=== PATIENT | female | born 1945 | race Caucasian/White ===

== ENCOUNTER → 2017-11-28 10:08 | Outpatient (CLI) | payer MEDICARE, SELFPAY ==
[2017-11-28 13:47] LABS: Albumin, Serum 3.5 g/dL (3.2-5.0); BUN 27 mg/dL (7-18); Chloride 106 mmol/L (98-107); Creatinine, Serum 1.35 mg/dL (0.55-1.02); EST Glomerular Filtration Rate 41 mL/min (>60); Est Glom Filt Rate - Afr Amer 50 mL/min (>60); Glucose 211 mg/dL (74-106); Phosphorus 3.3 mg/dL (2.5-4.9); Potassium 4.2 mmol/L (3.5-5.1); Sodium Level 141 mmol/L (136-145)
[2017-11-28 14:30] LABS: Protein, Urine (Random) 6.1 mg/dL (<11.9); Protein:Creat Ratio 99 mg/g CRE (0-200)
== END ==
PROVIDERS: Family Provider Internal Medicine; PCP Internal Medicine; Visit Provider Internal Medicine Nephrology
DX: E55.9 Vitamin D deficiency, unspecified (principal); I10 Essential (primary) hypertension; R06.02 Shortness of breath; N17.9 Acute kidney failure, unspecified
CPT/HCPCS: 36415; 80069; 82570; 84156

== ENCOUNTER → 2017-12-21 12:50 | Outpatient (CLI) | payer MEDICARE, SELFPAY ==
--- NOTE | 2017-12-21 13:00 | PCM.CR.ITP ---
Exercise - Initial Assessment - Visit Date of Eval: 12/21/17 - Initial Eval - Stages of Change Stages of Change:: Contemplate - Exercise Prescription Mode:: Biodyne, Rower, Airdyne, NuStep, Arm Ergometer Angina with exercise?: Yes Target Heart Rate:: 92-100 - Hypertension Do any of the following apply?: Yes Resting Blood Pressure:: 100/58 - Intervention Home Exercise/Activity Goal:: Sitting Time <3 hrs/day - Education Goals:: Warm-up, RPE JIGAR Scale, S/S, Safe Exercise, Self-Monitoring - Exercise Program Goals Exercise Program Goals: Aerobic Activity >30 min, B/P <140/90 Nutrition - Initial Assessment - Program Goals Nutrition Program Goals: LDL <70. Total Cholesterol <200. HDL >45. Triglycerides <150. HgbA1C <7%. BMI <25 - Visit Date of Assessment:: 12/21/17 - Stages of Change Stages of Change:: Contemplate - Diabetes Diabetes:: Yes - Weight Management Height: 1.56 m Weight:: 113.285 kg Total Score:: 3 - Intervention Referral to dietitian:: No - pt is currently seeing a line service person Referral to Diabetic Clinic:: No Will attend diet classes:: Yes - Education Gave educational materials for:: Signs & symptoms of hypoglycemia, Signs & symptoms of hyperglycemia, Relate diabetes to coronary artery disease, Healthy eating Nutrition - 30-Day Assessment - Program Goals Nutrition Program Goals: LDL <70. Total Cholesterol <200. HDL >45. Triglycerides <150. HgbA1C <7%. BMI <25 - Diabetes Diabetes:: Yes Insulin: No Nutrition - 60-Day Assessment - Program Goals Nutrition Program Goals: LDL <70. Total Cholesterol <200. HDL >45. Triglycerides <150. HgbA1C <7%. BMI <25 - Diabetes Diabetes:: Yes Insulin: No Nutrition - 90-Day Assessment - Program Goals Nutrition Program Goals: LDL <70. Total Cholesterol <200. HDL >45. Triglycerides <150. HgbA1C <7%. BMI <25 - Diabetes Diabetes:: Yes Insulin: No Nutrition - Final Assessment - Program Goals Nutrition Program Goals: LDL <70. Total Cholesterol <200. HDL >45. Triglycerides <150. HgbA1C <7%. BMI <25 - Diabetes Diabetes:: Yes Insulin: No Tobacco - Initial Assessment - Program Goals Tobacco Program Goals: Complete smoking cessation. Attend education classes. Improve Knowledge Test score - Stage of Change Stages of Change:: Contemplate - Learning Barriers Total Score:: 10 - Family Support Do you have family support?: Yes - Tobacco Use How long ago did you quit using tobacco products?: Greater than or equal to 6 months ago Do you use smokeless tobacco?: No - Intervention Smoking Cessation Referral:: No Individual Education/Counseling:: No - Education Gave educational material for:: Tobacco triggers, Coronary artery disease, Risk factors, Sexuality, Medical compliance, Cardiac A&P, Angina signs & symptoms Psychosocial - Initial Assess - Target Goals Target Goals: Assess presence or absence of depression. Using a valid screening tool, maximizes coping skills. Positive support system - Stages of Change Stages of Change:: Contemplate - Psychosocial Test Tool Used:: HANDS Depression Questionnaire Total Mood Screening Score:: 10 Self-Efficacy Score:: 5 - Intervention PS - Interventions: Yes Attend Stress Management Classes, Yes Uses Stress Management Skills, No Referral to Mental Health - Pt is seeking counseling, No Referral to [facility] Case Management, No Referral to Physician - Education Gave educational materials for:: Coping techniques, Signs & symptoms of depression, Stress management, Relaxation techniques - Assistive Devices Assistive Devices:: None Fall Risk Assessed:: Yes Patient Health Questionnaire Initial Assessment 1. Little interest or pleasure in doing things: Not at all 2. Feeling down, depressed, or hopeless: More than half the days 3. Trouble falling or staying asleep, or sleeping too much: Nearly every day 4. Feeling tired or having little energy: Nearly every day 5. Poor appetite or overeating: More than half the days 6. Feeling bad about yourself -- or that you are a failure or have let yourself or your family down: Not at all 7. Trouble concentrating on things, such as reading the newspaper or watching television: Not at all 8. Moving or speaking so slowly that other people could have noticed. Or the opposite - being so fidgety or restless that you have been moving around a lot more than usual: Not at all 9. Thoughts that you would be better off , or of hurting yourself in some way: Not at all How difficult have these problems made it for you to do your work, take care of things at home, or get along with other people?: Not difficult at all Total Score: 10 Knowledge Test - Check your knowledge Initial The #1 cause of in the [place] each year is:: Heart disease Which of the following is a common treatment for heart disease?: All of the above The arteries that feed the heart are called:: Coronary arteries HDL cholesterol is known as the good cholesterol.: True What disease increases your risk for heart disease?: Diabetes What food product raises blood cholesterol level the most?: Saturated fat The bad cholesterol in the blood is called:: LDL Hypertension is another word for:: High blood pressure A blood pressure reading of 148/88 is considered normal.: False Exercise will only benefit your health when your heart rate reaches a target level.: False Total Score:: 10 Self-Efficacy Initial Assessment We would like to know how confident you are in doing certain activities. Please select your confidence level for:: Select your confidence level for the following using the scale 1-10 where 1 is not at all confident and 10 is totally confident. Your score is the average of all 6 responses. Fatigue: How confident are you that you can keep the fatigue caused by your disease from interfering with the things you want to do? Select Number: 1 Physical Discomfort or Pain: How confident are you that you can keep the physical discomfort or pain of your disease from interfering with the things you want to do? Select Number: 9 Emotional Distress: How confident are you that you can keep the emotional distress caused by your disease from interfering with the things you want to do? Select Number: 2 Other Symptoms or Health Problems: How confident are you that you can keep other symptoms or health problems from interfering with the things you want to do? Select Number: 8 Different Tasks and Activities: How confident are you that you can do the different tasks and activities needed to manage your health condition so as to reduce your need to see a doctor? Select Number: 5 Medication: How confident are you that you can do things other than just taking medication to reduce how much your illness affects your everyday life? Select Number: 8 Total Score:: 5 Nutrition Survey - Nutrition Survey Instructions Scoring Instructions: Scoring is as follows: Yes = 1 points. No = 0 point. Patient score that is >/=12 is considered to be at potential nutritional risk and could benefit from a referral to a registered dietitian. - Nutrition Survey Initial Have you lost >10 lbs over the past 2 months without trying?: No Are you following a special diet at home for diabetes, low fat, or low salt?: Yes Are you interested in meeting with a dietitian for help understanding your diet?: Yes Do you eat less than 3 meals a day?: No Do you eat fatty meats (saenz, sausage, ribs, etc), fried foods, desserts, large amounts of salad dressings, margarine, butter, or cheese most days?: No Do you have food allergies? [Enter types in comment field]: No Do you eat in restaurants more than 3 times a week?: No Do you season food with salt, seasoning salt, or garlic salt?: No Do you used canned, boxed, frozen meals, or soups, seasoning packets?: Yes Total Score:: 3 Cardiac Rehabilitation Goals - Cardiac Rehab Goals Cardiac Rehabilitation Goals: 1. Maintain the individual as the primary focus of care. 2. To improve the patient's quality of life. 3. Identification of cardiac risk factors and provide cardiac risk factor management. 4. Enhance the psychosocial status of the patient. 5. Reconditioning enough to allow the patient to resume customary activities. 6. Control symptoms of cardiac disease - Scale Scale for measuring improvement of personal goals: Enter appropriate number in Comments. 2 = Unchanged. 3 = Slightly Better. 4 = Moderate Improvement. 5 = Met my Goal Initial Assessment Personal Goals: 30-day Re-assessment: Improve management of stress and emotions, Improve knowledge of cardiac disease, Improve muscle strength and endurance, Improve diet and eating habits (eat healthier), Control risk factors (learn risk factor modification), Other goal: - walking more
--- NOTE | 2017-12-21 13:00 | PCM.CR.HP2 ---
CR - History & Physical - General Arrival date:: 12/21/17 Arrival time:: 13:01 Date of Referral:: 09/14/17 Date of CR Evaluation:: 12/21/17 Referring Physician: Dr. Mike Go Primary Diagnosis: Current stable angina 09/14/2017 - History of Present Cardiac Event Onset Date: Enter Onset Date of cardiac illnesses in Comment field below Current stable Angina Pectoris:: Yes Coronary Artery Bypass Graft:: No Heart valve replacement or repair:: No - Medications Home Medications: Ambulatory Orders Medication Instructions Recorded Acetaminophen [Tylenol] 650 mg PO Q4H PRN PRN 08/22/14 Ascorbic Acid [Vitamin C] 500 mg PO BIDCM 08/22/14 Aspirin [Aspirin, Baby] 81 mg PO DAILY@0800 08/22/14 DiphenhydrAMINE [Benadryl] 25 mg PO TID PRN PRN 08/22/14 Fish Oil/Dha/Epa [Fish Oil 1,200 1 each PO TID 08/22/14 mg Fish Oil] Fluticasone 0.05% [Flonase Nasal 2 spray NASAL DAILY 08/22/14 [place]] Gabapentin [Neurontin] 600 mg PO BIDCM 08/22/14 Glimepiride [Amaryl] 1 mg PO DAILY PRN 08/22/14 Glimepiride [Amaryl] 2 mg PO QHS PRN 08/22/14 Levothyroxine [Synthroid] 175 mcg PO DAILY 08/22/14 Liraglutide [Victoza] 0.6 mg SQ DAILY 08/22/14 Metformin HCl [Glucophage] 1,000 mg PO BREAKFAST 08/22/14 Metformin HCl [Glucophage] 500 mg PO DINNER 08/22/14 Metoprolol Tartrate [Lopressor 25 mg PO BID 08/22/14 (beta laura)] Multivitamins,Ther W-Minerals 1 tablet PO DAILY 08/22/14 [Multivitamin With Minerals] Niacin [Slo-Niacin] 250 mg PO BID 08/22/14 Nitroglycerin [Nitrostat] 0.4 mg SUBLINGUAL Q5M PRN 08/22/14 Furosemide [Lasix] 40 mg PO BREAKFAST 08/23/14 Metformin(XR) [Glucophage Xr] 500 mg PO QHS 08/23/14 Oxycodone HCl/Acetaminophen 1 - 2 tablet PO Q4H PRN PRN #30 08/27/14 [Percocet 5-325] tablet Ciprofloxacin [Cipro] 250 mg PO BID 09/14/14 - Allergies Allergies/Adverse Reactions: Allergies adhesive Allergy (Verified 09/14/14 18:52) Hives cephalexin monohydrate [From Keflex] Allergy (Verified 09/14/14 18:52) Hives ketorolac tromethamine [From Toradol] Allergy (Verified 09/14/14 18:52) Hives nickel [Nickel] Allergy (Verified 09/14/14 18:52) Other Tpadavh-Mvz-Fhr Reductase Inhibitor Adverse Reaction (Verified 09/14/14 18:52) Other paladium Allergy (Uncoded 09/14/14 18:52) Other - Sleep Disorder Evaluation Hx of Sleep Apnea: Yes Do you snore loudly (louder than talking or can be heard through closed doors)?: Yes - Pt uses machine Do you often feel tired/ fatigued/ sleepy during daytime?: No Has anyone observed you stop breathing during sleep?: Yes History of Hypertension (for STOP score): Yes STOP Results: Positive Pt uses machine Advanced Directives - Advanced Directives Power of Fire Control Mechanic: No Living Will: No Advance Directives Information Provided: No Advance Directives on File: No DNR Order?:: No - MOLST See MOLST form: No Past Medical History - Past Surgical History Surgical History: appendectomy, cholecystectomy, herniorrhaphy, hysterectomy, total knee arthroplasty - right in past, left on 08/18/14. Social History - Smoking History Smoking Status: Former smoker Packs Smoked per Day: 3 Hx Smoking Cessation Date: 1992 Hx Tobacco Use: Yes Hx Smoking Exposure: Yes - Alcohol Use Alcohol Usage: No - Substance Abuse Hx Substance Use: No - Occupation Occupation (List type of work in comments):: Retired - Hobbies, Recreation, Social Activities Hobbies: Other - arts and crafts, photography, travel Recreational Activities: I am able to engage in all my recreational activities Social Environment - Status Marital Status: - Current Living Arrangements Living Environment:: Spouse - Children How many children do you have?: 1 Do any of your children live nearby?: Yes - Safety Do you feel safe in your surroundings?: Yes - Assistance Do you need any assistance at home?: none Review of Systems - Review of Systems Hints: Right click = Denies ([place]). Left click = Reports ([place]) Review of Present Symptoms: Reports: Shortness of Breath at Rest, Angina, Fatigue, Appetite - Normal, Sleep - Normal. Denies: Shortness of Breath with Exertion, PVD, Operative Discomfort, Wound Healing, Dizziness/Lightheadedness, Heart Arrhythmia/Irregularities, Appetite - Special Diet, Sexual Changes - Pain Is Patient Pain Free?: No Pain Location: chest Pain Level: 10 Risk Factor Assessment - Chief Complaint Chief Complaint: CP, SOB - Vital Signs Pulse Ox: 94 Blood Pressure: 100/58 - Pulse Pulse Rate: 90 Pulse Rhythm: Regular - Hypertension Blood Pressure Sitting - Left Arm: 100/58 - Stress Stress: Recent - Diabetes Diabetic History: Type II Nutrition Referral for Diabetes: No - Obesity Height: 1.56 m Weight:: 113.285 kg Weight in Pounds: 249.8 lbs Body Mass Index (BMI): 46.4 Nutritional Referral for Obesity: No - Pt is currently seeing a food processor - Physical Inactivity Physical Inactivity: None Exercise Limitations: bad low back - Risk Stratification Risk Guidelines: Moderate Risk: Risk Factor for Smoking, Risk Factor for Dyslipidemia, Risk Factor for Sedentary Lifestyle, Highest Risk: Risk Factor for Diabetes, Risk Factor for Obesity, Risk Factor for Hypertension, Risk Factor for Depression - For Smoking Smoking Risk Guidelines: Smoking Low Risk: None or quit greater than 6 months ago. Smoking Moderate Risk: Smoker or quit 6 months or less ago. Smoking High Risk: Smoker - For Dyslipidemia Dyslipidemia Risk Guidelines: Low Risk: Moderate Risk: High Risk: 15-25% fat 25.1-29% fat >/= 30% fat. <7% sat fat 7-9% sat fat >9% sat fat. <150 mg chol 150-299 mg chol >/= 300 mg chol. LDL <100 LDL 100-129 LDL >/= 130. Chol/HDL ratio <5.0 Chol/HDL ratio 5.0-6.0 Chol/HDL ratio >6.0. Triglycerides <100 Triglycerides 100-149 Triglycerides >/= 150 - For Diabetes Mellitus Diabetes Risk Guidelines: Diabetes Low Risk: HgA1c <6.5% and/or FBG <120. Diabetes Moderate Risk: HgA1c 6.6-7.9% and/or FBG 120-180. Diabetes High Risk: HgA1c >/= 8% and/or FBG >180 - For Obesity/Overweight Obesity/Overweight Risk Guidelines: Obesity Low Risk: BMI <25.0. Obesity Moderate Risk: BMI 25-29.9. Obesity High Risk: BMI >/= 30.0 - For Hypertension Hypertension Risk Guidelines: Hypertension Low Risk: Systolic <120 and Diastolic <80. Hypertension Moderate Risk: Systolic 120-139 and Diastolic 80-89. Hypertension High Risk: Systolic >/= 140 and Diastolic >/= 90 - For Sedentary Lifestyle Sedentary Lifestyle Risk Guidelines: Sedentary Lifestyle Low Risk: >/= 1,500 kcal/week. Sedentary Lifestyle Moderate Risk: 700-1,499 kcal/week. Sedentary Lifestyle High Risk: < 700 kcal/week - For Depression Depression Risk Guidelines: Depression Low Risk: Not clinically depressed. Depression Moderate Risk: Mildly depressed. Depression High Risk: Clinically depressed Motivation - Motivation to Participate On a scale of 1 to 10, how prepared are you to commit to attending program?: 9 What do you see as barriers to successfully being able to complete the program?: pain What do you see as the benefits of succesfully completing the program? In other words, what do you hope to get out of participating in the program?: better cardiac health, mental stability Are there issues you are dealing with that will interfere with completing the program?: depression Do you have a spouse or signficant other, family or friends who will help support you to complete the program?: yes
--- NOTE | 2017-12-21 13:13 | CR.HP_ITS ---
CR - History & Physical - General Arrival date:: 12/21/17 Arrival time:: 13:01 Date of Referral:: 09/14/17 Date of CR Evaluation:: 12/21/17 Referring Physician: Dr. Mike Go Primary Diagnosis: Current stable angina 09/14/2017 - History of Present Cardiac Event Onset Date: Enter Onset Date of cardiac illnesses in Comment field below Current stable Angina Pectoris:: Yes Coronary Artery Bypass Graft:: No Heart valve replacement or repair:: No - Medications Home Medications: Ambulatory Orders Medication Instructions Recorded Acetaminophen [Tylenol] 650 mg PO Q4H PRN PRN 08/22/14 Ascorbic Acid [Vitamin C] 500 mg PO BIDCM 08/22/14 Aspirin [Aspirin, Baby] 81 mg PO DAILY@0800 08/22/14 DiphenhydrAMINE [Benadryl] 25 mg PO TID PRN PRN 08/22/14 Fish Oil/Dha/Epa [Fish Oil 1,200 1 each PO TID 08/22/14 mg Fish Oil] Fluticasone 0.05% [Flonase Nasal 2 spray NASAL DAILY 08/22/14 [place]] Gabapentin [Neurontin] 600 mg PO BIDCM 08/22/14 Glimepiride [Amaryl] 1 mg PO DAILY PRN 08/22/14 Glimepiride [Amaryl] 2 mg PO QHS PRN 08/22/14 Levothyroxine [Synthroid] 175 mcg PO DAILY 08/22/14 Liraglutide [Victoza] 0.6 mg SQ DAILY 08/22/14 Metformin HCl [Glucophage] 1,000 mg PO BREAKFAST 08/22/14 Metformin HCl [Glucophage] 500 mg PO DINNER 08/22/14 Metoprolol Tartrate [Lopressor 25 mg PO BID 08/22/14 (beta laura)] Multivitamins,Ther W-Minerals 1 tablet PO DAILY 08/22/14 [Multivitamin With Minerals] Niacin [Slo-Niacin] 250 mg PO BID 08/22/14 Nitroglycerin [Nitrostat] 0.4 mg SUBLINGUAL Q5M PRN 08/22/14 Furosemide [Lasix] 40 mg PO BREAKFAST 08/23/14 Metformin(XR) [Glucophage Xr] 500 mg PO QHS 08/23/14 Oxycodone HCl/Acetaminophen 1 - 2 tablet PO Q4H PRN PRN #30 08/27/14 [Percocet 5-325] tablet Ciprofloxacin [Cipro] 250 mg PO BID 09/14/14 - Allergies Allergies/Adverse Reactions: Allergies adhesive Allergy (Verified 09/14/14 18:52) Hives cephalexin monohydrate [From Keflex] Allergy (Verified 09/14/14 18:52) Hives ketorolac tromethamine [From Toradol] Allergy (Verified 09/14/14 18:52) Hives nickel [Nickel] Allergy (Verified 09/14/14 18:52) Other Whcywbh-Ywk-Cys Reductase Inhibitor Adverse Reaction (Verified 09/14/14 18:52) Other paladium Allergy (Uncoded 09/14/14 18:52) Other - Sleep Disorder Evaluation Hx of Sleep Apnea: Yes Do you snore loudly (louder than talking or can be heard through closed doors)? : Yes - Pt uses machine Do you often feel tired/ fatigued/ sleepy during daytime?: No Has anyone observed you stop breathing during sleep?: Yes History of Hypertension (for STOP score): Yes STOP Results: Positive Pt uses machine Advanced Directives - Advanced Directives Power of Surgery Manager: No Living Will: No Advance Directives Information Provided: No Advance Directives on File: No DNR Order?:: No - MOLST See MOLST form: No Past Medical History - Past Surgical History Surgical History: appendectomy, cholecystectomy, herniorrhaphy, hysterectomy, total knee arthroplasty - right in past, left on 08/18/14. Social History - Smoking History Smoking Status: Former smoker Packs Smoked per Day: 3 Hx Smoking Cessation Date: 1992 Hx Tobacco Use: Yes Hx Smoking Exposure: Yes - Alcohol Use Alcohol Usage: No - Substance Abuse Hx Substance Use: No - Occupation Occupation (List type of work in comments):: Retired - Hobbies, Recreation, Social Activities Hobbies: Other - arts and crafts, photography, travel Recreational Activities: I am able to engage in all my recreational activities Social Environment - Status Marital Status: - Current Living Arrangements Living Environment:: Spouse - Children How many children do you have?: 1 Do any of your children live nearby?: Yes - Safety Do you feel safe in your surroundings?: Yes - Assistance Do you need any assistance at home?: none Review of Systems - Review of Systems Hints: Right click = Denies ([place]). Left click = Reports ([place]) Review of Present Symptoms: Reports: Shortness of Breath at Rest, Angina, Fatigue, Appetite - Normal, Sleep - Normal. Denies: Shortness of Breath with Exertion, PVD, Operative Discomfort, Wound Healing, Dizziness/Lightheadedness, Heart Arrhythmia/Irregularities, Appetite - Special Diet, Sexual Changes - Pain Is Patient Pain Free?: No Pain Location: chest Pain Level: 10 Risk Factor Assessment - Chief Complaint Chief Complaint: CP, SOB - Vital Signs Pulse Ox: 94 Blood Pressure: 100/58 - Pulse Pulse Rate: 90 Pulse Rhythm: Regular - Hypertension Blood Pressure Sitting - Left Arm: 100/58 - Stress Stress: Recent - Diabetes Diabetic History: Type II Nutrition Referral for Diabetes: No - Obesity Height: 1.56 m Weight:: 113.285 kg Weight in Pounds: 249.8 lbs Body Mass Index (BMI): 46.4 Nutritional Referral for Obesity: No - Pt is currently seeing a senior network administrator - Physical Inactivity Physical Inactivity: None Exercise Limitations: bad low back - Risk Stratification Risk Guidelines: Moderate Risk: Risk Factor for Smoking, Risk Factor for Dyslipidemia, Risk Factor for Sedentary Lifestyle, Highest Risk: Risk Factor for Diabetes, Risk Factor for Obesity, Risk Factor for Hypertension, Risk Factor for Depression - For Smoking Smoking Risk Guidelines: Smoking Low Risk: None or quit greater than 6 months ago. Smoking Moderate Risk: Smoker or quit 6 months or less ago. Smoking High Risk: Smoker - For Dyslipidemia Dyslipidemia Risk Guidelines: Low Risk: Moderate Risk: High Risk: 15-25% fat 25.1-29% fat >/= 30% fat. <7% sat fat 7-9% sat fat >9% sat fat. <150 mg chol 150-299 mg chol >/= 300 mg chol. LDL <100 LDL 100-129 LDL >/= 130. Chol/HDL ratio <5.0 Chol/HDL ratio 5.0-6.0 Chol/HDL ratio >6.0. Triglycerides <100 Triglycerides 100-149 Triglycerides >/= 150 - For Diabetes Mellitus Diabetes Risk Guidelines: Diabetes Low Risk: HgA1c <6.5% and/or FBG <120. Diabetes Moderate Risk: HgA1c 6.6-7.9% and/or FBG 120-180. Diabetes High Risk: HgA1c >/= 8% and/or FBG >180 - For Obesity/Overweight Obesity/Overweight Risk Guidelines: Obesity Low Risk: BMI <25.0. Obesity Moderate Risk: BMI 25-29.9. Obesity High Risk: BMI >/= 30.0 - For Hypertension Hypertension Risk Guidelines: Hypertension Low Risk: Systolic <120 and Diastolic <80. Hypertension Moderate Risk: Systolic 120-139 and Diastolic 80-89. Hypertension High Risk: Systolic >/= 140 and Diastolic >/= 90 - For Sedentary Lifestyle Sedentary Lifestyle Risk Guidelines: Sedentary Lifestyle Low Risk: >/= 1 ,500 kcal/week. Sedentary Lifestyle Moderate Risk: 700-1,499 kcal/week. Sedentary Lifestyle High Risk: < 700 kcal/week - For Depression Depression Risk Guidelines: Depression Low Risk: Not clinically depressed. Depression Moderate Risk: Mildly depressed. Depression High Risk: Clinically depressed Motivation - Motivation to Participate On a scale of 1 to 10, how prepared are you to commit to attending program?: 9 What do you see as barriers to successfully being able to complete the program? : pain What do you see as the benefits of succesfully completing the program? In other words, what do you hope to get out of participating in the program?: better cardiac health, mental stability Are there issues you are dealing with that will interfere with completing the program?: depression Do you have a spouse or signficant other, family or friends who will help support you to complete the program?: yes
[2017-12-21 14:11] VITALS: BP 100/58
[2017-12-21 14:15] VITALS: BP 100/58; PULSE 90; O2SAT 94; BMI 46.4
== END ==
PROVIDERS: Family Provider Internal Medicine; PCP Internal Medicine; Visit Provider Internal Medicine Cardiovascular Disease
DX: I20.9 Angina pectoris, unspecified (principal); I10 Essential (primary) hypertension; E11.9 Type 2 diabetes mellitus without complications; Z87.891 Personal history of nicotine dependence; Z90.89 Acquired absence of other organs; Z90.49 Acquired absence of other specified parts of digestive tract; Z90.710 Acquired absence of both cervix and uterus; Z96.651 Presence of right artificial knee joint; Z79.82 Long term (current) use of aspirin; Z79.84 Long term (current) use of oral hypoglycemic drugs; Z79.899 Other long term (current) drug therapy

== ENCOUNTER 2018-01-01 10:00 | Outpatient (RCR) | payer MEDICARE, SELFPAY | END 2018-01-07 23:59 | LOC: DC 10:00 | PROVIDERS: Family Provider Internal Medicine; PCP Internal Medicine; Visit Provider Internal Medicine Nephrology | DX: E11.9 Type 2 diabetes mellitus without complications (principal); I12.9 Hypertensive chronic kidney disease with stage 1 through stage 4 chronic kidney disease, or unspecified chronic kidney disease; N18.3 Chronic kidney disease, stage 3 (moderate); I25.10 Atherosclerotic heart disease of native coronary artery without angina pectoris; R60.9 Edema, unspecified; E66.9 Obesity, unspecified; Z71.3 Dietary counseling and surveillance | CPT/HCPCS: 97802; G0108 ==

== ENCOUNTER 2018-01-07 13:00 | Outpatient (RCR) | payer MEDICARE, SELFPAY ==
--- NOTE | 2017-12-31 15:01 | PCM.CR.ITP ---
General Information - General Information Admitting Diagnosis: current stable angina - Education/Goals Barriers to Learning: None Individual Counselin-Day Assessment: Abnormal Cholesterol Levels, High Blood Pressure, Overweight/Obesity, Diabetes - seeing machine ii trimmer Cardiac Rehabilitation Goals: 1. Maintain the individual as the primary focus of care. 2. To improve the patient's quality of life. 3. Identification of cardiac risk factors and provide cardiac risk factor management. 4. Enhance the psychosocial status of the patient. 5. Reconditioning enough to allow the patient to resume customary activities. 6. Control symptoms of cardiac disease Scale for measuring improvement of personal goals: Enter appropriate number in Comments. 2 = Unchanged. 3 = Slightly Better. 4 = Moderate Improvement. 5 = Met my Goal Personal Goals: 30-day Re-assessment: Improve management of stress and emotions, Improve energy level, Participate in home exercise program, Improve muscle strength and endurance, Improve diet and eating habits (eat healthier) Exercise - 30-day Assessment - Visit Date of Eval: 12/31/17 Session #:: 2 - Stages of Change Stages of Change:: Action - Exercise Prescription Mode:: Treadmill, NuStep Frequency (x/week): 3 Duration:: 30 METs - Progression: 0.5-1 MET as tolerated: 2.1 Target Heart Rate:: 92-100 Max HR 104 - Hypertension Resting Blood Pressure:: 92/50 Peak Exercise Blood Pressure:: 128/50 Medication Changes:: No - Intervention Home Exercise/Activity Goal:: Sitting Time <3 hrs/day - Education Goals:: Warm-up, RPE JIGAR Scale, S/S, Safe Exercise, Self-Monitoring - Exercise Program Goals Exercise Program Goals: Aerobic Activity >30 min, B/P <140/90 Nutrition - 30-Day Assessment - Program Goals Nutrition Program Goals: LDL <70. Total Cholesterol <200. HDL >45. Triglycerides <150. HgbA1C <7%. BMI <25 - Visit Date of Eval: 12/31/17 - Stages of Change Stages of Change:: Action - Lipids Has the patient seen the dietitian?: Yes - sofiy seeing machine ii trimmer - Diabetes Diabetes:: Yes - Weight Management Weight:: 109.543 kg - Intervention Referral to dietitian:: No Referral to Diabetic Clinic:: No Will attend diet classes:: Yes - Education Attended class for:: Signs & symptoms of hypoglycemia, Signs & symptoms of hyperglycemia, Relate diabetes to coronary artery disease, Healthy eating Tobacco - 30-Day Assessment - Program Goals Tobacco Program Goals: Complete smoking cessation. Attend education classes. Improve Knowledge Test score - Stage of Change Stages of Change:: Action - Learning Barriers Learning Barriers: Participates in education - Family Support Do you have family support?: Yes - Tobacco Use Tobacco Use: Non-smoker Do you use smokeless tobacco?: No - Intervention Smoking Cessation Referral:: No Individual Education/Counseling:: No Education Schedule Given:: Yes - Education Attended class for:: Tobacco triggers, Coronary artery disease, Risk factors, Sexuality, Medical compliance, Cardiac A&P, Angina signs & symptoms Psychosocial - Initial Assess - Target Goals Target Goals: Assess presence or absence of depression. Using a valid screening tool, maximizes coping skills. Positive support system - Psychosocial Test Tool Used:: HANDS Depression Questionnaire - Assistive Devices Fall Risk Assessed:: Yes Psychosocial - 30-Day Assess - Target Goals Target Goals: Assess presence or absence of depression. Using a valid screening tool, maximizes coping skills. Positive support system - Stages of Change Stages of Change:: Action - Psychosocial Test Tool Used:: HANDS Depression Questionnaire - Intervention PS - Interventions: Yes Attend Stress Management Classes, Yes Uses Stress Management Skills, No Referral to Mental Health, No Referral to [facility] Case Management, No Referral to Physician - Education Attended classes for:: Coping techniques, Signs & symptoms of depression, Stress management, Relaxation techniques - Assistive Devices Assistive Devices:: None Fall Risk Assessed:: Yes Patient Health Questionnaire 30-Day Re-eval Assessment 1. Little interest or pleasure in doing things: Not at all 2. Feeling down, depressed, or hopeless: More than half the days 3. Trouble falling or staying asleep, or sleeping too much: Nearly every day 4. Feeling tired or having little energy: Nearly every day 5. Poor appetite or overeating: More than half the days 6. Feeling bad about yourself -- or that you are a failure or have let yourself or your family down: Not at all 7. Trouble concentrating on things, such as reading the newspaper or watching television: Not at all 8. Moving or speaking so slowly that other people could have noticed. Or the opposite - being so fidgety or restless that you have been moving around a lot more than usual: Not at all 9. Thoughts that you would be better off , or of hurting yourself in some way: Not at all How difficult have these problems made it for you to do your work, take care of things at home, or get along with other people?: Not difficult at all Total Score: 10 Self-Efficacy 30-Day Re-eval Assessment We would like to know how confident you are in doing certain activities. Please select your confidence level for:: Select your confidence level for the following using the scale 1-10 where 1 is not at all confident and 10 is totally confident. Your score is the average of all 6 responses. Fatigue: How confident are you that you can keep the fatigue caused by your disease from interfering with the things you want to do? Select Number: 1 Physical Discomfort or Pain: How confident are you that you can keep the physical discomfort or pain of your disease from interfering with the things you want to do? Select Number: 9 Emotional Distress: How confident are you that you can keep the emotional distress caused by your disease from interfering with the things you want to do? Select Number: 2 Other Symptoms or Health Problems: How confident are you that you can keep other symptoms or health problems from interfering with the things you want to do? Select Number: 8 Different Tasks and Activities: How confident are you that you can do the different tasks and activities needed to manage your health condition so as to reduce your need to see a doctor? Select Number: 5 Medication: How confident are you that you can do things other than just taking medication to reduce how much your illness affects your everyday life? Select Number: 8 Total Score:: 5
[2017-12-31 15:11] VITALS: BP 128/50; BP 92/50
--- NOTE | 2017-12-31 15:12 | CR.ITP_ITS ---
General Information - General Information Admitting Diagnosis: current stable angina - Education/Goals Barriers to Learning: None Individual Counselin-Day Assessment: Abnormal Cholesterol Levels, High Blood Pressure, Overweight/Obesity, Diabetes - seeing radiology specialist Cardiac Rehabilitation Goals: 1. Maintain the individual as the primary focus of care. 2. To improve the patient's quality of life. 3. Identification of cardiac risk factors and provide cardiac risk factor management. 4. Enhance the psychosocial status of the patient. 5. Reconditioning enough to allow the patient to resume customary activities. 6. Control symptoms of cardiac disease Scale for measuring improvement of personal goals: Enter appropriate number in Comments. 2 = Unchanged. 3 = Slightly Better. 4 = Moderate Improvement. 5 = Met my Goal Personal Goals: 30-day Re-assessment: Improve management of stress and emotions , Improve energy level, Participate in home exercise program, Improve muscle strength and endurance, Improve diet and eating habits (eat healthier) Exercise - 30-day Assessment - Visit Date of Eval: 12/31/17 Session #:: 2 - Stages of Change Stages of Change:: Action - Exercise Prescription Mode:: Treadmill, NuStep Frequency (x/week): 3 Duration:: 30 METs - Progression: 0.5-1 MET as tolerated: 2.1 Target Heart Rate:: 92-100 Max HR 104 - Hypertension Resting Blood Pressure:: 92/50 Peak Exercise Blood Pressure:: 128/50 Medication Changes:: No - Intervention Home Exercise/Activity Goal:: Sitting Time <3 hrs/day - Education Goals:: Warm-up, RPE JIGAR Scale, S/S, Safe Exercise, Self-Monitoring - Exercise Program Goals Exercise Program Goals: Aerobic Activity >30 min, B/P <140/90 Nutrition - 30-Day Assessment - Program Goals Nutrition Program Goals: LDL <70. Total Cholesterol <200. HDL >45. Triglycerides <150. HgbA1C <7%. BMI <25 - Visit Date of Eval: 12/31/17 - Stages of Change Stages of Change:: Action - Lipids Has the patient seen the dietitian?: Yes - sofiy seeing radiology specialist - Diabetes Diabetes:: Yes - Weight Management Weight:: 109.543 kg - Intervention Referral to dietitian:: No Referral to Diabetic Clinic:: No Will attend diet classes:: Yes - Education Attended class for:: Signs & symptoms of hypoglycemia, Signs & symptoms of hyperglycemia, Relate diabetes to coronary artery disease, Healthy eating Tobacco - 30-Day Assessment - Program Goals Tobacco Program Goals: Complete smoking cessation. Attend education classes. Improve Knowledge Test score - Stage of Change Stages of Change:: Action - Learning Barriers Learning Barriers: Participates in education - Family Support Do you have family support?: Yes - Tobacco Use Tobacco Use: Non-smoker Do you use smokeless tobacco?: No - Intervention Smoking Cessation Referral:: No Individual Education/Counseling:: No Education Schedule Given:: Yes - Education Attended class for:: Tobacco triggers, Coronary artery disease, Risk factors, Sexuality, Medical compliance, Cardiac A&P, Angina signs & symptoms Psychosocial - Initial Assess - Target Goals Target Goals: Assess presence or absence of depression. Using a valid screening tool, maximizes coping skills. Positive support system - Psychosocial Test Tool Used:: HANDS Depression Questionnaire - Assistive Devices Fall Risk Assessed:: Yes Psychosocial - 30-Day Assess - Target Goals Target Goals: Assess presence or absence of depression. Using a valid screening tool, maximizes coping skills. Positive support system - Stages of Change Stages of Change:: Action - Psychosocial Test Tool Used:: HANDS Depression Questionnaire - Intervention PS - Interventions: Yes Attend Stress Management Classes, Yes Uses Stress Management Skills, No Referral to Mental Health, No Referral to [facility] Case Management, No Referral to Physician - Education Attended classes for:: Coping techniques, Signs & symptoms of depression, Stress management, Relaxation techniques - Assistive Devices Assistive Devices:: None Fall Risk Assessed:: Yes Patient Health Questionnaire 30-Day Re-eval Assessment 1. Little interest or pleasure in doing things: Not at all 2. Feeling down, depressed, or hopeless: More than half the days 3. Trouble falling or staying asleep, or sleeping too much: Nearly every day 4. Feeling tired or having little energy: Nearly every day 5. Poor appetite or overeating: More than half the days 6. Feeling bad about yourself -- or that you are a failure or have let yourself or your family down: Not at all 7. Trouble concentrating on things, such as reading the newspaper or watching television: Not at all 8. Moving or speaking so slowly that other people could have noticed. Or the opposite - being so fidgety or restless that you have been moving around a lot more than usual: Not at all 9. Thoughts that you would be better off , or of hurting yourself in some way: Not at all How difficult have these problems made it for you to do your work, take care of things at home, or get along with other people?: Not difficult at all Total Score: 10 Self-Efficacy 30-Day Re-eval Assessment We would like to know how confident you are in doing certain activities. Please select your confidence level for:: Select your confidence level for the following using the scale 1-10 where 1 is not at all confident and 10 is totally confident. Your score is the average of all 6 responses. Fatigue: How confident are you that you can keep the fatigue caused by your disease from interfering with the things you want to do? Select Number: 1 Physical Discomfort or Pain: How confident are you that you can keep the physical discomfort or pain of your disease from interfering with the things you want to do? Select Number: 9 Emotional Distress: How confident are you that you can keep the emotional distress caused by your disease from interfering with the things you want to do? Select Number: 2 Other Symptoms or Health Problems: How confident are you that you can keep other symptoms or health problems from interfering with the things you want to do? Select Number: 8 Different Tasks and Activities: How confident are you that you can do the different tasks and activities needed to manage your health condition so as to reduce your need to see a doctor? Select Number: 5 Medication: How confident are you that you can do things other than just taking medication to reduce how much your illness affects your everyday life? Select Number: 8 Total Score:: 5
== END 2018-01-07 23:59 ==
LOC: CR 13:00
PROVIDERS: Family Provider Internal Medicine; PCP Internal Medicine; Visit Provider Internal Medicine Cardiovascular Disease
DX: I20.8 Other forms of angina pectoris (principal)
CPT/HCPCS: 93798

== ENCOUNTER 2018-01-31 14:00 | Outpatient (RCR) | payer MEDICARE, SELFPAY | END 2018-02-07 23:59 | LOC: DC 14:00 | PROVIDERS: Family Provider Internal Medicine; PCP Internal Medicine; Visit Provider Internal Medicine Nephrology | DX: E11.9 Type 2 diabetes mellitus without complications (principal); I12.9 Hypertensive chronic kidney disease with stage 1 through stage 4 chronic kidney disease, or unspecified chronic kidney disease; N18.3 Chronic kidney disease, stage 3 (moderate); I25.10 Atherosclerotic heart disease of native coronary artery without angina pectoris; R60.9 Edema, unspecified; E66.9 Obesity, unspecified; Z71.3 Dietary counseling and surveillance | CPT/HCPCS: 97803; G0108 ==

== ENCOUNTER 2018-02-06 13:00 | Outpatient (RCR) | payer MEDICARE, SELFPAY ==
[2018-01-08 01:11] VITALS: BP 128/50; BP 92/50
[2018-01-30 11:45] VITALS: BP 110/60; BP 128/50
--- NOTE | 2018-01-30 11:46 | CR.ITP_ITS ---
General Information - General Information Admitting Diagnosis: current stable angina - Education/Goals Barriers to Learning: None Individual Counselin-Day Assessment: Abnormal Cholesterol Levels, High Blood Pressure, Diabetes Cardiac Rehabilitation Goals: 1. Maintain the individual as the primary focus of care. 2. To improve the patient's quality of life. 3. Identification of cardiac risk factors and provide cardiac risk factor management. 4. Enhance the psychosocial status of the patient. 5. Reconditioning enough to allow the patient to resume customary activities. 6. Control symptoms of cardiac disease Scale for measuring improvement of personal goals: Enter appropriate number in Comments. 2 = Unchanged. 3 = Slightly Better. 4 = Moderate Improvement. 5 = Met my Goal Personal Goals: 60-day Re-assessment: Improve management of stress and emotions , Improve energy level, Participate in home exercise program, Improve muscle strength and endurance, Control risk factors (learn risk factor modification) Exercise - 60-Day Assessment - Visit Date of Eval: 01/30/18 Session #:: 12 - Stages of Change Stages of Change:: Contemplate - Exercise Prescription Mode:: Treadmill, NuStep Frequency (x/week): 3 - 52% MET increase Duration:: 30 METs: 3.2 Target Heart Rate:: 112-120 Max HR 111 - Hypertension Resting Blood Pressure:: 110/60 Peak Exercise Blood Pressure:: 128/50 - Intervention Home Exercise/Activity Goal:: Sitting Time <3 hrs/day - Education Goals:: Warm-up, RPE JIGAR Scale, S/S, Self-Monitoring - Exercise Program Goals Exercise Program Goals: Aerobic Activity >30 min, B/P <130/80 Nutrition - 60-Day Assessment - Program Goals Nutrition Program Goals: LDL <70. Total Cholesterol <200. HDL >45. Triglycerides <150. HgbA1C <7%. BMI <25 - Visit Date of Eval: 01/30/18 - Stages of Change Stages of Change:: Contemplate - Lipids Has the patient seen the dietitian?: No - referred - Diabetes Diabetes:: Yes - Weight Management Weight:: 112.718 kg - Intervention Referral to dietitian:: Yes Referral to Diabetic Clinic:: Yes Will attend diet classes:: Yes - Education Attended class for:: Signs & symptoms of hypoglycemia, Signs & symptoms of hyperglycemia, Relate diabetes to coronary artery disease, Healthy eating Tobacco - 60-Day Assessment - Program Goals Tobacco Program Goals: Complete smoking cessation. Attend education classes. Improve Knowledge Test score - Stage of Change Stages of Change:: Contemplate - Learning Barriers Learning Barriers: Participates in education - Family Support Do you have family support?: Yes - Tobacco Use Tobacco Use: Non-smoker Do you use smokeless tobacco?: No - Intervention Smoking Cessation Referral:: No Individual Education/Counseling:: No Education Schedule Given:: Yes - Education Attended class for:: Tobacco triggers, Coronary artery disease, Risk factors, Sexuality, Medical compliance, Cardiac A&P, Angina signs & symptoms Psychosocial - Initial Assess - Target Goals Target Goals: Assess presence or absence of depression. Using a valid screening tool, maximizes coping skills. Positive support system - Psychosocial Test Tool Used:: HANDS Depression Questionnaire - Assistive Devices Fall Risk Assessed:: Yes Psychosocial - 60-Day Assess - Target Goals Target Goals: Assess presence or absence of depression. Using a valid screening tool, maximizes coping skills. Positive support system - Stages of Change Stages of Change:: Contemplate - Psychosocial Test Tool Used:: HANDS Depression Questionnaire - Intervention PS - Interventions: Yes Attend Stress Management Classes, Yes Uses Stress Management Skills, No Referral to Mental Health, No Referral to [facility] Case Management, No Referral to Physician - Education Attended classes for:: Coping techniques, Signs & symptoms of depression, Stress management, Relaxation techniques - Assistive Devices Assistive Devices:: None Fall Risk Assessed:: Yes Patient Health Questionnaire 60-Day Re-eval Assessment 1. Little interest or pleasure in doing things: Not at all 2. Feeling down, depressed, or hopeless: More than half the days 3. Trouble falling or staying asleep, or sleeping too much: Nearly every day 4. Feeling tired or having little energy: Nearly every day 5. Poor appetite or overeating: More than half the days 6. Feeling bad about yourself -- or that you are a failure or have let yourself or your family down: Not at all 7. Trouble concentrating on things, such as reading the newspaper or watching television: Not at all 8. Moving or speaking so slowly that other people could have noticed. Or the opposite - being so fidgety or restless that you have been moving around a lot more than usual: Not at all 9. Thoughts that you would be better off , or of hurting yourself in some way: Not at all How difficult have these problems made it for you to do your work, take care of things at home, or get along with other people?: Not difficult at all Total Score: 10 Self-Efficacy 60-Day Re-eval Assessment We would like to know how confident you are in doing certain activities. Please select your confidence level for:: Select your confidence level for the following using the scale 1-10 where 1 is not at all confident and 10 is totally confident. Your score is the average of all 6 responses. Fatigue: How confident are you that you can keep the fatigue caused by your disease from interfering with the things you want to do? Select Number: 1 Physical Discomfort or Pain: How confident are you that you can keep the physical discomfort or pain of your disease from interfering with the things you want to do? Select Number: 9 Emotional Distress: How confident are you that you can keep the emotional distress caused by your disease from interfering with the things you want to do? Select Number: 3 Other Symptoms or Health Problems: How confident are you that you can keep other symptoms or health problems from interfering with the things you want to do? Select Number: 8 Different Tasks and Activities: How confident are you that you can do the different tasks and activities needed to manage your health condition so as to reduce your need to see a doctor? Select Number: 6 Medication: How confident are you that you can do things other than just taking medication to reduce how much your illness affects your everyday life? Select Number: 8 Total Score:: 5
== END 2018-02-07 23:59 ==
LOC: CR 13:00
PROVIDERS: Family Provider Internal Medicine; PCP Internal Medicine; Visit Provider Internal Medicine Cardiovascular Disease
DX: I20.8 Other forms of angina pectoris (principal)
CPT/HCPCS: 93798

== ENCOUNTER 2018-03-06 10:30 | Outpatient (RCR) | payer MEDICARE, SELFPAY ==
--- NOTE | 2018-02-18 13:46 | DT_ITS ---
This patient was seen during an EMR downtime February 11, 2018 - February 18, 2018. This patient may have a combination of paper and electronic documentation or all paper documentation. All documentation is viewable within the e-chart portion of [facility] for each patient visit.
== END 2018-03-09 23:59 ==
LOC: DC 10:30
PROVIDERS: Family Provider Internal Medicine; PCP Internal Medicine; Visit Provider Internal Medicine Nephrology
DX: E11.9 Type 2 diabetes mellitus without complications (principal); I12.9 Hypertensive chronic kidney disease with stage 1 through stage 4 chronic kidney disease, or unspecified chronic kidney disease; N18.3 Chronic kidney disease, stage 3 (moderate); I25.10 Atherosclerotic heart disease of native coronary artery without angina pectoris; R60.9 Edema, unspecified; E66.9 Obesity, unspecified; Z71.3 Dietary counseling and surveillance
CPT/HCPCS: 97803; G0108

== ENCOUNTER 2018-03-08 13:00 | Outpatient (RCR) | payer MEDICARE, SELFPAY ==
[2018-02-08 00:58] VITALS: BP 110/60; BP 128/50
[2018-03-01 11:39] VITALS: BP 118/62; BP 120/60
--- NOTE | 2018-03-01 11:40 | CR.ITP_ITS ---
General Information - General Information Admitting Diagnosis: current stable angina - Education/Goals Individual Counseling: Discharge Assessment: Abnormal Cholesterol Levels, High Blood Pressure, Diabetes Cardiac Rehabilitation Goals: 1. Maintain the individual as the primary focus of care. 2. To improve the patient's quality of life. 3. Identification of cardiac risk factors and provide cardiac risk factor management. 4. Enhance the psychosocial status of the patient. 5. Reconditioning enough to allow the patient to resume customary activities. 6. Control symptoms of cardiac disease Scale for measuring improvement of personal goals: Enter appropriate number in Comments. 2 = Unchanged. 3 = Slightly Better. 4 = Moderate Improvement. 5 = Met my Goal Personal Goals: Discharge Reassessment: Improve management of stress and emotions, Improve energy level, Improve muscle strength and endurance Exercise - 90-Day Assessment - Visit Date of Eval: 03/01/18 Session #:: 17 - 77.78% compliance - Stages of Change Stages of Change:: Action - Exercise Prescription Mode:: Treadmill, NuStep Frequency (x/week): 3 Duration:: 30 METs: 4 90% increase Target Heart Rate:: 112-120 max 124 - Hypertension Resting Blood Pressure:: 118/62 Peak Exercise Blood Pressure:: 120/60 Medication Changes:: No - Intervention Home Exercise/Activity Goal:: Sitting Time <3 hrs/day - Education Goals:: Warm-up, RPE JIGAR Scale, S/S, Safe Exercise, Self-Monitoring - Exercise Program Goals Exercise Program Goals: Aerobic Activity >30 min, B/P <130/80 Nutrition - 90-Day Assessment - Program Goals Nutrition Program Goals: LDL <70. Total Cholesterol <200. HDL >45. Triglycerides <150. HgbA1C <7%. BMI <25 - Visit Date of Eval: 03/01/18 - Stages of Change Stages of Change:: Action - Lipids Has the patient seen the dietitian?: No - Diabetes Diabetes:: Yes - Weight Management Weight:: 111.584 kg - Intervention Will attend diet classes:: Yes - Education Attended class for:: Signs & symptoms of hypoglycemia, Signs & symptoms of hyperglycemia, Relate diabetes to coronary artery disease, Healthy eating Tobacco - 90-Day Assessment - Program Goals Tobacco Program Goals: Complete smoking cessation. Attend education classes. Improve Knowledge Test score - Stage of Change Stages of Change:: Action - Learning Barriers Learning Barriers: Participates in education - Family Support Do you have family support?: Yes - Tobacco Use Tobacco Use: Non-smoker Do you use smokeless tobacco?: No - Intervention Smoking Cessation Referral:: No Individual Education/Counseling:: No Education Schedule Given:: Yes - Education Attended class for:: Tobacco triggers, Coronary artery disease, Risk factors, Sexuality, Medical compliance, Cardiac A&P, Angina signs & symptoms Psychosocial - 90-Day Assess - Target Goals Target Goals: Assess presence or absence of depression. Using a valid screening tool, maximizes coping skills. Positive support system - Stages of Change Stages of Change:: Action - Psychosocial Test Tool Used:: HANDS Depression Questionnaire - Intervention PS - Interventions: Yes Attend Stress Management Classes, Yes Uses Stress Management Skills, No Referral to Mental Health, No Referral to [facility] Case Management, No Referral to Physician - Education Attended classes for:: Coping techniques, Signs & symptoms of depression, Stress management, Relaxation techniques - Assistive Devices Assistive Devices:: None Fall Risk Assessed:: Yes Patient Health Questionnaire 90-Day Re-eval Assessment 1. Little interest or pleasure in doing things: Not at all 2. Feeling down, depressed, or hopeless: Several days 3. Trouble falling or staying asleep, or sleeping too much: More than half the days 4. Feeling tired or having little energy: More than half the days 5. Poor appetite or overeating: More than half the days 6. Feeling bad about yourself -- or that you are a failure or have let yourself or your family down: Not at all 7. Trouble concentrating on things, such as reading the newspaper or watching television: Not at all 8. Moving or speaking so slowly that other people could have noticed. Or the opposite - being so fidgety or restless that you have been moving around a lot more than usual: Not at all 9. Thoughts that you would be better off , or of hurting yourself in some way: Not at all How difficult have these problems made it for you to do your work, take care of things at home, or get along with other people?: Not difficult at all Total Score: 7 Self-Efficacy 90-Day Re-eval Assessment We would like to know how confident you are in doing certain activities. Please select your confidence level for:: Select your confidence level for the following using the scale 1-10 where 1 is not at all confident and 10 is totally confident. Your score is the average of all 6 responses. Fatigue: How confident are you that you can keep the fatigue caused by your disease from interfering with the things you want to do? Select Number: 3 Physical Discomfort or Pain: How confident are you that you can keep the physical discomfort or pain of your disease from interfering with the things you want to do? Select Number: 9 Emotional Distress: How confident are you that you can keep the emotional distress caused by your disease from interfering with the things you want to do? Select Number: 5 Other Symptoms or Health Problems: How confident are you that you can keep other symptoms or health problems from interfering with the things you want to do? Select Number: 8 Different Tasks and Activities: How confident are you that you can do the different tasks and activities needed to manage your health condition so as to reduce your need to see a doctor? Select Number: 7 Medication: How confident are you that you can do things other than just taking medication to reduce how much your illness affects your everyday life? Select Number: 8 Total Score:: 6
== END 2018-03-09 23:59 ==
LOC: CR 13:00
PROVIDERS: Family Provider Internal Medicine; PCP Internal Medicine; Visit Provider Internal Medicine Cardiovascular Disease
DX: I20.9 Angina pectoris, unspecified (principal); E11.9 Type 2 diabetes mellitus without complications; I21.9 Acute myocardial infarction, unspecified; N18.3 Chronic kidney disease, stage 3 (moderate); I25.10 Atherosclerotic heart disease of native coronary artery without angina pectoris; R60.9 Edema, unspecified; E66.9 Obesity, unspecified; Z71.3 Dietary counseling and surveillance
CPT/HCPCS: 93798; 97803; G0108

== ENCOUNTER → 2018-03-27 13:58 | Outpatient (CLI) | payer MEDICARE, SELFPAY ==
[2018-03-27 15:09] LABS: Hematocrit 34.3 % (37-47); Hemoglobin 10.9 g/dl (12.0-15.0); Mean Corp Hgb Conc 31.8 g/gl (32-36); Mean Corpuscular Hgb 30.5 pg (27.0-32.0); Mean Corpuscular Volume 96.1 fL (81-99); Mean Platelet Vol. 9.2 fl (6.2-12.0); Platelet Count 208 K/mm3 (150-450); RBC Distribution Width SD 53.9 fl (35.1-43.9); Red Blood Count 3.57 M/mm3 (4.2-5.4); White Blood Count 10.1 K/mm3 (4.4-11.0)
[2018-03-27 15:11] LABS: Scan Indicated on CBC? Y/N NO
[2018-03-27 15:13] LABS: Protein, Urine (Random) 7.5 mg/dL (<11.9); Protein:Creat Ratio 136 mg/g CRE (0-200)
[2018-03-27 15:40] LABS: Albumin, Serum 3.9 g/dL (3.2-5.0); BUN 38 mg/dL (7-18); BUN/Creat Ratio 18.9 RATIO (10-20); Calcium,Total 9.3 mg/dL (8.5-10.1); Chloride 105 mmol/L (98-107); Creatinine, Serum 2.01 mg/dL (0.55-1.02); EST Glomerular Filtration Rate 26 mL/min (>60); Est Glom Filt Rate - Afr Amer 31 mL/min (>60); Glucose 181 mg/dL (74-106); Potassium 5.2 mmol/L (3.5-5.1); Sodium Level 142 mmol/L (136-145)
[2018-03-27 15:55] LABS: PTHIN 43.9 pg/mL (18.4-80.1)
== END ==
PROVIDERS: Family Provider Internal Medicine; PCP Internal Medicine; Visit Provider Internal Medicine Nephrology
DX: E11.22 Type 2 diabetes mellitus with diabetic chronic kidney disease (principal); N18.3 Chronic kidney disease, stage 3 (moderate)
CPT/HCPCS: 36415; 80069; 82570; 83970; 84156; 85027

== ENCOUNTER → 2018-04-01 09:06 | Outpatient (CLI) | payer MEDICARE, SELFPAY ==
[2018-04-01 10:44] LABS: Albumin, Serum 3.8 g/dL (3.2-5.0); BUN 27 mg/dL (7-18); BUN/Creat Ratio 16.1 RATIO (10-20); Calcium,Total 9.2 mg/dL (8.5-10.1); Chloride 105 mmol/L (98-107); Creatinine, Serum 1.68 mg/dL (0.55-1.02); EST Glomerular Filtration Rate 32 mL/min (>60); Est Glom Filt Rate - Afr Amer 39 mL/min (>60); Glucose 277 mg/dL (74-106); Phosphorus 3.3 mg/dL (2.5-4.9); Potassium 4.4 mmol/L (3.5-5.1); Sodium Level 142 mmol/L (136-145)
== END ==
PROVIDERS: Family Provider Internal Medicine; PCP Internal Medicine; Visit Provider Internal Medicine Nephrology
DX: N17.9 Acute kidney failure, unspecified (principal)
CPT/HCPCS: 36415; 80069

== ENCOUNTER 2018-04-05 18:36 | Emergency (ER) | payer MEDICARE, SELFPAY ==
[2018-04-05 18:37] VITALS: BP 153/72; PULSE 71; RESP 20; TEMP 36.6; O2SAT 98; BMI 48.6
--- NOTE | 2018-04-05 19:56 | RAD_ITS ---
STUDY: X-RAY CHEST REASON FOR EXAM: Female, 72 years old. Short of breath. TECHNIQUE: Frontal and lateral views of the chest. COMPARISON: None. FINDINGS: The lungs are clear and expanded. There is no demonstrated pleural abnormality. Normal size heart. Normal mediastinum and kristen. Normal visualized pulmonary arteries. Normal visualized aortic arch and descending thoracic aorta. There are diffuse degenerative changes of the visualized thoracic spine. There is degenerative osteoarthritis of the bilateral shoulders. There is no demonstrated abnormality of the visualized soft tissue structures of the upper abdomen. RAD/Chest PA and Lateral IMPRESSION: Degenerative changes, as described above. No demonstrated acute cardiopulmonary process. Electronically Signed: Andrew Villarreal MD at 20:39 EDT , Service support ,
--- NOTE | 2018-04-05 19:56 | EKG12_ITS ---
Test Reason : SOB Blood Pressure : / mmHG Vent. Rate : 068 BPM Atrial Rate : 068 BPM P-R Int : 176 ms QRS Dur : 088 ms QT Int : 426 ms P-R-T Axes : 047 -43 021 degrees QTc Int : 452 ms Normal sinus rhythm Left axis deviation Low voltage QRS Inferior infarct , age undetermined Poor R wave progression Anterior AL, age undetermined Abnormal ECG Confirmed by FELIZ LOPEZ, HANG ([id number]), legal editor ADDY PARRY ([id number] on 04/09/2018 2:29:42 PM Referred By: María Vance Confirmed By:HANG PIPER MD
--- NOTE | 2018-04-05 19:57 | ED.VISSUMM ---
- ER Visit Summary Date of Service: 04/05/18 Chief Complaint: Shortness of breath, edema History of Present Illness: The patient is a 72 F with history of renal failure and has been following with Dr. Vance. She was seen in the office last week due to decreased urine output. Several medications were stopped due to worsening renal function. She was also seen by her pastrycook's assistant and her insulin was adjusted. Patient has noted shortness of breath, increased swelling over the past several days. She has had a 3 or 4 pound weight gain in the past couple days. She goes to cardiac rehab and they sent a fax to her ophthalmic photographer, Dr. Go due to her symptoms. He is reportedly out of town and nurse advised her to come to the emergency room. Physical Examination: Blood pressure is 153/72, temperature 97.9, heart rate 71, respiratory rate 20, pulse ox 98% room air. Head neck examination unremarkable. Heart is regular rate and rhythm. Lung sounds are clear. Abdomen is soft with no focal tenderness. Abdomen is distended. Lower extremity examination reveals 3+ edema that is symmetric. Test Results: EKG is sinus at 68 with no sign of acute ischemia. Chest x-ray shows degenerative changes. No acute process. CBC was normal white count with hemoglobin of 9.8. Platelet count is 145,000. Chemistry studies reveal glucose of 166. BUN is 22 and creatinine is 1.37. This is improving when compared to her prior values. Troponin is less than 0.015. BNP is 106. Emergency Department Course and Treatment: Patient was able to ambulate to the restroom here and urinated a large amount of urine. She will take Lasix 20 mg twice daily for the next 4 days. She will follow with her primary care physician and then with her ophthalmic photographer as soon as he returns to [facility]. Patient is clinically stable I do not believe she requires hospital admission. Treatment Plan: [] Disposition: Discharge Impression: Edema This note was generated with [employer] dictation software. It may contain incorrect words, spelling, and punctuation that were not noted in review of the chart prior to signing ED Disposition - Plan for ED Patient: Chief Complaint: Shortness of Breath Referrals: Jesus Davila MD [Primary Care Provider] -
[2018-04-05 20:00] VITALS: BP 151/105; PULSE 67; RESP 17; O2SAT 98
[2018-04-05 20:10] LABS: Absolute Lymphocyte Count 2.52 X10^3/ul (0.83-4.51); Absolute Neutrophil Count 4.5 X10^3/uL (2.0-7.7); Basophil# 0.02 X10^3/uL; Basophil% 0.3 % (0-1); Eosinophil# 0.16 X10^3/uL; Hematocrit 31.5 % (37-47); Hemoglobin 9.8 g/dl (12.0-15.0); Lymphocyte # 2.52 X10^3/ul (4.0); Lymphocyte % 32.1 % (19-41); Mean Corp Hgb Conc 31.1 g/gl (32-36); Mean Corpuscular Hgb 29.5 pg (27.0-32.0); Mean Corpuscular Volume 94.9 fL (81-99); Mean Platelet Vol. 8.8 fl (6.2-12.0); Monocyte# 0.61 X10^3/uL; Monocyte% 7.8 % (0-10); Neutrophil # 4.54 X10^3/uL (2.7-7.7); Neutrophil % 57.7 % (47-70); Platelet Count 145 K/mm3 (150-450); RBC Distribution Width SD 54.7 fl (35.1-43.9); Red Blood Count 3.32 M/mm3 (4.2-5.4); White Blood Count 7.9 K/mm3 (4.4-11.0)
[2018-04-05 20:15] LABS: POSITIVE COUNT NO; POSITIVE DIFFERENTIAL NO; POSITIVE MORPHOLOGY NO
[2018-04-05 20:19] LABS: Anion Gap 5 (5-15); BUN 22 mg/dL (7-18); BUN/Creat Ratio 16.1 RATIO (10-20); Calcium,Total 9.2 mg/dL (8.5-10.1); Chloride 108 mmol/L (98-107); Creatinine, Serum 1.37 mg/dL (0.55-1.02); EST Glomerular Filtration Rate 40 mL/min (>60); Est Glom Filt Rate - Afr Amer 49 mL/min (>60); Estimated Creatinine Clearance 27.45 ml/min; Glucose 166 mg/dL (74-106); Potassium 4.4 mmol/L (3.5-5.1); Sodium Level 142 mmol/L (136-145)
[2018-04-05 21:01] LABS: BNP,B-Type NATRIURETIC PEPTIDE 106.5 pg/mL (0-100)
[2018-04-05 21:11] VITALS: PULSE 71; RESP 17; O2SAT 95
[2018-04-05] MEDS: Gabapentin 600 MG Tablet PO (21:40)
[2018-04-05 22:04] VITALS: BP 109/51; PULSE 73; RESP 18; O2SAT 94
--- NOTE | 2018-04-05 22:08 | ED.DEP ---
ED Disposition - Plan for ED Patient: Disposition: Home or Assisted Living Chief Complaint: Shortness of Breath Instructions: ED Leg Swelling Bilateral Referrals: Jesus Davila MD [Primary Care Provider] - 5-7 Days Mike Go MD [STAFF PHYSICIAN] - As soon as possible Additional Instructions: Take Lasix for next 4 days as discussed.
[2018-04-05 22:17] VITALS: BP 132/59; PULSE 65; RESP 18; O2SAT 94
== END 2018-04-05 22:18 | disposition home or self-care (01) ==
PROVIDERS: Emergency Provider Emergency Medicine; Family Provider Internal Medicine; PCP Internal Medicine
DX: R60.0 Localized edema (principal); R06.00 Dyspnea, unspecified; E11.22 Type 2 diabetes mellitus with diabetic chronic kidney disease; I12.9 Hypertensive chronic kidney disease with stage 1 through stage 4 chronic kidney disease, or unspecified chronic kidney disease; N18.9 Chronic kidney disease, unspecified; E78.00 Pure hypercholesterolemia, unspecified; G47.33 Obstructive sleep apnea (adult) (pediatric); Z85.850 Personal history of malignant neoplasm of thyroid; Z79.82 Long term (current) use of aspirin; Z79.4 Long term (current) use of insulin; Z79.899 Other long term (current) drug therapy
CPT/HCPCS: 71046; 80048; 83880; 84484; 85025; 93005; 99284

== ENCOUNTER 2018-04-08 13:00 | Outpatient (RCR) | payer MEDICARE, SELFPAY ==
[2018-03-10 00:50] VITALS: BP 118/62; BP 120/60
--- NOTE | 2018-04-03 10:11 | PCM.CR.ITP ---
General Information - General Information Admitting Diagnosis: current stable angina - Education/Goals Barriers to Learning: None Individual Counseling: Discharge Assessment: Abnormal Cholesterol Levels, High Blood Pressure, Diabetes Cardiac Rehabilitation Goals: 1. Maintain the individual as the primary focus of care. 2. To improve the patient's quality of life. 3. Identification of cardiac risk factors and provide cardiac risk factor management. 4. Enhance the psychosocial status of the patient. 5. Reconditioning enough to allow the patient to resume customary activities. 6. Control symptoms of cardiac disease Scale for measuring improvement of personal goals: Enter appropriate number in Comments. 2 = Unchanged. 3 = Slightly Better. 4 = Moderate Improvement. 5 = Met my Goal Personal Goals: Discharge Reassessment: Improve management of stress and emotions, Improve energy level, Improve muscle strength and endurance Exercise - Final/Discharge - Visit Date of Eval: 04/03/18 Session #:: 32 - Stages of Change Stages of Change:: Action - Exercise Prescription Mode:: Treadmill, NuStep Frequency (x/week): 3 Duration:: 30 METs: 5 Target Heart Rate:: 112-120 Max HR 118 - Hypertension Resting Blood Pressure:: 110/70 Peak Exercise Blood Pressure:: 126/58 - Intervention Home Exercise/Activity Goal:: Sitting Time <3 hrs/day - Education Goal Progress: Progressing - Exercise Program Goals Exercise Program Goals: Aerobic Activity >30 min, B/P <130/80 Nutrition - Final Assessment - Program Goals Nutrition Program Goals: LDL <70. Total Cholesterol <200. HDL >45. Triglycerides <150. HgbA1C <7%. BMI <25 - Visit Date of Eval: 04/03/18 - Stages of Change Stages of Change:: Action - Diabetes Diabetes:: Yes - Weight Management Weight:: 111.811 kg - Intervention Referral to dietitian:: No Referral to Diabetic Clinic:: No Will attend diet classes:: Yes - Education Education Goal Reached?: Yes Tobacco - Final Assessment - Program Goals Tobacco Program Goals: Complete smoking cessation. Attend education classes. Improve Knowledge Test score - Stage of Change Stages of Change:: Action - Family Support Do you have family support?: Yes - Tobacco Use Tobacco Use: Non-smoker Do you use smokeless tobacco?: No - Intervention Smoking Cessation Referral:: No Individual Education/Counseling:: No Education Schedule Given:: Yes - Education Education Goal Reached?: Yes Psychosocial - Initial Assess - Target Goals Target Goals: Assess presence or absence of depression. Using a valid screening tool, maximizes coping skills. Positive support system - Psychosocial Test Tool Used:: HANDS Depression Questionnaire - Assistive Devices Fall Risk Assessed:: Yes Psychosocial - Final Assessmen - Target Goals Target Goals: Assess presence or absence of depression. Using a valid screening tool, maximizes coping skills. Positive support system - Stages of Change Stages of Change:: Action - Psychosocial Test Tool Used:: HANDS Depression Questionnaire - Intervention PS - Interventions: Yes Attend Stress Management Classes, Yes Uses Stress Management Skills, No Referral to Mental Health, No Referral to [facility] Case Management, No Referral to Physician - Education Education Goal Reached?: Yes - Assistive Devices Assistive Devices:: None Fall Risk Assessed:: Yes Patient Health Questionnaire Discharge Assessment 1. Little interest or pleasure in doing things: Not at all 2. Feeling down, depressed, or hopeless: Several days 3. Trouble falling or staying asleep, or sleeping too much: More than half the days 4. Feeling tired or having little energy: Several days 5. Poor appetite or overeating: Several days 6. Feeling bad about yourself -- or that you are a failure or have let yourself or your family down: Not at all 7. Trouble concentrating on things, such as reading the newspaper or watching television: Not at all 8. Moving or speaking so slowly that other people could have noticed. Or the opposite - being so fidgety or restless that you have been moving around a lot more than usual: Not at all 9. Thoughts that you would be better off , or of hurting yourself in some way: Not at all How difficult have these problems made it for you to do your work, take care of things at home, or get along with other people?: Not difficult at all Total Score: 5 TATY-Q SV Test - Statements CAD is a disease of the arteries in the heart: False Examples of risk factors for heart disease: True Angina is chest pain or discomfort: True The benefits of resistance training include: True Eating more meat and dairy products: False Anti-platelet medications such as aspirin are important: True The only effective way to manage stress: False An exercise warm-up slowly increases heart rate: True Prepared, processed foods usually have high sodium: True Depression is common after a heart attack: True The statin medications lower cholesterol: True To control blood pressure, lower the amount of sodium: True If someone gets chest discomfort during walking: False Transfats are partially hydrogenated vegetable oils: True Sleep apnea that is not treated increases the risk: False To control cholesterol, one should become a vegetarian: False Someone knows if he/she is exercising at the right level: True Diabetes cannot be prevented with exercise & health eating: False Stress is a large risk for heart attack: True A diet that can help lower blood pressure is rich in: True - Total Score Total Correct Responses: 20 Self-Efficacy Discharge Assessment We would like to know how confident you are in doing certain activities. Please select your confidence level for:: Select your confidence level for the following using the scale 1-10 where 1 is not at all confident and 10 is totally confident. Your score is the average of all 6 responses. Fatigue: How confident are you that you can keep the fatigue caused by your disease from interfering with the things you want to do? Select Number: 4 Physical Discomfort or Pain: How confident are you that you can keep the physical discomfort or pain of your disease from interfering with the things you want to do? Select Number: 9 Emotional Distress: How confident are you that you can keep the emotional distress caused by your disease from interfering with the things you want to do? Select Number: 6 Other Symptoms or Health Problems: How confident are you that you can keep other symptoms or health problems from interfering with the things you want to do? Select Number: 8 Different Tasks and Activities: How confident are you that you can do the different tasks and activities needed to manage your health condition so as to reduce your need to see a doctor? Select Number: 8 Medication: How confident are you that you can do things other than just taking medication to reduce how much your illness affects your everyday life? Select Number: 8 Total Score:: 7 Nutrition Survey - Nutrition Survey Instructions Scoring Instructions: Scoring is as follows: Yes = 1 points. No = 0 point. Patient score that is >/=12 is considered to be at potential nutritional risk and could benefit from a referral to a registered dietitian. - Nutrition Survey Discharge Have you lost >10 lbs over the past 2 months without trying?: No Are you following a special diet at home for diabetes, low fat, or low salt?: Yes Are you interested in meeting with a dietitian for help understanding your diet?: No Do you eat less than 3 meals a day?: No Do you eat fatty meats (saenz, sausage, ribs, etc), fried foods, desserts, large amounts of salad dressings, margarine, butter, or cheese most days?: No Do you have food allergies? [Enter types in comment field]: No Do you eat in restaurants more than 3 times a week?: No Do you season food with salt, seasoning salt, or garlic salt?: No Do you used canned, boxed, frozen meals, or soups, seasoning packets?: No Total Score:: 1
[2018-04-03 10:20] VITALS: BP 110/70; BP 126/58
[2018-04-03 13:36] LABS: Bedside Glucose 202 mg/dL (70-110)
== END 2018-04-09 23:59 ==
LOC: CR 13:00
PROVIDERS: Family Provider Internal Medicine; PCP Internal Medicine; Visit Provider Internal Medicine Cardiovascular Disease
DX: I20.9 Angina pectoris, unspecified (principal); E11.22 Type 2 diabetes mellitus with diabetic chronic kidney disease; N18.3 Chronic kidney disease, stage 3 (moderate)
CPT/HCPCS: 36415; 80069; 82570; 82962; 83970; 84156; 85027; 93798

== ENCOUNTER → 2018-04-10 09:24 | Outpatient (CLI) | payer MEDICARE, SELFPAY ==
[2018-04-10 10:23] LABS: Anion Gap 9 (5-15); BUN 26 mg/dL (7-18); BUN/Creat Ratio 18.6 RATIO (10-20); Calcium,Total 9.3 mg/dL (8.5-10.1); Chloride 109 mmol/L (98-107); EST Glomerular Filtration Rate 39 mL/min (>60); Est Glom Filt Rate - Afr Amer 48 mL/min (>60); Glucose 174 mg/dL (74-106); Potassium 4.4 mmol/L (3.5-5.1); Sodium Level 145 mmol/L (136-145)
== END ==
PROVIDERS: Family Provider Internal Medicine; PCP Internal Medicine; Visit Provider Internal Medicine Nephrology
DX: N18.3 Chronic kidney disease, stage 3 (moderate) (principal)
CPT/HCPCS: 36415; 80048

== ENCOUNTER 2018-04-19 13:00 | Outpatient (RCR) | payer MEDICARE, SELFPAY ==
[2018-04-10 00:49] VITALS: BP 110/70; BP 126/58
--- NOTE | 2018-05-03 14:18 | PCM.CR.ITP ---
Exercise - Final/Discharge - Visit Date of Eval: 05/03/18 - graduated 04/19/18 - Stages of Change Stages of Change:: Action - Exercise Prescription Mode:: Treadmill, Rower, Airdyne, NuStep Frequency (x/week): 3 Duration:: 35 METs: 5 Target Heart Rate:: 112-120 - Hypertension Do any of the following apply?: Yes Resting Blood Pressure:: 142/72 Peak Exercise Blood Pressure:: 142/72 - Intervention Home Exercise/Activity Goal:: Moderate Exercise 30 min/day x 5 days/wk - Education Goal Progress: Goal Met - Exercise Program Goals Exercise Program Goals: Aerobic Activity >30 min Nutrition - Final Assessment - Program Goals Nutrition Program Goals: LDL <70. Total Cholesterol <200. HDL >45. Triglycerides <150. HgbA1C <7%. BMI <25 - Visit Date of Eval: 05/03/18 - Stages of Change Stages of Change:: Action - Diabetes Diabetes:: Yes Insulin: Yes Non-Insulin Dependent?: Yes - Weight Management Height: 4 ft 9.9 in Weight:: 245 lb - Intervention Referral to dietitian:: No Referral to Diabetic Clinic:: No Will attend diet classes:: Yes - Education Education Goal Reached?: Yes Tobacco - Final Assessment - Program Goals Tobacco Program Goals: Complete smoking cessation. Attend education classes. Improve Knowledge Test score - Stage of Change Stages of Change:: Action - Learning Barriers Cardiac Knowledge Test Score:: 20 - Family Support Do you have family support?: Yes - Tobacco Use Tobacco Use: Non-smoker Do you use smokeless tobacco?: No - Intervention Smoking Cessation Referral:: No Individual Education/Counseling:: No Education Schedule Given:: Yes - Education Education Goal Reached?: Yes Psychosocial - Final Assessmen - Target Goals Target Goals: Assess presence or absence of depression. Using a valid screening tool, maximizes coping skills. Positive support system - Stages of Change Stages of Change:: Action - Psychosocial Test Tool Used:: HANDS Depression Questionnaire - Intervention PS - Interventions: Yes Attend Stress Management Classes, Yes Uses Stress Management Skills, No Referral to Mental Health, No Referral to [facility] Case Management, No Referral to Physician - Education Education Goal Reached?: Yes - Patient/Program Goal Preventative Medication(s):: Aspirin, Clopidogrel, Beta laura, Statin/lipid - Assistive Devices Assistive Devices:: None Fall Risk Assessed:: Yes Patient Health Questionnaire Discharge Assessment 1. Little interest or pleasure in doing things: Not at all 2. Feeling down, depressed, or hopeless: Not at all 3. Trouble falling or staying asleep, or sleeping too much: Not at all 4. Feeling tired or having little energy: Not at all 5. Poor appetite or overeating: Not at all 6. Feeling bad about yourself -- or that you are a failure or have let yourself or your family down: Not at all 7. Trouble concentrating on things, such as reading the newspaper or watching television: Not at all 8. Moving or speaking so slowly that other people could have noticed. Or the opposite - being so fidgety or restless that you have been moving around a lot more than usual: Not at all 9. Thoughts that you would be better off , or of hurting yourself in some way: Not at all How difficult have these problems made it for you to do your work, take care of things at home, or get along with other people?: Not difficult at all Total Score: 0 TATY-Q SV Test - Statements CAD is a disease of the arteries in the heart: False Examples of risk factors for heart disease: True Angina is chest pain or discomfort: True The benefits of resistance training include: True Eating more meat and dairy products: False Anti-platelet medications such as aspirin are important: True The only effective way to manage stress: False An exercise warm-up slowly increases heart rate: True Prepared, processed foods usually have high sodium: True Depression is common after a heart attack: True The statin medications lower cholesterol: True To control blood pressure, lower the amount of sodium: True If someone gets chest discomfort during walking: False Transfats are partially hydrogenated vegetable oils: True Sleep apnea that is not treated increases the risk: False To control cholesterol, one should become a vegetarian: False Someone knows if he/she is exercising at the right level: True Diabetes cannot be prevented with exercise & health eating: False Stress is a large risk for heart attack: True A diet that can help lower blood pressure is rich in: True - Total Score Total Correct Responses: 20 Self-Efficacy Discharge Assessment We would like to know how confident you are in doing certain activities. Please select your confidence level for:: Select your confidence level for the following using the scale 1-10 where 1 is not at all confident and 10 is totally confident. Your score is the average of all 6 responses. Fatigue: How confident are you that you can keep the fatigue caused by your disease from interfering with the things you want to do? Select Number: 10 Physical Discomfort or Pain: How confident are you that you can keep the physical discomfort or pain of your disease from interfering with the things you want to do? Select Number: 10 Emotional Distress: How confident are you that you can keep the emotional distress caused by your disease from interfering with the things you want to do? Select Number: 10 Other Symptoms or Health Problems: How confident are you that you can keep other symptoms or health problems from interfering with the things you want to do? Select Number: 10 Different Tasks and Activities: How confident are you that you can do the different tasks and activities needed to manage your health condition so as to reduce your need to see a doctor? Select Number: 10 Medication: How confident are you that you can do things other than just taking medication to reduce how much your illness affects your everyday life? Select Number: 10 Total Score:: 10 Nutrition Survey - Nutrition Survey Instructions Scoring Instructions: Scoring is as follows: Yes = 1 points. No = 0 point. Patient score that is >/=12 is considered to be at potential nutritional risk and could benefit from a referral to a registered dietitian. - Nutrition Survey Discharge Have you lost >10 lbs over the past 2 months without trying?: No Are you following a special diet at home for diabetes, low fat, or low salt?: Yes Are you interested in meeting with a dietitian for help understanding your diet?: No Do you eat less than 3 meals a day?: Yes Do you eat fatty meats (saenz, sausage, ribs, etc), fried foods, desserts, large amounts of salad dressings, margarine, butter, or cheese most days?: No Do you have food allergies? [Enter types in comment field]: No Do you eat in restaurants more than 3 times a week?: No Do you season food with salt, seasoning salt, or garlic salt?: No Do you used canned, boxed, frozen meals, or soups, seasoning packets?: Yes Total Score:: 3
[2018-05-03 14:23] VITALS: BP 142/72
== END 2018-05-10 23:59 ==
LOC: CR 13:00
PROVIDERS: Family Provider Internal Medicine; PCP Internal Medicine; Visit Provider Internal Medicine Cardiovascular Disease
DX: I20.9 Angina pectoris, unspecified (principal); E11.22 Type 2 diabetes mellitus with diabetic chronic kidney disease; N18.3 Chronic kidney disease, stage 3 (moderate)
CPT/HCPCS: 36415; 80048; 93798

== ENCOUNTER → 2018-04-29 10:21 | Outpatient (CLI) | payer MEDICARE, SELFPAY ==
[2018-04-29 12:02] LABS: Albumin, Serum 3.6 g/dL (3.2-5.0); BUN 22 mg/dL (7-18); BUN/Creat Ratio 14.8 RATIO (10-20); Chloride 105 mmol/L (98-107); Creatinine, Serum 1.49 mg/dL (0.55-1.02); EST Glomerular Filtration Rate 37 mL/min (>60); Est Glom Filt Rate - Afr Amer 44 mL/min (>60); Glucose 299 mg/dL (74-106); Phosphorus 3.6 mg/dL (2.5-4.9); Potassium 3.9 mmol/L (3.5-5.1); Sodium Level 143 mmol/L (136-145)
== END ==
PROVIDERS: Family Provider Internal Medicine; PCP Internal Medicine; Visit Provider Internal Medicine Nephrology
DX: N17.9 Acute kidney failure, unspecified (principal)
CPT/HCPCS: 36415; 80069

== ENCOUNTER → 2018-05-15 10:46 | Outpatient (CLI) | payer MEDICARE, SELFPAY ==
[2018-05-15 12:09] LABS: Albumin, Serum 3.5 g/dL (3.2-5.0); BUN 17 mg/dL (7-18); BUN/Creat Ratio 12.1 RATIO (10-20); Calcium,Total 8.9 mg/dL (8.5-10.1); Chloride 104 mmol/L (98-107); Creatinine, Serum 1.41 mg/dL (0.55-1.02); EST Glomerular Filtration Rate 39 mL/min (>60); Est Glom Filt Rate - Afr Amer 47 mL/min (>60); Glucose 254 mg/dL (74-106); Phosphorus 3.6 mg/dL (2.5-4.9); Sodium Level 140 mmol/L (136-145)
== END ==
PROVIDERS: Family Provider Internal Medicine; PCP Internal Medicine; Visit Provider Internal Medicine Nephrology
DX: N17.9 Acute kidney failure, unspecified (principal)
CPT/HCPCS: 36415; 80069

== ENCOUNTER 2018-05-30 08:22 | Outpatient (RCR) | payer MEDICARE, SELFPAY | END 2018-06-09 23:59 | LOC: DC 08:22 | PROVIDERS: Family Provider Internal Medicine; PCP Internal Medicine; Visit Provider Internal Medicine Nephrology | DX: E11.9 Type 2 diabetes mellitus without complications (principal); I12.9 Hypertensive chronic kidney disease with stage 1 through stage 4 chronic kidney disease, or unspecified chronic kidney disease; N18.3 Chronic kidney disease, stage 3 (moderate); I25.10 Atherosclerotic heart disease of native coronary artery without angina pectoris; R60.9 Edema, unspecified; E66.9 Obesity, unspecified; Z71.3 Dietary counseling and surveillance | CPT/HCPCS: G0108 ==

== ENCOUNTER → 2018-07-29 09:39 | Outpatient (CLI) | payer MEDICARE, SELFPAY ==
[2018-07-29 10:08] LABS: Hematocrit 34.7 % (37-47); Hemoglobin 10.8 g/dl (12.0-15.0); Mean Corp Hgb Conc 31.1 g/gl (32-36); Mean Corpuscular Volume 93.3 fL (81-99); Platelet Count 133 K/mm3 (150-450); RBC Distribution Width CV 14.6 % (11.6-14.6); RBC Distribution Width SD 49.1 fl (35.1-43.9); Red Blood Count 3.72 M/mm3 (4.2-5.4); White Blood Count 5.2 K/mm3 (4.4-11.0)
[2018-07-29 10:09] LABS: Scan Indicated on CBC? Y/N NO
[2018-07-29 10:58] LABS: Albumin, Serum 3.5 g/dL (3.2-5.0); BUN 27 mg/dL (7-18); BUN/Creat Ratio 21.1 RATIO (10-20); Chloride 106 mmol/L (98-107); Creatinine, Serum 1.28 mg/dL (0.55-1.02); EST Glomerular Filtration Rate 44 mL/min (>60); Est Glom Filt Rate - Afr Amer 53 mL/min (>60); Glucose 185 mg/dL (74-106); Iron 45 ug/dL (50-170); Iron Binding Capacity,Total 361 ug/dL (250-450); Phosphorus 3.2 mg/dL (2.5-4.9); Potassium 4.4 mmol/L (3.5-5.1); Sodium Level 143 mmol/L (136-145)
[2018-07-29 11:36] LABS: Protein, Urine (Random) < 6.0 mg/dL (<11.9)
== END ==
PROVIDERS: Family Provider Internal Medicine; PCP Internal Medicine; Referring Provider Internal Medicine Nephrology; Visit Provider Internal Medicine Nephrology
DX: E11.22 Type 2 diabetes mellitus with diabetic chronic kidney disease (principal); N18.9 Chronic kidney disease, unspecified; N17.9 Acute kidney failure, unspecified; D63.8 Anemia in other chronic diseases classified elsewhere
CPT/HCPCS: 36415; 80069; 82570; 83540; 83550; 84156; 85027

== ENCOUNTER 2018-08-21 11:26 | Outpatient (RCR) | payer MEDICARE, SELFPAY | END 2018-09-09 23:59 | LOC: DC 11:26 | PROVIDERS: Family Provider Internal Medicine; PCP Internal Medicine; Referring Provider Internal Medicine Nephrology; Visit Provider Internal Medicine Nephrology | DX: E11.9 Type 2 diabetes mellitus without complications (principal); I12.9 Hypertensive chronic kidney disease with stage 1 through stage 4 chronic kidney disease, or unspecified chronic kidney disease; N18.3 Chronic kidney disease, stage 3 (moderate); I25.10 Atherosclerotic heart disease of native coronary artery without angina pectoris; R60.9 Edema, unspecified; E66.9 Obesity, unspecified; Z71.3 Dietary counseling and surveillance | CPT/HCPCS: G0108 ==

== ENCOUNTER 2018-10-25 18:41 | Inpatient (IN) | payer MEDICARE, SELFPAY ==
[2018-10-25 18:42] VITALS: BP 174/78; PULSE 86; RESP 16; TEMP 35.8; O2SAT 94; BMI 46.6
--- NOTE | 2018-10-25 18:58 | CT_ITS ---
STUDY: CT ABDOMEN AND PELVIS WITHOUT CONTRAST REASON FOR EXAM: Female, 73 years old. RADIATION DOSAGE (If Supplied By Facility): CTDIvol = ( 23.09 ) mGy, DLP = ( 1038.44 ) mGycm TECHNIQUE: Transaxial images were obtained from the dome of the diaphragm to the symphysis pubis without oral contrast, and without intravenous contrast. Sagittal and coronal images were reconstructed. Individualized dose optimization techniques were used for this CT. COMPARISON: CT of the abdomen and pelvis, June 10, 2017. FINDINGS: The visualized lung bases are unremarkable. The visualized portions of the heart are within normal limits. The liver is normal in size, contour and density. There is a 1.5 x 1.2 x 1.3 cm cyst in segment 4A. There are surgical clips in the gallbladder fossa consistent with a prior cholecystectomy. Normal spleen. Normal pancreas. Normal bilateral adrenal glands. There is a 1.4 cm fat density mass in the lower pole of the right kidney thought to represent a angiomyolipoma. This appears mildly increased in size from previous examination. Normal left kidney. Normal bilateral ureters. Normal visualized stomach. There are fluid-filled mildly distended proximal small bowel throughout the abdomen. Distal small bowel loops appear normal. Multiple small bowel loops lie along the underside of the abdomen is evidence of surgical change. Question adhesion. Normal colon. There are surgical clips in the region of the appendix consistent with a prior appendectomy. There is diffuse atherosclerotic calcification of the abdominal aorta, without a demonstrated aneurysm. Normal inferior vena cava. Normal retroperitoneum. Normal urinary bladder. Normal vaginal cuff. There are multiple phleboliths in the pelvis without lymphadenopathy. No free air or free fluid is seen within the peritoneal cavity. There are findings consistent with ventral herniorrhaphy. Abdominal wall is otherwise unremarkable. There are diffuse degenerative changes of the visualized lumbar spine. CT/Abdomen/Pelvis without Cont IMPRESSION: 1. Distended fluid-filled proximal small bowel loops. The transition appears to lie along the anterior abdominal wall where there is been evidence of interval herniorrhaphy. The ventral hernia seen on the previous study has been repaired. 2. Stable hepatic cyst. There is resolution of fatty infiltration of liver seen on the prior study. 3. 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 4. No other major interval change. Electronically Signed: Danny Veloz DO at 20:25 EST Tel [phone], Service support ,
--- NOTE | 2018-10-25 18:58 | ED.VISSUMM ---
- ER Visit Summary Date of Service: 10/25/18 Chief Complaint: Abdominal pain, nausea vomiting History of Present Illness: The patient is a 73 F who has had abdominal pain for 3 days. She describes a sharp continuous pain diffusely across her abdomen. Nothing makes his pain better or worse. She felt like she was distended. She started vomiting today and has had a large amount of copious vomitus today. No diarrhea or constipation. She had a bowel movement today. She denies any urinary symptoms. She denies any fever. She has had multiple abdominal surgeries in the past including an appendectomy, cholecystectomy and hysterectomy. She does have a history of a bowel obstruction. She states that she is preparing for gastric bypass surgery. This is go to be done at [facility]. Physical Examination: Vital signs reviewed. HEENT exam unremarkable. Heart is regular rate and rhythm without murmurs. Lungs are clear to auscultation. Abdomen is soft with diffuse abdominal tenderness. She is distended. There are hyperactive bowel sounds noted. Extremities reveal no edema. Skin exam normal. Neurologic exam normal. Test Results: White blood cell count 12.6, potassium 5.3, glucose 186, BUN 33, creatinine 1.39. CAT scan of the abdomen and pelvis reveals small bowel obstruction with a transition point near a previous herniorrhaphy site Emergency Department Course and Treatment: The patient was given morphine and Zofran and fluids. After knowledge of the small bowel obstruction, I did order an NG tube to be placed. I discussed with Dr. Naranjo, on-call for Dr. Fam who the patient is seen in the past. She will see the patient in consultation. I discussed with Dr. Mera for admission. Treatment Plan: [] Disposition: Admit Impression: Small bowel obstruction This note was generated with Portration software. It may contain incorrect words, spelling, and punctuation that were not noted in review of the chart prior to signing ED Disposition - Plan for ED Patient: Referrals: Jesus Davila MD [Primary Care Provider] -
[2018-10-25] MEDS: Morphine 4 MG/ML Syringe IV (19:44)
[2018-10-25] MEDS: 0.9% Normal Saline 1,000 ML 1000 ML IV (19:44)
[2018-10-25] MEDS: Ondansetron 4 MG/2 ML Vial IV (19:44)
[2018-10-25 19:48] LABS: Absolute Lymphocyte Count 1.81 X10^3/ul (0.83-4.51); Absolute Neutrophil Count 10.1 X10^3/uL (2.0-7.7); Basophil# 0.01 X10^3/uL; Basophil% 0.1 % (0-1); Eosinophil# 0.08 X10^3/uL; Eosinophils% 0.6 % (0-5); Hematocrit 39.5 % (37-47); Hemoglobin 12.6 g/dl (12.0-15.0); Lymphocyte # 1.81 X10^3/ul (4.0); Lymphocyte % 14.3 % (19-41); Mean Corp Hgb Conc 31.9 g/gl (32-36); Mean Corpuscular Volume 90.8 fL (81-99); Mean Platelet Vol. 9.3 fl (6.2-12.0); Monocyte# 0.62 X10^3/uL; Monocyte% 4.9 % (0-10); Neutrophil # 10.06 X10^3/uL (2.7-7.7); Neutrophil % 79.6 % (47-70); Platelet Count 182 K/mm3 (150-450); RBC Distribution Width CV 14.4 % (11.6-14.6); RBC Distribution Width SD 47.4 fl (35.1-43.9); Red Blood Count 4.35 M/mm3 (4.2-5.4); White Blood Count 12.6 K/mm3 (4.4-11.0)
[2018-10-25 19:49] LABS: POSITIVE COUNT NO; POSITIVE DIFFERENTIAL NO; POSITIVE MORPHOLOGY NO
[2018-10-25 20:00] LABS: ALB/GLOB Ratio 0.9 RATIO (0.9-2.4); AST(SGOT) 36 U/L (15-37); Alanine Aminotransfer ALT/SGPT 44 U/L (13-56); Albumin, Serum 3.9 g/dL (3.2-5.0); Alkaline Phosphatase 111 U/L (45-117); Anion Gap 9 (5-15); BUN 33 mg/dL (7-18); BUN/Creat Ratio 23.7 RATIO (10-20); Calcium,Total 9.4 mg/dL (8.5-10.1); Chloride 102 mmol/L (98-107); Creatinine, Serum 1.39 mg/dL (0.55-1.02); EST Glomerular Filtration Rate 40 mL/min (>60); Est Glom Filt Rate - Afr Amer 48 mL/min (>60); Estimated Creatinine Clearance 26.66 ml/min; Globulin 4.2 g/dL (2.2-4.2); Glucose 186 mg/dL (74-106); Lipase 296 U/L (73-393); Potassium 5.3 mmol/L (3.5-5.1); Protein, Total 8.1 g/dL (6.4-8.2); Sodium Level 137 mmol/L (136-145)
--- NOTE | 2018-10-25 21:01 | RAD_ITS ---
STUDY: X-RAY - ABDOMEN/PELVIS REASON FOR EXAM: Female, 73 years old. NG tube placement TECHNIQUE: A single AP upright view of the lower chest and upper abdomen. COMPARISON: CT of the abdomen and pelvis, October 25, 2018. FINDINGS: Normal visualized lung bases. There is an NG tube with its tip in the left upper quadrant and the expected position of the stomach. There is mildly distended bowel loops beneath the left diaphragm. There is no demonstrated free abdominal air. The visualized liver, spleen and kidneys are grossly normal in size and morphology. Normal soft tissue structures. There are diffuse degenerative changes of the visualized lumbar spine. RAD/Abdomen Single View (Portable) IMPRESSION: NG tube with its tip in the proximal stomach. Electronically Signed: Danny Veloz DO at 21:22 EST Tel [phone], Service support ,
--- NOTE | 2018-10-25 21:08 | PCM.HP.STD ---
Problem List (1) SBO (small bowel obstruction) Status: Acute (2) Benign hypertension Status: Chronic (3) History of thyroid cancer Status: Chronic (4) Hyperlipidemia Status: Chronic Qualifiers: Hyperlipidemia type: pure hypercholesterolemia Qualified Code(s): E78.00 - Pure hypercholesterolemia, unspecified; E78.0 - Pure hypercholesterolemia (5) Morbid obesity Status: Chronic (6) Type 2 diabetes mellitus Status: Chronic Qualifiers: Diabetes mellitus manager terminal insulin use: with usp use Diabetes mellitus complication status: with unspecified complications Qualified Code(s): E11.8 - Type 2 diabetes mellitus with unspecified complications; Z79.4 - USP (current) use of insulin (7) CKD (chronic kidney disease) stage 3, GFR 30-59 ml/min Status: Chronic History of Present Illness Date of Admission: 10/25/18 Chief Complaint: Abdominal pain 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 She did note minimal onset flatus x 1 several hours prior but nothing since. She does have prior history SBO following hernia repair. She has been undergoing evaluation for gastric bypass. In the ED work-up included T 96.5, heart rate 86, BP 174/78, respiratory rate 16, 94% on room air, CBC with WBC 12.6, hemoglobin 12.6, platelet 182 with left shift, CMP with potassium 5.3, BUN/Cr 33/1.39, glucose 186, lipase 296, liver profile unremarkable, CT abdomen and pelvis was distended fluid-filled proximal small bowel loops with a transition appearing to lie along the anterior abdominal wall where there is been prior evidence of an interval herniorrhaphy with ventral hernia seen on the prior study having been repaired, stable hepatic cyst, resolution of fatty infiltration of the liver seen on prior study, 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 Past Medical History Past Medical History (Chronic Problems): Chronic Problems CKD (chronic kidney disease) stage 3, GFR 30-59 ml/min (Chronic) history of kidney lesion (Chronic) History of thyroid cancer (Chronic) Morbid obesity (Chronic) Hyperlipidemia (Chronic) Type 2 diabetes mellitus (Chronic) UTI (lower urinary tract infection) (Chronic) Benign hypertension (Chronic) Allergies adhesive Allergy (Verified 04/05/18 18:41) Hives cephalexin monohydrate [From Keflex] Allergy (Verified 04/05/18 18:41) Hives ciprofloxacin [From Cipro] Allergy (Verified 04/05/18 18:42) Swelling ketorolac tromethamine [From Toradol] Allergy (Verified 04/05/18 18:41) Hives nickel [Nickel] Allergy (Verified 04/05/18 18:41) Other Ullpshw-Gvs-Lcf Reductase Inhibitor Adverse Reaction (Verified 04/05/18 18:41) Other paladium Allergy (Uncoded 04/05/18 18:41) Other Home Medications: Ambulatory Orders Medication Instructions Recorded Aspirin [Aspirin, Baby] 81 mg PO DAILY@0800 08/22/14 DiphenhydrAMINE [Benadryl] 25 mg PO TID PRN PRN 08/22/14 Fish Oil/Dha/Epa [Fish Oil 1,200 1 each PO TID 08/22/14 mg Fish Oil] Gabapentin [Neurontin] 300 mg PO DAILY 08/22/14 Liraglutide [Victoza] 0.6 mg SQ DAILY 08/22/14 Metoprolol Tartrate [Lopressor 25 mg PO BID 08/22/14 (beta laura)] Escitalopram Oxalate [Lexapro] 5 mg PO DAILY 04/05/18 Gabapentin [Neurontin] 600 mg PO QHS 04/05/18 Insulin Aspart [Novolog Flexpen 9 units SC BREAKFAST 04/05/18 ([facility])] Insulin Aspart [Novolog Flexpen 12 units SC DINNER 04/05/18 ([facility])] Insulin Aspart [Novolog Flexpen 12 units SC LUNCH 04/05/18 ([facility])] Insulin Aspart [Novolog Flexpen units SC 04/05/18 ([facility])] Insulin Detemir [Levemir] 18 unit SQ BID 04/05/18 Isosorbide Mononitrate [Isosorbide 30 mg PO DAILY 04/05/18 Mononitrate ER] Cholecalciferol (VIT D3) [Vitamin 1,000 unit PO DAILY 10/25/18 D] Furosemide [Lasix] 10 mg PO BID 10/25/18 Hydrocodone/Acetaminophen 1 tab PO DAILY 10/25/18 [Hydrocodone-Acetamin 10-325 mg] Insulin Aspart [Novolog Flexpen] 11 units SQ DAILY 10/25/18 Levothyroxine Sodium 150 mcg PO DAILY 10/25/18 Lisinopril [Zestril] 2.5 mg PO DAILY 10/25/18 Niacin [Slo-Niacin] 500 mg PO BID 10/25/18 Polyethylene Glycol 3350 [Purelax] 17 g PO DAILY 10/25/18 Surgical History: - - Bilateral total knee replacement, hysterectomy, hernia repair with follow-up intervention secondary to SBO, cholecystectomy, appendectomy. 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 Tobacco Use: Non-smoker Alcohol: None Drugs: None - *Family History Maternal History Items: - - Patient notes a maternal family history of COPD with history of tobacco use, past age 64. Paternal History Items: - - Patient notes a paternal family history of massive LA, coronary disease, past age 61. Sibling History Items: - - Patient notes a brother with history of ruptured aortic aneurysm, past age 49 in addition to a sister with history of heart disease and diabetes. Review of Systems Constitutional: Reports: Anorexia, Malaise, Weakness, Fatigue. Denies: Chills, Fever, Weight Change HEENT: Denies: Head Aches, Sinus Congestion, Sinus Drainage Cardiovascular: Denies: Chest Pain, Palpitations Respiratory: Denies: Cough, Shortness of breath at rest, Sputum production Gastrointestinal: Reports: Abdominal Pain, Nausea, Vomiting, - - Abdominal distention. Genitourinary: Denies: Dysuria Musculoskeletal: Denies: Joint Pain, Joint Tenderness Skin: Denies: Rash, Wounds Neurological: Denies: Numbness, Tingling, Focal weakness Psychiatric: Reports: Anxiety, Depression. Denies: Homicidal Ideations, Suicidal Ideations Hematologic/ Lymphatic: Denies: Easy Bruising, Easy Bleeding VTE Information - Inpt Only VTE Present on Admission: No VTE Mechan Device Prophylaxis: SCD's VTE Pharm Prophylaxis ordered?: Yes Patient Problems: Active and Suspected Problems SBO (small bowel obstruction) (Acute) Subjective: Seated upright in ED bed, NG tube recently placed, notable output since administration, states feeling mildly improved with less abdominal distention, less tense. Objective: Physical Examination: General: awake, alert, oriented x 3 and cooperative, seated upright in the ED bed, notes feeling mildly improved s/p NGT, less tense abdomen. Skin: normal color, turgor, no icterus, cyanosis. HEENT: AT/NC, EOMI, PERRLA, dry MM, NG in place, no carotid bruits or JVD noted. Lungs: Diminished BS BL, > bases, moderate effort, mild decrease BL bases, no rales, ronchi or wheezing. Heart: regular rate and rhythm; no gallop, rub audible. Abdomen: soft now, prior was very tense pre NGT, generalized TTP, still notably distended, absent BS, unable to assess HSM well secondary to acute presentation and morbid obesity. Extremities: no cyanosis, clubbing, BL LE ankle edema. Neurological: patient awake, alert, oriented x 3; cognitive function intact; pupils equally reactive to light and accomodation; cranial nerves II-XII grossly normal, moving all 4 extremities, no focal deficits, strength severely globally decreased secondary to acute presentation. Psychiatric: affect appears normal, no acute evidence of depressive or anxiety feelings. - Physical Exam Vital Signs Temp Pulse Resp BP Pulse Ox 96.5 F L 86 16 174/78 H 94 10/25/18 18:42 10/25/18 18:42 10/25/18 18:42 10/25/18 18:42 10/25/18 18:42 Oxygen Delivery Method Room Air Weight: 239 lb Body Mass Index (BMI) 46.6 Finger Stick Blood Glucose 173 Laboratory Tests Past 24 Hrs 10/25/18 10/25/18 19:26 19:26 WBC 12.6 H RBC 4.35 Hgb 12.6 Hct 39.5 MCV 90.8 MCH 29.0 MCHC 31.9 L RDW 14.4 RDW Differential 47.4 H Plt Count 182 MPV 9.3 Immature Gran % (Auto) 0.500 Neut % (Auto) 79.6 H Lymph % (Auto) 14.3 L [place] % (Auto) 4.9 Eos % (Auto) 0.6 Baso % (Auto) 0.1 Absolute Neuts (auto) 10.1 H Absolute Lymphs (auto) 1.81 Total Counted Not Reportable Sodium 137 Potassium 5.3 H Chloride 102 Carbon Dioxide 26.0 Anion Gap 9 BUN 33 H Creatinine 1.39 H Estim Creat Clear Calc 26.66 Est GFR (MDRD) Af Amer 48 L Est GFR (MDRD) Non-Af 40 L BUN/Creatinine Ratio 23.7 H Glucose 186 H Calcium 9.4 Total Bilirubin 0.70 AST 36 ALT 44 Alkaline Phosphatase 111 Total Protein 8.1 Albumin 3.9 Globulin 4.2 Albumin/Globulin Ratio 0.9 Lipase 296 Assessment/Plan All Active Problems SBO (small bowel obstruction) (Acute) Renal insufficiency (Acute) Confusion (Acute) Fever (Acute) Dehydration (Acute) 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 Will admit to [facility], maintain on IVFs, continue NGT to suction, strict I&Os, IV pain/anti-emetics PRN, serial KUB as needed to montior bowel function, PPI IV, maintain NPO on bowel rest. General surgery Dr. Naranjo consulted and discussed case with her prior to patient admission. If patient without marked improvement by noon 10/26/18 per discussion w/ Dr. Naranjo or worsened status given notable abdominal surgeries prior by warrant transfer to [facility]. (2) Hyperkalemia, Mild: Admission K 5.3, hydrating, repeat BMP in AM. (3) Diabetes mellitus type II: Will continue home insulin long-acting regimen however if blood sugar does decrease may consider one half dose, hold short acting insulin, NPO status, q 6h accu checks w/ ISS. (4) Hypertension: Holding oral regimen, PRN IV hydralazine in interim. (5) Hyperlipidemia: Holding oral statin regimen. (6) Hypothyroidism w/ Hx Thyroid CA: Holding home Synthroid regimen, if prolonged and need arises may consider one half dose IV regimen mission. (7) Morbid Obesity: Weight loss and lifestyle changes encouraged, nutrition consulted, planned upcoming gastric bypass [facility]. Currently has seen cardiology for clearance and now has follow-up with pulmonary for clearance for operative intervention. (8) Chronic Kidney Disease Stage III: Admission BUN/Cr 33/1.39, baseline renal function 1.4, stable, repeat BMP in AM. (9) GERD: PPI IV. (10) DVT Prophylaxis: SCDs, heparin. Code Visit Inpatient E&M: 87932 Init Hosp L3
--- NOTE | 2018-10-25 21:18 | HP.PCM_ITS ---
Problem List (1) SBO (small bowel obstruction) Status: Acute (2) Benign hypertension Status: Chronic (3) History of thyroid cancer Status: Chronic (4) Hyperlipidemia Status: Chronic Qualifiers: Hyperlipidemia type: pure hypercholesterolemia Qualified Code(s): E78.00 - Pure hypercholesterolemia, unspecified; E78.0 - Pure hypercholesterolemia (5) Morbid obesity Status: Chronic (6) Type 2 diabetes mellitus Status: Chronic Qualifiers: Diabetes mellitus terminal carman insulin use: with senior living use Diabetes mellitus complication status: with unspecified complications Qualified Code(s): E11.8 - Type 2 diabetes mellitus with unspecified complications; Z79.4 - jail (current) use of insulin (7) CKD (chronic kidney disease) stage 3, GFR 30-59 ml/min Status: Chronic History of Present Illness Date of Admission: 10/25/18 Chief Complaint: Abdominal pain 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 She did note minimal onset flatus x 1 several hours prior but nothing since. She does have prior history SBO following hernia repair. She has been undergoing evaluation for gastric bypass. In the ED work-up included T 96.5, heart rate 86, BP 174/78, respiratory rate 16, 94% on room air, CBC with WBC 12.6, hemoglobin 12.6, platelet 182 with left shift, CMP with potassium 5.3, BUN/Cr 33/1.39, glucose 186, lipase 296, liver profile unremarkable, CT abdomen and pelvis was distended fluid-filled proximal small bowel loops with a transition appearing to lie along the anterior abdominal wall where there is been prior evidence of an interval herniorrhaphy with ventral hernia seen on the prior study having been repaired, stable hepatic cyst, resolution of fatty infiltration of the liver seen on prior study, 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 Past Medical History Past Medical History (Chronic Problems): Chronic Problems CKD (chronic kidney disease) stage 3, GFR 30-59 ml/min (Chronic) history of kidney lesion (Chronic) History of thyroid cancer (Chronic) Morbid obesity (Chronic) Hyperlipidemia (Chronic) Type 2 diabetes mellitus (Chronic) UTI (lower urinary tract infection) (Chronic) Benign hypertension (Chronic) Allergies adhesive Allergy (Verified 04/05/18 18:41) Hives cephalexin monohydrate [From Keflex] Allergy (Verified 04/05/18 18:41) Hives ciprofloxacin [From Cipro] Allergy (Verified 04/05/18 18:42) Swelling ketorolac tromethamine [From Toradol] Allergy (Verified 04/05/18 18:41) Hives nickel [Nickel] Allergy (Verified 04/05/18 18:41) Other [id number] Reductase Inhibitor Adverse Reaction (Verified 04/05/18 18:41) Other paladium Allergy (Uncoded 04/05/18 18:41) Other Home Medications: Ambulatory Orders Medication Instructions Recorded Aspirin [Aspirin, Baby] 81 mg PO DAILY@0800 08/22/14 DiphenhydrAMINE [Benadryl] 25 mg PO TID PRN PRN 08/22/14 Fish Oil/Dha/Epa [Fish Oil 1,200 1 each PO TID 08/22/14 mg Fish Oil] Gabapentin [Neurontin] 300 mg PO DAILY 08/22/14 Liraglutide [Victoza] 0.6 mg SQ DAILY 08/22/14 Metoprolol Tartrate [Lopressor 25 mg PO BID 08/22/14 (beta laura)] Escitalopram Oxalate [Lexapro] 5 mg PO DAILY 04/05/18 Gabapentin [Neurontin] 600 mg PO QHS 04/05/18 Insulin Aspart [Novolog Flexpen 9 units SC BREAKFAST 04/05/18 ([facility])] Insulin Aspart [Novolog Flexpen 12 units SC DINNER 04/05/18 ([facility])] Insulin Aspart [Novolog Flexpen 12 units SC LUNCH 04/05/18 ([facility])] Insulin Aspart [Novolog Flexpen units SC 04/05/18 ([facility])] Insulin Detemir [Levemir] 18 unit SQ BID 04/05/18 Isosorbide Mononitrate [Isosorbide 30 mg PO DAILY 04/05/18 Mononitrate ER] Cholecalciferol (VIT D3) [Vitamin 1,000 unit PO DAILY 10/25/18 D] Furosemide [Lasix] 10 mg PO BID 10/25/18 Hydrocodone/Acetaminophen 1 tab PO DAILY 10/25/18 [Hydrocodone-Acetamin 10-325 mg] Insulin Aspart [Novolog Flexpen] 11 units SQ DAILY 10/25/18 Levothyroxine Sodium 150 mcg PO DAILY 10/25/18 Lisinopril [Zestril] 2.5 mg PO DAILY 10/25/18 Niacin [Slo-Niacin] 500 mg PO BID 10/25/18 Polyethylene Glycol 3350 [Purelax] 17 g PO DAILY 10/25/18 Surgical History: - - Bilateral total knee replacement, hysterectomy, hernia repair with follow-up intervention secondary to SBO, cholecystectomy, appendectomy. 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 Tobacco Use: Non-smoker Alcohol: None Drugs: None - *Family History Maternal History Items: - - Patient notes a maternal family history of COPD with history of tobacco use, past age 64. Paternal History Items: - - Patient notes a paternal family history of massive PA, cor onary disease, past age 61. Sibling History Items: - - Patient notes a brother with history of ruptured aortic aneurysm, past age 49 in addition to a sister with history of heart disease and diabetes. Review of Systems Constitutional: Reports: Anorexia, Malaise, Weakness, Fatigue. Denies: Chills, Fever, Weight Change HEENT: Denies: Head Aches, Sinus Congestion, Sinus Drainage Cardiovascular: Denies: Chest Pain, Palpitations Respiratory: Denies: Cough, Shortness of breath at rest, Sputum production Gastrointestinal: Reports: Abdominal Pain, Nausea, Vomiting, - - Abdominal distention. Genitourinary: Denies: Dysuria Musculoskeletal: Denies: Joint Pain, Joint Tenderness Skin: Denies: Rash, Wounds Neurological: Denies: Numbness, Tingling, Focal weakness Psychiatric: Reports: Anxiety, Depression. Denies: Homicidal Ideations, Suicidal Ideations Hematologic/ Lymphatic: Denies: Easy Bruising, Easy Bleeding VTE Information - Inpt Only VTE Present on Admission: No VTE Mechan Device Prophylaxis: SCD's VTE Pharm Prophylaxis ordered?: Yes Patient Problems: Active and Suspected Problems SBO (small bowel obstruction) (Acute) Subjective: Seated upright in ED bed, NG tube recently placed, notable output since administration, states feeling mildly improved with less abdominal distention, less tense. Objective: Physical Examination: General: awake, alert, oriented x 3 and cooperative, seated upright in the ED bed, notes feeling mildly improved s/p NGT, less tense abdomen. Skin: normal color, turgor, no icterus, cyanosis. HEENT: AT/NC, EOMI, PERRLA, dry MM, NG in place, no carotid bruits or JVD noted. Lungs: Diminished BS BL, > bases, moderate effort, mild decrease BL bases, no rales, ronchi or wheezing. Heart: regular rate and rhythm; no gallop, rub audible. Abdomen: soft now, prior was very tense pre NGT, generalized TTP, still notably distended, absent BS, unable to assess HSM well secondary to acute presentation and morbid obesity. Extremities: no cyanosis, clubbing, BL LE ankle edema. Neurological: patient awake, alert, oriented x 3; cognitive function intact; pupils equally reactive to light and accomodation; cranial nerves II-XII grossly normal, moving all 4 extremities, no focal deficits, strength severely globally decreased secondary to acute presentation. Psychiatric: affect appears normal, no acute evidence of depressive or anxiety feelings. - Physical Exam Vital Signs Temp Pulse Resp BP Pulse Ox 96.5 F L 86 16 174/78 H 94 10/25/18 18:42 10/25/18 18:42 10/25/18 18:42 10/25/18 18:42 10/25/18 18:42 Oxygen Delivery Method Room Air Weight: 239 lb Body Mass Index (BMI) 46.6 Finger Stick Blood Glucose 173 Laboratory Tests Past 24 Hrs 10/25/18 10/25/18 19:26 19:26 WBC 12.6 H RBC 4.35 Hgb 12.6 Hct 39.5 MCV 90.8 MCH 29.0 MCHC 31.9 L RDW 14.4 RDW Differential 47.4 H Plt Count 182 MPV 9.3 Immature Gran % (Auto) 0.500 Neut % (Auto) 79.6 H Lymph % (Auto) 14.3 L [place] % (Auto) 4.9 Eos % (Auto) 0.6 Baso % (Auto) 0.1 Absolute Neuts (auto) 10.1 H Absolute Lymphs (auto) 1.81 Total Counted Not Reportable Sodium 137 Potassium 5.3 H Chloride 102 Carbon Dioxide 26.0 Anion Gap 9 BUN 33 H Creatinine 1.39 H Estim Creat Clear Calc 26.66 Est GFR (MDRD) Af Amer 48 L Est GFR (MDRD) Non-Af 40 L BUN/Creatinine Ratio 23.7 H Glucose 186 H Calcium 9.4 Total Bilirubin 0.70 AST 36 ALT 44 Alkaline Phosphatase 111 Total Protein 8.1 Albumin 3.9 Globulin 4.2 Albumin/Globulin Ratio 0.9 Lipase 296 Assessment/Plan All Active Problems SBO (small bowel obstruction) (Acute) Renal insufficiency (Acute) Confusion (Acute) Fever (Acute) Dehydration (Acute) 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 Will admit to [facility], maintain on IVFs, continue NGT to suction, strict I&Os, IV pain/anti- emetics PRN, serial KUB as needed to montior bowel function, PPI IV, maintain NPO on bowel rest. General surgery Dr. Naranjo consulted and discussed case with her prior to patient admission. If patient without marked improvement by noon 10/26/18 per discussion w/ Dr. Naranjo or worsened status given notable abdominal surgeries prior by warrant transfer to . (2) Hyperkalemia, Mild: Admission K 5.3, hydrating, repeat BMP in AM. (3) Diabetes mellitus type II: Will continue home insulin long-acting regimen however if blood sugar does decrease may consider one half dose, hold short acting insulin, NPO status, q 6h accu checks w/ ISS. (4) Hypertension: Holding oral regimen, PRN IV hydralazine in interim. (5) Hyperlipidemia: Holding oral statin regimen. (6) Hypothyroidism w/ Hx Thyroid CA: Holding home Synthroid regimen, if prolonged and need arises may consider one half dose IV regimen mission. (7) Morbid Obesity: Weight loss and lifestyle changes encouraged, nutrition consulted, planned upcoming gastric bypass [facility]. Currently has seen cardiology for clearance and now has follow-up with pulmonary for clearance for operative intervention. (8) Chronic Kidney Disease Stage III: Admission BUN/Cr 33/1.39, baseline renal function 1.4, stable, repeat BMP in AM. (9) GERD: PPI IV. (10) DVT Prophylaxis: SCDs, heparin. Code Visit Inpatient E&M: 93784 Init Hosp L3
[2018-10-25 21:25] VITALS: BP 139/73; PULSE 76; RESP 16; O2SAT 95
--- NOTE | 2018-10-25 21:57 | ED.RN ---
30 ML GASTROGRAFIN MIXED WITH 30 ML WATER INSTILLED INTO NG TUBE PER DR TERESA ORDER. NG CLAMPED ALSO PER DR TERESA.
--- NOTE | 2018-10-25 22:03 | PCM.CONS.B ---
- Consult Date of Consult: 10/25/18 - Reason for Consult Chief Complaint: abdominal pain History of Present Illness: 73 y/o WF presents with bowel obstruction. Noted increasing abominal pain and distention over a 2-3 day period culminating today with severe abdominal pain and multiple bouts of emesis. Did have flatus this afternoon and had bowel movements this morning and this afternoon. Last bowel obstruction was in 2006, no problems noted since. Patient is under consideration for bariatric surgery at [facility]. Has complicated past surgical history of multiple ventral hernia repairs with mesh. Past Medical History: (HFpEF) heart failure with preserved ejection fraction (HCC) 06/23/2015? Dr. Simran Go, cardiology Allergic contact dermatitis due to metals 05/21/2012 Angiomyolipoma of right kidney 01/11/2016 Arteriosclerotic heart disease (ASHD) 09/13/2017 CKD stage 3 due to type 2 diabetes mellitus (HCC) 02/06/2015 Coronary artery calcification seen on CAT scan 01/21/2013 Depressive disorder 03/31/2016 Diverticulosis 08/23/2010 ? Chronic lower extremity swelling ? Hearing loss ? HTN (hypertension) 08/12/2014 Morbid obesity (HCC) ? Obstructive sleep apnea ? Rosacea ? History of Thyroid cancer (HCC) 12/2009 - papillary Type II or unspecified type diabetes mellitus without mention of complication, not stated as uncontrolled ? Past Surgical History: APPENDECTOMY ? 05/20/2001 ; THYROIDECTOMY TOTAL OR COMPLETE Bilateral 12/15/2009 ? Papillary Ca COLONOSCOP W/ OR W/O BRSH SPEC ? 06/06/2004 COLONOSCOP W/ OR W/O BRSH SPEC ? 08/23/10 EXCISE EXCESS SKIN TISSUE,OTHER ? 01/17/2002 ? Abdominoplasty LEFT HEART CATH,PERCUTANEOUS ? 09/13/2017 no significant CAD PARTIAL REMOVAL OF KIDNEY Right 03/1991 ? Right side for benign tumor, small lesion removed REMOVAL GALLBLADDER ? 05/20/2001 ? Cholecystectomy-lap REPAIR INCISIONAL HERNIA,REDUCIBLE ? 09/25/2005 ? 7 times total REPAIR INCISIONAL HERNIA,LIZZETH ? 06/11/2007 ? with mesh OTAL ABDOM HYSTERECTOMY ? 05/20/2001 ? PER, for fibroids and BSO TOTAL KNEE REPLACEMENT Left 08/18/2014 ? Knee replacement, total left TOTAL KNEE REPLACEMENT Right 06/12/2012 ? total right knee arthroplasty ? Medications: furosemide (LASIX) 20 mg tablet HYDROcodone-Acetaminophen (NORCO) 10-325 mg per tablet insulin detemir U-100 (LEVEMIR FLEXTOUCH U-100 INSULN) 100 unit/mL (3 mL) inpn injection isosorbide mononitrate ER (IMDUR) 30 mg 24 hr tablet docusate sodium (COLACE ORAL) atorvastatin (LIPITOR) 20 mg tablet Ciclopirox (LOPROX) 8 % solution insulin detemir (LEVEMIR FLEXTOUCH U-100 INSULN SUBCUTANEOUS) HYDROcodone-Acetaminophen (NORCO) 10-325 mg per tablet insulin aspart U-100 (NOVOLOG FLEXPEN U-100 INSULIN) 100 unit/mL inpn lisinopril 2.5 mg tablet insulin aspart U-100 (NOVOLOG FLEXPEN U-100 INSULIN) 100 unit/mL inpn gabapentin 300 mg tid Allergies: Adhesive Tape (Rosins) Cephalexin Monohydrate Ciprofloxacin: Crestor [Rosuvastatin Calcium]Intolerance Keflex [Cephalexin]Hives Lantus [Insulin Glargine]Intolerance PalladiumRash PravastatinIntolerance Toradol [Ketorolac Social history: TOB use denies Lives with Review of Systems: General - denies fevers Cardiovascular denies chest pain Pulmonary denies coughing up blood Gastrointestinal as per HPI, Neurological denies seizures, Genitourinary denies burning with urination, denies blood in urine Hematological denies spontaneous/prolonged bleeding Skin denies open non healing wounds Musculoskeletal has chronic knee pain Endocrine has diabetes, morbidly obese, history of thyroid cancer s/p total thyroidectomy Psychological denies hallucinations Physical examination: Vital signs Temp 98.4F RR 18 BP 107/59 HR 81 General WD/WN WF in no apparent distress, alert and oriented, not septic appearing HEENT Normocephalic. EOM intact with sclera clear and no icterus noted. Neck is supple with no jugular venous distention noted. Trachea is midline. Lungs clear to auscultation. normal breath sounds No rales/rhonchi/wheezing noted. No labored breathing noted, such as retractions. No cough heard. Heart normal S1 and S2 auscultated. No rubs/clicks/murmurs noted. Abdomen soft and obese and distended with tympany and generalized tenderness to palpation, but no peritoneal signs. Extremities bilateral lower extremity dependent swelling. Genitourinary/Rectal deferred Skin normal skin integrity. Neurological non focal Psychological normal affect, patient is calm and appropriate Impression: partial SBO morbid obesity multiple previous ventral hernia repairs Discussion/Plan: I have discussed the above with the patient and her who is present with her. Will observe overnight with IV hydration, NG tube decompression, bowel rest, etc. I have also given her 30 cc gastrografin. Will check KUB in am. If no improvement (passage of flatus) by tomorrow, will transfer patient to main [facility] for surgery. I have told patient that surgery at this hospital would be too risky for her given her multiple medical problems and her multiple previous surgeries. They understand and concur with the above plan I have answered all questions to the patient?s satisfaction and the patient has no further questions.
[2018-10-25 22:34] VITALS: BMI 46.5
[2018-10-25 22:43] VITALS: BP 110/67; PULSE 79; RESP 16; TEMP 36.6; O2SAT 93
[2018-10-25 22:49] LABS: Magnesium 2.2 mg/dL (1.6-2.6)
[2018-10-25] MEDS: 0.9% Normal Saline 1,000 ML 100 ML IV (23:37)
[2018-10-25] MEDS: Heparin Injection (Vial) 5,000 UNIT/ML VIAL 5000 UNIT SC (23:47)
[2018-10-25 23:56] LABS: Bedside Glucose 134 mg/dL (70-110)
[2018-10-26] VITALS (7 sets, daily range): BP systolic 107–135; BP diastolic 59–80; PULSE 73–84; RESP 16–18; TEMP 36.7–37.3; O2SAT 93–99
[2018-10-26] MEDS: 0.9% NaCl Peripheral Flush Adult/Peds IV ×4 (00:07→14:33)
[2018-10-26] MEDS: Morphine 2 MG/ML Syringe IV (00:07)
[2018-10-26] MEDS: Heparin Injection (Vial) 5,000 UNIT/ML VIAL 5000 UNIT SC ×3 (06:22→21:52)
[2018-10-26 06:31] LABS: Bedside Glucose 145 mg/dL (70-110)
--- NOTE | 2018-10-26 06:48 | RAD_ITS ---
STUDY: X-RAY - ABDOMEN/PELVIS REASON FOR EXAM: Female, 73 years old. Small bowel obstruction. TECHNIQUE: AP supine views of the abdomen and pelvis on 4 films. COMPARISON: CT abdomen and pelvis October 25, 2018. FINDINGS: Normal visualized lung bases. Distal nasogastric tube is in the stomach. Contrast from prior study seen throughout the nondistended colon. There are a few loops of gas-filled bowel in the midabdomen that may be nondistended small bowel. There is no demonstrated free abdominal air. Surgical clips consistent with prior cholecystectomy project in the right upper quadrant. The visualized liver, spleen and kidneys are grossly normal in size and morphology. Numerous circular metal fixation coils of prior herniorrhaphies again project at the left upper quadrant, midabdomen, and left lower quadrant. There are stable degenerative changes of the lower thoracic and lower lumbar spine, as well as stable mild levoscoliosis of the lower thoracic spine. RAD/Abdomen Single View (Portable) IMPRESSION: 1. Nonspecific bowel gas pattern. Contrast from prior study now seen throughout the nondistended colon. Distal nasogastric tube is in the stomach. 2. Prior cholecystectomy. 3. Prior herniorrhaphies of the left and mid abdominal wall. Electronically Signed: Kip Li MD at 10:58 EST , Service support ,
[2018-10-26 07:42] LABS: Absolute Lymphocyte Count 2.17 X10^3/ul (0.83-4.51); Absolute Neutrophil Count 6.3 X10^3/uL (2.0-7.7); Basophil# 0.02 X10^3/uL; Basophil% 0.2 % (0-1); Eosinophil# 0.05 X10^3/uL; Eosinophils% 0.5 % (0-5); Hematocrit 34.4 % (37-47); Hemoglobin 10.9 g/dl (12.0-15.0); Lymphocyte # 2.17 X10^3/ul (4.0); Lymphocyte % 23.5 % (19-41); Mean Corp Hgb Conc 31.7 g/gl (32-36); Mean Corpuscular Hgb 29.5 pg (27.0-32.0); Mean Corpuscular Volume 93.2 fL (81-99); Mean Platelet Vol. 8.8 fl (6.2-12.0); Monocyte# 0.65 X10^3/uL; Neutrophil # 6.31 X10^3/uL (2.7-7.7); Neutrophil % 68.4 % (47-70); Platelet Count 169 K/mm3 (150-450); RBC Distribution Width CV 14.7 % (11.6-14.6); RBC Distribution Width SD 47.4 fl (35.1-43.9); Red Blood Count 3.69 M/mm3 (4.2-5.4); White Blood Count 9.2 K/mm3 (4.4-11.0)
[2018-10-26 07:46] LABS: POSITIVE COUNT NO; POSITIVE DIFFERENTIAL NO; POSITIVE MORPHOLOGY NO
[2018-10-26 07:58] LABS: BUN 31 mg/dL (7-18); Creatinine, Serum 1.26 mg/dL (0.55-1.02); Estimated Creatinine Clearance 29.42 ml/min; Glucose 173 mg/dL (74-106)
[2018-10-26 07:59] LABS: Anion Gap 9 (5-15); BUN/Creat Ratio 24.6 RATIO (10-20); Calcium,Total 8.7 mg/dL (8.5-10.1); Chloride 107 mmol/L (98-107); EST Glomerular Filtration Rate 44 mL/min (>60); Est Glom Filt Rate - Afr Amer 54 mL/min (>60); Potassium 4.4 mmol/L (3.5-5.1); Sodium Level 141 mmol/L (136-145)
--- NOTE | 2018-10-26 09:21 | PCM.PN.SRG ---
Patient Problems: Active and Suspected Problems SBO (small bowel obstruction) (Acute) Subjective: patient feels much improved, denies abdominal pain at present states that she has couple of bowel movements with a large one this morning, but does not think she has passed flatus - Physical Exam General: Alert, Oriented x3 HEENT: Atraumatic Oral: Moist Mucosa Neck: Supple Lungs: Normal air movement Abdomen: Bowel Sounds Present, Soft - much softer than last night - still protuberant (patient's normal body habitus) Vital Signs Temp Pulse Resp BP Pulse Ox 99.0 F 84 18 135/69 H 97 10/26/18 08:04 10/26/18 08:04 10/26/18 08:04 10/26/18 08:04 10/26/18 08:04 Oxygen Delivery Method Room Air Weight: 108.097 kg Body Mass Index (BMI) 46.5 Finger Stick Blood Glucose 173 Intake and Output for Last 24 Hours 10/24/18 10/25/18 10/26/18 23:59 23:59 23:59 Intake Total 1383 / 1383 Output Total 530 / 530 Balance 853 / 853 Laboratory Tests Past 24 Hrs 10/25/18 10/25/18 10/25/18 19:26 19:26 19:26 WBC 12.6 H RBC 4.35 Hgb 12.6 Hct 39.5 MCV 90.8 MCH 29.0 MCHC 31.9 L RDW 14.4 RDW Differential 47.4 H Plt Count 182 MPV 9.3 Immature Gran % (Auto) 0.500 Neut % (Auto) 79.6 H Lymph % (Auto) 14.3 L [place] % (Auto) 4.9 Eos % (Auto) 0.6 Baso % (Auto) 0.1 Absolute Neuts (auto) 10.1 H Absolute Lymphs (auto) 1.81 Total Counted Not Reportable Sodium 137 Potassium 5.3 H Chloride 102 Carbon Dioxide 26.0 Anion Gap 9 BUN 33 H Creatinine 1.39 H Estim Creat Clear Calc 26.66 Est GFR (MDRD) Af Amer 48 L Est GFR (MDRD) Non-Af 40 L BUN/Creatinine Ratio 23.7 H Glucose 186 H Calcium 9.4 Magnesium 2.2 Total Bilirubin 0.70 AST 36 ALT 44 Alkaline Phosphatase 111 Total Protein 8.1 Albumin 3.9 Globulin 4.2 Albumin/Globulin Ratio 0.9 Lipase 296 10/26/18 10/26/18 07:30 07:30 WBC 9.2 RBC 3.69 L Hgb 10.9 L Hct 34.4 L MCV 93.2 MCH 29.5 MCHC 31.7 L RDW 14.7 H RDW Differential 47.4 H Plt Count 169 MPV 8.8 Immature Gran % (Auto) 0.400 Neut % (Auto) 68.4 Lymph % (Auto) 23.5 [place] % (Auto) 7.0 Eos % (Auto) 0.5 Baso % (Auto) 0.2 Absolute Neuts (auto) 6.3 Absolute Lymphs (auto) 2.17 Total Counted Not Reportable Sodium 141 Potassium 4.4 Chloride 107 Carbon Dioxide 25.0 Anion Gap 9 BUN 31 H Creatinine 1.26 H Estim Creat Clear Calc 29.42 Est GFR (MDRD) Af Amer 54 L Est GFR (MDRD) Non-Af 44 L BUN/Creatinine Ratio 24.6 H Glucose 173 H Calcium 8.7 Magnesium Total Bilirubin AST ALT Alkaline Phosphatase Total Protein Albumin Globulin Albumin/Globulin Ratio Lipase POC Glucose 10/26/18 10/25/18 06:20 23:48 POC Glucose 145 H 134 H Medical Necessity - Tobacco Use Smoking Status: Former smoker Tobacco Use: Non-smoker Assessment/Plan All Active Problems SBO (small bowel obstruction) (Acute) Renal insufficiency (Acute) Confusion (Acute) Fever (Acute) Dehydration (Acute) Impression: partial small bowel obstruction - resolved Plan: I have reviewed the KUB from this morning - there is contrast in the colon - thus no small bowel blockage (this has resolved) but patient states that she has not passed flatus will therefore clamp NG tube - encourage ambulation If patient passes flatus - d/c NG tube and start clear liquid diet If she tolerates clear liquids, can d/c to home
--- NOTE | 2018-10-26 09:29 | NURSING ---
NG clamped at this time, pt ambulating in hallway with .
[2018-10-26] MEDS: 0.9% Normal Saline 1,000 ML 100 ML IV ×2 (09:49→21:53)
[2018-10-26] MEDS: Insulin Lispro 100 UNIT/ML INSULN.PEN SC (11:10)
[2018-10-26 11:11] LABS: Bedside Glucose 190 mg/dL (70-110)
--- NOTE | 2018-10-26 13:03 | PCM.PROGNOTE ---
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 She has a history of generalized abdominal pain but for the 3 days preceding her presentation to the emergency room it had gotten worse and was now associated with nausea and vomiting. She has a history of small bowel obstruction following hernia repair in the past. Vital signs in the emergency room were temperature 96.5, heart rate 86, blood pressure 174/78, respiratory rate 16 and she was 94% saturated on room air. White blood cell count was elevated at 12.6 and the hemoglobin was also 12.6 with normal platelets. There was a left shift present. Potassium was increased at 5.3 and the BUN was 33 with a creatinine of 1.3 which is within her baseline. Lipase was normal and the liver panel was unremarkable. A CT scan of the abdomen and pelvis showed a distended fluid-filled proximal small bowel loops with a transition zone appearing to lie along the anterior abdominal wall where she had had multiple previous herniorrhaphies for ventral hernia. An NG tube was inserted in the emergency department and abdominal distention improved. All sounds were absent and she denied passing any flatus. She was admitted to the hospital with a diagnosis of small bowel obstruction and Dr. Naranjo was consulted to participate in management. Dr. Naranjo elected to continue IV hydration, NG tube decompression and bowel rest overnight and reevaluate in the a.m. All events of the past 24 hours of been reviewed. I reviewed Dr. Naranjo's progress note from this a.m. and the patient is apparently much improved and denies abdominal pain. She had a few bowel movements last night and a large one this morning. All sounds were present in the abdomen was soft. Gastrografin was given last night and there was evidence of contrast in the colon this morning. The NG tube has been clamped and she was encouraged to ambulate. If she passes flatus then the NG can be discontinued and she can be started on a clear liquid diet. She has been afebrile since admission. Vital signs are stable. Pulse ox on room air ranges from 93-97%. All lab was personally reviewed. Hemoglobin is low at 10.9 today but the platelets and the white blood cell count are now within normal limits and the WBC differential is normal. Potassium is 4.4 today and the BUN is 31 with a creatinine of 1.26, down from 1.39 yesterday. Blood sugars are adequately controlled. Objective: PHYSICAL EXAM: GENERAL: alert, oriented X 3, Cooperative, NAD ORAL: moist mucosa, no mucosal lesions NECK: No JVD, supple, trachea midline LUNGS: CTA, diminished, symmetric chest expansion HEART: RRR, Normal S1 and S2, no rub, no gallop ABDOMEN: soft, NT, minimal distention, BS present, no guarding with palpation, obese EXTREMITIES: edema, no cyanosis, no calf tenderness SKIN: No rashes, no breakdown NEUROLOGIC: no focal neurologic deficits PSYCH: appropriate, normal affect, pleasant - Physical Exam Vital Signs Temp Pulse Resp BP Pulse Ox 99.0 F 84 18 135/69 H 97 10/26/18 08:04 10/26/18 08:04 10/26/18 08:04 10/26/18 08:04 10/26/18 08:04 Oxygen Delivery Method Room Air Weight: 238 lb 5 oz Body Mass Index (BMI) 46.5 Finger Stick Blood Glucose 173 Intake and Output for Last 24 Hours 10/24/18 10/25/18 10/26/18 23:59 23:59 23:59 Intake Total 1383 / 1383 Output Total 530 / 530 Balance 853 / 853 Laboratory Tests Past 24 Hrs 10/25/18 10/25/18 10/25/18 19:26 19:26 19:26 WBC 12.6 H RBC 4.35 Hgb 12.6 Hct 39.5 MCV 90.8 MCH 29.0 MCHC 31.9 L RDW 14.4 RDW Differential 47.4 H Plt Count 182 MPV 9.3 Immature Gran % (Auto) 0.500 Neut % (Auto) 79.6 H Lymph % (Auto) 14.3 L Cotton % (Auto) 4.9 Eos % (Auto) 0.6 Baso % (Auto) 0.1 Absolute Neuts (auto) 10.1 H Absolute Lymphs (auto) 1.81 Total Counted Not Reportable Sodium 137 Potassium 5.3 H Chloride 102 Carbon Dioxide 26.0 Anion Gap 9 BUN 33 H Creatinine 1.39 H Estim Creat Clear Calc 26.66 Est GFR (MDRD) Af Amer 48 L Est GFR (MDRD) Non-Af 40 L BUN/Creatinine Ratio 23.7 H Glucose 186 H Calcium 9.4 Magnesium 2.2 Total Bilirubin 0.70 AST 36 ALT 44 Alkaline Phosphatase 111 Total Protein 8.1 Albumin 3.9 Globulin 4.2 Albumin/Globulin Ratio 0.9 Lipase 296 10/26/18 10/26/18 07:30 07:30 WBC 9.2 RBC 3.69 L Hgb 10.9 L Hct 34.4 L MCV 93.2 MCH 29.5 MCHC 31.7 L RDW 14.7 H RDW Differential 47.4 H Plt Count 169 MPV 8.8 Immature Gran % (Auto) 0.400 Neut % (Auto) 68.4 Lymph % (Auto) 23.5 Cotton % (Auto) 7.0 Eos % (Auto) 0.5 Baso % (Auto) 0.2 Absolute Neuts (auto) 6.3 Absolute Lymphs (auto) 2.17 Total Counted Not Reportable Sodium 141 Potassium 4.4 Chloride 107 Carbon Dioxide 25.0 Anion Gap 9 BUN 31 H Creatinine 1.26 H Estim Creat Clear Calc 29.42 Est GFR (MDRD) Af Amer 54 L Est GFR (MDRD) Non-Af 44 L BUN/Creatinine Ratio 24.6 H Glucose 173 H Calcium 8.7 Magnesium Total Bilirubin AST ALT Alkaline Phosphatase Total Protein Albumin Globulin Albumin/Globulin Ratio Lipase POC Glucose 10/26/18 10/26/18 10/25/18 11:04 06:20 23:48 POC Glucose 190 H 145 H 134 H Medical Necessity - Tobacco Use Smoking Status: Former smoker Tobacco Use: Non-smoker Assessment/Plan All Active Problems SBO (small bowel obstruction) (Acute) Renal insufficiency (Acute) Confusion (Acute) Fever (Acute) Dehydration (Acute) Impressions 1. Small bowel obstruction 2. Hyperkalemia-resolved with hydration 3. Diabetes mellitus type 2 4. Hypertension 5. Hyperlipidemia 6. Surgical hypothyroidism following thyroidectomy for thyroid cancer 7. Morbid obesity 8. Chronic renal failure stage III 9. GERD I did review Dr. Naranjo's note. If she passes significant flatus today we will advance to clear liquids and discontinue the NG tube. Discharge when she is able to tolerate clear liquids. Continue IV fluids until she is tolerating clear liquids without abdominal pain, nausea or vomiting. Code Visit Inpatient E&M: 49989 Subs Hosp L2
--- NOTE | 2018-10-26 15:06 | CASEMGMT ---
Face to Face with patient for initial transition planning/care coordination assessment. CHRISTOPHER DRISCOLL introduced self and role at [facility], voices understanding. Care providers, pharmacy, and demographics verified. PCP: Dr. Davila Specialists: Seeing Dr. Valles 12/03 for Bipap setting confirmation in preparation for Gastric Bypass surgery. Preferred Pharmacy: [facility] Insurance: [employer] Living Arrangements: Pt lives in one story home with her . Two steps to enter through the garage or front porch. Pt is independent with ADLs. Her is available to assist her with any needs. Transportation: Drives independently DME/HHC: Bip[facility] from [facility]. No other DME. Plan: Home, no needs anticipated. Jamie Eastman RN
[2018-10-26 18:16] LABS: Bedside Glucose 129 mg/dL (70-110)
[2018-10-26 21:56] LABS: Bedside Glucose 140 mg/dL (70-110)
[2018-10-27] MEDS: Morphine 2 MG/ML Syringe IV (00:01)
[2018-10-27 00:11] LABS: Bedside Glucose 124 mg/dL (70-110)
[2018-10-27] MEDS: HYDROcodone Bitartrate/Apap 5/325 Tablet PO (02:47)
[2018-10-27] MEDS: Gabapentin 600 MG Tablet PO (02:47)
[2018-10-27 02:50] VITALS: BP 147/64; PULSE 75; RESP 18; TEMP 37.1; O2SAT 98
[2018-10-27] MEDS: Levothyroxine 150 MCG Tablet PO (05:43)
[2018-10-27] MEDS: Heparin Injection (Vial) 5,000 UNIT/ML VIAL 5000 UNIT SC (05:43)
[2018-10-27 08:15] VITALS: O2SAT 94
[2018-10-27] MEDS: Insulin Lispro 100 UNIT/ML INSULN.PEN 18 UNIT SC (08:37)
[2018-10-27 08:51] LABS: Bedside Glucose 141 mg/dL (70-110)
[2018-10-27 10:00] VITALS: BP 120/78; PULSE 62; RESP 18; TEMP 36.7; O2SAT 95
[2018-10-27 10:12] VITALS: PULSE 62
[2018-10-27] MEDS: Metoprolol Tartrate 25 MG Tablet PO (10:12)
[2018-10-27] MEDS: Aspirin 81 MG TAB.CHEW PO (10:12)
[2018-10-27] MEDS: Isosorbide Mononitrate 30 MG Tablet PO (10:12)
[2018-10-27] MEDS: Escitalopram Oxalate 10 MG Tablet 5 MG PO (10:12)
[2018-10-27] MEDS: Gabapentin 300 MG Capsule PO (10:12)
[2018-10-27] MEDS: Lisinopril 2.5 MG Tablet PO (10:12)
[2018-10-27] MEDS: Furosemide 20 MG Tablet 10 MG PO (10:14)
--- NOTE | 2018-10-27 10:35 | PCM.PN.SRG ---
Patient Problems: Active and Suspected Problems SBO (small bowel obstruction) (Acute) Subjective: Patient states that she passed flatus all night long also with several bowel movements, last one was a bit runny Denies abdominal pain, overall feels well - Physical Exam General: Oriented x3 Oral: Moist Mucosa Neck: Supple Lungs: Normal air movement Abdomen: Bowel Sounds Present, Soft Vital Signs Temp Pulse Resp BP Pulse Ox 98.8 F 62 18 147/64 H 94 10/27/18 02:50 10/27/18 10:12 10/27/18 02:50 10/27/18 02:50 10/27/18 08:15 Oxygen Delivery Method Room Air Weight: 108 kg Body Mass Index (BMI) 46.5 Finger Stick Blood Glucose 173 Intake and Output for Last 24 Hours 10/25/18 10/26/18 10/27/18 23:59 23:59 23:59 Intake Total 2266 / 2266 2379 / 2379 Output Total 1630 / 1630 950 / 950 Balance 636 / 636 1429 / 1429 POC Glucose 10/27/18 10/26/18 10/26/18 08:33 23:53 21:49 POC Glucose 141 H 124 H 140 H 10/26/18 10/26/18 18:08 11:04 POC Glucose 129 H 190 H Medical Necessity - Tobacco Use Smoking Status: Former smoker Tobacco Use: Non-smoker Assessment/Plan All Active Problems SBO (small bowel obstruction) (Acute) Renal insufficiency (Acute) Confusion (Acute) Fever (Acute) Dehydration (Acute) Impression: partial small bowel obstruction - resolved Plan: Patient's partial SBO has resolved, tolerating liquids d/c to home
[2018-10-27] MEDS: Insulin Lispro 100 UNIT/ML INSULN.PEN 15 UNIT SC (11:35)
[2018-10-27] MEDS: Insulin Lispro 100 UNIT/ML INSULN.PEN SC (11:35)
[2018-10-27 11:46] LABS: Bedside Glucose 158 mg/dL (70-110)
--- NOTE | 2018-10-27 13:27 | DCINST_ITS ---
- Discharge Diagnoses Current Active Problems: Current Active and Chronic Problems SBO (small bowel obstruction) (Acute) CKD (chronic kidney disease) stage 3, GFR 30-59 ml/min (Chronic) You will use the following diet at home:: Calorie/Carbohydrate Controlled (specify 1200, 1400, etc), Cardiac, Other - low residue Your food should be the consistency of: Regular Your liquids should be the consistency of: Regular/Thin Discharge Activity: Return to Normal Activity Call your doctor if you observe: Fever of 101 or Higher, Shortness of breath, Dizziness, Fainting spells, Swelling in the ankles, Chest pain, - - Recurrent nausea/vomiting/abdominal pain Instructions: Low-Residue Diet Additional Instructions: Stick to clear liquids for the next 24 hours and then advance as tolerated to low residue Allergies/Adverse Reactions: Allergies adhesive Allergy (Verified 04/05/18 18:41) Hives cephalexin monohydrate [From Keflex] Allergy (Verified 04/05/18 18:41) Hives ciprofloxacin [From Cipro] Allergy (Verified 04/05/18 18:42) Swelling ketorolac tromethamine [From Toradol] Allergy (Verified 04/05/18 18:41) Hives nickel [Nickel] Allergy (Verified 04/05/18 18:41) Other Vcmsfcw-[id number]-Xet Reductase Inhibitor Adverse Reaction (Verified 04/05/18 18:41) Other paladium Allergy (Uncoded 04/05/18 18:41) Other Medications to take at Discharge Aspirin [Aspirin, Baby] 81 mg PO DAILY@0800 08/22/14 DiphenhydrAMINE [Benadryl] 25 mg PO TID PRN PRN 08/22/14 Fish Oil/Dha/Epa [Fish Oil 1,200 mg Fish Oil] 1 each PO TID 08/22/14 Gabapentin [Neurontin] 300 mg PO DAILY 08/22/14 Liraglutide [Victoza] 1.8 mg SQ DAILY 08/22/14 Metoprolol Tartrate [Lopressor (beta laura)] 25 mg PO BID 08/22/14 Escitalopram Oxalate [Lexapro] 5 mg PO DAILY 04/05/18 Gabapentin [Neurontin] 600 mg PO QHS 04/05/18 Insulin Aspart [Novolog Flexpen] 15 units SC LUNCH 04/05/18 Insulin Aspart [Novolog Flexpen] 18 units SC BREAKFAST 04/05/18 Insulin Aspart [Novolog Flexpen] 18 units SC DINNER 04/05/18 Insulin Aspart [Novolog Flexpen] See Protocol SC 4X/DAY 04/05/18 Insulin Detemir [Levemir] 18 unit SQ BID 04/05/18 Isosorbide Mononitrate [Isosorbide Mononitrate ER] 30 mg PO DAILY 04/05/18 Cholecalciferol (VIT D3) [Vitamin D3] 1,000 unit PO DAILY 10/25/18 Furosemide [Lasix] 10 mg PO BID 10/25/18 Hydrocodone/Acetaminophen [Hydrocodone-Acetamin 10-325 mg] 1 tab PO DAILY 10/25/18 Insulin Aspart [Novolog Flexpen] 11 units SQ DAILY 10/25/18 Levothyroxine Sodium 150 mcg PO DAILY 10/25/18 Lisinopril [Zestril] 2.5 mg PO DAILY 10/25/18 Niacin [Slo-Niacin] 500 mg PO BID 10/25/18 Polyethylene Glycol 3350 [Purelax] 17 g PO DAILY 10/25/18 Prochlorperazine Maleate [Compazine] 10 mg PO Q6H PRN PRN #12 tab 10/27/18 The following prescriptions were given: Prochlorperazine Maleate [Compazine] 10 mg PO Q6H PRN PRN #12 tab PRN Reason: Nausea/Vomiting Primary Care Physician: Jesus Davila MD [Primary Care Provider] - Please follow up with your Primary Care Physician in: as needed Test Results: Test results from this visit will be discussed in further detail at your follow- up appointment, if applicable. Proposed Discharge Date: 10/27/18
--- NOTE | 2018-10-27 13:28 | PCM.DC.SUM ---
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 Distended fluid-filled proximal small bowel loops. The transition appears to lie along the anterior abdominal wall where there is been evidence of interval herniorrhaphy. The ventral hernia seen on the previous study has been repaired. 2. Stable hepatic cyst. There is resolution of fatty infiltration of liver seen on the prior study. 3. 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 4. No other major interval change. Electronically Signed: Danny Veloz DO at 20:25 EST Tel [phone], Service support , [facility] X-Ray 10/25/18 21:01 IMPRESSION: NG tube with its tip in the proximal stomach. Electronically Signed: Danny Veloz DO at 21:22 EST Tel [phone], Service support , [facility] X-Ray 10/26/18 06:48 IMPRESSION: 1. Nonspecific bowel gas pattern. Contrast from prior study now seen throughout the nondistended colon. Distal nasogastric tube is in the stomach. 2. Prior cholecystectomy. 3. Prior herniorrhaphies of the left and mid abdominal wall. Electronically Signed: Kip Li MD at 10:58 EST , Service support , Dr. 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 She has a history of generalized abdominal pain and has had multiple ventral hernia repairs but, for the 3 days preceding her presentation to the emergency room the pain had gotten worse and was now associated with nausea and vomiting. She has a history of small bowel obstruction following hernia repair in the past. Vital signs in the emergency room were temperature 96.5, heart rate 86, blood pressure 174/78, respiratory rate 16 and she was 94% saturated on room air. White blood cell count was elevated at 12.6 and the hemoglobin was also 12.6 with normal platelets. There was a left shift present. Potassium was increased at 5.3 and the BUN was 33 with a creatinine of 1.3 which is within her baseline. Lipase was normal and the liver panel was unremarkable. A CT scan of the abdomen and pelvis showed a distended fluid-filled proximal small bowel loops with a transition zone appearing to lie along the anterior abdominal wall where she had had multiple previous herniorrhaphies for ventral hernia. An NG tube was inserted in the emergency department and abdominal distention improved. Bowel sounds were absent and she denied passing any flatus. She was admitted to the hospital with a diagnosis of small bowel obstruction and Dr. Naranjo was consulted to participate in management. Dr. Naranjo elected to continue IV hydration, NG tube decompression and bowel rest overnight and reevaluate in the a.m. On 10/27 she was passing Flatus and the NG was removed. She was started on clear liquids and she tolerated this without recurrence of abdominal pain, nausea or emesis. She was discharged home and instructed to stick with clear liquids for the next 24 hours and then advance as tolerated to a low residue diet. She will follow up with Dr. Davila as needed. PHYSICAL EXAM: GENERAL: alert, oriented X 3, Cooperative, NAD, NG is out ORAL: moist mucosa, no mucosal lesions NECK: No JVD, supple, trachea midline LUNGS: CTA, diminished, symmetric chest expansion HEART: RRR, Normal S1 and S2, no rub, no gallop ABDOMEN: soft, NT, minimal distention, BS present, no guarding with palpation, obese EXTREMITIES: edema, no cyanosis, no calf tenderness SKIN: No rashes, no breakdown NEUROLOGIC: no focal neurologic deficits PSYCH: appropriate, normal affect, pleasant This note was generated with [employer] dictation software. It may contain incorrect words, spelling, and punctuation that were not noted in checking the note before signing. Patient Problems: Active and Suspected Problems SBO (small bowel obstruction) (Acute) - Physical Exam Vital Signs Temp Pulse Resp BP Pulse Ox 98.0 F 62 18 120/78 95 10/27/18 10:00 10/27/18 10:12 10/27/18 10:00 10/27/18 10:00 10/27/18 10:00 Oxygen Delivery Method Room Air Weight: 238 lb 1.588 oz Body Mass Index (BMI) 46.5 Finger Stick Blood Glucose 173 Intake and Output for Last 24 Hours 10/25/18 10/26/18 10/27/18 23:59 23:59 23:59 Intake Total 2266 / 2266 3430 / 3430 Output Total 1630 / 1630 1750 / 1750 Balance 636 / 636 1680 / 1680 POC Glucose 10/27/18 10/27/18 10/26/18 11:31 08:33 23:53 POC Glucose 158 H 141 H 124 H 10/26/18 10/26/18 21:49 18:08 POC Glucose 140 H 129 H Discharge Activity: Return to Normal Activity Call your doctor if you observe: Fever of 101 or Higher, Shortness of breath, Dizziness, Fainting spells, Swelling in the ankles, Chest pain, - - Recurrent nausea/vomiting/abdominal pain Home Medications: Medications to take at Discharge Aspirin [Aspirin, Baby] 81 mg PO DAILY@0800 08/22/14 DiphenhydrAMINE [Benadryl] 25 mg PO TID PRN PRN 08/22/14 Fish Oil/Dha/Epa [Fish Oil 1,200 mg Fish Oil] 1 each PO TID 08/22/14 Gabapentin [Neurontin] 300 mg PO DAILY 08/22/14 Liraglutide [Victoza] 1.8 mg SQ DAILY 08/22/14 Metoprolol Tartrate [Lopressor (beta laura)] 25 mg PO BID 08/22/14 Escitalopram Oxalate [Lexapro] 5 mg PO DAILY 04/05/18 Gabapentin [Neurontin] 600 mg PO QHS 04/05/18 Insulin Aspart [Novolog Flexpen] 15 units SC LUNCH 04/05/18 Insulin Aspart [Novolog Flexpen] 18 units SC BREAKFAST 04/05/18 Insulin Aspart [Novolog Flexpen] 18 units SC DINNER 04/05/18 Insulin Aspart [Novolog Flexpen] See Protocol SC 4X/DAY 04/05/18 Insulin Detemir [Levemir] 18 unit SQ BID 04/05/18 Isosorbide Mononitrate [Isosorbide Mononitrate ER] 30 mg PO DAILY 04/05/18 Cholecalciferol (VIT D3) [Vitamin D3] 1,000 unit PO DAILY 10/25/18 Furosemide [Lasix] 10 mg PO BID 10/25/18 Hydrocodone/Acetaminophen [Hydrocodone-Acetamin 10-325 mg] 1 tab PO DAILY 10/25/18 Insulin Aspart [Novolog Flexpen] 11 units SQ DAILY 10/25/18 Levothyroxine Sodium 150 mcg PO DAILY 10/25/18 Lisinopril [Zestril] 2.5 mg PO DAILY 10/25/18 Niacin [Slo-Niacin] 500 mg PO BID 10/25/18 Polyethylene Glycol 3350 [Purelax] 17 g PO DAILY 10/25/18 Prochlorperazine Maleate [Compazine] 10 mg PO Q6H PRN PRN #12 tab 10/27/18 Following Prescrptions Were Given to Patient: Prochlorperazine Maleate [Compazine] 10 mg PO Q6H PRN PRN #12 tab PRN Reason: Nausea/Vomiting Primary Care Physician: Jesus Davila MD [Primary Care Provider] - Please follow up with your Primary Care Physician in: as needed Patient Instructions: Low-Residue Diet Disposition: Home Minutes spent on discharge:: 30 Patient Condition:: Good Medical Necessity - Tobacco Use Smoking Status: Former smoker Tobacco Use: Non-smoker Meaningful Use Info Meaningful Use Diagnoses (Choose all that apply): None applicable Code Visit Inpatient E&M: 60821 [facility]
--- NOTE | 2018-10-27 13:32 | DS.PCM_ITS ---
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 Distended fluid-filled proximal small bowel loops. The transition appears to lie along the anterior abdominal wall where there is been evidence of interval herniorrhaphy. The ventral hernia seen on the previous study has been repaired. 2. Stable hepatic cyst. There is resolution of fatty infiltration of liver seen on the prior study. 3. 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 4. No other major interval change. Electronically Signed: Danny Veloz DO at 20:25 EST Tel [phone], Service support , [facility]UB X-Ray 10/25/18 21:01 IMPRESSION: NG tube with its tip in the proximal stomach. Electronically Signed: Danny Veloz DO at 21:22 EST Tel [phone], Service support , KUB X-Ray 10/26/18 06:48 IMPRESSION: 1. Nonspecific bowel gas pattern. Contrast from prior study now seen throughout the nondistended colon. Distal nasogastric tube is in the stomach. 2. Prior cholecystectomy. 3. Prior herniorrhaphies of the left and mid abdominal wall. Electronically Signed: Kip Li MD at 10:58 EST , Service support , Dr. 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 She has a history of generalized abdominal pain and has had multiple ventral hernia repairs but, for the 3 days preceding her presentation to the emergency room the pain had gotten worse and was now associated with nausea and vomiting. She has a history of small bowel obstruction following hernia repair in the past. Vital signs in the emergency room were temperature 96.5, heart rate 86, blood pressure 174/78, respiratory rate 16 and she was 94% saturated on room air. White blood cell count was elevated at 12.6 and the hemoglobin was also 12.6 with normal platelets. There was a left shift present. Potassium was increased at 5.3 and the BUN was 33 with a creatinine of 1.3 which is within her baseline. Lipase was normal and the liver panel was unremarkable. A CT scan of the abdomen and pelvis showed a distended fluid-filled proximal small bowel loops with a transition zone appearing to lie along the anterior abdominal wall where she had had multiple previous herniorrhaphies for ventral hernia. An NG tube was inserted in the emergency department and abdominal distention improved. Bowel sounds were absent and she denied passing any flatus. She was admitted to the hospital with a diagnosis of small bowel obstruction and Dr. Naranjo was consulted to participate in management. Dr. Naranjo elected to continue IV hydration, NG tube decompression and bowel rest overnight and reevaluate in the a.m. On 10/27 she was passing Flatus and the NG was removed. She was started on clear liquids and she tolerated this without recurrence of abdominal pain, nausea or emesis. She was discharged home and instructed to stick with clear liquids for the next 24 hours and then advance as tolerated to a low residue diet. She will follow up with Dr. Davila as needed. PHYSICAL EXAM: GENERAL: alert, oriented X 3, Cooperative, NAD, NG is out ORAL: moist mucosa, no mucosal lesions NECK: No JVD, supple, trachea midline LUNGS: CTA, diminished, symmetric chest expansion HEART: RRR, Normal S1 and S2, no rub, no gallop ABDOMEN: soft, NT, minimal distention, BS present, no guarding with palpation, obese EXTREMITIES: edema, no cyanosis, no calf tenderness SKIN: No rashes, no breakdown NEUROLOGIC: no focal neurologic deficits PSYCH: appropriate, normal affect, pleasant This note was generated with Pix[employer] dictation software. It may contain incorrect words, spelling, and punctuation that were not noted in checking the note before signing. Patient Problems: Active and Suspected Problems SBO (small bowel obstruction) (Acute) - Physical Exam Vital Signs Temp Pulse Resp BP Pulse Ox 98.0 F 62 18 120/78 95 10/27/18 10:00 10/27/18 10:12 10/27/18 10:00 10/27/18 10:00 10/27/18 10:00 Oxygen Delivery Method Room Air Weight: 238 lb 1.588 oz Body Mass Index (BMI) 46.5 Finger Stick Blood Glucose 173 Intake and Output for Last 24 Hours 10/25/18 10/26/18 10/27/18 23:59 23:59 23:59 Intake Total 2266 / 2266 3430 / 3430 Output Total 1630 / 1630 1750 / 1750 Balance 636 / 636 1680 / 1680 POC Glucose 10/27/18 10/27/18 10/26/18 11:31 08:33 23:53 POC Glucose 158 H 141 H 124 H 10/26/18 10/26/18 21:49 18:08 POC Glucose 140 H 129 H Discharge Activity: Return to Normal Activity Call your doctor if you observe: Fever of 101 or Higher, Shortness of breath, Dizziness, Fainting spells, Swelling in the ankles, Chest pain, - - Recurrent nausea/vomiting/abdominal pain Home Medications: Medications to take at Discharge Aspirin [Aspirin, Baby] 81 mg PO DAILY@0800 08/22/14 DiphenhydrAMINE [Benadryl] 25 mg PO TID PRN PRN 08/22/14 Fish Oil/Dha/Epa [Fish Oil 1,200 mg Fish Oil] 1 each PO TID 08/22/14 Gabapentin [Neurontin] 300 mg PO DAILY 08/22/14 Liraglutide [Victoza] 1.8 mg SQ DAILY 08/22/14 Metoprolol Tartrate [Lopressor (beta laura)] 25 mg PO BID 08/22/14 Escitalopram Oxalate [Lexapro] 5 mg PO DAILY 04/05/18 Gabapentin [Neurontin] 600 mg PO QHS 04/05/18 Insulin Aspart [Novolog Flexpen] 15 units SC LUNCH 04/05/18 Insulin Aspart [Novolog Flexpen] 18 units SC BREAKFAST 04/05/18 Insulin Aspart [Novolog Flexpen] 18 units SC DINNER 04/05/18 Insulin Aspart [Novolog Flexpen] See Protocol SC 4X/DAY 04/05/18 Insulin Detemir [Levemir] 18 unit SQ BID 04/05/18 Isosorbide Mononitrate [Isosorbide Mononitrate ER] 30 mg PO DAILY 04/05/18 Cholecalciferol (VIT D3) [Vitamin D3] 1,000 unit PO DAILY 10/25/18 Furosemide [Lasix] 10 mg PO BID 10/25/18 Hydrocodone/Acetaminophen [Hydrocodone-Acetamin 10-325 mg] 1 tab PO DAILY 10/25/18 Insulin Aspart [Novolog Flexpen] 11 units SQ DAILY 10/25/18 Levothyroxine Sodium 150 mcg PO DAILY 10/25/18 Lisinopril [Zestril] 2.5 mg PO DAILY 10/25/18 Niacin [Slo-Niacin] 500 mg PO BID 10/25/18 Polyethylene Glycol 3350 [Purelax] 17 g PO DAILY 10/25/18 Prochlorperazine Maleate [Compazine] 10 mg PO Q6H PRN PRN #12 tab 10/27/18 Following Prescrptions Were Given to Patient: Prochlorperazine Maleate [Compazine] 10 mg PO Q6H PRN PRN #12 tab PRN Reason: Nausea/Vomiting Primary Care Physician: Jesus Davila MD [Primary Care Provider] - Please follow up with your Primary Care Physician in: as needed Patient Instructions: Low-Residue Diet Disposition: Home Minutes spent on discharge:: 30 Patient Condition:: Good Medical Necessity - Tobacco Use Smoking Status: Former smoker Tobacco Use: Non-smoker Meaningful Use Info Meaningful Use Diagnoses (Choose all that apply): None applicable Code Visit Inpatient E&M: 42431 [facility]
[2018-10-27 14:45] VITALS: BP 109/64; PULSE 61; RESP 20; TEMP 36.5; O2SAT 97
--- NOTE | 2018-10-28 15:14 | CASEMGMT ---
CHRISTOPHER DC Phone call DC Date: 10/27/18 DC Disposition: Home LACE/STRATA: 06/12 Call Details: Intro role of CM to patient via phone. 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 No questions note. Pt was very effusive with compliments for her care @ [facility]. CHRISTOPHER DRISCOLL let her know we appreciated her comments and for choosing [facility]. Jb HODGEN RN ACM
== END 2018-10-27 15:00 | disposition home or self-care (01) | DRG 389 ==
LOC: ED 19:10 → MS3 21:56
PROVIDERS: Admitting Provider Family Medicine; Emergency Provider Emergency Medicine; Family Provider Internal Medicine; PCP Internal Medicine; Referring Provider Family Medicine; Visit Provider Internal Medicine
DX: K56.600 Partial intestinal obstruction, unspecified as to cause (principal); Z68.42 Body mass index [BMI] 45.0-49.9, adult; E66.01 Morbid (severe) obesity due to excess calories; E87.5 Hyperkalemia; E78.5 Hyperlipidemia, unspecified; I12.9 Hypertensive chronic kidney disease with stage 1 through stage 4 chronic kidney disease, or unspecified chronic kidney disease; E11.22 Type 2 diabetes mellitus with diabetic chronic kidney disease; N18.3 Chronic kidney disease, stage 3 (moderate); E89.0 Postprocedural hypothyroidism; K21.9 Gastro-esophageal reflux disease without esophagitis; D17.71 Benign lipomatous neoplasm of kidney; Z79.4 Long term (current) use of insulin; Z87.891 Personal history of nicotine dependence; Z85.850 Personal history of malignant neoplasm of thyroid
CPT/HCPCS: 36415; 74018; 74176; 80048; 80053; 82962; 83690; 83735; 85025; 97802; 99284; J7030; A4216; J2405

== ENCOUNTER → 2018-12-13 11:06 | Outpatient (CLI) | payer MEDICARE, SELFPAY ==
[2018-12-03 07:19] VITALS: BMI 47.2
[2018-12-13 11:52] LABS: Hemoglobin 11.3 g/dl (12.0-15.0); Mean Corp Hgb Conc 32.3 g/gl (32-36); Mean Corpuscular Hgb 28.8 pg (27.0-32.0); Mean Corpuscular Volume 89.3 fL (81-99); Platelet Count 160 K/mm3 (150-450); RBC Distribution Width SD 48.3 fl (35.1-43.9); Red Blood Count 3.92 M/mm3 (4.2-5.4); White Blood Count 9.2 K/mm3 (4.4-11.0)
[2018-12-13 11:55] LABS: Scan Indicated on CBC? Y/N NO
[2018-12-13 12:03] LABS: Protein, Urine (Random) < 6.0 mg/dL (<11.9)
[2018-12-13 12:25] LABS: Albumin, Serum 3.5 g/dL (3.2-5.0); BUN 36 mg/dL (7-18); BUN/Creat Ratio 30.5 RATIO (10-20); Calcium,Total 8.7 mg/dL (8.5-10.1); Chloride 108 mmol/L (98-107); Creatinine, Serum 1.18 mg/dL (0.55-1.02); EST Glomerular Filtration Rate 48 mL/min (>60); Est Glom Filt Rate - Afr Amer 58 mL/min (>60); Ferritin 39 ng/mL (8-252); Glucose 214 mg/dL (74-106); Iron 49 ug/dL (50-170); Iron Binding Capacity,Total 347 ug/dL (250-450); Phosphorus 3.2 mg/dL (2.5-4.9); Potassium 4.4 mmol/L (3.5-5.1); Sodium Level 139 mmol/L (136-145)
== END ==
PROVIDERS: Family Provider Internal Medicine; PCP Internal Medicine; Referring Provider Internal Medicine Nephrology; Visit Provider Internal Medicine Nephrology
DX: E11.22 Type 2 diabetes mellitus with diabetic chronic kidney disease (principal); N18.3 Chronic kidney disease, stage 3 (moderate); D50.9 Iron deficiency anemia, unspecified
CPT/HCPCS: 36415; 80069; 82570; 82728; 83540; 83550; 84156; 85027

== ENCOUNTER → 2018-12-17 | Outpatient (CLI) | payer MEDICARE, SELFPAY ==
[2018-12-03 07:19] VITALS: BMI 47.2
--- NOTE | 2018-12-17 13:28 | PFT ---
INTRODUCTION: The patient is a 73-year-old female that presents for pulmonary function studies secondary to a diagnosis of dyspnea. Respiratory therapy reports good patient effort. Bronchodilators were used during testing. INTERPRETATION: Forced expiration spirometry demonstrates no evidence of a large airways obstructive ventilatory defect. There was no significant response to aerosolized bronchodilators. Spirograms are of good quality and plateau normally. Body plethysmography was performed and reveals lung volumes to be within normal limits. Diffusing capacity by single breath CO is moderately reduced at 60% of predicted. IMPRESSION: Isolated moderate reduction in diffusing capacity which could be related to an underlying pulmonary vascular disorder, such as pulmonary hypertension. There are no previous pulmonary function studies available for comparison.
== END | disposition home or self-care (01) ==
LOC: PSN 09:50
PROVIDERS: Family Provider Internal Medicine; PCP Internal Medicine; Referring Provider Internal Medicine Critical Care Medicine; Visit Provider Internal Medicine Critical Care Medicine
DX: G47.33 Obstructive sleep apnea (adult) (pediatric) (principal); R06.09 Other forms of dyspnea
CPT/HCPCS: 94060; 94726; 94729

== ENCOUNTER → 2018-12-19 10:51 | Outpatient (CLI) | payer MEDICARE, SELFPAY ==
[2018-12-03 07:19] VITALS: BMI 47.2
[2018-12-19 11:42] VITALS: PULSE 100; PULSE 112; PULSE 118; PULSE 120; PULSE 122; PULSE 82; PULSE 84; PULSE 96; O2SAT 90; O2SAT 91; O2SAT 94; O2SAT 95
--- NOTE | 2018-12-20 11:23 | WT_ITS ---
PSN 6 Minute Walk Test - 6 Minute Walk Test 6 Minute Walk Test: 6 Minute Walk Test PSN:6-Minute Walk Test Start: 12/19/18 11:41 Freq: Status: Active Protocol: [id number] Document 12/19/18 11:42 [facility] (Rec: 12/19/18 11:45 [facility] [id number]) 6 Minute Walk Test Date Performed 12/19/18 Time Performed 11:00 Height 5 ft 0.5 in Weight: 244 lb Weight in Pounds 244.[address]: Neymar Valles Assistive device used: None Pre-test Oxygen Delivery Method Room Air Pulse Ox (%) 95 Pulse Rate (60-100 beats/min) 82 Dyspnea Jyoti Scale (0-10) 1 1st minute Oxygen Delivery Method Room Air Pulse Ox (%) 94 Pulse Rate (60-100 beats/min) 96 Dyspnea Jyoti Scale (0-10) 1 2nd minute Oxygen Delivery Method Room Air Pulse Ox (%) 91 Pulse Rate (60-100 beats/min) 100 Dyspnea Jyoti Scale (0-10) 2 Reported Symptoms Increased Work of Breathing 3rd minute Oxygen Delivery Method Room Air Pulse Ox (%) 90 Pulse Rate (60-100 beats/min) 112 H Dyspnea Jyoti Scale (0-10) 3 Reported Symptoms Increased Work of Breathing 4th minute Oxygen Delivery Method Room Air Pulse Ox (%) 90 Pulse Rate (60-100 beats/min) 118 H Dyspnea Jyoti Scale (0-10) 3 Reported Symptoms Increased Work of Breathing 5th minute Oxygen Delivery Method Room Air Pulse Ox (%) 91 Pulse Rate (60-100 beats/min) 122 H Dyspnea Jyoti Scale (0-10) 3 Reported Symptoms Increased Work of Breathing 6th minute Oxygen Delivery Method Room Air Pulse Ox (%) 90 Pulse Rate (60-100 beats/min) 120 H Dyspnea Jyoti Scale (0-10) 4 Reported Symptoms Increased Work of Breathing Post-test Oxygen Delivery Method Room Air Pulse Ox (%) 95 Pulse Rate (60-100 beats/min) 84 Dyspnea Jyoti Scale (0-10) 1 Full Laps Walked 14 Partial Lap, Number of Tiles Walked 100 Total Distance Walked (ft) 926 - Interpretation Interpretation: The patient ambulated 926 feet over the course of 6 minutes beginning on room air without assistive devices or breaks. Pretesting oxygen saturation was noted to be 95% on room air. With ambulation, the andrea oxygen saturation was 90%. The patient did become tachycardic with exertion. This testing is consistent with significant exertional oxygen desaturation, consistent with a pulmonary limitation to exercise tolerance. - Recommendations Recommendations: There is no indication for the use of supplemental oxygen at this time. However, close interval follow-up is recommended, given the degree of oxygen desaturation noted during this study.
== END ==
PROVIDERS: Family Provider Internal Medicine; PCP Internal Medicine; Referring Provider Internal Medicine Critical Care Medicine; Visit Provider Internal Medicine Critical Care Medicine
DX: R06.09 Other forms of dyspnea (principal)
CPT/HCPCS: 94618

== ENCOUNTER → 2019-04-03 | Outpatient (CLI) | payer MEDICARE, SELFPAY ==
[2018-12-03 07:19] VITALS: BMI 47.2
[2019-04-03 11:57] LABS: Hematocrit 36.9 % (37-47); Hemoglobin 11.7 g/dL (12.0-15.0); Mean Corp Hgb Conc 31.7 g/dL (32-36); Mean Corpuscular Volume 91.6 fL (81-99); Mean Platelet Vol. 10.1 fl (6.2-12.0); Platelet Count 170 K/mm3 (150-450); RBC Distribution Width CV 13.9 % (11.6-14.6); RBC Distribution Width SD 46.8 fl (35.1-43.9); Red Blood Count 4.03 M/mm3 (4.2-5.4); White Blood Count 5.7 K/mm3 (4.4-11.0)
[2019-04-03 12:42] LABS: Albumin, Serum 3.8 g/dL (3.2-5.0); BUN 60 mg/dL (7-18); BUN/Creat Ratio 44.1 RATIO (10-20); Calcium,Total 9.5 mg/dL (8.5-10.1); Chloride 109 mmol/L (98-107); Creatinine, Serum 1.36 mg/dL (0.55-1.02); EST Glomerular Filtration Rate 41 mL/min (>60); Est Glom Filt Rate - Afr Amer 49 mL/min (>60); Glucose 216 mg/dL (74-106); Iron 39 ug/dL (50-170); Iron Binding Capacity,Total 372 ug/dL (250-450); PERCENT IRON SATURATION 10.5 % (15.0-55.0); Phosphorus 3.6 mg/dL (2.5-4.9); Potassium 3.9 mmol/L (3.5-5.1); Sodium Level 140 mmol/L (136-145)
[2019-04-03 12:44] LABS: Protein, Urine (Random) 12.4 mg/dL (<11.9); Protein:Creat Ratio 169 mg/g CRE (0-200)
[2019-04-04 09:38] LABS: Ferritin 91 ng/mL (8-252)
== END | disposition home or self-care (01) ==
LOC: LAB 11:29
PROVIDERS: Family Provider Internal Medicine; PCP Internal Medicine; Referring Provider Internal Medicine Nephrology; Visit Provider Internal Medicine Nephrology
DX: E11.22 Type 2 diabetes mellitus with diabetic chronic kidney disease (principal); N18.3 Chronic kidney disease, stage 3 (moderate); D50.9 Iron deficiency anemia, unspecified
CPT/HCPCS: 36415; 80069; 82570; 82728; 83540; 83550; 84156; 85027

== ENCOUNTER → 2019-05-06 | Outpatient (CLI) | payer MEDICARE, SELFPAY ==
[2018-12-03 07:19] VITALS: BMI 47.2
[2019-04-09 13:16] VITALS: BMI 41.6
[2019-05-06 12:20] LABS: Albumin, Serum 3.6 g/dL (3.2-5.0); BUN 47 mg/dL (7-18); BUN/Creat Ratio 39.2 RATIO (10-20); Calcium,Total 9.1 mg/dL (8.5-10.1); Chloride 107 mmol/L (98-107); EST Glomerular Filtration Rate 47 mL/min (>60); Est Glom Filt Rate - Afr Amer 57 mL/min (>60); Glucose 149 mg/dL (74-106); Phosphorus 3.1 mg/dL (2.5-4.9); Potassium 4.2 mmol/L (3.5-5.1); Sodium Level 141 mmol/L (136-145)
== END | disposition home or self-care (01) ==
PROVIDERS: Family Provider Internal Medicine; PCP Internal Medicine; Referring Provider Internal Medicine Nephrology; Visit Provider Internal Medicine Nephrology
DX: N17.9 Acute kidney failure, unspecified (principal)
CPT/HCPCS: 36415; 80069

== ENCOUNTER 2019-06-06 20:40 | Emergency (ER) | payer MEDICARE, SELFPAY ==
[2019-04-09 13:16] VITALS: BMI 41.6
[2019-06-06 20:42] VITALS: BP 166/100; PULSE 78; RESP 19; TEMP 36.8; O2SAT 98; BMI 40.0
--- NOTE | 2019-06-06 20:59 | CT_ITS ---
STUDY: CT ABDOMEN AND PELVIS WITH CONTRAST REASON FOR EXAM: Female, 74 years old. Distention, pain RADIATION DOSAGE (If Supplied By Facility): CTDIvol = ( 17 ) mGy, DLP = ( 1099.66 ) mGycm TECHNIQUE: Transaxial images were obtained from the dome of the diaphragm to the symphysis pubis without oral contrast. IV/Oral Isovue 300 100 was administered. Sagittal and coronal images were reconstructed. Individualized dose optimization techniques were used for this CT. COMPARISON: Every 2018 FINDINGS: The visualized lung bases are unremarkable. The visualized portions of the heart are within normal limits. 1.7 cm cyst in the liver. Status post cholecystectomy. There is dilatation of the biliary system. Normal spleen. Normal pancreas. Normal bilateral adrenal glands. Lower pole 1.6 cm fatty nodule in the right kidney likely an angiomyolipoma. 5 mm right renal cyst. 12 mm cyst in the left kidney. Prior surgery of the stomach. Mild air-fluid levels in the small intestine suggesting an ileus. Normal colon. The appendix is not visualized. Calcified abdominal aorta. Normal inferior vena cava. Normal retroperitoneum. Normal urinary bladder. Prior surgery of the anterior abdominal wall. Mild degenerative vertebral changes. Grade 1 spondylolisthesis at L5-S1. CT/Abdomen/Pelvis WITH Contrast IMPRESSION: Probable small bowel ileus with air-fluid levels. Follow-up is needed. Bilateral renal cysts. Right renal angiomyolipoma. Small hepatic cyst. Biliary dilatation. Status post cholecystectomy. Electronically Signed: Edward Pearson DO at 0:16 EDT Tel [phone], Service support ,
--- NOTE | 2019-06-06 21:01 | ED.DCSUM_ITS ---
History of Present Illness Chief Complaint: Abd Pain Detail of Chief Complaint: With nausea and vomiting x1, distention and significant anterior pain Informant: Patient, Significant Other Onset: Today - 2.5 hours prior to presentation Context: Sudden Onset Timing: Continuous, Waxes and wanes Quality: Pain Location: Anterior mid abdomen Current Severity: Moderate Maximum Severity: Severe Worsened by: Movement Relieved by: Nothing Associated Symptoms: Nausea and vomiting Narrative: Patient is an elderly woman status post gastric bypass surgery by Dr. Reeves at the [facility]. Patient states she is lost 40 pounds. She presents because of abrupt onset of abdominal pain with distention and nausea and vomiting. She has had 3 prior bowel obstructions. She states it took Dr. Adhikari 1 hour to lyse adhesions before he was able to do her gastric bypass surgery. She denies fever, chills night sweats. She denies ocular, visual auditory sense. She denies cardiac respiratory symptoms. She denies urinary symptoms. She did have 4 bowel movements today. She states the bowel moods were formed. She normally has 4/day. Prior similar symptoms: Yes - Prior bowel obstruction Recent Illness/Hospitalization: No - Past Medical History (1) Renal insufficiency Status: Acute (2) SBO (small bowel obstruction) Status: Acute (3) Benign hypertension Status: Chronic (4) CKD (chronic kidney disease) stage 3, GFR 30-59 ml/min Status: Chronic (5) History of thyroid cancer Status: Chronic (6) Hyperlipidemia Status: Chronic (7) Morbid obesity Status: Chronic (8) ABDI (obstructive sleep apnea) Status: Chronic (9) Type 2 diabetes mellitus Status: Chronic (10) Pulmonary hypertension Status: Suspected Past Medical History - Allergies and Home Meds Allergies/Adverse Reactions: Allergies adhesive Allergy (Verified 06/06/19 20:44) Hives cephalexin monohydrate [From Keflex] Allergy (Verified 06/06/19 20:44) Hives ciprofloxacin [From Cipro] Allergy (Verified 06/06/19 20:44) Swelling ketorolac tromethamine [From Toradol] Allergy (Verified 06/06/19 20:44) Hives nickel [Nickel] Allergy (Verified 06/06/19 20:44) Other Omwvegq-Gbs-Lyx Reductase Inhibitor Adverse Reaction (Verified 06/06/19 20:44) Other paladium Allergy (Uncoded 09/27/19 20:44) Other Primary Care Physician: Jesus Davila MD [Primary Care Provider] - Prior records reviewed: Yes Surgical History: - - Bilateral total knee replacement, hysterectomy, hernia repair with follow-up intervention secondary to SBO, cholecystectomy, appendectomy. Lives: Spouse/ Significant Other Smoking Status: Never smoker Alcohol: None Drugs: None - Family History Maternal Family History: Family History (Last Reviewed 04/09/19 @ 13:19 by Beata Kay) Father Myocardial infarction Mother COPD (chronic obstructive pulmonary disease) Brother AAA (abdominal aortic aneurysm) Lung cancer Pancreatitis Sister Hypertension Diabetes CAD (coronary artery disease) partial detached retina Family History: Reports: - - Patient notes a maternal family history of COPD with history of tobacco use, past age 64. Paternal Family History: Family History (Last Reviewed 04/09/19 @ 13:19 by Beata Kay) Father Myocardial infarction Mother COPD (chronic obstructive pulmonary disease) Brother AAA (abdominal aortic aneurysm) Lung cancer Pancreatitis Sister Hypertension Diabetes CAD (coronary artery disease) partial detached retina Family History: Reports: - - Patient notes a paternal family history of massive TN, coronary disease, past age 61. Sibling Family History: Family History (Last Reviewed 04/09/19 @ 13:19 by Beata Kay) Father Myocardial infarction Mother COPD (chronic obstructive pulmonary disease) Brother AAA (abdominal aortic aneurysm) Lung cancer Pancreatitis Sister Hypertension Diabetes CAD (coronary artery disease) partial detached retina Family History: Reports: - - Patient notes a brother with history of ruptured aortic aneurysm, past age 49 in addition to a sister with history of heart disease and diabetes. Review of Systems General: Denies: Chills, Fever, Malaise, Sweats Eyes: Denies: Visual changes - bilaterally, Blurred Vision - bilaterally ENT: Denies: Rhinorrhea, Sore throat Cardiovascular: Denies: Chest pain, Palpitations Respiratory: Denies: Dyspnea, Cough, Dyspnea on exertion Gastrointestinal: Reports: Abdominal pain, Nausea, Vomiting. Denies: Diarrhea, Constipation, Melena, Hematochezia Genitourinary: Denies: Dysuria, Hematuria, Frequency Musculoskeletal: Denies: Myalgias, Arthralgias, Neck pain, Back pain, Swelling, Extremity Pain, -, - Skin: Denies: Rash, Wounds Neurological: Denies: Headache, Weakness, Numbness Hematologic: Denies: Easy bruising, Easy bleeding Physical Exam Vital Signs/Narrative: Vital Signs Temp Pulse Resp BP Pulse Ox 06/06/19 20:42 98.2 F 78 19 H 166/100 H 98 Inital Vital Signs reviewed: Yes General: Well nourished, Well developed, Obese, Acute Distress Head: Normocephalic, Atraumatic Eyes: Perrl, EOMI ENT: Moist mucous membranes, No rhinorrhea Neck: Supple, Nontender, No lymphadenopathy, No JVD Cardiovascular: Regular rate, Regular rhythm, No murmurs, Normal S1, Normal S2 Respiratory: No distress, CTA bilaterally, Chest nontender Abdomen: Soft, No masses, Tender, Guarding, Rebound tenderness, Hyperactive bowel sounds, Ventral hernia, Hernia reducible. Negative for: Nontender, Nondistended, Normal bowel sounds Rectal: Deferred Back: Nontender, Normal Inspection Extremities: Nontender, No edema Skin: Normal color, No rash Neurological: Alert, Oriented x3, Cranial nerves II-XII grossly intact, Normal Strength, Normal Sensation Psychological: Normal affect, Normal Mood Diagnostic/Tx/Re-eval Impressions Abdomen/Pelvis CT 06/06/19 20:59 IMPRESSION: Probable small bowel ileus with air-fluid levels. Follow-up is needed. Bilateral renal cysts. Right renal angiomyolipoma. Small hepatic cyst. Biliary dilatation. Status post cholecystectomy. Electronically Signed: Edward Pearson DO at 0:16 EDT Tel [phone], Service support , 06/06/19 20:59 Abdomen/Pelvis WITH Contrast [CT] Stat 06/07/19 00:08 Abdomen Single View (Portable) [RAD] Stat 06/07/19 00:18 Abdomen Single View (Portable) [RAD] Stat Laboratory Results 06/06/19 06/06/19 21:17 21:17 WBC 7.6 RBC 4.65 Hgb 13.2 Hct 41.1 MCV 88.4 MCH 28.4 MCHC 32.1 RDW Std Deviation 43.2 RDW Coeff of Karina 13.2 Plt Count 196 MPV 10.4 Immature Gran % (Auto) 0.300 Neut % (Auto) 71.1 H Lymph % (Auto) 20.6 [place] % (Auto) 6.9 Eos % (Auto) 0.8 Baso % (Auto) 0.3 Absolute Neuts (auto) 5.4 Absolute Lymphs (auto) 1.56 Nucleated RBC % 0 Sodium 140 Potassium 4.4 Chloride 106 Carbon Dioxide 28.0 Anion Gap 6 BUN 38 H Creatinine 1.13 H Estim Creat Clear Calc 32.32 Est GFR (MDRD) Af Amer 61 Est GFR (MDRD) Non-Af 50 L BUN/Creatinine Ratio 33.6 H Glucose [address] of the abdomen with IV and p.o. contrast interpreted by radiologist as probable small bowel ileus with multiple air-fluid levels. In light of patient's history of multiple bowel obstructions numerous episodes of emesis in the department and acuity of onset suspect that she has an early partial small bowel obstruction. An NG has been ordered. Will contact [facility] for transfer. - Rhythm Strip Rhythm Strip: Sinus Rhythm Rate: 85 Ectopy: None - Medical Decision Making History of 3 prior bowel obstructions abrupt onset of pain with distention and nausea and vomiting need to entertain possibility of high-grade obstruction. There is a palpable mass and I believe she has a reducible ventral/umbilical hernia. There are other defects appreciated. There is also other palpable bumps which may represent scar tissue versus incarcerated hernia. Will establish IV and administer normal saline at 250/h. He received 4 mg of Zofran for her nausea and 8 mg of morphine for pain. Appropriate blood work was ordered as well as CT of the abdomen with p.o. and IV contrast. Differential diagnosis include ischemic bowel, incarcerated hernia, high-grade bowel obstruction Patient is required multiple doses of morphine. Last dose of analgesia was 1 mg of Dilaudid. She is received additional dose of Zofran. Since she continues to vomit she was given 5 of Reglan. ED Disposition - Plan for ED Patient: Disposition: [facility] - Main Diagnosis: Abdominal pain, Nausea and vomiting, Partial small bowel obstruction Referrals: Jesus Davila MD [Primary Care Provider] -
[2019-06-06] MEDS: morphine 8 MG/ML Syringe IV (21:17)
[2019-06-06] MEDS: Ondansetron 4 MG/2 ML Vial IV ×2 (21:17→23:10)
[2019-06-06] MEDS: 0.9% Normal Saline 1,000 ML 250 ML IV (21:23)
[2019-06-06 21:25] LABS: Absolute Lymphocyte Count 1.56 X10^3/uL (0.83-4.51); Absolute Neutrophil Count 5.4 X10^3/uL (2.0-7.7); Basophil# 0.02 X10^3/uL; Basophil% 0.3 % (0-1); Eosinophil# 0.06 X10^3/uL; Eosinophils% 0.8 % (0-5); Hematocrit 41.1 % (37-47); Hemoglobin 13.2 g/dL (12.0-15.0); Lymphocyte # 1.56 X10^3/ul (4.0); Lymphocyte % 20.6 % (19-41); Mean Corp Hgb Conc 32.1 g/dL (32-36); Mean Corpuscular Hgb 28.4 pg (27.0-32.0); Mean Corpuscular Volume 88.4 fL (81-99); Mean Platelet Vol. 10.4 fl (6.2-12.0); Monocyte# 0.52 X10^3/uL; Monocyte% 6.9 % (0-10); NRBC Flagged by Analyzer 0 % (0-5); Neutrophil # 5.39 X10^3/uL (2.7-7.7); Neutrophil % 71.1 % (47-70); Platelet Count 196 K/mm3 (150-450); RBC Distribution Width CV 13.2 % (11.6-14.6); RBC Distribution Width SD 43.2 fl (35.1-43.9); Red Blood Count 4.65 M/mm3 (4.2-5.4); White Blood Count 7.6 K/mm3 (4.4-11.0)
[2019-06-06 21:38] LABS: Anion Gap 6 (5-15); BUN 38 mg/dL (7-18); BUN/Creat Ratio 33.6 RATIO (10-20); Calcium,Total 9.6 mg/dL (8.5-10.1); Chloride 106 mmol/L (98-107); Creatinine, Serum 1.13 mg/dL (0.55-1.02); EST Glomerular Filtration Rate 50 mL/min (>60); Est Glom Filt Rate - Afr Amer 61 mL/min (>60); Estimated Creatinine Clearance 32.32 ml/min; Glucose 131 mg/dL (74-106); Potassium 4.4 mmol/L (3.5-5.1); Sodium Level 140 mmol/L (136-145)
[2019-06-06] MEDS: Lidocaine 5% Patch 1 PATCH TOPICAL (21:45)
[2019-06-06] MEDS: morphine 8 MG/ML Syringe 6 MG IV ×2 (22:10→23:03)
--- NOTE | 2019-06-06 22:11 | NURSING ---
emesis x1, medium amt, undigested food.
[2019-06-07] MEDS: Metoclopramide 10 MG/2 ML Vial 5 MG IV (00:06)
[2019-06-07] MEDS: HYDROmorphone 1 MG/ML Syringe IV (00:07)
--- NOTE | 2019-06-07 00:08 | RAD_ITS ---
HISTORY: NG PLACEMENT ADDITIONAL HISTORY: None. COMPARISON: 10/26/2018 Technique: Supine abdominal radiographs Number of images including paperwork: 2 FINDINGS: Images include the lower chest and upper abdomen. FREE AIR: None detected. BOWEL GAS PATTERN: Dilated loops of small bowel are noted in the upper abdomen. CALCIFICATIONS: No definite urinary tract calculi. ORGANS: No evidence of organomegaly. SOFT TISSUES: Unremarkable. BONES: No acute skeletal findings. Degenerative changes. Nasogastric tube tip in the stomach with side-port just below the GE junction. RAD/Abdomen Single View (Portable) IMPRESSION: Nasogastric tube tip in the stomach. at 0155 Reported and signed by: Kim Norton MD Electronically Signed: Kim Norton MD at 1:55 EDT Tel , Service support ,
[2019-06-07 00:47] VITALS: BP 110/54; PULSE 76; RESP 16; TEMP 36.7; O2SAT 94
[2019-06-07] MEDS: Lidocaine 4% 5 ML Ampul 2 ML INHALATION (00:50)
[2019-06-07] MEDS: Lidocaine 2% Jelly 1 APPLIC Tube TOPICAL (01:10)
[2019-06-07] MEDS: Oxymetazoline 0.05% 1 SPRAY SPRAY.BTL 2 SPRAY NASAL (01:11)
== END 2019-06-07 02:15 | disposition short-term general hospital (02) ==
PROVIDERS: Emergency Provider Emergency Medicine; Family Provider Internal Medicine; PCP Internal Medicine
DX: K56.600 Partial intestinal obstruction, unspecified as to cause (principal); R10.9 Unspecified abdominal pain; R11.2 Nausea with vomiting, unspecified; N28.1 Cyst of kidney, acquired; D17.71 Benign lipomatous neoplasm of kidney; K76.89 Other specified diseases of liver; E11.22 Type 2 diabetes mellitus with diabetic chronic kidney disease; I12.9 Hypertensive chronic kidney disease with stage 1 through stage 4 chronic kidney disease, or unspecified chronic kidney disease; N18.3 Chronic kidney disease, stage 3 (moderate); E66.01 Morbid (severe) obesity due to excess calories; G47.33 Obstructive sleep apnea (adult) (pediatric); Z87.448 Personal history of other diseases of urinary system; Z87.19 Personal history of other diseases of the digestive system; Z85.850 Personal history of malignant neoplasm of thyroid; Z98.84 Bariatric surgery status; Z90.49 Acquired absence of other specified parts of digestive tract; Z79.82 Long term (current) use of aspirin; Z79.4 Long term (current) use of insulin; Z79.899 Other long term (current) drug therapy
CPT/HCPCS: 74018; 74177; 80048; 85025; 94640; 96361; 96374; 96375; 96376; 99285; J7030; Q9967; A4216; J2405

== ENCOUNTER 2019-07-04 18:14 | Emergency (ER) | payer MEDICARE, SELFPAY ==
[2019-07-04 18:16] VITALS: BP 149/72; PULSE 85; RESP 18; TEMP 36.9; O2SAT 95; BMI 39.5
[2019-07-04 19:34] LABS: Absolute Lymphocyte Count 2.03 X10^3/uL (0.83-4.51); Absolute Neutrophil Count 7.3 X10^3/uL (2.0-7.7); Basophil# 0.02 X10^3/uL; Basophil% 0.2 % (0-1); Eosinophil# 0.03 X10^3/uL; Eosinophils% 0.3 % (0-5); Hemoglobin 11.7 g/dL (12.0-15.0); Lymphocyte # 2.03 X10^3/ul (4.0); Lymphocyte % 20.3 % (19-41); Mean Corp Hgb Conc 32.5 g/dL (32-36); Mean Corpuscular Hgb 28.9 pg (27.0-32.0); Mean Corpuscular Volume 88.9 fL (81-99); Mean Platelet Vol. 10.1 fl (6.2-12.0); Monocyte# 0.58 X10^3/uL; Monocyte% 5.8 % (0-10); NRBC Flagged by Analyzer 0 % (0-5); Neutrophil # 7.28 X10^3/uL (2.7-7.7); Neutrophil % 72.8 % (47-70); Platelet Count 190 K/mm3 (150-450); RBC Distribution Width CV 14.9 % (11.6-14.6); RBC Distribution Width SD 48.1 fl (35.1-43.9); Red Blood Count 4.05 M/mm3 (4.2-5.4)
[2019-07-04 19:48] LABS: Anion Gap 4 (5-15); BUN 33 mg/dL (7-18); BUN/Creat Ratio 33.2 RATIO (10-20); Calcium,Total 9.7 mg/dL (8.5-10.1); Chloride 106 mmol/L (98-107); Creatinine, Serum 0.99 mg/dL (0.55-1.02); EST Glomerular Filtration Rate 58 mL/min (>60); Est Glom Filt Rate - Afr Amer 71 mL/min (>60); Glucose 139 mg/dL (74-106); Potassium 4.1 mmol/L (3.5-5.1); Sodium Level 138 mmol/L (136-145)
--- NOTE | 2019-07-04 21:00 | RAD_ITS ---
STUDY: X-RAY - ACUTE ABDOMINAL SERIES REASON FOR EXAM: Female, 74 years old. Recent admission for small bowel obstruction. Pain. TECHNIQUE: Single view of the chest. Supine, 3 view(s) of the abdomen were obtained. COMPARISON: June 07, 2019 FINDINGS: The lungs are clear and expanded. Normal size heart. Normal mediastinum and kristen. Normal visualized pulmonary arteries. Normal visualized aortic arch and descending thoracic aorta. There is a nonspecific bowel gas pattern. There are surgical clips within the right upper quadrant consistent with prior cholecystectomy. There are rounded metallic densities projecting over the abdomen consistent with prior abdominal wall repair. There are degenerative changes of the lumbar spine and hips. RAD/Acute Abdomen Inc Chest IMPRESSION: Nonspecific bowel gas pattern. Electronically Signed: Laxmi Mello MD at 21:46 EDT Tel , Service support ,
[2019-07-04 21:36] LABS: Color, Urine Yellow (Yellow); Glucose, Dipstick Normal (Normal); Ketone-Dipstick Negative (Negative); Leukocyte Esterase-Dipstick 500 /ul (Negative); Mucous, Urine 0 SEEN /hpf (<or=2+); Nitrite-Dipstick Negative (Negative); Occult Blood-Urine 25 /ul (Negative); Protein-Dipstick 15 mg/dl (Negative); Red Blood Cells-Urine 0 SEEN /hpf (0-5); Urine Bilirubin Dipstick Negative (Negative); Urine Clarity Cloudy (Clear); Urine Urobilinogen Normal (Normal)
[2019-07-04 21:45] LABS: Bacteria RARE /hpf (None Seen); Squamous Epithelial Cells - UA 0-5 SEEN /hpf (5-10); White Blood Cells 0-5 SEEN /hpf (0-5)
--- NOTE | 2019-07-04 22:04 | ED.VIS.GEN ---
History of Present Illness Chief Complaint: Abd Pain Informant: Patient, Family Onset: Today Context: Gradual Onset Current Severity: Mild Maximum Severity: Mild Narrative: Patient has a history of multiple small bowel obstructions. She was seen here June 06 and sent to [facility] for a small bowel obstruction. She did not have to have surgery, but patient was told she was very high risk if she has any concerning symptoms for bowel obstruction she should go to the emergency room. Patient states today she has noted decreased flatulence. She did have a very small bowel movement just prior to arrival. She has noted increased abdominal pain and feels more distended. No fever has been noted. She has no urinary symptoms. Past Medical History - Allergies and Home Meds Allergies/Adverse Reactions: Allergies adhesive Allergy (Verified 07/04/19 18:15) Hives cephalexin monohydrate [From Keflex] Allergy (Verified 07/04/19 18:15) Hives ciprofloxacin [From Cipro] Allergy (Verified 07/04/19 18:15) Swelling ketorolac tromethamine [From Toradol] Allergy (Verified 07/04/19 18:15) Hives nickel [Nickel] Allergy (Verified 07/04/19 18:15) Other Dozoxyb-Nmp-Gon Reductase Inhibitor Adverse Reaction (Verified 07/04/19 18:15) Other paladium Allergy (Uncoded 07/04/19 18:15) Other Primary Care Physician: Jesus Davila MD [Primary Care Provider] - As Needed Prior records reviewed: Yes Past Medical History: - - Reviewed Surgical History: - - Bilateral total knee replacement, hysterectomy, hernia repair with follow-up intervention secondary to SBO, cholecystectomy, appendectomy. Lives: Spouse/ Significant Other Smoking Status: Former smoker - Family History Maternal Family History: Family History (Last Reviewed 04/09/19 @ 13:19 by Beata Kay) Father Myocardial infarction Mother COPD (chronic obstructive pulmonary disease) Brother AAA (abdominal aortic aneurysm) Lung cancer Pancreatitis Sister Hypertension Diabetes CAD (coronary artery disease) partial detached retina Family History: Reports: - - Patient notes a maternal family history of COPD with history of tobacco use, past age 64. Paternal Family History: Family History (Last Reviewed 04/09/19 @ 13:19 by Beata Kay) Father Myocardial infarction Mother COPD (chronic obstructive pulmonary disease) Brother AAA (abdominal aortic aneurysm) Lung cancer Pancreatitis Sister Hypertension Diabetes CAD (coronary artery disease) partial detached retina Family History: Reports: - - Patient notes a paternal family history of massive [place], coronary disease, past age 61. Sibling Family History: Family History (Last Reviewed 04/09/19 @ 13:19 by Beata Kay) Father Myocardial infarction Mother COPD (chronic obstructive pulmonary disease) Brother AAA (abdominal aortic aneurysm) Lung cancer Pancreatitis Sister Hypertension Diabetes CAD (coronary artery disease) partial detached retina Family History: Reports: - - Patient notes a brother with history of ruptured aortic aneurysm, past age 49 in addition to a sister with history of heart disease and diabetes. Review of Systems General: Denies: Chills, Fever Eyes: Denies: Visual changes - bilaterally ENT: Denies: Bilateral ear pain Cardiovascular: Denies: Chest pain Respiratory: Denies: Dyspnea, Cough Gastrointestinal: Reports: Abdominal pain. Denies: Vomiting Genitourinary: Denies: Dysuria Musculoskeletal: Denies: Neck pain, Back pain Skin: Denies: Rash Neurological: Denies: Headache Psych: Denies: Depression Physical Exam Vital Signs/Narrative: Vital Signs Temp Pulse Resp BP Pulse Ox 07/04/19 18:16 98.4 F 85 18 149/72 H 95 Inital Vital Signs reviewed: Yes General: Well nourished, Well developed Head: Normocephalic ENT: Moist mucous membranes Neck: Supple Cardiovascular: Regular rate, Regular rhythm Respiratory: No distress, CTA bilaterally Abdomen: Soft, Nontender, Normal bowel sounds Extremities: Nontender Skin: Normal color Neurological: Alert, Oriented x3 Psychological: Normal affect Diagnostic/Tx/Re-eval Impressions Acute Abdomen Series 07/04/19 21:00 IMPRESSION: Nonspecific bowel gas pattern. Electronically Signed: Laxmi Mello MD at 21:46 EDT Tel , Service support , 07/04/19 21:00 Acute Abdomen Inc Chest [RAD] Stat Laboratory Results 07/04/19 07/04/19 07/04/19 19:10 19:10 21:05 WBC 10.0 RBC 4.05 L Hgb 11.7 L Hct 36.0 L MCV 88.9 MCH 28.9 MCHC 32.5 RDW Std Deviation 48.1 H RDW Coeff of Karina 14.9 H Plt Count 190 MPV 10.1 Immature Gran % (Auto) 0.600 Neut % (Auto) 72.8 H Lymph % (Auto) 20.3 [place] % (Auto) 5.8 Eos % (Auto) 0.3 Baso % (Auto) 0.2 Absolute Neuts (auto) 7.3 Absolute Lymphs (auto) 2.03 Nucleated RBC % 0 Sodium 138 Potassium 4.1 Chloride 106 Carbon Dioxide 28.0 Anion Gap 4 L BUN 33 H Creatinine 0.99 Estim Creat Clear Calc 36.90 Est GFR (MDRD) Af Amer 71 Est GFR (MDRD) Non-Af 58 L BUN/Creatinine Ratio 33.2 H Glucose 139 H Calcium 9.7 Urine Color Yellow Urine Clarity Cloudy Urine pH 6.0 Ur Specific [place] 1.010 Urine Protein 15 H Urine Glucose (UA) Normal Urine Ketones Negative Urine Occult Blood 25 H Urine Nitrite Negative Urine Bilirubin Negative Urine Urobilinogen Normal Ur Leukocyte Esterase 500 H Urine RBC 0 SEEN Urine WBC 0-5 SEEN Ur Squamous Epith Cells 0-5 SEEN Urine Bacteria RARE Urine Mucus 0 SEEN - Medical Decision Making Blood work and x-ray results are discussed with the patient. She feels reassured with her findings. She will return if any symptoms worsen. ED Disposition - Plan for ED Patient: Disposition: Home or Assisted Living Diagnosis: Abdominal pain Instructions: ABDOMINAL PAIN, Unknown Cause, (Female) Referrals: Jesus Davila MD [Primary Care Provider] - As Needed
[2019-07-04 22:21] VITALS: BP 133/70; PULSE 68; RESP 18; O2SAT 97
== END 2019-07-04 22:23 | disposition home or self-care (01) ==
PROVIDERS: Emergency Provider Emergency Medicine; Family Provider Internal Medicine; PCP Internal Medicine
DX: R10.9 Unspecified abdominal pain (principal); Z79.82 Long term (current) use of aspirin; Z79.4 Long term (current) use of insulin; Z79.899 Other long term (current) drug therapy; Z87.891 Personal history of nicotine dependence; Z96.653 Presence of artificial knee joint, bilateral
CPT/HCPCS: 74022; 80048; 81001; 85025; 99283

== ENCOUNTER → 2019-09-01 14:12 | Outpatient (CLI) | payer MEDICARE, SELFPAY ==
[2019-07-23 12:28] VITALS: BMI 40.4
--- NOTE | 2019-09-01 14:17 | US_ITS ---
STUDY: ULTRASOUND BREAST - RIGHT REASON FOR EXAM: Female, 74 years old. Right breast bruising TECHNIQUE: Axial and longitudinal images of the RIGHT breast were performed with a high resolution ultrasound transducer. # OF IMAGES: 30 COMPARISON: None. FINDINGS: RIGHT Breast: Sonogram of the right upper outer quadrant in the region of the bruising demonstrates no evidence of cystic or solid lesion. No evidence of abnormal fluid collection is visualized. A focus of likely benign intramammary lymph node is visualized, also observed on the current and also prior mammograms measuring 1.6 x 0.9 x 1 cm with fatty hilum. No other focal abnormality is visualized. US/Breast Limited Unilateral IMPRESSION: Benign intramammary lymph node also observed on prior mammogram from 11/08/2018. No other focal abnormality in the right upper outer quadrant. ASSESSMENT CATEGORY: BIRADS Category 2: Benign. A letter regarding these results will be sent to the patient by the facility within 30 days. Electronically Signed: Silvino Fleming MD at 14:15 EST Tel [phone], Service support ,
--- NOTE | 2019-09-01 14:17 | BI_ITS ---
MAMMOGRAPHY - UNILATERAL DIAGNOSTIC: RIGHT BREAST REASON FOR EXAM: Female, 74 years old. RT LATERAL BRUISE X 1 WEEK -NO INJURY, NO LUMP FELT, MARKED WITH A MARKER -- P/H THYROID CANCER AGE 67 -- PT HAS A HX OF CYSTS BILAT BREASTS PERTINENT HISTORY: Non-contributory. TECHNIQUE: Digital examination. Mediolateral oblique (MLO) and craniocaudad (CC) views of the breast were obtained. CAD: CAD was performed on this study. COMPARISON: 11/08/2018, 10/25/2017 FINDINGS: Breast Composition: The breasts are almost entirely fatty. A likely benign intramammary lymph node is visualized along the upper outer quadrant, also visualized on prior study from November 2018 and October 30, 2017. Benign vascular calcifications. No focal abnormality on sonogram in the region with the contusion/bruise to the breast There are no dominant masses or suspicious calcifications. No other significant abnormalities are identified. BI/DIAG MAMM W/CAD, UNILAT IMPRESSION: Stable unilateral diagnostic mammogram. Benign intramammary lymph node ASSESSMENT CATEGORY: BIRADS Category 2: Benign. A letter regarding these results will be sent to the patient by the facility within 30 days. FOLLOW-UP RECOMMENDATION: Yearly follow-up mammogram recommended. (A) Approximately 10% of breast cancers are not detected by mammography. A normal mammogram should not delay biopsy of a clinically suspicious abnormality. Electronically Signed: Silvino Fleming MD at 14:31 EST Tel [phone], Service support ,
== END ==
PROVIDERS: Family Provider Internal Medicine; PCP Internal Medicine; Referring Provider Clinical Nurse Specialist; Visit Provider Clinical Nurse Specialist
DX: N64.4 Mastodynia (principal); N64.89 Other specified disorders of breast; N60.11 Diffuse cystic mastopathy of right breast
CPT/HCPCS: 76642; 77061; 77065; G0279

== ENCOUNTER → 2019-09-16 12:35 | Outpatient (CLI) | payer MEDICARE, SELFPAY ==
[2019-07-23 12:28] VITALS: BMI 40.4
[2019-09-16 13:38] LABS: Hematocrit 36.2 % (37-47); Hemoglobin 11.6 g/dL (12.0-15.0); Mean Corpuscular Hgb 28.6 pg (27.0-32.0); Mean Corpuscular Volume 89.4 fL (81-99); Mean Platelet Vol. 10.3 fl (6.2-12.0); Platelet Count 182 K/mm3 (150-450); RBC Distribution Width CV 13.7 % (11.6-14.6); RBC Distribution Width SD 45.1 fl (35.1-43.9); Red Blood Count 4.05 M/mm3 (4.2-5.4); White Blood Count 7.6 K/mm3 (4.4-11.0)
[2019-09-16 14:00] LABS: Microalbumin,Random Urine 6.7 mg/L (NO RANGE EST.); Microalbumin:Creatinine Ratio 16.7 mg/g CRE (<30 mg/g CRE)
[2019-09-16 14:07] LABS: Albumin, Serum 3.7 g/dL (3.2-5.0); BUN 49 mg/dL (7-18); BUN/Creat Ratio 39.5 RATIO (10-20); Calcium,Total 9.6 mg/dL (8.5-10.1); Chloride 106 mmol/L (98-107); Creatinine, Serum 1.24 mg/dL (0.55-1.02); EST Glomerular Filtration Rate 45 mL/min (>60); Est Glom Filt Rate - Afr Amer 55 mL/min (>60); Glucose 203 mg/dL (74-106); Potassium 4.3 mmol/L (3.5-5.1); Sodium Level 138 mmol/L (136-145)
== END ==
LOC: LAB.FUTURE 12:37 → LAB 13:17
PROVIDERS: Family Provider Internal Medicine; PCP Internal Medicine; Referring Provider Internal Medicine Nephrology; Visit Provider Internal Medicine Nephrology
DX: E11.22 Type 2 diabetes mellitus with diabetic chronic kidney disease (principal); N18.3 Chronic kidney disease, stage 3 (moderate)
CPT/HCPCS: 36415; 80069; 82043; 82570; 85027

== ENCOUNTER 2019-11-01 18:34 | Emergency (ER) | payer MEDICARE, SELFPAY ==
[2019-09-19 14:20] VITALS: BMI 40.4
[2019-11-01 18:35] VITALS: BP 128/69; PULSE 89; RESP 16; TEMP 37; O2SAT 98; BMI 41.6
--- NOTE | 2019-11-01 19:01 | ED.DCSUM_ITS ---
History of Present Illness Chief Complaint: Nausea/Vomiting/Diarrhea Informant: Patient Onset: Days Narrative: Patient presents with diarrhea for the past 2 days. She states she felt constipated and used a fleets enema. This cleaned her out well but now she has had frequent excessive diarrhea. She states she did vomit yesterday and had a temperature of 101. She denies urinary symptoms. She has had no recent antibiotics. - Past Medical History (1) Chronic diastolic (congestive) heart failure Status: Chronic (2) Essential (primary) hypertension Status: Chronic (3) History of thyroid cancer Status: Chronic (4) Hyperlipidemia Status: Chronic (5) Nonobstructive atherosclerosis of coronary artery Status: Chronic (6) ABDI (obstructive sleep apnea) Status: Chronic (7) Pulmonary hypertension Status: Chronic Past Medical History - Allergies and Home Meds Allergies/Adverse Reactions: Allergies adhesive Allergy (Verified 11/01/19 18:39) Hives cephalexin monohydrate [From Keflex] Allergy (Verified 11/01/19 18:39) Hives ciprofloxacin [From Cipro] Allergy (Verified 11/01/19 18:39) Swelling ketorolac tromethamine [From Toradol] Allergy (Verified 11/01/19 18:39) Hives nickel [Nickel] Allergy (Verified 11/01/19 18:39) Other Unprtrj-Yls-Ryf Reductase Inhibitor Adverse Reaction (Verified 11/01/19 18:39) Other paladium Allergy (Uncoded 11/01/19 18:39) Other Primary Care Physician: Jesus Davila MD [Primary Care Provider] - 3-5 Days if not improving Prior records reviewed: Yes Surgical History: - - Bilateral total knee replacement, hysterectomy, hernia repair with follow-up intervention secondary to SBO, cholecystectomy, appendectomy. Lives: Spouse/ Significant Other Smoking Status: Former smoker - Family History Maternal Family History: Family History (Last Reviewed 09/19/19 @ 14:24 by JAYDA BowlingC) Father Myocardial infarction Mother COPD (chronic obstructive pulmonary disease) Brother AAA (abdominal aortic aneurysm) Lung cancer Pancreatitis Sister Hypertension Diabetes CAD (coronary artery disease) partial detached retina Family History: Reports: - - Patient notes a maternal family history of COPD with history of tobacco use, past age 64. Paternal Family History: Family History (Last Reviewed 09/19/19 @ 14:24 by JAYDA BowlingC) Father Myocardial infarction Mother COPD (chronic obstructive pulmonary disease) Brother AAA (abdominal aortic aneurysm) Lung cancer Pancreatitis Sister Hypertension Diabetes CAD (coronary artery disease) partial detached retina Family History: Reports: - - Patient notes a paternal family history of massive [place], coronary disease, past age 61. Sibling Family History: Family History (Last Reviewed 09/19/19 @ 14:24 by LANEY Bowling) Father Myocardial infarction Mother COPD (chronic obstructive pulmonary disease) Brother AAA (abdominal aortic aneurysm) Lung cancer Pancreatitis Sister Hypertension Diabetes CAD (coronary artery disease) partial detached retina Family History: Reports: - - Patient notes a brother with history of ruptured aortic aneurysm, past age 49 in addition to a sister with history of heart disease and diabetes. Review of Systems General: Reports: Fever Eyes: Denies: Visual changes - bilaterally ENT: Denies: Bilateral ear pain Cardiovascular: Denies: Chest pain Respiratory: Reports: - - Mild chest congestion. Denies: Dyspnea Gastrointestinal: Reports: Abdominal pain, Nausea, Vomiting, Diarrhea Genitourinary: Denies: Dysuria Musculoskeletal: Denies: Extremity Pain Skin: Denies: Rash Neurological: Denies: Headache Allergy: Denies: Uticaria Physical Exam Vital Signs/Narrative: Vital Signs Temp Pulse Resp BP Pulse Ox 11/01/19 18:35 98.6 F 89 16 128/69 H 98 Inital Vital Signs reviewed: Yes General: Well nourished, Well developed Head: Normocephalic ENT: Moist mucous membranes Neck: Supple Cardiovascular: Regular rate, Regular rhythm Respiratory: No distress, CTA bilaterally Abdomen: Soft, Nontender, Hypoactive bowel sounds Skin: Normal color Neurological: Alert, Oriented x3 Psychological: Normal affect Diagnostic/Tx/Re-eval Laboratory Results 11/01/19 11/01/19 11/01/19 19:20 19:20 19:55 WBC 5.5 RBC 3.75 L Hgb 10.8 L Hct 33.5 L MCV 89.3 MCH 28.8 MCHC 32.2 RDW Std Deviation 46.7 H RDW Coeff of Karina 14.5 Plt Count 161 MPV 9.9 Immature Gran % (Auto) 0.400 Neut % (Auto) 66.8 Lymph % (Auto) 21.5 [place] % (Auto) 9.1 Eos % (Auto) 2.0 Baso % (Auto) 0.2 Absolute Neuts (auto) 3.7 Absolute Lymphs (auto) 1.18 Nucleated RBC % 0 Sodium 139 Potassium 3.8 Chloride 108 H Carbon Dioxide 27.0 Anion Gap 4 L BUN 35 H Creatinine 1.27 H Estim Creat Clear Calc 28.76 Est GFR (MDRD) Af Amer 53 L Est GFR (MDRD) Non-Af 44 L BUN/Creatinine Ratio 27.6 H Glucose 115 H Calcium 8.5 Urine Color Yellow Urine Clarity Clear Urine pH 7.0 Ur Specific [place] 1.005 Urine Protein Negative Urine Glucose (UA) Normal Urine Ketones Negative Urine Occult Blood Negative Urine Nitrite Negative Urine Bilirubin Negative Urine Urobilinogen Normal Ur Leukocyte Esterase Negative Urine RBC 0 SEEN Urine WBC 0 SEEN Ur Squamous Epith Cells 0-5 SEEN Urine Bacteria 0 SEEN Urine Mucus 0 SEEN - Medical Decision Making Patient was given IV fluids here. She has not been able to provide a stool sample for us. She will be given a prescription for Bentyl at home. If symptoms worsen she will return or follow with her primary care physician. She is comfortable with this plan. ED Disposition - Plan for ED Patient: Disposition: Home or Assisted Living Diagnosis: Diarrhea Instructions: VOMITING AND DIARRHEA, Nonspecific (Adult) Prescriptions: Dicyclomine HCl [Bentyl] 20 mg PO TIDAC PRN #20 cap PRN Reason: Cramp Prescription Printed Referrals: Jesus Davila MD [Primary Care Provider] - 3-5 Days if not improving
[2019-11-01] MEDS: Dicyclomine 20 MG/2 ML Vial IM (19:18)
[2019-11-01] MEDS: 0.9% Normal Saline 1,000 ML 150 ML IV (19:18)
[2019-11-01 20:08] LABS: Absolute Lymphocyte Count 1.18 X10^3/uL (0.83-4.51); Absolute Neutrophil Count 3.7 X10^3/uL (2.0-7.7); Basophil# 0.01 X10^3/uL; Basophil% 0.2 % (0-1); Eosinophil# 0.11 X10^3/uL; Hematocrit 33.5 % (37-47); Hemoglobin 10.8 g/dL (12.0-15.0); Lymphocyte # 1.18 X10^3/ul (4.0); Lymphocyte % 21.5 % (19-41); Mean Corp Hgb Conc 32.2 g/dL (32-36); Mean Corpuscular Hgb 28.8 pg (27.0-32.0); Mean Corpuscular Volume 89.3 fL (81-99); Mean Platelet Vol. 9.9 fl (6.2-12.0); Monocyte% 9.1 % (0-10); NRBC Flagged by Analyzer 0 % (0-5); Neutrophil # 3.66 X10^3/uL (2.7-7.7); Neutrophil % 66.8 % (47-70); Platelet Count 161 K/mm3 (150-450); RBC Distribution Width CV 14.5 % (11.6-14.6); RBC Distribution Width SD 46.7 fl (35.1-43.9); Red Blood Count 3.75 M/mm3 (4.2-5.4); White Blood Count 5.5 K/mm3 (4.4-11.0)
[2019-11-01 20:10] LABS: Bacteria 0 SEEN /hpf (None Seen); Mucous, Urine 0 SEEN /hpf (<or=2+); Red Blood Cells-Urine 0 SEEN /hpf (0-5); White Blood Cells 0 SEEN /hpf (0-5)
[2019-11-01 20:15] LABS: Color, Urine Yellow (Yellow); Glucose, Dipstick Normal (Normal); Ketone-Dipstick Negative (Negative); Leukocyte Esterase-Dipstick Negative /ul (Negative); Nitrite-Dipstick Negative (Negative); Occult Blood-Urine Negative /ul (Negative); Protein-Dipstick Negative (Negative); Specific Gravity, Urine 1.005 (1.002-1.030); Urine Bilirubin Dipstick Negative (Negative); Urine Clarity Clear (Clear); Urine Urobilinogen Normal (Normal)
[2019-11-01 20:18] LABS: Anion Gap 4 (5-15); BUN 35 mg/dL (7-18); BUN/Creat Ratio 27.6 RATIO (10-20); Calcium,Total 8.5 mg/dL (8.5-10.1); Chloride 108 mmol/L (98-107); Creatinine, Serum 1.27 mg/dL (0.55-1.02); EST Glomerular Filtration Rate 44 mL/min (>60); Est Glom Filt Rate - Afr Amer 53 mL/min (>60); Estimated Creatinine Clearance 28.76 ml/min; Glucose 115 mg/dL (74-106); Potassium 3.8 mmol/L (3.5-5.1); Sodium Level 139 mmol/L (136-145)
[2019-11-01 20:21] LABS: Squamous Epithelial Cells - UA 0-5 SEEN /hpf (5-10)
[2019-11-01 20:35] VITALS: BP 125/68; PULSE 85; RESP 18; O2SAT 97
[2019-11-01 22:46] VITALS: BP 145/86; PULSE 75; RESP 15; O2SAT 96
== END 2019-11-01 22:47 | disposition home or self-care (01) ==
PROVIDERS: Emergency Provider Emergency Medicine; PCP Internal Medicine
DX: R19.7 Diarrhea, unspecified (principal); R11.2 Nausea with vomiting, unspecified; R10.9 Unspecified abdominal pain; I11.0 Hypertensive heart disease with heart failure; I50.32 Chronic diastolic (congestive) heart failure; E78.5 Hyperlipidemia, unspecified; G47.33 Obstructive sleep apnea (adult) (pediatric); I27.20 Pulmonary hypertension, unspecified; Z87.19 Personal history of other diseases of the digestive system; Z85.850 Personal history of malignant neoplasm of thyroid; Z79.82 Long term (current) use of aspirin; Z79.899 Other long term (current) drug therapy; Z87.891 Personal history of nicotine dependence
CPT/HCPCS: 80048; 81001; 85025; 96360; 96361; 96372; 99283; J7030; A4216

== ENCOUNTER 2020-02-23 22:51 | Emergency (ER) | payer MEDICARE, SELFPAY ==
[2020-02-23 22:52] VITALS: BP 155/113; PULSE 80; RESP 17; TEMP 36.3; O2SAT 95; BMI 43.2
[2020-02-23 23:27] LABS: Absolute Lymphocyte Count 2.43 X10^3/uL (0.83-4.51); Basophil# 0.03 X10^3/uL; Basophil% 0.4 % (0-1); Eosinophils% 1.2 % (0-5); Hematocrit 33.9 % (37-47); Lymphocyte # 2.43 X10^3/ul (4.0); Lymphocyte % 29.6 % (19-41); Mean Corp Hgb Conc 32.4 g/dL (32-36); Mean Corpuscular Hgb 29.5 pg (27.0-32.0); Mean Corpuscular Volume 90.9 fL (81-99); Mean Platelet Vol. 9.4 fl (6.2-12.0); Monocyte# 0.56 X10^3/uL; Monocyte% 6.8 % (0-10); NRBC Flagged by Analyzer 0 % (0-5); Neutrophil # 4.97 X10^3/uL (2.7-7.7); Neutrophil % 60.4 % (47-70); Platelet Count 186 K/mm3 (150-450); RBC Distribution Width CV 14.2 % (11.6-14.6); RBC Distribution Width SD 47.2 fl (35.1-43.9); Red Blood Count 3.73 M/mm3 (4.2-5.4); White Blood Count 8.2 K/mm3 (4.4-11.0)
[2020-02-23 23:35] LABS: AST(SGOT) 19 U/L (15-37); Alanine Aminotransfer ALT/SGPT 33 U/L (13-56); Albumin, Serum 3.6 g/dL (3.2-5.0); Alkaline Phosphatase 83 U/L (45-117); Anion Gap 8 (5-15); BUN 33 mg/dL (7-18); BUN/Creat Ratio 28.9 RATIO (10-20); Calcium,Total 9.3 mg/dL (8.5-10.1); Chloride 107 mmol/L (98-107); Creatinine, Serum 1.14 mg/dL (0.55-1.02); EST Glomerular Filtration Rate 50 mL/min (>60); Est Glom Filt Rate - Afr Amer 60 mL/min (>60); Estimated Creatinine Clearance 32.04 ml/min; Globulin 3.6 g/dL (2.2-4.2); Glucose 181 mg/dL (74-106); Lipase 191 U/L (73-393); Potassium 4.1 mmol/L (3.5-5.1); Protein, Total 7.2 g/dL (6.4-8.2); Sodium Level 141 mmol/L (136-145)
[2020-02-23] MEDS: Morphine 4 MG/ML Syringe IV (23:36)
[2020-02-23] MEDS: 0.9% Normal Saline 1,000 ML 125 ML IV (23:36)
[2020-02-23] MEDS: Ondansetron 4 MG/2 ML Vial IV (23:36)
--- NOTE | 2020-02-23 23:59 | ED.VISSUMM ---
- ER Visit Summary Date of Service: 02/23/20 Chief Complaint: abdominal pain History of Present Illness: The patient is a 74 F with a history of bariatric surgery, adhesions, and multiple hernias. Presents with diffuse abdominal pain that feels like a prior small bowel obstruction. She follows with Dr. Reeves at the [facility]. She said her symptoms started this morning. She has been drinking only liquids, water. She is passing watery stools but nothing else. She has some nausea. No fevers. Physical Examination: Afebrile and vital signs unremarkable except blood pressure 155/113. Patient appears uncomfortable but not toxic or in distress. Abdomen is distended and diffusely tender. Test Results: Labs, urine, and CT pending. Emergency Department Course and Treatment: Patient treated with IV fluids, morphine, Zofran while awaiting results. Hemoglobin 11, BUN 33, creatinine 1.14. Hepatic panel and lipase normal. Urinalysis shows possible signs of infection. Cultures are pending. CT showed possible infection or inflammation of the lower abdominal wall hernia site and also chronic changes but nothing acute. I reexamined the patient. Her abdomen appears normal. There is nothing abnormal on palpation over the hernia site. I do not believe an infection or inflammation in this area would be causing her symptoms. I did advise her to follow-up with her surgeon. She will call tomorrow morning. She does not want to be admitted. She was started on Bactrim for her UTI. She has multiple drug allergies. Cultures are pending. She will follow-up with primary care. Treatment Plan: As above Disposition: Discharge Impression: Abdominal wall pain, UTI This note was generated with [employer] dictation software. It may contain incorrect words, spelling, and punctuation that were not noted in review of the chart prior to signing ED Disposition - Plan for ED Patient: Referrals: Jesus Davila MD [Primary Care Provider] -
[2020-02-24 00:53] LABS: Bacteria 0 SEEN /hpf (None Seen); Mucous, Urine 0 SEEN /hpf (<or=2+); Red Blood Cells-Urine 0 SEEN /hpf (0-5)
[2020-02-24 00:54] LABS: Color, Urine Yellow (Yellow); Glucose, Dipstick Normal (Normal); Ketone-Dipstick Negative (Negative); Leukocyte Esterase-Dipstick 100 /ul (Negative); Nitrite-Dipstick Negative (Negative); Occult Blood-Urine Negative /ul (Negative); Protein-Dipstick Negative (Negative); Specific Gravity, Urine 1.015 (1.002-1.030); Urine Bilirubin Dipstick Negative (Negative); Urine Clarity Clear (Clear); Urine Urobilinogen Normal (Normal)
[2020-02-24 01:01] LABS: Squamous Epithelial Cells - UA 0-5 SEEN /hpf (5-10); White Blood Cells 25-50 SEEN /hpf (0-5)
--- NOTE | 2020-02-24 01:46 | ED.DEP ---
ED Disposition - Plan for ED Patient: Instructions: ED Abdominal Pain Unkn Cause Fem Prescriptions: Smz/Tmp Ds [Bactrim Ds] 1 tab PO BID 7 Days #14 tab Prescription Printed Oxycodone HCl/Acetaminophen [Percocet 5/325] 1 tab PO Q6H PRN PRN 3 Days #12 tab PRN Reason: Pain Prescription Printed Ondansetron [Zofran Odt] 4 mg PO Q8H PRN PRN #10 tab PRN Reason: Nausea Prescription Printed Referrals: Jesus Davila MD [Primary Care Provider] - Additional Instructions: call your surgeon for follow up. call tomorrow.
[2020-02-24] MEDS: Smz/Tmp Ds Tablet 1 TABLET PO (02:07)
[2020-02-24 02:15] VITALS: PULSE 80; RESP 15; O2SAT 99
--- NOTE | 2020-02-24 23:04 | CT_ITS ---
STUDY: CT ABDOMEN AND PELVIS WITHOUT CONTRAST REASON FOR EXAM: Female, 74 years old patient with centralized abdominal pain. Patient has HAS past medical and surgical history of small bowel obstruction, cholecystectomy, appendectomy and multiple herniorrhaphies. Patient has had thyroidectomy secondary to thyroid cancer. RADIATION DOSAGE (If Supplied By Facility): CTDIvol = ( 24.00 ) mGy, DLP = ( 1058.03 ) mGycm TECHNIQUE: Transaxial images were obtained from the dome of the diaphragm to the symphysis pubis without oral contrast, and without intravenous contrast. Sagittal and coronal images were reconstructed. Individualized dose optimization techniques were used for this CT. COMPARISON: CT of the abdomen and pelvis dated June 06, 2019. FINDINGS: The visualized lung bases are unremarkable. The visualized portions of the heart are within normal limits. There is hepatomegaly with diffuse hepatic enlargement. The liver measures 24 cm in greatest dimension. There is a cyst visible within the right lobe of liver measuring approximately 1.4 cm in greatest dimension. This is probably unchanged since the previous CT. There are surgical clips in the gallbladder fossa consistent with a prior cholecystectomy. There is mild splenomegaly. Normal pancreas. Normal bilateral adrenal glands. Both kidneys are generally normal size and position. 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 This is unchanged since the previous CT. There is mild perinephric stranding. There is no evidence for hydronephrosis, hydroureter or radiopaque ureteral calculi. There are surgical sutures within the proximal stomach suggesting possible sequelae of gastric bypass surgery there is no evidence for dilated bowel, ascites or pneumoperitoneum. Small bowel has a grossly normal appearance. Stool and/or gas is visible throughout the colon with scattered diverticula. There are surgical clips in the region of the appendix consistent with a prior appendectomy. There is minimal atherosclerotic calcification of the abdominal aorta, without a demonstrated aneurysm. There is venous distention of the inferior vena cava (IVC). Normal retroperitoneum. Normal urinary bladder. There is absence of the uterus consistent with a prior hysterectomy. Multiple pelvic calcifications are probably phleboliths. Mesh material is visible within the anterior abdominal wall consistent with herniorrhaphy. There is some bowel adjacent to to the abdominal wall suggesting possible adhesions. There is abnormally increased attenuation within the superficial soft tissues of the anterior abdominal wall suggesting sequela of infection or possibly recent trauma. There is minimal anterolisthesis of L5 on S1 secondary to spondylolysis of L5. There is mildly exaggerated lumbar lordosis. There are degenerative changes of the imaged lower thoracic spine. There are degenerative changes of the right hip. CT/Abdomen/Pelvis without Cont IMPRESSION: 1. Possible acute inflammation or infection of the lower central abdominal wall near herniorrhaphy site. 2. Hepatomegaly with hepatic cysts. 3. 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 4. Mild splenomegaly. 5. No CT evidence of acute intra-abdominal disease. Electronically Signed: Brandie Henning MD at 0:43 EDT , Service support ,
== END 2020-02-24 02:16 | disposition home or self-care (01) ==
LOC: ED 23:35
PROVIDERS: Emergency Provider Emergency Medicine; PCP Internal Medicine
DX: N39.0 Urinary tract infection, site not specified (principal); I25.10 Atherosclerotic heart disease of native coronary artery without angina pectoris; I11.0 Hypertensive heart disease with heart failure; I50.9 Heart failure, unspecified; E78.00 Pure hypercholesterolemia, unspecified; G47.33 Obstructive sleep apnea (adult) (pediatric); Z87.19 Personal history of other diseases of the digestive system; Z98.84 Bariatric surgery status; Z79.82 Long term (current) use of aspirin; Z79.899 Other long term (current) drug therapy
CPT/HCPCS: 74176; 80053; 81001; 83690; 85025; 87086; 87088; 96361; 96374; 96375; 99283; J7030; A4216; J2405

== ENCOUNTER → 2020-03-06 09:05 | Outpatient (CLI) | payer MEDICARE, SELFPAY ==
[2020-02-23 22:52] VITALS: BMI 43.2
[2020-03-06 10:00] LABS: Hematocrit 34.1 % (37-47); Hemoglobin 10.9 g/dL (12.0-15.0); Mean Corpuscular Hgb 29.7 pg (27.0-32.0); Mean Corpuscular Volume 92.9 fL (81-99); Mean Platelet Vol. 9.6 fl (6.2-12.0); Platelet Count 179 K/mm3 (150-450); RBC Distribution Width SD 49.1 fl (35.1-43.9); Red Blood Count 3.67 M/mm3 (4.2-5.4); White Blood Count 6.3 K/mm3 (4.4-11.0)
[2020-03-06 10:24] LABS: Albumin, Serum 3.6 g/dL (3.2-5.0); BUN 30 mg/dL (7-18); BUN/Creat Ratio 24.4 RATIO (10-20); Calcium,Total 9.3 mg/dL (8.5-10.1); Chloride 106 mmol/L (98-107); Creatinine, Serum 1.23 mg/dL (0.55-1.02); EST Glomerular Filtration Rate 46 mL/min (>60); Est Glom Filt Rate - Afr Amer 55 mL/min (>60); Glucose 211 mg/dL (74-106); Phosphorus 3.5 mg/dL (2.5-4.9); Potassium 4.3 mmol/L (3.5-5.1); Sodium Level 138 mmol/L (136-145)
== END ==
PROVIDERS: PCP Internal Medicine; Referring Provider Internal Medicine Nephrology; Visit Provider Internal Medicine Nephrology
DX: N18.3 Chronic kidney disease, stage 3 (moderate) (principal); D50.9 Iron deficiency anemia, unspecified
CPT/HCPCS: 36415; 80069; 85027

== ENCOUNTER → 2020-03-19 11:01 | Outpatient (CLI) | payer MEDICARE, SELFPAY ==
[2019-09-19 14:20] VITALS: BMI 40.4
[2020-02-23 22:52] VITALS: BMI 43.2
[2020-03-19 11:27] VITALS: PULSE 109; PULSE 113; PULSE 120; PULSE 123; PULSE 124; PULSE 127; PULSE 87; PULSE 88; O2SAT 91; O2SAT 92; O2SAT 95
--- NOTE | 2020-03-19 13:39 | PCM.PSN.6M ---
PSN 6 Minute Walk Test - 6 Minute Walk Test 6 Minute Walk Test: 6 Minute Walk Test PSN:6-Minute Walk Test Start: 03/19/20 11:27 Freq: Status: Active Protocol: RESP.6MINW Document 03/19/20 11:27 UMUMonty (Rec: 03/19/20 11:30 JLA [id number]) 6 Minute Walk Test Date Performed 03/19/20 Time Performed 11:00 Height 5 ft Weight: 102.512 kg Weight in Pounds 226.[address]: Neymar Valles Assistive device used: None Pre-test Oxygen Delivery Method Room Air Pulse Ox (%) 92 Pulse Rate (60-100 beats/min) 88 Dyspnea Jyoti Scale (0-10) 0.5 Exertion Jyoti Scale (6-20) 6 1st minute Oxygen Delivery Method Room Air Pulse Ox (%) 91 Pulse Rate (60-100 beats/min) 113 H 2nd minute Oxygen Delivery Method Room Air Pulse Ox (%) 92 Pulse Rate (60-100 beats/min) 109 H 3rd minute Oxygen Delivery Method Room Air Pulse Ox (%) 92 Pulse Rate (60-100 beats/min) 120 H 4th minute Oxygen Delivery Method Room Air Pulse Ox (%) 92 Pulse Rate (60-100 beats/min) 123 H 5th minute Oxygen Delivery Method Room Air Pulse Ox (%) 92 Pulse Rate (60-100 beats/min) 124 H 6th minute Oxygen Delivery Method Room Air Pulse Ox (%) 91 Pulse Rate (60-100 beats/min) 127 H Dyspnea Jyoti Scale (0-10) 3 Exertion Jyoti Scale (6-20) 11 Post-test Oxygen Delivery Method Room Air Pulse Ox (%) 95 Pulse Rate (60-100 beats/min) 87 Full Laps Walked 12 Partial Lap, Number of Tiles Walked 50 Total Distance Walked (ft) 758 - Interpretation Interpretation: The patient was noted to have a lower baseline saturation of 92% on room air. The patient then ambulated 758 feet over the course of 6 minutes with no assistive devices. The patient experienced no significant desaturation, but did have tachycardia as high as 127 bpm. These findings are consistent with a cardiopulmonary limitation exercise tolerance. - Recommendations Recommendations: No supplemental oxygen is indicated at this time. However, patient will need to be followed closely given level of desaturation.
== END ==
PROVIDERS: Family Provider Internal Medicine; PCP Internal Medicine; Referring Provider Nurse Practitioner Acute Care; Visit Provider Nurse Practitioner Acute Care
DX: R06.02 Shortness of breath (principal)
CPT/HCPCS: 94618

== ENCOUNTER → 2020-03-23 12:56 | Outpatient (CLI) | payer MEDICARE, SELFPAY ==
[2019-09-19 14:20] VITALS: BMI 40.4
[2020-02-23 22:52] VITALS: BMI 43.2
--- NOTE | 2020-03-25 07:40 | PFT ---
INTRODUCTION: The patient is a 74-year-old female that presents for pulmonary function studies secondary to a diagnosis of shortness of breath. Respiratory therapy reports good patient effort. Bronchodilators were used during testing. INTERPRETATION: Forced expiration spirometry demonstrates no evidence of a large airways obstructive ventilatory defect. There was no significant response to aerosolized bronchodilators. Spirograms are of good quality and plateau gradually indicating slow emptying of the lungs. Body plethysmography was performed and reveals lung volumes to be within normal limits. Diffusing capacity by single breath CO is at the lower limits of normal. IMPRESSION: Isolated mild reduction in diffusing capacity.
== END ==
PROVIDERS: Family Provider Internal Medicine; PCP Internal Medicine; Referring Provider Nurse Practitioner Acute Care; Visit Provider Nurse Practitioner Acute Care
DX: R06.02 Shortness of breath (principal)
CPT/HCPCS: 94060; 94726; 94729

== ENCOUNTER 2020-06-15 05:58 | Inpatient (IN) | payer MEDICARE, SELFPAY ==
[2020-06-04 14:01] VITALS: BMI 44.7
[2020-06-15] VITALS (9 sets, daily range): BP systolic 112–139; BP diastolic 52–73; PULSE 75–104; RESP 16–20; TEMP 36.2–38.5; O2SAT 92–96; BMI 46.0; BMI 43.8
--- NOTE | 2020-06-15 06:07 | CT_ITS ---
STUDY: CT BRAIN WITHOUT CONTRAST REASON FOR EXAM: Female, 75 years old. ABD PAIN, CONFUSION, HTN, CHF, CKD, DB-INSULIN, FEVER, UTI, SURG-THYROIDECTOMY,APPENDECTOMY,GB,PER/BSO, knee replacement,MULT. HERNIA REPAIRS WITH MESH, GASTRIC BYPASS, TUMOR REMOVED FROM RT KIDNEY RADIATION DOSAGE (If Supplied By Facility): CTDIvol = ( 44.99 ) mGy, DLP = ( 745.49 ) mGycm TECHNIQUE: Transaxial CT imaging of the brain was performed without administration of intravenous contrast material. Coronal and sagittal reconstructions were performed. Individualized dose optimization techniques were used for this CT. COMPARISON: CT head without contrast 08/23/2014. FINDINGS: Normal soft tissue structures. Normal calvarium. Normal size ventricles and extra-axial spaces for the patient''s age. Normal white matter tracts of the cerebral hemispheres. Normal basal ganglia and thalami. Normal brainstem. Normal cerebellum. There is no intracranial hemorrhage. There are no findings of an acute ischemic infarction. Normal visualized paranasal sinuses. CT/Brain/Head without Contrast IMPRESSION: Normal unenhanced CT scan of the brain and without significant change when compared to 08/23/2014. Electronically Signed: Wilber Cheatham MD at 8:20 EDT , Service support ,
--- NOTE | 2020-06-15 06:07 | EKG12_ITS ---
Test Reason : Blood Pressure : / mmHG Vent. Rate : 100 BPM Atrial Rate : 100 BPM P-R Int : 166 ms QRS Dur : 094 ms QT Int : 350 ms P-R-T Axes : 033 -61 023 degrees QTc Int : 451 ms Sinus rhythm with occasional Premature ventricular complexes Left axis deviation Low voltage QRS Possible Anterolateral infarct , age undetermined Abnormal ECG Confirmed by ZAK LOPEZ, SERENE ([id number]), news editor PRABHA ORELLANA ([id number]) on 06/16/2020 9:38:39 AM Referred By: Confirmed By:SERENE CRESPO MD
--- NOTE | 2020-06-15 06:07 | RAD_ITS ---
STUDY: X-RAY CHEST REASON FOR EXAM: Female, 75 years old. FEVER AND CONFUSION TECHNIQUE: AP upright portable view. COMPARISON: 04/05/2018. FINDINGS: Mild pulmonary hypoinflation. Oblique linear scarring in the right upper lobe just above the right hilum is unchanged. No suspicious infiltrates. There is no demonstrated pleural abnormality. Normal size heart. Normal mediastinum and kristen. Normal visualized pulmonary arteries. Normal visualized aortic arch and descending thoracic aorta. Normal visualized thoracic spine. Degenerative osteophytes arthrosis of the left glenohumeral articulation and osteophytic spur in the inferomedial aspect of the left humeral head are unchanged. Normal clavicles and rib cage. The right shoulder is not included. There is no demonstrated abnormality of the visualized soft tissue structures of the upper abdomen. RAD/Chest 1 View (Portable) IMPRESSION: 1. No acute cardiopulmonary pathology. 2. No significant interval change when compared to 04/05/2018. Electronically Signed: Wilber Cheatham MD at 8:26 EDT , Service support ,
--- NOTE | 2020-06-15 06:08 | CT_ITS ---
STUDY: CT ABDOMEN AND PELVIS WITHOUT CONTRAST REASON FOR EXAM: Female, 75 years old. ABD PAIN, CONFUSION, HTN, CHF, CKD, DB-INSULIN, FEVER, UTI, SURG-THYROIDECTOMY,APPENDECTOMY,GB,PER/BSO, knee replacement,MULT. HERNIA REPAIRS WITH MESH, GASTRIC BYPASS, TUMOR REMOVED FROM RT KIDNEY RADIATION DOSAGE (If Supplied By Facility): CTDIvol = ( 33.73 ) mGy, DLP = ( 1507.28 ) mGycm TECHNIQUE: Transaxial images were obtained from the dome of the diaphragm to the symphysis pubis with oral contrast, and without intravenous contrast. Sagittal and coronal images were reconstructed. Individualized dose optimization techniques were used for this CT. COMPARISON: CT abdomen and pelvis without contrast 02/24/2020. FINDINGS: Curvilinear subsegmental atelectases in the right posterior lung base has increased in thickness. The visualized portions of the heart are within normal limits. Small calcified granulomas near the falciform ligament of the left hepatic lobe. Hypodense cyst in the liver is unchanged. Postsurgical absence of the gallbladder. Borderline splenomegaly measuring 13.3 cm long. Normal pancreas. Normal bilateral adrenal glands. Normal right kidney. Normal left kidney. Surgical sutures in the stomach from previous gastric bypass surgery. Normal contrast-filled small intestine. Abnormal irregular intramural thickening of the sigmoid colon appears adherent to the anterior abdominal wall with inflammatory changes of the anterior abdominal fat inside and outside the anterior abdominal wall. These inflammatory changes around the anterior abdominal wall surgical sutures. Postsurgical absence of the appendix. Few calcified plaques along the abdominal aorta and iliac arteries. No abdominal aortic aneurysm. Normal inferior vena cava. Normal retroperitoneum. Normal urinary bladder. Postsurgical absence of the uterus. Ankylosis of L5 and S1 bodies with at least grade 1 anterolisthesis of L5 on S1 and the bilateral L5 pars defects are unchanged. Severe stenosis of the bilateral intervertebral neural foramina at L5-S1 disc level are also unchanged. No acute osseous abnormality. OPINION: 1. Abnormal irregular intramural thickening of the sigmoid colon with inflammatory changes of the surrounding fat inside and outside the lower protuberant anterior abdominal wall surrounding the previous surgical sutures. This is worrisome for severe acute diverticulitis since there was presence of prior diverticula of the sigmoid colon near the anterior abdominal wall when compared to 02/24/2020. 2. Increase thickness of the curvilinear subsegmental atelectases in the right posterior lung base. 3. Calcified granulomas in the left hepatic lobe near the falciform ligament and small hypodense hepatic cyst are unchanged. 4. Severe stenosis of the bilateral L5-S1 intervertebral neural foramina, ankylosis of the L5 and S1 vertebral bodies with complete collapse of the disc space height, bilateral L5 pars defects and at least grade 1 anterolisthesis of L5 on S1 are unchanged. 5. No other additional findings or changes when compared to 02/24/2020. Electronically Signed: Wilber Cheatham MD at 8:41 EDT , Service support , CT/Abdomen/Pelvis without Cont
--- NOTE | 2020-06-15 06:18 | ED.VISSUMM ---
- ER Visit Summary Date of Service: 06/15/20 Chief Complaint: Fever History of Present Illness: The patient is a 75 F presenting with fever. Patient states this started yesterday. Patient's states she had a temperature up to 102.2 last night. He states she has been confused. He states she had slurred speech last night which improved this morning. She has had trouble getting around secondary to bilateral hip pain. She is awaiting hip replacement. She is on Atkins. This is not a new medication. No recent fall. No known exposure to COVID. She complains of painful urination and lower abdominal pain. She states she had blood in her urine this morning. states she is confused and there was no blood. Denies nausea, vomiting, diarrhea. Denies chest pain or shortness of breath. Denies other complaints. Physical Examination: Vitals are stable. Temperature 100. Alert no acute distress. HEENT exam is unremarkable. Moist mucous membranes Neck is supple. No meningismus Lungs are clear and equal bilaterally. Heart is regular and tachycardic Abdomen is soft diffuse tenderness with no rebound or guarding Extremities are unremarkable. Skin is warm and dry. No rash No focal neurologic deficit. NIH 0 Remainder of exam is unremarkable. Emergency Department Course and Treatment: Patient was given IV fluids, Tylenol. EKG is sinus rhythm rate of 100, unchanged from previous. Blood and urine cultures were sent. CBC shows white count 13.5, hemoglobin 10.9. Urinalysis shows 0 white blood cells, 0-5 red blood cells, 0-5 epithelial cells. Chest xray, CT head and abdomen are pending and will be checked out to the oncoming physician. Disposition: pending Impression: Febrile illness, altered mental status This note was generated with [employer] software. It may contain incorrect words, spelling, and punctuation that were not noted in review of the chart prior to signing ED Disposition - Plan for ED Patient: Referrals: Jesus Davila MD [Primary Care Provider] -
[2020-06-15] MEDS: Acetaminophen 500 MG Tablet 1000 MG PO (06:28)
[2020-06-15 06:33] LABS: Mucous, Urine 0 SEEN /hpf (<or=2+); White Blood Cells 0 SEEN /hpf (0-5)
[2020-06-15 06:35] LABS: Color, Urine Yellow (Yellow); Glucose, Dipstick Normal (Normal); Ketone-Dipstick Negative (Negative); Leukocyte Esterase-Dipstick 25 /ul (Negative); Nitrite-Dipstick Negative (Negative); Occult Blood-Urine 10 /ul (Negative); Protein-Dipstick 100 mg/dl (Negative); Specific Gravity, Urine 1.015 (1.002-1.030); Urine Bilirubin Dipstick Negative (Negative); Urine Clarity Sl. Cloudy (Clear); Urine Urobilinogen Normal (Normal)
[2020-06-15 06:37] LABS: Absolute Lymphocyte Count 2.01 X10^3/uL (0.83-4.51); Absolute Neutrophil Count 10.2 X10^3/uL (2.0-7.7); Basophil# 0.03 X10^3/uL; Basophil% 0.2 % (0-1); Eosinophil# 0.02 X10^3/uL; Eosinophils% 0.1 % (0-5); Hematocrit 34.1 % (37-47); Hemoglobin 10.9 g/dL (12.0-15.0); Lymphocyte # 2.01 X10^3/ul (4.0); Lymphocyte % 14.9 % (19-41); Mean Corpuscular Hgb 29.2 pg (27.0-32.0); Mean Corpuscular Volume 91.4 fL (81-99); Mean Platelet Vol. 9.6 fl (6.2-12.0); Monocyte# 1.23 X10^3/uL; Monocyte% 9.1 % (0-10); NRBC Flagged by Analyzer 0 % (0-5); Neutrophil # 10.16 X10^3/uL (2.7-7.7); Neutrophil % 75.1 % (47-70); Platelet Count 208 K/mm3 (150-450); RBC Distribution Width CV 14.7 % (11.6-14.6); RBC Distribution Width SD 49.6 fl (35.1-43.9); Red Blood Count 3.73 M/mm3 (4.2-5.4); White Blood Count 13.5 K/mm3 (4.4-11.0)
[2020-06-15 06:43] LABS: Amorphous Sediment 2+; Bacteria 1+ /hpf (None Seen)
[2020-06-15 06:44] LABS: Red Blood Cells-Urine 0-5 SEEN /hpf (0-5)
[2020-06-15 06:45] LABS: Squamous Epithelial Cells - UA 0-5 SEEN /hpf (5-10)
[2020-06-15 06:49] LABS: ALB/GLOB Ratio 0.7 RATIO (0.9-2.4); AST(SGOT) 16 U/L (15-37); Alanine Aminotransfer ALT/SGPT 21 U/L (13-56); Alkaline Phosphatase 76 U/L (45-117); Anion Gap 6 (5-15); BUN 25 mg/dL (7-18); BUN/Creat Ratio 18.5 RATIO (10-20); Calcium,Total 9.3 mg/dL (8.5-10.1); Chloride 100 mmol/L (98-107); Creatinine, Serum 1.35 mg/dL (0.55-1.02); EST Glomerular Filtration Rate 41 mL/min (>60); Est Glom Filt Rate - Afr Amer 49 mL/min (>60); Estimated Creatinine Clearance 26.66 ml/min; Globulin 4.2 g/dL (2.2-4.2); Glucose 231 mg/dL (74-106); Protein, Total 7.2 g/dL (6.4-8.2); Sodium Level 134 mmol/L (136-145)
[2020-06-15 06:53] LABS: Lactic Acid 1.4 mmol/L (0.4-1.9)
--- NOTE | 2020-06-15 09:54 | HP.PCM_ITS ---
Problem List (1) Diverticulitis large intestine Status: Acute Qualifiers: Diverticulitis bleeding: without bleeding Diverticulitis complication: without perforation or abscess Qualified Code(s): K57.32 - Diverticulitis of large intestine without perforation or abscess without bleeding (2) Nonobstructive atherosclerosis of coronary artery Status: Chronic (3) Chronic diastolic (congestive) heart failure Status: Chronic (4) Essential (primary) hypertension Status: Chronic (5) Hyperlipidemia Status: Chronic Qualifiers: (6) History of thyroid cancer Status: Chronic (7) Pulmonary hypertension Status: Chronic (8) ABDI (obstructive sleep apnea) Status: Chronic History of Present Illness Date of Admission: 06/15/20 Chief Complaint: Abdominal pain The patient is a 75 year old F with multiple comorbidities including hypertension, dyslipidemia, diabetes mellitus type 2 who presented with abdominal pain. Patient symptoms started about 2 days prior to coming in. Pain was described as crampy. Patient in addition was reported to be confused and had a fever of 102.2. Patient also did complain of nausea but no vomiting. Presented to the emergency department as a result. Imaging studies obtained in the ED demonstrated normal irregular intramural thickening of the sigmoid colon with inflammatory changes of the surrounding fat inside and outside the lower protuberant anterior abdominal wall surrounding the previous surgical sutures. This was thought to be worrisome for severe diverticulitis. Patient was started on Zosyn admitted to regular nursing floor for further management Past Medical History Past Medical History (Chronic Problems): Chronic Problems (Last Reviewed 06/15/20 @ 10:[address] Kemal Joe MD) Nonobstructive atherosclerosis of coronary artery (Chronic) Chronic diastolic (congestive) heart failure (Chronic) Essential (primary) hypertension (Chronic) Hyperlipidemia (Chronic) History of thyroid cancer (Chronic) Pulmonary hypertension (Chronic) ABDI (obstructive sleep apnea) (Chronic) Medical History: Medical History (Last Reviewed 06/15/20 @ 10:[address] 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, N18.3 DM type 2 causing CKD stage 3 E11.22, N18.3 Degenerative arthritis of hip M16.9 Degenerative arthritis of knee M17.10 Depressive disorder F32.9 Morbid obesity E66.01 Myalgia M79.10 ABDI (obstructive sleep apnea) G47.33 Osteoarthritis M19.90 Sensorineural hearing loss (SNHL), bilateral H90.3 Type 2 diabetes mellitus E11.9 Bowel obstruction K56.609 Dyspnea R06.00 Dyspnea (Resolved) R06.00 Edema R60.9 History of left heart catheterization Onset Date: 09/13/17 Z98.890 Pneumonia J18.9 SBO (small bowel obstruction) K56.609 Small bowel obstruction K56.609 Allergies adhesive Allergy (Verified 06/15/20 06:09) Hives cephalexin monohydrate [From Keflex] Allergy (Verified 06/15/20 06:09) Hives ciprofloxacin [From Cipro] Allergy (Verified 06/15/20 06:09) Swelling ketorolac tromethamine [From Toradol] Allergy (Verified 06/15/20 06:09) Hives nickel [Nickel] Allergy (Verified 06/15/20 06:09) Other Cmepmdi-Hul-Eag Reductase Inhibitor Adverse Reaction (Verified 06/15/20 06:09) Other paladium Allergy (Uncoded 06/04/20 14:02) Other Home Medications: Ambulatory Orders Medication Instructions Recorded Aspirin [Aspirin, Baby] 81 mg PO DAILY@0800 08/22/14 Gabapentin [Neurontin] 600 mg PO BID 08/22/14 Insulin Aspart [Novolog Flexpen] See Protocol SUBCUT 4X/DAY 04/05/18 Hydrocodone/Acetaminophen 1 tab PO BID PRN 10/25/18 [Hydrocodone-Acetamin 10-325 mg] Docusate Sodium [Colace] 100 mg PO DAILY 06/06/19 Multivit-Min/Iron/Folic Acid/K 1 ea PO DAILY 06/06/19 [Bariatric Mv-Iron 45 mg Cap] Pantoprazole Sodium [Protonix] 20 mg PO BID 06/06/19 Calcium Citrate/Vitamin D3 2 ea PO BID 07/04/19 [Citracal + D Maximum Caplet] Metoprolol Tartrate [Lopressor 25 mg PO DAILY PRN PRN 07/04/19 (beta laura)] fluticasone propionate 50 2 spray INTRANASAL DAILY 07/23/19 mcg/actuation nasal spray,suspension Melatonin 10 mg PO QHS 11/01/19 Duloxetine Hcl [Cymbalta] 30 mg PO BID 02/23/20 diphenhydramine HCl 25 mg tablet 25 mg PO DAILY PRN tab 06/04/20 furosemide 20 mg tablet 20 mg PO BID tab 06/04/20 insulin aspart U-100 100 unit/mL 6 unit SUBCUT LUNCH ml 06/04/20 (3 mL) subcutaneous pen insulin aspart U-100 100 unit/mL 6 unit SUBCUT QHS ml 06/04/20 (3 mL) subcutaneous pen insulin aspart U-100 100 unit/mL 9 unit SUBCUT BREAKFAST ml 06/04/20 (3 mL) subcutaneous pen insulin aspart U-100 100 unit/mL 9 unit SUBCUT DINNER ml 06/04/20 (3 mL) subcutaneous pen insulin detemir U-100 100 unit/mL 21 unit SUBCUT QHS ml 06/04/20 (3 mL) subcutaneous pen insulin detemir U-100 100 unit/mL 19 unit SC QAM ml 06/04/20 subcutaneous solution levothyroxine 150 mcg tablet 150 mcg PO .COMPLEX 06/04/20 nitroglycerin 0.4 mg sublingual 0.4 mg SUBLINGUAL Q5-15M PRN 06/04/20 tablet polyethylene glycol 3350 17 17 g PO DAILY 06/04/20 gram/dose oral powder Surgical History: Surgical History (Last Reviewed 06/15/20 @ 10:[address] Kemal Joe MD) H/O colonoscopy Z98.890 06/06/2004 H/O hernia repair Z98.890, Z87.19 x7, 09/14/2005 H/O thyroidectomy Z98.890 H/O total hysterectomy Z90.710 05/20/2001 H/O umbilical hernia repair Z98.890, Z87.19 , 2001, 2007 History of bariatric surgery Z98.84 History of bladder suspension procedure Z98.890, Z87.448 05/20/2001 History of total left knee replacement Z96.652 History of total right knee replacement Z96.651 Hx of appendectomy Z90.49 05/30/2001 Hx of cholecystectomy Z90.49 05/20/2001 Right kidney lesion removal 03/10/91 cataract lens implant akshat linares Surgical History: - - Bilateral total knee replacement, hysterectomy, hernia repair with follow-up intervention secondary to SBO, cholecystectomy, appendectomy. 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 Kemal Joe MD) Father Myocardial infarction Mother COPD (chronic obstructive pulmonary disease) Brother AAA (abdominal aortic aneurysm) Lung cancer Pancreatitis Sister Hypertension Diabetes CAD (coronary artery disease) partial detached retina History Items: - - Patient notes a maternal family history of COPD with history of tobacco use, past age 64. Paternal Family History: Family History (Last Reviewed 06/15/20 @ 10:[address] Kemal Joe MD) Father Myocardial infarction Mother COPD (chronic obstructive pulmonary disease) Brother AAA (abdominal aortic aneurysm) Lung cancer Pancreatitis Sister Hypertension Diabetes CAD (coronary artery disease) partial detached retina History Items: - - Patient notes a paternal family history of massive [place], coronary disease, past age 61. Sibling Family History: Family History (Last Reviewed 06/15/20 @ 10:[address] Kemal Joe MD) Father Myocardial infarction Mother COPD (chronic obstructive pulmonary disease) Brother AAA (abdominal aortic aneurysm) Lung cancer Pancreatitis Sister Hypertension Diabetes CAD (coronary artery disease) partial detached retina History Items: - - Patient notes a brother with history of ruptured aortic aneurysm, past age 49 in addition to a sister with history of heart disease and diabetes. Review of Systems Constitutional: Reports: Fever. Denies: Anorexia, Chills, Weight Change HEENT: Denies: Head Aches, Sinus Congestion, Sinus Drainage Cardiovascular: Denies: Chest Pain, Orthopnea, Palpitations, Paroxysmal Noc. Dyspnea Respiratory: Denies: Cough, Shortness of breath at rest, Shortness of breath upon exertion, Sputum production Gastrointestinal: Denies: Abdominal Pain, Hematemesis, Hematochezia, Nausea, Melena, Vomiting Genitourinary: Denies: Dysuria, Frequency, Hematuria, Urgency Musculoskeletal: Denies: Joint Pain, Joint Tenderness Skin: Denies: Rash Neurological: Denies: Focal weakness, Numbness, Tingling Psychiatric: Denies: Homicidal Ideations, Suicidal Ideations Hematologic/ Lymphatic: Denies: Easy Bruising, Easy Bleeding VTE Information - Inpt Only VTE Present on Admission: No VTE Mechan Device Prophylaxis: None VTE Pharm Prophylaxis ordered?: Yes Patient Problems: Active and Suspected Problems (Last Reviewed 06/15/20 @ 10:[address] Kemal Joe MD) Diverticulitis large intestine (Acute) Objective: GENERAL: cooperative HEENT: Atraumatic; EYES; Anicteric, Normal Conjunctiva NECK; supple, normal thyroid, RESPIRATORY: Diminished to auscultation CARDIOVASCULAR: Regular S1 S2, GI: Protuberant abdomen with left lower quadrant tenderness : No Renal angle tenderness; EXTREMITIES: No edema, no clubbing, MUSCULOSKELETAL: no muscle waisting NEURO: Awake; no lateralizing signs. SKIN: No Rash PSYCH; Flat affect - Physical Exam Vitals/I&O's: Vital Signs Temp Pulse Resp BP Pulse Ox 97.2 F L 82 16 139/72 H 92 06/15/20 09:00 06/15/20 09:00 06/15/20 09:00 06/15/20 09:00 06/15/20 09:00 Oxygen Delivery Method Room Air Weight: 106.8 kg Body Mass Index (BMI) 46.0 Finger Stick Blood Glucose 173 Intake and Output for Last 24 Hours 06/13/20 06/14/20 06/15/20 23:59 23:59 23:59 Intake Total 500 / 500 Balance 500 / 500 Laboratory Results 06/15/20 06:20: WBC 13.5 H, RBC 3.73 L, Hgb 10.9 L, Hct 34.1 L, MCV 91.4, MCH 29.2, MCHC 32.0, RDW Std Deviation 49.6 H, RDW Coeff of Karina 14.7 H, Plt Count 208, MPV 9.6, Immature Gran % (Auto) 0.600, Neut % (Auto) 75.1 H, Lymph % (Auto) 14.9 L, [place] % (Auto) 9.1, Eos % (Auto) 0.1, Baso % (Auto) 0.2, Absolute Neuts (auto) 10.2 H, Absolute Lymphs (auto) 2.01, Nucleated RBC % 0 06/15/20 06:20: Sodium 134 L, Potassium 4.0, Chloride 100, Carbon Dioxide 28.0, Anion Gap 6, BUN 25 H, Creatinine 1.35 H, Estim Creat Clear Calc 26.66, Est GFR (MDRD) Af Amer 49 L, Est GFR (MDRD) Non-Af 41 L, BUN/Creatinine Ratio 18.5, Glucose 231 H, Calcium 9.3, Total Bilirubin 0.60, AST 16, ALT 21, Alkaline Phosphatase 76, Troponin I < 0.015, Total Protein 7.2, Albumin 3.0 L, Globulin 4.2, Albumin/Globulin Ratio 0.7 L 06/15/20 06:20: Lactic Acid 1.4 06/15/20 06:28: Urine Color Yellow, Urine Clarity Sl. Cloudy, Urine pH 5.0, Ur Specific [place] 1.015, Urine Protein 100 H, Urine Glucose (UA) Normal, Urine Ketones Negative, Urine Occult Blood 10 H, Urine Nitrite Negative, Urine Bilirubin Negative, Urine Urobilinogen Normal, Ur Leukocyte Esterase 25 H, Urine RBC 0-5 SEEN, Urine WBC 0 SEEN, Ur Squamous Epith Cells 0-5 SEEN, Amorphous Sediment 2+, Urine Bacteria 1+, Urine Mucus 0 SEEN Assessment/Plan All Active Problems (Last Reviewed 06/15/20 @ 10:[address] Kemal Joe MD) Diverticulitis large intestine (Acute) Confusion (Resolved) Dehydration (Resolved) Dyspnea (Resolved) Fever (Resolved) UTI (lower urinary tract infection) (Resolved) Patient is a 75-year-old lady who presented with left lower quadrant abdominal pain, fever with some confusion. Imaging studies obtained on admission demonstrated severe diverticulitis involving the sigmoid colon admitted to regular nursing floor for further management 1. Acute sigmoid diverticulitis ?Imaging studies demonstrated severe diverticulitis. Patient has been admitted to regular nursing floor. Was started on clear liquids, broad-spectrum antibiotic therapy with Zosyn as well as pain medication and antinausea medication. Given the severity of patient's symptoms consult was placed to general surgery 2. Diabetes mellitus type II Controlled with complications including glycemia and diabetic nephropathy patient's oral hypoglycemics held,, placed on long-acting insulin in addition to on Accu-Cheks a.c. and at bedtime and covered with sliding scale insulin 3. Hypertension - Blood pressure controlled, home medications continued with dose adjustment as needed 4. Obesity with BMI of 46.0 ?Patient has history of gastric bypass 5. Congestive heart failure with preserved ejection fraction ?Patient is on Lasix which is currently being held since patient is being resuscitated with fluids for her diverticulitis 6. History of of thyroid cancer status post thyroidectomy - Patient is on levothyroxine home dose continued 7. GERD ?Patient is on PPI 8. Obstructive sleep apnea ?Patient is on BiPAP at night 9. Degenerative joint disease ?With previous history of knee replacement 10. Chronic kidney disease stage III ?secondary to diabetic nephropathy kidney function at baseline 1.35 11. Sensorineural hearing loss ?Patient uses hearing aids 12. History of nonalcoholic fatty liver disease ?Stable 10. DVT prophylaxis - On enoxaparin Advance planning; did discuss with the patient and family regarding advanced directives as well as CODE STATUS. Did explain the various scenarios involved ( FULL CODE, DNR CCA, DNR CCA with no intubation, and DNR CC and what each meant) patient elected full code with CPR and intubation if warranted. Order was placed. Time spent on discussion 18 minutes. Inpatient E&M: 93832 [facility] L[facility] Procedures: [id number] Advncd Care Plan 30 Min
--- NOTE | 2020-06-15 10:36 | NURSING ---
104 KITTOE SEVERE DIVERTICULITIS
--- NOTE | 2020-06-15 13:16 | CON.PCM_ITS ---
Problem List (1) Diverticulitis large intestine Status: Acute Qualifiers: Diverticulitis bleeding: without bleeding Diverticulitis complication: without perforation or abscess Qualified Code(s): K57.32 - Diverticulitis of large intestine without perforation or abscess without bleeding Reason for Consult Date of Consultation: 06/15/20 Reason for Consultation: Possible diverticulitis History of Present Illness: The patient is a 75 year old F with extensive history of hernia repairs and mesh presented with left lower quadrant pain. The patient says this is been going on for the last couple days. She is concerned because she is supposed to have her hip repaired in July. Patient does not note any nausea or vomiting but she does note that she is having a lot of abdominal pain. Past Medical History Past Medical History (Chronic Problems): Chronic Problems (Last Reviewed 06/15/20 @ 10:[address] Kemal Joe MD) Nonobstructive atherosclerosis of coronary artery (Chronic) Chronic diastolic (congestive) heart failure (Chronic) Essential (primary) hypertension (Chronic) Hyperlipidemia (Chronic) History of thyroid cancer (Chronic) Pulmonary hypertension (Chronic) ABDI (obstructive sleep apnea) (Chronic) Medical History: Medical History (Last Reviewed 06/15/20 @ 10:[address] 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, N18.3 DM type 2 causing CKD stage 3 E11.22, N18.3 Degenerative arthritis of hip M16.9 Degenerative arthritis of knee M17.10 Depressive disorder F32.9 Morbid obesity E66.01 Myalgia M79.10 ABDI (obstructive sleep apnea) G47.33 Osteoarthritis M19.90 Sensorineural hearing loss (SNHL), bilateral H90.3 Type 2 diabetes mellitus E11.9 Bowel obstruction K56.609 Dyspnea R06.00 Dyspnea (Resolved) R06.00 Edema R60.9 History of left heart catheterization Onset Date: 09/13/17 Z98.890 Pneumonia J18.9 SBO (small bowel obstruction) K56.609 Small bowel obstruction K56.609 Allergies adhesive Allergy (Verified 06/15/20 06:09) Hives cephalexin monohydrate [From Keflex] Allergy (Verified 06/15/20 06:09) Hives ciprofloxacin [From Cipro] Allergy (Verified 06/15/20 06:09) Swelling ketorolac tromethamine [From Toradol] Allergy (Verified 06/15/20 06:09) Hives nickel [Nickel] Allergy (Verified 06/15/20 06:09) Other Qwreqou-Hec-Wsf Reductase Inhibitor Adverse Reaction (Verified 06/15/20 06:09) Other paladium Allergy (Uncoded 06/04/20 14:02) Other Home Medications: Ambulatory Orders Medication Instructions Recorded Aspirin [Aspirin, Baby] 81 mg PO DAILY@0800 08/22/14 Gabapentin [Neurontin] 600 mg PO BID 08/22/14 Insulin Aspart [Novolog Flexpen] See Protocol SUBCUT 4X/DAY 04/05/18 Hydrocodone/Acetaminophen 1 tab PO BID PRN 10/25/18 [Hydrocodone-Acetamin 10-325 mg] Docusate Sodium [Colace] 100 mg PO DAILY 06/06/19 Multivit-Min/Iron/Folic Acid/K 1 ea PO DAILY 06/06/19 [Bariatric Mv-Iron 45 mg Cap] Pantoprazole Sodium [Protonix] 20 mg PO BID 06/06/19 Calcium Citrate/Vitamin D3 2 ea PO BID 07/04/19 [Citracal + D Maximum Caplet] Metoprolol Tartrate [Lopressor 25 mg PO DAILY PRN PRN 07/04/19 (beta sana)] fluticasone propionate 50 2 spray INTRANASAL DAILY PRN 07/23/19 mcg/actuation nasal spray,suspension Melatonin 10 mg PO QHS PRN 11/01/19 Duloxetine Hcl [Cymbalta] 30 mg PO BID 02/23/20 diphenhydramine HCl 25 mg tablet 25 mg PO DAILY PRN tab 06/04/20 furosemide 20 mg tablet 20 mg PO BID tab 06/04/20 insulin aspart U-100 100 unit/mL 6 unit SUBCUT LUNCH ml 06/04/20 (3 mL) subcutaneous pen insulin aspart U-100 100 unit/mL 6 unit SUBCUT QHS ml 06/04/20 (3 mL) subcutaneous pen insulin aspart U-100 100 unit/mL 9 unit SUBCUT BREAKFAST ml 06/04/20 (3 mL) subcutaneous pen insulin aspart U-100 100 unit/mL 9 unit SUBCUT DINNER ml 06/04/20 (3 mL) subcutaneous pen insulin detemir U-100 100 unit/mL 21 unit SUBCUT QHS ml 06/04/20 (3 mL) subcutaneous pen insulin detemir U-100 100 unit/mL 19 unit SC QAM ml 06/04/20 subcutaneous solution levothyroxine 150 mcg tablet 150 mcg PO .COMPLEX 06/04/20 nitroglycerin 0.4 mg sublingual 0.4 mg SUBLINGUAL Q5-15M PRN 06/04/20 tablet polyethylene glycol 3350 17 17 g PO DAILY 06/04/20 gram/dose oral powder Surgical History: Surgical History (Last Reviewed 06/15/20 @ 10:[address] Kemal Joe MD) H/O colonoscopy Z98.890 06/06/2004 H/O hernia repair Z98.890, Z87.19 x7, 09/14/2005 H/O thyroidectomy Z98.890 H/O total hysterectomy Z90.710 05/20/2001 H/O umbilical hernia repair Z98.890, Z87.19 , 2001, 2006 History of bariatric surgery Z98.84 History of bladder suspension procedure Z98.890, Z87.448 05/20/2001 History of total left knee replacement Z96.652 History of total right knee replacement Z96.651 Hx of appendectomy Z90.49 05/30/2001 Hx of cholecystectomy Z90.49 05/20/2001 Right kidney lesion removal 03/10/91 cataract lens implant akshat linares Surgical History: - - Bilateral total knee replacement, hysterectomy, hernia repair with follow-up intervention secondary to SBO, cholecystectomy, appendectomy. Psychiatric History: Anxiety, Depression [employer] History: No pertinent [employer] history Smoking Status: Former smoker - *Family History Maternal Family History: Family History (Last Reviewed 06/15/20 @ 10:[address] Kemal Joe MD) Father Myocardial infarction Mother COPD (chronic obstructive pulmonary disease) Brother AAA (abdominal aortic aneurysm) Lung cancer Pancreatitis Sister Hypertension Diabetes CAD (coronary artery disease) partial detached retina History Items: - - Patient notes a maternal family history of COPD with history of tobacco use, past age 64. Paternal Family History: Family History (Last Reviewed 06/15/20 @ 10:[address] Kemal Joe MD) Father Myocardial infarction Mother COPD (chronic obstructive pulmonary disease) Brother AAA (abdominal aortic aneurysm) Lung cancer Pancreatitis Sister Hypertension Diabetes CAD (coronary artery disease) partial detached retina History Items: - - Patient notes a paternal family history of massive [place], coronary disease, past age 61. Sibling Family History: Family History (Last Reviewed 06/15/20 @ 10:[address] Kemal Joe MD) Father Myocardial infarction Mother COPD (chronic obstructive pulmonary disease) Brother AAA (abdominal aortic aneurysm) Lung cancer Pancreatitis Sister Hypertension Diabetes CAD (coronary artery disease) partial detached retina History Items: - - Patient notes a brother with history of ruptured aortic aneurysm, past age 49 in addition to a sister with history of heart disease and diabetes. Review of Systems Constitutional: Reports: Fever. Denies: Anorexia Eyes: Denies: Drainage Cardiovascular: Denies: Chest Pain Respiratory: Denies: Cough, Shortness of Breath Gastrointestinal: Reports: Abdominal Pain. Denies: Hematemesis, Hematochezia, Nausea, Vomiting Genitourinary: Denies: Dysuria Skin: Denies: Jaundice Neurological: Denies: Balance problems Hematologic/ Lymphatic: Denies: Anemia Patient Problems: Active and Suspected Problems (Last Reviewed 06/15/20 @ 10:[address] Kemal Joe MD) Diverticulitis large intestine (Acute) - Physical Exam Vitals/I&O's: Vital Signs Temp Pulse Resp BP Pulse Ox 98.1 F 77 16 127/68 H 96 06/15/20 11:12 06/15/20 11:12 06/15/20 11:12 06/15/20 11:12 06/15/20 11:12 Oxygen Delivery Method Room Air Weight: 228 lb 2.855 oz Body Mass Index (BMI) 43.8 Finger Stick Blood Glucose 173 Intake and Output for Last 24 Hours 06/13/20 06/14/20 06/15/20 23:59 23:59 23:59 Intake Total 600 / 600 Balance 600 / 600 General: Alert, Oriented x3 Neck: No JVD Lungs: Normal air movement Cardiovascular: Regular rate, Regular Rhythm Abdomen: Soft, Non-Distended, Tender - Tender in the left lower quadrant with no crepitus Extremities: No clubbing Skin: No rashes Musculoskeletal: No Tenderness to Palpation of Joints or Extremities Neurological: Cranial nerves II-XII grossly intact Psych/Mental Status: Normal Affect Laboratory Results 06/15/20 06:20: WBC 13.5 H, RBC 3.73 L, Hgb 10.9 L, Hct 34.1 L, MCV 91.4, MCH 29.2, MCHC 32.0, RDW Std Deviation 49.6 H, RDW Coeff of Karina 14.7 H, Plt Count 208, MPV 9.6, Immature Gran % (Auto) 0.600, Neut % (Auto) 75.1 H, Lymph % (Auto) 14.9 L, [place] % (Auto) 9.1, Eos % (Auto) 0.1, Baso % (Auto) 0.2, Absolute Neuts (auto) 10.2 H, Absolute Lymphs (auto) 2.01, Nucleated RBC % 0 06/15/20 06:20: Sodium 134 L, Potassium 4.0, Chloride 100, Carbon Dioxide 28.0, Anion Gap 6, BUN 25 H, Creatinine 1.35 H, Estim Creat Clear Calc 26.66, Est GFR (MDRD) Af Amer 49 L, Est GFR (MDRD) Non-Af 41 L, BUN/Creatinine Ratio 18.5, Glucose 231 H, Calcium 9.3, Total Bilirubin 0.60, AST 16, ALT 21, Alkaline Phosphatase 76, Troponin I < 0.015, Total Protein 7.2, Albumin 3.0 L, Globulin 4.2, Albumin/Globulin Ratio 0.7 L 06/15/20 06:20: Lactic Acid 1.4 06/15/20 06:28: Urine Color Yellow, Urine Clarity Sl. Cloudy, Urine pH 5.0, Ur Specific [place] 1.015, Urine Protein 100 H, Urine Glucose (UA) Normal, Urine Ketones Negative, Urine Occult Blood 10 H, Urine Nitrite Negative, Urine Bilirubin Negative, Urine Urobilinogen Normal, Ur Leukocyte Esterase 25 H, Urine RBC 0-5 SEEN, Urine WBC 0 SEEN, Ur Squamous Epith Cells 0-5 SEEN, Amorphous Sediment 2+, Urine Bacteria 1+, Urine Mucus 0 SEEN Current Medications Acetaminophen (Tylenol) 650 mg PO Q6H PRN PRN PRN Reason: Pain Score 1-10/Temp > 100.7 F Al Hydroxide/Mg Hydroxide (Mylanta Ii) 30 ml PO Q6H PRN PRN PRN Reason: Gastric Burning Albuterol Sulfate (Ventolin Aerosols) 2.5 mg INHALATION Q2H PRN PRN PRN Reason: Shortness of Breath/Wheezing Aspirin (Aspirin, Baby) 81 mg PO DAILY@0800 [facility] Calcium/Vitamin D (Os-Scott 500mg + D) 2 tablet PO BIDCM [facility] Dextrose (D50w Syringe) 0 gm IV X1 PRN; Protocol PRN Reason: Hypoglycemia Diphenhydramine HCl (Benadryl) 25 mg PO DAILY PRN PRN Reason: ITCHING Docusate Sodium (Colace) 100 mg PO DAILY [facility] Duloxetine HCl (Cymbalta) 30 mg PO BID [facility] Enoxaparin Sodium (Lovenox) 30 mg SC DAILY [facility] Gabapentin (Neurontin) 600 mg PO BID [facility] Glucagon () 1 mg IM .X1 PRN PRN Reason: Hypoglycemia Guaifenesin (Robitussin) 20 ml PO Q4H PRN PRN PRN Reason: COUGH Potassium Chloride/Sodium Chloride () 1,000 mls @ 125 mls/hr IV .Q8H [facility] Influenza Virus Vaccine Quadrival (Flucelvax /Fluzone [id number]) 0.5 ml IM .ONCE ONE Stop: 06/16/20 10:01 Insulin Glargine (Lantus (Bkc)) 10 units SC QHS [facility] Insulin Human Lispro (Humalog Kwikpen (Bk)) 0 unit SC ACHS [facility]; Protocol Levothyroxine Sodium (Synthroid) 150 mcg PO MoTuWeThFrSa@0600 [facility] Levothyroxine Sodium (Synthroid) 225 mcg PO Rush@0600 [facility] Melatonin (Melatonin) 10 mg PO QHS [facility] Metoprolol Tartrate (Lopressor (Beta Sana)) 25 mg PO DAILY PRN PRN PRN Reason: hypertension Morphine Sulfate () 4 mg IV Q3H PRN PRN PRN Reason: Pain Score 6-10/10 Nitroglycerin (Nitrostat) 0.4 mg SUBLINGUAL Q5M PRN PRN Reason: ANGINA Ondansetron HCl (Zofran) 4 mg IV Q8H PRN PRN PRN Reason: NAUSEA/VOMITING Oxycodone HCl (Oxyir) 10 mg PO Q4H PRN PRN PRN Reason: Pain Score 4-5/10 Pantoprazole Sodium (Protonix) 20 mg PO BID RABIA Promethazine HCl (Phenergan) 25 mg IM Q6H PRN PRN PRN Reason: Breakthrough nausea/vomiting Sodium Chloride () 10 - 40 ml IV UD PRN PRN Reason: SALINE FLUSH Assessment/Plan All Active Problems (Last Reviewed 06/15/20 @ 10:[address] Kemal Joe MD) Diverticulitis large intestine (Acute) Confusion (Resolved) Dehydration (Resolved) Dyspnea (Resolved) Fever (Resolved) UTI (lower urinary tract infection) (Resolved) 75-year-old female with inflammation of the left lower quadrant 1. I am unsure the patient is really having diverticulitis. I do not see very extensive diverticulosis on her last CT from February. The patient does have inflammation in the left lower quadrant but this seems to be centered around her mesh from her hernia repair. The inflammation extends into her subcutaneous tissue in the left lower quadrant. The contrast on the CT scan did not make it to the sigmoid colon time for the scan to be obtained and she was unable to have IV contrast due to renal failure. Patient recently saw Dr. Reeves at [facility] for this concern and due to her multiple hernia repairs. 2. At this point I am unsure as to her etiology and I would recommend sips of clears as well as IV antibiotics. If things improve I would hope to discharge her on oral antibiotics and have her follow-up with her hernia specialist at [facility]. The mesh would likely need to be explanted if it is infected before she would be able to have a hip repair. Al Rose MD Pager: [facility] [address] [place] [address], [address] [place] [address] Office:
[2020-06-15] MEDS: DULoxetine Hcl 30 MG Capsule PO ×2 (14:45→22:24)
[2020-06-15] MEDS: Docusate Sodium 100 MG Capsule PO (14:45)
[2020-06-15] MEDS: Enoxaparin 30 MG/0.3 ML Syringe SC (14:46)
[2020-06-15] MEDS: Gabapentin 600 MG Tablet PO ×2 (14:47→22:24)
[2020-06-15] MEDS: Pantoprazole Sodium 20 MG Tablet PO ×2 (14:47→22:24)
[2020-06-15] MEDS: 0.9% Saline Lock 10 ML Syringe IV (14:47)
[2020-06-15] MEDS: Insulin Lispro 100 UNIT/ML INSULN.PEN SC ×2 (18:46→22:33)
[2020-06-15] MEDS: Calcium Carb/Vitamin D 1 TABLET Tablet 2 TABLET PO (18:47)
[2020-06-15 18:56] LABS: Bedside Glucose 201 mg/dL (70-110)
[2020-06-15] MEDS: Morphine 4 MG/ML Syringe IV (22:15)
[2020-06-15] MEDS: Acetaminophen 325 MG Tablet 650 MG PO (22:15)
[2020-06-15] MEDS: MELATONIN 10 MG TABLET PO (22:24)
[2020-06-16 00:05] LABS: Bedside Glucose 156 mg/dL (70-110)
[2020-06-16 04:50] VITALS: BP 129/67; PULSE 82; RESP 16; TEMP 37.7; O2SAT 96
[2020-06-16] MEDS: Acetaminophen 325 MG Tablet 650 MG PO (04:57)
[2020-06-16] MEDS: oxyCODONE 5 MG Tablet 10 MG PO ×3 (04:57→20:21)
[2020-06-16] MEDS: Levothyroxine 150 MCG Tablet PO (05:00)
[2020-06-16 05:26] LABS: Absolute Lymphocyte Count 1.84 X10^3/uL (0.83-4.51); Absolute Neutrophil Count 8.7 X10^3/uL (2.0-7.7); Basophil# 0.02 X10^3/uL; Basophil% 0.2 % (0-1); Eosinophil# 0.03 X10^3/uL; Eosinophils% 0.3 % (0-5); Hematocrit 31.4 % (37-47); Hemoglobin 9.6 g/dL (12.0-15.0); Lymphocyte # 1.84 X10^3/ul (4.0); Lymphocyte % 15.9 % (19-41); Mean Corp Hgb Conc 30.6 g/dL (32-36); Mean Corpuscular Hgb 29.2 pg (27.0-32.0); Mean Corpuscular Volume 95.4 fL (81-99); Mean Platelet Vol. 9.9 fl (6.2-12.0); Monocyte% 7.8 % (0-10); NRBC Flagged by Analyzer 0 % (0-5); Neutrophil # 8.68 X10^3/uL (2.7-7.7); Neutrophil % 75.2 % (47-70); Platelet Count 170 K/mm3 (150-450); RBC Distribution Width CV 14.8 % (11.6-14.6); RBC Distribution Width SD 51.8 fl (35.1-43.9); Red Blood Count 3.29 M/mm3 (4.2-5.4); White Blood Count 11.5 K/mm3 (4.4-11.0)
[2020-06-16 05:43] LABS: AST(SGOT) 16 U/L (15-37); Alanine Aminotransfer ALT/SGPT 18 U/L (13-56); Albumin, Serum 2.6 g/dL (3.2-5.0); Alkaline Phosphatase 67 U/L (45-117); Anion Gap 4 (5-15); BUN 18 mg/dL (7-18); BUN/Creat Ratio 15.7 RATIO (10-20); Bilirubin, Direct 0.18 mg/dL (0.00-0.30); Calcium,Total 8.4 mg/dL (8.5-10.1); Chloride 104 mmol/L (98-107); Creatinine, Serum 1.15 mg/dL (0.55-1.02); EST Glomerular Filtration Rate 49 mL/min (>60); Est Glom Filt Rate - Afr Amer 60 mL/min (>60); Estimated Creatinine Clearance 31.29 ml/min; Globulin 3.9 g/dL (2.2-4.2); Glucose 158 mg/dL (74-106); Phosphorus 2.8 mg/dL (2.5-4.9); Protein, Total 6.5 g/dL (6.4-8.2); Sodium Level 136 mmol/L (136-145)
[2020-06-16] MEDS: Insulin Lispro 100 UNIT/ML INSULN.PEN SC (06:46)
[2020-06-16 06:55] LABS: Bedside Glucose 185 mg/dL (70-110)
--- NOTE | 2020-06-16 07:22 | PN_ITS ---
Patient Problems: Active and Suspected Problems (Last Reviewed 06/15/20 @ 10:[address] Kemal Joe MD) Diverticulitis large intestine (Acute) Reason for Visit: Acute diverticulitis Subjective: Patient is a 75-year-old lady who presented with left lower quadrant abdominal pain, fever with some confusion. Imaging studies obtained on admission demonstrated severe diverticulitis involving the sigmoid colon admitted to regular nursing floor for further management 06/16/2020; patient seen has intermittent pain. Still remains febrile with T-max of 101.3. Patient was also seen in consultation by Dr. Rose with general surgery's notes and recommendations reviewed. Objective: GENERAL: cooperative HEENT: Atraumatic; EYES; Anicteric, Normal Conjunctiva NECK; supple, normal thyroid, RESPIRATORY: Diminished to auscultation CARDIOVASCULAR: Regular S1 S2, GI: Protuberant abdomen with left lower quadrant tenderness : No Renal angle tenderness; EXTREMITIES: No edema, no clubbing, MUSCULOSKELETAL: no muscle waisting NEURO: Awake; no lateralizing signs. SKIN: No Rash PSYCH; Flat affect Vitals/I&O's: Vital Signs Temp Pulse Resp BP Pulse Ox 99.8 F H 82 16 129/67 H 96 06/16/20 04:50 06/16/20 04:50 06/16/20 04:50 06/16/20 04:50 06/16/20 04:50 Oxygen Delivery Method Room Air Weight: 103.5 kg Body Mass Index (BMI) 43.8 Finger Stick Blood Glucose 173 Intake and Output for Last 24 Hours 06/14/20 06/15/20 06/16/20 23:59 23:59 23:59 Intake Total 1037.92 / 1037.92 Balance 1037.92 / 1037.92 Laboratory Results 06/15/20 18:20: POC Glucose 201 H 06/15/20 22:27: POC Glucose 156 H 06/16/20 04:50: WBC 11.5 H, RBC 3.29 L, Hgb 9.6 L, Hct 31.4 L, MCV 95.4, MCH 29.2, MCHC 30.6 L, RDW Std Deviation 51.8 H, RDW Coeff of Karina 14.8 H, Plt Count 170, MPV 9.9, Immature Gran % (Auto) 0.600, Neut % (Auto) 75.2 H, Lymph % (Auto) 15.9 L, [place] % (Auto) 7.8, Eos % (Auto) 0.3, Baso % (Auto) 0.2, Absolute Neuts (auto) 8.7 H, Absolute Lymphs (auto) 1.84, Nucleated RBC % 0 06/16/20 04:50: Sodium 136, Potassium 4.0, Chloride 104, Carbon Dioxide 28.0, Anion Gap 4 L, BUN 18, Creatinine 1.15 H, Estim Creat Clear Calc 31.29, Est GFR (MDRD) Af Amer 60, Est GFR (MDRD) Non-Af 49 L, BUN/Creatinine Ratio 15.7, Glucose 158 H, Calcium 8.4 L, Phosphorus 2.8, Magnesium 2.0, Total Bilirubin 0.50, Direct Bilirubin 0.18, AST 16, ALT 18, Alkaline Phosphatase 67, Total Pr otein 6.5, Albumin 2.6 L, Globulin 3.9 06/16/20 06:45: POC Glucose 185 H Current Medications Acetaminophen (Tylenol) 650 mg PO Q6H PRN PRN PRN Reason: Pain Score 1-10/Temp > 100.7 F Last Admin: 06/16/20 04:57 Dose: 650 mg Documented by: Al Hydroxide/Mg Hydroxide (Mylanta Ii) 30 ml PO Q6H PRN PRN PRN Reason: Gastric Burning Albuterol Sulfate (Ventolin Aerosols) 2.5 mg INHALATION Q2H PRN PRN PRN Reason: Shortness of Breath/Wheezing Aspirin (Aspirin, Baby) 81 mg PO DAILY@0800 [facility] Calcium/Vitamin D (Os-Scott 500mg + D) [facility] Last Admin: 06/15/20 18:47 Dose: 2 tablet Documented by: Dextrose (D50w Syringe) 0 gm IV X1 PRN; Protocol PRN Reason: Hypoglycemia Diphenhydramine HCl (Benadryl) 25 mg PO DAILY PRN PRN Reason: ITCHING Docusate Sodium (Colace) 100 mg PO DAILY [facility] Last Admin: 06/15/20 14:45 Dose: 100 mg Documented by: Duloxetine HCl (Cymbalta) 30 mg PO BID [facility] Last Admin: 06/15/20 22:24 Dose: 30 mg Documented by: Enoxaparin Sodium (Lovenox) 30 mg SC DAILY [facility] Last Admin: 06/15/20 14:46 Dose: 30 mg Documented by: Gabapentin (Neurontin) 600 mg PO BID [facility] Last Admin: 06/15/20 22:24 Dose: 600 mg Documented by: Glucagon () 1 mg IM .X1 PRN PRN Reason: Hypoglycemia Guaifenesin (Robitussin) 20 ml PO Q4H PRN PRN PRN Reason: COUGH Potassium Chloride/Sodium Chloride () 1,000 mls @ 125 mls/hr IV .Q8H [facility] Last Admin: 06/16/20 06:37 Dose: 125 mls/hr Documented by: Influenza Virus Vaccine Quadrival (Flucelvax /Fluzone ) 0.5 ml IM .ONCE ONE Stop: 06/16/20 10:01 Insulin Glargine (Lantus ([facility])) 10 units SC QHS [facility] Last Admin: 06/15/20 22:35 Dose: 10 u Documented by: Insulin Human Lispro (Humalog Kwikpen ([facility])) 0 unit SC [facility]; Protocol Last Admin: 06/16/20 06:46 Dose: 2 units Documented by: Levothyroxine Sodium (Synthroid) 150 mcg PO MoTuWeThFrSa@0600 [facility] Last Admin: 06/16/20 05:00 Dose: 150 mcg Documented by: Levothyroxine Sodium (Synthroid) 225 mcg PO Rush@0600 [facility] Melatonin (Melatonin) 10 mg PO QHS [facility] Last Admin: 06/15/20 22:24 Dose: 10 mg Documented by: Metoprolol Tartrate (Lopressor (Beta Sana)) 25 mg PO DAILY PRN PRN PRN Reason: hypertension Morphine Sulfate () 4 mg IV Q3H PRN PRN PRN Reason: Pain Score 6-10/10 Last Admin: 06/15/20 22:15 Dose: 4 mg Documented by: Nitroglycerin (Nitrostat) 0.4 mg SUBLINGUAL Q5M PRN PRN Reason: ANGINA Ondansetron HCl (Zofran) 4 mg IV Q8H PRN PRN PRN Reason: NAUSEA/VOMITING Oxycodone HCl (Oxyir) 10 mg PO Q4H PRN PRN PRN Reason: Pain Score 4-5/10 Last Admin: 06/16/20 04:57 Dose: 10 mg Documented by: Pantoprazole Sodium (Protonix) 20 mg PO BID RABIA Last Admin: 06/15/20 22:24 Dose: 20 mg Documented by: Promethazine HCl (Phenergan) 25 mg IM Q6H PRN PRN PRN Reason: Breakthrough nausea/vomiting Sodium Chloride () 10 - 40 ml IV UD PRN PRN Reason: SALINE FLUSH Last Admin: 06/15/20 14:47 Dose: 10 ml Documented by: STROKE Vital Signs/Narrative: Vital Signs Temp Pulse Resp BP Pulse Ox 06/16/20 04:50 99.8 F H 82 16 129/67 H 96 Medical Necessity - Tobacco Use Smoking Status: Former smoker Assessment/Plan All Active Problems (Last Reviewed 06/15/20 @ 10:[address] Kemal Joe MD) Diverticulitis large intestine (Acute) Confusion (Resolved) Dehydration (Resolved) Dyspnea (Resolved) Fever (Resolved) UTI (lower urinary tract infection) (Resolved) Patient is a 75-year-old lady who presented with left lower quadrant abdominal pain, fever with some confusion. Imaging studies obtained on admission demonstrated severe diverticulitis involving the sigmoid colon admitted to regular nursing floor for further management 1. Acute sigmoid diverticulitis ?Imaging studies demonstrated severe diverticulitis. Patient has been admitted to regular nursing floor. Was started on clear liquids, broad-spectrum antibiotic therapy with Zosyn as well as pain medication and antinausea medication. Given the severity of patient's symptoms consult was placed to general surgery - 06/16/2020; patient seen has intermittent pain. Still remains febrile with T- max of 101.3. Patient was also seen in consultation by Dr. Rose with general surgery's notes and recommendations reviewed. Rose was of the opinion patient CT findings could be secondary to interaction between the colon and the mesh. CT of the abdomen and pelvis with contrast has subsequently been ordered for 06/17/2020 for reevaluation. 2. Diabetes mellitus type II Controlled with complications including glycemia and diabetic nephropathy patient's oral hypoglycemics held,, placed on long-acting insulin in addition to on Accu-Cheks a.c. and at bedtime and covered with sliding scale insulin 3. Hypertension - Blood pressure controlled, home medications continued with dose adjustment as needed 4. Obesity with BMI of 46.0 ?Patient has history of gastric bypass 5. Congestive heart failure with preserved ejection fraction ?Patient is on Lasix which is currently being held since patient is being resuscitated with fluids for her diverticulitis 6. History of of thyroid cancer status post thyroidectomy - Patient is on levothyroxine home dose continued 7. GERD ?Patient is on PPI 8. Obstructive sleep apnea ?Patient is on BiPAP at night 9. Degenerative joint disease ?With previous history of knee replacement 10. Chronic kidney disease stage III ?secondary to diabetic nephropathy kidney function at baseline 1.35 -06/16/2020; consult placed to nephrology 11. Sensorineural hearing loss ?Patient uses hearing aids 12. History of nonalcoholic fatty liver disease ?Stable 10. DVT prophylaxis - On enoxaparin Inpatient E&M: 31389 [facility] L3
--- NOTE | 2020-06-16 07:49 | PN.SURG_ITS ---
Patient Problems: Active and Suspected Problems (Last Reviewed 06/15/20 @ 10:[address] Kemal Joe MD) Diverticulitis large intestine (Acute) Subjective: Patient reports that her pain was improved but she did have fever overnight - Physical Exam Vitals/I&O's: Vital Signs Temp Pulse Resp BP Pulse Ox 99.8 F H 82 16 129/67 H 96 06/16/20 04:50 06/16/20 04:50 06/16/20 04:50 06/16/20 04:50 06/16/20 04:50 Oxygen Delivery Method Room Air Weight: 228 lb 2.855 oz Body Mass Index (BMI) 43.8 Finger Stick Blood Glucose 173 Intake and Output for Last 24 Hours 06/14/20 06/15/20 06/16/20 23:59 23:59 23:59 Intake Total 1037.92 / 1037.92 Balance 1037.92 / 1037.92 General: Alert, Oriented x3 Lungs: Normal air movement Cardiovascular: Regular rate, Regular Rhythm Abdomen: Soft, Non-Distended, Tender - Tender in left lower quadrant with no erythema Laboratory Results 06/15/20 18:20: POC Glucose 201 H 06/15/20 22:27: POC Glucose 156 H 06/16/20 04:50: WBC 11.5 H, RBC 3.29 L, Hgb 9.6 L, Hct 31.4 L, MCV 95.4, MCH 29.2, MCHC 30.6 L, RDW Std Deviation 51.8 H, RDW Coeff of Karina 14.8 H, Plt Count 170, MPV 9.9, Immature Gran % (Auto) 0.600, Neut % (Auto) 75.2 H, Lymph % (Auto) 15.9 L, [place] % (Auto) 7.8, Eos % (Auto) 0.3, Baso % (Auto) 0.2, Absolute Neuts (auto) 8.7 H, Absolute Lymphs (auto) 1.84, Nucleated RBC % 0 06/16/20 04:50: Sodium 136, Potassium 4.0, Chloride 104, Carbon Dioxide 28.0, Anion Gap 4 L, BUN 18, Creatinine 1.15 H, Estim Creat Clear Calc 31.29, Est GFR (MDRD) Af Amer 60, Est GFR (MDRD) Non-Af 49 L, BUN/Creatinine Ratio 15.7, Glucose 158 H, Calcium 8.4 L, Phosphorus 2.8, Magnesium 2.0, Total Bilirubin 0.50, Direct Bilirubin 0.18, AST 16, ALT 18, Alkaline Phosphatase 67, Total Protein 6.5, Albumin 2.6 L, Globulin 3.9 06/16/20 06:45: POC Glucose 185 H Current Medications Acetaminophen (Tylenol) 650 mg PO Q6H PRN PRN PRN Reason: Pain Score 1-10/Temp > 100.7 F Last Admin: 06/16/20 04:57 Dose: 650 mg Documented by: Al Hydroxide/Mg Hydroxide (Mylanta Ii) 30 ml PO Q6H PRN PRN PRN Reason: Gastric Burning Albuterol Sulfate (Ventolin Aerosols) 2.5 mg INHALATION Q2H PRN PRN PRN Reason: Shortness of Breath/Wheezing Aspirin (Aspirin, Baby) 81 mg PO DAILY@0800 [facility] Calcium/Vitamin D (Os-Scott 500mg + D) 2 tablet PO BIDCM [facility] Last Admin: 06/15/20 18:47 Dose: 2 tablet Documented by: Dextrose (D50w Syringe) 0 gm IV X1 PRN; Protocol PRN Reason: Hypoglycemia Diphenhydramine HCl (Benadryl) 25 mg PO DAILY PRN PRN Reason: ITCHING Docusate Sodium (Colace) 100 mg PO DAILY [facility] Last Admin: 06/15/20 14:45 Dose: 100 mg Documented by: Duloxetine HCl (Cymbalta) 30 mg PO BID [facility] Last Admin: 06/15/20 22:24 Dose: 30 mg Documented by: Enoxaparin Sodium (Lovenox) 30 mg SC DAILY [facility] Last Admin: 06/15/20 14:46 Dose: 30 mg Documented by: Gabapentin (Neurontin) 600 mg PO BID [facility] Last Admin: 06/15/20 22:24 Dose: 600 mg Documented by: Glucagon () 1 mg IM .X1 PRN PRN Reason: Hypoglycemia Guaifenesin (Robitussin) 20 ml PO Q4H PRN PRN PRN Reason: COUGH Potassium Chloride/Sodium Chloride () 1,000 mls @ 125 mls/hr IV .Q8H [facility] Last Admin: 06/16/20 06:37 Dose: 125 mls/hr Documented by: Influenza Virus Vaccine Quadrival (Flucelvax /Fluzone ) 0.5 ml IM .ONCE ONE Stop: 06/16/20 10:01 Insulin Glargine (Lantus (Bkc)) 10 units SC QHS [facility] Last Admin: 06/15/20 22:35 Dose: 10 u Documented by: Insulin Human Lispro (Humalog Kwikpen (Bk)) 0 unit SC ACHS [facility]; Protocol Last Admin: 06/16/20 06:46 Dose: 2 units Documented by: Levothyroxine Sodium (Synthroid) 150 mcg PO MoTuWeThFrSa@0600 [facility] Last Admin: 06/16/20 05:00 Dose: 150 mcg Documented by: Levothyroxine Sodium (Synthroid) 225 mcg PO Rush@0600 [facility] Melatonin (Melatonin) 10 mg PO QHS [facility] Last Admin: 06/15/20 22:24 Dose: 10 mg Documented by: Metoprolol Tartrate (Lopressor (Beta Sana)) 25 mg PO DAILY PRN PRN PRN Reason: hypertension Morphine Sulfate () 4 mg IV Q3H PRN PRN PRN Reason: Pain Score 6-10/10 Last Admin: 06/15/20 22:15 Dose: 4 mg Documented by: Nitroglycerin (Nitrostat) 0.4 mg SUBLINGUAL Q5M PRN PRN Reason: ANGINA Ondansetron HCl (Zofran) 4 mg IV Q8H PRN PRN PRN Reason: NAUSEA/VOMITING Oxycodone HCl (Oxyir) 10 mg PO Q4H PRN PRN PRN Reason: Pain Score 4-5/10 Last Admin: 06/16/20 04:57 Dose: 10 mg Documented by: Pantoprazole Sodium (Protonix) 20 mg PO BID [facility] Last Admin: 06/15/20 22:24 Dose: 20 mg Documented by: Promethazine HCl (Phenergan) 25 mg IM Q6H PRN PRN PRN Reason: Breakthrough nausea/vomiting Sodium Chloride () 10 - 40 ml IV UD PRN PRN Reason: SALINE FLUSH Last Admin: 06/15/20 14:47 Dose: 10 ml Documented by: Medical Necessity - Tobacco Use Smoking Status: Former smoker Assessment/Plan All Active Problems (Last Reviewed 06/15/20 @ 10:[address] Kemal Joe MD) Diverticulitis large intestine (Acute) Confusion (Resolved) Dehydration (Resolved) Dyspnea (Resolved) Fever (Resolved) UTI (lower urinary tract infection) (Resolved) 75-year-old female with left lower quadrant inflammation 1. The patient has inflammation of the subcutaneous tissue and around the colon in the left lower quadrant. I am unsure if this is due to diverticulitis or interaction between the colon and the mesh. The patient's white count has slightly improved but she did have a fever over night. I recommend continuing sips and chips and IV antibiotics and rechecking labs in the morning. We may need to repeat a CT scan in the morning to see if there is any progression or change. Al Rose MD Pager: [facility] [address] [place] [address], [address] [place] [address] Office:
[2020-06-16 08:36] VITALS: BP 117/52; PULSE 67; RESP 17; TEMP 36.8; O2SAT 95
[2020-06-16] MEDS: Calcium Carb/Vitamin D 1 TABLET Tablet 2 TABLET PO ×2 (08:58→17:19)
[2020-06-16] MEDS: Aspirin 81 MG TAB.CHEW PO (08:58)
[2020-06-16] MEDS: DULoxetine Hcl 30 MG Capsule PO ×2 (08:59→21:59)
[2020-06-16] MEDS: Docusate Sodium 100 MG Capsule PO (08:59)
[2020-06-16] MEDS: Pantoprazole Sodium 20 MG Tablet PO ×2 (09:01→21:59)
[2020-06-16] MEDS: Enoxaparin 30 MG/0.3 ML Syringe SC (09:01)
[2020-06-16] MEDS: Gabapentin 600 MG Tablet PO ×2 (09:01→21:59)
[2020-06-16 13:16] LABS: Bedside Glucose 129 mg/dL (70-110)
--- NOTE | 2020-06-16 13:26 | CASEMGMT ---
This RN CM to room to complete RN CM assessment at this time and pt is sleeping without distress at this time. Pt does not awaken to verbal stimuli or knock on the door at this time. Will attempt again later. SStaten RN CM
--- NOTE | 2020-06-16 14:03 | CASEMGMT ---
CHRISTOPHER DRISCOLL assessment: Face to Face with patient for initial transition planning/care coordination assessment. CHRISTOPHER DRISCOLL introduced self and role at [facility], pt voices understanding and consents to assessment at this time. Pt is sitting up on side of bed in no distress at this time. Pt is A/Ox4 at this time and answers all questions appropriately at this time. Pt's is at bedside during assessment. Care providers, pharmacy, and demographics verified/updated at this time. Presentation: Pt w/ blood in urine/pain w/ urination-pt also having fevers/confusion Admitting dx: Severe diverticulitis PCP: Giovanni Specialists: Rajvi nephro; adan Fernandez at [facility]; Teresita, bariatric; dianne Bush-pt scheduled for total hip replacement in July Preferred Pharmacy: [facility] [place] [facility] Prescription [facility] Living Will/HPOA: Pt has a HPOA and is aware that it is on file at [facility] at this time. Pt states her , Rivera Reece, is HPOA. Pt states does not have a LW. LNOK: Rivera Reece, Living Arrangements: Pt states lives with in 1 story home with her studio in the basement and states no concerns at home at this time. Pt states assists with dressing and all housekeeping/meals and states is able to shower self. Transportation: Pt states drives self or drives and states no transportation concerns at this time. DME/HHC: Pt states has the following DME: cane, walker, BSC, shower bench, raised toilet seat, and bipap thru [employer]. Pt states no need for any further DME at this time. Pt states does not smoke cigarettes or drink ETOH. Pt states has had HHC in the past and been to SNF in [place] in the past. Pt states is currently doing aqua therapy in [place] as well. Pt states no concerns with going home at time of discharge. Pt states is retired. Pt states does not smoke cigarettes or drink ETOH. Pt states no further concerns/needs at this time. CM to follow for any further discharge planning/needs. Advised pt to ask for CM if any further questions/concerns/needs arise, voices understanding. Pt Goal: Home Plan: Home SStaten CHRISTOPHER DRISCOLL
[2020-06-16 14:39] VITALS: BP 141/56; PULSE 77; RESP 17; TEMP 37.3; O2SAT 96
--- NOTE | 2020-06-16 15:10 | CON.PCM_ITS ---
Consultation - Renal 06/16/20 PCP/ Referring MD: Requesting physician: [] Primary care physician: Dr. Jesus Davila MD Reason for Consultation:: CKD stage 3 - History of Present Illness History of Present Illness: The patient is a 75 year old obese F with CKD stage 3 baseline creatinine 1.1 to 1.2, diabetes, hypertension admitted for fever, abdominal pain with bloody stools x2. She has a history of gastric bypass, hernia repair with mesh. She was seen by her bariatric surgeon Dr. Reeves last week who recommended follow up CT for hernia. CT abdomen on admit showed possible diverticulitis vs inflammation from hernia/mesh. GS consulted. She is scheduled for hip surgery in July. Creatinine on admit 1.35 improved to 1.15 today with iv fluids. She remains NPO. Complains of abdominal distension with LLQ abdominal discomfort. Denies nausea, vomiting. Blood cx sent pending. Remains on iv antibiotics. WBC improved. - Allergies Allergies: Allergies adhesive Allergy (Verified 06/15/20 06:09) Hives cephalexin monohydrate [From Keflex] Allergy (Verified 06/15/20 06:09) Hives ciprofloxacin [From Cipro] Allergy (Verified 06/15/20 06:09) Swelling ketorolac tromethamine [From Toradol] Allergy (Verified 06/15/20 06:09) Hives nickel [Nickel] Allergy (Verified 06/15/20 06:09) Other Zciaktd-Ljl-Tyg Reductase Inhibitor Adverse Reaction (Verified 06/15/20 06:09) Other paladium Allergy (Uncoded 06/04/20 14:02) Other - Current Medications Current Medications: Current Medications Acetaminophen (Tylenol) 650 mg PO Q6H PRN PRN PRN Reason: Pain Score 1-10/Temp > 100.7 F Last Admin: 06/16/20 04:57 Dose: 650 mg Documented by: Al Hydroxide/Mg Hydroxide (Mylanta Ii) 30 ml PO Q6H PRN PRN PRN Reason: Gastric Burning Albuterol Sulfate (Ventolin Aerosols) 2.5 mg INHALATION Q2H PRN PRN PRN Reason: Shortness of Breath/Wheezing Aspirin (Aspirin, Baby) 81 mg PO DAILY@0800 [facility] Last Admin: 06/16/20 08:58 Dose: 81 mg Documented by: Calcium/Vitamin D (Os-Scott 500mg + D) [facility] Last Admin: 06/16/20 08:58 Dose: 2 tablet Documented by: Dextrose (D50w Syringe) 0 gm IV X1 PRN; Protocol PRN Reason: Hypoglycemia Diphenhydramine HCl (Benadryl) 25 mg PO DAILY PRN PRN Reason: ITCHING Docusate Sodium (Colace) 100 mg PO DAILY [facility] Last Admin: 06/16/20 08:59 Dose: 100 mg Documented by: Duloxetine HCl (Cymbalta) 30 mg PO BID [facility] Last Admin: 06/16/20 08:59 Dose: 30 mg Documented by: Enoxaparin Sodium (Lovenox) 40 mg SC DAILY [facility] Gabapentin (Neurontin) 600 mg PO BID [facility] Last Admin: 06/16/20 09:01 Dose: 600 mg Documented by: Glucagon () 1 mg IM .X1 PRN PRN Reason: Hypoglycemia Guaifenesin (Robitussin) 20 ml PO Q4H PRN PRN PRN Reason: COUGH Potassium Chloride/Sodium Chloride () 1,000 mls @ 125 mls/hr IV .Q8H [facility] Last Infusion: 06/16/20 15:01 Dose: Infused Documented by: Piperacillin Sod/Tazobactam (Sod 3.375 gm/ Sodium Chloride) 50 mls @ 12.5 mls/hr IV Q8 [facility] Insulin Glargine (Lantus (Bkc)) 10 units SC QHS [facility] Last Admin: 06/15/20 22:35 Dose: 10 u Documented by: Insulin Human Lispro (Humalog Kwikpen (Bkc)) 0 unit SC ACHS [facility]; Protocol Last Admin: 06/16/20 13:10 Dose: Not Given Documented by: Levothyroxine Sodium (Synthroid) 150 mcg PO MoTuWeThFrSa@0600 [facility] Last Admin: 06/16/20 05:00 Dose: 150 mcg Documented by: Levothyroxine Sodium (Synthroid) 225 mcg PO Rush@0600 [facility] Melatonin (Melatonin) 10 mg PO QHS [facility] Last Admin: 06/15/20 22:24 Dose: 10 mg Documented by: Metoprolol Tartrate (Lopressor (Beta Sana)) 25 mg PO DAILY PRN PRN PRN Reason: hypertension Morphine Sulfate () 4 mg IV Q3H PRN PRN PRN Reason: Pain Score 6-10/10 Last Admin: 06/15/20 22:15 Dose: 4 mg Documented by: Nitroglycerin (Nitrostat) 0.4 mg SUBLINGUAL Q5M PRN PRN Reason: ANGINA Ondansetron HCl (Zofran) 4 mg IV Q8H PRN PRN PRN Reason: NAUSEA/VOMITING Oxycodone HCl (Oxyir) 10 mg PO Q4H PRN PRN PRN Reason: Pain Score 4-5/10 Last Admin: 06/16/20 15:05 Dose: 10 mg Documented by: Pantoprazole Sodium (Protonix) 20 mg PO BID [facility] Last Admin: 06/16/20 09:01 Dose: 20 mg Documented by: Promethazine HCl (Phenergan) 25 mg IM Q6H PRN PRN PRN Reason: Breakthrough nausea/vomiting Sodium Chloride () 10 - 40 ml IV UD PRN PRN Reason: SALINE FLUSH Last Admin: 06/15/20 14:47 Dose: 10 ml Documented by: - Past Medical History Past Medical History (Chronic Problems): Chronic Problems (Last Reviewed 06/15/20 @ 10:[address] Kemal Joe MD) Nonobstructive atherosclerosis of coronary artery (Chronic) Chronic diastolic (congestive) heart failure (Chronic) Essential (primary) hypertension (Chronic) Hyperlipidemia (Chronic) History of thyroid cancer (Chronic) Pulmonary hypertension (Chronic) ABDI (obstructive sleep apnea) (Chronic) - Past Surgical History Surgical History: - - Bilateral total knee replacement, hysterectomy, hernia repair with follow-up intervention secondary to SBO, cholecystectomy, appendectomy. - Social History Smoking Status: Former smoker - Family History Maternal Family History: Family History (Last Reviewed 06/15/20 @ 10:[address] Kemal Joe MD) Father Myocardial infarction Mother COPD (chronic obstructive pulmonary disease) Brother AAA (abdominal aortic aneurysm) Lung cancer Pancreatitis Sister Hypertension Diabetes CAD (coronary artery disease) partial detached retina History Items: - - Patient notes a maternal family history of COPD with history of tobacco use, past age 64. Paternal Family History: Family History (Last Reviewed 06/15/20 @ 10:[address] Kemal Joe MD) Father Myocardial infarction Mother COPD (chronic obstructive pulmonary disease) Brother AAA (abdominal aortic aneurysm) Lung cancer Pancreatitis Sister Hypertension Diabetes CAD (coronary artery disease) partial detached retina History Items: - - Patient notes a paternal family history of massive AR, coronary disease, past age 61. Sibling Family History: Family History (Last Reviewed 06/15/20 @ 10:[address] Kemal Joe MD) Father Myocardial infarction Mother COPD (chronic obstructive pulmonary disease) Brother AAA (abdominal aortic aneurysm) Lung cancer Pancreatitis Sister Hypertension Diabetes CAD (coronary artery disease) partial detached retina History Items: - - Patient notes a brother with history of ruptured aortic aneurysm, past age 49 in addition to a sister with history of heart disease and diabetes. Review of Systems Constitutional: Reports: Anorexia, Fever, Weakness, Fatigue. Denies: Chills HEENT: Denies: Head Aches Cardiovascular: Denies: Chest Pain, Edema Gastrointestinal: Reports: Abdominal Pain - LLQ, hernia palpable LLQ, Hematochezia, - - gastric bypass, hx hernia with mesh. Denies: Nausea, Vomiting Genitourinary: Denies: Dysuria, Frequency, Hematuria Skin: Denies: Rash Neurological: Denies: Tremor Psychiatric: Reports: Anxiety, Depression Hematologic/ Lymphatic: Reports: Anemia Patient Problems: Active and Suspected Problems (Last Reviewed 06/15/20 @ 10:[address] Kemal Joe MD) Diverticulitis large intestine (Acute) - Physical Exam Vitals/I&O's: Vital Signs Temp Pulse Resp BP Pulse Ox 99.1 F 77 17 141/56 H 96 06/16/20 14:39 06/16/20 14:39 06/16/20 14:39 06/16/20 14:39 06/16/20 14:39 Oxygen Delivery Method Room Air Weight: 103.5 kg Body Mass Index (BMI) 43.8 Finger Stick Blood Glucose 173 Intake and Output for Last 24 Hours 06/14/20 06/15/20 06/16/20 23:59 23:59 23:59 Intake Total 2397.92 / 2397. Balance 2396. / 2396. General: Alert, Oriented x3, Cooperative, No apparent distress Oral: Dry Mucosa Neck: Supple Lungs: Clear to auscultation Cardiovascular: Regular rate Abdomen: Bowel Sounds Present, Distended - mild, Obese, Tender - mild LLQ, Hernia - LLQ Extremities: No edema Skin: No rashes Musculoskeletal: No Muscle Wasting Neurological: Cranial nerves II-XII grossly intact Psych/Mental Status: Normal Affect, Appropriate, Alert and oriented to time, place, person, mood and affect Microbiology Past 72 Hours 06/15/20 06:28 Urine, Catheterized Urine Culture - Preliminary Culture exhibits no growth. Laboratory Results 06/15/20 18:20: POC Glucose 201 H 06/15/20 22:27: POC Glucose 156 H 06/16/20 04:50: WBC 11.5 H, RBC 3.29 L, Hgb 9.6 L, Hct 31.4 L, MCV 95.4, MCH 29.2, MCHC 30.6 L, RDW Std Deviation 51.8 H, RDW Coeff of Karina 14.8 H, Plt Count 170, MPV 9.9, Immature Gran % (Auto) 0.600, Neut % (Auto) 75.2 H, Lymph % (Auto) 15.9 L, [place] % (Auto) 7.8, Eos % (Auto) 0.3, Baso % (Auto) 0.2, Absolute Neuts (auto) 8.7 H, Absolute Lymphs (auto) 1.84, Nucleated RBC % 0 06/16/20 04:50: Sodium 136, Potassium 4.0, Chloride 104, Carbon Dioxide 28.0, Anion Gap 4 L, BUN 18, Creatinine 1.15 H, Estim Creat Clear Calc 31.29, Est GFR (MDRD) Af Amer 60, Est GFR (MDRD) Non-Af 49 L, BUN/Creatinine Ratio 15.7, Glucose 158 H, Calcium 8.4 L, Phosphorus 2.8, Magnesium 2.0, Total Bilirubin 0.50, Direct Bilirubin 0.18, AST 16, ALT 18, Alkaline Phosphatase 67, Total Protein 6.5, Albumin 2.6 L, Globulin 3.9 06/16/20 06:45: POC Glucose 185 H 06/16/20 13:10: POC Glucose 129 H Clinical Impression(s) from Imaging Studies Brain CT 06/15/20 06:07 IMPRESSION: Normal unenhanced CT scan of the brain and without significant change when compared to 08/23/2014. Electronically Signed: Wilber Cheatham MD at 8:20 EDT , Service support , Chest X-Ray 06/15/20 06:07 IMPRESSION: 1. No acute cardiopulmonary pathology. 2. No significant interval change when compared to 04/05/2018. Electronically Signed: Wilber Cheatham MD at 8:26 EDT , Service support , Abdomen/Pelvis CT 06/15/20 06:08 Current Medications Acetaminophen (Tylenol) 650 mg PO Q6H PRN PRN PRN Reason: Pain Score 1-10/Temp > 100.7 F Last Admin: 06/16/20 04:57 Dose: 650 mg Documented by: Al Hydroxide/Mg Hydroxide (Mylanta Ii) 30 ml PO Q6H PRN PRN PRN Reason: Gastric Burning Albuterol Sulfate (Ventolin Aerosols) 2.5 mg INHALATION Q2H PRN PRN PRN Reason: Shortness of Breath/Wheezing Aspirin (Aspirin, Baby) 81 mg PO DAILY@0800 [facility] Last Admin: 06/16/20 08:58 Dose: 81 mg Documented by: Calcium/Vitamin D (Os-Scott 500mg + D) 2 tablet PO BIDCM [facility] Last Admin: 06/16/20 08:58 Dose: 2 tablet Documented by: Dextrose (D50w Syringe) 0 gm IV X1 PRN; Protocol PRN Reason: Hypoglycemia Diphenhydramine HCl (Benadryl) 25 mg PO DAILY PRN PRN Reason: ITCHING Docusate Sodium (Colace) 100 mg PO DAILY [facility] Last Admin: 06/16/20 08:59 Dose: 100 mg Documented by: Duloxetine HCl (Cymbalta) 30 mg PO BID [facility] Last Admin: 06/16/20 08:59 Dose: 30 mg Documented by: Enoxaparin Sodium (Lovenox) 40 mg SC DAILY [facility] Gabapentin (Neurontin) 600 mg PO BID [facility] Last Admin: 06/16/20 09:01 Dose: 600 mg Documented by: Glucagon () 1 mg IM .X1 PRN PRN Reason: Hypoglycemia Guaifenesin (Robitussin) 20 ml PO Q4H PRN PRN PRN Reason: COUGH Potassium Chloride/Sodium Chloride () 1,000 mls @ 125 mls/hr IV .Q8H [facility] Last Infusion: 06/16/20 15:01 Dose: Infused Documented by: Piperacillin Sod/Tazobactam (Sod 3.375 gm/ Sodium Chloride) 50 mls @ 12.5 mls/hr IV Q8 [facility] Insulin Glargine (Lantus (Bkc)) 10 units SC QHS [facility] Last Admin: 06/15/20 22:35 Dose: 10 u Documented by: Insulin Human Lispro (Humalog Kwikpen ([facility])) 0 unit SC ACHS [facility]; Protocol Last Admin: 06/16/20 13:10 Dose: Not Given Documented by: Levothyroxine Sodium (Synthroid) 150 mcg PO MoTuWeThFrSa@0600 [facility] Last Admin: 06/16/20 05:00 Dose: 150 mcg Documented by: Levothyroxine Sodium (Synthroid) 225 mcg PO Rush@0600 [facility] Melatonin (Melatonin) 10 mg PO QHS [facility] Last Admin: 06/15/20 22:24 Dose: 10 mg Documented by: Metoprolol Tartrate (Lopressor (Beta Sana)) 25 mg PO DAILY PRN PRN PRN Reason: hypertension Morphine Sulfate () 4 mg IV Q3H PRN PRN PRN Reason: Pain Score 6-10/10 Last Admin: 06/15/20 22:15 Dose: 4 mg Documented by: Nitroglycerin (Nitrostat) 0.4 mg SUBLINGUAL Q5M PRN PRN Reason: ANGINA Ondansetron HCl (Zofran) 4 mg IV Q8H PRN PRN PRN Reason: NAUSEA/VOMITING Oxycodone HCl (Oxyir) 10 mg PO Q4H PRN PRN PRN Reason: Pain Score 4-5/10 Last Admin: 06/16/20 15:05 Dose: 10 mg Documented by: Pantoprazole Sodium (Protonix) 20 mg PO BID [facility] Last Admin: 06/16/20 09:01 Dose: 20 mg Documented by: Promethazine HCl (Phenergan) 25 mg IM Q6H PRN PRN PRN Reason: Breakthrough nausea/vomiting Sodium Chloride () 10 - 40 ml IV UD PRN PRN Reason: SALINE FLUSH Last Admin: 06/15/20 14:47 Dose: 10 ml Documented by: Assessment/Plan All Active Problems (Last Reviewed 06/15/20 @ 10:[address] Kemal Joe MD) Diverticulitis large intestine (Acute) Confusion (Resolved) Dehydration (Resolved) Dyspnea (Resolved) Fever (Resolved) UTI (lower urinary tract infection) (Resolved) 1. CKD stage 3 due to hypertension, diabetes. Creatinine improved from 1.35 to 1.15 which is her baseline. Continue with iv hydration. Avoid iv contrast if possible to prevent contrast nephropathy in presence of dehydration with underlying diabetic nephropathy 2. Abdominal pain, LGI bleed hx gastric bypass, hernia with mesh with leukoc ytosis, fever improving with iv antibx. 3. Anemia monitor 4. DM2 primary service mgmt 5. HTn stable 6. obesity s/p gastric bypass
[2020-06-16] MEDS: 0.9% Saline Lock 10 ML Syringe IV (17:18)
[2020-06-16 18:06] LABS: Bedside Glucose 142 mg/dL (70-110)
[2020-06-16 20:10] VITALS: BP 110/66; PULSE 75; RESP 18; TEMP 36.6; O2SAT 94
[2020-06-16] MEDS: MELATONIN 10 MG TABLET PO (21:59)
[2020-06-16 22:16] LABS: Bedside Glucose 126 mg/dL (70-110)
[2020-06-17] VITALS (8 sets, daily range): BP systolic 111–152; BP diastolic 54–71; PULSE 62–79; RESP 16–18; TEMP 36.8–37.8; O2SAT 93–97
[2020-06-17] MEDS: Levothyroxine 150 MCG Tablet PO (05:00)
[2020-06-17 06:00] LABS: Absolute Lymphocyte Count 1.59 X10^3/uL (0.83-4.51); Absolute Neutrophil Count 6.7 X10^3/uL (2.0-7.7); Basophil# 0.03 X10^3/uL; Basophil% 0.3 % (0-1); Eosinophil# 0.09 X10^3/uL; Hematocrit 30.1 % (37-47); Hemoglobin 9.3 g/dL (12.0-15.0); Lymphocyte # 1.59 X10^3/ul (4.0); Lymphocyte % 17.4 % (19-41); Mean Corp Hgb Conc 30.9 g/dL (32-36); Mean Corpuscular Hgb 28.9 pg (27.0-32.0); Mean Corpuscular Volume 93.5 fL (81-99); Mean Platelet Vol. 9.9 fl (6.2-12.0); Monocyte# 0.62 X10^3/uL; Monocyte% 6.8 % (0-10); NRBC Flagged by Analyzer 0 % (0-5); Neutrophil # 6.74 X10^3/uL (2.7-7.7); Neutrophil % 73.6 % (47-70); Platelet Count 184 K/mm3 (150-450); RBC Distribution Width CV 14.7 % (11.6-14.6); RBC Distribution Width SD 50.9 fl (35.1-43.9); Red Blood Count 3.22 M/mm3 (4.2-5.4); White Blood Count 9.2 K/mm3 (4.4-11.0)
[2020-06-17 06:32] LABS: Anion Gap 6 (5-15); BUN 16 mg/dL (7-18); BUN/Creat Ratio 14.8 RATIO (10-20); Calcium,Total 8.2 mg/dL (8.5-10.1); Chloride 109 mmol/L (98-107); Creatinine, Serum 1.08 mg/dL (0.55-1.02); EST Glomerular Filtration Rate 53 mL/min (>60); Est Glom Filt Rate - Afr Amer 64 mL/min (>60); Estimated Creatinine Clearance 33.32 ml/min; Glucose 134 mg/dL (74-106); Potassium 4.2 mmol/L (3.5-5.1); Sodium Level 138 mmol/L (136-145)
[2020-06-17 06:55] LABS: Bedside Glucose 136 mg/dL (70-110)
--- NOTE | 2020-06-17 07:59 | PN.SURG_ITS ---
Patient Problems: Active and Suspected Problems (Last Reviewed 06/15/20 @ 10:[address] Kemal Joe MD) Diverticulitis large intestine (Acute) Subjective: Patient reports a mild improvement in her pain. No fevers overnight. - Physical Exam Vitals/I&O's: Vital Signs Temp Pulse Resp BP Pulse Ox 98.5 F 78 18 143/71 H 93 06/17/20 04:55 06/17/20 04:55 06/17/20 04:55 06/17/20 04:55 06/17/20 04:55 Oxygen Delivery Method Room Air Weight: 228 lb 2.855 oz Body Mass Index (BMI) 43.8 Finger Stick Blood Glucose 173 Intake and Output for Last 24 Hours 06/15/20 06/16/20 06/17/20 23:59 23:59 23:59 Intake Total 2697.92 / 2757.92 1075 / 1075 Output Total 600 / 600 Balance 2697.92 / 2457.92 475 / 475 General: Alert, Oriented x3 Cardiovascular: Regular rate, Regular Rhythm Abdomen: Soft, Non-Distended, Tender - Tender in the left lower quadrant Musculoskeletal: No Muscle Wasting Microbiology Past 72 Hours 06/15/20 06:28 Urine, Catheterized Urine Culture - Preliminary Culture exhibits no growth. Laboratory Results 06/16/20 13:10: POC Glucose 129 H 06/16/20 17:21: POC Glucose 142 H 06/16/20 21:57: POC Glucose 126 H 06/17/20 05:41: WBC 9.2, RBC 3.22 L, Hgb 9.3 L, Hct 30.1 L, MCV 93.5, MCH 28.9, MCHC 30.9 L, RDW Std Deviation 50.9 H, RDW Coeff of Karina 14.7 H, Plt Count 184, MPV 9.9, Immature Gran % (Auto) 0.900, Neut % (Auto) 73.6 H, Lymph % (Auto) 17.4 L, Dale % (Auto) 6.8, Eos % (Auto) 1.0, Baso % (Auto) 0.3, Absolute Neuts (auto) 6.7, Absolute Lymphs (auto) 1.59, Nucleated RBC % 0 06/17/20 05:41: Sodium 138, Potassium 4.2, Chloride 109 H, Carbon Dioxide 23.0, Anion Gap 6, BUN 16, Creatinine 1.08 H, Estim Creat Clear Calc 33.32, Est GFR (MDRD) Af Amer 64, Est GFR (MDRD) Non-Af 53 L, BUN/Creatinine Ratio 14.8, Glucose 134 H, Calcium 8.2 L 06/17/20 06:40: POC Glucose 136 H Current Medications Acetaminophen (Tylenol) 650 mg PO Q6H PRN PRN PRN Reason: Pain Score 1-10/Temp > 100.7 F Last Admin: 06/16/20 04:57 Dose: 650 mg Documented by: Al Hydroxide/Mg Hydroxide (Mylanta Ii) 30 ml PO Q6H PRN PRN PRN Reason: Gastric Burning Albuterol Sulfate (Ventolin Aerosols) 2.5 mg INHALATION Q2H PRN PRN PRN Reason: Shortness of Breath/Wheezing Aspirin (Aspirin, Baby) 81 mg PO DAILY@0800 [facility] Last Admin: 06/16/20 08:58 Dose: 81 mg Documented by: Calcium/Vitamin D (Os-Scott 500mg + D) 2 tablet PO BIDCM [facility] Last Admin: 06/16/20 17:19 Dose: 2 tablet Documented by: Dextrose (D50w Syringe) 0 gm IV X1 PRN; Protocol PRN Reason: Hypoglycemia Diphenhydramine HCl (Benadryl) 25 mg PO DAILY PRN PRN Reason: ITCHING Docusate Sodium (Colace) 100 mg PO DAILY [facility] Last Admin: 06/16/20 08:59 Dose: 100 mg Documented by: Duloxetine HCl (Cymbalta) 30 mg PO BID [facility] Last Admin: 06/16/20 21:59 Dose: 30 mg Documented by: Enoxaparin Sodium (Lovenox) 40 mg SC DAILY [facility] Gabapentin (Neurontin) 600 mg PO BID [facility] Last Admin: 06/16/20 21:59 Dose: 600 mg Documented by: Glucagon () 1 mg IM .X1 PRN PRN Reason: Hypoglycemia Guaifenesin (Robitussin) 20 ml PO Q4H PRN PRN PRN Reason: COUGH Potassium Chloride/Sodium Chloride () 1,000 mls @ 125 mls/hr IV .Q8H [facility] Last Admin: 06/17/20 00:51 Dose: 125 mls/hr Documented by: Piperacillin Sod/Tazobactam (Sod 3.375 gm/ Sodium Chloride) 50 mls @ 12.5 mls/hr IV Q8 [facility] Last Admin: 06/17/20 05:00 Dose: 12.5 mls/hr Documented by: Insulin Glargine (Lantus ([facility])) 10 units SC QHS [facility] Last Admin: 06/16/20 22:05 Dose: 10 u Documented by: Insulin Human Lispro (Humalog Kwikpen ([facility])) 0 unit SC ACHS [facility]; Protocol Last Admin: 06/17/20 06:41 Dose: Not Given Documented by: Levothyroxine Sodium (Synthroid) 150 mcg PO MoTuWeThFrSa@0600 [facility] Last Admin: 06/17/20 05:00 Dose: 150 mcg Documented by: Levothyroxine Sodium (Synthroid) 225 mcg PO Rush@0600 [facility] Melatonin (Melatonin) 10 mg PO QHS [facility] Last Admin: 06/16/20 21:59 Dose: 10 mg Documented by: Metoprolol Tartrate (Lopressor (Beta Sana)) 25 mg PO DAILY PRN PRN PRN Reason: hypertension Morphine Sulfate () 4 mg IV Q3H PRN PRN PRN Reason: Pain Score 6-10/10 Last Admin: 06/15/20 22:15 Dose: 4 mg Documented by: Nitroglycerin (Nitrostat) 0.4 mg SUBLINGUAL Q5M PRN PRN Reason: ANGINA Ondansetron HCl (Zofran) 4 mg IV Q8H PRN PRN PRN Reason: NAUSEA/VOMITING Oxycodone HCl (Oxyir) 10 mg PO Q4H PRN PRN PRN Reason: Pain Score 4-5/10 Last Admin: 06/16/20 20:21 Dose: 10 mg Documented by: Pantoprazole Sodium (Protonix) 20 mg PO BID [facility] Last Admin: 06/16/20 21:59 Dose: 20 mg Documented by: Promethazine HCl (Phenergan) 25 mg IM Q6H PRN PRN PRN Reason: Breakthrough nausea/vomiting Sodium Chloride () 10 - 40 ml IV UD PRN PRN Reason: SALINE FLUSH Last Admin: 06/16/20 17:18 Dose: 10 ml Documented by: Medical Necessity - Tobacco Use Smoking Status: Former smoker Assessment/Plan All Active Problems (Last Reviewed 06/15/20 @ 10:[address] Kemal Joe MD) Diverticulitis large intestine (Acute) Confusion (Resolved) Dehydration (Resolved) Dyspnea (Resolved) Fever (Resolved) UTI (lower urinary tract infection) (Resolved) 75-year-old female with inflammation in the left lower quadrant 1. Still unsure as to if this is diverticulitis or if it is involving the mesh. Obtaining a repeat CT scan with IV and p.o. contrast today. White count has returned to normal on antibiotics. 2. I did discuss with her that if this did involve the mesh I would recommend that she return to her doctor at the [facility] for definitive treatment. I believe she is improving and would be able to be discharged home on oral antibiotics to follow-up with [facility] would not necessarily need transfer. Al Rose MD Pager: [facility] [address] [place] [address], [address] [place] [address] Office:
--- NOTE | 2020-06-17 08:30 | CT_ITS ---
STUDY: CT ABDOMEN AND PELVIS WITH CONTRAST REASON FOR EXAM: Female, 75 years old. DIVERTICULITIS. HX OF GASTRIC BYPASS, THYROID CA, HTN, DM RADIATION DOSAGE (If Supplied By Facility): CTDIvol = ( 17 ) mGy, DLP = ( 1181.78 ) mGycm TECHNIQUE: Transaxial images were obtained from the dome of the diaphragm to the symphysis pubis without oral contrast. Oral and amp; IV Gastrografin and amp; 100mL Isovue-300 was administered. Sagittal and coronal images were reconstructed. Individualized dose optimization techniques were used for this CT. COMPARISON: None. FINDINGS: The visualized lung bases are unremarkable. The visualized portions of the heart are within normal limits. There is a cyst in the segment #forearm the liver measures 2 cm. There are surgical clips in the gallbladder fossa consistent with a prior cholecystectomy. Normal spleen. Normal pancreas. Normal bilateral adrenal glands. Ovarian cysts are noted the largest measures 2 cm. There is no hydronephrosis. There is fat-containing mass in the lower part of the right kidney consistent with angiomyolipoma measuring 1.8 cm it has no clinical significance Normal visualized stomach. Normal small intestine. Normal colon. There is non-visualization of the appendix. Normal abdominal aorta. Normal inferior vena cava. Normal retroperitoneum. Normal urinary bladder. Normal postsurgical changes are noted in the anterior abdominal wall. There is a surgical mesh. Air bubbles are seen in the lower anterior abdominal wall may represent an infectious process. There is subcutaneous fat stranding in the lower abdominal wall suggesting cellulitis. There are diffuse degenerative changes of the visualized lumbar spine. There is chronic bilateral pars defect of L5 with grade 1 spinal listhesis at L5-S1. CT/Abdomen/Pelvis WITH Contrast IMPRESSION: There is a surgical mesh. Few small air bubbles are seen in the lower anterior abdominal wall may represent an infectious process. There is subcutaneous fat stranding in the lower abdominal wall suggesting cellulitis. Electronically Signed: Joanna Riojas, at 11:20 EDT Tel , Service support ,
[2020-06-17] MEDS: Aspirin 81 MG TAB.CHEW PO (08:51)
[2020-06-17] MEDS: Calcium Carb/Vitamin D 1 TABLET Tablet 2 TABLET PO ×2 (08:51→17:16)
[2020-06-17] MEDS: Acetaminophen 325 MG Tablet 650 MG PO (08:51)
[2020-06-17] MEDS: Enoxaparin 40 MG/0.4 ML Syringe SC (08:52)
[2020-06-17] MEDS: Pantoprazole Sodium 20 MG Tablet PO ×2 (08:52→22:07)
[2020-06-17] MEDS: DULoxetine Hcl 30 MG Capsule PO ×2 (08:52→22:07)
[2020-06-17] MEDS: Docusate Sodium 100 MG Capsule PO (08:52)
[2020-06-17] MEDS: Gabapentin 600 MG Tablet PO ×2 (08:52→22:07)
--- NOTE | 2020-06-17 10:00 | PN_ITS ---
Patient Problems: Active and Suspected Problems (Last Reviewed 06/15/20 @ 10:[address] Kemal Joe MD) Diverticulitis large intestine (Acute) Reason for Visit: Acute diverticulitis ?Suspected abdominal wall mesh infection Subjective: Patient seen remains afebrile for the past 24 hours. WBC count trending down. Kidney function remains relatively stable. Patient underwent repeat evaluation of her abdominal pathology (acute sigmoid diverticulitis versus abdominal wall mesh infection) with CT of the abdomen. Will await results prior to making any further therapeutic decisions Objective: GENERAL: cooperative HEENT: Atraumatic; EYES; Anicteric, Normal Conjunctiva NECK; supple, normal thyroid, RESPIRATORY: Diminished to auscultation CARDIOVASCULAR: Regular S1 S2, GI: Protuberant abdomen with left lower quadrant tenderness : No Renal angle tenderness; EXTREMITIES: No edema, no clubbing, MUSCULOSKELETAL: no muscle waisting NEURO: Awake; no lateralizing signs. SKIN: No Rash PSYCH; Flat affect Vitals/I&O's: Vital Signs Temp Pulse Resp BP Pulse Ox 98.4 F 79 17 152/63 H 94 06/17/20 08:01 06/17/20 08:01 06/17/20 08:01 06/17/20 08:01 06/17/20 08:11 Oxygen Delivery Method Room Air Weight: 103.5 kg Body Mass Index (BMI) 43.8 Finger Stick Blood Glucose 173 Intake and Output for Last 24 Hours 06/15/20 06/16/20 06/17/20 23:59 23:59 23:59 Intake Total 2697.92 / 2757.92 2125 / 2125 Output Total 600 / 600 Balance 2697.92 / 2457.92 1525 / 1525 Microbiology Past 72 Hours 06/15/20 06:28 Urine, Catheterized Urine Culture - Final Culture exhibits no growth. 06/15/20 06:20 Blood Culture (Wb) - Right Hand Blood Culture - Preliminary No growth in 48 hours. 06/15/20 06:20 Blood Culture (Wb) - Anticubital Left Blood Culture - Preliminary No growth in 48 hours. Laboratory Results 06/16/20 13:10: POC Glucose 129 H 06/16/20 17:21: POC Glucose 142 H 06/16/20 21:57: POC Glucose 126 H 06/17/20 05:41: WBC 9.2, RBC 3.22 L, Hgb 9.3 L, Hct 30.1 L, MCV 93.5, MCH 28.9, MCHC 30.9 L, RDW Std Deviation 50.9 H, RDW Coeff of Karina 14.7 H, Plt Count 184, M PV 9.9, Immature Gran % (Auto) 0.900, Neut % (Auto) 73.6 H, Lymph % (Auto) 17.4 L, Cowley % (Auto) 6.8, Eos % (Auto) 1.0, Baso % (Auto) 0.3, Absolute Neuts (auto) 6.7, Absolute Lymphs (auto) 1.59, Nucleated RBC % 0 06/17/20 05:41: Sodium 138, Potassium 4.2, Chloride 109 H, Carbon Dioxide 23.0, Anion Gap 6, BUN 16, Creatinine 1.08 H, Estim Creat Clear Calc 33.32, Est GFR (MDRD) Af Amer 64, Est GFR (MDRD) Non-Af 53 L, BUN/Creatinine Ratio 14.8, Glucose 134 H, Calcium 8.2 L 06/17/20 06:40: POC Glucose 136 H Current Medications Acetaminophen (Tylenol) 650 mg PO Q6H PRN PRN PRN Reason: Pain Score 1-10/Temp > 100.7 F Last Admin: 06/17/20 08:51 Dose: 650 mg Documented by: Al Hydroxide/Mg Hydroxide (Mylanta Ii) 30 ml PO Q6H PRN PRN PRN Reason: Gastric Burning Albuterol Sulfate (Ventolin Aerosols) 2.5 mg INHALATION Q2H PRN PRN PRN Reason: Shortness of Breath/Wheezing Aspirin (Aspirin, Baby) 81 mg PO DAILY@0800 [facility] Last Admin: 06/17/20 08:51 Dose: 81 mg Documented by: Calcium/Vitamin D (Os-Scott 500mg + D) 2 tablet PO BIDCM [facility] Last Admin: 06/17/20 08:51 Dose: 2 tablet Documented by: Dextrose (D50w Syringe) 0 gm IV X1 PRN; Protocol PRN Reason: Hypoglycemia Diphenhydramine HCl (Benadryl) 25 mg PO DAILY PRN PRN Reason: ITCHING Docusate Sodium (Colace) 100 mg PO DAILY [facility] Last Admin: 06/17/20 08:52 Dose: 100 mg Documented by: Duloxetine HCl (Cymbalta) 30 mg PO BID [facility] Last Admin: 06/17/20 08:52 Dose: 30 mg Documented by: Enoxaparin Sodium (Lovenox) 40 mg SC DAILY [facility] Last Admin: 06/17/20 08:52 Dose: 40 mg Documented by: Gabapentin (Neurontin) 600 mg PO BID [facility] Last Admin: 06/17/20 08:52 Dose: 600 mg Documented by: Glucagon () 1 mg IM .X1 PRN PRN Reason: Hypoglycemia Guaifenesin (Robitussin) 20 ml PO Q4H PRN PRN PRN Reason: COUGH Potassium Chloride/Sodium Chloride () 1,000 mls @ 125 mls/hr IV .Q8H [facility] Last Admin: 06/17/20 08:58 Dose: 125 mls/hr Documented by: Piperacillin Sod/Tazobactam (Sod 3.375 gm/ Sodium Chloride) 50 mls @ 12.5 mls/hr IV Q8 [facility] Last Infusion: 06/17/20 09:00 Dose: Infused Documented by: Insulin Glargine (Lantus (Bk)) 10 units SC QHS [facility] Last Admin: 06/16/20 22:05 Dose: 10 u Documented by: Insulin Human Lispro (Humalog Kwikpen (Bk)) 0 unit SC [facility]; Protocol Last Admin: 06/17/20 06:41 Dose: Not Given Documented by: Levothyroxine Sodium (Synthroid) 150 mcg PO MoTuWeThFrSa@0600 [facility] Last Admin: 06/17/20 05:00 Dose: 150 mcg Documented by: Levothyroxine Sodium (Synthroid) 225 mcg PO Rush@0600 [facility] Melatonin (Melatonin) 10 mg PO QHS [facility] Last Admin: 06/16/20 21:59 Dose: 10 mg Documented by: Metoprolol Tartrate (Lopressor (Beta Sana)) 25 mg PO DAILY PRN PRN PRN Reason: hypertension Morphine Sulfate () 4 mg IV Q3H PRN PRN PRN Reason: Pain Score 6-10/10 Last Admin: 06/15/20 22:15 Dose: 4 mg Documented by: Nitroglycerin (Nitrostat) 0.4 mg SUBLINGUAL Q5M PRN PRN Reason: ANGINA Ondansetron HCl (Zofran) 4 mg IV Q8H PRN PRN PRN Reason: NAUSEA/VOMITING Oxycodone HCl (Oxyir) 10 mg PO Q4H PRN PRN PRN Reason: Pain Score 4-5/10 Last Admin: 06/16/20 20:21 Dose: 10 mg Documented by: Pantoprazole Sodium (Protonix) 20 mg PO BID [facility] Last Admin: 06/17/20 08:52 Dose: 20 mg Documented by: Promethazine HCl (Phenergan) 25 mg IM Q6H PRN PRN PRN Reason: Breakthrough nausea/vomiting Sodium Chloride () 10 - 40 ml IV UD PRN PRN Reason: SALINE FLUSH Last Admin: 06/16/20 17:18 Dose: 10 ml Documented by: STROKE Vital Signs/Narrative: Vital Signs Temp Pulse Resp BP Pulse Ox 06/17/20 08:11 94 06/17/20 08:01 98.4 F 79 17 152/63 H 94 Medical Necessity - Tobacco Use Smoking Status: Former smoker Assessment/Plan All Active Problems (Last Reviewed 06/15/20 @ 10:[address] Kemal Joe MD) Diverticulitis large intestine (Acute) Confusion (Resolved) Dehydration (Resolved) Dyspnea (Resolved) Fever (Resolved) UTI (lower urinary tract infection) (Resolved) Patient is a 75-year-old lady who presented with left lower quadrant abdominal pain, fever with some confusion. Imaging studies obtained on admission demonstrated severe diverticulitis involving the sigmoid colon admitted to regular nursing floor for further management 1. Acute sigmoid diverticulitis ?Imaging studies demonstrated severe diverticulitis. Patient has been admitted to regular nursing floor. Was started on clear liquids, broad-spectrum antibiotic therapy with Zosyn as well as pain medication and antinausea medication. Given the severity of patient's symptoms consult was placed to general surgery - 06/16/2020; patient seen has intermittent pain. Still remains febrile with T-max of 101.3. Patient was also seen in consultation by Dr. Rose with general surgery's notes and recommendations reviewed. Rose was of the opinion patient CT findings could be secondary to interaction between the colon and the mesh. CT of the abdomen and pelvis with contrast has subsequently been ordered for 06/17/2020 for reevaluation. -06/17/2020 patient seen remains afebrile for the past 24 hours. WBC count trending down. Kidney function remains relatively stable. Patient underwent repeat evaluation of her abdominal pathology (acute sigmoid diverticulitis versus abdominal wall mesh infection) with CT of the abdomen. Will await results prior to making any further therapeutic decisions 2. Diabetes mellitus type II Controlled with complications including glycemia and diabetic nephropathy patient's oral hypoglycemics held,, placed on long-acting insulin in addition to on Accu-Cheks a.c. and at bedtime and covered with sliding scale insulin 3. Hypertension - Blood pressure controlled, home medications continued with dose adjustment as needed 4. Obesity with BMI of 46.0 ?Patient has history of gastric bypass 5. Congestive heart failure with preserved ejection fraction ?Patient is on Lasix which is currently being held since patient is being resuscitated with fluids for her diverticulitis 6. History of of thyroid cancer status post thyroidectomy - Patient is on levothyroxine home dose continued 7. GERD ?Patient is on PPI 8. Obstructive sleep apnea ?Patient is on BiPAP at night 9. Degenerative joint disease ?With previous history of knee replacement 10. Chronic kidney disease stage III ?secondary to diabetic nephropathy kidney function at baseline 1.35 -06/16/2020; consult placed to nephrology 11. Sensorineural hearing loss ?Patient uses hearing aids 12. History of nonalcoholic fatty liver disease ?Stable 10. DVT prophylaxis - On enoxaparin Inpatient E&M: 81251 Subs Hosp L2
[2020-06-17 11:20] LABS: Bedside Glucose 140 mg/dL (70-110)
[2020-06-17] MEDS: oxyCODONE 5 MG Tablet 10 MG PO ×2 (14:49→20:17)
--- NOTE | 2020-06-17 15:04 | PCM.PN.REN ---
Patient Problems: Active and Suspected Problems (Last Reviewed 06/15/20 @ 10:[address] Kemal Joe MD) Diverticulitis large intestine (Acute) Subjective: feeling better, remains NPO. Renal fxn stable. Distended, on pain medications - Physical Exam Vitals/I&O's: Vital Signs Temp Pulse Resp BP Pulse Ox 98.4 F 79 17 152/63 H 94 06/17/20 08:01 06/17/20 08:01 06/17/20 08:01 06/17/20 08:01 06/17/20 08:11 Oxygen Delivery Method Room Air Weight: 103.5 kg Body Mass Index (BMI) 43.8 Finger Stick Blood Glucose 173 Intake and Output for Last 24 Hours 06/15/20 06/16/20 06/17/20 23:59 23:59 23:59 Intake Total 2697.92 / 2757.92 2125 / 2125 Output Total 600 / 600 Balance 2697.92 / 2457.92 1525 / 1525 General: Alert, Oriented x3, Cooperative Neck: Supple Lungs: Clear to auscultation Abdomen: Bowel Sounds Present, Soft, Distended, Obese Extremities: No edema Microbiology Past 72 Hours 06/15/20 06:28 Urine, Catheterized Urine Culture - Final Culture exhibits no growth. 06/15/20 06:20 Blood Culture (Wb) - Right Hand Blood Culture - Preliminary No growth in 48 hours. 06/15/20 06:20 Blood Culture (Wb) - Anticubital Left Blood Culture - Preliminary No growth in 48 hours. Laboratory Results 06/16/20 17:21: POC Glucose 142 H 06/16/20 21:57: POC Glucose 126 H 06/17/20 05:41: WBC 9.2, RBC 3.22 L, Hgb 9.3 L, Hct 30.1 L, MCV 93.5, MCH 28.9, MCHC 30.9 L, RDW Std Deviation 50.9 H, RDW Coeff of Karina 14.7 H, Plt Count 184, MPV 9.9, Immature Gran % (Auto) 0.900, Neut % (Auto) 73.6 H, Lymph % (Auto) 17.4 L, [place] % (Auto) 6.8, Eos % (Auto) 1.0, Baso % (Auto) 0.3, Absolute Neuts (auto) 6.7, Absolute Lymphs (auto) 1.59, Nucleated RBC % 0 06/17/20 05:41: Sodium 138, Potassium 4.2, Chloride 109 H, Carbon Dioxide 23.0, Anion Gap 6, BUN 16, Creatinine 1.08 H, Estim Creat Clear Calc 33.32, Est GFR (MDRD) Af Amer 64, Est GFR (MDRD) Non-Af 53 L, BUN/Creatinine Ratio 14.8, Glucose 134 H, Calcium 8.2 L 06/17/20 06:40: POC Glucose 136 H 06/17/20 11:16: POC Glucose 140 H Current Medications Acetaminophen (Tylenol) 650 mg PO Q6H PRN PRN PRN Reason: Pain Score 1-10/Temp > 100.7 F Last Admin: 06/17/20 08:51 Dose: 650 mg Documented by: Al Hydroxide/Mg Hydroxide (Mylanta Ii) 30 ml PO Q6H PRN PRN PRN Reason: Gastric Burning Albuterol Sulfate (Ventolin Aerosols) 2.5 mg INHALATION Q2H PRN PRN PRN Reason: Shortness of Breath/Wheezing Aspirin (Aspirin, Baby) 81 mg PO DAILY@0800 [facility] Last Admin: 06/17/20 08:51 Dose: 81 mg Documented by: Calcium/Vitamin D (Os-Scott 500mg + D) [facility] Last Admin: 06/17/20 08:51 Dose: 2 tablet Documented by: Dextrose (D50w Syringe) 0 gm IV X1 PRN; Protocol PRN Reason: Hypoglycemia Diphenhydramine HCl (Benadryl) 25 mg PO DAILY PRN PRN Reason: ITCHING Docusate Sodium (Colace) 100 mg PO DAILY [facility] Last Admin: 06/17/20 08:52 Dose: 100 mg Documented by: Duloxetine HCl (Cymbalta) 30 mg PO BID [facility] Last Admin: 06/17/20 08:52 Dose: 30 mg Documented by: Enoxaparin Sodium (Lovenox) 40 mg SC DAILY [facility] Last Admin: 06/17/20 08:52 Dose: 40 mg Documented by: Gabapentin (Neurontin) 600 mg PO BID [facility] Last Admin: 06/17/20 08:52 Dose: 600 mg Documented by: Glucagon () 1 mg IM .X1 PRN PRN Reason: Hypoglycemia Guaifenesin (Robitussin) 20 ml PO Q4H PRN PRN PRN Reason: COUGH Potassium Chloride/Sodium Chloride () 1,000 mls @ 125 mls/hr IV .Q8H [facility] Last Admin: 06/17/20 10:55 Dose: Not Given Documented by: Piperacillin Sod/Tazobactam (Sod 3.375 gm/ Sodium Chloride) 50 mls @ 12.5 mls/hr IV Q8 [facility] Last Admin: 06/17/20 14:49 Dose: 12.5 mls/hr Documented by: Insulin Glargine (Lantus ([facility])) 10 units SC QHS [facility] Last Admin: 06/16/20 22:05 Dose: 10 u Documented by: Insulin Human Lispro (Humalog Kwikpen ([facility])) [facility]; Protocol Last Admin: 06/17/20 11:19 Dose: Not Given Documented by: Levothyroxine Sodium (Synthroid) 150 mcg PO MoTuWeThFrSa@0600 [facility] Last Admin: 06/17/20 05:00 Dose: 150 mcg Documented by: Levothyroxine Sodium (Synthroid) 225 mcg PO Rush@0600 [facility] Melatonin (Melatonin) 10 mg PO QHS [facility] Last Admin: 06/16/20 21:59 Dose: 10 mg Documented by: Metoprolol Tartrate (Lopressor (Beta Sana)) 25 mg PO DAILY PRN PRN PRN Reason: hypertension Morphine Sulfate () 4 mg IV Q3H PRN PRN PRN Reason: Pain Score 6-10 Last Admin: 06/15/20 22:15 Dose: 4 mg Documented by: Nitroglycerin (Nitrostat) 0.4 mg SUBLINGUAL Q5M PRN PRN Reason: ANGINA Ondansetron HCl (Zofran) 4 mg IV Q8H PRN PRN PRN Reason: NAUSEA/VOMITING Oxycodone HCl (Oxyir) 10 mg PO Q4H PRN PRN PRN Reason: Pain Score 4-5/10 Last Admin: 06/17/20 14:49 Dose: 10 mg Documented by: Pantoprazole Sodium (Protonix) 20 mg PO BID [facility] Last Admin: 06/17/20 08:52 Dose: 20 mg Documented by: Promethazine HCl (Phenergan) 25 mg IM Q6H PRN PRN PRN Reason: Breakthrough nausea/vomiting Sodium Chloride () 10 - 40 ml IV UD PRN PRN Reason: SALINE FLUSH Last Admin: 06/16/20 17:18 Dose: 10 ml Documented by: Medical Necessity - Tobacco Use Smoking Status: Former smoker Assessment/Plan All Active Problems (Last Reviewed 06/15/20 @ 10:[address] Kemal Joe MD) Diverticulitis large intestine (Acute) Confusion (Resolved) Dehydration (Resolved) Dyspnea (Resolved) Fever (Resolved) UTI (lower urinary tract infection) (Resolved) 1. CKD stage 3 due to hypertension, diabetes. Creatinine improved to 1.08. Continue iv fluids while NPO 2. Abdominal pain, LGI bleed hx gastric bypass, hernia with mesh with leukocytosis, fever improving with iv antibx. 3. Anemia monitor 4. DM2 primary service mgmt 5. HTn stable 6. obesity s/p gastric bypass
--- NOTE | 2020-06-17 15:09 | DCINST_ITS ---
- Discharge Diagnoses Current Active Problems: Current Active and Chronic Problems (Last Reviewed 06/15/20 @ 10:[address] Kemal Joe MD) Diverticulitis large intestine (Acute) You will use the following diet at home:: Calorie/Carbohydrate Controlled (specify 1200, 1400, etc) - 1800 Allergies/Adverse Reactions: Allergies adhesive Allergy (Verified 06/15/20 06:09) Hives cephalexin monohydrate [From Keflex] Allergy (Verified 06/15/20 06:09) Hives ciprofloxacin [From Cipro] Allergy (Verified 06/15/20 06:09) Swelling ketorolac tromethamine [From Toradol] Allergy (Verified 06/15/20 06:09) Hives nickel [Nickel] Allergy (Verified 06/15/20 06:09) Other Neevvey-Zet-Ygs Reductase Inhibitor Adverse Reaction (Verified 06/15/20 06:09) Other paladium Allergy (Uncoded 06/04/20 14:02) Other Medications to take at Discharge Aspirin [Aspirin, Baby] 81 mg PO DAILY@0800 08/22/14 Gabapentin [Neurontin] 600 mg PO BID 08/22/14 Insulin Aspart [Novolog Flexpen] See Protocol SUBCUT 4X/DAY 04/05/18 Hydrocodone/Acetaminophen [Hydrocodone-Acetamin 10-325 mg] 1 tab PO BID PRN 10/25/18 Docusate Sodium [Colace] 100 mg PO DAILY 06/06/19 Multivit-Min/Iron/Folic Acid/K [Bariatric Mv-Iron 45 mg Cap] 1 ea PO DAILY 06/06/19 Pantoprazole Sodium [Protonix] 20 mg PO BID 06/06/19 Calcium Citrate/Vitamin D3 [Citracal + D Maximum Caplet] 2 ea PO BID 07/04/19 Metoprolol Tartrate [Lopressor (beta laura)] 25 mg PO DAILY PRN PRN 07/04/19 fluticasone propionate 50 mcg/actuation nasal spray,suspension 2 spray INTRANASAL DAILY PRN 07/23/19 Melatonin 10 mg PO QHS PRN 11/01/19 Duloxetine Hcl [Cymbalta] 30 mg PO BID 02/23/20 diphenhydramine HCl 25 mg tablet 25 mg PO DAILY PRN tab 06/04/20 furosemide 20 mg tablet 20 mg PO BID tab 06/04/20 insulin aspart U-100 100 unit/mL (3 mL) subcutaneous pen 6 unit SUBCUT LUNCH ml 06/04/20 insulin aspart U-100 100 unit/mL (3 mL) subcutaneous pen 6 unit SUBCUT QHS ml 06/04/20 insulin aspart U-100 100 unit/mL (3 mL) subcutaneous pen 9 unit SUBCUT BREAKFAST ml 06/04/20 insulin aspart U-100 100 unit/mL (3 mL) subcutaneous pen 9 unit SUBCUT DINNER ml 06/04/20 insulin detemir U-100 100 unit/mL (3 mL) subcutaneous pen 21 unit SUBCUT QHS ml 06/04/20 insulin detemir U-100 100 unit/mL subcutaneous solution 19 unit SC QAM ml 06/04/20 levothyroxine 150 mcg tablet 150 mcg PO .COMPLEX 06/04/20 nitroglycerin 0.4 mg sublingual tablet 0.4 mg SUBLINGUAL Q5-15M PRN 06/04/20 polyethylene glycol 3350 17 gram/dose oral powder 17 g PO DAILY 06/04/20 Piperacil/Tazobactam [Zosyn] 3.375 gm IV Q8 vial 06/17/20 Primary Care Physician: Jesus Davila MD [Primary Care Provider] - Test Results: Test results from this visit will be discussed in further detail at your follow- up appointment, if applicable. Please Follow Up With: Jesus Davila MD Proposed Discharge Date: 06/17/20
--- NOTE | 2020-06-17 15:09 | PCM.DC.SUM ---
Discharge Date and Diagnosis - Problem List Patient Problems: Active and Suspected Problems (Last Reviewed 06/15/20 @ 10:[address] Kemal Joe MD) Diverticulitis large intestine (Acute) Date of Admission: 06/15/20 Date of Discharge: 06/17/20 - Primary Discharge Diagnosis Acute Problems: Active Problems (Last Reviewed 06/15/20 @ 10:[address] Kemal Joe MD) Diverticulitis large intestine (Acute) - Secondary Discharge Diagnosis Chronic Problems: Chronic Problems (Last Reviewed 06/15/20 @ 10:[address] Kemal Joe MD) Nonobstructive atherosclerosis of coronary artery (Chronic) Chronic diastolic (congestive) heart failure (Chronic) Essential (primary) hypertension (Chronic) Hyperlipidemia (Chronic) History of thyroid cancer (Chronic) Pulmonary hypertension (Chronic) ABDI (obstructive sleep apnea) (Chronic) Hospital Course and Treatment Imaging Results: 06/17/20 08:30 CT Abd [Abdomen/Pelvis WITH Contrast] [CT] AM (NON MEDS) Operations: None Summary of Care Provided: Patient is a 75-year-old lady who presented with left lower quadrant abdominal pain, fever with some confusion. Imaging studies obtained on admission demonstrated severe diverticulitis involving the sigmoid colon admitted to regular nursing floor for further management 1. Abdominal pain secondary to anterior abdominal wall mesh infection ?Initial imaging studies suggested severe diverticulitis General surgery was consulted as a result. Patient was seen by Dr. Rose who felt patient presentation was more consistent with abdominal wall mesh infection. This was confirmed with patient repeat CAT scan performed on 06/17/2020 There is a surgical mesh. Few small air bubbles are seen in the lower anterior abdominal wall may represent an infectious process. There is subcutaneous fat stranding in the lower abdominal wall suggesting cellulitis. Based on above findings call was placed to [facility] patient transferred to be evaluated by her surgeon Dr. Tim Reeves 2. Diabetes mellitus type II Controlled with complications including glycemia and diabetic nephropathy patient's oral hypoglycemics held,, placed on long-acting insulin in addition to on Accu-Cheks a.c. and at bedtime and covered with sliding scale insulin 3. Hypertension - Blood pressure controlled, home medications continued with dose adjustment as needed 4. Obesity with BMI of 46.0 ?Patient has history of gastric bypass 5. Congestive heart failure with preserved ejection fraction ?Patient is on Lasix which is currently being held since patient is being resuscitated with fluids for her diverticulitis 6. History of of thyroid cancer status post thyroidectomy - Patient is on levothyroxine home dose continued 7. GERD ?Patient is on PPI 8. Obstructive sleep apnea ?Patient is on BiPAP at night 9. Degenerative joint disease ?With previous history of knee replacement 10. Chronic kidney disease stage III ?secondary to diabetic nephropathy kidney function at baseline 1.35 -06/16/2020; consult placed to nephrology 11. Sensorineural hearing loss ?Patient uses hearing aids 12. History of nonalcoholic fatty liver disease ?Stable 10. DVT prophylaxis - On enoxaparin Patient Problems: Active and Suspected Problems (Last Reviewed 06/15/20 @ 10:[address] Kemal Joe MD) Diverticulitis large intestine (Acute) - Physical Exam Vitals/I&O's: Vital Signs Temp Pulse Resp BP Pulse Ox 98.4 F 79 17 152/63 H 94 06/17/20 08:01 06/17/20 08:01 06/17/20 08:01 06/17/20 08:01 06/17/20 08:11 Oxygen Delivery Method Room Air Weight: 103.5 kg Body Mass Index (BMI) 43.8 Finger Stick Blood Glucose 173 Intake and Output for Last 24 Hours 06/15/20 06/16/20 06/17/20 23:59 23:59 23:59 Intake Total 2697.92 / 2757.92 2125 / 2125 Output Total 600 / 600 Balance 2697.92 / 2457.92 1525 / 1525 General: Alert HEENT: Atraumatic Neurological: Neuro grossly intact Psych/Mental Status: Normal Affect Microbiology Past 72 Hours 06/15/20 06:28 Urine, Catheterized Urine Culture - Final Culture exhibits no growth. 06/15/20 06:20 Blood Culture (Wb) - Right Hand Blood Culture - Preliminary No growth in 48 hours. 06/15/20 06:20 Blood Culture (Wb) - Anticubital Left Blood Culture - Preliminary No growth in 48 hours. Laboratory Results 06/16/20 17:21: POC Glucose 142 H 06/16/20 21:57: POC Glucose 126 H 06/17/20 05:41: WBC 9.2, RBC 3.22 L, Hgb 9.3 L, Hct 30.1 L, MCV 93.5, MCH 28.9, MCHC 30.9 L, RDW Std Deviation 50.9 H, RDW Coeff of Karina 14.7 H, Plt Count 184, MPV 9.9, Immature Gran % (Auto) 0.900, Neut % (Auto) 73.6 H, Lymph % (Auto) 17.4 L, [place] % (Auto) 6.8, Eos % (Auto) 1.0, Baso % (Auto) 0.3, Absolute Neuts (auto) 6.7, Absolute Lymphs (auto) 1.59, Nucleated RBC % 0 06/17/20 05:41: Sodium 138, Potassium 4.2, Chloride 109 H, Carbon Dioxide 23.0, Anion Gap 6, BUN 16, Creatinine 1.08 H, Estim Creat Clear Calc 33.32, Est GFR (MDRD) Af Amer 64, Est GFR (MDRD) Non-Af 53 L, BUN/Creatinine Ratio 14.8, Glucose 134 H, Calcium 8.2 L 06/17/20 06:40: POC Glucose 136 H 06/17/20 11:16: POC Glucose 140 H Current Medications Acetaminophen (Tylenol) 650 mg PO Q6H PRN PRN PRN Reason: Pain Score 1-10/Temp > 100.7 F Last Admin: 06/17/20 08:51 Dose: 650 mg Documented by: Al Hydroxide/Mg Hydroxide (Mylanta Ii) 30 ml PO Q6H PRN PRN PRN Reason: Gastric Burning Albuterol Sulfate (Ventolin Aerosols) 2.5 mg INHALATION Q2H PRN PRN PRN Reason: Shortness of Breath/Wheezing Aspirin (Aspirin, Baby) 81 mg PO DAILY@0800 [facility] Last Admin: 06/17/20 08:51 Dose: 81 mg Documented by: Calcium/Vitamin D (Os-Scott 500mg + D) 2 tablet PO BIDCM [facility] Last Admin: 06/17/20 08:51 Dose: 2 tablet Documented by: Dextrose (D50w Syringe) 0 gm IV X1 PRN; Protocol PRN Reason: Hypoglycemia Diphenhydramine HCl (Benadryl) 25 mg PO DAILY PRN PRN Reason: ITCHING Docusate Sodium (Colace) 100 mg PO DAILY [facility] Last Admin: 06/17/20 08:52 Dose: 100 mg Documented by: Duloxetine HCl (Cymbalta) 30 mg PO BID [facility] Last Admin: 06/17/20 08:52 Dose: 30 mg Documented by: Enoxaparin Sodium (Lovenox) 40 mg SC DAILY [facility] Last Admin: 06/17/20 08:52 Dose: 40 mg Documented by: Gabapentin (Neurontin) 600 mg PO BID [facility] Last Admin: 06/17/20 08:52 Dose: 600 mg Documented by: Glucagon () 1 mg IM .X1 PRN PRN Reason: Hypoglycemia Guaifenesin (Robitussin) 20 ml PO Q4H PRN PRN PRN Reason: COUGH Potassium Chloride/Sodium Chloride () 1,000 mls @ 75 mls/hr IV .[id number] [facility] Last Admin: 06/17/20 10:55 Dose: Not Given Documented by: Piperacillin Sod/Tazobactam (Sod 3.375 gm/ Sodium Chloride) 50 mls @ 12.5 mls/hr IV Q8 [facility] Last Admin: 06/17/20 14:49 Dose: 12.5 mls/hr Documented by: Insulin Glargine (Lantus (Bkc)) 10 units SC QHS [facility] Last Admin: 06/16/20 22:05 Dose: 10 u Documented by: Insulin Human Lispro (Humalog Kwikpen (Bkc)) 0 unit SC [facility]; Protocol Last Admin: 06/17/20 11:19 Dose: Not Given Documented by: Levothyroxine Sodium (Synthroid) 150 mcg PO MoTuWeThFrSa@0600 [facility] Last Admin: 06/17/20 05:00 Dose: 150 mcg Documented by: Levothyroxine Sodium (Synthroid) 225 mcg PO Rush@0600 [facility] Melatonin (Melatonin) 10 mg PO QHS [facility] Last Admin: 06/16/20 21:59 Dose: 10 mg Documented by: Metoprolol Tartrate (Lopressor (Beta Sana)) 25 mg PO DAILY PRN PRN PRN Reason: hypertension Morphine Sulfate () 4 mg IV Q3H PRN PRN PRN Reason: Pain Score 6-10 Last Admin: 06/15/20 22:15 Dose: 4 mg Documented by: Nitroglycerin (Nitrostat) 0.4 mg SUBLINGUAL Q5M PRN PRN Reason: ANGINA Ondansetron HCl (Zofran) 4 mg IV Q8H PRN PRN PRN Reason: NAUSEA/VOMITING Oxycodone HCl (Oxyir) 10 mg PO Q4H PRN PRN PRN Reason: Pain Score 4-5/10 Last Admin: 06/17/20 14:49 Dose: 10 mg Documented by: Pantoprazole Sodium (Protonix) 20 mg PO BID [facility] Last Admin: 06/17/20 08:52 Dose: 20 mg Documented by: Promethazine HCl (Phenergan) 25 mg IM Q6H PRN PRN PRN Reason: Breakthrough nausea/vomiting Sodium Chloride () 10 - 40 ml IV UD PRN PRN Reason: SALINE FLUSH Last Admin: 06/16/20 17:18 Dose: 10 ml Documented by: Home Medications: Medications to take at Discharge Aspirin [Aspirin, Baby] 81 mg PO DAILY@0800 08/22/14 Gabapentin [Neurontin] 600 mg PO BID 08/22/14 Insulin Aspart [Novolog Flexpen] See Protocol SUBCUT 4X/DAY 04/05/18 Hydrocodone/Acetaminophen [Hydrocodone-Acetamin 10-325 mg] 1 tab PO BID PRN 10/25/18 Docusate Sodium [Colace] 100 mg PO DAILY 06/06/19 Multivit-Min/Iron/Folic Acid/K [Bariatric Mv-Iron 45 mg Cap] 1 ea PO DAILY 06/06/19 Pantoprazole Sodium [Protonix] 20 mg PO BID 06/06/19 Calcium Citrate/Vitamin D3 [Citracal + D Maximum Caplet] 2 ea PO BID 07/04/19 Metoprolol Tartrate [Lopressor (beta sana)] 25 mg PO DAILY PRN PRN 07/04/19 fluticasone propionate 50 mcg/actuation nasal spray,suspension 2 spray INTRANASAL DAILY PRN 07/23/19 Melatonin 10 mg PO QHS PRN 11/01/19 Duloxetine Hcl [Cymbalta] 30 mg PO BID 02/23/20 diphenhydramine HCl 25 mg tablet 25 mg PO DAILY PRN tab 06/04/20 furosemide 20 mg tablet 20 mg PO BID tab 06/04/20 insulin aspart U-100 100 unit/mL (3 mL) subcutaneous pen 6 unit SUBCUT LUNCH ml 06/04/20 insulin aspart U-100 100 unit/mL (3 mL) subcutaneous pen 6 unit SUBCUT QHS ml 06/04/20 insulin aspart U-100 100 unit/mL (3 mL) subcutaneous pen 9 unit SUBCUT BREAKFAST ml 06/04/20 insulin aspart U-100 100 unit/mL (3 mL) subcutaneous pen 9 unit SUBCUT DINNER ml 06/04/20 insulin detemir U-100 100 unit/mL (3 mL) subcutaneous pen 21 unit SUBCUT QHS ml 06/04/20 insulin detemir U-100 100 unit/mL subcutaneous solution 19 unit SC QAM ml 06/04/20 levothyroxine 150 mcg tablet 150 mcg PO .COMPLEX 06/04/20 nitroglycerin 0.4 mg sublingual tablet 0.4 mg SUBLINGUAL Q5-15M PRN 06/04/20 polyethylene glycol 3350 17 gram/dose oral powder 17 g PO DAILY 06/04/20 Piperacil/Tazobactam [Zosyn] 3.375 gm IV Q8 vial 06/17/20 Primary Care Physician: Jesus Davila MD [Primary Care Provider] - Please Follow Up With: Jesus Davila MD Disposition: [facility] Minutes spent on discharge:: 50 Patient Condition:: Stable Medical Necessity - Tobacco Use Smoking Status: Former smoker Meaningful Use Info Meaningful Use Diagnoses (Choose all that apply): None applicable Inpatient E&M: 36532 Disch Hosp
[2020-06-17 16:31] LABS: Bedside Glucose 114 mg/dL (70-110)
[2020-06-17 17:06] LABS: Bedside Glucose 112 mg/dL (70-110)
[2020-06-17] MEDS: MELATONIN 10 MG TABLET PO (22:07)
[2020-06-17 22:21] LABS: Bedside Glucose 117 mg/dL (70-110)
[2020-06-18 01:58] VITALS: BP 103/49; PULSE 68; RESP 16; TEMP 37.1; O2SAT 95
[2020-06-18] MEDS: Levothyroxine 150 MCG Tablet PO (05:09)
[2020-06-18 05:33] LABS: Absolute Lymphocyte Count 1.56 X10^3/uL (0.83-4.51); Absolute Neutrophil Count 4.8 X10^3/uL (2.0-7.7); Basophil# 0.01 X10^3/uL; Basophil% 0.1 % (0-1); Eosinophil# 0.14 X10^3/uL; Eosinophils% 1.9 % (0-5); Hematocrit 27.1 % (37-47); Hemoglobin 8.3 g/dL (12.0-15.0); Lymphocyte # 1.56 X10^3/ul (4.0); Lymphocyte % 21.6 % (19-41); Mean Corp Hgb Conc 30.6 g/dL (32-36); Mean Corpuscular Hgb 29.2 pg (27.0-32.0); Mean Corpuscular Volume 95.4 fL (81-99); Mean Platelet Vol. 10.1 fl (6.2-12.0); Monocyte# 0.56 X10^3/uL; Monocyte% 7.8 % (0-10); NRBC Flagged by Analyzer 0 % (0-5); Neutrophil # 4.82 X10^3/uL (2.7-7.7); Neutrophil % 66.9 % (47-70); Platelet Count 186 K/mm3 (150-450); RBC Distribution Width CV 14.6 % (11.6-14.6); RBC Distribution Width SD 51.2 fl (35.1-43.9); Red Blood Count 2.84 M/mm3 (4.2-5.4); White Blood Count 7.2 K/mm3 (4.4-11.0)
[2020-06-18 05:48] LABS: Anion Gap 7 (5-15); BUN 13 mg/dL (7-18); Calcium,Total 7.9 mg/dL (8.5-10.1); Chloride 112 mmol/L (98-107); Creatinine, Serum 1.08 mg/dL (0.55-1.02); EST Glomerular Filtration Rate 53 mL/min (>60); Est Glom Filt Rate - Afr Amer 64 mL/min (>60); Estimated Creatinine Clearance 33.32 ml/min; Glucose 125 mg/dL (74-106); Sodium Level 141 mmol/L (136-145)
[2020-06-18 06:51] LABS: Bedside Glucose 135 mg/dL (70-110)
--- NOTE | 2020-06-18 07:31 | PN_ITS ---
Patient Problems: Active and Suspected Problems (Last Reviewed 06/15/20 @ 10:[address] Kemal Joe MD) Diverticulitis large intestine (Acute) Reason for Visit: Abdominal pain secondary to anterior abdominal wall mesh infection Subjective: Arrangements were made for patient to be transferred to [facility]. Patient has been accepted awaiting bed prior to transfer Objective: GENERAL: cooperative HEENT: Atraumatic; EYES; Anicteric, Normal Conjunctiva NECK; supple, normal thyroid, RESPIRATORY: Diminished to auscultation CARDIOVASCULAR: Regular S1 S2, GI: Protuberant abdomen with left lower quadrant tenderness : No Renal angle tenderness; EXTREMITIES: No edema, no clubbing, MUSCULOSKELETAL: no muscle waisting NEURO: Awake; no lateralizing signs. SKIN: No Rash PSYCH; Flat affect Vitals/I&O's: Vital Signs Temp Pulse Resp BP Pulse Ox 98.8 F 68 16 103/49 L 95 06/18/20 01:58 06/18/20 01:58 06/18/20 01:58 06/18/20 01:58 06/18/20 01:58 Oxygen Delivery Method Room Air Weight: 103.5 kg Body Mass Index (BMI) 43.8 Finger Stick Blood Glucose 173 Intake and Output for Last 24 Hours 06/16/20 06/17/20 06/18/20 23:59 23:59 23:59 Intake Total 2697.92 / 2757.92 3535 / 3660 1225 / 1225 Output Total 1400 / 1800 900 / 900 Balance 2697.92 / 2457.92 2135 / 1860 325 / 325 Microbiology Past 72 Hours 06/15/20 06:28 Urine, Catheterized Urine Culture - Final Culture exhibits no growth. 06/15/20 06:20 Blood Culture (Wb) - Right Hand Blood Culture - Preliminary No growth in 48 hours. 06/15/20 06:20 Blood Culture (Wb) - Anticubital Left Blood Culture - Preliminary No growth in 48 hours. Laboratory Results 06/17/20 11:16: POC Glucose 140 H 06/17/20 16:20: POC Glucose 114 H 06/17/20 16:59: POC Glucose 112 H 06/17/20 22:05: POC Glucose 117 H 06/18/20 05:06: WBC 7.2, RBC 2.84 L, Hgb 8.3 L, Hct 27.1 L, MCV 95.4, MCH 29.2, MCHC 30.6 L, RDW Std Deviation 51.2 H, RDW Coeff of Karina 14.6, Plt Count 186, MPV 10.1, Immature Gran % (Auto) 1.700 H, Neut % (Auto) 66.9, Lymph % (Auto) 21.6, [place] % (Auto) 7.8, Eos % (Auto) 1.9, Baso % (Auto) 0.1, Absolute Neuts (auto) 4.8, Absolute Lymphs (auto) 1.56, Nucleated RBC % 0 06/18/20 05:06: Sodium 141, Potassium 4.0, Chloride 112 H, Carbon Dioxide 22.0, Anion Gap 7, BUN 13, Creatinine 1.08 H, Estim Creat Clear Calc 33.32, Est GFR (MDRD) Af Amer 64, Est GFR (MDRD) Non-Af 53 L, BUN/Creatinine Ratio 12.0, Glucose 125 H, Calcium 7.9 L 06/18/20 06:43: POC Glucose 135 H Current Medications Acetaminophen (Tylenol) 650 mg PO Q6H PRN PRN PRN Reason: Pain Score 1-10/Temp > 100.7 F Last Admin: 06/17/20 08:51 Dose: 650 mg Documented by: Al Hydroxide/Mg Hydroxide (Mylanta Ii) 30 ml PO Q6H PRN PRN PRN Reason: Gastric Burning Albuterol Sulfate (Ventolin Aerosols) 2.5 mg INHALATION Q2H PRN PRN PRN Reason: Shortness of Breath/Wheezing Aspirin (Aspirin, Baby) 81 mg PO DAILY@0800 [facility] Last Admin: 06/17/20 08:51 Dose: 81 mg Documented by: Calcium/Vitamin D (Os-Scott 500mg + D) [facility] Last Admin: 06/17/20 17:16 Dose: 2 tablet Documented by: Dextrose (D50w Syringe) 0 gm IV X1 PRN; Protocol PRN Reason: Hypoglycemia Diphenhydramine HCl (Benadryl) 25 mg PO DAILY PRN PRN Reason: ITCHING Docusate Sodium (Colace) 100 mg PO DAILY [facility] Last Admin: 06/17/20 08:52 Dose: 100 mg Documented by: Duloxetine HCl (Cymbalta) 30 mg PO BID [facility] Last Admin: 06/17/20 22:07 Dose: 30 mg Documented by: Enoxaparin Sodium (Lovenox) 40 mg SC DAILY [facility] Last Admin: 06/17/20 08:52 Dose: 40 mg Documented by: Gabapentin (Neurontin) 600 mg PO BID [facility] Last Admin: 06/17/20 22:07 Dose: 600 mg Documented by: Glucagon () 1 mg IM .X1 PRN PRN Reason: Hypoglycemia Guaifenesin (Robitussin) 20 ml PO Q4H PRN PRN PRN Reason: COUGH Potassium Chloride/Sodium Chloride () 1,000 mls @ 75 mls/hr IV .[id number] [facility] Last Admin: 06/18/20 06:40 Dose: 75 mls/hr Documented by: Piperacillin Sod/Tazobactam (Sod 3.375 gm/ Sodium Chloride) 50 mls @ 12.5 ml s/hr IV Q8 [facility] Last Admin: 06/18/20 05:09 Dose: 12.5 mls/hr Documented by: Insulin Glargine (Lantus (Bkc)) 10 units SC QHS [facility] Last Admin: 06/17/20 22:07 Dose: 10 u Documented by: Insulin Human Lispro (Humalog Kwikpen (Bkc)) 0 unit SC [facility]; Protocol Last Admin: 06/18/20 06:44 Dose: Not Given Documented by: Levothyroxine Sodium (Synthroid) 150 mcg PO MoTuWeThFrSa@0600 [facility] Last Admin: 06/18/20 05:09 Dose: 150 mcg Documented by: Levothyroxine Sodium (Synthroid) 225 mcg PO Rush@0600 [facility] Melatonin (Melatonin) 10 mg PO QHS [facility] Last Admin: 06/17/20 22:07 Dose: 10 mg Documented by: Metoprolol Tartrate (Lopressor (Beta Sana)) 25 mg PO DAILY PRN PRN PRN Reason: hypertension Morphine Sulfate () 4 mg IV Q3H PRN PRN PRN Reason: Pain Score 6-10 Last Admin: 06/15/20 22:15 Dose: 4 mg Documented by: Nitroglycerin (Nitrostat) 0.4 mg SUBLINGUAL Q5M PRN PRN Reason: ANGINA Ondansetron HCl (Zofran) 4 mg IV Q8H PRN PRN PRN Reason: NAUSEA/VOMITING Oxycodone HCl (Oxyir) 10 mg PO Q4H PRN PRN PRN Reason: Pain Score 4-5/10 Last Admin: 06/17/20 20:17 Dose: 10 mg Documented by: Pantoprazole Sodium (Protonix) 20 mg PO BID [facility] Last Admin: 06/17/20 22:07 Dose: 20 mg Documented by: Promethazine HCl (Phenergan) 25 mg IM Q6H PRN PRN PRN Reason: Breakthrough nausea/vomiting Sodium Chloride () 10 - 40 ml IV UD PRN PRN Reason: SALINE FLUSH Last Admin: 06/16/20 17:18 Dose: 10 ml Documented by: Medical Necessity - Tobacco Use Smoking Status: Former smoker Assessment/Plan All Active Problems (Last Reviewed 06/15/20 @ 10:[address] Kemal Joe MD) Diverticulitis large intestine (Acute) Confusion (Resolved) Dehydration (Resolved) Dyspnea (Resolved) Fever (Resolved) UTI (lower urinary tract infection) (Resolved) Patient is a 75-year-old lady who presented with left lower quadrant abdominal pain, fever with some confusion. Imaging studies obtained on admission demonstrated severe diverticulitis involving the sigmoid colon admitted to regular nursing floor for further management Patient is a 75-year-old lady who presented with left lower quadrant abdominal pain, fever with some confusion. Imaging studies obtained on admission demonstrated severe diverticulitis involving the sigmoid colon admitted to regular nursing floor for further management 1. Abdominal pain secondary to anterior abdominal wall mesh infection ?Initial imaging studies suggested severe diverticulitis General surgery was consulted as a result. Patient was seen by Dr. Rose who felt patient presentation was more consistent with abdominal wall mesh infection. This was confirmed with patient repeat CAT scan performed on 06/17/2020 There is a surgical mesh. Few small air bubbles are seen in the lower anterior abdominal wall may represent an infectious process. There is subcutaneous fat stranding in the lower abdominal wall suggesting cellulitis. Based on above findings call was placed to [facility] patient transferred to be evaluated by her surgeon Dr. Tim Reevse 2. Diabetes mellitus type II Controlled with complications including glycemia and diabetic nephropathy patient's oral hypoglycemics held,, placed on long-acting insulin in addition to on Accu-Cheks a.c. and at bedtime and covered with sliding scale insulin 3. Hypertension - Blood pressure controlled, home medications continued with dose adjustment as needed 4. Obesity with BMI of 46.0 ?Patient has history of gastric bypass 5. Congestive heart failure with preserved ejection fraction ?Patient is on Lasix which is currently being held since patient is being resuscitated with fluids for her diverticulitis 6. History of of thyroid cancer status post thyroidectomy - Patient is on levothyroxine home dose continued 7. GERD ?Patient is on PPI 8. Obstructive sleep apnea ?Patient is on BiPAP at night 9. Degenerative joint disease ?With previous history of knee replacement 10. Chronic kidney disease stage III ?secondary to diabetic nephropathy kidney function at baseline 1.35 -06/16/2020; consult placed to nephrology 11. Sensorineural hearing loss ?Patient uses hearing aids 12. History of nonalcoholic fatty liver disease ?Stable 10. DVT prophylaxis - On enoxaparin Inpatient E&M: 33339 Subs Hosp L2
[2020-06-18 08:24] VITALS: BP 112/55; PULSE 77; RESP 18; TEMP 36.7; O2SAT 95
[2020-06-18] MEDS: oxyCODONE 5 MG Tablet 10 MG PO ×2 (08:44→19:56)
[2020-06-18] MEDS: Pantoprazole Sodium 20 MG Tablet PO ×2 (08:44→20:00)
[2020-06-18] MEDS: Docusate Sodium 100 MG Capsule PO (08:44)
[2020-06-18] MEDS: Gabapentin 600 MG Tablet PO ×2 (08:44→20:00)
[2020-06-18] MEDS: DULoxetine Hcl 30 MG Capsule PO ×2 (08:44→20:00)
[2020-06-18] MEDS: Calcium Carb/Vitamin D 1 TABLET Tablet 2 TABLET PO ×2 (08:44→17:47)
[2020-06-18] MEDS: Aspirin 81 MG TAB.CHEW PO (08:45)
[2020-06-18 11:45] VITALS: O2SAT 93
[2020-06-18 11:51] LABS: Bedside Glucose 155 mg/dL (70-110)
[2020-06-18] MEDS: Insulin Lispro 100 UNIT/ML INSULN.PEN SC (12:05)
[2020-06-18] MEDS: Enoxaparin 40 MG/0.4 ML Syringe SC (12:05)
[2020-06-18 13:48] VITALS: BP 112/58; PULSE 60; RESP 16; TEMP 36.7; O2SAT 95
[2020-06-18 17:46] LABS: Bedside Glucose 94 mg/dL (70-110)
--- NOTE | 2020-06-18 18:06 | NURSING ---
Called [facility] to check on bed status. Request has been made, no beds available.
[2020-06-18 19:50] VITALS: BP 121/64; PULSE 68; RESP 16; TEMP 38.2; O2SAT 94
[2020-06-18] MEDS: Acetaminophen 325 MG Tablet 650 MG PO (19:57)
[2020-06-18] MEDS: MELATONIN 10 MG TABLET PO (20:00)
--- NOTE | 2020-06-18 20:00 | NURSING ---
Pt. requested to have HS meds due at 2200 given at this time, meds accepted with thin liquids without difficulty.
[2020-06-18 22:31] VITALS: BP 116/58; PULSE 69; RESP 18; TEMP 37.3; O2SAT 95
[2020-06-18 23:06] LABS: Bedside Glucose 137 mg/dL (70-110)
[2020-06-19 04:28] VITALS: BP 109/61; PULSE 71; RESP 18; TEMP 37.6; O2SAT 94
[2020-06-19 06:35] LABS: Absolute Lymphocyte Count 1.23 X10^3/uL (0.83-4.51); Absolute Neutrophil Count 4.2 X10^3/uL (2.0-7.7); Basophil# 0.02 X10^3/uL; Basophil% 0.3 % (0-1); Eosinophil# 0.11 X10^3/uL; Eosinophils% 1.8 % (0-5); Hemoglobin 8.6 g/dL (12.0-15.0); Lymphocyte # 1.23 X10^3/ul (4.0); Lymphocyte % 19.9 % (19-41); Mean Corp Hgb Conc 30.7 g/dL (32-36); Mean Corpuscular Hgb 29.3 pg (27.0-32.0); Mean Corpuscular Volume 95.2 fL (81-99); Monocyte# 0.52 X10^3/uL; Monocyte% 8.4 % (0-10); NRBC Flagged by Analyzer 0 % (0-5); Neutrophil # 4.15 X10^3/uL (2.7-7.7); Neutrophil % 67.3 % (47-70); Platelet Count 196 K/mm3 (150-450); RBC Distribution Width CV 14.9 % (11.6-14.6); RBC Distribution Width SD 52.7 fl (35.1-43.9); Red Blood Count 2.94 M/mm3 (4.2-5.4); White Blood Count 6.2 K/mm3 (4.4-11.0)
[2020-06-19] MEDS: Levothyroxine 150 MCG Tablet PO (06:59)
[2020-06-19 07:04] LABS: ALB/GLOB Ratio 0.6 RATIO (0.9-2.4); AST(SGOT) 16 U/L (15-37); Alanine Aminotransfer ALT/SGPT 20 U/L (13-56); Albumin, Serum 2.3 g/dL (3.2-5.0); Alkaline Phosphatase 62 U/L (45-117); Anion Gap 5 (5-15); BUN 10 mg/dL (7-18); BUN/Creat Ratio 9.5 RATIO (10-20); Calcium,Total 8.1 mg/dL (8.5-10.1); Chloride 110 mmol/L (98-107); Creatinine, Serum 1.05 mg/dL (0.55-1.02); EST Glomerular Filtration Rate 55 mL/min (>60); Est Glom Filt Rate - Afr Amer 66 mL/min (>60); Estimated Creatinine Clearance 34.28 ml/min; Globulin 3.8 g/dL (2.2-4.2); Glucose 123 mg/dL (74-106); Potassium 4.1 mmol/L (3.5-5.1); Protein, Total 6.1 g/dL (6.4-8.2); Sodium Level 138 mmol/L (136-145)
[2020-06-19 07:10] LABS: Bedside Glucose 125 mg/dL (70-110)
--- NOTE | 2020-06-19 07:36 | PN_ITS ---
Patient Problems: Active and Suspected Problems (Last Reviewed 06/15/20 @ 10:[address] Kemal Joe MD) Diverticulitis large intestine (Acute) Reason for Visit: anterior abdominal wall mesh infection Subjective: She is seen still complains of quadrant tenderness. Still awaiting a bed prior to patient being transferred to [facility]. Objective: GENERAL: cooperative HEENT: Atraumatic; EYES; Anicteric, Normal Conjunctiva NECK; supple, normal thyroid, RESPIRATORY: Diminished to auscultation CARDIOVASCULAR: Regular S1 S2, GI: Protuberant abdomen with left lower quadrant tenderness : No Renal angle tenderness; EXTREMITIES: No edema, no clubbing, MUSCULOSKELETAL: no muscle waisting NEURO: Awake; no lateralizing signs. SKIN: No Rash PSYCH; Flat affect Vitals/I&O's: Vital Signs Temp Pulse Resp BP Pulse Ox 99.6 F H 71 18 109/61 94 06/19/20 04:28 06/19/20 04:28 06/19/20 04:28 06/19/20 04:28 06/19/20 04:28 Oxygen Delivery Method Bi-pap Weight: 103.5 kg Body Mass Index (BMI) 43.8 Finger Stick Blood Glucose 173 Intake and Output for Last 24 Hours 06/17/20 06/18/20 06/19/20 23:59 23:59 23:59 Intake Total 3535 / 3660 2685.00 / 2685.00 170 / 170 Output Total 1400 / 1800 2300 / 2300 Balance 2135 / 1860 385.00 / 385.00 170 / 170 Microbiology Past 72 Hours 06/15/20 06:28 Urine, Catheterized Urine Culture - Final Culture exhibits no growth. 06/15/20 06:20 Blood Culture (Wb) - Right Hand Blood Culture - Preliminary No growth in 48 hours. 06/15/20 06:20 Blood Culture (Wb) - Anticubital Left Blood Culture - Preliminary No growth in 48 hours. Laboratory Results 06/18/20 11:45: POC Glucose 155 H 06/18/20 17:42: POC Glucose 94 06/18/20 22:21: POC Glucose 137 H 06/19/20 05:28: WBC 6.2, RBC 2.94 L, Hgb 8.6 L, Hct 28.0 L, MCV 95.2, MCH 29.3, MCHC 30.7 L, RDW Std Deviation 52.7 H, RDW Coeff of Karina 14.9 H, Plt Count 196, MPV 10.0, Immature Gran % (Auto) 2.300 H, Neut % (Auto) 67.3, Lymph % (Auto) 19.9, [place] % (Auto) 8.4, Eos % (Auto) 1.8, Baso % (Auto) 0.3, Absolute Neuts (auto) 4.2, Absolute Lymphs (auto) 1.23, Nucleated RBC % 0 06/19/20 05:28: Sodium 138, Potassium 4.1, Chloride 110 H, Carbon Dioxide 23.0, Anion Gap 5, BUN 10, Creatinine 1.05 H, Estim Creat Clear Calc 34.28, Est GFR (MDRD) Af Amer 66, Est GFR (MDRD) Non-Af 55 L, BUN/Creatinine Ratio 9.5 L, Glucose 123 H, Calcium 8.1 L, Total Bilirubin 0.30, AST 16, ALT 20, Alkaline Phosphatase 62, Total Protein 6.1 L, Albumin 2.3 L, Globulin 3.8, Albumin/Globulin Ratio 0.6 L 06/19/20 07:05: POC Glucose 125 H Current Medications Acetaminophen (Tylenol) 650 mg PO Q6H PRN PRN PRN Reason: Pain Score 1-10/Temp > 100.7 F Last Admin: 06/18/20 19:57 Dose: 650 mg Documented by: Al Hydroxide/Mg Hydroxide (Mylanta Ii) 30 ml PO Q6H PRN PRN PRN Reason: Gastric Burning Albuterol Sulfate (Ventolin Aerosols) 2.5 mg INHALATION Q2H PRN PRN PRN Reason: Shortness of Breath/Wheezing Aspirin (Aspirin, Baby) 81 mg PO DAILY@0800 [facility] Last Admin: 06/18/20 08:45 Dose: 81 mg Documented by: Calcium/Vitamin D (Os-Scott 500mg + D) 2 tablet PO BIDCM [facility] Last Admin: 06/18/20 17:47 Dose: 2 tablet Documented by: Dextrose (D50w Syringe) 0 gm IV X1 PRN; Protocol PRN Reason: Hypoglycemia Diphenhydramine HCl (Benadryl) 25 mg PO DAILY PRN PRN Reason: ITCHING Docusate Sodium (Colace) 100 mg PO DAILY [facility] Last Admin: 06/18/20 08:44 Dose: 100 mg Documented by: Duloxetine HCl (Cymbalta) 30 mg PO BID [facility] Last Admin: 06/18/20 20:00 Dose: 30 mg Documented by: Enoxaparin Sodium (Lovenox) 40 mg SC DAILY [facility] Last Admin: 06/18/20 12:05 Dose: 40 mg Documented by: Gabapentin (Neurontin) 600 mg PO BID [facility] Last Admin: 06/18/20 20:00 Dose: 600 mg Documented by: Glucagon () 1 mg IM .X1 PRN PRN Reason: Hypoglycemia Guaifenesin (Robitussin) 20 ml PO Q4H PRN PRN PRN Reason: COUGH Potassium Chloride/Sodium Chloride () 1,000 mls @ 75 mls/hr IV .[id number] [facility] Last Admin: 06/18/20 20:00 Dose: 75 mls/hr Documented by: Piperacillin Sod/Tazobactam (Sod 3.375 gm/ Sodium Chloride) 50 mls @ 12.5 mls/hr IV Q8 [facility] Last Admin: 06/19/20 06:01 Dose: 12.5 mls/hr Documented by: Insulin Glargine (Lantus (Bkc)) 10 units SC QHS [facility] Last Admin: 06/18/20 22:23 Dose: 10 u Documented by: Insulin Human Lispro (Humalog Kwikpen (Bkc)) 0 unit SC [facility]; Protocol Last Admin: 06/19/20 07:06 Dose: Not Given Documented by: Levothyroxine Sodium (Synthroid) 150 mcg PO MoTuWeThFrSa@0600 [facility] Last Admin: 06/19/20 06:59 Dose: 150 mcg Documented by: Levothyroxine Sodium (Synthroid) 225 mcg PO Rush@0600 [facility] Melatonin (Melatonin) 10 mg PO QHS [facility] Last Admin: 06/18/20 20:00 Dose: 10 mg Documented by: Metoprolol Tartrate (Lopressor (Beta Sana)) 25 mg PO DAILY PRN PRN PRN Reason: hypertension Morphine Sulfate () 4 mg IV Q3H PRN PRN PRN Reason: Pain Score 6-10 Last Admin: 06/15/20 22:15 Dose: 4 mg Documented by: Nitroglycerin (Nitrostat) 0.4 mg SUBLINGUAL Q5M PRN PRN Reason: ANGINA Ondansetron HCl (Zofran) 4 mg IV Q8H PRN PRN PRN Reason: NAUSEA/VOMITING Oxycodone HCl (Oxyir) 10 mg PO Q4H PRN PRN PRN Reason: Pain Score 4-5/10 Last Admin: 06/18/20 19:56 Dose: 10 mg Documented by: Pantoprazole Sodium (Protonix) 20 mg PO BID [facility] Last Admin: 06/18/20 20:00 Dose: 20 mg Documented by: Promethazine HCl (Phenergan) 25 mg IM Q6H PRN PRN PRN Reason: Breakthrough nausea/vomiting Sodium Chloride () 10 - 40 ml IV UD PRN PRN Reason: SALINE FLUSH Last Admin: 06/16/20 17:18 Dose: 10 ml Documented by: STROKE Vital Signs/Narrative: Vital Signs Temp Pulse Resp BP Pulse Ox 06/19/20 04:28 99.6 F H 71 18 109/61 94 Medical Necessity - Tobacco Use Smoking Status: Former smoker Assessment/Plan All Active Problems (Last Reviewed 06/15/20 @ 10:[address] Kemal Joe MD) Infected prosthetic mesh of abdominal wall (Acute) Infected hernioplasty mesh (Acute) Diverticulitis large intestine (Acute) Confusion (Resolved) Dehydration (Resolved) Dyspnea (Resolved) Fever (Resolved) UTI (lower urinary tract infection) (Resolved) Patient is a 75-year-old lady who presented with left lower quadrant abdominal pain, fever with some confusion. Imaging studies obtained on admission demonstrated severe diverticulitis involving the sigmoid colon admitted to regular nursing floor for further management Patient is a 75-year-old lady who presented with left lower quadrant abdominal pain, fever with some confusion. Imaging studies obtained on admission demonstrated severe diverticulitis involving the sigmoid colon admitted to regular nursing floor for further management 1. Abdominal pain secondary to anterior abdominal wall mesh infection ?Initial imaging studies suggested severe diverticulitis General surgery was consulted as a result. Patient was seen by Dr. Rose who felt patient presentation was more consistent with abdominal wall mesh infection. This was confirmed with patient repeat CAT scan performed on 06/17/2020 There is a surgical mesh. Few small air bubbles are seen in the lower anterior abdominal wall may represent an infectious process. There is subcutaneous fat stranding in the lower abdominal wall suggesting cellulitis. Based on above findings call was placed to [facility] patient transferred to be evaluated by her surgeon Dr. Tim Reeves -06/19/2020. Awaiting bed prior to transfer to [facility] 2. Diabetes mellitus type II Controlled with complications including glycemia and diabetic nephropathy patient's oral hypoglycemics held,, placed on long-acting insulin in addition to on Accu-Cheks a.c. and at bedtime and covered with sliding scale insulin 3. Hypertension - Blood pressure controlled, home medications continued with dose adjustment as needed 4. Obesity with BMI of 46.0 ?Patient has history of gastric bypass 5. Congestive heart failure with preserved ejection fraction ?Patient is on Lasix which is currently being held since patient is being resuscitated with fluids for her diverticulitis 6. History of of thyroid cancer status post thyroidectomy - Patient is on levothyroxine home dose continued 7. GERD ?Patient is on PPI 8. Obstructive sleep apnea ?Patient is on BiPAP at night 9. Degenerative joint disease ?With previous history of knee replacement 10. Chronic kidney disease stage III ?secondary to diabetic nephropathy kidney function at baseline 1.35 -06/16/2020; consult placed to nephrology 11. Sensorineural hearing loss ?Patient uses hearing aids 12. History of nonalcoholic fatty liver disease ?Stable 10. DVT prophylaxis - On enoxaparin Inpatient E&M: 25178 Subs Hosp L2
--- NOTE | 2020-06-19 08:15 | PN.SURG_ITS ---
Patient Problems: Active and Suspected Problems (Last Reviewed 06/15/20 @ 10:[address] Kemal Joe MD) Diverticulitis large intestine (Acute) Subjective: Patient still having left lower quadrant pain but no nausea or vomiting - Physical Exam Vitals/I&O's: Vital Signs Temp Pulse Resp BP Pulse Ox 99.6 F H 71 18 109/61 94 06/19/20 04:28 06/19/20 04:28 06/19/20 04:28 06/19/20 04:28 06/19/20 04:28 Oxygen Delivery Method Room Air Weight: 228 lb 2.855 oz Body Mass Index (BMI) 43.8 Finger Stick Blood Glucose 173 Intake and Output for Last 24 Hours 06/17/20 06/18/20 06/19/20 23:59 23:59 23:59 Intake Total 3535 / 3660 2685.00 / 2685.00 170 / 170 Output Total 1400 / 1800 2300 / 2300 Balance 2135 / 1860 385.00 / 385.00 170 / 170 General: Alert, Oriented x3 Lungs: Normal air movement Cardiovascular: Regular rate, Regular Rhythm Abdomen: Soft, Non-Distended, Tender - Tender in the left lower quadrant Microbiology Past 72 Hours 06/15/20 06:28 Urine, Catheterized Urine Culture - Final Culture exhibits no growth. 06/15/20 06:20 Blood Culture (Wb) - Right Hand Blood Culture - Preliminary No growth in 48 hours. 06/15/20 06:20 Blood Culture (Wb) - Anticubital Left Blood Culture - Preliminary No growth in 48 hours. Laboratory Results 06/18/20 11:45: POC Glucose 155 H 06/18/20 17:42: POC Glucose 94 06/18/20 22:21: POC Glucose 137 H 06/19/20 05:28: WBC 6.2, RBC 2.94 L, Hgb 8.6 L, Hct 28.0 L, MCV 95.2, MCH 29.3, MCHC 30.7 L, RDW Std Deviation 52.7 H, RDW Coeff of Karina 14.9 H, Plt Count 196, MPV 10.0, Immature Gran % (Auto) 2.300 H, Neut % (Auto) 67.3, Lymph % (Auto) 19.9, [place] % (Auto) 8.4, Eos % (Auto) 1.8, Baso % (Auto) 0.3, Absolute Neuts (auto) 4.2, Absolute Lymphs (auto) 1.23, Nucleated RBC % 0 06/19/20 05:28: Sodium 138, Potassium 4.1, Chloride 110 H, Carbon Dioxide 23.0, Anion Gap 5, BUN 10, Creatinine 1.05 H, Estim Creat Clear Calc 34.28, Est GFR (MDRD) Af Amer 66, Est GFR (MDRD) Non-Af 55 L, BUN/Creatinine Ratio 9.5 L, Glucose 123 H, Calcium 8.1 L, Total Bilirubin 0.30, AST 16, ALT 20, Alkaline Phosphatase 62, Total Protein 6.1 L, Albumin 2.3 L, Globulin 3.8, Albumin/Globulin Ratio 0.6 L 06/19/20 07:05: POC Glucose 125 H Current Medications Acetaminophen (Tylenol) 650 mg PO Q6H PRN PRN PRN Reason: Pain Score 1-10/Temp > 100.7 F Last Admin: 06/18/20 19:57 Dose: 650 mg Documented by: Al Hydroxide/Mg Hydroxide (Mylanta Ii) 30 ml PO Q6H PRN PRN PRN Reason: Gastric Burning Albuterol Sulfate (Ventolin Aerosols) 2.5 mg INHALATION Q2H PRN PRN PRN Reason: Shortness of Breath/Wheezing Aspirin (Aspirin, Baby) 81 mg PO DAILY@0800 [facility] Last Admin: 06/18/20 08:45 Dose: 81 mg Documented by: Calcium/Vitamin D (Os-Scott 500mg + D) [facility] Last Admin: 06/18/20 17:47 Dose: 2 tablet Documented by: Dextrose (D50w Syringe) 0 gm IV X1 PRN; Protocol PRN Reason: Hypoglycemia Diphenhydramine HCl (Benadryl) 25 mg PO DAILY PRN PRN Reason: ITCHING Docusate Sodium (Colace) 100 mg PO DAILY [facility] Last Admin: 06/18/20 08:44 Dose: 100 mg Documented by: Duloxetine HCl (Cymbalta) 30 mg PO BID [facility] Last Admin: 06/18/20 20:00 Dose: 30 mg Documented by: Enoxaparin Sodium (Lovenox) 40 mg SC DAILY [facility] Last Admin: 06/18/20 12:05 Dose: 40 mg Documented by: Gabapentin (Neurontin) 600 mg PO BID [facility] Last Admin: 06/18/20 20:00 Dose: 600 mg Documented by: Glucagon () 1 mg IM .X1 PRN PRN Reason: Hypoglycemia Guaifenesin (Robitussin) 20 ml PO Q4H PRN PRN PRN Reason: COUGH Potassium Chloride/Sodium Chloride () 1,000 mls @ 75 mls/hr IV .[id number] [facility] Last Admin: 06/18/20 20:00 Dose: 75 mls/hr Documented by: Piperacillin Sod/Tazobactam (Sod 3.375 gm/ Sodium Chloride) 50 mls @ 12.5 mls/hr IV Q8 [facility] Last Admin: 06/19/20 06:01 Dose: 12.5 mls/hr Documented by: Insulin Glargine (Lantus ([facility])) 10 units SC QHS [facility] Last Admin: 06/18/20 22:23 Dose: 10 u Documented by: Insulin Human Lispro (Humalog Kwikpen ([facility])) [facility]; Protocol Last Admin: 06/19/20 07:06 Dose: Not Given Documented by: Levothyroxine Sodium (Synthroid) 150 mcg PO MoTuWeThFrSa@0600 [facility] Last Admin: 06/19/20 06:59 Dose: 150 mcg Documented by: Levothyroxine Sodium (Synthroid) 225 mcg PO Rush@0600 [facility] Melatonin (Melatonin) 10 mg PO QHS [facility] Last Admin: 06/18/20 20:00 Dose: 10 mg Documented by: Metoprolol Tartrate (Lopressor (Beta Sana)) 25 mg PO DAILY PRN PRN PRN Reason: hypertension Morphine Sulfate () 4 mg IV Q3H PRN PRN PRN Reason: Pain Score 6-10 Last Admin: 06/15/20 22:15 Dose: 4 mg Documented by: Nitroglycerin (Nitrostat) 0.4 mg SUBLINGUAL Q5M PRN PRN Reason: ANGINA Ondansetron HCl (Zofran) 4 mg IV Q8H PRN PRN PRN Reason: NAUSEA/VOMITING Oxycodone HCl (Oxyir) 10 mg PO Q4H PRN PRN PRN Reason: Pain Score 4-5/10 Last Admin: 06/18/20 19:56 Dose: 10 mg Documented by: Pantoprazole Sodium (Protonix) 20 mg PO BID [facility] Last Admin: 06/18/20 20:00 Dose: 20 mg Documented by: Promethazine HCl (Phenergan) 25 mg IM Q6H PRN PRN PRN Reason: Breakthrough nausea/vomiting Sodium Chloride () 10 - 40 ml IV UD PRN PRN Reason: SALINE FLUSH Last Admin: 06/16/20 17:18 Dose: 10 ml Documented by: Medical Necessity - Tobacco Use Smoking Status: Former smoker Assessment/Plan All Active Problems (Last Reviewed 06/15/20 @ 10:[address] Kemal Joe MD) Infected prosthetic mesh of abdominal wall (Acute) Infected hernioplasty mesh (Acute) Diverticulitis large intestine (Acute) Confusion (Resolved) Dehydration (Resolved) Dyspnea (Resolved) Fever (Resolved) UTI (lower urinary tract infection) (Resolved) 75-year-old female with mesh infection 1. Patient is awaiting bed at [facility]. At this point she could probably be started on a regular diet but I discussed this with her and she would like to stay on clears in case they need to do any surgery and she does not want to have to clear her bowels. Continue clear liquids and awaiting bed placement. Continue antibiotics. Al Rose MD Pager: [facility] [address] [place] [address], [address] [place] [address] Office:
[2020-06-19] MEDS: Enoxaparin 40 MG/0.4 ML Syringe SC (09:13)
[2020-06-19] MEDS: oxyCODONE 5 MG Tablet 10 MG PO ×3 (09:13→22:04)
[2020-06-19] MEDS: Calcium Carb/Vitamin D 1 TABLET Tablet 2 TABLET PO ×2 (09:14→16:37)
[2020-06-19] MEDS: Pantoprazole Sodium 20 MG Tablet PO ×2 (09:14→21:54)
[2020-06-19] MEDS: Aspirin 81 MG TAB.CHEW PO (09:14)
[2020-06-19] MEDS: DULoxetine Hcl 30 MG Capsule PO ×2 (09:14→21:52)
[2020-06-19] MEDS: Docusate Sodium 100 MG Capsule PO (09:14)
[2020-06-19] MEDS: Gabapentin 600 MG Tablet PO ×2 (09:14→21:53)
[2020-06-19] MEDS: Acetaminophen 325 MG Tablet 650 MG PO ×2 (09:16→18:05)
[2020-06-19 10:36] VITALS: BP 101/55; PULSE 60; RESP 18; TEMP 37.2; O2SAT 93
[2020-06-19 12:31] LABS: Bedside Glucose 142 mg/dL (70-110)
[2020-06-19 16:33] VITALS: BP 114/57; PULSE 63; RESP 16; TEMP 37.2; O2SAT 97
[2020-06-19 17:20] LABS: Bedside Glucose 91 mg/dL (70-110)
[2020-06-19] MEDS: MELATONIN 10 MG TABLET PO (21:53)
[2020-06-19 22:10] VITALS: BP 115/65; PULSE 61; RESP 16; TEMP 37.1; O2SAT 93
[2020-06-19 22:46] LABS: Bedside Glucose 132 mg/dL (70-110)
[2020-06-20 02:47] VITALS: BP 117/60; PULSE 74; RESP 16; TEMP 37.2; O2SAT 92
[2020-06-20] MEDS: oxyCODONE 5 MG Tablet 10 MG PO (04:22)
[2020-06-20] MEDS: Acetaminophen 325 MG Tablet 650 MG PO (04:23)
== END 2020-06-20 05:10 | disposition short-term general hospital (02) | DRG 920 ==
LOC: ED 06:38 → PCU 10:22
PROVIDERS: Family Medicine; Admitting Provider Internal Medicine; Emergency Provider Emergency Medicine; PCP Internal Medicine; Visit Provider Internal Medicine
DX: T85.79XA Infection and inflammatory reaction due to other internal prosthetic devices, implants and grafts, initial encounter (principal); I50.32 Chronic diastolic (congestive) heart failure; I13.0 Hypertensive heart and chronic kidney disease with heart failure and stage 1 through stage 4 chronic kidney disease, or unspecified chronic kidney disease; Z68.42 Body mass index [BMI] 45.0-49.9, adult; Y83.2 Surgical operation with anastomosis, bypass or graft as the cause of abnormal reaction of the patient, or of later complication, without mention of misadventure at the time of the procedure; K21.9 Gastro-esophageal reflux disease without esophagitis; E03.9 Hypothyroidism, unspecified; Z98.84 Bariatric surgery status; I25.10 Atherosclerotic heart disease of native coronary artery without angina pectoris; E78.5 Hyperlipidemia, unspecified; Z85.850 Personal history of malignant neoplasm of thyroid; I27.20 Pulmonary hypertension, unspecified; G47.33 Obstructive sleep apnea (adult) (pediatric); K76.0 Fatty (change of) liver, not elsewhere classified; E11.22 Type 2 diabetes mellitus with diabetic chronic kidney disease; N18.30 Chronic kidney disease, stage 3 unspecified; F32.9 Major depressive disorder, single episode, unspecified; E66.01 Morbid (severe) obesity due to excess calories; Z87.19 Personal history of other diseases of the digestive system; Z87.01 Personal history of pneumonia (recurrent); Z79.82 Long term (current) use of aspirin; Z79.4 Long term (current) use of insulin; Z79.899 Other long term (current) drug therapy; Z87.891 Personal history of nicotine dependence; Z96.653 Presence of artificial knee joint, bilateral; F41.9 Anxiety disorder, unspecified; Z87.440 Personal history of urinary (tract) infections; H90.5 Unspecified sensorineural hearing loss; Z90.49 Acquired absence of other specified parts of digestive tract; D64.9 Anemia, unspecified; M19.90 Unspecified osteoarthritis, unspecified site
CPT/HCPCS: 36415; 70450; 71045; 74176; 74177; 80048; 80053; 80076; 81001; 82962; 83605; 83735; 84100; 84484; 85025; 87040; 87086; 93005; 97110; 97116; 97162; 97166; 97530; 97535; 99251; 99285; G0008; J7030; Q9967; 90686; A4216; G0463

== ENCOUNTER 2020-07-09 13:23 | Outpatient (RCR) | payer MEDICARE, SELFPAY ==
[2020-06-15 11:11] VITALS: BMI 43.8
[2020-07-06 16:36] LABS: Color, Urine Yellow (Yellow); Glucose, Dipstick Normal (Normal); Ketone-Dipstick Negative (Negative); Leukocyte Esterase-Dipstick Negative /ul (Negative); Nitrite-Dipstick Negative (Negative); Occult Blood-Urine Negative /ul (Negative); Protein-Dipstick 15 mg/dl (Negative); Urine Bilirubin Dipstick Negative (Negative); Urine Clarity Clear (Clear); Urine Urobilinogen Normal (Normal)
[2020-07-09 14:00] LABS: Anion Gap 5 (5-15); BUN 18 mg/dL (7-18); BUN/Creat Ratio 10.9 RATIO (10-20); Calcium,Total 8.9 mg/dL (8.5-10.1); Chloride 106 mmol/L (98-107); Creatinine, Serum 1.65 mg/dL (0.55-1.02); EST Glomerular Filtration Rate 32 mL/min (>60); Est Glom Filt Rate - Afr Amer 39 mL/min (>60); Glucose 128 mg/dL (74-106); Potassium 4.3 mmol/L (3.5-5.1); Sodium Level 141 mmol/L (136-145)
== END 2020-07-09 18:00 | disposition home or self-care (01) ==
LOC: HHLAB 13:23
PROVIDERS: PCP Internal Medicine; Visit Provider Internal Medicine
DX: N17.9 Acute kidney failure, unspecified (principal); I13.0 Hypertensive heart and chronic kidney disease with heart failure and stage 1 through stage 4 chronic kidney disease, or unspecified chronic kidney disease; E11.22 Type 2 diabetes mellitus with diabetic chronic kidney disease; N18.30 Chronic kidney disease, stage 3 unspecified; I50.9 Heart failure, unspecified; N39.0 Urinary tract infection, site not specified
CPT/HCPCS: 80048; 81002; 87086; 87088

== ENCOUNTER → 2020-07-27 06:17 | Outpatient (CLI) | payer MEDICARE, SELFPAY ==
[2020-06-15 11:11] VITALS: BMI 43.8
[2020-07-27 07:21] LABS: Hematocrit 32.5 % (37-47); Hemoglobin 9.8 g/dL (12.0-15.0); Mean Corp Hgb Conc 30.2 g/dL (32-36); Mean Corpuscular Hgb 27.9 pg (27.0-32.0); Mean Corpuscular Volume 92.6 fL (81-99); Mean Platelet Vol. 10.1 fl (6.2-12.0); Platelet Count 232 K/mm3 (150-450); RBC Distribution Width CV 16.7 % (11.6-14.6); RBC Distribution Width SD 55.8 fl (35.1-43.9); Red Blood Count 3.51 M/mm3 (4.2-5.4); White Blood Count 6.6 K/mm3 (4.4-11.0)
[2020-07-27 07:56] LABS: Albumin, Serum 3.7 g/dL (3.2-5.0); BUN 25 mg/dL (7-18); BUN/Creat Ratio 19.4 RATIO (10-20); Calcium,Total 9.4 mg/dL (8.5-10.1); Chloride 107 mmol/L (98-107); Creatinine, Serum 1.29 mg/dL (0.55-1.02); EST Glomerular Filtration Rate 43 mL/min (>60); Est Glom Filt Rate - Afr Amer 52 mL/min (>60); Glucose 156 mg/dL (74-106); Phosphorus 3.9 mg/dL (2.5-4.9); Sodium Level 140 mmol/L (136-145)
== END ==
PROVIDERS: PCP Internal Medicine; Referring Provider Internal Medicine Nephrology; Visit Provider Internal Medicine Nephrology
DX: N18.31 Chronic kidney disease, stage 3a (principal)
CPT/HCPCS: 36415; 80069; 85027

== ENCOUNTER → 2020-08-24 06:30 | Outpatient (CLI) | payer MEDICARE, SELFPAY ==
[2020-06-15 11:11] VITALS: BMI 43.8
[2020-08-24 07:12] LABS: Hematocrit 32.7 % (37-47); Mean Corp Hgb Conc 30.6 g/dL (32-36); Mean Corpuscular Hgb 27.9 pg (27.0-32.0); Mean Corpuscular Volume 91.1 fL (81-99); Mean Platelet Vol. 9.5 fl (6.2-12.0); Platelet Count 210 K/mm3 (150-450); RBC Distribution Width SD 53.5 fl (35.1-43.9); Red Blood Count 3.59 M/mm3 (4.2-5.4); White Blood Count 7.5 K/mm3 (4.4-11.0)
[2020-08-24 07:37] LABS: Albumin, Serum 3.5 g/dL (3.2-5.0); BUN 24 mg/dL (7-18); BUN/Creat Ratio 19.5 RATIO (10-20); Chloride 107 mmol/L (98-107); Creatinine, Serum 1.23 mg/dL (0.55-1.02); EST Glomerular Filtration Rate 46 mL/min (>60); Est Glom Filt Rate - Afr Amer 55 mL/min (>60); Glucose 86 mg/dL (74-106); Phosphorus 3.4 mg/dL (2.5-4.9); Potassium 4.1 mmol/L (3.5-5.1); Sodium Level 142 mmol/L (136-145)
[2020-08-24 07:51] LABS: Microalbumin,Random Urine 18.5 mg/L (NO RANGE EST.); Microalbumin:Creatinine Ratio 24.3 mg/g CRE (<30 mg/g CRE)
== END ==
PROVIDERS: PCP Internal Medicine; Referring Provider Internal Medicine Nephrology; Visit Provider Internal Medicine Nephrology
DX: D50.9 Iron deficiency anemia, unspecified (principal); I12.9 Hypertensive chronic kidney disease with stage 1 through stage 4 chronic kidney disease, or unspecified chronic kidney disease; N18.30 Chronic kidney disease, stage 3 unspecified
CPT/HCPCS: 36415; 80069; 82043; 82570; 85027

== ENCOUNTER → 2020-08-26 11:26 | Outpatient (CLI) | payer MEDICARE, SELFPAY ==
[2020-06-15 11:11] VITALS: BMI 43.8
[2020-08-26 13:44] LABS: Vitamin B12 > 2000 pg/mL (211-911)
[2020-08-26 14:04] LABS: Ferritin 48 ng/mL (8-252); Iron 54 ug/dL (50-170); Iron Binding Capacity,Total 301 ug/dL (250-450); PERCENT IRON SATURATION 17.9 % (15.0-55.0)
== END ==
PROVIDERS: PCP Internal Medicine; Visit Provider Internal Medicine Nephrology
DX: D50.9 Iron deficiency anemia, unspecified (principal)
CPT/HCPCS: 36415; 82607; 82728; 82746; 83540; 83550

== ENCOUNTER → 2020-09-24 13:28 | Outpatient (CLI) | payer MEDICARE, SELFPAY ==
[2020-06-15 11:11] VITALS: BMI 43.8
[2020-09-24] MEDS: 0.9% NaCl Peripheral Flush Adult/Peds IV (13:59)
[2020-09-24] MEDS: 0.9% NaCl IVPB Med Flush (250 mL) 15 ML IV (13:59)
[2020-09-24 14:05] VITALS: BP 105/78; PULSE 81; RESP 16; TEMP 36.6; O2SAT 98; BMI 641637.7
[2020-09-24 14:40] VITALS: BP 117/63; PULSE 72; RESP 16; TEMP 36.6
== END ==
PROVIDERS: PCP Internal Medicine; Referring Provider Internal Medicine Nephrology; Visit Provider Internal Medicine Nephrology
DX: D64.9 Anemia, unspecified (principal)
CPT/HCPCS: 96365; J1756; J7050; A4216

== ENCOUNTER → 2020-10-01 13:25 | Outpatient (CLI) | payer MEDICARE, SELFPAY ==
[2020-06-15 11:11] VITALS: BMI 43.8
[2020-09-24 14:05] VITALS: BMI 641637.7
[2020-10-01] MEDS: 0.9% NaCl Peripheral Flush Adult/Peds IV (14:08)
[2020-10-01] MEDS: 0.9% NaCl IVPB Med Flush (250 mL) 15 ML IV (14:08)
[2020-10-01 14:09] VITALS: BP 126/57; PULSE 73; RESP 16; TEMP 35.9; O2SAT 98; BMI 43.8
== END ==
PROVIDERS: PCP Internal Medicine; Referring Provider Internal Medicine Nephrology; Visit Provider Internal Medicine Nephrology
DX: D64.9 Anemia, unspecified (principal)
CPT/HCPCS: 96365; J1756; J7050; A4216

== ENCOUNTER → 2020-10-08 13:25 | Outpatient (CLI) | payer MEDICARE, SELFPAY ==
[2020-06-15 11:11] VITALS: BMI 43.8
[2020-10-01 14:09] VITALS: BMI 43.8
[2020-10-08 13:36] VITALS: BP 120/67; PULSE 74; RESP 18; TEMP 35.9; O2SAT 95
[2020-10-08] MEDS: 0.9% NaCl Peripheral Flush Adult/Peds IV (13:47)
[2020-10-08] MEDS: 0.9% NaCl IVPB Med Flush (250 mL) 15 ML IV (13:51)
[2020-10-08 14:40] VITALS: BP 132/67; PULSE 77; TEMP 36.2
== END ==
PROVIDERS: PCP Internal Medicine; Referring Provider Internal Medicine Nephrology; Visit Provider Internal Medicine Nephrology
DX: D64.9 Anemia, unspecified (principal)
CPT/HCPCS: 96365; J1756; J7050; A4216

== ENCOUNTER → 2020-10-12 12:25 | Outpatient (CLI) | payer MEDICARE, SELFPAY ==
[2020-06-15 11:11] VITALS: BMI 43.8
[2020-10-01 14:09] VITALS: BMI 43.8
[2020-10-12] MEDS: 0.9% NaCl Peripheral Flush Adult/Peds IV (12:43)
[2020-10-12] MEDS: 0.9% NaCl IVPB Med Flush (250 mL) 15 ML IV (12:44)
[2020-10-12 12:46] VITALS: BP 118/79; PULSE 79; RESP 16; TEMP 36.4; O2SAT 95; BMI 43.8
[2020-10-12 13:36] VITALS: BP 119/66; PULSE 67
== END ==
PROVIDERS: PCP Internal Medicine; Referring Provider Internal Medicine Nephrology; Visit Provider Internal Medicine Nephrology
DX: D64.9 Anemia, unspecified (principal)
CPT/HCPCS: 96365; J1756; J7050; A4216

== ENCOUNTER → 2020-10-14 13:59 | Outpatient (CLI) | payer MEDICARE, SELFPAY ==
[2020-06-04 14:01] VITALS: BMI 44.7
[2020-10-12 13:47] VITALS: BMI 43.2
--- NOTE | 2020-10-14 14:00 | ECHOD_ITS ---
Reason For Study: DYSPNEA/SOB Procedure This was a 2D Doppler, Color Flow transthoracic echocardiogram. The study was technically difficult. Due to body habitus and respiratory interference. Exam performed portable in patient room. Left Ventricle Normal LV size. Left ventricular systolic function is normal. The estimated ejection fraction is 55 %. There is evidence of diastolic dysfunction. No regional wall motion abnormalities noted. Right Ventricle Normal RV size. A moderator band is seen in the right ventricle. Normal systolic function. Atria The left atrium is mildly enlarged. Normal right atrium. No doppler evidence for ASD. Mitral Valve There is no mitral annular calcification. Normal mitral valve. Trivial mitral valve insufficiency. Tricuspid Valve Normal tricuspid valve. Trivial tricuspid valve insufficiency. Unable to estimate RV systolic pressure/pulmonary artery pressure due to technically difficult study. Aortic Valve The aortic valve is not well visualized. Pulmonic Valve The pulmonic valve is not well visualized. Trivial pulmonic valve insufficiency. Great Vessels Normal sized aortic root. Pericardium/Pleural No pericardial effusion. MMode/2D Measurements & Calculations LVIDd: 4.6 cm IVSd: 0.88 cm Ao root diam: 3.1 cm LVIDs: 2.9 cm LVPWd: 1.1 cm FS: 35.2 % LAV(MOD-bp): 71.6 ml LA A4 area: 22.6 cm2 LA dimension(2D): 4.4 cm LAV(MOD-bp) Indexed: 36.2 ml/m2 LAV(MOD-sp2): 63.3 ml LAV(MOD-sp4): 74.8 ml RA A4 area: 15.9 cm2 Time Measurements MV dec time: 0.25 sec Doppler Measurements & Calculations MV E max guy: 78.7 cm/sec Lat Peak E' Guy: 5.0 cm/sec Med Peak E' Guy: 6.8 cm/sec MV A max guy: 96.6 cm/sec E/E' lat: 15.6 E/E' med: 11.5 MV E/A: 0.82 Ao V2 max: 130.6 cm/sec LV V1 max: 89.4 cm/sec PA V2 max: 101.5 cm/sec Ao max P.8 mmHg LV V1 max P.2 mmHg Interpretation Summary The study was technically difficult. Left ventricular systolic function is normal. The estimated ejection fraction is 55 %. A moderator band is seen in the right ventricle. The left atrium is mildly enlarged. Trivial mitral valve insufficiency. Trivial tricuspid valve insufficiency. Trivial pulmonic valve insufficiency. Unable to estimate RV systolic pressure/pulmonary artery pressure due to technically difficult study. There is evidence of diastolic dysfunction. Ordering Physician: Noah Kraft Referring Physician: Jesus Davila Performed By: Molly Caruso, VERONIQUE, RVT
== END ==
PROVIDERS: PCP Internal Medicine; Referring Provider Internal Medicine Cardiovascular Disease; Visit Provider Internal Medicine Cardiovascular Disease
DX: Z01.810 Encounter for preprocedural cardiovascular examination (principal); I25.10 Atherosclerotic heart disease of native coronary artery without angina pectoris; I11.0 Hypertensive heart disease with heart failure; I50.32 Chronic diastolic (congestive) heart failure; E78.00 Pure hypercholesterolemia, unspecified
CPT/HCPCS: 93306

== ENCOUNTER → 2020-10-15 13:22 | Outpatient (CLI) | payer MEDICARE, SELFPAY ==
[2020-06-15 11:11] VITALS: BMI 43.8
[2020-10-12 13:47] VITALS: BMI 43.2
[2020-10-15 13:35] VITALS: BP 134/59; PULSE 75; RESP 16; TEMP 36.8; O2SAT 94; BMI 42.3
[2020-10-15] MEDS: 0.9% NaCl Peripheral Flush Adult/Peds IV (13:41)
[2020-10-15] MEDS: 0.9% NaCl IVPB Med Flush (250 mL) 15 ML IV (13:47)
[2020-10-15 14:46] VITALS: BP 128/67; PULSE 78
== END ==
PROVIDERS: PCP Internal Medicine; Referring Provider Internal Medicine Nephrology; Visit Provider Internal Medicine Nephrology
DX: D64.9 Anemia, unspecified (principal)
CPT/HCPCS: 96365; J1756; J7050; A4216

== ENCOUNTER 2020-10-20 16:18 | Inpatient (IN) | payer MEDICARE, SELFPAY ==
[2020-09-24 14:05] VITALS: BMI 641637.7
--- NOTE | 2020-09-30 12:36 | HP.PCM_ITS ---
History and Physical History and Physical [facility] Patient Name: Jody Reece : 1945 From: NINA NORRIS PA-C DATE OF SURGERY: 10/20/2020 SCHEDULED PROCEDURE: right total hip arthroplasty HISTORY OF PRESENT ILLNESS: Preoperative history and physical exam was performed on September 29, 2020. In her right hip for several years. She states her hip pain has been getting more severe. She has pain that is aching, sharp, stabbing, sore. Pain is increased going up and down stairs. Patient has difficult time getting dressed, doing housework, and shopping secondary to hip pain. She has tripped/stumbled due to the pain. She is unable to go down stairs due to the pain. She has been using Altair by the primary care physician for pain control. She states her activities of daily living and disability associated with her bilateral hip pain has been getting progressively been worse. She denies recent trauma or injury. She has previous history of a bariatric gastric sleeve surgery in 2019. She has been using a walker and cane for ambulatory assistance. She has a medical history infected mesh from hernia surgery that required abdominal surgery. She has been cleared by the surgeon with regards to this infected area. This surgery was done in June 2020. Obtaining clearance from the primary care physician Dr. Davila, Dr. Kraft patient's twx operator. Patient has medical history pertinent for sleep apnea in which she uses a BiPAP machine, hypertension, hyperlipidemia, fatty liver disease, type 2 diabetes mellitus, depression,, previous history of heart catheterization 2017. She also states she is getting iron infusions from the produce runner. She did receive 1 unit of packed red blood cells after her hernia mesh revision in June 2020. Patient currently denies any chest pain, shortness of breath, fevers chills, recent infections. After failing conservative measures and discussing treatment options with Dr. J Carlos Bush, the patient does wish to proceed with a right total hip arthroplasty. REVIEW OF SYSTEMS: ROS: Const: Denies change in appetite, fever and weight change. CV: Denies chest pain, heart murmur and irregular heartbeat. Resp: Denies cough, pneumonia, shortness of breath, tuberculosis and wheezing. GI: Denies constipation, diarrhea, heartburn, nausea, rectal itching, bloody stools and vomiting. : Denies incontinence. Musculo: Denies leg swelling, pain, trouble walking and weakness. Skin: Denies Raynaud's, history of shingles and tattoo. Neuro: Denies ambulatory dysfunction, dizziness, numbness/tingling and tremor. Psych: Denies anxiety, insomnia and stress. Kd/Lymph: Denies anemia, bleeding/bruising tendency and past transfusion. Reviewed, no changes. PAST MEDICAL HISTORY: Advance Care Plan: Other Directive, POA Effective Date: 05/27/2020 PMH: Medical Problems: Edema, Sleep Apnea, Hard Of Hearing, Arteriosclerotic Heart Disease, Hypertension, Myalgia, Hyperlipidemia Heart Failure - with Preserved ejection fraction Fatty LIver Dyspnea - unspecified Osteoporosis - of right hip Arthritis - degenerative arthritis of hip Trochanteric Bursitis - of right hip Cancer - Thyroid Diabetes - uncontrolled type 2 diabetes mellitus with nephropathy Depression Accidents: None Surgical Hx: Kidney - (03/10/1991) removal of right kidney lesion, Dr. Lara [facility] Hysterectomy - (05/20/2001) Appendectomy, Cholecystectomy, Umbillical Hernia & Bladder Suspension Dr. Mera, Dr.R. Winn, Dr. Collin Hernandez - [place], [place] Umbilical Hernia Repair & Tummy Tuck - (01/17/2002) Dr. Collin Hernandez, [place], [place] Hernia Repair - (09/14/2006) 7 Repairs, Dr. Airam Henry [facility] Bowel Obstruction, Umbilical Hernia - (06/10/2007) Dr. Henry [facility] Thyroidectomy - (08/23/2010) Dr Blair Ibrahim [facility] Knee Replacement RT - (06/12/2012) Dr. Kumar Mora [facility] Knee Replacement LT - (08/18/2014) Dr. Kumar Mora [facility] Cataract Lens Implant - (2016) Bilat Dr. Surinder Chen [facility] Sebaceous Cyst Removal - (07/08/2017) Dr. Kalina Henry [facility] Bowel Obstruction - 10/25/2018 Dr. Naranjo [facility] 05/11/2019 [facility] Bariatric Gastric Sleeve - (03/10/2019) Dr. Blair Lo [facility] Hernia Mesh Revision - (06/24/2020) Anesthesia Complications: None Assistive Devices: Glasses, Hearing Aid Reviewed and updated. 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 Personal Habits: Cigarette Use: Former - End Date: 1991.Smokeless Tobacco: Never Used Smokeless Tobacco.E-Cigarette Use: Never used.Alcohol: Occasionally.Drug Use: Denies Use.Enjoy Exercising: Occasionally. Reviewed and updated. VITALS: Ht: 65.5 Wt: 220lb Wt k.792 BMI: 36.0 BP: 126/84 Pulse: 76 Resp: 16 T: 96.5 T: 35.8C Pain Level: 4 ALLERGIES: Cephalexin - affected kidneys Ciprofloxacin - affected kidneys Crestor - intolerance Keflex - hives Lantus - burning at local injection site Nickel - rash Pravastatin - muscle cramps Ketorolac - hives Palladium - rash MEDICATIONS: Aspirin 81 81 mg 1 pill a day by mouth, Benadryl Allergy 25 mg as needed, Citrical Max Plus D3 1 tab daily, Colace 100 mg 1 by mouth once a day, Bipap 15/9 cm of water, Cymbalta 30 mg 1 by mouth every day, Flonase Allergy Relief 50 mcg/Act one spray as needed, Furosemide 20 mg 1 by mouth every day, Gabapentin 300 mg 1 by mouth three times a day, Altair 10-325 mg 1 tab twice daily as needed pain, Levemir 100 Unit/ML inject 19 units subcutaneously in the morning and 21 units in the evening, Synthroid 150 mcg 1 tab daily + 1/2 tab on Sunday, Lisinopril 2.5 mg 1 tab as needed, Melatonin 10 mg 1 tab as needed, Lopressor 25 mg 1 tab if BP is over 130, Miralax 17 gm 1 packet once a day, Multivitamin 1 by mouth every day, Nitroglycerin 0.4 mg 1 tab under tongue as needed, Novolog Flexpen 100 Unit/ML Take for B-9 unites, L-6 unites, D-9 Units, Sn-6 units plus s, Protonix 20 mg take one tab twice daily, Amitriptyline HCL 25 mg 1 daily, Diclofenac Sodium 1 % up to 4 times daily, Ferrous Sulfate 325 (65 Fe) MG 2 tablets daily PRE-OP EXAM: General appearance:NORMAL Other: Eyes: Conjunctivae and lids: NORMAL Pupils: ERR Ears, Nose, Mouth, and Throat: NORMAL Other: Inspection of lips, teeth and gums: NORMAL Other: Neck: Examination of neck: no masses noted. Respiratory: Assessment of respiratory effort: NORMAL Other: Auscultation of lungs: clear to auscultation no wheezes, rhonchi or rales. Cardiovascular: Auscultation of heart: regular rate and rhythm, no murmurs, gallops or rubs. Exam of carotid arteries: NORMAL Other: Gastrointestinal: Exam of abdomen: soft, nontender, nondistended bowel sounds present. PHYSICAL EXAMINATION: Patient presents today using a walker. She has tenderness to palpation over the right lateral hip. Right hip is cool to touch without erythema. Right hip has a 20 flexion contracture, flexion 45, internal rotation 5, and external rotation 15. There is previous surgical incision over the abdomen without signs of infection. IMAGING STUDIES: Previous right hip x-rays reveal joint space narrowing, subchondral sclerosis, osteophyte formation consistent with severe stage IV osteoarthritis with associated bony erosions and cysts in the acetabulum IMPRESSION: 1. Severe right hip osteoarthritis 2. Hypertension 3. Type 2 diabetes mellitus 4. Chronic kidney disease stage III 5. Dyspnea 6. Obstructive sleep apnea 7. Hyperlipidemia 8. Depression 9. Anemia PLAN: Dr. J Carlos Bush did discuss and review with the patient all treatment options including surgical versus nonsurgical options. Patient does wish to proceed with the above-stated procedure. Potential risks, benefits, and complications of the procedure were discussed in detail including but not limited to , infection, nerve and blood vessel damage, persistent pain, numbness, tingling, paresthesias, blood clot, pulmonary embolism, and requirement for possible further surgery. The patient expressed full understanding and has no further questions for the doctor. Patient does agree to proceed with the above-stated procedure and has signed the surgery consent form. We discussed the current risks associated with COVID 19. This does include the risk of exposure while in the hospital. Patient was reassured local hospitals have low infection rates and are taking all necessary precautions to avoid exposure to patients. In addition, we discussed strategies that can be used to help limit exposure including those that limit the patient's time in the hospital. Also using strategies to limit the patient's need for continued inpatient services after being discharged from the hospital. Patient was notified that we will need to comply with any screening or testing the hospital wishes to perform or that surgery may be delayed for any positive results. This dictation was created using voice recognition software. Phonetic and/or grammatical errors may exist. ___ I have re-examined the patient. There are no clinical changes since date of exam. ___ See progress notes for changes. ___ Dictated on admission Date: Time: Signature:
--- NOTE | 2020-10-04 13:52 | EKG12_ITS ---
Test Reason : PREOP Blood Pressure : / mmHG Vent. Rate : 080 BPM Atrial Rate : 080 BPM P-R Int : 194 ms QRS Dur : 088 ms QT Int : 398 ms P-R-T Axes : 044 -60 010 degrees QTc Int : 459 ms Normal sinus rhythm Left axis deviation Low voltage QRS Inferior infarct , age undetermined Abnormal ECG Confirmed by ZAK LOPEZ, SERENE ([id number]), scientific publications editor YVONNE ESCALERA ([id number]) on 10/05/2020 10:56:04 AM Referred By: J Carlos Bush Confirmed By:SERENE CRESPO MD
[2020-10-04 15:05] LABS: Absolute Lymphocyte Count 2.31 X10^3/uL (0.83-4.51); Absolute Neutrophil Count 3.5 X10^3/uL (2.0-7.7); Basophil# 0.04 X10^3/uL; Basophil% 0.6 % (0-1); Eosinophil# 0.13 X10^3/uL; Hematocrit 34.2 % (37-47); Hemoglobin 10.7 g/dL (12.0-15.0); Lymphocyte # 2.31 X10^3/ul (4.0); Lymphocyte % 34.9 % (19-41); Mean Corp Hgb Conc 31.3 g/dL (32-36); Mean Corpuscular Hgb 28.8 pg (27.0-32.0); Mean Corpuscular Volume 91.9 fL (81-99); Mean Platelet Vol. 10.1 fl (6.2-12.0); Monocyte# 0.58 X10^3/uL; Monocyte% 8.8 % (0-10); NRBC Flagged by Analyzer 0 % (0-5); Neutrophil # 3.51 X10^3/uL (2.7-7.7); Neutrophil % 52.9 % (47-70); Platelet Count 191 K/mm3 (150-450); RBC Distribution Width CV 16.5 % (11.6-14.6); RBC Distribution Width SD 55.2 fl (35.1-43.9); Red Blood Count 3.72 M/mm3 (4.2-5.4); White Blood Count 6.6 K/mm3 (4.4-11.0)
[2020-10-04 15:49] LABS: Hemoglobin A1c 6.3 % (3.8-5.6)
[2020-10-04 16:10] LABS: Anion Gap 7 (5-15); BUN 24 mg/dL (7-18); BUN/Creat Ratio 17.6 RATIO (10-20); Calcium,Total 8.8 mg/dL (8.5-10.1); Chloride 104 mmol/L (98-107); Creatinine, Serum 1.36 mg/dL (0.55-1.02); EST Glomerular Filtration Rate 41 mL/min (>60); Est Glom Filt Rate - Afr Amer 49 mL/min (>60); Glucose 141 mg/dL (74-106); Sodium Level 139 mmol/L (136-145)
[2020-10-06 14:48] LABS: Thyroid Stim Hormone (TSH) 4.99 uIU/mL (0.358-3.74)
[2020-10-15 13:35] VITALS: BMI 42.3
[2020-10-19 15:08] LABS: Basophil# 0.02 X10^3/uL; Basophil% 0.3 % (0-1); Eosinophil# 0.16 X10^3/uL; Eosinophils% 2.5 % (0-5); Hematocrit 34.8 % (37-47); Hemoglobin 10.7 g/dL (12.0-15.0); Lymphocyte % 40.6 % (19-41); Mean Corp Hgb Conc 30.7 g/dL (32-36); Mean Corpuscular Hgb 28.9 pg (27.0-32.0); Mean Corpuscular Volume 94.1 fL (81-99); Mean Platelet Vol. 9.4 fl (6.2-12.0); Monocyte# 0.53 X10^3/uL; Monocyte% 8.3 % (0-10); Neutrophil # 3.03 X10^3/uL (2.7-7.7); Neutrophil % 47.2 % (47-70); Platelet Count 179 K/mm3 (150-450); RBC Distribution Width CV 17.3 % (11.6-14.6); RBC Distribution Width SD 59.2 fl (35.1-43.9); White Blood Count 6.4 K/mm3 (4.4-11.0)
[2020-10-19 15:28] LABS: Hemoglobin A1c 6.3 % (3.8-5.6)
[2020-10-19 15:42] LABS: Anion Gap 3 (5-15); BUN 19 mg/dL (7-18); BUN/Creat Ratio 14.8 RATIO (10-20); Calcium,Total 8.7 mg/dL (8.5-10.1); Chloride 106 mmol/L (98-107); Creatinine, Serum 1.28 mg/dL (0.55-1.02); EST Glomerular Filtration Rate 43 mL/min (>60); Est Glom Filt Rate - Afr Amer 53 mL/min (>60); Estimated Creatinine Clearance 35.22 ml/min; Glucose 187 mg/dL (74-106); Potassium 4.6 mmol/L (3.5-5.1); Sodium Level 138 mmol/L (136-145)
[2020-10-20] VITALS (13 sets, daily range): BP systolic 111–145; BP diastolic 53–90; PULSE 59–77; RESP 16–18; TEMP 36.2–36.6; O2SAT 93–100; BMI 44.1; BMI 41.3
[2020-10-20] MEDS: Acetaminophen 500 MG Tablet 1000 MG PO ×2 (12:26→21:20)
[2020-10-20] MEDS: Gabapentin 600 MG Tablet PO (12:26)
[2020-10-20] MEDS: Lactated Ringers 1,000 ML 999 ML IV ×2 (12:27→17:23)
[2020-10-20] MEDS: Insulin Lispro 100 UNIT/ML INSULN.PEN SC ×2 (12:43→17:21)
[2020-10-20 12:45] LABS: Bedside Glucose 194 mg/dL (70-110)
--- NOTE | 2020-10-20 15:45 | RAD_ITS ---
HISTORY: Total right inferior. Exam is for spot fluoroscopic intraoperative images of the pubic symphysis and right hip. Comparison study is a CT scan of the abdomen and pelvis from June 17, 2020. Findings: Right total hip arthroplasty has been performed. Hardware appears adequately positioned. No fractures are perceived. RAD/Hip 1 view with Pelvis IMPRESSION: Stable appearance to right total hip arthroplasty at 0230 Reported and signed by: Monroe Velasquez MD Electronically Signed: Monroe Velasquez MD at 2:29 EST Tel , Service support ,
--- NOTE | 2020-10-20 16:22 | OP.PCM_ITS ---
Report of Operation Date of Procedure: 10/20/20 Pre-Operative Diagnosis: Right hip primary osteoarthritis Post-Operative Diagnosis: Right hip primary osteoarthritis Surgery/Procedure Performed:: Right direct anterior minimally invasive total hip replacement Description of Surgical Findings:: Stable hip with equal leg lengths foam machine operator: Abdias Rosado Type of Anesthesia:: General Anesthesiologist: Rajinder Gonzalez Special Medications: Clindamycin, vancomycin, 1 g TXA at incision, 1 g TXA closure, 10 mg Decadron, joint cocktail (5 mg Duramorph, 30 mL of 0.5% Ropivicaine, 1000 units of epinephrine, 30 mg of Toradol) Specimen's removed: Bony cuts Estimated Blood Loss (mL): 400 Fluids Replaced: 1900 mL crystalloid Description of Procedure: Components used: 1. Accolade 2 Nadine femoral stem size 3 127? 2. Nadine trident 2 acetabular shell size 48 mm 3. Nadine X3 polyethylene D 4. [place] Biolox delta 36mm, -2.5mm femoral head Brief history operative indications: 75 yo F who failed conservative measures for their hip osteoarthritis. X-rays were consistent with osteoarthritis including joint space narrowing, osteophyte formation and subchondral cysts. Total hip replacement was discussed with the patient with risks and benefits including but not limited to blood loss, DVTs, PEs, neurovascular damage, dislocation, general risks of anesthesia including loss of life. Patient demonstrated an understanding medical clearance is obtained the patient was consented for surgery. Procedure: On the date of procedure the patient's R hip was marked in the preoperative area. Patient was then taken back to the operating room where anesthesia assumed control of the C-spine and airway and administered anesthetic. Patient was transferred to the operating table and placed in the supine position. The hips were placed at the break of the bed and a sacral bump was placed. The R lower extremity was then prepped out in a sterile fashion using chlorhexidine while the surgeon scrubbed. The PA was vital in the positioning of the patient. Upon reentering the room the R lower extremity was draped in the standard orthopedic fashion and the incision was marked. A timeout was called and everyone agreed upon the side, the site, the procedure be performed, antibody given, and patient's identity. At this time incision was made through skin, subcutaneous tissue, and fat down to fascia. The fascia was then incised and the TFL was retracted laterally. A retractor was placed on the lateral border of the femoral neck. Attention was directed to the inferior portion of the approach and all crossing vessels were identified and appropriately coagulated. A retractor was then placed on the medial portion of the femoral neck. The anterior capsule was then cleared of all soft tissue and then H shaped capsulotomy was made. The retractors were then placed inside the capsule. The femoral neck was identified and a cleanup cut was made. At this time a power corkscrew was used to remove the femoral head. Attention was then turned toward the acetabulum where the soft tissues were appropriately retracted and the acetabulum was sequentially reamed to 48 mm. A 48 mm cup was then selected and impacted into place. Acetabular liner was impacted into place and locking mechanism was verified. The position of the acetabular cup was then verified under live fluoroscopy. Attention was then turned to the femur. Soft tissue releases on the medial and lateral femoral neck were appropriately done, the leg was externally rotated and lateralized. A Morrison retractor was placed medially and proximally to the greater trochanter this allowed appropriate visualization and exposure of the femoral canal. Rongeour was then used to remove excess lateral bone. A canal finder and entry broach were used to open the proximal canal. Once we verified we were down the femoral canal we subsequently broached up to a size 3 femur. The appropriate neck was placed in the previously selected head was trialed with a -2.5 mm neck. Traction was pulled and the hip was reduced with internal rotation. Once it was appropriately reduced and stability was checked. There was minimal shuck, equal leg lengths and appropriate stability with hyperextension and external rotation as well as with 90? flexion and internal rotation. Fluoroscopy was then also used to verify the position of the components and leg lengths using the contralateral side for comparison. The trial components were then dislocated the proximal femur was again exposed and the components were removed from the wound. The final components were verified and opened. The wound was copiously irrigated out with normal saline. The acetabulum was checked for any residual debris. The final components were placed and impacted. Traction and internal rotation were again used to reduce the hip. After adequate reduction the hip remained stable with appropriate leg lengths. The final components were once again checked with live fluoroscopy and were found to be satisfactory. The wound was then copiously irrigated with normal saline once more, and hemostasis was obtained. Closure was then done using #1 Vicryl runner to close the fascia. A 2-0 vicryl interuppted sutures were used to close the subcutaneous skin. A 3-0 Monocryl and Steri-Strips were used for final skin closure. A Silverlon dressing was placed. Patient was awakened by anesthesia and transferred to the [facility]. Patient was then transferred to the PACU for recovery. Postoperative plan: Patient will get 24 hours postop antibiotics. Patient will get in-house physical therapy and will be weight-bear as tolerated. Patient will follow up in office in 2 weeks for a wound check and x-rays. Aspirin 81 mg twice daily. Due to patient's numerous risk factors and abdominal surgeries will place the patient on 1 week of doxycycline upon discharge for preventative measures. During the course of the procedure the physician cnc mill operator (PE) played a vital role. Their intimate knowledge of my steps in the procedure aided in safe and expedient completion of the procedure. The PE played a vital rolls in positioning particularly in obtaining the appropriate positioning of the sacral bump. The PE was also vital in the retraction of soft tissues during the exposure and especially the femoral work as this is a vital part of the procedure to prevent complications and fractures. The PE was also vital and protecting soft tissues during times of bony cuts and reaming. He also played a vital role in closure with my direct supervision. The PE was also important during reduction and dislocation of the joint and trials intraoperatively. - Complications No intraoperative complications - Admit VTE Documentation VTE Present on Admission: No VTE Mechan Device Prophylaxis: SCD's, Thigh High ANTONINA Hose VTE Pharm Prophylaxis ordered?: Yes
--- NOTE | 2020-10-20 17:12 | RAD_ITS ---
STUDY: X-RAY - PELVIS AND RIGHT HIP REASON FOR EXAM: Female, 75 years old. POST OP TECHNIQUE: 2 views of the pelvis and hip. COMPARISON: CT of abdomen and pelvis dated June 17, 2020 FINDINGS: Status post surgical resection of the femoral head and neck. The proximal one third femoral prosthetic component is well placed within the intramedullary cavity as well as the acetabular cup. Both prosthetic components demonstrate good bony contact and alignment. Expected postoperative changes of the overlying soft tissues including gas and swelling. Surgical mil are also present. RAD/Hip Min 2 Views (Portable) IMPRESSION: Status post right hip arthroplasty Electronically Signed: Dequan Rose MD at 17:42 EST , Service support ,
[2020-10-20 17:21] LABS: Bedside Glucose 204 mg/dL (70-110)
[2020-10-20] MEDS: Scopolamine 1mg/72hr Patch 1 PATCH TD (17:28)
[2020-10-20] MEDS: Lactated Ringers 1,000 ML 125 ML IV ×2 (17:51→21:33)
--- NOTE | 2020-10-20 20:07 | PN_ITS ---
Subjective: Patient is a 75 y/o with a PMH as outlined who was admitted by the orthopedic service for right hip replacement o/a of right hip osteoarthritis. Hospitalist service was consulted for medical management. Today is POD 1. Patient was seen after surgery. Pain was well controlled and she had no complaints. She has a PMH of hypertension, CKD stage III and type 2 diabetes mellitus as well as ABDI. Vitals/I&O's: Vital Signs Temp Pulse Resp BP Pulse Ox 97.2 F L 71 16 117/53 L 96 10/20/20 19:03 10/20/20 19:03 10/20/20 19:03 10/20/20 19:03 10/20/20 19:15 Oxygen Flow Rate (L/min) 6 Oxygen Delivery Method Room Air Weight: 225 lb 15.581 oz Body Mass Index (BMI) 44.1 Finger Stick Blood Glucose 204 Intake and Output for Last 24 Hours 10/18/20 10/19/20 10/20/20 23:59 23:59 23:59 Intake Total 3962 / 3962 Balance 3962 / 3962 General: Alert, Oriented x3, Cooperative, No apparent distress HEENT: Atraumatic, PERRLA, EOMI, Normocephalic Oral: Moist Mucosa Neck: Supple, No JVD, Negative Carotid Bruits Lungs: Clear to auscultation, Normal air movement, No rhonchi, No wheeze Cardiovascular: Regular rate, Regular Rhythm, Normal S1, Normal S2, No murmurs Abdomen: Bowel Sounds Present, Soft, Non Tender, Non-Distended, No Hepato- splenomegaly Extremities: No clubbing, No cyanosis, No edema, Capillary Refill Less than 3 Seconds Skin: No rashes, No breakdown Musculoskeletal: - - dressing over right hip intact Lymphatic: No Cervical, Supraclavicular, or Inguinal Adenopathy Neurological: Cranial nerves II-XII grossly intact, Neuro grossly intact, Motor Exam 5/5 strength throughout Psych/Mental Status: Normal Affect, Appropriate, Alert and oriented to time, place, person, mood and affect Microbiology Past 72 Hours 10/19/20 14:37 Swab (Method) Nasal Screen MRSA/MSSA - Final 10/19/20 14:40 Interface Orders SARS-CoV-2 Antigen (Rapid) - Final Laboratory Results 10/20/20 12:01: POC Glucose 194 H 10/20/20 17:14: POC Glucose 204 H Current Medications Acetaminophen (Acetaminophen 500 Mg Tablet) 1,000 mg PO Q8 [facility] Amitriptyline HCl (Amitriptyline 25 Mg Tablet) 25 mg PO QHS [facility] Aspirin (Aspirin 81 Mg Tab.Chew) [facility] Calcium/Vitamin D (Calcium Carb/Vitamin D 1 Tablet Tablet) 1 tablet PO BIDCM [facility] Diphenhydramine HCl (Diphenhydramine 25 Mg Capsule) 25 mg PO DAILY PRN PRN Reason: ITCHING Doxycycline Monohydrate (Doxycycline 100 Mg Capsule) 100 mg PO BID [facility] Duloxetine HCl (Duloxetine Hcl 60 Mg Capsule) 60 mg PO DAILY [facility] Enteral Nutritional Formula (Ensure Surgery 237 Ml Liquid) 237 ml PO TIDCM [facility] Famotidine (Famotidine 20 Mg Tablet) 20 mg PO DAILY [facility] Ferrous Sulfate (Ferrous Sulfate 325 Mg Tablet) 325 mg PO DAILY@1200 [facility] Fluticasone Propionate (Fluticasone 0.05% 1 [place] Nasal.Sry) 2 spray NASAL DAILY PRN PRN Reason: ALLERGIES Furosemide (Furosemide 20 Mg Tablet) 20 mg PO BID PRN PRN Reason: Swelling Gabapentin (Gabapentin 300 Mg Capsule) [facility] Lactated Ringer's () 1,000 mls @ 125 mls/hr IV .Q8H [facility] Stop: 10/20/20 23:59 Last Infusion: 10/20/20 17:51 Dose: Infused Documented by: Lactated Ringer's () 1,000 mls @ 125 mls/hr IV .Q8H [facility] Clindamycin Phosphate 600 mg/ (Dextrose) 54 mls @ 100 mls/hr IV Q6H [facility] Stop: 10/21/20 09:03 Sodium Chloride () 250 mls @ 15 mls/hr IV .[id number] PRN PRN Reason: Saline Flush Sodium Chloride () 250 mls @ 15 mls/hr IV .[id number] PRN PRN Reason: Additional IVPB Infusion Ketorolac Tromethamine (Ketorolac 15 Mg/Ml Vial) 15 mg IV Q6H PRN PRN PRN Reason: Pain Score 1-5 Stop: 10/22/20 16:19 Levothyroxine Sodium (Levothyroxine 150 Mcg Tablet) 150 mcg PO .COMPLEX [facility] Melatonin (Melatonin 10 Mg Tablet) 10 mg PO QHS PRN PRN Reason: SLEEP Metoprolol Tartrate (Metoprolol Tartrate 25 Mg Tablet) 25 mg PO BID [facility] Morphine Sulfate (Morphine 2 Mg/Ml Syringe) 2 - 4 mg IV Q2H PRN PRN PRN Reason: Pain Score 4-10 Non-Formulary Medication (Insulin Aspart [Novolog Flexpen]) 5 units SC 4X/DAY [facility] Non-Formulary Medication (Insulin Detemir [Levemir Flextouch]) 17 unit SC BID [facility] Ondansetron HCl (Ondansetron 4 Mg/2 Ml Vial) 4 mg IV Q8H PRN PRN PRN Reason: NAUSEA Oxycodone HCl (Oxycodone 5 Mg Tablet) 5 - 10 mg PO Q4H PRN PRN PRN Reason: Pain Score 4-10 Pantoprazole Sodium (Pantoprazole Sodium 20 Mg Tablet) 20 mg PO BID [facility] Polyethylene Glycol (Polyethylene Glycol 3350 17 Gm Packet) 17 gm PO DAILY [facility] Promethazine HCl (Promethazine 25 Mg/Ml Syringe) 12.5 mg IM Q6H PRN PRN; Protocol PRN Reason: NAUSEA/VOMITING Senna/Docusate Sodium (Senna/Docusate Sodium 1 Tablet) 2 tablet PO BID [facility] Sodium Chloride (0.9% Saline Lock 10 Ml Syringe) 10 - 40 ml IV UD PRN PRN Reason: SALINE FLUSH STROKE Vital Signs/Narrative: Vital Signs Temp Pulse Resp BP Pulse Ox 10/20/20 19:15 96 10/20/20 19:03 97.2 F L 71 16 117/53 L 100 10/20/20 18:26 97.5 F L 70 16 113/63 100 10/20/20 18:15 71 16 125/65 H 100 10/20/20 18:00 70 16 134/69 H 100 10/20/20 17:44 73 16 128/77 H 100 10/20/20 17:29 70 16 121/89 H 100 10/20/20 17:14 70 16 138/75 H 100 10/20/20 16:59 77 18 145/87 H 99 Medical Necessity - Tobacco Use Smoking Status: Former smoker Assessment/Plan All Active Problems (Last Reviewed 10/12/20 @ 13:49 by Gabbie Matos TOURIST CAMP ATTENDANT, TOURIST CAMP ATTENDANT- C) Infected prosthetic mesh of abdominal wall (Acute) Infected hernioplasty mesh (Acute) Diverticulitis large intestine (Acute) Confusion (Resolved) Dehydration (Resolved) Dyspnea (Resolved) Fever (Resolved) UTI (lower urinary tract infection) (Resolved) #Right hip osteoarthritis s/p right replacement * today is POD 1 * orthopedics on board. * on tylenol, toradol and oxycodone as well as morphine prn for pain * PT/OT on board * fall precautions * on clindamycin, per orthopedics * #Hypertension: on [id number] #Hypothyroidism: on synthroid. TSH is 4.99 # Type 2 diabetes mellitus: ISS. on insulin levemir 17 units BID. accuchecks ACHS DVT prophylaxis: as per primary team orthopedics. Thanks for the courtesy of the consult. We will continue to follow with you. Inpatient E&M: [id number] Subs Hosp L2
[2020-10-20] MEDS: Amitriptyline 25 MG Tablet PO (21:19)
[2020-10-20] MEDS: Aspirin 81 MG TAB.CHEW PO (21:19)
[2020-10-20] MEDS: Pantoprazole Sodium 20 MG Tablet PO (21:19)
[2020-10-20] MEDS: Senna/Docusate Sodium 1 Tablet 2 TABLET PO (21:19)
[2020-10-20] MEDS: Metoprolol Tartrate 25 MG Tablet PO (21:21)
[2020-10-20] MEDS: CLARIFY ORDER NOTE (23:59)
[2020-10-21] MEDS: CLARIFY ORDER NOTE ×2 (00:01)
[2020-10-21 03:00] VITALS: BP 163/72; PULSE 58; RESP 16; TEMP 36.7; O2SAT 94
[2020-10-21] MEDS: Acetaminophen 500 MG Tablet 1000 MG PO ×3 (05:14→21:18)
[2020-10-21 05:54] LABS: Hematocrit 30.4 % (37-47); Hemoglobin 9.3 g/dL (12.0-15.0); Mean Corp Hgb Conc 30.6 g/dL (32-36); Mean Corpuscular Hgb 29.2 pg (27.0-32.0); Mean Corpuscular Volume 95.6 fL (81-99); Mean Platelet Vol. 9.2 fl (6.2-12.0); Platelet Count 162 K/mm3 (150-450); RBC Distribution Width CV 17.2 % (11.6-14.6); RBC Distribution Width SD 59.2 fl (35.1-43.9); Red Blood Count 3.18 M/mm3 (4.2-5.4); White Blood Count 11.2 K/mm3 (4.4-11.0)
[2020-10-21 06:19] LABS: Anion Gap 8 (5-15); BUN 20 mg/dL (7-18); BUN/Creat Ratio 12.7 RATIO (10-20); Calcium,Total 8.3 mg/dL (8.5-10.1); Chloride 106 mmol/L (98-107); Creatinine, Serum 1.58 mg/dL (0.55-1.02); EST Glomerular Filtration Rate 34 mL/min (>60); Est Glom Filt Rate - Afr Amer 41 mL/min (>60); Estimated Creatinine Clearance 25.08 ml/min; Glucose 249 mg/dL (74-106); Potassium 4.5 mmol/L (3.5-5.1); Sodium Level 137 mmol/L (136-145)
[2020-10-21 07:11] LABS: Bedside Glucose 223 mg/dL (70-110)
[2020-10-21 09:00] VITALS: BP 134/59; PULSE 74; RESP 18; TEMP 37.1; O2SAT 92
[2020-10-21] MEDS: Gabapentin 300 MG Capsule 600 MG PO ×2 (10:18→18:04)
[2020-10-21] MEDS: DULoxetine Hcl 60 MG Capsule PO (10:18)
[2020-10-21] MEDS: Ensure Surgery 237 ML LIQUID PO ×3 (10:18→18:04)
[2020-10-21] MEDS: Aspirin 81 MG TAB.CHEW PO ×2 (10:18→18:03)
[2020-10-21] MEDS: Polyethylene Glycol 3350 17 GM PACKET PO (10:18)
[2020-10-21 10:19] VITALS: BP 134/59; PULSE 74
[2020-10-21] MEDS: Famotidine 20 MG Tablet PO (10:19)
[2020-10-21] MEDS: Doxycycline 100 MG CAPSULE PO ×2 (10:19→21:18)
[2020-10-21] MEDS: Senna/Docusate Sodium 1 Tablet 2 TABLET PO (10:19)
[2020-10-21] MEDS: Calcium Carb/Vitamin D 1 TABLET Tablet PO ×2 (10:19→18:04)
[2020-10-21] MEDS: Pantoprazole Sodium 20 MG Tablet PO ×2 (10:19→21:19)
[2020-10-21] MEDS: Metoprolol Tartrate 25 MG Tablet PO ×2 (10:19→21:19)
[2020-10-21] MEDS: oxyCODONE 5 MG Tablet PO ×2 (10:30→15:48)
--- NOTE | 2020-10-21 10:45 | PN_ITS ---
Subjective: Patient was seen and examined today, her diet was changed to an 1800-calorie ADA diet today. Patient has no complaints of any shortness of breath or chest discomfort at this time. - Physical Exam Vitals/I&O's: Vital Signs Temp Pulse Resp BP Pulse Ox 98.7 F 74 18 134/59 H 92 10/21/20 09:00 10/21/20 10:19 10/21/20 09:00 10/21/20 10:19 10/21/20 09:00 Oxygen Flow Rate (L/min) 6 Oxygen Delivery Method Room Air Weight: 102.6 kg Body Mass Index (BMI) 41.3 Finger Stick Blood Glucose 204 Intake and Output for Last 24 Hours 10/19/20 10/20/20 10/21/20 23:59 23:59 23:59 Intake Total 3962 / 3962 1908 / 1908 Output Total 1300 / 1300 300 / 300 Balance 2662 / 2662 1608 / 1608 General: Alert, Oriented x3, Cooperative, No apparent distress, Well developed, Well nourished HEENT: Atraumatic, PERRLA, EOMI, Normocephalic Oral: Moist Mucosa Neck: Supple, No JVD, Trachea Midline, Thyroid Normal Size and Texture Lungs: Clear to auscultation, Normal air movement, No rhonchi, No wheeze, No rales Cardiovascular: Regular rate, Regular Rhythm, Normal S1, Normal S2, No murmurs Abdomen: Bowel Sounds Present, Soft, Non Tender, Non-Distended, Obese Extremities: No clubbing, No cyanosis, Capillary Refill Less than 3 Seconds Skin: No rashes, No breakdown Neurological: Cranial nerves II-XII grossly intact, Motor Exam 5/5 strength throughout, Sensory exam intact to light touch and pain, Coordination normal Psych/Mental Status: Normal Affect, Appropriate, Alert and oriented to time, place, person, mood and affect Microbiology Past 72 Hours 10/19/20 14:37 Swab (Method) Nasal Screen MRSA/MSSA - Final 10/19/20 14:40 Interface Orders SARS-CoV-2 Antigen (Rapid) - Final Laboratory Results 10/20/20 12:01: POC Glucose 194 H 10/20/20 17:14: POC Glucose 204 H 10/21/20 05:45: WBC 11.2 H, RBC 3.18 L, Hgb 9.3 L, Hct 30.4 L, MCV 95.6, MCH 29.2, MCHC 30.6 L, RDW Std Deviation 59.2 H, RDW Coeff of Karina 17.2 H, Plt Count 162, MPV 9.2 10/21/20 05:45: Sodium 137, Potassium 4.5, Chloride 106, Carbon Dioxide 23.0, Anion Gap 8, BUN 20 H, Creatinine 1.58 H, Estim Creat Clear Calc 25.08, Est GFR (MDRD) Af Amer 41 L, Est GFR (MDRD) Non-Af 34 L, BUN/Creatinine Ratio 12.7, Glucose 249 H, Calcium 8.3 L 10/21/20 06:45: POC Glucose 223 H Current Medications Acetaminophen (Acetaminophen 500 Mg Tablet) 1,000 mg PO Q8 [facility] Last Admin: 10/21/20 05:14 Dose: 1,000 mg Documented by: Amitriptyline HCl (Amitriptyline 25 Mg Tablet) 25 mg PO QHS [facility] Last Admin: 10/20/20 21:19 Dose: 25 mg Documented by: Aspirin (Aspirin 81 Mg Tab.Chew) [facility] Last Admin: 10/21/20 10:18 Dose: 81 mg Documented by: Calcium/Vitamin D (Calcium Carb/Vitamin D 1 Tablet Tablet) [facility] Last Admin: 10/21/20 10:19 Dose: 1 tablet Documented by: Diphenhydramine HCl (Diphenhydramine 25 Mg Capsule) 25 mg PO DAILY PRN PRN Reason: ITCHING Doxycycline Monohydrate (Doxycycline 100 Mg Capsule) 100 mg PO BID [facility] Last Admin: 10/21/20 10:19 Dose: 100 mg Documented by: Duloxetine HCl (Duloxetine Hcl 60 Mg Capsule) 60 mg PO DAILY [facility] Last Admin: 10/21/20 10:18 Dose: 60 mg Documented by: Enteral Nutritional Formula (Ensure Surgery 237 Ml Liquid) 237 ml PO TIDCM [facility] Last Admin: 10/21/20 10:18 Dose: 237 ml Documented by: Famotidine (Famotidine 20 Mg Tablet) 20 mg PO DAILY [facility] Last Admin: 10/21/20 10:19 Dose: 20 mg Documented by: Ferrous Sulfate (Ferrous Sulfate 325 Mg Tablet) 325 mg PO DAILY@1200 [facility] Fluticasone Propionate (Fluticasone 0.05% 1 [place] Nasal.Sry) 2 spray NASAL DAILY PRN PRN Reason: ALLERGIES Furosemide (Furosemide 20 Mg Tablet) 20 mg PO BID PRN PRN Reason: Swelling Gabapentin (Gabapentin 300 Mg Capsule) [facility] Last Admin: 10/21/20 10:18 Dose: 600 mg Documented by: Sodium Chloride () 250 mls @ 15 mls/hr IV .[id number] PRN PRN Reason: Saline Flush Sodium Chloride () 250 mls @ 15 mls/hr IV .[id number] PRN PRN Reason: Additional IVPB Infusion Insulin Human Lispro (Insulin Lispro 100 Unit/Ml Insuln.Pen) 0 unit SC [facility]; Protocol Ketorolac Tromethamine (Ketorolac 15 Mg/Ml Vial) 15 mg IV Q6H PRN PRN PRN Reason: Pain Score 1-5 Stop: 10/22/20 16:19 Levothyroxine Sodium (Levothyroxine 150 Mcg Tablet) 150 mcg PO .COMPLEX [facility] Melatonin (Melatonin 10 Mg Tablet) 10 mg PO QHS PRN PRN Reason: SLEEP Metoprolol Tartrate (Metoprolol Tartrate 25 Mg Tablet) 25 mg PO BID [facility] Last Admin: 10/21/20 10:19 Dose: 25 mg Documented by: Morphine Sulfate (Morphine 2 Mg/Ml Syringe) 2 - 4 mg IV Q2H PRN PRN PRN Reason: Pain Score 4-10 Non-Formulary Medication (Insulin Aspart [Novolog Flexpen]) 5 units SC 4X/DAY [facility] Non-Formulary Medication (Insulin Detemir [Levemir Flextouch]) 17 unit SC BID [facility] Ondansetron HCl (Ondansetron 4 Mg/2 Ml Vial) 4 mg IV Q8H PRN PRN PRN Reason: NAUSEA Oxycodone HCl (Oxycodone 5 Mg Tablet) 5 - 10 mg PO Q4H PRN PRN PRN Reason: Pain Score 4-10 Last Admin: 10/21/20 10:30 Dose: 10 mg Documented by: Pantoprazole Sodium (Pantoprazole Sodium 20 Mg Tablet) 20 mg PO BID [facility] Last Admin: 10/21/20 10:19 Dose: 20 mg Documented by: Polyethylene Glycol (Polyethylene Glycol 3350 17 Gm Packet) 17 gm PO DAILY [facility] Last Admin: 10/21/20 10:18 Dose: 17 gm Documented by: Promethazine HCl (Promethazine 25 Mg/Ml Syringe) 12.5 mg IM Q6H PRN PRN; Protocol PRN Reason: NAUSEA/VOMITING Senna/Docusate Sodium (Senna/Docusate Sodium 1 Tablet) 2 tablet PO BID [facility] Last Admin: 10/21/20 10:19 Dose: 2 tablet Documented by: Sodium Chloride (0.9% Saline Lock 10 Ml Syringe) 10 - 40 ml IV UD PRN PRN Reason: SALINE FLUSH Medical Necessity - Tobacco Use Smoking Status: Former smoker Assessment/Plan All Active Problems (Last Reviewed 10/12/20 @ 13:49 by Gabbie Matos PACKAGING DESIGN ENGINEER, PACKAGING DESIGN ENGINEER- C) Infected prosthetic mesh of abdominal wall (Resolved) Infected hernioplasty mesh (Resolved) Diverticulitis large intestine (Resolved) Confusion (Resolved) Dehydration (Resolved) Dyspnea (Resolved) Fever (Resolved) UTI (lower urinary tract infection) (Resolved) #1 type 2 diabetes-patient was placed on sliding scale insulin per protocol, blood sugars will be monitored #2 chronic kidney disease stage III #3 essential hypertension #4 morbid obesity #5 osteoarthritis of the right hip-status post minimally invasive right hip replacement postop day #1-continue PT and OT #6 hypothyroidism OBSV E&M: [id number] Subsequent observation care L3
--- NOTE | 2020-10-21 11:01 | PN.ORTHO_ITS ---
Subjective: The patient was sitting in bedside chair upon examination. Patient denies any chest pain, shortness of breath, dizziness, lightheadedness, nausea or vomiting, or calf pain. Pain is controlled on medications. No adverse overnight events. Patient does complain of pain in the right thigh to the knee. I do feel this is associated from the surgery and retraction. Patient has been up with physical therapy already today. She is concerned about going home with outpatient therapy and would like to get home health therapy that she has had in the past. Patient's was present at today's visit and he came out into the hallway and feels that she does have some confusion since surgery. He reports that she has been on chronic narcotics and other medications from providers. He also reports that she has early onset dementia but I do not have this is one of her medical conditions in our chart. Patient has significant comorbidities as well as previous surgeries with recent mesh infection from hernia surgery in June 2020. Objective: Vital signs stable and afebrile. Patient is able to plantarflex and dorsiflex actively. Sensation is intact to light touch to saphenous, sural, superficial and deep peroneal, and tibial distribution. Dressing is clean dry and intact. Negative Homans bilaterally, negative signs and symptoms of DVT. - Physical Exam Vitals/I&O's: Vital Signs Temp Pulse Resp BP Pulse Ox 98.7 F 74 18 134/59 H 92 10/21/20 09:00 10/21/20 10:19 10/21/20 09:00 10/21/20 10:19 10/21/20 09:00 Oxygen Flow Rate (L/min) 6 Oxygen Delivery Method Room Air Weight: 102.6 kg Body Mass Index (BMI) 41.3 Finger Stick Blood Glucose 204 Intake and Output for Last 24 Hours 10/19/20 10/20/20 10/21/20 23:59 23:59 23:59 Intake Total 3962 / 3962 1908 / 1908 Output Total 1300 / 1300 300 / 300 Balance 2662 / 2662 1608 / 1608 General: Alert, Oriented x3, Cooperative, No apparent distress Microbiology Past 72 Hours 10/19/20 14:37 Swab (Method) Nasal Screen MRSA/MSSA - Final 10/19/20 14:40 Interface Orders SARS-CoV-2 Antigen (Rapid) - Final Laboratory Results 10/20/20 12:01: POC Glucose 194 H 10/20/20 17:14: POC Glucose 204 H 10/21/20 05:45: WBC 11.2 H, RBC 3.18 L, Hgb 9.3 L, Hct 30.4 L, MCV 95.6, MCH 29 .2, MCHC 30.6 L, RDW Std Deviation 59.2 H, RDW Coeff of Karina 17.2 H, Plt Count 162, MPV 9.2 10/21/20 05:45: Sodium 137, Potassium 4.5, Chloride 106, Carbon Dioxide 23.0, Anion Gap 8, BUN 20 H, Creatinine 1.58 H, Estim Creat Clear Calc 25.08, Est GFR (MDRD) Af Amer 41 L, Est GFR (MDRD) Non-Af 34 L, BUN/Creatinine Ratio 12.7, Glucose 249 H, Calcium 8.3 L 10/21/20 06:45: POC Glucose 223 H Current Medications Acetaminophen (Acetaminophen 500 Mg Tablet) 1,000 mg PO Q8 [facility] Last Admin: 10/21/20 05:14 Dose: 1,000 mg Documented by: Amitriptyline HCl (Amitriptyline 25 Mg Tablet) 25 mg PO QHS [facility] Last Admin: 10/20/20 21:19 Dose: 25 mg Documented by: Aspirin (Aspirin 81 Mg Tab.Chew) [facility] Last Admin: 10/21/20 10:18 Dose: 81 mg Documented by: Calcium/Vitamin D (Calcium Carb/Vitamin D 1 Tablet Tablet) [facility] Last Admin: 10/21/20 10:19 Dose: 1 tablet Documented by: Diphenhydramine HCl (Diphenhydramine 25 Mg Capsule) 25 mg PO DAILY PRN PRN Reason: ITCHING Doxycycline Monohydrate (Doxycycline 100 Mg Capsule) 100 mg PO BID [facility] Last Admin: 10/21/20 10:19 Dose: 100 mg Documented by: Duloxetine HCl (Duloxetine Hcl 60 Mg Capsule) 60 mg PO DAILY [facility] Last Admin: 10/21/20 10:18 Dose: 60 mg Documented by: Enteral Nutritional Formula (Ensure Surgery 237 Ml Liquid) 237 ml PO TIDCM [facility] Last Admin: 10/21/20 10:18 Dose: 237 ml Documented by: Famotidine (Famotidine 20 Mg Tablet) 20 mg PO DAILY [facility] Last Admin: 10/21/20 10:19 Dose: 20 mg Documented by: Ferrous Sulfate (Ferrous Sulfate 325 Mg Tablet) 325 mg PO DAILY@1200 [facility] Fluticasone Propionate (Fluticasone 0.05% 1 [place] Nasal.Sry) 2 spray NASAL DAILY PRN PRN Reason: ALLERGIES Furosemide (Furosemide 20 Mg Tablet) 20 mg PO BID PRN PRN Reason: Swelling Gabapentin (Gabapentin 300 Mg Capsule) [facility] Last Admin: 10/21/20 10:18 Dose: 600 mg Documented by: Sodium Chloride () 250 mls @ 15 mls/hr IV .[id number] PRN PRN Reason: Saline Flush Sodium Chloride () 250 mls @ 15 mls/hr IV .[id number] PRN PRN Reason: Additional IVPB Infusion Insulin Human Lispro (Insulin Lispro 100 Unit/Ml Insuln.Pen) 0 unit SC [facility]; Protocol Ketorolac Tromethamine (Ketorolac 15 Mg/Ml Vial) 15 mg IV Q6H PRN PRN PRN Reason: Pain Score 1-5 Stop: 10/22/20 16:19 Levothyroxine Sodium (Levothyroxine 150 Mcg Tablet) 150 mcg PO .COMPLEX [facility] Melatonin (Melatonin 10 Mg Tablet) 10 mg PO QHS PRN PRN Reason: SLEEP Metoprolol Tartrate (Metoprolol Tartrate 25 Mg Tablet) 25 mg PO BID [facility] Last Admin: 10/21/20 10:19 Dose: 25 mg Documented by: Morphine Sulfate (Morphine 2 Mg/Ml Syringe) 2 - 4 mg IV Q2H PRN PRN PRN Reason: Pain Score 4-10 Non-Formulary Medication (Insulin Aspart [Novolog Flexpen]) 5 units SC 4X/DAY [facility] Non-Formulary Medication (Insulin Detemir [Levemir Flextouch]) 17 unit SC BID [facility] Ondansetron HCl (Ondansetron 4 Mg/2 Ml Vial) 4 mg IV Q8H PRN PRN PRN Reason: NAUSEA Oxycodone HCl (Oxycodone 5 Mg Tablet) 5 - 10 mg PO Q4H PRN PRN PRN Reason: Pain Score 4-10 Last Admin: 10/21/20 10:30 Dose: 10 mg Documented by: Pantoprazole Sodium (Pantoprazole Sodium 20 Mg Tablet) 20 mg PO BID [facility] Last Admin: 10/21/20 10:19 Dose: 20 mg Documented by: Polyethylene Glycol (Polyethylene Glycol 3350 17 Gm Packet) 17 gm PO DAILY [facility] Last Admin: 10/21/20 10:18 Dose: 17 gm Documented by: Promethazine HCl (Promethazine 25 Mg/Ml Syringe) 12.5 mg IM Q6H PRN PRN; Protocol PRN Reason: NAUSEA/VOMITING Senna/Docusate Sodium (Senna/Docusate Sodium 1 Tablet) 2 tablet PO BID [facility] Last Admin: 10/21/20 10:19 Dose: 2 tablet Documented by: Sodium Chloride (0.9% Saline Lock 10 Ml Syringe) 10 - 40 ml IV UD PRN PRN Reason: SALINE FLUSH Medical Necessity - Tobacco Use Smoking Status: Former smoker Assessment/Plan All Active Problems (Last Reviewed 10/12/20 @ 13:49 by Gabbie Matos GROUP PRACTICE PEDIATRICIAN, GROUP PRACTICE PEDIATRICIAN- C) Infected prosthetic mesh of abdominal wall (Acute) Infected hernioplasty mesh (Acute) Diverticulitis large intestine (Acute) Confusion (Resolved) Dehydration (Resolved) Dyspnea (Resolved) Fever (Resolved) UTI (lower urinary tract infection) (Resolved) 1. S/P right direct anterior total hip arthroplasty POD #1 2. Continue Pain Medications: Tylenol and oxycodone 3. DVT Prophylaxis: Take 81 mg aspirin twice daily for 4 weeks postoperatively for DVT prophylaxis 4. PT/OT: Weightbearing as tolerated. I did discuss patient with physical therapist and they are in agreement that she could use some additional therapy prior to discharge. 5. H & H: 9.3/30.4, asymptomatic. Postoperative anemia secondary to acute blood loss from surgery without any intra operative complications. 6. Reactive leukocytosis: Currently 11.2, afebrile. Patient did receive Decadron intraoperatively 7. Continue postoperative medical management per medicine 8. Encouraged Incentive Spirometry 9. Disposition: I do feel patient would benefit from an additional stay for more physical therapy as well as her comorbidities. She did have some postoperative confusion and did have general anesthetic. Per patient's states that she has some early onset dementia. At this time I do feel she would benefit from home health physical therapy. Plan will be for possible discharge home tomorrow. I have reviewed the [place] Automated Rx Reporting System (OARRS) report for this patient for refill pattern and other prescriber involvement as part of the appropriate surveillance for the provision of acute and chronic controlled medications. The report was requested and reviewed on the date of this entry and was considered in the prescribing process.
--- NOTE | 2020-10-21 11:20 | CASEMGMT ---
CHRISTOPHER DRISCOLL Face to Face with patient for initial transition planning/care coordination assessment. RN YAMILA introduced self and role at [facility]. Patient sitting in chair, alert and confused, at bedside. Patient and willing to participate in assessment and is able to answer all questions appropriately. Care providers, pharmacy, and demographics verified. Patient wishes to discharge home and would like [facility]. Patient and provided a list of C providers including quality and resource use data and consistent with the patient?s preferred geographic region, medical needs, and insurance network. The patient and 's preferred provider is [facility]. CHRISTOPHER DRISCOLL sent referral to [facility] and awaiting acceptance. Patient states she has no further needs or concerns at this time. CM to follow for discharge planning needs that may arise. PCP: Giovanni Specialists: Eleazar, ortho; Ana, podiatry; Abena, intrusion analyst; Hai, section gang worker; Rebecca, hydroelectric systems technician Preferred Pharmacy: [facility] Insurance: [employer] Prescription Benefit: yes Living Will/HPOA: yes, Tim Reece LNOK: Living Arrangements: Patient lives with in a 1 story home with 3 steps and railing to enter the home. assists patient with ADLs. Transportation: DME/HHC: Patient has raised toilet, cane, walker, and bipap at home. [facility]. Disposition Plan: Patient to discharge home with C, family assistance, and follow-up plans in place. Larisa JOHNSON, RN, CM
[2020-10-21 12:31] LABS: Bedside Glucose 172 mg/dL (70-110)
[2020-10-21] MEDS: Insulin Lispro 100 UNIT/ML INSULN.PEN SC ×3 (12:38→21:21)
[2020-10-21] MEDS: Ferrous Sulfate 325 MG Tablet PO (12:39)
--- NOTE | 2020-10-21 14:10 | CASEMGMT ---
CHRISTOPHER DRISCOLL received call from [facility] and they are able to accept the patient. CHRISTOPHER DRISCOLL updated the , Tim. voiced understanding and had no further questions or concerns at home.
[2020-10-21 15:33] VITALS: BP 114/54; PULSE 80; RESP 18; TEMP 37; O2SAT 95
--- NOTE | 2020-10-21 16:09 | CASEMGMT ---
CHRISTOPHER DRISCOLL completed [place] form with patient and . RN YAMILA explained [place] form to patient, patient voiced understanding. Patient signed [place] form and filed in chart. Patient provided with copy of signed [place] form. Patient had no further questions or concerns at this time.
[2020-10-21 17:36] LABS: Bedside Glucose 182 mg/dL (70-110)
--- NOTE | 2020-10-21 18:08 | NURSING ---
PT WITH INCREASED CONFUSION THIS EVENING. CORTEXT TO DR SINGER REGARDING SAME. AWAITING RESPONSE
--- NOTE | 2020-10-21 18:37 | NURSING ---
DR SINGER HERE SEEING PT. DR ALCANTARA HAD BEEN PAGED PRIOR TO DR Cadena COMING TO FLOOR. PER BOTH MDS, WILL DC PT OXYCODONE & ORDER NORCO PRN PT TAKES AT HOME OXYCODONE MAY BE CAUSING HER CONFUSION.
[2020-10-21 21:19] VITALS: PULSE 67
[2020-10-21] MEDS: Amitriptyline 25 MG Tablet PO (21:21)
[2020-10-21 22:00] VITALS: BP 132/55; PULSE 80; RESP 18; TEMP 37.2; O2SAT 94
[2020-10-21 22:35] LABS: Bedside Glucose 168 mg/dL (70-110)
[2020-10-22] VITALS (10 sets, daily range): BP systolic 114–136; BP diastolic 54–86; PULSE 76–89; RESP 18–20; TEMP 36.4–37.6; O2SAT 91–96
[2020-10-22] MEDS: HYDROcodone Bitartrate/Apap 5/325 Tablet PO (00:31)
[2020-10-22] MEDS: MELATONIN 10 MG TABLET PO (00:32)
[2020-10-22 05:58] LABS: Hematocrit 24.9 % (37-47); Hemoglobin 7.7 g/dL (12.0-15.0); Mean Corp Hgb Conc 30.9 g/dL (32-36); Mean Corpuscular Hgb 29.2 pg (27.0-32.0); Mean Corpuscular Volume 94.3 fL (81-99); Platelet Count 144 K/mm3 (150-450); RBC Distribution Width CV 18.2 % (11.6-14.6); RBC Distribution Width SD 62.5 fl (35.1-43.9); Red Blood Count 2.64 M/mm3 (4.2-5.4); White Blood Count 9.8 K/mm3 (4.4-11.0)
[2020-10-22] MEDS: Insulin Lispro 100 UNIT/ML INSULN.PEN SC ×4 (06:38→21:45)
[2020-10-22] MEDS: Acetaminophen 500 MG Tablet 1000 MG PO ×3 (06:39→21:47)
[2020-10-22] MEDS: Levothyroxine 150 MCG Tablet PO (06:42)
[2020-10-22 06:56] LABS: Bedside Glucose 216 mg/dL (70-110)
--- NOTE | 2020-10-22 07:02 | PCM.PN.ORT ---
Subjective: The patient was sitting in bedside chair upon examination. Patient denies any chest pain, shortness of breath, dizziness, lightheadedness, nausea or vomiting, or calf pain. Patient is complaining of pain in her right hip extending into the thigh. Patient has had significant confusion yesterday and overnight. Pain medication was switched over from oxycodone to [place] 5-325 mg. Patient normally takes [place] 10/325 mg at home. Patient is oriented to her name date of but states she is at [facility]. She does state she is here for her right hip but states it was fractured. Yesterday with discussion with her , he reports that she has early onset dementia but I am unable to find any documentation in clearances or our history and physical exam. Patient also required a transfusion after her mesh hernia repair in June 2020. Patient's hemoglobin has dropped today to 7.7. She denies any dizziness or lightheadedness. Objective: Vital signs stable and afebrile. Patient is able to plantarflex and dorsiflex actively. Sensation is intact to light touch to saphenous, sural, superficial and deep peroneal, and tibial distribution. Dressing is clean dry and intact. Negative Homans bilaterally, negative signs and symptoms of DVT. - Physical Exam Vitals/I&O's: Vital Signs Temp Pulse Resp BP Pulse Ox 98.9 F 78 18 123/54 H 95 10/22/20 03:57 10/22/20 03:57 10/22/20 03:57 10/22/20 03:57 10/22/20 03:57 Oxygen Flow Rate (L/min) 6 Oxygen Delivery Method Room Air Weight: 102.6 kg Body Mass Index (BMI) 41.3 Finger Stick Blood Glucose 204 Intake and Output for Last 24 Hours 10/20/20 10/21/20 10/22/20 23:59 23:59 23:59 Intake Total 3962 / 3962 2762 / 3112 650 / 650 Output Total 1300 / 1300 300 / 700 850 / 850 Balance 2662 / 2662 2462 / 2412 -200 / -200 General: Alert, Confused Microbiology Past 72 Hours 10/19/20 14:37 Swab (Method) Nasal Screen MRSA/MSSA - Final 10/19/20 14:40 Interface Orders SARS-CoV-2 Antigen (Rapid) - Final Laboratory Results 10/21/20 06:45: POC Glucose 223 H 10/21/20 12:24: POC Glucose 172 H 10/21/20 17:22: POC Glucose 182 H 10/21/20 21:15: POC Glucose 168 H 10/22/20 05:35: WBC 9.8, RBC 2.64 L, Hgb 7.7 L, Hct 24.9 L, MCV 94.3, MCH 29.2, MCHC 30.9 L, RDW Std Deviation 62.5 H, RDW Coeff of Karina 18.2 H, Plt Count 144 L, MPV 10.0 10/22/20 06:37: POC Glucose 216 H Current Medications Acetaminophen (Acetaminophen 500 Mg Tablet) 1,000 mg PO Q8 [facility] Last Admin: 10/22/20 06:39 Dose: 1,000 mg Documented by: Hydrocodone Bitart/Acetaminophen (Hydrocodone Bitartrate/Apap 5/325 Tablet) 1 tablet PO Q6H PRN PRN PRN Reason: Pain Score 1-10 Last Admin: 10/22/20 00:31 Dose: 1 tablet Documented by: Amitriptyline HCl (Amitriptyline 25 Mg Tablet) 25 mg PO QHS [facility] Last Admin: 10/21/20 21:21 Dose: 25 mg Documented by: Aspirin (Aspirin 81 Mg Tab.Chew) 81 mg PO BIDCM [facility] Last Admin: 10/21/20 18:03 Dose: 81 mg Documented by: Calcium/Vitamin D (Calcium Carb/Vitamin D 1 Tablet Tablet) 1 tablet PO BIDCM [facility] Last Admin: 10/21/20 18:04 Dose: 1 tablet Documented by: Diphenhydramine HCl (Diphenhydramine 25 Mg Capsule) 25 mg PO DAILY PRN PRN Reason: ITCHING Doxycycline Monohydrate (Doxycycline 100 Mg Capsule) 100 mg PO BID [facility] Last Admin: 10/21/20 21:18 Dose: 100 mg Documented by: Duloxetine HCl (Duloxetine Hcl 60 Mg Capsule) 60 mg PO DAILY [facility] Last Admin: 10/21/20 10:18 Dose: 60 mg Documented by: Enteral Nutritional Formula (Ensure Surgery 237 Ml Liquid) 237 ml PO TIDCM [facility] Last Admin: 10/21/20 18:04 Dose: 237 ml Documented by: Famotidine (Famotidine 20 Mg Tablet) 20 mg PO DAILY [facility] Last Admin: 10/21/20 10:19 Dose: 20 mg Documented by: Ferrous Sulfate (Ferrous Sulfate 325 Mg Tablet) 325 mg PO DAILY@1200 [facility] Last Admin: 10/21/20 12:39 Dose: 325 mg Documented by: Fluticasone Propionate (Fluticasone 0.05% 1 [place] Nasal.Sry) 2 spray NASAL DAILY PRN PRN Reason: ALLERGIES Furosemide (Furosemide 20 Mg Tablet) 20 mg PO BID PRN PRN Reason: Swelling Gabapentin (Gabapentin 300 Mg Capsule) 600 mg PO BIDCM [facility] Last Admin: 10/21/20 18:04 Dose: 600 mg Documented by: Sodium Chloride () 250 mls @ 15 mls/hr IV .[id number] PRN PRN Reason: Saline Flush Sodium Chloride () 250 mls @ 15 mls/hr IV .[id number] PRN PRN Reason: Additional IVPB Infusion Insulin Human Lispro (Insulin Lispro 100 Unit/Ml Insuln.Pen) 0 unit SC [facility]; Protocol Last Admin: 10/22/20 06:38 Dose: 4 units Documented by: Levothyroxine Sodium (Levothyroxine 150 Mcg Tablet) 150 mcg PO DAILY@0600 [facility] Last Admin: 10/22/20 06:42 Dose: 150 mcg Documented by: Levothyroxine Sodium (Levothyroxine 75 Mcg Tablet) 75 mcg PO Rush@0600 [facility] Melatonin (Melatonin 10 Mg Tablet) 10 mg PO QHS PRN PRN Reason: SLEEP Last Admin: 10/22/20 00:32 Dose: 10 mg Documented by: Metoprolol Tartrate (Metoprolol Tartrate 25 Mg Tablet) 25 mg PO BID [facility] Last Admin: 10/21/20 21:19 Dose: 25 mg Documented by: Morphine Sulfate (Morphine 2 Mg/Ml Syringe) 2 - 4 mg IV Q2H PRN PRN PRN Reason: Pain Score 4-10 Ondansetron HCl (Ondansetron 4 Mg/2 Ml Vial) 4 mg IV Q8H PRN PRN PRN Reason: NAUSEA Pantoprazole Sodium (Pantoprazole Sodium 20 Mg Tablet) 20 mg PO BID [facility] Last Admin: 10/21/20 21:19 Dose: 20 mg Documented by: Polyethylene Glycol (Polyethylene Glycol 3350 17 Gm Packet) 17 gm PO DAILY [facility] Last Admin: 10/21/20 10:18 Dose: 17 gm Documented by: Senna/Docusate Sodium (Senna/Docusate Sodium 1 Tablet) 2 tablet PO BID [facility] Last Admin: 10/21/20 21:19 Dose: Not Given Documented by: Sodium Chloride (0.9% Saline Lock 10 Ml Syringe) 10 - 40 ml IV UD PRN PRN Reason: SALINE FLUSH Medical Necessity - Tobacco Use Smoking Status: Former smoker Assessment/Plan All Active Problems (Last Reviewed 10/12/20 @ 13:49 by Gabbie Matos SPIKE DRIVER, SPIKE DRIVER-C) Infected prosthetic mesh of abdominal wall (Resolved) Infected hernioplasty mesh (Resolved) Diverticulitis large intestine (Resolved) Confusion (Resolved) Dehydration (Resolved) Dyspnea (Resolved) Fever (Resolved) UTI (lower urinary tract infection) (Resolved) 1. S/P right direct anterior total hip arthroplasty POD #2 2. Continue Pain Medications: Patient's medication has been switched from oxycodone to [place] 5-325 mg. Try to use Tylenol primarily for pain control at this time due to the confusion. 3. DVT Prophylaxis: Take 81 mg aspirin twice daily for 4 weeks postoperatively for DVT prophylaxis 4. PT/OT: Weightbearing as tolerated. 5. H & H: 7.7/24.9, vitals have been stable. Acute on chronic anemia with postoperative anemia secondary to acute blood loss from surgery without any intra operative complications. Case was discussed with Dr. J Carlos Bush. At this time due to patient's cardiac history with previous heart catheterization and previous transfusion in June 2020, Dr. J Carlos Bush would like to have patient transfused with 1 unit packed red blood cells. Order was given to the nurse. 6. Reactive leukocytosis: Resolved and currently 9.8, afebrile. Patient did receive Decadron intraoperatively 7. Continue postoperative medical management per medicine: I will contact hospitalist to discuss case and course of plan. 8. Encouraged Incentive Spirometry 9. Disposition: Due to patient's current postoperative confusion as well as drop in hemoglobin and acute on chronic anemia, patient will require additional stay in the hospital. We are getting order 1 unit packed red blood cell. Will need to have case management discussed with family when they are here with regards to appropriate discharge plans. Plan was for patient to go home but we will need to see how she does and responds. I have reviewed the [place] Automated Rx Reporting System (OARRS) report for this patient for refill pattern and other prescriber involvement as part of the appropriate surveillance for the provision of acute and chronic controlled medications. The report was requested and reviewed on the date of this entry and was considered in the prescribing process.
[2020-10-22] MEDS: Ensure Surgery 237 ML LIQUID PO ×2 (09:20→12:24)
[2020-10-22] MEDS: Gabapentin 300 MG Capsule 600 MG PO ×2 (09:20→17:11)
[2020-10-22] MEDS: Aspirin 81 MG TAB.CHEW PO ×2 (09:20→17:09)
[2020-10-22] MEDS: Calcium Carb/Vitamin D 1 TABLET Tablet PO ×2 (09:20→17:07)
[2020-10-22] MEDS: Polyethylene Glycol 3350 17 GM PACKET PO (09:21)
[2020-10-22] MEDS: DULoxetine Hcl 60 MG Capsule PO (09:21)
[2020-10-22] MEDS: Metoprolol Tartrate 25 MG Tablet PO ×2 (09:21→21:50)
[2020-10-22] MEDS: Doxycycline 100 MG CAPSULE PO ×2 (09:21→21:47)
[2020-10-22] MEDS: Famotidine 20 MG Tablet PO (09:22)
[2020-10-22] MEDS: Pantoprazole Sodium 20 MG Tablet PO ×2 (09:22→21:49)
[2020-10-22] MEDS: Senna/Docusate Sodium 1 Tablet 2 TABLET PO (09:22)
[2020-10-22] MEDS: 0.9% Saline Lock 10 ML Syringe IV (10:30)
[2020-10-22] MEDS: 0.9% Normal Saline 1,000 ML 100 ML IV ×2 (10:30→22:18)
--- NOTE | 2020-10-22 10:55 | NURSING ---
LATE ENTRY - WAS CALLED BY THERAPY STAFF STATING PT REQUESTING TO SPEAK WITH THIS RN. GOING TO PT ROOM, PTS WAS STANDING IN HALLWAY SPEAKING TO PATIENT ADVOCATE. CONCERNED ABOUT PT LAB VALUES & CONFUSION. SPOUSE DID TELL THIS RN THAT PT HAS BEEN HAVING ISSUES @ HOME FOR PAST FEW MONTHS BUT THAT HE HAS NOT CONTACTED HER PCP REGARDING SAME.
[2020-10-22 11:31] LABS: Bedside Glucose 184 mg/dL (70-110)
--- NOTE | 2020-10-22 11:43 | PCM.CONS.R ---
Consultation - Renal 10/22/20 PCP/ Referring MD: Requesting physician: [] Primary care physician: Dr. Jesus Davila MD Reason for Consultation:: CKD stage 3 - History of Present Illness History of Present Illness: The patient is a 75 year old F well known to me with diabetic nephropathy CKD stage 3, hypertension, morbid obesity s/p bariatric surgery admitted for rt hip replacement on 10/20, now with post op anemia, altered mental status. She is on norco chronically at home. Received oxycodone for pain relief. Her last dose was yesterday. Today she remains somewhat delirious but arrousable and responds appropriately to questions most of the time. She had some ing symptoms last evening and seems to ramble at times about her previous abdominal surgery. Patient reported to have visual hallucinations. Spouse at bedside. She has not had a thorough evaluation for underlying cognitive dysfunction in the past. She had a rise in creatinine from baseline 1.2-1.3 to 1.58 yesterday. She was started on iv fluids and blood transfusion ordered for hgb down to 7.7g. She had a iv iron load 1g prior to surgery. Hgb 10.7g preop. She denies nausea, vomiting, abdominal pain. She denies cough, shortness of breath. No recent iv contrast. She was ordered Toradol for pain but did not receive any doses due to allergy. - Allergies Allergies: Allergies adhesive Allergy (Verified 10/15/20 13:40) Hives cephalexin monohydrate [From Keflex] Allergy (Verified 10/15/20 13:40) Hives ciprofloxacin [From Cipro] Allergy (Verified 10/15/20 13:40) Swelling ketorolac tromethamine [From Toradol] Allergy (Verified 10/15/20 13:40) Hives nickel [Nickel] Allergy (Verified 10/15/20 13:40) Other insulin glargine [From Lantus U-100 Insulin] Adverse Reaction (Verified 10/15/20 13:40) Other Injection site pain Gogthom-[id number]-[id number] Reductase Inhibitor Adverse Reaction (Verified 10/15/20 13:40) Other paladium Allergy (Uncoded 10/12/20 13:45) Other - Current Medications Current Medications: Current Medications Acetaminophen (Acetaminophen 500 Mg Tablet) 1,000 mg PO Q8 [facility] Last Admin: 10/22/20 06:39 Dose: 1,000 mg Documented by: Hydrocodone Bitart/Acetaminophen (Hydrocodone Bitartrate/Apap 5/325 Tablet) 1 tablet PO Q6H PRN PRN PRN Reason: Pain Score 1-10 Last Admin: 10/22/20 00:31 Dose: 1 tablet Documented by: Amitriptyline HCl (Amitriptyline 25 Mg Tablet) 25 mg PO QHS [facility] Last Admin: 10/21/20 21:21 Dose: 25 mg Documented by: Aspirin ([facility]Chew) [facility] Last Admin: 10/22/20 09:20 Dose: 81 mg Documented by: Calcium/Vitamin D (Calcium Carb/Vitamin D 1 Tablet Tablet) [facility] Last Admin: 10/22/20 09:20 Dose: 1 tablet Documented by: Diphenhydramine HCl (Diphenhydramine 25 Mg Capsule) 25 mg PO DAILY PRN PRN Reason: ITCHING Doxycycline Monohydrate (Doxycycline 100 Mg Capsule) 100 mg PO BID [facility] Last Admin: 10/22/20 09:21 Dose: 100 mg Documented by: Duloxetine HCl (Duloxetine Hcl 60 Mg Capsule) 60 mg PO DAILY [facility] Last Admin: 10/22/20 09:21 Dose: 60 mg Documented by: Enteral Nutritional Formula (Ensure Surgery 237 Ml Liquid) [facility] [place] Last Admin: 10/22/20 09:20 Dose: 237 ml Documented by: Famotidine (Famotidine 20 Mg Tablet) 20 mg PO DAILY [facility] Last Admin: 10/22/20 09:22 Dose: 20 mg Documented by: Ferrous Sulfate (Ferrous Sulfate 325 Mg Tablet) 325 mg PO DAILY@1200 [facility] Last Admin: 10/21/20 12:39 Dose: 325 mg Documented by: Fluticasone Propionate (Fluticasone 0.05% 1 [place] Nasal.Sry) 2 spray NASAL DAILY PRN PRN Reason: ALLERGIES Furosemide (Furosemide 20 Mg Tablet) 20 mg PO BID PRN PRN Reason: Swelling Gabapentin ([facility] 300 Mg [facility]apsule) [facility] Last Admin: 10/22/20 09:20 Dose: 600 mg Documented by: Sodium Chloride () 250 mls @ 15 mls/hr IV .[id number] PRN PRN Reason: Saline Flush Sodium Chloride () 250 mls @ 15 mls/hr IV .[id number] PRN PRN Reason: Additional IVPB Infusion Sodium Chloride () 1,000 mls @ 100 mls/hr IV .Q10H [facility] Last Admin: 10/22/20 10:30 Dose: 100 mls/hr Documented by: Insulin Human Lispro (Insulin Lispro 100 Unit/Ml Insuln.Pen) 0 unit SC ACHS [facility]; Protocol Last Admin: 10/22/20 06:38 Dose: 4 units Documented by: Levothyroxine Sodium (Levothyroxine 150 Mcg Tablet) 150 mcg PO DAILY@0600 [facility] Last Admin: 10/22/20 06:42 Dose: 150 mcg Documented by: Levothyroxine Sodium (Levothyroxine 75 Mcg Tablet) 75 mcg PO Rush@0600 [facility] Metoprolol Tartrate (Metoprolol Tartrate 25 Mg Tablet) 25 mg PO BID [facility] Last Admin: 10/22/20 09:21 Dose: 25 mg Documented by: Morphine Sulfate (Morphine 2 Mg/Ml Syringe) 2 - 4 mg IV Q2H PRN PRN PRN Reason: Pain Score 4-10 Ondansetron HCl (Ondansetron 4 Mg/2 Ml Vial) 4 mg IV Q8H PRN PRN PRN Reason: NAUSEA Pantoprazole Sodium (Pantoprazole Sodium 20 Mg Tablet) 20 mg PO BID [facility] Last Admin: 10/22/20 09:22 Dose: 20 mg Documented by: Polyethylene Glycol (Polyethylene Glycol 3350 17 Gm Packet) 17 gm PO DAILY [facility] Last Admin: 10/22/20 09:21 Dose: 17 gm Documented by: Senna/Docusate Sodium (Senna/Docusate Sodium 1 Tablet) 2 tablet PO BID [facility] Last Admin: 10/22/20 09:22 Dose: 2 tablet Documented by: Sodium Chloride (0.9% Saline Lock 10 Ml Syringe) 10 - 40 ml IV UD PRN PRN Reason: SALINE FLUSH Last Admin: 10/22/20 10:30 Dose: 10 ml Documented by: - Past Medical History Past Medical History (Chronic Problems): Chronic Problems (Last Reviewed 10/12/20 @ 13:49 by Gabbie Matos HEAD CHAR FILTER TANK TENDER, HEAD CHAR FILTER TANK TENDER-C) 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 - Social History Smoking Status: Former smoker - Family History Maternal Family History: Family History (Last Reviewed 10/12/20 @ 13:49 by Gabbie Matos HEAD CHAR FILTER TANK TENDER, HEAD CHAR FILTER TANK TENDER-C) Father Myocardial infarction Mother COPD (chronic obstructive pulmonary disease) Brother AAA (abdominal aortic aneurysm) Lung cancer Pancreatitis Sister Hypertension Diabetes CAD (coronary artery disease) partial detached retina History Items: - Paternal Family History: Family History (Last Reviewed 10/12/20 @ 13:49 by Gabbie Matos HEAD CHAR FILTER TANK TENDER, HEAD CHAR FILTER TANK TENDER-C) Father Myocardial infarction Mother COPD (chronic obstructive pulmonary disease) Brother AAA (abdominal aortic aneurysm) Lung cancer Pancreatitis Sister Hypertension Diabetes CAD (coronary artery disease) partial detached retina History Items: - Sibling Family History: Family History (Last Reviewed 10/12/20 @ 13:49 by Gabbie Matos HEAD CHAR FILTER TANK TENDER, HEAD CHAR FILTER TANK TENDER-C) Father Myocardial infarction Mother COPD (chronic obstructive pulmonary disease) Brother AAA (abdominal aortic aneurysm) Lung cancer Pancreatitis Sister Hypertension Diabetes CAD (coronary artery disease) partial detached retina History Items: - Review of Systems Constitutional: Denies: Anorexia, Chills, Fever Cardiovascular: Denies: Chest Pain, Edema Respiratory: Denies: Cough, Shortness of Breath Gastrointestinal: Denies: Abdominal Pain, Diarrhea, Nausea, Vomiting Genitourinary: Denies: Dysuria Musculoskeletal: Reports: - - rt hip pain s/p surgery Skin: Denies: Rash Neurological: Reports: - - occasional myotonic jerk. Denies: Tremor Psychiatric: Reports: Anxiety, Depression Hematologic/ Lymphatic: Reports: Anemia - Physical Exam Vitals/I&O's: Vital Signs Temp Pulse Resp BP Pulse Ox 98.7 F 89 18 114/82 H 91 10/22/20 09:26 10/22/20 09:26 10/22/20 09:26 10/22/20 09:26 10/22/20 09:26 Oxygen Flow Rate (L/min) 6 Oxygen Delivery Method Room Air Weight: 102.6 kg Body Mass Index (BMI) 41.3 Finger Stick Blood Glucose 204 Intake and Output for Last 24 Hours 10/20/20 10/21/20 10/22/20 23:59 23:59 23:59 Intake Total 3962 / 3962 2762 / 3112 650 / 650 Output Total 1300 / 1300 300 / 700 850 / 850 Balance 2662 / 2662 2462 / 2412 -200 / -200 General: Oriented x3, Cooperative, Well developed, Well nourished, Confused, - - somnolent but arrousable to verbal stimuli Oral: Dry Mucosa Neck: Supple Lungs: Clear to auscultation Cardiovascular: Regular rate Abdomen: Bowel Sounds Present, Soft, Non Tender, Non-Distended, Obese Extremities: No edema Musculoskeletal: No Muscle Wasting, - - rt hip/thigh post op pain stable Psych/Mental Status: - - intermittent confusion, delirium Microbiology Past 72 Hours 10/19/20 14:37 Swab (Method) Nasal Screen MRSA/MSSA - Final 10/19/20 14:40 Interface Orders SARS-CoV-2 Antigen (Rapid) - Final Laboratory Results 10/21/20 12:24: POC Glucose 172 H 10/21/20 17:22: POC Glucose 182 H 10/21/20 21:15: POC Glucose 168 H 10/22/20 05:35: WBC 9.8, RBC 2.64 L, Hgb 7.7 L, Hct 24.9 L, MCV 94.3, MCH 29.2, MCHC 30.9 L, RDW Std Deviation 62.5 H, RDW Coeff of Karina 18.2 H, Plt Count 144 L, MPV 10.0 10/22/20 06:37: POC Glucose 216 H 10/22/20 08:20: Blood Type O POSITIVE, Antibody Screen NEGATIVE, Crossmatch See Detail 10/22/20 11:18: POC Glucose 184 H Current Medications Acetaminophen (Acetaminophen 500 Mg Tablet) 1,000 mg PO Q8 [facility] Last Admin: 10/22/20 06:39 Dose: 1,000 mg Documented by: Hydrocodone Bitart/Acetaminophen (Hydrocodone Bitartrate/Apap 5/325 Tablet) 1 tablet PO Q6H PRN PRN PRN Reason: Pain Score 1-10 Last Admin: 10/22/20 00:31 Dose: 1 tablet Documented by: Amitriptyline HCl (Amitriptyline 25 Mg Tablet) 25 mg PO QHS [facility] Last Admin: 10/21/20 21:21 Dose: 25 mg Documented by: Aspirin (A[facility]in 81 [facility].Chew) [facility] Last Admin: 10/22/20 09:20 Dose: 81 mg Documented by: Calcium/Vitamin D (Calcium Carb/Vitamin D 1 Tablet Tablet) [facility] Last Admin: 10/22/20 09:20 Dose: 1 tablet Documented by: Diphenhydramine HCl (Diphenhydramine 25 Mg Capsule) 25 mg PO DAILY PRN PRN Reason: ITCHING Doxycycline Monohydrate (Doxycycline 100 Mg Capsule) 100 mg PO BID [facility] Last Admin: 10/22/20 09:21 Dose: 100 mg Documented by: Duloxetine HCl (Duloxetine Hcl 60 Mg Capsule) 60 mg PO DAILY [facility] Last Admin: 10/22/20 09:21 Dose: 60 mg Documented by: Enteral Nutritional Formula (Ensure Surgery 237 Ml Liquid) [facility] Last Admin: 10/22/20 09:20 Dose: 237 ml Documented by: Famotidine (Famotidine 20 Mg Tablet) 20 mg PO DAILY [facility] Last Admin: 10/22/20 09:22 Dose: 20 mg Documented by: Ferrous Sulfate (Ferrous Sulfate 325 Mg Tablet) 325 mg PO DAILY@1200 [facility] Last Admin: 10/21/20 12:39 Dose: 325 mg Documented by: Fluticasone Propionate (Fluticasone 0.05% 1 [place] Nasal.Sry) 2 spray NASAL DAILY PRN PRN Reason: ALLERGIES Furosemide (Furosemide 20 Mg Tablet) 20 mg PO BID PRN PRN Reason: Swelling Gabapentin (Gabapentin 300 Mg Capsule) [facility] Last Admin: 10/22/20 09:20 Dose: 600 mg Documented by: Sodium Chloride () 250 mls @ 15 mls/hr IV .[id number] PRN PRN Reason: Saline Flush Sodium Chloride () 250 mls @ 15 mls/hr IV .[id number] PRN PRN Reason: Additional IVPB Infusion Sodium Chloride () 1,000 mls @ 100 mls/hr IV .Q10H [facility] Last Admin: 10/22/20 10:30 Dose: 100 mls/hr Documented by: Insulin Human Lispro (Insulin Lispro 100 Unit/Ml Insuln.Pen) 0 unit SC [facility]; Protocol Last Admin: 10/22/20 06:38 Dose: 4 units Documented by: Levothyroxine Sodium (Levothyroxine 150 Mcg Tablet) 150 mcg PO DAILY@0600 [facility] Last Admin: 10/22/20 06:42 Dose: 150 mcg Documented by: Levothyroxine Sodium (Levothyroxine 75 Mcg Tablet) 75 mcg PO Rush@0600 [facility] Metoprolol Tartrate (Metoprolol Tartrate 25 Mg Tablet) 25 mg PO BID [facility] Last Admin: 10/22/20 09:21 Dose: 25 mg Documented by: Morphine Sulfate (Morphine 2 Mg/Ml Syringe) 2 - 4 mg IV Q2H PRN PRN PRN Reason: Pain Score 4-10 Ondansetron HCl (Ondansetron 4 Mg/2 Ml Vial) 4 mg IV Q8H PRN PRN PRN Reason: NAUSEA Pantoprazole Sodium (Pantoprazole Sodium 20 Mg Tablet) 20 mg PO BID [facility] Last Admin: 10/22/20 09:22 Dose: 20 mg Documented by: Polyethylene Glycol (Polyethylene Glycol 3350 17 Gm Packet) 17 gm PO DAILY [facility] Last Admin: 10/22/20 09:21 Dose: 17 gm Documented by: Senna/Docusate Sodium (Senna/Docusate Sodium 1 Tablet) 2 tablet PO BID [facility] Last Admin: 10/22/20 09:22 Dose: 2 tablet Documented by: Sodium Chloride (0.9% Saline Lock 10 Ml Syringe) 10 - 40 ml IV UD PRN PRN Reason: SALINE FLUSH Last Admin: 10/22/20 10:30 Dose: 10 ml Documented by: Assessment/Plan All Active Problems (Last Reviewed 10/12/20 @ 13:49 by Gabbie Matos HEAD CHAR FILTER TANK TENDER, HEAD CHAR FILTER TANK TENDER-C) Infected prosthetic mesh of abdominal wall (Resolved) Infected hernioplasty mesh (Resolved) Diverticulitis large intestine (Resolved) Confusion (Resolved) Dehydration (Resolved) Dyspnea (Resolved) Fever (Resolved) UTI (lower urinary tract infection) (Resolved) 1. CKD Stage 3 due to diabetes with Acute on CKD event suspect prerenal, decreased mentation, decreased oral intake due to confusion from narcotics. Agree with iv fluids. Avoid nephrotoxins, iv contrast, NSAIDs. Continue to monitor labs 2. Anemia s/p rt hip ORIF. PRBC 1unit today. Recheck iron studies, hgb in am 3. Confusion, delirium likely due to narcotics, recent anesthesia. Holding oxycodone for now. Pt chronically on norco at home. 4. Dm2 stable 5. s/p ORIF rt hip for DJD POD#2. Ortho following. Pt spouse asking if appropriate for incenter rehab vs home rehab. Defer to primary service, PT YAMILA sharma. Discussed with hospitalist and lengthy discussion with pt spouse at bedside regarding pt status.
[2020-10-22] MEDS: Ferrous Sulfate 325 MG Tablet PO (12:19)
[2020-10-22 17:21] LABS: Bedside Glucose 184 mg/dL (70-110)
--- NOTE | 2020-10-22 18:08 | PCM.PROGNOTE ---
Subjective: Patient was seen and examined today, she is more confused today than yesterday, she does not appear to be running a temperature or appear toxic at this time to this examiner. I talked at length with her today was here, I suspect this confusion is either secondary to a medication reaction or interrupted sleep pattern. Her BiPAP was not set up properly when she was admitted here, he is to go home and get some nasal pillows for the BiPAP machine. Patient's requested nephrology see the patient and I contacted Dr. Vance and she saw the patient today. Patient was not eating and drinking very well her creatinine bumped up today and I placed her on some fluids. Labs will be rechecked tomorrow. Objective: General: Patient is confused as to place, she can identify me as a physician but think she is at her cousin's home. HEENT: Atraumatic, PERRLA, EOMI, Normocephalic Oral: Moist Mucosa Neck: Supple, No JVD, Trachea Midline, Thyroid Normal Size and Texture Lungs: Clear to auscultation, Normal air movement, No rhonchi, No wheeze, No rales Cardiovascular: Regular rate, Regular Rhythm, Normal S1, Normal S2, No murmurs Abdomen: Bowel Sounds Present, Soft, Non Tender, Non-Distended, Obese Extremities: No clubbing, No cyanosis, Capillary Refill Less than 3 Seconds Skin: No rashes, No breakdown Neurological: Cranial nerves II-XII grossly intact, Motor Exam 5/5 strength throughout, Sensory exam intact to light touch and pain, Coordination normal Psych/Mental Status: Patient has confusion, she is alert and able to answer some questions appropriately however. - Physical Exam Vitals/I&O's: Vital Signs Temp Pulse Resp BP Pulse Ox 99.6 F H 83 18 136/57 H 96 10/22/20 16:00 10/22/20 16:00 10/22/20 16:00 10/22/20 16:00 10/22/20 16:00 Oxygen Flow Rate (L/min) 6 Oxygen Delivery Method Room Air Weight: 102.6 kg Body Mass Index (BMI) 41.3 Finger Stick Blood Glucose 204 Intake and Output for Last 24 Hours 10/20/20 10/21/20 10/22/20 23:59 23:59 23:59 Intake Total 3962 / 3962 2762 / 3112 650 / 650 Output Total 1300 / 1300 300 / 700 1000 / 1000 Balance 2662 / 2662 2462 / 2412 -350 / -350 Microbiology Past 72 Hours 10/19/20 14:37 Swab (Method) Nasal Screen MRSA/MSSA - Final 10/19/20 14:40 Interface Orders SARS-CoV-2 Antigen (Rapid) - Final Laboratory Results 10/21/20 21:15: POC Glucose 168 H 10/22/20 05:35: WBC 9.8, RBC 2.64 L, Hgb 7.7 L, Hct 24.9 L, MCV 94.3, MCH 29.2, MCHC 30.9 L, RDW Std Deviation 62.5 H, RDW Coeff of Karina 18.2 H, Plt Count 144 L, MPV 10.0 10/22/20 06:37: POC Glucose 216 H 10/22/20 08:20: Blood Type O POSITIVE, Antibody Screen NEGATIVE, Crossmatch See Detail 10/22/20 11:18: POC Glucose 184 H 10/22/20 16:55: POC Glucose 184 H Current Medications Acetaminophen (Acetaminophen 500 Mg Tablet) 1,000 mg PO Q8 [facility] Last Admin: 10/22/20 06:39 Dose: 1,000 mg Documented by: Hydrocodone Bitart/Acetaminophen (Hydrocodone Bitartrate/Apap 5/325 Tablet) 1 tablet PO Q6H PRN PRN PRN Reason: Pain Score 1-10 Last Admin: 10/22/20 00:31 Dose: 1 tablet Documented by: Amitriptyline HCl (Amitriptyline 25 Mg Tablet) 25 mg PO QHS [facility] Last Admin: 10/21/20 21:21 Dose: 25 mg Documented by: Aspirin (Aspirin 81 Mg Tab.Chew) [facility] Last Admin: 10/22/20 17:09 Dose: 81 mg Documented by: Calcium/Vitamin D (Calcium Carb/Vitamin D 1 Tablet Tablet) [facility] Last Admin: 10/22/20 17:07 Dose: 1 tablet Documented by: Diphenhydramine HCl (Diphenhydramine 25 Mg Capsule) 25 mg PO DAILY PRN PRN Reason: ITCHING Doxycycline Monohydrate (Doxycycline 100 Mg Capsule) 100 mg PO BID [facility] Last Admin: 10/22/20 09:21 Dose: 100 mg Documented by: Duloxetine HCl (Duloxetine Hcl 60 Mg Capsule) 60 mg PO DAILY [facility] Last Admin: 10/22/20 09:21 Dose: 60 mg Documented by: Famotidine (Famotidine 20 Mg Tablet) 20 mg PO DAILY [facility] Last Admin: 10/22/20 09:22 Dose: 20 mg Documented by: Ferrous Sulfate (Ferrous Sulfate 325 Mg Tablet) 325 mg PO DAILY@1200 [facility] Last Admin: 10/22/20 12:19 Dose: 325 mg Documented by: Fluticasone Propionate (Fluticasone 0.05% 1 [place] Nasal.Sry) 2 spray NASAL DAILY PRN PRN Reason: ALLERGIES Furosemide (Furosemide 20 Mg Tablet) 20 mg PO BID PRN PRN Reason: Swelling Gabapentin (Gabapentin 300 Mg Capsule) 600 mg PO BIDCM [facility] Last Admin: 10/22/20 17:11 Dose: 600 mg Documented by: Sodium Chloride () 250 mls @ 15 mls/hr IV .[id number] PRN PRN Reason: Saline Flush Sodium Chloride () 250 mls @ 15 mls/hr IV .[id number] PRN PRN Reason: Additional IVPB Infusion Sodium Chloride () 1,000 mls @ 100 mls/hr IV .Q10H [facility] Last Admin: 10/22/20 10:30 Dose: 100 mls/hr Documented by: Insulin Human Lispro (Insulin Lispro 100 Unit/Ml Insuln.Pen) 0 unit SC [facility]; Protocol Last Admin: 10/22/20 17:09 Dose: 2 units Documented by: Levothyroxine Sodium (Levothyroxine 150 Mcg Tablet) 150 mcg PO DAILY@0600 [facility] Last Admin: 10/22/20 06:42 Dose: 150 mcg Documented by: Levothyroxine Sodium (Levothyroxine 75 Mcg Tablet) 75 mcg PO Rush@0600 [facility] Loperamide HCl (Loperamide 2 Mg Capsule) 2 mg PO Q6H PRN PRN PRN Reason: DIARRHEA/LOOSE STOOLS Metoprolol Tartrate (Metoprolol Tartrate 25 Mg Tablet) 25 mg PO BID [facility] Last Admin: 10/22/20 09:21 Dose: 25 mg Documented by: Morphine Sulfate (Morphine 2 Mg/Ml Syringe) 2 - 4 mg IV Q2H PRN PRN PRN Reason: Pain Score 4-10 Ondansetron HCl (Ondansetron 4 Mg/2 Ml Vial) 4 mg IV Q8H PRN PRN PRN Reason: NAUSEA Pantoprazole Sodium (Pantoprazole Sodium 20 Mg Tablet) 20 mg PO BID [facility] Last Admin: 10/22/20 09:22 Dose: 20 mg Documented by: Polyethylene Glycol (Polyethylene Glycol 3350 17 Gm Packet) 17 gm PO DAILY [facility] Last Admin: 10/22/20 09:21 Dose: 17 gm Documented by: Senna/Docusate Sodium (Senna/Docusate Sodium 1 Tablet) 2 tablet PO BID [facility] Last Admin: 10/22/20 09:22 Dose: 2 tablet Documented by: Sodium Chloride (0.9% Saline Lock 10 Ml Syringe) 10 - 40 ml IV UD PRN PRN Reason: SALINE FLUSH Last Admin: 10/22/20 10:30 Dose: 10 ml Documented by: Medical Necessity - Tobacco Use Smoking Status: Former smoker Assessment/Plan All Active Problems (Last Reviewed 10/12/20 @ 13:49 by Gabbie Matos [employer]IV[employer], [employer]-C) Infected prosthetic mesh of abdominal wall (Resolved) Infected hernioplasty mesh (Resolved) Diverticulitis large intestine (Resolved) Confusion (Resolved) Dehydration (Resolved) Dyspnea (Resolved) Fever (Resolved) UTI (lower urinary tract infection) (Resolved) #1 type 2 diabetes-blood sugars will continue to be monitored #2 chronic kidney disease stage III-patient has an element of dehydration, IV fluids will be administered and labs will be rechecked tomorrow #3 essential hypertension #4 morbid obesity #5 osteoarthritis of the right hip-status post minimally invasive right hip replacement postop day #2-continue PT and OT #6 hypothyroidism #7 encephalopathy-probably secondary to medication reaction or sleep deprivation, patient will be monitored closely, I do not think she needs a CT of her head at this time #8 anemia as an expected consequence of surgery on a patient with known iron deficiency anemia-patient was given a unit of blood today, H&H will be rechecked tomorrow Inpatient E&M: [id number] Subs Hosp L2
[2020-10-22] MEDS: Loperamide 2 MG Capsule PO (18:37)
[2020-10-22] MEDS: Amitriptyline 25 MG Tablet PO (21:48)
[2020-10-22] MEDS: guaiFENesin 10 ML UDC (200MG/10ML) PO (21:49)
[2020-10-22 23:06] LABS: Bedside Glucose 190 mg/dL (70-110)
[2020-10-23 03:45] VITALS: BP 137/71; PULSE 86; RESP 20; TEMP 36.4; O2SAT 94
[2020-10-23] MEDS: Levothyroxine 150 MCG Tablet PO (05:42)
[2020-10-23] MEDS: Acetaminophen 500 MG Tablet 1000 MG PO (05:42)
[2020-10-23] MEDS: Insulin Lispro 100 UNIT/ML INSULN.PEN SC ×2 (06:17→11:55)
[2020-10-23 06:25] LABS: Bedside Glucose 170 mg/dL (70-110)
[2020-10-23 07:27] LABS: Hematocrit 26.3 % (37-47); Hemoglobin 8.3 g/dL (12.0-15.0); Mean Corp Hgb Conc 31.6 g/dL (32-36); Mean Corpuscular Hgb 28.9 pg (27.0-32.0); Mean Corpuscular Volume 91.6 fL (81-99); Mean Platelet Vol. 10.2 fl (6.2-12.0); Platelet Count 149 K/mm3 (150-450); RBC Distribution Width CV 19.5 % (11.6-14.6); Red Blood Count 2.87 M/mm3 (4.2-5.4); White Blood Count 7.8 K/mm3 (4.4-11.0)
[2020-10-23 07:46] LABS: Albumin, Serum 2.8 g/dL (3.2-5.0); BUN 17 mg/dL (7-18); BUN/Creat Ratio 15.9 RATIO (10-20); Calcium,Total 8.4 mg/dL (8.5-10.1); Chloride 110 mmol/L (98-107); Creatinine, Serum 1.07 mg/dL (0.55-1.02); EST Glomerular Filtration Rate 53 mL/min (>60); Est Glom Filt Rate - Afr Amer 65 mL/min (>60); Estimated Creatinine Clearance 37.04 ml/min; Ferritin 383 ng/mL (8-252); Glucose 184 mg/dL (74-106); Iron 17 ug/dL (50-170); Phosphorus 1.9 mg/dL (2.5-4.9); Potassium 3.7 mmol/L (3.5-5.1); Sodium Level 141 mmol/L (136-145)
[2020-10-23] MEDS: 0.9% Normal Saline 1,000 ML 100 ML IV (08:36)
[2020-10-23 08:55] VITALS: BP 143/64; PULSE 100; RESP 18; TEMP 36.7; O2SAT 98
[2020-10-23] MEDS: Aspirin 81 MG TAB.CHEW PO (08:57)
[2020-10-23] MEDS: Doxycycline 100 MG CAPSULE PO (08:57)
[2020-10-23] MEDS: Gabapentin 300 MG Capsule 600 MG PO (08:57)
[2020-10-23] MEDS: Calcium Carb/Vitamin D 1 TABLET Tablet PO (08:58)
[2020-10-23] MEDS: DULoxetine Hcl 60 MG Capsule PO (08:58)
[2020-10-23] MEDS: Pantoprazole Sodium 20 MG Tablet PO (08:58)
[2020-10-23 08:59] VITALS: PULSE 100
[2020-10-23] MEDS: Famotidine 20 MG Tablet PO (08:59)
[2020-10-23] MEDS: Metoprolol Tartrate 25 MG Tablet PO (08:59)
[2020-10-23] MEDS: HYDROcodone Bitartrate/Apap 5/325 Tablet PO (10:08)
[2020-10-23] MEDS: Ferrous Sulfate 325 MG Tablet PO (11:56)
[2020-10-23 12:20] LABS: Bedside Glucose 177 mg/dL (70-110)
--- NOTE | 2020-10-23 12:25 | PN.ORTHO_ITS ---
Subjective: Patient is doing well today. Alert and oriented in chair in the room. No chest pain or shortness of breath. Patient notes she has thigh pain but the groin pain is resolved. Her is at the bedside. She is comfortable and home health care has been set up for her to be discharged home. Patient has been switched back to hydrocodone. She received 1 dose on 2 at 12:30 in the morning. She is only had 1 additional dose since that time which came at 10:00 this morning. There was no dressing on the wound this morning. No erythema. I spoke with the nurse who states that the patient remove the dressing herself. Objective: Postoperative x-rays show stable well aligned total hip replacement. - Physical Exam Vitals/I&O's: Vital Signs Temp Pulse Resp BP Pulse Ox 98.0 F 100 18 143/64 H 98 10/23/20 08:55 10/23/20 08:59 10/23/20 08:55 10/23/20 08:55 10/23/20 08:55 Oxygen Flow Rate (L/min) 6 Oxygen Delivery Method Room Air Weight: 226 lb 3.108 oz Body Mass Index (BMI) 41.3 Finger Stick Blood Glucose 204 Intake and Output for Last 24 Hours 10/21/20 10/22/20 10/23/20 23:59 23:59 23:59 Intake Total 2762 / 3112 2090 / 2590 1956.67 / 1956.67 Output Total 300 / 700 1000 / 1000 1350 / 1350 Balance 2462 / 2412 1090 / 1590 606.67 / 606.67 General: Alert, Oriented x3, Cooperative Extremities: - - Right lower extremity: Incision clean dry and intact. Motor is intact dorsiflexion, EHL and plantar flexion. Sensation is intact to light touch saphenous, radha,l superficial peroneal, deep peroneal and tibial distributions. Calves are soft and supple. Microbiology Past 72 Hours 10/19/20 14:37 Swab (Method) Nasal Screen MRSA/MSSA - Final Laboratory Results 10/22/20 08:20: Crossmatch See Detail 10/22/20 16:55: POC Glucose 184 H 10/22/20 21:44: POC Glucose 190 H 10/23/20 06:13: POC Glucose 170 H 10/23/20 06:41: WBC 7.8, RBC 2.87 L, Hgb 8.3 L, Hct 26.3 L, MCV 91.6, MCH 28.9, MCHC 31.6 L, RDW Std Deviation 65.0 H, RDW Coeff of Karina 19.5 H, Plt Count 149 L, MPV 10.2 10/23/20 06:41: Sodium 141, Potassium 3.7, Chloride 110 H, Carbon Dioxide 26.0, BUN 17, Creatinine 1.07 H, Estim Creat Clear Calc 37.04, Est GFR (MDRD) Af Amer 65, Est GFR (MDRD) Non-Af 53 L, BUN/Creatinine Ratio 15.9, Glucose 184 H, Calcium 8.4 L, Phosphorus 1.9 L, Iron 17 L, Ferritin 383 H, Albumin 2.8 L 10/23/20 11:54: POC Glucose 177 H Current Medications Acetaminophen (Acetaminophen 500 Mg Tablet) 1,000 mg PO Q8 [facility] Last Admin: 10/23/20 05:42 Dose: 1,000 mg Documented by: Hydrocodone Bitart/Acetaminophen (Hydrocodone Bitartrate/Apap 5/325 Tablet) 1 tablet PO Q6H PRN PRN PRN Reason: Pain Score 1-10 Last Admin: 10/23/20 10:08 Dose: 1 tablet Documented by: Amitriptyline HCl (Amitriptyline 25 Mg Tablet) 25 mg PO QHS [facility] Last Admin: 10/22/20 21:48 Dose: 25 mg Documented by: Aspirin ([facility]spirin 81 Mg [facility].Chew) [facility] Last Admin: 10/23/20 08:57 Dose: 81 mg Documented by: Calcium/Vitamin D (Calcium Carb/Vitamin D 1 Tablet Tablet) [facility] Last Admin: 10/23/20 08:58 Dose: 1 tablet Documented by: Diphenhydramine HCl (Diphenhydramine 25 Mg Capsule) 25 mg PO DAILY PRN PRN Reason: ITCHING Doxycycline Monohydrate (Doxycycline 100 Mg Capsule) 100 mg PO BID [facility] Last Admin: 10/23/20 08:57 Dose: 100 mg Documented by: Duloxetine HCl (Duloxetine Hcl 60 Mg Capsule) 60 mg PO DAILY [facility] Last Admin: 10/23/20 08:58 Dose: 60 mg Documented by: Famotidine (Famotidine 20 Mg Tablet) 20 mg PO DAILY [facility] Last Admin: 10/23/20 08:59 Dose: 20 mg Documented by: Ferrous Sulfate (Ferrous Sulfate 325 Mg Tablet) 325 mg PO DAILY@1200 [facility] Last Admin: 10/23/20 11:56 Dose: 325 mg Documented by: Fluticasone Propionate (Fluticasone 0.05% 1 [place] Nasal.Sry) 2 spray NASAL DAILY PRN PRN Reason: ALLERGIES Furosemide (Furosemide 20 Mg Tablet) 20 mg PO BID PRN PRN Reason: Swelling Gabapentin (Gabapentin 300 Mg Capsule) [facility] Last Admin: 10/23/20 08:57 Dose: 600 mg Documented by: Guaifenesin (Guaifenesin 10 Ml Udc (200mg/10ml)) 10 ml PO Q6H PRN PRN PRN Reason: COUGH Last Admin: 10/22/20 21:49 Dose: 10 ml Documented by: Sodium Chloride () 250 mls @ 15 mls/hr IV .[id number] PRN PRN Reason: Saline Flush Sodium Chloride () 250 mls @ 15 mls/hr IV .[id number] PRN PRN Reason: Additional IVPB Infusion Ferric Sodium Gluconate Complex 250 mg/ Sodium Chloride 270 mls @ 135 mls/hr IV X1 ONE Stop: 10/23/20 12:59 Last Admin: 10/23/20 11:29 Dose: 135 mls/hr Documented by: Insulin Human Lispro (Insulin Lispro 100 Unit/Ml Insuln.Pen) 0 unit SC [facility]; Protocol Last Admin: 10/23/20 11:55 Dose: 2 units Documented by: Levothyroxine Sodium (Levothyroxine 150 Mcg Tablet) 150 mcg PO DAILY@0600 [facility] Last Admin: 10/23/20 05:42 Dose: 150 mcg Documented by: Levothyroxine Sodium (Levothyroxine 75 Mcg Tablet) 75 mcg PO Rush@0600 [facility] Loperamide HCl (Loperamide 2 Mg Capsule) 2 mg PO Q6H PRN PRN PRN Reason: DIARRHEA/LOOSE STOOLS Last Admin: 10/22/20 18:37 Dose: 2 mg Documented by: Metoprolol Tartrate (Metoprolol Tartrate 25 Mg Tablet) 25 mg PO BID [facility] Last Admin: 10/23/20 08:59 Dose: 25 mg Documented by: Morphine Sulfate (Morphine 2 Mg/Ml Syringe) 2 - 4 mg IV Q2H PRN PRN PRN Reason: Pain Score 4-10 Ondansetron HCl (Ondansetron 4 Mg/2 Ml Vial) 4 mg IV Q8H PRN PRN PRN Reason: NAUSEA Pantoprazole Sodium (Pantoprazole Sodium 20 Mg Tablet) 20 mg PO BID [facility] Last Admin: 10/23/20 08:58 Dose: 20 mg Documented by: Polyethylene Glycol (Polyethylene Glycol 3350 17 Gm Packet) 17 gm PO DAILY [facility] Last Admin: 10/23/20 08:59 Dose: Not Given Documented by: Senna/Docusate Sodium (Senna/Docusate Sodium 1 Tablet) 2 tablet PO BID [facility] Last Admin: 10/23/20 08:59 Dose: Not Given Documented by: Sodium Chloride (0.9% Saline Lock 10 Ml Syringe) 10 - 40 ml IV UD PRN PRN Reason: SALINE FLUSH Last Admin: 10/22/20 10:30 Dose: 10 ml Documented by: Medical Necessity - Tobacco Use Smoking Status: Former smoker Assessment/Plan All Active Problems (Last Reviewed 10/12/20 @ 13:49 by Gabbie Matos [employer] WEDGER, [employer]- C) Infected prosthetic mesh of abdominal wall (Resolved) Infected hernioplasty mesh (Resolved) Diverticulitis large intestine (Resolved) Confusion (Resolved) Dehydration (Resolved) Dyspnea (Resolved) Fever (Resolved) UTI (lower urinary tract infection) (Resolved) 1. S/P right direct anterior total hip arthroplasty POD #3 2. Continue Pain Medications: Patient's medication has been switched from oxycodone to [place] 5-325 mg. Try to use Tylenol primarily for pain control at this time due to the confusion. We discussed that on going home she should attempt to minimize her hydrocodone use. Her is extremely concerned about her long-term hydrocodone use. We carefully discussed that Tylenol can safely be used up to 3000 mg a day. We also discussed that she is quite sleepy throughout the day and other medications such as gabapentin may be adding to this and the amitriptyline she takes at night. We discussed weaning these medications starting with the [place] and potentially the gabapentin after that. 3. DVT Prophylaxis: Take 81 mg aspirin twice daily for 4 weeks postoperatively for DVT prophylaxis 4. PT/OT: Weightbearing as tolerated. 5. H & H: 8.3, vitals have been stable. Acute on chronic anemia with postoperative anemia secondary to acute blood loss from surgery without any intra operative complications. Patient responded well to yesterday's unit of blood. 6. Reactive leukocytosis: Resolved 7. Continue postoperative medical management per medicine: The case was discussed with hospitalist this morning. At this time her mentation is cleared and they felt medically she should be ready to go home once her iron infusion is complete. 8. Encouraged Incentive Spirometry 9. Postoperative confusion/delirium: Likely related to poor renal clearance of anesthesia and narcotic pain medications. Patient is alert and oriented x3 this morning conversing well. 10. Disposition: Patient's confusion from the past 2 days has improved significantly. She is responded well to 1 unit of packed red blood cells. She is medically stable at this point. Plans are for her to go home today with home health care. We will place a new silver dressing over her wound. She was instructed to leave this until Friday 10/27. Follow-up in instructions show she has a follow-up appointment on November 03 at 11 AM. She will begin home health physical therapy. [facility] Office:
--- NOTE | 2020-10-23 12:34 | PCM.DC.SUM ---
Discharge Date and Diagnosis Date of Admission: 10/20/20 Date of Discharge: 10/23/20 - Primary Discharge Diagnosis Acute Problems: Right hip pain status post total hip replacement Postop anemia related to surgical procedure Acute on chronic renal failure which is self corrected Postop delirium related to anesthesia and narcotics likely due to poor renal clearance. 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 Postoperatively she had surgical related acute on chronic anemia and was transfused 1 unit of packed red blood cells. She was also noted to have some confusion or delirium for 24 to 48 hours. On day 3 this cleared up. She was also seen by her ingot supervisor and hospitalist service on consultation. Overall with close medical care patient's postoperative course was without significant complication. Eventually on postop day 3 patient was doing well and was able to be discharged home with home health care. Operations: total hip replacement Summary of Care Provided: The patient is a 75 year old F [] - Physical Exam Vitals/I&O's: Vital Signs Temp Pulse Resp BP Pulse Ox 98.0 F 100 18 143/64 H 98 10/23/20 08:55 10/23/20 08:59 10/23/20 08:55 10/23/20 08:55 10/23/20 08:55 Oxygen Flow Rate (L/min) 6 Oxygen Delivery Method Room Air Weight: 226 lb 3.108 oz Body Mass Index (BMI) 41.3 Finger Stick Blood Glucose 204 Intake and Output for Last 24 Hours 10/21/20 10/22/20 10/23/20 23:59 23:59 23:59 Intake Total 2762 / 3112 2090 / 2590 1956.67 / 1955.67 Output Total 300 / 700 1000 / 1000 1350 / 1350 Balance 2462 / 2412 1090 / 1590 606.67 / 606.67 General: Alert, Oriented x3, Cooperative Extremities: - - Right lower extremity: Incision clean dry and intact. Motor is intact dorsiflexion, EHL and plantar flexion. Sensation is intact to light touch saphenous, radha,l superficial peroneal, deep peroneal and tibial distributions. Calves are soft and supple. Microbiology Past 72 Hours 10/19/20 14:37 Swab (Method) Nasal Screen MRSA/MSSA - Final Laboratory Results 10/22/20 08:20: Crossmatch See Detail 10/22/20 16:55: POC Glucose 184 H 10/22/20 21:44: POC Glucose 190 H 10/23/20 06:13: POC Glucose 170 H 10/23/20 06:41: WBC 7.8, RBC 2.87 L, Hgb 8.3 L, Hct 26.3 L, MCV 91.6, MCH 28.9, MCHC 31.6 L, RDW Std Deviation 65.0 H, RDW Coeff of Karina 19.5 H, Plt Count 149 L, MPV 10.2 10/23/20 06:41: Sodium 141, Potassium 3.7, Chloride 110 H, Carbon Dioxide 26.0, BUN 17, Creatinine 1.07 H, Estim Creat Clear Calc 37.04, Est GFR (MDRD) Af Amer 65, Est GFR (MDRD) Non-Af 53 L, BUN/Creatinine Ratio 15.9, Glucose 184 H, Calcium 8.4 L, Phosphorus 1.9 L, Iron 17 L, Ferritin 383 H, Albumin 2.8 L 10/23/20 11:54: POC Glucose 177 H Current Medications Acetaminophen (Acetaminophen 500 Mg Tablet) 1,000 mg PO Q8 [facility] Last Admin: 10/23/20 05:42 Dose: 1,000 mg Documented by: Hydrocodone Bitart/Acetaminophen (Hydrocodone Bitartrate/Apap 5/325 Tablet) 1 tablet PO Q6H PRN PRN PRN Reason: Pain Score 1-10 Last Admin: 10/23/20 10:08 Dose: 1 tablet Documented by: Amitriptyline HCl (Amitriptyline 25 Mg Tablet) 25 mg PO QHS [facility] Last Admin: 10/22/20 21:48 Dose: 25 mg Documented by: Aspirin (Aspirin 81 Mg Tab.Chew) 81 mg PO BIDCM [facility] Last Admin: 10/23/20 08:57 Dose: 81 mg Documented by: Calcium/Vitamin D (Calcium Carb/Vitamin D 1 Tablet Tablet) [facility] Last Admin: 10/23/20 08:58 Dose: 1 tablet Documented by: Diphenhydramine HCl (Diphenhydramine 25 Mg Capsule) 25 mg PO DAILY PRN PRN Reason: ITCHING Doxycycline Monohydrate (Doxycycline 100 Mg Capsule) 100 mg PO BID [facility] Last Admin: 10/23/20 08:57 Dose: 100 mg Documented by: Duloxetine HCl (Duloxetine Hcl 60 Mg Capsule) 60 mg PO DAILY [facility] Last Admin: 10/23/20 08:58 Dose: 60 mg Documented by: Famotidine (Famotidine 20 Mg Tablet) 20 mg PO DAILY [facility] Last Admin: 10/23/20 08:59 Dose: 20 mg Documented by: Ferrous Sulfate (Ferrous Sulfate 325 Mg Tablet) 325 mg PO DAILY@1200 [facility] Last Admin: 10/23/20 11:56 Dose: 325 mg Documented by: Fluticasone Propionate (Fluticasone 0.05% 1 [place] Nasal.Sry) 2 spray NASAL DAILY PRN PRN Reason: ALLERGIES Furosemide (Furosemide 20 Mg Tablet) 20 mg PO BID PRN PRN Reason: Swelling Gabapentin (Gabapentin 300 Mg Capsule) [facility] Last Admin: 10/23/20 08:57 Dose: 600 mg Documented by: Guaifenesin (Guaifenesin 10 Ml Udc (200mg/10ml)) 10 ml PO Q6H PRN PRN PRN Reason: COUGH Last Admin: 10/22/20 21:49 Dose: 10 ml Documented by: Sodium Chloride () 250 mls @ 15 mls/hr IV .[id number] PRN PRN Reason: Saline Flush Sodium Chloride () 250 mls @ 15 mls/hr IV .[id number] PRN PRN Reason: Additional IVPB Infusion Ferric Sodium Gluconate Complex 250 mg/ Sodium Chloride 270 mls @ 135 mls/hr IV X1 ONE Stop: 10/23/20 12:59 Last Admin: 10/23/20 11:29 Dose: 135 mls/hr Documented by: Insulin Human Lispro (Insulin Lispro 100 Unit/Ml Insuln.Pen) 0 unit SC [facility]; Protocol Last Admin: 10/23/20 11:55 Dose: 2 units Documented by: Levothyroxine Sodium (Levothyroxine 150 Mcg Tablet) 150 mcg PO DAILY@0600 [facility] Last Admin: 10/23/20 05:42 Dose: 150 mcg Documented by: Levothyroxine Sodium (Levothyroxine 75 Mcg Tablet) 75 mcg PO Rush@0600 [facility] Loperamide HCl (Loperamide 2 Mg Capsule) 2 mg PO Q6H PRN PRN PRN Reason: DIARRHEA/LOOSE STOOLS Last Admin: 10/22/20 18:37 Dose: 2 mg Documented by: Metoprolol Tartrate (Metoprolol Tartrate 25 Mg Tablet) 25 mg PO BID [facility] Last Admin: 10/23/20 08:59 Dose: 25 mg Documented by: Morphine Sulfate (Morphine 2 Mg/Ml Syringe) 2 - 4 mg IV Q2H PRN PRN PRN Reason: Pain Score 4-10 Ondansetron HCl (Ondansetron 4 Mg/2 Ml Vial) 4 mg IV Q8H PRN PRN PRN Reason: NAUSEA Pantoprazole Sodium (Pantoprazole Sodium 20 Mg Tablet) 20 mg PO BID [facility] Last Admin: 10/23/20 08:58 Dose: 20 mg Documented by: Polyethylene Glycol (Polyethylene Glycol 3350 17 Gm Packet) 17 gm PO DAILY [facility] Last Admin: 10/23/20 08:59 Dose: Not Given Documented by: Senna/Docusate Sodium (Senna/Docusate Sodium 1 Tablet) 2 tablet PO BID [facility] Last Admin: 10/23/20 08:59 Dose: Not Given Documented by: Sodium Chloride (0.9% Saline Lock 10 Ml Syringe) 10 - 40 ml IV UD PRN PRN Reason: SALINE FLUSH Last Admin: 10/22/20 10:30 Dose: 10 ml Documented by: Home Medications: Medications to take at Discharge Gabapentin [Neurontin] 600 mg PO BID 08/22/14 Insulin Aspart [Novolog Flexpen] See Protocol SC 4X/DAY 04/05/18 Hydrocodone/Acetaminophen [Hydrocodone-Acetamin 10-325 mg] 1 tab PO 4X/DAY PRN 10/25/18 Docusate Sodium [Colace] 100 mg PO DAILY 06/06/19 Multivit-Min/Iron/Folic Acid/K [Bariatric Mv-Iron 45 mg Cap] 1 ea PO DAILY 06/06/19 Pantoprazole Sodium [Protonix] 20 mg PO BID 06/06/19 Calcium Citrate/Vitamin D3 [Citracal + D Maximum Caplet] 2 ea PO BID 07/04/19 Metoprolol Tartrate [Lopressor (beta laura)] 25 mg PO BID 07/04/19 fluticasone propionate 50 mcg/actuation nasal spray,suspension 2 spray INTRANASAL DAILY PRN 07/23/19 Melatonin 10 mg PO QHS PRN 11/01/19 Duloxetine Hcl [Cymbalta] 60 mg PO DAILY 02/23/20 diphenhydramine HCl 25 mg tablet 25 mg PO DAILY PRN tab 06/04/20 furosemide 20 mg tablet 20 mg PO BID PRN tab 06/04/20 insulin detemir U-100 100 unit/mL (3 mL) subcutaneous pen 17 unit SC BID ml 06/04/20 levothyroxine 150 mcg tablet 150 mcg PO .COMPLEX 06/04/20 nitroglycerin 0.4 mg sublingual tablet 0.4 mg SUBLINGUAL Q5-15M PRN 06/04/20 polyethylene glycol 3350 17 gram/dose oral powder 17 g PO DAILY 06/04/20 Amitriptyline HCl 25 mg PO QHS 09/24/20 Ferrous Sulfate 325 mg PO DAILY 09/24/20 Aspirin [Aspirin, Baby] 81 mg PO BIDCM tab.chew 10/23/20 Doxycycline 100 mg PO BID #8 cap 10/23/20 Following Prescriptions Were Given to Patient: Doxycycline 100 mg PO BID #8 cap Transmission Status: Received by [facility]/pharmacy #[id number] Other Amb Orders: Partial Thromboplast Time Time Frame: 2 Weeks, Facility: [facility], Location: Laboratory Prothrombin Time w/INR Time Frame: 2 Weeks, Facility: [facility], Location: Laboratory Primary Care Physician: Jesus Davila MD [Primary Care Provider] - Medical Necessity - Tobacco Use Smoking Status: Former smoker Meaningful Use Info Meaningful Use Diagnoses (Choose all that apply): None applicable
--- NOTE | 2020-10-23 12:41 | PCM.DC.THR ---
Discharge Activity: May Not Drive - while taking narcotic pain medications. May shower in (days): 1 - only if incision is dry and without drainage. Do NOT soak/submerge in tub/pool/anguiano/stream/hot tub. May resume sexual activity in: 6-8 weeks Weight Bearing Status: Weight bearing as tolerated Elevate: Operative Extremity Additional Activity Instructions:: Wear elastic stockings for 2 weeks. DO NOT use alcohol with narcotic pain medication. DO NOT make important decisions while taking narcotic medication. If you have problems with taking your medication (rash, itching, nausea, etc.) call the office at once. Call your doctor if your incision/area has: Increased Pain/ Swelling, Increased Redness, Foul Smelling Discharge Call your doctor if you observe: Fever of 101 or Higher Remove Dressing in (days):: 10-27-2020 Cleanse incision/area with: Keep Dressing Clean & Dry Additional Instructions: If incision is clean dry and intact may leave the wound open to air and continue showering. If there is continued drainage continue daily dry dressing changes and keep incision clean dry and intact until there is no drainage. Allergies/Adverse Reactions: Allergies adhesive Allergy (Verified 10/15/20 13:40) Hives cephalexin monohydrate [From Keflex] Allergy (Verified 10/15/20 13:40) Hives ciprofloxacin [From Cipro] Allergy (Verified 10/15/20 13:40) Swelling ketorolac tromethamine [From Toradol] Allergy (Verified 10/15/20 13:40) Hives nickel [Nickel] Allergy (Verified 10/15/20 13:40) Other insulin glargine [From Lantus U-100 Insulin] Adverse Reaction (Verified 10/15/20 13:40) Other Injection site pain Voynkfp-Gth-Xdt Reductase Inhibitor Adverse Reaction (Verified 10/15/20 13:40) Other paladium Allergy (Uncoded 10/12/20 13:45) Other Medications to take at Discharge Gabapentin [Neurontin] 600 mg PO BID 08/22/14 Insulin Aspart [Novolog Flexpen] See Protocol SC 4X/DAY 04/05/18 Hydrocodone/Acetaminophen [Hydrocodone-Acetamin 10-325 mg] 1 tab PO 4X/DAY PRN 10/25/18 Docusate Sodium [Colace] 100 mg PO DAILY 06/06/19 Multivit-Min/Iron/Folic Acid/K [Bariatric Mv-Iron 45 mg Cap] 1 ea PO DAILY 06/06/19 Pantoprazole Sodium [Protonix] 20 mg PO BID 06/06/19 Calcium Citrate/Vitamin D3 [Citracal + D Maximum Caplet] 2 ea PO BID 07/04/19 Metoprolol Tartrate [Lopressor (beta laura)] 25 mg PO BID 07/04/19 fluticasone propionate 50 mcg/actuation nasal spray,suspension 2 spray INTRANASAL DAILY PRN 07/23/19 Melatonin 10 mg PO QHS PRN 11/01/19 Duloxetine Hcl [Cymbalta] 60 mg PO DAILY 02/23/20 diphenhydramine HCl 25 mg tablet 25 mg PO DAILY PRN tab 06/04/20 furosemide 20 mg tablet 20 mg PO BID PRN tab 06/04/20 insulin detemir U-100 100 unit/mL (3 mL) subcutaneous pen 17 unit SC BID ml 06/04/20 levothyroxine 150 mcg tablet 150 mcg PO .COMPLEX 06/04/20 nitroglycerin 0.4 mg sublingual tablet 0.4 mg SUBLINGUAL Q5-15M PRN 06/04/20 polyethylene glycol 3350 17 gram/dose oral powder 17 g PO DAILY 06/04/20 Amitriptyline HCl 25 mg PO QHS 09/24/20 Ferrous Sulfate 325 mg PO DAILY 09/24/20 Aspirin [Aspirin, Baby] 81 mg PO BIDCM tab.chew 10/23/20 Doxycycline 100 mg PO BID #8 cap 10/23/20 The following prescriptions were given: Doxycycline 100 mg PO BID #8 cap Transmission Status: Received by [facility]/pharmacy #[id number] Orders to be completed after discharge: Partial Thromboplast Time Time Frame: 2 Weeks, Facility: [facility], Location: Laboratory Prothrombin Time w/INR Time Frame: 2 Weeks, Facility: [facility], Location: Laboratory Primary Care Physician: Jesus Davila MD [Primary Care Provider] - Test Results: Test results from this visit will be discussed in further detail at your follow-up appointment, if applicable. Please Follow Up With: Abdias Rosado PA-C When: 11-03-2020, 11:00 Proposed Discharge Date: 10/23/20
[2020-10-23 14:52] VITALS: BP 143/54; PULSE 78; RESP 18; TEMP 36.8; O2SAT 97
--- NOTE | 2020-10-23 14:54 | NURSING ---
Pt had taken her drsg to her Rt hip off approximately 20min after this nurse assessed pt this morning and it was still on around [address] Bush came in to see pt at noon and asked why i was off. This nurse explained pt must have taken it off bc it was on when this nurse performed the assessment. This nurse reapplied Meplex AG drsg to Rt hip.
--- NOTE | 2020-10-23 17:55 | PCM.PROGNOTE ---
Subjective: Patient was seen and examined today, her was in the room when I examined her. She is alert and appropriate to this examiner, her creatinine is improved, her hemoglobin today was 8.3. Iron was low at 17, she received an injection of Venofer today. Objective: General: Patient is alert and oriented x3, she appears in no distress at this time, she appears her stated age HEENT: Atraumatic, PERRLA, EOMI, Normocephalic Oral: Moist Mucosa Neck: Supple, No JVD, Trachea Midline, Thyroid Normal Size and Texture Lungs: Clear to auscultation, Normal air movement, No rhonchi, No wheeze, No rales Cardiovascular: Regular rate, Regular Rhythm, Normal S1, Normal S2, No murmurs Abdomen: Bowel Sounds Present, Soft, Non Tender, Non-Distended, Obese Extremities: No clubbing, No cyanosis, Capillary Refill Less than 3 Seconds Skin: No rashes, No breakdown Neurological: Cranial nerves II-XII grossly intact, Motor Exam 5/5 strength throughout, Sensory exam intact to light touch and pain, Coordination normal Psych/Mental Status: Patient is alert and oriented x3, she does not appear depressed or anxious. - Physical Exam Vitals/I&O's: Vital Signs Temp Pulse Resp BP Pulse Ox 98.2 F 78 18 143/54 H 97 10/23/20 14:52 10/23/20 14:52 10/23/20 14:52 10/23/20 14:52 10/23/20 14:52 Oxygen Flow Rate (L/min) 6 Oxygen Delivery Method Room Air Weight: 102.6 kg Body Mass Index (BMI) 41.3 Finger Stick Blood Glucose 204 Intake and Output for Last 24 Hours 10/21/20 10/22/20 10/23/20 23:59 23:59 23:59 Intake Total 2762 / 3112 2090 / 2590 1956.67 / 1956.67 Output Total 300 / 700 1000 / 1000 1350 / 1350 Balance 2462 / 2412 1090 / 1590 606.67 / 606.67 Microbiology Past 72 Hours 10/19/20 14:37 Swab (Method) Nasal Screen MRSA/MSSA - Final Laboratory Results 10/22/20 21:44: POC Glucose 190 H 10/23/20 06:13: POC Glucose 170 H 10/23/20 06:41: WBC 7.8, RBC 2.87 L, Hgb 8.3 L, Hct 26.3 L, MCV 91.6, MCH 28.9, MCHC 31.6 L, RDW Std Deviation 65.0 H, RDW Coeff of Karina 19.5 H, Plt Count 149 L, MPV 10.2 10/23/20 06:41: Sodium 141, Potassium 3.7, Chloride 110 H, Carbon Dioxide 26.0, BUN 17, Creatinine 1.07 H, Estim Creat Clear Calc 37.04, Est GFR (MDRD) Af Amer 65, Est GFR (MDRD) Non-Af 53 L, BUN/Creatinine Ratio 15.9, Glucose 184 H, Calcium 8.4 L, Phosphorus 1.9 L, Iron 17 L, Ferritin 383 H, Albumin 2.8 L 10/23/20 11:54: POC Glucose 177 H Medical Necessity - Tobacco Use Smoking Status: Former smoker Assessment/Plan All Active Problems (Last Reviewed 10/12/20 @ 13:49 by Gabbie Matos SENIOR TECHNICAL SUPPORT ANALYST, SENIOR TECHNICAL SUPPORT ANALYST-C) Infected prosthetic mesh of abdominal wall (Resolved) Infected hernioplasty mesh (Resolved) Diverticulitis large intestine (Resolved) Confusion (Resolved) Dehydration (Resolved) Dyspnea (Resolved) Fever (Resolved) UTI (lower urinary tract infection) (Resolved) #1 type 2 diabetes #2 chronic kidney disease stage III-patient has an element of dehydration, this is been corrected with fluid administration #3 essential hypertension #4 morbid obesity #5 osteoarthritis of the right hip-status post minimally invasive right hip replacement postop day #3 #6 hypothyroidism #7 encephalopathy-probably secondary to medication reaction or sleep deprivation, this has resolved at this time and I feel the patient is stable for discharge #8 anemia as an expected consequence of surgery on a patient with known iron deficiency anemia-patient will not need to be transfused today, she is to remain on outpatient iron orally. Inpatient E&M: 17486 Subs Hosp L2
== END 2020-10-23 14:36 | disposition home or self-care (01) | DRG 470 ==
LOC: SDC 16:32 → MS3 16:32
PROVIDERS: Anesthesiology; Internal Medicine; Internal Medicine Nephrology; Admitting Provider Specialist; PCP Internal Medicine; Referring Provider Specialist; Visit Provider Specialist
PROC: 0SR904Z Replacement of Right Hip Joint with Ceramic on Polyethylene Synthetic Substitute, Open Approach (ICD-10-PCS; CPT 27284; principal; 2020-10-20 13:35)
DX: M16.11 Unilateral primary osteoarthritis, right hip (principal); D62 Acute posthemorrhagic anemia; I13.0 Hypertensive heart and chronic kidney disease with heart failure and stage 1 through stage 4 chronic kidney disease, or unspecified chronic kidney disease; I50.32 Chronic diastolic (congestive) heart failure; Z68.41 Body mass index [BMI] 40.0-44.9, adult; N17.9 Acute kidney failure, unspecified; R41.0 Disorientation, unspecified; T41.45XA Adverse effect of unspecified anesthetic, initial encounter; Y92.9 Unspecified place or not applicable; Z20.828 Contact with and (suspected) exposure to other viral communicable diseases; E11.22 Type 2 diabetes mellitus with diabetic chronic kidney disease; E03.9 Hypothyroidism, unspecified; K76.0 Fatty (change of) liver, not elsewhere classified; E66.01 Morbid (severe) obesity due to excess calories; E78.5 Hyperlipidemia, unspecified; E86.0 Dehydration; D50.9 Iron deficiency anemia, unspecified; F32.9 Major depressive disorder, single episode, unspecified; G47.33 Obstructive sleep apnea (adult) (pediatric); H91.90 Unspecified hearing loss, unspecified ear; I25.10 Atherosclerotic heart disease of native coronary artery without angina pectoris; I27.20 Pulmonary hypertension, unspecified; M81.0 Age-related osteoporosis without current pathological fracture; N18.30 Chronic kidney disease, stage 3 unspecified; Z79.4 Long term (current) use of insulin; Z79.891 Long term (current) use of opiate analgesic; Z85.850 Personal history of malignant neoplasm of thyroid; Z98.84 Bariatric surgery status; Z72.820 Sleep deprivation; Z87.19 Personal history of other diseases of the digestive system; Z87.440 Personal history of urinary (tract) infections; Z79.899 Other long term (current) drug therapy
CPT/HCPCS: 36415; 73501; 73502; 76000; 80048; 80069; 82728; 82962; 83036; 83540; 83735; 84443; 85025; 85027; 86850; 86900; 86901; 86920; 86922; 87081; 87426; 93005; 94762; 97110; 97116; 97162; 97166; 97530; 97535; 97802; 99251; C1776; C9803; J7030; J7040; J7050; J7120; P9040; A4216; G0463; J2405; J2916

== ENCOUNTER 2020-11-12 17:53 | Outpatient (RCR) | payer MEDICARE, SELFPAY ==
[2020-10-20 23:47] VITALS: BMI 41.3
[2020-11-12 18:17] LABS: Color, Urine Yellow (Yellow); Glucose, Dipstick Normal (Normal); Ketone-Dipstick Negative (Negative); Leukocyte Esterase-Dipstick 500 /ul (Negative); Nitrite-Dipstick Negative (Negative); Occult Blood-Urine 10 /ul (Negative); Protein-Dipstick 15 mg/dl (Negative); Specific Gravity, Urine 1.005 (1.002-1.030); Urine Bilirubin Dipstick Negative (Negative); Urine Clarity Clear (Clear); Urine Urobilinogen Normal (Normal)
== END 2020-11-12 18:00 | disposition home or self-care (01) ==
LOC: HHLAB 17:53
PROVIDERS: PCP Internal Medicine; Visit Provider Internal Medicine
DX: N39.0 Urinary tract infection, site not specified (principal)
CPT/HCPCS: 81002; 87077; 87086; 87088; 87186

== ENCOUNTER → 2020-11-29 11:13 | Outpatient (CLI) | payer MEDICARE, SELFPAY ==
[2020-06-15 11:11] VITALS: BMI 43.8
[2020-10-20 23:47] VITALS: BMI 41.3
[2020-11-29 11:57] LABS: Hematocrit 32.7 % (37-47); Hemoglobin 10.5 g/dL (12.0-15.0); Mean Corp Hgb Conc 32.1 g/dL (32-36); Mean Corpuscular Hgb 31.4 pg (27.0-32.0); Mean Corpuscular Volume 97.9 fL (81-99); Mean Platelet Vol. 9.9 fl (6.2-12.0); Platelet Count 216 K/mm3 (150-450); RBC Distribution Width CV 17.7 % (11.6-14.6); RBC Distribution Width SD 63.3 fl (35.1-43.9); Red Blood Count 3.34 M/mm3 (4.2-5.4); White Blood Count 6.8 K/mm3 (4.4-11.0)
[2020-11-29 12:19] LABS: BUN 38 mg/dL (7-18); BUN/Creat Ratio 20.5 RATIO (10-20); Calcium,Total 9.4 mg/dL (8.5-10.1); Chloride 102 mmol/L (98-107); Creatinine, Serum 1.85 mg/dL (0.55-1.02); EST Glomerular Filtration Rate 28 mL/min (>60); Est Glom Filt Rate - Afr Amer 34 mL/min (>60); Glucose 145 mg/dL (74-106); Phosphorus 4.3 mg/dL (2.5-4.9); Potassium 4.5 mmol/L (3.5-5.1); Sodium Level 136 mmol/L (136-145)
== END ==
PROVIDERS: PCP Internal Medicine; Referring Provider Internal Medicine Nephrology; Visit Provider Internal Medicine Nephrology
DX: N18.31 Chronic kidney disease, stage 3a (principal); D50.9 Iron deficiency anemia, unspecified
CPT/HCPCS: 36415; 80069; 85027

== ENCOUNTER → 2020-12-16 14:38 | Outpatient (CLI) | payer MEDICARE, SELFPAY ==
[2020-10-20 23:47] VITALS: BMI 41.3
[2020-12-16 15:56] LABS: Albumin, Serum 3.9 g/dL (3.2-5.0); BUN 20 mg/dL (7-18); BUN/Creat Ratio 15.9 RATIO (10-20); Calcium,Total 9.4 mg/dL (8.5-10.1); Chloride 104 mmol/L (98-107); Creatinine, Serum 1.26 mg/dL (0.55-1.02); EST Glomerular Filtration Rate 44 mL/min (>60); Est Glom Filt Rate - Afr Amer 53 mL/min (>60); Glucose 135 mg/dL (74-106); Potassium 4.4 mmol/L (3.5-5.1); Sodium Level 137 mmol/L (136-145)
== END ==
LOC: LAB.FUTURE 14:39 → LAB 12-17 06:35
PROVIDERS: PCP Internal Medicine; Referring Provider Internal Medicine Nephrology; Visit Provider Internal Medicine Nephrology
DX: N39.0 Urinary tract infection, site not specified (principal); N17.9 Acute kidney failure, unspecified
CPT/HCPCS: 36415; 80069; 87077; 87086; 87088; 87186

== ENCOUNTER 2020-12-24 10:08 | Emergency (ER) | payer MEDICARE, SELFPAY ==
[2020-10-20 23:47] VITALS: BMI 41.3
[2020-12-24] VITALS (8 sets, daily range): BP systolic 97–127; BP diastolic 54–83; PULSE 64–77; RESP 16–19; TEMP 36.9–37.2; O2SAT 94–97; BMI 43.2
--- NOTE | 2020-12-24 10:17 | EKG12_ITS ---
Test Reason : GASTRIC PAIN Blood Pressure : / mmHG Vent. Rate : 070 BPM Atrial Rate : 070 BPM P-R Int : 164 ms QRS Dur : 086 ms QT Int : 416 ms P-R-T Axes : 019 -49 016 degrees QTc Int : 449 ms Normal sinus rhythm Left axis deviation Low voltage QRS Abnormal ECG Confirmed by MICHELLE LOPEZ, INOCENTE ([id number]), research editor PRABHA ORELLANA ([id number]) on 12/28/2020 9:11:45 AM Referred By: JOANNE Confirmed By:CHRISTINA MARTINEZ MD
--- NOTE | 2020-12-24 10:43 | ED.VISSUMM ---
- ER Visit Summary Date of Service: 12/24/20 Chief Complaint: Redness to the legs and fever History of Present Illness: The patient is a [address] Davila and Dr. Vance. Patient reports that she is currently on Augmentin for a kidney infection. States that she has had dysuria and frequency as well as cloudy urine for the past 8 days. She was placed on Augmentin 3 days ago and reports the dysuria has resolved and her urine does not look as cloudy. Patient reports that last night she noticed redness to her legs bilaterally. States that she has a pain that is like needles and is 5 out of 10 in severity. This morning she had a fever of 101 degrees. She is also had chills. Patient denies any chest pain, cough, shortness of breath. She reports that she is had diarrhea since having a gastric sleeve approximately 1 year ago. She has had 1 episode today. No blood in her stools or black tarry stools. She complains of myalgias and a headache that is 4-10 in severity. It is an aching pain that is occipital in location. She does have a history of similar headaches. Patient got her second Covid vaccine on December 01. She does wear a mask when she goes out. She denies sick contacts. Physical Examination: Vitals: 98.9, 97/54, 77, 16, 96% on room air which is not hypoxic. General: Well-nourished and well-developed. Head: Normocephalic atraumatic. Neck: Supple, no lymphadenopathy. No JVD. Nontender. Cardiovascular: Regular rate and rhythm. No murmurs. Respiratory: No respiratory distress. Clear to auscultation bilaterally. Abdominal: Soft, nontender, nondistended, normal bowel sounds. No guarding, rebound, or peritoneal signs. Back: Nontender. Extremities: Nontender, 2+ pitting edema to her lower extremities bilaterally. No palpable DP pulse bilaterally. Less than 2-second capillary refill. Skin: Erythema and warmth to her legs bilaterally. Neurologic: Alert and oriented ?3. Cranial nerves II through XII are intact. Normal strength and sensation. Psych: Normal affect. Test Results: AG is sinus at 70. Is unchanged from September 2020. CBC shows a white count of 11.3 with an H&H of 10.2 and 32.2. Chem-7 shows a glucose 162, BUN of 20,, creatinine 1.42. LFTs are normal. INR is 1.1. PTT is 30.7. UA shows leukocytes, 50-100 white blood cells, 1+ bacteria, and 5-10 epithelial cells. Lactic acid is 1.6. Clinical Impression(s) from Imaging Studies Chest X-Ray 12/24/20 11:05 IMPRESSION: Cardiomegaly. Stable blunting of the left costophrenic angle. Electronically Signed: Silvino Ware MD at 11:24 EDT , Service support , Emergency Department Course and Treatment: Patient had an IV placed. She was given vancomycin IV. When her urine returned she was given a dose of Rocephin IV. Patient does have hives to Keflex. She does not recognize the name of Rocephin and is open to getting this to treat her urinary tract infection. Chart review shows patient had a urine culture on December 16 that showed Klebsiella that was resistant to ampicillin and nitrofurantoin. Treatment Plan: The patient was discussed with Dr. Nguyen who has seen her in the emergency department. The area of redness and warmth to her legs bilaterally is not felt to be due to cellulitis. I suspect this is from the ANTONINA hose that she wore last night. Also could be a reaction to the Augmentin that she has been placed on. She does not have a sulfa allergy and her Klebsiella was sensitive to Bactrim. She was given a dose of Bactrim p.o. Patient feels comfortable going home. She will be discharged instructions to follow-up with her primary care physician in 3 to 5 days. Return to the emergency department for any worsening symptoms. Disposition: To home in improved and stable condition.. Impression: 1. UTI. 2. Rash to lower extremities bilaterally. 3. Chronic renal insufficiency. This note was generated with [employer] software. It may contain incorrect words, spelling, and punctuation that were not noted in review of the chart prior to signing ED Disposition - Plan for ED Patient: Instructions: ED Bladder Infection, Female (Adult) Prescriptions: Smz/Tmp Ds [Bactrim Ds] 1 tablet PO BID #10 tablet Referrals: Jesus Davila MD [Primary Care Provider] - 3-5 Days
[2020-12-24 10:44] LABS: Absolute Lymphocyte Count 2.36 X10^3/uL (0.83-4.51); Absolute Neutrophil Count 7.9 X10^3/uL (2.0-7.7); Basophil# 0.03 X10^3/uL; Basophil% 0.3 % (0-1); Eosinophil# 0.13 X10^3/uL; Eosinophils% 1.1 % (0-5); Hematocrit 32.2 % (37-47); Hemoglobin 10.2 g/dL (12.0-15.0); Lymphocyte # 2.36 X10^3/ul (0.83-4.51); Lymphocyte % 20.8 % (19-41); Mean Corp Hgb Conc 31.7 g/dL (32-36); Mean Corpuscular Hgb 32.2 pg (27.0-32.0); Mean Corpuscular Volume 101.6 fL (81-99); Mean Platelet Vol. 9.6 fl (6.2-12.0); Monocyte# 0.85 X10^3/uL; Monocyte% 7.5 % (0-10); NRBC Flagged by Analyzer 0 % (0-5); Neutrophil # 7.89 X10^3/uL (2.7-7.7); Neutrophil % 69.6 % (47-70); Platelet Count 174 K/mm3 (150-450); RBC Distribution Width CV 16.3 % (11.6-14.6); RBC Distribution Width SD 60.8 fl (35.1-43.9); Red Blood Count 3.17 M/mm3 (4.2-5.4); White Blood Count 11.3 K/mm3 (4.4-11.0)
[2020-12-24 10:53] LABS: International Normalized Ratio 1.1; Prothrombin Time (Protime)PT. 13.9 SECONDS (11.7-14.9)
[2020-12-24 10:54] LABS: Partial Thromboplast Time 30.7 Seconds (24.1-36.2)
[2020-12-24 11:03] LABS: AST(SGOT) 20 U/L (15-37); Alanine Aminotransfer ALT/SGPT 37 U/L (13-56); Albumin, Serum 3.5 g/dL (3.2-5.0); Alkaline Phosphatase 77 U/L (45-117); Anion Gap 4 (5-15); BUN 20 mg/dL (7-18); BUN/Creat Ratio 14.1 RATIO (10-20); Calcium,Total 8.9 mg/dL (8.5-10.1); Chloride 104 mmol/L (98-107); Creatinine, Serum 1.42 mg/dL (0.55-1.02); EST Glomerular Filtration Rate 39 mL/min (>60); Est Glom Filt Rate - Afr Amer 47 mL/min (>60); Estimated Creatinine Clearance 25.34 ml/min; Globulin 3.5 g/dL (2.2-4.2); Glucose 162 mg/dL (74-106); Potassium 4.1 mmol/L (3.5-5.1); Sodium Level 138 mmol/L (136-145)
--- NOTE | 2020-12-24 11:05 | RAD_ITS ---
STUDY: X-RAY CHEST REASON FOR EXAM: Female, 75 years old. Fever TECHNIQUE: Single AP portable view of the chest. COMPARISON: Comparison is made with prior study 06/15/2020. FINDINGS: EKG electrodes are seen. Stable blunting of the left costophrenic angle. There is moderate cardiac enlargement. Normal mediastinum and kristen. Normal visualized pulmonary arteries. Normal visualized aortic arch and descending thoracic aorta. There are diffuse degenerative changes of the visualized thoracic spine. Normal visualized ribs, clavicles, and shoulders. There is no demonstrated abnormality of the visualized soft tissue structures of the upper abdomen. RAD/Chest 1 View (Portable) IMPRESSION: Cardiomegaly. Stable blunting of the left costophrenic angle. Electronically Signed: Silvino Ware MD at 11:24 EDT , Service support ,
[2020-12-24 11:06] LABS: Lactic Acid 1.6 mmol/L (0.4-1.9)
[2020-12-24] MEDS: 0.9% Normal Saline 1,000 ML 999 ML IV (11:21)
[2020-12-24 11:26] LABS: Mucous, Urine 0 SEEN /hpf (<or=2+); Red Blood Cells-Urine 0 SEEN /hpf (0-5)
[2020-12-24 11:28] LABS: Color, Urine Straw (Yellow); Glucose, Dipstick Normal (Normal); Ketone-Dipstick Negative (Negative); Leukocyte Esterase-Dipstick 100 /ul (Negative); Nitrite-Dipstick Negative (Negative); Occult Blood-Urine Negative /ul (Negative); Protein-Dipstick Negative (Negative); Urine Bilirubin Dipstick Negative (Negative); Urine Clarity Sl. Cloudy (Clear); Urine Urobilinogen Normal (Normal)
[2020-12-24 11:37] LABS: Bacteria 1+ /hpf (None Seen); Renal Epithelial Cells 0-5 SEEN /hpf (0-5); Squamous Epithelial Cells - UA 5-10 SEEN /hpf (5-10); White Blood Cells 50-100 SEEN /hpf (0-5); White Cell Cast 0-5 SEEN /lpf (None Seen)
--- NOTE | 2020-12-24 12:40 | PCM.CONS.GEN ---
Reason for Consult Date of Consultation: 12/24/20 Reason for Consultation: leg rash and dysuria History of Present Illness: The patient is a 75 year old F presents with dysuria as well as lower extremity redness. Patient was wearing ANTONINA hose on her legs and the took him off noticed a rash on her legs. Patient also had a low-grade temperature last night. She went to the emergency room. Patient was previously treated with a Augmentin for urinary tract infection which grew out Klebsiella that was sensitive to Augmentin but resistant to ampicillin. Patient stated that her dysuria is improved overall. Patient was wearing some ANTONINA hose on her lower extremities and noticed redness on her legs and was concerned and sought attention in the emergency room. Patient is never had redness on her legs before and has worn these ANTONINA hose before. She denies any new detergents. No rash noted elsewhere. [] Past Medical History Past Medical History (Chronic Problems): Chronic Problems (Last Reviewed 12/24/20 @ 12:[address] 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 Clint Nguyen DO) Atherosclerotic heart disease of [place] coronary artery without angina pectoris (Chronic) I25.10 Nonobstructive CAD Chronic diastolic (congestive) heart failure (Chronic) I50.32 Essential (primary) hypertension (Chronic) I10 Hyperlipidemia (Chronic) E78.5 History of thyroid cancer (Chronic) Z85.850 Pulmonary hypertension (Chronic) I27.20 ABDI (obstructive sleep apnea) (Chronic) G47.33 Fatty liver K76.0 Allergic contact dermatitis due to metals L23.0 CKD (chronic kidney disease) stage 3, GFR 30-59 ml/min N18.3 CKD stage 3 due to type 2 diabetes mellitus E11.22, N18.3 DM type 2 causing CKD stage 3 E11.22, N18.3 Degenerative arthritis of hip M16.9 Degenerative arthritis of knee M17.10 Depressive disorder F32.9 Morbid obesity E66.01 Myalgia M79.10 ABDI (obstructive sleep apnea) G47.33 Osteoarthritis M19.90 Sensorineural hearing loss (SNHL), bilateral H90.3 Type 2 diabetes mellitus E11.9 Bowel obstruction K56.609 Diverticulitis large intestine K57.32 Dyspnea R06.00 Dyspnea (Resolved) R06.00 Edema R60.9 History of left heart catheterization Onset Date: 09/13/17 Z98.890 Infected hernioplasty mesh T85.79XA Infected prosthetic mesh of abdominal wall T85.79XA Pneumonia J18.9 SBO (small bowel obstruction) K56.609 Small bowel obstruction K56.609 Allergies adhesive Allergy (Verified 12/24/20 10:10) Hives ampicillin Allergy (Verified 12/24/20 12:40) Rash cephalexin monohydrate [From Keflex] Allergy (Verified 12/24/20 10:10) Hives ciprofloxacin [From Cipro] Allergy (Verified 12/24/20 10:10) Swelling ketorolac [From Toradol] Allergy (Verified 12/24/20 10:10) Other ketorolac tromethamine [From Toradol] Allergy (Verified 12/24/20 10:10) Hives nickel [Nickel] Allergy (Verified 12/24/20 10:10) Other insulin glargine [From Lantus U-100 Insulin] Adverse Reaction (Verified 12/24/20 10:10) Other Injection site pain [id number]-Rhu Reductase Inhibitor Adverse Reaction (Verified 12/24/20 10:10) Other paladium Allergy (Uncoded 12/24/20 10:10) Other Home Medications: Ambulatory Orders Medication Instructions Recorded Gabapentin [Neurontin] 600 mg PO BID 08/22/14 Insulin Aspart [Novolog Flexpen] See Protocol SC 4X/DAY 04/05/18 Hydrocodone/Acetaminophen 1 tab PO 4X/DAY PRN 10/25/18 [Hydrocodone-Acetamin 10-325 mg] Docusate Sodium [Colace] 100 mg PO DAILY 06/06/19 Multivit-Min/Iron/Folic Acid/K 1 ea PO DAILY 06/06/19 [Bariatric Mv-Iron 45 mg Cap] Pantoprazole Sodium [Protonix] 20 mg PO BID 06/06/19 Calcium Citrate/Vitamin D3 2 ea PO BID 10/25/19 [Citracal + D Maximum Caplet] Metoprolol Tartrate [Lopressor 25 mg PO BID 07/04/19 (beta laura)] fluticasone propionate 50 2 spray INTRANASAL DAILY PRN 07/23/19 mcg/actuation nasal spray,suspension Melatonin 10 mg PO QHS PRN 11/01/19 Duloxetine Hcl [Cymbalta] 60 mg PO DAILY 02/23/20 diphenhydramine HCl 25 mg tablet 25 mg PO DAILY PRN tab 06/04/20 furosemide 20 mg tablet 20 mg PO BID PRN tab 06/04/20 insulin detemir U-100 100 unit/mL 17 unit SC BID ml 06/04/20 (3 mL) subcutaneous pen levothyroxine 150 mcg tablet 150 mcg PO .COMPLEX 06/04/20 nitroglycerin 0.4 mg sublingual 0.4 mg SUBLINGUAL Q5-15M PRN 06/04/20 tablet polyethylene glycol 3350 17 17 g PO DAILY 06/04/20 gram/dose oral powder Amitriptyline HCl 25 mg PO QHS 09/24/20 Ferrous Sulfate 325 mg PO DAILY 09/24/20 Aspirin [Aspirin, Baby] 81 mg PO BIDCM tab.chew 10/23/20 Doxycycline 100 mg PO BID #8 cap 10/23/20 Smz/Tmp Ds [Bactrim Ds] 1 tablet PO BID #10 tab 12/24/20 Surgical History: Surgical History (Last Reviewed 12/24/20 @ 12:[address] Clint Nguyen, DO) H/O colonoscopy Z98.890 06/06/2004 H/O hernia repair Z98.890, Z87.19 x7, 09/14/2005 H/O thyroidectomy Z98.890 H/O total hysterectomy Z90.710 05/20/2001 H/O umbilical hernia repair Z98.890, Z87.19 , 2001, 2006 History of bariatric surgery Z98.84 History of bladder suspension procedure Z98.890, Z87.448 05/20/2001 History of total left knee replacement Z96.652 History of total right knee replacement Z96.651 Hx of appendectomy Z90.49 05/30/2001 Hx of cholecystectomy Z90.49 05/20/2001 Right kidney lesion removal 03/10/91 cataract lens implant akshat linares Surgical History: - - Bilateral total knee replacement, hysterectomy, hernia repair with follow-up intervention secondary to SBO, cholecystectomy, appendectomy. Psychiatric History: Anxiety, Depression [employer] History: No pertinent [employer] history Smoking Status: Never smoker - *Family History Maternal Family History: Family History (Last Reviewed 12/24/20 @ 12:[address] Clint Nguyen DO) Father Myocardial infarction Mother COPD (chronic obstructive pulmonary disease) Brother AAA (abdominal aortic aneurysm) Lung cancer Pancreatitis Sister Hypertension Diabetes CAD (coronary artery disease) partial detached retina History Items: - Paternal Family History: Family History (Last Reviewed 12/24/20 @ 12:[address] Clint Nguyen DO) Father Myocardial infarction Mother COPD (chronic obstructive pulmonary disease) Brother AAA (abdominal aortic aneurysm) Lung cancer Pancreatitis Sister Hypertension Diabetes CAD (coronary artery disease) partial detached retina History Items: - Sibling Family History: Family History (Last Reviewed 12/24/20 @ 12:[address] Clint Nguyen DO) Father Myocardial infarction Mother COPD (chronic obstructive pulmonary disease) Brother AAA (abdominal aortic aneurysm) Lung cancer Pancreatitis Sister Hypertension Diabetes CAD (coronary artery disease) partial detached retina History Items: - Review of Systems Constitutional: Denies: Anorexia, Chills, Fever Cardiovascular: Reports: Edema. Denies: Chest Pain, Palpitations Respiratory: Denies: Cough, Shortness of breath at rest, Sputum production Gastrointestinal: Denies: Abdominal Pain, Nausea, Vomiting Skin: Reports: Rash Hematologic/ Lymphatic: Denies: Easy Bruising, Easy Bleeding, Hx of blood clot Comment: All review of systems were negative except as mentioned above in the history of present illness and the other review of systems. - Physical Exam Vitals/I&O's: Vital Signs Temp Pulse Resp BP Pulse Ox 36.9 C 71 19 H 98/65 94 12/24/20 12:03 12/24/20 12:02 12/24/20 12:02 12/24/20 12:02 12/24/20 12:02 Oxygen Delivery Method Room Air Weight: 102.058 kg Body Mass Index (BMI) 43.2 Finger Stick Blood Glucose 204 General: Alert, Cooperative, No apparent distress HEENT: Atraumatic, Normocephalic Oral: Moist Mucosa, No Gingival or Mucosal Lesions/ Ulcerations Neck: No Nodes, Thyroid Normal Size and Texture Lungs: Clear to auscultation, Normal air movement, No rhonchi, No wheeze Cardiovascular: Regular rate, Regular Rhythm, Normal S1, Normal S2 Abdomen: Bowel Sounds Present, Soft, Non Tender, Non-Distended, Obese Extremities: Edema Skin: - - Patient has a macular rash confined to her lower extremities primarily concentrated around her ankles with few satellite areas more proximally. Slight warmth, no induration. This is bilateral. No rash noted elsewhere. Psych/Mental Status: Normal Affect, Appropriate Microbiology Past 72 Hours 12/24/20 11:50 Mucosa - Nose SARS-CoV-2 Antigen (Rapid) - Final Laboratory Results 12/24/20 10:30: WBC 11.3 H, RBC 3.17 L, Hgb 10.2 L, Hct 32.2 L, MCV 101.6 H, MCH 32.2 H, MCHC 31.7 L, RDW Std Deviation 60.8 H, RDW Coeff of Karina 16.3 H, Plt Count 174, MPV 9.6, Immature Gran % (Auto) 0.700, Neut % (Auto) 69.6, Lymph % (Auto) 20.8, [place] % (Auto) 7.5, Eos % (Auto) 1.1, Baso % (Auto) 0.3, Absolute Neuts (auto) 7.9 H, Absolute Lymphs (auto) 2.36, Nucleated RBC % 0 12/24/20 10:30: PT 13.9, INR 1.1, APTT 30.7 12/24/20 10:30: Sodium 138, Potassium 4.1, Chloride 104, Carbon Dioxide 30.0, Anion Gap 4 L, BUN 20 H, Creatinine 1.42 H, Estim Creat Clear Calc 25.34, Est GFR (MDRD) Af Amer 47 L, Est GFR (MDRD) Non-Af 39 L, BUN/Creatinine Ratio 14.1, Glucose 162 H, Calcium 8.9, Total Bilirubin 0.50, AST 20, ALT 37, Alkaline Phosphatase 77, Total Protein 7.0, Albumin 3.5, Globulin 3.5, Albumin/Globulin Ratio 1.0 12/24/20 10:30: Lactic Acid 1.6 12/24/20 11:19: Urine Color Straw, Urine Clarity Sl. Cloudy, Urine pH 6.0, Ur Specific [place] 1.010, Urine Protein Negative, Urine Glucose (UA) Normal, Urine Ketones Negative, Urine Occult Blood Negative, Urine Nitrite Negative, Urine Bilirubin Negative, Urine Urobilinogen Normal, Ur Leukocyte Esterase 100 H, Urine RBC 0 SEEN, Urine WBC 50-100 SEEN, Ur Squamous Epith Cells 5-10 SEEN, Ur Renal Epithelial Cell 0-5 SEEN, Urine Bacteria 1+, WBC Casts 0-5 SEEN, Urine Mucus 0 SEEN Assessment/Plan All Active Problems (Last Reviewed 12/24/20 @ 12:[address] Clint Nguyen, DO) Confusion (Resolved) Dehydration (Resolved) Dyspnea (Resolved) Fever (Resolved) UTI (lower urinary tract infection) (Resolved) 1. Rash Etiology either contact dermatitis versus fixed drug reaction or early onset drug rash. Atypical presentation for drug rash primarily involving her ankles but is unclear if this is just early stages and has not yet fully become systemic. But also could be related with the patient's ANTONINA hose though she denies any new detergents and has worn these before without any incident. I do not feel that this is cellulitis. Discussed with the patient and her and the plan would be to discontinue the potential aggravating factors which would be the antibiotic, Augmentin, and the ANTONNIA hose. I did recommend hypoallergenic detergents, such as Dreft, for the time being. I did advise him that if it does get worse to notify physician or come back into the emergency room. If in the event that this is cellulitis, the Bactrim should help. I have added penicillin to the patient's allergy list. 2. UTI Klebsiella Treat with Bactrim for 5 more days. Patient does not have any known allergies to sulfa drugs. 3. Chronic kidney disease stage IIIb Currently stable Follow-up with Dr. Vance as outpatient 4. Lower extremity edema Patient on furosemide 20 mg. Continue the dosing. Discussed with Dr. Carvalho. Plan is to discharge patient from the emergency room. Office Visits / Consults: [id number] OP Consult L3
[2020-12-24] MEDS: Smz/Tmp Ds Tablet 1 TABLET PO (13:14)
== END 2020-12-24 13:19 | disposition home or self-care (01) ==
LOC: ED 11:12
PROVIDERS: Emergency Provider Emergency Medicine; PCP Internal Medicine
DX: N39.0 Urinary tract infection, site not specified (principal); R21 Rash and other nonspecific skin eruption; E11.22 Type 2 diabetes mellitus with diabetic chronic kidney disease; I13.0 Hypertensive heart and chronic kidney disease with heart failure and stage 1 through stage 4 chronic kidney disease, or unspecified chronic kidney disease; I50.32 Chronic diastolic (congestive) heart failure; N18.32 Chronic kidney disease, stage 3b; R19.7 Diarrhea, unspecified; E66.01 Morbid (severe) obesity due to excess calories; Z68.41 Body mass index [BMI] 40.0-44.9, adult; E78.5 Hyperlipidemia, unspecified; F32.9 Major depressive disorder, single episode, unspecified; F41.9 Anxiety disorder, unspecified; M19.90 Unspecified osteoarthritis, unspecified site; H90.3 Sensorineural hearing loss, bilateral; G47.33 Obstructive sleep apnea (adult) (pediatric); I25.10 Atherosclerotic heart disease of native coronary artery without angina pectoris; I27.20 Pulmonary hypertension, unspecified; K76.0 Fatty (change of) liver, not elsewhere classified; E78.00 Pure hypercholesterolemia, unspecified; Z87.19 Personal history of other diseases of the digestive system; Z87.01 Personal history of pneumonia (recurrent); Z85.850 Personal history of malignant neoplasm of thyroid; Z98.84 Bariatric surgery status; Z79.4 Long term (current) use of insulin; Z79.82 Long term (current) use of aspirin; Z79.899 Other long term (current) drug therapy
CPT/HCPCS: 36415; 71045; 80053; 81001; 83605; 85025; 85610; 85730; 87040; 87086; 87426; 93005; 96365; 96366; 99285; J7030; J7040; J7050; A4216

== ENCOUNTER → 2021-01-18 20:09 | Outpatient (CLI) | payer MEDICARE, SELFPAY ==
[2020-12-28 15:11] VITALS: BMI 44.5
== END ==
PROVIDERS: PCP Internal Medicine; Visit Provider Psychiatry & Neurology Sleep Medicine
DX: G47.33 Obstructive sleep apnea (adult) (pediatric) (principal); Z99.89 Dependence on other enabling machines and devices
CPT/HCPCS: 95811

== ENCOUNTER → 2021-01-19 15:53 | Outpatient (CLI) | payer MEDICARE, SELFPAY ==
[2020-10-20 23:47] VITALS: BMI 41.3
[2020-12-28 15:11] VITALS: BMI 44.5
[2021-01-19 17:15] LABS: Hematocrit 36.5 % (37-47); Hemoglobin 11.6 g/dL (12.0-15.0); Mean Corp Hgb Conc 31.8 g/dL (32-36); Mean Corpuscular Hgb 31.5 pg (27.0-32.0); Mean Corpuscular Volume 99.2 fL (81-99); Mean Platelet Vol. 10.1 fl (6.2-12.0); Platelet Count 219 K/mm3 (150-450); RBC Distribution Width CV 14.7 % (11.6-14.6); RBC Distribution Width SD 53.8 fl (35.1-43.9); Red Blood Count 3.68 M/mm3 (4.2-5.4); White Blood Count 7.6 K/mm3 (4.4-11.0)
[2021-01-19 18:21] LABS: Albumin, Serum 3.9 g/dL (3.2-5.0); BUN 24 mg/dL (7-18); BUN/Creat Ratio 16.8 RATIO (10-20); Calcium,Total 8.9 mg/dL (8.5-10.1); Chloride 103 mmol/L (98-107); Creatinine, Serum 1.43 mg/dL (0.55-1.02); EST Glomerular Filtration Rate 38 mL/min (>60); Est Glom Filt Rate - Afr Amer 46 mL/min (>60); Ferritin 227 ng/mL (8-252); Glucose 165 mg/dL (74-106); Iron 64 ug/dL (50-170); Iron Binding Capacity,Total 302 ug/dL (250-450); PERCENT IRON SATURATION 21.2 % (15.0-55.0); Phosphorus 3.6 mg/dL (2.5-4.9); Potassium 4.2 mmol/L (3.5-5.1); Sodium Level 139 mmol/L (136-145)
== END ==
PROVIDERS: PCP Internal Medicine; Referring Provider Internal Medicine Nephrology; Visit Provider Internal Medicine Nephrology
DX: D50.9 Iron deficiency anemia, unspecified (principal); N17.9 Acute kidney failure, unspecified; N18.31 Chronic kidney disease, stage 3a
CPT/HCPCS: 36415; 80069; 82728; 83540; 83550; 85027

== ENCOUNTER → 2021-04-30 10:53 | Outpatient (CLI) | payer MEDICARE, SELFPAY ==
[2020-12-28 15:11] VITALS: BMI 44.5
[2021-04-30 11:55] LABS: Hematocrit 35.3 % (37-47); Hemoglobin 11.7 g/dL (12.0-15.0); Mean Corp Hgb Conc 33.1 g/dL (32-36); Mean Corpuscular Hgb 32.3 pg (27.0-32.0); Mean Corpuscular Volume 97.5 fL (81-99); Mean Platelet Vol. 10.1 fl (6.2-12.0); Platelet Count 212 K/mm3 (150-450); RBC Distribution Width CV 14.3 % (11.6-14.6); RBC Distribution Width SD 50.5 fl (35.1-43.9); Red Blood Count 3.62 M/mm3 (4.2-5.4); White Blood Count 8.3 K/mm3 (4.4-11.0)
[2021-04-30 12:03] LABS: Protein, Urine (Random) 10.9 mg/dL (<11.9); Protein:Creat Ratio 157 mg/g CRE (0-200)
[2021-04-30 12:42] LABS: Albumin, Serum 3.7 g/dL (3.2-5.0); BUN 22 mg/dL (7-18); BUN/Creat Ratio 17.6 RATIO (10-20); Calcium,Total 9.3 mg/dL (8.5-10.1); Chloride 102 mmol/L (98-107); Creatinine, Serum 1.25 mg/dL (0.55-1.02); EST Glomerular Filtration Rate 45 mL/min (>60); Est Glom Filt Rate - Afr Amer 54 mL/min (>60); Ferritin 231 ng/mL (8-252); Glucose 173 mg/dL (74-106); Iron 85 ug/dL (50-170); Iron Binding Capacity,Total 290 ug/dL (250-450); Phosphorus 4.1 mg/dL (2.5-4.9); Potassium 4.2 mmol/L (3.5-5.1); Sodium Level 140 mmol/L (136-145)
== END ==
PROVIDERS: PCP Internal Medicine; Referring Provider Internal Medicine Nephrology; Visit Provider Internal Medicine Nephrology
DX: E11.22 Type 2 diabetes mellitus with diabetic chronic kidney disease (principal); N18.31 Chronic kidney disease, stage 3a; D50.9 Iron deficiency anemia, unspecified
CPT/HCPCS: 36415; 80069; 82570; 82728; 83540; 83550; 84156; 85027

== ENCOUNTER → 2021-08-08 10:11 | Outpatient (CLI) | payer MEDICARE, SELFPAY ==
[2021-08-08 11:56] LABS: Anion Gap 6 (5-15); BUN 24 mg/dL (7-18); BUN/Creat Ratio 16.6 RATIO (10-20); Chloride 104 mmol/L (98-107); Creatinine, Serum 1.45 mg/dL (0.55-1.02); EST Glomerular Filtration Rate 38 mL/min (>60); Est Glom Filt Rate - Afr Amer 45 mL/min (>60); Glucose 171 mg/dL (74-106); Potassium 4.1 mmol/L (3.5-5.1); Sodium Level 140 mmol/L (136-145)
== END ==
PROVIDERS: PCP Internal Medicine; Referring Provider Internal Medicine Nephrology; Visit Provider Internal Medicine Nephrology
DX: N18.9 Chronic kidney disease, unspecified (principal); N17.9 Acute kidney failure, unspecified
CPT/HCPCS: 36415; 80048

== ENCOUNTER 2021-09-13 07:10 | Outpatient (CLI) | payer MEDICARE, SELFPAY ==
--- NOTE | 2021-09-13 13:11 | STRESSREP ---
Stress Test Report Date: 09-13-2021 Procedure: Pharmacologic stress nuclear imaging study Indications: Shortness of breath/dyspnea on exertion; CAD; preoperative cardiovascular evaluation Consent: Per the patient Procedure: The patient underwent pharmacologic (Regadenoson 0.4mg ) evaluation with a peak heart rate of 93 beats per minute (63%predicted maximal heart rate) and a peak blood pressure of 118/70 mmHg. The baseline ECG demonstrated normal sinus rhythm; low voltage QRS; poor R wave progression. The peak pharmacologic ECG demonstrated no obvious ECG changes. There were no cardiac dysrhythmias pretest, during pharmacologic infusion, or recovery. There was no complaint of chest discomfort during pharmacologic infusion or recovery. The examination was discontinued secondary to completion of protocol. Impression: 1. Pharmacologic (Regadenoson) evaluation 2. Peak pharmacologic ECG with no obvious ECG changes. 3. There were no cardiac dysrhythmias pretest, during pharmacologic infusion, or recovery. 4. Nuclear images pending Myocardial perfusion imaging study: Technique: The patient was injected with 15.0 millicuries of technetium 99m Cardiolite and subsequently rest SPECT Cardiolite nuclear imaging was obtained in the horizontal long, vertical long, and short axis views. The patient underwent pharmacologic (Regadenoson) evaluation with a peak heart rate of 93 beats per minute (63% percent predicted maximal heart rate) and a peak blood pressure of 118/70 mmHg. The patient was injected with 45.0 millicuries of technetium 99m Cardiolite and subsequently stress SPECT Cardiolite nuclear imaging was obtained in the horizontal long, vertical long, and short axis views. A gated Cardiolite study at peak stress was obtained. Interpretation: Rest and stress SPECT Cardiolite nuclear imaging status post realignment, normalization, and attenuation correction demonstrate relative uniform tracer uptake and myocardial perfusion appearing within normal limits. There is end systolic thickening and brightening. The gated Cardiolite study demonstrates myocardial thickening and inward wall motion. The reported LVEF is 79%. Impression: 1. Rest and stress SPECT Cardiolite nuclear imaging demonstrate relative uniform tracer uptake and myocardial perfusion appearing within normal limits. 2. The gated Cardiolite study reports an LVEF of 79%. This note was generated with [employer] software. It may contain incorrect words, spelling, and punctuation that were not noted in checking the note before signing.
== END 2021-09-13 23:59 | disposition short-term general hospital (02) ==
LOC: CVS 07:12
PROVIDERS: PCP Internal Medicine; Referring Provider Nurse Practitioner Family; Visit Provider Nurse Practitioner Family
DX: Z01.818 Encounter for other preprocedural examination (principal); I11.0 Hypertensive heart disease with heart failure; I50.32 Chronic diastolic (congestive) heart failure; I27.20 Pulmonary hypertension, unspecified; I25.10 Atherosclerotic heart disease of native coronary artery without angina pectoris; G47.33 Obstructive sleep apnea (adult) (pediatric)
CPT/HCPCS: 78452; 93017; A9500; A4216; J2785

== ENCOUNTER → 2021-10-12 | Outpatient (REF) | payer SELFPAY ==
[2021-10-12 17:07] LABS: ALB/GLOB Ratio 0.7 RATIO (0.9-2.4); AST(SGOT) 17 U/L (15-37); Alanine Aminotransfer ALT/SGPT 23 U/L (13-56); Albumin, Serum 3.1 g/dL (3.2-5.0); Alkaline Phosphatase 86 U/L (45-117); Anion Gap 9 (5-15); BUN 43 mg/dL (7-18); BUN/Creat Ratio 24.6 RATIO (10-20); Calcium,Total 9.2 mg/dL (8.5-10.1); Chloride 100 mmol/L (98-107); Creatinine, Serum 1.75 mg/dL (0.55-1.02); EST Glomerular Filtration Rate 30 mL/min (>60); Est Glom Filt Rate - Afr Amer 37 mL/min (>60); Globulin 4.6 g/dL (2.2-4.2); Glucose 161 mg/dL (74-106); Potassium 3.7 mmol/L (3.5-5.1); Protein, Total 7.7 g/dL (6.4-8.2); Sodium Level 136 mmol/L (136-145)
== END | disposition home or self-care (01) ==
LOC: OLS.SW500 14:20
PROVIDERS: PCP Internal Medicine; Visit Provider Internal Medicine
DX: I13.0 Hypertensive heart and chronic kidney disease with heart failure and stage 1 through stage 4 chronic kidney disease, or unspecified chronic kidney disease (principal); N17.9 Acute kidney failure, unspecified; I50.9 Heart failure, unspecified; N18.30 Chronic kidney disease, stage 3 unspecified
CPT/HCPCS: 36415; 80053

== ENCOUNTER → 2021-10-27 | Outpatient (REF) | payer MEDICARE, SELFPAY ==
[2021-10-28 06:58] LABS: Mucous, Urine 0 SEEN /hpf (<or=2+); Red Blood Cells-Urine 0 SEEN /hpf (0-5); Squamous Epithelial Cells - UA 0 SEEN /hpf (5-10)
[2021-10-28 07:30] LABS: Color, Urine Yellow (Yellow); Glucose, Dipstick Normal (Normal); Ketone-Dipstick Negative (Negative); Leukocyte Esterase-Dipstick 500 /ul (Negative); Nitrite-Dipstick Negative (Negative); Occult Blood-Urine 25 /ul (Negative); Protein-Dipstick 100 mg/dl (Negative); Urine Bilirubin Dipstick Negative (Negative); Urine Clarity Sl. Cloudy (Clear); Urine Urobilinogen Normal (Normal)
[2021-10-28 07:41] LABS: Bacteria 3+ /hpf (None Seen); White Blood Cells >100 SEEN /hpf (0-5)
== END | disposition home or self-care (01) ==
LOC: OLS.SW500 06:58
PROVIDERS: PCP Internal Medicine; Visit Provider Internal Medicine
DX: R30.0 Dysuria (principal)
CPT/HCPCS: 81001; 87077; 87086; 87088; 87186

== ENCOUNTER → 2021-10-31 | Outpatient (REF) | payer MEDICARE, SELFPAY ==
[2021-10-31 08:27] LABS: Absolute Lymphocyte Count 1.33 X10^3/uL (0.83-4.51); Absolute Neutrophil Count 3.3 X10^3/uL (2.0-7.7); Basophil# 0.02 X10^3/uL; Basophil% 0.4 % (0-1); Eosinophil# 0.07 X10^3/uL; Eosinophils% 1.3 % (0-5); Hematocrit 30.5 % (37-47); Hemoglobin 9.6 g/dL (12.0-15.0); Lymphocyte # 1.33 X10^3/ul (0.83-4.51); Lymphocyte % 25.2 % (19-41); Mean Corp Hgb Conc 31.5 g/dL (32-36); Mean Corpuscular Hgb 30.2 pg (27.0-32.0); Mean Corpuscular Volume 95.9 fL (81-99); Mean Platelet Vol. 10.1 fl (6.2-12.0); Monocyte# 0.48 X10^3/uL; Monocyte% 9.1 % (0-10); NRBC Flagged by Analyzer 0 % (0-5); Neutrophil # 3.25 X10^3/uL (2.7-7.7); Neutrophil % 61.5 % (47-70); Platelet Count 215 K/mm3 (150-450); RBC Distribution Width CV 15.1 % (11.6-14.6); RBC Distribution Width SD 53.9 fl (35.1-43.9); Red Blood Count 3.18 M/mm3 (4.2-5.4); White Blood Count 5.3 K/mm3 (4.4-11.0)
[2021-10-31 08:41] LABS: Anion Gap 8 (5-15); BUN 24 mg/dL (7-18); Calcium,Total 8.8 mg/dL (8.5-10.1); Chloride 105 mmol/L (98-107); Creatinine, Serum 1.26 mg/dL (0.55-1.02); EST Glomerular Filtration Rate 44 mL/min (>60); Est Glom Filt Rate - Afr Amer 53 mL/min (>60); Glucose 136 mg/dL (74-106); Magnesium 2.1 mg/dL (1.6-2.6); Potassium 3.8 mmol/L (3.5-5.1); Sodium Level 141 mmol/L (136-145)
== END | disposition home or self-care (01) ==
LOC: OLS.SW500 04:00
PROVIDERS: PCP Internal Medicine; Visit Provider Internal Medicine
DX: I13.0 Hypertensive heart and chronic kidney disease with heart failure and stage 1 through stage 4 chronic kidney disease, or unspecified chronic kidney disease (principal); I50.9 Heart failure, unspecified; E11.22 Type 2 diabetes mellitus with diabetic chronic kidney disease; N18.9 Chronic kidney disease, unspecified; M70.61 Trochanteric bursitis, right hip; Z47.1 Aftercare following joint replacement surgery
CPT/HCPCS: 36415; 80048; 83735; 85025

== ENCOUNTER → 2022-01-12 | Outpatient (CLI) | payer MEDICARE, SELFPAY | END | disposition home or self-care (01) | LOC: SL 14:34 | PROVIDERS: PCP Internal Medicine; Visit Provider Internal Medicine Critical Care Medicine | DX: G47.33 Obstructive sleep apnea (adult) (pediatric) (principal) | CPT/HCPCS: 98960; G0463 ==

== ENCOUNTER → 2022-01-20 | Outpatient (CLI) | payer MEDICARE, SELFPAY | END | disposition home or self-care (01) | LOC: LAB 01-24 09:35 | PROVIDERS: PCP Internal Medicine; Visit Provider Internal Medicine Nephrology | DX: N17.9 Acute kidney failure, unspecified (principal) | CPT/HCPCS: 36415; 80069; 85027 ==

== ENCOUNTER → 2022-02-23 | Outpatient (CLI) | payer MEDICARE, SELFPAY ==
[2022-02-23 18:13] LABS: Albumin, Serum 3.7 g/dL (3.2-5.0); BUN 33 mg/dL (7-18); BUN/Creat Ratio 23.1 RATIO (10-20); Calcium,Total 9.7 mg/dL (8.5-10.1); Chloride 103 mmol/L (98-107); Creatinine, Serum 1.43 mg/dL (0.55-1.02); EST Glomerular Filtration Rate 38 mL/min (>60); Est Glom Filt Rate - Afr Amer 46 mL/min (>60); Ferritin 265 ng/mL (8-252); Glucose 219 mg/dL (74-106); Iron Binding Capacity,Total 278 ug/dL (250-450); Phosphorus 3.9 mg/dL (2.5-4.9); Potassium 4.2 mmol/L (3.5-5.1); Sodium Level 140 mmol/L (136-145)
[2022-02-24 10:00] LABS: Iron 50 ug/dL (50-170)
== END | disposition home or self-care (01) ==
LOC: POLAB3 12:55
PROVIDERS: PCP Internal Medicine; Visit Provider Internal Medicine Nephrology
DX: N17.9 Acute kidney failure, unspecified (principal); D50.9 Iron deficiency anemia, unspecified
CPT/HCPCS: 36415; 80069; 82728; 83540; 83550

== ENCOUNTER → 2022-03-04 | Outpatient (CLI) | payer MEDICARE, SELFPAY ==
[2022-03-04 11:23] LABS: Erythrocyte Sedimentation Rate 51 mm/hr (0-30)
[2022-03-04 11:25] LABS: Absolute Lymphocyte Count 1.95 X10^3/uL (0.83-4.51); Absolute Neutrophil Count 4.7 X10^3/uL (2.0-7.7); Basophil# 0.04 X10^3/uL; Basophil% 0.5 % (0-1); Eosinophil# 0.07 X10^3/uL; Eosinophils% 0.9 % (0-5); Hematocrit 35.2 % (37-47); Lymphocyte # 1.95 X10^3/ul (0.83-4.51); Lymphocyte % 25.8 % (19-41); Mean Corp Hgb Conc 31.3 g/dL (32-36); Mean Corpuscular Hgb 30.6 pg (27.0-32.0); Mean Corpuscular Volume 98.1 fL (81-99); Monocyte# 0.69 X10^3/uL; Monocyte% 9.1 % (0-10); NRBC Flagged by Analyzer 0 % (0-5); Neutrophil # 4.72 X10^3/uL (2.7-7.7); Neutrophil % 62.6 % (47-70); Platelet Count 224 K/mm3 (150-450); RBC Distribution Width CV 14.8 % (11.6-14.6); RBC Distribution Width SD 53.4 fl (35.1-43.9); Red Blood Count 3.59 M/mm3 (4.2-5.4); White Blood Count 7.6 K/mm3 (4.4-11.0)
[2022-03-04 11:48] LABS: Anion Gap 4 (5-15); BUN 30 mg/dL (7-18); BUN/Creat Ratio 20.8 RATIO (10-20); Calcium,Total 9.4 mg/dL (8.5-10.1); Chloride 101 mmol/L (98-107); Creatinine, Serum 1.44 mg/dL (0.55-1.02); EST Glomerular Filtration Rate 38 mL/min (>60); Est Glom Filt Rate - Afr Amer 46 mL/min (>60); Glucose 118 mg/dL (74-106); Potassium 3.8 mmol/L (3.5-5.1); Sodium Level 137 mmol/L (136-145)
== END | disposition home or self-care (01) ==
LOC: LAB 10:44
PROVIDERS: PCP Internal Medicine; Referring Provider Podiatrist; Visit Provider Podiatrist
DX: M86.172 Other acute osteomyelitis, left ankle and foot (principal)
CPT/HCPCS: 36415; 80048; 85025; 85652; 86140

== ENCOUNTER → 2022-03-16 | Outpatient (CLI) | payer MEDICARE, SELFPAY ==
--- NOTE | 2022-03-16 16:40 | MRI_ITS ---
STUDY: MR Forefoot W/O Contrast 03/16/2022 6:12 PM REASON FOR EXAM: Female, 76 years old. OSTEOMYELITIS OF THE FOOT PAIN INFECTION ABSCESS Technologist Notes Other, INFLAMED AND PAINFUL LEFT GREAT TOE X 1 MONTH. no previous imaging TECHNIQUE: Standardized fat and water weighted pulse sequences were obtained in all 3 orthogonal planes. COMPARISON: None. FINDINGS: Normal talus, calcaneus, and tarsal bones. Normal visualized subtalar, talonavicular, calcaneocuboid, tarsal and tarsometatarsal articulations. Normal metatarsi. There is abnormal increased STIR signal around the head of the distal first metatarsal bone, region of the first metatarsophalangeal joint, and base of the proximal first phalanx. There is low T1 signal around the digit. This is concerning for osteomyelitis. Normal tibial and fibular sesamoid bones. Normal interphalangeal joint of the great toe. Normal phalanges of the great toe. Normal second through fifth metatarsophalangeal joints. Normal interphalangeal joints and phalanges of the lesser toes. There is non-specific soft tissue swelling of the dorsum of the foot. This can suggest an infectious process. MRI/Lower Ext/No Jt/w/o IMPRESSION: MRI findings are concerning for osteomyelitis of the head of the distal first metatarsal bone, region of the first metatarsophalangeal joint, and base of the proximal first phalanx. There is non-specific soft tissue swelling of the dorsum of the foot. This can suggest an infectious process. Electronically Signed: Jeromy Bonilla MD at 18:13 EDT ,
== END | disposition home or self-care (01) ==
LOC: MRI 16:07
PROVIDERS: PCP Internal Medicine; Visit Provider Podiatrist
DX: M86.172 Other acute osteomyelitis, left ankle and foot (principal)
CPT/HCPCS: 73718

== ENCOUNTER → 2022-05-02 | Outpatient (CLI) | payer MEDICARE, SELFPAY ==
[2022-05-02 15:29] LABS: Hematocrit 33.5 % (37-47); Mean Corp Hgb Conc 32.8 g/dL (32-36); Mean Corpuscular Hgb 31.9 pg (27.0-32.0); Mean Corpuscular Volume 97.1 fL (81-99); Mean Platelet Vol. 9.7 fl (6.2-12.0); Platelet Count 181 K/mm3 (150-450); RBC Distribution Width CV 15.9 % (11.6-14.6); RBC Distribution Width SD 55.3 fl (35.1-43.9); Red Blood Count 3.45 M/mm3 (4.2-5.4); White Blood Count 6.8 K/mm3 (4.4-11.0)
[2022-05-02 15:58] LABS: Albumin, Serum 3.4 g/dL (3.2-5.0); BUN 27 mg/dL (7-18); BUN/Creat Ratio 19.1 RATIO (10-20); Calcium,Total 9.2 mg/dL (8.5-10.1); Chloride 100 mmol/L (98-107); Creatinine, Serum 1.41 mg/dL (0.55-1.02); EST Glomerular Filtration Rate 39 mL/min (>60); Est Glom Filt Rate - Afr Amer 47 mL/min (>60); Glucose 145 mg/dL (74-106); Phosphorus 3.8 mg/dL (2.5-4.9); Sodium Level 137 mmol/L (136-145)
== END | disposition home or self-care (01) ==
LOC: LAB 14:40
PROVIDERS: PCP Internal Medicine; Referring Provider Internal Medicine Nephrology; Visit Provider Internal Medicine Nephrology
DX: N18.31 Chronic kidney disease, stage 3a (principal); D50.9 Iron deficiency anemia, unspecified
CPT/HCPCS: 36415; 80069; 85027

== ENCOUNTER 2022-05-15 23:28 | Emergency (ER) | payer MEDICARE, SELFPAY ==
[2022-05-15 23:30] VITALS: BP 151/80; PULSE 76; RESP 18; TEMP 36.6; O2SAT 95; BMI 44.7
--- NOTE | 2022-05-16 00:23 | ED.VIS.LOWEX ---
HPI History of Present Illness HPI Narrative: Patient presents with right knee pain that began today. Patient states it came on while she was sitting. Patient denies any trauma or injury. Patient states it has been constant since this afternoon. Patient describes her pain as sharp. Patient states it is worse with movement. Patient states nothing seems to help with it. Patient denies any fevers or chills. Patient denies any paresthesias or weakness. Patient states she has been having difficulty bearing weight due to the pain. Chief Complaint: Lower Extremity Injury Informant: patient Onset/Context/Timing Onset: Today Context: Sudden Onset Timing: Continuous Quality of Pain: Sharp Location: Right knee Current Severity: Severe Maximum Severity: Severe Worsened by: Movement, weightbearing Relieved by: Nothing Associated Symptoms Associated Symptoms: Negative for Parasthesia, Weakness or Loss of Funtion PFSH [facility] Medical History Allergic contact dermatitis due to metals Atherosclerotic heart disease of [place] coronary artery without angina pectoris Bowel obstruction Chronic diastolic (congestive) heart failure CKD (chronic kidney disease) stage 3, GFR 30-59 ml/min CKD stage 3 due to type 2 diabetes mellitus Degenerative arthritis of hip Degenerative arthritis of knee Depressive disorder Diverticulitis large intestine DM type 2 causing CKD stage 3 Dyspnea Dyspnea Edema Essential (primary) hypertension Fatty liver History of left heart catheterization (09/13/17) History of thyroid cancer Hyperlipidemia Infected hernioplasty mesh Infected prosthetic mesh of abdominal wall Morbid obesity Myalgia ABDI (obstructive sleep apnea) ABDI (obstructive sleep apnea) Osteoarthritis Pneumonia Pulmonary hypertension SBO (small bowel obstruction) Sensorineural hearing loss (SNHL), bilateral Small bowel obstruction Type 2 diabetes mellitus Home Medications docusate sodium 100 mg capsule 100 mg PO DAILY stool softener 06/06/19 [History Last Taken 06/14/20] ezwhtlfg-gzzjdoob-frug 45 mg-folic acid 800 mcg-vit K 120 mcg capsule 1 ea PO DAILY vitamins 06/06/19 [History Last Taken 06/14/20] pantoprazole 20 mg tablet,delayed release 20 mg PO BID stomach 06/06/19 [History Last Taken 06/14/20] calcium citrate 315 mg calcium-vitamin D3 6.25 mcg (250 unit) tablet 2 ea PO BID vitamin 07/04/19 [History Last Taken 06/14/20] metoprolol tartrate 25 mg tablet 25 mg PO BID 07/04/19 [History Last Taken Unknown] fluticasone propionate 50 mcg/actuation nasal spray,suspension (Flonase Allergy Relief) 2 spray intranasal DAILY PRN Allergies 07/23/19 [History Last Taken Unknown] diphenhydramine HCl 25 mg tablet (Benadryl Allergy) 25 mg PO DAILY PRN Itching 06/04/20 [History Last Taken Unknown] nitroglycerin 0.4 mg sublingual tablet 0.4 mg sublingual Q5-15M PRN Pain Score 1-06/1906/04/20 [History Last Taken Unknown] polyethylene glycol 3350 17 gram/dose oral powder (Miralax) 17 g PO DAILY bm 06/04/20 [History Last Taken 06/14/20] aspirin 81 mg chewable tablet 81 mg PO DAILY 08/26/21 [History Last Taken Unknown] diclofenac sodium 1 % topical gel (Arthritis Pain (diclofenac)) 2 g topical 4X/DAY PRN Pain 08/26/21 [History Last Taken Unknown] duloxetine 60 mg capsule,delayed release 60 mg PO DAILY 08/26/21 [History Last Taken Unknown] ferrous sulfate 325 mg (65 mg iron) tablet 325 mg PO BID 08/26/21 [History Last Taken Unknown] melatonin 10 mg capsule 10 mg PO HS PRN Sleep 08/26/21 [History Last Taken Unknown] gabapentin 300 mg capsule 600 mg PO QAM pain 12/27/21 [History Last Taken Unknown] gabapentin 400 mg capsule 800 mg PO QPM 12/27/21 [History Last Taken Unknown] insulin aspart U-100 100 unit/mL (3 mL) subcutaneous pen See Protocol subcut 4X/DAY diabetes 12/27/21 [History Last Taken Unknown] insulin detemir U-100 100 unit/mL (3 mL) subcutaneous pen See Rx Instructions subcut .COMPLEX diabetes 12/27/21 [History Last Taken Unknown] lactulose 10 gram/15 mL oral solution 30 g PO DAILY PRN Constipation 12/27/21 [History Last Taken Unknown] levothyroxine 175 mcg tablet See Rx Instructions PO .COMPLEX 12/27/21 [History Last Taken Unknown] meclizine 25 mg tablet 12.5 mg PO DAILY PRN Dizziness 12/27/21 [History Last Taken Unknown] memantine 5 mg tablet 5 mg PO BID 12/27/21 [History Last Taken Unknown] furosemide 40 mg tablet 40 mg PO TID 03/01/22 [History Last Taken Unknown] naltrexone 4.5 mg PO QHS 03/01/22 [History Last Taken Unknown] tramadol 50 mg tablet 50 mg PO Q4H PRN PRN Pain 3 days #10 tabs 05/16/22 [Rx Last Taken Unknown] Allergy/AdvReac Type Severity Reaction Status Date / Time adhesive Allergy Hives Verified 05/15/22 23:32 ampicillin Allergy Rash Verified 05/15/22 23:32 cephalexin monohydrate Allergy Hives Verified 05/15/22 23:32 [From Keflex] ciprofloxacin [From Cipro] Allergy Swelling Verified 05/15/22 23:32 ketorolac [From Toradol] Allergy Other Verified 05/15/22 23:32 ketorolac tromethamine Allergy Hives Verified 05/15/22 23:32 [From Toradol] nickel [Nickel] Allergy Other Verified 05/15/22 23:32 insulin glargine AdvReac Other Verified 05/15/22 23:32 [From Lantus U-100 Insulin] Oplokmp-LAX-TnB Reductase AdvReac Other Verified 05/15/22 23:32 Inhibitor [Nghglne-Ama-Kht Reductase Inhibitor] paladium Allergy Other Uncoded 05/15/22 23:32 Family History Father Myocardial infarction Mother COPD (chronic obstructive pulmonary disease) Brother AAA (abdominal aortic aneurysm) Lung cancer Pancreatitis Sister Hypertension Diabetes CAD (coronary artery disease) partial detached retina Surgical History cataract lens implant H/O colonoscopy H/O hernia repair H/O thyroidectomy H/O total hysterectomy H/O umbilical hernia repair History of bariatric surgery History of bladder suspension procedure History of total left knee replacement History of total right hip replacement (~09/2021) History of total right knee replacement Hx of appendectomy Hx of cholecystectomy Right kidney lesion removal akshat linares Social History housing: house current occupational status: retired pets and animals: Yes pets and animals: cat(s) Smoking Status: Never smoker alcohol intake: current alcohol intake frequency: holidays/special occasions only Alcohol type: wine substance use type: does not use ROS ROS ED Constitutional Constitutional ED: Denies chills or fever(s) Eyes Eyes: Denies blurry vision or change in vision ENT ENT ED: Denies rhinorrhea or sore throat Cardiovascular Cardiovascular: Denies chest pain or palpitations Respiratory/Chest Respiratory/Chest: Reports cough; Denies dyspnea Gastrointestinal Gastrointestinal: Denies nausea or vomiting Genitourinary Genitourinary ED: Denies dysuria or hematuria Musculoskeletal Musculoskeletal: Reports back pain and neck pain Integumentary Denies abscess or rash Neurologic Neurologic: Denies headache(s) or weakness Allergic/Immunologic Allergic/Immunologic ED: Denies mouth swelling or urticaria EXAM Physical Exam Const Vital Signs: 05/15/22 23:30 Temperature 97.9 F Temperature Source Temporal Pulse Rate 76 Respiratory Rate 18 Blood Pressure 151/80 H Blood Pressure Mean 103 Pulse Ox 95 Oxygen Delivery Method Room Air Positive well nourished, well developed and obese General Appearance ED: well developed and NAD Nutritional Appearance: obese HEENT Reports moist mucous membranes Extremity Extremity Narrative: There is tenderness over the right knee. There is no effusion. There is no erythema or warmth. There is also mild tenderness over the right hip. Range of motion was limited in all motions of the right hip and right knee secondary to pain. Sensation was intact to light touch bilaterally in the lower extremities. There is no calf tenderness. There is some dependent edema bilaterally in the lower legs. There is some mild erythema and warmth bilaterally. Pedal pulses are equal bilaterally. Strength is 5/5 bilaterally in the lower extremities. Neuro oriented x3, CN's II-XII intact bilaterally, moves all extremities and no sensory deficits noted Sensorium / Orientation: alert Motor Exam: strength 5/5 throughout Psych mental status grossly normal MDM MDM MDM Narrative Medical decision making narrative: Patient was given a dose of morphine here. X-rays of the right hip and pelvis were obtained. There are 3 views. On my interpretation, there is no acute fracture or dislocation. There is a right hip arthroplasty noted. There is no loosening of the prosthetic. Radiologist also interpreted the x-rays and agrees. X-rays of the right knee were obtained. There are 4 views. On my interpretation, there is no acute fracture or dislocation. There is a right knee prosthesis. There is no loosening of the prosthetic parts. Radiologist also interpreted the x-rays and agrees. Patient was able to ambulate with a walker here. Patient is feeling better but still having some pain in her knee. CBC was within normal limits. Basic metabolic profile was within normal limits. Lactate was normal. Sed rate was normal. C-reactive protein was only slightly elevated at 28.2. Patient was advised of her findings. Patient was given a prescription for a short course of tramadol. Patient was instructed to follow-up with her primary care physician in 5 to 7 days for reevaluation. Patient understood and was agreeable with the plan. All questions were answered. Lab Data Attestation: I reviewed the patient's lab results. Labs: Laboratory Results - last 24 hr 05/16/22 05/16/22 05/16/22 00:35 00:35 00:35 WBC 6.6 RBC 3.15 L Hgb 10.1 L Hct 30.9 L MCV 98.1 MCH 32.1 H MCHC 32.7 RDW Std Deviation 56.9 H RDW Coeff of Karina 16.0 H Plt Count 188 MPV 9.8 Immature Gran % (Auto) 1.100 H Neut % (Auto) 55.8 Lymph % (Auto) 32.2 [place] % (Auto) 8.4 Eos % (Auto) 2.0 Baso % (Auto) 0.5 Absolute Neuts (auto) 3.7 Absolute Lymphs (auto) 2.14 Nucleated RBC % 0 ESR 17 Sodium 141 Potassium 4.0 Chloride 104 Carbon Dioxide 31.0 Anion Gap 6 BUN 29 H Creatinine 1.48 H Estim Creat Clear Calc 24.78 Est GFR (MDRD) Af Amer 44 L Est GFR (MDRD) Non-Af 37 L BUN/Creatinine Ratio 19.6 Glucose 192 H Lactic Acid 1.5 Calcium 9.0 C-React Prot Ext Range 28.20 H Radiography Diagnostic Testing: Clinical Impression(s) from Imaging Studies Knee X-Ray 05/16/22 00:27 IMPRESSION: 1. No acute abnormalities involving the right knee. 2. Right knee arthroplasty. Electronically Signed: Jeromy Levy MD at 2:07 EDT , Hip/Pelvis X-Ray 05/16/22 01:25 IMPRESSION: 1. No acute abnormalities involving the pelvis or right hip. 2. Right hip arthroplasty. Electronically Signed: Jeromy Levy MD at 2:07 EDT , Discharge Plan Triage Chief Complaint: Lower Extremity Injury ED Provider: Clint Garland Dx/Rx/DC Orders Clinical Impression: Acute pain of right knee, Acute pain of right hip Instructions: ED Knee Pain of Uncertain Cause Prescriptions: New tramadol 50 mg tablet 50 mg PO Q4H PRN PRN (Reason: Pain) 3 Days Qty: 10 0RF No Action fluticasone propionate [Flonase Allergy Relief] 50 mcg/actuation spray,suspension 2 spray INTRANASAL DAILY PRN (Reason: Allergies) diphenhydramine HCl [Benadryl Allergy] 25 mg tablet 25 mg PO DAILY PRN (Reason: Itching) polyethylene glycol 3350 [Miralax] 17 gram/dose powder 17 g PO DAILY nitroglycerin 0.4 mg tablet, sublingual 0.4 mg SUBLINGUAL Q5-15M PRN (Reason: Pain Score 1-10/10) Rx Instructions: do not exceed 3 doses per episode diclofenac sodium [Arthritis Pain (diclofenac)] 1 % gel 2 g topical 4X/DAY PRN (Reason: Pain) Rx Instructions: apply to single elbow, wrist or hand; for hand includes palm/fingers/back of hand aspirin 81 mg tablet,chewable 81 mg PO DAILY duloxetine 60 mg capsule,delayed release(DR/EC) 60 mg PO DAILY melatonin 10 mg capsule 10 mg PO HS PRN (Reason: Sleep) meclizine 25 mg tablet 12.5 mg PO DAILY PRN (Reason: Dizziness) gabapentin 400 mg capsule 800 mg PO QPM lactulose 10 gram/15 mL solution 30 g PO DAILY PRN (Reason: Constipation) levothyroxine 175 mcg tablet See Rx Instructions PO .COMPLEX Rx Instructions: Take 1 tablet daily + 1/2 extra tab on Sunday ONLY memantine 5 mg tablet 5 mg PO BID furosemide 40 mg tablet 40 mg PO TID naltrexone capsule 4.5 mg PO QHS gabapentin 300 mg capsule 600 mg PO QAM Label Comments: nerve pain insulin aspart U-100 100 unit/mL (3 mL) insulin pen See Protocol SC 4X/DAY Protocol: 6. Sliding Scale Insulin Custom Condition: mg/dl range Dose/Route: Number of Units Condition: 150-174 Dose/Route: 2 Condition: 175-199 Dose/Route: 4 Condition: 200-224 Dose/Route: 6 Condition: 225-249 Dose/Route: 8 Condition: 250-299 Dose/Route: 10 Condition: 300-349 Dose/Route: 14 Condition: 350-400 Dose/Route: 18 Condition: >400 Dose/Route: 22 Protocol Text: 14 units plus sliding scale TID with meals Rx Instructions: SLIDING SCALE Breakfast 7u = sliding scale lunch 5u + sliding scale Dinner 7u + sliding scale Snack 5u + sliding scale pantoprazole 20 MG tablet 20 mg PO BID atidysucrsmp-bjc-viqo-FA-vit K 1 EACH capsule 1 ea PO DAILY docusate sodium 100 MG capsule 100 mg PO DAILY metoprolol tartrate 25 MG tablet 25 mg PO BID calcium citrate-vitamin D3 1 EACH tablet 2 ea PO BID insulin detemir U-100 100 unit/mL (3 mL) insulin pen See Rx Instructions SC .COMPLEX Rx Instructions: Take 20 units in AM & 40 units in PM ferrous sulfate 325 mg (65 mg iron) tablet 325 mg PO BID Primary Care Provider: Jesus Davila Referrals: Jesus Davila MD [Primary Care Provider] - 5-7 Days Disposition Disposition: Home, Self Care
--- NOTE | 2022-05-16 00:27 | RAD_ITS ---
EXAM: XR RIGHT KNEE COMPLETE, 4 OR MORE VIEWS CLINICAL INDICATION: Injury/Pain TECHNIQUE: Four or more views of the right knee. This report was created using [employer] report generation technology. COMPARISON: None. FINDINGS: BONES/JOINTS: Right knee arthroplasty. No acute fracture. No subluxation. Normal alignment. No sclerotic or destructive changes observed. SOFT TISSUES: Unremarkable. No soft tissue swelling or gas. No radiopaque foreign body. RAD/Knee 4 or More Views IMPRESSION: 1. No acute abnormalities involving the right knee. 2. Right knee arthroplasty. Electronically Signed: Jeromy Levy MD at 2:07 EDT ,
[2022-05-16] MEDS: Morphine 4 MG/ML Syringe IV (00:39)
[2022-05-16 00:55] LABS: Erythrocyte Sedimentation Rate 17 mm/hr (0-30)
[2022-05-16 00:56] LABS: Anion Gap 6 (5-15); BUN 29 mg/dL (7-18); BUN/Creat Ratio 19.6 RATIO (10-20); Chloride 104 mmol/L (98-107); Creatinine, Serum 1.48 mg/dL (0.55-1.02); EST Glomerular Filtration Rate 37 mL/min (>60); Est Glom Filt Rate - Afr Amer 44 mL/min (>60); Estimated Creatinine Clearance 24.78 ml/min; Glucose 192 mg/dL (74-106); Sodium Level 141 mmol/L (136-145)
[2022-05-16 00:57] LABS: Absolute Lymphocyte Count 2.14 X10^3/uL (0.83-4.51); Absolute Neutrophil Count 3.7 X10^3/uL (2.0-7.7); Basophil# 0.03 X10^3/uL; Basophil% 0.5 % (0-1); Eosinophil# 0.13 X10^3/uL; Hematocrit 30.9 % (37-47); Hemoglobin 10.1 g/dL (12.0-15.0); Lymphocyte # 2.14 X10^3/ul (0.83-4.51); Lymphocyte % 32.2 % (19-41); Mean Corp Hgb Conc 32.7 g/dL (32-36); Mean Corpuscular Hgb 32.1 pg (27.0-32.0); Mean Corpuscular Volume 98.1 fL (81-99); Mean Platelet Vol. 9.8 fl (6.2-12.0); Monocyte# 0.56 X10^3/uL; Monocyte% 8.4 % (0-10); NRBC Flagged by Analyzer 0 % (0-5); Neutrophil # 3.71 X10^3/uL (2.7-7.7); Neutrophil % 55.8 % (47-70); Platelet Count 188 K/mm3 (150-450); RBC Distribution Width SD 56.9 fl (35.1-43.9); Red Blood Count 3.15 M/mm3 (4.2-5.4); White Blood Count 6.6 K/mm3 (4.4-11.0)
[2022-05-16 01:12] LABS: Lactic Acid 1.5 mmol/L (0.4-1.9)
--- NOTE | 2022-05-16 01:25 | RAD_ITS ---
EXAM: XR RIGHT HIP WITH PELVIS WHEN PERFORMED, 2 OR 3 VIEWS CLINICAL INDICATION: Injury/Pain TECHNIQUE: Two or three views of the right hip with pelvis when performed. This report was created using [employer] report generation technology. COMPARISON: None. FINDINGS: BONES/JOINTS: Right hip arthroplasty. No displaced fracture. No destructive or sclerotic lesions. Note that overlapping bowel shadows may however obscure fine detail. Sacroiliac joint is unremarkable. No widening of the pubic symphysis. SOFT TISSUES: Unremarkable. No soft tissue swelling or gas. RAD/HIP, UNI W/ Pelvis 2-3 Views IMPRESSION: 1. No acute abnormalities involving the pelvis or right hip. 2. Right hip arthroplasty. Electronically Signed: Jeromy Levy MD at 2:07 EDT ,
[2022-05-16 03:30] VITALS: PULSE 80; RESP 18; O2SAT 96
== END 2022-05-16 03:30 | disposition home or self-care (01) ==
PROVIDERS: Emergency Provider Emergency Medicine; PCP Internal Medicine; Visit Provider Emergency Medicine
DX: M25.561 Pain in right knee (principal); I50.32 Chronic diastolic (congestive) heart failure; I13.0 Hypertensive heart and chronic kidney disease with heart failure and stage 1 through stage 4 chronic kidney disease, or unspecified chronic kidney disease; I27.20 Pulmonary hypertension, unspecified; E11.22 Type 2 diabetes mellitus with diabetic chronic kidney disease; E66.01 Morbid (severe) obesity due to excess calories; Z68.41 Body mass index [BMI] 40.0-44.9, adult; Z79.4 Long term (current) use of insulin; N18.30 Chronic kidney disease, stage 3 unspecified; M17.11 Unilateral primary osteoarthritis, right knee; I25.10 Atherosclerotic heart disease of native coronary artery without angina pectoris; Z87.19 Personal history of other diseases of the digestive system; K76.0 Fatty (change of) liver, not elsewhere classified; Z85.850 Personal history of malignant neoplasm of thyroid; G47.33 Obstructive sleep apnea (adult) (pediatric); Z79.899 Other long term (current) drug therapy; Z79.82 Long term (current) use of aspirin; Z96.651 Presence of right artificial knee joint; M25.551 Pain in right hip; Z96.641 Presence of right artificial hip joint
CPT/HCPCS: 73502; 73564; 80048; 83605; 85025; 85652; 86140; 96374; 99282

== ENCOUNTER 2022-06-10 14:12 | Emergency (ER) | payer MEDICARE, SELFPAY ==
[2022-06-10 14:14] VITALS: BP 148/114; PULSE 84; RESP 18; TEMP 36.6; O2SAT 100; BMI 42.5
--- NOTE | 2022-06-10 14:42 | RAD_ITS ---
STUDY: X-RAY - RIGHT HAND REASON FOR EXAM: Female, 77 years old. pt states right middle finger swollen and sore for 1 week. states she was typing, and woke up the next morning and finger was swollen and sore. states has been getting worse. TECHNIQUE: 4 view(s) of the hand. COMPARISON: None. FINDINGS: Mild to moderate soft tissue swelling is present throughout the hand. Mild narrowing of the IP joints and cortical spurring throughout the hand. No visualized acute fracture. No visualized erosions. Normal radiocarpal articulation. Normal distal radioulnar joint. A small intraosseous cyst is present in the head of the proximal fibers of the fifth digit. Normal visualized carpal bones. Normal carpal articulations Normal carpometacarpal articulation of the thumb. Normal second through fifth carpometacarpal joints. Normal metacarpi. Normal metacarpophalangeal joint of the thumb. Normal interphalangeal joint of the thumb. Normal proximal and distal phalanges of the thumb. Normal metacarpophalangeal joints of the second through fifth fingers. RAD/Hand Min 3 Views IMPRESSION: Degenerative joint disease of the hand, as described above. Electronically Signed: Dequan Rose MD at 15:46 EDT ,
--- NOTE | 2022-06-10 14:43 | EX.ED.UPPERE ---
HPI History of Present Illness Chief Complaint: Upper Extremity Injury Narrative Narrative: 77-year-old female presenting with right middle finger pain. It is located at the right PIP. She states he was up typing 1 night and the next morning the finger started hurting. She denies any trauma. States it has been swollen. She has been icing it. It is red over the dorsal aspect of the PIP. No numbness or tingling. PFSH PFS Medical History Allergic contact dermatitis due to metals Atherosclerotic heart disease of [place] coronary artery without angina pectoris Bowel obstruction Chronic diastolic (congestive) heart failure CKD (chronic kidney disease) stage 3, GFR 30-59 ml/min CKD stage 3 due to type 2 diabetes mellitus Degenerative arthritis of hip Degenerative arthritis of knee Depressive disorder Diverticulitis large intestine DM type 2 causing CKD stage 3 Dyspnea Dyspnea Edema Essential (primary) hypertension Fatty liver History of left heart catheterization (09/13/17) History of thyroid cancer Hyperlipidemia Infected hernioplasty mesh Infected prosthetic mesh of abdominal wall Morbid obesity Myalgia ABDI (obstructive sleep apnea) ABDI (obstructive sleep apnea) Osteoarthritis Pneumonia Pulmonary hypertension SBO (small bowel obstruction) Sensorineural hearing loss (SNHL), bilateral Small bowel obstruction Type 2 diabetes mellitus Home Medications docusate sodium 100 mg capsule 100 mg PO DAILY stool softener 06/06/19 [History Last Taken 06/14/20] bsumqdbo-ngdpemqa-eqbi 45 mg-folic acid 800 mcg-vit K 120 mcg capsule 1 ea PO DAILY vitamins 06/06/19 [History Last Taken 06/14/20] pantoprazole 20 mg tablet,delayed release 20 mg PO BID stomach 06/06/19 [History Last Taken 06/14/20] calcium citrate 315 mg calcium-vitamin D3 6.25 mcg (250 unit) tablet 2 ea PO BID vitamin 07/04/19 [History Last Taken 06/14/20] metoprolol tartrate 25 mg tablet 25 mg PO BID 07/04/19 [History Last Taken Unknown] fluticasone propionate 50 mcg/actuation nasal spray,suspension (Flonase Allergy Relief) 2 spray intranasal DAILY PRN Allergies 07/23/19 [History Last Taken Unknown] diphenhydramine HCl 25 mg tablet (Benadryl Allergy) 25 mg PO DAILY PRN Itching 06/04/20 [History Last Taken Unknown] nitroglycerin 0.4 mg sublingual tablet 0.4 mg sublingual Q5-15M PRN Pain Score 1-06/1906/04/20 [History Last Taken Unknown] polyethylene glycol 3350 17 gram/dose oral powder (Miralax) 17 g PO DAILY bm 06/04/20 [History Last Taken 06/14/20] aspirin 81 mg chewable tablet 81 mg PO DAILY 08/26/21 [History Last Taken Unknown] diclofenac sodium 1 % topical gel (Arthritis Pain (diclofenac)) 2 g topical 4X/DAY PRN Pain 08/26/21 [History Last Taken Unknown] duloxetine 60 mg capsule,delayed release 60 mg PO DAILY 08/26/21 [History Last Taken Unknown] ferrous sulfate 325 mg (65 mg iron) tablet 325 mg PO BID 08/26/21 [History Last Taken Unknown] melatonin 10 mg capsule 10 mg PO HS PRN Sleep 08/26/21 [History Last Taken Unknown] gabapentin 300 mg capsule 600 mg PO QAM pain 12/27/21 [History Last Taken Unknown] gabapentin 400 mg capsule 800 mg PO QPM 12/27/21 [History Last Taken Unknown] insulin aspart U-100 100 unit/mL (3 mL) subcutaneous pen See Protocol subcut 4X/DAY diabetes 12/27/21 [History Last Taken Unknown] insulin detemir U-100 100 unit/mL (3 mL) subcutaneous pen See Rx Instructions subcut .COMPLEX diabetes 12/27/21 [History Last Taken Unknown] lactulose 10 gram/15 mL oral solution 30 g PO DAILY PRN Constipation 12/27/21 [History Last Taken Unknown] levothyroxine 175 mcg tablet See Rx Instructions PO .COMPLEX 12/27/21 [History Last Taken Unknown] meclizine 25 mg tablet 12.5 mg PO DAILY PRN Dizziness 12/27/21 [History Last Taken Unknown] memantine 5 mg tablet 5 mg PO BID 12/27/21 [History Last Taken Unknown] furosemide 40 mg tablet 40 mg PO TID 03/01/22 [History Last Taken Unknown] naltrexone 4.5 mg PO QHS 03/01/22 [History Last Taken Unknown] tramadol 50 mg tablet 50 mg PO Q4H PRN PRN Pain 3 days #10 tabs 05/16/22 [Rx Last Taken Unknown] tramadol 50 mg tablet (Ultram) 50 mg PO Q8H PRN pain #12 tabs 06/10/22 [Rx Last Taken Unknown] Allergy/AdvReac Type Severity Reaction Status Date / Time adhesive Allergy Hives Verified 06/10/22 14:13 ampicillin Allergy Rash Verified 06/10/22 14:13 cephalexin monohydrate Allergy Hives Verified 06/10/22 14:13 [From Keflex] ciprofloxacin [From Cipro] Allergy Swelling Verified 06/10/22 14:13 ketorolac [From Toradol] Allergy Other Verified 06/10/22 14:13 ketorolac tromethamine Allergy Hives Verified 06/10/22 14:13 [From Toradol] nickel [Nickel] Allergy Other Verified 06/10/22 14:13 insulin glargine AdvReac Other Verified 06/10/22 14:13 [From Lantus U-100 Insulin] Fxgjnhn-FRC-RkM Reductase AdvReac Other Verified 06/10/22 14:13 Inhibitor [Lxixofp-Iaw-Vhi Reductase Inhibitor] paladium Allergy Other Uncoded 06/10/22 14:13 Family History Father Myocardial infarction Mother COPD (chronic obstructive pulmonary disease) Brother AAA (abdominal aortic aneurysm) Lung cancer Pancreatitis Sister Hypertension Diabetes CAD (coronary artery disease) partial detached retina Surgical History cataract lens implant H/O colonoscopy H/O hernia repair H/O thyroidectomy H/O total hysterectomy H/O umbilical hernia repair History of bariatric surgery History of bladder suspension procedure History of total left knee replacement History of total right hip replacement (~09/2021) History of total right knee replacement Hx of appendectomy Hx of cholecystectomy Right kidney lesion removal akshat linares Social History housing: house current occupational status: retired pets and animals: Yes pets and animals: cat(s) Smoking Status: Never smoker alcohol intake: current alcohol intake frequency: holidays/special occasions only Alcohol type: wine substance use type: does not use ROS ROS ED Constitutional Constitutional ED: Denies chills or fever(s) Eyes Eyes: Denies change in vision ENT ENT ED: Denies rhinorrhea or sore throat Cardiovascular Cardiovascular: Denies chest pain or palpitations Respiratory/Chest Respiratory/Chest: Denies cough or dyspnea Gastrointestinal Gastrointestinal: Denies abdominal pain or constipation Genitourinary Genitourinary ED: Denies dysuria or hematuria Musculoskeletal Musculoskeletal: Reports other Details: Right middle finger pain Integumentary Denies abscess or Abrasions Neurologic Neurologic: Denies headache(s) or paresthesias Psychiatric Psychiatric: Denies anxiety or depression EXAM Physical Exam Const Vital Signs: 06/10/22 14:14 Temperature 97.8 F Temperature Source Temporal Pulse Rate 84 Respiratory Rate 18 Blood Pressure 148/114 H Blood Pressure Mean 125 Pulse Ox 100 Oxygen Delivery Method Room Air Positive well nourished General Appearance ED: NAD HEENT Reports moist mucous membranes Eyes PERRL and EOMs intact bilaterally Resp normal respiratory effort Cardio regular rate and regular rhythm Extremity Extremity Narrative: Tenderness to palpation over the right middle finger PIP. Flexion extension somewhat limited due to swelling but does not appear to be a septic joint. There is no increased warmth. Right hand neurovascular intact with brisk cap refill all 5 fingers. Neuro oriented x3 and CN's II-XII intact bilaterally Sensorium / Orientation: alert Motor Exam: strength 5/5 throughout Psych mental status grossly normal MDM MDM MDM Narrative Medical decision making narrative: Patient presenting with right middle finger pain. Its localized at the PIP. There is no history of trauma. There are some redness overlying the dorsal aspect and some bruising but there is no deformity other than swelling. Patient has limitation of range of motion secondary to swelling. The right hand is neurovascular intact brisk cap refill to all 5 fingers. There is no evidence of a tenosynovitis or an infectious process. I obtained an x-ray of the right hand and on my interpretation there is no acute fracture or subluxation. The radiologist interprets this and agrees. The radiologist also states that there is degenerative changes in the right hand. Patient counseled on these findings. I will have her follow-up with orthopedics. Patient continue to use ice, elevation, Tylenol. I will prescribe her some tramadol for breakthrough pain. Impression: 1. Right middle finger swelling Lab Data Attestation: I reviewed the patient's lab results. Discharge Plan Triage Chief Complaint: Upper Extremity Injury ED Provider: Jona Alberto Dx/Rx/DC Orders Instructions: ED Finger Sprain Prescriptions: New tramadol [Ultram] 50 mg tablet 50 mg PO Q8H PRN (Reason: pain) Qty: 12 0RF No Action fluticasone propionate [Flonase Allergy Relief] 50 mcg/actuation spray,suspension 2 spray INTRANASAL DAILY PRN (Reason: Allergies) diphenhydramine HCl [Benadryl Allergy] 25 mg tablet 25 mg PO DAILY PRN (Reason: Itching) polyethylene glycol 3350 [Miralax] 17 gram/dose powder 17 g PO DAILY nitroglycerin 0.4 mg tablet, sublingual 0.4 mg SUBLINGUAL Q5-15M PRN (Reason: Pain Score 1-10/10) Rx Instructions: do not exceed 3 doses per episode diclofenac sodium [Arthritis Pain (diclofenac)] 1 % gel 2 g topical 4X/DAY PRN (Reason: Pain) Rx Instructions: apply to single elbow, wrist or hand; for hand includes palm/fingers/back of hand aspirin 81 mg tablet,chewable 81 mg PO DAILY duloxetine 60 mg capsule,delayed release(DR/EC) 60 mg PO DAILY melatonin 10 mg capsule 10 mg PO HS PRN (Reason: Sleep) meclizine 25 mg tablet 12.5 mg PO DAILY PRN (Reason: Dizziness) gabapentin 400 mg capsule 800 mg PO QPM lactulose 10 gram/15 mL solution 30 g PO DAILY PRN (Reason: Constipation) levothyroxine 175 mcg tablet See Rx Instructions PO .COMPLEX Rx Instructions: Take 1 tablet daily + 1/2 extra tab on Sunday ONLY memantine 5 mg tablet 5 mg PO BID furosemide 40 mg tablet 40 mg PO TID naltrexone capsule 4.5 mg PO QHS gabapentin 300 mg capsule 600 mg PO QAM Label Comments: nerve pain insulin aspart U-100 100 unit/mL (3 mL) insulin pen See Protocol SC 4X/DAY Protocol: 6. Sliding Scale Insulin Custom Condition: mg/dl range Dose/Route: Number of Units Condition: 150-174 Dose/Route: 2 Condition: 175-199 Dose/Route: 4 Condition: 200-224 Dose/Route: 6 Condition: 225-249 Dose/Route: 8 Condition: 250-299 Dose/Route: 10 Condition: 300-349 Dose/Route: 14 Condition: 350-400 Dose/Route: 18 Condition: >400 Dose/Route: 22 Protocol Text: 14 units plus sliding scale TID with meals Rx Instructions: SLIDING SCALE Breakfast 7u = sliding scale lunch 5u + sliding scale Dinner 7u + sliding scale Snack 5u + sliding scale pantoprazole 20 MG tablet 20 mg PO BID robiugbajlas-cln-vtpy-FA-vit K 1 EACH capsule 1 ea PO DAILY docusate sodium 100 MG capsule 100 mg PO DAILY metoprolol tartrate 25 MG tablet 25 mg PO BID calcium citrate-vitamin D3 1 EACH tablet 2 ea PO BID insulin detemir U-100 100 unit/mL (3 mL) insulin pen See Rx Instructions SC .COMPLEX Rx Instructions: Take 20 units in AM & 40 units in PM ferrous sulfate 325 mg (65 mg iron) tablet 325 mg PO BID tramadol 50 mg tablet 50 mg PO Q4H PRN PRN (Reason: Pain) 3 Days Qty: 10 0RF Primary Care Provider: Jesus Davila Referrals: Jesus Davila MD [Primary Care Provider] - Disposition Disposition: Home, Self Care
[2022-06-10 16:34] VITALS: RESP 16
== END 2022-06-10 16:32 | disposition home or self-care (01) ==
PROVIDERS: Emergency Provider Student in an Organized Health Care Education/Training Program; PCP Internal Medicine; Visit Provider Student in an Organized Health Care Education/Training Program
DX: R22.31 Localized swelling, mass and lump, right upper limb (principal); I13.0 Hypertensive heart and chronic kidney disease with heart failure and stage 1 through stage 4 chronic kidney disease, or unspecified chronic kidney disease; I50.32 Chronic diastolic (congestive) heart failure; I27.20 Pulmonary hypertension, unspecified; E11.22 Type 2 diabetes mellitus with diabetic chronic kidney disease; E66.01 Morbid (severe) obesity due to excess calories; Z68.41 Body mass index [BMI] 40.0-44.9, adult; Z79.4 Long term (current) use of insulin; N18.30 Chronic kidney disease, stage 3 unspecified; I25.10 Atherosclerotic heart disease of native coronary artery without angina pectoris; Z87.19 Personal history of other diseases of the digestive system; K76.0 Fatty (change of) liver, not elsewhere classified; Z85.850 Personal history of malignant neoplasm of thyroid; E78.5 Hyperlipidemia, unspecified; G47.33 Obstructive sleep apnea (adult) (pediatric); F32.A Depression, unspecified; Z79.899 Other long term (current) drug therapy; Z79.82 Long term (current) use of aspirin
CPT/HCPCS: 73130; 99282

== ENCOUNTER 2022-07-26 14:00 | Outpatient (RCR) | payer MEDICARE, SELFPAY ==
--- NOTE | 2022-07-18 11:50 | HP.OTEVAL_ITS ---
Patient's Visit Information BHAKTI KIRKPATRICK is a 77 year old F, referred to Occupational Therapy by Dr. Arslan Villar MD, with a diagnosis of OA right hand, pain, weakness. Date of Evaluation: 07/17/22 Occupational Therapist: Ashley Avila, ROELR/Collin, CHT - Subjective This 77 year old female was seen for OT eval with dx pain right hand- Primary OA right hand- weakness of right hand- pt states she woke up May. 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 - Pain right hand 6 Pain Intensity Range: 9 - ROM MP: right MF -15/80 left MF 0/85 PIP: right MF -20/70 left MF 0/95 DIP: right MF 0/30 left 0 0/65 ROM Comments: pt demo with multi deformities of bilateral digits - Strength Hydraulic Chair Assembler: right unable left 35# Strength Comments: pinch was not tested due to the deformities - Edema PIP: right 8.0 left 7.0 - Sensation Sensation Comments: pt states she has numbness around her MCP region - Quick DASH-Disab of Arm,Shoulder& Hand Quick DASH Score: 47.7250 - Goals Goal:: PT will demo an increase in diamond driller strength by 20# to increase independent with basic occupations of daily living to return pt to PLOF by D/C. Pt will demo an increase in lateral and tripod pinch by 2# to increase pts independent with opening baggies, containers at PLOF by D/C. Goal:: pt will demo a increase in right MF Flexion by 20* and ext by 10* to increase pts ability to form composite fist to hold objects with right hand without dropping them by d.c Goal:: Pt will report pain no greater than 1/10 with use of affected hand with BADLs and IADLs by d/c. Goal:: Pt will demo understanding of joint protection and ergonomics when performing BADLs and IADLs by d/c. Pt will demo understanding of adaptive Equi pment use to decrease stress on joints to allow pt to perform BADSL and IADLS at HORACE level. - Rehabilitation General Assessment: pt demo with limited ROM of right MF PIP, edema and bruising- Pain limits pt from using her right hand with ADLs and IADLs. pt would benefit from skilled OT services 1-2x week for 4 weeks to decrease edema, improve ROM and regain pts strength to return to using right hand with daily tasks. Today therapist ed. pt on joint protection and ad. eq. for daily tasks as well as ed. on light ROM ex at this time- pt demo understanding and agree to POC. Rehabilitation Potential: Good - Anticipated Interventions A/AAROM/PROM, Strengthening, Edema Control, Triggerpoint Release, Modalities, Orthoses, Joint Protection/Energy Conservation, Ergonomic Education, Fine Motor Coord/Florencio, ADL Training, Education re assistive Equipment, Education re Diagnosis, Caregiver Training, Home Program - Visit Plan Frequency: 1-2x /Week Duration: 4 Weeks TEXT: Thank you for the opportunity to evaluate your patient. For Medicare and Medicare HMO plans, please review the plan of care and approve it. It will need to be FAXED BACK to us at [phone] for Medicare purposes. Please let me know if there are questions or concerns regarding this plan of care. Physician Signature: Date:
--- NOTE | 2022-07-26 16:42 | HP.OTEVAL_ITS ---
Patient's Visit Information BHAKTI KIRKPATRICK is a 77 year old F, referred to Occupational Therapy by Dr. Arslan Villar MD, with a diagnosis of OA right hand, pain, weakness. Date of Evaluation: 07/17/22 Occupational Therapist: Ashley Avila, ROELR/Collin, CHT - Subjective This 77 year old female was seen for OT eval with dx pain right hand- Primary OA right hand- weakness of right hand- pt states she woke up May. 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 - Pain right hand 6 Pain Intensity Range: 9 - ROM MP: right MF -15/80 left MF 0/85 PIP: right MF -20/70 left MF 0/95 DIP: right MF 0/30 left 0 0/65 ROM Comments: pt demo with multi deformities of bilateral digits - Strength Sales Analytics Manager: right unable left 35# Strength Comments: pinch was not tested due to the deformities - Edema PIP: right 8.0 left 7.0 - Sensation Sensation Comments: pt states she has numbness around her MCP region - Quick DASH-Disab of Arm,Shoulder& Hand Quick DASH Score: 11.3625 - Goals Goal:: PT will demo an increase in tapper hand strength by 20# to increase independent with basic occupations of daily living to return pt to PLOF by D/C. Pt will demo an increase in lateral and tripod pinch by 2# to increase pts independent with opening baggies, containers at PLOF by D/C. Goal:: pt will demo a increase in right MF Flexion by 20* and ext by 10* to increase pts ability to form composite fist to hold objects with right hand without dropping them by d.c Goal:: Pt will report pain no greater than 1/10 with use of affected hand with BADLs and IADLs by d/c. Goal:: Pt will demo understanding of joint protection and ergonomics when performing BADLs and IADLs by d/c. Pt will demo understanding of adaptive Equi pment use to decrease stress on joints to allow pt to perform BADSL and IADLS at HORACE level. - Rehabilitation General Assessment: pt demo with limited ROM of right MF PIP, edema and bruising- Pain limits pt from using her right hand with ADLs and IADLs. pt would benefit from skilled OT services 1-2x week for 4 weeks to decrease edema, improve ROM and regain pts strength to return to using right hand with daily tasks. Today therapist ed. pt on joint protection and ad. eq. for daily tasks as well as ed. on light ROM ex at this time- pt demo understanding and agree to POC. Rehabilitation Potential: Good - Anticipated Interventions A/AAROM/PROM, Strengthening, Edema Control, Triggerpoint Release, Modalities, Orthoses, Joint Protection/Energy Conservation, Ergonomic Education, Fine Motor Coord/Florencio, ADL Training, Education re assistive Equipment, Education re Diagnosis, Caregiver Training, Home Program - Visit Plan Frequency: 1-2x /Week Duration: 4 Weeks TEXT: Thank you for the opportunity to evaluate your patient. For Medicare and Medicare HMO plans, please review the plan of care and approve it. It will need to be FAXED BACK to us at [phone] for Medicare purposes. Please let me know if there are questions or concerns regarding this plan of care. Physician Signature: Date:
--- NOTE | 2022-07-26 16:42 | HP.OTDCSUM ---
It has been my pleasure to treat BHAKTI KIRKPATRICK under orders from Dr. Arslan Villar MD, for the diagnosis of OA right hand, pain, weakness for a total of 2 visit(s). Please see the following information for a summary of their discharge status. % Improvement: 100 Objective/Function: Pt demo with PIP ROM 0/90. pt able to use hand to grasp objects and use her computer- Patient Goals: Decrease Pain, Use Hand/Wrist/Arm Normally Again Goal:: PT will demo an increase in general assembler strength by 20# to increase independent with basic occupations of daily living to return pt to PLOF by D/C. Pt will demo an increase in lateral and tripod pinch by 2# to increase pts independent with opening baggies, containers at PLOF by D/C. Goal:: pt will demo a increase in right MF Flexion by 20* and ext by 10* to increase pts ability to form composite fist to hold objects with right hand without dropping them by d.c Goal:: Pt will report pain no greater than 1/10 with use of affected hand with BADLs and IADLs by d/c. Goal:: Pt will demo understanding of joint protection and ergonomics when performing BADLs and IADLs by d/c. Pt will demo understanding of adaptive Equipment use to decrease stress on joints to allow pt to perform BADSL and IADLS at HORACE level. Plan: D/C Discharge Comments: pt was seen 2 OT session- finger swelling resolved and ROM returned to WFL- pt has met goals at this time and is d/c with HEP to continue with using edema finger sleeve- pt and pts family agree with D/C If there are questions or concerns regarding this patient's occupational therapy, please fell free to call me at [phone]. Thank you for the referral of this patient. Sincerely, Ashley Avila, OTR/L, CHT
== END 2022-07-26 19:00 | disposition home or self-care (01) ==
LOC: OT 14:00
PROVIDERS: PCP Internal Medicine; Referring Provider Orthopaedic Surgery; Visit Provider Orthopaedic Surgery
DX: M79.641 Pain in right hand (principal); R29.898 Other symptoms and signs involving the musculoskeletal system; M19.041 Primary osteoarthritis, right hand
CPT/HCPCS: 97166; 97530

== ENCOUNTER 2022-07-31 17:40 | Outpatient (CLI) | payer MEDICARE, SELFPAY | END 2022-07-31 23:59 | disposition home or self-care (01) | PROVIDERS: PCP Internal Medicine; Visit Provider Podiatrist | DX: L97.512 Non-pressure chronic ulcer of other part of right foot with fat layer exposed (principal) | CPT/HCPCS: 87070; 87077; 87205 ==

== ENCOUNTER → 2022-10-12 | Outpatient (CLI) | payer MEDICARE, SELFPAY ==
[2022-10-12 16:57] LABS: Absolute Lymphocyte Count 1.91 X10^3/uL (0.83-4.51); Absolute Neutrophil Count 5.7 X10^3/uL (2.0-7.7); Basophil# 0.04 X10^3/uL; Basophil% 0.5 % (0-1); Eosinophil# 0.13 X10^3/uL; Eosinophils% 1.5 % (0-5); Hematocrit 36.2 % (37-47); Hemoglobin 11.2 g/dL (12.0-15.0); Lymphocyte # 1.91 X10^3/ul (0.83-4.51); Lymphocyte % 22.5 % (19-41); Mean Corp Hgb Conc 30.9 g/dL (32-36); Mean Corpuscular Volume 100.3 fL (81-99); Mean Platelet Vol. 9.9 fl (6.2-12.0); Monocyte# 0.64 X10^3/uL; Monocyte% 7.5 % (0-10); NRBC Flagged by Analyzer 0 % (0-5); Neutrophil # 5.69 X10^3/uL (2.7-7.7); Neutrophil % 66.9 % (47-70); Platelet Count 212 K/mm3 (150-450); RBC Distribution Width CV 15.2 % (11.6-14.6); RBC Distribution Width SD 55.5 fl (35.1-43.9); Red Blood Count 3.61 M/mm3 (4.2-5.4); White Blood Count 8.5 K/mm3 (4.4-11.0)
[2022-10-12 17:14] LABS: Erythrocyte Sedimentation Rate 57 mm/hr (0-30)
[2022-10-12 17:37] LABS: Anion Gap 6 (5-15); BUN 23 mg/dL (7-18); BUN/Creat Ratio 18.4 RATIO (10-20); Calcium,Total 9.3 mg/dL (8.5-10.1); Chloride 104 mmol/L (98-107); Creatinine, Serum 1.25 mg/dL (0.55-1.02); EST Glomerular Filtration Rate 44 mL/min (>60); Est Glom Filt Rate - Afr Amer 54 mL/min (>60); Glucose 129 mg/dL (74-106); Potassium 3.8 mmol/L (3.5-5.1); Sodium Level 142 mmol/L (136-145); Uric Acid 12.3 mg/dL (2.6-6.0)
[2022-10-12 18:08] LABS: Body Fluid QC Type(s) BF1Q; CRYSTALS, BODY FLUID MONOSODIUM URATE
[2022-10-12 18:10] LABS: Source- Body Fluid SYNOVIAL
[2022-10-16 10:43] LABS: Pathologist Review Reviewed
== END | disposition home or self-care (01) ==
LOC: LABSPEC 16:13
PROVIDERS: PCP Internal Medicine; Visit Provider Podiatrist
DX: M25.571 Pain in right ankle and joints of right foot (principal)
CPT/HCPCS: 36415; 80048; 84550; 85025; 85652; 86140; 87070; 87075; 87205; 89060

== ENCOUNTER → 2022-11-21 | Outpatient (CLI) | payer MEDICARE, SELFPAY ==
[2022-11-21 14:55] LABS: Hematocrit 36.7 % (37-47); Hemoglobin 11.7 g/dL (12.0-15.0); Mean Corp Hgb Conc 31.9 g/dL (32-36); Mean Corpuscular Volume 100.3 fL (81-99); Platelet Count 209 K/mm3 (150-450); RBC Distribution Width CV 15.5 % (11.6-14.6); RBC Distribution Width SD 57.4 fl (35.1-43.9); Red Blood Count 3.66 M/mm3 (4.2-5.4); White Blood Count 9.4 K/mm3 (4.4-11.0)
[2022-11-21 15:22] LABS: Albumin, Serum 3.6 g/dL (3.2-5.0); BUN 23 mg/dL (7-18); BUN/Creat Ratio 17.7 RATIO (10-20); Chloride 103 mmol/L (98-107); EST Glomerular Filtration Rate 42 mL/min (>60); Est Glom Filt Rate - Afr Amer 51 mL/min (>60); Glucose 81 mg/dL (74-106); Potassium 3.8 mmol/L (3.5-5.1); Sodium Level 143 mmol/L (136-145)
== END | disposition home or self-care (01) ==
LOC: LAB 14:08
PROVIDERS: PCP Internal Medicine; Visit Provider Internal Medicine Nephrology
DX: N18.32 Chronic kidney disease, stage 3b (principal); D50.9 Iron deficiency anemia, unspecified
CPT/HCPCS: 36415; 80069; 85027

== ENCOUNTER → 2023-04-09 | Outpatient (CLI) | payer MEDICARE, SELFPAY ==
[2023-04-09 16:15] LABS: Mucous, Urine 0 SEEN /hpf (<or=2+); Red Blood Cells-Urine 0 SEEN /hpf (0-5); Squamous Epithelial Cells - UA 0 SEEN /hpf (5-10)
[2023-04-09 17:02] LABS: Color, Urine Yellow (Yellow); Glucose, Dipstick Normal (Normal); Ketone-Dipstick 5 mg/dl (Negative); Leukocyte Esterase-Dipstick 500 /ul (Negative); Nitrite-Dipstick Negative (Negative); Occult Blood-Urine 25 /ul (Negative); Protein-Dipstick 100 mg/dl (Negative); Urine Bilirubin Dipstick Negative (Negative); Urine Clarity Cloudy (Clear); Urine Urobilinogen Normal (Normal)
[2023-04-09 17:14] LABS: Bacteria 3+ /hpf (None Seen); White Blood Cells >100 SEEN /hpf (0-5)
[2023-04-09 17:33] LABS: Anion Gap 5 (5-15); BUN 23 mg/dL (7-18); BUN/Creat Ratio 15.9 RATIO (10-20); Chloride 105 mmol/L (98-107); Creatinine, Serum 1.45 mg/dL (0.55-1.02); EST Glomerular Filtration Rate 37 mL/min (>60); Est Glom Filt Rate - Afr Amer 45 mL/min (>60); Glucose 213 mg/dL (74-106); Potassium 3.9 mmol/L (3.5-5.1); Sodium Level 142 mmol/L (136-145)
== END | disposition home or self-care (01) ==
LOC: LAB 16:13
PROVIDERS: PCP Internal Medicine; Referring Provider Nurse Practitioner Family; Visit Provider Nurse Practitioner Family
DX: R35.0 Frequency of micturition (principal); I50.32 Chronic diastolic (congestive) heart failure
CPT/HCPCS: 36415; 80048; 81001; 87077; 87086; 87088; 87186

== ENCOUNTER 2023-06-15 06:15 | Emergency (ER) | payer MEDICARE, SELFPAY ==
[2023-06-15 06:16] VITALS: BP 128/59; PULSE 58; RESP 16; TEMP 36.2; O2SAT 97; BMI 41.1
--- NOTE | 2023-06-15 06:26 | CT_ITS ---
INDICATION: Trauma, fall EXAMINATION: CT Spine Cervical W/O Contrast Injection TECHNIQUE: Helically acquired images were obtained of the cervical spine. 2D reformatted images were reviewed. A radiation dose optimization technique was used for this scan. IV Contrast dosage and agent: None. COMPARISON: None. FINDINGS: VERTEBRAE: No fracture or traumatic subluxation. Vertebral body heights are preserved. Adequate alignment. Straightening of cervical lordosis likely chronic and/or positional in nature. DISCS and SPINAL CANAL: Multilevel degenerative disc space narrowing, endplate spurring and degenerative facet arthropathy. There is developmental fusion of C2-C3 facet joints. No high-grade spinal canal stenosis. NECK SOFT TISSUES: No prevertebral soft tissue swelling. No other acute findings. LUNG APICES: No acute findings. CT/Spine Cervical without Contras IMPRESSION: Multilevel spondylosis but no evidence of acute cervical spinal injury. Electronically Signed: Sunil Crenshaw MD at 8:15 EDT ,
--- NOTE | 2023-06-15 06:26 | CT_ITS ---
INDICATION: Trauma-fell out of wheelchair EXAMINATION: CT Head or Brain W/O Contrast Injection TECHNIQUE: Multiple axial images were obtained of the head without intravenous contrast. A radiation dose optimization technique was used for this scan. IV Contrast dosage and agent: None. COMPARISON: None FINDINGS: BRAIN PARENCHYMA: No intra- or extra-axial hemorrhage. No evidence of acute major territorial infarct. No intracranial mass or mass effect. Deep cerebral white matter lucencies are present. Chronic cerebral involutional changes. CSF SPACES: Prominent cerebral sulci and extraaxial spaces secondary to involutional changes. No hydrocephalus. Basal cisterns are patent. CALVARIUM, SKULL BASE, PARANASAL SINUSES AND MASTOID AIR CELLS: Calvarium is intact. Mild sinus mucosal thickening. Mastoid air cells are well-pneumatized. ORBITS: Postop cataract surgery bilaterally. CT/Brain/Head without Contrast IMPRESSION: Chronic involutional and white matter changes. No evidence of acute intracranial abnormality. Electronically Signed: Sunil Crenshaw MD at 8:02 EDT ,
--- NOTE | 2023-06-15 06:27 | RAD_ITS ---
INDICATION: Fall, sore left hip EXAMINATION/TECHNIQUE: X-RAY - XR Hip Unilateral with Pelvis when performed; 2-3 Views: AP view pelvis with AP and lateral views of left hip COMPARISON: Pelvis radiograph from 05/16/2022 FINDINGS: PELVIC BONES: No displaced fracture or suspicious osseous lesion demonstrated. Note that overlapping bowel shadows may however obscure fine detail. Sacroiliac joints are unremarkable. No widening of the pubic symphysis. HIPS: Right hip arthroplasty hardware adequately aligned. Severe left hip degenerative joint space narrowing with [id number] articulation. No acute fracture or dislocation. SOFT TISSUES: Several small calcified pelvic phleboliths noted. Small metallic clips overlying pelvis. RAD/HIP, UNI W/ Pelvis 2-3 Views IMPRESSION: No evidence of acute osseous injury. Previous right hip arthroplasty with severe left hip osteoarthritis. Electronically Signed: Sunil Crenshaw MD at 8:11 EDT ,
--- NOTE | 2023-06-15 06:27 | RAD_ITS ---
INDICATION: Fall, painful 5th finger EXAMINATION/TECHNIQUE: X-RAY - RIGHT XR Hand Min 3 Views COMPARISON: None. FINDINGS: SOFT TISSUES: No significant soft tissue swelling. No radiopaque foreign body detected. BONES/JOINTS: No acute fracture or subluxation. Adequate alignment of osseous structures. Multidigit interphalangeal degenerative joint space narrowing and osteophytosis. 1st carpometacarpal degenerative joint space narrowing also noted. RAD/Hand Min 3 Views IMPRESSION: Osteoarthritic changes with no acute osseous injury. Electronically Signed: Sunil Crenshaw MD at 8:08 EDT ,
--- NOTE | 2023-06-15 06:27 | RAD_ITS ---
INDICATION: Fall, right shoulder pain EXAMINATION/TECHNIQUE: X-RAY - RIGHT XR Shoulder Min 2 Views: AP and scapular Y views COMPARISON: None. FINDINGS: SOFT TISSUES: No significant soft tissue swelling. No radiopaque foreign body detected. BONES/JOINTS: No acute fracture or subluxation. Normal alignment. Acromioclavicular and glenohumeral degenerative joint space narrowing and osteophytosis. No suspicious osseous lesion observed. RAD/Shoulder min 2 Views IMPRESSION: Osteoarthritic changes right shoulder with no acute osseous injury. Electronically Signed: Sunil Crenshaw MD at 8:09 EDT ,
--- NOTE | 2023-06-15 06:27 | RAD_ITS ---
INDICATION: Fall with low back pain EXAMINATION/TECHNIQUE: X-RAY - XR Spine Lumbar 2 or [address] abdomen and pelvis from 06/17/2020: None. FINDINGS: No evidence of acute lumbar spinal fracture or traumatic subluxation. Vertebral body heights are preserved. Chronic grade 1 anterolisthesis of L5 over S1 with L5-S1 degenerative disc space narrowing. Multilevel degenerative facet arthropathy also noted. Symmetric bilateral sacroiliac joints. Abdominal surgical clips and sutures noted. Previous right hip arthroplasty. Severe left hip degenerative joint space narrowing. Vascular calcifications present. RAD/Lumbar Spine 2 or 3 Views IMPRESSION: Degenerative changes with no evidence of acute osseous injury. Electronically Signed: Sunil Crenshaw MD at 8:13 EDT ,
--- NOTE | 2023-06-15 06:36 | ED.VIS.FALL ---
HPI <Dr. Tom Ling MD - Last Filed: 06/15/23 07:56> HPI - Fall History of Present Illness Chief Complaint: Fall Informant: patient and family Narrative Narrative: Patient presents after a fall out of her chair. Patient states she thinks she was getting up to go the restroom. She was quite awake. She got up out of a lazy boy type chair and fell forward. She landed on her face and right hand. She has mostly pain in the right shoulder. She states that is chronic but it is more than usual. She has a little bit of pain in her right small finger area. She has pain in her left hip but she also always has pain there and is due to have it replaced in July. She does not think she lost consciousness but is not sure. She had a nosebleed but it has stopped. No actual headache. No numbness tingling. No nausea vomiting. No visual change. She is acting normally per family. [facility], [facility] <Dr. Tom Ling MD - Last Filed: 06/15/23 07:56> [facility] Medical History (Updated 06/15/23 @ 07:[address] 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 Depressive disorder Diverticulitis large intestine Dyspnea Edema Essential (primary) hypertension Fatty liver History of thyroid cancer Infected hernioplasty mesh Infected prosthetic mesh of abdominal wall Mixed hyperlipidemia Morbid obesity Myalgia ABDI (obstructive sleep apnea) Osteoarthritis Pneumonia Pulmonary hypertension SBO (small bowel obstruction) Sensorineural hearing loss (SNHL), bilateral Small bowel obstruction Type 2 diabetes mellitus Home Medications docusate sodium 100 mg capsule 100 mg PO DAILY stool softener 06/06/19 [History Last Taken 06/14/20] [id number] 45 mg-folic acid 800 mcg-vit K 120 mcg capsule 1 ea PO DAILY vitamins 06/06/19 [History Last Taken 06/14/20] calcium citrate 315 mg calcium-vitamin D3 6.25 mcg (250 unit) tablet 2 ea PO BID vitamin 07/04/19 [History Last Taken 06/14/20] metoprolol tartrate 25 mg tablet 25 mg PO BID 07/04/19 [History Last Taken Unknown] fluticasone propionate 50 mcg/actuation nasal spray,suspension (Flonase Allergy Relief) 2 spray intranasal DAILY PRN Allergies 07/23/19 [History Last Taken Unknown] diphenhydramine HCl 25 mg tablet (Benadryl Allergy) 25 mg PO DAILY PRN Itching 06/04/20 [History Last Taken Unknown] nitroglycerin 0.4 mg sublingual tablet 0.4 mg sublingual Q5-15M PRN Pain Score 1-06/1906/04/20 [History Last Taken Unknown] polyethylene glycol 3350 17 gram/dose oral powder (Miralax) 17 g PO DAILY bm 06/04/20 [History Last Taken 06/14/20] aspirin 81 mg chewable tablet 81 mg PO DAILY 08/26/21 [History Last Taken Unknown] diclofenac sodium 1 % topical gel (Arthritis Pain (diclofenac)) 2 g topical 4X/DAY PRN Pain 08/26/21 [History Last Taken Unknown] duloxetine 60 mg capsule,delayed release 60 mg PO DAILY 08/26/21 [History Last Taken Unknown] ferrous sulfate 325 mg (65 mg iron) tablet 325 mg PO BID 08/26/21 [History Last Taken Unknown] melatonin 10 mg capsule 10 mg PO HS PRN Sleep 08/26/21 [History Last Taken Unknown] gabapentin 300 mg capsule 600 mg PO QAM pain 12/27/21 [History Last Taken Unknown] gabapentin 400 mg capsule 800 mg PO QPM 12/27/21 [History Last Taken Unknown] insulin detemir U-100 100 unit/mL (3 mL) subcutaneous pen See Rx Instructions subcut .COMPLEX diabetes 12/27/21 [History Last Taken Unknown] lactulose 10 gram/15 mL oral solution 30 g PO DAILY Constipation 12/27/21 [History Last Taken Unknown] levothyroxine 175 mcg tablet See Rx Instructions PO .COMPLEX 12/27/21 [History Last Taken Unknown] meclizine 25 mg tablet 12.5 mg PO DAILY PRN Dizziness 12/27/21 [History Last Taken Unknown] memantine 5 mg tablet 5 mg PO BID 12/27/21 [History Last Taken Unknown] furosemide 40 mg tablet 40 mg PO TID 03/01/22 [History Last Taken Unknown] naltrexone 4.5 mg PO QHS 03/01/22 [History Last Taken Unknown] alpha lipoic acid 200 mg tablet 200 mg PO TID 10/04/22 [History Last Taken Unknown] clindamycin HCl 150 mg capsule 150 mg PO .COMPLEX 10/04/22 [History Last Taken Unknown] insulin aspart U-100 100 unit/mL (3 mL) subcutaneous pen 14 unit subcut TID diabetes 10/04/22 [History Last Taken Unknown] evolocumab 140 mg/mL subcutaneous pen injector (Repatha SureClick) 140 mg subcut Q2W #2 mL 10/06/22 [Rx Last Taken Unknown] allopurinol 100 mg tablet 300 mg PO DAILY 04/09/23 [History Last Taken Unknown] colchicine (gout) 0.6 mg tablet 0.6 mg PO DAILY 04/09/23 [History Last Taken Unknown] Allergy/AdvReac Type Severity Reaction Status Date / Time adhesive Allergy Hives Verified 06/15/23 06:19 ampicillin Allergy Rash Verified 06/15/23 06:19 cephalexin monohydrate Allergy Hives Verified 06/15/23 06:19 [From Keflex] ciprofloxacin [From Cipro] Allergy Swelling Verified 06/15/23 06:19 Environmental Allergies: Allergy Other Verified 06/15/23 06:19 Uncoded [metals] ketorolac tromethamine Allergy Hives Verified 06/15/23 06:19 [From Toradol] nickel [Nickel] Allergy Other Verified 06/15/23 06:19 insulin glargine AdvReac Other Verified 06/15/23 06:19 [From Lantus U-100 Insulin] Hesmasu-XJK-JpP Reductase AdvReac Other Verified 06/15/23 06:19 Inhibitor [Srzkyne-Nlj-Hul Reductase Inhibitor] Family History Father Myocardial infarction Mother COPD (chronic obstructive pulmonary disease) Brother AAA (abdominal aortic aneurysm) Lung cancer Pancreatitis Sister Hypertension Diabetes CAD (coronary artery disease) partial detached retina Surgical History cataract lens implant H/O colonoscopy H/O hernia repair H/O thyroidectomy H/O total hysterectomy H/O umbilical hernia repair History of bariatric surgery History of bladder suspension procedure History of left heart catheterization (09/13/17) History of total left knee replacement History of total right hip replacement (~09/2021) History of total right knee replacement Hx of appendectomy Hx of cholecystectomy Right kidney lesion removal akshat linares Social History housing: house current occupational status: retired pets and animals: Yes pets and animals: cat(s) Smoking Status: Former smoker quit date: 09/10/90 pack-years: 16 alcohol intake: current alcohol intake frequency: holidays/special occasions only Alcohol type: wine substance use type: does not use ROS <Dr. Tom Ling MD - Last Filed: 06/15/23 07:56> ROS ED ROS Narrative A complete review of systems was performed and is negative except as documented in the history of present illness. Some specific details below. Constitutional: No recent fevers or chills. No rigors. Patient has not generally felt ill. EYE: No discharge, visual complaints, or pain. ENT: Patient had some mild nasal bleeding but it is stopped. CV: No chest pain, pressure or aching. No palpitations or irregular beats. Patient has not been presyncopal or syncopal. Her fall was mechanical trying to get up out of a chair while not fully awake. Respiratory: No trouble breathing. No cough. No wheezing. No sputum production. No pain with breathing. GI: No abdominal pain. No nausea vomiting diarrhea. No blood in stool. : No frequency dysuria or hematuria. Musculoskeletal: See history of present illness Skin: Abrasion to the tip of the nose Neuro: No focal or lateralizing weakness or numbness. No difficulty with speaking. No difficulty understanding speech. No visual loss. Endocrine: No polyuria or polydipsia. EXAM <Dr. Tom Ling MD - Last Filed: 06/15/23 07:56> Physical Exam Narrative Exam Narrative: General: Patient is awake alert she does not want anything for pain right now. HEENT: There is an abrasion of the front of the nose. But no deformity. No active bleeding. Slight dried blood in both nares. No septal hematoma. Oropharynx is clear. No pain with opening or closing the mouth. No facial tenderness. Neck is supple without tenderness. Lungs are clear. No chest wall tenderness. No sternal tenderness. No subcu air. Saturations are normal at 97% on room air showing no hypoxia. Heart is regular. Rate of about 60. Abdomen: Obese but not tender. Spine: No cervical thoracic tenderness. She has mild tenderness down very low in the lumbar area. But she also has pain down there frequently. It is hard for her to tell if it is dramatically different or not. Extremities: No obvious deformity or contusion of the right shoulder. There is a little bit of swelling of her right small finger. No pain anywhere else in the upper extremities. She has had bilateral knees replaced but there is no tenderness in the lower knee or lower legs. There is a little bit of tenderness with palpation on greater trochanter on the left. But her leg does not look shortened or rotated. Const Vital Signs: 06/15/23 06:16 06/15/23 06:22 06/15/23 08:41 Temperature 97.1 F L Temperature Source Temporal Pulse Rate 58 L Respiratory Rate 16 16 Blood Pressure 128/59 H Blood Pressure Mean 82 Pulse Ox 97 98 Oxygen Delivery Method Room Air Room Air <Wilber Izquierdo MD - Last Filed: 06/15/23 09:35> Physical Exam Const Vital Signs: 06/15/23 06:16 06/15/23 06:22 06/15/23 08:41 Temperature 97.1 F L Temperature Source Temporal Pulse Rate 58 L Respiratory Rate 16 16 Blood Pressure 128/59 H Blood Pressure Mean 82 Pulse Ox 97 98 Oxygen Delivery Method Room Air Room Air MDM <Dr. Tom Ling MD - Last Filed: 06/15/23 07:56> [facility] Narrative Medical decision making narrative: My independent interpretation the patient's CT of the head shows no acute process. My independent interpretation the patient's CT of the neck shows no fracture. There are a lot of arthritic changes. My independent interpretation the patient's two-view x-ray of her right shoulder shows arthritic changes and calcific tendinitis but no fracture or dislocation. My independent interpretation the 5 view x-ray of the right hand shows multiple areas of arthritic change but again no fracture or dislocation. My independent interpretation the patient's three-view left hip shows arthritic changes and her prior right hip arthroplasty but no sign of acute fracture or dislocation. Final reading of the above images are pending. As long as these are okay I think we get the patient up to walk. As long as she is feeling okay we should be able to get her home. Radiography Diagnostic Testing: Clinical Impression(s) from Imaging Studies Brain CT 06/15/23 06:26 IMPRESSION: Chronic involutional and white matter changes. No evidence of acute intracranial abnormality. Electronically Signed: Sunil Crenshaw MD at 8:02 EDT , Cervical Spine CT 06/15/23 06:26 IMPRESSION: Multilevel spondylosis but no evidence of acute cervical spinal injury. Electronically Signed: Sunil Crenshaw MD at 8:15 EDT , Hand X-Ray 06/15/23 06:27 IMPRESSION: Osteoarthritic changes with no acute osseous injury. Electronically Signed: Sunil Crenshaw MD at 8:08 EDT , Hip/Pelvis X-Ray 06/15/23 06:27 IMPRESSION: No evidence of acute osseous injury. Previous right hip arthroplasty with severe left hip osteoarthritis. Electronically Signed: Sunil Crenshaw MD at 8:11 EDT , Lumbar Spine X-Ray 06/15/23 06:27 IMPRESSION: Degenerative changes with no evidence of acute osseous injury. Electronically Signed: Sunil Crenshaw MD at 8:13 EDT , Shoulder X-Ray 06/15/23 06:27 IMPRESSION: Osteoarthritic changes right shoulder with no acute osseous injury. Electronically Signed: Sunil Crenshaw MD at 8:09 EDT , <Wilber Izquierdo MD - Last Filed: 06/15/23 09:35> [facility] MDM Narrative Medical decision making narrative: My independent interpretation the patient's CT of the head shows no acute process. My independent interpretation the patient's CT of the neck shows no fracture. There are a lot of arthritic changes. My independent interpretation the patient's two-view x-ray of her right shoulder shows arthritic changes and calcific tendinitis but no fracture or dislocation. My independent interpretation the 5 view x-ray of the right hand shows multiple areas of arthritic change but again no fracture or dislocation. My independent interpretation the patient's three-view left hip shows arthritic changes and her prior right hip arthroplasty but no sign of acute fracture or dislocation. Final reading of the above images are pending. As long as these are okay I think we get the patient up to walk. As long as she is feeling okay we should be able to get her home. Dr. Izquierdo: Patient endorsed to me by Dr. Ling to review the radiology reports on this patient with fall and abrasions to her face. I reviewed the radiology reports and there are no evidence of fracture in the above-mentioned x-rays. I also reviewed the radiology report of the CT head and C-spine which shows osteoarthritis but no acute hemorrhage or skull fracture. She was given Tylenol 500 mg here in the emergency department for analgesia. I do feel that she would be able to be discharged safely home with follow-up to her orthopedic surgeon and primary care provider. Her at the bedside is agreeable with the plan as well. Disposition is discharged home in stable condition. Radiography Diagnostic Testing: Clinical Impression(s) from Imaging Studies Brain CT 06/15/23 06:26 IMPRESSION: Chronic involutional and white matter changes. No evidence of acute intracranial abnormality. Electronically Signed: Sunil Crenshaw MD at 8:02 EDT , Cervical Spine CT 06/15/23 06:26 IMPRESSION: Multilevel spondylosis but no evidence of acute cervical spinal injury. Electronically Signed: Sunil Crenshaw MD at 8:15 EDT , Hand X-Ray 06/15/23 06:27 IMPRESSION: Osteoarthritic changes with no acute osseous injury. Electronically Signed: Sunil Crenshaw MD at 8:08 EDT , Hip/Pelvis X-Ray 06/15/23 06:27 IMPRESSION: No evidence of acute osseous injury. Previous right hip arthroplasty with severe left hip osteoarthritis. Electronically Signed: Sunil Crenshaw MD at 8:11 EDT , Lumbar Spine X-Ray 06/15/23 06:27 IMPRESSION: Degenerative changes with no evidence of acute osseous injury. Electronically Signed: Sunil Crenshaw MD at 8:13 EDT , Shoulder X-Ray 06/15/23 06:27 IMPRESSION: Osteoarthritic changes right shoulder with no acute osseous injury. Electronically Signed: Sunil Crenshaw MD at 8:09 EDT , Discharge Plan Triage Chief Complaint: Fall ED Provider: Listerman,Peter Dx/Rx/DC Orders Clinical Impression: Fall at home, Abrasion of face, Contusion of hand, right, Contusion of right shoulder region Instructions: ED Abrasion, ED Hand Contusion, ED Mechanical Fall, ED Head Injury (Adult), ED Hip Contusion, ED Shoulder Contusion Prescriptions: No Action fluticasone propionate [Flonase Allergy Relief] 50 mcg/actuation spray,suspension 2 spray INTRANASAL DAILY PRN (Reason: Allergies) diphenhydramine HCl [Benadryl Allergy] 25 mg tablet 25 mg PO DAILY PRN (Reason: Itching) polyethylene glycol 3350 [Miralax] 17 gram/dose powder 17 g PO DAILY nitroglycerin 0.4 mg tablet, sublingual 0.4 mg SUBLINGUAL Q5-15M PRN (Reason: Pain Score 1-10/10) Rx Instructions: do not exceed 3 doses per episode diclofenac sodium [Arthritis Pain (diclofenac)] 1 % gel 2 g topical 4X/DAY PRN (Reason: Pain) Rx Instructions: apply to single elbow, wrist or hand; for hand includes palm/fingers/back of hand aspirin 81 mg tablet,chewable 81 mg PO DAILY duloxetine 60 mg capsule,delayed release(DR/EC) 60 mg PO DAILY melatonin 10 mg capsule 10 mg PO HS PRN (Reason: Sleep) meclizine 25 mg tablet 12.5 mg PO DAILY PRN (Reason: Dizziness) gabapentin 400 mg capsule 800 mg PO QPM lactulose 10 gram/15 mL solution 30 g PO DAILY levothyroxine 175 mcg tablet See Rx Instructions PO .COMPLEX Rx Instructions: Take 1 tablet daily + 1/2 extra tab on Sunday ONLY memantine 5 mg tablet 5 mg PO BID furosemide 40 mg tablet 40 mg PO TID naltrexone capsule 4.5 mg PO QHS alpha lipoic acid 200 mg tablet 200 mg PO TID clindamycin HCl 150 mg capsule 150 mg PO .COMPLEX Rx Instructions: 150 mg orally take 4 caps by mouth 30-60 minutes prior to dental visit; allopurinol 100 mg tablet 300 mg PO DAILY colchicine (gout) 0.6 mg tablet 0.6 mg PO DAILY gabapentin 300 mg capsule 600 mg PO QAM Patient Comments: nerve pain insulin aspart U-100 100 unit/mL (3 mL) insulin pen 14 unit SC TID Protocol: 6. Sliding Scale Insulin Custom Condition: mg/dl range Dose/Route: Number of Units Condition: 150-174 Dose/Route: 2 Condition: 175-199 Dose/Route: 4 Condition: 200-224 Dose/Route: 6 Condition: 225-249 Dose/Route: 8 Condition: 250-299 Dose/Route: 10 Condition: 300-349 Dose/Route: 14 Condition: 350-400 Dose/Route: 18 Condition: >400 Dose/Route: 22 Protocol Text: 14 units plus sliding scale TID with meals Rx Instructions: SLIDING SCALE Breakfast 7u = sliding scale lunch 5u + sliding scale Dinner 7u + sliding scale Snack 5u + sliding scale [id number] K 1 EACH capsule 1 ea PO DAILY docusate sodium 100 MG capsule 100 mg PO DAILY metoprolol tartrate 25 MG tablet 25 mg PO BID calcium citrate-vitamin D3 1 EACH tablet 2 ea PO BID insulin detemir U-100 100 unit/mL (3 mL) insulin pen See Rx Instructions SC .COMPLEX Rx Instructions: Take 30 units in AM & 55 units in PM ferrous sulfate 325 mg (65 mg iron) tablet 325 mg PO BID Repatha SureClick 140 mg/mL pen injector 140 mg subcut Q2W Qty: 2 12RF Primary Care Provider: Jesus Davila Referrals: Jesus Davila MD [Primary Care Provider] - As soon as possible Activity Restrictions/Additional Instructions: Tylenol as needed for pain. Follow-up with your primary care physician and your orthopedic surgeon as needed. Disposition Disposition: Home, Self Care Discharge Date/Time: 06/15/23 08:43
[2023-06-15] MEDS: Acetaminophen 500 MG Tablet PO (08:35)
[2023-06-15 08:41] VITALS: RESP 16; O2SAT 98
== END 2023-06-15 08:43 | disposition home or self-care (01) ==
PROVIDERS: Emergency Provider Emergency Medicine; PCP Internal Medicine; Visit Provider Emergency Medicine
DX: S40.011A Contusion of right shoulder, initial encounter (principal); I13.0 Hypertensive heart and chronic kidney disease with heart failure and stage 1 through stage 4 chronic kidney disease, or unspecified chronic kidney disease; I50.32 Chronic diastolic (congestive) heart failure; E11.22 Type 2 diabetes mellitus with diabetic chronic kidney disease; Z79.4 Long term (current) use of insulin; N18.30 Chronic kidney disease, stage 3 unspecified; S60.221A Contusion of right hand, initial encounter; E78.2 Mixed hyperlipidemia; I25.10 Atherosclerotic heart disease of native coronary artery without angina pectoris; Z87.891 Personal history of nicotine dependence; W07.XXXA Fall from chair, initial encounter; S00.81XA Abrasion of other part of head, initial encounter; Y92.009 Unspecified place in unspecified non-institutional (private) residence as the place of occurrence of the external cause; Z79.899 Other long term (current) drug therapy; Z79.82 Long term (current) use of aspirin; Z90.710 Acquired absence of both cervix and uterus; Z96.653 Presence of artificial knee joint, bilateral; Z96.642 Presence of left artificial hip joint; Z90.49 Acquired absence of other specified parts of digestive tract
CPT/HCPCS: 70450; 72100; 72125; 73030; 73130; 73502; 99284

== ENCOUNTER → 2023-07-04 | Outpatient (CLI) | payer MEDICARE, SELFPAY ==
[2023-07-04 15:16] LABS: Protein, Urine (Random) 20.3 mg/dL (<11.9); Protein:Creat Ratio 142 mg/g CRE (0-200)
[2023-07-04 16:07] LABS: Albumin, Serum 3.7 g/dL (3.2-5.0); BUN 22 mg/dL (7-18); BUN/Creat Ratio 17.7 RATIO (10-20); Calcium,Total 9.2 mg/dL (8.5-10.1); Chloride 106 mmol/L (98-107); Creatinine, Serum 1.24 mg/dL (0.55-1.02); EST Glomerular Filtration Rate 45 mL/min (>60); Est Glom Filt Rate - Afr Amer 54 mL/min (>60); Glucose 174 mg/dL (74-106); Phosphorus 3.7 mg/dL (2.5-4.9); Potassium 3.8 mmol/L (3.5-5.1); Sodium Level 141 mmol/L (136-145); Uric Acid 6.1 mg/dL (2.6-6.0)
== END | disposition home or self-care (01) ==
LOC: LAB 14:27
PROVIDERS: PCP Internal Medicine; Referring Provider Internal Medicine Nephrology; Visit Provider Internal Medicine Nephrology
DX: N18.32 Chronic kidney disease, stage 3b (principal); E11.22 Type 2 diabetes mellitus with diabetic chronic kidney disease; M10.9 Gout, unspecified
CPT/HCPCS: 36415; 80069; 82570; 84156; 84550

== ENCOUNTER 2024-01-15 21:29 | Emergency (ER) | payer MEDICARE, SELFPAY ==
[2024-01-15 21:34] VITALS: BP 114/69; PULSE 79; RESP 20; TEMP 36.6; O2SAT 98; BMI 37.3
--- NOTE | 2024-01-15 22:11 | EKG12_ITS ---
Test Reason : CP Blood Pressure : / mmHG Vent. Rate : 070 BPM Atrial Rate : 070 BPM P-R Int : 168 ms QRS Dur : 086 ms QT Int : 426 ms P-R-T Axes : 022 -56 026 degrees QTc Int : 460 ms Normal sinus rhythm Low voltage QRS Left anterior fascicular block Cannot rule out Inferior infarct (masked by fascicular block?) , age undetermined Possible Anterolateral infarct , age undetermined Abnormal ECG Confirmed by ZAK LOPEZ, SERENE ([id number]), social media editor RADHA MILLER ([id number]) on 01/17/2024 6:57:22 AM Referred By: ALEXSANDRA Confirmed By:SERENE CRESPO MD
--- NOTE | 2024-01-15 22:21 | RAD_ITS ---
INDICATION: chest pain EXAMINATION/TECHNIQUE: X-RAY - XR Chest 1 View COMPARISON: No previous relevant examinations available for comparison.. FINDINGS: LIFE-SUPPORT AND LINES: 1. None HEART AND VESSELS: Cardiac silhouette is upper limit of normal. There is vascular congestion without sung interstitial edema. LUNGS AND PLEURAL SPACES: Lungs are clear. No focal infiltrate, consolidation or effusions. No evidence of pneumothorax. No pulmonary mass is noted. MEDIASTINUM AND HILAR REGIONS: No masses adenopathy noted. No areas of calcification. Visualized upper airway is normal in position. BONY ELEMENTS: No acute bony changes noted. Chronic osteoarthritic changes changes involving both shoulders greater on the RIGHT than LEFT. RAD/Chest 1 View (Portable) IMPRESSION: 1. Borderline cardiomegaly, vascular congestion without sung interstitial edema. 2. No focal infiltrate or consolidation. Electronically Signed: Kiran Heredia MD at 22:55 EDT ,
[2024-01-15 22:30] LABS: Absolute Lymphocyte Count 2.28 X10^3/uL (0.83-4.51); Absolute Neutrophil Count 3.8 X10^3/uL (2.0-7.7); Basophil# 0.04 X10^3/uL; Basophil% 0.6 % (0-1); Eosinophil# 0.22 X10^3/uL; Eosinophils% 3.2 % (0-5); Hemoglobin 11.3 g/dL (12.0-15.0); Lymphocyte # 2.28 X10^3/ul (0.83-4.51); Mean Corp Hgb Conc 33.2 g/dL (32-36); Mean Corpuscular Hgb 31.6 pg (27.0-32.0); Mean Platelet Vol. 10.4 fl (6.2-12.0); Monocyte# 0.56 X10^3/uL; Monocyte% 8.1 % (0-10); NRBC Flagged by Analyzer 0 % (0-5); Neutrophil # 3.77 X10^3/uL (2.7-7.7); Neutrophil % 54.7 % (47-70); Platelet Count 176 K/mm3 (150-450); RBC Distribution Width CV 13.9 % (11.6-14.6); Red Blood Count 3.58 M/mm3 (4.2-5.4); White Blood Count 6.9 K/mm3 (4.4-11.0)
[2024-01-15 22:51] LABS: AST(SGOT) 34 U/L (15-37); Alanine Aminotransfer ALT/SGPT 34 U/L (13-56); Albumin, Serum 3.5 g/dL (3.2-5.0); Alkaline Phosphatase 110 U/L (45-117); Anion Gap 6 (5-15); BUN 24 mg/dL (7-18); Calcium,Total 9.1 mg/dL (8.5-10.1); Chloride 108 mmol/L (98-107); Creatinine, Serum 1.09 mg/dL (0.55-1.02); EST Glomerular Filtration Rate 52 mL/min (>60); Est Glom Filt Rate - Afr Amer 63 mL/min (>60); Estimated Creatinine Clearance 46.54 ml/min; Globulin 3.1 g/dL (2.2-4.2); Glucose 182 mg/dL (74-106); Lipase 40 U/L (13-75); Potassium 3.9 mmol/L (3.5-5.1); Protein, Total 6.6 g/dL (6.4-8.2); Sodium Level 142 mmol/L (136-145); Troponin-I HS 7 pg/mL (3.0-54.0)
--- NOTE | 2024-01-15 23:24 | EX.ED.DYSGE1 ---
HPI History of Present Illness Chief Complaint: Chest Pain Informant: patient and spouse/S.O. Narrative Narrative: Patient is a 78-year-old female with past medical history of insulin-dependent diabetes chronic kidney disease hypertension and hyperlipidemia. She is scheduled to have left hip replacement surgery in approximately 1 week. She states because of this she has been undergoing multiple outpatient test to ensure she is medically cleared for surgery. She states that this evening she developed some upper abdominal/lower chest discomfort and because of her history of CAD was concerned this could be cardiac in nature and therefore EMS was called. Patient states that there is no associated nausea vomiting diaphoresis or shortness of breath associated with this and states that after arriving to the hospital she spontaneously beginning to feel better [facility] Medical History Allergic contact dermatitis due to metals Atherosclerotic heart disease of [place] coronary artery without angina pectoris Bowel obstruction Chronic diastolic (congestive) heart failure Chronic sinusitis CKD (chronic kidney disease) stage 3, GFR 30-59 ml/min CKD stage 3 due to type 2 diabetes mellitus Degenerative arthritis of hip Degenerative arthritis of knee 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 Dementia without behavioral disturbance Depressive disorder Diverticulitis large intestine Dyspnea Edema Essential (primary) hypertension Fatty liver History of thyroid cancer Infected hernioplasty mesh Infected prosthetic mesh of abdominal wall Mixed hyperlipidemia Morbid obesity Myalgia ABDI (obstructive sleep apnea) Osteoarthritis Pneumonia Pre-op evaluation Pulmonary hypertension Respiratory infection SBO (small bowel obstruction) Sensorineural hearing loss (SNHL), bilateral Small bowel obstruction Type 2 diabetes mellitus Urine frequency Home Medications [id number] 45 mg-folic acid 800 mcg-vit K 120 mcg capsule 1 ea PO DAILY vitamins 06/06/19 [History Last Taken 06/14/20] calcium citrate 315 mg calcium-vitamin D3 6.25 mcg (250 unit) tablet 2 ea PO BID vitamin 07/04/19 [History Last Taken 06/14/20] metoprolol tartrate 25 mg tablet 25 mg PO BID 07/04/19 [History Last Taken Unknown] fluticasone propionate 50 mcg/actuation nasal spray,suspension (Flonase Allergy Relief) 2 spray intranasal DAILY PRN Allergies 07/23/19 [History Last Taken Unknown] diphenhydramine HCl 25 mg tablet (Benadryl Allergy) 25 mg PO DAILY PRN Itching 06/04/20 [History Last Taken Unknown] nitroglycerin 0.4 mg sublingual tablet 0.4 mg sublingual Q5-15M PRN Pain Score 1-06/1906/04/20 [History Last Taken Unknown] polyethylene glycol 3350 17 gram/dose oral powder (Miralax) 17 g PO DAILY bm 06/04/20 [History Last Taken 06/14/20] aspirin 81 mg chewable tablet 81 mg PO DAILY 08/26/21 [History Last Taken Unknown] diclofenac sodium 1 % topical gel (Arthritis Pain (diclofenac)) 2 g topical 4X/DAY PRN Pain 08/26/21 [History Last Taken Unknown] duloxetine 60 mg capsule,delayed release 60 mg PO DAILY 08/26/21 [History Last Taken Unknown] ferrous sulfate 325 mg (65 mg iron) tablet 325 mg PO BID 08/26/21 [History Last Taken Unknown] meclizine 25 mg tablet 12.5 mg PO DAILY PRN Dizziness 12/27/21 [History Last Taken Unknown] memantine 5 mg tablet 10 mg PO BID 12/27/21 [History Last Taken Unknown] clindamycin HCl 150 mg capsule 150 mg PO .COMPLEX 10/04/22 [History Last Taken Unknown] allopurinol 300 mg tablet 300 mg PO DAILY 10/25/23 [History Last Taken Unknown] colchicine 0.6 mg tablet 0.6 mg PO DAILY PRN gout 10/25/23 [History Last Taken Unknown] insulin aspart U-100 100 unit/mL (3 mL) subcutaneous pen 17 unit subcut TID diabetes 10/25/23 [History Last Taken Unknown] ketoconazole 2 % shampoo topical 10/25/23 [History Last Taken Unknown] levothyroxine 175 mcg tablet 175 mcg PO DAILY 10/25/23 [History Last Taken Unknown] evolocumab 140 mg/mL subcutaneous pen injector (Repatha SureClick) 140 mg subcut Q2W #2 mL 10/31/23 [Rx Last Taken Unknown] polyethylene glycol 3350 17 gram/dose oral powder (Miralax) 17 g PO DAILY 01/15/24 [History Last Taken Unknown] Allergy/AdvReac Type Severity Reaction Status Date / Time adhesive Allergy Hives Verified 10/25/23 13:17 ampicillin Allergy Rash Verified 10/25/23 13:17 cephalexin monohydrate Allergy Hives Verified 10/25/23 13:17 [From Keflex] ciprofloxacin [From Cipro] Allergy Swelling Verified 10/25/23 13:17 Environmental Allergies: Allergy Other Verified 10/25/23 13:17 Uncoded [metals] ketorolac tromethamine Allergy Hives Verified 10/25/23 13:17 [From Toradol] nickel [Nickel] Allergy Other Verified 10/25/23 13:17 insulin glargine AdvReac Other Verified 10/25/23 13:17 [From Lantus U-100 Insulin] Lkmtbje-VFK-SyS Reductase AdvReac Other Verified 10/25/23 13:17 Inhibitor [Xymazsf-Ygc-Ntw Reductase Inhibitor] Family History Father Myocardial infarction Mother COPD (chronic obstructive pulmonary disease) Brother AAA (abdominal aortic aneurysm) Lung cancer Pancreatitis Sister Hypertension Diabetes CAD (coronary artery disease) partial detached retina Surgical History cataract lens implant H/O colonoscopy H/O hernia repair H/O thyroidectomy H/O total hysterectomy H/O umbilical hernia repair History of bariatric surgery History of bladder suspension procedure History of left heart catheterization (09/13/17) History of total left knee replacement History of total right hip replacement (~09/2021) History of total right knee replacement Hx of appendectomy Hx of cholecystectomy Right kidney lesion removal akshat linares Social History housing: house current occupational status: retired pets and animals: Yes pets and animals: cat(s) Smoking Status: Former smoker quit date: 09/10/90 pack-years: 16 alcohol intake: current alcohol intake frequency: holidays/special occasions only Alcohol type: wine substance use type: does not use ROS ROS ED Constitutional Constitutional ED: Denies chills or fever(s) Eyes Eyes: Denies change in vision ENT ENT ED: Denies sore throat Cardiovascular Cardiovascular: Reports chest pain; Denies palpitations or racing heartbeat Respiratory/Chest Respiratory/Chest: Denies cough or dyspnea Gastrointestinal Gastrointestinal: Reports abdominal pain; Denies diarrhea, nausea or vomiting Genitourinary Genitourinary ED: Denies dysuria Musculoskeletal Musculoskeletal: Reports other Details: Positive left hip pain which is chronic in nature Integumentary Denies rash Neurologic Neurologic: Denies headache(s) Hematologic/Lymphatic Hematologic/Lymphatic: Denies easy bleeding or easy bruising EXAM Physical Exam Const Vital Signs: 01/15/24 21:34 01/15/24 21:40 01/15/24 23:30 Temperature 97.8 F Temperature Source Oral Pulse Rate 79 69 Respiratory Rate 20 H 14 Respiratory Effort Normal Blood Pressure 114/69 127/64 H Blood Pressure Mean 84 85 Pulse Ox 98 99 Oxygen Delivery Method Room Air Room Air 01/15/24 23:59 Temperature 36.7 F L Temperature Source Pulse Rate 69 Respiratory Rate 18 Respiratory Effort Blood Pressure 104/73 Blood Pressure Mean 83 Pulse Ox 95 Oxygen Delivery Method Positive well nourished, well developed and obese General Appearance ED: well developed; Negative for pallor Nutritional Appearance: obese HEENT HEENT Narrative: Normocephalic atraumatic Eyes PERRL and EOMs intact bilaterally Neck supple and no JVD Neck Narrative: No nuchal rigidity or meningeal signs Chest Wall Chest Narrative: There is reproducible midsternal to left-sided lower chest wall pain which patient states is similar to the pain she has been experiencing No bony deformity or crepitance noted Resp normal respiratory effort and clear to auscultation bilaterally Resp Narrative: No nasal flaring retractions tachypnea or accessory muscle use Cardio regular rate and regular rhythm Rate: other Other Details: Heart is regular rate and rhythm Radial and carotid pulses are equal and symmetric GI non-distended and no masses GI Narrative: Abdomen is soft and nondistended with normal active bowel sounds. There is mild diffuse tenderness to palpation along the upper abdomen without voluntary guarding or rigidity No pulsatile mass or fluid wave Auscultation: normoactive bowel sounds Palpation: soft Extremity Extremity Narrative: Chronic pain on palpation of the left hip Negative Homans' sign bilaterally Neuro CN's II-XII intact bilaterally Neuro Narrative: Patient is at her baseline mental status without focal neurologic deficit Sensorium / Orientation: alert Psych mental status grossly normal Skin no rashes or lesions noted, no wounds and skin turgor normal General Skin Exam: Negative for jaundice or pallor MDM MDM MDM Narrative Medical decision making narrative: Patient presented to the ER with stable vitals. She reported chest pain but on exam there was both upper abdominal and lower chest discomfort. Differential diagnosis is for pancreatitis versus gastritis versus colitis versus pneumonia versus acute coronary syndrome versus chest wall pain. Secondary to this basic labs were obtained as well as chest x-ray. Chest x-ray revealed no acute lung pathology and labs revealed no clinically significant findings such as an elevated troponin or severe electrolyte abnormality. Upon repeat evaluation the patient reports feeling better and vitals are stable. Therefore at this time with spontaneous resolution of symptoms and overall negative workup she is otherwise safe for discharge. History & Record Review Discussion w/independent historian: Patient and Significant other Lab Data Attestation: I reviewed the patient's lab results. Labs: Laboratory Results - last 24 hr 01/15/24 22:00 WBC 6.9 RBC 3.58 L Hgb 11.3 L Hct 34.0 L MCV 95.0 MCH 31.6 MCHC 33.2 RDW Std Deviation 47.0 H RDW Coeff of Karina 13.9 Plt Count 176 MPV 10.4 Immature Gran % (Auto) 0.400 Neut % (Auto) 54.7 Lymph % (Auto) 33.0 [place] % (Auto) 8.1 Eos % (Auto) 3.2 Baso % (Auto) 0.6 Absolute Neuts (auto) 3.8 Absolute Lymphs (auto) 2.28 Nucleated RBC % 0 Sodium 142 Potassium 3.9 Chloride 108 H Carbon Dioxide 28.0 Anion Gap 6 BUN 24 H Creatinine 1.09 H Estim Creat Clear Calc 46.54 Est GFR (MDRD) Af Amer 63 Est GFR (MDRD) Non-Af 52 L BUN/Creatinine Ratio 22.0 H Glucose 182 H Calcium 9.1 Total Bilirubin 0.40 Direct Bilirubin 0.10 AST 34 ALT 34 Alkaline Phosphatase 110 Troponin I High Sens 7 Total Protein 6.6 Albumin 3.5 Globulin 3.1 Lipase 40 Radiography Diagnostic Testing: Clinical Impression(s) from Imaging Studies Chest X-Ray 01/15/24 22:21 IMPRESSION: 1. Borderline cardiomegaly, vascular congestion without sung interstitial edema. 2. No focal infiltrate or consolidation. Electronically Signed: Kiran Heredia MD at 22:55 EDT , Chest x-ray as interpreted by the emergency medicine physician reveals cardiomegaly with vascular congestion but no pleural effusion or infiltrate or pneumothorax Discharge Plan Triage Chief Complaint: Chest Pain ED Provider: Scooter Lim Dx/Rx/DC Orders Clinical Impression: Nonspecific chest pain, Diabetes mellitus type 2, insulin dependent, Essential (primary) hypertension, Dementia, Chronic kidney disease Instructions: ED Chest Pain, Uncertain Cause Prescriptions: No Action fluticasone propionate [Flonase Allergy Relief] 50 mcg/actuation spray,suspension 2 spray INTRANASAL DAILY PRN (Reason: Allergies) diphenhydramine HCl [Benadryl Allergy] 25 mg tablet 25 mg PO DAILY PRN (Reason: Itching) polyethylene glycol 3350 [Miralax] 17 gram/dose powder 17 g PO DAILY nitroglycerin 0.4 mg tablet, sublingual 0.4 mg SUBLINGUAL Q5-15M PRN (Reason: Pain Score 1-10/10) Rx Instructions: do not exceed 3 doses per episode diclofenac sodium [Arthritis Pain (diclofenac)] 1 % gel 2 g topical 4X/DAY PRN (Reason: Pain) Rx Instructions: apply to single elbow, wrist or hand; for hand includes palm/fingers/back of hand aspirin 81 mg tablet,chewable 81 mg PO DAILY Patient Comments: stopped this week prior to hip surgery duloxetine 60 mg capsule,delayed release(DR/EC) 60 mg PO DAILY meclizine 25 mg tablet 12.5 mg PO DAILY PRN (Reason: Dizziness) memantine 5 mg tablet 10 mg PO BID levothyroxine 175 mcg tablet 175 mcg PO DAILY clindamycin HCl 150 mg capsule 150 mg PO .COMPLEX Rx Instructions: 150 mg orally take 4 caps by mouth 30-60 minutes prior to dental visit; colchicine 0.6 mg tablet 0.6 mg PO DAILY PRN (Reason: gout) allopurinol 300 mg tablet 300 mg PO DAILY ketoconazole 2 % shampoo topical insulin aspart U-100 100 unit/mL (3 mL) insulin pen 17 unit SC TID Protocol: 6. Sliding Scale Insulin Custom Condition: mg/dl range Dose/Route: Number of Units Condition: 150-174 Dose/Route: 2 Condition: 175-199 Dose/Route: 4 Condition: 200-224 Dose/Route: 6 Condition: 225-249 Dose/Route: 8 Condition: 250-299 Dose/Route: 10 Condition: 300-349 Dose/Route: 14 Condition: 350-400 Dose/Route: 18 Condition: >400 Dose/Route: 22 Protocol Text: 14 units plus sliding scale TID with meals Rx Instructions: SLIDING SCALE Breakfast 7u = sliding scale lunch 5u + sliding scale Dinner 7u + sliding scale Snack 5u + sliding scale gwhrufqqgybg-vov-gnqh-FA-vit K 1 EACH capsule 1 ea PO DAILY Patient Comments: stopped this week prior to hip surgery metoprolol tartrate 25 MG tablet 25 mg PO BID calcium citrate-vitamin D3 1 EACH tablet 2 ea PO BID ferrous sulfate 325 mg (65 mg iron) tablet 325 mg PO BID polyethylene glycol 3350 [Miralax] 17 gram/dose powder 17 g PO DAILY Repatha SureClick 140 mg/mL pen injector 140 mg subcut Q2W Qty: 2 12RF Primary Care Provider: Jesus Davila Referrals: Jesus Davila MD [Primary Care Provider] - Activity Restrictions/Additional Instructions: Your workup today showed no signs of cardiac damage. Continue your home medications as directed by your doctor and return to the ER should you have any further concerns Disposition Disposition: Home, Self Care Discharge Date/Time: 01/16/24 00:06
[2024-01-15 23:30] VITALS: BP 127/64; PULSE 69; RESP 14; O2SAT 99
[2024-01-15 23:59] VITALS: BP 104/73; PULSE 69; RESP 18; TEMP 2.6; TEMP 36.7; O2SAT 95
== END 2024-01-16 00:06 | disposition home or self-care (01) ==
PROVIDERS: Emergency Provider Emergency Medicine; PCP Internal Medicine; Visit Provider Emergency Medicine
DX: R07.9 Chest pain, unspecified (principal); I13.0 Hypertensive heart and chronic kidney disease with heart failure and stage 1 through stage 4 chronic kidney disease, or unspecified chronic kidney disease; I50.32 Chronic diastolic (congestive) heart failure; F03.90 Unspecified dementia, unspecified severity, without behavioral disturbance, psychotic disturbance, mood disturbance, and anxiety; Z79.4 Long term (current) use of insulin; E11.22 Type 2 diabetes mellitus with diabetic chronic kidney disease; N18.30 Chronic kidney disease, stage 3 unspecified; Z87.891 Personal history of nicotine dependence; I25.10 Atherosclerotic heart disease of native coronary artery without angina pectoris; E78.5 Hyperlipidemia, unspecified; Z79.899 Other long term (current) drug therapy; Z79.82 Long term (current) use of aspirin; Z90.710 Acquired absence of both cervix and uterus; Z96.653 Presence of artificial knee joint, bilateral; Z96.641 Presence of right artificial hip joint; Z90.49 Acquired absence of other specified parts of digestive tract
CPT/HCPCS: 71045; 80048; 80076; 83690; 84484; 85025; 93005; 99283

== ENCOUNTER → 2024-04-23 | Outpatient (CLI) | payer MEDICARE, SELFPAY ==
[2024-04-23 11:00] LABS: Absolute Lymphocyte Count 1.89 X10^3/uL (0.83-4.51); Absolute Neutrophil Count 8.2 X10^3/uL (2.0-7.7); Basophil# 0.05 X10^3/uL; Basophil% 0.5 % (0-1); Eosinophil# 0.07 X10^3/uL; Eosinophils% 0.6 % (0-5); Hematocrit 37.2 % (37-47); Hemoglobin 11.6 g/dL (12.0-15.0); Lymphocyte # 1.89 X10^3/ul (0.83-4.51); Lymphocyte % 17.3 % (19-41); Mean Corp Hgb Conc 31.2 g/dL (32-36); Mean Corpuscular Hgb 28.5 pg (27.0-32.0); Mean Corpuscular Volume 91.4 fL (81-99); Mean Platelet Vol. 9.5 fl (6.2-12.0); Monocyte# 0.64 X10^3/uL; Monocyte% 5.9 % (0-10); NRBC Flagged by Analyzer 0 % (0-5); Neutrophil # 8.16 X10^3/uL (2.7-7.7); Neutrophil % 74.9 % (47-70); Platelet Count 230 K/mm3 (150-450); RBC Distribution Width CV 15.8 % (11.6-14.6); RBC Distribution Width SD 52.3 fl (35.1-43.9); Red Blood Count 4.07 M/mm3 (4.2-5.4); White Blood Count 10.9 K/mm3 (4.4-11.0)
[2024-04-23 11:31] LABS: Albumin, Serum 3.4 g/dL (3.2-5.0); BUN 23 mg/dL (7-18); BUN/Creat Ratio 20.9 RATIO (10-20); Chloride 104 mmol/L (98-107); EST Glomerular Filtration Rate 51 mL/min (>60); Est Glom Filt Rate - Afr Amer 62 mL/min (>60); Glucose 130 mg/dL (74-106); Microalbumin,Random Urine 71.7 mg/L (NO RANGE EST.); Microalbumin:Creatinine Ratio 107.3 mg/g CRE (<30 mg/g CRE); Phosphorus 3.9 mg/dL (2.5-4.9); Potassium 4.1 mmol/L (3.5-5.1); Sodium Level 141 mmol/L (136-145)
== END | disposition home or self-care (01) ==
PROVIDERS: PCP Internal Medicine; Referring Provider Internal Medicine Nephrology; Visit Provider Internal Medicine Nephrology
DX: E11.22 Type 2 diabetes mellitus with diabetic chronic kidney disease (principal); N18.32 Chronic kidney disease, stage 3b; D50.9 Iron deficiency anemia, unspecified
CPT/HCPCS: 36415; 80069; 82043; 82570; 85025

== ENCOUNTER 2024-06-28 14:14 | Emergency (ER) | payer MEDICARE, SELFPAY ==
[2024-06-28 14:14] VITALS: BP 120/73; PULSE 90; RESP 18; TEMP 36.6; O2SAT 98
[2024-06-28 15:33] VITALS: BMI 32.9
[2024-06-28 16:14] VITALS: BP 136/85; PULSE 72; RESP 18; O2SAT 94
--- NOTE | 2024-06-28 16:14 | CT_ITS ---
EXAM: CT ABDOMEN AND PELVIS WITH INTRAVENOUS CONTRAST CLINICAL INDICATION: Rectal Pain TECHNIQUE: Helically acquired images were obtained of the abdomen and pelvis with intravenous contrast. This CT exam was performed using one or more of the following dose reduction techniques: automated exposure control, adjustment of the mA and/or kV according to patient size, and/or use of iterative reconstruction technique. CONTRAST: IV 100mL Isovue-370 COMPARISON: No relevant prior studies available. FINDINGS: LOWER THORAX: Unremarkable. Lung bases are clear. No cardiomegaly. No significant pericardial effusion. ABDOMEN: LIVER: Unremarkable. Homogeneous. No focal mass. GALLBLADDER AND BILE DUCTS: There are surgical clips from a cholecystectomy. No intra- or extrahepatic biliary ductal dilation. PANCREAS: Unremarkable. No focal cystic or solid mass. SPLEEN: Unremarkable. Normal size without focal cystic or solid mass. ADRENALS: Unremarkable. No nodules. KIDNEYS AND URETERS: Unremarkable. Normal renal size and position. No hydronephrosis. STOMACH AND BOWEL: There is mild to moderate stool in the distal sigmoid colon and rectum which may represent developing fecal impaction. There is a moderate amount stool seen throughout the remainder of the colon compatible with constipation. There is thickening the wall of the rectum with surrounding inflammation which may represent proctitis. There is no abscess or fluid collection. There are sutures along the gastric wall. There are gas and fluid-filled loops of small bowel in the pelvis which. No stomach or bowel distention. PELVIS: APPENDIX: No evidence of acute appendicitis. BLADDER: Unremarkable. REPRODUCTIVE: Unremarkable as visualized. No mass. ABDOMEN and PELVIS: INTRAPERITONEAL SPACE: Unremarkable. No ascites or other fluid collection. No free air. BONES/JOINTS: There is a large amount of beam hardening artifact pelvis is bilateral hip replacements. No suspicious lytic or blastic abnormality. SOFT TISSUES: Unremarkable. No discrete abdominal or pelvic wall hernia. VASCULATURE: Unremarkable. Abdominal aorta is non-dilated. LYMPH NODES: Unremarkable. No enlarged lymph nodes. CT/Abdomen/Pelvis W IV Cont ONLY IMPRESSION: Thickening of the wall the rectum with surrounding inflammation which may represent proctitis. There is no abscess or fluid collection. There is moderate stool in the distal sigmoid colon which may represent developing fecal impaction. There is also moderate stool seen throughout the remainder of the colon compatible with constipation. Electronically Signed: John Olmos MD at 18:30 EDT ,
--- NOTE | 2024-06-28 16:24 | ED.VIS.GI ---
HPI HPI - GI History of Present Illness Chief Complaint: Other, Pain/Inj Narrative Narrative: 79-year-old female presents with rectal pain, abdominal pain and bloating that she has had for the last week. She states that approximately a week ago she had a sharp pain in her rectum, and she is only able to have a bowel movement when she has the pain. She denies any fevers or chills, no nausea or vomiting, no exacerbating or alleviating factors. She has had multiple surgeries to her abdomen in the past including gastric sleeve. She also has past medical history of diabetes and chronic kidney disease. She states that nothing really makes it better or worse but she has had rectal pain that sharp and stabbing, and also feels pain in her colon as well. History and physical is mildly limited secondary to dementia. 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 Pre-op evaluation Atherosclerotic heart disease of [place] coronary artery without angina pectoris Infected prosthetic mesh of abdominal wall Infected hernioplasty mesh CKD stage 3 due to type 2 diabetes mellitus Diverticulitis large intestine Chronic diastolic (congestive) heart failure Essential (primary) hypertension Pulmonary hypertension ABDI (obstructive sleep apnea) Dyspnea Small bowel obstruction Bowel obstruction Osteoarthritis Pneumonia Sensorineural hearing loss (SNHL), bilateral Myalgia Fatty liver Edema Depressive disorder Degenerative arthritis of knee Degenerative arthritis of hip Allergic contact dermatitis due to metals CKD (chronic kidney disease) stage 3, GFR 30-59 ml/min SBO (small bowel obstruction) History of thyroid cancer Morbid obesity Type 2 diabetes mellitus Home Medications ?Medication ?Instructions ?Recorded ?Last Taken ?Type [id number] 45 mg-folic 1 ea PO DAILY vitamins 06/06/19 06/14/20 History acid 800 mcg-vit K 120 mcg capsule calcium 315 mg (as 2 ea PO BID vitamin 07/04/19 06/14/20 History citrate)-vitamin D3 6.25 mcg (250 unit) tablet metoprolol tartrate 25 mg tablet 25 mg PO BID 07/04/19 Unknown History fluticasone propionate 50 2 spray intranasal DAILY PRN 07/23/19 Unknown History mcg/actuation nasal Allergies spray,suspension (Flonase Allergy Relief) diphenhydramine HCl 25 mg tablet 25 mg PO DAILY PRN Itching 06/04/20 Unknown History (Benadryl Allergy) nitroglycerin 0.4 mg sublingual 0.4 mg sublingual Q5-15M PRN Pain 06/04/20 Unknown History tablet Score 1-06/19 polyethylene glycol 3350 17 17 g PO DAILY bm 06/04/20 06/14/20 History gram/dose oral powder (Miralax) aspirin 81 mg chewable tablet 81 mg PO DAILY 08/26/21 Unknown History diclofenac sodium 1 % topical gel 2 g topical 4X/DAY PRN Pain 08/26/21 Unknown History (Arthritis Pain (diclofenac)) duloxetine 60 mg capsule,delayed 60 mg PO DAILY 08/26/21 Unknown History release ferrous sulfate 325 mg (65 mg 325 mg PO BID 08/26/21 Unknown History iron) tablet meclizine 25 mg tablet 12.5 mg PO DAILY PRN Dizziness 12/27/21 Unknown History memantine 5 mg tablet 10 mg PO BID 12/27/21 Unknown History clindamycin HCl 150 mg capsule 150 mg PO .COMPLEX 10/04/22 Unknown History allopurinol 300 mg tablet 300 mg PO DAILY 10/25/23 Unknown History colchicine 0.6 mg tablet 0.6 mg PO DAILY PRN gout 10/25/23 Unknown History insulin aspart U-100 100 unit/mL 17 unit subcut TID diabetes 10/25/23 Unknown History (3 mL) subcutaneous pen ketoconazole 2 % shampoo topical 10/25/23 Unknown History levothyroxine 175 mcg tablet 175 mcg PO DAILY 10/25/23 Unknown History evolocumab 140 mg/mL subcutaneous 140 mg subcut Q2W #2 mL 10/31/23 Unknown Rx pen injector (Repatha SureClick) polyethylene glycol 3350 17 17 g PO DAILY 01/15/24 Unknown History gram/dose oral powder (Miralax) Allergy/AdvReac Type Severity Reaction Status Date / Time adhesive Allergy Hives Verified 06/28/24 14:18 ampicillin Allergy Rash Verified 06/28/24 14:18 cephalexin monohydrate (From Allergy Hives Verified 06/28/24 14:18 Keflex) ciprofloxacin (From Cipro) Allergy Swelling Verified 06/28/24 14:18 Environmental Allergies: Allergy Other Verified 06/28/24 14:18 Uncoded (metals) ketorolac tromethamine (From Allergy Hives Verified 06/28/24 14:18 Toradol) nickel (Nickel) Allergy Other Verified 06/28/24 14:18 insulin glargine (From AdvReac Other Verified 06/28/24 14:18 Lantus U-100 Insulin) Mcvdugp-WRK-NnF Reductase AdvReac Other Verified 06/28/24 14:18 Inhibitor (Lilfgbc-Szn-Ddh Reductase Inhibitor) Family History Father Myocardial infarction Mother COPD (chronic obstructive pulmonary disease) Brother AAA (abdominal aortic aneurysm) Lung cancer Pancreatitis Sister Hypertension Diabetes CAD (coronary artery disease) partial detached retina Surgical History History of total right hip replacement (~09/2021) History of bariatric surgery History of left heart catheterization (09/13/17) cataract lens implant History of total left knee replacement History of total right knee replacement H/O hernia repair H/O colonoscopy tummy tuck History of bladder suspension procedure H/O umbilical hernia repair Hx of cholecystectomy Hx of appendectomy H/O total hysterectomy Right kidney lesion removal H/O thyroidectomy Social History housing: house current occupational status: retired pets and animals: Yes pets and animals: cat(s) Smoking Status: Former smoker quit date: 09/10/90 pack-years: 16 alcohol intake: current alcohol intake frequency: holidays/special occasions only Alcohol type: wine substance use type: does not use ROS ROS ED ROS Narrative Focused review of system limited secondary to dementia, positive for rectal pain, abdominal pain and bloating but no fever or chills, no nausea or vomiting, no dysuria, no hematuria. Review of Systems ROS Unobtainable: due to mental condition EXAM Physical Exam Narrative Exam Narrative: Afebrile. Vital signs noted. Regular rate and rhythm. Lungs clear to auscultation bilaterally. Abdomen soft with right lower quadrant tenderness to suprapubic tenderness as well. Neurological examination shows her to be awake, alert, and ambulatory but she needed assistance getting onto the cot. Const Vital Signs: 06/28/24 14:14 06/28/24 15:49 06/28/24 16:14 Temperature 97.8 F Temperature Source Oral Pulse Rate 90 72 Respiratory Rate 18 18 Respiratory Effort Normal Non-Labored Blood Pressure 120/73 136/85 H Blood Pressure Mean 88 102 Pulse Ox 98 94 Oxygen Delivery Method Room Air Room Air 06/28/24 18:00 06/28/24 18:46 Temperature 97.8 F Temperature Source Pulse Rate 72 Respiratory Rate 18 Respiratory Effort Blood Pressure 128/87 H 128/87 H Blood Pressure Mean 100 100 Pulse Ox 93 93 Oxygen Delivery Method Room Air MDM MDM MDM Narrative Medical decision making narrative: Differential diagnosis includes but not limited to diverticulitis versus rectal abscess versus colitis versus obstruction. I have low suspicion for obstruction based on her history and physical as she has not had any nausea or vomiting. Her abdomen did not appear excessively bloated or tympanitic on examination. Patient declined rectal examination. I reviewed her laboratory work and she has normal white count of 7.9, hemoglobin 12.0, hematocrit 37.5, platelet count 192. BUN is slightly elevated at 30 with creatinine 1.22 but she has chronic kidney disease. Alk phos slightly elevated at 128 which I think is nonspecific, chloride elevated at 108. I reviewed the radiology report of the CT of the abdomen and pelvis. She has thickening of the wall of the rectum consistent with proctitis. She may have some fecal retention and evidence of constipation but no acute obstruction. At this point in time, she further refused rectal examination because of the inflammation. I do not feel she needs antibiotics and she has multiple allergies because I feel it is probably more secondary to fecal stasis. Her states she already takes MiraLAX and Colace once a day so I told him to increase this to twice a day. At this point in time, she would like to be discharged. I did discuss admission with her, but she declined. Return instructions to the emergency department were reviewed. Disposition is discharged home in stable condition. History & Record Review Discussion w/independent historian: Patient and Family Lab Data Attestation: I reviewed the patient's lab results. Labs: Laboratory Results - last 24 hr 06/28/24 16:23 WBC 7.9 RBC 4.00 L Hgb 12.0 Hct 37.5 MCV 93.8 MCH 30.0 MCHC 32.0 RDW Std Deviation 50.7 H RDW Coeff of Karina 14.6 Plt Count 192 MPV 9.3 Immature Gran % (Auto) 0.800 Neut % (Auto) 79.1 H Lymph % (Auto) 11.7 L [place] % (Auto) 7.5 Eos % (Auto) 0.6 Baso % (Auto) 0.3 Absolute Neuts (auto) 6.2 Absolute Lymphs (auto) 0.92 Nucleated RBC % 0 Sodium 142 Potassium 4.0 Chloride 108 H Carbon Dioxide 28.0 Anion Gap 6 BUN 30 H Creatinine 1.22 H Estim Creat Clear Calc 38.24 Est GFR (MDRD) Af Amer 55 L Est GFR (MDRD) Non-Af 45 L BUN/Creatinine Ratio 24.6 H Glucose 124 H Calcium 10.0 Total Bilirubin 0.40 AST 26 ALT 34 Alkaline Phosphatase 128 H Total Protein 7.5 Albumin 4.0 Globulin 3.5 Albumin/Globulin Ratio 1.1 Radiography Diagnostic Testing: Clinical Impression(s) from Imaging Studies Abdomen/Pelvis CT 06/28/24 16:14 IMPRESSION: Thickening of the wall the rectum with surrounding inflammation which may represent proctitis. There is no abscess or fluid collection. There is moderate stool in the distal sigmoid colon which may represent developing fecal impaction. There is also moderate stool seen throughout the remainder of the colon compatible with constipation. Electronically Signed: John Olmos MD at 18:30 EDT , Discharge Plan Triage Chief Complaint: Other, Pain/Inj ED Provider: Wilber Izquierdo Dx/Rx/DC Orders Clinical Impression: Constipation, Proctitis, Rectal pain Instructions: Anatomy of the Digestive System, ED Constipation (Adult), ED Pain, Acute, Uncertain Cause Prescriptions: No Action fluticasone propionate [Flonase Allergy Relief] 50 mcg/actuation spray,suspension 2 spray INTRANASAL DAILY PRN (Reason: Allergies) diphenhydramine HCl [Benadryl Allergy] 25 mg tablet 25 mg PO DAILY PRN (Reason: Itching) polyethylene glycol 3350 [Miralax] 17 gram/dose powder 17 g PO DAILY nitroglycerin 0.4 mg tablet, sublingual 0.4 mg SUBLINGUAL Q5-15M PRN (Reason: Pain Score 1-10/10) Rx Instructions: do not exceed 3 doses per episode diclofenac sodium [Arthritis Pain (diclofenac)] 1 % gel 2 g topical 4X/DAY PRN (Reason: Pain) Rx Instructions: apply to single elbow, wrist or hand; for hand includes palm/fingers/back of hand aspirin 81 mg tablet,chewable 81 mg PO DAILY Patient Comments: stopped this week prior to hip surgery duloxetine 60 mg capsule,delayed release(DR/EC) 60 mg PO DAILY meclizine 25 mg tablet 12.5 mg PO DAILY PRN (Reason: Dizziness) memantine 5 mg tablet 10 mg PO BID levothyroxine 175 mcg tablet 175 mcg PO DAILY clindamycin HCl 150 mg capsule 150 mg PO .COMPLEX Rx Instructions: 150 mg orally take 4 caps by mouth 30-60 minutes prior to dental visit; colchicine 0.6 mg tablet 0.6 mg PO DAILY PRN (Reason: gout) allopurinol 300 mg tablet 300 mg PO DAILY ketoconazole 2 % shampoo topical insulin aspart U-100 100 unit/mL (3 mL) insulin pen 17 unit SC TID Protocol: 6. Sliding Scale Insulin Custom Condition: mg/dl range Dose/Route: Number of Units Condition: 150-174 Dose/Route: 2 Condition: 175-199 Dose/Route: 4 Condition: 200-224 Dose/Route: 6 Condition: 225-249 Dose/Route: 8 Condition: 250-299 Dose/Route: 10 Condition: 300-349 Dose/Route: 14 Condition: 350-400 Dose/Route: 18 Condition: >400 Dose/Route: 22 Protocol Text: 14 units plus sliding scale TID with meals Rx Instructions: SLIDING SCALE Breakfast 7u = sliding scale lunch 5u + sliding scale Dinner 7u + sliding scale Snack 5u + sliding scale [id number]-FA-vit K 1 EACH capsule 1 ea PO DAILY Patient Comments: stopped this week prior to hip surgery metoprolol tartrate 25 MG tablet 25 mg PO BID calcium citrate-vitamin D3 1 EACH tablet 2 ea PO BID ferrous sulfate 325 mg (65 mg iron) tablet 325 mg PO BID polyethylene glycol 3350 [Miralax] 17 gram/dose powder 17 g PO DAILY Repatha SureClick 140 mg/mL pen injector 140 mg subcut Q2W Qty: 2 12RF Primary Care Provider: Jesus Davila Referrals: Jesus Davila MD [Primary Care Provider] - 3-5 Days if not improving Activity Restrictions/Additional Instructions: Increase your MiraLAX to twice a day, as well as your Colace to twice a day. Drink plenty of water. Return with fever, increased pain, inability to have a bowel movement, new or worsening symptoms. Print Language: Mosotho Disposition Disposition: Home, Self Care
[2024-06-28 16:32] LABS: Absolute Lymphocyte Count 0.92 X10^3/uL (0.83-4.51); Absolute Neutrophil Count 6.2 X10^3/uL (2.0-7.7); Basophil# 0.02 X10^3/uL; Basophil% 0.3 % (0-1); Eosinophil# 0.05 X10^3/uL; Eosinophils% 0.6 % (0-5); Hematocrit 37.5 % (37-47); Lymphocyte # 0.92 X10^3/ul (0.83-4.51); Lymphocyte % 11.7 % (19-41); Mean Corpuscular Volume 93.8 fL (81-99); Mean Platelet Vol. 9.3 fl (6.2-12.0); Monocyte# 0.59 X10^3/uL; Monocyte% 7.5 % (0-10); NRBC Flagged by Analyzer 0 % (0-5); Neutrophil # 6.24 X10^3/uL (2.7-7.7); Neutrophil % 79.1 % (47-70); Platelet Count 192 K/mm3 (150-450); RBC Distribution Width CV 14.6 % (11.6-14.6); RBC Distribution Width SD 50.7 fl (35.1-43.9); White Blood Count 7.9 K/mm3 (4.4-11.0)
[2024-06-28 16:48] LABS: ALB/GLOB Ratio 1.1 RATIO (0.9-2.4); AST(SGOT) 26 U/L (15-37); Alanine Aminotransfer ALT/SGPT 34 U/L (13-56); Alkaline Phosphatase 128 U/L (45-117); Anion Gap 6 (5-15); BUN 30 mg/dL (7-18); BUN/Creat Ratio 24.6 RATIO (10-20); Chloride 108 mmol/L (98-107); Creatinine, Serum 1.22 mg/dL (0.55-1.02); EST Glomerular Filtration Rate 45 mL/min (>60); Est Glom Filt Rate - Afr Amer 55 mL/min (>60); Estimated Creatinine Clearance 38.24 ml/min; Globulin 3.5 g/dL (2.2-4.2); Glucose 124 mg/dL (74-106); Protein, Total 7.5 g/dL (6.4-8.2); Sodium Level 142 mmol/L (136-145)
--- NOTE | 2024-06-28 17:32 | ED.RN ---
Patient prompted for urine specimen.
[2024-06-28 18:00] VITALS: BP 128/87; O2SAT 93
--- NOTE | 2024-06-28 18:20 | ED.RN ---
Patient ambulated to the bathroom to urinate. Patient's urine missed the hat placed in toilet. Will attempt again at a later time.
[2024-06-28 18:46] VITALS: BP 128/87; PULSE 72; RESP 18; TEMP 36.6; O2SAT 93
== END 2024-06-28 19:12 | disposition home or self-care (01) ==
PROVIDERS: Emergency Provider Emergency Medicine; PCP Internal Medicine; Visit Provider Emergency Medicine
DX: K62.89 Other specified diseases of anus and rectum (principal); I13.0 Hypertensive heart and chronic kidney disease with heart failure and stage 1 through stage 4 chronic kidney disease, or unspecified chronic kidney disease; I50.32 Chronic diastolic (congestive) heart failure; F03.90 Unspecified dementia, unspecified severity, without behavioral disturbance, psychotic disturbance, mood disturbance, and anxiety; E11.22 Type 2 diabetes mellitus with diabetic chronic kidney disease; Z79.4 Long term (current) use of insulin; N18.30 Chronic kidney disease, stage 3 unspecified; I25.10 Atherosclerotic heart disease of native coronary artery without angina pectoris; E78.2 Mixed hyperlipidemia; K59.00 Constipation, unspecified; Z87.891 Personal history of nicotine dependence; Z90.710 Acquired absence of both cervix and uterus; Z79.899 Other long term (current) drug therapy; Z79.82 Long term (current) use of aspirin; Z96.641 Presence of right artificial hip joint; Z96.653 Presence of artificial knee joint, bilateral; Z90.49 Acquired absence of other specified parts of digestive tract
CPT/HCPCS: 74177; 80053; 85025; 99283; Q9967; A4216

== ENCOUNTER 2025-03-16 16:59 | Emergency (ER) | payer MEDICARE, SELFPAY ==
[2025-03-16 17:01] VITALS: BP 115/97; PULSE 108; RESP 18; TEMP 36.3; O2SAT 96; BMI 36.1
[2025-03-16 18:30] LABS: Hematocrit 34.9 % (37-47); Hemoglobin 11.5 g/dL (12.0-15.0); Immature Granulocytes Count 0.040 X10^3/uL (0.0-0.0); Mean Corp Hgb Conc 33.0 g/dL (32-36); Mean Corpuscular Volume 93.8 fL (81-99); Mean Platelet Vol. 10.2 fl (6.2-12.0); NRBC Flagged by Analyzer 0 % (0-5); Platelet Count 163 K/mm3 (150-450); RBC Distribution Width CV 13.6 % (11.6-14.6); RBC Distribution Width SD 45.8 fl (35.1-43.9); Red Blood Count 3.72 M/mm3 (4.2-5.4); White Blood Count 7.2 K/mm3 (4.4-11.0)
[2025-03-16 18:55] LABS: Anion Gap 13 (5-15); BUN 27 mg/dL (4-19); BUN/Creat Ratio 25.1 RATIO (10-20); Calcium,Total 8.8 mg/dL (7.6-11.0); Carbon Dioxide 25.0 mmol/L (21.0-32.0); Chloride 106 mmol/L (98-108); Estimated Creatinine Clearance 41.95 ml/min (50-250); Glucose 128 mg/dL (70-99); Potassium 4.2 mmol/L (3.3-5.1)
[2025-03-16 21:15] VITALS: BP 105/59; PULSE 70; RESP 18; O2SAT 100
--- NOTE | 2025-03-16 22:07 | CT_ITS ---
PROCEDURE: ABDOMEN/PELVIS W IV CONT ONLY 03/16/2025 REASON FOR EXAM: POSTMENOPAUSAL VAGINAL BLEEDING TECHNIQUE: ABDOMEN/PELVIS W IV CONT ONLY Coronal and Sagittal reconstruction series were provided. CONTRAST: Isovue-[id number] VOLUME: 96 mL One or more dose reduction techniques were used (e.g., Automated exposure control, adjustment of the mA and/or kV according to patient size, use of iterative reconstruction technique. RADIATION DOSE SUMMARY: CTDlvol: 25.90 mGy DLP: 1186.01 mGycm COMPARISON: 06/28/2024 FINDINGS: CT SCAN OF THE ABDOMEN AND PELVIS WITH IV CONTRAST CLINICAL HISTORY: . TECHNIQUE: Axial and reformatted sagittal images of the abdomen pelvis obtained after IV contrast administration. FINDINGS: The visualized lung bases are unremarkable. Normal liver. The gallbladder is absent. The extrahepatic common bile duct measures approximately 1.6 cm, an expected finding post cholecystectomy. Normal spleen. Normal pancreas. Normal bilateral adrenal glands. Normal size of the right kidney. 1.2 cm angiomyolipoma is seen in the lower pole of the right kidney. Multiple subcentimeter cysts are seen in the upper pole. There are no right renal calculi. There is no right hydronephrosis. Normal visualized right ureter. Normal size of the left kidney. There is no left renal mass. Tiny cyst is seen in the lower pole of the left kidney. There are no left renal calculi. There is no left hydronephrosis. Normal visualized left ureter. Postsurgical changes are seen in the stomach, probably bariatric. Normal small intestine. Normal colon. The appendix is visualized and appears normal. There is no demonstrated peritoneal fluid. Normal abdominal aorta. Scattered atherosclerotic calcifications are seen in the aortic wall. Normal inferior vena cava. Normal retroperitoneum. Suboptimal visualization of the urinary bladder and pelvis due to streak artifacts arising from bilateral total hip joint replacement. The uterus is not visualized and is probably surgically absent. There is no pelvic mass lesion or lymphadenopathy. There is no pelvic fluid. Normal abdominal wall. Streaky artifacts are seen arising from bilateral hip joint prosthesis. CT/Abdomen/Pelvis W IV Cont ONLY IMPRESSION: Postsurgical changes in the stomach, probably bariatric. Status post cholecystectomy with dilatation of the common bile duct, an expecte d finding post cholecystectomy. Small right renal angiomyolipoma. Subcentimeter bilateral renal cysts. Status post bilateral total hip joint replacement with streaky artifacts limiti ng the pelvic interpretation. No acute process. Nonvisualization of the uterus which could be surgically absent. [facility]
[2025-03-16 23:00] VITALS: BP 122/82; PULSE 61; PULSE 62; RESP 16; O2SAT 98
[2025-03-16] MEDS: 0.9% Normal Saline (500mL Bag) 500 ML 999 ML IV (23:13)
[2025-03-16 23:14] LABS: Mucous, Urine 0 SEEN /hpf (<or=2+)
[2025-03-16 23:21] LABS: Color, Urine Yellow (Yellow); Glucose, Dipstick Normal (Normal); Ketone-Dipstick Negative (Negative); Leukocyte Esterase-Dipstick 500 /ul (Negative); Nitrite-Dipstick Negative (Negative); Occult Blood-Urine 250 /ul (Negative); Protein-Dipstick 30 mg/dl (Negative); Specific Gravity, Urine 1.015 (1.002-1.030); Urine Bilirubin Dipstick Negative (Negative)
[2025-03-16 23:45] LABS: Prothrombin Time (Protime)PT. 13.1 SECONDS (11.7-14.9)
[2025-03-16 23:46] LABS: Partial Thromboplast Time 27.0 Seconds (24.1-36.2)
[2025-03-17 00:21] LABS: Red Blood Cells-Urine > 100 SEEN /hpf (0-5); Squamous Epithelial Cells - UA 0-5 SEEN /hpf (5-10)
--- NOTE | 2025-03-17 00:50 | ED.VIS.FEGU ---
HPI HPI - Female History of Present Illness Chief Complaint: Vag Bleeding Informant: patient and spouse/S.O. Narrative Narrative: Patient is a 79-year-old female with past medical history of insulin-dependent diabetes hypertension and hyperlipidemia. She states that today she was in the den and felt like she had to use the bathroom and when she did so she noticed reportedly a large amount of blood that she felt was coming from her vagina. She denies any history of bleeding disorder or blood thinner use. She states she has had a hysterectomy multiple years ago. Secondary to the sudden onset of the blood she was brought in for evaluation. Otherwise the patient denies any lightheadedness or dizziness or syncope or abdominal pain. 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 Pre-op evaluation Atherosclerotic heart disease of [place] coronary artery without angina pectoris Infected prosthetic mesh of abdominal wall Infected hernioplasty mesh CKD stage 3 due to type 2 diabetes mellitus Diverticulitis large intestine Chronic diastolic (congestive) heart failure Essential (primary) hypertension Pulmonary hypertension ABDI (obstructive sleep apnea) Dyspnea Small bowel obstruction Bowel obstruction Osteoarthritis Pneumonia Sensorineural hearing loss (SNHL), bilateral Myalgia Fatty liver Edema Depressive disorder Degenerative arthritis of knee Degenerative arthritis of hip Allergic contact dermatitis due to metals CKD (chronic kidney disease) stage 3, GFR 30-59 ml/min SBO (small bowel obstruction) History of thyroid cancer Morbid obesity Type 2 diabetes mellitus Home Medications ?Medication ?Instructions ?Recorded ?Last Taken ?Type [id number] 45 mg-folic 1 ea PO DAILY vitamins 06/06/19 06/14/20 History acid 800 mcg-vit K 120 mcg capsule calcium 315 mg (as 2 ea PO BID vitamin 07/04/19 06/14/20 History citrate)-vitamin D3 6.25 mcg (250 unit) tablet metoprolol tartrate 25 mg tablet 25 mg PO BID 07/04/19 Unknown History fluticasone propionate 50 2 spray intranasal DAILY PRN 07/23/19 Unknown History mcg/actuation nasal Allergies spray,suspension (Flonase Allergy Relief) diphenhydramine HCl 25 mg tablet 25 mg PO DAILY PRN Itching 06/04/20 Unknown History (Benadryl Allergy) nitroglycerin 0.4 mg sublingual 0.4 mg sublingual Q5-15M PRN Pain 06/04/20 Unknown History tablet Score 1-06/19 polyethylene glycol 3350 17 17 g PO DAILY bm 06/04/20 06/14/20 History gram/dose oral powder (Miralax) aspirin 81 mg chewable tablet 81 mg PO DAILY 08/26/21 Unknown History diclofenac sodium 1 % topical gel 2 g topical 4X/DAY PRN Pain 08/26/21 Unknown History (Arthritis Pain (diclofenac)) duloxetine 60 mg capsule,delayed 60 mg PO DAILY 08/26/21 Unknown History release ferrous sulfate 325 mg (65 mg 325 mg PO BID 08/26/21 Unknown History iron) tablet meclizine 25 mg tablet 12.5 mg PO DAILY PRN Dizziness 12/27/21 Unknown History memantine 5 mg tablet 10 mg PO BID 12/27/21 Unknown History clindamycin HCl 150 mg capsule 150 mg PO .COMPLEX 10/04/22 Unknown History allopurinol 300 mg tablet 300 mg PO DAILY 10/25/23 Unknown History colchicine 0.6 mg tablet 0.6 mg PO DAILY PRN gout 10/25/23 Unknown History insulin aspart U-100 100 unit/mL 17 unit subcut TID diabetes 10/25/23 Unknown History (3 mL) subcutaneous pen ketoconazole 2 % shampoo topical 10/25/23 Unknown History levothyroxine 175 mcg tablet 175 mcg PO DAILY 10/25/23 Unknown History polyethylene glycol 3350 17 17 g PO DAILY 01/15/24 Unknown History gram/dose oral powder (Miralax) evolocumab 140 mg/mL subcutaneous 140 mg subcut Q2W #2 mL 11/10/24 Unknown Rx pen injector (Repatha SureClick) nitrofurantoin 100 mg PO BID 7 days #14 caps 03/17/25 Unknown Rx monohydrate/macrocrystals 100 mg capsule (Macrobid) Allergy/AdvReac Type Severity Reaction Status Date / Time adhesive Allergy Hives Verified 03/16/25 17:01 ampicillin Allergy Rash Verified 03/16/25 17:01 cephalexin monohydrate (From Allergy Hives Verified 03/16/25 17:01 Keflex) ciprofloxacin (From Cipro) Allergy Swelling Verified 03/16/25 17:01 Environmental Allergies: Allergy Other Verified 03/16/25 17:01 Uncoded (metals) ketorolac tromethamine (From Allergy Hives Verified 03/16/25 17:01 Toradol) nickel (Nickel) Allergy Other Verified 03/16/25 17:01 insulin glargine (From AdvReac Other Verified 03/16/25 17:01 Lantus U-100 Insulin) Ulrmgsh-KBC-MuG Reductase AdvReac Other Verified 03/16/25 17:01 Inhibitor (Yhbiooy-Bxq-Ggm Reductase Inhibitor) Family History Father Myocardial infarction Mother COPD (chronic obstructive pulmonary disease) Brother AAA (abdominal aortic aneurysm) Lung cancer Pancreatitis Sister Hypertension Diabetes CAD (coronary artery disease) partial detached retina Surgical History History of total right hip replacement (~09/2021) History of bariatric surgery History of left heart catheterization (09/13/17) cataract lens implant History of total left knee replacement History of total right knee replacement H/O hernia repair H/O colonoscopy tummy tuck History of bladder suspension procedure H/O umbilical hernia repair Hx of cholecystectomy Hx of appendectomy H/O total hysterectomy Right kidney lesion removal H/O thyroidectomy Social History housing: house current occupational status: retired pets and animals: Yes pets and animals: cat(s) Smoking Status: Former smoker quit date: 09/10/90 pack-years: 16 alcohol intake: current alcohol intake frequency: holidays/special occasions only Alcohol type: wine substance use type: does not use ROS ROS ED Constitutional Constitutional ED: Denies chills or fever(s) Eyes Eyes: Denies blurry vision or change in vision ENT ENT ED: Denies sore throat Cardiovascular Cardiovascular: Reports other Details: Negative syncope ; Denies chest pain Respiratory/Chest Respiratory/Chest: Denies cough or dyspnea Gastrointestinal Gastrointestinal: Denies abdominal pain, diarrhea, melena, nausea or vomiting Genitourinary Genitourinary ED: Reports other Details: Positive vaginal bleeding ; Denies dysuria Musculoskeletal Musculoskeletal: Denies myalgias Integumentary Denies rash Neurologic Neurologic: Reports other Details: Negative dizziness ; Denies headache(s) Hematologic/Lymphatic Hematologic/Lymphatic: Denies easy bleeding or easy bruising EXAM Physical Exam Const Vital Signs: 03/16/25 17:01 03/16/25 21:15 03/16/25 23:00 Temperature 97.3 F L Temperature Source Temporal Pulse Rate 108 H 70 61 Respiratory Rate 18 18 16 Blood Pressure 115/97 H 105/59 L 122/82 H Blood Pressure Mean 103 74 95 Pulse Ox 96 100 98 Oxygen Delivery Method Room Air Room Air Room Air 03/16/25 23:00 03/17/25 01:00 Temperature 97.9 F Temperature Source Pulse Rate 62 62 Respiratory Rate 16 Blood Pressure 122/82 H 126/64 H Blood Pressure Mean 95 84 Pulse Ox 98 98 Oxygen Delivery Method Room Air Positive well nourished, well developed and obese General Appearance ED: well developed; Negative for pallor Nutritional Appearance: obese HEENT HEENT Narrative: Normocephalic atraumatic Eyes PERRL and EOMs intact bilaterally General Eye ED: Negative for pale conjunctiva or scleral icterus Neck supple Neck Narrative: No nuchal rigidity or meningeal signs Resp normal respiratory effort and clear to auscultation bilaterally Cardio regular rate and regular rhythm Rate: other Other Details: Heart is regular rate and rhythm Radial and carotid pulses are equal and symmetric GI normal to inspection, nondistended, normoactive bowel sounds, soft to palpation, non-tender, non-distended and no masses GI Narrative: Soft nontender nondistended with normal active bowel sounds No voluntary guarding or rigidity or pulsatile mass Auscultation: normoactive bowel sounds Palpation: soft Narrative: External genitalia is normal. There is no obvious abscess or skin breakdown. Speculum exam reveals no blood within the vaginal vault. There is no internal vaginal laceration. There is mild irritation/erythema around the internal vaginal os. There is also mild irritation around the urethra without dried blood or active bleeding noted Rectal exam displays nonbleeding nonthrombosed external hemorrhoids without anal fissure. Rectal tone is normal. Stool is brown in color. Extremity normal to inspection Neuro CN's II-XII intact bilaterally and no sensory deficits noted Neuro Narrative: Patient is awake and alert and at baseline mental status per . There are no focal neurologic deficits Sensorium / Orientation: alert Psych mental status grossly normal Skin no rashes or lesions noted Skin Narrative: Capillary refill is less than 3 seconds General Skin Exam: Negative for pallor MDM MDM MDM Narrative Medical decision making narrative: Patient arrived to the ER normotensive but reported sudden onset of bleeding which she believed was coming from the vagina. She is status post hysterectomy and therefore there is concern for postmenopausal vaginal bleeding caused from potential mass. There is also concern that this could be a GI bleed coming from the intestines or secondary to vaginal trauma such as a laceration or potential infection such as a ruptured abscess. Blood work revealed no signs of acute blood loss anemia and her platelets and bleeding times are normal. Urine sample showed changes consistent with infection and there is a large amount of red blood cells present indicating that the blood is most likely from hemorrhagic cystitis. At this time the bleeding has spontaneously resolved her vitals are stable she does not have need for a blood transfusion and there is no signs of thrombocytopenia or urosepsis. Therefore do not feel the need for further workup in the ER and she be placed on antibiotics which should in theory resolve the infection and reduce the bleeding. This plan of care was discussed with patient and who are agreeable to it and therefore she be discharged home with outpatient follow-up. History & Record Review Discussion w/independent historian: Patient and Significant other Lab Data Attestation: I reviewed the patient's lab results. Labs: Laboratory Results - last 24 hr 03/16/25 03/16/25 03/16/25 17:51 22:16 23:05 WBC 7.2 RBC 3.72 L Hgb 11.5 L Hct 34.9 L MCV 93.8 MCH 30.9 MCHC 33.0 RDW Std Deviation 45.8 H RDW Coeff of Karina 13.6 Plt Count 163 MPV 10.2 Immature Gran % (Auto) 0.600 Neut % (Auto) 66.5 Lymph % (Auto) 23.8 [place] % (Auto) 7.2 Eos % (Auto) 1.5 Baso % (Auto) 0.4 Absolute Neuts (auto) 4.8 Absolute Lymphs (auto) 1.72 Nucleated RBC % 0 PT INR APTT Sodium 143 Potassium 4.2 Chloride 106 Carbon Dioxide 25.0 Anion Gap 13 BUN 27 H Creatinine 1.09 Estim Creat Clear Calc 41.95 L Est GFR (MDRD) Non-Af 52 L BUN/Creatinine Ratio 25.1 H Glucose 128 H Calcium 8.8 Urine Color Yellow Urine Clarity Sl. Cloudy Urine pH 6.5 Ur Specific [place] 1.015 Urine Protein 30 H Urine Glucose (UA) Normal Urine Ketones Negative Urine Occult Blood 250 H Urine Nitrite Negative Urine Bilirubin Negative Urine Urobilinogen Normal Ur Leukocyte Esterase 500 H Urine RBC > 100 SEEN Urine WBC >100 SEEN Ur Squamous Epith Cells 0-5 SEEN Urine Bacteria 2+ Urine Mucus 0 SEEN POC Glucose 154 H 03/16/25 23:10 WBC RBC Hgb Hct MCV MCH MCHC RDW Std Deviation RDW Coeff of Karina Plt Count MPV Immature Gran % (Auto) Neut % (Auto) Lymph % (Auto) [place] % (Auto) Eos % (Auto) Baso % (Auto) Absolute Neuts (auto) Absolute Lymphs (auto) Nucleated RBC % PT 13.1 INR 1.0 APTT 27.0 Sodium Potassium Chloride Carbon Dioxide Anion Gap BUN Creatinine Estim Creat Clear Calc Est GFR (MDRD) Non-Af BUN/Creatinine Ratio Glucose Calcium Urine Color Urine Clarity Urine pH Ur Specific [place] Urine Protein Urine Glucose (UA) Urine Ketones Urine Occult Blood Urine Nitrite Urine Bilirubin Urine Urobilinogen Ur Leukocyte Esterase Urine RBC Urine WBC Ur Squamous Epith Cells Urine Bacteria Urine Mucus POC Glucose Radiography Diagnostic Testing: Clinical Impression(s) from Imaging Studies Abdomen/Pelvis CT 03/16/25 22:07 IMPRESSION: Postsurgical changes in the stomach, probably bariatric. Status post cholecystectomy with dilatation of the common bile duct, an expected finding post cholecystectomy. Small right renal angiomyolipoma. Subcentimeter bilateral renal cysts. Status post bilateral total hip joint replacement with streaky artifacts limiting the pelvic interpretation. No acute process. Nonvisualization of the uterus which could be surgically absent. [facility] Discharge Plan Triage Chief Complaint: Vag Bleeding ED Provider: Scooter Lim Dx/Rx/DC Orders Clinical Impression: Acute hemorrhagic cystitis, Essential (primary) hypertension, Mixed hyperlipidemia, Insulin dependent diabetes mellitus Instructions: UTIs, ED Cystitis Female Adult Prescriptions: New nitrofurantoin monohyd/m-cryst [Macrobid] 100 mg capsule 100 mg PO BID 7 Days Qty: 14 0RF Rx Instructions: must administer with a meal/food No Action fluticasone propionate [Flonase Allergy Relief] 50 mcg/actuation spray,suspension 2 spray INTRANASAL DAILY PRN (Reason: Allergies) diphenhydramine HCl [Benadryl Allergy] 25 mg tablet 25 mg PO DAILY PRN (Reason: Itching) polyethylene glycol 3350 [Miralax] 17 gram/dose powder 17 g PO DAILY nitroglycerin 0.4 mg tablet, sublingual 0.4 mg SUBLINGUAL Q5-15M PRN (Reason: Pain Score 1-10/10) Rx Instructions: do not exceed 3 doses per episode diclofenac sodium [Arthritis Pain (diclofenac)] 1 % gel 2 g topical 4X/DAY PRN (Reason: Pain) Rx Instructions: apply to single elbow, wrist or hand; for hand includes palm/fingers/back of hand aspirin 81 mg tablet,chewable 81 mg PO DAILY Patient Comments: stopped this week prior to hip surgery duloxetine 60 mg capsule,delayed release(DR/EC) 60 mg PO DAILY meclizine 25 mg tablet 12.5 mg PO DAILY PRN (Reason: Dizziness) memantine 5 mg tablet 10 mg PO BID levothyroxine 175 mcg tablet 175 mcg PO DAILY clindamycin HCl 150 mg capsule 150 mg PO .COMPLEX Rx Instructions: 150 mg orally take 4 caps by mouth 30-60 minutes prior to dental visit; colchicine 0.6 mg tablet 0.6 mg PO DAILY PRN (Reason: gout) allopurinol 300 mg tablet 300 mg PO DAILY ketoconazole 2 % shampoo topical insulin aspart U-100 100 unit/mL (3 mL) insulin pen 17 unit SC TID Protocol: 6. Sliding Scale Insulin Custom Condition: mg/dl range Dose/Route: Number of Units Condition: 150-174 Dose/Route: 2 Condition: 175-199 Dose/Route: 4 Condition: 200-224 Dose/Route: 6 Condition: 225-249 Dose/Route: 8 Condition: 250-299 Dose/Route: 10 Condition: 300-349 Dose/Route: 14 Condition: 350-400 Dose/Route: 18 Condition: >400 Dose/Route: 22 Protocol Text: 14 units plus sliding scale TID with meals Rx Instructions: SLIDING SCALE Breakfast 7u = sliding scale lunch 5u + sliding scale Dinner 7u + sliding scale Snack 5u + sliding scale vvwsymbusxij-[id number]-FA-vit K 1 EACH capsule 1 ea PO DAILY Patient Comments: stopped this week prior to hip surgery metoprolol tartrate 25 MG tablet 25 mg PO BID calcium citrate-vitamin D3 1 EACH tablet 2 ea PO BID ferrous sulfate 325 mg (65 mg iron) tablet 325 mg PO BID polyethylene glycol 3350 [Miralax] 17 gram/dose powder 17 g PO DAILY Repatha SureClick 140 mg/mL pen injector 140 mg subcut Q2W Qty: 2 12RF Primary Care Provider: Jesus Davila Referrals: Jesus Davila MD [Primary Care Provider] - Activity Restrictions/Additional Instructions: Your workup today indicates that the bleeding is most likely coming from your bladder and that this was caused from a secondary infection. Take the antibiotic as directed to help resolve symptoms and return to the ER should you have any further concerns Print Language: [place] Disposition Disposition: Home, Self Care Discharge Date/Time: 03/17/25 01:05
[2025-03-17 01:00] VITALS: BP 126/64; PULSE 62; RESP 16; TEMP 36.6; O2SAT 98
== END 2025-03-17 01:05 | disposition home or self-care (01) ==
PROVIDERS: Emergency Medicine; Emergency Provider Emergency Medicine; PCP Internal Medicine; Visit Provider Emergency Medicine
DX: N30.91 Cystitis, unspecified with hematuria (principal); I13.0 Hypertensive heart and chronic kidney disease with heart failure and stage 1 through stage 4 chronic kidney disease, or unspecified chronic kidney disease; I50.32 Chronic diastolic (congestive) heart failure; F03.90 Unspecified dementia, unspecified severity, without behavioral disturbance, psychotic disturbance, mood disturbance, and anxiety; E11.22 Type 2 diabetes mellitus with diabetic chronic kidney disease; Z79.4 Long term (current) use of insulin; N18.30 Chronic kidney disease, stage 3 unspecified; N93.9 Abnormal uterine and vaginal bleeding, unspecified; Z90.710 Acquired absence of both cervix and uterus; E78.2 Mixed hyperlipidemia; I25.10 Atherosclerotic heart disease of native coronary artery without angina pectoris; Z87.891 Personal history of nicotine dependence; Z79.899 Other long term (current) drug therapy; Z96.643 Presence of artificial hip joint, bilateral; Z90.49 Acquired absence of other specified parts of digestive tract
CPT/HCPCS: 74177; 80048; 81001; 82962; 85025; 85610; 85730; 87077; 87086; 87088; 87186; 96360; 99283; Q9967

== ENCOUNTER → 2025-04-30 | Outpatient (CLI) | payer MEDICARE, SELFPAY ==
[2025-04-30 17:35] LABS: Hematocrit 33.7 % (37-47); Hemoglobin 11.0 g/dL (12.0-15.0); Mean Corp Hgb Conc 32.6 g/dL (32-36); Mean Corpuscular Volume 93.4 fL (81-99); Mean Platelet Vol. 10.3 fl (6.2-12.0); Platelet Count 171 K/mm3 (150-450); RBC Distribution Width CV 13.3 % (11.6-14.6); RBC Distribution Width SD 45.4 fl (35.1-43.9); Red Blood Count 3.61 M/mm3 (4.2-5.4); White Blood Count 6.8 K/mm3 (4.4-11.0)
[2025-04-30 18:30] LABS: Albumin, Serum 4.0 g/dL (3.4-4.8); Anion Gap 13 (5-15); BUN 24 mg/dL (4-19); BUN/Creat Ratio 23.0 RATIO (10-20); Calcium,Total 9.7 mg/dL (7.6-11.0); Carbon Dioxide 26.2 mmol/L (21.0-32.0); Chloride 105 mmol/L (98-108); Glucose 125 mg/dL (70-99); Potassium 4.2 mmol/L (3.3-5.1)
== END | disposition home or self-care (01) ==
LOC: LAB 16:37
PROVIDERS: PCP Internal Medicine; Referring Provider Internal Medicine Nephrology; Visit Provider Internal Medicine Nephrology
DX: E11.22 Type 2 diabetes mellitus with diabetic chronic kidney disease (principal); N18.32 Chronic kidney disease, stage 3b; D50.9 Iron deficiency anemia, unspecified
CPT/HCPCS: 36415; 80069; 85027

== ENCOUNTER → 2025-05-01 | Outpatient (CLI) | payer MEDICARE, SELFPAY ==
[2025-05-01 16:57] LABS: Creatinine, Urine (random) 50.10 mg/dL (28.00-217.00); Microalbumin,Random Urine 63.5 mg/L (<20 mg/L)
== END | disposition home or self-care (01) ==
LOC: MTLAB 13:40
PROVIDERS: PCP Internal Medicine; Referring Provider Internal Medicine Nephrology; Visit Provider Internal Medicine Nephrology
DX: E11.22 Type 2 diabetes mellitus with diabetic chronic kidney disease (principal); N18.32 Chronic kidney disease, stage 3b; D50.9 Iron deficiency anemia, unspecified
CPT/HCPCS: 82043; 82570

== ENCOUNTER → 2025-05-04 | Outpatient (CLI) | payer MEDICARE, SELFPAY ==
--- NOTE | 2025-05-04 06:37 | ECHOCS_ITS ---
Reason For Study Reason For Study: PRE OPERATIVE Procedure This was a 2D Doppler, Color Flow transthoracic echocardiogram. Technically difficult study due to patient position, Patient scanned laying flat and unable to move left arm from body. Contrast injection was performed. Exam performed in department. Left Ventricle Normal LV size. Left ventricular systolic function is normal. The left ventricular ejection fraction is 65 %. No regional wall motion abnormalities noted. Right Ventricle Normal RV size. Normal systolic function. Atria Normal left atrium. Normal right atrium. Mitral Valve Normal mitral valve. Tricuspid Valve Normal tricuspid valve. Aortic Valve Trisinus/trileaflet aortic valve. Pulmonic Valve The pulmonic valve is not well visualized. Great Vessels Normal aortic root. The pulmonary artery is normal size. Inferior vena cava collapse with respiration. Pericardium/Pleural No pericardial effusion. Epicardial fat. Medication Diluted definity 2ml given slow IV push to enhance endocardial definition. MMode/2D Measurements & Calculations LVIDd: 4.0 cm IVSd: 1.0 cm LAV(MOD-sp4): 36.0 ml LVIDs: 2.7 cm LVPWd: 1.3 cm FS: 33.5 % LVAd ap4: 22.9 cm2 SV(MOD-sp4): 50.3 ml SV(sp4-el): 49.6 ml LVLd ap4: 6.7 cm SI(MOD-sp4): 28.0 ml/m2 EDV(MOD-sp4): 66.3 ml EDV(sp4-el): 66.1 ml LVAs ap4: 10.3 cm2 LVLs ap4: 5.5 cm ESV(MOD-sp4): 16.0 ml ESV(sp4-el): 16.5 ml EF(MOD-sp4): 75.9 % EF(sp4-el): 75.0 % LA A4 area: 15.2 cm2 RA A4 area: 12.3 cm2 Time Measurements MV dec time: 0.23 sec Doppler Measurements & Calculations MV E max guy: 65.5 cm/sec Lat Peak E' Guy: 5.5 cm/sec Med Peak E' Guy: 10.3 cm/sec MV A max guy: 107.5 cm/sec E/E' lat: 11.9 E/E' med: 6.3 MV E/A: 0.61 MV V2 max: 116.6 cm/sec Ao V2 max: 117.6 cm/sec MV max P.4 mmHg MV dec slope: 284.8 cm/sec2 Ao max P.5 mmHg MV V2 mean: 62.8 cm/sec Ao V2 mean: 70.0 cm/sec MV mean P.8 mmHg Ao mean P.5 mmHg MV V2 VTI: 33.0 cm Ao V2 VTI: 24.9 cm AV (velocity ratio): 0.95 LV V1 max: 108.1 cm/sec PA V2 max: 120.9 cm/sec LV V1 max P.7 mmHg PA V2 mean: 97.0 cm/sec LV V1 mean P.0 mmHg LV V1 mean: 64.0 cm/sec LV V1 VTI: 23.8 cm ECHO/Echo Complete W/ Contrast Interpretation Summary Normal LV size. Left ventricular systolic function is normal. The left ventricular ejection fraction is 65 %. Contrast injection was performed. Ordering Physician: Tim Melo Referring Physician: Tim Melo Performed By: Inocencia Villagomez RCS
--- OUTSIDE RECORDS SUMMARY | 2025-05-04 06:40 | XMS RPT_ITS | CCD ---
Author Organization [facility] Care Team Providers Care Market Development Director Name Role Phone MIKE PUENTE Unavailable Unavailable MIKE PUENTE Unavailable Unavailable MIKE PUENTE Unavailable Unavailable MIKE PUENTE Unavailable Unavailable Jesus Davila Unavailable Unavailable Hao TUCKER, Joselo Matias Unavailable Bernardo Gonzales MD Unavailable Mike Puente (Hist) Unavailable Catherine Alford Unavailable Rajiv Jimenez DO, Christine Unavailable Jesus Davila MD Primary Care Provider Natasha Tee RN Unavailable Unavailable Pérez Loya RN Unavailable UnavailDr. Jesus Cordova Primary Care Provider Dr. Jesus Davila Referring Provider Dr. Neymar Valles Attending Provider Catherine Alford MD Unavailable Lorie ALLERGY SPECIALIST, ALLERGY SPECIALIST-C Edward Machuca Attending Provider Mike Puente (Hist) Unavailable Catherine Alford MD Unavailable Rajiv Jimenez DO, Christine Unavailable Jesus Davila MD Primary Care Provider Natasha Tee RN Unavailable Unavailable Pérez Loya RN Unavailable UnavailDr. Jesus Cordova Primary Care Provider Dr. Jesus Davila Referring Provider Carlo ALLERGY SPECIALIST, ALLERGY SPECIALIST-C Gabbie Attending Provider Carlo ALLERGY SPECIALIST, ALLERGY SPECIALIST-C Gabbie Referring Provider Prashanth LOPEZ, Catherine Pinto Unavailable Aletha RN, Catherine Unavailable Dr. Jesus Davila Primary Care Provider Carlo ALLERGY SPECIALIST, ALLERGY SPECIALIST-C Gabbie Attending Provider Carlo ALLERGY SPECIALIST, ALLERGY SPECIALIST-C Gabbie Referring Provider Dr. Jesus Davila Referring Provider LANEY Miller Attending Provider Mike Puente (Hist) Unavailable Catherine Alford MD Unavailable Rajiv Jimenez DO, Christine Unavailable Jesus Davila MD Primary Care Provider Randal RN, Natasha Unavailable Unavailable Aletha RN, Catherine Unavailable Dr. Neymar Valles Attending Provider Pérez RN, Shalini Garcia Unavailable Unavailabl e Aletha RN, Catherine Unavailable Rajiv Jimenez DO, Christine Unavailable Mike Puente Unavailable Dr. Jesus Davila Primary Care Provider Dr. Jesus Davila Referring Provider LANEY Miller Attending Provider Dr. Noah Kraft Attending Provider Dr. Jesus Davila Primary Care Provider Dr. Jesus Davila Referring Provider Dr. Neymar Valles Attending Provider Dr. Noah Kraft Attending Provider Carlo ALLERGY SPECIALIST, ALLERGY SPECIALIST-C Gabbie Attending Provider Randal RN, Natasha Unavailable Unavailable Aletha WHITE, Catherine Unavailable Dr. Jesus Davila Primary Care Provider Dr. Jesus Davila Referring Provider Lorie ALLERGY SPECIALIST, ALLERGY SPECIALIST-C Edward Machuca Attending Provider Catherine Alford MD Unavailable Jesus Davila MD Primary Care Provider JESUS DAVILA Primary Care Unavailable AKILAH ROWE Referring Unavailable AKILAH PENA Referring Unavailable JESUS DAVILA Primary Care Unavailable Dr. Jesus Davila Primary Care Provider Dr. Jesus Davila Referring Provider Dr. Kaley Jiang Attending Provider Gregory PT, Charlotte Unavailable Pérez WHITE, Shalini Garcia Unavailable Unavailabl e Corinna ELEVATOR INSTALLER[employer], Jamee M Unavailable Mike Puente MD Unavailable Dr. Jesus Davila MD Primary Care Provider Dr. Scooter Lim DO Emergency Provider INEZ LANTIGUA Attending Unavailable JESUS DAVILA Primary Care Unavailable JESUS DAVILA Referring Unavailable JESUS DAVILA Primary Care Unavailable AKILAH PENA JR Attending Unavailable JESUS DAVILA Primary Care Unavailable JESUS DAVILA Attending Unavailable JESUS DAVILA Primary Care Unavailable AYUSH MCCALL Attending Unavailab le JESUS DAVILA Primary Care Unavailable ARCENIO, JESUS Machuca Primary Care Unavailable CARLOS TAI Attending Unavailable AKILAH PENA JR Attending Unavailable ARCENIO, JESUS Machuca Primary Care Unavailable ARSLAN UGARTE Attending Unavailable JESUS DAVILA Referring Unavailable DAVILA, TOYIN Primary Care Unavailable DAVILA, TOYIN Referring Unavailable DAVILA, TOYIN Primary Care Unavailable DAVILA, TOYIN Referring Unavailable DAVILA, TOYIN Primary Care Unavailable DAVILA, TOYIN Referring Unavailable DAVILA, TOYIN Primary Care Unavailable DAVILA, TOYIN Attending Unavailable DAVILA, TOYIN Primary Care Unavailable BLAKE EARLY Attending Unavailable DAVILA, TOYIN Primary Care Unavailable MAX BEST Referring Unavailable DAVILA, TOYIN Primary Care Unavailable MAX BEST Attending Unavailable DAVILA, TOYIN Primary Care Unavailable CLYDE BELTRAN Attending Unavailable DAVILA, TOYIN Primary Care Unavailable MAX BEST Attending Unavailable DAVILA, TOYIN Primary Care Unavailable DAVILA, TOYIN Primary Care Unavailable Dr. Scooter Lim DO Attending Provider [phone] Dr. Jesus Davila MD Referring Provider [phone] Lorie ALLERGY SPECIALIST-C, Edward Machuca Attending Provider María Vance Referring Unavailable Rajiv, María Attending Unavailable Davila, Jesus Primary Care Unavailable Davila, Jesus Primary Care Unavailable María Vance Referring Unavailable Rajiv, María Attending Unavailable Davila, Jesus Primary Care Unavailable Ashley Ragsdale Attending Unavailabl e Davila, Jesus Referring Unavailable Davila, Jesus Primary Care Unavailable Lorie GARCIA, Edward Machuca Attending Unavailable Davila, Jesus Referring Unavailable Davila, Jesus Primary Care Unavailable Wilber Izquierdo Attending Unavailable Davila, Jesus Primary Care Unavailable Scooter Lim Attending Unavailable Allergies Allergy Classification Reported Allergen(s) Allergy Type Date of Onset Reaction(s) Facility Adhesive Tape (5 sources) Adhesive Tape Substance Allergy 05-08-20 06 Other: See Comments [facility] HMG-CoA Reductase Inhibitors (statins) (10 sources) rosuvastatin Drug Allergy 05-29-20 12 Intolerance [facility] Work Phone: Insulin Glargine (5 sources) Insulin Glargine Drug Allergy 05-30-20 17 Intolerance [facility] Work Phone: nickel (5 sources) nickel Drug Allergy 05-29-20 12 [facility] Work Phone: NSAIDs (5 sources) Ketorolac Drug Allergy 05-25-20 03 [facility] Work Phone: (20 sources) Adhesive Tape; Translations: [ADHESIVE TAPE (ROSINS)] Propensity to adverse reactions (disorder) 05-08-20 06 Other: See Comments [facility] Repository (1 source) atorvastatin; Translations: [ATORVASTATIN CALCIUM] Drug Allergy [facility] Repository (3 sources) cephalexin; Translations: [CEPHALEXIN] Drug Allergy 07-06-20 21 [facility] Repository (19 sources) cephalexin; Translations: [CEPHALEXIN MONOHYDRATE] Drug Allergy 12-28-19 [facility] Rep[facility] (19 sources) ciprofloxacin; Translations: [CIPROFLOXACIN] Drug Allergy 12-28-19 22 Swelling [facility] Repository (20 sources) insulin glargine; Translations: [INSULIN GLARGINE] Drug Allergy 05-30-20 17 Intolerance [facility] Repository Comment on above: Injection site pain (20 sources) ketorolac; Translations: [KETOROLAC] Drug Allergy 05-25-20 03 [facility] Repository (20 sources) nickel; Translations: [NICKEL] Drug Allergy 05-29-20 12 [facility] Repository (20 sources) pravastatin; Translations: [PRAVASTATIN] Drug Allergy 11-15-19 13 Intolerance [facility] Repository (20 sources) rosuvastatin; Translations: [ROSUVASTATIN CALCIUM] Drug Allergy 05-29-20 12 Intolerance [facility] Repository (20 sources) PALLADIUM; Translations: [PALLADIUM] Propensity to adverse reactions (disorder) 05-26-20 16 [facility] Repository (2 sources) Cephalexin Drug Allergy 07-06-20 21 [facility] Work Phone: (2 sources) Ciprofloxacin Drug Allergy 07-06-20 [facility] Work Phone: (2 sources) Insulin Glargine Drug Allergy 07-06-20 [facility] Work Phone: (2 sources) Ketorolac Drug Allergy 07-06-20 21 [facility] Work Phone: (2 sources) rosuvastatin Drug Allergy 07-06-20 [facility] Work Phone: (18 sources) Adhesive agent; Translations: [adhesive] Allergy to substance 12-28-19 [facility] (17 sources) Ampicillin Drug Allergy 12-28-19 22 Rash [facility] (18 sources) Ketorolac; Translations: [ketorolac tromethamine] Drug Allergy 12-28-19 22 [facility] (18 sources) Jemphvc-Luu-Ylx Reductase Inhibitor; Translations: [Fkyyfvd-Ezk-Ksz Reductase Inhibitor] Propensity to adverse reactions 12-28-19 Other [facility] (13 sources) paladium Allergy to substance 12-28-19 22 [facility] (5 sources) Environmental Allergies: Uncoded; Translations: [Environmental Allergies: Uncoded] Allergy to substance 06-15-20 23 Other [facility] Comment on above: PALLADIUM (1 source) Ampicillin Drug Allergy 04-30-20 25 [facility] Repository Medications Current Medications Medication Drug Class(es) Dates Sig (Normalized) Sig (Original) Administered Medications Medication Order MAR Action Action Date Dose Rate Site tuberculin skin test, unspecified formulation Given 09/22/2021 tuberculin skin test, unspecified formulation Given 09/29/2021 (2 sources) Administered Medications Medication Order MAR Action Action Date Dose Rate Site tuberculin skin test, unspecified formulation Given 09/22/2021 tuberculin skin test, unspecified formulation Given 09/29/2021 BIPAP (20 sources) BIPAP Active BIPAP clindamycin 150 mg oral capsule (20 sources) Lincosamide Antibacterial Start: 10-04-2022 Clindamycin Hcl 150 mg capsule Active 150 mg PO .COMPLEX October 04, 2022 1:00am 150 mg orally take 4 caps by mouth 30-60 minutes prior to dental visit; Start: 02-10-2021 End: 03-01-2022 take 4 capsules by mouth every hour Clindamycin Hcl 150 mg capsule Discontinued 150 mg PO .COMPLEX February 10, 2021 12:00am March 01, 2022 2:25pm 150 mg PO take 4 capsules 1HR prior dentl procedure; colchicine 0.6 mg oral tablet (20 sources) Start: 04-09-2023 End: 10-25-2023 take 1 tablet by mouth once daily as needed Colchicine 0.6 mg tablet Active 0.6 mg PO DAILY as needed for gout October 25, 2023 2:18pm Start: 01-31-2023 End: 06-09-2024 colchicine 0.6 mg tablet Ind ications: Acute gout involving toe of right foot, unspecified cause Take 2 tabs by mouth, followed by 1 tab one hour later for gout flare. May repeat in 1 week. 6 tablet 1 06/09/2024 Active Start: 10-24-2022 colchicine 0.6 mg tablet Indications: Acute gout involving toe of right foot, unspecified cause Take 2 tabs by mouth, followed by 1 tab one hour later for gout flare. May repeat in 1 week. 6 tablet 1 10/24/2022 Active Comment on above: Take 2 tabs by mouth , followed by 1 tab one hour later for gout flare. May repeat in 1 week. COMPOUNDED PRESCRIPTION (20 sources) Start: 06-16-2013 COMPOUNDED PRESCRIPTION Initiate BiPAP @ 15/9 cm of water with humidification. Mask (per patient preference) optional chin strap (if indicated) , filters, tubing, humidifier and lifetime supplies. Dx. ABDI 327.23 1 Device 0 06/16/2013 Suspended Start: 06-16-2013 COMPOUNDED PRE SCRIPTION Initiate BiPAP @ 15/9 cm of water with humidification. Mask (per patient preference) optional chin strap (if indicated) , filters, tubing, humidifier and lifetime supplies. Dx. ABDI 327.23 1 Device 0 06/16/2013 Active Comment on above: Initiate BiPAP @ 15/ 9 cm of water with humidification. Mask (per patient preference) optional chin strap (if indicated) , filters, tubing, humidifier and lifetime supplies. Dx. ABDI 327.23 cycloSPORINE (RESTASIS) 0.05 % ophthalmic emulsion (20 sources) Start: 025 take 1 drop(s) into the eye(s) twice daily cycloSPORINE (RESTASIS) 0.05 % ophthalmic emulsion Use 1 Drop in both eyes two times a day. 09/11/2024 Active diphenhydrAMINE hydrochloride 25 mg oral tablet (17 sources) Histamine-1 Receptor Antagonist Start: take 1 tablet by mouth once daily as needed Diphenhydramine Hcl (Benadryl Allergy) 25 mg tablet Active 25 mg PO DAILY as needed for Itching June 04, 2020 12:00am doxycycline monohydrate 100 mg oral tablet (20 sources) Tetracycline-class Drug Start: End: take 1 tablet by mouth twice daily doxycycline monohydrate 100 mg tablet Take 1 tablet by mouth two times a day for 7 days. 14 tablet 10/29/2024 11/05/2024 Active Start: 04-03-2024 End: 04-10-2024 take 1 tablet by mouth twice daily doxycycline (VIBRA-TABS) 100 mg tablet Indications: Rhinosinusitis Take 1 tablet by mouth two times a day for 7 days. 14 tablet 0 04/03/2024 04/10/2024 Active Start: 01-28-2023 End: 02-07-2023 take 1 capsule by mouth twice daily Doxycycline Hyclate 100 mg capsule Discontinued 100 mg PO TWICE A DAY 20 10 January 28, 2023 12:00am February 06, 2023 12:00am February 07, 2023 12:04am Start: 10-23-2020 End: 12-28-2020 take 1 capsule by mouth twice daily Doxycycline Monohydrate 100 MG capsule Discontinued 100 mg PO TWICE A DAY 8 0 October 23, 2020 1:00am December 28, 2020 3:13pm DULoxetine 60 mg delayed release oral capsule (20 sources) Serotonin and Norepinephrine Reuptake Inhibitor Start: 08-26-2021 End: 04-08-2025 take 1 capsule by mouth once daily DULoxetine DR (CYMBALTA) 60 mg capsule Indications: Myalgia , Depression, recurrent Take 1 capsule by mouth once daily. 90 capsule 1 04/08/2025 Active Start: 02-23-2020 End: 08-26-2021 take 3 capsules by mouth once daily Duloxetine 20 MG capsule Discontinued 60 mg PO DAILY February 23, 2020 12:00am August 26, 2021 3:48pm mental health Start: 02-23-2020 End: 08-26-2021 take 60 mg by mouth once daily Duloxetine Discontinued 60 MG PO DAILY February 23, 2020 12:00am August 26, 2021 3:48pm Comment on above: Take 1 capsule by [facility] once daily. fluticasone propionate 0.05 mg/actuat metered dose nasal spray (20 sources) Corticosteroid Start: 07-23-2019 Fluticasone Propionate (Flonase Allergy Relief) 50 mcg/actuation spray,suspension Active 2 NMA INTRANASAL DAILY as needed for Allergies July 23, 2019 1:00am Start: 07-23-2019 Fluticasone Pr opionate (Flonase Allergy Relief) 50 mcg/actuation spray,suspension Active 2 SPRAY INTRANASAL DAILY July 23, 2019 1:00am Start: 09-13-2015 take 2 spray(s) nasa l route once daily fluticasone (FLONASE) 50 mcg/actuation nasal spray Indications: Eustachian tube dysfunction, bilateral Use 2 Sprays in each nostril once daily. 1 Bottle 11 09/13/2015 Active Start: 09-13-2015 fluticasone (F LONASE) 50 mcg/actuation nasal spray Indications: Eustachian tube dysfunction, bilateral [The details of the medication are not available because there are pending changes by a home health clinician.] 1 Bottle 11 09/13/2015 Active Comment on above: Use 2 Sprays in each nostril once daily. furosemide 40 mg oral tablet (20 sources) Loop Diuretic Start: 04-08-2025 take 1 tablet by mouth once furosemide (LASIX) 40 mg tablet Indications: Edema, unspecified type Take 1 tablet by mouth once daily. Per Dr. Lilian Vance, nephrology. 04/08/2025 Active Start: 08-23-2023 End: 04-08-2025 furosemide (LASIX) 40 mg tab let Indications: Edema, unspecified type Take 20 mg by mouth once daily. Per Dr. Lilian Vance, nephrology. 08/23/2023 04/08/2025 Discontinued Start: 08-24-2022 End: 01-15-2024 take 1 tablet by mouth once daily as needed Furosemide 40 mg tablet Discontinued 40 mg PO DAILY as needed October 25, 2023 2:20pm January 15, 2024 9:48pm Start: 03-01-2022 End: 10-25-2023 take 1 tablet by mouth three times daily Furosemide 40 mg tablet Discontinued 40 mg PO THREE TIMES A DAY March 01, 2022 2:19pm October 25, 2023 2:23pm Start: 12-27-2021 End: 03-01-2022 take 1 tablet by mouth twice daily Furosemide 40 mg tablet Discontinued 40 mg PO TWICE A DAY December 27, 2021 12:00am March 01, 2022 2:25pm Start: 09-05-2021 End: 12-27-2021 take 1 tablet by mouth three times daily Furosemide 20 mg tablet Discontinued 20 mg PO THREE TIMES A DAY 270 90 3 September 23, 2021 4:04pm December 27, 2021 2:20pm Swelling Start: 08-26-2021 End: 08-24-2022 Furosemide 20 mg tablet Disc ontinued 40 mg PO .COMPLEX August 26, 2021 4:14pm September 05, 2021 3:14pm Swelling 40 mg PO; Start: 12-28-2020 End: 08-26-2021 take 2 tablets by mouth twice daily Furosemide 20 mg tablet Discontinued 40 mg PO TWICE A DAY February 10, 2021 11:53am August 26, 2021 4:15pm Swelling Start: 12-28-2020 End: 09-05-2021 Furosemide Discontinued 40 M G PO .COMPLEX August 26, 2021 4:14pm September 05, 2021 3:14pm 40 mg PO; Start: 12-28-2020 End: 12-28-2020 take 1 tablet by mouth once daily Furosemide 20 mg tablet Discontinued 20 mg PO DAILY December 28, 2020 3:12pm December 28, 2020 3:54pm Swelling Start: 06-04-2020 End: 12-28-2020 take 1 tablet by mouth twice daily as needed Furosemide 20 mg tablet Discontinued 20 mg PO TWICE A DAY as needed for Swelling June 04, 2020 2:06pm December 28, 2020 3:14pm Start: 07-04-2019 End: 06-04-2020 take 1 tablet by mouth once daily as needed for edema Furosemide 20 MG tablet Discontinued 20 mg PO DAILY NEEDED as needed for edema July 04, 2019 12:00am June 04, 2020 2:12pm Start: 09-14-2014 End: 09-17-2014 take 1 tablet by mouth at bedtime Furosemide 20 MG tablet Discontinued 20 mg PO AT BEDTIME September 14, 2014 1:00am September 17, 2014 1:01pm Start: 08-22-2014 End: 08-27-2014 take 20 mg by mouth at lunch Furosemide Discontinued 2 0 MG PO WITH LUNCH August 22, 2014 11:35pm August 27, 2014 11:30am Start: 08-22-2014 End: 08-27-2014 take 1 tablet by mouth at lunch Furosemide 20 MG table t Discontinued 20 mg PO WITH LUNCH August 22, 2014 1:00am August 27, 2014 11:30am Comment on above: Lasix 40 mg daily in the morning and 20 mg daily in the evening Take 1 tablet by marques th three times daily. Per Dr. Lilian Vance, nephrology. Take 1 tablet by marques th once daily. Per Dr. Lilian Vance, nephrology. glucagon 3 mg nasal powder (20 sources) Antihypoglycemic Agent Start: 02-22-2023 End: 11-20-2024 glucagon 3 mg/actuation nasal spray (BAQSIMI) Indications: Hypoglycemia , Type 2 diabetes mellitus with diabetic neuropathy, with long-term current use of insulin (HCC) Use 1 [place] in the nose as needed for low blood sugar. May repeat after 15 minutes using a new device if there is no response. 2 Each 2 11/20/2024 Active Comment on above: Use 1 [place] in the n ose as needed for low blood sugar. May repeat after 15 minutes using a new device if there is no response. 3 ml insulin aspart, human 100 unt/ml pen injector (20 sources) Insulin Analog Start: 10-25-2023 Insulin Aspart U-100 100 unit/mL (3 mL) insulin pen Active 17 U SC THREE TIMES A DAY October 25, 2023 2:22pm diabetes SLIDING SCALE Breakfast 7u = sliding scale lunch 5u + sliding scale Dinner 7u + sliding scale Snack 5u + sliding scale Please contact the information source for Protocol details. Start: 01-16-2023 End: 04-03-2026 insulin aspart U-100 (NOVOLO G FLEXPEN U-100 INSULIN) 100 unit/mL (3 mL) pen Indications: Type 2 diabetes mellitus with stage 3a chronic kidney disease, with long-term current use of insulin (HCC) Inject 14 Units subcutaneously three times a day before meals. 14 in AM, 14 at lunch, 14 at supper, 10 at bed, plus extra based on sugars, max daily dose 100 units plus sliding scale 37.8 mL 3 04/08/2025 04/03/2026 Active Start: 10-04-2022 End: 10-25-2023 Insulin Aspart U-100 100 uni t/mL (3 mL) insulin pen Discontinued 14 U SC THREE TIMES A DAY October 04, 2022 3:09pm October 25, 2023 2:23pm diabetes SLIDING SCALE Breakfast 7u = sliding scale lunch 5u + sliding scale Dinner 7u + sliding scale Snack 5u + sliding scale Please contact the information source for Protocol details. Start: 09-08-2021 End: 01-09-2023 insulin aspart U-100 (NOVOLO G FLEXPEN U-100 INSULIN) 100 unit/mL (3 mL) Indications: Type 2 diabetes mellitus with stage 3b chronic kidney disease, with long-term current use of insulin (HCC) 17 in AM, 13 at lunch, 19 at supper, 10 at bed, plus extra based on sugars, max daily dose 100 units 30 Pen 3 09/08/2021 01/09/2023 Discontinued Start: 04-05-2018 End: 06-04-2020 Insulin Aspart U-100 100 UNI TS/ML insulin pen Discontinued 6 U SC WITH DINNER April 05, 2018 12:00am June 04, 2020 2:12pm Start: 04-05-2018 End: 06-04-2020 Insulin Aspart U-100 100 UNI TS/ML insulin pen Discontinued 4 U SC AT BEDTIME July 04, 2019 12:00am June 04, 2020 2:12pm Start: 04-05-2018 End: 12-27-2021 Insulin Aspart U-100 100 UNI TS/ML insulin pen Discontinued 0 U SC 4 TIMES DAILY April 05, 2018 12:00am December 27, 2021 2:33pm diabetes SLIDING SCALE Breakfast 7u = sliding scale lunch 5u + sliding scale Dinner 7u + sliding scale Snack 5u + sliding scale Please contact the information source for Protocol details. Start: 04-05-2018 End: 10-04-2022 Insulin Aspart U-100 100 uni t/mL (3 mL) insulin pen Discontinued 0 U SC 4 TIMES DAILY December 27, 2021 2:30pm October 04, 2022 3:10pm diabetes SLIDING SCALE Breakfast 7u = sliding scale lunch 5u + sliding scale Dinner 7u + sliding scale Snack 5u + sliding scale Please contact the information source for Protocol details. Start: 04-05-2018 End: 06-04-2020 Insulin Aspart U-100 Discont inued 6 UNITS SC WITH DINNER April 05, 2018 12:00am June 04, 2020 2:12pm Start: 04-05-2018 End: 06-04-2020 Insulin Aspart U-100 Discont inued 4 UNITS SC AT BEDTIME July 04, 2019 12:00am June 04, 2020 2:12pm Comment on above: 17 in AM, 13 at lunc h, 19 at supper, 10 at bed, plus extra based on sugars, max daily dose 100 units 14 in AM, 14 at lunc h, 14 at supper, 10 at bed, plus extra based on sugars, max daily dose 100 units plus sliding scale 1.5 ml insulin glargine 300 unt/ml pen injector (20 sources) Insulin Analog Start: 08-25-2024 insulin glargine U-300 conc (TOUJEO SOLOSTAR U-300 INSULIN) 300 unit/mL (1.5 mL) Indications: Type 2 diabetes mellitus with stage 3b chronic kidney disease, with long-term current use of insulin (HCC) take 24 units twice a day, max daily dose 60 units 4 Each 08/25/2024 Active Start: 12-02-2023 End: 08-25-2024 insulin glargine U-300 conc (TOUJEO SOLOSTAR U-300 INSULIN) 300 unit/mL (1.5 mL) [The details of the medication are not available because there are pending changes by a home health clinician.] 4 Each 12/02/2023 08/25/2024 Discontinued Start: 12-02-2023 insulin glargi ne U-300 conc (TOUJEO SOLOSTAR U-300 INSULIN) 300 unit/mL (1.5 mL) take 24 units twice a day, max daily dose 60 units 4 Each 12/02/2023 Active Comment on above: take 24 units twice a day, max daily dose 60 units ketoconazole 20 mg/ml medicated shampoo (3 sources) Azole Antifungal Start: 10-25-2023 Ketoconazole 2 % shampoo Active TOPICAL October 25, 2023 1:00am Start: 10-25-2023 Ketoconazole A ctive TOPICAL October 25, 2023 1:00am levothyroxine sodium 0.175 mg oral tablet (20 sources) l-Thyroxine Start: 06-06-2023 End: 06-09-2024 levothyroxine (SYNTHROID) 175 mcg tablet [The details of the medication are not available because there are pending changes by a home health clinician.] 100 tablet 3 06/06/2023 06/09/2024 Discontinued Start: 06-06-2023 levothyroxine (SYNTHROID) 175 mcg tablet 7 & 1/2 pills per week (one a day with extra half pill on Sunday) 100 tablet 3 06/06/2023 Active Start: 12-27-2021 End: 10-25-2023 take 1 tablet by mouth once daily levothyroxine (SYNTHROID) 175 mcg tablet Take 1 tablet by mouth once daily. 90 tablet 3 06/10/2024 Active Start: 09-08-2021 End: 06-04-2023 levothyroxine (SYNTHROID) 17 5 mcg tablet 7 & 1/2 pills per week (one a day with extra half pill on Sunday) 100 tablet 3 03/08/2022 06/04/2023 Discontinued Start: 10-25-2018 End: 12-27-2021 take 1 tablet by mouth once daily Levothyroxine 150 mcg tablet Discontinued 150 ug PO .COMPLEX June 04, 2020 2:07pm December 27, 2021 2:28pm thyroid 150 mcg 1 tab per day Sunday- Sunday. 1.5 on sunday. take 1 capsule by mo ut once daily LEVOTHYROXINE SODIUM 175 MCG CAPS 1 capsule by mouth once a day levothyroxine [id number] Tracy Theodore AT Comment on above: 7 & 1/2 pills per we ek (one a day with extra half pill on Sunday) memantine hydrochloride 10 mg oral tablet (20 sources) K-gucmlc-S-aspartat e Receptor Antagonist Start: 3 End: 6 take 1 tablet by mouth twice daily memantine (NAMENDA) 10 mg tablet Indications: Dementia without behavioral disturbance, psychotic disturbance, mood disturbance, or anxiety, unspecified dementia severity, unspecified dementia type (HCC) Take 1 tablet by mouth two times a day. 180 tablet 3 02/23/2025 02/23/2026 Active Start: 12-27-2021 take 2 tablets by mo uth twice daily Memantine 5 mg tablet Active 10 mg PO TWICE A DAY December 27, 2021 12:00am Start: 12-27-2021 take 10 mg by mouth twice kandace y Memantine Active 10 MG PO TWICE A DAY December 27, 2021 12:00am Start: 09-06-2021 End: 12-22-2022 take 1 tablet by mouth twice daily memantine (NAMENDA) 5 mg tablet Take 1 tablet by mouth twice daily. 60 tablet 2 05/05/2022 07/25/2022 Discontinued Comment on above: Take 1 tablet by marques twice daily. [facility] Jnhopdlsbnzh-Blu-Ahpk-F a-Vit K (15 sources) Start: 06-06-2019 Faqdshuvlbul-Taj-Fjhj-Fa -Vit K Active 1 EACH PO DAILY June 06, 2019 9:24pm Start: 06-06-2019 Multivitamin-M sq-Pfhv-Xk-Vit K Active 1 EACH PO DAILY June 05, 2019 11:00pm Start: 06-06-2019 Multivitamin-M if-Hwcz-Jh-Vit K Active 1 EACH PO DAILY June 06, 2019 12:00am nitroglycerin 0.4 mg sublingual tablet (20 sources) Nitrate Vasodilator Start: 09-05-2021 End: 01-07-2024 nitroglycerin sublingual (NITROQUICK) 0.4 mg SL tablet Dissolve 1 tablet under the tongue as needed. FOR CHEST PAIN. IF NO RELIEF CALL 911 25 tablet 01/08/2024 Active Start: 06-04-2020 Nitroglycerin 0.4 mg tablet, sublingual Active 0.4 mg SL every 5 to 15 minutes as needed for Pain Score 1-10/10 June 04, 2020 12:00am do not exceed 3 doses per episode Start: 06-04-2020 Nitroglycerin Active 0.4 MG SL every 5 to 15 minutes June 04, 2020 12:00am do not exceed 3 doses per episode NITROGLYCERIN 0. 4 MG SUBL 1 tablet under tongue once a day as needed nitroglycerin [id number] Tracy Theodore AT Comment on above: Dissolve 1 tablet un jovanni the tongue as needed. FOR CHEST PAIN. IF NO RELIEF CALL 911 polyethylene glycol 3350 23777 mg powder for oral solution (20 sources) Osmotic Laxative Start: 06-04-2020 End: 04-30-2025 Polyethylene Glycol 3350 (Miralax) 17 gram/dose powder Active 17 g PO DAILY January 15, 2024 12:00am Start: 11-14-2007 End: 07-21-2019 take 17 g by mouth once daily Polyethylene Glycol 3350 510 GM powder Discontinued 17 g PO DAILY October 25, 2018 1:00am July 21, 2019 9:44pm Comment on above: 17 grams/8 0z water daily Completed/Discontinued Medications Medication Drug Class(es) Dates Sig (Normalized) Sig (Original) acetaminophen 500 mg oral tablet (20 sources) Start: 01-24-2024 End: 02-23-2024 take 2 tablets by mouth every eight hours acetaminophen (TYLENOL) 500 mg tablet Take 2 tablets by mouth every 8 hours. 180 tablet 0 01/24/2024 02/23/2024 TYLENOL 325 MG T ABS 2 tablets as needed acetaminophen [id number] [facility] acetaminophen 325 mg / HYDROcodone bitartrate 5 mg oral tablet (20 sources) Opioid Agonist Start: 12-23-2021 End: 03-02-2022 take 1 tablet by mouth twice daily as needed for pain HYDROcodone-acetaminophen (NORCO) 5-325 mg per tablet Indications: Osteoarthritis of knee, unspecified laterality, unspecified osteoarthritis type , Primary osteoarthritis of both hips Take 1 tablet by mouth twice daily as needed for pain. 60 tablet 0 02/01/2022 03/02/2022 Discontinued (Discontinued by another Health Care Provider) Start: 08-26-2021 End: 04-27-2022 Hydrocodone-Acetaminophen 10 -325 mg tablet Discontinued 1 {tbl} PO TWICE A DAY as needed for Pain Score 1-August 26, 2021 3:50pm April 27, 2022 11:20am Start: 08-26-2021 End: 04-27-2022 take 1 tablet by mouth twice daily Hydrocodone-Acetaminophen Discontinued 1 TABLET PO TWICE A DAY August 26, 2021 3:50pm April 27, 2022 11:20am Start: 10-25-2018 End: 08-26-2021 Hydrocodone-Acetaminophen 10 MG-325MG tablet Discontinued 1 {tbl} PO 4 TIMES DAILY as needed for Pain Score -October 25, 2018 1:00am August 26, 2021 3:53pm Start: 10-25-2018 End: 08-26-2021 take 1 tablet by mouth four times daily Hydrocodone-Acetaminophen Discontinued 1 TABLET PO 4 TIMES DAILY October 25, 2018 1:00am August 26, 2021 3:53pm HYDROCODONE-ACET AMINOPHEN 5-325 MG TABS one tablet as needed hydrocodone-acetaminophen [id number] [facility] Comment on above: Take 1 tablet by marques th twice daily as needed for pain for up to 30 days. Take 1 tablet by marques th twice daily as needed for pain. acetaminophen 325 mg / oxyCODONE hydrochloride 5 mg oral tablet (20 sources) Opioid Agonist Start: 02-24-2020 End: 02-27-2020 Oxycodone-Acetaminophen 1 TABLET tablet Discontinued 1 {tbl} PO EVERY 6 HOURS NEEDED as needed for Pain 12 3 0 February 24, 2020 February 26, 2020 12:00am February 27, 2020 12:02am Abdominal pain Unspecified abdominal pain Start: 02-24-2020 End: 02-27-2020 take 1 tablet by mouth every six hours as needed Oxycodone-Acetaminophen Discontinued 1 TABLET PO EVERY 6 HOURS NEEDED 12 3 February 24, 2020 February 27, 2020 12:02am Start: 08-22-2014 End: 08-27-2014 Oxycodone-Acetaminophen 1 TA BLET tablet Discontinued 1 {tbl} PO EVERY 4 HOURS NEEDED as needed for PAIN 30 0 August 27, 2014 1:00am August 27, 2014 11:31am Start: 08-22-2014 End: 08-27-2014 take 1 tablet by mouth every four hours as needed Oxycodone-Acetaminophen Discontinued 1 TABLET PO EVERY 4 HOURS NEEDED August 27, 2014 1:00am August 27, 2014 11:31am allopurinol 100 mg oral tablet (20 sources) Xanthine Oxidase Inhibitor Start: 04-09-2023 End: 10-25-2023 take 3 tablets by mouth once daily Allopurinol 100 mg tablet Discontinued 300 mg PO DAILY April 09, 2023 3:08pm October 25, 2023 2:17pm Start: 04-09-2023 End: 10-25-2023 take 300 mg by mouth once daily Allopurinol Discontinu ed 300 MG PO DAILY April 09, 2023 3:08pm October 25, 2023 2:17pm Start: 01-28-2023 End: 04-08-2025 take 1 tablet by mouth once daily Allopurinol 300 mg tablet Active 300 mg PO DAILY October 25, 2023 1:00am Start: 11-21-2022 End: 04-09-2023 take 1 tablet by mouth twice daily Allopurinol 100 mg tablet Discontinued 100 mg PO TWICE A DAY November 21, 2022 12:00am April 09, 2023 3:11pm Start: 10-24-2022 take 2 tablets by [facility] once daily allopurinol (ZYLOPRIM) 100 mg tablet Indications: Acute gout involving toe of right foot, unspecified cause Take 2 tablets by mouth once daily. For gout. 60 tablet 5 10/24/2022 Active Comment on above: Take 2 tablets by mo [facility] once daily. For gout. Take 1 tablet by [facility] once daily. For gout. amitriptyline hydrochloride 25 mg oral tablet (17 sources) Tricyclic Antidepressant Start: 09-24-19 End: 12-29-19 21 take 1 tablet by mouth at bedtime Amitriptyline Hcl 25 MG tablet Discontinued 25 mg PO AT BEDTIME September 24, 2020 1:00am December 28, 2020 3:14pm ASA LOW DOSE 81MG TAB EC (20 sources) Start: 03-02-20 03 End: 01-24-20 24 ASA LOW DOSE 81MG TAB EC Take one(1) tablet daily. 30 0 03/02/2003 01/24/2024 Discontinued Start: 03-02-2003 ASA LOW DOSE 8 1MG TAB EC Take one(1) tablet daily. 30 0 03/02/2003 Suspended Start: 03-02-2003 ASA LOW DOSE 8 1MG TAB EC Take one(1) tablet daily. 30 0 03/02/2003 Active Comment on above: Take one(1) tablet d aily. ascorbic acid 500 mg oral tablet (20 sources) Vitamin C Start: End: 5 take 1 tablet by mouth once daily ascorbic acid, vitamin C, (VITAMIN C) 500 mg tablet Take 1 tablet by mouth once daily for 21 days. 21 tablet 01/24/2024 10/28/2024 Discontinued aspirin 81 mg delayed release oral tablet (20 sources) Platelet Aggregation Inhibitor, Nonsteroidal Anti-inflammatory Drug Start: End: take 1 tablet by mouth twice daily aspirin, enteric coated (ASPIRIN, ENTERIC COATED) 81 mg EC tablet Take 1 tablet by mouth two times a day. 60 tablet 01/24/2024 12/30/2024 Discontinued Start: 08-26-2021 take 1 tablet by marques th once daily Aspirin 81 mg tablet,chewable Active 81 mg PO DAILY August 26, 2021 3:44pm Start: 10-23-2020 End: 08-26-2021 take 1 tablet by mouth twice daily at mealtime Aspirin 81 MG tablet,chewable Discontinued 81 mg PO TWICE DAILY WITH MEALS 0 October 23, 2020 1:00am August 26, 2021 3:53pm take for 28 days Start: 08-22-2014 End: 10-23-2020 take 1 tablet by mouth once daily Aspirin 81 MG tablet,chewable Discontinued 81 mg PO DAILY@0800 August 22, 2014 1:00am October 23, 2020 11:45am heart aspirin 81 mg ca psule one a day aspirin [facility] ORLIN ASPIRIN 32 5 MG TABS one a day aspirin [id number] [facility] azithromycin 250 mg oral tablet (4 sources) Macrolide Antimicrobial Start: 01-28-2023 End: 04-09-2023 Azithromycin (Zithromax Z-Devin) 250 mg tablet Discontinued 0 PO .COMPLEX 6 0 January 28, 2023 12:00am April 09, 2023 3:24pm For 250 mg dose pack: take 500 mg today (day 1), then 250 mg for 4 days (days 2-5) PO bisacodyl 5 mg delayed release oral tablet (8 sources) Stimulant Laxative Start: 01-25-2024 End: 02-01-2024 bisacodyl EC (DULCOLAX) 5 mg EC tablet [The details of the medication are not available because there are pending changes by a home health clinician.] 14 tablet 0 01/25/2024 01/29/2024 Discontinued (Course of therapy completed) Start: 01-25-2024 End: 02-01-2024 take 2 tablets by mouth once daily bisacodyl EC (DULCOLAX) 5 mg EC tablet Take 2 tablets by mouth once daily for 7 days. 14 tablet 0 01/25/2024 02/01/2024 Active Blood-Glucose Meter,Continuous (DEXCOM G7 PACK PRESS OPERATOR) misc (15 sources) Start: 11-18-2022 Blood-Glucose Meter,Continuous (DEXCOM G7 PACK PRESS OPERATOR) misc use to check sugars 1 Each 0 11/18/2022 Active Comment on above: use to check sugars Blood-Glucose Sensor (DEXCOM G6 SENSOR) claudia (20 sources) Start: 03-23-2022 End: 11-18-2022 Blood-Glucose Sensor (DEXCOM G6 SENSOR) claudia change every 10 days 3 Each 11 03/23/2022 11/18/2022 Discontinued Start: 03-23-2022 Blood-Glucose Sensor (DEXCOM G6 SENSOR) claudia change every 10 days 3 Each 03/23/2022 Active Comment on above: change every 10 days Blood-Glucose Sensor (DEXCOM G7 SENSOR) claudia (20 sources) Start: 11-18-2022 End: 05-09-2023 Blood-Glucose Sensor (DEXCOM G7 SENSOR) claudia change every 10 days 3 Each 11/18/2022 05/09/2023 Discontinued Start: 11-18-2022 Blood-Glucose Sensor (DEXCOM G7 SENSOR) claudia change every 10 days 3 Each 11/18/2022 Active Comment on above: change every 10 days Blood-Glucose Transmitter (DEXCOM G6 TRANSMITTER) claudia (20 sources) Start: 03-23-2022 End: 07-25-2024 Blood-Glucose Transmitter (DEXCOM G6 TRANSMITTER) claudia change every 3 weeks 1 Each 3 03/23/2022 07/25/2024 Discontinued Start: 03-23-2022 Blood-Glucose Transmitter (DEXCOM G6 TRANSMITTER) claudia change every 3 weeks 1 Each 3 03/23/2022 Suspended Start: 03-23-2022 Blood-Glucose Transmitter (DEXCOM G6 TRANSMITTER) claudia change every 3 weeks 1 Each 3 03/23/2022 Active Comment on above: change every 3 weeks calcium carbonate 1250 mg / cholecalciferol 200 unt oral tablet (17 sources) Vitamin D Start: 4 End: 5 take 1 tablet by mouth twice daily Calcium Carbonate-Vitamin D3 (Oyster Shell Calcium-Vit D3) 1 TABLET tablet Discontinued 1 {tbl} PO TWICE A DAY August 22, 2014 1:00am September 17, 2014 1:02pm Calcium Citrate (20 sources) Start: 4 End: calcium citrate (CITRACAL ORAL) Take 2 tablets by mouth two times a day. NOT TAKING Patient should start on January 26, 2024. 01/26/2024 01/29/2024 Discontinued (Discontinued by Patient) Start: 01-26-2024 End: 01-29-2024 calcium citrate (CITRACAL OR AL) Take 2 tablets by mouth two times a day. NOT TAKING Patient should start on January 26, 2024. 0 01/26/2024 01/29/2024 Discontinued (Discontinued by Patient) Start: 01-26-2024 calcium citrat e (CITRACAL ORAL) Take 2 tablets by mouth two times a day. NOT TAKING Patient should start on January 26, 2024. 0 01/26/2024 Active take 2 tablets by mo uth twice daily calcium citrate (CITRACAL ORAL) Take 2 tablets by mouth twice daily. 0 Suspended take 2 tablets by mo uth twice daily calcium citrate (CITRACAL ORAL) Take 2 tablets by mouth twice daily. 0 Active Comment on above: Take 2 tablets by mo uth twice daily. calcium citrate 1500 mg / cholecalciferol 250 unt oral tablet (17 sources) Vitamin D Start: 07-04-2019 End: 04-30-2025 Calcium Citrate-Vitamin D3 1 EACH tablet Discontinued 2 NMA PO TWICE A DAY July 04, 2019 12:00am April 30, 2025 3:45pm vitamin Start: 07-04-2019 Calcium Citrat e-Vitamin D3 Active 2 EACH PO TWICE A DAY July 04, 2019 12:00am cholecalciferol 0.05 mg oral tablet (17 sources) Vitamin D Start: 08-22-2014 End: 09-17-2014 take 1 tablet by mouth once daily Cholecalciferol (Vitamin D3) (Vitamin D3) 1,000 UNIT tablet Discontinued 1000 U PO DAILY August 22, 2014 1:00am September 17, 2014 1:01pm ciprofloxacin 500 mg oral tablet (17 sources) Quinolone Antimicrobial Start: 08-27-2014 End: 08-27-2014 take 1 tablet by mouth twice daily Ciprofloxacin Hcl 500 MG tablet Discontinued 500 mg PO TWICE A DAY 21 0 August 27, 2014 1:00am August 27, 2014 11:31am CPAP (20 sources) Start: 02-11-2021 End: 10-28-2024 CPAP Indications: ABDI on CPAP Auto bilevel with humidity set as follows: IPAP max 24, EPAP min 8 and PS 4-6 cmH2O. Comfort settings TiMax 2.0, TiMin 0.3, Trigger -M, Cycle-M. Continue using ResMed N20 nasal mask interface. 1 Device 02/11/2021 10/28/2024 Discontinued (Patient chooses alternative therapy) Start: 02-11-2021 CPAP Indicatio ns: ABDI on CPAP Auto bilevel with humidity set as follows: IPAP max 24, EPAP min 8 and PS 4-6 cmH2O. Comfort settings TiMax 2.0, TiMin 0.3, Trigger -M, Cycle-M. Continue using ResMed N20 nasal mask interface. 1 Device 02/11/2021 Suspended Start: 02-11-2021 CPAP Indicatio ns: ABDI on CPAP Auto bilevel with humidity set as follows: IPAP max 24, EPAP min 8 and PS 4-6 cmH2O. Comfort settings TiMax 2.0, TiMin 0.3, Trigger -M, Cycle-M. Continue using ResMed N20 nasal mask interface. 1 Device 02/11/2021 Active Comment on above: Auto bilevel with hu midity set as follows: IPAP max 24, EPAP min 8 and PS 4-6 cmH2O. Comfort settings TiMax 2.0, TiMin 0.3, Trigger -M, Cycle-M. Continue using ResMed N20 nasal mask interface. diclofenac sodium 0.01 mg/mg topical gel (20 sources) Nonsteroidal Anti-inflammatory Drug Start: 09-05-20 End: 01-24-20 apply 4 g topically four times daily diclofenac (VOLTAREN) 1 % topical gel Apply 4 g to affected area four times daily. 480 g 11 09/05/2021 09/26/2022 Discontinued Start: 08-26-2021 Diclofenac Sod ium (Arthritis Pain (Diclofenac)) 1 % gel Active 2 g TOPICAL 4 TIMES DAILY as needed for Pain August 26, 2021 3:47pm apply to single elbow, wrist or hand; for hand includes palm/fingers/back of hand Start: 02-10-2021 End: 08-26-2021 Diclofenac Sodium (Arthritis Pain (Diclofenac)) 1 % gel Discontinued 2 g TOPICAL ONCE as needed February 10, 2021 12:00am August 26, 2021 3:53pm apply to single elbow, wrist or hand; for hand includes palm/fingers/back of hand Start: 02-10-2021 End: 08-26-2021 Diclofenac Sodium (Arthritis Pain (Diclofenac)) 1 % gel Discontinued 2 GM TOPICAL ONCE February 10, 2021 12:00am August 26, 2021 3:53pm apply to single elbow, wrist or hand; for hand includes palm/fingers/back of hand Comment on above: Apply 4 g to affecte d area four times daily. docusate sodium 100 mg oral capsule (20 sources) Start: 06-06-2019 End: 01-15-2024 take 1 capsule by mouth once daily Docusate Sodium 100 MG capsule Discontinued 100 mg PO DAILY June 06, 2019 12:00am January 15, 2024 9:46pm stool softener End: 01-24-2024 docusate sodium (COLACE ORAL ) Take by mouth. 01/24/2024 Discontinued docusate sodium (COLACE ORAL) Take by mouth. 0 Suspended docusate sodium (COLACE ORAL) Take by mouth. 0 Active Comment on above: Take by mouth. donepezil hydrochloride 10 mg oral tablet (20 sources) Start: 11-28-2023 End: 05-26-2024 take 1 tablet by mouth once daily at bedtime donepezil (ARICEPT) 10 mg tablet Take 1 tablet by mouth daily at bedtime. 90 tablet 1 11/28/2023 01/24/2024 Discontinued Start: 10-08-2023 End: 04-05-2024 take 1 tablet by mouth once daily Donepezil 5 mg tablet Discontinued 5 mg PO DAILY October 25, 2023 1:00am January 15, 2024 9:46pm Comment on above: Take 1 tablet by marques th once daily. Take 1 tablet by marques th daily at bedtime. esomeprazole 40 mg delayed release oral capsule (20 sources) Proton Pump Inhibitor Start: End: take 1 capsule by mouth once daily Esomeprazole Magnesium (Nexium) 40 mg capsule,delayed release(DR/EC) Discontinued 40 mg PO DAILY April 09, 2023 12:00am June 15, 2023 6:27am Start: 12-25-2022 End: 08-23-2023 take 1 capsule by mouth twice daily before mealtime esomeprazole (NEXIUM) 40 mg capsule Take 1 capsule by mouth twice daily before meals. 60 capsule 1 03/01/2023 05/09/2023 Discontinued Comment on above: Take 1 capsule by mo [facility] twice daily before meals. 1 ml evolocumab 140 mg/ml auto-injector (20 sources) PCSK9 Inhibitor Start: 10-24-19 inject 140 mg by subcutaneous injection once evolocumab (REPATHA SURECLICK) 140 mg/mL pen injector Indications: Hyperlipidemia, unspecified hyperlipidemia type Inject 140 mg subcutaneously every 2 weeks[facility] 10/24/2022 Active Start: 10-06-2022 End: 11-10-2024 Evolocumab (Repatha Sureclic k) 140 mg/mL pen injector Discontinued 140 mg SC every 2 weeks 2 October 31, 2023 4:40pm November 10, 2024 2:46pm Comment on above: Inject 140 mg subcut aneously every 2 weeks. [facility]. ferrous sulfate 325 mg oral tablet (20 sources) Start: 1 End: 5 take 1 tablet by mouth twice daily Ferrous Sulfate 325 mg (65 mg iron) tablet Discontinued 325 mg PO TWICE A DAY August 26, 2021 3:48pm April 30, 2025 3:43pm Start: 09-24-2020 End: 08-26-2021 take 1 tablet by mouth once daily Ferrous Sulfate 325 MG tablet Discontinued 325 mg PO DAILY September 24, 2020 1:00am August 26, 2021 3:53pm Comment on above: Take 325 mg by mouth twice daily with meals. fluconazole 100 mg oral tablet (4 sources) Azole Antifungal Start: 3 End: 3 take 1 tablet by mouth once daily fluconazole (DIFLUCAN) 100 mg tablet Take 1 tablet by mouth once daily for 14 days. 14 tablet 03/01/2023 03/15/2023 Comment on above: [facility]. gabapentin 400 mg oral capsule (20 sources) Anti-epileptic Agent Start: 4 End: 4 take 1 capsule by mouth once daily at bedtime gabapentin (NEURONTIN) 400 mg capsule Indications: Osteoarthritis of knee, unspecified laterality, unspecified osteoarthritis type , Primary osteoarthritis of both hips Take 1 capsule by mouth daily at bedtime for 180 days. 90 capsule 1 09/14/2023 01/24/2024 Discontinued Start: 12-27-2021 End: 10-25-2023 take 600 mg by mouth once daily in the morning Gabapentin Discontinued 600 MG PO EVERY MORNING December 27, 2021 2:21pm October 25, 2023 2:22pm Start: 12-27-2021 End: 10-25-2023 take 800 mg by mouth once daily in the evening Gabapentin Discontinued 800 MG PO EVERY EVENING December 27, 2021 12:00am October 25, 2023 2:23pm Start: 11-29-2021 End: 10-25-2023 take 2 capsules by mouth once daily in the morning Gabapentin 300 mg capsule Discontinued 600 mg PO EVERY MORNING December 27, 2021 2:21pm October 25, 2023 2:22pm pain Start: 11-29-2021 End: 10-25-2023 take 2 capsules by mouth once daily in the evening Gabapentin 400 mg capsule Discontinued 800 mg PO EVERY EVENING December 27, 2021 12:00am October 25, 2023 2:23pm Start: 08-26-2021 End: 12-27-2021 Gabapentin 300 mg capsule Discontinued 300 mg PO .COMPLEX August 26, 2021 3:49pm December 27, 2021 2:33pm pain 300 mg PO 300mg QAM, 300mg dinner, 600 mg qHS; Start: 08-22-2014 End: 08-26-2021 take 2 capsules by mouth twice daily Gabapentin 300 MG capsule Discontinued 600 mg PO TWICE A DAY August 22, 2014 1:00am August 26, 2021 3:53pm pain Start: 08-22-2014 End: 08-26-2021 take 600 mg by mouth twice daily Gabapentin Discontinu ed 600 MG PO TWICE A DAY August 22, 2014 1:00am August 26, 2021 3:53pm Comment on above: Take 2 capsules by m outh daily at bedtime. Take 2 capsules by m outh every morning. Take 2 capsules by m outh every morning for 180 days. Take 2 capsules by m outh daily at bedtime for 180 days. Take 1 capsule by mo akh daily at bedtime for 180 days. insulin detemir (20 sources) Insulin Analog Start: 10-25-2023 End: 01-15-2024 Insulin Detemir U-100 Discontinued 0 SC .COMPLEX October 25, 2023 2:20pm January 15, 2024 9:48pm Take 25 units in AM & 25 units in PM Start: 11-18-2022 End: 12-02-2023 insulin detemir U-100 (LEVEM IR FLEXTOUCH U-100 INSULIN) 100 unit/mL (3 mL) injection pen Indications: Type 2 diabetes mellitus with stage 3b chronic kidney disease, with long-term current use of insulin (HCC) 40 units twice a day, adjust dose based on sugars, max daily dose 100 units 30 Each 3 11/18/2022 12/02/2023 Discontinued Start: 12-27-2021 End: 10-25-2023 Insulin Detemir U-100 Discontinued 0 SC .COMPLEX December 27, 2021 2:22pm October 25, 2023 2:23pm Take 30 units in AM & 55 units in PM Start: 12-27-2021 Insulin Detemi r U-100 Active 0 SC .COMPLEX December 27, 2021 2:22pm Take 30 units in AM & 55 units in PM Start: 12-27-2021 Insulin Detemi r U-100 Active 0 SC .COMPLEX December 27, 2021 2:22pm Take 20 units in AM & 40 units in PM Start: 09-08-2021 End: 11-14-2022 insulin detemir U-100 (LEVEM IR FLEXTOUCH U-100 INSULIN) 100 unit/mL (3 mL) injection pen Indications: Type 2 diabetes mellitus with stage 3b chronic kidney disease, with long-term current use of insulin (HCC) 40 units twice a day, adjust dose based on sugars, max daily dose 100 units 30 Pen 3 09/08/2021 11/14/2022 Discontinued Start: 08-23-2021 End: 12-27-2021 Insulin Detemir U-100 100 un it/mL (3 mL) insulin pen Discontinued 40 U SC TWICE A DAY August 23, 2021 2:56pm December 27, 2021 2:33pm diabetes AM AND PM Start: 06-04-2020 End: 08-23-2021 Insulin Detemir U-100 100 un it/mL (3 mL) insulin pen Discontinued 17 U SC TWICE A DAY June 04, 2020 2:07pm August 23, 2021 2:57pm diabetes AM AND PM Start: 02-23-2020 End: 06-04-2020 Insulin Detemir U-100 100 UNITS/ML insulin pen Discontinued 16 U SC AT BEDTIME February 23, 2020 12:00am June 04, 2020 2:12pm Start: 02-23-2020 End: 06-04-2020 Insulin Detemir U-100 Discontinued 16 UNITS SC AT BEDTIME February 23, 2020 12:00am June 04, 2020 2:12pm Start: 04-05-2018 End: 06-04-2020 inject 14 [IU] by subcutaneous injection once daily Insulin Detemir U-100 100 UNIT/ML solution Discontinued 14 U SQ DAILY April 05, 2018 12:00am June 04, 2020 2:12pm Comment on above: 40 units twice a day , adjust dose based on sugars, max daily dose 100 units Insulin Detemir U-100 100 unit/mL (3 mL) insulin pen (4 sources) Start: 10-25-2023 End: 01-15-2024 Insulin Detemir U-100 100 unit/mL (3 mL) insulin pen Discontinued 0 SC .COMPLEX October 25, 2023 2:20pm January 15, 2024 9:48pm diabetes Take 25 units in AM & 25 units in PM Start: 12-27-2021 End: 10-25-2023 Insulin Detemir U-100 100 un it/mL (3 mL) insulin pen Discontinued 0 SC .COMPLEX December 27, 2021 2:22pm October 25, 2023 2:23pm diabetes Take 30 units in AM & 55 units in PM 3 ml insulin lispro 200 unt/ml pen injector (20 sources) Insulin Analog Start: 03-02-2023 End: 07-25-2024 insulin lispro (HUMALOG KWIKPEN INSULIN) 200 unit/mL (3 mL) injection INJECT UP TO 165 UNITS SUBCUTANEOUSLY DAILY. 75 mL 03/05/2024 07/25/2024 Discontinued Start: 02-28-2023 End: 03-02-2023 insulin lispro (HUMALOG) 200 unit/mL (3 mL) injection take up to 165 units daily 25 Each 3 03/02/2023 Active Comment on above: take up to 165 units daily lactulose 667 mg/ml oral solution (20 sources) Osmotic Laxative Start: 01-26-2024 End: 01-29-2024 take 30 mL by mouth every twenty-four hours lactulose (DUPHALAC, CONSTULOSE) 10 gram/15 mL solution Take 30 mL by mouth every 24 hours. NOT TAKING Patient should start on January 26, 2024. 01/26/2024 01/29/2024 Discontinued (Discontinued by Patient) Start: 12-27-2021 End: 10-25-2023 take 30 g by mouth once daily Lactulose 10 gram/15 mL solution Discontinued 30 g PO DAILY December 27, 2021 12:00am October 25, 2023 2:23pm Constipation Start: 02-10-2021 End: 12-27-2021 take 20 g by mouth once daily as needed Lactulose 20 gram packet Discontinued 20 g PO DAILY as needed February 10, 2021 12:00am December 27, 2021 2:23pm lactulose (DUPHA LAC, CONSTULOSE) 10 gram/15 mL solution 30 mL q 24 HR. 0 Active Comment on above: 30 mL q 24 HR. lidocaine 0.05 mg/mg medicated patch (20 sources) Antiarrhythmic, Amide [facility] Start: End: apply 1 dose transdermal route every twelve hours, then apply 1 dose transdermal route every twelve hours lidocaine (LIDODERM) 5 % Indications: Rib pain on left side Apply 1 Patch as directed every 12 hours. Remove old patch prior to placing new patch. Location: arms, left rib. 12 hours on, 12 hours off. 15 Patch 5 09/14/2023 07/25/2024 Discontinued Start: 05-08-2023 End: 06-20-2023 apply 1 dose transdermal route every twelve hours, then apply 1 dose transdermal route every twelve hours lidocaine (LIDODERM) 5 % Indications: Rib pain on left side Apply 1 Patch as directed every 12 hours. Remove old patch prior to placing new patch. Location: left rib. 12 hours on, 12 hours off. 15 Patch 05/08/2023 06/20/2023 Discontinued Comment on above: Apply 1 Patch as dir ected every 12 hours. Remove old patch prior to placing new patch. Location: left rib. 12 hours on, 12 hours off. Apply 1 Patch as dir ected every 12 hours. Remove old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 Menopausal symptom; Translations: [Menopausal and female climacteric states] Onset: 04-07-2003 Resolved: 10-15-2017 10-15-2017 Chronic Nutritional deficiencies (20 sources) Deficiency of macronutrients; Translations: [Mild protein-calorie malnutrition] Onset: 06-28-2020 Resolved: 06-29-2020 06-29-2020 Chronic Other aftercare (3 sources) senior living (current) use of insulin; Translations: [Type 2 diabetes mellitus with stage 4 chronic kidney disease, with long-term current use of insulin (HCC)] Onset: 08-16-2020 Episodic Other and unspecified benign neoplasm (20 sources) Angiomyolipoma of right kidney; Translations: [Benign lipomatous neoplasm of kidney] Onset: 01-11-2016 Resolved: 06-15-2016 06-15-2016 Episodic Other connective tissue disease (20 sources) History of total knee arthroplasty; Translations: [Presence of unspecified artificial knee joint] Onset: 07-02-2012 Resolved: 07-15-2018 07-15-2018 Chronic Other connective tissue disease (2 sources) Trochanteric bursitis, right hip; Translations: [Enthesopathy of hip region] Onset: 07-06-2021 07-06-2021 Episodic Other connective tissue disease (20 sources) Muscle pain; Translations: [Myalgia, unspecified site] Onset: 04-07-2015 04-12-2017 Episodic Other connective tissue disease (20 sources) Trochanteric bursitis of right hip; Translations: [Trochanteric bursitis, right hip] Onset: 11-27-2016 Resolved: 08-18-2020 08-18-2020 Episodic Other connective tissue disease (1 source) Myalgia, unspecified site; Translations: [Myalgia] Onset: 04-12-2017 Episodic Other diseases of veins and lymphatics (20 sources) Vascular insufficiency; Translations: [Venous insufficiency (chronic) (peripheral)] Onset: 02-06-2015 Resolved: 04-12-2017 04-12-2017 Episodic Other ear and sense organ disorders (20 sources) Sensorineural hearing loss, bilateral; Translations: [Sensorineural hearing loss, bilateral] Onset: 07-19-2011 Resolved: 08-16-2020 Chronic Other gastrointestinal disorders (20 sources) History of sleeve gastrectomy; Translations: [Bariatric surgery status] Onset: 03-10-2019 06-13-2019 Episodic Other nervous system disorders (20 sources) Disorder of sleep-wake cycle; Translations: [Circadian rhythm sleep disorder, irregular sleep wake type] Onset: 03-15-2021 Resolved: 04-09-2025 03-15-2021 Chronic Other nervous system disorders (20 sources) Impaired cognition; Translations: [Other symptoms and signs involving cognitive functions and awareness] Onset: 03-15-2021 Resolved: 04-09-2025 03-15-2021 Episodic Other non-traumatic joint disorders (1 source) Pain in unspecified joint; Translations: [Multiple joint pain] Onset: 12-30-2024 Episodic Other nutritional; endocrine; and metabolic disorders (20 sources) Severe obesity; Translations: [Morbid (severe) obesity due to excess calories] Onset: 06-21-2020 Resolved: 04-09-2025 11-25-2021 Chronic Other nutritional; endocrine; and metabolic disorders (20 sources) Morbid obesity; Translations: [Morbid (severe) obesity due to excess calories] Onset: 03-02-2003 Resolved: 06-13-2019 07-15-2014 Chronic Other nutritional; endocrine; and metabolic disorders (20 sources) Body mass index 40+ - severely obese; Translations: [Body mass index (BMI) 40.0-44.9, adult] Onset: 10-14-2013 Resolved: 12-01-2019 03-31-2014 Chronic Other screening for suspected conditions (not mental disorders or infectious disease) (20 sources) Patient encounter status; Translations: [Encounter for screening mammogram for malignant neoplasm of breast] Onset: 09-11-2017 Resolved: 10-15-2017 Episodic Residual codes; unclassified (20 sources) Edema; Translations: [Edema, unspecified] Onset: 03-02-2003 11-22-2020 Episodic Residual codes; unclassified (1 source) Edema, unspecified; Translations: [Edema, unspecified type] Onset: 11-22-2020 Episodic Skin and subcutaneous tissue infections (20 sources) Infection of skin; Translations: [Local infection of the skin and subcutaneous tissue, unspecified] Onset: 08-31-2015 Resolved: 03-13-2016 03-13-2016 Episodic Sprains and strains (2 sources) Strain of muscle, fascia and tendon of right hip, subsequent encounter; Translations: [Other specified aftercare] Onset: 07-06-2021 07-06-2021 Episodic Thyroid disorders (20 sources) Thyroid nodule; Translations: [Nontoxic single thyroid nodule] Onset: 10-20-2009 Resolved: 03-02-2010 03-02-2010 Chronic Unclassified (2 sources) Problem Unclassified (17 sources) history of kidney lesion 07-21-2019 Results Test Name Value Interpretation Reference Range Facility Microalb:Creat Ratio,Random URon 05-01-2025 Creatinine [Mass/Vol] 50.10 mg/dL Normal 28.00-217.00 [facility] Comment on above: Order Comment: PATIE NT DROPPED OFF URINE AT CURRIE, WAS NOT ORDERED OVERTHERE BEFORE COMING TO LAB Performed By: #### L 502.0250 ####[facility] [address] [place], [address] MALB:CREAT 126.7 mg/g CRE High <30 mg/g CRE [facility] Comment on above: Order Comment: PATIE NT DROPPED OFF URINE AT CURRIE, WAS NOT ORDERED OVERTHERE BEFORE COMING TO LAB Performed By: #### L 502.0250 ####[facility] [address] [place], [address] MICROALBUMIN,UR 63.5 mg/L Normal <20 mg/L [facility] Comment on above: Order Comment: PATIE NT DROPPED OFF URINE AT CURRIE, WAS NOT ORDERED OVERTHERE BEFORE COMING TO LAB Performed By: #### L 502.0250 ####[facility] [address] [place], [address] CBC-Complete Blood Cnt No Di ffon 04-30-2025 Erythrocyte distribution width (RBC) [Ratio] 13.3 % Normal 11.6-14.6 [facility] Comment on above: Performed By: #### L 100.0500, L502.0250, L500.3600 ####[facility] [address] [place], [address] Hematocrit (Bld) [Volume fraction] 33.7 % Low 37-47 [facility] Comment on above: Performed By: #### L 100.0500, L502.0250, L500.3600 ####[facility] [address] [place], [address] Hemoglobin (Bld) [Mass/Vol] 11.0 g/dL Low 12.0-15.0 [facility] Comment on above: Performed By: #### L 100.0500, L502.0250, L500.3600 ####[facility] [address] [place], [address] MCH (RBC) [Entitic mass] 30.5 pg Normal 27.0-32.0 [facility] Comment on above: Performed By: #### L 100.0500, L502.0250, L500.3600 ####[facility] [address] [place], [address] MCHC (RBC) [Mass/Vol] 32.6 g/dL Normal 32-36 [facility] Comment on above: Performed By: #### L 100.0500, L502.0250, L500.3600 ####[facility] [address] [place], [address] MCV (RBC) [Entitic vol] 93.4 fL Normal 81-99 [facility] Comment on above: Performed By: #### L 100.0500, L502.0250, L500.3600 ####[facility] [address] [place], [address] Platelet mean volume (Bld) [Entitic vol] 10.3 fL Normal 6.2-12.0 [facility] Comment on above: Performed By: #### L 100.0500, L502.0250, L500.3600 ####[facility] [address] [place], [address] Platelets (Bld) [#/Vol] 171 10*3/uL Normal 150-450 [facility] Comment on above: Performed By: #### L 100.0500, L502.0250, L500.3600 ####[facility] [address] [place], [address] RBC (Bld) [#/Vol] 3.61 10*6/uL Low 4.2-5.4 [facility] Comment on above: Performed By: #### L 100.0500, L502.0250, L500.3600 ####[facility] [address] [place], [address] RDW SD 45.4 fl High 35.1-43.9 [facility] Comment on above: Performed By: #### L 100.0500, L502.0250, L500.3600 ####[facility] [address] [place], [address] WBC (Bld) [#/Vol] 6.8 10*3/uL Normal 4.4-11.0 [facility] Comment on above: Performed By: #### L 100.0500, L502.0250, L500.3600 ####[facility] [address] [place], [address] Microalb:Creat Ratio,Random URon 04-30-2025 MALB:CREAT Normal <30 mg/g CRE [facility] Comment on above: Result Comment: UTO Performed By: #### L 100.0500, L502.0250, L500.3600 ####[facility] [address] [place], [address] MICROALBUMIN,UR Normal <20 mg/L [facility] Comment on above: Result Comment: UTO Performed By: #### L 100.0500, L502.0250, L500.3600 ####[facility] [address] [place], [address] UR CREAT Normal 28.00-217.00 [facility] Comment on above: Result Comment: UTO Performed By: #### L 100.0500, L502.0250, L500.3600 ####[facility] [address] [place], [address] Renal Profileon 04-30-2025 Albumin [Mass/Vol] 4.0 g/dL Normal 3.4-4.8 [facility] Comment on above: Performed By: #### L 100.0500, L502.0250, L500.3600 ####[facility] [address] [place], [address] BUN/CRE 23.0 RATIO High 10-20 [facility] Comment on above: Performed By: #### L 100.0500, L502.0250, L500.3600 ####[facility] [address] [place], [address] Calcium [Mass/Vol] 9.7 mg/dL Normal 7.6-11.0 [facility] Comment on above: Performed By: #### L 100.0500, L502.0250, L500.3600 ####[facility] [address] [place], [address] Chloride [Moles/Vol] 105 mmol/L Normal 98-108 [facility] Comment on above: Performed By: #### L 100.0500, L502.0250, L500.3600 ####[facility] [address] [place], [address] CO2 [Moles/Vol] 26.2 mmol/L Normal 21.0-32.0 [facility] Comment on above: Performed By: #### L 100.0500, L502.0250, L500.3600 ####[facility] [address] [place], [address] Creatinine [Mass/Vol] 1.05 mg/dL Normal 0.70-1.20 [facility] Comment on above: Performed By: #### L 100.0500, L502.0250, L500.3600 ####[facility] [address] [place], [address] GAP 13 Normal 5-15 [facility] Comment on above: Performed By: #### L 100.0500, L502.0250, L500.3600 ####[facility] [address] [place], [address] GFR/1.73 sq M.predicted among non-blacks MDRD (S/P/Bld) [Vol rate/Area] 55 mL/min/{1.73_m2} Low >60 [facility] Comment on above: Result Comment: mL/m in/1.73m2 CKD-EPI Creatinine Equation (2020) Performed By: #### L 100.0500, L502.0250, L500.3600 ####[facility] [address] [place], [address] Glucose [Mass/Vol] 125 mg/dL High 70-99 [facility] Comment on above: Performed By: #### L 100.0500, L502.0250, L500.3600 ####[facility] [address] [place], [address] Phosphate [Mass/Vol] 4.0 mg/dL Normal 2.7-4.5 [facility] Comment on above: Performed By: #### L 100.0500, L502.0250, L500.3600 ####[facility] [address] [place], [address] Potassium [Moles/Vol] 4.2 mmol/L Normal 3.3-5.1 [facility] Comment on above: Performed By: #### L 100.0500, L502.0250, L500.3600 ####[facility] [address] [place], [address] Sodium [Moles/Vol] 143 mmol/L Normal 133-145 [facility] Comment on above: Performed By: #### L 100.0500, L502.0250, L500.3600 ####[facility] [address] [place], [address] Urea nitrogen [Mass/Vol] 24 mg/dL High 4-19 [facility] Comment on above: Performed By: #### L 100.0500, L502.0250, L500.3600 ####[facility] [address] [place], [address] Hugo 04-28-2025 JANINE Telephone (PREANME) SHANELLBHAKTI Rhoda ([id number]) 1945 F Date Time Provider Department 04/28/25 NICOLE VALLES During your visit today, we recorded the following information about you: Nicole Valles APRN.LIZ 04/28/2025 1:33 PM Addendum [facility], Please call this patient to reschedule in [place] that sees surgeries performed in [place]. Patient must be rescheduled. Scheduled for 2:00PM today in [place]. ADDENDUM: April 28, 2025 1:32 PM Appears patient was scheduled twice, can see appointment scheduled for 05/08 for Pre-Surgical Testing at [facility]. Nicole Valles APRN.[facility] Allergies As of Date: 04/28/2025 Noted Allergy Reaction ADHESIVE TAPE (ROSINS) 05/08/2006 14 - Other: See Comments Comments: Contact celluitis CRESTOR (ROSUVASTATIN CALCIUM) 05/29/2012 5 - Intolerance LANTUS (INSULIN GLARGINE) 05/30/2017 5 - Intolerance Comments: burning at local injection site NICKEL 05/29/2012 2 - Rash Comments: in jewelry; also Palladium which cross reacts with nickel in some cases. PALLADIUM 05/26/2016 2 - Rash PRAVASTATIN 11/14/2012 5 - Intolerance Comments: Muscle cramps TORADOL (KETOROLAC) 05/25/2003 4 - Hives Date Reviewed: 04/08/2025 Reviewed by: Christin Thao LPN - Fully Assessed Reason for Visit: Preparations For Surgery [898] Prescriptions as of 04/28/2025 - allopurinol (ZYLOPRIM) 300 mg tablet Take 1 tablet by mouth once daily. For gout. - DULoxetine DR (CYMBALTA) 60 mg capsule Take 1 capsule by mouth once daily. - insulin aspart U-100 (NOVOLOG FLEXPEN U-100 INSULIN) 100 unit/mL (3 mL) pen Inject 14 Units subcutaneously three times a day before meals. 14 in AM, 14 at lunch, 14 at supper, 10 at bed, plus extra based on sugars, max daily dose 100 units plus sliding scale - furosemide (LASIX) 40 mg tablet Take 1 tablet by mouth once daily. Per Dr. Lilian Vance, nephrology. - blood sugar diagnostic (ACCU-CHEK ANNALISE PLUS TEST STRP) test strip Use to check blood sugar 4 times daily - memantine (NAMENDA) 10 mg tablet Take 1 tablet by mouth two times a day. - glucagon 3 mg/actuation nasal spray (BAQSIMI) Use 1 [place] in the nose as needed for low blood sugar. May repeat after 15 minutes using a new device if there is no response. - cycloSPORINE (RESTASIS) 0.05 % ophthalmic emulsion Use 1 Drop in both eyes two times a day. - insulin glargine U-300 conc (TOUJEO SOLOSTAR U-300 INSULIN) 300 unit/mL (1.5 mL) take 24 units twice a day, max daily dose 60 units - levothyroxine (SYNTHROID) 175 mcg tablet Take 1 tablet by mouth once daily. - colchicine 0.6 mg tablet Take 2 tabs by mouth, followed by 1 tab one hour later for gout flare. May repeat in 1 week. - nitroglycerin sublingual (NITROQUICK) 0.4 mg SL tablet Dissolve 1 tablet under the tongue as needed. FOR CHEST PAIN. IF NO RELIEF CALL 911 - Insulin Wales, Disposable, (BD ULTRAFINE III MINI PEN) 31 gauge x 3/16 1 Each as directed. 6 times daily. Dx:E11.40. On multiple insulin doses. - evolocumab (REPATHA SURECLICK) 140 mg/mL pen injector Inject 140 mg subcutaneously every 2 weeks. [facility]. - Lancets (ACCU-CHEK SOFTCLIX LANCETS) lancets Checking blood sugars 4 times daily. Dx: E11.42 - BIPAP - calcium citrate (CITRACAL ORAL) (Discontinued) Take 2 tablets by mouth two times a day. NOT TAKING Patient should start on January 26, 2024. - fluticasone (FLONASE) 50 mcg/actuation nasal spray Use 2 Sprays in each nostril once daily. - COMPOUNDED PRESCRIPTION Initiate BiPAP @ 15/9 cm of water with humidification. Mask (per patient preference) optional chin strap (if indicated) , filters, tubing, humidifier and lifetime supplies. Dx. ABDI 327.23 - polyethylene glycol 3350(MIRALAX 100 % ORAL POWDER) 17 grams/8 0z water daily Problem List As Of Date 04/28/2025 Noted Resolved Edema [R60.9] 03/02/2003 Diabetes mellitus type 2 [E11.9] 03/02/2003 07/15/2014 Morbid obesity (HCC) [E66.01] 03/02/2003 07/15/2014 Symptomatic menopausal or female climacteric st*04/07/2003 10/15/2017 HYPERLIPIDEMIA NEC/NOS [E78.5] 06/10/2015 ABDI treated with BiPAP [G47.33] Incisional hernia without mention of obstructio*08/12/2014 Thyroid Nodule [E04.1] 10/20/2009 03/02/2010 Thyroid CA [C73] 02/21/2010 08/12/2014 Diverticulosis [K57.90] 08/23/2010 03/13/2016 Sensorineural hearing loss, bilateral [H90.3] 07/19/2011 08/16/2020 Allergic contact dermatitis due to metals [L23.*05/21/2012 08/16/2020 Degenerative arthritis of right knee [M17.11] 06/10/2012 08/12/2014 S/P total knee replacement using cement [Z96.65*07/02/2012 07/15/2018 Chest pain [R07.9] 09/13/2012 03/13/2016 Arteriosclerotic heart disease (ASHD) [I25.10] 09/13/2017 BMI 40.0-44.9, adult (HCC) [Z68.41] 10/14/2013 03/31/2014 Diabetes mellitus type II, uncontrolled [QXY019*11/25/2013 02/06/2015 BMI 45.0-49.9, adult (HCC) [Z68.42] 03/31/2014 10/13/2014 Deg (more content not included)... [facility] BH[facility] KIRKPATRICK ([id number]) 1945 F Date Time Provider Department 04/15/25 JAZLYN LOPES PTMDRG During your visit today, we recorded the following information about you: [facility] 1:53 PM Signed Called patient had to leave a message for patient to call back Patient is having surgery with Dr. Mccall on 05-15-25 Patient is to schedule Post Op appointment at 1 - 2 weeks after surgery. Asked patient to call and schedule the appointment as soon as she can so that she would be able to get the day, time and location that she would prefer to have. Please call [phone] [facility] 04/16/2025 2:09 PM Signed Patient is scheduled Allergies As of Date: 04/15/2025 Noted Allergy Reaction ADHESIVE TAPE (ROSINS) 05/08/2006 14 - Other: See Comments Comments: Contact celluitis CRESTOR (ROSUVASTATIN CALCIUM) 05/29/2012 5 - Intolerance LANTUS (INSULIN GLARGINE) 05/30/2017 5 - Intolerance Comments: burning at local injection site NICKEL 05/29/2012 2 - Rash Comments: in jewelry; also Palladium which cross reacts with nickel in some cases. PALLADIUM 05/26/2016 2 - Rash PRAVASTATIN 11/14/2012 5 - Intolerance Comments: Muscle cramps TORADOL (KETOROLAC) 05/25/2003 4 - Hives Date Reviewed: 04/08/2025 Reviewed by: Christin Thao LPN - Fully Assessed Reason for Visit: Physical Therapy [503] Prescriptions as of 04/16/2025 - allopurinol (ZYLOPRIM) 300 mg tablet Take 1 tablet by mouth once daily. For gout. - DULoxetine DR (CYMBALTA) 60 mg capsule Take 1 capsule by mouth once daily. - insulin aspart U-100 (NOVOLOG FLEXPEN U-100 INSULIN) 100 unit/mL (3 mL) pen Inject 14 Units subcutaneously three times a day before meals. 14 in AM, 14 at lunch, 14 at supper, 10 at bed, plus extra based on sugars, max daily dose 100 units plus sliding scale - furosemide (LASIX) 40 mg tablet Take 1 tablet by mouth once daily. Per Dr. Lilian Vance, nephrology. - blood sugar diagnostic (ACCU-CHEK ANNALISE PLUS TEST STRP) test strip Use to check blood sugar 4 times daily - memantine (NAMENDA) 10 mg tablet Take 1 tablet by mouth two times a day. - glucagon 3 mg/actuation nasal spray (BAQSIMI) Use 1 [place] in the nose as needed for low blood sugar. May repeat after 15 minutes using a new device if there is no response. - cycloSPORINE (RESTASIS) 0.05 % ophthalmic emulsion Use 1 Drop in both eyes two times a day. - insulin glargine U-300 conc (TOUJEO SOLOSTAR U-300 INSULIN) 300 unit/mL (1.5 mL) take 24 units twice a day, max daily dose 60 units - levothyroxine (SYNTHROID) 175 mcg tablet Take 1 tablet by mouth once daily. - colchicine 0.6 mg tablet Take 2 tabs by mouth, followed by 1 tab one hour later for gout flare. May repeat in 1 week. - nitroglycerin sublingual (NITROQUICK) 0.4 mg SL tablet Dissolve 1 tablet under the tongue as needed. FOR CHEST PAIN. IF NO RELIEF CALL 911 - Insulin Wales, Disposable, (BD ULTRAFINE III MINI PEN) 31 gauge x 3/16 1 Each as directed. 6 times daily. Dx:E11.40. On multiple insulin doses. - evolocumab (REPATHA SURECLICK) 140 mg/mL pen injector Inject 140 mg subcutaneously every 2 weeks. [facility]. - Lancets (ACCU-CHEK SOFTCLIX LANCETS) lancets Checking blood sugars 4 times daily. Dx: E11.42 - BIPAP - calcium citrate (CITRACAL ORAL) (Discontinued) Take 2 tablets by mouth two times a day. NOT TAKING Patient should start on January 26, 2024. - fluticasone (FLONASE) 50 mcg/actuation nasal spray Use 2 Sprays in each nostril once daily. - COMPOUNDED PRESCRIPTION Initiate BiPAP @ 15/9 cm of water with humidification. Mask (per patient preference) optional chin strap (if indicated) , filters, tubing, humidifier and lifetime supplies. Dx. ABDI 327.23 - polyethylene glycol 3350(MIRALAX 100 % ORAL POWDER) 17 grams/8 0z water daily Problem List As Of Date 04/15/2025 Noted Resolved Edema [R60.9] 03/02/2003 Diabetes mellitus type 2 [E11.9] 03/02/2003 07/15/2014 Morbid obesity (HCC) [E66.01] 03/02/2003 07/15/2014 Symptomatic menopausal or female climacteric st*04/07/2003 10/15/2017 HYPERLIPIDEMIA NEC/NOS [E78.5] 06/10/2015 ABDI treated with BiPAP [G47.33] Incisional hernia without mention of obstructio*08/12/2014 Thyroid Nodule [E04.1] 10/20/2009 03/02/2010 Thyroid CA [C73] 02/21/2010 08/12/2014 Diverticulosis [K57.90] 08/23/2010 03/13/2016 Sensorineural hearing loss, bilateral [H90.3] 07/19/2011 08/16/2020 Allergic contact dermatitis due to metals [L23.*05/21/2012 08/16/2020 Degenerative arthritis of right knee [M17.11] 06/10/2012 08/12/2014 S/P total knee replacement using cement [Z96.65*07/02/2012 07/15/2018 Chest pain [R07.9] 09/13/2012 03/13/2016 Arteriosclerotic heart disease (ASHD) [I25.10] 09/13/2017 BMI 40.0-44.9, adult (HCC) [Z68.41] 10/14/2013 03/31/2014 Diabetes mellitus type II, uncontrolled [[id number]*0 (more content not included)... Normal [facility] Urine Cultureon 03-19-2025 [facility] Urine Culture Urine Culture Escherichia coli [place] Count 80,000-100,000 Escherichia coli: REACTION Ampicillin Islt TWYLA 8 Ampicillin+Sulbac Islt TWYLA 4 S Cefepime Islt TWYLA <=0.12 S cefTRIAXone Islt TWYLA <=0.25 S Ciprofloxacin Islt TWYLA <=0.06 S B-Lactamase Extended Susc Islt NEG Gentamicin Islt TWYLA <=1 S levoFLOXacin Islt TWYLA <=0.12 S Meropenem Islt TWYLA <=0.25 S Nitrofurantoin Islt TWYLA <=16 S Pip+Tazo Islt TWYLA <=4 S TMP SMX Islt TWYLA <=20 S Normal [facility] Comment on above: Performed By: #### M 100.2200 #### [facility] [address] [place], [address] Emergency Department Summary on 03-17-2025 Emergency Department Summary [facility] Medical Records Department [address] [place] [address] Emergency Department Summary 03/17/25 MR#: [id number] Acct: [id number] Name: BHAKTI KIRKPATRICK Rep #: [id number] : [id number] 79 From: Scooter Lim DO PCP: Dr. Jesus Davila MD Status:DEP ER Location: ED HPI HPI - Female History of Present Illness Chief Complaint: Vag Bleeding Informant: patient and spouse/S.O. Narrative Narrative: Patient is a 79-year-old female with past medical history of insulin-dependent diabetes hypertension and hyperlipidemia. She states that today she was in the den and felt like she had to use the bathroom and when she did so she noticed reportedly a large amount of blood that she felt was coming from her vagina. She denies any history of bleeding disorder or blood thinner use. She states she has had a hysterectomy multiple years ago. Secondary to the sudden onset of the blood she was brought in for evaluation. Otherwise the patient denies any lightheadedness or dizziness or syncope or abdominal pain. 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 hernioplasty mesh CKD stage 3 due to type 2 diabetes mellitus Diverticulitis large intestine Chronic diastolic (congestive) heart failure Essential (primary) hypertension Pulmonary hypertension ABDI (obstructive sleep apnea) Dyspnea Small bowel obstruction Bowel obstruction Osteoarthritis Pneumonia Sensorineural hearing loss (SNHL), bilateral Myalgia Fatty liver Edema Depressive disorder Degenerative arthritis of knee Degenerative arthritis of hip Allergic contact dermatitis due to metals CKD (chronic kidney disease) stage 3, GFR 30-59 ml/min SBO (small bowel obstruction) History of thyroid cancer Morbid obesity Type 2 diabetes mellitus Home Medications ???Medication ???Instructions ???Recorded ???Last Taken ???Type ytpjndbn-wgqaatjv-wg on 45 mg-folic 1 ea PO DAILY vitamins 06/06/19 06/14/20 History acid 800 mcg-vit K 120 mcg capsule calcium 315 mg (as 2 ea PO BID vitamin 07/04/1906/14 History citrate)-vitamin D3 6.25 mcg (250 unit) tablet metoprolol tartrate 25 mg tablet 25 mg PO BID 07/04/19 Unknown Hist ory fluticasone propionate 50 2 spray intranasal DAILY PRN 07/23 Unknown History mcg/actuation nasal Allergies spray,suspension (Flonase Allergy Relief) diphenhydramine HCl 25 mg tablet 25 mg PO DAILY PRN Itching 0 Unknown History (Benadryl Allergy) nitroglycerin 0.4 mg sublingual 0.4 mg sublingual Q5-15M PRN Pain 06/04/20 Unknown History tablet Score 1-06/19 polyethylene glycol 3350 17 17 g PO DAILY bm 06/04/20 06/14/20 History gram/dose oral powder (Miralax) aspirin 81 mg chewable tablet 81 mg PO DAILY 08/26/21 Unknown Hi story diclofenac sodium 1 % topical gel 2 g topical 4X/DAY PRN Pain 08/26 Unknown History (Arthritis Pain (diclofenac)) duloxetine 60 mg capsule,delayed 60 mg PO DAILY 08/26/21 Unknown Hi story release ferrous sulfate 325 mg (65 mg 325 mg PO BID 08/26/21 Unknown His tory iron) tablet meclizine 25 mg tablet 12.5 mg PO DAILY PRN Dizziness Unknown History memantine 5 mg tablet 10 mg PO BID 12/27/21 Unknown Hist ory clindamycin HCl 150 mg capsule 150 mg PO .COMPLEX 10/04/22 Unknow n History allopurinol 300 mg tablet 300 mg PO DAILY 10/25/23 Unknown H istory colchicine 0.6 mg tablet 0.6 mg PO DAILY PRN gout 10/25/23 Unknown History insulin aspart U-100 100 unit/mL 17 unit subcut TID diabetes Unknown History (3 mL) subcutaneous pen ketoconazole 2 % shampoo topical 10/25/23 Unknown History levothyroxine 175 mcg tablet 175 mcg PO DAILY 10/25/23 Unknown History polyethylene glycol 3350 17 17 g PO DAILY 01/15/24 Unknown His tory gram/dose oral powder (Miralax) evolocumab 140 mg/mL subcutaneous 140 mg subcut Q2W #2 mL 11/10/24 Unknown Rx pen injector (Repatha SureClick) nitrofurantoin 100 mg PO BID 7 days #14 caps 05/04 Unknown Rx monohydrate/macrocry stals 100 mg capsule (Macrobid) Allergy/AdvReac Type Severity Reaction Status Date / Time adhesive Allergy Hives Verified 03/16/25 17:01 ampicillin Allergy Rash Verified 03/16/25 17:01 cephalexin monohydrate (From Allergy Hives Verified 03/16/25 17:01 Keflex) ciprofloxacin (From Cipro) Allergy Swelling Verified (more content not included)... Normal [facility] Urinalysis, Completeon 03-17 BACTERIA 2+ /hpf Normal None Seen [facility] Comment on above: Order Comment: CLEAN CATCH Performed By: #### L 400.0001 ####[facility] [id number] [place], [address] EPI,SQUAMOUS 0-5 SEEN Normal 5-10 [facility] Comment on above: Order Comment: CLEAN CATCH Performed By: #### L 400.0001 ####[facility] [id number] [place], [address] RBC > 100 SEEN Normal 0-5 [facility] Comment on above: Order Comment: CLEAN CATCH Performed By: #### L 400.0001 ####[facility] [address] [place], [address] WBC >100 SEEN Normal 0-5 [facility] Comment on above: Order Comment: CLEAN CATCH Performed By: #### L 400.0001 ####[facility] [address] [place], [place], [id number] Abdomen/Pelvis W IV Cont ONL Yon 03-16-2025 Abdomen/Pelvis W IV Cont ONLY [facility] Services [address] [place], [place] [address] Abdomen/Pelvis W IV Cont ONLY MR#: [id number] Acct: [id number] Name: BHAKTI KIRKPATRICK Rep #: [id number] : 1945 F 79 From: Miguel matias MD PCP: Dr. Jesus Davila MD Status: [facility] ER Study: Abdomen/Pelvis W IV Cont ONLY Date of Exam: Exam# [id number] Ordering Dr: Scooter Lim DO PROCEDURE: ABDOMEN/PELVIS W IV CONT ONLY 03/16/2025 REASON FOR EXAM: POSTMENOPAUSAL VAGINAL BLEEDING TECHNIQUE: ABDOMEN/PELVIS W IV CONT ONLY Coronal and Sagittal reconstruction series were provided. CONTRAST: Isovue-370 VOLUME: 96 mL One or more dose reduction techniques were used (e.g., Automated exposure control, adjustment of the mA and/or kV according to patient size, use of iterative reconstruction technique. RADIATION DOSE SUMMARY: CTDlvol: 25.90 mGy DLP: 1186.01 mGycm COMPARISON: 06/28/2024 FINDINGS: CT SCAN OF THE ABDOMEN AND PELVIS WITH IV CONTRAST CLINICAL HISTORY: . TECHNIQUE: Axial and reformatted sagittal images of the abdomen pelvis obtained after IV contrast administration. FINDINGS: The visualized lung bases are unremarkable. Normal liver. The gallbladder is absent. The extrahepatic common bile duct measures approximately 1.6 cm, an expected finding post cholecystectomy. Normal spleen. Normal pancreas. Normal bilateral adrenal glands. Normal size of the right kidney. 1.2 cm angiomyolipoma is seen in the lower pole of the right kidney. Multiple subcentimeter cysts are seen in the upper pole. There are no right renal calculi. There is no right hydronephrosis. Normal visualized right ureter. Normal size of the left kidney. There is no left renal mass. Tiny cyst is seen in the lower pole of the left kidney. There are no left renal calculi. There is no left hydronephrosis. Normal visualized left ureter. Postsurgical changes are seen in the stomach, probably bariatric. Normal small intestine. Normal colon. The appendix is visualized and appears normal. There is no demonstrated peritoneal fluid. Normal abdominal aorta. Scattered atherosclerotic calcifications are seen in the aortic wall. Normal inferior vena cava. Normal retroperitoneum. Suboptimal visualization of the urinary bladder and pelvis due to streak artifacts arising from bilateral total hip joint replacement. The uterus is not visualized and is probably surgically absent. There is no pelvic mass lesion or lymphadenopathy. There is no pelvic fluid. Normal abdominal wall. Streaky artifacts are seen arising from bilateral hip joint prosthesis. CT/Abdomen/Pelvis W IV Cont ONLY IMPRESSION: Postsurgical changes in the stomach, probably bariatric. Status post cholecystectomy with dilatation of the common bile duct, an expected finding post cholecystectomy. Small right renal angiomyolipoma. Subcentimeter bilateral renal cysts. Status post bilateral total hip joint replacement with streaky artifacts limiting the pelvic interpretation. No acute process. Nonvisualization of the uterus which could be surgically absent. Reading Location: [place] [address] CC: Dr. Jesus Davila MD; Scooter Lim DO [employer] Folder: Signed Normal [facility] Absolute lymphocyte countOrd ered By: Nico Hudson on 03-16-2025 Lymphocytes Auto (Unsp spec) [#/Vol] 1.72 10*3/uL 0.83-4.51 [facility] Absolute neutrophil countOrd ered By: Nico Hudson on 03-16-2025 Neutrophils (Bld) [#/Vol] 4.8 10*3/uL 2.0-7.7 [facility] Activated partial thrombopla stin time (aPTT) in platelet poor plasma by coagulation aOrdered By: Scooter Lim on 03-16-2025 aPTT Coag (PPP) [Time] 27.0 s 24.1-36.2 [facility] Anion gap in Serum or Plasma Ordered By: Nico Hudson on 03-16-2025 Anion gap [Moles/Vol] 13 mmol/L 5-15 [facility] Automated lymphocyte count a s percentage of total leukocytesOrdered By: Nico Hudson on 03-16-2025 Lymphocytes/100 WBC Auto (Unsp spec) 23.8 % 19-41 [facility] BUN/creatinine ratioOrdered By: Nico Hudson on 03-16-2025 Urea nitrogen/Creatinine [Mass ratio] 25.1 mg/mg High 10- [facility] Basic Metabolic Profile (BMP )on 03-16-2025 BUN/CRE 25.1 RATIO High 10- [facility] Comment on above: Performed By: #### L 500.2500, L100.0100 #### [facility] [address] [place], [address] Calcium [Mass/Vol] 8.8 mg/dL Normal 7.6-11.0 [facility] Comment on above: Performed By: #### L 500.2500, L100.0100 #### [facility] [address] [place], [address] Chloride [Moles/Vol] 106 mmol/L Normal 98-108 [facility] Comment on above: Performed By: #### L 500.2500, L100.0100 #### [facility] [address] [place], [address] CO2 [Moles/Vol] 25.0 mmol/L Normal 21.0-32.0 [facility] Comment on above: Performed By: #### L 500.2500, L100.0100 #### [facility] [address] [place], [address] Creatinine [Mass/Vol] 1.09 mg/dL Normal 0.70-1.20 [facility] Comment on above: Performed By: #### L 500.2500, L100.0100 #### [facility] [address] [place], [address] ECRCL 41.95 ml/min Low 50-250 [facility] Comment on above: Performed By: #### L 500.2500, L100.0100 #### [facility] [address] [place], [address] GAP 13 Normal 5-15 [facility] Comment on above: Performed By: #### L 500.2500, L100.0100 #### [facility] [address] [place], [address] GFR/1.73 sq M.predicted among non-blacks MDRD (S/P/Bld) [Vol rate/Area] 52 mL/min/{1.73_m2} Low >60 [facility] Comment on above: Result Comment: mL/m in/1.73m2 CKD-EPI Creatinine Equation (2020) Performed By: #### L 500.2500, L100.0100 #### [facility] [address] [place], [address] Glucose [Mass/Vol] 128 mg/dL High 70-99 [facility] Comment on above: Performed By: #### L 500.2500, L100.0100 #### [facility] [address] [place], [address] Potassium [Moles/Vol] 4.2 mmol/L Normal 3.3-5.1 [facility] Comment on above: Performed By: #### L 500.2500, L100.0100 #### [facility] [address] [place], [address] Sodium [Moles/Vol] 143 mmol/L Normal 133-145 [facility] Comment on above: Performed By: #### L 500.2500, L100.0100 #### [facility] [address] [place], [address] Urea nitrogen [Mass/Vol] 27 mg/dL High 4-19 [facility] Comment on above: Performed By: #### L 500.2500, L100.0100 #### [facility] [address] [place], [address] Basophil percentageOrdered B y: Nico Hudson on 03-16-2025 Basophils/100 WBC (Bld) 0.4 % 0-1 [facility] Bedside Glucoseon 03-16-2025 FINGERSTICK GLU 154 mg/dL High 74-106 [facility] Comment on above: Result Comment: YAZAN AWAN OF PATIENT CARE PER NURSING PROTOCOL Performed By: #### L 501.080 ####[facility] [address] [place], [address] Bilirubin Test strip Ql (U)O rdered By: Scooter Lim on 03-16-2025 Bilirubin Ql (U) Negative Negative [facility] CBC W/Diff, Automatedon Absolute Lymph 1.72 X10 3/uL Normal 0.83-4.51 [facility] Comment on above: Performed By: #### L 500.2500, L100.0100 #### [facility] [address] [place], [address] Absolute Neut 4.8 X10 3/uL Normal 2.0-7.7 [facility] Comment on above: Performed By: #### L 500.2500, L100.0100 #### [facility] [address] [place], [address] Basophils/100 WBC (Bld) 0.4 % Normal 0-1 [facility] Comment on above: Performed By: #### L 500.2500, L100.0100 #### [facility] [address] [place], [address] Eosinophils/100 WBC (Bld) 1.5 % Normal 0-5 [facility] Comment on above: Performed By: #### L 500.2500, L100.0100 #### [facility] [address] [place], [address] Erythrocyte distribution width (RBC) [Ratio] 13.6 % Normal 11.6-14.6 [facility] Comment on above: Performed By: #### L 500.2500, L100.0100 #### [facility] [address] [place], [address] Hematocrit (Bld) [Volume fraction] 34.9 % Low 37-47 [facility] Comment on above: Performed By: #### L 500.2500, L100.0100 #### [facility] [address] [place], [address] Hemoglobin (Bld) [Mass/Vol] 11.5 g/dL Low 12.0-15.0 [facility] Comment on above: Performed By: #### L 500.2500, L100.0100 #### [facility] [address] [place], [address] IG% 0.600 Normal 0.0-0.9 [facility] Comment on above: Result Comment: IG% - Immature Granulocytes (promyelocytes, myelocytes and metamyelocytes) > 1% indicates that a LEFT SHIFT is Present. Performed By: #### L 500.2500, L100.0100 #### [facility] [address] [place], [address] Lymphocytes/100 WBC (Bld) 23.8 % Normal 19-41 [facility] Comment on above: Performed By: #### L 500.2500, L100.0100 #### [facility] [address] [place], [address] MCH (RBC) [Entitic mass] 30.9 pg Normal 27.0-32.0 [facility] Comment on above: Performed By: #### L 500.2500, L100.0100 #### [facility] [address] [place], [address] MCHC (RBC) [Mass/Vol] 33.0 g/dL Normal 32-36 [facility] Comment on above: Performed By: #### L 500.2500, L100.0100 #### [facility] [address] [place], [address] MCV (RBC) [Entitic vol] 93.8 fL Normal 81-99 [facility] Comment on above: Performed By: #### L 500.2500, L100.0100 #### [facility] [address] [place], [address] Monocytes/100 WBC (Bld) 7.2 % Normal 0-10 [facility] Comment on above: Performed By: #### L 500.2500, L100.0100 #### [facility] [address] [place], [address] Neutrophils/100 WBC (Bld) 66.5 % Normal 47-70 [facility] Comment on above: Performed By: #### L 500.2500, L100.0100 #### [facility] [address] [place], [address] Nucleated RBC (Bld) [#/Vol] 0 10*3/uL Normal 0-5 [facility] Comment on above: Performed By: #### L 500.2500, L100.0100 #### [facility] [address] [place], [address] Platelet mean volume (Bld) [Entitic vol] 10.2 fL Normal 6.2-12.0 [facility] Comment on above: Performed By: #### L 500.2500, L100.0100 #### [facility] [address] [place], [address] Platelets (Bld) [#/Vol] 163 10*3/uL Normal 150-450 [facility] Comment on above: Performed By: #### L 500.2500, L100.0100 #### [facility] [address] [place], [address] RBC (Bld) [#/Vol] 3.72 10*6/uL Low 4.2-5.4 [facility] Comment on above: Performed By: #### L 500.2500, L100.0100 #### [facility] [address] [place], [address] RDW SD 45.8 fl High 35.1-43.9 [facility] Comment on above: Performed By: #### L 500.2500, L100.0100 #### [facility] [address] [place], [address] WBC (Bld) [#/Vol] 7.2 10*3/uL Normal 4.4-11.0 [facility] Comment on above: Performed By: #### L 500.2500, L100.0100 #### [facility] [address] [place], [address] Carbon dioxide, total [Moles /volume] in Central venous bloodOrdered By: Nico Hudson on 03-16-2025 CO2 [Moles/Vol] 25.0 mmol/L 21.0-32.0 [facility] Chloride assayOrdered By: Aníbal Hudson on 03-16-2025 Chloride [Moles/Vol] 106 mmol/L 98-108 [facility] Eosinophil percentageOrdered By: Nico Hudson on 03-16-2025 Eosinophils/100 WBC (Bld) 1.5 % 0-5 [facility] Erythrocyte distribution wid th ratioOrdered By: Nico Hudson on 03-16-2025 Erythrocyte distribution width (RBC) [Ratio] 13.6 % 11.6-14.6 [facility] Erythrocyte distribution wid th standard deviationOrdered By: Nico Hudson on 03-16-2025 Erythrocyte distribution width (RBC) [Ratio] 45.8 fl High 35.1-43.9 [facility] Glomerular filtration rate ( GFR) estimation/1.73 sq m using serum, plasma, or whole bOrdered By: Nico Hudson on 03-16-2025 GFR/1.73 sq M.predicted among non-blacks MDRD (S/P/Bld) [Vol rate/Area] 52 mL/min/{1.73_m2} Low >60 [facility] Comment on above: mL/min/1.73m2 CKD-EP I Creatinine Equation (2020) Glucose measurement at bedsi deOrdered By: Scooter Lim on 03-16-2025 Glucose [Mass/Vol] 154 mg/dL High 74-106 [facility] Comment on above: MANAGEMENT OF PATIEN T CARE PER NURSING PROTOCOL Hematocrit Auto (Bld) [Volum e fraction]Ordered By: Nico Hudson on 03-16-2025 Hematocrit (Bld) [Volume fraction] 34.9 % Low 37-47 [facility] Hemoglobin measurementOrdere d By: Nico Hudson on 03-16-2025 Hemoglobin (Bld) [Mass/Vol] 11.5 g/dL Low 12.0-15.0 [facility] Immature granulocytes/100 WB C Auto (Bld)Ordered By: Nico Hudson on 03-16-2025 Immature granulocytes/100 WBC (Bld) 0.600 % 0.0-0.9 [facility] Comment on above: IG% - Immature Granu locytes (promyelocytes, myelocytes and metamyelocytes) > 1% indicates that a LEFT SHIFT is Present. International normalized rat io (INR) calculationOrdered By: Scooter Lim on 03-16-2025 INR Coag (Bld) [Relative time] 1.0 {INR} [facility] Ketones Test strip Ql (U)Ord ered By: Scooter Lim on 03-16-2025 Ketones Ql (U) Negative Negative [facility] MCV (mean corpuscular volume ) determinationOrdered By: Nico Hudson on 03-16-2025 MCV (RBC) [Entitic vol] 93.8 fL 81-99 [facility] Mean corpuscular hemoglobin (MCH) determinationOrdered By: Nico Hudson on 03-16-2025 MCH (RBC) [Entitic mass] 30.9 pg 27.0-32.0 [facility] Mean corpuscular hemoglobin concentration (MCHC) determinationOrdered By: Nico Hudson on 03-16-2025 MCHC (RBC) [Mass/Vol] 33.0 g/dL 32-36 [facility] Mean platelet volume determi nationOrdered By: Nico Hudson on 03-16-2025 Platelet mean volume (Bld) [Entitic vol] 10.2 fL 6.2-12.0 [facility] Microscopic analysis of urin e for red blood cells (RBC)Ordered By: Scooter Lim on 03-16-2025 Microscopic analysis of urine for red blood cells (RBC) > 100 SEEN /hpf 0-5 [facility] Monocyte percentageOrdered B y: Nico Hudson on 03-16-2025 Monocytes/100 WBC (Bld) 7.2 % 0-10 [facility] Mucus LM Ql (Urine sed)Order ed By: Scooter Lim on 03-16-2025 Mucus Ql (Urine sed) 0 SEEN /hpf [facility] Neutrophil percentageOrdered By: Nico Hudson on 03-16-2025 Neutrophils/100 WBC (Bld) 66.5 % 47-70 [facility] Nitrite Test strip Ql (U)Ord ered By: Scooter Lim on 03-16-2025 Nitrite Ql (U) Negative Negative [facility] Nucleated red blood cell per centageOrdered By: Nico Hudson on 03-16-2025 Nucleated RBC/100 WBC (Bld) [Ratio] 0 % 0-5 [facility] Partial Thromboplast Timeon 03-16-2025 aPTT Coag (Bld) [Time] 27.0 s Normal 24.1-36.2 [facility] Comment on above: Performed By: #### L 300.3900, L300.4310 #### [facility] [address] [place] [address], [id number] Platelet countOrdered By: Aníbal Hudson on 03-16-2025 Platelets (Bld) [#/Vol] 163 10*3/uL 150-450 [facility] Potassium measurement (mass/ volume)Ordered By: Nico Hudson on 03-16-2025 Potassium (Unsp spec) [Mass/Vol] 4.2 mmol/L 3.3-5.1 [facility] Protein Test strip Ql (U)Ord ered By: Scooter Lim on 03-16-2025 Protein Ql (U) 30 mg/dl High Negative [facility] Prothrombin Time w/INRon INR Coag (PPP) [Relative time] 1.0 {INR} Normal [facility] Comment on above: Performed By: #### L 300.3900, L300.4310 #### [facility] [address] [place], [address] PT Coag (PPP) [Time] 13.1 s Normal 11.7-14.9 [facility] Comment on above: Performed By: #### L 300.3900, L300.4310 #### [facility] [address] [place], [address] Prothrombin timeOrdered By: Scooter Lim on 03-16-2025 PT Coag (PPP) [Time] 13.1 s 11.7-14.9 [facility] RBC Auto (Bld) [#/Vol]Ordere d By: Nico Hudson on 03-16-2025 RBC (Bld) [#/Vol] 3.72 10*6/uL Low 4.2-5.4 [facility] Serum creatinine measurement (mass/volume)Ordered By: Nico Hudson on 03-16-2025 Creatinine [Mass/Vol] 1.09 mg/dL 0.70-1.20 [facility] Serum glucose measurement (m ass/volume)Ordered By: Nico Hudson on 03-16-2025 Glucose [Mass/Vol] 128 mg/dL High 70-99 [facility] Serum or plasma calcium will urement (mass/volume)Ordered By: Nico Hudson on 03-16-2025 Calcium [Mass/Vol] 8.8 mg/dL 7.6-11.0 [facility] Serum or plasma urea nitroge n measurement (mass/volume)Ordered By: Nico Hudson on 03-16-2025 Urea nitrogen [Mass/Vol] 27 mg/dL High 4-19 [facility] Sodium levelOrdered By: Nico Hudson on 03-16-2025 Sodium [Moles/Vol] 143 mmol/L 133-145 [facility] Squamous epithelial cells de tection in urine sediment by light microscopyOrdered By: Scooter Lim on 03-16-2025 Epithelial cells.squamous LM Ql (Urine sed) 0-5 SEEN /hpf 5-10 [facility] Urinalysis, Completeon 03-16 Mucus Ql (Urine sed) 0 SEEN Normal [facility] Comment on above: Order Comment: CLEAN CATCH Performed By: #### L 400.0001 ####[facility] [address] [place], [address] Urine clarityOrdered By: Reji Lim on 03-16-2025 Clarity (U) Sl. Cloudy Clear [facility] Urine color determinationOrd ered By: Scooter Lim on 03-16-2025 Color (U) Yellow Yellow [facility] Urine cultureOrdered By: Reji Lim on 03-16-2025 Bacteria identified Cx Nom (U) Escherichia coli Abnormal [facility] Urine glucose detectionOrder ed By: Scooter Lim on 03-16-2025 Glucose Ql (U) Normal mg/dl Normal [facility] Urine leukocyte esterase det ection by dipstickOrdered By: Scooter Lim on 03-16-2025 Leukocyte esterase Test strip Ql (U) 500 /ul High Negative [facility] Urine pHOrdered By: Scooter montenegro on 03-16-2025 pH (U) 6.5 [pH] 5.0 - 8.0 [facility] Urine sediment bacteria coun t by microscopy (number/high power field)Ordered By: Scooter Lim on 03-16-2025 Bacteria LM.HPF (Urine sed) [#/Area] 2 /[HPF] None Seen [facility] Urine specific gravity measu rementOrdered By: Scooter Lim on 03-16-2025 Specific gravity (U) [Rel density] 1.015 1.002-1.030 [facility] Urine urobilinogen measureme ntOrdered By: Scooter Lim on 03-16-2025 Urobilinogen Ql (U) Normal mg/dl Normal [facility] White blood cell (WBC) count Ordered By: Nico Hudson on 03-16-2025 WBC (Bld) [#/Vol] 7.2 10*3/uL 4.4-11.0 [facility] White blood cell countOrdere d By: Scooter Lim on 03-16-2025 White blood cell count >100 SEEN /hpf 0-5 [facility] C-REACTIVE PROTEINon 025 CRP [Mass/Vol] 1.8 mg/dL High NINF - 0.9 mg/dL [facility] CBC panel Auto (Bld)on 12-30 Erythrocyte distribution width (RBC) [Ratio] 13.8 % 11.5 - 15.0 % [facility] Hematocrit (Bld) [Volume fraction] 36.1 % 36.0 - 46.0 % [facility] Hemoglobin (Bld) [Mass/Vol] 11.6 g/dL 11.5 - 15.5 g/dL [facility] Interpretation and review of laboratory results Abnormal [facility] MCH (RBC) [Entitic mass] 29.9 pg 26.0 - 34.0 pg [facility] MCHC (RBC) [Mass/Vol] 32.1 g/dL 30.5 - 36.0 g/dL [facility] MCV (RBC) [Entitic vol] 93 fL 80.0 - 100.0 fL [facility] Nucleated RBC (Bld) [#/Vol] NINF [facility] Platelet mean volume (Bld) [Entitic vol] 10.6 fL 9.0 - 12.7 fL [facility] Platelets (Bld) [#/Vol] 188 10*3/uL [facility] RBC (Bld) [#/Vol] 3.88 10*6/uL Low 3.90 - 5.2 0 m/uL [facility] WBC (Bld) [#/Vol] 9.16 10*3/uL [facility] CK [Catalytic activity/Vol]o n 12-30-2024 Interpretation and review of laboratory results Normal [facility] CREATINE KINASE/CKon 025 CK [Catalytic activity/Vol] 61 U/L 42 - 196 U/L [facility] Comprehensive metabolic 2000 panelon 12-30-2024 Albumin [Mass/Vol] 4.1 g/dL 3.9 - 4.9 g/dL [facility] ALP [Catalytic activity/Vol] 113 U/L 34 - 123 U/L [facility] ALT [Catalytic activity/Vol] 25 U/L 7 - 38 U/L [facility] Anion gap [Moles/Vol] 11 mmol/L 8 - 15 mmol/L [facility] AST [Catalytic activity/Vol] 28 U/L 13 - 35 U/L [facility] Bilirubin [Mass/Vol] 0.3 mg/dL 0.2 - 1 .3 mg/dL [facility] Calcium [Mass/Vol] 10.2 mg/dL 8.5 - 10. 2 mg/dL [facility] Chloride [Moles/Vol] 106 mmol/L 98 - 10 7 mmol/L [facility] CO2 [Moles/Vol] 27 mmol/L 22 - 30 mmol/L [facility] Creatinine [Mass/Vol] 1.07 mg/dL High 0.58 - 0.96 mg/dL [facility] GFR/1.73 sq M.predicted among non-blacks MDRD (S/P/Bld) [Vol rate/Area] 54 mL/min/{1.73_m2} Low - PINF [facility] Comment on above: Estimated Glomerular Filtration Rate (eGFR) is calculated using the 2020 CKD-EPI creatinine equation. This equation utilizes serum creatinine, sex, and age as parameters. The creatinine assay has traceable calibration to isotope dilution-mass spectrometry. Refer to KDIGO guidelines for clinical interpretation. In patients with unstable renal function, e.g. those with acute kidney injury, the eGFR may not accurately reflect actual GFR. Glucose [Mass/Vol] 132 mg/dL High 74 - 99 mg/dL [facility] Comment on above: The [place] Di[employer] Association (ADA) provides guidance for cutoff values for fasting glucose and random glucose. The ADA defines fasting as no caloric intake for at least 8 hours. Fasting plasma glucose results between 100 to 125 mg/dL indicate increased risk for diabetes (prediabetes). Fasting plasma glucose results greater than or equal to 126 mg/dL meet the criteria for diagnosis of diabetes. In the absence of unequivocal hyperglycemia, results should be confirmed by repeat testing. In a patient with classic symptoms of hyperglycemia or hyperglycemic crisis, random plasma glucose results greater than or equal to 200 mg/dL meet the criteria for diagnosis of diabetes. Reference: Standards of Medical Care in Diabetes 2016, [place] [employer]. Diabetes Care. 2016.39(Suppl 1). Potassium [Moles/Vol] 4.2 mmol/L 3.7 - 5.1 mmol/L [facility] Protein [Mass/Vol] 6.9 g/dL 6.3 - 8.0 g/dL [facility] Sodium [Moles/Vol] 144 mmol/L 136 - 144 mmol/L [facility] Urea nitrogen [Mass/Vol] 25 mg/dL High 7 - 21 mg/dL [facility] ESR Westergren method (Bld) [Velocity]on 12-30-2024 ESR (Bld) [Velocity] 37 mm/h High [facility] Interpretation and review of laboratory results Abnormal [facility] No Panel Informationon 12-30 Interpretation and review of laboratory results Abnormal [facility] THYROID STIMULATING HORMONEo n 12-30-2024 TSH Qn 0.063 m[IU]/L Low [facility] TSH Qnon 12-30-2024 Interpretation and review of laboratory results Abnormal [facility] Abdomen/Pelvis W IV Cont ONL Yon 06-28-2024 Abdomen/Pelvis W IV Cont ONLY [facility] Imaging Services [address] [place] [address] [id number] Abdomen/Pelvis W IV Cont ONLY MR#: [id number] Acct: [id number] Name: BHAKTI KIRKPATRICK Rep #: [id number] : 1945 F 79 From: John Olmos MD PCP: Dr. Jesus Davila MD Status: REG ER Study: Abdomen/Pelvis W IV Cont ONLY Date of Exam: Exam# [id number] Ordering Dr: Wilber Izquierdo MD [id number] EXAM: CT ABDOMEN AND PELVIS WITH INTRAVENOUS CONTRAST CLINICAL INDICATION: Rectal Pain TECHNIQUE: Helically acquired images were obtained of the abdomen and pelvis with intravenous contrast. This CT exam was performed using one or more of the following dose reduction techniques: automated exposure control, adjustment of the mA and/or kV according to patient size, and/or use of iterative reconstruction technique. CONTRAST: IV 100mL Isovue-370 COMPARISON: No relevant prior studies available. FINDINGS: LOWER THORAX: Unremarkable. Lung bases are clear. No cardiomegaly. No significant pericardial effusion. ABDOMEN: LIVER: Unremarkable. Homogeneous. No focal mass. GALLBLADDER AND BILE DUCTS: There are surgical clips from a cholecystectomy. No intra- or extrahepatic biliary ductal dilation. PANCREAS: Unremarkable. No focal cystic or solid mass. SPLEEN: Unremarkable. Normal size without focal cystic or solid mass. ADRENALS: Unremarkable. No nodules. KIDNEYS AND URETERS: Unremarkable. Normal renal size and position. No hydronephrosis. STOMACH AND BOWEL: There is mild to moderate stool in the distal sigmoid colon and rectum which may represent developing fecal impaction. There is a moderate amount stool seen throughout the remainder of the colon compatible with constipation. There is thickening the wall of the rectum with surrounding inflammation which may represent proctitis. There is no abscess or fluid collection. There are sutures along the gastric wall. There are gas and fluid-filled loops of small bowel in the pelvis which. No stomach or bowel distention. PELVIS: APPENDIX: No evidence of acute appendicitis. BLADDER: Unremarkable. REPRODUCTIVE: Unremarkable as visualized. No mass. ABDOMEN and PELVIS: INTRAPERITONEAL SPACE: Unremarkable. No ascites or other fluid collection. No free air. BONES/JOINTS: There is a large amount of beam hardening artifact pelvis is bilateral hip replacements. No suspicious lytic or blastic abnormality. SOFT TISSUES: Unremarkable. No discrete abdominal or pelvic wall hernia. VASCULATURE: Unremarkable. Abdominal aorta is non-dilated. LYMPH NODES: Unremarkable. No enlarged lymph nodes. CT/Abdomen/Pelvis W IV Cont ONLY IMPRESSION: Thickening of the wall the rectum with surrounding inflammation which may represent proctitis. There is no abscess or fluid collection. There is moderate stool in the distal sigmoid colon which may represent developing fecal impaction. There is also moderate stool seen throughout the remainder of the colon compatible with constipation. Electronically Signed: John Olmos MD at 18:30 EDT , CC: Dr. Wilber Izquierdo MD; Dr. Jesus Davila MD [employer] Folder: Signed Normal [facility] CBC W/Diff, Automatedon - Absolute Lymph 0.92 X10 3/uL Normal 0.83-4.51 [facility] Comment on above: Performed By: #### L 100.0100, L500.4050 #### [facility] [address] [place], [place], [id number] Absolute Neut 6.2 X10 3/uL Normal 2.0-7.7 [facility] Comment on above: Performed By: #### L 100.0100, L500.4050 #### [facility] [address] [place], [address] Basophils/100 WBC (Bld) 0.3 % Normal 0-1 [facility] Comment on above: Performed By: #### L 100.0100, L500.4050 #### [facility] [address] [place], [address] Eosinophils/100 WBC (Bld) 0.6 % Normal 0-5 [facility] Comment on above: Performed By: #### L 100.0100, L500.4050 #### [facility] [address] [place], [address] Erythrocyte distribution width (RBC) [Ratio] 14.6 % Normal 11.6-14.6 [facility] Comment on above: Performed By: #### L 100.0100, L500.4050 #### [facility] [address] [place], [address] Hematocrit (Bld) [Volume fraction] 37.5 % Normal 37-47 [facility] Comment on above: Performed By: #### L 100.0100, L500.4050 #### [facility] [address] [place], [address] Hemoglobin (Bld) [Mass/Vol] 12.0 g/dL Normal 12.0-15.0 [facility] Comment on above: Performed By: #### L 100.0100, L500.4050 #### [facility] [address] [place], [address] IG% 0.800 Normal 0.0-0.9 [facility] Comment on above: Result Comment: IG% - Immature Granulocytes (promyelocytes, myelocytes and metamyelocytes) > 1% indicates that a LEFT SHIFT is Present. Performed By: #### L 100.0100, L500.4050 #### [facility] [address] [place], [address] Lymphocytes/100 WBC (Bld) 11.7 % Low 19-41 [facility] Comment on above: Performed By: #### L 100.0100, L500.4050 #### [facility] [address] [place], [address] MCH (RBC) [Entitic mass] 30.0 pg Normal 27.0-32.0 [facility] Comment on above: Performed By: #### L 100.0100, L500.4050 #### [facility] [address] [place], [address] MCHC (RBC) [Mass/Vol] 32.0 g/dL Normal 32-36 [facility] Comment on above: Performed By: #### L 100.0100, L500.4050 #### [facility] [address] [place], [address] MCV (RBC) [Entitic vol] 93.8 fL Normal 81-99 [facility] Comment on above: Performed By: #### L 100.0100, L500.4050 #### [facility] [address] [place], [address] Monocytes/100 WBC (Bld) 7.5 % Normal 0-10 [facility] Comment on above: Performed By: #### L 100.0100, L500.4050 #### [facility] [address] [place], [address] Neutrophils/100 WBC (Bld) 79.1 % High 47-70 [facility] Comment on above: Performed By: #### L 100.0100, L500.4050 #### [facility] [address] [place], [address] Nucleated RBC (Bld) [#/Vol] 0 10*3/uL Normal 0-5 [facility] Comment on above: Performed By: #### L 100.0100, L500.4050 #### [facility] [address] [place], [address] Platelet mean volume (Bld) [Entitic vol] 9.3 fL Normal 6.2-12.0 [facility] Comment on above: Performed By: #### L 100.0100, L500.4050 #### [facility] [address] [place], [address] Platelets (Bld) [#/Vol] 192 10*3/uL Normal 150-450 [facility] Comment on above: Performed By: #### L 100.0100, L500.4050 #### [facility] [address] [place], [address] RBC (Bld) [#/Vol] 4.00 10*6/uL Low 4.2-5.4 [facility] Comment on above: Performed By: #### L 100.0100, L500.4050 #### [facility] [address] [place], [address] RDW SD 50.7 fl High 35.1-43.9 [facility] Comment on above: Performed By: #### L 100.0100, L500.4050 #### [facility] [address] [place], [address] WBC (Bld) [#/Vol] 7.9 10*3/uL Normal 4.4-11.0 [facility] Comment on above: Performed By: #### L 100.0100, L500.4050 #### [facility] [address] [place], [address] Comprehensive Metabolic Prof ilon 06-28-2024 Albumin [Mass/Vol] 4.0 g/dL Normal 3.2-5.0 [facility] Comment on above: Performed By: #### L 100.0100, L500.4050 #### [facility] [address] [place], [address] Albumin/Globulin [Mass ratio] 1.1 {ratio} Normal 0.9-2.4 [facility] Comment on above: Performed By: #### L 100.0100, L500.4050 #### [facility] [address] [place], [address] ALK P 128 U/L High 45-117 [facility] Comment on above: Performed By: #### L 100.0100, L500.4050 #### [facility] [address] [place], [address] ALT [Catalytic activity/Vol] 34 U/L Normal 13-56 [facility] Comment on above: Performed By: #### L 100.0100, L500.4050 #### [facility] [address] [place], [address] AST [Catalytic activity/Vol] 26 U/L Normal 15-37 [facility] Comment on above: Performed By: #### L 100.0100, L500.4050 #### [facility] [address] [place], [address] Bilirubin [Mass/Vol] 0.40 mg/dL Normal 0.20-1.00 [facility] Comment on above: Result Comment: For patients on eltrombopag therapy, use of Dimension [place] TBIL is not recommended. Performed By: #### L 100.0100, L500.4050 #### [facility] [address] [place], [address] BUN/CRE 24.6 RATIO High 10-20 [facility] Comment on above: Performed By: #### L 100.0100, L500.4050 #### [facility] [address] [place], [address] CA,Total 10.0 mg/dL Normal 8.5-10.1 [facility] Comment on above: Performed By: #### L 100.0100, L500.4050 #### [facility] [address] [place], [address] Chloride [Moles/Vol] 108 mmol/L High 98-107 [facility] Comment on above: Performed By: #### L 100.0100, L500.4050 #### [facility] [address] [place], [address] CO2 [Moles/Vol] 28.0 mmol/L Normal 21.0-32.0 [facility] Comment on above: Performed By: #### L 100.0100, L500.4050 #### [facility] [address] [place], [address] Creatinine [Mass/Vol] 1.22 mg/dL High 0.55-1.02 [facility] Comment on above: Result Comment: The validity of the calculated GFR GFRAA in patients over 70 years has not been determined. Clinical correlation is essential. Performed By: #### L 100.0100, L500.4050 #### [facility] [address] [place], [address] ECRCL 38.24 ml/min Normal [facility] Comment on above: Performed By: #### L 100.0100, L500.4050 #### [facility] [address] [place], [address] EST GFR - AA 55 mL/min Low >60 [facility] Comment on above: Result Comment: Afri can [place] GFR Calc Performed By: #### L 100.0100, L500.4050 #### [facility] [address] [place], [address] GAP 6 Normal 5-15 [facility] Comment on above: Performed By: #### L 100.0100, L500.4050 #### [facility] [address] [place], [address] GFR/1.73 sq M.predicted among non-blacks MDRD (S/P/Bld) [Vol rate/Area] 45 mL/min/{1.73_m2} Low >60 [facility] Comment on above: Result Comment: Non- GFR Calc Performed By: #### L 100.0100, L500.4050 #### [facility] [address] [place], [address] Globulin (S) [Mass/Vol] 3.5 g/dL Normal 2.2-4.2 [facility] Comment on above: Performed By: #### L 100.0100, L500.4050 #### [facility] [address] [place], [address] Glucose [Mass/Vol] 124 mg/dL High 74-106 [facility] Comment on above: Result Comment: Fast ing Glucose result from 100 to 125 mg/dL suggests IMPAIRED HOMEOSTASIS per A.D.A. criteria. Performed By: #### L 100.0100, L500.4050 #### [facility] [address] [place], [address] Potassium [Moles/Vol] 4.0 mmol/L Normal 3.5-5.1 [facility] Comment on above: Performed By: #### L 100.0100, L500.4050 #### [facility] [address] [place], [address] Sodium [Moles/Vol] 142 mmol/L Normal 136-145 [facility] Comment on above: Performed By: #### L 100.0100, L500.4050 #### [facility] [address] [place], [address] T PROT 7.5 g/dL Normal 6.4-8.2 [facility] Comment on above: Performed By: #### L 100.0100, L500.4050 #### [facility] [address] [place], [address] Urea nitrogen [Mass/Vol] 30 mg/dL High 7-18 [facility] Comment on above: Performed By: #### L 100.0100, L500.4050 #### [facility] [address] [place], [address] Emergency Department Summary on 06-28-2024 Emergency Department Summary [facility] Medical Records Department [address] [place] [address] Emergency Department Summary 06/28/24 MR#: [id number] Acct: [id number] Name: BHAKTI KIRKPATRICK Rep #: [id number] : 1945 [id number] From: Wilber Izquierdo MD PCP: Dr. Jesus Davila MD Status:REG ER Location: ED HPI HPI - GI History of Present Illness Chief Complaint: Other, Pain/Inj Narrative Narrative: 79-year-old female presents with rectal pain, abdominal pain and bloating that she has had for the last week. She states that approximately a week ago she had a sharp pain in her rectum, and she is only able to have a bowel movement when she has the pain. She denies any fevers or chills, no nausea or vomiting, no exacerbating or alleviating factors. She has had multiple surgeries to her abdomen in the past including gastric sleeve. She also has past medical history of diabetes and chronic kidney disease. She states that nothing really makes it better or worse but she has had rectal pain that sharp and stabbing, and also feels pain in her colon as well. History and physical is mildly limited secondary to dementia. 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 hernioplasty mesh CKD stage 3 due to type 2 diabetes mellitus Diverticulitis large intestine Chronic diastolic (congestive) heart failure Essential (primary) hypertension Pulmonary hypertension ABDI (obstructive sleep apnea) Dyspnea Small bowel obstruction Bowel obstruction Osteoarthritis Pneumonia Sensorineural hearing loss (SNHL), bilateral Myalgia Fatty liver Edema Depressive disorder Degenerative arthritis of knee Degenerative arthritis of hip Allergic contact dermatitis due to metals CKD (chronic kidney disease) stage 3, GFR 30-59 ml/min SBO (small bowel obstruction) History of thyroid cancer Morbid obesity Type 2 diabetes mellitus Home Medications ???Medication ???Instructions ???Recorded ???Last Taken ???Type nqbdmjwy-pdyyytlu-fm on 45 mg-folic 1 ea PO DAILY vitamins 06/06/19 06/14/20 History acid 800 mcg-vit K 120 mcg capsule calcium 315 mg (as 2 ea PO BID vitamin 07/04/19 06/14/20 History citrate)-vitamin D3 6.25 mcg (250 unit) tablet metoprolol tartrate 25 mg tablet 25 mg PO BID 07/04/19 Unknown History fluticasone propionate 50 2 spray intranasal DAILY PRN 07/23/19 Unknown History mcg/actuation nasal Allergies spray,suspension (Flonase Allergy Relief) diphenhydramine HCl 25 mg tablet 25 mg PO DAILY PRN Itching 06/04/20 Unknown History (Benadryl Allergy) nitroglycerin 0.4 mg sublingual 0.4 mg sublingual Q5-15M PRN Pain 06/04/20 Unknown History tablet Score 1-06/19 polyethylene glycol 3350 17 17 g PO DAILY bm 06/04/20 06/14/20 History gram/dose oral powder (Miralax) aspirin 81 mg chewable tablet 81 mg PO DAILY 08/26/21 Unknown History diclofenac sodium 1 % topical gel 2 g topical 4X/DAY PRN Pain 08/26/21 Unknown History (Arthritis Pain (diclofenac)) duloxetine 60 mg capsule,delayed 60 mg PO DAILY 08/26/21 Unknown History release ferrous sulfate 325 mg (65 mg 325 mg PO BID 08/26/21 Unknown History iron) tablet meclizine 25 mg tablet 12.5 mg PO DAILY PRN Dizziness 12/27/21 Unknown History memantine 5 mg tablet 10 mg PO BID 12/27/21 Unknown History clindamycin HCl 150 mg capsule 150 mg PO .COMPLEX 10/04/22 Unknown History allopurinol 300 mg tablet 300 mg PO DAILY 10/25/23 Unknown History colchicine 0.6 mg tablet 0.6 mg PO DAILY PRN gout 10/25/23 Unknown History insulin aspart U-100 100 unit/mL 17 unit subcut TID diabetes 10/25/23 Unknown History (3 mL) subcutaneous pen ketoconazole 2 % shampoo topical 10/25/23 Unknown History levothyroxine 175 mcg tablet 175 mcg PO DAILY 10/25/23 Unknown History evolocumab 140 mg/mL subcutaneous 140 mg subcut Q2W #2 mL 10/31/23 Unknown Rx pen injector (Repatha SureClick) polyethylene glycol 3350 17 17 g PO DAILY 01/15/24 Unknown History gram/dose oral powder (Miralax) Allergy/AdvReac Type Severity Reaction Status Date / Time adhesive Allergy Hives Verified 06/28/24 14:18 ampicillin Allergy Rash Verified 06/28/24 14:18 cephalexin monohydrate (From Allergy Hives Verified 06/28/24 14:18 Keflex) ciprofloxacin (From Cipro) Allergy Swelling Verified 06/28/24 14:18 Environmental Allergies: Allergy Other Verified 06/28/24 14:18 Uncoded (metals) ketorolac tromethamine (From Allergy Hives Verified 06/28/24 14:18 (more content not included)... Normal [facility] Urinalysis, Completeon 06-28 BACTERIA Normal None Seen [facility] Comment on above: Order Comment: BERNIE MONTES TO SPECIFY Result Comment: PT. DISCHARGED Performed By: #### L 400.0001 #### [facility] [address] [place], [place], [id number] BILIRUBIN URINE Normal Negative [facility] Comment on above: Order Comment: BERNIE MONTES TO SPECIFY Result Comment: PT. DISCHARGED Performed By: #### L 400.0001 #### [facility] [address] [place], [address] Clarity (U) Normal Clear [facility] Comment on above: Order Comment: BERNIE MONTES TO SPECIFY Result Comment: PT. DISCHARGED Performed By: #### L 400.0001 #### [facility] [address] [place], [address] Color (U) Normal Yellow [facility] Comment on above: Order Comment: BERNIE CTOR TO SPECIFY Result Comment: PT. DISCHARGED Performed By: #### L 400.0001 #### [facility] [address] [place], [address] EPI,SQUAMOUS Normal 5-10 [facility] Comment on above: Order Comment: COLLE CTOR TO SPECIFY Result Comment: PT. DISCHARGED Performed By: #### L 400.0001 #### [facility] [address] [place], [address] GLUCOSE, UR Normal Normal [facility] Comment on above: Order Comment: BERNIE CTOR TO SPECIFY Result Comment: PT. DISCHARGED Performed By: #### L 400.0001 #### [facility] [address] [place], [address] KETONE UR Normal Negative [facility] Comment on above: Order Comment: BERNIE CTOR TO SPECIFY Result Comment: PT. DISCHARGED Performed By: #### L 400.0001 #### [facility] [address] [place], [address] LEUK ESTERASE Normal Negative [facility] Comment on above: Order Comment: BERNIE CTOR TO SPECIFY Result Comment: PT. DISCHARGED Performed By: #### L 400.0001 #### [facility] [address] [place], [address] Mucus Ql (Urine sed) Normal [facility] Comment on above: Order Comment: BERNIE CTOR TO SPECIFY Result Comment: PT. DISCHARGED Performed By: #### L 400.0001 #### [facility] [address] [place], [address] Nitrite Ql (U) Normal Negative [facility] Comment on above: Order Comment: BERNIE CTOR TO SPECIFY Result Comment: PT. DISCHARGED Performed By: #### L 400.0001 #### [facility] [address] [place], [address] OCCULT BLOOD-UR Normal Negative [facility] Comment on above: Order Comment: BERNIE CTOR TO SPECIFY Result Comment: PT. DISCHARGED Performed By: #### L 400.0001 #### [facility] [address] [place], [address] pH UR Normal 5.0 - 8.0 [facility] Comment on above: Order Comment: BERNIE CTOR TO SPECIFY Result Comment: PT. DISCHARGED Performed By: #### L 400.0001 #### [facility] [address] [place], [address] PROT DIPSTX Normal Negative [facility] Comment on above: Order Comment: BERNIE CTOR TO SPECIFY Result Comment: PT. DISCHARGED Performed By: #### L 400.0001 #### [facility] [address] [place], [address] RBC Normal 0-5 [facility] Comment on above: Order Comment: BERNIE CTOR TO SPECIFY Result Comment: PT. DISCHARGED Performed By: #### L 400.0001 #### [facility] [address] [place], [address] SP.GR. DIPSTX Normal 1.002-1.030 [facility] Comment on above: Order Comment: BERNIE CTOR TO SPECIFY Result Comment: PT. DISCHARGED Performed By: #### L [id number] #### [facility] [address] [place], [address] UR Preservative Normal [facility] Comment on above: Order Comment: BERNIE CTOR TO SPECIFY Result Comment: PT. DISCHARGED Performed By: #### L 400.0001 #### [facility] [address] [place], [address] UROBILI Normal Normal [facility] Comment on above: Order Comment: BERNIE CTOR TO SPECIFY Result Comment: PT. DISCHARGED Performed By: #### L 400.0001 #### [facility] [address] [place], [address] WBC Normal 0-5 [facility] Comment on above: Order Comment: BERNIE CTOR TO SPECIFY Result Comment: PT. DISCHARGED Performed By: #### L 400.0001 #### [facility] [address] [place], [address] Cardiology Visit Reporton Cardiology Visit Report [facility] [address] [place], [place] [address] OFFICE VISIT Date of Service: 05/13/24 MR#: [id number] Acct: [id number] Name: BHAKTI KIRKPATRICK Rep #: [id number] : 1945 Provider: JC Oviedo Age/Sex: 79/F Location: [facility] [place] Status: Signed HPI HPI History of Present Illness Details: Bhakti Kirkpatrick is a 79-year-old white female who presents today for outpatient cardiovascular follow- up of CAD (nonangiographically significant appearing), chronic diastolic mediated CHF, hyperlipidemia, hypertension, ABDI, pulmonary hypertension, and chronic renal insufficiency. Pt had one episode of substernal chest pain last week, this lasted approx 5-10 minutes. She does not have any worsening SOB. She did take NTG a few months ago, this was for palpitations. These did not last long. She does not have any lightheadedness/dizz iness. She does not have any edema. She is able to do ADLS without problems. She has lost weight. Intake Vital Signs 01/15/24 21:34 05/13/24 08:49 Height 5 ft 2 in 5 ft 2 in Weight: 183 lb BMI 33.5 BP 129/80 H Blood Pressure Location Lt brachial Position Sitting Respiration 18 Pulse 93 Pulse Source Monitor Pulse Oximetry (%) 94 Intake Visit Reasons: 6 M FU Quality Analyst Required: No Is patient in pain?: No Allergies adhesive Allergy (Verified 05/13/24 13:37) Hives ampicillin Allergy (Verified 05/13/24 13:37) Rash cephalexin monohydrate (From Keflex) Allergy (Verified 05/13/24 13:37) Hives ciprofloxacin (From Cipro) Allergy (Verified 05/13/24 13:37) Swelling Environmental Allergies: Uncoded (metals) Allergy (Verified 05/13/24 13:37) Other ketorolac tromethamine (From Toradol) Allergy (Verified 05/13/24 13:37) Hives nickel (Nickel) Allergy (Verified 05/13/24 13:37) Other insulin glargine (From Lantus U-100 Insulin) Adverse Reaction (Verified 05/13/24 13:37) Other Cguhkzi-ZKL-AqI Reductase Inhibitor (Uokfnrw-Rbk-Ewi Reductase Inhibitor) Adverse Reaction (Verified 05/13/24 13:37) Other Medications ???Medication ???Instructions ???Recorded ???Confirmed ???Type jikumfdl-vdjdsmzv-ai on 45 mg-folic 1 ea PO DAILY vitamins 06/06/19 05/13/24 History acid 800 mcg-vit K 120 mcg capsule calcium citrate 315 mg 2 ea PO BID vitamin 07/04/19 05/13/24 History calcium-vitamin D3 6.25 mcg (250 unit) tablet metoprolol tartrate 25 mg tablet 25 mg PO BID 07/04/19 05/13/24 History fluticasone propionate 50 2 spray intranasal DAILY PRN 07/23/19 05/13/24 History mcg/actuation nasal Allergies spray,suspension (Flonase Allergy Relief) diphenhydramine HCl 25 mg tablet 25 mg PO DAILY PRN Itching 06/04/20 05/13/24 History (Benadryl Allergy) nitroglycerin 0.4 mg sublingual 0.4 mg sublingual Q5-15M PRN Pain 06/04/20 05/13/24 History tablet Score 1-10/10 polyethylene glycol 3350 17 17 g PO DAILY bm 06/04/20 05/13/24 History gram/dose oral powder (Miralax) aspirin 81 mg chewable tablet 81 mg PO DAILY 08/26/21 05/13/24 History diclofenac sodium 1 % topical gel 2 g topical 4X/DAY PRN Pain 08/26/21 05/13/24 History (Arthritis Pain (diclofenac)) duloxetine 60 mg capsule,delayed 60 mg PO DAILY 08/26/21 05/13/24 History release ferrous sulfate 325 mg (65 mg 325 mg PO BID 08/26/21 05/13/24 History iron) tablet meclizine 25 mg tablet 12.5 mg PO DAILY PRN Dizziness 12/27/21 05/13/24 History memantine 5 mg tablet 10 mg PO BID 12/27/21 05/13/24 History clindamycin HCl 150 mg capsule 150 mg PO .COMPLEX 10/04/22 05/13/24 History allopurinol 300 mg tablet 300 mg PO DAILY 10/25/23 05/13/24 History colchicine 0.6 mg tablet 0.6 mg PO DAILY PRN gout 10/25/23 05/13/24 History insulin aspart U-100 100 unit/mL 17 unit subcut TID diabetes 10/25/23 05/13/24 History (3 mL) subcutaneous pen ketoconazole 2 % shampoo topical 10/25/23 05/13/24 History levothyroxine 175 mcg tablet 175 mcg PO DAILY 10/25/23 05/13/24 History evolocumab 140 mg/mL subcutaneous 140 mg subcut Q2W #2 mL 10/31/23 05/13/24 Rx pen injector (Repeviea TongbanjieAriick) polyethylene glycol 3350 17 17 g PO DAILY 01/15/24 05/13/24 History gram/dose oral powder (Miralax) Have you fallen in the past year?: No [facility] Medical History Dementia without behavioral disturbance Urine frequency Respiratory infection Mixed hyperlipidemia Chronic sinusitis 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 Normal [facility] XR Chest PA and Lateralon IMPRESSION: Mild right basilar atelectasis. Dishcloth Folder: PSCB Transcribe Date/Time: Apr 03 2024 10:21A Dictated by : CLAUDETTE POE MD This examination was interpreted and the report reviewed and electronically signed by: CLAUDETTE POE MD on Apr 03 2024 10:24AM [facility] * * *Final Report* * * DATE OF EXAM: Apr 03 2024 10:09AM WOX [id number] - XR CHEST 2V FRONTAL/LAT / PROCEDURE REASON: Acute cough * * * * Physician Interpretation * * * * EXAMINATION: CHEST RADIOGRAPH (2 VIEW FRONTAL & LATERAL) CLINICAL HISTORY: Acute cough MQ: XC2_6 EXAM DATE/TIME: 04/03/2024 10:09 AM COMPARISON: Chest x-ray on 01/23/2024 RESULT: Lines, tubes, and devices: None. Lungs and pleura: There appears be mild right basilar atelectasis. No definite consolidation. No lung mass. No pleural effusion. No pneumothorax. There are large pericardial fat pads. Cardiomediastinal silhouette: Unremarkable cardiomediastinal silhouette. Bones and soft tissues: The spine shows degenerative changes. DIVISION OF RADIOLOGY Provider, [facility] [place] - 04/03/2024 * * *Final Report* * * DATE OF EXAM: Apr 03 2024 10:09AM WOX 5291 - XR CHEST 2V FRONTAL/LAT / PROCEDURE REASON: Acute cough * * * * Physician Interpretation * * * * EXAMINATION: CHEST RADIOGRAPH (2 VIEW FRONTAL & LATERAL) CLINICAL HISTORY: Acute cough MQ: XC2_6 EXAM DATE/TIME: 04/03/2024 10:09 AM COMPARISON: Chest x-ray on 01/23/2024 RESULT: Lines, tubes, and devices: None. Lungs and pleura: There appears be mild right basilar atelectasis. No definite consolidation. No lung mass. No pleural effusion. No pneumothorax. There are large pericardial fat pads. Cardiomediastinal silhouette: Unremarkable cardiomediastinal silhouette. Bones and soft tissues: The spine shows degenerative changes. IMPRESSION IMPRESSION: Mild right basilar atelectasis. Dishcloth [facility] Transcribe Date/Time: Apr 03 2024 10:21A Dictated by : CLAUDETTE POE MD This examination was interpreted and the report reviewed and electronically signed by: CLAUDETTE POE MD on Apr 03 2024 10:24AM EST [facility] Radiology Study observation (narrative) Rhoda lopez [facility] XR Chest PA and LateralOrder ed By: [facility] Provider on 04-03-2024 [facility] Absolute lymphocyte countOrd ered By: Scooter Lim on 01-15-2024 Lymphocytes Auto (Unsp spec) [#/Vol] 2.28 10*3/uL 0.83-4.51 [facility] Automated lymphocyte count a s percentage of total leukocytesOrdered By: Scooter Lim on 01-15-2024 Lymphocytes/100 WBC Auto (Unsp spec) 33.0 % 19-41 [facility] Basophil percentageOrdered B y: Scooter Lim on 01-15-2024 Basophils/100 WBC (Bld) 0.6 % 0-1 [facility] Bilirubin [Mass/Vol] 0.40 mg/dL 0.20-1.00 [facility] Comment on above: For patients on eltr ombopag therapy, use of Dimension [place] TBIL is not recommended. Chloride [Moles/Vol] 108 mmol/L 98-107 [facility] Eosinophils/100 WBC (Bld) 3.2 % 0-5 [facility] Glucose [Mass/Vol] 182 mg/dL 74-106 [facility] Comment on above: Fasting Glucose resu lt greater than or equal to 126 mg/dL suggests DIABETES MELLITUS per A.D.A. criteria. Hemoglobin (Bld) [Mass/Vol] 11.3 g/dL 12.0-15.0 [facility] Monocytes/100 WBC (Bld) 8.1 % 0-10 [facility] Neutrophils (Bld) [#/Vol] 3.8 10*3/uL 2.0-7.7 [facility] Neutrophils/100 WBC (Bld) 54.7 % 47-70 [facility] Potassium [Moles/Vol] 3.9 mmol/L 3.5-5.1 [facility] Protein [Mass/Vol] 6.6 g/dL 6.4-8.2 [facility] Sodium [Moles/Vol] 142 mmol/L 136-145 [facility] WBC (Bld) [#/Vol] 6.9 10*3/uL 4.4-11.0 [facility] Determination of erythrocyte mean corpuscular volume (MCV)Ordered By: Scooter iLm on 01-15-2024 MCV (RBC) [Entitic vol] 95.0 fL 81-99 [facility] Direct bilirubinOrdered By: Scooter Lim on 01-15-2024 Bilirubin.direct [Mass/Vol] 0.10 mg/dL 0.00-0.30 [facility] Erythrocyte distribution wid th ratioOrdered By: Scooter Lim on 01-15-2024 Erythrocyte distribution width (RBC) [Ratio] 13.9 % 11.6-14.6 [facility] Erythrocyte distribution wid th standard deviationOrdered By: Scooter Lim on 01-15-2024 Erythrocyte distribution width (RBC) [Entitic vol] 47.0 fL 35.1-43.9 [facility] Hematocrit Auto (Bld) [Volum e fraction]Ordered By: Scooter Lim on 01-15-2024 Hematocrit (Bld) [Volume fraction] 34.0 % 37-47 [facility] Immature granulocytes/100 WB C Auto (Bld)Ordered By: Scooter Lim on 01-15-2024 Immature granulocytes/100 WBC (Bld) 0.400 % 0.0-0.9 [facility] Comment on above: IG% - Immature Granu locytes (promyelocytes, myelocytes and metamyelocytes) > 1% indicates that a LEFT SHIFT is Present. Laboratory - Chemistry and C hemistry - challengeOrdered By: Scooter Lim on 01-15-2024 ALP [Catalytic activity/Vol] 110 U/L 45-117 [facility] ALT [Catalytic activity/Vol] 34 U/L 13-56 [facility] CO2 [Moles/Vol] 28.0 mmol/L 21.0-32.0 [facility] Globulin (S) [Mass/Vol] 3.1 g/dL 2.2-4.2 [facility] Lipase [Catalytic activity/Vol] 40 U/L 13-75 [facility] Comment on above: Please note:LIPASE r evised reference range effective 22. New Lipase methodology. Expected to produce lower values than the previous assay method. NEW Reference Range: 13 - 75 U/L Urea nitrogen/Creatinine [Mass ratio] 22.0 mg/mg 10-20 [facility] - Hematology and Cell countsOrdered By: Scooter Lim on 01-15-2024 MCH (RBC) [Entitic mass] 31.6 pg 27.0-32.0 [facility] MCHC (RBC) [Mass/Vol] 33.2 g/dL 32-36 [facility] Nucleated RBC/100 WBC (Bld) [Ratio] 0 % 0-5 [facility] Platelet mean volume (Bld) [Entitic vol] 10.4 fL 6.2-12.0 [facility] Platelets (Bld) [#/Vol] 176 10*3/uL 150-450 [facility] No Panel InformationOrdered By: Scooter Lim on 01-15-2024 Estimated Creatinine Clearance Calc 46.54 ml/min [facility] Estimated GFR (MDRD) Amer 63 mL/min >60 [facility] Comment on above: GFR Calc Estimated GFR (MDRD) Non-Af Amer 52 mL/min >60 [facility] Comment on above: Non- GFR Calc Troponin I High Sensitivity 7 pg/mL 3.0-54.0 [facility] Comment on above: Please Note: New Aniceto t Units and Gender Specific Reference Ranges. For more information see Policy Stat Procedure [place] High Sensitivity Troponin (TNIH) and attachments. RBC Auto (Bld) [#/Vol]Ordere d By: Scooter Lim on 01-15-2024 RBC (Bld) [#/Vol] 3.58 10*6/uL 4.2-5.4 [facility] Serum or plasma calcium will urement (mass/volume)Ordered By: Scooter Lim on 01-15-2024 Calcium [Mass/Vol] 9.1 mg/dL 8.5-10.1 [facility] Serum or plasma creatinine m easurement (mass/volume)Ordered By: Scooter Lim on 01-15-2024 Creatinine [Mass/Vol] 1.09 mg/dL 0.55-1.02 [facility] Comment on above: The validity of the calculated GFR & GFRAA in patients over 70 years has not been determined. Clinical correlation is essential. Serum or plasma urea nitroge n measurement (mass/volume)Ordered By: Scooter Lim on 01-15-2024 Urea nitrogen [Mass/Vol] 24 mg/dL 7-18 [facility] Thin prep Papanicolaou smear with manual screeningOrdered By: Scooter Lim on 01-15-2024 Thin prep Papanicolaou smear with manual screening 3.5 g/dL 3.2-5.0 [facility] Thin prep Papanicolaou smear with manual screening 34 U/L 15-37 [facility] Thin prep Papanicolaou smear with manual screening 6 5-15 [facility] XR Pelvis and Hip - left AP and Lateral frogon 01-14-2024 IMPRESSION: No acute osseous abnormality. Degenerative disease of the left hip. Dishcloth Folder: DOTTY Transcribe Date/Time: Jan 14 2024 8:19A Dictated by : TRACY HOLLINGSWORTH MD This examination was interpreted and the report reviewed and electronically signed by: TRACY HOLLINGSWORTH MD on Jan 14 2024 8:21AM [facility] * * *Final Report* * * DATE OF EXAM: Jan 09 2024 11:07AM WOX 5351 - XR HIP 3V PELV+ AP/LAT LT / PROCEDURE REASON: Primary osteoarthritis of left hip * * * * Physician Interpretation * * * * EXAMINATION: XR HIP 3V PELV+ AP/LAT LT CLINICAL HISTORY: Left hip pain Technique: XR HIP 3V PELV+ AP/LAT LT -- LEFT with 3 views on 3 images Comparison: X-ray pelvis and left hip 12/12/2023 RESULT: No acute fracture or dislocation. Severe degenerative disease of the left hip with joint space narrowing, subchondral sclerosis, subchondral cysts and marginal osteophytes. Right hip prosthesis. DIVISION OF RADIOLOGY Provider, [facility] [place] - 01/14/2024 * * *Final Report* * * DATE OF EXAM: Jan 09 2024 11:07AM WOX 5351 - XR HIP 3V PELV+ AP/LAT LT / PROCEDURE REASON: Primary osteoarthritis of left hip * * * * Physician Interpretation * * * * EXAMINATION: XR HIP 3V PELV+ AP/LAT LT CLINICAL HISTORY: Left hip pain Technique: XR HIP 3V PELV+ AP/LAT LT -- LEFT with 3 views on 3 images Comparison: X-ray pelvis and left hip 12/12/2023 RESULT: No acute fracture or dislocation. Severe degenerative disease of the left hip with joint space narrowing, subchondral sclerosis, subchondral cysts and marginal osteophytes. Right hip prosthesis. IMPRESSION IMPRESSION: No acute osseous abnormality. Degenerative disease of the left hip. Dishcloth Folder: DOTTY Transcribe Date/Time: Jan 14 2024 8:19A Dictated by : TRACY HOLLINGSWORTH MD This examination was interpreted and the report reviewed and electronically signed by: TRACY HOLLINGSWORTH MD on Jan 14 2024 8:21AM EST [facility] XR Pelvis and Hip - left AP and Lateral frogOrdered By: [facility]cf Provider on 01-14-2024 [facility] Hugo 01-11-2024 LIZN Telephone (ASHLEY) BHAKTI KIRKPATRICK ([id number]) 1945 F Date Time Provider Department 01/11/24 NEMO BYNUM During your visit today, we recorded the following information about you: Mary Price 01/11/2024 3:19 PM Signed Called Patient to make an appointment for Pre surgical clearance, and patients got on the phone and asked why she needed another pre surgical clearance. Patients said patient had already had 6 appointments for the upcoming surgery. He said flat out that they declined. Mary Price January 11, 2024 3:18 PM Allergies As of Date: 01/11/2024 Noted Allergy Reaction ADHESIVE TAPE (ROSINS) 05/08/2006 14 - Other: See Comments Comments: Contact celluitis CRESTOR (ROSUVASTATIN CALCIUM) 05/29/2012 5 - Intolerance LANTUS (INSULIN GLARGINE) 05/30/2017 5 - Intolerance Comments: burning at local injection site NICKEL 05/29/2012 2 - Rash Comments: in jewelry; also Palladium which cross reacts with nickel in some cases. PALLADIUM 05/26/2016 2 - Rash PRAVASTATIN 11/14/2012 5 - Intolerance Comments: Muscle cramps TORADOL (KETOROLAC) 05/25/2003 4 - Hives Date Reviewed: 01/09/2024 Reviewed by: Mitra Landin APRN.[employer] - Fully Assessed Reason for Visit: Consult [173] Cmt: Geriatric Pre Surgical Clearance Prescriptions as of 01/11/2024 - mupirocin (BACTROBAN) 2 % ointment two times a day for 5 days. Apply 0.5 inch with cotton swab (Q-tip) to each nostril in the morning and evening for 5 days prior to and including day of surgery. - blood sugar diagnostic (ACCU-CHEK ANNALISE PLUS TEST STRP) test strip Use to check blood sugar 4 times daily - nitroglycerin sublingual (NITROQUICK) 0.4 mg SL tablet Dissolve 1 tablet under the tongue as needed. FOR CHEST PAIN. IF NO RELIEF CALL 911 - DULoxetine (CYMBALTA) 60 mg capsule Take 1 capsule by mouth once daily. - insulin glargine U-300 conc (TOUJEO SOLOSTAR U-300 INSULIN) 300 unit/mL (1.5 mL) take 24 units twice a day, max daily dose 60 units - donepezil (ARICEPT) 10 mg tablet Take 1 tablet by mouth daily at bedtime. - memantine (NAMENDA) 10 mg tablet Take 1 tablet by mouth two times a day. - metoprolol tartrate, short acting, (LOPRESSOR) 25 mg tablet Take 1 tablet by mouth two times a day. - lidocaine (LIDODERM) 5 % Apply 1 Patch as directed every 12 hours. Remove old patch prior to placing new patch. Location: arms, left rib. 12 hours on, 12 hours off. - gabapentin (NEURONTIN) 400 mg capsule Take 1 capsule by mouth daily at bedtime for 180 days. - furosemide (LASIX) 40 mg tablet Take 40 mg by mouth once daily. Per Dr. Lilian Vance, nephrology. - colchicine 0.6 mg tablet Take 2 tabs by mouth, followed by 1 tab one hour later for gout flare. May repeat in 1 week. - allopurinol (ZYLOPRIM) 300 mg tablet Take 1 tablet by mouth once daily. For gout. - Insulin [place], Disposable, (BD ULTRAFINE III MINI PEN) 31 gauge x 3/16 1 Each as directed. 6 times daily. Dx:E11.40. On multiple insulin doses. - levothyroxine (SYNTHROID) 175 mcg tablet 7 AND 1/2 pills per week (one a day with extra half pill on Sunday) - insulin lispro (HUMALOG) 200 unit/mL (3 mL) injection take up to 165 units daily - glucagon 3 mg/actuation nasal spray (BAQSIMI) Use 1 [place] in the nose as needed for low blood sugar. May repeat after 15 minutes using a new device if there is no response. - insulin aspart U-100 (NOVOLOG FLEXPEN U-100 INSULIN) 100 unit/mL (3 mL) 14 in AM, 14 at lunch, 14 at supper, 10 at bed, plus extra based on sugars, max daily dose 100 units plus sliding scale - evolocumab (REPATHA SURECLICK) 140 mg/mL pen injector Inject 140 mg subcutaneously every 2 weeks. [facility]. - diclofenac (VOLTAREN) 1 % topical gel Apply 4 g to affected area four times daily. - Blood-Glucose Transmitter (Histros G6 TRANSMITTER) claudia change every 3 weeks - Lancets (ACCU-CHEK SOFTCLIX LANCETS) lancets Checking blood sugars 4 times daily. Dx: E11.42 - CPAP Auto bilevel with humidity set as follows: IPAP max 24, EPAP min 8 and PS 4-6 cmH2O. Comfort settings TiMax 2.0, TiMin 0.3, Trigger -M, Cycle-M. Continue using ResMed N20 nasal mask interface. - docusate sodium (COLACE ORAL) Take by mouth. - lactulose (DUPHALAC, CONSTULOSE) 10 gram/15 mL solution 30 mL q 24 HR. - ferrous sulfate 325 mg (65 mg iron) tablet Take 325 mg by mouth twice daily with meals. - BIPAP - calcium citrate (CITRACAL ORAL) Take 2 tablets by mouth twice daily. - multivit-min/iron/fo lic acid/K (BARIATRIC MULTIVITAMINS ORAL) Take by mouth. - fluticasone (FLONASE) 50 mcg/actuation nasal spray Use 2 Sprays in each nostril once daily. - COMPOUNDED PRESCRIPTION Initiate BiPAP @ 15/9 cm of water with humidification. Mask (per patient preference) optional chin strap (if indicated) , filters, tubing, humidifier and lifetime supplies. Dx. ABDI 327.23 (more content not included)... Normal [facility] US DVT LOWER BILon DVT LOWER SYDNI * * *Final Report* * * DATE OF EXAM: Jan 11 2024 5:07PM [facility] 1005 - DVT LOWER SYDNI / PROCEDURE REASON: multiple diagnoses * * * * Physician Interpretation * * * * EXAM: Bilateral lower extremity machado scale, color Doppler and spectral Doppler venous ultrasound. HISTORY: Dyspnea on exertion, Bilateral lower extremity edema COMPARISON: None TECHNIQUE: Grayscale, color Doppler and spectral Doppler ultrasound of the bilateral lower extremity venous systems. Images were stored in a permanent archive. FINDINGS: RIGHT: Realtime grayscale, color and spectral Doppler sonography demonstrates no evidence of thrombus in the right external iliac, common femoral, femoral and popliteal veins. The calf veins were not well visualized. Augmentation of the spectral Doppler waveform suggests patency of the deep veins below the knee. LEFT: Realtime grayscale, color and spectral Doppler sonography demonstrates no evidence of thrombus in the left external iliac, common femoral, femoral and popliteal veins. The calf veins were not well visualized. Augmentation of the spectral Doppler waveform suggests patency of the deep veins below the knee. IMPRESSION: No sonographic evidence of deep venous thrombosis in either lower extremity. The calf veins were not well visualized. Dishcloth Folder: [facility] Transcribe Date/Time: Jan 13 2024 6:59A Dictated by : BRITTNEE RENAE MD This examination was interpreted and the report reviewed and electronically signed by: BRITTNEE RENAE MD on Jan 13 2024 7:00AM EST [id number] CN Normal [facility] FERRITINon 01-10-2024 Ferritin [Mass/Vol] 913.0 ng/mL High 14.7 - 2 05.1 ng/mL [facility] Ferritin [Mass/Vol]on 2023 Interpretation and review of laboratory results Abnormal [facility] Hepatic function 2000 panelO rdered By: Bernice Beck on 01-09-2024 Albumin [Mass/Vol] 4.3 g/dL 3.9 - 4.9 g/dL [facility] ALP [Catalytic activity/Vol] 102 U/L 34 - 123 U/L [facility] ALT [Catalytic activity/Vol] 25 U/L 7 - 38 U/L [facility] AST [Catalytic activity/Vol] 24 U/L 13 - 35 U/L [facility] Bilirubin [Mass/Vol] 0.3 mg/dL 0.2 - 1 .3 mg/dL [facility] Bilirubin.conjugated [Mass/Vol] mg/dL NINF - 0.2 mg/dL [facility] Interpretation and review of laboratory results Normal [facility] Protein [Mass/Vol] 6.8 g/dL 6.3 - 8.0 g/dL [facility] Iron and Iron binding capaci ty panelon 01-09-2024 Interpretation and review of laboratory results Normal [facility] Iron [Mass/Vol] 61 ug/dL 41 - 186 ug/dL [facility] Iron binding capacity [Mass/Vol] 280 ug/dL 232 - 386 ug/dL [facility] Iron/TIBC [Molar ratio] 21.8 % 15.0 - 57.0 % [facility] XR Pelvis and Hip - left AP and Lateral frogon 01-09-2024 Radiology Study observation (narrative) [facility] XR Pelvis and Hip - left AP and Lateral frogon 12-12-2023 [facility] Basic metabolic 2000 panelon 08-24-2023 Anion gap [Moles/Vol] 12 mmol/L 9 - 18 mmol/L [facility] Calcium [Mass/Vol] 9.7 mg/dL 8.5 - 10. 2 mg/dL [facility] Chloride [Moles/Vol] 102 mmol/L 97 - 10 5 mmol/L [facility] CO2 [Moles/Vol] 27 mmol/L 22 - 30 mmol/L [facility] Creatinine [Mass/Vol] 1.04 mg/dL High 0.58 - 0.96 mg/dL [facility] Estimated Glomerular Filtration Rate 56 mL/min/1.73m Low >=60 mL/min/1.73m [facility] Glucose [Mass/Vol] 112 mg/dL High 74 - 99 mg/dL [facility] Potassium [Moles/Vol] 4.2 mmol/L 3.7 - 5.1 mmol/L [facility] Sodium [Moles/Vol] 141 mmol/L 136 - 144 mmol/L [facility] Urea nitrogen [Mass/Vol] 15 mg/dL 7 - 21 mg/dL [facility] CBC panel Auto (Bld)on 08-24 Erythrocyte distribution width (RBC) [Ratio] 14.1 % 11.5 - 15.0 % [facility] Hematocrit (Bld) [Volume fraction] 38.2 % 36.0 - 46.0 % [facility] Hemoglobin (Bld) [Mass/Vol] 12.7 g/dL 11.5 - 15.5 g/dL [facility] MCH (RBC) [Entitic mass] 32.9 pg 26.0 - 34.0 pg [facility] MCHC (RBC) [Mass/Vol] 33.2 g/dL 30.5 - 36.0 g/dL [facility] MCV (RBC) [Entitic vol] 99.0 fL 80.0 - 100.0 fL [facility] Nucleated RBC (Bld) [#/Vol] <0.01 k/uL [facility] Platelet mean volume (Bld) [Entitic vol] 10.9 fL 9.0 - 12.7 fL [facility] Platelets (Bld) [#/Vol] 203 10*3/uL 150 - 400 k/uL [facility] RBC (Bld) [#/Vol] 3.86 10*6/uL Low 3.90 - 5.2 0 m/uL [facility] WBC (Bld) [#/Vol] 9.79 10*3/uL 3.70 - 11. 00 k/uL [facility] URIC ACID BLOODon 08-24-2023 Urate [Mass/Vol] 5.9 mg/dL 2.5 - 6.6 mg/dL [facility] Basophil percentageOrdered B y: María Vance on 07-04-2023 Basophil percentage 3.7 mg/dL 2.5-4.9 [facility] Chloride [Moles/Vol] 106 mmol/L 98-107 [facility] Glucose [Mass/Vol] 174 mg/dL 74-106 [facility] Comment on above: Fasting Glucose resu lt greater than or equal to 126 mg/dL suggests DIABETES MELLITUS per A.D.A. criteria. Potassium [Moles/Vol] 3.8 mmol/L 3.5-5.1 [facility] Sodium [Moles/Vol] 141 mmol/L 136-145 [facility] Laboratory - Chemistry and C hemistry - challengeOrdered By: María Vance on 07-04-2023 CO2 [Moles/Vol] 29.0 mmol/L 21.0-32.0 [facility] Urea nitrogen/Creatinine [Mass ratio] 17.7 mg/mg 06-29 [facility] No Panel InformationOrdered By: María Vance on 07-04-2023 Estimated GFR (MDRD) Amer 54 mL/min >60 [facility] Comment on above: GFR Calc Estimated GFR (MDRD) Non-Af Amer 45 mL/min >60 [facility] Comment on above: Non- GFR Calc Serum or plasma albumin will urement (mass/volume)Ordered By: María Vance on 07-04-2023 Albumin [Mass/Vol] 3.7 g/dL 3.2-5.0 [facility] Serum or plasma calcium will urement (mass/volume)Ordered By: María Vance on 07-04-2023 Calcium [Mass/Vol] 9.2 mg/dL 8.5-10.1 [facility] Serum or plasma creatinine m easurement (mass/volume)Ordered By: María Vance on 07-04-2023 Creatinine [Mass/Vol] 1.24 mg/dL 0.55-1.02 [facility] Comment on above: The validity of the calculated GFR & GFRAA in patients over 70 years has not been determined. Clinical correlation is essential. Serum or plasma urea nitroge n measurement (mass/volume)Ordered By: María Vance on 07-04-2023 Urea nitrogen [Mass/Vol] 22 mg/dL 7-18 [facility] Serum or plasma uric acid me asurement (mass/volume)Ordered By: María Vance on 07-04-2023 Urate [Mass/Vol] 6.1 mg/dL 2.6-6.0 [facility] Comment on above: The drugs N-Acetylcy steine and Metamizole may falsely depress this assay. Urine creatinine measurement (mass/volume)Ordered By: María Vance on 07-04-2023 Creatinine (U) [Mass/Vol] 143.00 mg/dL NO RANGE EST. [facility] Urine protein measurement (m ass/volume)Ordered By: María Vance on 07-04-2023 Protein (U) [Mass/Vol] 20.3 mg/dL 0.0-11.8 [facility] Urine protein/creatinine mas s ratioOrdered By: María Vance on 07-04-2023 Protein/Creatinine (U) [Mass ratio] 142 mg/g CRE 0-200 [facility] XR Ribs - left Views and Gladys st PAon 05-10-2023 IMPRESSION: No evidence of a rib fracture. Left shoulder degenerative joint disease. This is new or progressed from previous study. Ossification superior to the humeral head could represent calcific tendinitis or intra-articular bony body Dishcloth Folder: DOTTY Transcribe Date/Time: May 10 2023 11:20A Dictated by : MELONY CID MD This examination was interpreted and the report reviewed and electronically signed by: MELONY CID MD on May 10 2023 11:23AM EST DIVISION OF RADIOLOGY * * *Final Report* * * DATE OF EXAM: May 08 2023 12:43PM WOX [id number] - XR RIB/CHST 3V AP RIB/OBL/CHST L / PROCEDURE REASON: Rib pain on left side * * * * Physician Interpretation * * * * LEFT RIBS History: Rib pain on left side Findings: No evidence of acute fracture. No evidence of pneumothorax or effusion. There is narrowing of LEFT glenohumeral joint with prominent spurring. There is a 10 mm ossification superior to the LEFT humeral head. Spurring acromioclavicular joint. DIVISION OF RADIOLOGY Provider, [facility] [place] - 05/10/2023 * * *Final Report* * * DATE OF EXAM: May 08 2023 12:43PM WOX [id number] - XR RIB/CHST 3V AP RIB/OBL/CHST L / PROCEDURE REASON: Rib pain on left side * * * * Physician Interpretation * * * * LEFT RIBS History: Rib pain on left side Findings: No evidence of acute fracture. No evidence of pneumothorax or effusion. There is narrowing of LEFT glenohumeral joint with prominent spurring. There is a 10 mm ossification superior to the LEFT humeral head. Spurring acromioclavicular joint. IMPRESSION IMPRESSION: No evidence of a rib fracture. Left shoulder degenerative joint disease. This is new or progressed from previous study. Ossification superior to the humeral head could represent calcific tendinitis or intra-articular bony body Dishcloth Folder: PSCB Transcribe Date/Time: May 10 2023 11:20A Dictated by : MELONY CID MD This examination was interpreted and the report reviewed and electronically signed by: MELONY CID MD on May 10 2023 11:23AM EST [facility] XR Ribs - left Views and Gladys st PAOrdered By: Ccf Provider on 05-10-2023 [facility] XR Ribs - left Views and Gladys st PAon 05-08-2023 Radiology Study observation (narrative) [facility] STAPH AUREUS PCRon 3 S. aureus and MRSA panel OLE+probe (Nose) Normal Negative [facility] Comment on above: Order Comment: Speci men Type: SWAB OF INTERNAL NOSE Ordering Facility: [facility] Address: [address] [place] [id number] Result Comment: Nega tive for Staphylococcus aureus by PCR. Negative for MRSA by PCR Performed By: #### S APCR #### [facility] CLIA [id number] [facility] [address]K [address] OF [place] XR HIP BILATERAL 5V PEL/AP/L AT EACH HIPon 04-27-2023 [facility] Basophil percentageOrdered B y: Edward Melo on 04-09-2023 Basophil percentage >100 SEEN /hpf 0-5 [facility] Chloride [Moles/Vol] 105 mmol/L 98-107 [facility] Glucose [Mass/Vol] 213 mg/dL 74-106 [facility] Comment on above: Glucose result great er than or equal to 200 mg/dLsuggests DIABETES MELLITUS per A.D.A. criteria. Potassium [Moles/Vol] 3.9 mmol/L 3.5-5.1 [facility] Sodium [Moles/Vol] 142 mmol/L 136-145 [facility] Bilirubin Test strip Ql (U)O rdered By: Edward Melo on 04-09-2023 Bilirubin Ql (U) Negative Negative [facility] Culture, urineOrdered By: Parul Melo on 04-09-2023 Bacteria identified Cx Nom (U) Klebsiella pneumoniae sp pneum [facility] Ketones Test strip Ql (U)Ord ered By: Edward Melo on 04-09-2023 Ketones Ql (U) 5 mg/dl Negative [facility] Laboratory - Chemistry and C hemistry - challengeOrdered By: Edward Melo on 04-09-2023 CO2 [Moles/Vol] 32.0 mmol/L 21.0-32.0 [facility] Urea nitrogen/Creatinine [Mass ratio] 15.9 mg/mg 10-20 [facility] Mucus LM Ql (Urine sed)Order ed By: Edward Melo on 04-09-2023 Mucus Ql (Urine sed) 0 SEEN /hpf [facility] Nitrite Test strip Ql (U)Ord ered By: Edward Melo on 04-09-2023 Nitrite Ql (U) Negative Negative [facility] No Panel InformationOrdered By: Edward Melo on 04-09-2023 Estimated GFR (MDRD) Amer 45 mL/min >60 [facility] Comment on above: GFR Calc Estimated GFR (MDRD) Non-Af Amer 37 mL/min >60 [facility] Comment on above: Non- GFR Calc Protein Test strip Ql (U)Ord ered By: Edward Melo on 04-09-2023 Protein Ql (U) 100 mg/dl Negative [facility] Serum or plasma calcium will urement (mass/volume)Ordered By: Edward Melo on 04-09-2023 Calcium [Mass/Vol] 10.0 mg/dL 8.5-10.1 [facility] Serum or plasma creatinine m easurement (mass/volume)Ordered By: Edward Melo on 04-09-2023 Creatinine [Mass/Vol] 1.45 mg/dL 0.55-1.02 [facility] Comment on above: The validity of the calculated GFR & GFRAA in patients over 70 years has not been determined. Clinical correlation is essential. Serum or plasma urea nitroge n measurement (mass/volume)Ordered By: Edward Melo on 04-09-2023 Urea nitrogen [Mass/Vol] 23 mg/dL 7-18 [facility] Squamous epithelial cells de tection in urine sediment by light microscopyOrdered By: Edward Melo on 04-09-2023 Epithelial cells.squamous LM Ql (Urine sed) 0 SEEN /hpf 5-10 [facility] Thin prep Papanicolaou smear with manual screeningOrdered By: Edward Melo on 04-09-2023 Thin prep Papanicolaou smear with manual screening 5 5-15 [facility] Urine blood detectionOrdered By: Edward Melo on 04-09-2023 RBC Ql (U) 25 /ul Negative [facility] RBC Ql (U) 0 SEEN /hpf 0-5 [facility] Urine clarityOrdered By: Aldo Melo on 04-09-2023 Clarity (U) Cloudy Clear [facility] Urine color determinationOrd ered By: Edward Melo on 04-09-2023 Color (U) Yellow Yellow [facility] Urine glucose detectionOrder ed By: Edward Melo on 04-09-2023 Glucose Ql (U) Normal mg/dl Normal [facility] Urine leukocyte esterase det ection by dipstickOrdered By: Edward Melo on 04-09-2023 Leukocyte esterase Test strip Ql (U) 500 /ul Negative [facility] Urine pHOrdered By: Edward cespedes on 04-09-2023 pH (U) 5.0 [pH] 5.0 - 8.0 [facility] Urine sediment bacteria coun t by microscopy (number/high power field)Ordered By: Edward Melo on 04-09-2023 Bacteria LM.HPF (Urine sed) [#/Area] 3 /[HPF] None Seen [facility] Urine specific gravity measu rementOrdered By: Edward Melo on 04-09-2023 Specific gravity (U) [Rel density] 1.020 1.002-1.030 [facility] Urobilinogen Auto test strip Ql (U)Ordered By: Edward Melo on 04-09-2023 Urobilinogen Ql (U) Normal mg/dl Normal [facility] SURGICAL PATHOLOGYOrdered By : Torrey Brown on 03-05-2023 Case Report Surgical Pathology Report Case: [id number] Authorizing Provider: Jay Deleon MD Collected: 03/01/2023 01:47 PM Ordering Location: Ambulatory Surgery Received: 03/01/2023 10:07 PM Pathologist: Torrey Brown MD Specimens: A) - DUODENUM BIOPSY, small bowel, r/o celiac B) - STOMACH BIOPSY, gastric, r/o h. pylori C) - ESOPHAGOGASTRIC JUNCTION BIOPSY, zline, r/o lugo's [facility] Work Phone: Diagnosis Comment t3mcqRRqKMCzzMYvBZHk FDmljzPaNEMfoCHcM3Qm olpuPNxcKQ3rYU6kpVpc nTHqsFThYLBnHoMxx9xe r242rIEar4xwYJDZpafe pVe3jMbfY45xn4D4Wcpp I10itNHqBGK7GJUeFYHg zLBfEQGtDTJ6WQDxyJCr V6whRIOvWP9npztlKMgk HUfaREYwwBQ7ZHPzuLHk E3PaMQQfNUjqBVYzteo9 FrFxUu9nfXTswZctVWfw YXJkXHBsYWluXGZzMjAg DMuhPKZci2ZozMFdBaU9 yEXcVKFngYnsL94qOIO0 nxfkGXg9geP6qA5zTCMt pW3di4VvICBdhpSmOTIh zWEzPWD2cBGaK4KxqADd PlJgeGFgu3Vlf6k8rGCq wiIiw8HktjEnUH4txIOh qKDyvFApZXGSyaY1yKVx H15xjsYjzEAhqSkjdWLg iJQhyuOgHX9bv6Mah4Dt DgFnz156MJj2KLwwwqDb ktKqn4WctXsgLEgtfYJ8 kFEmQlyoPQbhy4zdndF0 fUV8RBW2gCWjTXKxK9Yz AJJlwqY7tFGnGULvB63u YWJvdmUgdGhlIEVHIGp1 lcJ8qQ4zXRH7oTRqfGck bB0vr7ozQrKmCAC9GQNn IHdvdWxkIGJlIGNvbXBh hFlzuACjm0v5bJKUGVSb KAN0IA34E90lKDlywhKz ZRJntzGpEr6bIBU9j8Fg DMWvJZ0quKUatM== [facility] Work Phone: FINAL DIAGNOSIS t6rdzYByPTNfjATwDICw AGegaxJkZUIhzBPzQ0Tv kwobSZlsIL7vMF1gyAgh xTCfkWAxJVPzDtWjz6ks k094rSWcs6ezQGYXyzzi nZp8cUwkK50rk9O9Qfhs R53muGKuSTT2MHCbUOOr wKOxALCkLII0CBTceIMy B0wtHYNuMS0iskyfCIfy LHdwHEUobOI2LCEkfTDr I8RuUDIgATuhSLYaubs3 MpVnRz7khQApfSpeJQkb YXJkXHBsYWluXGZzMjAg RJ2sBHK5n3RuaeSwERFf aC5jz2t7FMKdabPmYLD5 j5RnlmCkGY57I51iPXP6 mRJfTN7uKXBwTHkle4Q3 zYIkHHTfa1XnAUuicQaz ej5ojMNwZORiveVHFjXc C1QnuJZmiZtuLnoooQU8 OlxwYXIgLSBPeHludGlj OAE1tLPvZ4XeiWNfNfPl fXCrw7Wcj7n6eLPbpbAr jSMwpe8xhYneJEBkah2y bWFsaXRpZXMuXHBhciAt KY3mJThrvItza5SrB1Xz ciBvcmdhbmlzbXMgaWRl csBmPuctWA6hoVHfUVDi xpMDBxVpRUMfzZeyW39f SCM0acrrTHd3mcI7oE1k OIFicJ4hl6c4QVTemmMv IEluZmxhbWVkIGNhcmRp KCMiqFjmRRRqEYN6vaac UC93Q06rNNX1oWAoADkz pRReiTtaNHinlDP7CYBs YXNpYSwgbmVnYXRpdmUg Yk8oDLY0h4DuBGYhOE2z bDSbMI9jA2T7QX7hdSCp sFZvr0EmGCanoVqpzxKi A3DqslKsRZCuxFsovDls vYLukQQaV2VjLhvrLJL3 [facility] Work Phone: Gross Description q4jpqLSbKUDivTXVJTDz NXEeEN8eoLoyuIm7iHgy FJEprdX0eNRiYFled6to JND1n6xvhvJLGljyQXZd IIjvKYJxjmzgNmZ4KEji EOXpgfsgXTq2PCunYEBw aMA4DZWplRQjO0LiEAHr TU6rmjt9YWH0MTszHFJt XwR4SYJdXtVjHdawAVt6 YLJqleT2Uwe8KSBfBBOg nLLnw8T5CEotwllyJJFq uSNyT978IFdkv1DxvOMo DQpccGFyZCANCntcKlxl gUbox3HlwYIeIVvvFSTb FDYjPUkkwshwANd9IQNd KPzndPReBM6ajSjpOupc wYdbo3HndRPxJIzgHTUp SAMjMIdlUAUlWB1BBxLc TTJ8IRK0ZIAdPiZ1IYz4 OSBPVlMgIiAgMzMxNjYz NEgyJMp5HOy2ULiBFtVs QSJ8OSF6VJS3KcE6FWy5 NCBcXHQgMiBcXGYgQXJp KCedJUfcrGZuOL6fmIit lJMejrCAJtVBYJ7VQW1N FNRMOX2KN1gksCAgDI5L QBBbtUKRFYQ3EP7rYNTZ ClxsdHJwYXJcbGluMFxy sU6oUF8CAKy6cpDbEDQd VyQiLjKiIEk1HBEvzN9r Gs0rjVCvzZ6yLCCjLJ40 bHRpcGxlIHBpZWNlcyBv WwH2AL0jUXMuFjYwxIvb f5DpLYNnG2IxK9H2gY7l WNCuVVSaZPR4ADLfKbP7 LRXjTkRznH7tDD34ZIpo vQTgrRCjzEJ6VZCueV7i s07oKTSck7CliIIqOy5R PKAfwBHDSUH1GI5dQWd1 BGxuOVMxC2HzE8PtceXd iRPbSYZgoxQue6ywGJC2 XHNsbXVsdDBcZnMxNlxw HMD1FOBjKHbrSN6Rt8og XACwzVJjUZI6BJnzrAVg OFKaYNUeOVcuCgOnX3RH EKNrObA7MoJ3HMKaLGo7 TKd8QR9SYbOdFSQlMmH3 ZbP7NMBiCRf9SZnxNO5D WKGwBLs9IgF8MUS9GMG3 YXw9MHevwSOjWMdbPqYA cmlhbCBcXGZsIFxcbmN9 XHBsYWluXGZzMTZccGxh fJ8mMi6aH9ZPKOQRXQRX KR7CR4tcyBLeBU4QHUSg cEWLNWD5LP4vRVSBVrtc pKMbIGZinZrbIMqhvY2f HW9PJAm3lmNxATNqDoYq PcZyHZp9EDRqeK7iHl5u yZOmrB1bBFRyUNI1dhTn uTXeOEKne7AzkWRnPVWa m0G4ZIKdj0T2BNOxF9zk SBoahWpaYkR3hhNbBzLm jLTeAnXubOHaGmXkN26w TGYtuJXwnXaav7JbzVu6 aDHfMDtzRX5oCKJaUEVp TEZ8ND5OOkghvKekTsJa aCLkAhNlcpQ1PLOezFPd LZR9ON7qXKUxxdlnULPy YHAgUZQ8OSdxoI82vQHo XGZzMTZccGFyfVxwbGFp ekZPFcpcKwertTmjh7Fi dCBcXGlkIDUxMDAyIFxc KMHnZR0EYjPpXFF1QZW9 YGDjDtB4XLq9RTHBBtQn IiAgMzMxNjYzNTAiIDk5 FQi5EYqNZzTmFWA7EOS3 SBBrIMV3SQl4HKKgTNXp MiBcXGYgQXJpYWwgXFxm wDZtIK0ymZnptISaszfe mxQ2EXBmPXepVFRxMBDG C3SUQHqXF5NCZBOFLiLY HL2JUEaAOpXGII7XV0uu mZNoKB9NFHEmaQUYQGM1 WL9tCXNQCwcmbVCdTDHf pZlqAOhpdO2gCV8DFOf0 cmNoXGZzMjAgUmVjZWl2 HUEygW6nQj4yyUQdlZ8e FMPsLWO7hgUfyCNfXIZu g0UrnMQjNOOrm2F8WDWw g4X8TTRmL2zjDYkluAnx ZxL9ctTeQdNczKTuYbYn uBTtCkRaN76kVIVxrEZe aLuet9HpcFf7rQCbEGyu WF8dOSOmWBEwRMJ0KY6z XHBhciANClxwYXIgDQpT JvRUuH9lXTJkPNGsWLOp IZK5XkntWK4kaZAtOA9E XHBhciANClxwYXJkXGx0 uwPyrha7hXHbMjIwSWfU br7wgrGgyMDugZ0qqFre byGvXEQzi4HuFIGcDSQj S3ubieHqRY3qOAAapB5i YywgOTUwMCBFdWNsaWQg HGXtQvznP9ewngBqKH2v BPKWTXO5SZO7IHopHDEa DQpccGFyZFxsdHJwYXIg EMfjXAWiY74vy3ILf3Il QTRht4hklXkeu4RrjPMn RVpiUNBhpCOzTMgkmF4s EmVof6wbcMo8BNqxxfH7 PKObws7joElfqY8eKUuj k2vpPEJ5LMRbyFPudIKd YMggaJrbbR6dPkXoFjx3 QTrpPBKeH7VdL3KxbnA8 XHBsYWluXGZzMTYgDQp9 [facility] Work Phone: Performing Lab s4smmURcXVSstIWuOlTz RALbYHOiq3pzIBNlbDOb ZzEwMzNcZnRuYmpcdWMx HKReQrKwj0xyy667zJAo q9yuYTVvMxF4oPOaKSOl mYJsR160QGHfSBbpr6ow v6FvDHWnvHShb9T0OREC urrfzBw5oOmxY52rg0T8 HwohG2ajIKOfQQUkW0Rr YY1tRAPlCyu2XGE0WKN0 ZJFqJTEgQ1VfAE4pPBJb qGAuTJn4a9txaNvmYCUc DNS4h2vfNNyatwLtTS5j jo5uwZg1x6shsiBcDFEj MVBryMLKFBNqA3BqmEvh Bd5ubFn0dSljGswlNEV3 Voi2SM4chm31adu4kKwi CWQvvnkoJxM5SLdfQMZv aekwEQp7ZHypTXOybRL2 RCZarWOtS0WjWCFiJS7s yuk3BUT8MAiqSJWeScQ2 NDBcaGVhZGVyeTcyMFxm y725JKT1ZeTjOK1rT3Jp m3R6rU6baVJrRCNwyPAc GrHwYEXxms3vtLLcMNge z6FzHKU9zuD1bGOjgFEb YZEeEH57Hjmtx9XzMdnt a5UiG53jzKO3TYrce5jr UP6mOsT9nnTuGKhct6oj yX2vOtD8ZTwyPK7aRU9p HGMhiA4xjiuwSHGbUsWc ptfuAMVzyFxzsvKsOo0w lJijZUH5RGukY1rgmA7o EaO6BTqkZ1zgrW8eXHe2 NHnfxVW1ODKcnP6xFO4s poclj8wmVYkaEZedPJHa prR4ewG1QIIxnMIxB0Mm mH9yCQLvLV6azznvo5um DLN3WNkuFKRoFNX5YbVl WEMxf7Cemoy6OqQwl4Dv eEOrZYriQ61ty269TQOp ooUoX4yutSBwebkhoRDs fqruGDjauhR9EZCkQDJh YWluXGYxXGZzMjJcbGFu ZzEwMzNcaGljaFxmMVxk UtHtVVHrVPfzS0itZfXm QhGgGyVTnLOgqq2hbXgb JWgzvOFdtXDypJT5fT5o FVVigtSbiz5rONCjrXLV mWG0PAqdcaKcL7liccsv AOAcFOOjw85sEVpdRlY2 ELIiO0RkYCWwAu6rQJkb BfZtU0v1q69vPHJEMVN3 NDEyMiAgICBDTElBIyAz DcBiWHf7EFv9QUDyymvp TXZrwIgrfA0cKiYyWsAg IldfZV0lQTHtM4ctmOMu RZCtCMAzG6bwYiWbpV9n aFxmMVxjZjJcZnMyMlxs dDFrbVCYSYQwxlN0v6B7 IFxwbGFpblxmMVxmczIy HJtstqroQVZyFCxpJ5dv KkFmQKDmlVrjLNldw2Qd XGYxXGZzMjIgRGlyZWN0 u3G4JJJgVEJvtOTJmZT8 LCBNLkQuXHBhcn0= [facility] Work Phone: [facility] Work Phone: CYTOLOGY NON-GYNOrdered By: Nakia Verma on 03-03-2023 Case Report Medical Cytology Report Case: [id number] Authorizing Provider: Jay Deleon MD Collected: 03/01/2023 01:52 PM Ordering Location: Ambulatory Surgery Received: 03/02/2023 05:27 AM Pathologist: Nakia Verma MD Specimen: ESOPHAGEAL BRUSH [facility] Work Phone: FINAL DIAGNOSIS t6ylfTIhSJHpkLCwPDSk GBueyqCpHXYklYIyW2Nv mubcVQjlHL9nCQ4elKay oHJctPQmQUEiTuRxo7dw m211iHEsy2leIEAQplba qWd9mGvfN74mw7D3Gprw M7mcJJSqTKzxVEMkJEaj bHVlMDtccmVkMFxncmVl lbMdZcy1TGQ0NRm0HSZm cGVydzEyMjQwXHBhcGVy zNM5ABTcBO2dwosaPqRg LF6muafhAbJzOJ0axhb1 VaIrLV1jgzxvCtCyTNdn OMPgenz8EoNlIc3eqDGi tCljYXjuQ6cxvR9jThV5 BDneQ5qznU4pTNk3QBrn FUNbnVL4oxzuPBquMPZy eyV3eqruUFrrQVKxtMT4 asqyVIfzGBSyUeD6qcfa MFxwYXJkXHBsYWluXGJc ZnMyMlxjZjEgQSAtIEVT A9XJHAeUDJrzXsBIZ6ry IFxwYXIgICAgICAgICAg VZ3xT5H7xIHwTFIuscAg FEtxP10dmyGyE0FttGPn XHBhciAgICAgICAgICAg MfDzA8BtOV4uF6KmqWEl ggTpp3RgxZ9vl0ksE4Yv mIpaT26de5svqBHymYC3 aXRoIFxpIENhbmRpZGFc aTAgIHNwZWNpZXMuICAg WZYlxKVhAIUyZPg5GQUp ICAgICAgXHBhclxwYXJc F0SvYZUjlrsfJCyrRhCa cGFyfQ== [facility] Work Phone: Gross Description u3tvzXYzCVKauEVVOSTy QDPpVZ0oqFjopZq4kMtc IODlvtV3fBJeTAaxd7vn TSW0l9xyimOPGnyuLOMy VLkhNAIzmcztQvQ9FFmu ESZjqnknGOh3DSlyNJTm tPG6BPAobRNkC2OtBFZr UH2gaqg3BLN0SXeiISJa ZyN2TAOdSvRbPmtbOAc6 XAMfrjH8Ydo0VNMmCCZt eYTfi6Q7ZReorlzcFBQb mGChW177DTqre1HntBJv DQpccGFyZCANCntcKlxl lVpli7YxeMVfLVteEWZu NNKuKKbpceybKZx1UZRk BStxoXCxKS5yzOdqDrut tJhew6TzgGZwBEcyESTp IJIrLFspHCYxOZ7XQoYy OZB5MIp5RFW4SmF2ZGz2 OSBPVlMgIiAgMzMxNjYz LUZoKDy2QPr7MZmZRmMm FYF5QDNuGZWqLOQ2SUo9 MyBcXHQgMiBcXGYgQXJp DXymHBrtpGUhLB9ynRvt xKLcciTZOvKRM24HWAEH RUFMIEJSVVNIXHBhciAN ClxlcGljTmVzdERvYzEg DQpcbHRycGFyXGxpbjBc cmluMCANClxsdHJjaFxm cpUdRWN0BRApWRvygk52 TWC3b5bhhFQjCDtbQmib oASgnlB2WFcQWSKXUInQ EhEtNV7yHVaXP1TPOOmA SvegTST2DVC9QQqekPrz UxsciuJyqMCgPpZDyW1q aJGwcuioHvhqhWA1IQwz TfmlsD4vtRNSOXAWPdvC JeisdzAtEZ7TNDBZEE2U fVU9NOgmPApixXE8r5aq nDEqk7h4TMlgDRQ4gAqs bGFpblxsdHJjaFxmczIy ICBccHJvdGVjdHtcZmll yHT4AEviTehthS8rgHPJ EERBHssCPvoqkxTtEG8E LYIZUmWIOP89PUVdCsS4 lYO3Db21NPKgIFBnzFLj URycU626L60fn0CsKYHr i7svzXGfLUujXxmjkMBf zhG2IUxLSBUDMCpYArCc BD1qGIyCN4PRDwD9RRCq PqL2xSB1Gr96ZDBeALJb pTHuCOviE898JZMiKGel CMk6lxSdVMJwYePtDGrl uw64EZQ3f9jphJVpJVel MomqaWTpfjA0OGaTZSVW ARjDErUfKA9bPRfCZ2PN KQcGZzegETI6QQv1L2wz fXtcZmxkcnNsdCBcJzFD bX9oxYPyMCM8eSDdLFTn lLCdm1nrbRJfAAnpLkvh iUWbprM2WDwRKKZVEAkJ FuJfPO6aHBuXS3QNBsU6 MQDmTmV1rXC6W295TYEr CEFqoMZaLVjpO234KQHz IRktDJg5hoEgKRSlSvJe MHtfpz47ZXW4l2ycnREp EIqnDkdnwGRuywR0JWsZ AJKEXAxEIxDsCZ9zSLaS Q6IKLSxGUqcpICZ9ExZ6 XCi9qTbfMyobaaPdhCOe HsFWiQ32oENaECWwdlHl A4ivh2hnBnwvkCM4UEkb DtngwU5grHDBPAPDIqbV AonxwnNcSC2IBNZZHU3Q bGU5FWhmKBo0fGU1c3cc sHOmo1o5HCulIIH7lKfp bGFpblxsdHJjaFxmczIy XQ3hOTsknr07SWW3r5qq aWVsZHtcKlxmbGRpbnN0 DYxQJTWJLIjKQtZxWV0x VPnPE6KRZHyVAqdtPBJa Gha9SFw7gRgpYdbiygSf hVMcKsDPsX8XeGyzUQFp jWyuUprfiUV4RZhoNaux eR3bvZXFLDCVLyhXRrub qwHkLL3RSJUYGP8IyFO4 GAH8S5q4wUY5g4tjzIVb g0b1YXvoRSR0qSoozFJc blxsdHJjaFxmczIyICBw zbNvMPKcNO1FFtd9IKFS JNLQNVvGQT3UJUOVBBNL MP8MFJeYCoCrBPP8EIV2 DW7zVtR5YCxuFXveVNMz XMPhHfZ0vPO3HM1yADF4 YcU8WV2pUmB8QKD6C8l1 FIBhR80XOkSNIRJRU69R QQDAFCPPE0ADVXSKZJuG G9VFUL6UTNNVHFPORG9G BTpEGmPEZGcRW9OUUW7T RTFKRKABIV7UEwAqAHmM O5KNY2oQIEKjMZCNDZUK NYZuAhLGFV1zYDk5Z6qL KjzZKVxnWSO0HXZfxXCm l7MLEI8YLkV4UUdiYYk2 X3o2CJXMKAWMNNx9SMMd JrS0IO76BVtPPGWISXEX AIP8OTQeZzIqMJ44ZXgS WOUJDDPWO9bKSmQ5QTB6 X9r5ITQXHKAKZB8NXHGD N26BHCCBUGNYK7ORNGYW YlIMYNHTS85FAPXMYLBJ C6SQG3uUJLGSOjJJWXUS V50REJYLSWGFB5XEZFVI JMQPKiQPZqNHSU8EHGEU JZKEWS6KKJdBPyBgZRCH V4LLOzMSN5ktJOMUXGTK QUQaHM7FWGhoMZBwJ79s k5NZk1ZxICGet5uzdJpc q6CvjZJxVUnbXXPbtKEf IFqozM5zHaGns4pnlTz6 XWuywmR3RUIshx1fbNmq oG2jZAwfb5mdPEQ8HMEt fRDmdYJmCDxvySkbnI1s KwVxIbh8SAjzDENvJ5Mh V0ZdpwM2IKQcGXsvORIz MTYgDQp9 [facility] Work Phone: Performing Lab k2bxtRJdTPYnb6hmAZNq bGFuZzEwMzNcZnRuYmpc dWMxIHtccnRmMVxhbnNp XGRlZmxhbmcxMDMzXGZ0 xnXzUICvLZV1MVH9KwBt n3W6TGIpKxPhHKUhNM6g xDfdXUIiOK0lFUXkX6ui zQ9jfui3SqOpBVMdVpF6 ALBjxjT2Csi1PVJhGAgt h3dmz9FsIDKnPJp0sRkk VgKhTEKxu0qfrtJiSfEq AYVyZKHtRHOnwWWrA629 e9pol3yjmxNnpEV1UBFf WRW1LIjihcFxsmK2ZAxf gRLxYjE3TZbganKuHTxa exHuzcPcSmx9GUFcB521 ADI6oYjco4ycYSZ8CBPk LYFhOfEqUw9ifONwR224 XFRdGWEMJQKfgVh8YLXa zgFbnjEqhNIVr013E760 v6epKVQjrvFgeKuEwakx a1ekQ252AZJcuFQuevYr BkGpYWElaHXjcMI4KELf AW7cyaobHIdkPUrfEIOn fgD7ZHJgjWAxH1FdDRTq GO7ynrajNDC1IOrkHGSk JDX9ZzYkULArf2Kuglc5 KfHqua6zor30YET6b0Od qOxkQVZ8QAI6SiLeVf7k kDInCXRsIG5pLdEyyXRp MZZifx56iSheIZsezxGu jU7zGfSeHNLqyXUgWXZj LY5mfDWrWOGpdB6qwpwb XHBnYnJkcmhlYWRccGdi okPfAb8yuMsiIQN0WVxa S9nmlJ0iMqA0PSpwV7ma lY3xFZv4QPszoHY8KGEc hH8pWR0sejitx1iaNDoy OLwvVFUldhV6aeX5CZBo gIYnB8TppW8aETLbPD0y yuogg4ytQLB3KTuxCFTj ONA9AsQnOJCzk2Unwkj8 LvUjp2KhlIYdSVhkB30p y772MZDzmgCfY2lkfTJb blxwbGFpblxmMFxmczI0 XHFsXHBsYWluXGYxXGZz MjJcbGFuZzEwMzNcaGlj aFxmMVxkYmNoXGYxXGxv D0yoIaOxMgIrQcSNKAAz rgytQKqvC67xyS6iWN62 FSLiaQKbgHDfkS5vnH1g zBP3OMNwqjWzunteElMv APTad2EyGNOsJVBzG7bu ybAsKV2zDSAngF7qPtpl OTUwMCBFdWNsaWQgQXZl UBSWgCO4XEklorIgF8xs NDQxOTUgICBDTElBIyAz UbAqKjL1JKk9YELebb44 l6qupYFqQDMzpPXtJhKa WYPpAVQbh9zfRDDunYSd ZzEwMzNcZnRuYmpcdWMx DZSqLcYru3ffa730yCSj c8uoPQGgRhB3dISzFQBw xGUfK746GUTpTPhpz4qq k8QcMFEirSDus9N1DIVX fywojKj3yVidP28ol3G0 GhalL6gyOWAjBCZkR6Xd CL9cRFGfXqc7BJZ1IVB9 PSXgKBRaP8FbWJ5lFXSv pJGaFQq8w9ygwXudZQQo SCI4i3scUJsrpwUzRD7f yi3kaBp7y2vmhgBvFZMm EMOaeYVHCNXmS0BuuVku Rn0veQe3nZgtKaqgQVL3 Sjp4ZH6nkb67nmj4pIpm SVVallcqTqI3QJvaGXDe muuiSOj0WRmlRNJuwHA0 PIMghCKbT5KrQUdeJF2z pfj1GHH2FAtpYAYoMvQ5 NDBcaGVhZGVyeTcyMFxm p827XKC2BtPrVM3oC7Us k5E3tY8kaSDbNQQocGYj OxSpBSRixf3mvWOdTMqq v3EmVER4duU0gIIdpVQj IBMeDG24Hyrgi0QgTygt h8VmN70hfKJ5FRgfj1yi LF5sKqA2eeUmLRzpw3oe iH0jKbI1BVziHO2zTN0s SWGbvC2ojtufMEJdXwPb vnxlNCLkkWqsgeZbWu4k bNowNWK8QHstK0yopL4h IoN2QTcmW5xgeJ6tNBk5 LDsipVX8WIOtmG3sNZ0o yfjwk1ijSCsyKOpmSDIq pdP2nzNkCSDnxUFzJ0It dJ8rBBZiHE7rxmvvj2hd WEL9IZpwWZAdWZU6CiLh TDWpx5Ywhpl4CpHdm5Hu kPGaQTviU23my277NFIq cfNpP1pgwGQfydacvUIc qasdECnuouX8KHIlMZMn YWluXGYxXGZzMjJcbGFu ZzEwMzNcaGljaFxmMVxk SwDyCNRxAJijX5jsYdPc AfMiVxGBkVWran7qrLik DTpqjLLmsFIosLS2fB9i BYLxsbZbim0fXINwiUYN jDJ5ECtcpiDnF0hvnorm XOA7UQPqBMF5P0doDTOL dmUsIENsZXZlbGFuZCBP EEC6PIQ6TCGkNPORMYQe GNZ7FYS6PZAmJHBbiOOh XHBhclxwYXJkXHBsYWlu SGYwHMGfVgCwjTnzpR0d JfNkGpLdPbuoMW2eNFQz F6ufnLDoIKYlPEOgV8yp HiNzoB5dcXjoERilGtMh ZnMyMlxsdHJjaCBMYWJv nrR1m7O2SZqnqBBavlsx MVxmczIyXGxhbmcxMDMz VDjcG8nvChFwULHjlOot MQziw5ZvIRUqQVMaLyHg FZfvEKF7o8R5XIvchFPb vpQRSmQVFN0pkSBefqvo XS8CDmssTIY6oW== [facility] Work Phone: [facility] Work Phone: EGD Study observation Narrat renuka 03-01-2023 [facility] Gastroenterology Gastrointestinal Endoscopy Patient Name: Bhakti Kirkpatrick Procedure Date: 03/01/2023 1:40 PM Date of : 1945 Admit Type: Outpatient Age: 77 Room: [place] [address] Gender: Female Note Status: Hospital Technician Override Attending MD: Jay Deleon MD Procedure: Upper GI endoscopy Indications: Suspected gastro-esophageal reflux disease, Globus sensation, patient with increased mucous. GERD. No clear dysphagia Providers: Jay Deleon MD Patient Profile: This is a 77 year old female. Refer to note in patient chart for documentation of history and physical. Referring Physician: Jay Deleon MD (Referring MD), Jesus Davila (Referring ) Medicines: Monitored Anesthesia Care Complications: No immediate complications. Requesting Provider: Procedure: Pre-Anesthesia Assessment: - Prior to the procedure, a History and Physical was performed, and patient medications and allergies were reviewed. The patient is competent. The risks and benefits of the procedure and the sedation options and risks were discussed with the patient. All questions were answered and informed consent was obtained. Patient identification and proposed procedure were verified by the physician, the nurse, the mica miner and the animal husbandry technician in the procedure room at 13:37 PM. Mental Status Examination: alert and oriented. Airway Examination: normal oropharyngeal airway and neck mobility. Respiratory Examination: clear to auscultation. CV Examination: normal. Prophylactic Antibiotics: The patient does not require prophylactic antibiotics. Prior Anticoagulants: The patient has taken no anticoagulant or antiplatelet agents. ASA Grade Assessment: III - A patient with severe systemic disease. After reviewing the risks and benefits, the patient was deemed in satisfactory condition to undergo the procedure. The anesthesia plan was to use monitored anesthesia care (MAC). Immediately prior to administration of medications, the patient was re-assessed for adequacy to receive sedatives. The heart rate, respiratory rate, oxygen saturations, blood pressure, adequacy of pulmonary ventilation, and response to care were monitored throughout the procedure. The physical status of the patient was re-assessed after the procedure. After obtaining informed consent, the endoscope was passed under direct vision. Throughout the procedure, the patient's blood pressure, pulse, and oxygen saturations were monitored continuously. The Endoscope was introduced through the mouth, and advanced to the second part of duodenum. I was present and participated during the entire procedure, including non-zapata portions, and during the administration and monitoring of Moderate Sedation. The upper GI endoscopy was accomplished without difficulty. The patient tolerated the procedure well. Moderate Sedation: MAC anesthesia was administered by the anesthesia team. Findings: The hypopharynx was normal. Thick mucous were found at the cricopharyngeus, in the upper third of the esophagus and in the middle third of the esophagus. Removal was accomplished with a suctioned through the endoscope. Patchy, white plaques were found in the upper third of the esophagus and in the middle third of the esophagus. Brushings for cytology were obtained in the upper third of the esophagus. The Z-line was variable and was found 37 cm from the incisors. Biopsies were taken with a cold forceps for histology. A small hiatal hernia was present. 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 This was characterized by healthy appearing mucosa. Diffuse mild inflammation characterized by c (more content not included)... [employer] [facility] Radiology Study observation (narrative) Rhoda lopez [facility] Basophil percentageOrdered B y: Dr. Vance on 11-21-2022 Basophil percentage 4.0 mg/dL 2.5-4.9 [facility] Chloride [Moles/Vol] 103 mmol/L 98-[address] [facility] Glucose [Mass/Vol] 81 mg/dL 74-106 [facility] Potassium [Moles/Vol] 3.8 mmol/L 3.5-5.1 [facility] Sodium [Moles/Vol] 143 mmol/L 136-145 [facility] WBC (Bld) [#/Vol] 9.4 10*3/uL 4.4-11.0 [facility] Blood erythrocytes count (nu mber/volume)Ordered By: Dr. Vance on 11-21-2022 RBC (Bld) [#/Vol] 3.66 10*6/uL 4.2-5.4 [facility] Blood hemoglobin measurement (mass/volume)Ordered By: Dr. Vance on 11-21-2022 Hemoglobin (Bld) [Mass/Vol] 11.7 g/dL 12.0-15.0 [facility] Blood platelet mean volumeOr dered By: Dr. Vance on 11-21-2022 Platelet mean volume (Bld) [Entitic vol] 10.0 fL 6.2-12.0 [facility] Determination of erythrocyte mean corpuscular volume (MCV)Ordered By: Dr. Vance on 11-21-2022 MCV (RBC) [Entitic vol] 100.3 fL 81-99 [facility] Hematocrit Auto (Bld) [Volum e fraction]Ordered By: Dr. Vance on 11-21-2022 Hematocrit (Bld) [Volume fraction] 36.7 % 37-47 [facility] Laboratory - Chemistry and C hemistry - challengeOrdered By: Dr. Vance on 11-21-2022 CO2 [Moles/Vol] 34.0 mmol/L 21.0-32.0 [facility] Urea nitrogen/Creatinine [Mass ratio] 17.7 mg/mg 10-20 [facility] Laboratory - Hematology and Cell countsOrdered By: Dr. Vance on 11-21-2022 Erythrocyte distribution width (RBC) [Entitic vol] 57.4 fL 35.1-43.9 [facility] Erythrocyte distribution width (RBC) [Ratio] 15.5 % 11.6-14.6 [facility] MCH (RBC) [Entitic mass] 32.0 pg 27.0-32.0 [facility] MCHC Auto (RBC) [Mass/Vol]Or dered By: Dr. Vance on 11-21-2022 MCHC (RBC) [Mass/Vol] 31.9 g/dL 32-36 [facility] No Panel InformationOrdered By: Dr. Vance on 11-21-2022 Estimated GFR (MDRD) Amer 51 mL/min >60 [facility] Comment on above: GFR Calc Estimated GFR (MDRD) Non-Af Amer 42 mL/min >60 [facility] Comment on above: Non- GFR Calc Platelets bldOrdered By: Dr. Vance on 11-21-2022 Platelets (Bld) [#/Vol] 209 10*3/uL 150-450 [facility] Serum or plasma albumin will urement (mass/volume)Ordered By: Dr. Vance on 11-21-2022 Albumin [Mass/Vol] 3.6 g/dL 3.2-5.0 [facility] Serum or plasma calcium will urement (mass/volume)Ordered By: Dr. Vance on 11-21-2022 Calcium [Mass/Vol] 10.0 mg/dL 8.5-10.1 [facility] Serum or plasma creatinine m easurement (mass/volume)Ordered By: Dr. Vance on 11-21-2022 Creatinine [Mass/Vol] 1.30 mg/dL 0.55-1.02 [facility] Comment on above: The validity of the calculated GFR & GFRAA in patients over 70 years has not been determined. Clinical correlation is essential. Serum or plasma urea nitroge n measurement (mass/volume)Ordered By: Dr. Vance on 11-21-2022 Urea nitrogen [Mass/Vol] 23 mg/dL 7-18 [facility] Anaerobic cultureOrdered By: Dr. Kaminski on 10-18-2022 Bacteria identified Anaer cx Nom (Unsp spec) No anaerobic bacteria isolated. [facility] Bacterial body fluid culture Ordered By: Dr. Kaminski on 10-18-2022 Bacteria identified Cx Nom (Body fld) No growth in 5 days. [facility] Gram stain for investigation of transfusion reactionOrdered By: Dr. Kaminski on 10-13-2022 Microscopic observation Gram stain Nom (Unsp spec) [facility] * Body fluid crystals type b y light microscopyOrdered By: Dr. Kaminski on 10-12-2022 Crystals LM Nom (Body fld) MONOSODIUM URATE [facility] Comment on above: CRYSTAL RESULT IS PRELIMINARY. SEE PATH REVIEW FOR FINAL REPORT. Absolute lymphocyte countOrd ered By: Dr. Kaminski on 10-12-2022 Lymphocytes Auto (Unsp spec) [#/Vol] 1.91 10*3/uL 0.83-4.51 [facility] Basophil percentageOrdered B y: Dr. Kaminski on 10-12-2022 Basophils/100 WBC (Bld) 0.5 % 0-1 [facility] Chloride [Moles/Vol] 104 mmol/L 98-107 [facility] Eosinophils/100 WBC (Bld) 1.5 % 0-5 [facility] Glucose [Mass/Vol] 129 mg/dL 74-106 [facility] Comment on above: Fasting Glucose resu lt greater than or equal to 126 mg/dL suggests DIABETES MELLITUS per A.D.A. criteria. Neutrophils (Bld) [#/Vol] 5.7 10*3/uL 2.0-7.7 [facility] Neutrophils/100 WBC (Bld) 66.9 % 47-70 [facility] Potassium [Moles/Vol] 3.8 mmol/L 3.5-5.1 [facility] Sodium [Moles/Vol] 142 mmol/L 136-145 [facility] WBC (Bld) [#/Vol] 8.5 10*3/uL 4.4-11.0 [facility] Blood erythrocytes count (nu mber/volume)Ordered By: Dr. Kaminski on 10-12-2022 RBC (Bld) [#/Vol] 3.61 10*6/uL 4.2-5.4 [facility] Blood hemoglobin measurement (mass/volume)Ordered By: Dr. Kaminski on 10-12-2022 Hemoglobin (Bld) [Mass/Vol] 11.2 g/dL 12.0-15.0 [facility] Blood lymphocytes/100 leukoc ytesOrdered By: Dr. Kaminski on 10-12-2022 Lymphocytes/100 WBC (Bld) 22.5 % 19-41 [facility] Blood monocytes/100 leukocyt esOrdered By: Dr. Kaminski on 10-12-2022 Monocytes/100 WBC (Bld) 7.5 % 0-10 [facility] Blood platelet mean volumeOr dered By: Dr. Kaminski on 10-12-2022 Platelet mean volume (Bld) [Entitic vol] 9.9 fL 6.2-12.0 [facility] Determination of erythrocyte mean corpuscular volume (MCV)Ordered By: Dr. Kaminski on 10-12-2022 MCV (RBC) [Entitic vol] 100.3 fL 81-99 [facility] Erythrocyte sedimentation ra teOrdered By: Dr. Kaminski on 10-12-2022 ESR (Bld) [Velocity] 57 mm/h 0-30 [facility] Hematocrit Auto (Bld) [Volum e fraction]Ordered By: Dr. Kaminski on 10-12-2022 Hematocrit (Bld) [Volume fraction] 36.2 % 37-47 [facility] Laboratory - Chemistry and C hemistry - challengeOrdered By: Dr. Kaminski on 10-12-2022 CO2 [Moles/Vol] 32.0 mmol/L 21.0-32.0 [facility] Urea nitrogen/Creatinine [Mass ratio] 18.4 mg/mg 10-20 [facility] Laboratory - Hematology and Cell countsOrdered By: Dr. Kaminski on 10-12-2022 Erythrocyte distribution width (RBC) [Entitic vol] 55.5 fL 35.1-43.9 [facility] Erythrocyte distribution width (RBC) [Ratio] 15.2 % 11.6-14.6 [facility] Immature granulocytes/100 WBC (Bld) 1.100 % 0.0-0.9 [facility] Comment on above: IG% - Immature Granu locytes (promyelocytes, myelocytes and metamyelocytes) > 1% indicates that a LEFT SHIFT is Present. MCH (RBC) [Entitic mass] 31.0 pg 27.0-32.0 [facility] Nucleated RBC/100 WBC (Bld) [Ratio] 0 % 0-5 [facility] MCHC Auto (RBC) [Mass/Vol]Or dered By: Dr. Kaminski on 10-12-2022 MCHC (RBC) [Mass/Vol] 30.9 g/dL 32-36 [facility] No Panel InformationOrdered By: Dr. Kaminski on 10-12-2022 Estimated GFR (MDRD) Amer 54 mL/min >60 [facility] Comment on above: GFR Calc Estimated GFR (MDRD) Non-Af Amer 44 mL/min >60 [facility] Comment on above: Non- GFR Calc Platelets bldOrdered By: Dr. Kaminski on 10-12-2022 Platelets (Bld) [#/Vol] 212 10*3/uL 150-450 [facility] Review by pathologistOrdered By: Dr. Kaminski on 10-12-2022 Pathologist review Bartolo (Unsp spec) [Interp] Reviewed [facility] Comment on above: Numerous monosodium urate crystals are noted.Clinical correlation necessary.Tolu Bonner M.D. 10/16/22 Serum or plasma C reactive p rotein measurement (mass/volume)Ordered By: Dr. Kaminski on 10-12-2022 CRP [Mass/Vol] 76.50 mg/L 0.0-3.0 [facility] Comment on above: C-Reactive Protein ( CRP) provides useful information for thediagnosis, therapy and monitoring of inflammatory processesand associated diseases. For the evaluation of Relative Riskfor Cardiovascular Disease, a High Sensitivity CRP (HSCRP)should be ordered. Serum or plasma calcium will urement (mass/volume)Ordered By: Dr. Kaminski on 10-12-2022 Calcium [Mass/Vol] 9.3 mg/dL 8.5-10.1 [facility] Serum or plasma creatinine m easurement (mass/volume)Ordered By: Dr. Kaminski on 10-12-2022 Creatinine [Mass/Vol] 1.25 mg/dL 0.55-1.02 [facility] Comment on above: The validity of the calculated GFR & GFRAA in patients over 70 years has not been determined. Clinical correlation is essential. Serum or plasma urea nitroge n measurement (mass/volume)Ordered By: Dr. Kaminski on 10-12-2022 Urea nitrogen [Mass/Vol] 23 mg/dL 7-18 [facility] Serum or plasma uric acid me asurement (mass/volume)Ordered By: Dr. Kaminski on 10-12-2022 Urate [Mass/Vol] 12.3 mg/dL 2.6-6.0 [facility] Comment on above: The drugs N-Acetylcy steine and Metamizole may falsely depress this assay. Specimen source identificati on of body fluidOrdered By: Dr. Kaminski on 10-12-2022 Specimen source Nom (Body fld) SYNOVIAL [facility] Thin prep Papanicolaou smear with manual screeningOrdered By: Dr. Kaminski on 10-12-2022 Thin prep Papanicolaou smear with manual screening 6 5-15 [facility] Bacteria identified Cx Nom ( Wound)Ordered By: Dr. Kaminski on 08-02-2022 Wound Culture Negative [facility] Gram stain for investigation of transfusion reactionOrdered By: Dr. Kaminski on 08-01-2022 Microscopic observation Gram stain Nom (Unsp spec) [facility] XR Shoulder - right 2 Viewso n 07-13-2022 IMPRESSION: Severe right glenohumeral osteoarthritis and mild caudal humeral head subluxation. Dishcloth Folder: [facility] Transcribe Date/Time: Jul 13 2022 2:42P Dictated by : Blair KAPLAN MD This examination was interpreted and the report reviewed and electronically signed by: Blair KAPLAN MD on Jul 13 2022 2:45PM [facility] * * *Final Report* * * DATE OF EXAM: Jul 12 2022 3:16PM WOX 5255 - XR SHOULDER 2V AP/TRUE AP RT / PROCEDURE REASON: multiple diagnoses * * * * Physician Interpretation * * * * EXAMINATION: XR SHOULDER 2V AP/TRUE AP RT HISTORY: Chronic right shoulder pain pain for a couple of months in right shoulder and going down the arm no inj VIEWS: AP and true AP. COMPARISON: No relevant comparison. FINDINGS: Severe glenohumeral joint space narrowing with mild caudal humeral head subluxation, subchondral sclerosis and large inferior humeral head osteophyte. The acromiohumeral interval is widened. Upper right cervical apophyseal joint spurring incidentally. DIVISION OF RADIOLOGY Provider, [facility] [place] - 07/13/2022 * * *Final Report* * * DATE OF EXAM: Jul 12 2022 3:16PM WOX 5255 - XR SHOULDER 2V AP/TRUE AP RT / PROCEDURE REASON: multiple diagnoses * * * * Physician Interpretation * * * * EXAMINATION: XR SHOULDER 2V AP/TRUE AP RT HISTORY: Chronic right shoulder pain pain for a couple of months in right shoulder and going down the arm no inj VIEWS: AP and true AP. COMPARISON: No relevant comparison. FINDINGS: Severe glenohumeral joint space narrowing with mild caudal humeral head subluxation, subchondral sclerosis and large inferior humeral head osteophyte. The acromiohumeral interval is widened. Upper right cervical apophyseal joint spurring incidentally. IMPRESSION IMPRESSION: Severe right glenohumeral osteoarthritis and mild caudal humeral head subluxation. Dishcloth Folder: [employer] Transcribe Date/Time: Jul 13 2022 2:42P Dictated by : Blair KAPLAN MD This examination was interpreted and the report reviewed and electronically signed by: Blair KAPLAN MD on Jul 13 2022 2:45PM EST [facility] XR Shoulder - right 2 ViewsO rdered By: [facility] Provider on 07-13-2022 [facility] XR SHOULDER [id number] AP/SHELBIE E AP RIGHTon 07-12-2022 [facility] XR Shoulder - right 2 Viewso n 07-12-2022 Radiology Study observation (narrative) [facility] Absolute lymphocyte counton 05-16-2022 Lymphocytes Auto (Unsp spec) [#/Vol] 2.14 10*3/uL 0.83-4.51 [facility] Work Phone: Basophil percentageon 2021 Basophils/100 WBC (Bld) 0.5 % 0-1 [facility] Work Phone: Chloride [Moles/Vol] 104 mmol/L 98-107 [facility] Work [facility]: [phone] Eosinophils/100 WBC (Bld) 2.0 % 0-5 [facility] Work Phone: Glucose [Mass/Vol] 192 mg/dL 74-106 [facility] Work Phone: Comment on above: Fasting Glucose resu lt greater than or equal to 126 mg/dL suggests DIABETES MELLITUS per A.D.A. criteria. Lactate [Moles/Vol] 1.5 mmol/L 0.4-2.0 [facility] Work Phone: Neutrophils (Bld) [#/Vol] 3.7 10*3/uL 2.0-7.7 [facility] Work Phone: Neutrophils/100 WBC (Bld) 55.8 % 47-70 [facility] Work Phone: Potassium [Moles/Vol] 4.0 mmol/L 3.5-5.1 [facility] Work Phone: Sodium [Moles/Vol] 141 mmol/L 136-145 [facility] Work Phone: WBC (Bld) [#/Vol] 6.6 10*3/uL 4.4-11.0 [facility] Work Phone: Blood erythrocytes count (nu mber/volume)on 05-16-2022 RBC (Bld) [#/Vol] 3.15 10*6/uL 4.2-5.4 [facility] Work Phone: Blood hemoglobin measurement (mass/volume)on 05-16-2022 Hemoglobin (Bld) [Mass/Vol] 10.1 g/dL 12.0-15.0 [facility] Work Phone: Blood lymphocytes/100 leukoc yteson 05-16-2022 Lymphocytes/100 WBC (Bld) 32.2 % 19-41 [facility] Work Phone: Blood monocytes/100 leukocyt eson 05-16-2022 Monocytes/100 WBC (Bld) 8.4 % 0-10 [facility] Work Phone: Blood platelet mean volumeon 05-16-2022 Platelet mean volume (Bld) [Entitic vol] 9.8 fL 6.2-12.0 [facility] Work Phone: Determination of erythrocyte mean corpuscular volume (MCV)on 05-16-2022 MCV (RBC) [Entitic vol] 98.1 fL 81-99 [facility] Work Phone: Erythrocyte sedimentation ra torsten 05-16-2022 ESR (Bld) [Velocity] 17 mm/h 0-30 [facility] Work Phone: Hematocrit Auto (Bld) [Volum e fraction]on 05-16-2022 Hematocrit (Bld) [Volume fraction] 30.9 % 37-47 [facility] Work Phone: Laboratory - Chemistry and C hemistry - challengeon 05-16-2022 CO2 [Moles/Vol] 31.0 mmol/L 21.0-32.0 [facility] Work Phone: Urea nitrogen/Creatinine [Mass ratio] 19.6 mg/mg 10-20 [facility] Work Phone: Laboratory - Hematology and Cell countson 05-16-2022 Erythrocyte distribution width (RBC) [Entitic vol] 56.9 fL 35.1-43.9 [facility] Work Phone: Erythrocyte distribution width (RBC) [Ratio] 16.0 % 11.6-14.6 [facility] Work Phone: Immature granulocytes/100 WBC (Bld) 1.100 % 0.0-0.9 [facility] Work Phone: Comment on above: IG% - Immature Granu locytes (promyelocytes, myelocytes and metamyelocytes) > 1% indicates that a LEFT SHIFT is Present. MCH (RBC) [Entitic mass] 32.1 pg 27.0-32.0 [facility] Work Phone: Nucleated RBC/100 WBC (Bld) [Ratio] 0 % 0-5 [facility] Work Phone: MCHC Auto (RBC) [Mass/Vol]on 05-16-2022 MCHC (RBC) [Mass/Vol] 32.7 g/dL 32-36 [facility] Work Phone: No Panel Informationon 05-16 Estimated Creatinine Clearance Calc 24.78 ml/min [facility] Work Phone: Estimated GFR (MDRD) Amer 44 mL/min >60 [facility] Work Phone: Comment on above: GFR Calc Estimated GFR (MDRD) Non-Af Amer 37 mL/min >60 [facility] Work Phone: Comment on above: Non- GFR Calc Platelets bldon 05-16-2022 Platelets (Bld) [#/Vol] 188 10*3/uL 150-450 [facility] Work Phone: Serum or plasma C reactive p rotein measurement (mass/volume)on 05-16-2022 CRP [Mass/Vol] 28.20 mg/L 0.0-3.0 [facility] Work Phone: Comment on above: C-Reactive Protein ( CRP) provides useful information for thediagnosis, therapy and monitoring of inflammatory processesand associated diseases. For the evaluation of Relative Riskfor Cardiovascular Disease, a High Sensitivity CRP (HSCRP)should be ordered. Serum or plasma calcium will urement (mass/volume)on 05-16-2022 Calcium [Mass/Vol] 9.0 mg/dL 8.5-10.1 [facility] Work Phone: Serum or plasma creatinine m easurement (mass/volume)on 05-16-2022 Creatinine [Mass/Vol] 1.48 mg/dL 0.55-1.02 [facility] Work Phone: Comment on above: The validity of the calculated GFR & GFRAA in patients over 70 years has not been determined. Clinical correlation is essential. Serum or plasma urea nitroge n measurement (mass/volume)on 05-16-2022 Urea nitrogen [Mass/Vol] 29 mg/dL 7-18 [facility] Work Phone: Thin prep Papanicolaou smear with manual screeningon 05-16-2022 Thin prep Papanicolaou smear with manual screening 6 5-15 [facility] Work Phone: Basophil percentageon 2021 Basophil percentage 3.8 mg/dL 2.5-4.9 [facility] Work Phone: Chloride [Moles/Vol] 100 mmol/L 98-107 [facility] Work Phone: Glucose [Mass/Vol] 145 mg/dL 74-106 [facility] Work Phone: Comment on above: Fasting Glucose resu lt greater than or equal to 126 mg/dL suggests DIABETES MELLITUS per A.D.A. criteria. Potassium [Moles/Vol] 4.0 mmol/L 3.5-5.1 [facility] Work Phone: Sodium [Moles/Vol] 137 mmol/L 136-145 [facility] Work Phone: WBC (Bld) [#/Vol] 6.8 10*3/uL 4.4-11.0 [facility] Work Phone: Blood erythrocytes count (nu mber/volume)on 05-02-2022 RBC (Bld) [#/Vol] 3.45 10*6/uL 4.2-5.4 [facility] Work Phone: Blood hemoglobin measurement (mass/volume)on 05-02-2022 Hemoglobin (Bld) [Mass/Vol] 11.0 g/dL 12.0-15.0 [facility] Work Phone: Blood platelet mean volumeon 05-02-2022 Platelet mean volume (Bld) [Entitic vol] 9.7 fL 6.2-12.0 [facility] Work Phone: Determination of erythrocyte mean corpuscular volume (MCV)on 05-02-2022 MCV (RBC) [Entitic vol] 97.1 fL 81-99 [facility] Work Phone: Hematocrit Auto (Bld) [Volum e fraction]on 05-02-2022 Hematocrit (Bld) [Volume fraction] 33.5 % 37-47 [facility] Work Phone: Laboratory - Chemistry and C hemistry - challengeon 05-02-2022 CO2 [Moles/Vol] 32.0 mmol/L 21.0-32.0 [facility] Work Phone: Urea nitrogen/Creatinine [Mass ratio] 19.1 mg/mg 10-20 [facility] Work Phone: Laboratory - Hematology and Cell countson 05-02-2022 Erythrocyte distribution width (RBC) [Entitic vol] 55.3 fL 35.1-43.9 [facility] Work Phone: Erythrocyte distribution width (RBC) [Ratio] 15.9 % 11.6-14.6 [facility] Work Phone: MCH (RBC) [Entitic mass] 31.9 pg 27.0-32.0 [facility] Work Phone: MCHC Auto (RBC) [Mass/Vol]on 05-02-2022 MCHC (RBC) [Mass/Vol] 32.8 g/dL 32-36 [facility] Work Phone: No Panel Informationon 05-02 Estimated GFR (MDRD) Amer 47 mL/min >60 [facility] Work Phone: Comment on above: GFR Calc Estimated GFR (MDRD) Non-Af Amer 39 mL/min >60 [facility] Work Phone: Comment on above: Non- GFR Calc Platelets bldon 05-02-2022 Platelets (Bld) [#/Vol] 181 10*3/uL 150-450 [facility] Work Phone: Serum or plasma albumin will urement (mass/volume)on 05-02-2022 Albumin [Mass/Vol] 3.4 g/dL 3.2-5.0 [facility] Work Phone: Serum or plasma calcium will urement (mass/volume)on 05-02-2022 Calcium [Mass/Vol] 9.2 mg/dL 8.5-10.1 [facility] Work Phone: Serum or plasma creatinine m easurement (mass/volume)on 05-02-2022 Creatinine [Mass/Vol] 1.41 mg/dL 0.55-1.02 [facility] Work Phone: Comment on above: The validity of the calculated GFR & GFRAA in patients over 70 years has not been determined. Clinical correlation is essential. Serum or plasma urea nitroge n measurement (mass/volume)on 05-02-2022 Urea nitrogen [Mass/Vol] 27 mg/dL 7-18 [facility] Work Phone: Absolute lymphocyte counton 03-04-2022 Lymphocytes Auto (Unsp spec) [#/Vol] 1.95 10*3/uL 0.83-4.51 [facility] Work Phone: Basophil percentageon 2021 Basophils/100 WBC (Bld) 0.5 % 0-1 [facility] Work Phone: Chloride [Moles/Vol] 101 mmol/L 98-107 [facility] Work Phone: Eosinophils/100 WBC (Bld) 0.9 % 0-5 [facility] Work Phone: Glucose [Mass/Vol] 118 mg/dL 74-106 [facility] Work Phone: Comment on above: Fasting Glucose resu lt from 100 to 125 mg/dL suggests IMPAIRED HOMEOSTASIS per A.D.A. criteria. Neutrophils (Bld) [#/Vol] 4.7 10*3/uL 2.0-7.7 [facility] Work Phone: Neutrophils/100 WBC (Bld) 62.6 % 47-70 [facility] Work Phone: Potassium [Moles/Vol] 3.8 mmol/L 3.5-5.1 [facility] Work Phone: Sodium [Moles/Vol] 137 mmol/L 136-145 [facility] Work Phone: WBC (Bld) [#/Vol] 7.6 10*3/uL 4.4-11.0 [facility] Work Phone: Blood erythrocytes count (nu mber/volume)on 03-04-2022 RBC (Bld) [#/Vol] 3.59 10*6/uL 4.2-5.4 [facility] Work Phone: Blood hemoglobin measurement (mass/volume)on 03-04-2022 Hemoglobin (Bld) [Mass/Vol] 11.0 g/dL 12.0-15.0 [facility] Work Phone: Blood lymphocytes/100 leukoc yteson 03-04-2022 Lymphocytes/100 WBC (Bld) 25.8 % 19-41 [facility] Work Phone: Blood monocytes/100 leukocyt eson 03-04-2022 Monocytes/100 WBC (Bld) 9.1 % 0-10 [facility] Work Phone: Blood platelet mean volumeon 03-04-2022 Platelet mean volume (Bld) [Entitic vol] 10.0 fL 6.2-12.0 [facility] Work Phone: Determination of erythrocyte mean corpuscular volume (MCV)on 03-04-2022 MCV (RBC) [Entitic vol] 98.1 fL 81-99 [facility] Work Phone: Erythrocyte sedimentation ra torsten 03-04-2022 ESR (Bld) [Velocity] 51 mm/h 0-[facility]: Hematocrit Auto (Bld) [Volum e fraction]on 03-04-2022 Hematocrit (Bld) [Volume fraction] 35.2 % 37-47 [facility] Work Phone: Laboratory - Chemistry and C hemistry - challengeon 03-04-2022 CO2 [Moles/Vol] 32.0 mmol/L 21.0-32.0 [facility] Work Phone: Urea nitrogen/Creatinine [Mass ratio] 20.8 mg/mg 10-20 [facility] Work Phone: Laboratory - Hematology and Cell countson 03-04-2022 Erythrocyte distribution width (RBC) [Entitic vol] 53.4 fL 35.1-43.9 [facility] Work Phone: Erythrocyte distribution width (RBC) [Ratio] 14.8 % 11.6-14.6 [facility] Work Phone: Immature granulocytes/100 WBC (Bld) 1.100 % 0.0-0.9 [facility] Work Phone: Comment on above: IG% - Immature Granu locytes (promyelocytes, myelocytes and metamyelocytes) > 1% indicates that a LEFT SHIFT is Present. MCH (RBC) [Entitic mass] 30.6 pg 27.0-32.0 [facility] Work Phone: Nucleated RBC/100 WBC (Bld) [Ratio] 0 % 0-5 [facility] Work Phone: MCHC Auto (RBC) [Mass/Vol]on 03-04-2022 MCHC (RBC) [Mass/Vol] 31.3 g/dL 32-36 [facility] Work Phone: No Panel Informationon 03-04 Estimated GFR (MDRD) Amer 46 mL/min >60 [facility] Work Phone: Comment on above: GFR Calc Estimated GFR (MDRD) Non-Af Amer 38 mL/min >60 [facility] Work Phone: Comment on above: Non- GFR Calc Platelets bldon 03-04-2022 Platelets (Bld) [#/Vol] 224 10*3/uL 150-450 [facility] Work Phone: Serum or plasma C reactive p rotein measurement (mass/volume)on 03-04-2022 CRP [Mass/Vol] 45.30 mg/L 0.0-3.0 [facility] Work Phone: Comment on above: C-Reactive Protein ( CRP) provides useful information for thediagnosis, therapy and monitoring of inflammatory processesand associated diseases. For the evaluation of Relative Riskfor Cardiovascular Disease, a High Sensitivity CRP (HSCRP)should be ordered. Serum or plasma calcium iwll urement (mass/volume)on 03-04-2022 Calcium [Mass/Vol] 9.4 mg/dL 8.5-10.1 [facility] Work Phone: Serum or plasma creatinine m easurement (mass/volume)on 03-04-2022 Creatinine [Mass/Vol] 1.44 mg/dL 0.55-1.02 [facility] Work Phone: Comment on above: The validity of the calculated GFR & GFRAA in patients over 70 years has not been determined. Clinical correlation is essential. Serum or plasma urea nitroge n measurement (mass/volume)on 03-04-2022 Urea nitrogen [Mass/Vol] 30 mg/dL 7-18 [facility] Work Phone: Thin prep Papanicolaou smear with manual screeningon 03-04-2022 Thin prep Papanicolaou smear with manual screening 4 5-15 [facility] Work Phone: Basophil percentageon 2021 Basophil percentage 3.9 mg/dL 2.5-4.9 [facility] Work Phone: Chloride [Moles/Vol] 103 mmol/L 98-107 [facility] Work Phone: Glucose [Mass/Vol] 219 mg/dL 74-106 [facility] Work Phone: Comment on above: Glucose result great er than or equal to 200 mg/dLsuggests DIABETES MELLITUS per A.D.A. criteria. Potassium [Moles/Vol] 4.2 mmol/L 3.5-5.1 [facility] Work Phone: Sodium [Moles/Vol] 140 mmol/L 136-145 [facility] Work Phone: Iron measurement (mass/mass) on 02-23-2022 Iron (Unsp spec) [Mass/Mass] 50 ug/dL 50-170 [facility] Work Phone: Laboratory - Chemistry and C hemistry - challengeon 02-23-2022 CO2 [Moles/Vol] 33.0 mmol/L 21.0-32.0 [facility] Work Phone: Urea nitrogen/Creatinine [Mass ratio] 23.1 mg/mg 10-20 [facility] Work Phone: No Panel Informationon 02-23 Estimated GFR (MDRD) Amer 46 mL/min >60 [facility] Work Phone: Comment on above: GFR Calc Estimated GFR (MDRD) Non-Af Amer 38 mL/min >60 [facility] Work Phone: Comment on above: Non- GFR Calc Total Iron Binding Capacity 278 ug/dL 250-450 [facility] Work Phone: Serum or plasma albumin will urement (mass/volume)on 02-23-2022 Albumin [Mass/Vol] 3.7 g/dL 3.2-5.0 [facility] Work Phone: Serum or plasma calcium will urement (mass/volume)on 02-23-2022 Calcium [Mass/Vol] 9.7 mg/dL 8.5-10.1 [facility] Work Phone: Serum or plasma creatinine m easurement (mass/volume)on 02-23-2022 Creatinine [Mass/Vol] 1.43 mg/dL 0.55-1.02 [facility] Work Phone: Comment on above: The validity of the calculated GFR & GFRAA in patients over 70 years has not been determined. Clinical correlation is essential. Serum or plasma ferritin josefa surement (mass/volume)on 02-23-2022 Ferritin [Mass/Vol] 265 ng/mL 8-252 [facility] Work Phone: Serum or plasma urea nitroge n measurement (mass/volume)on 02-23-2022 Urea nitrogen [Mass/Vol] 33 mg/dL 7-18 [facility] Work Phone: TSH BLDon 02-15-2022 TSH Qn 3.650 m[IU]/L 0.270 - 4.200 mIU/L [facility] MADHU SCREENINGon 12-29-2021 [facility] Clinical Summary: Christina matias 11-29-2021 [facility] OP Visit Invalid Interpretation Code [facility] Work Phone: Clinical Summary: Christina matias 11-01-2021 [facility] Visit Invalid Interpretation Code [facility] Work Phone: Absolute lymphocyte counton 10-31-2021 Lymphocytes Auto (Unsp spec) [#/Vol] 1.33 10*3/uL 0.83-4.51 [facility] Work Phone: [phone] Basophil percentageon 2021 Basophils/100 WBC (Bld) 0.4 % 0-1 [facility] Work Phone: [phone] Chloride [Moles/Vol] 105 mmol/L 98-107 [facility] Work Phone: [phone] Eosinophils/100 WBC (Bld) 1.3 % 0-5 [facility] Work Phone: [phone] Glucose [Mass/Vol] 136 mg/dL 74-106 [facility] Work Phone: [phone] Comment on above: Fasting Glucose resu lt greater than or equal to 126 mg/dL suggests DIABETES MELLITUS per A.D.A. criteria. Neutrophils (Bld) [#/Vol] 3.3 10*3/uL 2.0-7.7 [facility] Work Phone: Neutrophils/100 WBC (Bld) 61.5 % 47-70 [facility] Work Phone: [phone] Potassium [Moles/Vol] 3.8 mmol/L 3.5-5.1 [facility] Work Phone: [phone] Sodium [Moles/Vol] 141 mmol/L 136-145 [facility] Work Phone: [phone] WBC (Bld) [#/Vol] 5.3 10*3/uL 4.4-11.0 [facility] Work Phone: Blood erythrocytes count (nu mber/volume)on 10-31-2021 RBC (Bld) [#/Vol] 3.18 10*6/uL 4.2-5.4 [facility]: Blood hemoglobin measurement (mass/volume)on 10-31-2021 Hemoglobin (Bld) [Mass/Vol] 9.6 g/dL 12.0-15.0 [facility] Work Phone: Blood lymphocytes/100 leukoc yteson 10-31-2021 Lymphocytes/100 WBC (Bld) 25.2 % 19-41 [facility] Work Phone: Blood monocytes/100 leukocyt eson 10-31-2021 Monocytes/100 WBC (Bld) 9.1 % 0-10 [facility] Work Phone: Blood platelet mean volumeon 10-31-2021 Platelet mean volume (Bld) [Entitic vol] 10.1 fL 6.2-12.0 [facility] Work Phone: Determination of erythrocyte mean corpuscular volume (MCV)on 10-31-2021 MCV (RBC) [Entitic vol] 95.9 fL 81-99 [facility] Work Phone: Hematocrit Auto (Bld) [Volum e fraction]on 10-31-2021 Hematocrit (Bld) [Volume fraction] 30.5 % 37-47 [facility] Work Phone: Laboratory - Chemistry and C hemistry - challengeon 10-31-2021 CO2 [Moles/Vol] 28.0 mmol/L 21.0-32.0 [facility] Work Phone: Magnesium [Mass/Vol] 2.1 mg/dL 1.6-2.6 [facility]: Urea nitrogen/Creatinine [Mass ratio] 19.0 mg/mg 10-20 [facility] Work Phone: Laboratory - Hematology and Cell countson 10-31-2021 Erythrocyte distribution width (RBC) [Entitic vol] 53.9 fL 35.1-43.9 [facility] Work Phone: Erythrocyte distribution width (RBC) [Ratio] 15.1 % 11.6-14.6 [facility] Work Phone: Immature granulocytes/100 WBC (Bld) 2.500 % 0.0-0.9 [facility] Work Phone: Comment on above: IG% - Immature Granu locytes (promyelocytes, myelocytes and metamyelocytes) > 1% indicates that a LEFT SHIFT is Present. MCH (RBC) [Entitic mass] 30.2 pg 27.0-32.0 [facility] Work Phone: Nucleated RBC/100 WBC (Bld) [Ratio] 0 % 0-5 [facility] Work Phone: MCHC Auto (RBC) [Mass/Vol]on 10-31-2021 MCHC (RBC) [Mass/Vol] 31.5 g/dL 32-36 [facility] Work Phone: No Panel Informationon 10-31 Estimated GFR (MDRD) Amer 53 mL/min >60 [facility] Work Phone: Comment on above: GFR Calc Estimated GFR (MDRD) Non-Af Amer 44 mL/min >60 [facility] Work Phone: Comment on above: Non- GFR Calc Platelets bldon 10-31-2021 Platelets (Bld) [#/Vol] 215 10*3/uL 150-450 [facility] Work Phone: Serum or plasma calcium will urement (mass/volume)on 10-31-2021 Calcium [Mass/Vol] 8.8 mg/dL 8.5-10.1 [facility] Work Phone: Serum or plasma creatinine m easurement (mass/volume)on 10-31-2021 Creatinine [Mass/Vol] 1.26 mg/dL 0.55-1.02 [facility] Work Phone: Comment on above: The validity of the calculated GFR & GFRAA in patients over 70 years has not been determined. Clinical correlation is essential. Serum or plasma urea nitroge n measurement (mass/volume)on 10-31-2021 Urea nitrogen [Mass/Vol] 24 mg/dL 7-18 [facility] Work Phone: Thin prep Papanicolaou smear with manual screeningon 10-31-2021 Thin prep Papanicolaou smear with manual screening 8 5-15 [facility] Work Phone: Basophil percentageon 2021 Basophil percentage >100 SEEN /hpf [facility] Work Phone: Bilirubin Test strip Ql (U)o n 10-27-2021 Bilirubin Ql (U) Negative Negative [facility] Work Phone: Culture, urineon 10-27-2021 Bacteria identified Cx Nom (U) Escherichia coli [facility] Work Phone: Ketones Test strip Ql (U)on 10-27-2021 Ketones Ql (U) Negative Negative [facility] Work Phone: Mucus LM Ql (Urine sed)on Mucus Ql (Urine sed) 0 SEEN /hpf [facility] Work Phone: Nitrite Test strip Ql (U)on 10-27-2021 Nitrite Ql (U) Negative Negative [facility] Work Phone: Protein Test strip Ql (U)on 10-27-2021 Protein Ql (U) 100 mg/dl Negative [facility] Work Phone: Squamous epithelial cells de tection in urine sediment by light microscopyon 10-27-2021 Epithelial cells.squamous LM Ql (Urine sed) 0 SEEN /hpf [facility] Work Phone: Urine blood detectionon 10-11 RBC Ql (U) 25 /ul Negative [facility] Work Phone: RBC Ql (U) 0 SEEN /hpf [facility] Work Phone: Urine clarityon 10-27-2021 Clarity (U) Sl. Cloudy Clear [facility] Work Phone: Urine color determinationon 10-27-2021 Color (U) Yellow Yellow [facility] Work Phone: Urine glucose detectionon Glucose Ql (U) Normal mg/dl Normal [facility] Work Phone: Urine leukocyte esterase det ection by dipstickon 10-27-2021 Leukocyte esterase Test strip Ql (U) 500 /ul Negative [facility] Work Phone: Urine pHon 10-27-2021 pH (U) 5.0 [pH] [facility] Work Phone: Urine sediment bacteria coun t by microscopy (number/high power field)on 10-27-2021 Bacteria LM.HPF (Urine sed) [#/Area] 3 /[HPF] None Seen [facility] Work Phone: Urine specific gravity measu rementon 10-27-2021 Specific gravity (U) [Rel density] 1.010 [facility] Work Phone: Urobilinogen Auto test strip Ql (U)on 10-27-2021 Urobilinogen Ql (U) Normal mg/dl Normal [facility] Work Phone: Basophil percentageon 2021 Bilirubin [Mass/Vol] 0.40 mg/dL 0.20-1.00 [facility] Work Phone: Comment on above: For patients on eltr ombopag therapy, use of Dimension [place] TBIL is not recommended. Chloride [Moles/Vol] 100 mmol/L 98-107 [facility] Work Phone: Glucose [Mass/Vol] 161 mg/dL 74-106 [facility] Work Phone: Comment on above: Fasting Glucose resu lt greater than or equal to 126 mg/dL suggests DIABETES MELLITUS per A.D.A. criteria. Potassium [Moles/Vol] 3.7 mmol/L 3.5-5.1 [facility] Work Phone: Protein [Mass/Vol] 7.7 g/dL 6.4-8.2 [facility] Work Phone: Sodium [Moles/Vol] 136 mmol/L 136-145 [facility] Work Phone: Laboratory - Chemistry and C hemistry - challengeon 10-12-2021 ALP [Catalytic activity/Vol] 86 U/L 45-117 [facility] Work Phone: ALT [Catalytic activity/Vol] 23 U/L 13-56 [facility] Work Phone: CO2 [Moles/Vol] 27.0 mmol/L 21.0-32.0 [facility] Work Phone: Globulin (S) [Mass/Vol] 4.6 g/dL 2.2-4.2 [facility] Work Phone: Urea nitrogen/Creatinine [Mass ratio] 24.6 mg/mg 10-20 [facility] Work Phone: No Panel Informationon 10-12 Estimated GFR (MDRD) Amer 37 mL/min >60 [facility] Work Phone: Comment on above: GFR Calc Estimated GFR (MDRD) Non-Af Amer 30 mL/min >60 [facility] Work Phone: Comment on above: Non- GFR Calc Serum or plasma albumin will urement (mass/volume)on 10-12-2021 Albumin [Mass/Vol] 3.1 g/dL 3.2-5.0 [facility] Work Phone: Serum or plasma albumin/glob ulin mass ratioon 10-12-2021 Albumin/Globulin [Mass ratio] 0.7 {ratio} 0.9-2.4 [facility] Work Phone: Serum or plasma calcium will urement (mass/volume)on 10-12-2021 Calcium [Mass/Vol] 9.2 mg/dL 8.5-10.1 [facility] Work Phone: Serum or plasma creatinine m easurement (mass/volume)on 10-12-2021 Creatinine [Mass/Vol] 1.75 mg/dL 0.55-1.02 [facility] Work Phone: Comment on above: The validity of the calculated GFR & GFRAA in patients over 70 years has not been determined. Clinical correlation is essential. Serum or plasma urea nitroge n measurement (mass/volume)on 10-12-2021 Urea nitrogen [Mass/Vol] 43 mg/dL 7-18 [facility] Work Phone: Thin prep Papanicolaou smear with manual screeningon 10-12-2021 Thin prep Papanicolaou smear with manual screening 17 U/L 15-37 [facility] Work Phone: Thin prep Papanicolaou smear with manual screening 9 5-15 [facility] Work Phone: Absolute lymphocyte counton 10-10-2021 Lymphocytes Auto (Unsp spec) [#/Vol] 1.20 10*3/uL 0.83-4.51 [facility] Work Phone: Basophil percentageon 2021 Basophils/100 WBC (Bld) 0.5 % 0-1 [facility] Work Phone: Chloride [Moles/Vol] 102 mmol/L 98-107 [facility] Work Phone: Eosinophils/100 WBC (Bld) 0.5 % 0-5 [facility] Work Phone: Glucose [Mass/Vol] 148 mg/dL 74-106 [facility] Work Phone: Comment on above: Fasting Glucose resu lt greater than or equal to 126 mg/dL suggests DIABETES MELLITUS per A.D.A. criteria. Neutrophils (Bld) [#/Vol] 6.3 10*3/uL 2.0-7.7 [facility] Work Phone: Neutrophils/100 WBC (Bld) 75.1 % 47-70 [facility] Work Phone: Potassium [Moles/Vol] 4.5 mmol/L 3.5-5.1 [facility] Work Phone: Sodium [Moles/Vol] 137 mmol/L 136-145 [facility] Work Phone: WBC (Bld) [#/Vol] 8.4 10*3/uL 4.4-11.0 [facility] Work Phone: Blood erythrocytes count (nu mber/volume)on 10-10-2021 RBC (Bld) [#/Vol] 3.64 10*6/uL 4.2-5.4 [facility] Work Phone: Blood hemoglobin measurement (mass/volume)on 10-10-2021 Hemoglobin (Bld) [Mass/Vol] 11.2 g/dL 12.0-15.0 [facility] Work Phone: Blood lymphocytes/100 leukoc yteson 10-10-2021 Lymphocytes/100 WBC (Bld) 14.3 % 19-41 [facility] Work Phone: Blood monocytes/100 leukocyt eson 10-10-2021 Monocytes/100 WBC (Bld) 8.1 % 0-10 [facility] Work Phone: Blood platelet mean volumeon 10-10-2021 Platelet mean volume (Bld) [Entitic vol] 10.5 fL 6.2-12.0 [facility] Work Phone: [phone] Determination of erythrocyte mean corpuscular volume (MCV)on 10-10-2021 MCV (RBC) [Entitic vol] 98.9 fL 81-99 [facility] Work Phone: Hematocrit Auto (Bld) [Volum e fraction]on 10-10-2021 Hematocrit (Bld) [Volume fraction] 36.0 % 37-47 [facility] Work Phone: Laboratory - Chemistry and C hemistry - challengeon 10-10-2021 CO2 [Moles/Vol] 29.0 mmol/L 21.0-32.0 [facility] Work Phone: Magnesium [Mass/Vol] 2.4 mg/dL 1.6-2.6 [facility] Work Phone: Urea nitrogen/Creatinine [Mass ratio] 20.0 mg/mg 10-20 [facility] Work Phone: Laboratory - Hematology and Cell countson 10-10-2021 Erythrocyte distribution width (RBC) [Entitic vol] 52.1 fL 35.1-43.9 [facility] Work Phone: Erythrocyte distribution width (RBC) [Ratio] 14.4 % 11.6-14.6 [facility] Work Phone: Immature granulocytes/100 WBC (Bld) 1.500 % 0.0-0.9 [facility] Work Phone: Comment on above: IG% - Immature Granu locytes (promyelocytes, myelocytes and metamyelocytes) > 1% indicates that a LEFT SHIFT is Present. MCH (RBC) [Entitic mass] 30.8 pg 27.0-32.0 [facility] Work Phone: Nucleated RBC/100 WBC (Bld) [Ratio] 0 % 0-5 [facility] Work Phone: MCHC Auto (RBC) [Mass/Vol]on 10-10-2021 MCHC (RBC) [Mass/Vol] 31.1 g/dL 32-36 [facility] Work Phone: No Panel Informationon 10-10 Estimated GFR (MDRD) Amer 33 mL/min >60 [facility] Work Phone: Comment on above: GFR Calc Estimated GFR (MDRD) Non-Af Amer 27 mL/min >60 [facility] Work Phone: Comment on above: Non- GFR Calc Platelets bldon 10-10-2021 Platelets (Bld) [#/Vol] 240 10*3/uL 150-450 [facility] Work Phone: Serum or plasma calcium will urement (mass/volume)on 10-10-2021 Calcium [Mass/Vol] 9.4 mg/dL 8.5-10.1 [facility] Work Phone: Serum or plasma creatinine m easurement (mass/volume)on 10-10-2021 Creatinine [Mass/Vol] 1.90 mg/dL 0.55-1.02 [facility] Work Phone: Comment on above: The validity of the calculated GFR & GFRAA in patients over 70 years has not been determined. Clinical correlation is essential. Serum or plasma urea nitroge n measurement (mass/volume)on 10-10-2021 Urea nitrogen [Mass/Vol] 38 mg/dL 7-18 [facility] Work Phone: Thin prep Papanicolaou smear with manual screeningon 10-10-2021 Thin prep Papanicolaou smear with manual screening 6 5-15 [facility] Work Phone: Absolute lymphocyte counton 10-03-2021 Lymphocytes Auto (Unsp spec) [#/Vol] 1.80 10*3/uL 0.83-4.51 [facility] Work Phone: Basophil percentageon 2021 Basophils/100 WBC (Bld) 0.5 % 0-1 [facility] Work Phone: Chloride [Moles/Vol] 101 mmol/L 98-107 [facility] Work Phone: Eosinophils/100 WBC (Bld) 1.3 % 0-5 [facility] Work Phone: Glucose [Mass/Vol] 142 mg/dL 74-106 [facility] Work Phone: Comment on above: Fasting Glucose resu lt greater than or equal to 126 mg/dL suggests DIABETES MELLITUS per A.D.A. criteria. Neutrophils (Bld) [#/Vol] 5.6 10*3/uL 2.0-7.7 [facility] Work Phone: Neutrophils/100 WBC (Bld) 67.3 % 47-70 [facility] Work Phone: Potassium [Moles/Vol] 3.8 mmol/L 3.5-5.1 [facility] Work Phone: Sodium [Moles/Vol] 138 mmol/L 136-145 [facility] Work Phone: WBC (Bld) [#/Vol] 8.4 10*3/uL 4.4-11.0 [facility] Work Phone: Blood erythrocytes count (nu mber/volume)on 10-03-2021 RBC (Bld) [#/Vol] 3.70 10*6/uL 4.2-5.4 [facility] Work [facility]: Blood hemoglobin measurement (mass/volume)on 10-03-2021 Hemoglobin (Bld) [Mass/Vol] 11.5 g/dL 12.0-15.0 [facility] Work Phone: Blood lymphocytes/100 leukoc yteson 10-03-2021 Lymphocytes/100 WBC (Bld) 21.5 % 19-41 [facility] Work Phone: Blood monocytes/100 leukocyt eson 10-03-2021 Monocytes/100 WBC (Bld) 8.4 % 0-10 [facility] Work Phone: Blood platelet mean volumeon 10-03-2021 Platelet mean volume (Bld) [Entitic vol] 9.9 fL 6.2-12.0 [facility] Work Phone: Determination of erythrocyte mean corpuscular volume (MCV)on 10-03-2021 MCV (RBC) [Entitic vol] 98.6 fL 81-99 [facility] Work Phone: Hematocrit Auto (Bld) [Volum e fraction]on 10-03-2021 Hematocrit (Bld) [Volume fraction] 36.5 % 37-47 [facility] Work Phone: Laboratory - Chemistry and C hemistry - challengeon 10-03-2021 CO2 [Moles/Vol] 29.0 mmol/L 21.0-32.0 [facility] Work Phone: Urea nitrogen/Creatinine [Mass ratio] 13.6 mg/mg 10-20 [facility] Work Phone: Laboratory - Hematology and Cell countson 10-03-2021 Erythrocyte distribution width (RBC) [Entitic vol] 52.2 fL 35.1-43.9 [facility] Work Phone: Erythrocyte distribution width (RBC) [Ratio] 14.4 % 11.6-14.6 [facility] Work Phone: Immature granulocytes/100 WBC (Bld) 1.000 % 0.0-0.9 [facility] Work Phone: Comment on above: IG% - Immature Granu locytes (promyelocytes, myelocytes and metamyelocytes) > 1% indicates that a LEFT SHIFT is Present. MCH (RBC) [Entitic mass] 31.1 pg 27.0-32.0 [facility] [place] [facility] Work Phone: Nucleated RBC/100 WBC (Bld) [Ratio] 0 % 0-5 [facility] [place] [facility] Work Phone: MCHC Auto (RBC) [Mass/Vol]on 10-03-2021 MCHC (RBC) [Mass/Vol] 31.5 g/dL 32-36 [facility] Work [facility]: No Panel Informationon 10-03 Estimated GFR (MDRD) Amer 51 mL/min >60 [facility] [place] [facility] Work Phone: Comment on above: GFR Calc Estimated GFR (MDRD) Non-Af Amer 42 mL/min >60 [facility] [place] [facility] Work Phone: Comment on above: Non- GFR Calc Platelets bldon 10-03-2021 Platelets (Bld) [#/Vol] 253 10*3/uL 150-450 [facility] [place] [facility] Work Phone: Serum or plasma calcium will urement (mass/volume)on 10-03-2021 Calcium [Mass/Vol] 9.3 mg/dL 8.5-10.1 [facility] Work Phone: Serum or plasma creatinine m easurement (mass/volume)on 10-03-2021 Creatinine [Mass/Vol] 1.32 mg/dL 0.55-1.02 [facility] Work Phone: Comment on above: The validity of the calculated GFR & GFRAA in patients over 70 years has not been determined. Clinical correlation is essential. Serum or plasma urea nitroge n measurement (mass/volume)on 10-03-2021 Urea nitrogen [Mass/Vol] 18 mg/dL 7-18 [facility] [place] [facility] Work Phone: Thin prep Papanicolaou smear with manual screeningon 10-03-2021 Thin prep Papanicolaou smear with manual screening 8 5-15 [facility] [place] [facility] Work Phone: Absolute lymphocyte counton 09-26-2021 Lymphocytes Auto (Unsp spec) [#/Vol] 1.16 10*3/uL 0.83-4.51 [facility] [place] [facility] Work Phone: Basophil percentageon 2021 Basophils/100 WBC (Bld) 1.0 % 0-1 [facility] Work Phone: Bilirubin [Mass/Vol] 0.40 mg/dL 0.20-1.00 [facility] Work Phone: Comment on above: For patients on eltr ombopag therapy, use of Dimension [place] TBIL is not recommended. Chloride [Moles/Vol] 104 mmol/L 98-107 [facility] Work Phone: Eosinophils/100 WBC (Bld) 4.6 % 0-5 [facility] [place] [facility] Work Phone: Glucose [Mass/Vol] 221 mg/dL 74-106 [facility] Work Phone: Comment on above: Glucose result great er than or equal to 200 mg/dLsuggests DIABETES MELLITUS per A.D.A. criteria. Neutrophils (Bld) [#/Vol] 3.9 10*3/uL 2.0-7.7 [facility] [place] [facility] Work Phone: Neutrophils/100 WBC (Bld) 63.6 % 47-70 [facility] [place] [facility] Work Phone: Potassium [Moles/Vol] 3.6 mmol/L 3.5-5.1 [facility] Work Phone: Sodium [Moles/Vol] 139 mmol/L 136-145 [facility] Work Phone: WBC (Bld) [#/Vol] 6.2 10*3/uL 4.4-11.0 [facility] Work Phone: [phone] Blood erythrocytes count (nu mber/volume)on 09-26-2021 RBC (Bld) [#/Vol] 3.30 10*6/uL 4.2-5.4 [facility] Work Phone: Blood hemoglobin measurement (mass/volume)on 09-26-2021 Hemoglobin (Bld) [Mass/Vol] 10.3 g/dL 12.0-15.0 [facility] [place] [facility] Work Phone: Blood lymphocytes/100 leukoc yteson 09-26-2021 Lymphocytes/100 WBC (Bld) 18.9 % 19-41 [facility] [place] [facility] Work Phone: Blood monocytes/100 leukocyt eson 09-26-2021 Monocytes/100 WBC (Bld) 8.6 % 0-10 [facility] Work Phone: Blood platelet mean volumeon 09-26-2021 Platelet mean volume (Bld) [Entitic vol] 9.9 fL 6.2-12.0 [facility] [place] [facility] Work Phone: Determination of erythrocyte mean corpuscular volume (MCV)on 09-26-2021 MCV (RBC) [Entitic vol] 100.0 fL 81-99 [facility] Work Phone: Hematocrit Auto (Bld) [Volum e fraction]on 09-26-2021 Hematocrit (Bld) [Volume fraction] 33.0 % 37-47 [facility] [place] [facility] Work Phone: Laboratory - Chemistry and C hemistry - challengeon 09-26-2021 CO2 [Moles/Vol] 28.0 mmol/L 21.0-32.0 [facility] [place] [facility] Work Phone: Magnesium [Mass/Vol] 2.0 mg/dL 1.6-2.6 [facility] Work Phone: Urea nitrogen/Creatinine [Mass ratio] 16.1 mg/mg 10-20 [facility] [place] [facility] Work Phone: Laboratory - Hematology and Cell countson 09-26-2021 Erythrocyte distribution width (RBC) [Entitic vol] 54.5 fL 35.1-43.9 [facility] [place] [facility] Work Phone: Erythrocyte distribution width (RBC) [Ratio] 14.9 % 11.6-14.6 [facility] [place] [facility] Work Phone: Immature granulocytes/100 WBC (Bld) 3.300 % 0.0-0.9 [facility] [place] [facility] Work Phone: Comment on above: IG% - Immature Granu locytes (promyelocytes, myelocytes and metamyelocytes) > 1% indicates that a LEFT SHIFT is Present. MCH (RBC) [Entitic mass] 31.2 pg 27.0-32.0 [facility] [place] [facility] Work Phone: Nucleated RBC/100 WBC (Bld) [Ratio] 0 % 0-5 [facility] [place] [facility] Work Phone: MCHC Auto (RBC) [Mass/Vol]on 01-17-2022 MCHC (RBC) [Mass/Vol] 31.2 g/dL 32-36 [facility] Work Phone: No Panel Informationon 09-26 Estimated GFR (MDRD) Amer 54 mL/min >60 [facility] [place] [facility] Work Phone: Comment on above: GFR Calc Estimated GFR (MDRD) Non-Af Amer 45 mL/min >60 [facility] [place] [facility] Work Phone: Comment on above: Non- GFR Calc Thyroid Stimulating Hormone (TSH) 9.63 uIU/mL 0.358-3.74 [facility] [place] [facility] Work Phone: Vitamin D 25-Hydroxy 40.4 ng/mL [facility] Work Phone: Comment on above: Vitamin D 25(OH) Sta tus Range Deficiency <20 ng/mL (50nmol/L) Insufficiency 20 - 30 ng/mL (50 - 75 nmol/L) Sufficiency 30 - 100 ng/mL (75 - 250 nmol/L) Toxicity >100 ng/mL (>250 nmol/L) Platelets bldon 09-26-2021 Platelets (Bld) [#/Vol] 210 10*3/uL 150-450 [facility] [place] [facility] Work Phone: Serum or plasma calcium will urement (mass/volume)on 09-26-2021 Calcium [Mass/Vol] 8.9 mg/dL 8.5-10.1 [facility] Work Phone: Serum or plasma creatinine m easurement (mass/volume)on 09-26-2021 Creatinine [Mass/Vol] 1.24 mg/dL 0.55-1.02 [facility] Work Phone: Comment on above: The validity of the calculated GFR & GFRAA in patients over 70 years has not been determined. Clinical correlation is essential. Serum or plasma urea nitroge n measurement (mass/volume)on 09-26-2021 Urea nitrogen [Mass/Vol] 20 mg/dL 7-18 [facility] [place] [facility] Work Phone: Thin prep Papanicolaou smear with manual screeningon 09-26-2021 Thin prep Papanicolaou smear with manual screening 7 5-15 [facility] [place] [facility] Work Phone: Whole blood hemoglobin A1c/t otal hemoglobin ratio (mass fraction)on 09-26-2021 HbA1c (Bld) [Mass fraction] 6.6 % 3.8-5.6 [facility] [place] [facility] Work Phone: Comment on above: Normal < 5.7 % Predi abetic 5.7 - 6.4 % Diabetic >or= 6.5 % Please note range changes. SYNCTon 02-01-2021 Cells Counted (synovial) 100 Normal [facility] ([place] Comment on above: Performed By: #### S YNCT #### [address] [address] Clarity (U) Clear Normal [facility] [place] Comment on above: Performed By: #### S EdwarNCT #### [address] [address] Color (U) Yellow Normal [facility] ([place] Comment on above: Performed By: #### S YNCT #### [address] [address] Eosinophils/100 WBC (Bld) 0 % Normal [facility] ([place] Comment on above: Performed By: #### S YNCT #### [address] [address] Lymphocytes/100 WBC (Bld) 94 % Normal [facility] ([place] Comment on above: Performed By: #### S YNCT #### [address] [address] Mononuclear Cell % (synovial) 0 % Normal [facility] ([place] Comment on above: Performed By: #### S YNCT #### [address] [address] Neutrophils/100 WBC (Bld) 6 % Normal 0-24 [facility] ([place] Comment on above: Performed By: #### S YNCT #### [address] [place] [address] Other Cell Type (synovial) 0 % Normal [facility] ([place] Comment on above: Performed By: #### S YNCT #### [address] [place], [place] [address] White Blood Cells (synovial) 264 /mm3 High 0-199 [facility] ([place] Comment on above: Performed By: #### S YNCT #### [address] [place], [place] [address] Bacteria identified Cx Nom ( Wound) Wound Culture Negative [facility] [place] [facility] Work Phone: Gram stain for investigation of transfusion reaction Microscopic observation Gram stain Nom (Unsp spec) [facility] [place] [facility] Work Phone: Vital Signs Date Time Vital Sign Value Performing Clinician Faci lity 04-30-2025 15:41-0400 Body height 153.[address] Jesus Davila MD Work Phone: [phone] [place] [address] 04-30-2025 15:41-0400 Body mass index (BMI) [Ratio] 35.9 kg/m2 Dr. Jesus Davila MD Work Phone: [facility] [place] [facility] 04-30-2025 15:41-0400 Body weight 84.[address] Jesus Davila MD Work Phone: [facility] [place] [facility] 04-30-2025 15:41-0400 Diastolic blood pressure 64 mm[Hg] Dr. Jesus Davila MD Work Phone: [facility] [place] [facility] 04-30-2025 15:41-0400 Heart rate 85 /min Dr. Jesus Davila MD Work Phone: [facility] [place] [facility] 04-30-2025 15:41-0400 Respiratory rate 18 /min Dr. Jesus Davila MD Work Phone: [facility] [place] [facility] 04-30-2025 15:41-0400 SaO2% (BldA) [Mass fraction] 95 % Dr. eJsus Davila MD Work Phone: [facility] [place] [facility] 04-30-2025 15:41-0400 Systolic blood pressure 104 mm[Hg] Dr. Jesus Davila MD Work Phone: [facility] [place] [facility] 04-08-2025 14:34-0400 Body mass index (BMI) [Ratio] 35.6 kg/m2 Jesus Davila MD Work Phone: [facility] 04-08-2025 14:34-0400 Body weight 84.1 kg Jesus Davila MD Work Phone: [facility] 04-08-2025 14:34-0400 Diastolic blood pressure 64 mm[Hg] Jesus Davila MD Work Phone: [facility] 04-08-2025 14:34-0400 Heart rate 88 /min Jesus Davila MD Work Phone: [facility] 04-08-2025 14:34-0400 Respiratory rate 20 /min Jesus Davila MD Work Phone: [facility] 04-08-2025 14:34-0400 Systolic blood pressure 120 mm[Hg] Jesus Davila MD Work Phone: [facility] 03-17-2025 01:00-0400 Body temperature 97.9 [degF] Dr. Jesus Davila MD Work Phone: [facility] [place] [facility] 03-17-2025 01:00-0400 Diastolic blood pressure 64 mm[Hg] Dr. Jesus Davila MD Work Phone: [facility] [place] [facility] 03-17-2025 01:00-0400 Heart rate 62 /min Dr. Jesus Davila MD Work Phone: [facility] [place] [facility] 03-17-2025 01:00-0400 Respiratory rate 16 /min Dr. Jesus Davila MD Work Phone: [facility] [place] [facility] 03-17-2025 01:00-0400 SaO2% (BldA) [Mass fraction] 98 % Dr. Jesus Davila MD Work Phone: [facility] [place] [facility] 03-17-2025 01:00-0400 Systolic blood pressure 126 mm[Hg] Dr. Jesus Davila MD Work Phone: [facility] [place] [facility] 03-16-2025 17:01-0400 Body height 153.[address] Jesus Davila MD Work Phone: [facility] [place] [facility] 03-16-2025 17:01-0400 Body mass index (BMI) [Ratio] 36.1 kg/m2 Dr. Jesus Davila MD Work Phone: [facility] [place] [facility] 03-16-2025 17:01-0400 Body weight 85.[address] Jesus Davila MD Work Phone: [facility] [place] [facility] 03-16-2025 16:10-0400 Body mass index (BMI) [Ratio] 36.15 kg/m2 Carlos Praisler-Wood ELEVATOR INSTALLER.[employer] Work Phone: [facility] 03-16-2025 16:10-0400 Body temperature 98.8 [degF] Carlos Praisler-Wood ELEVATOR INSTALLER.[employer] Work Phone: [facility] 03-16-2025 16:10-0400 Body weight 85.4 kg Carlos Praisler-Wood ELEVATOR INSTALLER.[employer] Work Phone: [facility] 03-16-2025 16:10-0400 Diastolic blood pressure 76 mm[Hg] Carlos Praisler-Wood ELEVATOR INSTALLER.[employer] Work Phone: [facility] 03-16-2025 16:10-0400 Heart rate 110 /min Carlos Praisler-Wood ELEVATOR INSTALLER.[employer] Work Phone: [facility] 03-16-2025 16:10-0400 Respiratory rate 20 /min Carlos Praisler-Wood ELEVATOR INSTALLER.[employer] Work Phone: [facility] 03-16-2025 16:10-0400 SaO2% (BldA) [Mass fraction] 97 % Carlos Praisler-Wood ELEVATOR INSTALLER.[employer] Work Phone: [facility] 03-16-2025 16:10-0400 Systolic blood pressure 118 mm[Hg] Carlos Tai APRN.CNP Work Phone: [facility] 02-23-2025 15:54-0400 Body mass index (BMI) [Ratio] 35.75 kg/m2 Akilah Pena Jr., MD Work Phone: [facility] 02-23-2025 15:54-0400 Body weight 84.46 kg Akilah Pena Jr., MD Work Phone: [facility] 02-23-2025 15:54-0400 Diastolic blood pressure 73 mm[Hg] Akilah Pena Jr., MD Work Phone: [facility] 02-23-2025 15:54-0400 Heart rate 96 /min Akilah Pena Jr., MD Work Phone: [facility] 02-23-2025 15:54-0400 Respiratory rate 16 /min Akilah Pena Jr., MD Work Phone: [facility] 02-23-2025 15:54-0400 SaO2% (BldA) [Mass fraction] 98 % Akilah Pena Jr., MD Work Phone: [facility] 02-23-2025 15:54-0400 Systolic blood pressure 116 mm[Hg] Akilah Pena Jr., MD Work Phone: [facility] 12-30-2024 09:27-0400 Body height 153.7 cm Jesus Davila MD Work Phone: [facility] 12-30-2024 09:27-0400 Body mass index (BMI) [Ratio] 35.56 kg/m2 Jesus Davila MD Work Phone: [facility] 12-30-2024 09:27-0400 Body weight 84 kg Jesus Davila MD Work Phone: [facility] 12-30-2024 09:27-0400 Diastolic blood pressure 62 mm[Hg] Jesus Davila MD Work Phone: [facility] 12-30-2024 09:27-0400 Heart rate 100 /min Jesus Davila MD Work Phone: [facility] 12-30-2024 09:27-0400 SaO2% (BldA) [Mass fraction] 98 % Jesus Davila MD Work Phone: [facility] 12-30-2024 09:27-0400 Systolic blood pressure 106 mm[Hg] Jesus Davila MD Work Phone: [facility] 11-20-2024 15:07-0400 Body mass index (BMI) [Ratio] 35.05 kg/m2 Blake Early MD Work Phone: [facility] 11-20-2024 15:07-0400 Body weight 82.8 kg Blake Early MD Work Phone: [facility] 11-20-2024 15:07-0400 Diastolic blood pressure 65 mm[Hg] Blake Early MD Work Phone: [facility] Comment on above: BP machine 11-20-2024 15:07-0400 Heart rate 87 /min Blake Early MD Work Phone: [facility] 11-20-2024 15:07-0400 Systolic blood pressure 100 mm[Hg] Blake Early MD Work Phone: [facility] Comment on above: BP machine 10-29-2024 10:55-0500 Body mass index (BMI) [Ratio] 35.35 kg/m2 Loraine Alejo ELEVATOR INSTALLER.[employer] Work Phone: [facility] 10-29-2024 10:55-0500 Body temperature 98.6 [degF] Loraine Alejo ELEVATOR INSTALLER.[employer] Work Phone: [facility] 10-29-2024 10:55-0500 Body weight 83.5 kg Loraine Alejo ELEVATOR INSTALLER.[employer] Work Phone: [facility] 10-29-2024 10:55-0500 Diastolic blood pressure 78 mm[Hg] Loraine Alejo ELEVATOR INSTALLER.[employer] Work Phone: [facility] 10-29-2024 10:55-0500 Heart rate 105 /min Loraine Alejo ELEVATOR INSTALLER.[employer] Work Phone: [facility] 10-29-2024 10:55-0500 Respiratory rate 18 /min Loraine Alejo ELEVATOR INSTALLER.[employer] Work Phone: [facility] 10-29-2024 10:55-0500 SaO2% (BldA) [Mass fraction] 97 % Lroaine Alejo ELEVATOR INSTALLER.[employer] Work Phone: [facility] 10-29-2024 10:55-0500 Systolic blood pressure 128 mm[Hg] Loraine Alejo ELEVATOR INSTALLER.[employer] Work Phone: [facility] 10-06-2024 13:11-0500 Body mass index (BMI) [Ratio] 35.71 kg/m2 Inez Lantigua MD Work Phone: [facility] 10-06-2024 13:11-0500 Body weight 84.37 kg Inez Lantigua MD Work Phone: [facility] 10-06-2024 13:11-0500 Diastolic blood pressure 64 mm[Hg] Inez Lantigua MD Work Phone: [facility] 10-06-2024 13:11-0500 Heart rate 91 /min Inez Lantigua MD Work Phone: [facility] 10-06-2024 13:11-0500 Respiratory rate 16 /min Inez Lantigua MD Work Phone: [facility] 10-06-2024 13:11-0500 Systolic blood pressure 100 mm[Hg] Inez Lantigua MD Work Phone: [facility] 07-25-2024 14:29-0500 Body mass index (BMI) [Ratio] 35.14 kg/m2 Akilah Pena Jr., MD Work Phone: [facility] 07-25-2024 14:29-0500 Body weight 83.01 kg Akilah Pena Jr., MD Work Phone: [facility] 07-25-2024 14:29-0500 Diastolic blood pressure 72 mm[Hg] Akilah Pena Jr., MD Work Phone: [facility] 07-25-2024 14:29-0500 Heart rate 85 /min Akilah Pena Jr., MD Work Phone: [facility] 07-25-2024 14:29-0500 SaO2% (BldA) [Mass fraction] 98 % Akilah Pena Jr., MD Work Phone: [facility] 07-25-2024 14:29-0500 Systolic blood pressure 109 mm[Hg] Akilah Pena Jr., MD Work Phone: [facility] 04-03-2024 09:36-0400 Body mass index (BMI) [Ratio] 35.47 kg/m2 Reny Yap APRN.[employer] Work Phone: [facility] 04-03-2024 09:36-0400 Body temperature 99.19 [degF] Reny Yap APRN.[employer] Work Phone: [facility] 04-03-2024 09:36-0400 Body weight 83.8 kg Reny Yap APRN.[employer] Work Phone: [facility] 04-03-2024 09:36-0400 Diastolic blood pressure 60 mm[Hg] Reny Yap APRN.[employer] Work Phone: [facility] 04-03-2024 09:36-0400 Heart rate 95 /min Reny Yap APRN.[employer] Work Phone: [facility] 04-03-2024 09:36-0400 Respiratory rate 22 /min Reny Yap APRN.[employer] Work Phone: [facility] 04-03-2024 09:36-0400 SaO2% (BldA) [Mass fraction] 98 % Reny Yap APRN.[employer] Work Phone: [facility] 04-03-2024 09:36-0400 Systolic blood pressure 108 mm[Hg] Reny Yap APRN.[employer] Work Phone: [facility] 03-18-2024 14:45-0400 Body mass index (BMI) [Ratio] 35.83 kg/m2 Kenzie Fairbanks PA-C Work Phone: [facility] 03-18-2024 14:45-0400 Body weight 84.64 kg Kenzie Waller PA-C Work Phone: [facility] 03-18-2024 14:45-0400 Diastolic blood pressure 63 mm[Hg] Kenzie Waller PA-C Work Phone: [facility] 03-18-2024 14:45-0400 Heart rate 104 /min Kenzie Waller PA-C Work Phone: [facility] 03-18-2024 14:45-0400 Respiratory rate 18 /min Kenzie Waller PA-C Work Phone: [facility] 03-18-2024 14:45-0400 SaO2% (BldA) [Mass fraction] 100 % Kenzie Fairbanks PA-C Work Phone: [facility] 03-18-2024 14:45-0400 Systolic blood pressure 109 mm[Hg] Kenzie Waller PA-C Work Phone: [facility] 02-14-2024 15:36-0400 Body temperature 98.71 [degF] Charlotte Hernández-Yomi PT Work Phone: [facility] 02-14-2024 15:36-0400 Diastolic blood pressure 80 mm[Hg] Charlotte Hernández-Celaya PT Work Phone: [facility] 02-14-2024 15:36-0400 Heart rate 100 /min Charlotte Villarman-Celaya PT Work Phone: [facility] 02-14-2024 15:36-0400 Respiratory rate 18 /min Charlotte Hernández-Celaya PT Work Phone: [facility] 02-14-2024 15:36-0400 SaO2% (BldA) [Mass fraction] 96 % Charlotte Hernández-Celaya PT Work Phone: [facility] 02-14-2024 15:36-0400 Systolic blood pressure 120 mm[Hg] Charlotte Gregory PT Work Phone: [facility] 02-14-2024 10:51-0400 Body temperature 97.2 [degF] Korin Gerstenslager OT Work Phone: [facility] 02-14-2024 10:51-0400 Diastolic blood pressure 60 mm[Hg] Korin Gerstenslager OT Work Phone: [facility] 02-14-2024 10:51-0400 Heart rate 88 /min Korin Gerstenslager OT Work Phone: [facility] 02-14-2024 10:51-0400 Respiratory rate 18 /min Korin Gerstenslager OT Work Phone: [facility] 02-14-2024 10:51-0400 SaO2% (BldA) [Mass fraction] 98 % Korin Gerstenslager OT Work Phone: [facility] 02-14-2024 10:51-0400 Systolic blood pressure 108 mm[Hg] Korin Gerstenslager OT Work Phone: [facility] 02-11-2024 14:08-0400 Body temperature 97.59 [degF] Julissa Deb CLINICAL INVESTIGATOR Work Phone: [facility] 02-11-2024 14:08-0400 Diastolic blood pressure 68 mm[Hg] Julissa Deb CLINICAL INVESTIGATOR Work Phone: [facility] 02-11-2024 14:08-0400 Heart rate 76 /min Julissa Deb CLINICAL INVESTIGATOR Work Phone: [facility] 02-11-2024 14:08-0400 Respiratory rate 18 /min Julissa Deb CLINICAL INVESTIGATOR Work Phone: [facility] 02-11-2024 14:08-0400 SaO2% (BldA) [Mass fraction] 99 % Julissa Deb CLINICAL INVESTIGATOR Work Phone: [facility] 02-11-2024 14:08-0400 Systolic blood pressure 120 mm[Hg] Julissa Deb CLINICAL INVESTIGATOR Work Phone: [facility] 02-08-2024 11:39-0400 Body temperature 99 [degF] Julissa Deb CLINICAL INVESTIGATOR Work Phone: [facility] 02-08-2024 11:39-0400 Diastolic blood pressure 78 mm[Hg] Julissa Deb CLINICAL INVESTIGATOR Work Phone: [facility] 02-08-2024 11:39-0400 Heart rate 96 /min Julissa Deb CLINICAL INVESTIGATOR Work Phone: [facility] 02-08-2024 11:39-0400 Respiratory rate 18 /min Julissa Deb CLINICAL INVESTIGATOR Work Phone: [facility] 02-08-2024 11:39-0400 SaO2% (BldA) [Mass fraction] 95 % Julissa Deb CLINICAL INVESTIGATOR Work Phone: [facility] 02-08-2024 11:39-0400 Systolic blood pressure 116 mm[Hg] Julissa Deb CLINICAL INVESTIGATOR Work Phone: [facility] 02-08-2024 11:16-0400 Heart rate 102 /min Maddy Guevara HOLGUIN/L Work Phone: [facility] Comment on above: post tasks 02-08-2024 11:16-0400 SaO2% (BldA) [Mass fraction] 98 % Maddy Guevara HOLGUIN/L Work Phone: [facility] Comment on above: post tasks 02-08-2024 10:50-0400 Body temperature 98.6 [degF] Maddy Guevara HOLGUIN/L Work Phone: [facility] 02-08-2024 10:50-0400 Diastolic blood pressure 76 mm[Hg] Maddy Guevara HOLGUIN/L Work Phone: [facility] 02-08-2024 10:50-0400 Respiratory rate 18 /min Maddy Guevara HOLGUIN/L Work Phone: [facility] 02-08-2024 10:50-0400 Systolic blood pressure 112 mm[Hg] Maddy Guevara HOLGUIN/L Work Phone: [facility] 02-06-2024 11:26-0400 Heart rate 102 /min Maddy Guevara HOLGUIN/L Work Phone: [facility] Comment on above: post tasks 02-06-2024 11:26-0400 SaO2% (BldA) [Mass fraction] 96 % Maddy Guevara HOLGUIN/L Work Phone: [facility] Comment on above: post tasks 02-06-2024 10:48-0400 Body temperature 97.39 [degF] Maddy Guevara HOLGUIN/L Work Phone: [facility] 02-06-2024 10:48-0400 Diastolic blood pressure 78 mm[Hg] Maddy Guevara HOLGUIN/L Work Phone: [facility] 02-06-2024 10:48-0400 Respiratory rate 16 /min Maddy Guevara HOLGUIN/L Work Phone: [facility] 02-06-2024 10:48-0400 Systolic blood pressure 118 mm[Hg] Maddy Guevara HOLGUIN/L Work Phone: [facility] 02-05-2024 14:40-0400 Diastolic blood pressure 78 mm[Hg] Julissa Deb CLINICAL INVESTIGATOR Work Phone: [facility] 02-05-2024 14:40-0400 Systolic blood pressure 116 mm[Hg] Julissa Deb CLINICAL INVESTIGATOR Work Phone: [facility] 02-05-2024 14:24-0400 Body temperature 98.2 [degF] Julissa Deb CLINICAL INVESTIGATOR Work Phone: [facility] 02-05-2024 14:24-0400 Heart rate 100 /min Julissa Deb CLINICAL INVESTIGATOR Work Phone: [facility] 02-05-2024 14:24-0400 Respiratory rate 18 /min Julissa Deb CLINICAL INVESTIGATOR Work Phone: [facility] 02-05-2024 14:24-0400 SaO2% (BldA) [Mass fraction] 97 % Julissa Boyd CLINICAL INVESTIGATOR Work Phone: [facility] 01-31-2024 15:24-0400 Body temperature 98.2 [degF] Charlotte Jacobsenjovanniasuncion-Celaya PT Work Phone: [facility] 01-31-2024 15:24-0400 Diastolic blood pressure 70 mm[Hg] Charlotte Haljovanniasuncion-Celaya PT Work Phone: [facility] 01-31-2024 15:24-0400 Heart rate 92 /min Charlotte Haljovanniasuncion-Celaya PT Work Phone: [facility] 01-31-2024 15:24-0400 Respiratory rate 18 /min Charlotte Haljovanniasuncion-Celaya PT Work Phone: [facility] 01-31-2024 15:24-0400 SaO2% (BldA) [Mass fraction] 99 % Charlotte Hernández-Celaya PT Work Phone: [facility] 01-31-2024 15:24-0400 Systolic blood pressure 124 mm[Hg] Charlotte Jacobsenderasuncion-Celaya PT Work Phone: [facility] 01-31-2024 11:16-0400 Diastolic blood pressure 80 mm[Hg] Jess Raya OT/L Work Phone: [facility] 01-31-2024 11:16-0400 Heart rate 88 /min Jess Raya OT/L Work Phone: [facility] 01-31-2024 11:16-0400 Respiratory rate 16 /min Jess Raya OT/L Work Phone: [facility] 01-31-2024 11:16-0400 SaO2% (BldA) [Mass fraction] 96 % Jess Raya OT/L Work Phone: [facility] 01-31-2024 11:16-0400 Systolic blood pressure 128 mm[Hg] Jess Raya OT/L Work Phone: [facility] 01-31-2024 10:47-0400 Body temperature 98.71 [degF] Jess Raya OT/L Work Phone: [facility] 01-28-2024 11:02-0400 Body temperature 97.9 [degF] Julissa Deb CLINICAL INVESTIGATOR Work Phone: [facility] 01-28-2024 11:02-0400 Diastolic blood pressure 76 mm[Hg] Julissa Deb CLINICAL INVESTIGATOR Work Phone: [facility] 01-28-2024 11:02-0400 Heart rate 100 /min Julissa Deb CLINICAL INVESTIGATOR Work Phone: [facility] 01-28-2024 11:02-0400 Respiratory rate 18 /min Julissa Deb CLINICAL INVESTIGATOR Work Phone: [facility] 01-28-2024 11:02-0400 SaO2% (BldA) [Mass fraction] 98 % Julissa Deb CLINICAL INVESTIGATOR Work Phone: [facility] 01-28-2024 11:02-0400 Systolic blood pressure 114 mm[Hg] Julissa Deb CLINICAL INVESTIGATOR Work Phone: [facility] 01-26-2024 13:58-0400 Body temperature 97.39 [degF] George Knupp PT Work Phone: [facility] 01-26-2024 13:58-0400 Diastolic blood pressure 80 mm[Hg] George Knupp PT Work Phone: [facility] 01-26-2024 13:58-0400 Heart rate 82 /min George Knupp PT Work Phone: [facility] 01-26-2024 13:58-0400 Respiratory rate 18 /min George Knupp PT Work Phone: [facility] 01-26-2024 13:58-0400 SaO2% (BldA) [Mass fraction] 97 % George Knupp PT Work Phone: [facility] 01-26-2024 13:58-0400 Systolic blood pressure 128 mm[Hg] George Pepperteri PT Work Phone: [facility] 01-15-2024 23:59-0400 Body temperature 36.7 [degF] Dr. Jesus Davila Work Phone: [facility] 01-15-2024 23:59-0400 Diastolic blood pressure 73 mm[Hg] Dr. Jesus Davila Work Phone: [facility] 01-15-2024 23:59-0400 Heart rate 69 /min Dr. Jesus Davila Work Phone: [facility] 01-15-2024 23:59-0400 Respiratory rate 18 /min Dr. Jesus Davila Work Phone: [facility] 01-15-2024 23:59-0400 SaO2% (BldA) [Mass fraction] 95 % Dr. Jesus Davila Work Phone: [facility] 01-15-2024 23:59-0400 Systolic blood pressure 104 mm[Hg] Dr. Jesus Davila Work Phone: [facility] 01-15-2024 21:34-0400 Body height 157.[address] Jesus aDvila Work Phone: [facility] 01-15-2024 21:34-0400 Body mass index (BMI) [Ratio] 37.3 kg/m2 Dr. Jesus Davila Work Phone: [facility] 01-15-2024 21:34-0400 Body weight 92.[address] Jesus Davila Work Phone: [facility] 01-09-2024 11:34-0400 Body height 153.7 cm [facility] 1 Work Phone: [facility] 01-09-2024 11:34-0400 Body mass index (BMI) [Ratio] 36.69 kg/m2 Pac 1 Work Phone: [facility] 01-09-2024 11:34-0400 Body temperature 98.4 [degF] [facility] 1 Work Phone: [facility] 01-09-2024 11:34-0400 Body weight 86.64 kg [facility] 1 Work Phone: [facility] 01-09-2024 11:34-0400 Diastolic blood pressure 68 mm[Hg] Pacc 1 Work Phone: [facility] 01-09-2024 11:34-0400 Heart rate 68 /min P[facility] 1 Work Phone: [facility] 01-09-2024 11:34-0400 Respiratory rate 14 /min P[facility] 1 Work Phone: [facility] 01-09-2024 11:34-0400 SaO2% (BldA) [Mass fraction] 96 % [facility] 1 Work Phone: [facility] 01-09-2024 11:34-0400 Systolic blood pressure 94 mm[Hg] Pacc 1 Work Phone: [facility] 01-07-2024 14:35-0400 Diastolic blood pressure 66 mm[Hg] Akilah Pena Jr., MD Work Phone: [facility] 01-07-2024 14:35-0400 Heart rate 69 /min Akilah Pena Jr., MD Work Phone: [facility] 01-07-2024 14:35-0400 Respiratory rate 16 /min Akilah Pena Jr., MD Work Phone: [facility] 01-07-2024 14:35-0400 SaO2% (BldA) [Mass fraction] 95 % Akilah Pena Jr., MD Work Phone: [facility] 01-07-2024 14:35-0400 Systolic blood pressure 116 mm[Hg] Akilah Pena Jr., MD Work Phone: [facility] 12-12-2023 08:58-0400 Body weight 89.36 kg Clyde Beltran MD Work Phone: [facility] 10-25-2023 11:36-0500 Body mass index (BMI) [Ratio] 36.3 kg/m2 Dr. Jesus Davila Work Phone: [facility] 10-25-2023 11:36-0500 Body weight 90.[address] Jesus Davila Work Phone: [facility] 10-25-2023 11:36-0500 Diastolic blood pressure 71 mm[Hg] Dr. Jesus Davila Work Phone: [facility] 10-25-2023 11:36-0500 Heart rate 80 /min Dr. Jesus Davila Work Phone: [facility] 10-25-2023 11:36-0500 Respiratory rate 16 /min Dr. Jesus Davila Work Phone: [facility] 10-25-2023 11:36-0500 Systolic blood pressure 128 mm[Hg] Dr. Jesus Davila Work Phone: [facility] 08-23-2023 14:52-0500 Body weight 92.22 kg Jesus Davila MD Work Phone: [facility] 08-23-2023 14:52-0500 Diastolic blood pressure 60 mm[Hg] Jesus Davila MD Work Phone: [facility] 08-23-2023 14:52-0500 Heart rate 74 /min Jesus Davila MD Work Phone: [facility] 08-23-2023 14:52-0500 Respiratory rate 16 /min Jesus Davila MD Work Phone: [facility] 08-23-2023 14:52-0500 SaO2% (BldA) [Mass fraction] 98 % Jesus Davila MD Work Phone: [facility] 08-23-2023 14:52-0500 Systolic blood pressure 112 mm[Hg] Jesus Davila MD Work Phone: [facility] 06-20-2023 15:55-0400 Body temperature 98.2 [degF] Jesus Davila MD Work Phone: [facility] 06-20-2023 15:55-0400 Body weight 95.25 kg Jesus Davila MD Work Phone: [facility] 06-20-2023 15:55-0400 Diastolic blood pressure 72 mm[Hg] Jesus Davila MD Work Phone: [facility] 06-20-2023 15:55-0400 Heart rate 92 /min Jesus Davila MD Work Phone: [facility] 06-20-2023 15:55-0400 Systolic blood pressure 114 mm[Hg] Jesus Davila MD Work Phone: [facility] 06-15-2023 08:41-0400 Respiratory rate 16 /min Dr. Jesus Davila Work Phone: [facility] 06-15-2023 08:41-0400 SaO2% (BldA) [Mass fraction] 98 % Dr. Jesus Davila Work Phone: [facility] 06-15-2023 06:16-0400 Body height 157.[address] Jesus Davila Work Phone: [facility] 06-15-2023 06:16-0400 Body mass index (BMI) [Ratio] 41.1 kg/m2 Dr. Jesus Davila Work Phone: [facility] 06-15-2023 06:16-0400 Body temperature 97.1 [degF] Dr. Jesus Davila Work Phone: [facility] 06-15-2023 06:16-0400 Body weight 102.[address] Jesus Davila Work Phone: [facility] 06-15-2023 06:16-0400 Diastolic blood pressure 59 mm[Hg] Dr. Jesus Davila Work Phone: [facility] 06-15-2023 06:16-0400 Heart rate 58 /min Dr. Jesus Davila Work Phone: 0(793)332-814566 [place] [address] 06-15-2023 06:16-0400 Systolic blood pressure 128 mm[Hg] Dr. Jesus Davila Work Phone: 8(859)167-541666 [place] [address] 04-09-2023 15:04-0400 Body mass index (BMI) [Ratio] 40 kg/m2 Dr. Jesus Davila Work Phone: 3(574)380-063166 [place] [address] 04-09-2023 15:04-0400 Body weight 96.[address] Jesus Davila Work Phone: 5(578)767-792966 [place] [address] 04-09-2023 15:04-0400 Diastolic blood pressure 66 mm[Hg] Dr. Jesus Davila Work Phone: 2(711)622-092902 [place] [address] 04-09-2023 15:04-0400 Heart rate 88 /min Dr. Jesus Davila Work Phone: 3(248)518-944466 [place] [address] 04-09-2023 15:04-0400 Respiratory rate 20 /min Dr. Jesus Davila Work Phone: 7(643)787-418366 [place] [address] 04-09-2023 15:04-0400 SaO2% (BldA) [Mass fraction] 96 % Dr. Jesus Davila Work Phone: 0(635)395-928966 [place] [address] 04-09-2023 15:04-0400 Systolic blood pressure 102 mm[Hg] Dr. Jesus Davila Work Phone: [facility] 04-05-2023 14:22-0400 Diastolic blood pressure 76 mm[Hg] Belinda Dahlhausen ELEVATOR INSTALLER[employer] Work Phone: [facility] 04-05-2023 14:22-0400 Heart rate 79 /min Belinda Dahlhausen ELEVATOR INSTALLER[employer] Work Phone: [facility] 04-05-2023 14:22-0400 Systolic blood pressure 113 mm[Hg] Belinda Dahlhausen ELEVATOR INSTALLER.[employer] Work Phone: [facility] 04-05-2023 13:49-0400 Body weight 97.61 kg Belinda Herberthausen ELEVATOR INSTALLER.[employer] Work Phone: [facility] 04-05-2023 13:49-0400 Respiratory rate 20 /min Belindabladimir Godinezhausen ELEVATOR INSTALLER.[employer] Work Phone: [facility] 04-05-2023 13:49-0400 SaO2% (BldA) [Mass fraction] 94 % Belindabladimir Jarvisen ELEVATOR INSTALLER.[employer] Work Phone: [facility] 03-01-2023 14:10-0400 Diastolic blood pressure 63 mm[Hg] Jay Deleon MD Work Phone: [facility] 03-01-2023 14:10-0400 Heart rate 61 /min Jay Deleon MD Work Phone: [facility] 03-01-2023 14:10-0400 Respiratory rate 12 /min Jay Deleon MD Work Phone: [facility] 03-01-2023 14:10-0400 SaO2% (BldA) [Mass fraction] 99 % Jay Deleon MD Work Phone: [facility] 03-01-2023 14:10-0400 Systolic blood pressure 118 mm[Hg] Jay Deleon MD Work Phone: [facility] 03-01-2023 12:51-0400 Body height 152.4 cm Jay Deleon MD Work Phone: [facility] 03-01-2023 12:51-0400 Body mass index (BMI) [Ratio] 41.99 kg/m2 Jay Deleon MD Work Phone: [facility] 03-01-2023 12:51-0400 Body weight 97.52 kg Jay Deleon MD Work Phone: [facility] 02-21-2023 14:35-0400 Body height 153 cm Jesus Davila MD Work Phone: [facility] 02-21-2023 14:35-0400 Body weight 97.89 kg Jesus Davila MD Work Phone: [facility] 02-21-2023 14:35-0400 Diastolic blood pressure 68 mm[Hg] Jesus Davila MD Work Phone: [facility] 02-21-2023 14:35-0400 Heart rate 76 /min Jesus Davila MD Work Phone: [facility] 02-21-2023 14:35-0400 Respiratory rate 12 /min Jesus Davila MD Work Phone: [facility] 02-21-2023 14:35-0400 Systolic blood pressure 98 mm[Hg] Jesus Davila MD Work Phone: [facility] 12-25-2022 13:53-0400 Body weight 98.43 kg Jay Deleon MD Work Phone: [facility] 12-25-2022 13:53-0400 Diastolic blood pressure 73 mm[Hg] Jay Deleon MD Work Phone: [facility] 12-25-2022 13:53-0400 Heart rate 67 /min Jay Deleon MD Work Phone: [facility] 12-25-2022 13:53-0400 Systolic blood pressure 136 mm[Hg] Jay Deleon MD Work Phone: [facility] 12-22-2022 13:51-0400 Body weight 98.52 kg Akilah Pena Jr., MD Work Phone: [facility] 12-22-2022 13:51-0400 Diastolic blood pressure 64 mm[Hg] Akilah Pena Jr., MD Work Phone: [facility] 12-22-2022 13:51-0400 Heart rate 77 /min Akilah Pena Jr., MD Work Phone: [facility] 12-22-2022 13:51-0400 Respiratory rate 18 /min Akilah Pena Jr., MD Work Phone: [facility] 12-22-2022 13:51-0400 SaO2% (BldA) [Mass fraction] 98 % Akilah Pena Jr., MD Work Phone: [facility] 12-22-2022 13:51-0400 Systolic blood pressure 108 mm[Hg] Akilah Pena Jr., MD Work Phone: [facility] 11-21-2022 09:35-0400 Body height 154.[address] Jesus Davila Work Phone: [facility] 11-21-2022 09:35-0400 Body mass index (BMI) [Ratio] 40.8 kg/m2 Dr. Jesus Davila Work Phone: [facility] 11-21-2022 09:35-0400 Body temperature 97.5 [degF] Dr. Jesus Davila Work Phone: [facility] 11-21-2022 09:35-0400 Body weight 97.[address] Jesus Davila Work Phone: [facility] 11-21-2022 09:35-0400 Diastolic blood pressure 68 mm[Hg] Dr. Jesus Davila Work Phone: [facility] 11-21-2022 09:35-0400 Heart rate 85 /min Dr. Jesus Davila Work Phone: [facility] 11-21-2022 09:35-0400 Respiratory rate 18 /min Dr. Jesus Davila Work Phone: [facility] 11-21-2022 09:35-0400 SaO2% (BldA) [Mass fraction] 95 % Dr. Jesus Davila Work Phone: [facility] 11-21-2022 09:35-0400 Systolic blood pressure 116 mm[Hg] Dr. Jesus Davila Work Phone: [facility] 10-24-2022 09:42-0500 Body temperature 96.91 [degF] Jesus Davila MD Work Phone: [facility] 10-24-2022 09:42-0500 Body weight 101.97 kg Jesus Davila MD Work Phone: [facility] 10-24-2022 09:42-0500 Diastolic blood pressure 60 mm[Hg] Jesus Davila MD Work Phone: [facility] 10-24-2022 09:42-0500 Heart rate 80 /min Jesus Davila MD Work Phone: [facility] 10-24-2022 09:42-0500 Respiratory rate 12 /min Jesus Davila MD Work Phone: [facility] 10-24-2022 09:42-0500 Systolic blood pressure 112 mm[Hg] Jesus Davila MD Work Phone: [facility] 10-04-2022 14:05-0500 Body height 154.[address] Jesus Davila Work Phone: [facility] 10-04-2022 14:05-0500 Body mass index (BMI) [Ratio] 42.2 kg/m2 Dr. Jesus Davila Work Phone: [facility] 10-04-2022 14:05-0500 Body weight 101.[address] Jesus Davila Work Phone: [facility] 10-04-2022 14:05-0500 Diastolic blood pressure 80 mm[Hg] Dr. Jesus Davila Work Phone: [facility] 10-04-2022 14:05-0500 Heart rate 76 /min Dr. Jesus Davila Work Phone: [facility] 10-04-2022 14:05-0500 Respiratory rate 18 /min Dr. Jesus Davila Work Phone: [facility] 10-04-2022 14:05-0500 Systolic blood pressure 114 mm[Hg] Dr. Jesus Davila Work Phone: [facility] 08-24-2022 14:27-0500 Body temperature 97.7 [degF] Jesus Davila MD Work Phone: [facility] 08-24-2022 14:27-0500 Body weight 98.43 kg Jesus Davila MD Work Phone: [facility] 08-24-2022 14:27-0500 Diastolic blood pressure 68 mm[Hg] Jesus Davila MD Work Phone: [facility] 08-24-2022 14:27-0500 Heart rate 76 /min Jesus Davila MD Work Phone: [facility] 08-24-2022 14:27-0500 Systolic blood pressure 104 mm[Hg] Jesus Davila MD Work Phone: [facility] 07-27-2022 13:42-0500 Body height 154.[address] Jesus Davila Work Phone: [facility] Work Phone: 07-27-2022 13:42-0500 Body mass index (BMI) [Ratio] 40.8 kg/m2 Dr. Jesus Davila Work Phone: [facility] 07-27-2022 13:42-0500 Body temperature 98.4 [degF] Dr. Jesus Davila Work Phone: [facility] 07-27-2022 13:42-0500 Body weight 98.[address] Jesus Davila Work Phone: [facility] 07-27-2022 13:42-0500 Diastolic blood pressure 64 mm[Hg] Dr. Jesus Davila Work Phone: [facility] 07-27-2022 13:42-0500 Heart rate 76 /min Dr. Jesus Davila Work Phone: [facility] 07-27-2022 13:42-0500 Respiratory rate 16 /min Dr. Jesus Davila Work Phone: [facility] 07-27-2022 13:42-0500 SaO2% (BldA) [Mass fraction] 96 % Dr. Jesus Davila Work Phone: [facility] 07-27-2022 13:42-0500 Systolic blood pressure 104 mm[Hg] Dr. Jesus Davila Work Phone: 7(116)246-595066 [place] [address] 06-12-2022 13:58-0400 Body mass index (BMI) [Ratio] 42.5 kg/m2 Dr. Jesus Davila Work Phone: [facility] Work Phone: 06-12-2022 13:58-0400 Body weight 102.[address] Jesus Davila Work Phone: 9(059)[phone] [place] [address] Work Phone: 06-10-2022 16:34-0400 Respiratory rate 16 /min Dr. Jesus Davila Work Phone: [facility] Work Phone: 06-10-2022 14:14-0400 Body height 154.[address] Jesus Davila Work Phone: [facility] Work Phone: 06-10-2022 14:14-0400 Body mass index (BMI) [Ratio] 42.5 kg/m2 Dr. Jesus Davila Work Phone: [facility] Work Phone: 06-10-2022 14:14-0400 Body temperature 97.8 [degF] Dr. Jesus Davila Work Phone: [facility] Work Phone: 06-10-2022 14:14-0400 Body weight 102.[address] Jesus Davila Work Phone: [facility] Work Phone: 06-10-2022 14:14-0400 Diastolic blood pressure 114 mm[Hg] Dr. Jesus Davila Work Phone: [facility] Work Phone: 06-10-2022 14:14-0400 Heart rate 84 /min Dr. Jesus Davila Work Phone: [facility] Work Phone: 06-10-2022 14:14-0400 Respiratory rate 18 /min Dr. Jesus Davila Work Phone: [facility] Work Phone: 06-10-2022 14:14-0400 SaO2% (BldA) [Mass fraction] 100 % Dr. Jesus Davila Work Phone: [facility] Work Phone: 06-10-2022 14:14-0400 Systolic blood pressure 148 mm[Hg] Dr. Jesus Davila Work Phone: [facility] Work Phone: 06-09-2022 15:29-0400 Body temperature 99 [degF] Vidya Athy PA-C Work Phone: [facility] 06-09-2022 15:29-0400 Body weight 102.15 kg Vidya Athy PA-C Work Phone: [facility] 06-09-2022 15:29-0400 Diastolic blood pressure 72 mm[Hg] Vidya Athy PA-C Work Phone: [facility] 06-09-2022 15:29-0400 Heart rate 98 /min Vidya Athy PA-C Work Phone: [facility] 06-09-2022 15:29-0400 Respiratory rate 16 /min Vidya Athy PA-C Work Phone: [facility] 06-09-2022 15:29-0400 SaO2% (BldA) [Mass fraction] 97 % Vidya Athy PA-C Work Phone: [facility] 06-09-2022 15:29-0400 Systolic blood pressure 126 mm[Hg] Vidya Athy PA-C Work Phone: [facility] 05-16-2022 03:30-0400 Heart rate 80 /min Dr. Jesus Davila Work Phone: [facility] Work Phone: 05-16-2022 03:30-0400 Respiratory rate 18 /min Dr. Jesus Davila Work Phone: [facility] Work Phone: 05-16-2022 03:30-0400 SaO2% (BldA) [Mass fraction] 96 % Dr. Jesus Davila Work Phone: [facility] Work Phone: 05-15-2022 23:30-0400 Body height 154.[address] Jesus Davila Work Phone: [facility] Work Phone: 05-15-2022 23:30-0400 Body mass index (BMI) [Ratio] 44.7 kg/m2 Dr. Jesus Davila Work Phone: [facility] Work Phone: 05-15-2022 23:30-0400 Body temperature 97.9 [degF] Dr. Jesus Davila Work Phone: [facility] Work Phone: 05-15-2022 23:30-0400 Body weight 107.[address] Jesus Davila Work Phone: [facility] Work Phone: 05-15-2022 23:30-0400 Diastolic blood pressure 80 mm[Hg] Dr. Jesus Davila Work Phone: [facility] Work Phone: 05-15-2022 23:30-0400 Systolic blood pressure 151 mm[Hg] Dr. Jesus Davila Work Phone: [facility] Work Phone: 04-27-2022 08:40-0400 Body height 154.[address] Jesus Davila Work Phone: [facility] Work Phone: 04-27-2022 08:40-0400 Body mass index (BMI) [Ratio] 44.1 kg/m2 Dr. Jesus Davila Work Phone: [facility] Work Phone: 04-27-2022 08:40-0400 Body temperature 97.5 [degF] Dr. Jesus Davila Work Phone: [facility] Work Phone: 04-27-2022 08:40-0400 Body weight 105.[address] Jesus Davila Work Phone: [facility] Work Phone: 04-27-2022 08:40-0400 Diastolic blood pressure 73 mm[Hg] Dr. Jesus Davila Work Phone: [facility] Work Phone: 04-27-2022 08:40-0400 Heart rate 68 /min Dr. Jesus Davila Work Phone: [facility] Work Phone: 04-27-2022 08:40-0400 Respiratory rate 18 /min Dr. Jesus Davila Work Phone: [facility] Work Phone: 04-27-2022 08:40-0400 SaO2% (BldA) [Mass fraction] 92 % Dr. Jesus Davila Work Phone: [facility] Work Phone: 04-27-2022 08:40-0400 Systolic blood pressure 109 mm[Hg] Dr. Jesus Davila Work Phone: [facility] Work Phone: 03-02-2022 13:11-0400 Body height 152.4 cm Jesus Davila MD Work Phone: [facility] 03-02-2022 13:11-0400 Body temperature 97.81 [degF] Jesus Davila MD Work Phone: [facility] 03-02-2022 13:11-0400 Body weight 102.97 kg Jesus Davila MD Work Phone: [facility] 03-02-2022 13:11-0400 Diastolic blood pressure 62 mm[Hg] Jesus Davila MD Work Phone: [facility] 03-02-2022 13:11-0400 Heart rate 72 /min Jesus Davila MD Work Phone: [facility] 03-02-2022 13:11-0400 Respiratory rate 16 /min Jesus Davila MD Work Phone: [facility] 03-02-2022 13:11-0400 Systolic blood pressure 112 mm[Hg] Jesus Davila MD Work Phone: [facility] 03-01-2022 14:11-0400 Body height 154.[address] Jesus Davila Work Phone: [facility] Work Phone: 03-01-2022 14:11-0400 Body mass index (BMI) [Ratio] 42.9 kg/m2 Dr. Jesus Davila Work Phone: [facility] Work Phone: 03-01-2022 14:11-0400 Body weight 102.[address] Jesus Davila Work Phone: [facility] Work Phone: 03-01-2022 14:11-0400 Diastolic blood pressure 61 mm[Hg] Dr. Jesus Davila Work Phone: [facility] Work Phone: 03-01-2022 14:11-0400 Heart rate 77 /min Dr. Jesus Davila Work Phone: [facility] Work Phone: 03-01-2022 14:11-0400 Respiratory rate 18 /min Dr. Jesus Davila Work Phone: [facility] Work Phone: 03-01-2022 14:11-0400 Systolic blood pressure 99 mm[Hg] Dr. Jesus Davila Work Phone: [facility] Work Phone: 02-15-2022 15:42-0400 Body weight 102.88 kg Max Best MD Work Phone: [facility] 02-15-2022 15:42-0400 Diastolic blood pressure 67 mm[Hg] Max Best MD Work Phone: [facility] 02-15-2022 15:42-0400 Heart rate 90 /min Max Best MD Work Phone: [facility] 02-15-2022 15:42-0400 Systolic blood pressure 135 mm[Hg] Max Best MD Work Phone: [facility] 12-27-2021 14:10-0400 Body height 154.[address] Jesus Davila Work Phone: [facility] Work Phone: 12-27-2021 14:10-0400 Body mass index (BMI) [Ratio] 43.8 kg/m2 Dr. Jesus Davila Work Phone: [facility] Work Phone: 12-27-2021 14:10-0400 Body temperature 98.6 [degF] Dr. Jesus Davila Work Phone: [facility] Work Phone: 12-27-2021 14:10-0400 Body weight 105.[address] Jesus Davila Work Phone: [facility] Work Phone: 12-27-2021 14:10-0400 Diastolic blood pressure 75 mm[Hg] Dr. Jesus Davila Work Phone: [facility] Work Phone: 12-27-2021 14:10-0400 Heart rate 80 /min Dr. Jesus Davila Work Phone: [facility] Work Phone: 12-27-2021 14:10-0400 Respiratory rate 16 /min Dr. Jesus Davila Work Phone: [facility] Work Phone: 12-27-2021 14:10-0400 SaO2% (BldA) [Mass fraction] 95 % Dr. Jesus Davila Work Phone: [facility] Work Phone: 12-27-2021 14:10-0400 Systolic blood pressure 125 mm[Hg] Dr. Jesus Davila Work Phone: [facility] Work Phone: 12-27-2021 14:10-0400 Body height 154.[address] Jesus Davila Work Phone: [facility] Work Phone: 12-27-2021 14:10-0400 Body mass index (BMI) [Ratio] 43.8 kg/m2 Dr. Jesus Davila Work Phone: [facility] Work Phone: 12-27-2021 14:10-0400 Body temperature 98.6 [degF] Dr. Jesus Davila Work Phone: [facility] Work Phone: 12-27-2021 14:10-0400 Body weight 105.[address] Jesus Davila Work Phone: [facility] Work Phone: 12-27-2021 14:10-0400 Diastolic blood pressure 75 mm[Hg] Dr. Jesus Davila Work Phone: [facility] Work Phone: 12-27-2021 14:10-0400 Heart rate 80 /min Dr. Jesus Davila Work Phone: [facility] Work Phone: 12-27-2021 14:10-0400 Respiratory rate 16 /min Dr. Jesus Davila Work Phone: [facility] Work Phone: 12-27-2021 14:10-0400 SaO2% (BldA) [Mass fraction] 95 % Dr. Jesus Davila Work Phone: [facility] Work Phone: 12-27-2021 14:10-0400 Systolic blood pressure 125 mm[Hg] Dr. Jesus Davila Work Phone: [facility] Work Phone: NEGATED: Highlighted [id number] 08:12-0400 Body height 154.94 cm [facility] Work Phone: NEGATED: Highlighted [id number] 08:12-0400 Body height 155 cm [facility] Work Phone: NEGATED: Highlighted [id number] 08:12-0400 Body mass index (BMI) [Ratio] 45.51 kg/m2 [facility] Work Phone: NEGATED: Highlighted [id number] 08:12-0400 Body weight 108.86 kg [facility] Work Phone: NEGATED: Highlighted [id number] 08:12-0400 Body weight 109 kg [facility] Work Phone: NEGATED: Highlighted [id number] 13:34-0500 Body height 154.94 cm Tracy Theodore AT [facility] Work Phone: NEGATED: Highlighted [id number] 13:34-0500 Body height 155 cm Tracy Arben AT [facility] Work Phone: NEGATED: Highlighted [id number] 13:34-0500 Body mass index (BMI) [Ratio] 45.51 kg/m2 Tracy Arben AT [facility] Work Phone: NEGATED: Highlighted [id number] 13:34-0500 Body weight 108.86 kg Tracy Arben AT [facility] Work Phone: NEGATED: Highlighted [id number] 13:34-0500 Body weight 109 kg Tracy Arben AT [facility] Work Phone: Encounters Encounter Date Encounter Type Care Provider Facility Start: 05-01-2025 ambulatory [facility] Emergency [facility] Facility: [facility] Start: 04-30-2025 End: 04-30-2025 Patient encounter procedure Edward DAVISON [facility] Work Phone: Start: 04-30-2025 End: 04-30-[address] Jesus Davila MD Work Phone: [facility] Start: 04-29-2025 End: 04-29-2025 Refill Jesus Davila MD Work Phone: [facility] Comment on above: Refill Request Start: 04-28-2025 End: 04-28-2025 Telephone encounter Nicole Valles APRN.CNP Work Phone: Pre Anesthesia Comment on above: Preparations For Charley zach Start: 04-15-2025 End: 04-22-2025 Telephone encounter Ayush Mccall MD Work Phone: Orthopaedics Comment on above: Appointment (Post-op physical therapy) Start: 04-08-2025 End: 04-08-2025 Office outpatient visit 25 minutes Jesus Davila MD Work Phone: Internal Medicine [facility] Comment on above: Heart failure with p reserved ejection fraction, unspecified HF chronicity (HCC) (Primary Dx); Myalgia; Type 2 diabetes mellitus with stage 3b chronic kidney disease, with long-term current use of insulin (HCC); Encounter for screening examination for other mental health and behavioral disorders; Type 2 diabetes mellitus with stage 3a chronic kidney disease, with long-term current use of insulin (HCC); Edema, unspecified type; Gout, unspecified cause, unspecified chronicity, unspecified site; Dementia without behavioral disturbance (HCC); Depression, recurrent Start: 04-08-2025 End: 04-08-2025 ambulatory JESUS DAVILA Facility:[facility] Start: 04-03-2025 End: 04-03-2025 Orders Only Ayush Mccall MD Work Phone: Orthopaedics Comment on above: Osteoarthritis of ri ght glenohumeral joint (Primary Dx) Start: 03-20-2025 End: 03-20-2025 ambulatory AYUSH MCCALL Facility:[facility] Start: 03-20-2025 End: 03-20-2025 Patient encounter procedure Ayush Mccall MD Work Phone: Orthopedics Comment on above: Osteoarthritis of ri ght glenohumeral joint (Primary Dx); Osteoarthritis of left glenohumeral joint Start: 03-16-2025 End: 03-17-2025 Emergency department patient visit Dr. Jesus Davila MD Work Phone: -Emergency Department Work Phone: Start: 03-16-2025 End: 03-16-2025 ambulatory JESUS DAVILA Facility:[facility] Start: 03-16-2025 End: 03-16-2025 Patient encounter procedure Carlos Tai APRN.CNP Work Phone: [facility] Comment on above: Vaginal bleeding (Pr imary Dx); Postmenopausal bleeding Start: 03-10-2025 End: 03-11-2025 Refill Jennifer Gregory APRN.[employer] Work Phone: [facility] Comment on above: Refill Request Start: 02-23-2025 End: 02-23-2025 ambulatory Jesus Davila MD Work Phone: [facility] [place] Start: 02-23-2025 End: 02-23-2025 Patient encounter procedure Jesus Davila MD Work Phone: [facility] Comment on above: Population Health Na vigation Outreach ([facility] Dementia without beh avioral disturbance, psychotic disturbance, mood disturbance, or anxiety, unspecified dementia severity, unspecified dementia type (HCC) (Primary Dx); ABDI on CPAP Start: 02-13-2025 End: 02-17-2025 Telephone encounter Ayush Mccall MD Work Phone: [facility] Comment on above: Appointment Start: 01-28-2025 End: 02-09-2025 ambulatory Jesus Davila MD Work Phone: [facility] Comment on above: Unknown path forward Start: 01-20-2025 End: 01-20-2025 Patient encounter procedure Arslan Ugarte MD Work Phone: Orthopaedics Comment on above: Primary osteoarthrit is of both shoulders; Presence of artificial hip joint, bilateral; Presence of artificial knee joint, bilateral; Difficulty in walking, not elsewhere classified; Muscle weakness (generalized) Start: 01-20-2025 End: 01-20-2025 ambulatory ARSLAN UGARTE Facility:[facility] Start: 01-19-2025 End: 01-19-2025 Follow-up encounter Jesus Davila MD Work Phone: [facility] Start: 01-12-2025 ambulatory JESUS DAVILA Faci lity:[facility] Start: 01-12-2025 End: 01-12-2025 Subsequent hospital visit by physician Screen Mammo [facility] Mamm[facility] Comment on above: Arrived Start: 12-30-2024 End: 12-30-2024 Subsequent hospital visit by physician Xr [facility] Work Phone: Radiology Comment on above: Multiple joint pain [M25.50] Start: 12-30-2024 End: 12-30-2024 Office outpatient visit 25 minutes Jesus Davila MD Work Phone: [facility] Comment on above: Chronic pain syndrom e (Primary Dx); Multiple joint pain; Physical debility; Depression, recurrent Start: 12-30-2024 End: 12-30-2024 ambulatory JESUS DAVILA Facility:[facility] Start: 12-29-2024 End: 12-29-2024 Refill Akilah Pena MD Work Phone: Neurology Comment on above: Refill Request Start: 12-15-2024 End: 12-19-2024 Telephone encounter Jesus Davila MD Work Phone: [facility] Comment on above: Orders (mammogram or jovanni ) Start: 11-28-2024 End: 11-28-2024 ambulatory [facility] [place] Start: 11-28-2024 End: 11-28-2024 Patient encounter procedure Jesus Davila MD Work Phone: [facility] Comment on above: Population Health Na vigation Outreach ([facility] ) Start: 11-26-2024 End: 11-26-2024 Telephone encounter Jesus Davila MD Work Phone: Internal Medicine [facility] Comment on above: Bone density testing Start: 11-20-2024 End: 11-20-2024 ambulatory BLAKE EARLY Facility:[facility] Start: 11-20-2024 End: 11-20-2024 Patient encounter procedure Blake Early MD Work Phone: [facility] Comment on above: Type 2 diabetes shraddha itus with diabetic neuropathy, with long- term current use of insulin (HCC) (Primary Dx); Postsurgical hypothyroidism; Hypoglycemia Start: 11-08-2024 End: 11-10-2024 ambulatory Jesus Davila MD Work Phone: [facility] Comment on above: Repatha Start: 10-29-2024 End: 10-29-2024 ambulatory JESUS DAVILA Facility:[facility] Start: 10-29-2024 End: 10-29-2024 Patient encounter procedure Loraine Tadeogs ELEVATOR INSTALLER.[employer] Work Phone: [facility] Comment on above: Abscess of labia kylee ora (Primary Dx) Start: 10-27-2024 End: 10-28-2024 Refill Jamee Weinstein ELEVATOR INSTALLER.[employer] Work Phone: [facility] Comment on above: Refill Request Start: 10-08-2024 End: 10-13-2024 ambulatory Jesus Davila MD Work Phone: [facility] Comment on above: Medicare AWV Start: 10-06-2024 End: 10-06-2024 ambulatory INEZ LANTIGUA Facility:[facility] Start: 10-06-2024 End: 10-06-2024 Patient encounter procedure Inez Lantigua MD Work Phone: [facility] Comment on above: Medicare annual well ness visit, subsequent (Primary Dx) Start: 10-02-2024 End: 10-02-2024 ambulatory JESUS DAVILA Facility:[facility] Start: 09-25-2024 End: 09-26-2024 Telephone encounter Inez Lantigua MD Work Phone: [facility] Comment on above: Lab Orders Start: 08-25-2024 End: 08-25-2024 ambulatory Max Best MD Work Phone: [facility] Comment on above: Type 2 diabetes shraddha itus with stage 3b chronic kidney disease, with long-term current use of insulin (HCC) (Primary Dx) Start: 08-25-2024 End: 08-25-2024 Telemedicine consultation with patient Max Best MD Work Phone: [facility] Start: 08-15-2024 End: 08-15-2024 ambulatory Catherine Pompa RN Work Phone: [employer] Comment on above: community monitoring (CDM telephonic/) Start: 08-14-2024 End: 08-14-20[facility] [place] Start: 08-14-2024 End: 08-14-2024 Patient encounter procedure Tia Black MA [facility] [place] Comment on above: Population Health Na vigation Outreach ([employer]/[facility] ) Start: 08-05-2024 End: 08-05-2024 ambulatory Catherine Pompa RN Work Phone: [employer] Comment on above: community monitoring (CDM telephonic/) Start: 07-31-2024 End: 08-01-2024 Refill Jamee Weinstein APRN.CNP Work Phone: [facility] Comment on above: Refill Request Start: 07-30-2024 End: 07-30-2024 Telephone encounter Max Best MD Work Phone: [facility] Comment on above: Forms (Diabetic shoe form) Start: 07-28-2024 End: 07-28-2024 Telephone encounter Akilah Pena MD Work Phone: Neurology Comment on above: Compliance Report Start: 07-25-2024 End: 07-25-2024 ambulatory AKILAH PENA JR Facility:[facility] Start: 07-25-2024 End: 07-25-2024 Patient encounter procedure Akilah Pena MD Work Phone: Neurology Comment on above: Dementia without beh avioral disturbance, psychotic disturbance, mood disturbance, or anxiety, unspecified dementia severity, unspecified dementia type (HCC) (Primary Dx); ABDI on CPAP Start: 07-17-2024 End: 07-22-2024 Telephone encounter Jesus Davila MD Work Phone: [facility] Comment on above: Appointment Start: 07-10-2024 End: 07-10-2024 ambulatory Tia Black MA [facility] [place] Start: 07-10-2024 End: 07-10-2024 [facility] [place] Comment on above: Population Health Na vigation Outreach ([employer]/[facility] ) Start: 07-09-2024 End: 07-12-2024 ambulatory Max Best MD Work Phone: [facility] Comment on above: Bg 54 and below 100 10 of 20 suppers Start: 07-07-2024 End: 07-07-2024 ambulatory Catherine Pompa RN Work Phone: [employer] Comment on above: community monitoring (CDM telephonic/) Start: 06-28-2024 End: 06-28-2024 Emergency department patient visit Jesus Davila Facility:[facility] Start: 06-15-2024 End: 06-15-2024 ambulatory Catherine Pompa RN Work Phone: [employer] Comment on above: community monitoring (CDM telephonic/) Start: 06-09-2024 End: 06-10-2024 ambulatory Max Best MD Work Phone: [facility] Comment on above: Levothyroxin dosage Refill Request Start: 06-02-2024 End: 06-02-2024 ambulatory Catherine Pompa RN Work Phone: [employer] Comment on above: community monitoring (CDM telephonic/) Start: 05-30-2024 End: 05-30-2024 ambulatory Catherine Pompa RN Work Phone: [employer] Comment on above: community monitoring (CDM telephonic/) Start: 05-23-2024 End: 05-23-2024 ambulatory MAX BEST Facility:[facility] Start: 05-16-2024 End: 05-16-2024 Telephone encounter Max Best MD Work Phone: [facility] Comment on above: MSC chart note reque st Start: 05-15-2024 End: 05-16-2024 Telephone encounter Max Best MD Work Phone: [facility] Start: 05-15-2024 End: 05-15-2024 ambulatory Max Best MD Work Phone: [facility] Comment on above: Type 2 diabetes shraddha itus with stage 3b chronic kidney disease, with long-term current use of insulin (HCC) (Primary Dx) Start: 05-15-2024 End: 05-15-2024 Telemedicine consultation with patient Max Best MD Work Phone: [facility] Start: 05-13-2024 End: 05-13-2024 ambulatory Jesus Davila Facility:[facility] Start: 05-06-2024 End: 05-06-2024 ambulatory CLYDE BELTRAN Facility:[facility] Start: 05-06-2024 End: 05-06-2024 Office outpatient visit 15 minutes Clyde Beltran MD Work Phone: Orthopaedics Comment on above: Primary osteoarthrit is of left hip (Primary Dx) Start: 05-02-2024 End: 05-02-2024 ambulatory Catherine Pompa RN Work Phone: [employer] Comment on above: community monitoring (CDM telephonic/) Start: 04-08-2024 End: 04-08-2024 Subsequent hospital visit by physician Xr [facility] Parra Work Phone: Radiology Comment on above: Status post left hip replacement [Z96.642] Start: 04-03-2024 ambulatory Catherine garcia RN Work Phone: [employer] Start: 04-03-2024 End: 04-03-2024 Subsequent hospital visit by physician Xr [facility] Work Phone: Radiology Comment on above: Acute cough [R05.1] Start: 04-03-2024 End: 04-03-2024 Patient encounter procedure Reny Yap APRN.CNP Work Phone: [facility] Comment on above: Acute cough (Primary Dx); Rhinosinusitis Start: 03-18-2024 End: 03-18-2024 Patient encounter procedure Kenzie Fairbanks PA-C Work Phone: Neurology Comment on above: Dyspnea on exertion (Primary Dx); Bilateral lower extremity edema; ABDI on CPAP; Dementia without behavioral disturbance, psychotic disturbance, mood disturbance, or anxiety, unspecified dementia severity, unspecified dementia type (HCC) Start: 03-06-2024 ambulatory Catherine garcia RN Work Phone: [employer] Comment on above: community monitoring (CDM telephonic/) Start: 03-04-2024 Refill Sangita Kalina Jones ELEVATOR INSTALLER.[employer] Work Phone: [facility] Comment on above: Refill Request Start: 03-03-2024 Refill Max matias MD Work Phone: Internal [facility] Comment on above: Refill Request Start: 02-25-2024 ambulatory Akilah aggarwal PA-C Work Phone: Orthopaedics Start: 02-25-2024 Patient encounter procedure Akilah Rowe PA-C Work Phone: Orthopaedics Comment on above: Proposed dental work Start: 02-20-2024 ambulatory Max matias MD Work Phone: [facility] Comment on above: New script for Novol og Start: 02-18-2024 Telephone encounter Emily Lopez [facility] Comment on above: Fabric Transition of Care Start: 02-15-2024 End: 02-15-2024 Postop follow up visit related to original px Akilah Rowe PA-C Work Phone: Orthopaedics Comment on above: Status post hip repl acement, left (Primary Dx) Start: 02-14-2024 Telephone encounter Max valdes MD Work Phone: [facility] Start: 02-14-2024 End: 02-14-2024 ambulatory Max Best MD Work Phone: [facility] Comment on above: Type 2 diabetes shraddha itus with stage 3b chronic kidney disease, with long-term current use of insulin (HCC) (Primary Dx); Thyroid cancer (HCC) Start: 02-14-2024 End: 02-14-2024 Telemedicine consultation with patient Max Best MD Work Phone: [facility] Start: 02-14-2024 End: 02-14-2024 Home visit Korin Singh OT Work Phone: [facility] Comment on above: OT DISC DC W VISIT PT AGENCY DC W VISIT Start: 02-11-2024 End: 02-11-2024 Home visit Julissa Boyd CLINICAL INVESTIGATOR Work Phone: [facility] Comment on above: CLINICAL INVESTIGATOR ROUTINE Start: 02-11-2024 Telephone encounter Emily Lopez [facility] Comment on above: Fabric Transition of Care Start: 02-10-2024 Refill Katherine NORWOODOPER[employer] MANA[employer]ESSION[employer] Work Phone: Internal Medicine [facility] Comment on above: Refill Request Start: 02-08-2024 End: 02-08-2024 Home visit Maddy Ismael HOLGUIN/L Work Phone: [facility] Comment on above: HOLGUIN ROUTINE CLINICAL INVESTIGATOR ROUTINE Start: 02-07-2024 ambulatory Catherine garcia RN Work Phone: [employer] Comment on above: community monitoring (CDM telephonic/) Start: 02-06-2024 End: 02-06-2024 Home visit Maddy Ismael HOLGUIN/L Work Phone: [facility] Comment on above: HOLGUIN ROUTINE Start: 02-05-2024 End: 02-05-2024 Patient Outreach Loraine Campos RN Work Phone: [employer] Comment on above: Transition Of Care ( TCM Single Outreach for Worsening Symptoms ) CLINICAL INVESTIGATOR ROUTINE Start: 02-05-2024 Telephone encounter Emily Lopez [facility] Comment on above: PostOp Follow-up Start: 02-02-2024 Home visit Roberta barkley RN Work Phone: [facility] Comment on above: HH TRIAGE PHONE CALL Start: 01-31-2024 End: 01-31-2024 Home visit Charlotte Jenkins PT Work Phone: [facility] Comment on above: PT ROUTINE OT EVAL Start: 01-29-2024 End: 01-29-2024 Home visit Xochilt Caballero RN Work Phone: [facility] Comment on above: CARE COORDINATION Start: 01-29-2024 Telephone encounter Max valdes MD Work Phone: [facility] Comment on above: Refill Request Start: 01-28-2024 End: 01-28-2024 Home visit Julissa Boyd CLINICAL INVESTIGATOR Work Phone: [facility] Comment on above: CLINICAL INVESTIGATOR ROUTINE Start: 01-26-2024 Telephone encounter George Cummings pp PT Work Phone: [facility] Comment on above: Home Care (Medicatio n update) Start: 01-26-2024 End: 01-26-2024 Home visit George Chrissyp PT Work Phone: [facility] Comment on above: PT SOC Start: 01-25-2024 ambulatory Claire Morelos MA [facility] [place] Start: 01-25-2024 Patient encounter procedure Claire Morelos MA [facility] [place] Comment on above: Population Health Na vigation Outreach (TCM/GYANT Navigation Outreach/) Start: 01-25-2024 Telephone encounter Emily Lopez [facility] Comment on above: PostOp Follow-up Home Care (PT SOC Co nfirmation Call ) Start: 01-21-2024 Telephone encounter Grayson hernandez PSS [facility] Comment on above: Home Care (Confirmat ion Call) Start: 01-15-2024 End: 01-16-2024 Emergency department patient visit Dr. Jesus Davila Work Phone: [facility]-Emergency Department Work Phone: Start: 01-15-2024 ambulatory Max matias MD Work Phone: [facility] Comment on above: Pre op HBA1C miracle ! Start: 01-15-2024 Telephone encounter Claire Bravo RN Pre Anesthesia Start: 01-14-2024 Telephone encounter Akilah Pena MD Work Phone: Neurology Comment on above: Results Start: 01-11-2024 ambulatory AKILAH PENA Facilit y:[facility] Start: 01-11-2024 End: 01-11-2024 Subsequent hospital visit by physician [facility] Work Phone: [facility] Radiology Ultrasound Comment on above: Dyspnea on exertion [R06.09] Start: 01-11-2024 Telephone encounter Nemo Bynum MD Work Phone: [facility] Comment on above: Consult (Geriatric P re Surgical Clearance ) Start: 01-10-2024 Telephone encounter Randal ROSA Orthopaedics Comment on above: Floor Coverer Apprentice - O ther Start: 01-09-2024 ambulatory Catherine garcia RN Work Phone: [employer] Comment on above: community monitoring (CDM telephonic/) Start: 01-09-2024 Documentation procedure Mammography Coordinator [facility] Start: 01-09-2024 Letter encounter Mammography Coordinator [facility] Start: 01-09-2024 End: 01-09-2024 Admission to establishment [place] [id number] Work Phone: Pre Anesthesia Start: 01-09-2024 End: 01-09-2024 Anesthesia consultation [place] [id number] Work Phone: Pre Anesthesia Comment on above: Pre-op evaluation (P rimary Dx); Type 2 diabetes mellitus with diabetic neuropathy, with long-term current use of insulin ([facility]); Arteriosclerotic heart disease (ASHD); Heart failure with preserved ejection fraction, unspecified HF chronicity ([facility]); ABDI treated with BiPAP; GERD without esophagitis; S/P laparoscopic sleeve gastrectomy; Fatty liver; Chronic kidney disease, stage IV (severe) ([facility]); History of thyroid cancer; Anemia, unspecified type; Cognitive impairment; Hyperlipidemia, unspecified hyperlipidemia type; Edema, unspecified type Start: 01-09-2024 End: 01-09-2024 Preprocedural examination done [place] [address] Work Phone: [facility] Work Phone: Start: 01-09-2024 End: 01-09-2024 Subsequent hospital visit by physician Xr [facility] Work Phone: Radiology Comment on above: Primary osteoarthrit is of left hip [M16.12] Start: 01-07-2024 End: 01-07-2024 Patient encounter procedure Akilah Pena MD Work Phone: Neurology Comment on above: Dyspnea on exertion (Primary Dx); Bilateral lower extremity edema; Diabetic polyneuropathy associated with type 2 diabetes mellitus (HCC); Dementia without behavioral disturbance, psychotic disturbance, mood disturbance, or anxiety, unspecified dementia severity, unspecified dementia type (HCC); ABDI (obstructive sleep apnea) Start: 01-07-2024 End: 01-07-2024 Subsequent hospital visit by physician Screen Mammo [facility] Mammogram Comment on above: Screening mammogram for breast cancer [Z12.31] Start: 01-06-2024 Refill Max matias MD Work Phone: [facility] Comment on above: Refill Request Start: 12-31-2023 ambulatory Max matias MD Work Phone: [facility] Comment on above: burning with Toujeo? Start: 12-31-2023 E-mail encounter fro m caregiver Max Best MD Work Phone: [facility] Start: 12-24-2023 ambulatory Akilah aggarwal PA-C Work Phone: Orthopaedics Comment on above: upcoming mammogram Start: 12-12-[address] [facility] Melyssa Glass RN Work Phone: Orthopaedics Comment on above: Schedule Surgery (LT CRUZ @ on 01/21/2024) Start: 12-12-2023 ambulatory Catherine garcia RN Work Phone: [employer] Comment on above: community monitoring ([facility] telephonic/) Start: 12-12-2023 End: 12-12-2023 Patient encounter procedure Clyde Beltran MD Work Phone: Orthopaedics Comment on above: Primary osteoarthrit is of left hip (Primary Dx) Start: 12-12-2023 End: 12-12-2023 Subsequent hospital visit by physician Xr [facility] Re[facility] Work Phone: Radiology Comment on above: Primary osteoarthrit is of left hip [M16.12] Start: 12-03-2023 Refill Jamee lopez APRN.CNP Work Phone: Internal Medicine [place] Comment on above: Refill Request Start: 11-17-2023 ambulatory Akilah doss MD Work Phone: Neurology Comment on above: BiPaP usage and Done pezil results Start: 11-14-2023 ambulatory Catherine garcia RN Work Phone: [employer] Comment on above: community monitoring (CDM telephonic/) Start: 11-14-2023 Patient encounter procedure Max Best MD Work Phone: [facility] Comment on above: Annual authorization for [facility] Start: 10-25-2023 ambulatory Akilah aggarwal PA-C Work Phone: Orthopaedics Comment on above: Dental cleaning appt . Start: 10-25-2023 End: 10-25-[address] Jesus Davila Work Phone: [facility] Work Phone: Start: 10-24-[address] [facility] Max Best MD Work Phone: [facility] Comment on above: Surgery approved Start: 10-24-2023 ambulatory Akilah aggarwal PA-C Work Phone: Orthopaedics Comment on above: Upcoming dental work Great news! Start: 10-24-2023 Telephone encounter Max valdes MD Work Phone: [facility] Comment on above: Appointment Start: 10-23-2023 End: 10-23-2023 ambulatory Max Best MD Work Phone: [facility] Comment on above: Type 2 diabetes shraddha itus with diabetic neuropathy, with long- term current use of insulin ([facility]) Start: 10-23-2023 End: 10-23-2023 Telemedicine consultation with patient Max Best MD Work Phone: [facility] Start: 10-22-2023 Admission to [facility] Akilah Rowe PA-C Work Phone: Orthopaedics Comment on above: Postponed Surgery Start: 10-22-2023 ambulatory Akilah aggarwal PA-C Work Phone: [facility] Start: 10-17-2023 ambulatory Catherine garcia RN Work Phone: [employer] Comment on above: community monitoring (CDM telephonic/) Start: 08-23-2023 End: 08-23-2023 Patient encounter procedure Jesus Davila MD Work Phone: [facility] Comment on above: Acute gout, unspecif ied cause, unspecified site (Primary Dx); Type 2 diabetes mellitus with diabetic neuropathy, with long-term current use of insulin (HCC); Anemia, unspecified type; Edema, unspecified type Start: 08-22-2023 Refill Jamee lopez APRN.CNP Work Phone: [facility] Comment on above: Refill Request Start: 08-15-2023 ambulatory Max matias MD Work Phone: [facility] Comment on above: New script for new D excom supplier Start: 08-06-2023 Refill Jesus hoang MD Work Phone: [facility] Comment on above: Refill Request Start: 07-28-2023 ambulatory Max matias MD Work Phone: [facility] Comment on above: Bhakti's condition Start: 07-27-2023 Telephone encounter Max valdes MD Work Phone: [facility] Start: 07-26-2023 End: 07-26-2023 ambulatory Max Best MD Work Phone: [facility] Comment on above: Type 2 diabetes shraddha itus with diabetic neuropathy, with long- term current use of insulin (HCC) (Primary Dx); Thyroid cancer (HCC) Start: 07-26-2023 End: 07-26-2023 Telemedicine consultation with patient Max Best MD Work Phone: [facility] Start: 07-25-2023 ambulatory Catherine garcia RN Work Phone: [employer] Comment on above: community monitoring (CDM telephonic//) Start: 07-13-2023 ambulatory Max matias MD Work Phone: [facility] Comment on above: Dexcom data Start: 07-09-[address] [facility] Max Best MD Work Phone: [facility] Comment on above: Low BG levels cancel hip surgery Start: 07-09-2023 ambulatory Max matias MD Work Phone: [facility] Start: 07-04-2023 End: 07-04-[address] Jesus Davila Work Phone: [facility] Work Phone: Start: 07-04-2023 End: 07-04-[address] Jesus Davila Work Phone: [facility]Laboratory Work Phone: Start: 07-02-2023 Refill Jamee Older ELEVATOR INSTALLER .[employer] Work Phone: [facility] Comment on above: Refill Request Start: 06-28-2023 Telephone encounter Randal ROSA Orthopaedics Comment on above: Floor Coverer Apprentice - O ther Start: 06-27-2023 ambulatory Catherine garcia RN Work Phone: [employer] Comment on above: community monitoring (CDM telephonic/) Start: 06-20-2023 End: 06-20-2023 Patient encounter procedure Jesus Davila MD Work Phone: [facility] Comment on above: Fall, subsequent enc ounter (Primary Dx); Need for influenza vaccination; Abrasion of face, subsequent encounter; Multiple contusions; Rib pain on left side; Type 2 diabetes mellitus with diabetic neuropathy, with long-term current use of insulin (HCC); Type 2 diabetes mellitus with stage 3a chronic kidney disease, with long-term current use of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 [place] [address] Jesus Davila MD [address] [place] [address] Annual Medicare Wellness w/6 month follow-up [facility] Comment on above: Annual Medicare Wellness w/6 month follo w-up Start: 10-06-2025 Annual PCP Team Chronic Disease Visit Annual PCP Team Chronic Disease Visit [facility] Start: 10-02-2025 Creatinine measurement Serum Creatinine [facility] Start: 10-02-2025 Hepatitis B screening Urine Albumin:Creatinine Ratio [facility] Start: 10-02-2025 Hepatitis B surface antibody level LDL Cholesterol [facility] Start: 09-18-2025 End: 09-18-2025 Patient encounter procedure 09/18/2025 3:40 PM EST Office Visit Neurology [address] [place] [address] Akilah Pena Jr., MD [address] [place], [place] [address] six month follow up Neurology Comment on above: six month follow up Start: 08-28-2025 Glaucoma screening Dilated Retinal Exam [facility] Start: 07-10-2025 End: 07-10-2025 Patient encounter procedure 07/10/2025 1:00 PM EDT Office Visit Orthopedics [address] [place] [phone] Halina Bui PA-C [address] [place] [address] S/P Right RTSA 05-15-2025 Orthopedics Comment on above: S/P Right RTSA 05-15-2025 Start: 06-24-2025 End: 06-24-2025 ambulatory 06/24/2025 2:00 PM EDT [facility] [address] [place] [address] [place] [address] [facility] [address] [place] [address] 6 months (around 05/23/2025) [facility] Comment on above: 6 months (around 05/23/2025) Start: 05-29-2025 End: 05-29-2025 Patient encounter procedure 05/29/2025 1:45 PM EDT Office Visit Orthopedics [address] [facility] [address] [place] [phone] Ayush Mccall MD [address] [facility] [address] [place] [address] S/P Right RTSA 05-15-2025 Orthopedics Comment on above: S/P Right RTSA 05-15-2025 Start: 05-23-2025 End: 08-22-2025 Basic metabolic 2000 panel - Serum or Plasma BASIC METABOLIC PANEL Lab Routine Type 2 diabetes mellitus with diabetic neuropathy, with long-term current use of insulin (HCC) Expected: 05/23/2025 (Approximate), Expires: 08/22/2025 [facility] Comment on above: Expected: 05/23/2025 (Approximate), Expi res: 08/22/2025 Start: 05-23-2025 End: 08-22-2025 Hemoglobin A1c in Blood HEMOGLOBIN A1C Lab Routine Type 2 diabetes mellitus with diabetic neuropathy, with long-term current use of insulin (HCC) Expected: 05/23/2025 (Approximate), Expires: 08/22/2025 [facility] Comment on above: Expected: 05/23/2025 (Approximate), Expi res: 08/22/2025 Start: 05-23-2025 End: 08-22-2025 Thyroglobulin and Thyrogobulin Ab panel - Serum or Plasma THYROGLOBULIN, SERUM WITH REFLEX TO IA OR LC-MS/MS Lab Routine Postsurgical hypothyroidism Expected: 05/23/2025 (Approximate), Expires: 08/22/2025 [facility] Comment on above: Expected: 05/23/2025 (Approximate), Expi res: 08/22/2025 Start: 05-23-2025 End: 08-22-2025 Thyrotropin [Units/volume] in Serum or Plasma THYROID STIMULATING HORMONE Lab Routine Postsurgical hypothyroidism Expected: 05/23/2025 (Approximate), Expires: 08/22/2025 [facility] Work Phone: Comment on above: Expected: 05/23/2025 (Approximate), Expi res: 08/22/2025 Start: 05-23-2025 End: 08-22-2025 Thyroxine (T4) free [Mass/volume] in Serum or Plasma T4 FREE/FREE THYROXINE Lab Routine Postsurgical hypothyroidism Expected: 05/23/2025 (Approximate), Expires: 08/22/2025 [facility] Comment on above: Expected: 05/23/2025 (Approximate), Expi res: 08/22/2025 Start: 05-22-2025 End: 05-22-2025 ambulatory 05/22/2025 1:30 PM EDT OT/PT/Speech Visit [facility] [address] [place] [address] Luisito Campoverde, PT [address] [facility] [place] [id number] post op reverse shoulder replacement [facility] Comment on above: post op reverse shoulder replacement Start: 05-15-2025 End: 05-15-2025 Admission to same day surgery center 05/15/2025 7:30 AM EDT - 05/15/2025 9:16 AM EDT Surgery [facility] Surgery [address] [place] [address] Ayush Mccall MD [address] [place] [address] [place] [address] REVERSE TOTAL SHOULDER ARTHROPLASTY [facility] Surgery Comment on above: REVERSE TOTAL SHOULDER ARTHROPLASTY Start: 05-15-2025 End: 05-15-2025 Arthroplasty glenohumeral joint total shoulder REVERSE TOTAL SHOULDER ARTHROPLASTY Osteoarthritis of right glenohumeral joint 05/15/2025 7:30 AM EDT [place] OR Start: 05-15-2025 Subsequent hospital visit by physician 05/15/2025 7:30 AM EDT Hospital Encounter [facility] Surgery [address] [place] [address] Ayush Mccall MD [address] [place] [address] [place], [place] [id number] Osteoarthritis of right glenohumeral joint [M19.011] [facility] Surgery Comment on above: Osteoarthritis of right glenohumeral martín nt [M19.011] Start: 05-13-2025 End: 05-13-2025 Admission to same day surgery center 05/13/2025 9:00 AM EDT - 05/13/2025 11:15 AM EDT Surgery [address] [address] Ayush Mccall MD [address] [place] [address] [place] [address] REVERSE TOTAL SHOULDER ARTHROPLASTY [facility] Comment on above: REVERSE TOTAL SHOULDER ARTHROPLASTY Start: 05-13-2025 End: 05-13-2025 Arthroplasty glenohumeral joint total shoulder REVERSE TOTAL SHOULDER ARTHROPLASTY Osteoarthritis of right glenohumeral joint 05/13/2025 9:00 AM EDT [place] Start: 05-13-2025 Subsequent hospital visit by physician 05/13/2025 9:00 AM EDT Hospital Encounter [address] [address] Ayush Mccall MD [address] [place] [address] [place] [address] Osteoarthritis of right glenohumeral joint [M19.011] [facility] Comment on above: Osteoarthritis of right glenohumeral martín nt [M19.011] Start: 05-11-2025 Influenza vaccination [facility] Start: 05-08-2025 End: 05-08-2025 ambulatory 05/08/2025 1:40 PM EDT PAT Pre Surgical Testing [address] [place] [address] REVERSE TOTAL SHOULDER ARTHROPLASTY Pre Surgical Testing Comment on above: REVERSE TOTAL SHOULDER ARTHROPLASTY Start: 04-28-2025 End: 04-28-2025 Anesthesia consultation 04/28/2025 2:00 PM EDT PAT Pre Anesthesia [address] [place] [address] 1, [facility] [address] [place] [address] HDAI -9/5-REVERSE TOTAL SHOULDER ARTHROPLASTY [10184] - Shoulder - Right Pre Anesthesia Comment on above: HDAI -9/5-REVERSE TOTAL SHOULDER ARTHROP LASTY [71168] - Shoulder - Right Start: 04-08-2025 End: 04-08-2025 Patient encounter procedure [facility] Comment on above: Rescheduled from 04/06 please address HCCs Start: 04-06-2025 End: 04-06-2025 Patient encounter procedure [facility] Comment on above: 6 mo follow up 6 mo follow up-discu ss BDS if not completed. Start: 04-01-2025 Hemoglobin A1c measurement HbA1C [facility] Start: 03-20-2025 End: 03-20-2025 Patient encounter procedure 03/20/2025 3:00 PM EDT Office Visit Orthopedics [address] [facility] [address] [place] [phone] Ayush Mccall MD [address] [facility] [facility] [address] [place] [address] Bilateral Shoulder Pain (XRAYS in EPIC) Orthopedics Comment on above: Bilateral Shoulder Pain (XRAYS in EPIC) Start: 03-17-2025 End: 03-17-2025 [facility] Start: 02-23-2025 End: 02-23-2025 Patient encounter procedure 02/23/2025 3:40 PM EDT Office Visit Neurology [address] [place], [place] [phone] Akilah Pena Jr., MD [address] [place], [place] [phone] 7 month follow up, needs 60 min Neurology Comment on above: 7 month follow up, needs 60 min Start: 01-23-2025 Complete blood count Hemoglobin/Hematocrit [facility] Start: 01-23-2025 Creatinine measurement Serum Creatinine [facility] Start: 01-21-2025 Complete blood count Hemoglobin/Hematocrit [facility] Start: 01-21-2025 Creatinine measurement Serum Creatinine [facility] Start: 01-20-2025 End: 01-20-2025 Patient encounter procedure 01/20/2025 3:15 PM EDT Office Visit Orthopaedics [address] [address] Arslan Ugarte MD [address] [place] [address] Primary osteoarthritis of both shoulders [M19.011, M19.012] Orthopaedics Comment on above: Primary osteoarthritis of both shoulders [M19.011, M19.012] Start: 01-12-2025 End: 01-12-2025 Patient encounter procedure 01/12/2025 2:10 PM EDT Appointment Mammogram [address] [place] [address] Dx: Type 2 diabetes mellitus with stage 3b chronic kidney disease, with long-term current use of insulin (HCC) [E11.22, N18.32, Z79.4] Mammogram Comment on above: Dx: Type 2 diabetes mellitus with stage 3b chronic kidney disease, with long-term current use of insulin (HCC) [E11.22, N18.32, Z79.4] Start: 01-08-2025 Complete blood count Hemoglobin/Hematocrit [facility] Start: 01-08-2025 Creatinine measurement Serum Creatinine [facility] Start: 12-30-2024 End: 12-30-2024 Patient encounter procedure 12/30/2024 9:20 AM EDT Office Visit [facility] [address] [place] [address] Jesus Davila MD [address] [place] [address] All-over body aches and pains [facility] Comment on above: All-over body aches and pains Start: 11-30-2024 Covid-19 Vaccine ( season) Covid-19 Vaccine ( season) [facility] Start: 11-30-2024 Covid-19 Vaccine ( season) Covid-19 Vaccine () [facility] Start: 11-20-2024 End: 11-20-2024 Patient encounter procedure 11/20/2024 3:00 PM EDT Office Visit [facility] [id number] [place] [phone] [place] [address] [address] NEW DM/THYROID * dr best patient [facility] Comment on above: NEW DM/THYROID * dr best patient Start: 11-20-2024 Hemoglobin A1c measurement HbA1C [facility] Start: 11-13-2024 End: 11-13-2024 Patient encounter procedure 11/13/2024 3:00 PM EST Office Visit [facility] [id number] [place] [phone] [place] [address] [address] NEW DM/THYROID * dr best patient [facility] Comment on above: NEW DM/THYROID * dr best patient Start: 10-06-2024 End: 10-06-2024 Patient encounter procedure 10/06/2024 1:00 PM EST Office Visit [facility] [address] [place] [address] Inez Latnigua MD [address] [place] [address] Annual Wellness Exam [facility] Comment on above: Annual Wellness Exam Start: 10-03-2024 Annual PCP Team Chronic Disease Visit Annual PCP Team Chronic Disease Visit [facility] Start: 09-26-2024 End: 12-26-2024 CBC panel - Blood by Automated count COMPLETE BLOOD COUNT Lab Routine Anemia, unspecified type Expected: 09/26/2024, Expires: 12/26/2024 [facility] Work Phone: Comment on above: Expected: 09/26/2024, Expires: Start: 09-26-2024 End: 12-26-2024 Comprehensive metabolic 2000 panel - Serum or Plasma COMPREHENSIVE METABOLIC PANEL Lab Routine Fatty liver Expected: 09/26/2024, Expires: 12/26/2024 [facility] Comment on above: Expected: 09/26/2024, Expires: Start: 09-26-2024 End: 12-26-2024 Urate [Mass/volume] in Serum or Plasma URIC ACID Lab Routine Acute gout, unspecified cause, unspecified site Expected: 09/26/2024, Expires: 12/26/2024 [facility] Comment on above: Expected: 09/26/2024, Expires: Start: 09-10-2024 Advance Directive Discussion Advance Directive Discussion [facility] Start: 08-27-2024 Glaucoma screening Dilated Retinal Exam [facility] Start: 08-25-2024 End: 11-24-2024 Hemoglobin A1c in Blood HEMOGLOBIN A1C Lab Routine Type 2 diabetes mellitus with stage 3b chronic kidney disease, with long-term current use of insulin (HCC) Expected: 08/25/2024 (Approximate), Expires: 11/24/2024 [facility] Comment on above: Expected: 08/25/2024 (Approximate), Expi res: 11/24/2024 Start: 08-25-2024 End: 11-24-2024 Lipid 1996 panel - Serum or Plasma LIPID PANEL BASIC Lab Routine Type 2 diabetes mellitus with stage 3b chronic kidney disease, with long-term current use of insulin (HCC) Expected: 08/25/2024 (Approximate), Expires: 11/24/2024 [facility] Work Phone: Comment on above: Expected: 08/25/2024 (Approximate), Expi res: 11/24/2024 Start: 08-25-2024 End: 08-25-2024 Follow-up encounter 08/25/2024 1:40 PM [facility] [address] [place] [address] [place] [address] [facility] [address] [place] [address] follow up [facility] Comment on above: follow up Start: 08-23-2024 Annual PCP Team Chronic Disease Visit Annual PCP Team Chronic Disease Visit [facility] Start: 08-23-2024 Complete blood count Hemoglobin/Hematocrit [facility] Start: 08-23-2024 Creatinine measurement Serum Creatinine [facility] Start: 08-14-2024 End: 11-13-2024 Microalbumin/Creatinine [Mass Ratio] in Urine ALBUMIN/CREATININE RATIO, URINE Lab Routine Type 2 diabetes mellitus with diabetic neuropathy, with long-term current use of insulin (HCC) Expected: 08/14/2024, Expires: 11/13/2024 [facility] Work Phone: Comment on above: Expected: 08/14/2024, Expires: Start: 07-25-2024 End: 07-25-2024 Patient encounter procedure Neurology Comment on above: 60 min needed ABDI, dementia 60 min needed ABDI, d ementia- lanette 7.9.24 MQ- continue Namenda 10mg BID, increase activity, brain activity, water intake Start: 07-11-2024 Hemoglobin A1c measurement HbA1C [facility] Start: 06-20-2024 Annual PCP Team Chronic Disease Visit Annual PCP Team Chronic Disease Visit [facility] Start: 05-16-2024 End: 08-15-2024 Hemoglobin A1c in Blood HEMOGLOBIN A1C Lab Routine Type 2 diabetes mellitus with stage 3b chronic kidney disease, with long-term current use of insulin (HCC) Expected: 05/16/2024 (Approximate), Expires: 08/15/2024 [facility] Comment on above: Expected: 05/16/2024 (Approximate), Expi res: 08/15/2024 Start: 05-16-2024 End: 08-15-2024 Thyroglobulin and Thyrogobulin Ab panel - Serum or Plasma THYROGLOBULIN, SERUM WITH REFLEX TO IA OR LC-MS/MS Lab Routine Thyroid cancer (HCC) Expected: 05/16/2024 (Approximate), Expires: 08/15/2024 [facility] Comment on above: Expected: 05/16/2024 (Approximate), Expi res: 08/15/2024 Start: 05-16-2024 End: 08-15-2024 Thyrotropin [Units/volume] in Serum or Plasma THYROID STIMULATING HORMONE Lab Routine Thyroid cancer (HCC) Expected: 05/16/2024 (Approximate), Expires: 08/15/2024 [facility] Comment on above: Expected: 05/16/2024 (Approximate), Expi res: 08/15/2024 Start: 05-16-2024 End: 08-15-2024 Thyroxine (T4) free [Mass/volume] in Serum or Plasma T4 FREE/FREE THYROXINE Lab Routine Thyroid cancer (HCC) Expected: 05/16/2024 (Approximate), Expires: 08/15/2024 [facility] Work Phone: Comment on above: Expected: 05/16/2024 (Approximate), Expi res: 08/15/2024 Start: 05-15-2024 End: 05-15-2024 ambulatory 05/15/2024 1:20 PM EDT [facility] [address] [place] [phone] [place] [address] [facility] [address] [place], [place] [phone] last appt. before group home, last thyroid eval. [facility] Comment on above: last appt. before group home, last thyro id eval. Start: 05-11-2024 Covid-19 Vaccine ( season) Covid-19 Vaccine ( season) [facility] Start: 05-11-2024 Covid-19 Vaccine ( season) Covid-19 Vaccine ( season) [facility] Start: 05-11-2024 Influenza vaccination Influenza Vaccine (#1) [place] [facility] Start: 05-08-2024 ANNUAL PCP TEAM CHRONIC DISEASE VISIT ANNUAL PCP TEAM CHRONIC DISEASE VISIT [facility] Start: 05-06-2024 End: 05-06-2024 Patient encounter procedure 05/06/2024 11:20 AM EDT Office Visit Orthopaedics [address] [place], [place] [phone] Clyde Beltran MD [address] [place] [address] POST OP Orthopaedics Comment on above: POST OP Start: 04-18-2024 Hemoglobin A1c measurement HbA1C [facility] Start: 03-18-2024 End: 03-18-2024 Patient encounter procedure 03/18/2024 2:45 PM EDT Office Visit Neurology [address] [place] [address] Kenzie Fairbanks PA-C [address] [place] [address] follow up after testing Neurology Comment on above: follow up after testing Start: 03-10-2024 COLOGUARD (FIT-DNA) COLOGUARD (FIT-DNA) [facility] Start: 03-10-2024 COLORECTAL CANCER SCREENING COLORECTAL CANCER SCREENING [facility] Start: 03-07-2024 COLOGUARD (FIT-DNA) COLOGUARD (FIT-DNA) [facility] Start: 03-07-2024 COLORECTAL CANCER SCREENING COLORECTAL CANCER SCREENING [facility] Start: 02-23-2024 3 comp foot exam completed DIABETIC FOOT EXAM [facility] Start: 02-23-2024 Diabetic foot examination Diabetic Foot Exam [facility] Start: 02-22-2024 End: 02-22-2024 Patient encounter procedure 02/22/2024 2:20 PM EDT Office Visit Internal Medicine [facility] [address] [place], [place] [id number] Jesus Davila MD [address] [place] [address] Wellness [facility] Comment on above: Wellness Start: 02-22-2024 ANNUAL PCP TEAM CHRONIC DISEASE VISIT ANNUAL PCP TEAM CHRONIC DISEASE VISIT [facility] Start: 02-22-2024 Creatinine measurement Serum Creatinine [facility] Start: 02-22-2024 Hepatitis B screening URINE ALBUMIN:CREATININE RATIO [facility] Start: 02-22-2024 Hepatitis B surface antibody level LDL CHOLESTEROL [facility] Start: 02-22-2024 SERUM CREATININE SERUM CREATININE [facility] Start: 02-15-2024 End: 02-15-2024 Patient encounter procedure Radiology Comment [place] [id number] Start: 02-14-2024 End: 02-14-2024 ambulatory 02/14/2024 1:[address] [facility] Endocrinology [address] [address] [place] [address] [place] [address] [facility] [address] [place] [address] 3 month folow up Endocrinology [facility] Comment on above: 3 month folow up Start: 02-14-2024 End: 02-14-2024 Patient encounter procedure [facility] Comment on above: [id number] Start: 02-14-2024 End: 02-14-2024 Home visit 02/14/2024 4:30 AM EDT Home Care Visit [facility] [address] [place] [address] Korin Singh, OT [address] [place] [phone] [facility] Comment on above: [id number] Start: 02-13-2024 End: 02-13-2024 Home visit 02/13/2024 4:00 AM EDT Home Care Visit [facility] [address] [place] [address] Korin Singh, OT [address] [place] [phone] [facility] Comment on above: [id number] Start: 02-12-2024 End: 02-12-2024 Home visit [facility] Comment on above: [id number] NOM[facility] Start: 02-11-2024 End: 02-11-2024 Home visit [facility] Comment on above: [id number] [facility] [id number] [facility] 2-2:30 Start: 02-08-2024 End: 02-08-2024 Home visit [facility] Comment on above: [id number] 11:08/09 Start: 02-06-2024 End: 02-06-2024 Home visit [facility] Comment on above: [id number] Start: 02-05-2024 End: 02-05-2024 Home visit [facility] Comment on above: [id number] Start: 02-01-2024 End: 02-01-2024 Home visit 02/01/2024 10:00 PM EDT Home Care Visit [facility] [address] [facility] [place] [address] Charlotte Jenkins, PT [address] [facility] [place] [id number] [facility] Comment on above: [id number] Start: 01-31-2024 End: 01-31-2024 Home visit [facility] Comment on above: [id number] Start: 01-30-2024 End: 01-30-2024 Home visit 01/30/2024 6:00 AM EDT Home Care Visit [facility] [address] [facility] [place] [id number] OTE LILIBETH (hip) [facility]26-01/[facility] Comment on above: [id number] OTE LILIBETH (hip) 01/26-01/30 GERSTENSL AGER Start: 01-29-2024 End: 01-29-2024 Home visit 01/29/2024 6:00 AM EDT Home Care Visit [facility] [address] [facility] [place] [id number] OTE LILIBETH (hip) 01/26-01/30 GERSTENSARGER [facility] Comment on above: [id number] OTE LILIBETH (hip) 01/26-01/30 GERSTENSL AGER Start: 01-28-2024 Hemoglobin A1c measurement HbA1C [facility] Start: 01-28-2024 Hemoglobin A1c/Hemoglobin.total in Blood HbA1C [facility] Start: 01-28-2024 End: 01-28-2024 Home visit [facility] Comment on above: [id number] OTE LILIBETH (hip) 01/26-01/30 GERSTENSL AGER [id number] Start: 01-26-2024 End: 01-26-2024 Patient encounter procedure [facility] Comment on above: [id number] YAIMLA Nino Celaya [id number] 01/23 LOR CONFIRMED [id number] Start: 01-21-2024 End: 01-21-2024 Admission to same day surgery center 01/21/2024 1:48 PM EDT - 01/21/2024 4:35 PM EDT Surgery Admitting [address] [place] [address] Clyde Beltran MD [address] [place] [address] ARTHROPLASTY REPLACE JOINT TOTAL HIP Admitting Comment on above: ARTHROPLASTY REPLACE JOINT TOTAL HIP Start: 01-21-2024 End: 01-21-2024 Arthrp acetblr/prox fem prostc agrft/algrft ARTHROPLASTY REPLACE JOINT TOTAL HIP Primary osteoarthritis of left hip 01/21/2024 1:48 PM EDT [facility] Start: 01-21-2024 Subsequent hospital visit by physician 01/21/2024 1:48 PM EDT Hospital Encounter Admitting [address] [place] [address] Clyde Beltran MD [address] [place] [address] Primary osteoarthritis of left hip [M16.12] Admitting Comment on above: Primary osteoarthritis of left hip [M16. 12] Start: 01-21-2024 End: 01-21-2024 Admission to same day surgery center 01/21/2024 7:45 AM EDT - 01/21/2024 10:32 AM EDT Surgery Admitting [address] [place] [address] Clyde Beltran MD [address] [place] [address] ARTHROPLASTY REPLACE JOINT TOTAL HIP Admitting Comment on above: ARTHROPLASTY REPLACE JOINT TOTAL HIP Start: 01-21-2024 End: 01-21-2024 Arthrp acetblr/prox fem prostc agrft/algrft ARTHROPLASTY REPLACE JOINT TOTAL HIP Primary osteoarthritis of left hip 01/21/2024 7:45 AM EDT RA BLACK Start: 01-21-2024 Subsequent hospital visit by physician 01/21/2024 7:45 AM EDT Hospital Encounter Admitting [address] [place] [address] Clyde Beltran MD [address] [place] [address] Primary osteoarthritis of left hip [M16.12] Admitting Comment on above: Primary osteoarthritis of left hip [M16. 12] Start: 01-15-2024 [facility] Start: 01-11-2024 End: 01-11-2024 Patient encounter procedure 01/11/2024 4:30 PM EDT Appointment [facility] Radiology Ultrasound [address] [place] [address] Dyspnea on exertion [R06.09]; Bilateral lower extremity edema [R60.0] [facility] Radiology Ultrasound Comment on above: Dyspnea on exertion [R06.09]; Bilateral lower extremity edema [R60.0] Start: 01-11-2024 End: 01-11-2024 Patient encounter procedure 01/11/2024 11:20 AM EDT Office Visit Cardiology [address] [place] [address] Dyspnea on exertion [R06.09]; Bilateral lower extremity edema [R60.0] Cardiology Comment on above: Dyspnea on exertion [R06.09]; Bilateral lower extremity edema [R60.0] Start: 01-09-2024 End: 04-09-2024 Hemoglobin A1c in Blood [facility] Work Phone: Comment on above: Expected: 01/09/2024, Expires: Start: 01-09-2024 End: 01-09-2024 Anesthesia consultation 01/09/2024 11:20 AM EDT PAT Pre Anesthesia [address] [place] [address] 1, [facility] [address] [place] [address] PRE OP Pre Anesthesia Comment on above: PRE OP Start: 01-09-2024 End: 01-09-2024 Patient encounter procedure 01/09/2024 10:50 AM EDT Appointment Radiology [address] [place] [address] PRE OP Radiology Comment on above: PRE OP Start: 12-13-2023 End: 12-11-2024 Basic metabolic 2000 panel - Serum or Plasma BASIC METABOLIC PNL Lab Routine Primary osteoarthritis of left hip Anemia, unspecified type Expected: 12/13/2023, Expires: 12/11/2024 [facility] Work Phone: Comment on above: Expected: 12/13/2023, Expires: Start: 12-13-2023 End: 12-11-2024 CBC panel - Blood by Automated count CBC Lab Routine Primary osteoarthritis of left hip Anemia, unspecified type Expected: 12/13/2023, Expires: 12/11/2024 [facility] Work Phone: Comment on above: Expected: 12/13/2023, Expires: Start: 12-13-2023 End: 12-10-2024 TYPE AND SCREEN,30 DAY TYPE AND SCREEN,30 DAY Blood Bank Routine Primary osteoarthritis of left hip Expected: 12/13/2023, Expires: 12/10/2024 [facility] Work Phone: Comment on above: Expected: 12/13/2023, Expires: Start: 11-25-2023 Covid-19 Vaccine () Covid-19 Vaccine () [facility] Start: 11-25-2023 Covid-19 Vaccine () Covid-19 Vaccine () [facility] Start: 10-26-2023 End: 01-25-2024 Hemoglobin A1c in Blood HGB A1C Lab Routine Type 2 diabetes mellitus with diabetic neuropathy, with long-term current use of insulin (HCC) Expected: 10/26/2023 (Approximate), Expires: 01/25/2024 [facility] Work Phone: Comment on above: Expected: 10/26/2023 (Approximate), Expi res: 01/25/2024 Start: 10-26-2023 End: 01-25-2024 Thyrotropin [Units/volume] in Serum or Plasma TSH BLD Lab Routine Thyroid cancer (HCC) Expected: 10/26/2023 (Approximate), Expires: 01/25/2024 [facility] Work Phone: Comment on above: Expected: 10/26/2023 (Approximate), Expi res: 01/25/2024 Start: 10-26-2023 End: 01-25-2024 Thyroxine (T4) free [Mass/volume] in Serum or Plasma T4 FREE/FREE THYROX Lab Routine Thyroid cancer (HCC) Expected: 10/26/2023 (Approximate), Expires: 01/25/2024 [facility] Work Phone: Comment on above: Expected: 10/26/2023 (Approximate), Expi res: 01/25/2024 Start: 10-24-2023 ANNUAL PCP TEAM CHRONIC DISEASE VISIT ANNUAL PCP TEAM CHRONIC DISEASE VISIT [facility] Start: 09-10-2023 Advance Directive Discussion Advance Directive Discussion [facility] Start: 09-07-2023 Glaucoma screening Dilated Retinal Exam [facility] Start: 09-07-2023 Hepatitis C antibody, confirmatory test DILATED RETINAL EXAM [facility] Start: 08-29-2023 Complete blood count Hemoglobin/Hematocrit [facility] Start: 08-29-2023 HEMOGLOBIN/HEMATOCRIT HEMOGLOBIN/HEMATOCRIT [facility] Start: 08-29-2023 Hepatitis B surface antibody level LDL CHOLESTEROL [facility] Start: 08-29-2023 SERUM CREATININE SERUM CREATININE [facility] Start: 08-24-2023 ANNUAL PCP TEAM CHRONIC DISEASE VISIT ANNUAL PCP TEAM CHRONIC DISEASE VISIT [facility] Start: 08-03-2023 Hemoglobin A1c/Hemoglobin.total in Blood HBA1C [facility] Start: 07-27-2023 End: 10-26-2023 Hemoglobin A1c in Blood HGB A1C Lab Routine Type 2 diabetes mellitus with diabetic neuropathy, with long-term current use of insulin (HCC) Expected: 07/27/2023 (Approximate), Expires: 10/26/2023 [facility] Work Phone: Comment on above: Expected: 07/27/2023 (Approximate), Expi res: 10/26/2023 Start: 06-15-2023 [facility] Start: 05-11-2023 Covid-19 Vaccine ( season) Covid-19 Vaccine () [facility] Start: 05-11-2023 Influenza vaccination [facility] Start: 04-28-2023 End: 04-26-2024 Basic metabolic 2000 panel - Serum or Plasma BASIC METABOLIC PNL Lab Routine Primary osteoarthritis of left hip Anemia, unspecified type Expected: 04/28/2023, Expires: 04/26/2024 [facility] Work Phone: Comment on above: Expected: 04/28/2023, Expires: 4 Start: 04-28-2023 End: 04-26-2024 CBC panel - Blood by Automated count CBC Lab Routine Primary osteoarthritis of left hip Anemia, unspecified type Expected: 04/28/2023, Expires: 04/26/2024 [facility] Work Phone: Comment on above: Expected: 04/28/2023, Expires: 4 Start: 04-28-2023 End: 04-25-2024 TYPE AND SCREEN,30 DAY TYPE AND SCREEN,30 DAY Blood Bank Routine Primary osteoarthritis of left hip Expected: 04/28/2023, Expires: 04/25/2024 [facility] Work Phone: Comment on above: Expected: 04/28/2023, Expires: 4 Start: 04-27-2023 End: 06-27-2023 STAPH AUREUS PCR [facility] Work Phone: Comment on above: Expected: 04/27/2023, Expires: 3 Start: 03-02-2023 ANNUAL PCP TEAM CHRONIC DISEASE VISIT ANNUAL PCP TEAM CHRONIC DISEASE VISIT [facility] Start: 02-27-2023 Hemoglobin A1c/Hemoglobin.total in Blood HBA1C [facility] Start: 01-08-2023 End: 03-10-2023 Thyroglobulin and Thyrogobulin Ab panel - Serum or Plasma THYROGLOBULIN, SERUM WITH REFLEX TO IA OR LC-MS/MS Lab Routine Thyroid cancer (HCC) Expected: 01/08/2023 (Approximate), Expires: 03/10/2023 [facility] Work Phone: Comment on above: Expected: 01/08/2023 (Approximate), Expi res: 03/10/2023 Start: 01-08-2023 End: 03-10-2023 Thyrotropin [Units/volume] in Serum or Plasma TSH BLD Lab Routine Thyroid cancer (HCC) Expected: 01/08/2023 (Approximate), Expires: 03/10/2023 [facility] Work Phone: Comment on above: Expected: 01/08/2023 (Approximate), Expi res: 03/10/2023 Start: 01-08-2023 End: 03-10-2023 Thyroxine (T4) free [Mass/volume] in Serum or Plasma T4 FREE/FREE THYROX Lab Routine Thyroid cancer (HCC) Expected: 01/08/2023 (Approximate), Expires: 03/10/2023 [facility] Work Phone: Comment on above: Expected: 01/08/2023 (Approximate), Expi res: 03/10/2023 Start: 01-08-2023 End: 03-10-2023 Urate [Mass/volume] in Serum or Plasma URIC ACID BLOOD Lab Routine Acute gout involving toe of right foot, unspecified cause Expected: 01/08/2023, Expires: 03/10/2023 [facility] Work Phone: Comment on above: Expected: 01/08/2023, Expires: 3 Start: 12-29-2022 Mammography MAMMOGRAM [facility] Start: 11-29-2022 3 comp foot exam completed DIABETIC FOOT EXAM [facility] Start: 11-29-2022 ANNUAL PCP TEAM CHRONIC DISEASE VISIT ANNUAL PCP TEAM CHRONIC DISEASE VISIT [facility] Start: 11-28-2022 Hepatitis B screening URINE ALBUMIN:CREATININE RATIO [facility] Start: 11-28-2022 SERUM CREATININE SERUM CREATININE [facility] Start: 10-02-2022 COVID-19 VACCINE (6 - Pfizer series) COVID-19 VACCINE (6 - Pfizer series) [facility] Start: 09-10-2022 ADVANCE DIRECTIVE DISCUSSION ADVANCE DIRECTIVE DISCUSSION [facility] Start: 08-25-2022 End: 10-25-2022 CBC panel - Blood by Automated count CBC Lab Routine Anemia, unspecified type Expected: 08/25/2022, Expires: 10/25/2022 [facility] Work Phone: Comment on above: Expected: 08/25/2022, Expires: 3 Start: 08-25-2022 End: 10-25-2022 Comprehensive metabolic 2000 panel - Serum or Plasma COMP METABOLIC PANEL Lab Routine Hyperlipidemia, unspecified hyperlipidemia type Expected: 08/25/2022, Expires: 10/25/2022 [facility] Work Phone: Comment on above: Expected: 08/25/2022, Expires: 3 Start: 08-25-2022 End: 10-25-2022 Hemoglobin A1c in Blood HGB A1C Lab Routine Type 2 diabetes mellitus with diabetic neuropathy, with long-term current use of insulin (HCC) Expected: 08/25/2022, Expires: 10/25/2022 [facility] Work Phone: Comment on above: Expected: 08/25/2022, Expires: 3 Start: 08-25-2022 End: 10-25-2022 Lipid 1996 panel - Serum or Plasma LIPID PANEL BASIC Lab Routine Hyperlipidemia, unspecified hyperlipidemia type Expected: 08/25/2022, Expires: 10/25/2022 [facility] Work Phone: Comment on above: Expected: 08/25/2022, Expires: 3 Start: 07-27-2022 Patient referral [facility] Work Phone: Start: 07-12-2022 Urine microalbumin profile DTAP,TDAP,TD (1 - Tdap) [facility] Comment on above: Postponed from 07/12/2012 (Postponed To Appropriate Date) Start: 05-31-2022 Hemoglobin A1c/Hemoglobin.total in Blood HBA1C [facility] Start: 05-31-2022 HEMOGLOBIN/HEMATOCRIT HEMOGLOBIN/HEMATOCRIT [facility] Start: 05-11-2022 Influenza vaccination INFLUENZA (#1) [facility] Start: 04-05-2022 COVID-19 VACCINE (5 - Booster for Pfizer series) COVID-19 VACCINE (5 - Booster for Pfizer series) [facility] Start: 03-01-2022 Hepatitis B surface antibody level LDL CHOLESTEROL [facility] Start: 02-15-2022 End: 04-17-2022 T4 FREE/FREE THYROX [facility] Work Phone: Comment on above: Expected: 02/15/2022, Expires: 2 Start: 02-15-2022 End: 04-17-2022 Thyroglobulin and Thyrogobulin Ab panel - Serum or Plasma [facility] Work Phone: Comment on above: Expected: 02/15/2022, Expires: Start: 01-30-2022 End: 04-01-2022 CBC panel - Blood by Automated count CBC Lab Routine Type 2 diabetes mellitus with stage 3b chronic kidney disease, with long-term current use of insulin (HCC) Expected: 01/30/2022 (Approximate), Expires: 04/01/2022 [facility] Work Phone: Comment on above: Expected: 01/30/2022 (Approximate), Expi res: 04/01/2022 Start: 01-30-2022 End: 04-01-2022 Hemoglobin A1c/Hemoglobin.total in Blood HGB A1C Lab Routine Type 2 diabetes mellitus with stage 3b chronic kidney disease, with long-term current use of insulin (HCC) Expected: 01/30/2022 (Approximate), Expires: 04/01/2022 [facility] Work Phone: Comment on above: Expected: 01/30/2022 (Approximate), Expi res: 04/01/2022 Start: 12-13-2021 End: 12-13-2021 Patient encounter procedure Appointment [facility] Work Phone: Start: 11-29-2021 End: 11-29-2021 Patient encounter procedure Appointment [facility] Work Phone: Start: 11-01-2021 End: 11-01-2021 Patient encounter procedure Appointment [facility] Work Phone: Start: 10-04-2021 COVID-19 VACCINE (4 - Booster for Pfizer series) COVID-19 VACCINE (4 - Booster for Pfizer series) [facility] Start: 09-17-2021 Mammography MAMMOGRAM [facility] Start: 09-10-2021 ADVANCE DIRECTIVE DISCUSSION ADVANCE DIRECTIVE DISCUSSION [facility] Start: 09-07-2021 Hepatitis C antibody, confirmatory test DILATED RETINAL EXAM [facility] Start: 07-12-2012 Urine microalbumin profile [facility] Start: 08-23-2011 Colonoscopy COLONOSCOPY [facility] Start: 08-23-2011 COLORECTAL CANCER SCREENING COLORECTAL CANCER SCREENING [facility] Start: 2007 Hepatitis B Vaccine (1 of 3 - Risk 3-dose series) Hepatitis B Vaccine (1 of 3 - Risk 3-dose series) [facility] Start: 2007 RSV Vaccine (1 - 1-dose 60+ series) RSV Vaccine (1 - 1-dose 60+ series) [facility] Start: 1997 SHINGRIX VACCINE (1 of 2) SHINGRIX VACCINE (1 of 2) [facility] Start: 1992 COLOGUARD (FIT-DNA) COLOGUARD (FIT-DNA) [facility] Start: [address] COLONOGRAPHY [facility] Start: 1992 FECAL OCCULT BLOOD FECAL OCCULT BLOOD [facility] Start: 1992 SIGMOIDOSCOPY SIGMOIDOSCOPY [facility] Start: 1966 SHINGRIX VACCINE (1 of 2) SHINGRIX VACCINE (1 of 2) [facility] Start: 1965 Anxiety Screening Anxiety Screening [facility] Arthrp acetblr/prox fem prostc agrft/algrft TOTAL HIP REPLACEMENT Procedures Routine Primary osteoarthritis of left hip Ordered: 04/27/2023 [facility] Work Phone: Comment on above: Ordered: 04/27/2023 Arthrp acetblr/prox fem prostc agrft/algrft TOTAL HIP REPLACEMENT Procedures Routine Primary osteoarthritis of left hip Ordered: 12/12/2023 [facility] Work Phone: Comment on above: Ordered: 12/12/2023 End: 04-27-2024 ECG COMPLETE ECG COMPLETE ECG Routine Primary osteoarthritis of left hip 1 Occurrences starting 04/27/2023 until 04/27/2024 [facility] Work Phone: Comment on above: 1 Occurrences starting 04/27/2023 until 04/27/2024 End: 12-11-2024 ECG COMPLETE ECG COMPLETE ECG Routine Primary osteoarthritis of left hip 1 Occurrences starting 12/12/2023 until 12/11/2024 [facility] Work Phone: Comment on above: 1 Occurrences starting 12/12/2023 until 12/11/2024 End: 01-06-2025 Echocardiography ECHO Cardiology Routine Dyspnea on exertion Bilateral lower extremity edema 1 Occurrences starting 01/07/2024 until 01/06/2025 [facility] Work Phone: Comment on above: 1 Occurrences starting 01/07/2024 until 01/06/2025 End: 12-26-2023 EGD - THERAPEUTIC, EUS, OR TUBE INTERVENTIONS EGD - THERAPEUTIC, EUS, OR TUBE INTERVENTIONS Endoscopy Routine GERD without esophagitis Dysphagia, unspecified type 1 Occurrences starting 12/25/2022 until 12/26/2023 [facility] Work Phone: Comment on above: 1 Occurrences starting 12/25/2022 until 12/26/2023 End: 02-08-2024 MADHU DIAGNOSTIC RIGHT MADHU DIAGNOSTIC RIGHT Radiology Routine Abnormal screening mammogram 1 Occurrences starting 01/09/2023 until 02/08/2024 [facility] Work Phone: Comment on above: 1 Occurrences starting 01/09/2023 until 02/08/2024 End: 02-04-2024 MADHU SCREENING MADHU SCREENING Radiology Routine Screening mammogram for breast cancer 1 Occurrences starting 01/05/2023 until 02/04/2024 [facility] Work Phone: Comment on above: 1 Occurrences starting 01/05/2023 until 02/04/2024 MADHU SCREENING MADHU SCREENING Ra diology Routine Screening mammogram for breast cancer 01/05/2023 1:49 PM EDT [facility] Work Phone: MG Breast Screening MADHU SCREENIN G Radiology Routine Screening mammogram for breast cancer 01/07/2024 1:58 PM EDT [facility] Work Phone: End: 01-14-2026 MG Breast Screening MADHU SCREENING Radiology Routine Screening mammogram for breast cancer 1 Occurrences starting 12/16/2024 until 01/14/2026 [facility] Work Phone: Comment on above: 1 Occurrences starting 12/16/2024 until 01/14/2026 End: 01-12-2025 MG Breast Screening [facility] Work Phone: Comment on above: ONCE for 1 Occurrences starting 01/13/20 until 01/12/2025 NM Heart Views W str ess and W radionuclide IV [facility] Patient Education \cps-sql1\CPS_ PtEducati on\[facility]_FALL_PREVENTION. pdf [facility] Work Phone: Patient Education [facility] Work Phone: Patient referral [facility] Work Phone: REFER FOR ADMIT INTERVIEW REFER FOR ADMIT INTERVIEW Procedures Routine Primary osteoarthritis of left hip Ordered: 04/27/2023 [facility] Work Phone: Comment on above: Ordered: 04/27/2023 REFER FOR ADMIT INTERVIEW REFER FOR ADMIT INTERVIEW Procedures Routine Primary osteoarthritis of left hip Ordered: 12/12/2023 [facility] Work Phone: Comment on above: Ordered: 12/12/2023 Urine culture [facility] End: 02-08-2024 US BREAST LTD RIGHT US BREAST LTD RIGHT Radiology Routine Abnormal screening mammogram 1 Occurrences starting 01/09/2023 until 02/08/2024 [facility] Work Phone: Comment on above: 1 Occurrences starting 01/09/2023 until 02/08/2024 US Heart [facility] End: 02-05-2025 US Lower extremity vein - bilateral US DVT LOWER BILATERAL Radiology Routine Dyspnea on exertion Bilateral lower extremity edema 1 Occurrences starting 01/07/2024 until 02/05/2025 [facility] Comment on above: 1 Occurrences starting 01/07/2024 until 02/05/2025 US Lower extremity v ein - bilateral US DVT LOWER BILATERAL Radiology Routine Dyspnea on exertion Bilateral lower extremity edema 01/11/2024 5:07 PM EDT [facility] Work Phone: End: 07-09-2023 XR DIGIT GENERAL 3V FRONTAL/LAT/OBL RIGHT XR DIGIT GENERAL 3V FRONTAL/LAT/OBL RIGHT Radiology STAT Finger pain, right 1 Occurrences starting 06/09/2022 until 07/09/2023 [facility] Work Phone: Comment on above: 1 Occurrences starting 06/09/2022 until 07/09/2023 End: 01-29-2026 XR HIP BILATERAL 5V PEL/AP/LAT EACH HIP XR HIP BILATERAL 5V PEL/AP/LAT EACH HIP Radiology Routine Multiple joint pain 1 Occurrences starting 12/30/2024 until 01/29/2026 [facility] Comment on above: 1 Occurrences starting 12/30/2024 until 01/29/2026 XR HIP BILATERAL 5V PEL/AP/LAT EACH HIP XR HIP BILATERAL 5V PEL/AP/LAT EACH HIP Radiology Routine Multiple joint pain 12/30/2024 11:06 AM EDT [facility] End: 05-26-2024 XR HIP GENERAL 3V PELV/AP/LAT LEFT XR HIP GENERAL 3V PELV/AP/LAT LEFT Radiology Routine Primary osteoarthritis of left hip 1 Occurrences starting 04/27/2023 until 05/26/2024 [facility] Work Phone: Comment on above: 1 Occurrences starting 04/27/2023 until 05/26/2024 End: 01-29-2026 XR Knee - bilateral 4 Views XR KNEE GENERAL 4V AP BOTH/PA BOTH/LAT/MERC BILATERAL Radiology Routine Multiple joint pain 1 Occurrences starting 12/30/2024 until 01/29/2026 [facility] Comment on above: 1 Occurrences starting 12/30/2024 until 01/29/2026 XR Knee - bilateral 4 Views XR KNEE GENERAL 4V AP BOTH/PA BOTH/LAT/MERC BILATERAL Radiology Routine Multiple joint pain 12/30/2024 11:07 AM EDT [facility] End: 01-10-2025 XR Pelvis and Hip - left AP and Lateral frog XR HIP GENERAL 3V PELV/AP/LAT LEFT Radiology Routine Primary osteoarthritis of left hip 1 Occurrences starting 12/12/2023 until 01/10/2025 [facility] Work Phone: Comment on above: 1 Occurrences starting 12/12/2023 until 01/10/2025 XR Pelvis and Hip - left AP and Lateral frog XR HIP GENERAL 3V PELV/AP/LAT LEFT Radiology Routine Status post left hip replacement 04/08/2024 11:43 AM EDT [facility] Work Phone: End: 01-29-2026 XR Shoulder - left 3 Views XR SHOULDER GENERAL 3V OR MORE AP/TRUE AP/OTHER LEFT Radiology Routine Multiple joint pain 1 Occurrences starting 12/30/2024 until 01/29/2026 [facility] Work Phone: Comment on above: 1 Occurrences starting 12/30/2024 until 01/29/2026 XR Shoulder - left 3 Views XR SHOULDER GENERAL 3V OR MORE AP/TRUE AP/OTHER LEFT Radiology Routine Multiple joint pain 12/30/2024 11:07 AM EDT [facility] End: 01-29-2026 XR Shoulder - right 3 Views XR SHOULDER GENERAL 3V OR MORE AP/TRUE AP/OTHER RIGHT Radiology Routine Multiple joint pain 1 Occurrences starting 12/30/2024 until 01/29/2026 [facility] Comment on above: 1 Occurrences starting 12/30/2024 until 01/29/2026 XR Shoulder - right 3 Views XR SHOULDER GENERAL 3V OR MORE AP/TRUE AP/OTHER RIGHT Radiology Routine Multiple joint pain 12/30/2024 11:07 AM EDT [facility] Immunizations Immunization Date Immunization Notes Care Provider Chandler simeon 06-02-2024 influenza, high dose seasonal, preservative-free Jesus Davila MD Work Phone: [facility] 06-02-2024 influenza virus vacc ine, unspecified formulation Jennifersissy Gregory [employer] Work Phone: [facility] 09-14-2023 respiratory syncytia l virus (RSV) vaccine, adjuvanted (AREXVY) Jesus Davila MD Work Phone: [facility] 06-20-2023 influenza (HD-IIV4) vaccine, age 65+ yr, high dose, quadrivalent, PF (FLUZONE HIGH-DOSE) Jesus Davila MD Work Phone: [facility] Work Phone: 06-20-2023 influenza virus vacc ine, unspecified formulation Kenzie Fairbanks PA-C Work Phone: [facility] 06-02-2022 COVID-19 booster vaccine, age 12+ yr, bivalent (PFIZER-BIONTECH) Jesus Davila MD Work Phone: [facility] 06-02-2022 influenza (HD-IIV4) vaccine, age 65+ yr, high dose, quadrivalent, PF (FLUZONE HIGH-DOSE) Jesus Davila MD Work Phone: [facility] 06-02-2022 influenza, high dose seasonal, preservative-free Jesus Davila MD Work Phone: [facility] 06-02-2022 influenza virus vacc ine, unspecified formulation Catherine Pompa RN Work Phone: [facility] 05-11-2022 influenza virus vacc ine, unspecified formulation Jesus Davila MD Work Phone: [facility] 02-08-2022 COVID-19 original vaccine, age 12+ yr, monovalent (PFIZER-BIONTECH - MOHR TOP) Jesus Davila MD Work Phone: [facility] 02-08-2022 COVID-19 vaccine, ag e 12+ yr (PFIZER-BIONTECH - PURPLE TOP) Jesus Davila MD Work Phone: [facility] Work Phone: 06-10-2021 influenza, injectabl e, quadrivalent, contains preservative Jesus Davila MD Work Phone: [facility] 06-04-2021 COVID-19 vaccine, ag e 12+ yr (PFIZER-BIONTECH - PURPLE TOP) Pérez Loya RN [facility] Work Phone: 06-02-2021 influenza, high-dose , quadrivalent vaccine (FLUZONE HIGH DOSE QUADRIVALENT) Pérez Loya RN [facility] Work Phone: 12-01-2020 COVID-19 vaccine, ag e 12+ yr (PFIZER-BIONTECH - PURPLE TOP) Pérez Loya RN [facility] 11-10-2020 COVID-19 vaccine, ag e 12+ yr (PFIZER-BIONTECH - PURPLE TOP) Pérez Loya RN [facility] 11-03-2020 COVID-19 vaccine, unspecified formulation Jesus Davila MD Work Phone: [facility] 06-16-2020 influenza, injectabl e, quadrivalent, preservative free Dr. Jesus Davila Work Phone: [facility] 06-16-2020 influenza, seasonal, injectable Dr. Jesus Davila Work Phone: [facility] 06-24-[address] Jesus Davila Work Phone: [facility] 06-24-2019 influenza, seasonal, injectable, preservative free Jesus Davila MD Work Phone: [facility] 06-23-2019 influenza, high dose seasonal, preservative-free Pérez Loya RN [facility] Work Phone: 07-23-2018 influenza nasal, unspecified formulation Pérez Loya RN [facility] Work Phone: 07-23-2018 influenza virus vacc ine, unspecified formulation Jesus Davila MD Work Phone: [facility] 07-22-[address] Jesus Davila Work Phone: [facility] 07-22-2018 influenza, seasonal, injectable, preservative free Pérez Loya RN [facility] Work Phone: 07-15-2018 influenza, high dose seasonal, preservative-free Pérez Loya RN [facility] Work Phone: 06-06-2017 influenza, high dose seasonal, preservative-free Pérez Loya RN [facility] 05-11-2017 influenza, injectabl e, quadrivalent, contains preservative Pérez Loya RN [facility] Work Phone: 06-15-2016 influenza, high dose seasonal, preservative-free Pérez Loya RN [facility] 06-10-2016 influenza nasal, unspecified formulation Pérez Loya RN [facility] Work Phone: 06-10-2016 influenza virus vacc ine, unspecified formulation Jesus Davila MD Work Phone: [facility] 06-10-2015 influenza, high dose seasonal, preservative-free Pérez Loya RN [facility] 04-07-2015 pneumococcal conjuga te vaccine, 13 valent Pérez Loya RN [facility] 07-15-2014 influenza, seasonal, injectable Pérez Loya RN [facility] 07-02-[address] Jesus Davila Work Phone: [facility] 07-02-2014 influenza, seasonal, injectable, preservative free Pérez Loya RN [facility] Work Phone: 07-11-2012 TD(adult) unspecifie d formulation Pérez Loya RN [facility] Work Phone: 07-11-2012 tetanus and diphther ia toxoids, adsorbed, preservative free, for adult use (2 Lf of tetanus toxoid and 2 Lf of diphtheria toxoid) Pérez Loya RN [facility] Work Phone: 06-15-2012 influenza virus vacc ine, unspecified formulation Pérez Loya RN [facility] 06-15-2012 pneumococcal polysaccharide vaccine, 23 valent Pérez Loya RN [facility] 06-15-2012 tuberculin skin test ; purified protein derivative solution, intradermal Catherine Pompa RN Work Phone: [facility] 06-15-2010 influenza virus vacc ine, unspecified formulation Pérez Loya RN [facility] Work Phone: 07-16-2007 influenza virus vacc ine, unspecified formulation Pérez Loya RN [facility] 06-16-2003 pneumococcal polysaccharide vaccine, 23 valent Pérez Loya RN [facility] Work Phone: 06-16-[address] Flash Davila Work Phone: [facility] Work Phone: 06-16-2003 pneumococcal vaccine , unspecified formulation Dr. Jesus Davila Work Phone: [facility] 09-10-2002 tetanus and diphther ia toxoids, adsorbed, preservative free, for adult use (2 Lf of tetanus toxoid and 2 Lf of diphtheria toxoid) Pérez Loya RN [facility] Work Phone: 09-10-1994 pneumococcal polysaccharide vaccine, 23 valent Pérez Loya RN [facility] Work Phone: Payers Date Payer Category Payer Self-pay [id number] 2017 Medicare HUMANA MEDICARE HUMANA MEDICARE PPO [id number] 2017-Present [phone] [place] [address] PPO [id number] 2017 Medicare HUMANA MEDICARE HUMANA MEDICARE PPO [id number] 2017-Present [phone] [place] [address] PPO [id number] 2017 Medicare (Managed Care) KAMILAH CAGE [id number] 2014 Private Health Insurance [id number] Unknown [id number] Unknown [id number] Unknown [id number] Unknown [id number] Unknown [id number] Unknown [id number] Social History Date Type Detail Facility Start: 12-27-2021 End: 01-15-2024 Assertion Unknown if ever smoked [facility] Work Phone: Start: 06-09-2022 End: 03-16-2025 Tobacco smoking status NHIS Ex-smoker [facility] Start: 09-10-1976 End: 09-10-1991 History of tobacco use Current smoker [facility] Start: 09-27-2021 End: 04-09-2025 Alcohol intake Current non-drinker of alcohol (finding) [facility] Start: 11-20-2020 End: 02-20-2023 History SDOH Alcohol Frequency 1 [facility] Start: 11-20-2020 End: 02-20-2023 History SDOH Social Connections Phone 2 [facility] Start: 11-20-2020 End: 02-20-2023 History SDOH Social Connections Living 3 [facility] Start: 11-20-2020 End: 02-20-2023 History SDOH Physical Activity DPW 0 [facility] Start: 11-20-2020 End: 02-20-2023 History SDOH Financial 5 [facility] Start: 08-28-2019 Education 16 [facility] Start: 1945 Sex Assigned At Female C [facility] Start: 11-19-2021 End: 07-12-2022 Exposure to SARS-CoV-2 (event) Not sure [facility] Work Phone: Start: 01-06-2021 None [facility] Start: 01-06-2021 Homeless [facility] Start: 01-06-2021 Non-smoker [facility] Start: 09-10-1976 End: 09-10-1991 History of tobacco use Cigarette Smoker [facility] Start: 06-09-2022 End: 01-31-2023 Cigarettes smoked current (pack per day) - Reported 2 [facility] Start: 06-09-2022 End: 07-25-2024 Tobacco use and exposure Smokeless tobacco non-user [facility] Start: 01-31-2023 End: 02-20-2023 Social connection and isolation panel [facility] Do you belong to any clubs or organizations such as yazidi groups, unions, fraternal or athletic groups, or school groups? Yes [facility] Are you now , , , , never or living with a partner? [facility] How often to you hav e a drink containing alcohol? Monthly or less [facility] How many standard drinks containing alcohol do you have on a typical day? 1 or 2 [facility] How often do you hav e 6 or more drinks on 1 occasion? Never [facility] Start: 08-11-2012 How hard is it for y ou to pay for the very basics like food, housing, medical care, and heating Not hard at all [facility] Do you feel stress - tense, restless, nervous, or anxious, or unable to sleep at night because your mind is troubled all the time - these days [OSQ] Not at all [facility] (I/We) worried rivera er (my/our) food would run out before (I/we) got money to buy more. Never true [facility] In the past 12 month s, was there a time when you were not able to pay the mortgage or rent on time? No [facility] Start: 12-02-2018 Gender identity Identifies as female gender (finding) [facility] Start: 12-02-2018 Sexual orientation Heterosexua l (finding) [facility] Do you feel stress - tense, restless, nervous, or anxious, or unable to sleep at night because your mind is troubled all the time - these days [OSQ] To some extent [facility] NEGATED: Highlighted row Not [facility] Medical Equipment Procedure Code Equipment Code Equipment Origin al Text Equipment Identifier Dates 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 by anterior approach 127 NECK ANGLE HIP STEM FDA Start: 10-20-2020 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 by anterior approach CERAMIC V40 FEMORAL HEAD FDA Start: 10-20-2020 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 by anterior approach CLUSTERHOLE ACETABULAR SHELL FDA Start: 10-20-2020 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 by anterior approach POLYETHYLENE INSERT FDA Start: 10-20-2020 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 by anterior approach 127 NECK ANGLE HIP STEM FDA Start: 10-20-2020 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 by anterior approach CERAMIC V40 FEMORAL HEAD FDA Start: 10-20-2020 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 by anterior approach CLUSTERHOLE ACETABULAR SHELL FDA Start: 10-20-2020 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 by anterior approach POLYETHYLENE INSERT FDA Start: 10-20-2020 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 by anterior approach 127 NECK ANGLE HIP STEM FDA Start: 10-20-2020 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 by anterior approach CERAMIC V40 FEMORAL HEAD FDA Start: 10-20-2020 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 by anterior approach CLUSTERHOLE ACETABULAR SHELL FDA Start: 10-20-2020 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 by anterior approach POLYETHYLENE INSERT FDA Start: 10-20-2020 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 by anterior approach 127 NECK ANGLE HIP STEM FDA Start: 10-20-2020 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 by anterior approach CERAMIC V40 FEMORAL HEAD FDA Start: 10-20-2020 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 by anterior approach CLUSTERHOLE ACETABULAR SHELL FDA Start: 10-20-2020 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 by anterior approach POLYETHYLENE INSERT FDA Start: 10-20-2020 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 by anterior approach 127 NECK ANGLE HIP STEM FDA Start: 10-20-2020 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 by anterior approach CERAMIC V40 FEMORAL HEAD FDA Start: 10-20-2020 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 by anterior approach CLUSTERHOLE ACETABULAR SHELL FDA Start: 10-20-2020 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 by anterior approach POLYETHYLENE INSERT FDA Start: 10-20-2020 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 by anterior approach 127 NECK ANGLE HIP STEM FDA Start: 10-20-2020 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 by anterior approach CERAMIC V40 FEMORAL HEAD FDA Start: 10-20-2020 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 by anterior approach CLUSTERHOLE ACETABULAR SHELL FDA Start: 10-20-2020 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 by anterior approach POLYETHYLENE INSERT FDA Start: 10-20-2020 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 by anterior approach 127 NECK ANGLE HIP STEM FDA Start: 10-20-2020 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 by anterior approach CERAMIC V40 FEMORAL HEAD FDA Start: 10-20-2020 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 by anterior approach CLUSTERHOLE ACETABULAR SHELL FDA Start: 10-20-2020 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 by anterior approach POLYETHYLENE INSERT FDA Start: 10-20-2020 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 by anterior approach 127 NECK ANGLE HIP STEM FDA Start: 10-20-2020 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 by anterior approach CERAMIC V40 FEMORAL HEAD FDA Start: 10-20-2020 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 by anterior approach CLUSTERHOLE ACETABULAR SHELL FDA Start: 10-20-2020 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 by anterior approach POLYETHYLENE INSERT FDA Start: 10-20-2020 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 by anterior approach 127 NECK ANGLE HIP STEM FDA Start: 10-20-2020 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 by anterior approach CERAMIC V40 FEMORAL HEAD FDA Start: 10-20-2020 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 by anterior approach CLUSTERHOLE ACETABULAR SHELL FDA Start: 10-20-2020 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 by anterior approach POLYETHYLENE INSERT FDA Start: 10-20-2020 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 by anterior approach 127 NECK ANGLE HIP STEM FDA Start: 10-20-2020 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 by anterior approach CERAMIC V40 FEMORAL HEAD FDA Start: 10-20-2020 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 by anterior approach CLUSTERHOLE ACETABULAR SHELL FDA Start: 10-20-2020 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 by anterior approach POLYETHYLENE INSERT FDA Start: 10-20-2020 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 by anterior approach 127 NECK ANGLE HIP STEM FDA Start: 10-20-2020 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 by anterior approach CERAMIC V40 FEMORAL HEAD FDA Start: 10-20-2020 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 by anterior approach CLUSTERHOLE ACETABULAR SHELL FDA Start: 10-20-2020 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 by anterior approach POLYETHYLENE INSERT FDA Start: 10-20-2020 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 by anterior approach 127 NECK ANGLE HIP STEM FDA Start: 10-20-2020 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 by anterior approach CERAMIC V40 FEMORAL HEAD FDA Start: 10-20-2020 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 by anterior approach CLUSTERHOLE ACETABULAR SHELL FDA Start: 10-20-2020 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 by anterior approach POLYETHYLENE INSERT FDA Start: 10-20-2020 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 by anterior approach 127 NECK ANGLE HIP STEM FDA Start: 10-20-2020 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 by anterior approach CERAMIC V40 FEMORAL HEAD FDA Start: 10-20-2020 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 by anterior approach CLUSTERHOLE ACETABULAR SHELL FDA Start: 10-20-2020 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 by anterior approach POLYETHYLENE INSERT FDA Start: 10-20-2020 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 by anterior approach 127 NECK ANGLE HIP STEM FDA Start: 10-20-2020 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 by anterior approach CERAMIC V40 FEMORAL HEAD FDA Start: 10-20-2020 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 by anterior approach CLUSTERHOLE ACETABULAR SHELL FDA Start: 10-20-2020 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 by anterior approach POLYETHYLENE INSERT FDA Start: 10-20-2020 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 by anterior approach 127 NECK ANGLE HIP STEM FDA Start: 10-20-2020 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 by anterior approach CERAMIC V40 FEMORAL HEAD FDA Start: 10-20-2020 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 by anterior approach CLUSTERHOLE ACETABULAR SHELL FDA Start: 10-20-2020 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 by anterior approach POLYETHYLENE INSERT FDA Start: 10-20-2020 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 by anterior approach 127 NECK ANGLE HIP STEM FDA Start: 10-20-2020 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 by anterior approach CERAMIC V40 FEMORAL HEAD FDA Start: 10-20-2020 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 by anterior approach CLUSTERHOLE ACETABULAR SHELL FDA Start: 10-20-2020 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 by anterior approach POLYETHYLENE INSERT FDA Start: 10-20-2020 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 by anterior approach 127 NECK ANGLE HIP STEM FDA Start: 10-20-2020 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 by anterior approach CERAMIC V40 FEMORAL HEAD FDA Start: 10-20-2020 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 by anterior approach CLUSTERHOLE ACETABULAR SHELL FDA Start: 10-20-2020 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 by anterior approach POLYETHYLENE INSERT FDA Start: 10-20-2020 Luis Alfredo Bn Smpx P Ra dpq Fd Strl - [id number] Start: 06-12-2012 Comment on above: Description: simplex bone cement Luis Alfredo Bn Smplx Hv Fd - [id number] Start: 08-18-2014 Mtv-Ib-Q-Kind Implant - [id number] Start: 06-12-2012 Comment on above: Description: P/S fem oral oxinium knee component Fzm-Ii-F-Kind Implant - [id number] Start: 06-12-2012 Comment on above: Description: articul ar insert high flexion Baseplt Tib Gen 2 5 Rt Kn Luis Alfredo - [id number] Start: 06-12-2012 Comp Fem 5 Lt Ps Gen 2 Oxnm - [id number] Start: 08-18-2014 Baseplt Tib Gen 2 4 Lt Kn Luis Alfredo - [id number] Start: 08-18-2014 Comp Pat 35mm 9m m Resurf Gen 2 - [id number] Start: 08-18-2014 Ins Tib 3-4 9mm Xlpe Ps Hi Flx - [id number] Start: 08-18-2014 [id number], [id number], [id number], [id number], [id number], [id number] Start: 09-05-2021 End: 04-29-2025 Comment on above: Use to check blood s ugar 4 times daily 1 Each as directed. 6 times daily. Dx:E11.40. On multiple insulin doses. Checking blood sugar s 4 times daily. Dx: E11.42 Insert Acetabula r 36mm 0d D Hip X3 Trident Sterile Latex Free - [id number] Start: 01-21-2024 Stem Femoral 103 mm Size 4 High Offset Insignia Collared - [id number] Start: 01-21-2024 Shell Trident Ii 50mm D Tritanium Acetabular 3 Screw Hole Cluster Sterile - [id number] Start: 01-21-2024 Head V40 36mm 0m m Offset Taper Biolox Delta Femoral Hip - [id number] Start: 01-21-2024 Screw Trident Ii 6.5mm 25mm Bone Low Profile Hexagonal Sterile - [id number] Start: 01-21-2024 Goals Date Patient Goal Desired Activity /State Personal health goal Personal health goal Comment on above: Formatting of this n ote might be different from the original. Improved Ambulation Personal health goal Comment on above: Formatting of this n ote might be different from the original. Good Health, and to be stronger Personal health goal Comment on above: Formatting of this n ote might be different from the original. Improved function and stay safe Personal health goal Comment on above: Formatting of this n ote might be different from the original. 08/16/22- Osteoarthritis throughout body. Hope to get a remedy to improve pain. Personal health goal Comment on above: Formatting of this n ote might be different from the original. Patient has the following Congestive Heart Failure Goals: Two PCP Visits annually and Medication review by PCP or Pharmacy once a year CHF Education given and reviewed with patient --sent on 02/02/23 CHF IVAN education provided - Heart Failure [facility] Patient will meet these goals by 02/03/24 (describe interventions done by PCC) Formatting of this n ote might be different from the original. Patient has the following Chronic Kidney Disease goals: Two PCP visits annually and Renal panel twice annually Education provided and reviewed with patient - sent on 02/02/23 CKD IVAN Education - CKD (ALL) Patient will meet these goals by: 02/03/24 (describe interventions done by PCC) Formatting of this n ote might be different from the original. Patient has the following Congestive Heart Failure Goals: Two PCP Visits annually and Medication review by PCP or Pharmacy once a year CHF Education given and reviewed with patient --sent on 02/02/23 CHF IVAN education provided - Heart Failure [facility] Patient will meet these goals by 02/03/24 (describe interventions done by PCC) 08/22/23- reviewed goals with pt Formatting of this n ote might be different from the original. Patient has the following Chronic Kidney Disease goals: Two PCP visits annually and Renal panel twice annually Education provided and reviewed with patient - sent on 02/02/23 CKD IVAN Education - CKD (ALL) Patient will meet these goals by: 02/03/24 (describe interventions done by PCC) - reviewed goals with pt. Personal health goal Comment on above: Formatting of this n ote might be different from the original. Patient has the following general goals: Two PCP visits annually Patient Stated goal: Osteoarthritis throughout body. Hope to get a remedy to improve pain. Patient will meet these goals by 07/25/24 (describe interventions done by PCC) Personal health goal Comment on above: Formatting of this n ote might be different from the original. Patient has the following general goals: Two PCP visits annually Patient Stated goal: Want to get better. Still needs left hip surgery Patient will meet these goals by 08/22/24 (describe interventions done by PSYCHIATRIC) Comment on above: Formatting of this n ote might be different from the original. Improved Ambulation Comment on above: Formatting of this n ote might be different from the original. Good Health, and to be stronger Comment on above: Formatting of this n ote might be different from the original. Improved function and stay safe Comment on above: Formatting of this n ote might be different from the original. 08/16/22- Osteoarthritis throughout body. Hope to get a remedy to improve pain. Comment on above: Formatting of this n ote might be different from the original. Patient has the following Congestive Heart Failure Goals: Two PCP Visits annually and Medication review by PCP or Pharmacy once a year CHF Education given and reviewed with patient --sent on 02/02/23 CHF IVAN education provided - Heart Failure [facility] Patient will meet these goals by 02/03/24 (describe interventions done by PCC) Comment on above: Formatting of this n ote might be different from the original. Patient has the following Chronic Kidney Disease goals: Two PCP visits annually and Renal panel twice annually Education provided and reviewed with patient - sent on 02/02/23 CKD IVAN Education - CKD (ALL) Patient will meet these goals by: 02/03/24 (describe interventions done by PCC) Functional Status Date Assessment Result Facility 01-24-2024 Are you deaf, or do you have serious difficulty hearing No 01/24/2024 2:00 PM Bebo Andersen RN No [facility] 01-24-2024 Are you blind, or do you have serious difficulty seeing, even when wearing glasses No 01/24/2024 2:00 PM Bebo Andersen RN No [facility] 01-24-2024 Do you have serious difficulty walking or climbing stairs No 01/24/2024 2:00 PM Bebo Andersen, CHRISTOPHER [facility] 01-24-2024 Do you have difficul ty dressing or bathing No 01/24/2024 2:00 PM Bebo Andersen, CHRISTOPHER No [facility] 01-24-2024 Because of a physica l, mental, or emotional condition, do you have difficulty doing errands alone such as visiting a physician's office or shopping No 01/24/2024 2:00 PM Bebo Andersen RN No [facility] Mental Status Date Assessment Result Facility 01-24-2024 Because of a physica l, mental, or emotional condition, do you have serious difficulty concentrating, remembering, or making decisions No 01/24/2024 2:00 PM Bebo Andersen RN No [facility] 01-15-2024 Cognitive function Awake;Alert;A ppropriate; Follows Commands [facility] Work Phone: Clinical Notes 07-12-2020 to 04-29-2025 Telephone Encounter - Christin Thao LPN - 04/29/2025 4:41 PM EDTTelephone Encounter - Christin Thao LPN - 04/29/2025 4:41 PM EDTJesus Davila MD - 04/08/2025 2:56 PM EDT Note Date & Type Note Facility 04-29-2025 Telephone encounter Note Patient has been identified by name and date of : Yes Patient phones for refill(s): Requested Prescriptions Pending Prescriptions Disp Refills Insulin Wales, Disposable, (BD ULTRAFINE III MINI PEN) 31 gauge x 3/16 200 each 11 Si each as directed. 6 times daily. Dx:E11.40. On multiple insulin doses. Date of last office visit in primary care: 04/08/2025 Date of next office visit in primary care: 10/09/2025 Please advise. Thank you. Christin Thao LPN. [facility] 04-29-2025 Miscellaneous Notes Patient has been identified by name and date of : Yes Patient phones for refill(s): Requested Prescriptions Pending Prescriptions Disp Refills Insulin Wales, Disposable, (BD ULTRAFINE III MINI PEN) 31 gauge x 3/16 200 each 11 Si each as directed. 6 times daily. Dx:E11.40. On multiple insulin doses. Date of last office visit in primary care: 04/08/2025 Date of next office visit in primary care: 10/09/2025 Please advise. Thank you. Christin Thao LPN. documented in this encounter [facility] 04-28-2025 Telephone encounter Note Roberto, Please call this patient to reschedule in [facility] that sees surgeries performed in [place]. Patient must be rescheduled. Scheduled for 2:00PM today in [place]. ADDENDUM: April 28, 2025 1:32 PM Appears patient was scheduled twice, can see appointment scheduled for 05/08 for Pre-Surgical Testing at [facility]. Nicole Valles APRN.CNP [facility] Work Phone: 04-28-2025 Miscellaneous Notes Roberto, Please call this patient to reschedule in [facility] that sees surgeries performed in [place]. Patient must be rescheduled. Scheduled for 2:00PM today in [place]. ADDENDUM: April 28, 2025 1:32 PM Appears patient was scheduled twice, can see appointment scheduled for 05/08 for Pre-Surgical Testing at [facility]. Nicole Valles APRN.CNP [facility] documented in this encounter [facility] 04-22-2025 Telephone encounter Note Patient is scheduled. Anette Shah [facility] 04-22-2025 Miscellaneous Notes Patient is scheduled. Anette Shah Patient is having surgery on 05-15-[address] Mccall. She needs to be start Physical therapy 1-2 weeks post-op. Please reach out to patient and assist with scheduling physical therapy. Thank you. Anette Shah documented in this encounter [facility] 04-15-2025 Telephone encounter Note Patient is having surgery on 05-15-[address] Mccall. She needs to be start Physical therapy 1-2 weeks post-op. Please reach out to patient and assist with scheduling physical therapy. Thank you. Anette Shah [facility] 04-08-2025 History of Present illness Narrative Subjective Bhakti Kirkpatrick is a 79 year old female here with Edward. HPI We restarted duloxetine and her chronic pains and mood were improved. She felt she had a little more mobility. She was referred to Dr. Paolo Mccall and shoulder replacement of the right is planned. Heart failure was controlled. Diabetes was controlled. She sees Dr. Perez for podiatry every 8 weeks, last foot exam one week ago. Review of Systems Constitutional: Negative for fatigue. Respiratory: Negative for shortness of breath. Cardiovascular: Negative for chest pain. Musculoskeletal: Positive for arthralgias. Psychiatric/Behavioral: Negative for dysphoric mood. 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 Diastolic Congestive Heart Failure and Stage 3a Chronic Kidney Disease (Hcc) Myalgia Hyperlipidemia (Hfpef) Heart Failure With Preserved Ejection Fraction (Hcc) Fatty Liver History of Thyroid Cancer Type 2 Diabetes Mellitus With Stage 3a Chronic Kidney Disease, With Long-Term Current Use of Insulin (Hcc) Depression, Recurrent S/P Laparoscopic Sleeve Gastrectomy Gerd Without Esophagitis Sensory Hearing Loss, Bilateral Type 2 Diabetes Mellitus With Diabetic Neuropathy, With Long-Term Current Use of Insulin (Hcc) Gout Obesity, Class II, Bmi 35-39.9 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 glucagon 3 mg/actuation nasal spray (BAQSIMI) Use 1 [place] in the nose as needed for low blood sugar. May repeat after 15 minutes using a new device if there is no response. cycloSPORINE (RESTASIS) 0.05 % ophthalmic emulsion Use 1 Drop in both eyes two times a day. insulin glargine U-300 conc (TOUJEO SOLOSTAR U-300 INSULIN) 300 unit/mL (1.5 mL) take 24 units twice a day, max daily dose 60 units levothyroxine (SYNTHROID) 175 mcg tablet Take 1 tablet by mouth once daily. colchicine 0.6 mg tablet Take 2 tabs by mouth, followed by 1 tab one hour later for gout flare. May repeat in 1 week. nitroglycerin sublingual (NITROQUICK) 0.4 mg SL tablet Dissolve 1 tablet under the tongue as needed. FOR CHEST PAIN. IF NO RELIEF CALL 911 Insulin Wales, Disposable, (BD ULTRAFINE III MINI PEN) 31 gauge x 3/16 1 Each as directed. 6 times daily. Dx:E11.40. On multiple insulin doses. evolocumab (REPATHA SURECLICK) 140 mg/mL pen injector Inject 140 mg subcutaneously every 2 weeks. [facility]. Lancets (ACCU-CHEK SOFTCLIX LANCETS) lancets Checking blood sugars 4 times daily. Dx: E11.42 BIPAP fluticasone (FLONASE) 50 mcg/actuation nasal spray Use 2 Sprays in each nostril once daily. COMPOUNDED PRESCRIPTION Initiate BiPAP @ 15/9 cm of water with humidification. Mask (per patient preference) optional chin strap (if indicated) , filters, tubing, humidifier and lifetime supplies. Dx. ABDI 327.23 polyethylene glycol 3350(MIRALAX 100 % ORAL POWDER) 17 grams/8 0z water daily allopurinol (ZYLOPRIM) 300 mg tablet Take 1 tablet by mouth once daily. For gout. DULoxetine DR (CYMBALTA) 60 mg capsule Take 1 capsule by mouth once daily. insulin aspart U-100 (NOVOLOG FLEXPEN U-100 INSULIN) 100 unit/mL (3 mL) pen Inject 14 Units subcutaneously three times a day before meals. 14 in AM, 14 at lunch, 14 at supper, 10 at bed, plus extra based on sugars, max daily dose 100 units plus sliding scale furosemide (LASIX) 40 mg tablet Take 1 tablet by mouth once daily. Per Dr. Lilian Vance, nephrology. No current facility-administered medications for this visit. Objective BP 120/64 (BP Site: Right Arm, BP Position: Sitting, BP Cuff Size: Large Adult) Pulse 88 Resp 20 Wt 84.1 kg (185 lb 6.5 oz) LMP 06/27/2011 BMI 35.60 kg/m Physical Exam Constitutional: General: She is not in acute distress. Appearance: She is not ill-appearing. HENT: Head: Normocephalic. Cardiovascular: Rate and Rhythm: Normal rate and regular rhythm. Heart sounds: No murmur heard. No gallop. Pulmonary: Effort: No respiratory distress. Breath sounds: No wheezing or rales. Musculoskeletal: Right lower leg: No edema. Left lower leg: No edema. Neurological: General: No focal deficit present. Mental Status: She is alert. Mental status is at baseline. Gait: Gait abnormal. documented in this encounter [facility] 03-20-2025 History of Present illness Narrative Images from the original note were not included. ORTHOPAEDIC SHOULDER & ELBOW SERVICE HISTORY & PHYSICAL EXAM REFERRING PROVIDER: No referring provider defined for this encounter. CHIEF COMPLAINT: Bhakti Kirkpatrick is a 79-year-old female with a history of bilateral shoulder osteoarthritis, presenting for evaluation of chronic shoulder pain and limited range of motion. PAIN EVALUATION 03/20/2025 1525 Pain Location: -- bilateral shoulder, right worse than left Description: Sharp weakness, radiates down into hand, across back Frequency: Continuous Intervention/Comfort measure: Medication;Imagery tylenol Bilateral Shoulder Osteoarthritis: - Chronic shoulder pain and limited ROM x2 years. - Right shoulder is more symptomatic; Bhakti is right-handed. - Taking two arthritis strength Tylenol in the morning and two in the evening with reported pain relief. - Denies previous cortisone injections. - Significant limitation in shoulder function, unable to lift arms overhead or behind back without pain. - Pain and limited ROM are significantly impacting daily activities. - Has undergone multiple joint replacements, including hips and knees. - Reports numbness and tingling in the hands, improving with movement. - History of prolonged recovery from anesthesia, with delayed return to baseline mental status postoperatively. PAST MEDICAL HISTORY: PAST MEDICAL HISTORY Diagnosis Date (HFpEF) heart failure with preserved ejection fraction (HCC) 06/23/2015 Dr. 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) 02/06/2015 Coronary artery calcification seen on CAT scan 01/21/2013 Depressive disorder 03/31/2016 Diverticulosis 08/23/2010 Diverticulosis of colon (without mention of hemorrhage) Edema GERD without esophagitis 09/02/2019 Hearing loss HTN (hypertension) 08/12/2014 Hypertensive kidney disease with stage 3a chronic kidney disease (HCC) 08/12/2014 Infected prosthetic mesh of abdominal wall 06/30/2020 Ingrown toenail Morbid obesity (HCC) Obstructive sleep apnea CPAP Other and unspecified hyperlipidemia Other dyspnea and respiratory abnormality Palpitations Primary osteoarthritis of both hips 08/18/2020 Rosacea Symptomatic menopausal or female climacteric states 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 Type II or unspecified type diabetes mellitus without mention of complication, not stated as uncontrolled 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 07/10/2018 Unspecified intestinal obstruction 10/2018 PAST SURGICAL HISTORY: PAST SURGICAL HISTORY Procedure Laterality Date APPENDECTOMY 05/20/2001 open ARTHRP KNE CONDYLE&PLATU MEDIAL&LAT COMPARTMENTS Left 08/18/2014 Knee replacement, total left ARTHRP KNE CONDYLE&PLATU MEDIAL&LAT COMPARTMENTS Right 06/12/2012 total right knee arthroplasty ; THYROIDECTOMY TOTAL OR COMPLETE Bilateral 12/15/2009 Papillary Ca CHOLECYSTECTOMY 05/20/2001 Cholecystectomy-lap COLONOSCOPY FLX DX W/COLLJ SPEC WHEN PFRMD 06/06/2004 COLONOSCOPY FLX DX W/COLLJ SPEC WHEN PFRMD 08/23/2010 EXCISION EXCESSIVE SKIN & SUBQ TISSUE OTHER AREA 01/17/2002 Abdominoplasty EXPLORATORY LAPAROTOMY, CELIOTOMY-SP 06/24/2020 Takedown of enteroprosthetic fistula.Small bowel resection anastosmosis. Removal infected mesh. Recurrent vental hernia repair. HIP ARTHROSCOPY W/SYNOVECTOMY Right 09/19/2021 exc.seroma; gluteus repair; rotium augmentation; trochanteric bursectomy, iliotibial band resection LAPAROCOPIC SLEEVE GASTRECTOMY 03/10/2019 Extensive laparoscopic lysis of adhesions. EGD. Lap. TAP block. LEFT HEART CATH,PERCUTANEOUS 09/13/2017 no significant CAD NEPHRECTOMY PARTIAL Right 03/1991 Right side for benign tumor, small lesion removed REPAIR FIRST ABDOMINAL WALL HERNIA 09/25/2005 7 times total RPR 1ST INCAL/VNT HERNIA INCARCERATED 06/11/2007 with mesh TOTAL ABDOMINAL HYSTERECT W/WO RMVL TUBE OVARY 05/20/2001 PER, for fibroids and BSO TOTAL HIP REPLACEMENT Right 10/20/2020 anterior minimally invasive right total hip SOCIAL HISTORY: Social History Tobacco Use Smoking status: Former Current packs/day: 0.00 Average packs/day: 2.0 packs/day for 15.0 years (30.0 ttl pk-yrs) Types: Cigarettes Start date: 09/10/1976 Quit date: 09/10/1991 Years since quittin.5 Smokeless tobacco: Never Vaping Use Vaping status: Never Used Substance Use Topics Alcohol use: No Drug use: No ALLERGIES: ALLERGIES Allergen Reactions Adhesive Tape (Jamila* Other: See Comments Contact celluitis Crestor [Rosuvastat* Intolerance Lantus [Insulin Gla* Intolerance burning at local injection site Nickel Rash in jewelry; also Palladium which cross reacts with nickel in some cases. Palladium Rash Pravastatin Intolerance Muscle cramps Toradol [Ketorolac] Hives MEDICATIONS: Current Outpatient Medications on File Prior to Visit Medication Sig nitrofurantoin monohydrate and macrocrystal (MACROBID) 100 mg capsule two times a day. blood sugar diagnostic (ACCU-CHEK ANNALISE PLUS TEST STRP) test strip Use to check blood sugar 4 times daily memantine (NAMENDA) 10 mg tablet Take 1 tablet by mouth two times a day. DULoxetine (CYMBALTA) 60 mg capsule Take 1 capsule by mouth once daily. glucagon 3 mg/actuation nasal spray (BAQSIMI) Use 1 [place] in the nose as needed for low blood sugar. May repeat after 15 minutes using a new device if there is no response. allopurinol (ZYLOPRIM) 300 mg tablet Take 1 tablet by mouth once daily. For gout. cycloSPORINE (RESTASIS) 0.05 % ophthalmic emulsion Use 1 Drop in both eyes two times a day. insulin glargine U-300 conc (TOUJEO SOLOSTAR U-300 INSULIN) 300 unit/mL (1.5 mL) take 24 units twice a day, max daily dose 60 units levothyroxine (SYNTHROID) 175 mcg tablet Take 1 tablet by mouth once daily. colchicine 0.6 mg tablet Take 2 tabs by mouth, followed by 1 tab one hour later for gout flare. May repeat in 1 week. insulin aspart U-100 (NOVOLOG FLEXPEN U-100 INSULIN) 100 unit/mL (3 mL) Inject 14 Units subcutaneously three times a day before meals. 14 in AM, 14 at lunch, 14 at supper, 10 at bed, plus extra based on sugars, max daily dose 100 units plus sliding scale nitroglycerin sublingual (NITROQUICK) 0.4 mg SL tablet Dissolve 1 tablet under the tongue as needed. FOR CHEST PAIN. IF NO RELIEF CALL 911 furosemide (LASIX) 40 mg tablet Take 20 mg by mouth once daily. Per Dr. Lilian Vance, nephrology. Insulin Wales, Disposable, (BD ULTRAFINE III MINI PEN) 31 gauge x 3/16 1 Each as directed. 6 times daily. Dx:E11.40. On multiple insulin doses. evolocumab (REPATHA SURECLICK) 140 mg/mL pen injector Inject 140 mg subcutaneously every 2 weeks. [facility]. Lancets (ACCU-CHEK SOFTCLIX LANCETS) lancets Checking blood sugars 4 times daily. Dx: E11.42 BIPAP [DISCONTINUED] calcium citrate (CITRACAL ORAL) Take 2 tablets by mouth two times a day. NOT TAKING Patient should start on January 26, 2024. fluticasone (FLONASE) 50 mcg/actuation nasal spray Use 2 Sprays in each nostril once daily. COMPOUNDED PRESCRIPTION Initiate BiPAP @ 15/9 cm of water with humidification. Mask (per patient preference) optional chin strap (if indicated) , filters, tubing, humidifier and lifetime supplies. Dx. ABDI 327.23 polyethylene glycol 3350(MIRALAX 100 % ORAL POWDER) 17 grams/8 0z water daily No current facility-administered medications on file prior to visit. PHYSICAL EXAMINATION: [facility] 06/27/2011 EXAM: Shoulder Musculoskeletal Exam Inspection Right Right shoulder inspection is normal. Left Left shoulder inspection is normal. Palpation Right Crepitus: mild Tenderness: none Left Crepitus: mild Tenderness: none Range of Motion Right Active ROM: abnormal and pain. Active forward elevation: 60. Passive forward elevation: 100. Shoulder active abduction: 60. Passive abduction: 60. Active external rotation at side: 30. Passive external rotation at side: 30. Internal rotation: side. Left Active ROM: abnormal and pain. Active forward elevation: 60. Passive forward elevation: 100. Shoulder active abduction: 60. Passive abduction: 60. Active external rotation at side: 30. Passive external rotation at side: 30. Internal rotation: side. Strength Right External rotation: 4+/5. Internal rotation: 4+/5. Abduction: 4+/5. Left External rotation: 4+/5. Internal rotation: 4+/5. Abduction: 4+/5. Neurovascular Right Right shoulder nerve sensation is normal. Left Left shoulder nerve sensation is normal. Scapula Right Right shoulder scapula is normal. Left Left shoulder scapula is normal. Special Tests Right Rotator Cuff Signs Neer's test: positive Graned test: positive Supraspinatus: positive Painful arc test: positive Drop arm test: negative Biceps/milad Signs Colebrook's test: positive Speed's test: negative AC Joint Signs Active horizontal adduction pain: positive Instability Signs Joint laxity: negative Left Rotator Cuff Signs Neer's test: positive Grande test: positive Supraspinatus: positive Painful arc test: positive Drop arm test: negative Biceps/milad Signs Colebrook's test: positive Speed's test: negative AC Joint Signs Active horizontal adduction pain: positive Instability Signs Joint laxity: negative General Constitutional: appears stated age Psychiatric: normal mood and affect and no acute distress Neurological: alert and oriented x3 IMAGING: Radiographs of the right shoulder personally reviewed today. Date of exam 12/30/24. This is a 3-view shoulder exam, including AP, outlet, and axillary views. Glenohumeral joint: severe glenohumeral joint osteoarthritis with loss of joint space, sclerosis, osteophyte formation Bone: normal Soft tissues: normal Fracture: none My interpretation of the examination: severe right shoulder glenohumeral joint osteoarthritis ASSESSMENT AND PLAN: Encounter Diagnosis ICD-10-CM 1. Osteoarthritis of left glenohumeral joint M19.012 2. Osteoarthritis of right glenohumeral joint M19.011 1. Osteoarthritis of left glenohumeral joint (M19.012) 2. Osteoarthritis of right glenohumeral joint (M19.011) - Severe bilateral glenohumeral joint osteoarthritis with [id number] changes on imaging. - Right shoulder is more symptomatic with significant limitation in range of motion; forward elevation to 70 degrees, external rotation to 30 degrees, and difficulty with internal rotation. - Discussed treatment options including continuation of acetaminophen, corticosteroid injections, and surgical intervention. - Educated on reverse total shoulder arthroplasty as definitive treatment. - Informed about the surgical process: outpatient procedure with nerve block and general anesthesia, incision care, and post-operative pain management. - Due to history of prolonged recovery from anesthesia, plan to keep patient overnight post-surgery for observation. - Patient agrees to proceed with surgery on the right shoulder SURGICAL DISCUSSION: Bhakti Kirkpatrick presents today with severe pain and limited function of the right shoulder as a result of advanced glenohumeral joint osteoarthritis. The current condition represents a significant risk of loss of function of the extremity due to the expectation of worsening pain and diminished use of the arm based on my own assessment and medical judgment. Based on my evaluation today, I do not feel that nonsurgical interventions including physical therapy, activity modification, and medical management are likely to provide this patient with an acceptable level of improvement in functional use of the arm, nor significant pain relief. After thorough review of history, examination findings, and imaging, we discussed surgical intervention today which would be reverse total shoulder arthroplasty. I described the procedure in detail as well as the expected healing time and physical therapy regimen following surgery. Informed consent was discussed in detail and signed in the office today. Surgery was scheduled following today's visit. We have discussed that we will be undertaking an elective major orthopaedic surgery that carries significant medical and surgical risk. Significant risks of surgery include: -Risk of general anesthesia, including possible adverse reaction causing permanent disability or . -Surgical risks including pain, infection, nerve injury, and bleeding. -collection agent risks including procedure failure and possible need for repeat procedure in the future. Modifiable/non-modifiable surgical risks include: Type 2 Diabetes Heart Disease Congestive heart failure Chronic Kidney Disease Obesity, Class II ATTESTATION AND MEDICAL DECISION-MAKING: Today we have made the decision to proceed with scheduling surgery. This represents the highest form of medical decision-making, as I have assessed the patient, reviewed medical records to better understand the current condition as well as underlying risk factors, reviewed medical imaging, assessed appropriateness of available nonsurgical and surgical treatments, and offered a major orthopaedic surgical procedure in order to restore function to this patient's extremity. Risk from testing and treatment is high, for the reasons outlined above. As a result of our thorough review and decision-making process, the surgical procedure will be undertaken with the expectation of improvement in the patient's overall condition. No guarantees as to the outcome of surgery were given or implied. Medical Decision Making: Problems: High: Illness/injury w/ threat to life/body function Data: Unique test result(s) reviewed: 2 Unique test(s) ordered: 2 Independent interpretation of test from other physician/QHCP Risk: High: High risk from testing/treatment and Decision on elective major surgery w/ risk factors Medical Decision Making Level: 5 - High MEDICAL DECISION-MAKING: I have assessed the patient, reviewed medical records to better understand the current condition as well as underlying risk factors, reviewed medical imaging, assessed appropriateness of available nonsurgical and surgical treatments. Will continue to monitor patient for Osteoarthritis of left glenohumeral joint (primary encounter diagnosis) Osteoarthritis of right glenohumeral joint, patient to schedule visit as per follow up discussed. Ayush Mccall MD Shoulder & Elbow Surgeon Department of Orthopaedic Surgery [facility] documented in this encounter [facility] 03-17-2025 Radiology Diagnostic study note [facility] Imaging Services [facility] [address] [place], [place] [address] Abdomen/Pelvis W IV Cont ONLY MR#: [id number] Acct: [id number] Name: BHAKTI KIRKPATRICK Rep #: [id number] : 1945 F 79 From: Kian Henderson MD PCP: Dr. Jesus Davila MD Status: R EG ER Study:Abdomen/Pelvis W IV Cont ONLY Date of E xam: 03/16/25 Exam# [id number] Ordering Dr: Barbara Lim DO PROCEDURE: ABDOMEN/PELVIS W IV CONT ONLY 03/16/2025 REASON FOR EXAM: POSTMENOPAUSAL VAGINAL BLEEDING TECHNIQUE: ABDOMEN/PELVIS W IV CONT ONLY Coronal and Sagittal reconstruction series were provided. CONTRAST: Isovue-370 VOLUME: 96 mL One or more dose reduction techniques were used (e.g., Automated exposure control, adjustment of the mA and/or kV according to patient size, use of iterative reconstruction technique. RADIATION DOSE SUMMARY: CTDlvol: 25.90 mGy DLP: 1186.01 mGycm COMPARISON: 06/28/2024 FINDINGS: CT SCAN OF THE ABDOMEN AND PELVIS WITH IV CONTRAST CLINICAL HISTORY: . TECHNIQUE: Axial and reformatted sagittal images of the abdomen pelvis obtained after IV contrast administration. FINDINGS: The visualized lung bases are unremarkable. Normal liver. The gallbladder is absent. The extrahepatic common bile duct measures approximately 1.6 cm, an expected finding post cholecystectomy. Normal spleen. Normal pancreas. Normal bilateral adrenal glands. Normal size of the right kidney. 1.2 cm angiomyolipoma is seen in the lower pole of the right kidney. Multiple subcentimeter cysts are seen in the upper pole. There are no right renal calculi. There is no right hydronephrosis. Normal visualized right ureter. Normal size of the left kidney. There is no left renal mass. Tiny cyst is seenin the lower pole of the left kidney. There are no left renal calculi. There is no left hydronephrosis. Normal visualized leftureter. Postsurgical changes are seen in the stomach, probably bariatric. Normal small intestine. Normal colon. The appendix is visualized and appears normal. There is no demonstrated peritoneal fluid. Normal abdominal aorta. Scattered atherosclerotic calcifications are seen in the aortic wall. Normal inferior vena cava. Normal retroperitoneum. Suboptimal visualization of the urinary bladder and pelvis due to streak artifacts arising from bilateral total hip joint replacement. The uterus is not visualized and is probably surgically absent. There is no pelvic mass lesion or lymphadenopathy. There is no pelvic fluid. Normal abdominal wall. Streaky artifacts are seen arising from bilateral hip joint prosthesis. CT/Abdomen/Pelvis W IV Cont ONLY IMPRESSION: Postsurgical changes in the stomach, probably bariatric. Status post cholecystectomy with dilatation of the common bile duct, an expectedfinding post cholecystectomy. Small right renal angiomyolipoma. Subcentimeter bilateral renal cysts. Status post bilateral total hip joint replacement with streaky artifacts limiting the pelvic interpretation. No acute process. Nonvisualization of the uterus which could be surgically absent. Reading [facility] CC: Dr. Jesus Davila MD; Scooter Lim DO ~ [employer] Folder: Signed [facility] 03-16-2025 Instructions Carlos Tai APRN.LIZ - 03/16/2025 4:27 PM EDT 1. Vaginal bleeding (N93.9) 2. Postmenopausal bleeding (N95.0) - Acute onset of bright red vaginal bleeding with clots, occurring twice this afternoon; no associated pain, but reports a sensation of fullness. - No history of gynecological procedures; retains uterus and ovaries. - Differential diagnoses include ruptured vein, growth, or tumor. - Advised immediate evaluation in the emergency room for further investigation and potential intervention. - Go to the emergency department today for urgent evaluation of your vaginal bleeding. - At the hospital you may have imaging (such as an ultrasound) to locate the source of bleeding and, if needed, a procedure to stop it. documented in this encounter [facility] 03-16-2025 History of Present illness Narrative [facility] Subjective Bhakti Kirkpatrick is a 79 year old female. Patient presents with: Vaginal Problem: Vaginal bleeding, moderate blood with clots started today Vaginal Problem Associated symptoms include abdominal pain (fullness). Pertinent negatives include no chills, fatigue, fever, nausea or vomiting. Postmenopausal Vaginal Bleeding: - Acute onset of bright red vaginal bleeding with clots this afternoon. - Describes bleeding as moderate, with clots and dripping on the floor. - No associated pain, but reports abdomen feeling full. - Denies recent OBGYN visits; last seen 30 years ago. - No history of hysterectomy; retains uterus and ovaries. - Wears incontinence panties and added an extra pad for the visit; has changed pads due to bleeding. - Expresses concern about the cause of bleeding, mentioning cancer as a worry. Review of Systems Constitutional: Negative for chills, fatigue and fever. Cardiovascular: Negative. Gastrointestinal: Positive for abdominal pain (fullness). Negative for abdominal distention, anal bleeding, blood in stool, nausea and vomiting. Genitourinary: Positive for vaginal bleeding. Negative for pelvic pain. Musculoskeletal: Negative for back pain. Skin: Negative for color change. Objective BP 118/76 Pulse 110 Temp 37.1 C (98.8 F) Resp 20 Wt 85.4 kg (188 lb 4.4 oz) LMP 06/27/2011 SpO2 97% BMI 36.15 kg/m PAST MEDICAL HISTORY Diagnosis Date (HFpEF) heart failure with preserved ejection fraction (HCC) 06/23/2015 Dr. 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) 02/06/2015 Coronary artery calcification seen on CAT scan 01/21/2013 Depressive disorder 03/31/2016 Diverticulosis 08/23/2010 Diverticulosis of colon (without mention of hemorrhage) Edema GERD without esophagitis 09/02/2019 Hearing loss HTN (hypertension) 08/12/2014 Hypertensive kidney disease with stage 3a chronic kidney disease (HCC) 08/12/2014 Infected prosthetic mesh of abdominal wall 06/30/2020 Ingrown toenail Morbid obesity (HCC) Obstructive sleep apnea CPAP Other and unspecified hyperlipidemia Other dyspnea and respiratory abnormality Palpitations Primary osteoarthritis of both hips 08/18/2020 Rosacea Symptomatic menopausal or female climacteric states 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 Type II or unspecified type diabetes mellitus without mention of complication, not stated as uncontrolled 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 07/10/2018 Unspecified intestinal obstruction 10/2018 PAST SURGICAL HISTORY Procedure Laterality Date APPENDECTOMY 05/20/2001 open ARTHRP KNE CONDYLE&PLATU MEDIAL&LAT COMPARTMENTS Left 08/18/2014 Knee replacement, total left ARTHRP KNE CONDYLE&PLATU MEDIAL&LAT COMPARTMENTS Right 06/12/2012 total right knee arthroplasty ; THYROIDECTOMY TOTAL OR COMPLETE Bilateral 12/15/2009 Papillary Ca CHOLECYSTECTOMY 05/20/2001 Cholecystectomy-lap COLONOSCOPY FLX DX W/COLLJ SPEC WHEN PFRMD 06/06/2004 COLONOSCOPY FLX DX W/COLLJ SPEC WHEN PFRMD 08/23/2010 EXCISION EXCESSIVE SKIN & SUBQ TISSUE OTHER AREA 01/17/2002 Abdominoplasty EXPLORATORY LAPAROTOMY, CELIOTOMY-SP 06/24/2020 Takedown of enteroprosthetic fistula.Small bowel resection anastosmosis. Removal infected mesh. Recurrent vental hernia repair. HIP ARTHROSCOPY W/SYNOVECTOMY Right 09/19/2021 exc.seroma; gluteus repair; rotium augmentation; trochanteric bursectomy, iliotibial band resection LAPAROCOPIC SLEEVE GASTRECTOMY 03/10/2019 Extensive laparoscopic lysis of adhesions. EGD. Lap. TAP block. LEFT HEART CATH,PERCUTANEOUS 09/13/2017 no significant CAD NEPHRECTOMY PARTIAL Right 03/1991 Right side for benign tumor, small lesion removed REPAIR FIRST ABDOMINAL WALL HERNIA 09/25/2005 7 times total RPR 1ST INCAL/VNT HERNIA INCARCERATED 06/11/2007 with mesh TOTAL ABDOMINAL HYSTERECT W/WO RMVL TUBE OVARY 05/20/2001 PER, for fibroids and BSO TOTAL HIP REPLACEMENT Right 10/20/2020 anterior minimally invasive right total hip ALLERGIES Adhesive Tape (Rosins), Crestor [Rosuvastatin Calcium], Lantus [Insulin Glargine], Nickel, Palladium, Pravastatin, and Toradol [Ketorolac] MEDICATIONS blood sugar diagnostic (ACCU-CHEK ANNALISE PLUS TEST STRP) test strip Use to check blood sugar 4 times daily memantine (NAMENDA) 10 mg tablet Take 1 tablet by mouth two times a day. DULoxetine (CYMBALTA) 60 mg capsule Take 1 capsule by mouth once daily. glucagon 3 mg/actuation nasal spray (BAQSIMI) Use 1 [place] in the nose as needed for low blood sugar. May repeat after 15 minutes using a new device if there is no response. allopurinol (ZYLOPRIM) 300 mg tablet Take 1 tablet by mouth once daily. For gout. cycloSPORINE (RESTASIS) 0.05 % ophthalmic emulsion Use 1 Drop in both eyes two times a day. insulin glargine U-300 conc (TOUJEO SOLOSTAR U-300 INSULIN) 300 unit/mL (1.5 mL) take 24 units twice a day, max daily dose 60 units levothyroxine (SYNTHROID) 175 mcg tablet Take 1 tablet by mouth once daily. colchicine 0.6 mg tablet Take 2 tabs by mouth, followed by 1 tab one hour later for gout flare. May repeat in 1 week. nitroglycerin sublingual (NITROQUICK) 0.4 mg SL tablet Dissolve 1 tablet under the tongue as needed. FOR CHEST PAIN. IF NO RELIEF CALL 911 furosemide (LASIX) 40 mg tablet Take 20 mg by mouth once daily. Per Dr. Lilian Vance, nephrology. Insulin Wales, Disposable, (BD ULTRAFINE III MINI PEN) 31 gauge x 3/16 1 Each as directed. 6 times daily. Dx:E11.40. On multiple insulin doses. evolocumab (REPATHA SURECLICK) 140 mg/mL pen injector Inject 140 mg subcutaneously every 2 weeks. Per [facility]. Lancets (ACCU-CHEK SOFTCLIX LANCETS) lancets Checking blood sugars 4 times daily. Dx: E11.42 BIPAP fluticasone (FLONASE) 50 mcg/actuation nasal spray Use 2 Sprays in each nostril once daily. COMPOUNDED PRESCRIPTION Initiate BiPAP @ 15/9 cm of water with humidification. Mask (per patient preference) optional chin strap (if indicated) , filters, tubing, humidifier and lifetime supplies. Dx. ABDI 327.23 polyethylene glycol 3350(MIRALAX 100 % ORAL POWDER) 17 grams/8 0z water daily insulin aspart U-100 (NOVOLOG FLEXPEN U-100 INSULIN) 100 unit/mL (3 mL) Inject 14 Units subcutaneously three times a day before meals. 14 in AM, 14 at lunch, 14 at supper, 10 at bed, plus extra based on sugars, max daily dose 100 units plus sliding scale [DISCONTINUED] calcium citrate (CITRACAL ORAL) Take 2 tablets by mouth two times a day. NOT TAKING Patient should start on January 26, 2024. FAMILY HISTORY Problem Relation Age of Onset COPD Mother at 64 yoa Ischemic Heart Disease Father Mi at 61 yoa Hypertension Sister 2 years younger Coronary Artery Disease Sister Stroke Sister Diabetes Sister GI Brother cirrhosis other (AAA rupture) Brother Lung cancer, 49 yoa other (parkinson) Son 41 Diabetes Maternal Aunt Cancer Paternal Aunt Cervical cancer Diabetes Paternal Aunt Heart Paternal Uncle Diabetes Paternal Grandfather Anesthesia Problems No Family History Social History Tobacco Use Smoking status: Former Current packs/day: 0.00 Average packs/day: 2.0 packs/day for 15.0 years (30.0 ttl pk-yrs) Types: Cigarettes Start date: 09/10/1976 Quit date: 09/10/1991 Years since quittin.5 Smokeless tobacco: Never Vaping Use Vaping status: Never Used Substance Use Topics Alcohol use: No Drug use: No Physical Exam Vitals and nursing note reviewed. Constitutional: Appearance: Normal appearance. Cardiovascular: Rate and Rhythm: Normal rate. Pulmonary: Effort: Pulmonary effort is normal. Skin: General: Skin is warm and dry. Coloration: Skin is not pale. Findings: No erythema or rash. Neurological: Mental Status: She is alert. {1. Vaginal bleeding (N93.9) 2. Postmenopausal bleeding (N95.0) - Acute onset of bright red vaginal bleeding with clots, occurring twice this afternoon; no associated pain, but reports a sensation of fullness. - No history of gynecological procedures; retains uterus and ovaries. - Differential diagnoses include ruptured vein, growth, or tumor. - Advised immediate evaluation in the emergency room for further investigation and potential intervention. - Follow-up with your PCP in 3-5 days if symptoms have not improved or sooner if symptoms worsen - Discussed red flags and need for immediate medical evaluation if any occur. - Discussed supportive care treatment with fluids, rest and analgesia. - Discussed expected course of illness Carlos Tai APRN.[employer] and Recording using [employer] software for draft documentation of the visit was discussed with the patient/authorized patient portal representative; all questions welcomed and answered. Patient/authorized patient portal representative agreed to proceed MDM Procedures documented in this encounter [facility] 03-10-2025 Telephone encounter Note Requester: Patient Patients last Endocrinology visit occurred 11/20/24. Follow-up evaluation has been established Upcoming Endocrinology Appointments - Next 365 Days Visit Type Date Time Department VIDEO SPEC EST 06/24/2025 2:00 PM ENDO [facility] . Requested Prescriptions Pending Prescriptions Disp Refills blood sugar diagnostic (ACCU-CHEK ANNALISE PLUS TEST STRP) test strip 400 strip 3 Sig: Use to check blood sugar 4 times daily If patient is due for an appointment please route to provider for refill consideration and also to the endo scheduling pool. PSS NOTE: Patient needs scheduled appointment No 06/24/25 next visit Edyta Frost MA March 10, 2025 3:37 PM [facility] 03-10-2025 Miscellaneous Notes Requester: Patient Patients last Endocrinology visit occurred 11/20/24. Follow-up evaluation has been established Upcoming Endocrinology Appointments - Next 365 Days Visit Type Date Time Department VIDEO SPEC EST 06/24/2025 2:00 PM ENDO [facility] . Requested Prescriptions Pending Prescriptions Disp Refills blood sugar diagnostic (ACCU-CHEK ANNALISE PLUS TEST STRP) test strip 400 strip 3 Sig: Use to check blood sugar 4 times daily If patient is due for an appointment please route to provider for refill consideration and also to the endo scheduling pool. PSS NOTE: Patient needs scheduled appointment No 06/24/25 next visit Edyta Frost MA March 10, 2025 3:37 PM documented in this encounter [facility] 02-23-2025 History of Present illness Narrative ESTABLISHED PATIENT VISIT CHIEF COMPLAINT: Follow Up HISTORY OF PRESENT ILLNESS: Bhakti Kirkpatrick is a 79 year old female, BMI 35.75 kg/m2 with a PMH significant for and per last visit note of 07/25/24: 1. Dementia without behavioral disturbance, psychotic disturbance, mood disturbance, or anxiety, unspecified dementia severity, unspecified dementia type (HCC) - ICD9: 294.20, ICD10: F03.90 (primary diagnosis) Overall no change in cognitive status per family. Pt with poor understanding of condition and poor historian. She declines MOCA testing -- tearful during MOCA las visit. Prior SEs on Aricept. Will continue Namenda 10mg BID. Encouraged brain exercises. D/w family (sig other) whether need for more help at home but declines at this time. Advised to contact us immediately if noted decline in condition including hallucinations or behavioral changes. Explained may need to use meds like Seroquel if such symptoms present. Encouraged pt to keep regular sleep-wake cycle (circadian). Brain exercises if possible. 2. ABDI on CPAP - ICD9: 327.23, ICD10: G47.33 Pt not using PAP again. Discussed with patient: the physiology of OSAS, medical conditions associated with OSAS (DM, HTN, CAD, Depression, Stroke, Headache...). They will try to use again. Patient reports doing quite well. Reviewed recent labs and confirmed follow ups ordered by those who ordered labs. Having shoulder issues. Was referred to ortho but did not see a shoulder specialist. Now appt with arm specialist in [place]. Feels that memory is not well per pt. States most bothersome regarding memory: If I talk to people I know I answer them, but I dont do that often. Forgets words or paraphrases. feels slow progression. Using PAP nightly. Unfortunately I do not have PAP data download. Feels refreshed when wake up. Going to bed at various times due to napping in the early evening while watching tv. She is playing computer games, word searches and puzzles to exercise the brain. Denies tearfulness or abrupt changes in personality or outbursts. Dependent on for many ADLs. Try to get out of the house at least twice per week with - goes out to dinner. Tired the day after going out. PAP data download shows 30/30 days use through 02/22/25 - 6 hours and 40 minutes per night. Auto bilevel set at IPAP max 24, EPAP min 8 and PS of 6 cmH2O. 95% leak is 110 LPM. AHI is 2.7. REVIEW OF SYSTEMS GENERAL:No weight loss, malaise or fevers. HEENT:Negative for frequent or significant headaches, No changes in hearing or vision, no nose bleeds or other nasal problems NECK:Negative for lumps, goiter, pain and significant neck swelling RESPIRATORY: Negative for cough, wheezing or shortness of breath. CARDIOVASCULAR: Negative for chest pain, leg swelling or palpitations. GASTROINTESTINAL: Negative for abdominal discomfort, blood in stools or black stools or change in bowel habits GENITOURINARY: No history of dysuria, frequency or incontinence MUSCULOSKELETAL: Negative for joint pain or swelling, back pain or muscle pain. NEUROLOGIC:Negative for focal numbness or weakness, headaches and dizziness or syncope, vision changes, speech/languag changes - EXCEPT that as per HPI above. SKIN:Negative for lesions, rash, and itching. PSYCHIATRIC: Negative for sleep disturbance, mood disorder and recent psychosocial stressors. HEMATOLOGIC/LYMPHATIC/IMMUNOLOGIC :Negative for prolonged bleeding, bruising easily or swollen nodes. ENDOCRINE: Negative for cold or heat intolerance, polyuria, polydipsia and goiter. The remainder of the ROS was reviewed and is negative. LAB/IMAGING: Those performed since patient's last visit have been reviewed. WBC (k/uL) Date Value 12/30/2024 9.16 RBC (m/uL) Date Value 12/30/2024 3.88 (L) Hemoglobin (g/dL) Date Value 12/30/2024 11.6 Hematocrit (%) Date Value 12/30/2024 36.1 MCV (fL) Date Value 12/30/2024 93.0 MCH (pg) Date Value 12/30/2024 29.9 MCHC (g/dL) Date Value 12/30/2024 32.1 RDW-CV (%) Date Value 12/30/2024 13.8 Platelet Count (k/uL) Date Value 12/30/2024 188 MPV (fL) Date Value 12/30/2024 10.6 Glucose (mg/dL) Date Value 12/30/2024 132 (H) BUN (mg/dL) Date Value 12/30/2024 25 (H) Creatinine (mg/dL) Date Value 12/30/2024 1.07 (H) Sodium (mmol/L) Date Value 12/30/2024 144 Potassium (mmol/L) Date Value 12/30/2024 4.2 Chloride (mmol/L) Date Value 12/30/2024 106 CO2 (mmol/L) Date Value 12/30/2024 27 Protein, Total (g/dL) Date Value 12/30/2024 6.9 Albumin (g/dL) Date Value 12/30/2024 4.1 Calcium, Total (mg/dL) Date Value 12/30/2024 10.2 Alkaline Phosphatase (U/L) Date Value 12/30/2024 113 Bilirubin, Total (mg/dL) Date Value 12/30/2024 0.3 AST (U/L) Date Value 12/30/2024 28 ALT (U/L) Date Value 12/30/2024 25 MEKA (no units) Date Value 03/10/2016 Negative Rheumatoid Factor (IU/mL) Date Value 03/10/2016 <10 Hep C Antibody IA (no units) Date Value 12/10/2015 Negative MEDICATIONS: DULoxetine (CYMBALTA) 60 mg capsule Take 1 capsule by mouth once daily. glucagon 3 mg/actuation nasal spray (BAQSIMI) Use 1 [place] in the nose as needed for low blood sugar. May repeat after 15 minutes using a new device if there is no response. allopurinol (ZYLOPRIM) 300 mg tablet Take 1 tablet by mouth once daily. For gout. cycloSPORINE (RESTASIS) 0.05 % ophthalmic emulsion Use 1 Drop in both eyes two times a day. insulin glargine U-300 conc (TOUJEO SOLOSTAR U-300 INSULIN) 300 unit/mL (1.5 mL) take 24 units twice a day, max daily dose 60 units memantine (NAMENDA) 10 mg tablet Take 1 tablet by mouth two times a day. levothyroxine (SYNTHROID) 175 mcg tablet Take 1 tablet by mouth once daily. colchicine 0.6 mg tablet Take 2 tabs by mouth, followed by 1 tab one hour later for gout flare. May repeat in 1 week. insulin aspart U-100 (NOVOLOG FLEXPEN U-100 INSULIN) 100 unit/mL (3 mL) Inject 14 Units subcutaneously three times a day before meals. 14 in AM, 14 at lunch, 14 at supper, 10 at bed, plus extra based on sugars, max daily dose 100 units plus sliding scale blood sugar diagnostic (ACCU-CHEK ANNALISE PLUS TEST STRP) test strip Use to check blood sugar 4 times daily nitroglycerin sublingual (NITROQUICK) 0.4 mg SL tablet Dissolve 1 tablet under the tongue as needed. FOR CHEST PAIN. IF NO RELIEF CALL 911 furosemide (LASIX) 40 mg tablet Take 20 mg by mouth once daily. Per Dr. Lilian Vance, nephrology. Insulin Wales, Disposable, (BD ULTRAFINE III MINI PEN) 31 gauge x 3/16 1 Each as directed. 6 times daily. Dx:E11.40. On multiple insulin doses. evolocumab (REPATHA SURECLICK) 140 mg/mL pen injector Inject 140 mg subcutaneously every 2 weeks. Per [facility]. Lancets (ACCU-CHEK SOFTCLIX LANCETS) lancets Checking blood sugars 4 times daily. Dx: E11.42 BIPAP fluticasone (FLONASE) 50 mcg/actuation nasal spray Use 2 Sprays in each nostril once daily. COMPOUNDED PRESCRIPTION Initiate BiPAP @ 15/9 cm of water with humidification. Mask (per patient preference) optional chin strap (if indicated) , filters, tubing, humidifier and lifetime supplies. Dx. ABDI 327.23 polyethylene glycol 3350(MIRALAX 100 % ORAL POWDER) 17 grams/8 0z water daily [DISCONTINUED] calcium citrate (CITRACAL ORAL) Take 2 tablets by mouth two times a day. NOT TAKING Patient should start on January 26, 2024. HISTORIES PAST MEDICAL HISTORY Diagnosis Date (HFpEF) heart failure with preserved ejection fraction (HCC) 06/23/2015 Dr. 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) 02/06/2015 Coronary artery calcification seen on CAT scan 01/21/2013 Depressive disorder 03/31/2016 Diverticulosis 08/23/2010 Diverticulosis of colon (without mention of hemorrhage) Edema GERD without esophagitis 09/02/2019 Hearing loss HTN (hypertension) 08/12/2014 Hypertensive kidney disease with stage 3a chronic kidney disease (HCC) 08/12/2014 Infected prosthetic mesh of abdominal wall 06/30/2020 Ingrown toenail Morbid obesity (HCC) Obstructive sleep apnea CPAP Other and unspecified hyperlipidemia Other dyspnea and respiratory abnormality Palpitations Primary osteoarthritis of both hips 08/18/2020 Rosacea Symptomatic menopausal or female climacteric states 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 Type II or unspecified type diabetes mellitus without mention of complication, not stated as uncontrolled 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 07/10/2018 Unspecified intestinal obstruction 10/2018 FAMILY HISTORY Problem Relation Age of Onset COPD Mother at 64 yoa Ischemic Heart Disease Father Mi at 61 yoa Hypertension Sister 2 years younger Coronary Artery Disease Sister Stroke Sister Diabetes Sister GI Brother cirrhosis other (AAA rupture) Brother Lung cancer, 49 yoa other (parkinson) Son 41 Diabetes Maternal Aunt Cancer Paternal Aunt Cervical cancer Diabetes Paternal Aunt Heart Paternal Uncle Diabetes Paternal Grandfather Anesthesia Problems No Family History SOCIAL HISTORY Social History Tobacco Use Smoking status: Former Current packs/day: 0.00 Average packs/day: 2.0 packs/day for 15.0 years (30.0 ttl pk-yrs) Types: Cigarettes Start date: 09/10/1976 Quit date: 09/10/1991 Years since quittin.4 Smokeless tobacco: Never Vaping Use Vaping status: Never Used Substance Use Topics Alcohol use: No Drug use: No PHYSICAL EXAMINATION BP 116/73 Pulse 96 Resp 16 Wt 84.5 kg (186 lb 3.2 oz) LMP 06/27/2011 SpO2 98% BMI 35.75 kg/m GENERAL EXAM: General appearance: NAD, pleasant. HEENT: NC/AT, nasal congestion absent, no oral lesions, membranes moist. NECK: ROM nml. Lungs: CTA bilaterally. CV: RRR nl S1, S2 Extr: No cyanosis, clubbing or edema. Skin: Cool to touch. NEUROLOGICAL EXAM: General: Awake, alert, oriented x (person,place, month, year, President [facility]), fluent, no dysarthria; naming 2/3 intact, serial 7s 0/3, abstract 0/2, delayed recall 0/5. Did not complete full MOCA as results in increasing anxiety. CN: PERRL, EOMI and without nystagmus, VFF to confrontation, facial sensation and strength are normal and symmetric, hearing is intact to finger rub bilaterally, palate and tongue movements are intact and symmetric. SCM and trapezius strength normal. Motor: Normal tone, bulk and strength (5/5) bilaterally (throughout extremities x4). Coordination: FNF, COREY intact. No tremors. Sensation: Light touhc intact throughout. No evidence of neglect. Gait: Stable with normal stride and arm swing. Assessment and Plan: ASSESSMENT/PLAN: 1. Dementia without behavioral disturbance, psychotic disturbance, mood disturbance, or anxiety, unspecified dementia severity, unspecified dementia type (HCC) - ICD9: 294.20, ICD10: F03.90 (primary diagnosis) Overall some decline since last visit (per subjective history). MOCA as above - limited as with prior visits due to pt becoming anxious with testing. However, overall mood has improved and was in much more positive state during this visit (previously tearful). Needing assist at home, but provided by 02/04. They are not needing additional assistance at this time per . Again, prior side effects on Aricept. Will continue Namenda 10mg BID. No additional meds available at this time. Encouraged continued brain exercises. D/w pt and need to avoid those things that could exacerbate cognitive deficits including lack of sleep or untreated ABDI. Pt does not drive. 2. ABDI on CPAP - ICD9: 327.23, ICD10: G47.33 Compliance with PAP much improved as above. Encouraged continued compliance. Significant leak. She would prefer a nasal mask. Uncertain if will tolerate given bilevel settings. However, fitted with nasal pillow today which patient will try at home and see if tolerates and leaks decrease. Reminded to clean and replace PAP equipment regularly. Akliah Pena MD I spent a total of 40+ minutes on the date of the service which included preparing to see the patient, oczm-vb-[id number] patient care, completing clinical documentation, obtaining and/or reviewing separately obtained history, performing a medically appropriate examination, counseling and educating the patient/family/caregiver, ordering medications, tests, or procedures, independently interpreting results (not separately reported), and communicating results to the patient/family/caregiver. { documented in this encounter [facility] 02-23-2025 History of Present illness Narrative POPULATION HEALTH NAVIGATION OUTREACH Action/FYI Patient outreach for Hcc gaps; LOLY. Sent mychart to schedule LOLY. Uses OSH for eye exams. Reason for Outreach Care Gap/HCC or Scheduling Wellness Visits Care Gaps due: Diabetic Eye Exam Patient Contacted: Unable or unnecessary to reach patient: MyChart message sent HCC related Navigation Signature: Nakia Mariann Dewitt February 23, 2025 11:47 AM documented in this encounter [facility] 02-13-2025 Telephone encounter Note LVM for patient to return call to schedule with Dr Mccall for staged shoulder arthroplasties per Dr Ugarte [facility] 02-13-2025 Miscellaneous Notes LVM for patient to return call to schedule with Dr Mccall for staged shoulder arthroplasties per Dr Ugarte documented in this encounter [facility] 01-20-2025 History of Present illness Narrative Arslan Ugarte MD Department of Orthopaedics Orthopaedics [address] [place] [address] Dept: [phone] February 12, 2025 CHIEF COMPLAINT: New of the Left Shoulder (Primary osteoarthritis of both shoulders/Radiates across back and front of chest ) and New of the Right Shoulder (Primary osteoarthritis of both shoulders//) HPI: HPI Bhakti is a 79-year-old female with a history of osteoarthritis, presenting for evaluation of severe shoulder pain and limited mobility. Bhakti reports chronic, severe pain in both shoulders, which has significantly impacted her quality of life and sleep. She has been experiencing these symptoms for an extended period and is interested in discussing surgical options, specifically shoulder replacement. Recent x-rays have confirmed the presence of advanced osteoarthritis in both shoulders, with evidence of bone spurs and ahzf-mx-vrms contact. In addition to shoulder pain, Bhakti also reports swelling and stiffness in her fingers, which she attributes to osteoarthritis. She has not previously consulted a flavor tank tender or undergone a workup for rheumatoid arthritis. Her medical history is notable for bilateral hip and knee replacements due to severe arthritis. Bhakti's daughter, who is present and providing additional history, describes her mother's gait as a waddle-shuffle and notes that her walking is very labored and slow. Bhakti does not engage in regular exercise and has limited physical activity to moving from one room to another. She had previously used a leg electrifier operator but discontinued it due to increased leg pain. Bhakti's daughter also mentions that getting her mother out of the house is a significant effort, taking approximately three hours. ASSESSMENT: M19.011, M19.012 Primary osteoarthritis of both shoulders Z96.643 Presence of artificial hip joint, bilateral Z96.653 Presence of artificial knee joint, bilateral R26.2 Difficulty in walking, not elsewhere classified M62.81 Muscle weakness (generalized) 1. Primary osteoarthritis of both shoulders (M19.011) Severe osteoarthritis confirmed on X-ray with evidence of bone spurs and jcev-lt-dgww articulation. - Referred to Dr. Mccall for evaluation and potential reverse shoulder arthroplasty. 2. Presence of artificial hip joint, bilateral (Z96.643) Presence of artificial knee joint, bilateral (Z96.653) Patient has undergone bilateral hip and knee arthroplasties. - No further surgical intervention required at this time. 3. Difficulty in walking, not elsewhere classified (R26.2) Muscle weakness (generalized) (M62.81) Gait described as labored and slow, likely due to deconditioning. No current exercise regimen. - Ordered physical therapy to address deconditioning and improve strength. - Recommended gradual increase in physical activity, including potential aquatic therapy. OBJECTIVE: Ms. Bhakti Kirkpatrick is a pleasant 79 year old in no apparent distress. Gen:LMP 06/27/2011 nl development, obese, no deformities ENT: Normocephalic, normal hearing, moist mucosa CV: Pulses:Radial= 2+ and symmetric, capillary refill < 2 secs, no peripheral edema/varicosities Skin: no rash, bruising or lesions. Good turgor. Psych: cooperative and appropriate, alert and oriented x 3, good mood and affect. Musculoskeletal: - Musculoskeletal: - Hands: Swelling noted in fingers bilaterally. bilateral shoulders with limited range of motion, pseudoparalysis, crepitance on motion and pain with bilateral shoulder motion. Imaging: Imaging -IMPRESSION: Advanced degenerative changes as detailed. Dishcloth Folder: DOTTY Transcribe Date/Time: Jan 03 2025 11:43A Dictated by : RANDAL GALAVIZ MD This examination was interpreted and the report reviewed and electronically signed by: RANDAL GALAVIZ MD on Jan 03 2025 11:44AM EST Results-Findings * * *Final Report* * * DATE OF EXAM: Dec 30 2024 11:06AM WOX [id number] - XR SHLDR >/=3V AP/SHELBIE AP/OTHR RT / PROCEDURE REASON: Multiple joint pain * * * * Physician Interpretation * * * * XR SHLDR >/=3V AP/SHELBIE AP/OTHR LT, XR SHLDR >/=3V AP/SHELBIE AP/OTHR RT Ordering Physician: JESUS DAVILA BILATERAL SHOULDER RADIOGRAPHS Clinical Statement: Pain Comparison: None FINDINGS: There is no acute fracture or dislocation. Moderate acromioclavicular arthropathy is present bilaterally. There is severe glenohumeral osteoarthritis bilaterally with joint space narrowing, subchondral sclerosis and cyst formation. There are prominent marginal osteophytes. Within the left shoulder, there is ossification/calcification adjacent the greater tuberosity that could reflect a loose body versus calcific tendinitis. Supporting Subjective Information Below: Past Medical History: PAST MEDICAL HISTORY Diagnosis Date (HFpEF) heart failure with preserved ejection fraction (HCC) 06/23/2015 Dr. 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) 02/06/2015 Coronary artery calcification seen on CAT scan 01/21/2013 Depressive disorder 03/31/2016 Diverticulosis 08/23/2010 Diverticulosis of colon (without mention of hemorrhage) Edema GERD without esophagitis 09/02/2019 Hearing loss HTN (hypertension) 08/12/2014 Hypertensive kidney disease with stage 3a chronic kidney disease (HCC) 08/12/2014 Infected prosthetic mesh of abdominal wall 06/30/2020 Ingrown toenail Morbid obesity (HCC) Obstructive sleep apnea CPAP Other and unspecified hyperlipidemia Other dyspnea and respiratory abnormality Palpitations Primary osteoarthritis of both hips 08/18/2020 Rosacea Symptomatic menopausal or female climacteric states 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 Type II or unspecified type diabetes mellitus without mention of complication, not stated as uncontrolled 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 07/10/2018 Unspecified intestinal obstruction 10/2018 Past Surgical History: PAST SURGICAL HISTORY Procedure Laterality Date APPENDECTOMY 05/20/2001 open ARTHRP KNE CONDYLE&PLATU MEDIAL&LAT COMPARTMENTS Left 08/18/2014 Knee replacement, total left ARTHRP KNE CONDYLE&PLATU MEDIAL&LAT COMPARTMENTS Right 06/12/2012 total right knee arthroplasty ; THYROIDECTOMY TOTAL OR COMPLETE Bilateral 12/15/2009 Papillary Ca CHOLECYSTECTOMY 05/20/2001 Cholecystectomy-lap COLONOSCOPY FLX DX W/COLLJ SPEC WHEN PFRMD 06/06/2004 COLONOSCOPY FLX DX W/COLLJ SPEC WHEN PFRMD 08/23/2010 EXCISION EXCESSIVE SKIN & SUBQ TISSUE OTHER AREA 01/17/2002 Abdominoplasty EXPLORATORY LAPAROTOMY, CELIOTOMY-SP 06/24/2020 Takedown of enteroprosthetic fistula.Small bowel resection anastosmosis. Removal infected mesh. Recurrent vental hernia repair. HIP ARTHROSCOPY W/SYNOVECTOMY Right 09/19/2021 exc.seroma; gluteus repair; rotium augmentation; trochanteric bursectomy, iliotibial band resection LAPAROCOPIC SLEEVE GASTRECTOMY 03/10/2019 Extensive laparoscopic lysis of adhesions. EGD. Lap. TAP block. LEFT HEART CATH,PERCUTANEOUS 09/13/2017 no significant CAD NEPHRECTOMY PARTIAL Right 03/1991 Right side for benign tumor, small lesion removed REPAIR FIRST ABDOMINAL WALL HERNIA 09/25/2005 7 times total RPR 1ST INCAL/VNT HERNIA INCARCERATED 06/11/2007 with mesh TOTAL ABDOMINAL HYSTERECT W/WO RMVL TUBE OVARY 05/20/2001 PER, for fibroids and BSO TOTAL HIP REPLACEMENT Right 10/20/2020 anterior minimally invasive right total hip Medications: Current Outpatient Medications Medication Sig DULoxetine (CYMBALTA) 60 mg capsule Take 1 capsule by mouth once daily. glucagon 3 mg/actuation nasal spray (BAQSIMI) Use 1 [place] in the nose as needed for low blood sugar. May repeat after 15 minutes using a new device if there is no response. allopurinol (ZYLOPRIM) 300 mg tablet Take 1 tablet by mouth once daily. For gout. cycloSPORINE (RESTASIS) 0.05 % ophthalmic emulsion Use 1 Drop in both eyes two times a day. insulin glargine U-300 conc (TOUJEO SOLOSTAR U-300 INSULIN) 300 unit/mL (1.5 mL) take 24 units twice a day, max daily dose 60 units memantine (NAMENDA) 10 mg tablet Take 1 tablet by mouth two times a day. levothyroxine (SYNTHROID) 175 mcg tablet Take 1 tablet by mouth once daily. colchicine 0.6 mg tablet Take 2 tabs by mouth, followed by 1 tab one hour later for gout flare. May repeat in 1 week. insulin aspart U-100 (NOVOLOG FLEXPEN U-100 INSULIN) 100 unit/mL (3 mL) Inject 14 Units subcutaneously three times a day before meals. 14 in AM, 14 at lunch, 14 at supper, 10 at bed, plus extra based on sugars, max daily dose 100 units plus sliding scale blood sugar diagnostic (ACCU-CHEK ANNALISE PLUS TEST STRP) test strip Use to check blood sugar 4 times daily nitroglycerin sublingual (NITROQUICK) 0.4 mg SL tablet Dissolve 1 tablet under the tongue as needed. FOR CHEST PAIN. IF NO RELIEF CALL 911 furosemide (LASIX) 40 mg tablet Take 20 mg by mouth once daily. Per Dr. Lilian Vance, nephrology. Insulin [place], Disposable, (BD ULTRAFINE III MINI PEN) 31 gauge x 3/16 1 Each as directed. 6 times daily. Dx:E11.40. On multiple insulin doses. evolocumab (REPATHA SURECLICK) 140 mg/mL pen injector Inject 140 mg subcutaneously every 2 weeks. Per [facility]. Lancets (ACCU-CHEK SOFTCLIX LANCETS) lancets Checking blood sugars 4 times daily. Dx: E11.42 BIPAP fluticasone (FLONASE) 50 mcg/actuation nasal spray Use 2 Sprays in each nostril once daily. COMPOUNDED PRESCRIPTION Initiate BiPAP @ 15/9 cm of water with humidification. Mask (per patient preference) optional chin strap (if indicated) , filters, tubing, humidifier and lifetime supplies. Dx. ABDI 327.23 polyethylene glycol 3350(MIRALAX 100 % ORAL POWDER) 17 grams/8 0z water daily No current facility-administered medications for this visit. Allergies: Adhesive Tape (Rosins), Crestor [Rosuvastatin Calcium], Lantus [Insulin Glargine], Nickel, Palladium, Pravastatin, and Toradol [Ketorolac] ROS: General (negative for fatigue, malaise, weight loss/gain) HEENT (negative for headache, earache, recent vision changes, sinus pain, sore throat) Respiratory (no recent shortness of breath, hemoptysis) CV (negative for chest tightness, palpitations) Musculoskeletal (see HPI) Psych (no depression, anxiety) Musculoskeletal: (+) bilateral shoulder pain, (+) finger swelling, (+) finger stiffness, (+) abnormal gait Neurological: (+) balance difficulty Recording using ambient archify software for draft documentation of the visit was discussed with the patient/authorized patient portal representative; all questions welcomed and answered. Patient/authorized patient portal representative agreed to proceed Arslan Ugarte MD documented in this encounter [facility] 01-12-2025 History of Present illness Narrative Radiology Service Progress Note PATIENT NAME: Bhakti Kirkpatrick DATE OF SERVICE: January 12, 2025 TIME: 1:59 PM PATIENT IDENTITY VERIFICATION COMPLETED USING TWO (2) IDENTIFIERS: Name and Date of confirmed by patient verbally. FALL SCREENING: Has the patient had 2 falls in the last year or 1 fall with injury or currently using an Ambulatory Assistive Device (Walker, Cane, Wheelchair, Crutches, etc.)? No PATIENT GENDER DATA: Assigned female at . status: : No status: NO. PATIENT RELEVANT IMPLANT DATA REVIEWED: Not Applicable PATIENT PRESENTS WITH AN IMPLANTABLE OR ATTACHED HRIS DEVELOPER: No RADIOLOGY DEPARTMENT: Mammography PERIPHERAL IV DATA: Not applicable SIGNED BY: Edna Forrester January 12, 2025 1:59 PM documented in this encounter [facility] 12-30-2024 History of Present illness Narrative Radiology Service Progress Note PATIENT NAME: Bhakti Kirkpatrick DATE OF SERVICE: December 30, 2024 TIME: 10:25 AM PATIENT IDENTITY VERIFICATION COMPLETED USING TWO (2) IDENTIFIERS: Name and Date of confirmed by patient verbally. FALL SCREENING: Has the patient had 2 falls in the last year or 1 fall with injury or currently using an Ambulatory Assistive Device (Walker, Cane, Wheelchair, Crutches, etc.)? Yes, Patient High Risk for Falls What interventions were put in place to prevent falls during this visit? Offered Assistance with Transfers/Clothing and Instructed Patient to Remain Seated (Not on Exam Table) Until Exam PATIENT GENDER DATA: Assigned female at . status: : No status: NO. PATIENT RELEVANT IMPLANT DATA REVIEWED: Not Applicable PATIENT PRESENTS WITH AN IMPLANTABLE OR ATTACHED HRIS DEVELOPER: No RADIOLOGY DEPARTMENT: General X-ray: Exam(s) Completed: Pelvis X-Ray: Pelvis with Hip Bilateral Lower Extremity X-Ray(s): Knee, AP / Lat / Tunne / Merchant Bilateral and Wt. Bearing Upper Extremity X-Ray(s): Shoulder, AP / TRUE AP / AXILLARY bilateral PERIPHERAL IV DATA: Not applicable SIGNED BY: RT Zaid(R) December 30, 2024 10:25 AM documented in this encounter [facility] 12-30-2024 Instructions Jesus Davila MD - 12/30/2024 10:10 AM EDT We discussed your chronic pain and overall health concerns: - You reported experiencing constant, severe pain throughout your entire body, including your neck, back, shoulders, hips, knees, and legs. You also mentioned difficulty walking and performing daily activities due to the pain. - I performed a physical exam and noted tenderness and pain in multiple areas, including your shoulders, hips, and knees. I also observed limited mobility and difficulty with certain movements. - I suspect you may have arthritis in multiple joints. To better understand the extent of your condition: - I ordered x-rays of your shoulders, hips, and knees to assess for wear and tear in these joints. - I ordered blood tests, including a complete blood count, complete blood chemistry, and markers for inflammation, to check for systemic inflammation or other underlying issues. - You mentioned previously being on Cymbalta, which is FDA-approved for chronic pain, fibromyalgia, and depression. We discussed the possibility of restarting this medication. I will review your test results and re-evaluate your pain before making a decision about restarting Cymbalta. We discussed your current medications and pain management: - You are currently using Voltaren gel in the evenings for joint pain and taking arthritis-strength Tylenol (2 tablets in the morning and 2 in the evening). Please continue using these as directed. - If your pain worsens or does not improve, please let me know so we can adjust your treatment plan. We discussed next steps: - Please complete the blood tests and x-rays today. These will help guide our next steps in managing your pain. - You are scheduled to see a neurologist on April 08. We will keep this appointment as planned. - I will review your test results and communicate with you through Dittit. Please reach out to me via [place] [employer] if you have any questions or concerns in the meantime. Let s work together to address your pain and improve your quality of life. documented in this encounter [facility] 12-30-2024 History of Present illness Narrative This note was created using BookingNestter. Subjective Patient presents with: Arthritis Fatigue Bhakti Kirkpatrick is a 79 year old female here with Rivera. I have not seen her for more than one year. Recording using Jam[employer] Mobile software for draft documentation of the visit was discussed with the patient/authorized patient portal representative; all questions welcomed and answered. Patient/authorized patient portal representative agreed to proceed Bhakti is a 79-year-old female presenting with generalized body pain. Bhakti reports constant, severe pain affecting her entire body, including joints, muscles, and bones. The pain is most pronounced in her neck, back, shoulders, hips, and knees, and is exacerbated by movement. She also experiences occasional joint swelling. The pain is not influenced by weather changes or time of day and is described as debilitating, leading to significant limitations in mobility and daily activities. She expresses feelings of hopelessness and a desire for relief, stating, I want to . Bhakti has a history of arthritis, previously diagnosed by a specialist. She has been using Voltaren gel in the evenings for pain management, applied by her caregiver, with some relief. She also takes arthritis-strength Tylenol, two tablets in the morning and two in the evening. She recently discontinued Cymbalta, which she had been taking for chronic pain and depression, under the guidance of her caregiver. Bhakti has a history of falls, with a recent incident resulting in admission at [facility] in the past. She denies current use of a walker but reports difficulty walking and fears of falling. She has a scheduled appointment with a neurologist in March. Review of Systems Constitutional: (+) fatigue Neck: (+) neck pain Musculoskeletal: (+) generalized myalgia, (+) arthralgia, (+) joint swelling, (+) difficulty walking, (+) back pain, (+) hip pain, (+) shoulder pain, (+) knee pain Psychiatric: (+) suicidal ideation, (-) depressed mood ACTIVE PROBLEM LIST Edema Abdi Treated With Bipap Arteriosclerotic Heart Disease (Ashd) Hypertensive Heart Disease With Heart Failure and Stage 4 Chronic Kidney Disease (Hcc) Degenerative Arthritis of Knee Myalgia Hyperlipidemia (Hfpef) Heart Failure With Preserved Ejection Fraction (Hcc) Fatty Liver History of Thyroid Cancer Type 2 Diabetes Mellitus With Stage 4 Chronic Kidney Disease, With Long-Term Current Use of Insulin (Hcc) Depression, Recurrent Chronic Kidney Disease, Stage IV (Severe) (Hcc) S/P Laparoscopic Sleeve Gastrectomy Gerd Without Esophagitis Sensory Hearing Loss, Bilateral Class 3 Severe Obesity With Body Mass Index (Bmi) of 45.0 to 49.9 in Adult Type 2 Diabetes Mellitus With Diabetic Neuropathy, With Long-Term Current Use of Insulin (Hcc) Primary Osteoarthritis of Both Hips Vertigo Cognitive Impairment Circadian Rhythm Sleep Disorder, Irregular Sleep Wake Type Anemia Acute Gout Dysuria Urinary Frequency Cloudy Urine Obesity, Class II, Bmi 35-39.9 Arthritis of Left Hip Slow Heart Rate Social History Tobacco Use Smoking status: Former Current packs/day: 0.00 Average packs/day: 2.0 packs/day for 15.0 years (30.0 ttl pk-yrs) Types: Cigarettes Start date: 09/10/1976 Quit date: 09/10/1991 Years since quittin.3 Smokeless tobacco: Never Vaping Use Vaping status: Never Used Substance Use Topics Alcohol use: No Drug use: No Current Outpatient Medications Medication Sig glucagon 3 mg/actuation nasal spray (BAQSIMI) Use 1 [place] in the nose as needed for low blood sugar. May repeat after 15 minutes using a new device if there is no response. allopurinol (ZYLOPRIM) 300 mg tablet Take 1 tablet by mouth once daily. For gout. cycloSPORINE (RESTASIS) 0.05 % ophthalmic emulsion Use 1 Drop in both eyes two times a day. insulin glargine U-300 conc (TOUJEO SOLOSTAR U-300 INSULIN) 300 unit/mL (1.5 mL) take 24 units twice a day, max daily dose 60 units memantine (NAMENDA) 10 mg tablet Take 1 tablet by mouth two times a day. levothyroxine (SYNTHROID) 175 mcg tablet Take 1 tablet by mouth once daily. colchicine 0.6 mg tablet Take 2 tabs by mouth, followed by 1 tab one hour later for gout flare. May repeat in 1 week. insulin aspart U-100 (NOVOLOG FLEXPEN U-100 INSULIN) 100 unit/mL (3 mL) Inject 14 Units subcutaneously three times a day before meals. 14 in AM, 14 at lunch, 14 at supper, 10 at bed, plus extra based on sugars, max daily dose 100 units plus sliding scale blood sugar diagnostic (ACCU-CHEK ANNALISE PLUS TEST STRP) test strip Use to check blood sugar 4 times daily nitroglycerin sublingual (NITROQUICK) 0.4 mg SL tablet Dissolve 1 tablet under the tongue as needed. FOR CHEST PAIN. IF NO RELIEF CALL 911 furosemide (LASIX) 40 mg tablet Take 20 mg by mouth once daily. Per Dr. Lilian Vance, nephrology. Insulin Wales, Disposable, (BD ULTRAFINE III MINI PEN) 31 gauge x 3/16 1 Each as directed. 6 times daily. Dx:E11.40. On multiple insulin doses. evolocumab (REPATHA SURECLICK) 140 mg/mL pen injector Inject 140 mg subcutaneously every 2 weeks. [facility]. Lancets (ACCU-CHEK SOFTCLIX LANCETS) lancets Checking blood sugars 4 times daily. Dx: E11.42 BIPAP fluticasone (FLONASE) 50 mcg/actuation nasal spray Use 2 Sprays in each nostril once daily. COMPOUNDED PRESCRIPTION Initiate BiPAP @ 15/9 cm of water with humidification. Mask (per patient preference) optional chin strap (if indicated) , filters, tubing, humidifier and lifetime supplies. Dx. ABDI 327.23 polyethylene glycol 3350(MIRALAX 100 % ORAL POWDER) 17 grams/8 0z water daily No current facility-administered medications for this visit. Objective BP 106/62 Pulse 100 Ht 153.7 cm (5' 0.51) Wt 84 kg (185 lb 3 oz) LMP 06/27/2011 SpO2 98% BMI 35.56 kg/m Physical Exam Constitutional: General: She is not in acute distress. Appearance: She is not diaphoretic. Comments: Patient examined sitting. She was unable to get on the exam table. HENT: Head: Atraumatic. Eyes: Conjunctiva/sclera: Conjunctivae normal. Cardiovascular: Heart sounds: Normal heart sounds. Pulmonary: Breath sounds: Normal breath sounds. Abdominal: Palpations: Abdomen is soft. Tenderness: There is no abdominal tenderness. Musculoskeletal: Right shoulder: Tenderness present. No swelling, deformity or crepitus. Decreased range of motion. Decreased strength. Left shoulder: Tenderness present. No swelling, deformity or crepitus. Decreased range of motion. Decreased strength. Right upper arm: Tenderness present. Left upper arm: Tenderness present. Right elbow: Normal. Left elbow: Normal. Right forearm: Normal. Left forearm: Normal. Right wrist: Normal. Left wrist: Normal. Right hand: Normal. Left hand: Normal. Cervical back: No rigidity or tenderness. Thoracic back: Tenderness present. Lumbar back: Tenderness present. Negative right straight leg raise test and negative left straight leg raise test. Right hip: Tenderness present. Decreased range of motion. Left hip: Tenderness present. Decreased range of motion. Right upper leg: Tenderness present. Left upper leg: Tenderness present. Right knee: No swelling or deformity. Decreased range of motion. No tenderness. Left knee: No swelling or deformity. Decreased range of motion. No tenderness. Right lower leg: No edema. Left lower leg: No edema. Right ankle: No tenderness. Normal range of motion. Left ankle: No tenderness. Normal range of motion. Neurological: General: No focal deficit present. Mental Status: She is alert. Gait: Gait abnormal. Comments: Slow shuffling gait. Psychiatric: Attention and Perception: Attention normal. Mood and Affect: Mood normal. Speech: Speech normal. Thought Content: Thought content includes suicidal ideation. Thought content does not include suicidal plan. Assessment and Plan 1. Chronic pain syndrome - ICD9: 338.4, ICD10: G89.4 (primary diagnosis) - COMPLETE BLOOD COUNT - COMPREHENSIVE METABOLIC PANEL - SEDIMENTATION RATE, WESTERGREN - C-REACTIVE PROTEIN - CREATINE KINASE/CK 2. Multiple joint pain - ICD9: 719.49, ICD10: M25.50 - COMPLETE BLOOD COUNT - COMPREHENSIVE METABOLIC PANEL - SEDIMENTATION RATE, WESTERGREN - C-REACTIVE PROTEIN - XR SHOULDER GENERAL 3V OR MORE AP/TRUE AP/OTHER LEFT - XR SHOULDER GENERAL 3V OR MORE AP/TRUE AP/OTHER RIGHT - XR HIP BILATERAL 5V PEL/AP/LAT EACH HIP - XR KNEE GENERAL 4V AP BOTH/PA BOTH/LAT/MERC BILATERAL - CREATINE KINASE/CK 3. Physical debility - ICD9: 799.3, ICD10: R53.81 - COMPLETE BLOOD COUNT - COMPREHENSIVE METABOLIC PANEL - SEDIMENTATION RATE, WESTERGREN - C-REACTIVE PROTEIN - THYROID STIMULATING HORMONE 4. Depression, recurrent - ICD9: 296.30, ICD10: F33.9 We agreed to reevaluation of chronic pain. She was not enthusiastic about pain management referral. She had benefit from physical therapy in the past, but was limited by her homebound status. Rivera was willing to take her to outpatient therapy in the past, but pain, fatigue, or motivation was a hindrance. We agreed to consider home physical therapy if tests are inconclusive, as well as restart DULOXETINE. Jesus Davila MD documented in this encounter [facility] 12-29-2024 Telephone encounter Note Phoned patient and spoke with patient's . Advised him to check with pharmacy there should be refills until July 2025 at [facility]. Ana Lilia Fernandez LPN [facility] 12-29-2024 Miscellaneous Notes Phoned patient and spoke with patient's . Advised him to check with pharmacy there should be refills until July 2025 at [facility]. Ana Lilia Fernandez LPN documented in this encounter [facility] 12-19-2024 Telephone encounter Note Mammogram arranged for 01/12/25. [facility] 12-19-2024 Miscellaneous Notes Mammogram arranged for 01/12/25. 1st attempt LVM to schedule mammogram PSS please contact Patient to schedule. Christin Thao LPN Mammogram ordered. Pt's called requesting a mammogram order to be placed Please advise documented in this encounter [facility] 12-17-2024 Telephone encounter Note 1st attempt LVM to schedule mammogram [facility] 12-16-2024 Telephone encounter Note PSS please contact Patient to schedule. Christin Thao LPN [facility] 12-16-2024 Telephone encounter Note Mammogram ordered. [facility] 12-15-2024 Telephone encounter Note Pt's called requesting a mammogram order to be placed Please advise [facility] Work Phone: 11-28-2024 History of Present illness Narrative POPULATION HEALTH NAVIGATION OUTREACH Action/FYI Patient outreach for HCC gaps; DIABETIC EYE EXAM, AWANDREW Ramos (CMP done 12/02 but BMP not scheduled, lab orders are in for patient from provider on 11/20/24) Reason for Outreach Care Gap/HCC or Scheduling Wellness Visits Care Gaps due: Medicare Annual Wellness Visit Diabetic Eye Exam KED Patient Contacted: Unable or unnecessary to reach patient: Dittit message sent HCC related Navigation Signature: Nakia Dewitt November 28, 2024 12:46 PM documented in this encounter [facility] 11-26-2024 Telephone encounter Note Kim nurse with [employer] calling asking about Bone Density scan for pt. Kim states pt had a fracture so she is following up to see if the pt has had a bone density test. And if not, she would like to fax information to Dr. Davila. Asked Kim if she has spoken to pt. She states she attempted with no answer. Called pt while had Kim on the line. Spoke with pt and her . Pt had a stress fracture in her foot in the fall. Explained about the bone density. Kim took the call with the pt and is going to check coverage for a BDS for pt and she will call back if she decides to proceed or will discuss with Dr. Davila at her next visit. [facility] 11-26-2024 Miscellaneous Notes Kim nurse with [employer] calling asking about Bone Density scan for pt. Kim states pt had a fracture so she is following up to see if the pt has had a bone density test. And if not, she would like to fax information to Dr. Davila. Asked Kim if she has spoken to pt. She states she attempted with no answer. Called pt while had Kim on the line. Spoke with pt and her . Pt had a stress fracture in her foot in the fall. Explained about the bone density. Kim took the call with the pt and is going to check coverage for a BDS for pt and she will call back if she decides to proceed or will discuss with Dr. Davila at her next visit. documented in this encounter [facility] 11-20-2024 Instructions Blake Early MD - 11/20/2024 3:41 PM EDT Thyroid labs in 6 months. Call the office if low blood sugars. Glucagon nasal spray Rx. For use when glucose really low 50 and under. Follow up in 6 months. documented in this encounter [facility] 11-20-2024 History of Present illness Narrative Reason for Consultation: DM Type 2 Referring Physician: SELF HISTORY OF PRESENT ILLNESS Ms. Kirkpatrick is a 79 year old female presenting here today for a follow up of DM Type 2 and surgical hypothyroidism, hx thyroid cancer dx 2009. Patient of Dr. Best with last OV 08/25/2024. She is maintained on LT4 175 mcg daily. 05/2024 Tg <0.1, TSH 0.327, free T4 1.5. As I recall, she was initially diagnosed with diabetes in 2003. HbA1c was 5.7% 05/2024 and is 5.9% 09/2024. Last eye exam 08/2024: no retinopathy Known complications include: ABDI (not using CPAP), mixed HPL, s/p gastric sleeve, CKD, microalbuminuria, neuropathy Exacerbating factors include: stage 2 obesity Current diabetes regimen is as follows: Toujeo 10 units in AM and 24 units HS Humalog 13-5-11 with meals plus scale she is checking her blood glucose 3 times daily. she does bring a log book today for review. LDE Blood Sugar Frequency: AM: 133, 181, 148, 170, 157, 120, 170, 136, 112, 131, 134, 111, 123 Lunch: 85, 127, 136, 66 (held her insulin), 151, 102, 94, 149, 124, 120 Dinner: 159, 117, 110, 141, 172, 135, 112, 103, 140 Hypoglycemia frequency: occasional Hypoglycemia awareness: reduced Regarding symptoms of hyperglycemia, she is not experiencing any symptoms such as polyuria, polydipsia, nocturia or rapid weight loss or blurry vision. Surgery (12/15/09): total thyroidectomy, Dr. Jamey Ibrahim, [facility] Pathology (10/29/09): FNA Atypical cells present in a background of cyst contents, suspicious for papillary thyroid carcinoma (12/15/09): single well-circumscribed nodule in the right inferior lobe, which measured 3.5 cm in greatest dimension. The nodule was extensively hemorrhagic and cystic with a rim of viable material which ranges in appearance from papillary architecture to follicular structures. There is no evidence of a higher grade component. There is no definitive lymphovascular space invasion identified. In some areas, the tumor cells have oncocytic cytoplasm, however, the cells do not meet criteria for tall-cell variant of papillary thyroid carcinoma. Scan (02/24/10): post-Rx 131-Iodine scan, SIDDIQI (02/16/10): Rx 102.4 mCi 131-Iodine Ultrasound (01/18/10): no suspicious adenopathy along great vessels or in lateral neck on either side. No masses in thyroid bed. (11/11/15): no suspicious adenopathy along great vessels or in lateral neck on either side. No masses in thyroid bed. (11/28/16): no suspicious adenopathy along great vessels or in lateral neck on either side. No masses in thyroid bed. PAST MEDICAL HISTORY Diagnosis Date (HFpEF) heart failure with preserved ejection fraction (HCC) 06/23/2015 Dr. 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) 02/06/2015 Coronary artery calcification seen on CAT scan 01/21/2013 Depressive disorder 03/31/2016 Diverticulosis 08/23/2010 Diverticulosis of colon (without mention of hemorrhage) Edema GERD without esophagitis 09/02/2019 Hearing loss HTN (hypertension) 08/12/2014 Hypertensive kidney disease with stage 3a chronic kidney disease (HCC) 08/12/2014 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) 06/30/2020 Ingrown toenail Morbid obesity (HCC) Obstructive sleep apnea CPAP Other and unspecified hyperlipidemia Other dyspnea and respiratory abnormality Palpitations Primary osteoarthritis of both hips 08/18/2020 Rosacea Symptomatic menopausal or female climacteric states 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 Type II or unspecified type diabetes mellitus without mention of complication, not stated as uncontrolled 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 07/10/2018 Unspecified intestinal obstruction 10/2018 PAST SURGICAL HISTORY Procedure Laterality Date APPENDECTOMY 05/20/2001 open ARTHRP KNE CONDYLE&PLATU MEDIAL&LAT COMPARTMENTS Left 08/18/2014 Knee replacement, total left ARTHRP KNE CONDYLE&PLATU MEDIAL&LAT COMPARTMENTS Right 06/12/2012 total right knee arthroplasty ; THYROIDECTOMY TOTAL OR COMPLETE Bilateral 12/15/2009 Papillary Ca CHOLECYSTECTOMY 05/20/2001 Cholecystectomy-lap COLONOSCOPY FLX DX W/COLLJ SPEC WHEN PFRMD 06/06/2004 COLONOSCOPY FLX DX W/COLLJ SPEC WHEN PFRMD 08/23/2010 EXCISION EXCESSIVE SKIN & SUBQ TISSUE OTHER AREA 01/17/2002 Abdominoplasty EXPLORATORY LAPAROTOMY, CELIOTOMY-SP 06/24/2020 Takedown of enteroprosthetic fistula.Small bowel resection anastosmosis. Removal infected mesh. Recurrent vental hernia repair. HIP ARTHROSCOPY W/SYNOVECTOMY Right 09/19/2021 exc.seroma; gluteus repair; rotium augmentation; trochanteric bursectomy, iliotibial band resection LAPAROCOPIC SLEEVE GASTRECTOMY 03/10/2019 Extensive laparoscopic lysis of adhesions. EGD. Lap. TAP block. LEFT HEART CATH,PERCUTANEOUS 09/13/2017 no significant CAD NEPHRECTOMY PARTIAL Right 03/1991 Right side for benign tumor, small lesion removed REPAIR FIRST ABDOMINAL WALL HERNIA 09/25/2005 7 times total RPR 1ST INCAL/VNT HERNIA INCARCERATED 06/11/2007 with mesh TOTAL ABDOMINAL HYSTERECT W/WO RMVL TUBE OVARY 05/20/2001 PER, for fibroids and BSO TOTAL HIP REPLACEMENT Right 10/20/2020 anterior minimally invasive right total hip FAMILY HISTORY Problem Relation Age of Onset COPD Mother at 64 yoa Ischemic Heart Disease Father Mi at 61 yoa Hypertension Sister 2 years younger Coronary Artery Disease Sister Stroke Sister Diabetes Sister GI Brother cirrhosis other (AAA rupture) Brother Lung cancer, 49 yoa other (parkinson) Son 41 Diabetes Maternal Aunt Cancer Paternal Aunt Cervical cancer Diabetes Paternal Aunt Heart Paternal Uncle Diabetes Paternal Grandfather Anesthesia Problems No Family History Social History Tobacco Use Smoking status: Former Current packs/day: 0.00 Average packs/day: 2.0 packs/day for 15.0 years (30.0 ttl pk-yrs) Types: Cigarettes Start date: 09/10/1976 Quit date: 09/10/1991 Years since quittin.2 Smokeless tobacco: Never Vaping Use Vaping status: Never Used Substance Use Topics Alcohol use: No Drug use: No Allergies As of Date: 11/20/2024 Allergen Noted Reaction ADHESIVE TAPE (ROSINS) 05/08/2006 Other: See Comments CRESTOR [ROSUVASTATIN CALCIUM] 05/29/2012 Intolerance LANTUS [INSULIN GLARGINE] 05/30/2017 Intolerance NICKEL 05/29/2012 Rash PALLADIUM 05/26/2016 Rash PRAVASTATIN 11/14/2012 Intolerance TORADOL [KETOROLAC] 05/25/2003 Hives Fully Assessed 11/20/2024 Current Outpatient Medications Medication Sig Dispense Refill allopurinol (ZYLOPRIM) 300 mg tablet Take 1 tablet by mouth once daily. For gout. 90 tablet 1 cycloSPORINE (RESTASIS) 0.05 % ophthalmic emulsion Use 1 Drop in both eyes two times a day. insulin glargine U-300 conc (TOUJEO SOLOSTAR U-300 INSULIN) 300 unit/mL (1.5 mL) take 24 units twice a day, max daily dose 60 units 4 Each 11 memantine (NAMENDA) 10 mg tablet Take 1 tablet by mouth two times a day. 180 tablet 3 levothyroxine (SYNTHROID) 175 mcg tablet Take 1 tablet by mouth once daily. 90 tablet 3 colchicine 0.6 mg tablet Take 2 tabs by mouth, followed by 1 tab one hour later for gout flare. May repeat in 1 week. 6 tablet 1 DULoxetine (CYMBALTA) 60 mg capsule Take 1 capsule by mouth once daily. 90 capsule 1 insulin aspart U-100 (NOVOLOG FLEXPEN U-100 INSULIN) 100 unit/mL (3 mL) Inject 14 Units subcutaneously three times a day before meals. 14 in AM, 14 at lunch, 14 at supper, 10 at bed, plus extra based on sugars, max daily dose 100 units plus sliding scale 37.8 mL 3 blood sugar diagnostic (ACCU-CHEK ANNALISE PLUS TEST STRP) test strip Use to check blood sugar 4 times daily 400 Strip 3 nitroglycerin sublingual (NITROQUICK) 0.4 mg SL tablet Dissolve 1 tablet under the tongue as needed. FOR CHEST PAIN. IF NO RELIEF CALL 911 (Patient taking differently: Dissolve 0.4 mg under the tongue every 5 minutes as needed for chest pain. One tablet every 5 minutes x 3 doses FOR CHEST PAIN. IF NO RELIEF CALL 911) 25 tablet 0 furosemide (LASIX) 40 mg tablet Take 20 mg by mouth once daily. Per Dr. Lilian Vance, nephrology. Insulin [place], Disposable, (BD ULTRAFINE III MINI PEN) 31 gauge x 3/16 1 Each as directed. 6 times daily. Dx:E11.40. On multiple insulin doses. 200 Each 11 glucagon 3 mg/actuation nasal spray (BAQSIMI) Use 1 [place] in the nose as needed for low blood sugar. May repeat after 15 minutes using a new device if there is no response. 2 Each 2 evolocumab (REPATHA SURECLICK) 140 mg/mL pen injector Inject 140 mg subcutaneously every 2 weeks. [facility]. Lancets (ACCU-CHEK SOFTCLIX LANCETS) lancets Checking blood sugars 4 times daily. Dx: E11.42 150 Each 11 BIPAP fluticasone (FLONASE) 50 mcg/actuation nasal spray Use 2 Sprays in each nostril once daily. (Patient taking differently: Use 2 Sprays in each nostril as needed for cold/allergy symptoms.) 1 Bottle 11 COMPOUNDED PRESCRIPTION Initiate BiPAP @ 15/9 cm of water with humidification. Mask (per patient preference) optional chin strap (if indicated) , filters, tubing, humidifier and lifetime supplies. Dx. ABDI 327.23 1 Device 0 polyethylene glycol 3350(MIRALAX 100 % ORAL POWDER) 17 grams/8 0z water daily (Patient taking differently: 17 grams/8 0z water daily by mouth daily for constipation) 0 0 aspirin, enteric coated (ASPIRIN, ENTERIC COATED) 81 mg EC tablet Take 1 tablet by mouth two times a day. 60 tablet 0 No current facility-administered medications for this visit. REVIEW OF SYSTEMS General: no fever, chills or acute changes in weight in the last 6 months Skin: no rashes, pruritis but has dry skin Cardiac: denies chest pain, heart palpitations or orthopnea Pulmonary: denies wheezing, productive cough or exertional dyspnea GI: denies nausea, emesis, abdominal pain PHYSICAL EXAMINATION BP 100/65 Pulse 87 Wt 82.8 kg (182 lb 8.7 oz) BMI 35.05 kg/m2 General appearance: Well appearing, alert, in no acute distress, well-hydrated, well nourished, hard of hearing. Skin: Skin color, texture, turgor normal Eyes: Anicteric sclera. Pupils are equally round. Extraocular movements are intact. Oropharynx: Lips, mucosa, and tongue normal Neck: Supple, no adenopathy Lungs: Lungs clear to auscultation. No wheezing, rhonchi, rales. Heart: RRR Abdomen: soft, non-tender. Bowel sounds normal. Extremities: Trace edema Neuro: non-focal DATA Latest Ref Rng 05/23/2024 10/02/2024 Hemoglobin A1C 4.3 - 5.6 % 5.7 (H) 5.9 (H) Estimated Average Glucose mg/dL 117 123 Latest Ref Rng 10/02/2024 Creatinine, Ur Random (UCRR) 20.0 - 300.0 mg/dL 48.5 Albumin, Urine Random mg/L 69.2 Albumin/Creat Ratio <30 mg/g 143 (H) Latest Ref Rng 01/24/2024 10/02/2024 Protein, Total 6.3 - 8.0 g/dL 6.8 Albumin 3.9 - 4.9 g/dL 4.3 Calcium 8.5 - 10.2 mg/dL 8.7 10.0 Bilirubin, Total 0.2 - 1.3 mg/dL 0.4 Alkaline Phosphatase 34 - 123 U/L 123 AST 13 - 35 U/L 20 ALT 7 - 38 U/L 23 Glucose 74 - 99 mg/dL 150 (H) 159 (H) BUN 7 - 21 mg/dL 22 (H) 26 (H) Creatinine 0.58 - 0.96 mg/dL 1.07 (H) 0.98 (H) Sodium 136 - 144 mmol/L 139 142 Potassium 3.7 - 5.1 mmol/L 3.8 4.1 Chloride 98 - 107 mmol/L 104 103 CO2 22 - 30 mmol/L 27 28 Anion Gap 8 - 15 mmol/L 8 (L) 11 eGFR >=60 mL/min/1.73m 54 (L) 60 Latest Ref Rng 10/02/2024 WBC 3.70 - 11.00 k/uL 7.78 RBC 3.90 - 5.20 m/uL 4.04 Hemoglobin 11.5 - 15.5 g/dL 12.1 Hematocrit 36.0 - 46.0 % 37.1 MCV 80.0 - 100.0 fL 91.8 MCH 26.0 - 34.0 pg 30.0 MCHC 30.5 - 36.0 g/dL 32.6 RDW-CV 11.5 - 15.0 % 13.7 Platelet Count 150 - 400 k/uL MPV 9.0 - 12.7 fL 9.8 Absolute nRBC <0.01 k/uL <0.01 Latest Ref Rng 10/02/2024 Cholesterol, Total <200 mg/dL 103 Triglyceride <150 mg/dL 162 (H) HDL Cholesterol >39 mg/dL 50 Non HDL Cholesterol <130 mg/dL 53 Fasting Time hrs 10 VLDL Cholesterol <30 mg/dL 32 (H) TC:HDL Ratio <5.10 2.06 LDL Cholesterol <100 mg/dL 21 LDL:HDL Ratio <2.54 0.42 Latest Ref Rng 05/23/2024 Thyroglobulin Ab, Serum <4.0 IU/mL <0.9 Thyroglobulin, Serum 1.6 - 50.0 ng/mL <0.1 (L) Free T4 0.9 - 1.7 ng/dL 1.5 TSH 0.270 - 4.200 mIU/L 0.327 IMPRESSION: Ms. Kirkpatrick is a 79 year old female here for evaluation of DM Type 2 complicated by ABDI (not using CPAP), mixed HPL, s/p gastric sleeve, CKD, microalbuminuria, neuropathy. HbA1c is 5.9%. Glucose at target with an isolated lunchtime reading of 66 mg/dL at which time patient held dose of lunch insulin (appropriately). She has reduced hypoglycemic awareness. She reports good PO intake. RECOMMENDATIONS: 1. Glycemic control: Target HbA1C is less than 7.0% per ADA guidelines. This patient is at this target on current regimen, without excessive hypoglycemia. We will continue the current regimen of: Toujeo 10 units in AM and 24 units HS Humalog 13-- with meals plus scale Glucagon nasal spray Rx sent. Hypoglycemia precautions were reviewed. Call the office if glucose readings 70's or less. The patient was reminded to check her blood glucose 3 times daily and to record the data in a logbook. She was advised to bring their logbook to each office visit. I recommended at least 150 minutes per week of moderate physical activity, such as walking and to reduce carbohydrates and overall caloric intake. 2. Hypertension/BP control: BP goal for patients with diabetes is 130/80. This patient is at target. 3. Lipids: Target LDL cholesterol in patients with diabetes is less than 100, less than 70 if patient has overt CVD. Several studies have shown cardiovascular benefits of statin therapy in all patients with diabetes over age 40 with at least 1 CVD risk factor. This patient is currently at target on Repatha. 4. Antiplatelet therapy: Low dose antiplatelet therapy is recommended for patients with diabetes at increased cardiovascular risk. This includes most men over age 50 and most women over age 60. This patient is on antiplatelet therapy. 5. Nephropathy screening: Annual measurement of urine albumin excretion is recommended in patients with diabetes. This patient has microalbuminuria 09/2024 and is not on SD-I or ARB therapy. 6. Ophthalmology: Annual dilated eye exams are recommended for patients with type 1 and type 2 diabetes. This patient is up to date with their annual eye exam 08/2024 and has no history of retinopathy. 7. Post-surgical hypothyroidism, hx thyroid cancer 2010 s/p thyroidectomy and SIDDIQI: continue current dose of levothyroxine. Obtain Thyroid function tests and Tg/Tg Ab fall 2024. The patient was asked to follow up with me in 6 months. Blake Early MD DATE Time Reading 11-20 10:48a 120 07:31a 123 3-12 04:14p 140 11:31a 124 08:44a 111 3-11 5:04p 103 11:24a 149 09:00a 134 3-10 4:28p 112 11:15a 94 08:12a 131 3-9 04:10p 135 11:24a 102 08:04a 112 3-8 05:06p 172 1:52p 151 9:13a 136 3-7 5:17p 160 1:16p 66 8:18a 170 3-6 5:33p 106 10:35a 120 DATE Time Reading 11-12 5:41p 141 8:32a 157 3-4 5:31p 110 12:22p 136 9:14a 170 3-3 5:30p 110 11:48a 127 8:10a 148 3-2 5:26p 117 12:05p 85 8:11a 181 3-1 5:19p 157 12:18p 191 8:53a 133 2-28 5:12p 119 documented in this encounter [facility] 10-29-2024 Instructions Loraine Alejo APRN.[facility] - 10/29/2024 11:10 AM EST ABSCESS (BOIL): You have a skin abscess, or boil. Boils usually develop when Staph bacteria get into the small glands or hair follicles in the skin and form a pus pocket. After an abscess is properly drained, it will most often heal without any problems. You should not squeeze an abscess or boil to drain it; this can cause the infection to spread to other areas under the skin. Boils are contagious, so you should dispose of soiled bandages carefully and not share your towel or wash cloth with others. A boil is lanced to start the draining. Sometimes a loose gauze pack is put in the abscess pocket to promote drainage; this should be removed in 1-3 days. Soak the area in warm water for 20-30 minutes 3-4 times daily to help the healing. Oral antibiotics may be needed if the infection is severe or if it seems to be spreading. Please call your doctor if you have increased pain or swelling, chills or fever, red streaks going up the arm or leg, or continued pus drainage after 3-4 days. documented in this encounter [facility] 10-29-2024 History of Present illness Narrative This note was created using [email or web address]. Subjective Bhakti Kirkpatrick is a 79 year old female. 79 year old female with PMH DM, ASHD, HF, hyperlipidemia, GERD present for female complaints Acute onset one week ago +bump vagina region +red +raised +tender Denies abdominal pain Denies N/V/D Denies skin rash or lesions Denies prior history of same She is currently on PCN, as she has had recent dental work. The history is provided by the patient. No tire groover was used. Female Gu Problem This is a new problem. The current episode started 6 to 7 days ago. The onset was sudden. The problem occurs continuously. The problem has been gradually worsening. The pain is moderate. Nothing relieves the symptoms. The symptoms are aggravated by activity (touching). Pertinent negatives include no chest pain, no anorexia, no chills, no fever, no abdominal pain, no constipation, no diarrhea, no nausea, no vomiting, no dysuria, no frequency, no urgency, no vaginal bleeding, no vaginal discharge, no vaginal pain, no headaches, no sore throat, no back pain, no cough, no shortness of breath and no rash. There has been no history of trauma. Urine output has been normal. The last void occurred Less than 6 hours ago. She is currently Not sexually active. Contraceptives used include nothing. She is not . She has not missed her period. There were no sick contacts. Recently, medical care has been given at another facility. PAST MEDICAL HISTORY Diagnosis Date (HFpEF) heart failure with preserved ejection fraction (HCC) 06/23/2015 Dr. 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) 09/13/2017 Chronic bronchitis (HCC) 02/21/2023 CKD stage 3 due to type 2 diabetes mellitus ([facility]) 02/06/2015 Coronary artery calcification seen on CAT scan 01/21/2013 Depressive disorder 03/31/2016 Diverticulosis 08/23/2010 Diverticulosis of colon (without mention of hemorrhage) Edema GERD without esophagitis 09/02/2019 Hearing loss HTN (hypertension) 08/12/2014 Hypertensive kidney disease with stage 3a chronic kidney disease (HCC) 08/12/2014 Infected prosthetic mesh of abdominal wall ([facility]) 06/30/2020 Ingrown toenail Morbid obesity ([facility]) Obstructive sleep apnea CPAP Other and unspecified hyperlipidemia Other dyspnea and respiratory abnormality Palpitations Primary osteoarthritis of both hips 08/18/2020 Rosacea Symptomatic menopausal or female climacteric states 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 Type II or unspecified type diabetes mellitus without mention of complication, not stated as uncontrolled 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 07/10/2018 Unspecified intestinal obstruction 10/2018 PAST SURGICAL HISTORY Procedure Laterality Date APPENDECTOMY 05/20/2001 open ARTHRP KNE CONDYLE&PLATU MEDIAL&LAT COMPARTMENTS Left 08/18/2014 Knee replacement, total left ARTHRP KNE CONDYLE&PLATU MEDIAL&LAT COMPARTMENTS Right 06/12/2012 total right knee arthroplasty ; THYROIDECTOMY TOTAL OR COMPLETE Bilateral 12/15/2009 Papillary Ca CHOLECYSTECTOMY 05/20/2001 Cholecystectomy-lap COLONOSCOPY FLX DX W/COLLJ SPEC WHEN PFRMD 06/06/2004 COLONOSCOPY FLX DX W/COLLJ SPEC WHEN PFRMD 08/23/2010 EXCISION EXCESSIVE SKIN & SUBQ TISSUE OTHER AREA 01/17/2002 Abdominoplasty EXPLORATORY LAPAROTOMY, CELIOTOMY-SP 06/24/2020 Takedown of enteroprosthetic fistula.Small bowel resection anastosmosis. Removal infected mesh. Recurrent vental hernia repair. HIP ARTHROSCOPY W/SYNOVECTOMY Right 09/19/2021 exc.seroma; gluteus repair; rotium augmentation; trochanteric bursectomy, iliotibial band resection LAPAROCOPIC SLEEVE GASTRECTOMY 03/10/2019 Extensive laparoscopic lysis of adhesions. EGD. Lap. TAP block. LEFT HEART CATH,PERCUTANEOUS 09/13/2017 no significant CAD NEPHRECTOMY PARTIAL Right 03/1991 Right side for benign tumor, small lesion removed REPAIR FIRST ABDOMINAL WALL HERNIA 09/25/2005 7 times total RPR 1ST INCAL/VNT HERNIA INCARCERATED 06/11/2007 with mesh TOTAL ABDOMINAL HYSTERECT W/WO RMVL TUBE OVARY 05/20/2001 PER, for fibroids and BSO TOTAL HIP REPLACEMENT Right 10/20/2020 anterior minimally invasive right total hip ALLERGIES Adhesive Tape (Rosins), Crestor [Rosuvastatin Calcium], Lantus [Insulin Glargine], Nickel, Palladium, Pravastatin, and Toradol [Ketorolac] MEDICATIONS allopurinol (ZYLOPRIM) 300 mg tablet Take 1 tablet by mouth once daily. For gout. cycloSPORINE (RESTASIS) 0.05 % ophthalmic emulsion Use 1 Drop in both eyes two times a day. insulin glargine U-300 conc (TOUJEO SOLOSTAR U-300 INSULIN) 300 unit/mL (1.5 mL) take 24 units twice a day, max daily dose 60 units memantine (NAMENDA) 10 mg tablet Take 1 tablet by mouth two times a day. levothyroxine (SYNTHROID) 175 mcg tablet Take 1 tablet by mouth once daily. colchicine 0.6 mg tablet Take 2 tabs by mouth, followed by 1 tab one hour later for gout flare. May repeat in 1 week. DULoxetine (CYMBALTA) 60 mg capsule Take 1 capsule by mouth once daily. insulin aspart U-100 (NOVOLOG FLEXPEN U-100 INSULIN) 100 unit/mL (3 mL) Inject 14 Units subcutaneously three times a day before meals. 14 in AM, 14 at lunch, 14 at supper, 10 at bed, plus extra based on sugars, max daily dose 100 units plus sliding scale aspirin, enteric coated (ASPIRIN, ENTERIC COATED) 81 mg EC tablet Take 1 tablet by mouth two times a day. blood sugar diagnostic (ACCU-CHEK ANNALISE PLUS TEST STRP) test strip Use to check blood sugar 4 times daily nitroglycerin sublingual (NITROQUICK) 0.4 mg SL tablet Dissolve 1 tablet under the tongue as needed. FOR CHEST PAIN. IF NO RELIEF CALL 911 (Patient taking differently: Dissolve 0.4 mg under the tongue every 5 minutes as needed for chest pain. One tablet every 5 minutes x 3 doses FOR CHEST PAIN. IF NO RELIEF CALL 911) furosemide (LASIX) 40 mg tablet Take 20 mg by mouth once daily. Per Dr. Lilian Vance, nephrology. Insulin [place], Disposable, (BD ULTRAFINE III MINI PEN) 31 gauge x 3/16 1 Each as directed. 6 times daily. Dx:E11.40. On multiple insulin doses. glucagon 3 mg/actuation nasal spray (BAQSIMI) Use 1 [place] in the nose as needed for low blood sugar. May repeat after 15 minutes using a new device if there is no response. evolocumab (REPATHA SURECLICK) 140 mg/mL pen injector Inject 140 mg subcutaneously every 2 weeks. Per [facility]. Lancets (ACCU-CHEK SOFTCLIX LANCETS) lancets Checking blood sugars 4 times daily. Dx: E11.42 BIPAP fluticasone (FLONASE) 50 mcg/actuation nasal spray Use 2 Sprays in each nostril once daily. (Patient taking differently: Use 2 Sprays in each nostril as needed for cold/allergy symptoms.) COMPOUNDED PRESCRIPTION Initiate BiPAP @ 15/9 cm of water with humidification. Mask (per patient preference) optional chin strap (if indicated) , filters, tubing, humidifier and lifetime supplies. Dx. ABDI 327.23 polyethylene glycol 3350(MIRALAX 100 % ORAL POWDER) 17 grams/8 0z water daily (Patient taking differently: 17 grams/8 0z water daily by mouth daily for constipation) doxycycline monohydrate 100 mg tablet Take 1 tablet by mouth two times a day for 7 days. [DISCONTINUED] calcium citrate (CITRACAL ORAL) Take 2 tablets by mouth two times a day. NOT TAKING Patient should start on January 26, 2024. FAMILY HISTORY Problem Relation Age of Onset COPD Mother at 64 yoa Ischemic Heart Disease Father Mi at 61 yoa Hypertension Sister 2 years younger Coronary Artery Disease Sister Stroke Sister Diabetes Sister GI Brother cirrhosis other (AAA rupture) Brother Lung cancer, 49 yoa other (parkinson) Son 41 Diabetes Maternal Aunt Cancer Paternal Aunt Cervical cancer Diabetes Paternal Aunt Heart Paternal Uncle Diabetes Paternal Grandfather Anesthesia Problems No Family History Social History Tobacco Use Smoking status: Former Current packs/day: 0.00 Average packs/day: 2.0 packs/day for 15.0 years (30.0 ttl pk-yrs) Types: Cigarettes Start date: 09/10/1976 Quit date: 09/10/1991 Years since quittin.1 Smokeless tobacco: Never Vaping Use Vaping status: Never Used Substance Use Topics Alcohol use: No Drug use: No Review of Systems Constitutional: Negative for chills and fever. HENT: Negative for sore throat. Eyes: Negative for pain, discharge, redness and itching. Respiratory: Negative for apnea, cough, choking, chest tightness and shortness of breath. Cardiovascular: Negative for chest pain. Gastrointestinal: Negative for abdominal pain, anorexia, constipation, diarrhea, nausea and vomiting. Genitourinary: Negative for dysuria, frequency, urgency, vaginal bleeding, vaginal discharge and vaginal pain. Vaginal bump Musculoskeletal: Negative for arthralgias, back pain and gait problem. Skin: Negative for color change, pallor and rash. Allergic/Immunologic: Negative for environmental allergies, food allergies and immunocompromised state. Neurological: Negative for dizziness, facial asymmetry and headaches. Hematological: Negative for adenopathy. Does not bruise/bleed easily. Psychiatric/Behavioral: Negative for agitation and behavioral problems. Objective BP 128/78 Pulse 105 Temp 37 C (98.6 F) (Tympanic) Resp 18 Wt 83.5 kg (184 lb 1.4 oz) LMP 06/27/2011 SpO2 97% BMI 35.35 kg/m Physical Exam Vitals and nursing note reviewed. Constitutional: General: She is not in acute distress. Appearance: Normal appearance. She is obese. She is not ill-appearing, toxic-appearing or diaphoretic. HENT: Head: Normocephalic and atraumatic. Right Ear: Ear canal and external ear normal. Left Ear: Ear canal and external ear normal. Nose: Nose normal. No congestion or rhinorrhea. Mouth/Throat: Mouth: Mucous membranes are moist. Pharynx: No oropharyngeal exudate or posterior oropharyngeal erythema. Eyes: General: Right eye: No discharge. Left eye: No discharge. Extraocular Movements: Extraocular movements intact. Conjunctiva/sclera: Conjunctivae normal. Pupils: Pupils are equal, round, and reactive to light. Cardiovascular: Rate and Rhythm: Normal rate and regular rhythm. Pulses: Normal pulses. Heart sounds: Normal heart sounds. No murmur heard. No friction rub. Pulmonary: Effort: Pulmonary effort is normal. No respiratory distress. Breath sounds: Normal breath sounds. No stridor. No wheezing, rhonchi or rales. Chest: Chest wall: No tenderness. Abdominal: General: Abdomen is flat. There is no distension. Palpations: Abdomen is soft. There is no mass. Tenderness: There is no abdominal tenderness. There is no right CVA tenderness, left CVA tenderness, guarding or rebound. Hernia: No hernia is present. Genitourinary: Comments: Left labia majora with 1 mm raised and non indurated abscess No crepitus No petechia No drainage No red streaking SENSITIVE EXAMINATION CONSENT: The sensitive examination was discussed with the Patient or Patient's Authorized Rn Unit Manager. As applicable, any other physician, advance practice provider, medical student, or other health professional student that will be observing or involved in the sensitive examination for educational or training purposes was discussed with the Patient or Authorized Rn Unit Manager. The Patient or Authorized Rn Unit Manager has agreed to proceed with the sensitive examination. (Sensitive examination includes inspection and/or palpation of the breasts, pelvis, prostate and anorectal regions) Musculoskeletal: General: No swelling, tenderness, deformity or signs of injury. Normal range of motion. Cervical back: Normal range of motion and neck supple. No rigidity. Right lower leg: No edema. Left lower leg: No edema. Lymphadenopathy: Cervical: No cervical adenopathy. Skin: General: Skin is warm and dry. Coloration: Skin is not jaundiced or pale. Findings: No bruising, erythema, lesion or rash. Neurological: General: No focal deficit present. Mental Status: She is alert and oriented to person, place, and time. Cranial Nerves: No cranial nerve deficit. Sensory: No sensory deficit. Motor: No weakness. Coordination: Coordination normal. Gait: Gait normal. Psychiatric: Mood and Affect: Mood normal. Behavior: Behavior normal. Thought Content: Thought content normal. Judgment: Judgment normal. Assessment and Plan ASSESSMENT/PLAN: 1. Abscess of labia majora - ICD9: 616.4, ICD10: N76.4 X one week Progressively worsening RX Doxcyline Warm compress Discussed red flags F/u with PCP for continued sx Loraine Alejo APRN.[employer] documented in this encounter [facility] 10-27-2024 Telephone encounter Note Patient has been identified by name and date of : Yes Spouse phones for refill(s): Requested Prescriptions Pending Prescriptions Disp Refills allopurinol (ZYLOPRIM) 300 mg tablet 90 tablet 0 Sig: Take 1 tablet by mouth once daily. For gout. Date of last office visit in primary care: 10/06/2024 Date of next office visit in primary care: 04/06/2025 Please advise. Thank you. Christin Thao LPN. [facility] 10-27-2024 Miscellaneous Notes Patient has been identified by name and date of : Yes Spouse phones for refill(s): Requested Prescriptions Pending Prescriptions Disp Refills allopurinol (ZYLOPRIM) 300 mg tablet 90 tablet 0 Sig: Take 1 tablet by mouth once daily. For gout. Date of last office visit in primary care: 10/06/2024 Date of next office visit in primary care: 04/06/2025 Please advise. Thank you. Christin Thao LPN. documented in this encounter [facility] 10-06-2024 History of Present illness Narrative Images from the original note were not included. Bhakti Kirkpatrick is a 79 year old female here for a Medicare wellness visit. Medicare Health Risk Assessment General Health Fair Exercise: Minutes/Day 0 min Exercise: Days/Week 0 days Alcohol: Daily Use Never Alcohol: Drinks/Day Alcohol: 6 or more drinks Never Feel off balance No Concerns: Teeth/Dentures No Concerns: Sexual function No Troubled by feelings None of the above Frequency: Eating healthy diet Nearly every day ADLs requiring help Grocery shopping; Cooking; Housework; Bathing; Dressing; Walking; Using the toilet; Managing urine leakage; Handling finances; Taking medications; Using the telephone Safety precautions in home/vehicle Yes Smoke, vape, chews tobacco No Difficulty hearing Yes, I wear a hearing aid Difficulty seeing Yes Current Providers Specialists: I have reviewed specialist-related care of the patient in the medical record. Medical/Family history review Reviewed and updated problem list, medical/surgical/family/social history, medications, and allergies. Opioid use review Opioid Medications (last 90 days) No data to display Anxiety/Depression screening PHQ-9 Score: 6 (Mild Depression) PURNIMA-7 Score: 0. Recommendation: no further intervention at this time Cognitive screening 0/5 Cognitive screening reviewed and No further action needed (score 3-5). Functional Observation Was the patient's Timed Up & Go test unsteady or >= 12 seconds? No Advance Care Planning Surrogate decision maker and/or advance care plan documented Measurements BP 100/64 Pulse 91 Resp 16 Wt 84.4 kg (186 lb) LMP 06/27/2011 BMI 35.71 kg/m Vision Screening: Follows with optometry/ophthalmology Assessment/Plan Medicare annual wellness visit, subsequent (Z00.00) - Counseled on healthy diet and regular exercise - Fall avoidance information provided - Personalized prevention plan provided documented in this encounter [facility] 09-26-2024 Telephone encounter Note Spouse notified. Mikaela Schmid LPN [facility] 09-26-2024 Miscellaneous Notes Spouse notified. Mikaela Schmid LPN TC , left message for to call back and speak with a triage nurse regarding lab orders being placed. Kim Feng RN I think this was sent to me inadvertantly Inez Hawkins MD Left message to call & speak to nurse. Christin Thao LPN Fasting labs ordered. Do with all other tests ordered by myself and Dr. Best for August 2024. Patient's calls and states that patient has wellness visit with provider on 10/06/2024. asking if lab orders can be placed prior to appointment? Please review and advise, Kim Feng RN documented in this encounter [facility] 09-26-2024 Telephone encounter Note TC , left message for to call back and speak with a triage nurse regarding lab orders being placed. Kim Feng RN [facility] 09-26-2024 Telephone encounter Note I think this was sent to me inadvertantly Inez Hawkins MD [facility] Work Phone: 09-25-2024 Telephone encounter Note Left message to call & speak to nurse. Christin Thao LPN [facility] 09-25-2024 Telephone encounter Note Fasting labs ordered. Do with all other tests ordered by myself and Dr. Best for August 2024. [facility] 09-25-2024 Telephone encounter Note Patient's calls and states that patient has wellness visit with provider on 10/06/2024. asking if lab orders can be placed prior to appointment? Please review and advise, Kim Feng RN [facility] 08-25-2024 Instructions Max Best MD - 08/25/2024 2:06 PM EST Assessment / Plan Problem: 1) Diabetes type 2, sugar control continues to be quite good, best I have seen with her. No change in Rx needed. 2) Surgical hypothyroidism, no labs since dropping levothyroxine 175 mcg from 7.5/wk to one a day, she will check these soon, I'll send comment. 3) Thyroid CA dx 2009, TG undetectable, doing well. 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 María Vance Treatment / Plan: 1) call [phone] or toll free at [phone] to schedule 2) followup with Dr. Early as planned Max Best MD documented in this encounter [facility] 08-25-2024 History of Present illness Narrative Virtual Visit utilizing both audio and video components MyChart-Zoom I have communicated my name and active licensure. The patient's identity and physical location were verified at the time of this visit. Either the patient or their legal patient portal representative has been informed of the risks and benefits of -- and alternatives to -- treatment through a remote evaluation and consents to proceed with the evaluation remotely. Patient location: at home, [facility] Assessment / Plan Problem: 1) Diabetes type 2, sugar control continues to be quite good, best I have seen with her. No change in Rx needed. 2) Surgical hypothyroidism, no labs since dropping levothyroxine 175 mcg from 7.5/wk to one a day, she will check these soon, I'll send comment. 3) Thyroid CA dx 2009, TG undetectable, doing well. 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 María Vance Treatment / Plan: 1) call [phone] or toll free at [phone] to schedule 2) followup with Dr. Early as planned Max Best MD Data Review iPhone=Tynt [phone] Dexcom share code XZPM NXLR DNKG Latest Ref Rng 05/23/2024 Hemoglobin A1C 4.3 - 5.6 % 5.7 (H) Latest Ref Rng 05/23/2024 Thyroglobulin Ab, Serum <4.0 IU/mL <0.9 Thyroglobulin, Serum 1.6 - 50.0 ng/mL <0.1 (L) Free T4 0.9 - 1.7 ng/dL 1.5 TSH 0.270 - 4.200 mIU/L 0.327 History Diabetes type 2, (2003): dx diabetes type 2 last eye exam ?10/2022 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 follows her numb tingling dysesthesias in feet and legs, gets shaky sweaty with hypoglycemia no hx [place], stroke insulin doses currently: Toujeo 24-24, Humalog 15-15-15 + ss no issues of low or high sugars. Bkft Lunch Dinner Snack BG Unit Saad BG Unit BG Unit BG Saad Basal amounts: Bkft 13, Lunch 5, Dinner 13 Novolog 188 13 10 162 5 112 13 100 24 153 13 10 196 7 128 13 129 24 Toujeo AM 10 PM 24 164 13 10 172 5 109 13 235 24 133 13 10 88 4 127 13 109 24 119 13 10 92 4 89 11 74 24 124 15 10 181 6 180 14 262 24 135 13 10 115 5 104 13 125 24 145 144 121 148 Averages Hypothyroidism continues to take 175 mcg ABDI not using her BiPAP, has trouble with phlegm production during the night. 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 Jamey Ibrahim, [facility] Pathology (10/29/09): FNA Atypical cells present in a background of cyst contents, suspicious for papillary thyroid carcinoma (12/15/09): single well-circumscribed nodule in the right inferior lobe, which measured 3.5 cm in greatest dimension. The nodule was extensively hemorrhagic and cystic with a rim of viable material which ranges in appearance from papillary architecture to follicular structures. There is no evidence of a higher grade component. There is no definitive lymphovascular space invasion identified. In some areas, the tumor cells have oncocytic cytoplasm, however, the cells do not meet criteria for tall-cell variant of papillary thyroid carcinoma. Scan (02/24/10): post-Rx 131-Iodine scan, [facility] (02/16/10): Rx 102.4 mCi 131-Iodine Thyroglobulin Component Thyroglobulin TG Antibody Screen Latest Ref Rng & Units 0.8 - 49.0 ng/mL <14.4 IU/mL 11/05/2009 75.7 (H) 1.0 01/18/2010 <0.2 (L) 1.1 02/16/2010 0.3 (L) 1.0 07/05/2010 <0.2 (L) 1.3 12/27/2010 <0.2 (L) 1.3 05/08/2011 <0.2 (L) 1.1 07/24/2011 <0.2 (L) 1.5 01/23/2012 <0.2 (L) 1.0 07/27/2012 <0.2 (L) <1.0 02/18/2013 <0.2 (L) <1.0 08/12/2013 <0.2 (L) <1.0 02/16/2014 <0.2 (L) <1.0 09/24/2014 <0.2 (L) <1.0 03/08/2015 <0.2 (L) 1.3 12/10/2015 <0.2 (L) <1.0 05/25/2016 <0.2 (L) <1.0 11/15/2016 <0.2 (L) 1.3 Vitamin D Component Vitamin D 25 Hydroxy Latest Ref Rng 31.0 - 80.0 ng/mL 01/18/2010 39.7 01/17/2011 48.1 07/24/2011 50.6 01/23/2012 40.2 02/18/2013 43.0 08/12/2013 40.0 02/16/2014 39.5 09/24/2014 36.0 Ultrasound (01/18/10): no suspicious adenopathy along great vessels or in lateral neck on either side. No masses in thyroid bed. (11/11/15): no suspicious adenopathy along great vessels or in lateral neck on either side. No masses in thyroid bed. (11/28/16): no suspicious adenopathy along great vessels or in lateral neck on either side. No masses in thyroid bed. ROS PHYSICAL EXAM PAST MED / SURG / FAMILY / SOCIAL HISTORY PAST MEDICAL HISTORY Diagnosis Date (HFpEF) heart failure with preserved ejection fraction (HCC) 06/23/2015 Dr. 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) 09/13/2017 Chronic bronchitis (HCC) 02/21/2023 CKD stage 3 due to type 2 diabetes mellitus (HCC) 02/06/2015 Coronary artery calcification seen on CAT scan 01/21/2013 Depressive disorder 03/31/2016 Diverticulosis 08/23/2010 Diverticulosis of colon (without mention of hemorrhage) Edema GERD without esophagitis 09/02/2019 Hearing loss HTN (hypertension) 08/12/2014 Hypertensive kidney disease with stage 3a chronic kidney disease (HCC) 08/12/2014 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) 06/30/2020 Ingrown toenail Morbid obesity (HCC) Obstructive sleep apnea CPAP Other and unspecified hyperlipidemia Other dyspnea and respiratory abnormality Palpitations Primary osteoarthritis of both hips 08/18/2020 Rosacea Symptomatic menopausal or female climacteric states 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 Type II or unspecified type diabetes mellitus without mention of complication, not stated as uncontrolled 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 07/10/2018 Unspecified intestinal obstruction 10/2018 PAST SURGICAL HISTORY Procedure Laterality Date APPENDECTOMY 05/20/2001 open ARTHRP KNE CONDYLE&PLATU MEDIAL&LAT COMPARTMENTS Left 08/18/2014 Knee replacement, total left ARTHRP KNE CONDYLE&PLATU MEDIAL&LAT COMPARTMENTS Right 06/12/2012 total right knee arthroplasty ; THYROIDECTOMY TOTAL OR COMPLETE Bilateral 12/15/2009 Papillary Ca CHOLECYSTECTOMY 05/20/2001 Cholecystectomy-lap COLONOSCOPY FLX DX W/COLLJ SPEC WHEN PFRMD 06/06/2004 COLONOSCOPY FLX DX W/COLLJ SPEC WHEN PFRMD 08/23/2010 EXCISION EXCESSIVE SKIN & SUBQ TISSUE OTHER AREA 01/17/2002 Abdominoplasty EXPLORATORY LAPAROTOMY, CELIOTOMY-SP 06/24/2020 Takedown of enteroprosthetic fistula.Small bowel resection anastosmosis. Removal infected mesh. Recurrent vental hernia repair. HIP ARTHROSCOPY W/SYNOVECTOMY Right 09/19/2021 exc.seroma; gluteus repair; rotium augmentation; trochanteric bursectomy, iliotibial band resection LAPAROCOPIC SLEEVE GASTRECTOMY 03/10/2019 Extensive laparoscopic lysis of adhesions. EGD. Lap. TAP block. LEFT HEART CATH,PERCUTANEOUS 09/13/2017 no significant CAD NEPHRECTOMY PARTIAL Right 03/1991 Right side for benign tumor, small lesion removed REPAIR FIRST ABDOMINAL WALL HERNIA 09/25/2005 7 times total RPR 1ST INCAL/VNT HERNIA INCARCERATED 06/11/2007 with mesh TOTAL ABDOMINAL HYSTERECT W/WO RMVL TUBE OVARY 05/20/2001 PER, for fibroids and BSO TOTAL HIP REPLACEMENT Right 10/20/2020 anterior minimally invasive right total hip FAMILY HISTORY Problem Relation Age of Onset COPD Mother at 64 yoa Ischemic Heart Disease Father Mi at 61 yoa Hypertension Sister 2 years younger Coronary Artery Disease Sister Stroke Sister Diabetes Sister GI Brother cirrhosis other (AAA rupture) Brother Lung cancer, 49 yoa other (parkinson) Son 41 Diabetes Maternal Aunt Cancer Paternal Aunt Cervical cancer Diabetes Paternal Aunt Heart Paternal Uncle Diabetes Paternal Grandfather Anesthesia Problems No Family History Social History Tobacco Use Smoking status: Former Current packs/day: 0.00 Average packs/day: 2.0 packs/day for 15.0 years (30.0 ttl pk-yrs) Types: Cigarettes Start date: 09/10/1976 Quit date: 09/10/1991 Years since quittin.9 Smokeless tobacco: Never Vaping Use Vaping status: Never Used Substance Use Topics Alcohol use: No Drug use: No MEDICATIONS & ALLERGIES Prior to Admission Medications: Current Outpatient Prescriptions on File Prior to Visit: HYDROcodone-Acetaminophen (NORCO) 10-325 mg per tablet Take 1 tablet by mouth every 6 hours as needed for Pain. fluticasone (FLONASE) 50 mcg/actuation nasal spray Use 2 Sprays in each nostril once daily. codeine-guaiFENesin (ROBITUSSIN AC) 10-100 mg/5 mL syrup Take 5-10 mL by mouth four times daily as needed for Cough. May cause drowsiness. furosemide (LASIX) 20 mg tablet Take 1 tablet by mouth twice daily. LORazepam (ATIVAN) 0.5 mg tab Take 1 tablet by mouth twice daily as needed. gabapentin (NEURONTIN) 300 mg capsule 2 AT HS AND ONE IN AM potassium chloride (K-TAB) 10 mEq tablet Take 1 tablet by mouth once daily. nitroglycerin sublingual (NITROQUICK) 0.4 mg SL tablet Dissolve 1 tablet under the tongue as needed. FOR CHEST PAIN. IF NO RELIEF CALL 911 Insulin Lispro, Human, (HUMALOG KWIKPEN) 100 unit/mL inpn 1-9 units before mealtime and at bedtime, according to sliding scale Insulin Wales, Disposable, (TIFFANIE PEN NEEDLE) 32 x 5/32 ndle use 4 times a day with Humalog pen blood sugar diagnostic (ACCU-CHEK SMARTVIEW TEST STRIP) test strip Use as instructed to test blood glucose 4 times daily (sugars currently uncontrolled, CKD stage 3) glimepiride (AMARYL) 2 mg tablet 1 pill in morning, and 1/2 pill at supper Lancets lancets Testing twice a day. DX:250.00 SYNTHROID 175 mcg tablet Take 1 tablet by mouth once daily. Take 8 tablets per week metFORMIN (GLUCOPHAGE) 500 mg tablet Take by mouth. take 2 in the morning, 1 at supper, 1 at bedtime lisinopril 2.5 mg tablet Take 1 tablet by mouth once daily. liraglutide (VICTOZA 3-DEVIN) 0.6 mg/0.1 mL (18 mg/3 mL) pnij Inject 1.8 mg subcutaneously once daily. metoprolol tartrate, short acting, (LOPRESSOR) 25 mg tablet Take 1 tablet by mouth twice daily. blood sugar diagnostic (CONTOUR TEST STRIPS) test strip Test blood sugar(s) 4 times daily. Dx: 250.0. Insulin: No niacin 500 mg CR capsule Take 1 capsule by mouth twice daily. ealuk-8p-klb-epa-fish oil-D3 360 mg-1,200 mg -1,000 unit cap Take by mouth three times daily. Insulin Wales, Disposable, (PEN NEEDLE) 29 x 1/2 ndle Use 1 time daily with injectable pen glimepiride (AMARYL) 1 mg tablet Take 1 tablet by mouth once daily. As directed (Patient taking differently: Take 2 mg by mouth once daily. As directed) COMPOUNDED PRESCRIPTION Initiate BiPAP @ 15/9 cm of water with humidification. Mask (per patient preference) optional chin strap (if indicated) , filters, tubing, humidifier and lifetime supplies. Dx. ABDI 327.23 diphenhydrAMINE (BENADRYL ALLERGY) 25 mg tablet Take 1 tablet by mouth every 6 hours as needed for Itching/Rash. COMPOUNDED PRESCRIPTION Pen Needle BD Ultra Fine 29 g 12.7 mm Twice a day as directed 250.00 insulin needles, DISPOSABLE, (PEN NEEDLE) 31 X 5/16 Ndle use as directed twice daily Omeprazole Magnesium (PRILOSEC) 10 mg SuDR Take by mouth as needed. Cholecalciferol, Vitamin D3, 1,000 unit ORAL Tab Take by mouth once daily. metroNIDAZOLE (METROGEL) 1 % TOPICAL gel Apply to affected area once daily. blood sugar diagnostic (ASCENSIA MICROFILL) Misc test strip Check before and after each meal and at hs polyethylene glycol 3350(MIRALAX 100 % ORAL POWDER) 17 grams/8 0z water daily ASA LOW DOSE 81MG TAB EC Take one(1) tablet daily. No current facility-administered medications on file prior to visit. ALLERGIES Allergen Reactions Adhesive Tape (Jamila* Other: See Comments Contact celluitis Crestor [Rosuvastat* Intolerance Lantus [Insulin Gla* Intolerance burning at local injection site Nickel Rash in jewelry; also Palladium which cross reacts with nickel in some cases. Palladium Rash Pravastatin Intolerance Muscle cramps Toradol [Ketorolac] Hives documented in this encounter [facility] 08-15-2024 History of Present illness Narrative CDM Telephonic Outreach Provider Action/FYI Outreach Summary: No CDM concerns. Wt 183 lbs Contacted for: Routine Telephonic Outreach Contact made with patient: Yes Patient identified by name and date of . Discussed care with patient Are you experiencing any new or worsening symptoms you need to talk about today? No Disease Specific Do you check your blood pressure at home? No Do you have new or worsening shortness of breath with activity? No Do you have new or worsening trouble breathing while lying flat? No Do you have new or worsening swelling of legs, feet or ankles? No Do you feel like you are dehydrated for any reason, including not being able to eat or drink normally, or having less urine/much darker urine than normal for you? No Do you check your daily weight at home? Yes, Have you noticed a sudden gain in weight greater than three pounds in a day or three pounds in a week? No Based on manager of selection and assessment, the following disposition is advised: No symptoms or symptoms present, not severe. 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 He said any MD in August or September. I booked the patient with Dr. Lantigua for September for her annual wellness exam. Spouse states that she is scheduled for her eye exam with her eye doctor on 08/28/2024. Order entered for UACR to be done before appointment and informed patient's . Topic Due (Y or N) Comments Medicare Wellness Y 2023 and 2024 PCP Follow up N Mammogram N Colorectal Cancer Screening N A1C N Controlling BP N Dilated Retinal Exam (LOLY) Y KED (UACR and eGFR) Y HCC Y Flu Vaccine N Reason for Outreach Care Gap/HCC or Scheduling Wellness Visits Care Gaps due: Medicare Annual Wellness Visit Diabetic Eye Exam KED Patient Contacted: Spoke to patient/parent/or legal guardian Patient identified by name and : Yes Care Gap/HCC/Scheduling Wellness actions taken: Patient scheduled/pended orders: Medicare Annual Wellness Visit KED 08/25/2024 in [facility] with MAX BEST - follow up 10/06/2024 in [facility] with INEZ LANTIGUA - Annual Wellness Exam, address and close HCC gaps 11/20/2024 in [facility] with BLAKE EARLY - NEW DM/THYROID * dr best patient, RS from 11/13/24 02/23/2025 in [facility] with AKILAH PENA JR - 7 month follow up, needs 60 min HCC related Navigation Signature: Tia Black MA August 14, 2024 1:19 PM documented in this encounter [facility] 08-05-2024 History of Present illness Narrative [facility] Telephonic Outreach Provider Action/FYI Contacted for: Routine Telephonic Outreach Contact made with patient: No, left message. Catherine Pompa RN August 05, 2024 3:03 PM [facility] Telephonic Outreach Provider Action/FYI Contacted for: Routine Telephonic Outreach Contact made with patient: No, left message. Catherine Pompa RN August 05, 2024 12:47 PM documented in this encounter [facility] 08-01-2024 Telephone encounter Note Prescription Refill Information The patient has been identified by name and date of : Yes Caregiver verified no other encounters exist for this prescription request: Yes Caregiver confirmed with patient/requestor that no other refills are due, in the near future, with this provider at this time: Yes The last office visit in the department: 09/2023 Does the patient have a future office visit with this provider/department: No - [facility] Requested Prescriptions Pending Prescriptions Disp Refills allopurinol (ZYLOPRIM) 300 mg tablet 90 tablet 1 Sig: Take 1 tablet by mouth once daily. For gout. Godfrey Ni MA August 01, 2024 8:40 AM [facility] 08-01-2024 Miscellaneous Notes Prescription Refill Information The patient has been identified by name and date of : Yes Caregiver verified no other encounters exist for this prescription request: Yes Caregiver confirmed with patient/requestor that no other refills are due, in the near future, with this provider at this time: Yes The last office visit in the department: 09/2023 Does the patient have a future office visit with this provider/department: No - notified via [facility] need for wellness exam Requested Prescriptions Pending Prescriptions Disp Refills allopurinol (ZYLOPRIM) 300 mg tablet 90 tablet 1 Sig: Take 1 tablet by mouth once daily. For gout. Godfrey Ni MA August 01, 2024 8:40 AM documented in this encounter [facility] 07-30-2024 Telephone encounter Note Signed shoe forms faxed to [phone]. Pascale Lamb RN [facility] 07-30-2024 Miscellaneous Notes Signed shoe forms faxed to [phone]. Pascale Lamb RN Statement of certifying physician for therapeutic shoe form placed in providers signature folder. Pascale Lamb RN documented in this encounter [facility] 07-30-2024 Telephone encounter Note Statement of certifying physician for therapeutic shoe form placed in providers signature folder. Pascale E Adonis, RN [facility] 07-28-2024 Telephone encounter Note Spoke with spouse and information listed below given. Pt gave permission to speak with spouse. This has been typed in. Mikaela Schmid LPN [facility] 07-28-2024 Miscellaneous Notes Spoke with spouse and information listed below given. Pt gave permission to speak with spouse. This has been typed in. Mikaela Schmid LPN Patient was seen in office Wednesday 07/25. Requested compliance report from [facility] [place] and received fax back that patient needs to take SD card from CPAP in to [facility] [place] for data to be pulled. TC to patient and , Edward, answered. Patient currently not available and Edward not listed to receive medical information. He will have pt call back when available. BRITTNEY Turner documented in this encounter [facility] 07-28-2024 Telephone encounter Note Patient was seen in office Wednesday 07/25. Requested compliance report from [facility] [place] and received fax back that patient needs to take SD card from CPAP in to [facility] [place] for data to be pulled. TC to patient and , Edward, answered. Patient currently not available and Edward not listed to receive medical information. He will have pt call back when available. BRITTNEY Turner [facility] 07-25-2024 History of Present illness Narrative ESTABLISHED PATIENT VISIT CHIEF COMPLAINT: Follow Up HISTORY OF PRESENT ILLNESS: Bhakti Kirkpatrick is a 79 year old female, BMI 35.14 kg/m2 with a PMH significant for and per last office visit with Hyacinth GREENE on 03/18/24: 1. Dyspnea on exertion - ICD9: 786.09, ICD10: R06.09 (primary diagnosis) 2. Bilateral lower extremity edema - ICD9: 782.3, ICD10: R60.0 Edema has significantly improved, echocardiogram is stable from previous and ultrasound of the lower extremities was negative for any acute DVT. Has been on primary care and is compliant with her Lasix with improvement of her edema. No new concerns with this. 3. ABDI on CPAP - ICD9: 327.23, ICD10: G47.33 Has difficulty with compliance, notes that she has a lot of congestion at night which makes wearing her CPAP difficult. Is compliant about once a month. Discussed risks of untreated sleep apnea. 4. Dementia without behavioral disturbance, psychotic disturbance, mood disturbance, or anxiety, unspecified dementia severity, unspecified dementia type (HCC) - ICD9: 294.20, ICD10: F03.90 Overall patient and family feel memory is stable at this time with some minimal decrease in word recall. Discussed conservative therapies to deal with this at length with patient and family. Patient is compliant with her Namenda 10 mg twice daily, did not tolerate Aricept in the past. Discussed possible referral to brain health for further treatments and evaluation the patient and family deferring at this time. Patient easily tearful and MoCA was deferred. Encouraged conservative therapy including increasing physical activity, cognitive activity and socialization. Patient's sleep is relatively stable, occasionally will have some nights where she has difficulty sleeping but no sundowning or wandering at night. No significant behavioral changes. lives with patient and is able to help with ADLs. Patient does not think doing bad. Has the slips and suff every now and then. Patient with limited history. States cooking, but per , she does no cooking. Needs help getting dressed. Patient very poor and unreliable historian. No hallucinations. No inappropriate behaviors per significant other. Did have a fall in 05/2024. Patient has wraps on legs that she thinks are due to injury from fall but confirmed they are on due to swelling. Now wearing a life alert type whistle around neck - pt remembers to put it on daily per family. Now having more word finding difficulties. Appetite increased. 20 pound weight loss through year, but has leveled off the last 2 months. No hallucinations. Family sets up meds. No wandering out of house. Does not drive. Family does not need further help at home. Not sundowning. Sleeping well at night. Not wearing PAP and has not since 2 weeks after I last saw her. Leg swelling improving. No reports of difficulties breathing. REVIEW OF SYSTEMS GENERAL:No weight loss, malaise or fevers. HEENT:Negative for frequent or significant headaches, No changes in hearing or vision, no nose bleeds or other nasal problems NECK:Negative for lumps, goiter, pain and significant neck swelling RESPIRATORY: Negative for cough, wheezing or shortness of breath. CARDIOVASCULAR: Negative for chest pain, leg swelling or palpitations. GASTROINTESTINAL: Negative for abdominal discomfort, blood in stools or black stools or change in bowel habits GENITOURINARY: No history of dysuria, frequency or incontinence MUSCULOSKELETAL: Negative for joint pain or swelling, back pain or muscle pain. NEUROLOGIC:Negative for focal numbness or weakness, headaches and dizziness or syncope, vision changes, speech/languag changes - EXCEPT that as per HPI above. SKIN:Negative for lesions, rash, and itching. LAB/IMAGING: Those performed since patient's last visit have been reviewed. WBC (k/uL) Date Value 01/24/2024 7.12 RBC (m/uL) Date Value 01/24/2024 2.56 (L) Hemoglobin (g/dL) Date Value 01/24/2024 8.1 (L) Hematocrit (%) Date Value 01/24/2024 24.6 (L) MCV (fL) Date Value 01/24/2024 96.1 MCH (pg) Date Value 01/24/2024 31.6 MCHC (g/dL) Date Value 01/24/2024 32.9 RDW-CV (%) Date Value 01/24/2024 14.6 Platelet Count (k/uL) Date Value 01/24/2024 109 (L) MPV (fL) Date Value 01/24/2024 10.4 Glucose (mg/dL) Date Value 01/24/2024 150 (H) BUN (mg/dL) Date Value 01/24/2024 22 (H) Creatinine (mg/dL) Date Value 01/24/2024 1.07 (H) Sodium (mmol/L) Date Value 01/24/2024 139 Potassium (mmol/L) Date Value 01/24/2024 3.8 Chloride (mmol/L) Date Value 01/24/2024 104 CO2 (mmol/L) Date Value 01/24/2024 27 Protein, Total (g/dL) Date Value 01/22/2024 5.5 (L) Albumin (g/dL) Date Value 01/22/2024 3.6 (L) Calcium, Total (mg/dL) Date Value 01/24/2024 8.7 Alkaline Phosphatase (U/L) Date Value 01/22/2024 62 Bilirubin, Total (mg/dL) Date Value 01/22/2024 0.3 AST (U/L) Date Value 01/22/2024 36 (H) ALT (U/L) Date Value 01/22/2024 16 MEKA (no units) Date Value 03/10/2016 Negative Rheumatoid Factor (IU/mL) Date Value 03/10/2016 <10 Hep C Antibody IA (no units) Date Value 12/10/2015 Negative MEDICATIONS: levothyroxine (SYNTHROID) 175 mcg tablet Take 1 tablet by mouth once daily. colchicine 0.6 mg tablet Take 2 tabs by mouth, followed by 1 tab one hour later for gout flare. May repeat in 1 week. DULoxetine (CYMBALTA) 60 mg capsule Take 1 capsule by mouth once daily. insulin aspart U-100 (NOVOLOG FLEXPEN U-100 INSULIN) 100 unit/mL (3 mL) Inject 14 Units subcutaneously three times a day before meals. 14 in AM, 14 at lunch, 14 at supper, 10 at bed, plus extra based on sugars, max daily dose 100 units plus sliding scale allopurinol (ZYLOPRIM) 300 mg tablet Take 1 tablet by mouth once daily. For gout. ascorbic acid, vitamin C, (VITAMIN C) 500 mg tablet Take 1 tablet by mouth once daily for 21 days. aspirin, enteric coated (ASPIRIN, ENTERIC COATED) 81 mg EC tablet Take 1 tablet by mouth two times a day. blood sugar diagnostic (ACCU-CHEK ANNALISE PLUS TEST STRP) test strip Use to check blood sugar 4 times daily nitroglycerin sublingual (NITROQUICK) 0.4 mg SL tablet Dissolve 1 tablet under the tongue as needed. FOR CHEST PAIN. IF NO RELIEF CALL 911 (Patient taking differently: Dissolve 0.4 mg under the tongue every 5 minutes as needed for chest pain. One tablet every 5 minutes x 3 doses FOR CHEST PAIN. IF NO RELIEF CALL 911) insulin glargine U-300 conc (TOUJEO SOLOSTAR U-300 INSULIN) 300 unit/mL (1.5 mL) take 24 units twice a day, max daily dose 60 units (Patient taking differently: Inject 24 Units subcutaneously two times a day. take 24 units twice a day, max daily dose 60 units) memantine (NAMENDA) 10 mg tablet Take 1 tablet by mouth two times a day. furosemide (LASIX) 40 mg tablet Take 40 mg by mouth once daily. Per Dr. Lilian Vance, nephrology. Insulin Wales, Disposable, (BD ULTRAFINE III MINI PEN) 31 gauge x 3/16 1 Each as directed. 6 times daily. Dx:E11.40. On multiple insulin doses. glucagon 3 mg/actuation nasal spray (BAQSIMI) Use 1 [place] in the nose as needed for low blood sugar. May repeat after 15 minutes using a new device if there is no response. evolocumab (REPATHA SURECLICK) 140 mg/mL pen injector Inject 140 mg subcutaneously every 2 weeks. Per [facility]. Lancets (ACCU-CHEK SOFTCLIX LANCETS) lancets Checking blood sugars 4 times daily. Dx: E11.42 CPAP Auto bilevel with humidity set as follows: IPAP max 24, EPAP min 8 and PS 4-6 cmH2O. Comfort settings TiMax 2.0, TiMin 0.3, Trigger -M, Cycle-M. Continue using ResMed N20 nasal mask interface. BIPAP multivit-min/iron/folic acid/K (BARIATRIC MULTIVITAMINS ORAL) Take 1 capsule by mouth once daily. Patient should start on January 28, 2024. fluticasone (FLONASE) 50 mcg/actuation nasal spray Use 2 Sprays in each nostril once daily. (Patient taking differently: Use 2 Sprays in each nostril as needed for cold/allergy symptoms.) COMPOUNDED PRESCRIPTION Initiate BiPAP @ 15/9 cm of water with humidification. Mask (per patient preference) optional chin strap (if indicated) , filters, tubing, humidifier and lifetime supplies. Dx. ABDI 327.23 polyethylene glycol 3350(MIRALAX 100 % ORAL POWDER) 17 grams/8 0z water daily (Patient taking differently: 17 grams/8 0z water daily by mouth daily for constipation) insulin lispro (HUMALOG KWIKPEN INSULIN) 200 unit/mL (3 mL) injection INJECT UP TO 165 UNITS SUBCUTANEOUSLY DAILY. lidocaine (LIDODERM) 5 % Apply 1 Patch as directed every 12 hours. Remove old patch prior to placing new patch. Location: arms, left rib. 12 hours on, 12 hours off. Blood-Glucose Transmitter (DEXCOM G6 TRANSMITTER) claudia change every 3 weeks ferrous sulfate 325 mg (65 mg iron) tablet Take 325 mg by mouth twice daily with meals. [DISCONTINUED] calcium citrate (CITRACAL ORAL) Take 2 tablets by mouth two times a day. NOT TAKING Patient should start on January 26, 2024. HISTORIES PAST MEDICAL HISTORY Diagnosis Date (HFpEF) heart failure with preserved ejection fraction (HCC) 06/23/2015 Dr. 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) 09/13/2017 Chronic bronchitis (HCC) 02/21/2023 CKD stage 3 due to type 2 diabetes mellitus ([facility]) 02/06/2015 Coronary artery calcification seen on CAT scan 01/21/2013 Depressive disorder 03/31/2016 Diverticulosis 08/23/2010 Diverticulosis of colon (without mention of hemorrhage) Edema GERD without esophagitis 09/02/2019 Hearing loss HTN (hypertension) 08/12/2014 Hypertensive kidney disease with stage 3a chronic kidney disease (HCC) 08/12/2014 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) 06/30/2020 Ingrown toenail Morbid obesity (HCC) Obstructive sleep apnea CPAP Other and unspecified hyperlipidemia Other dyspnea and respiratory abnormality Palpitations Primary osteoarthritis of both hips 08/18/2020 Rosacea Symptomatic menopausal or female climacteric states 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 Type II or unspecified type diabetes mellitus without mention of complication, not stated as uncontrolled 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 07/10/2018 Unspecified intestinal obstruction 10/2018 FAMILY HISTORY Problem Relation Age of Onset COPD Mother at 64 yoa Ischemic Heart Disease Father Mi at 61 yoa Hypertension Sister 2 years younger Coronary Artery Disease Sister Stroke Sister Diabetes Sister GI Brother cirrhosis other (AAA rupture) Brother Lung cancer, 49 yoa other (parkinson) Son 41 Diabetes Maternal Aunt Cancer Paternal Aunt Cervical cancer Diabetes Paternal Aunt Heart Paternal Uncle Diabetes Paternal Grandfather Anesthesia Problems No Family History SOCIAL HISTORY Social History Tobacco Use Smoking status: Former Current packs/day: 0.00 Average packs/day: 2.0 packs/day for 15.0 years (30.0 ttl pk-yrs) Types: Cigarettes Start date: 09/10/1976 Quit date: 09/10/1991 Years since quittin.8 Smokeless tobacco: Never Vaping Use Vaping status: Never Used Substance Use Topics Alcohol use: No Drug use: No PHYSICAL EXAMINATION BP 109/72 (BP Site: Left Arm, BP Position: Sitting) Pulse 85 Wt 83 kg (183 lb) LMP 06/27/2011 SpO2 98% BMI 35.14 kg/m GENERAL EXAM: General appearance: NAD, pleasant. HEENT: NC/AT, nasal congestion absent, no oral lesions, membranes moist. NECK: ROM nml. Lungs: CTA bilaterally. CV: RRR nl S1, S2 Extr: ++ edema L>R lower ext. NEUROLOGICAL EXAM: General: Awake, alert,fluent, no dysarthria. CN: PERRL, EOMI and without nystagmus, VFF to confrontation, facial sensation and strength are normal and symmetric, hearing is intact to finger rub bilaterally, palate and tongue movements are intact and symmetric. SCM and trapezius strength normal. Motor: Normal tone, bulk and strength (5/5) bilaterally (throughout extremities x4). Coordination: FNF, COREY, HTS intact. No tremors. Sensation: LT, vibration intact throughout. No evidence of neglect. Assessment and Plan: ASSESSMENT/PLAN: 1. Dementia without behavioral disturbance, psychotic disturbance, mood disturbance, or anxiety, unspecified dementia severity, unspecified dementia type (HCC) - ICD9: 294.20, ICD10: F03.90 (primary diagnosis) Overall no change in cognitive status per family. Pt with poor understanding of condition and poor historian. She declines MOCA testing -- tearful during MOCA las visit. Prior SEs on Aricept. Will continue Namenda 10mg BID. Encouraged brain exercises. D/w family (sig other) whether need for more help at home but declines at this time. Advised to contact us immediately if noted decline in condition including hallucinations or behavioral changes. Explained may need to use meds like Seroquel if such symptoms present. Encouraged pt to keep regular sleep-wake cycle (circadian). Brain exercises if possible. 2. ABDI on CPAP - ICD9: 327.23, ICD10: G47.33 Pt not using PAP again. Discussed with patient: the physiology of OSAS, medical conditions associated with OSAS (DM, HTN, CAD, Depression, Stroke, Headache...). They will try to use again. Noted increase in Cr and decreases in Hgb on labs. They indicate PCP aware. Akilah Pena MD I spent a total of 30+ minutes on the date of the service which included preparing to see the patient, [id number] patient care, completing clinical documentation, obtaining and/or reviewing separately obtained history, performing a medically appropriate examination, counseling and educating the patient/family/caregiver, ordering medications, tests, or procedures, and communicating with other HCPs (not separately reported). documented in this encounter [facility] 07-17-2024 Telephone encounter Note Fax rec'd from Dr. Zarate's office for pcp to complete their form and have updated office notes sent to them for diabetic shoes. Pcp says pt was last seen 09/2023. She needs an annual wellness visit with he or ALLERGY SPECIALIST Jamee. Called pt to review and she will check with Dr. Kaminski's office. She say her shoe should be arriving in a couple weeks. [facility] 07-17-2024 Miscellaneous Notes Fax rec'd from Dr. Zarate's office for pcp to complete their form and have updated office notes sent to them for diabetic shoes. Pcp says pt was last seen 09/2023. She needs an annual wellness visit with he or ALLERGY SPECIALIST Jamee. Called pt to review and she will check with Dr. Kaminski's office. She say her shoe should be arriving in a couple weeks. documented in this encounter [facility] 07-10-2024 History of Present illness Narrative [facility] NAVIGATION OUTREACH Action/FYI Spoke to patient regarding Annual Medicare Wellness and patient declined scheduling. Reason for Outreach Care Gap/HCC or Scheduling Wellness Visits Care Gaps due: Medicare Annual Wellness Visit Patient Contacted: Spoke to patient/parent/or legal guardian Patient identified by name and : Yes Care Gap/HCC/Scheduling Wellness actions taken: Patient declined: Patient will contact office directly to schedule Navigation Signature: Tia Black MA July 10, 2024 5:23 PM documented in this encounter [facility] 07-07-2024 History of Present illness Narrative [facility] Telephonic Outreach Provider Action/FYI Outreach Summary: ED- rectal/abd pain- Increase Miralax and Colace to BID Contacted for: Routine Telephonic Outreach Contact made with patient: No, left message. Pt at an appt Catherine Pompa RN July 07, 2024 2:57 PM documented in this encounter [facility] 06-15-2024 History of Present illness Narrative [facility] Telephonic Outreach Provider Action/FYI Contacted for: Routine Telephonic Outreach Contact made with patient: No, left message. Catherine Pompa RN June 15, 2024 4:00 PM documented in this encounter [facility] 06-10-2024 Telephone encounter Note Patient notified via Archivas to schedule office visit. [facility] 06-10-2024 Miscellaneous Notes Patient notified via Archivas to schedule office visit. Patient overdue for medicare wellness/follow-up Jamee Weinstein APRN.CNP Prescription Refill Information The patient has been identified by name and date of : Yes Caregiver verified no other encounters exist for this prescription request: Yes Caregiver confirmed with patient/requestor that no other refills are due, in the near future, with this provider at this time: Yes The last office visit in the department: 10/03/23 Does the patient have a future office visit with this provider/department: No, my chart message sent to patient to call for an appointment or my chart Requested Prescriptions Pending Prescriptions Disp Refills colchicine 0.6 mg tablet 6 tablet 1 Sig: Take 2 tabs by mouth, followed by 1 tab one hour later for gout flare. May repeat in 1 week. DULoxetine (CYMBALTA) 60 mg capsule 90 capsule 1 Sig: Take 1 capsule by mouth once daily. Ana Lilia Fernandez LPN June 09, 2024 4:25 PM documented in this encounter [facility] 06-09-2024 Telephone encounter Note Patient overdue for medicare wellness/follow-up Jamee Weinstein APRN.CNP [facility] 06-09-2024 Telephone encounter Note Prescription Refill Information The patient has been identified by name and date of : Yes Caregiver verified no other encounters exist for this prescription request: Yes Caregiver confirmed with patient/requestor that no other refills are due, in the near future, with this provider at this time: Yes The last office visit in the department: 10/03/23 Does the patient have a future office visit with this provider/department: No, my chart message sent to patient to call for an appointment or my chart Requested Prescriptions Pending Prescriptions Disp Refills colchicine 0.6 mg tablet 6 tablet 1 Sig: Take 2 tabs by mouth, followed by 1 tab one hour later for gout flare. May repeat in 1 week. DULoxetine (CYMBALTA) 60 mg capsule 90 capsule 1 Sig: Take 1 capsule by mouth once daily. Ana Lilia Fernandez LPN June 09, 2024 4:25 PM [facility] 06-09-2024 Telephone encounter Note Requester: Patient Patients last Endocrinology visit occurred May 2024. Follow-up evaluation has been established Aug 2024. Requested Prescriptions Pending Prescriptions Disp Refills levothyroxine (SYNTHROID) 175 mcg tablet 90 tablet 3 Sig: Take 1 tablet by mouth once daily. If patient is due for an appointment please route to provider for refill consideration and also to the endo scheduling pool. PSS NOTE: Patient needs scheduled appointment No Pascale Lamb RN June 09, 2024 1:43 PM [facility] 06-09-2024 Miscellaneous Notes Requester: Patient Patients last Endocrinology visit occurred May 2024. Follow-up evaluation has been established Aug 2024. Requested Prescriptions Pending Prescriptions Disp Refills levothyroxine (SYNTHROID) 175 mcg tablet 90 tablet 3 Sig: Take 1 tablet by mouth once daily. If patient is due for an appointment please route to provider for refill consideration and also to the endo scheduling pool. PSS NOTE: Patient needs scheduled appointment No Pascale Lamb RN June 09, 2024 1:43 PM documented in this encounter [facility] 06-02-2024 History of Present illness Narrative [facility] Telephonic Outreach Provider Action/FYI Contacted for: Routine Telephonic Outreach Contact made with patient: No, left message. Catherine Pompa RN June 02, 2024 2:30 PM documented in this encounter [facility] 05-30-2024 History of Present illness Narrative [facility] Telephonic Outreach Provider Action/FYI Contacted for: Routine Telephonic Outreach Contact made with patient: No, left message. Catherine Pompa RN May 30, 2024 2:56 PM documented in this encounter [facility] 05-16-2024 Telephone encounter Note [place] [facility] [place]. [facility] 05-16-2024 Miscellaneous Notes Most recent chart note [place] [facility] [place]. documented in this encounter [facility] 05-16-2024 Telephone encounter Note 2nd attempt Left message to call office. 05/16/2024 8:21 AM Fransisca Gutierrez [facility] 05-16-2024 Miscellaneous Notes 2nd attempt Left message to call office. 05/16/2024 8:21 AM Fransisca Gutierrez Images from the original note were not included. Max Best MD [facility] Clerical Pool 1) virtual visit with me in 3 months, can split up virtual new 2) virtual or in person with Dr Early in 6 months, if not possible then virtual or in person with either Joslyn Duong or Sangita Jones 1st attempt Sent to call office. Octavio RUVALCABA documented in this encounter [facility] 05-15-2024 Telephone encounter Note Images from the original note were not included. Max Best MD [facility] Clerical Pool 1) virtual visit with me in 3 months, can split up virtual new 2) virtual or in person with Dr Early in 6 months, if not possible then virtual or in person with either Joslyn Duong or Sangita Jones 1st attempt Sent to call office. Octavio Gutierrez PAC [facility] 05-15-2024 Instructions Max Best MD - 05/15/2024 2:08 PM EDT Assessment / Plan Problem: 1) Diabetes type 2, sugar control continues to be quite good, best I have seen with her. No change in Rx needed. 2) Surgical hypothyroidism, no labs since dropping levothyroxine 175 mcg from 7.5/wk to one a day, she will check these soon, I'll send comment. 3) Thyroid CA dx 2010, TG undetectable, doing well. Unchanged 1) Mixed hyperlipidemia, should get better with better sugar control 2) s/p Sleeve gastrectomy 3) CKD stage 3-4, following with Dr. María Vance 4) ABDI, has new BiPAP, using every night, and also with naps as much as possible (sometimes will fall asleep unexpectedly just sitting in a chair). Treatment / Plan: 1) decrease the morning Novolog to 13 units. 2) drop the morning Toujeo to 10 units, and if sugars are rising after lunch (in other words prior to supper), then start increasing the lunchtime Novolog. 3) return to me in 3 months by virtual visit and either Dr. Early or one of the Endocrine thermal molder in 6 months. Max Best MD documented in this encounter [facility] 05-15-2024 History of Present illness Narrative Images from the original note were not included. Virtual Visit utilizing both audio and video components MyChart-Zoom I have communicated my name and active licensure. The patient's identity and physical location were verified at the time of this visit. Either the patient or their legal patient portal representative has been informed of the risks and benefits of -- and alternatives to -- treatment through a remote evaluation and consents to proceed with the evaluation remotely. Patient location: at home, [facility] Assessment / Plan Problem: 1) Diabetes type 2, sugar control continues to be quite good, best I have seen with her. No change in Rx needed. 2) Surgical hypothyroidism, no labs since dropping levothyroxine 175 mcg from 7.5/wk to one a day, she will check these soon, I'll send comment. 3) Thyroid CA dx 2009, TG undetectable, doing well. Unchanged 1) Mixed hyperlipidemia, should get better with better sugar control 2) s/p Sleeve gastrectomy 3) CKD stage 3-4, following with Dr. María Vance 4) ABDI, has new BiPAP, using every night, and also with naps as much as possible (sometimes will fall asleep unexpectedly just sitting in a chair). Treatment / Plan: 1) decrease the morning Novolog to 13 units. 2) drop the morning Toujeo to 10 units, and if sugars are rising after lunch (in other words prior to supper), then start increasing the lunchtime Novolog. 3) return to me in 3 months by virtual visit and either Dr. Early or one of the Endocrine thermal molder in 6 months. Max Best MD Data Review: iPhone=Tynt [phone] [employer] share code XZPM NXLR DNKG Component Latest Ref Rng & Units 01/05/2023 10/19/2023 Thyroglobulin Ab, Serum <4.0 IU/mL <0.9 Thyroglobulin, Serum 1.6 - 50.0 ng/mL <0.1 (L) Free T4 0.9 - 1.7 ng/dL 1.4 1.8 (H) TSH 0.270 - 4.200 mIU/L 0.976 0.206 (L) History Diabetes type 2, insulin doses currently: Toujeo 24-24, Humalog 15-15-15 + ss no issues of low or high sugars. Hypothyroidism continues to take 175 mcg s/p COVID vaccine x 4 Diabetes History Type (2003): dx diabetes type 2 Control hx Component Hemoglobin A1C Latest Ref Rng & Units 4.3 - 5.6 % 08/29/2019 6.8 02/20/2020 7.5 (H) 06/10/2020 8.2 (H) 12/17/2020 6.0 05/31/2021 7.2 (H) 11/28/2021 6.2 (H) 01/31/23 6.6 Testing freq (11/11/15): 4x/d Eye hx (07/2015): no DM changes per pt (10/2022): no DM changes per pt Renal hx Component Albumin/Creat Ratio Latest Ref Rng 0 - 30 mg/g 02/16/2010 10 07/05/2010 9 05/08/2011 13 08/08/2013 9 02/02/2015 17 Component BUN Creatinine Latest Ref Rng & Units 7 - 21 mg/dL 0.58 - 0.96 mg/dL 09/13/2015 18 0.91 03/09/2016 16 1.01 06/07/2016 14 0.88 09/08/2017 30 (H) 1.40 (H) 03/27/2018 38 2.01 04/01/2018 27 1.68 12/02/2018 26 1.02 (04/02/18): 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 follows her Liver hx Component Bilirubin, Total Alkaline Phosphatase AST ALT Latest Ref Rng 0.0 - 1.5 mg/dL 40 - 150 U/L 7 - 40 U/L 0 - 45 U/L 07/02/2014 0.2 93 84 (H) 68 (H) 09/21/2014 0.3 74 26 24 06/23/2015 0.3 97 56 (H) 68 (H) 06/24/2015 0.3 89 57 (H) 72 (H) BP hx Vitals 06/24/2015 06/30/2015 09/04/2015 09/13/2015 11/11/2015 SITTING BP 121/64 104/67 120/70 130/80 100/62 (11/11/15): lisinopril 2.5 mg/d, metoprolol 25 mg 2x/d, Neuro hx (11/11/15): numb tingling dysesthesias in feet and legs, gets shaky sweaty with hypoglycemia Vascular hx (11/11/15): no hx [place], stroke Component Latest Ref Rng 02/20/2014 07/02/2014 09/24/2014 Triglyceride 30 - 149 mg/dL 133 134 158 (H) Cholesterol 100 - 199 mg/dL 170 189 186 HDL Cholesterol >55 mg/dL 53 (L) 62 45 (L) LDL Cholesterol 60 - 129 mg/dL 90 100 109 Non HDL Cholesterol 90 - 159 mg/dL 117 127 141 (11/11/15): niacin CR 500 mg 2x/d (06/02/19): no Rx lipids Sleep hx (11/11/15): has ABDI, on BiPAP, never sleeps without it (05/26/16): using BiPAP ever night Exercise hx (11/11/15): no exercise Medications (11/11/15): Victoza 1.8 mg daily, glimepiride 2 mg: AM=1, PM=1/2, metformin 500 mg ii-i-ii, sliding scale Humalog, using 1-3 units at a time. (05/26/16): Lantus 10 units, Victoza 1.8 mg/d, glimepiride 2 mg: AM=1, PM=1/2, metformin 500 mg ii-i-ii (11/28/16): Lantus 10 units, Victoza 1.8 mg/d, glimepiride 2 mg: AM=1, PM=1/2, metformin 500 mg ii-i-ii (04/16/17): Lantus 15 units at bed, Victoza 1.8 mg/d, glimepiride 2mg 2x/d, metformin 500 mg ii-i-ii (05/30/17): Lantus 28 units at bed, and meal Humalog 9-9-9-9 (i.e. taking another 9 units at bedtime snack), Victoza 1.8 mg/d, glimepiride 2mg 2x/d, metformin 500 mg ii-i-ii (06/05/17): Levemir 17 units twice a day, and meal Humalog 08-20-10, plus sliding scale (09/11/17): Levemir 17 AM and HS, meal Humalog --10-9 (last is for snack), plus sliding scale1 per 20, goal 120 (12/18/17): Levemir 12 units AM & HS, Humalog 8-8-7-6 plus sliding scale, metformin 500mg 2-1-1 (04/02/18): Levemir 12 units AM and HS, and Humalog 8-8-7-6 plus sliding scale, has stopped metformin (05/27/18): Levemir 22 units AM and HS, and Humalog 15-12-14-11 (08/27/18): Levemir 34 units 2x/d, Humalog 18-15-18-15 (12/04/18): Levemir 34 units 2x/d, Humalog 18-15-18-11 (03/06/19): Levemir 17 units in AM, 19 units in PM. 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 Jamey Ibrahim, [facility] Pathology (10/29/09): FNA Atypical cells present in a background of cyst contents, suspicious for papillary thyroid carcinoma (12/15/09): single well-circumscribed nodule in the right inferior lobe, which measured 3.5 cm in greatest dimension. The nodule was extensively hemorrhagic and cystic with a rim of viable material which ranges in appearance from papillary architecture to follicular structures. There is no evidence of a higher grade component. There is no definitive lymphovascular space invasion identified. In some areas, the tumor cells have oncocytic cytoplasm, however, the cells do not meet criteria for tall-cell variant of papillary thyroid carcinoma. Scan (02/24/10): post-Rx 131-Iodine scan, SIDDIQI (02/16/10): Rx 102.4 mCi 131-Iodine Thyroglobulin Component Thyroglobulin TG Antibody Screen Latest Ref Rng & Units 0.8 - 49.0 ng/mL <14.4 IU/mL 11/05/2009 75.7 (H) 1.0 01/18/2010 <0.2 (L) 1.1 02/16/2010 0.3 (L) 1.0 07/05/2010 <0.2 (L) 1.3 12/27/2010 <0.2 (L) 1.3 05/08/2011 <0.2 (L) 1.1 07/24/2011 <0.2 (L) 1.5 01/23/2012 <0.2 (L) 1.0 07/27/2012 <0.2 (L) <1.0 02/18/2013 <0.2 (L) <1.0 08/12/2013 <0.2 (L) <1.0 02/16/2014 <0.2 (L) <1.0 09/24/2014 <0.2 (L) <1.0 03/08/2015 <0.2 (L) 1.3 12/10/2015 <0.2 (L) <1.0 05/25/2016 <0.2 (L) <1.0 11/15/2016 <0.2 (L) 1.3 Vitamin D Component Vitamin D 25 Hydroxy Latest Ref Rng 31.0 - 80.0 ng/mL 01/18/2010 39.7 01/17/2011 48.1 07/24/2011 50.6 01/23/2012 40.2 02/18/2013 43.0 08/12/2013 40.0 02/16/2014 39.5 09/24/2014 36.0 Ultrasound (01/18/10): no suspicious adenopathy along great vessels or in lateral neck on either side. No masses in thyroid bed. (11/11/15): no suspicious adenopathy along great vessels or in lateral neck on either side. No masses in thyroid bed. (11/28/16): no suspicious adenopathy along great vessels or in lateral neck on either side. No masses in thyroid bed. ROS PHYSICAL EXAM PAST MED / SURG / FAMILY / SOCIAL HISTORY PAST MEDICAL HISTORY 06/23/2015: (HFpEF) heart failure with preserved ejection fraction (HCC) Comment: Dr. 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) 01/21/2013: Coronary artery calcification seen on CAT scan 03/31/2016: Depressive disorder 08/23/2010: Diverticulosis No date: Diverticulosis of colon (without mention of hemorrhage) No date: Edema 09/02/2019: GERD without esophagitis No date: Hearing loss 08/12/2014: HTN (hypertension) 08/12/2014: Hypertensive kidney disease with stage 3a chronic kidney disease (HCC) 06/30/2020: 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) No date: Ingrown toenail No date: Morbid obesity ([facility]) No date: Obstructive sleep apnea Comment: CPAP No date: Other and unspecified hyperlipidemia No date: Other dyspnea and respiratory abnormality No date: Palpitations 08/18/2020: Primary osteoarthritis of both hips No date: Rosacea No date: Symptomatic menopausal or female climacteric states 12/2009: Thyroid cancer ([facility]) Comment: papillary cancer No date: Type II or unspecified type diabetes mellitus without mention of complication, not stated as uncontrolled 07/10/2018: 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 10/2018: Unspecified intestinal obstruction PAST SURGICAL HISTORY 05/20/2001: APPENDECTOMY Comment: open 08/18/2014: ARTHRP KNE CONDYLE&PLATU MEDIAL&LAT COMPARTMENTS; Left Comment: Knee replacement, total left 06/12/2012: ARTHRP KNE CONDYLE&PLATU MEDIAL&LAT COMPARTMENTS; Right Comment: total right knee arthroplasty 12/15/2009: ; THYROIDECTOMY TOTAL OR COMPLETE; Bilateral Comment: Papillary Ca 05/20/2001: CHOLECYSTECTOMY Comment: Cholecystectomy-lap 06/06/2004: COLONOSCOPY FLX DX W/COLLJ SPEC WHEN PFRMD 08/23/2010: COLONOSCOPY FLX DX W/COLLJ SPEC WHEN PFRMD 01/17/2002: EXCISION EXCESSIVE SKIN & SUBQ TISSUE OTHER AREA Comment: Abdominoplasty 06/24/2020: EXPLORATORY LAPAROTOMY, CELIOTOMY-SP Comment: Takedown of enteroprosthetic fistula.Small bowel resection anastosmosis. Removal infected mesh. Recurrent vental hernia repair. 09/19/2021: HIP ARTHROSCOPY W/SYNOVECTOMY; Right Comment: exc.seroma; gluteus repair; rotium augmentation; trochanteric bursectomy, iliotibial band resection 03/10/2019: LAPAROCOPIC SLEEVE GASTRECTOMY Comment: Extensive laparoscopic lysis of adhesions. EGD. Lap. TAP block. 09/13/2017: LEFT HEART CATH,PERCUTANEOUS Comment: no significant CAD 03/1991: NEPHRECTOMY PARTIAL; Right Comment: Right side for benign tumor, small lesion removed 09/25/2005: REPAIR FIRST ABDOMINAL WALL HERNIA Comment: 7 times total 06/11/2007: RPR 1ST INCAL/VNT HERNIA INCARCERATED Comment: with mesh 05/20/2001: TOTAL ABDOMINAL HYSTERECT W/WO RMVL TUBE OVARY Comment: PER, for fibroids and BSO 10/20/2020: TOTAL HIP REPLACEMENT; Right Comment: anterior minimally invasive right total hip FAMILY HISTORY Problem Relation Age of Onset COPD Mother at 64 yoa Ischemic Heart Disease Father Mi at 61 yoa Hypertension Sister 2 years younger Coronary Artery Disease Sister Stroke Sister Diabetes Sister GI Brother cirrhosis other (AAA rupture) Brother Lung cancer, 49 yoa other (parkinson) Son 41 Diabetes Maternal Aunt Cancer Paternal Aunt Cervical cancer Diabetes Paternal Aunt Heart Paternal Uncle Diabetes Paternal Grandfather Anesthesia Problems No Family History Social History Tobacco Use Smoking status: Former Current packs/day: 0.00 Average packs/day: 2.0 packs/day for 15.0 years (30.0 ttl pk-yrs) Types: Cigarettes Start date: 09/10/1976 Quit date: 09/10/1991 Years since quittin.7 Smokeless tobacco: Never Vaping Use Vaping status: Never Used Substance Use Topics Alcohol use: No Drug use: No MEDICATIONS & ALLERGIES Prior to Admission Medications: Current Outpatient Prescriptions on File Prior to Visit: HYDROcodone-Acetaminophen (NORCO) 10-325 mg per tablet Take 1 tablet by mouth every 6 hours as needed for Pain. fluticasone (FLONASE) 50 mcg/actuation nasal spray Use 2 Sprays in each nostril once daily. codeine-guaiFENesin (ROBITUSSIN AC) 10-100 mg/5 mL syrup Take 5-10 mL by mouth four times daily as needed for Cough. May cause drowsiness. furosemide (LASIX) 20 mg tablet Take 1 tablet by mouth twice daily. LORazepam (ATIVAN) 0.5 mg tab Take 1 tablet by mouth twice daily as needed. gabapentin (NEURONTIN) 300 mg capsule 2 AT HS AND ONE IN AM potassium chloride (K-TAB) 10 mEq tablet Take 1 tablet by mouth once daily. nitroglycerin sublingual (NITROQUICK) 0.4 mg SL tablet Dissolve 1 tablet under the tongue as needed. FOR CHEST PAIN. IF NO RELIEF CALL 911 Insulin Lispro, Human, (HUMALOG KWIKPEN) 100 unit/mL inpn 1-9 units before mealtime and at bedtime, according to sliding scale Insulin Wales, Disposable, (TIFFANIE PEN NEEDLE) 32 x 5/32 ndle use 4 times a day with Humalog pen blood sugar diagnostic (ACCU-CHEK SMARTVIEW TEST STRIP) test strip Use as instructed to test blood glucose 4 times daily (sugars currently uncontrolled, CKD stage 3) glimepiride (AMARYL) 2 mg tablet 1 pill in morning, and 1/2 pill at supper Lancets lancets Testing twice a day. DX:250.00 SYNTHROID 175 mcg tablet Take 1 tablet by mouth once daily. Take 8 tablets per week metFORMIN (GLUCOPHAGE) 500 mg tablet Take by mouth. take 2 in the morning, 1 at supper, 1 at bedtime lisinopril 2.5 mg tablet Take 1 tablet by mouth once daily. liraglutide (VICTOZA 3-DEVIN) 0.6 mg/0.1 mL (18 mg/3 mL) pnij Inject 1.8 mg subcutaneously once daily. metoprolol tartrate, short acting, (LOPRESSOR) 25 mg tablet Take 1 tablet by mouth twice daily. blood sugar diagnostic (CONTOUR TEST STRIPS) test strip Test blood sugar(s) 4 times daily. Dx: 250.0. Insulin: No niacin 500 mg CR capsule Take 1 capsule by mouth twice daily. [id number]-fish oil-D3 360 mg-1,200 mg -1,000 unit cap Take by mouth three times daily. Insulin Wales, Disposable, (PEN NEEDLE) 29 x 1/2 ndle Use 1 time daily with injectable pen glimepiride (AMARYL) 1 mg tablet Take 1 tablet by mouth once daily. As directed (Patient taking differently: Take 2 mg by mouth once daily. As directed) COMPOUNDED PRESCRIPTION Initiate BiPAP @ 15/9 cm of water with humidification. Mask (per patient preference) optional chin strap (if indicated) , filters, tubing, humidifier and lifetime supplies. Dx. ABDI 327.23 diphenhydrAMINE (BENADRYL ALLERGY) 25 mg tablet Take 1 tablet by mouth every 6 hours as needed for Itching/Rash. COMPOUNDED PRESCRIPTION Pen Needle BD Ultra Fine 29 g 12.7 mm Twice a day as directed 250.00 insulin needles, DISPOSABLE, (PEN NEEDLE) 31 X 5/16 Ndle use as directed twice daily Omeprazole Magnesium (PRILOSEC) 10 mg SuDR Take by mouth as needed. Cholecalciferol, Vitamin D3, 1,000 unit ORAL Tab Take by mouth once daily. metroNIDAZOLE (METROGEL) 1 % TOPICAL gel Apply to affected area once daily. blood sugar diagnostic (ASCENSIA MICROFILL) Misc test strip Check before and after each meal and at hs polyethylene glycol 3350(MIRALAX 100 % ORAL POWDER) 17 grams/8 0z water daily ASA LOW DOSE 81MG TAB EC Take one(1) tablet daily. No current facility-administered medications on file prior to visit. ALLERGIES Allergen Reactions Adhesive Tape (Jamila* Other: See Comments Contact celluitis Crestor [Rosuvastat* Intolerance Lantus [Insulin Gla* Intolerance burning at local injection site Nickel Rash in jewelry; also Palladium which cross reacts with nickel in some cases. Palladium Rash Pravastatin Intolerance Muscle cramps Toradol [Ketorolac] Hives documented in this encounter [facility] 05-06-2024 History of Present illness Narrative Ortho Hip Follow Up Note Narrative Referring Provider: No referring provider defined for this encounter. PCP: Jesus Davila MD IMPRESSION/PLAN: Impressions indicate: 79 year old s/p Left Total Hip Replacement completed on 01/21/2024. Recent Surgeries this specialty 01/21/2024 (3mo) ARTHROPLASTY REPLACE JOINT TOTAL HIP (Left) Clyde Beltran MD; Tian Yoder MD; Denis Calhoun MD - Posted 08/18/2014 (9yr) ARTHROPLASTY REPLACE JOINT TOTAL KNEE (Left) Rakesh Mora MD - Posted 08/18/2014 (9yr) ARTHROPLASTY REPLACE JOINT TOTAL KNEE (Left) Rakesh Mora MD - Posted 06/12/2012 (11yr) ARTHROPLASTY REPLACE JOINT TOTAL KNEE (Right) Rakesh Mora MD - Posted PAIN EVALUATION No data found in the last 1 encounters. IMPRESSION: No complaints or limitations. PLAN: No new treatment indicated: Routine follow-up with x-rays. Patient Reassurance: Normal post-operative course discussed with patient. Follow up 5 years X-Rays Needed ACTIVE PROBLEM LIST Edema Abdi Treated With Bipap Arteriosclerotic Heart Disease (Ashd) Hypertensive Heart Disease With Heart Failure and Stage 4 Chronic Kidney Disease (Hcc) Degenerative Arthritis of Knee Myalgia Hyperlipidemia (Hfpef) Heart Failure With Preserved Ejection Fraction (Hcc) Fatty Liver History of Thyroid Cancer Type 2 Diabetes Mellitus With Stage 4 Chronic Kidney Disease, With Long-Term Current Use of Insulin (Hcc) Depression, Recurrent (Hcc) Chronic Kidney Disease, Stage IV (Severe) ([facility]) S/P Laparoscopic Sleeve Gastrectomy Gerd Without Esophagitis Sensory Hearing Loss, Bilateral Class 3 Severe Obesity With Body Mass Index (Bmi) of 45.0 to 49.9 in Adult ([facility]) Type 2 Diabetes Mellitus With Diabetic Neuropathy, With Long-Term Current Use of Insulin ([facility]) Primary Osteoarthritis of Both Hips Vertigo Cognitive Impairment Circadian Rhythm Sleep Disorder, Irregular Sleep Wake Type Anemia Acute Gout Dysuria Urinary Frequency Cloudy Urine Obesity, Class II, Bmi 35-39.9 Arthritis of Left Hip Slow Heart Rate HPI: Bhakti Kirkpatrick presents today for an intermediate post-op visit. STATUS POST: BMI: There is no height or weight on file to calculate BMI. ED Visits & Hospitalizations - Last 180 days 01/21/24 Clyde Beltran MD, [id number] Acute post-operative pain ..., Admission (Discharged) Patient rates their condition as improving. Does the patient still experience pain? No. Post Op discharge patient location: in home. Functional Assessment is as follows: completed course of therapy and completed home PT. Functional difficulties: None. Pain Medication: Non-narcotic 05/09/2021 05/10/2021 07/08/2021 Physical Therapy Data Therapist that will oversee plan of care Luisito Campoverde Prognosis Excellent Good Good Frequency 1x/week 1x/week 1x/week Duration 4 weeks 4 weeks 8 weeks Total number of visits 4 4 8 Planned treatment interventions Therapeutic exercise (39479);Canalith Repositioning Maneuvers (30809);Manual therapy (19815);Neuromuscular re-education (09967) Therapeutic exercise (13913);Canalith Repositioning Maneuvers (92985);Manual therapy (90893);Neuromuscular re-education (38811) Therapeutic exercise (82936);Neuromuscular re-education (69132);Manual therapy (77625);Therapeutic activities (57006);Self-residential management (59866);Gait Training (93354);Patient/Family/Caregiver Education;Canalith Repositioning Maneuvers (15974) Plan for next visit Transfer of Care retest VNG and treat accordingly retest VNG and treat accordingly. Assess cervical spine as warranted for neck pain transfer of care due to Specialty Service specialty service Vestibular rehab patient transferring care to Janeth Fragoso ricky Boyce = EXAM: POST OP HIP = LEFT POST-OPERATIVE HIP SKIN: Incision well healed. Range of Motion: Pain Free Neurovascular Status: Sensation Intact, Moves foot and ankle up & down, and 2+ dorsalis pedis Gait: Normal, the patient did not have trouble getting onto the exam table. HIP EXAM: Left: ROM: Extension: Normal Flexion: 110 degrees Internal Rotation: 30 degrees External Rotation: 30 degrees Abduction: 40 degrees Adduction: 30 degrees Strength: Abduction 5/5 and Flexion 5/5 Palpation: No tenderness Log roll: non-painful. Limb length: clinically equal Straight leg raise: Negative Neurovascular Status: Sensation Intact and Moves foot and ankle up & down IMAGING: X-ray Hips: Post op None today. Provider: Clyde Beltran MD documented in this encounter [facility] 05-02-2024 History of Present illness Narrative CDM Telephonic Outreach Provider Action/FYI Contacted for: Routine Telephonic Outreach Contact made with patient: Yes Patient identified by name and date of . Discussed care with patient Are you experiencing any new or worsening symptoms you need to talk about today? No Disease Specific Do you check your blood pressure at home? Yes, Enter readings: not reported Do you have new or worsening shortness of breath with activity? No Do you have new or worsening trouble breathing while lying flat? No Do you have new or worsening swelling of legs, feet or ankles? No Do you feel like you are dehydrated for any reason, including not being able to eat or drink normally, or having less urine/much darker urine than normal for you? No Do you check your daily weight at home? Yes, Have you noticed a sudden gain in weight greater than three pounds in a day or three pounds in a week? No Based on manager of selection and assessment, the following disposition is advised: No symptoms or symptoms present, not severe. Routed to: No Action Needed IVAN Education Provided this Outreach: No Catherine Pompa RN May 02, 2024 2:13 PM Care Coordination next call- CHF,CKD,DM Dementia Last CDM outreach contact: 05/02/24- No CDM concerns. 184 lbs S/P TH surg. Walking well. Independent. Ortho post op fu 05/06. Going to mall shopping with a few times per week and walking a lot Baseline: 11/14/23 ADL, FALL, GOAL due: 08/22/24 . Chronic disease goal - 04/03/24 completed all 02/02/23 -chf/ckd 08/22/23-reviewed zones/management Goal assessment: 11/14/23 SDOH transportation and food insecurity completed: 02/21/24 Recent admit, ED, observation: Admit 01/20- LTH DC 01/23 with [facility] documented in this encounter [facility] 04-08-2024 History of Present illness Narrative Radiology Service Progress Note PATIENT NAME: Bhakti Kirkpatrick DATE OF SERVICE: April 08, 2024 TIME: 11:25 AM PATIENT IDENTITY VERIFICATION COMPLETED USING TWO (2) IDENTIFIERS: Name and Date of confirmed by patient verbally. FALL SCREENING: Has the patient had 2 falls in the last year or 1 fall with injury or currently using an Ambulatory Assistive Device (Walker, Cane, Wheelchair, Crutches, etc.)? Yes, Patient High Risk for Falls What interventions were put in place to prevent falls during this visit? Offered Assistance with Transfers/Clothing and Instructed Patient to Remain Seated (Not on Exam Table) Until Exam PATIENT GENDER DATA: Female. status: : No status: NO. PATIENT RELEVANT IMPLANT DATA REVIEWED: Not Applicable PATIENT PRESENTS WITH AN IMPLANTABLE OR ATTACHED HRIS DEVELOPER: No RADIOLOGY DEPARTMENT: General X-ray: Exam(s) Completed: Pelvis X-Ray: Pelvis with Hip Left PERIPHERAL IV DATA: Not applicable SIGNED BY: RT Zaid(R) April 08, 2024 11:25 AM documented in this encounter [facility] 04-03-2024 History of Present illness Narrative CDM Telephonic Outreach Provider Action/FYI Contacted for: Routine Telephonic Outreach Contact made with patient: No, left message. Catherine Pompa RN April 03, 2024 1:52 PM Care Coordination next call- CHF,CKD,DM Dementia lvm x 5 with Ph # Last CDM outreach contact: 01/09/24- No CDM concerns. BS low at appt today. Pt does not get any symptoms, but did seem sleepy at appt. Spouse states dexcom not working accurately. Now using finger stick. Pt ate lunch when she got home. Pt did not recheck BS. Recommended to to recheck BS and if low to contact PCP or Endo. Baseline: 11/14/23 ADL, FALL, GOAL due: 08/22/24 . Chronic disease goal - 02/02/23 -chf/ckd 08/22/23-reviewed zones/management Goal assessment: 11/14/23 SDOH transportation and food insecurity completed: 02/02/23 Recent admit, ED, observation: Admit 01/20- LTH DC 01/23 with [facility] documented in this encounter [facility] 04-03-2024 History of Present illness Narrative Radiology Service Progress Note PATIENT NAME: Bhakti Kirkpatrick DATE OF SERVICE: April 03, 2024 TIME: 9:49 AM PATIENT IDENTITY VERIFICATION COMPLETED USING TWO (2) IDENTIFIERS: Name and Date of confirmed by patient verbally. FALL SCREENING: Has the patient had 2 falls in the last year or 1 fall with injury or currently using an Ambulatory Assistive Device (Walker, Cane, Wheelchair, Crutches, etc.)? Yes, Patient High Risk for Falls What interventions were put in place to prevent falls during this visit? Instructed Patient to Call for Help if Needed, Offered Assistance with Transfers/Clothing, and Increased Observations by Caregivers PATIENT GENDER DATA: Female. status: : No status: NO. PATIENT RELEVANT IMPLANT DATA REVIEWED: Yes PATIENT PRESENTS WITH AN IMPLANTABLE OR ATTACHED HRIS DEVELOPER: No RADIOLOGY DEPARTMENT: General X-ray: Exam(s) Completed: Chest X-Ray PERIPHERAL IV DATA: Not applicable SIGNED BY: RT Rola(R) April 03, 2024 9:49 AM documented in this encounter [facility] 04-03-2024 History of Present illness Narrative CC: Patient presents with: Cough: Chest congestion x 5 days HPI: Bhakti Kirkpatrick is a 78 year old female who presents to the office with complaint of chest congestion, head congestion, and cough, nonproductive for a week. Symptoms are worsening Associated symptoms includes wheezing and dyspnea. Denies fever, nausea, vomiting , and diarrhea. Treatments tried include nothing so far. with no relief of symptoms. Sick contacts: unknown. History of asthma, frequent episodes of bronchitis, chronic bronchitis, bronchiectasis or COPD: No Smoker: No Seasonal/environmental allergies: No The ROS is otherwise negative. The patient's pmh, medications, allergies, and past visits are reviewed. PHYSICAL EXAM: [facility] 06/27/2011 General appearance: alert, cooperative, pleasant, in no acute distress Head: Normocephalic Eyes: EOM's intact, conjunctiva pink and moist, no icterus, sclera white, non-injected Ears: Right ear: External ear/canal- Normal, TM - clear with good landmarks. Left ear: External ear/canal- Normal, TM - clear with good landmarks Oropharynx:moist without lesions, No erythema, exudates or tonsillar hypertrophy. Heart: Negative. RRR without obvious murmur, gallop, or rubs. No ectopy. Lungs: mild wheezing diffusely PAST MEDICAL HISTORY Diagnosis Date (HFpEF) heart failure with preserved ejection fraction (HCC) 06/23/2015 Dr. 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) 02/06/2015 Coronary artery calcification seen on CAT scan 01/21/2013 Depressive disorder 03/31/2016 Diverticulosis 08/23/2010 Diverticulosis of colon (without mention of hemorrhage) Edema GERD without esophagitis 09/02/2019 Hearing loss HTN (hypertension) 08/12/2014 Hypertensive kidney disease with stage 3a chronic kidney disease (HCC) 08/12/2014 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) 06/30/2020 Ingrown toenail Morbid obesity (HCC) Obstructive sleep apnea CPAP Other and unspecified hyperlipidemia Other dyspnea and respiratory abnormality Palpitations Primary osteoarthritis of both hips 08/18/2020 Rosacea Symptomatic menopausal or female climacteric states 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 Type II or unspecified type diabetes mellitus without mention of complication, not stated as uncontrolled 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 07/10/2018 Unspecified intestinal obstruction 10/2018 PAST SURGICAL HISTORY Procedure Laterality Date APPENDECTOMY 05/20/2001 open ARTHRP KNE CONDYLE&PLATU MEDIAL&LAT COMPARTMENTS Left 08/18/2014 Knee replacement, total left ARTHRP KNE CONDYLE&PLATU MEDIAL&LAT COMPARTMENTS Right 06/12/2012 total right knee arthroplasty ; THYROIDECTOMY TOTAL OR COMPLETE Bilateral 12/15/2009 Papillary Ca CHOLECYSTECTOMY 05/20/2001 Cholecystectomy-lap COLONOSCOPY FLX DX W/COLLJ SPEC WHEN PFRMD 06/06/2004 COLONOSCOPY FLX DX W/COLLJ SPEC WHEN PFRMD 08/23/2010 EXCISION EXCESSIVE SKIN & SUBQ TISSUE OTHER AREA 01/17/2002 Abdominoplasty EXPLORATORY LAPAROTOMY, CELIOTOMY-SP 06/24/2020 Takedown of enteroprosthetic fistula.Small bowel resection anastosmosis. Removal infected mesh. Recurrent vental hernia repair. HIP ARTHROSCOPY W/SYNOVECTOMY Right 09/19/2021 exc.seroma; gluteus repair; rotium augmentation; trochanteric bursectomy, iliotibial band resection LAPAROCOPIC SLEEVE GASTRECTOMY 03/10/2019 Extensive laparoscopic lysis of adhesions. EGD. Lap. TAP block. LEFT HEART CATH,PERCUTANEOUS 09/13/2017 no significant CAD NEPHRECTOMY PARTIAL Right 03/1991 Right side for benign tumor, small lesion removed REPAIR FIRST ABDOMINAL WALL HERNIA 09/25/2005 7 times total RPR 1ST INCAL/VNT HERNIA INCARCERATED 06/11/2007 with mesh TOTAL ABDOMINAL HYSTERECT W/WO RMVL TUBE OVARY 05/20/2001 PER, for fibroids and BSO TOTAL HIP REPLACEMENT Right 10/20/2020 anterior minimally invasive right total hip ALLERGIES Adhesive Tape (Rosins), Crestor [Rosuvastatin Calcium], Lantus [Insulin Glargine], Nickel, Palladium, Pravastatin, and Toradol [Ketorolac] MEDICATIONS insulin aspart U-100 (NOVOLOG FLEXPEN U-100 INSULIN) 100 unit/mL (3 mL) Inject 14 Units subcutaneously three times a day before meals. 14 in AM, 14 at lunch, 14 at supper, 10 at bed, plus extra based on sugars, max daily dose 100 units plus sliding scale allopurinol (ZYLOPRIM) 300 mg tablet Take 1 tablet by mouth once daily. For gout. blood sugar diagnostic (ACCU-CHEK ANNALISE PLUS TEST STRP) test strip Use to check blood sugar 4 times daily nitroglycerin sublingual (NITROQUICK) 0.4 mg SL tablet Dissolve 1 tablet under the tongue as needed. FOR CHEST PAIN. IF NO RELIEF CALL 911 (Patient taking differently: Dissolve 0.4 mg under the tongue every 5 minutes as needed for chest pain. One tablet every 5 minutes x 3 doses FOR CHEST PAIN. IF NO RELIEF CALL 911) DULoxetine (CYMBALTA) 60 mg capsule Take 1 capsule by mouth once daily. insulin glargine U-300 conc (TOUJEO SOLOSTAR U-300 INSULIN) 300 unit/mL (1.5 mL) take 24 units twice a day, max daily dose 60 units (Patient taking differently: Inject 24 Units subcutaneously two times a day. take 24 units twice a day, max daily dose 60 units) memantine (NAMENDA) 10 mg tablet Take 1 tablet by mouth two times a day. furosemide (LASIX) 40 mg tablet Take 40 mg by mouth once daily. Per Dr. Lilian Vance, nephrology. colchicine 0.6 mg tablet Take 2 tabs by mouth, followed by 1 tab one hour later for gout flare. May repeat in 1 week. Insulin Wales, Disposable, (BD ULTRAFINE III MINI PEN) 31 gauge x 3/16 1 Each as directed. 6 times daily. Dx:E11.40. On multiple insulin doses. levothyroxine (SYNTHROID) 175 mcg tablet 7 & 1/2 pills per week (one a day with extra half pill on Sunday) (Patient taking differently: Take 175 mcg by mouth once daily. 7 & 1/2 pills per week (one a day with extra half pill on Sunday)) glucagon 3 mg/actuation nasal spray (BAQSIMI) Use 1 [place] in the nose as needed for low blood sugar. May repeat after 15 minutes using a new device if there is no response. evolocumab (REPATHA SURECLICK) 140 mg/mL pen injector Inject 140 mg subcutaneously every 2 weeks. Per [facility]. Lancets (ACCU-CHEK SOFTCLIX LANCETS) lancets Checking blood sugars 4 times daily. Dx: E11.42 CPAP Auto bilevel with humidity set as follows: IPAP max 24, EPAP min 8 and PS 4-6 cmH2O. Comfort settings TiMax 2.0, TiMin 0.3, Trigger -M, Cycle-M. Continue using ResMed N20 nasal mask interface. ferrous sulfate 325 mg (65 mg iron) tablet Take 325 mg by mouth twice daily with meals. BIPAP multivit-min/iron/folic acid/K (BARIATRIC MULTIVITAMINS ORAL) Take 1 capsule by mouth once daily. Patient should start on January 28, 2024. fluticasone (FLONASE) 50 mcg/actuation nasal spray Use 2 Sprays in each nostril once daily. (Patient taking differently: Use 2 Sprays in each nostril as needed for cold/allergy symptoms.) COMPOUNDED PRESCRIPTION Initiate BiPAP @ 15/9 cm of water with humidification. Mask (per patient preference) optional chin strap (if indicated) , filters, tubing, humidifier and lifetime supplies. Dx. ABDI 327.23 polyethylene glycol 3350(MIRALAX 100 % ORAL POWDER) 17 grams/8 0z water daily (Patient taking differently: 17 grams/8 0z water daily by mouth daily for constipation) insulin lispro (HUMALOG KWIKPEN INSULIN) 200 unit/mL (3 mL) injection INJECT UP TO 165 UNITS SUBCUTANEOUSLY DAILY. ascorbic acid, vitamin C, (VITAMIN C) 500 mg tablet Take 1 tablet by mouth once daily for 21 days. aspirin, enteric coated (ASPIRIN, ENTERIC COATED) 81 mg EC tablet Take 1 tablet by mouth two times a day. lidocaine (LIDODERM) 5 % Apply 1 Patch as directed every 12 hours. Remove old patch prior to placing new patch. Location: arms, left rib. 12 hours on, 12 hours off. Blood-Glucose Transmitter (Histros G6 TRANSMITTER) claudia change every 3 weeks [DISCONTINUED] calcium citrate (CITRACAL ORAL) Take 2 tablets by mouth two times a day. NOT TAKING Patient should start on January 26, 2024. FAMILY HISTORY Problem Relation Age of Onset COPD Mother at 64 yoa Ischemic Heart Disease Father Mi at 61 yoa Hypertension Sister 2 years younger Coronary Artery Disease Sister Stroke Sister Diabetes Sister GI Brother cirrhosis other (AAA rupture) Brother Lung cancer, 49 yoa other (parkinson) Son 41 Diabetes Maternal Aunt Cancer Paternal Aunt Cervical cancer Diabetes Paternal Aunt Heart Paternal Uncle Diabetes Paternal Grandfather Anesthesia Problems No Family History Social History Tobacco Use Smoking status: Former Packs/day: 2.00 Years: 15.00 Additional pack years: 0.00 Total pack years: 30.00 Types: Cigarettes Quit date: 09/10/1991 Years since quittin.5 Smokeless tobacco: Never Vaping Use Vaping Use: Never used Substance Use Topics Alcohol use: No Drug use: No ASSESSMENT/PLAN: 1. Acute cough - ICD9: 786.2, ICD10: R05.1 (primary diagnosis) - XR CHEST 2V FRONTAL/LAT * * * * Physician Interpretation * * * * EXAMINATION: CHEST RADIOGRAPH (2 VIEW FRONTAL & LATERAL) CLINICAL HISTORY: Acute cough MQ: [id number] EXAM DATE/TIME: 04/03/2024 10:09 AM COMPARISON: Chest x-ray on 01/23/2024 RESULT: Lines, tubes, and devices: None. Lungs and pleura: There appears be mild right basilar atelectasis. No definite consolidation. No lung mass. No pleural effusion. No pneumothorax. There are large pericardial fat pads. Cardiomediastinal silhouette: Unremarkable cardiomediastinal silhouette. Bones and soft tissues: The spine shows degenerative changes. IMPRESSION IMPRESSION: Mild right basilar atelectasis. Dishcloth Folder: DOTTY Transcribe Date/Time: Apr 03 2024 10:21A Dictated by : CLAUDETTE POE MD 2. Rhinosinusitis - ICD9: 473.9, ICD10: J32.9 - DOXYCYCLINE HYCLATE 100 MG TABLET Prescription instructions reviewed with patient as applicable. Potential red flag symptoms discussed with the patient. Reviewed appropriate action plan to take if red flag symptoms occur. Patient agreeable to treatment plan. Reny Yap APRN.[employer] documented in this encounter [facility] 03-18-2024 Instructions Kenzie Fairbanks PA-C - 03/18/2024 3:19 PM EDT Continue with Namenda 10mg twice daily Increase physical activity and brain activity. Increase water intake. Follow up in 4 months documented in this encounter [facility] 03-18-2024 History of Present illness Narrative ESTABLISHED PATIENT VISIT Last visit: 01/07/[address] Pena ASSESSMENT/PLAN: 1. Dyspnea on exertion - ICD9: 786.09, ICD10: R06.09 (primary diagnosis) 2. Bilateral lower extremity edema - ICD9: 782.3, ICD10: R60.0 Patient with lower extremity edema with calf tenderness and LAZAR. Told by podiatry and derm that symptoms are due to neuropathy. However, symptoms more concerning for either CV or PV disorder including possible CHF or DVT. To further evaluate will get ECHO as well as lower ext dopplers. Patient will follow up after studies complete. Patient also needs follow up with PCP and will inform Dr. Davila. 3. Diabetic polyneuropathy associated with type 2 diabetes mellitus (HCC) - ICD9: 250.60, 357.2, ICD10: E11.42 Present, but do not believe the cause of leg swelling. In addition, while occasional numbness in feet, patient with primary complaint of joint pain. Pain also relieved with arthritic meds while per pt Cymbalta having no effect. 4. Dementia without behavioral disturbance, psychotic disturbance, mood disturbance, or anxiety, unspecified dementia severity, unspecified dementia type (HCC) - ICD9: 294.20, ICD10: F03.90 MOCA not performed. No clinical decline and feels stable. Already on max dose of Namenda and could not tolerate Aricept. No changes in meds today. No new recommendations. 5. ABDI (obstructive sleep apnea) - ICD9: 327.23, ICD10: G47.33 As in past, patient declining use. Reviewed possible med conditions that could be associated with untreated ABDI including those that could also result in leg swelling as well as concern that untreated ABDI may exacerbate ABDI. Pt still declines use. Akilah Pena MD CHIEF COMPLAINT: follow up HISTORY OF PRESENT ILLNESS: Bhakti Kirkpatrick is a 78 year old female, There were no vitals taken for this visit. with a PMH significant for DM Type 2, HLD, HFpEF, HTN, ABDI, dementia, CKD, thyroid cancer, anemia, depression. Saw Dr. Pena on 01/07/24 for dementia follow up . Feels memory is stable, did not tolerate aricept. Concerned about lower leg pain. Having some mood swings. Ordered ECHO due to worsening leg swelling. Stable on Namenda, deferring moca. Deferred CPAP use. ECHO was stable. Patient presents with her for follow-up appointment. notes overall memory has been stable since last appointment with them slight worsening in word recall. States that before she was able to describe the word for use and what types of words on she forgot what she is trying to say but is no longer able to do that. Notes that she will try to say something but just be unable to relay her thoughts which is very frustrating for her and family. No falls since last appointment. Is not driving, does not use the stove. Notes that her helps her with bathing and dressing. Appetite is good, lives with her spouse with a. Does have 3-4 steps to get up into the house but otherwise does not use steps on a regular basis. Weight has been stable, sleep is variable, sometimes she won't be able to sleep until 3 AM. But no wandering at night, no increased confusion at nighttime. No behavioral changes, no new concerns. notes that swelling in her legs is significantly improved, is compliant with her Lasix uses her CPAP machine about once every 30 days as she does not tolerate it well because of mucus. Drinks about 8 to 16 ounces of fluids a day. Is not very active, but does like to do jigsaw puzzles and word search. REVIEW OF SYSTEMS GENERAL:No weight loss, malaise or fevers. HEENT:Negative for frequent or significant headaches, No changes in hearing or vision, no nose bleeds or other nasal problems NECK:Negative for lumps, goiter, pain and significant neck swelling RESPIRATORY: Negative for cough, wheezing or shortness of breath. CARDIOVASCULAR: Negative for chest pain, leg swelling or palpitations. GASTROINTESTINAL: Negative for abdominal discomfort, blood in stools or black stools or change in bowel habits GENITOURINARY: No history of dysuria, frequency or incontinence MUSCULOSKELETAL: Negative for joint pain or swelling, back pain or muscle pain. NEUROLOGIC:Negative for focal numbness or weakness, headaches and dizziness or syncope, vision changes, speech/languag changes - EXCEPT that as per HPI above. SKIN:Negative for lesions, rash, and itching. PSYCHIATRIC: Negative for sleep disturbance, mood disorder and recent psychosocial stressors. HEMATOLOGIC/LYMPHATIC/IMMUNOLOGIC :Negative for prolonged bleeding, bruising easily or swollen nodes. ENDOCRINE: Negative for cold or heat intolerance, polyuria, polydipsia and goiter. The remainder of the ROS was reviewed and is negative. LAB/IMAGING: Those performed since patient's last visit have been reviewed. ECHO 01/11/24 CONCLUSIONS: - Technically difficult exam due to body habitus and patient supine. - Exam indication: Pre-op hip surgery - The left ventricle is normal in size. There is concentric left ventricular hypertrophy. Left ventricular systolic function is normal. EF = 64 5% (2D 4-ch.) Grade II left ventricular diastolic dysfunction. - The right ventricle is normal in size. Right ventricular systolic function is normal. - The left atrial cavity is mildly dilated. - Exam was compared with the prior echocardiographic exam performed on 03/09/2016. Comparable findings (since 2013): echolucent pericardial space that remained unchanged and most probably representing epicardial fat. US DVT lower 01/11/24 IMPRESSION: No sonographic evidence of deep venous thrombosis in either lower extremity. The calf veins were not well visualized. MEDICATIONS: insulin aspart U-100 (NOVOLOG FLEXPEN U-100 INSULIN) 100 unit/mL (3 mL) Inject 14 Units subcutaneously three times a day before meals. 14 in AM, 14 at lunch, 14 at supper, 10 at bed, plus extra based on sugars, max daily dose 100 units plus sliding scale allopurinol (ZYLOPRIM) 300 mg tablet Take 1 tablet by mouth once daily. For gout. blood sugar diagnostic (ACCU-CHEK ANNALISE PLUS TEST STRP) test strip Use to check blood sugar 4 times daily nitroglycerin sublingual (NITROQUICK) 0.4 mg SL tablet Dissolve 1 tablet under the tongue as needed. FOR CHEST PAIN. IF NO RELIEF CALL 911 (Patient taking differently: Dissolve 0.4 mg under the tongue every 5 minutes as needed for chest pain. One tablet every 5 minutes x 3 doses FOR CHEST PAIN. IF NO RELIEF CALL 911) DULoxetine (CYMBALTA) 60 mg capsule Take 1 capsule by mouth once daily. insulin glargine U-300 conc (TOUJEO SOLOSTAR U-300 INSULIN) 300 unit/mL (1.5 mL) take 24 units twice a day, max daily dose 60 units (Patient taking differently: Inject 24 Units subcutaneously two times a day. take 24 units twice a day, max daily dose 60 units) memantine (NAMENDA) 10 mg tablet Take 1 tablet by mouth two times a day. furosemide (LASIX) 40 mg tablet Take 40 mg by mouth once daily. Per Dr. Lilian Vance, nephrology. colchicine 0.6 mg tablet Take 2 tabs by mouth, followed by 1 tab one hour later for gout flare. May repeat in 1 week. Insulin [place], Disposable, (BD ULTRAFINE III MINI PEN) 31 gauge x 3/16 1 Each as directed. 6 times daily. Dx:E11.40. On multiple insulin doses. levothyroxine (SYNTHROID) 175 mcg tablet 7 & 1/2 pills per week (one a day with extra half pill on Sunday) (Patient taking differently: Take 175 mcg by mouth once daily. 7 & 1/2 pills per week (one a day with extra half pill on Sunday)) glucagon 3 mg/actuation nasal spray (BAQSIMI) Use 1 [place] in the nose as needed for low blood sugar. May repeat after 15 minutes using a new device if there is no response. evolocumab (REPATHA SURECLICK) 140 mg/mL pen injector Inject 140 mg subcutaneously every 2 weeks. Per [facility]. Lancets (ACCU-CHEK SOFTCLIX LANCETS) lancets Checking blood sugars 4 times daily. Dx: E11.42 CPAP Auto bilevel with humidity set as follows: IPAP max 24, EPAP min 8 and PS 4-6 cmH2O. Comfort settings TiMax 2.0, TiMin 0.3, Trigger -M, Cycle-M. Continue using ResMed N20 nasal mask interface. ferrous sulfate 325 mg (65 mg iron) tablet Take 325 mg by mouth twice daily with meals. multivit-min/iron/folic acid/K (BARIATRIC MULTIVITAMINS ORAL) Take 1 capsule by mouth once daily. Patient should start on January 28, 2024. fluticasone (FLONASE) 50 mcg/actuation nasal spray Use 2 Sprays in each nostril once daily. (Patient taking differently: Use 2 Sprays in each nostril as needed for cold/allergy symptoms.) COMPOUNDED PRESCRIPTION Initiate BiPAP @ 15/9 cm of water with humidification. Mask (per patient preference) optional chin strap (if indicated) , filters, tubing, humidifier and lifetime supplies. Dx. ABDI 327.23 polyethylene glycol 3350(MIRALAX 100 % ORAL POWDER) 17 grams/8 0z water daily (Patient taking differently: 17 grams/8 0z water daily by mouth daily for constipation) insulin lispro (HUMALOG KWIKPEN INSULIN) 200 unit/mL (3 mL) injection INJECT UP TO 165 UNITS SUBCUTANEOUSLY DAILY. ascorbic acid, vitamin C, (VITAMIN C) 500 mg tablet Take 1 tablet by mouth once daily for 21 days. aspirin, enteric coated (ASPIRIN, ENTERIC COATED) 81 mg EC tablet Take 1 tablet by mouth two times a day. lidocaine (LIDODERM) 5 % Apply 1 Patch as directed every 12 hours. Remove old patch prior to placing new patch. Location: arms, left rib. 12 hours on, 12 hours off. Blood-Glucose Transmitter (DEXCOM G6 TRANSMITTER) claudia change every 3 weeks BIPAP [DISCONTINUED] calcium citrate (CITRACAL ORAL) Take 2 tablets by mouth two times a day. NOT TAKING Patient should start on January 26, 2024. HISTORIES PAST MEDICAL HISTORY Diagnosis Date (HFpEF) heart failure with preserved ejection fraction (HCC) 06/23/2015 Dr. 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) 02/06/2015 Coronary artery calcification seen on CAT scan 01/21/2013 Depressive disorder 03/31/2016 Diverticulosis 08/23/2010 Diverticulosis of colon (without mention of hemorrhage) Edema GERD without esophagitis 09/02/2019 Hearing loss HTN (hypertension) 08/12/2014 Hypertensive kidney disease with stage 3a chronic kidney disease (HCC) 08/12/2014 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) 06/30/2020 Ingrown toenail Morbid obesity (HCC) Obstructive sleep apnea CPAP Other and unspecified hyperlipidemia Other dyspnea and respiratory abnormality Palpitations Primary osteoarthritis of both hips 08/18/2020 Rosacea Symptomatic menopausal or female climacteric states 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 Type II or unspecified type diabetes mellitus without mention of complication, not stated as uncontrolled 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 07/10/2018 Unspecified intestinal obstruction 10/2018 FAMILY HISTORY Problem Relation Age of Onset COPD Mother at 64 yoa Ischemic Heart Disease Father Mi at 61 yoa Hypertension Sister 2 years younger Coronary Artery Disease Sister Stroke Sister Diabetes Sister GI Brother cirrhosis other (AAA rupture) Brother Lung cancer, 49 yoa other (parkinson) Son 41 Diabetes Maternal Aunt Cancer Paternal Aunt Cervical cancer Diabetes Paternal Aunt Heart Paternal Uncle Diabetes Paternal Grandfather Anesthesia Problems No Family History SOCIAL HISTORY Social History Tobacco Use Smoking status: Former Packs/day: 2.00 Years: 15.00 Additional pack years: 0.00 Total pack years: 30.00 Types: Cigarettes Quit date: 09/10/1991 Years since quittin.5 Smokeless tobacco: Never Vaping Use Vaping Use: Never used Substance Use Topics Alcohol use: No Drug use: No PHYSICAL EXAMINATION BP 109/63 Pulse 104 Resp 18 Wt 84.6 kg (186 lb 9.6 oz) LMP 06/27/2011 SpO2 100% BMI 35.83 kg/m MoCA deferred GENERAL EXAM: General appearance: NAD, pleasant. HEENT: NC/AT, nasal congestion absent, no oral lesions, membranes moist. NECK: No masses, supple. Lungs: Breathing comfortably Extr: Moves all extremities without difficulty Skin: Cool to touch. No rash. NEUROLOGICAL EXAM: General: Awake, alert, oriented x3 (person,place,time), speech fluent, no dysarthria. Often times will say the wrong word, for instance patient states that she liked to complete word searches but called the word researches. Poor short-term memory CN: PERRL, EOMI and without nystagmus, VFF to confrontation, facial sensation and strength are normal and symmetric, hearing is intact to finger rub bilaterally, palate and tongue movements are intact and symmetric. SCM and trapezius strength normal. Motor: Normal tone, bulk Reflexes: Not tested Coordination:No tremors. Sensation: No evidence of neglect. Gait: Narrow based and stable with normal stride and arm swing. Assessment and Plan: ASSESSMENT/PLAN: 1. Dyspnea on exertion - ICD9: 786.09, ICD10: R06.09 (primary diagnosis) 2. Bilateral lower extremity edema - ICD9: 782.3, ICD10: R60.0 Edema has significantly improved, echocardiogram is stable from previous and ultrasound of the lower extremities was negative for any acute DVT. Has been on primary care and is compliant with her Lasix with improvement of her edema. No new concerns with this. 3. ABDI on CPAP - ICD9: 327.23, ICD10: G47.33 Has difficulty with compliance, notes that she has a lot of congestion at night which makes wearing her CPAP difficult. Is compliant about once a month. Discussed risks of untreated sleep apnea. 4. Dementia without behavioral disturbance, psychotic disturbance, mood disturbance, or anxiety, unspecified dementia severity, unspecified dementia type (HCC) - ICD9: 294.20, ICD10: F03.90 Overall patient and family feel memory is stable at this time with some minimal decrease in word recall. Discussed conservative therapies to deal with this at length with patient and family. Patient is compliant with her Namenda 10 mg twice daily, did not tolerate Aricept in the past. Discussed possible referral to brain health for further treatments and evaluation the patient and family deferring at this time. Patient easily tearful and MoCA was deferred. Encouraged conservative therapy including increasing physical activity, cognitive activity and socialization. Patient's sleep is relatively stable, occasionally will have some nights where she has difficulty sleeping but no sundowning or wandering at night. No significant behavioral changes. lives with patient and is able to help with ADLs. No new symptoms that would warrant additional workup at this time, patient otherwise doing well. Will follow-up in 3 to 4 months or sooner should any symptoms change or worsen. Kenzie Fairbanks PA-C I spent a total of 45 minutes on the date of the service which included preparing to see the patient, [id number] patient care, completing clinical documentation, obtaining and/or reviewing separately obtained history, performing a medically appropriate examination, and counseling and educating the patient/family/caregiver. This document has been created with the use of voice recognition technology. It may contain inaccuracies: (e.g. misspellings, inaccurate syntax or word sense) that have escaped review. documented in this encounter [facility] 03-06-2024 History of Present illness Narrative CDM Telephonic Outreach Provider Action/FYI Contacted for: Routine Telephonic Outreach Contact made with patient: No, left message. Catherine Pompa RN March 06, 2024 12:31 PM Care Coordination next call- CHF,CKD,DM Dementia lvm x 4 Last CDM outreach contact: 01/09/24- No CDM concerns. BS low at appt today. Pt does not get any symptoms, but did seem sleepy at appt. Spouse states dexcom not working accurately. Now using finger stick. Pt ate lunch when she got home. Pt did not recheck BS. Recommended to to recheck BS and if low to contact PCP or Endo. Baseline: 11/14/23 ADL, FALL, GOAL due: 08/22/24 . Chronic disease goal - 02/02/23 -chf/ckd 08/22/23-reviewed zones/management Goal assessment: 11/14/23 SDOH transportation and food insecurity completed: 02/02/23 Recent admit, ED, observation: Admit 01/20- [facility] DC 01/23 with [facility] Telephonic Outreach Provider Action/FYI Contacted for: Routine Telephonic Outreach Contact made with patient: No, left message. Catherine Pompa RN March 06, 2024 9:29 AM documented in this encounter [facility] 03-04-2024 Telephone encounter Note Requester: Patient Patients last Endocrinology visit occurred 02/14/24. Follow-up evaluation has been established 05/15/24. Requested Prescriptions Pending Prescriptions Disp Refills insulin aspart U-100 (NOVOLOG FLEXPEN U-100 INSULIN) 100 unit/mL (3 mL) 37.8 mL 0 Sig: Inject 14 Units subcutaneously three times a day before meals. 14 in AM, 14 at lunch, 14 at supper, 10 at bed, plus extra based on sugars, max daily dose 100 units plus sliding scale If patient is due for an appointment please route to provider for refill consideration and also to the endo scheduling pool. PSS NOTE: Patient needs scheduled appointment No [facility] 03-04-2024 Miscellaneous Notes Requester: Patient Patients last Endocrinology visit occurred 02/14/24. Follow-up evaluation has been established 05/15/24. Requested Prescriptions Pending Prescriptions Disp Refills insulin aspart U-100 (NOVOLOG FLEXPEN U-100 INSULIN) 100 unit/mL (3 mL) 37.8 mL 0 Sig: Inject 14 Units subcutaneously three times a day before meals. 14 in AM, 14 at lunch, 14 at supper, 10 at bed, plus extra based on sugars, max daily dose 100 units plus sliding scale If patient is due for an appointment please route to provider for refill consideration and also to the endo scheduling pool. PSS NOTE: Patient needs scheduled appointment No documented in this encounter [facility] 03-03-2024 Telephone encounter Note Requester: Pharmacy Patients last Endocrinology visit occurred 02/14/2024 by Max Best MD. Follow-up evaluation has been established Upcoming Endocrinology Appointments - Next 365 Days Visit Type Date Time Department VIDEO SPEC DIRECT SCHED 05/15/2024 1:20 PM ENDO [facility] . Requested Prescriptions Pending Prescriptions Disp Refills insulin lispro (HUMALOG KWIKPEN INSULIN) 200 unit/mL (3 mL) injection [Pharmacy Med Name: HumaLOG KwikPen 200 UNIT/ML Subcutaneous Solution Pen-injector] 75 mL 0 Sig: INJECT UP TO 165 UNITS SUBCUTANEOUSLY DAILY. If patient is due for an appointment please route to provider for refill consideration and also to the endo scheduling pool. PSS NOTE: Patient needs scheduled appointment No [facility] 03-03-2024 Miscellaneous Notes Requester: Pharmacy Patients last Endocrinology visit occurred 02/14/2024 by Max Best MD. Follow-up evaluation has been established Upcoming Endocrinology Appointments - Next 365 Days Visit Type Date Time Department VIDEO SPEC DIRECT SCHED 05/15/2024 1:20 PM ENDO [facility] . Requested Prescriptions Pending Prescriptions Disp Refills insulin lispro (HUMALOG KWIKPEN INSULIN) 200 unit/mL (3 mL) injection [Pharmacy Med Name: HumaLOG KwikPen 200 UNIT/ML Subcutaneous Solution Pen-injector] 75 mL 0 Sig: INJECT UP TO 165 UNITS SUBCUTANEOUSLY DAILY. If patient is due for an appointment please route to provider for refill consideration and also to the endo scheduling pool. PSS NOTE: Patient needs scheduled appointment No documented in this encounter [facility] 03-03-2024 Telephone encounter Note Edward, patient's , following up with request for patient's insulin. Edward states that patient is out of her insulin today and is requesting a call back at [phone] Thank you [facility] 03-03-2024 Miscellaneous Notes Edward, patient's , following up with request for patient's insulin. Edward states that patient is out of her insulin today and is requesting a call back at [phone] Thank you Sir, please see pt message and advise. documented in this encounter [facility] 02-21-2024 Telephone encounter Note Sir, please see pt message and advise. [facility] 02-18-2024 Telephone encounter Note Record ID: [id number] Patient name: Bhakti Kirkpatrick Date: February 18, 2024 - 08:07 Administered by: EMILY Protocol: -> Great! Now we are in a secure chat environment. Protecting your health information is important to us. Ok, let's get started. Please verify your name and date of . Please click on the button with your first name. -> Bhakti Got it. On to the next question... Select the button with your last name. -> Shanell Got it, thank you. Please enter your date of in MM/DD/YYYY format:(e.g., 09/28/1967 for Sep 28, 1967) -> 1945 Thank you for verifying your information. I'd like to ask you a few questions about how your recovery is going. One final check: have you experienced any new or worsening symptoms since your last response? -> No I'm glad to hear that. Thank you for your time and for allowing us to care for you. Please be sure to reach out to your provider for any further symptoms or needs. Please rate your satisfaction with the care and support you have received from us since you have been home: (scale 1-5; 1 worst and 5 best) -> 5 Please tell me what you liked best about your experience: -> knowledge someone else cares Please tell me what you liked least about your experience: -> nothing [facility] 02-18-2024 Miscellaneous Notes Record [id number]: [id number] Patient name: Bhakti Kirkpatrick Date: February 18, 2024 - 08:07 Administered by: EMILY Protocol: -> Great! Now we are in a secure chat environment. Protecting your health information is important to us. Ok, let's get started. Please verify your name and date of . Please click on the button with your first name. -> Bhakti Got it. On to the next question... Select the button with your last name. -> Shanell Got it, thank you. Please enter your date of in MM/DD/YYYY format:(e.g., 09/28/1967 for Sep 28, 1967) -> 1945 Thank you for verifying your information. I'd like to ask you a few questions about how your recovery is going. One final check: have you experienced any new or worsening symptoms since your last response? -> No I'm glad to hear that. Thank you for your time and for allowing us to care for you. Please be sure to reach out to your provider for any further symptoms or needs. Please rate your satisfaction with the care and support you have received from us since you have been home: (scale 1-5; 1 worst and 5 best) -> 5 Please tell me what you liked best about your experience: -> knowledge someone else cares Please tell me what you liked least about your experience: -> nothing documented in this encounter [facility] 02-15-2024 History of Present illness Narrative Images from the original note were not included. Ortho Hip Follow Up Note Narrative Referring Provider: No referring provider defined for this encounter. PCP: Jesus Davila MD IMPRESSION/PLAN: Impressions indicate: 78 year old s/p Left Total Hip Replacement completed on 01/21/2024. Recent Surgeries this specialty 01/21/2024 (3w, 4d) ARTHROPLASTY REPLACE JOINT TOTAL HIP (Left) Clyde Beltran MD; Tian Yoder MD; Denis Calhoun MD - Posted 08/18/2014 (9yr) ARTHROPLASTY REPLACE JOINT TOTAL KNEE (Left) Rakesh Mora MD - Posted 08/18/2014 (9yr) ARTHROPLASTY REPLACE JOINT TOTAL KNEE (Left) Rakesh Mora MD - Posted 06/12/2012 (11yr) ARTHROPLASTY REPLACE JOINT TOTAL KNEE (Right) Rakesh Mora MD - Posted PAIN EVALUATION 02/14/2024 0706 Pain Level: 8 Pain Location: Back-Lower Description: Raw;Throbbing Duration Amount of Time: 2 Duration Units: Hours Frequency: Continuous Intervention/Comfort measure: Medication Comments: lower back pain not associated with surgery IMPRESSION: Post op delirium, resolved Excellent early outcomes. PLAN: No new treatment indicated: Routine follow-up. Continue current conservative treatment. Patient Reassurance: Progress appears to be with the normal speed of recovery. Patient reassured and supported. All questions answered. Follow up 5 months No X-Rays Needed ACTIVE PROBLEM LIST Edema Abdi Treated With Bipap Arteriosclerotic Heart Disease (Ashd) Hypertensive Heart Disease With Heart Failure and Stage 4 Chronic Kidney Disease (Hcc) Degenerative Arthritis of Knee Myalgia Hyperlipidemia (Hfpef) Heart Failure With Preserved Ejection Fraction (Hcc) Fatty Liver History of Thyroid Cancer Type 2 Diabetes Mellitus With Stage 4 Chronic Kidney Disease, With Long-Term Current Use of Insulin (Hcc) Depression, Recurrent (Hcc) Chronic Kidney Disease, Stage IV (Severe) (Hcc) S/P Laparoscopic Sleeve Gastrectomy Gerd Without Esophagitis Sensory Hearing Loss, Bilateral Class 3 Severe Obesity With Body Mass Index (Bmi) of 45.0 to 49.9 in Adult (Hcc) Type 2 Diabetes Mellitus With Diabetic Neuropathy, With Long-Term Current Use of Insulin (Hcc) Primary Osteoarthritis of Both Hips Vertigo Cognitive Impairment Circadian Rhythm Sleep Disorder, Irregular Sleep Wake Type Anemia Acute Gout Dysuria Urinary Frequency Cloudy Urine Obesity, Class II, Bmi 35-39.9 Arthritis of Left Hip Slow Heart Rate HPI: Bhakti Kirkpatrick presents today for a routine 1st post-op visit. STATUS POST: BMI: There is no height or weight on file to calculate BMI. Post operative recovery was complicated by uneventful/none. Readmission(s) since surgery (90 days post)? No ED Visits & Hospitalizations - Last 180 days 01/21/24 Clyde Beltran MD, [id number] Acute post-operative pain ..., Admission (Discharged) Patient rates their condition as improving. Does the patient still experience pain? No. Post Op discharge patient location: in home. Functional Assessment is as follows: completed home PT and is ready to begin outpatient PT. Functional difficulties: None. Pain Medication: None 05/09/2021 05/10/2021 07/08/2021 Physical Therapy Data Therapist that will oversee plan of care Luisito Campoverde Prognosis Excellent Good Good Frequency 1x/week 1x/week 1x/week Duration 4 weeks 4 weeks 8 weeks Total number of visits 4 4 8 Planned treatment interventions Therapeutic exercise (01195);Canalith Repositioning Maneuvers (85177);Manual therapy (21310);Neuromuscular re-education (03712) Therapeutic exercise (62310);Canalith Repositioning Maneuvers (18439);Manual therapy (12149);Neuromuscular re-education (92541) Therapeutic exercise (76224);Neuromuscular re-education (12126);Manual therapy (78169);Therapeutic activities (02040);Self-residential management (69618);Gait Training (81928);Patient/Family/Caregiver Education;Canalith Repositioning Maneuvers (38184) Plan for next visit Transfer of Care retest VNG and treat accordingly retest VNG and treat accordingly. Assess cervical spine as warranted for neck pain transfer of care due to Specialty Service specialty service Vestibular rehab patient transferring care to Janeth Moses or Alpa Boyce = EXAM: POST OP HIP = LEFT POST-OPERATIVE HIP SKIN: Appropriate postop appearance. Range of Motion: Pain Free Neurovascular Status: Sensation Intact and Moves foot and ankle up & down Gait: Antalgic to the left and Ambulatory Aid: a wheelchair IMAGING: X-ray Hips: Post op There is no evidence of loosening. Provider: Akilah Rowe PA-C Completed by: BRITTNEY Cam documented in this encounter [facility] 02-14-2024 Miscellaneous Notes SITUATION: spouse present during today's visit. patient and caregiver reports the following since the last homecare visit: medications/allergies--no changes, no fall. patient reports she has been using cane for all her walking in home. She is still using the walker for outings. Spouse assists her with HEP BID . BACKGROUND: Diagnoses (reason for Home Care): LTHR Weight Bearing/Precaution Changes: posterior ASSESSMENT: Focus of visit: ther ex, gait, transfers, steps Physical therapy discharged: goals achieved. Functional performance at discharge - bed mobility independent, transfers independent, ambulation independent and stairs stand by assist. Plan of care, goals, and discharge reviewed and agreed upon with patient and/or caregiver. RECOMMENDATION: Patient discharged from home health services. Instructions to include:home exercise program as directed See intervention summary for intervention/education details. documented in this encounter [facility] 02-14-2024 Patient's home Note SITUATION: spouse present during today's visit. patient and caregiver reports the following since the last homecare visit: medications/allergies--no changes, no fall. patient reports she has been using cane for all her walking in home. She is still using the walker for outings. Spouse assists her with HEP BID . BACKGROUND: Diagnoses (reason for Home Care): LTHR Weight Bearing/Precaution Changes: posterior ASSESSMENT: Focus of visit: ther ex, gait, transfers, steps Physical therapy discharged: goals achieved. Functional performance at discharge - bed mobility independent, transfers independent, ambulation independent and stairs stand by assist. Plan of care, goals, and discharge reviewed and agreed upon with patient and/or caregiver. RECOMMENDATION: Patient discharged from home health services. Instructions to include:home exercise program as directed See intervention summary for intervention/education details. [facility] Work Phone: 02-14-2024 Telephone encounter Note 1st attempt Sent to schedule Maria T Ibarra [facility] 02-14-2024 Miscellaneous Notes 1st attempt Sent to schedule Maria Tjag Ibarra documented in this encounter [facility] 02-14-2024 Instructions Max Best MD - 02/14/2024 2:12 PM EDT Assessment / Plan Problem: 1) Diabetes type 2, sugar control continues to be quite good, best I have seen with her. No change in Rx needed. 2) s/p Hip replacement, 3wks out from left total hip arthroplasty (Dr. Clyde Beltran) 3) Surgical hypothyroidism, TSH a little suppressed, likely because of weight loss, I will drop her dose of levothyroxine from 7.5/wk to daily of 175 mcg dose. 4) Thyroid CA dx 2010, TG undetectable, doing well. 5) Suggested RSV vaccine Unchanged 1) Mixed hyperlipidemia, should get better with better sugar control 2) s/p Sleeve gastrectomy 3) CKD stage 3-4, following with Dr. María Vance 4) ABDI, has new BiPAP, using every night, and also with naps as much as possible (sometimes will fall asleep unexpectedly just sitting in a chair). Treatment / Plan: 1) decrease the levothyroxine 175 mcg to once a day 2) return to me in 3 months by virtual visit with labs beforehand 3) return in [address] Blake Early in person Max Best MD documented in this encounter [facility] 02-14-2024 History of Present illness Narrative Images from the original note were not included. Virtual Visit utilizing both audio and video components MyChart-Zoom I have communicated my name and active licensure. The patient's identity and physical location were verified at the time of this visit. Either the patient or their legal patient portal representative has been informed of the risks and benefits of -- and alternatives to -- treatment through a remote evaluation and consents to proceed with the evaluation remotely. Patient location: at home, [facility] Assessment / Plan Problem: 1) Diabetes type 2, sugar control continues to be quite good, best I have seen with her. No change in Rx needed. 2) s/p Hip replacement, 3wks out from left total hip arthroplasty (Dr. Clyde Beltran) 3) Surgical hypothyroidism, TSH a little suppressed, likely because of weight loss, I will drop her dose of levothyroxine from 7.5/wk to daily of 175 mcg dose. 4) Thyroid CA dx 2009, TG undetectable, doing well. 5) Suggested RSV vaccine Unchanged 1) Mixed hyperlipidemia, should get better with better sugar control 2) s/p Sleeve gastrectomy 3) CKD stage 3-4, following with Dr. María Vance 4) ABDI, has new BiPAP, using every night, and also with naps as much as possible (sometimes will fall asleep unexpectedly just sitting in a chair). Treatment / Plan: 1) decrease the levothyroxine 175 mcg to once a day 2) return to me in 3 months by virtual visit with labs beforehand 3) return in [address] Blake Early in person Max Best MD Data Review: iPhone=Tynt [phone] [employer] share code XZPM NXLR DNKG Component Latest Ref Rng & Units 01/05/2023 10/19/2023 Thyroglobulin Ab, Serum <4.0 IU/mL <0.9 Thyroglobulin, Serum 1.6 - 50.0 ng/mL <0.1 (L) Free T4 0.9 - 1.7 ng/dL 1.4 1.8 (H) TSH 0.270 - 4.200 mIU/L 0.976 0.206 (L) History Diabetes type 2, insulin doses currently: Toujeo 24-24, Humalog 15-15-15 + ss no issues of low or high sugars. Hypothyroidism continues to take 175 mcg x 7.5/wk. s/p COVID vaccine x 4 Diabetes History Type (2003): dx diabetes type 2 Control hx Component Hemoglobin A1C Latest Ref Rng & Units 4.3 - 5.6 % 08/29/2019 6.8 02/20/2020 7.5 (H) 06/10/2020 8.2 (H) 12/17/2020 6.0 05/31/2021 7.2 (H) 11/28/2021 6.2 (H) 01/31/23 6.6 Testing freq (11/11/15): 4x/d Eye hx (07/2015): no DM changes per pt (10/2022): no DM changes per pt Renal hx Component Albumin/Creat Ratio Latest Ref Rng 0 - 30 mg/g 02/16/2010 10 07/05/2010 9 05/08/2011 13 08/08/2013 9 02/02/2015 17 Component BUN Creatinine Latest Ref Rng & Units 7 - 21 mg/dL 0.58 - 0.96 mg/dL 09/13/2015 18 0.91 03/09/2016 16 1.01 06/07/2016 14 0.88 09/08/2017 30 (H) 1.40 (H) 03/27/2018 38 2.01 04/01/2018 27 1.68 12/02/2018 26 1.02 (04/02/18): 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 follows her Liver hx Component Bilirubin, Total Alkaline Phosphatase AST ALT Latest Ref Rng 0.0 - 1.5 mg/dL 40 - 150 U/L 7 - 40 U/L 0 - 45 U/L 07/02/2014 0.2 93 84 (H) 68 (H) 09/21/2014 0.3 74 26 24 06/23/2015 0.3 97 56 (H) 68 (H) 06/24/2015 0.3 89 57 (H) 72 (H) BP hx Vitals 06/24/2015 06/30/2015 09/04/2015 09/13/2015 11/11/2015 SITTING BP 121/64 104/67 120/70 130/80 100/62 (11/11/15): lisinopril 2.5 mg/d, metoprolol 25 mg 2x/d, Neuro hx (11/11/15): numb tingling dysesthesias in feet and legs, gets shaky sweaty with hypoglycemia Vascular hx (11/11/15): no hx [place], stroke Component Latest Ref Rng 02/20/2014 07/02/2014 09/24/2014 Triglyceride 30 - 149 mg/dL 133 134 158 (H) Cholesterol 100 - 199 mg/dL 170 189 186 HDL Cholesterol >55 mg/dL 53 (L) 62 45 (L) LDL Cholesterol 60 - 129 mg/dL 90 100 109 Non HDL Cholesterol 90 - 159 mg/dL 117 127 141 (11/11/15): niacin CR 500 mg 2x/d (06/02/19): no Rx lipids Sleep hx (11/11/15): has ABDI, on BiPAP, never sleeps without it (05/26/16): using BiPAP ever night Exercise hx (11/11/15): no exercise Medications (11/11/15): Victoza 1.8 mg daily, glimepiride 2 mg: AM=1, PM=12, metformin 500 mg ii-i-ii, sliding scale Humalog, using 1-3 units at a time. (05/26/16): Lantus 10 units, Victoza 1.8 mg/d, glimepiride 2 mg: AM=1, PM=1/2, metformin 500 mg ii-i-ii (11/28/16): Lantus 10 units, Victoza 1.8 mg/d, glimepiride 2 mg: AM=1, PM=12, metformin 500 mg ii-i-ii (04/16/17): Lantus 15 units at bed, Victoza 1.8 mg/d, glimepiride 2mg 2x/d, metformin 500 mg ii-i-ii (05/30/17): Lantus 28 units at bed, and meal Humalog 9-9-9-9 (i.e. taking another 9 units at bedtime snack), Victoza 1.8 mg/d, glimepiride 2mg 2x/d, metformin 500 mg ii-i-ii (06/05/17): Levemir 17 units twice a day, and meal Humalog 12-11-10, plus sliding scale (09/11/17): Levemir 17 AM and HS, meal Humalog 12-11-10-9 (last is for snack), plus sliding scale1 per 20, goal 120 (12/18/17): Levemir 12 units AM & HS, Humalog 8-8-7-6 plus sliding scale, metformin 500mg 2-1-1 (04/02/18): Levemir 12 units AM and HS, and Humalog 8-8-7-6 plus sliding scale, has stopped metformin (05/27/18): Levemir 22 units AM and HS, and Humalog 15-12-14-11 (08/27/18): Levemir 34 units 2x/d, Humalog 18-15-18-15 (12/04/18): Levemir 34 units 2x/d, Humalog 18-15-18-11 (03/06/19): Levemir 17 units in AM, 19 units in PM. 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 Jamey Ibrahim, [facility] Pathology (10/29/09): FNA Atypical cells present in a background of cyst contents, suspicious for papillary thyroid carcinoma (12/15/09): single well-circumscribed nodule in the right inferior lobe, which measured 3.5 cm in greatest dimension. The nodule was extensively hemorrhagic and cystic with a rim of viable material which ranges in appearance from papillary architecture to follicular structures. There is no evidence of a higher grade component. There is no definitive lymphovascular space invasion identified. In some areas, the tumor cells have oncocytic cytoplasm, however, the cells do not meet criteria for tall-cell variant of papillary thyroid carcinoma. Scan (02/24/10): post-Rx 131-Iodine scan, SIDDIQI (02/16/10): Rx 102.4 mCi 131-Iodine Thyroglobulin Component Thyroglobulin TG Antibody Screen Latest Ref Rng & Units 0.8 - 49.0 ng/mL <14.4 IU/mL 11/05/2009 75.7 (H) 1.0 01/18/2010 <0.2 (L) 1.1 02/16/2010 0.3 (L) 1.0 07/05/2010 <0.2 (L) 1.3 12/27/2010 <0.2 (L) 1.3 05/08/2011 <0.2 (L) 1.1 07/24/2011 <0.2 (L) 1.5 01/23/2012 <0.2 (L) 1.0 07/27/2012 <0.2 (L) <1.0 02/18/2013 <0.2 (L) <1.0 08/12/2013 <0.2 (L) <1.0 02/16/2014 <0.2 (L) <1.0 09/24/2014 <0.2 (L) <1.0 03/08/2015 <0.2 (L) 1.3 12/10/2015 <0.2 (L) <1.0 05/25/2016 <0.2 (L) <1.0 11/15/2016 <0.2 (L) 1.3 Vitamin D Component Vitamin D 25 Hydroxy Latest Ref Rng 31.0 - 80.0 ng/mL 01/18/2010 39.7 01/17/2011 48.1 07/24/2011 50.6 01/23/2012 40.2 02/18/2013 43.0 08/12/2013 40.0 02/16/2014 39.5 09/24/2014 36.0 Ultrasound (01/18/10): no suspicious adenopathy along great vessels or in lateral neck on either side. No masses in thyroid bed. (11/11/15): no suspicious adenopathy along great vessels or in lateral neck on either side. No masses in thyroid bed. (11/28/16): no suspicious adenopathy along great vessels or in lateral neck on either side. No masses in thyroid bed. ROS PHYSICAL EXAM PAST MED / SURG / FAMILY / SOCIAL HISTORY PAST MEDICAL HISTORY Diagnosis Date (HFpEF) heart failure with preserved ejection fraction (HCC) 06/23/2015 Dr. 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) 02/06/2015 Coronary artery calcification seen on CAT scan 01/21/2013 Depressive disorder 03/31/2016 Diverticulosis 08/23/2010 Diverticulosis of colon (without mention of hemorrhage) Edema GERD without esophagitis 09/02/2019 Hearing loss HTN (hypertension) 08/12/2014 Hypertensive kidney disease with stage 3a chronic kidney disease (HCC) 08/12/2014 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) 06/30/2020 Ingrown toenail Morbid obesity (HCC) Obstructive sleep apnea CPAP Other and unspecified hyperlipidemia Other dyspnea and respiratory abnormality Palpitations Primary osteoarthritis of both hips 08/18/2020 Rosacea Symptomatic menopausal or female climacteric states 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 Type II or unspecified type diabetes mellitus without mention of complication, not stated as uncontrolled 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 07/10/2018 Unspecified intestinal obstruction 10/2018 PAST SURGICAL HISTORY Procedure Laterality Date APPENDECTOMY 05/20/2001 open ARTHRP KNE CONDYLE&PLATU MEDIAL&LAT COMPARTMENTS Left 08/18/2014 Knee replacement, total left ARTHRP KNE CONDYLE&PLATU MEDIAL&LAT COMPARTMENTS Right 06/12/2012 total right knee arthroplasty ; THYROIDECTOMY TOTAL OR COMPLETE Bilateral 12/15/2009 Papillary Ca CHOLECYSTECTOMY 05/20/2001 Cholecystectomy-lap COLONOSCOPY FLX DX W/COLLJ SPEC WHEN PFRMD 06/06/2004 COLONOSCOPY FLX DX W/COLLJ SPEC WHEN PFRMD 08/23/2010 EXCISION EXCESSIVE SKIN & SUBQ TISSUE OTHER AREA 01/17/2002 Abdominoplasty EXPLORATORY LAPAROTOMY, CELIOTOMY-SP 06/24/2020 Takedown of enteroprosthetic fistula.Small bowel resection anastosmosis. Removal infected mesh. Recurrent vental hernia repair. HIP ARTHROSCOPY W/SYNOVECTOMY Right 09/19/2021 exc.seroma; gluteus repair; rotium augmentation; trochanteric bursectomy, iliotibial band resection LAPAROCOPIC SLEEVE GASTRECTOMY 03/10/2019 Extensive laparoscopic lysis of adhesions. EGD. Lap. TAP block. LEFT HEART CATH,PERCUTANEOUS 09/13/2017 no significant CAD NEPHRECTOMY PARTIAL Right 03/1991 Right side for benign tumor, small lesion removed REPAIR FIRST ABDOMINAL WALL HERNIA 09/25/2005 7 times total RPR 1ST INCAL/VNT HERNIA INCARCERATED 06/11/2007 with mesh TOTAL ABDOMINAL HYSTERECT W/WO RMVL TUBE OVARY 05/20/2001 PER, for fibroids and BSO TOTAL HIP REPLACEMENT Right 10/20/2020 anterior minimally invasive right total hip FAMILY HISTORY Problem Relation Age of Onset COPD Mother at 64 yoa Ischemic Heart Disease Father Mi at 61 yoa Hypertension Sister 2 years younger Coronary Artery Disease Sister Stroke Sister Diabetes Sister GI Brother cirrhosis other (AAA rupture) Brother Lung cancer, 49 yoa other (parkinson) Son 41 Diabetes Maternal Aunt Cancer Paternal Aunt Cervical cancer Diabetes Paternal Aunt Heart Paternal Uncle Diabetes Paternal Grandfather Anesthesia Problems No Family History Social History Tobacco Use Smoking status: Former Packs/day: 2.00 Years: 15.00 Additional pack years: 0.00 Total pack years: 30.00 Types: Cigarettes Quit date: 09/10/1991 Years since quittin.4 Smokeless tobacco: Never Vaping Use Vaping Use: Never used Substance Use Topics Alcohol use: No Drug use: No MEDICATIONS & ALLERGIES Prior to Admission Medications: Current Outpatient Prescriptions on File Prior to Visit: HYDROcodone-Acetaminophen (NORCO) 10-325 mg per tablet Take 1 tablet by mouth every 6 hours as needed for Pain. fluticasone (FLONASE) 50 mcg/actuation nasal spray Use 2 Sprays in each nostril once daily. codeine-guaiFENesin (ROBITUSSIN AC) 10-100 mg/5 mL syrup Take 5-10 mL by mouth four times daily as needed for Cough. May cause drowsiness. furosemide (LASIX) 20 mg tablet Take 1 tablet by mouth twice daily. LORazepam (ATIVAN) 0.5 mg tab Take 1 tablet by mouth twice daily as needed. gabapentin (NEURONTIN) 300 mg capsule 2 AT HS AND ONE IN AM potassium chloride (K-TAB) 10 mEq tablet Take 1 tablet by mouth once daily. nitroglycerin sublingual (NITROQUICK) 0.4 mg SL tablet Dissolve 1 tablet under the tongue as needed. FOR CHEST PAIN. IF NO RELIEF CALL 911 Insulin Lispro, Human, (HUMALOG KWIKPEN) 100 unit/mL inpn 1-9 units before mealtime and at bedtime, according to sliding scale Insulin Wales, Disposable, (TIFFANIE PEN NEEDLE) 32 x 5/32 ndle use 4 times a day with Humalog pen blood sugar diagnostic (ACCU-CHEK SMARTVIEW TEST STRIP) test strip Use as instructed to test blood glucose 4 times daily (sugars currently uncontrolled, CKD stage 3) glimepiride (AMARYL) 2 mg tablet 1 pill in morning, and 1/2 pill at supper Lancets lancets Testing twice a day. DX:250.00 SYNTHROID 175 mcg tablet Take 1 tablet by mouth once daily. Take 8 tablets per week metFORMIN (GLUCOPHAGE) 500 mg tablet Take by mouth. take 2 in the morning, 1 at supper, 1 at bedtime lisinopril 2.5 mg tablet Take 1 tablet by mouth once daily. liraglutide (VICTOZA 3-DEVIN) 0.6 mg/0.1 mL (18 mg/3 mL) pnij Inject 1.8 mg subcutaneously once daily. metoprolol tartrate, short acting, (LOPRESSOR) 25 mg tablet Take 1 tablet by mouth twice daily. blood sugar diagnostic (CONTOUR TEST STRIPS) test strip Test blood sugar(s) 4 times daily. Dx: 250.0. Insulin: No niacin 500 mg CR capsule Take 1 capsule by mouth twice daily. jgezv-1m-hfq-epa-fish oil-D3 360 mg-1,200 mg -1,000 unit cap Take by mouth three times daily. Insulin Wales, Disposable, (PEN NEEDLE) 29 x 1/2 ndle Use 1 time daily with injectable pen glimepiride (AMARYL) 1 mg tablet Take 1 tablet by mouth once daily. As directed (Patient taking differently: Take 2 mg by mouth once daily. As directed) COMPOUNDED PRESCRIPTION Initiate BiPAP @ 15/9 cm of water with humidification. Mask (per patient preference) optional chin strap (if indicated) , filters, tubing, humidifier and lifetime supplies. Dx. ABDI 327.23 diphenhydrAMINE (BENADRYL ALLERGY) 25 mg tablet Take 1 tablet by mouth every 6 hours as needed for Itching/Rash. COMPOUNDED PRESCRIPTION Pen Needle BD Ultra Fine 29 g 12.7 mm Twice a day as directed 250.00 insulin needles, DISPOSABLE, (PEN NEEDLE) 31 X 5/16 Ndle use as directed twice daily Omeprazole Magnesium (PRILOSEC) 10 mg SuDR Take by mouth as needed. Cholecalciferol, Vitamin D3, 1,000 unit ORAL Tab Take by mouth once daily. metroNIDAZOLE (METROGEL) 1 % TOPICAL gel Apply to affected area once daily. blood sugar diagnostic (ASCENSIA MICROFILL) Misc test strip Check before and after each meal and at hs polyethylene glycol 3350(MIRALAX 100 % ORAL POWDER) 17 grams/8 0z water daily ASA LOW DOSE 81MG TAB EC Take one(1) tablet daily. No current facility-administered medications on file prior to visit. ALLERGIES Allergen Reactions Adhesive Tape (Jamila* Other: See Comments Contact celluitis Crestor [Rosuvastat* Intolerance Lantus [Insulin Gla* Intolerance burning at local injection site Nickel Rash in jewelry; also Palladium which cross reacts with nickel in some cases. Palladium Rash Pravastatin Intolerance Muscle cramps Toradol [Ketorolac] Hives documented in this encounter [facility] 02-14-2024 Miscellaneous Notes SITUATION: Pt seated at kitchen table upon arrival in no apparent distress. Visit completed with difficulty due to pt and spouse continuously arguing throughout visit. Pt is very forgetful, and then spouse corrects her, and this makes her angry. Frequent disagreements throughout session. spouse present during today's visit. patient reports the following since the last homecare visit: medications/allergies--no changes, no fall. patient reports she had 7/10 pain in her hip last night but has no pain now. . BACKGROUND: Diagnoses or reason for Home Care: LOR ASSESSMENT: At initial evaluation on 01/31/24, pt scored a 50/100 on the Modified Bonita Index. At discharge pt is scoring 65/100 on the Modified Bonita Index. Pt requires SBA for shower transfer and is Indep with toilet transfer. Focus of visit: ADL instruction, transfer training and D/C planning Occupational therapy discharged: goals partially achieved. Functional Performance at discharge: Feeding supervision or setup assistance, Grooming supervision or setup assistance, Upper body dressing supervision or setup assistance, Lower body dressing moderate assistance, Bathing supervision or setup assistance, Toileting supervision or setup assistance and Toilet Transferring independence with shower transfer with SBA, Pt did require assist for ADL tasks due to cognition. Plan of care, goals, and discharge reviewed and agreed upon with patient/caregiver. RECOMMENDATION: Instructions include: discharged from OT and is active with PT. Post dc recommendations: continue to have assistance with ADL tasks, SBA for shower. See intervention summary for intervention/education details. documented in this encounter [facility] 02-14-2024 Patient's home Note SITUATION: Pt seated at kitchen table upon arrival in no apparent distress. Visit completed with difficulty due to pt and spouse continuously arguing throughout visit. Pt is very forgetful, and then spouse corrects her, and this makes her angry. Frequent disagreements throughout session. spouse present during today's visit. patient reports the following since the last homecare visit: medications/allergies--no changes, no fall. patient reports she had 7/10 pain in her hip last night but has no pain now. . BACKGROUND: Diagnoses or reason for Home Care: LOR ASSESSMENT: At initial evaluation on 01/31/24, pt scored a 50/100 on the Modified Bonita Index. At discharge pt is scoring 65/100 on the Modified Bonita Index. Pt requires SBA for shower transfer and is Indep with toilet transfer. Focus of visit: ADL instruction, transfer training and D/C planning Occupational therapy discharged: goals partially achieved. Functional Performance at discharge: Feeding supervision or setup assistance, Grooming supervision or setup assistance, Upper body dressing supervision or setup assistance, Lower body dressing moderate assistance, Bathing supervision or setup assistance, Toileting supervision or setup assistance and Toilet Transferring independence with shower transfer with SBA, Pt did require assist for ADL tasks due to cognition. Plan of care, goals, and discharge reviewed and agreed upon with patient/caregiver. RECOMMENDATION: Instructions include: discharged from OT and is active with PT. Post dc recommendations: continue to have assistance with ADL tasks, SBA for shower. See intervention summary for intervention/education details. [facility] Work Phone: 02-11-2024 Telephone encounter Note Patient is due for routine follow-up this month Jamee Weinstein APRN.CNP [facility] 02-11-2024 Miscellaneous Notes Patient is due for routine follow-up this month Jamee Weinstein APRN.[employer] Patient has been identified by name and date of : Yes Patient phones for refill(s): Requested Prescriptions Pending Prescriptions Disp Refills allopurinol (ZYLOPRIM) 300 mg tablet 90 tablet 1 Sig: Take 1 tablet by mouth once daily. For gout. Date of last office visit in primary care: 10/03/2023 Date of next office visit in primary care: Visit date not found Please advise. Thank you. Rocio Rodriguez MA. documented in this encounter [facility] 02-11-2024 Miscellaneous Notes SITUATION: spouse present during today's visit. patient and caregiver reports the following since the last homecare visit: medications/allergies--no changes, no fall. patient reports she has been using cane for all her walking in home. feeling stronger. BACKGROUND: Diagnoses (reason for Home Care): LTHR Weight Bearing/Precaution Changes: posterior ASSESSMENT: Focus of visit performed and progressed standing exercises for HEP. Gait training w/ cane. Issued NOMNC Plan of care, goals, and visit frequency reviewed and agreed upon with patient and/or caregiver. Current Discharge Plan: independent with home exercise program Anticipate discharge by 02/13/24 RECOMMENDATION: Next visit to focus on PT to see for DC See intervention summary for intervention/education details. documented in this encounter [facility] 02-11-2024 Patient's home Note SITUATION: spouse present during today's visit. patient and caregiver reports the following since the last homecare visit: medications/allergies--no changes, no fall. patient reports she has been using cane for all her walking in home. feeling stronger. BACKGROUND: Diagnoses (reason for Home Care): LTHR Weight Bearing/Precaution Changes: posterior ASSESSMENT: Focus of visit performed and progressed standing exercises for HEP. Gait training w/ cane. Issued NOMNC Plan of care, goals, and visit frequency reviewed and agreed upon with patient and/or caregiver. Current Discharge Plan: independent with home exercise program Anticipate discharge by 02/13/24 RECOMMENDATION: Next visit to focus on PT to see for DC See intervention summary for intervention/education details. [facility] Work Phone: 02-11-2024 Telephone encounter Note Record ID: [id number] Patient name: Bhakti Kirkpatrick Date: February 11, 2024 - 08:47 Administered by: EMILY Protocol: -> Great! Now we are in a secure chat environment. Protecting your health information is important to us. Ok, let's get started. Please verify your name and date of . Please click on the button with your first name. -> Bhakti Got it. On to the next question... Select the button with your last name. -> Shanell Got it, thank you. Please enter your date of in MM/DD/YYYY format:(e.g., 09/28/1967 for Sep 28, 1967) -> 1945 Thank you for verifying your information. I'd like to ask you a few questions about how your recovery is going. Have you noticed any new or worsening symptoms since your last check-in? -> No I'm glad to hear that. It can be normal to feel anxious or down during a time like this. Would you like to talk to a mental health professional about how you have been feeling? -> No [facility] 02-11-2024 Miscellaneous Notes Record ID: [id number] Patient name: Bhakti Kirkpatrick Date: February 11, 2024 - 08:47 Administered by: EMILY Protocol: -> Great! Now we are in a secure chat environment. Protecting your health information is important to us. Ok, let's get started. Please verify your name and date of . Please click on the button with your first name. -> Bhakti Got it. On to the next question... Select the button with your last name. -> Shanell Got it, thank you. Please enter your date of in MM/DD/YYYY format:(e.g., 09/28/1967 for Sep 28, 1967) -> 1945 Thank you for verifying your information. I'd like to ask you a few questions about how your recovery is going. Have you noticed any new or worsening symptoms since your last check-in? -> No I'm glad to hear that. It can be normal to feel anxious or down during a time like this. Would you like to talk to a mental health professional about how you have been feeling? -> No documented in this encounter [facility] 02-11-2024 Telephone encounter Note Patient has been identified by name and date of : Yes Patient phones for refill(s): Requested Prescriptions Pending Prescriptions Disp Refills allopurinol (ZYLOPRIM) 300 mg tablet 90 tablet 1 Sig: Take 1 tablet by mouth once daily. For gout. Date of last office visit in primary care: 10/03/2023 Date of next office visit in primary care: Visit date not found Please advise. Thank you. Rocio Rodriguez MA. [facility] 02-08-2024 Miscellaneous Notes SITUATION: spouse present during today's visit. patient and caregiver reports the following since the last homecare visit: medications/allergies--no changes, no fall. patient reports she is feeling good today. HOLGUIN completing her visit upon my arrival.. BACKGROUND: Diagnoses (reason for Home Care): LTHR Weight Bearing/Precaution Changes: posterior ASSESSMENT: Focus of visit gait training w/ww and cane. stair training to exit home. Car transfers. progressed to standing LE ex for HEP. Plan of care, goals, and visit frequency reviewed and agreed upon with patient and/or caregiver. Current Discharge Plan: independent with home exercise program Anticipate discharge by 02/14/24 RECOMMENDATION: Next visit to focus on NOMNC See intervention summary for intervention/education details. documented in this encounter [facility] 02-08-2024 Patient's home Note SITUATION: spouse present during today's visit. patient and caregiver reports the following since the last homecare visit: medications/allergies--no changes, no fall. patient reports she is feeling good today. HOLGUIN completing her visit upon my arrival.. BACKGROUND: Diagnoses (reason for Home Care): LTHR Weight Bearing/Precaution Changes: posterior ASSESSMENT: Focus of visit gait training w/ww and cane. stair training to exit home. Car transfers. progressed to standing LE ex for HEP. Plan of care, goals, and visit frequency reviewed and agreed upon with patient and/or caregiver. Current Discharge Plan: independent with home exercise program Anticipate discharge by 02/14/24 RECOMMENDATION: Next visit to focus on NOMNC See intervention summary for intervention/education details. [facility] Work Phone: 02-08-2024 Miscellaneous Notes SITUATION: Pt. seen for HOLGUIN Routine Visit. spouse present during today's visit. patient and caregiver reports the following since the last homecare visit: medications/allergies--no changes, no fall. patient reports She's doing pretty good. 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 Kidney Disease (Hcc) Degenerative Arthritis of Knee Myalgia Hyperlipidemia (Hfpef) Heart Failure With Preserved Ejection Fraction (Hcc) Fatty Liver History of Thyroid Cancer Type 2 Diabetes Mellitus With Stage 4 Chronic Kidney Disease, With Long-Term Current Use of Insulin (Hcc) Depression, Recurrent (Hcc) Chronic Kidney Disease, Stage IV (Severe) (Hcc) S/P Laparoscopic Sleeve Gastrectomy Gerd Without Esophagitis Sensory Hearing Loss, Bilateral Class 3 Severe Obesity With Body Mass Index (Bmi) of 45.0 to 49.9 in Adult (Hcc) Type 2 Diabetes Mellitus With Diabetic Neuropathy, With Long-Term Current Use of Insulin (Hcc) Primary Osteoarthritis of Both Hips Vertigo Cognitive Impairment Circadian Rhythm Sleep Disorder, Irregular Sleep Wake Type Anemia Acute Gout Dysuria Urinary Frequency Cloudy Urine Obesity, Class II, Bmi 35-39.9 Arthritis of Left Hip Weight Bearing or Surgical Precautions: Weight Bearing Restrictions WBAT LLE, posterior hip precautions at all times ASSESSMENT: Focus of Visit Functional tasks for standing tolerance/balance Patient identified goals to get stronger Plan of care, goals, and visit frequency reviewed and agreed upon with patient and/or caregiver. See intervention summary for intervention/education details. Current Discharge Plan: remain in community with/without caregiver support. Anticipate discharge by 02/15/2024 RECOMMENDATION: Next visit to focus on Pt. to be seen next by OTR/L for a discharge visit. documented in this encounter [facility] 02-08-2024 Patient's home Note SITUATION: Pt. seen for HOLGUIN Routine Visit. spouse present during today's visit. patient and caregiver reports the following since the last homecare visit: medications/allergies--no changes, no fall. patient reports She's doing pretty good. 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 Kidney Disease (Hcc) Degenerative Arthritis of Knee Myalgia Hyperlipidemia (Hfpef) Heart Failure With Preserved Ejection Fraction (Hcc) Fatty Liver History of Thyroid Cancer Type 2 Diabetes Mellitus With Stage 4 Chronic Kidney Disease, With Long-Term Current Use of Insulin (Hcc) Depression, Recurrent (Hcc) Chronic Kidney Disease, Stage IV (Severe) (Hcc) S/P Laparoscopic Sleeve Gastrectomy Gerd Without Esophagitis Sensory Hearing Loss, Bilateral Class 3 Severe Obesity With Body Mass Index (Bmi) of 45.0 to 49.9 in Adult (Hcc) Type 2 Diabetes Mellitus With Diabetic Neuropathy, With Long-Term Current Use of Insulin (Hcc) Primary Osteoarthritis of Both Hips Vertigo Cognitive Impairment Circadian Rhythm Sleep Disorder, Irregular Sleep Wake Type Anemia Acute Gout Dysuria Urinary Frequency Cloudy Urine Obesity, Class II, Bmi 35-39.9 Arthritis of Left Hip Weight Bearing or Surgical Precautions: Weight Bearing Restrictions WBAT LLE, posterior hip precautions at all times ASSESSMENT: Focus of Visit Functional tasks for standing tolerance/balance Patient identified goals to get stronger Plan of care, goals, and visit frequency reviewed and agreed upon with patient and/or caregiver. See intervention summary for intervention/education details. Current Discharge Plan: remain in community with/without caregiver support. Anticipate discharge by 02/15/2024 RECOMMENDATION: Next visit to focus on Pt. to be seen next by OTR/L for a discharge visit. [facility] Work Phone: 02-07-2024 History of Present illness Narrative CDM Telephonic Outreach Provider Action/FYI Contacted for: Routine Telephonic Outreach Contact made with patient: No, left message. Catherine Pompa RN February 07, 2024 3:59 PM Care Coordination next call- CHF,CKD,DM Dementia lvm x 2 Last CDM outreach contact: 01/09/24- No CDM concerns. BS low at appt today. Pt does not get any symptoms, but did seem sleepy at appt. Spouse states dexcom not working accurately. Now using finger stick. Pt ate lunch when she got home. Pt did not recheck BS. Recommended to to recheck BS and if low to contact PCP or Endo. Appt with Ortho 12/12/23-to review for hip surgery.........hip surg schedulue 01/21/24 Baseline: 11/14/23 ADL, FALL, GOAL due: 08/22/24 . Chronic disease goal - 02/02/23 -chf/ckd 08/22/23-reviewed zones/management Goal assessment: 11/14/23 SDOH transportation and food insecurity completed: 02/02/23 Recent admit, ED, observation: Admit 01/20- LTH DC 01/23 with [facility] Telephonic Outreach Provider Action/FYI Contacted for: Routine Telephonic Outreach Contact made with patient: No, left message. Catherine Pompa RN February 07, 2024 12:31 PM documented in this encounter [facility] 02-06-2024 Miscellaneous Notes SITUATION: Pt. seen for HOLGUIN Routine Visit. spouse present during today's visit. caregiver reports the following since the last homecare visit: medications/allergies--no changes, no fall. patient reports She was finishing up getting ready for the day. 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 Kidney Disease (Hcc) Degenerative Arthritis of Knee Myalgia Hyperlipidemia (Hfpef) Heart Failure With Preserved Ejection Fraction (Hcc) Fatty Liver History of Thyroid Cancer Type 2 Diabetes Mellitus With Stage 4 Chronic Kidney Disease, With Long-Term Current Use of Insulin (Hcc) Depression, Recurrent (Hcc) Chronic Kidney Disease, Stage IV (Severe) (Hcc) S/P Laparoscopic Sleeve Gastrectomy Gerd Without Esophagitis Sensory Hearing Loss, Bilateral Class 3 Severe Obesity With Body Mass Index (Bmi) of 45.0 to 49.9 in Adult (Hcc) Type 2 Diabetes Mellitus With Diabetic Neuropathy, With Long-Term Current Use of Insulin (Hcc) Primary Osteoarthritis of Both Hips Vertigo Cognitive Impairment Circadian Rhythm Sleep Disorder, Irregular Sleep Wake Type Anemia Acute Gout Dysuria Urinary Frequency Cloudy Urine Obesity, Class II, Bmi 35-39.9 Arthritis of Left Hip Weight Bearing or Surgical Precautions: Weight Bearing Restrictions WBAT LLE, posterior hip precautions at all times ASSESSMENT: Focus of Visit HEP and shower transfer safety Patient identified goals to get back to normal Plan of care, goals, and visit frequency reviewed and agreed upon with patient and/or caregiver. See intervention summary for intervention/education details. Current Discharge Plan: remain in community with/without caregiver support. Anticipate discharge by 02/15/2024 RECOMMENDATION: Next visit to focus on Functional tasks with standing tolerance/balance. documented in this encounter [facility] 02-06-2024 Patient's home Note SITUATION: Pt. seen for HOLGUIN Routine Visit. spouse present during today's visit. caregiver reports the following since the last homecare visit: medications/allergies--no changes, no fall. patient reports She was finishing up getting ready for the day. 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 Kidney Disease (Hcc) Degenerative Arthritis of Knee Myalgia Hyperlipidemia (Hfpef) Heart Failure With Preserved Ejection Fraction (Hcc) Fatty Liver History of Thyroid Cancer Type 2 Diabetes Mellitus With Stage 4 Chronic Kidney Disease, With Long-Term Current Use of Insulin (Hcc) Depression, Recurrent (Hcc) Chronic Kidney Disease, Stage IV (Severe) (Hcc) S/P Laparoscopic Sleeve Gastrectomy Gerd Without Esophagitis Sensory Hearing Loss, Bilateral Class 3 Severe Obesity With Body Mass Index (Bmi) of 45.0 to 49.9 in Adult (Hcc) Type 2 Diabetes Mellitus With Diabetic Neuropathy, With Long-Term Current Use of Insulin (Hcc) Primary Osteoarthritis of Both Hips Vertigo Cognitive Impairment Circadian Rhythm Sleep Disorder, Irregular Sleep Wake Type Anemia Acute Gout Dysuria Urinary Frequency Cloudy Urine Obesity, Class II, Bmi 35-39.9 Arthritis of Left Hip Weight Bearing or Surgical Precautions: Weight Bearing Restrictions WBAT LLE, posterior hip precautions at all times ASSESSMENT: Focus of Visit HEP and shower transfer safety Patient identified goals to get back to normal Plan of care, goals, and visit frequency reviewed and agreed upon with patient and/or caregiver. See intervention summary for intervention/education details. Current Discharge Plan: remain in community with/without caregiver support. Anticipate discharge by 02/15/2024 RECOMMENDATION: Next visit to focus on Functional tasks with standing tolerance/balance. [facility] Work Phone: 02-05-2024 Telephone encounter Note Record ID: [id number] [id number] Patient name: Bhakti Kirkpatrick Date: February 05, 2024 - 03:35 Administered by: EMILY Protocol: -> Great! Now we are in a secure chat environment. Protecting your health information is important to us. Ok, let's get started. Please verify your name and date of . Please click on the button with your first name. -> Bhakti Got it. On to the next question... Select the button with your last name. -> Shanell Got it, thank you. Please enter your date of in MM/DD/YYYY format:(e.g., 09/28/1967 for Sep 28, 1967) -> 1945 Thank you for verifying your information. I'd like to ask you a few questions about how your recovery is going. Have there been any new or worsening symptoms since your last response? -> Yes And how have these symptoms changed since you first noticed them? -> Worse To play it safe, your symptoms should be reviewed by a clinician. If you think this is a medical emergency, go to the nearest emergency room or call 911. Otherwise you can expect a call from a [facility] registered nurse within the next business day. Thank you for your time and allowing us to care for you. We will check in on you over the next four weeks to ensure you continue to recover and support your needs. In the meantime, please reach out to your PCP for any questions or concerns.Thank you for choosing [facility]! -> [facility] 02-05-2024 Miscellaneous Notes Record ID: [id number] [id number] Patient name: Bhakti Kirkpatrick Date: February 05, 2024 - 03:35 Administered by: EMILY Protocol: -> Great! Now we are in a secure chat environment. Protecting your health information is important to us. Ok, let's get started. Please verify your name and date of . Please click on the button with your first name. -> Bhakti Got it. On to the next question... Select the button with your last name. -> Shanell Got it, thank you. Please enter your date of in MM/DD/YYYY format:(e.g., 09/28/1967 for Sep [birth year], 1967) -> 1945 Thank you for verifying your information. I'd like to ask you a few questions about how your recovery is going. Have there been any new or worsening symptoms since your last response? -> Yes And how have these symptoms changed since you first noticed them? -> Worse To play it safe, your symptoms should be reviewed by a clinician. If you think this is a medical emergency, go to the nearest emergency room or call 911. Otherwise you can expect a call from a [facility] registered nurse within the next business day. Thank you for your time and allowing us to care for you. We will check in on you over the next four weeks to ensure you continue to recover and support your needs. In the meantime, please reach out to your PCP for any questions or concerns.Thank you for choosing [facility]! -> documented in this encounter [facility] 02-05-2024 Telephone encounter Note Record ID: [id number] [id number] Patient name: Bhakti Kirkpatrick Date: February 05, 2024 - 11:45 Administered by: EMILY Protocol: -> Great! Now we are in a secure chat environment. Protecting your health information is important to us. Ok, let's get started. Please verify your name and date of . Please click on the button with your first name. -> Bhakti Got it. On to the next question... Select the button with your last name. -> Shanell Got it, thank you. Please enter your date of in MM/DD/YYYY format:(e.g., 09/28/1967 for Sep [birth year], 1967) -> 1945 Thank you for verifying your information. I'd like to ask you a few questions about how your recovery is going. Have there been any new or worsening symptoms since your last response? -> Yes And how have these symptoms changed since you first noticed them? -> Worse [facility] 02-05-2024 Telephone encounter Note Record ID: [id number] [id number] Patient name: Bhakti Kirkpatrick Date: February 05, 2024 - 11:45 Administered by: EMILY Protocol: -> Great! Now we are in a secure chat environment. Protecting your health information is important to us. Ok, let's get started. Please verify your name and date of . Please click on the button with your first name. -> Bhakti Got it. On to the next question... Select the button with your last name. -> Shanell Got it, thank you. Please enter your date of in MM/DD/YYYY format:(e.g., 09/28/1967 for Sep [birth year], 1967) -> 1945 Thank you for verifying your information. I'd like to ask you a few questions about how your recovery is going. Have there been any new or worsening symptoms since your last response? -> Yes And how have these symptoms changed since you first noticed them? -> Worse [facility] 02-05-2024 Miscellaneous Notes Record ID: [id number] [id number] Patient name: Bhakti Kirkpatrick Date: February 05, 2024 - 11:45 Administered by: EMILY Protocol: -> Great! Now we are in a secure chat environment. Protecting your health information is important to us. Ok, let's get started. Please verify your name and date of . Please click on the button with your first name. -> Bhakti Got it. On to the next question... Select the button with your last name. -> Shanell Got it, thank you. Please enter your date of in MM/DD/YYYY format:(e.g., 09/28/1967 for Sep [birth year], 1967) -> 1945 Thank you for verifying your information. I'd like to ask you a few questions about how your recovery is going. Have there been any new or worsening symptoms since your last response? -> Yes And how have these symptoms changed since you first noticed them? -> Worse documented in this encounter [facility] 02-05-2024 Miscellaneous Notes SITUATION: spouse present for partial visit during today's visit. patient reports the following since the last homecare visit: medications/allergies--no changes, no fall. patient and caregiver reports she has not had a good past few nights. Has had increased hip pain at night and has not been able to sleep well. . BACKGROUND: Diagnoses (reason for Home Care): LTHR Weight Bearing/Precaution Changes: no changes ASSESSMENT: Focus of visit extended visit today due to patients concerns and multiple questions. Instructed patient and to try elevating leg higher at night and to continue w/ ice several times throughout the day and before bed. Spouse stated patient has not been icing as much because it makes her cold. Recommended using extra towel layer to decrease coldness and see if better tolerated. Patient able to complete all exercises and ambulation w/o reports of increased pain today. Plan of care, goals, and visit frequency reviewed and agreed upon with patient and/or caregiver. Current Discharge Plan: family support Anticipate discharge by 02/14/24 RECOMMENDATION: Next visit to focus on start standing heel raises and hams curls See intervention summary for intervention/education details. documented in this encounter [facility] 02-05-2024 Patient's home Note SITUATION: spouse present for partial visit during today's visit. patient reports the following since the last homecare visit: medications/allergies--no changes, no fall. patient and caregiver reports she has not had a good past few nights. Has had increased hip pain at night and has not been able to sleep well. . BACKGROUND: Diagnoses (reason for Home Care): LTHR Weight Bearing/Precaution Changes: no changes ASSESSMENT: Focus of visit extended visit today due to patients concerns and multiple questions. Instructed patient and to try elevating leg higher at night and to continue w/ ice several times throughout the day and before bed. Spouse stated patient has not been icing as much because it makes her cold. Recommended using extra towel layer to decrease coldness and see if better tolerated. Patient able to complete all exercises and ambulation w/o reports of increased pain today. Plan of care, goals, and visit frequency reviewed and agreed upon with patient and/or caregiver. Current Discharge Plan: family support Anticipate discharge by 02/14/24 RECOMMENDATION: Next visit to focus on start standing heel raises and hams curls See intervention summary for intervention/education details. [facility] Work Phone: 02-05-2024 History of Present illness Narrative TRANSITION CARE MANAGEMENT (TCM) FOLLOW-UP NOTE Provider Action/FYI Single Outreach for Worsening Symptoms Patient identified by name and date of : YES Spoke to spouse Validated he is involved in Pt's care He reports: Pt. has alzheimer's Makes it hard to know if she is really in pain or not Pt.is refusing to walk due to increased Pain From left Knee up to hip Is working with PT today (In a bout an hour) wants to wait until PT gets there and sees Pt. TCM provided contact number plans to call back if Pt. needs to speak to Virtualist Incision looks great Staying hydrated Verbalized plan of care Discharge Network Status: In-Network Discharge Summary: Pt discharged from [facility] Main on 01/24/24. 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 They are being audited; previous [facility] stated each instead of mL for the amount to be dispensed. Forms needs signed and initialed by Dr Best. They also need a stamp or letterhead with providers name, address and NPI/YEIMY number. Placed in providers signature folder. Pascale Lamb RN [facility] 02-01-2024 Miscellaneous Notes Forms from [facility] received. They are being audited; previous [facility] stated each instead of mL for the amount to be dispensed. Forms needs signed and initialed by Dr Best. They also need a stamp or letterhead with providers name, address and NPI/YEIMY number. Placed in providers signature folder. Pascale Lamb RN January 31, 2024 3:28 PM [facility] pharmacy called in about fax sent today. Stated that there should be three pages that were faxed over. On the third page there are three spots needs to be filled out by Dr. Best and then faxed back to [facility], fax number on faxed over sheets. Please Advise. Santo [facility] calling again to check on message below. He will refax information now to [phone]. Santo is calling Max Best MD today with concern regarding insulin detemir (LEVEMIR FLEXTOUCH U-100 INSULN SUBCUTANEOUS) (Discontinued) Patient has been identified by name and birthdate. Duration of symptoms: N/A [facility] Call Santo at: at work [phone] Was an appointment scheduled: No Closing statement: Santo with [facility] called and said he needed to confirm information regarding this prescription. He said he will send a fax to [phone]. Aleksandar Sharp documented in this encounter [facility] 01-31-2024 Telephone encounter Note January 31, 2024 3:28 PM [facility] about fax sent today. Stated that there should be three pages that were faxed over. On the third page there are three spots needs to be filled out by Dr. Best and then faxed back to [facility], fax number on faxed over sheets. Please Advise. [facility] 01-31-2024 Miscellaneous Notes SITUATION: spouse present during today's visit. patient and caregiver reports the following since the last homecare visit: medications/allergies--no changes, no fall. patient reports she just took a nap and is feeling a little better now. States that she struggles some at night getting comfortable and needs to nap during the day BACKGROUND: Diagnoses (reason for Home Care): lthr Weight Bearing/Precaution Changes: no changes posteior ASSESSMENT: Focus of visit gait trining w/ ww,,performed seated and supine le ex for hep. good recall of hip precaitions insructed patient and in elevation and ice several times/day Plan of care, goals, and visit frequency reviewed and agreed upon with patient and/or caregiver. Current Discharge Plan: independent with home exercise program Anticipate discharge by 02/15/24 RECOMMENDATION: Next visit to focus on review and progress hep, gait training See intervention summary for intervention/education details. documented in this encounter [facility] 01-31-2024 Patient's home Note SITUATION: spouse present during today's visit. patient and caregiver reports the following since the last homecare visit: medications/allergies--no changes, no fall. patient reports she just took a nap and is feeling a little better now. States that she struggles some at night getting comfortable and needs to nap during the day BACKGROUND: Diagnoses (reason for Home Care): lthr Weight Bearing/Precaution Changes: no changes posteior ASSESSMENT: Focus of visit gait trining w/ ww,,performed seated and supine le ex for hep. good recall of hip precaitions insructed patient and in elevation and ice several times/day Plan of care, goals, and visit frequency reviewed and agreed upon with patient and/or caregiver. Current Discharge Plan: independent with home exercise program Anticipate discharge by 02/15/24 RECOMMENDATION: Next visit to focus on review and progress hep, gait training See intervention summary for intervention/education details. [facility] Work Phone: 01-31-2024 Telephone encounter Note [facility] calling again to check on message below. He will refax information now to [phone]. [facility] 01-31-2024 Miscellaneous Notes SITUATION: OT evaluation spouse present during today's visit. patient reports the following since the last homecare visit: medications/allergies--no changes, no fall. Patient lives with spouse in a 1 level home, 3 steps to exit home via garage. Pt prior to surgery was ambulating with rollator. Pt requires asst with dressing and bathing. Pt is able to state 1/3 hip precautions needing review of no crossing legs and no twisting. Spouse was assting with dressing machine captain due to arthritic shoulders and inability to bed forward. 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 Disease (Hcc) Degenerative Arthritis of Knee Myalgia Hyperlipidemia (Hfpef) Heart Failure With Preserved Ejection Fraction (Hcc) Fatty Liver History of Thyroid Cancer Type 2 Diabetes Mellitus With Stage 4 Chronic Kidney Disease, With Long-Term Current Use of Insulin (Hcc) Depression, Recurrent (Hcc) Chronic Kidney Disease, Stage IV (Severe) (Hcc) S/P Laparoscopic Sleeve Gastrectomy Gerd Without Esophagitis Sensory Hearing Loss, Bilateral Class 3 Severe Obesity With Body Mass Index (Bmi) of 45.0 to 49.9 in Adult (Hcc) Type 2 Diabetes Mellitus With Diabetic Neuropathy, With Long-Term Current Use of Insulin (Hcc) Primary Osteoarthritis of Both Hips Vertigo Cognitive Impairment Circadian Rhythm Sleep Disorder, Irregular Sleep Wake Type Anemia Acute Gout Dysuria Urinary Frequency Cloudy Urine Obesity, Class II, Bmi 35-39.9 Arthritis of Left Hip Weight Bearing or Surgical Precautions: Weight Bearing Restrictions WBAT LLE, posterior hip precautions at all times ASSESSMENT: Patient evaluated by [facility] occupational therapy. Reviewed and explained homecare services. Plan of care, goals and visit frequency developed, reviewed, and agreed upon with patient and/or caregiver. Patient identified goals: to be able to do for myself. Patient will benefit from continued occupational therapy to address the following deficits UE strength/ROM and functional transfers as evidenced by score on Modified Bonita Index 50/100 indication severe dependence in adl and mobility, Pt would benefit from further OT for ue hep for strengthening to carry over to transfers/adls, transfer training to improve safety and indep with toilet and shower transfers, standing tolerance to improve ability to complete grooming and adl tasks in standing to return to plof. Pt without OT risks continued dependence on family for all care. Current Discharge Plan:remain in community with/without caregiver support. Anticipate discharge by 02/23/24 RECOMMENDATION: Plan for next visit to focus on initiate ue hep, review shower transfer technique and safety . See intervention summary for intervention/education details. documented in this encounter [facility] 01-31-2024 Patient's home Note SITUATION: OT evaluation spouse present during today's visit. patient reports the following since the last homecare visit: medications/allergies--no changes, no fall. Patient lives with spouse in a 1 level home, 3 steps to exit home via garage. Pt prior to surgery was ambulating with rollator. Pt requires asst with dressing and bathing. Pt is able to state 1/3 hip precautions needing review of no crossing legs and no twisting. Spouse was assting with dressing machine captain due to arthritic shoulders and inability to bed forward. 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 Disease (Hcc) Degenerative Arthritis of Knee Myalgia Hyperlipidemia (Hfpef) Heart Failure With Preserved Ejection Fraction (Hcc) Fatty Liver History of Thyroid Cancer Type 2 Diabetes Mellitus With Stage 4 Chronic Kidney Disease, With Long-Term Current Use of Insulin (Hcc) Depression, Recurrent (Hcc) Chronic Kidney Disease, Stage IV (Severe) ([facility]) S/P Laparoscopic Sleeve Gastrectomy Gerd Without Esophagitis Sensory Hearing Loss, Bilateral Class 3 Severe Obesity With Body Mass Index (Bmi) of 45.0 to 49.9 in Adult (Hcc) Type 2 Diabetes Mellitus With Diabetic Neuropathy, With Long-Term Current Use of Insulin ([facility]) Primary Osteoarthritis of Both Hips Vertigo Cognitive Impairment Circadian Rhythm Sleep Disorder, Irregular Sleep Wake Type Anemia Acute Gout Dysuria Urinary Frequency Cloudy Urine Obesity, Class II, Bmi 35-39.9 Arthritis of Left Hip Weight Bearing or Surgical Precautions: Weight Bearing Restrictions WBAT LLE, posterior hip precautions at all times ASSESSMENT: Patient evaluated by [facility] occupational therapy. Reviewed and explained homecare services. Plan of care, goals and visit frequency developed, reviewed, and agreed upon with patient and/or caregiver. Patient identified goals: to be able to do for myself. Patient will benefit from continued occupational therapy to address the following deficits UE strength/ROM and functional transfers as evidenced by score on Modified Bonita Index 50/100 indication severe dependence in adl and mobility, Pt would benefit from further OT for ue hep for strengthening to carry over to transfers/adls, transfer training to improve safety and indep with toilet and shower transfers, standing tolerance to improve ability to complete grooming and adl tasks in standing to return to plof. Pt without OT risks continued dependence on family for all care. Current Discharge Plan:remain in community with/without caregiver support. Anticipate discharge by 02/23/24 RECOMMENDATION: Plan for next visit to focus on initiate ue hep, review shower transfer technique and safety . See intervention summary for intervention/education details. [facility] Work Phone: 01-29-2024 Miscellaneous Notes bisacodyl EC (DULCOLAX) 5 mg EC tablet removed per approval from Dr. Beltran's office. Medication list updated Xochilt Caballero RN documented in this encounter [facility] 01-29-2024 Patient's home Note bisacodyl EC (DULCOLAX) 5 mg EC tablet removed per approval from Dr. Beltran's office. Medication list updated Xochilt Caballero RN [facility] Work Phone: 01-29-2024 Telephone encounter Note Santo is calling Max Best MD today with concern regarding insulin detemir (LEVEMIR FLEXTOUCH U-100 INSULN SUBCUTANEOUS) (Discontinued) Patient has been identified by name and birthdate. Duration of symptoms: N/A Person calling: pharmacy: [facility] Call Santo at: at work [phone] Was an appointment scheduled: No Closing statement: Santo with [facility] pharmacy called and said he needed to confirm information regarding this prescription. He said he will send a fax to [phone]. Aleksandar Sharp [facility] 01-29-2024 Miscellaneous Notes Medication review completed. No ineffective drug therapy, significant side effects, significant drug interactions, duplicate drug therapy, or noncompliance with drug therapy noted. Patient reports to SOC clinician not taking the following medications insulin lispro (HUMALOG) 200 unit/mL (3 mL) injection -Sent TE to Endocrine requesting removal bisacodyl EC (DULCOLAX) 5 mg EC tablet -resent TE from SOC clinician to team requesting removal Removed supplements pt is no longer taking and notified provider. Medication list updated Xochilt Caballero RN documented in this encounter [facility] 01-29-2024 Patient's home Note Medication review completed. No ineffective drug therapy, significant side effects, significant drug interactions, duplicate drug therapy, or noncompliance with drug therapy noted. Patient reports to SOC clinician not taking the following medications insulin lispro (HUMALOG) 200 unit/mL (3 mL) injection -Sent TE to Endocrine requesting removal bisacodyl EC (DULCOLAX) 5 mg EC tablet -resent TE from SOC clinician to team requesting removal Removed supplements pt is no longer taking and notified provider. Medication list updated Xochilt Caballero RN [facility] Work Phone: 01-28-2024 Miscellaneous Notes SITUATION: spouse present during today's visit. patient and caregiver reports the following since the last homecare visit: medications/allergies--no changes, no fall. patient reports she did not have a good nght last night. hip is sore. BACKGROUND: Diagnoses (reason for Home Care): lthr Weight Bearing/Precaution Changes: no changes posteior ASSESSMENT: Focus of visit gait trining w/ ww,,performed seated and supine le ex for hep. good recall of hip precaitions insructed patient and in elevation and ice several times/day which they have not been doing bandage removal, no concerns at this time Plan of care, goals, and visit frequency reviewed and agreed upon with patient and/or caregiver. Current Discharge Plan: independent with home exercise program Anticipate discharge by 02/15/24 RECOMMENDATION: Next visit to focus on review and progress hep, gait training See intervention summary for intervention/education details. documented in this encounter [facility] 01-28-2024 Patient's home Note SITUATION: spouse present during today's visit. patient and caregiver reports the following since the last homecare visit: medications/allergies--no changes, no fall. patient reports she did not have a good nght last night. hip is sore. BACKGROUND: Diagnoses (reason for Home Care): lthr Weight Bearing/Precaution Changes: no changes posteior ASSESSMENT: Focus of visit gait trining w/ ww,,performed seated and supine le ex for hep. good recall of hip precaitions insructed patient and in elevation and ice several times/day which they have not been doing bandage removal, no concerns at this time Plan of care, goals, and visit frequency reviewed and agreed upon with patient and/or caregiver. Current Discharge Plan: independent with home exercise program Anticipate discharge by 02/15/24 RECOMMENDATION: Next visit to focus on review and progress hep, gait training See intervention summary for intervention/education details. [facility] Work Phone: 01-26-2024 Telephone encounter Note Roberto the following medications changes to her medication list: insulin lispro (HUMALOG) 200 unit/mL (3 mL) injection take up to 165 units daily bisacodyl EC (DULCOLAX) 5 mg EC tablet Take 2 tablets by mouth once daily for 7 days. calcium citrate (CITRACAL ORAL) Dose: 2 tablet / Route: ORAL / Freq: 2 TIMES DAILY lactulose (DUPHALAC, CONSTULOSE) 10 gram/15 mL solution Dose: 30 mL / Route: ORAL / Freq: EVERY 24 HOURS / Admin Inst: NOT TAKING Patient does not have the medications in the home and is not taking these medications. [facility] Work Phone: 01-26-2024 Miscellaneous Notes Roberto the following medications changes to her medication list: insulin lispro (HUMALOG) 200 unit/mL (3 mL) injection take up to 165 units daily bisacodyl EC (DULCOLAX) 5 mg EC tablet Take 2 tablets by mouth once daily for 7 days. calcium citrate (CITRACAL ORAL) Dose: 2 tablet / Route: ORAL / Freq: 2 TIMES DAILY lactulose (DUPHALAC, CONSTULOSE) 10 gram/15 mL solution Dose: 30 mL / Route: ORAL / Freq: EVERY 24 HOURS / Admin Inst: NOT TAKING Patient does not have the medications in the home and is not taking these medications. documented in this encounter [facility] 01-26-2024 Miscellaneous Notes SITUATION: spouse present during today's visit. patient reports she is noted to have elevated pain coming home however is currently controlling with acetaminothen every 8 hours. 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 Chronic Kidney Disease (Hcc) Degenerative Arthritis of Knee Myalgia Hyperlipidemia (Hfpef) Heart Failure With Preserved Ejection Fraction (Hcc) Fatty Liver History of Thyroid Cancer Type 2 Diabetes Mellitus With Stage 4 Chronic Kidney Disease, With Long-Term Current Use of Insulin (Hcc) Depression, Recurrent (Hcc) Chronic Kidney Disease, Stage IV (Severe) (Hcc) S/P Laparoscopic Sleeve Gastrectomy Gerd Without Esophagitis Sensory Hearing Loss, Bilateral Class 3 Severe Obesity With Body Mass Index (Bmi) of 45.0 to 49.9 in Adult (Hcc) Type 2 Diabetes Mellitus With Diabetic Neuropathy, With Long-Term Current Use of Insulin (Hcc) Primary Osteoarthritis of Both Hips Vertigo Cognitive Impairment Circadian Rhythm Sleep Disorder, Irregular Sleep Wake Type Anemia Acute Gout Dysuria Urinary Frequency Cloudy Urine Obesity, Class II, Bmi 35-39.9 Arthritis of Left Hip Weight Bearing or Surgical Precautions: Weight Bearing Restrictions WBAT LLE, posterior hip precautions at all times ASSESSMENT: Patient evaluated by [facility] physical therapy. Reviewed and explained homecare services. Plan of care, goals, and visit frequency developed, reviewed, and agreed upon with patient and/or caregiver. Patient Goal: improve mobility Patient will benefit from continued physical therapy to address the following deficits: strength, balance, gait, endurance, transfers, stair negotiation and bed mobility. Current Discharge Plan: independent with home exercise program. Anticipate discharge by 02/16/24. RECOMMENDATION: Next visit to focus on transfers, ambulation, review HEP Agreeable to PT and OT; See intervention summary for intervention/education details. documented in this encounter [facility] 01-26-2024 Patient's home Note SITUATION: spouse present during today's visit. patient reports she is noted to have elevated pain coming home however is currently controlling with acetaminothen every 8 hours. 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 Chronic Kidney Disease (Hcc) Degenerative Arthritis of Knee Myalgia Hyperlipidemia (Hfpef) Heart Failure With Preserved Ejection Fraction (Hcc) Fatty Liver History of Thyroid Cancer Type 2 Diabetes Mellitus With Stage 4 Chronic Kidney Disease, With Long-Term Current Use of Insulin (Hcc) Depression, Recurrent ([facility]) Chronic Kidney Disease, Stage IV (Severe) ([facility]) S/P Laparoscopic Sleeve Gastrectomy Gerd Without Esophagitis Sensory Hearing Loss, Bilateral Class 3 Severe Obesity With Body Mass Index (Bmi) of 45.0 to 49.9 in Adult ([facility]) Type 2 Diabetes Mellitus With Diabetic Neuropathy, With Long-Term Current Use of Insulin ([facility]) Primary Osteoarthritis of Both Hips Vertigo Cognitive Impairment Circadian Rhythm Sleep Disorder, Irregular Sleep Wake Type Anemia Acute Gout Dysuria Urinary Frequency Cloudy Urine Obesity, Class II, Bmi 35-39.9 Arthritis of Left Hip Weight Bearing or Surgical Precautions: Weight Bearing Restrictions WBAT LLE, posterior hip precautions at all times ASSESSMENT: Patient evaluated by [facility] physical therapy. Reviewed and explained homecare services. Plan of care, goals, and visit frequency developed, reviewed, and agreed upon with patient and/or caregiver. Patient Goal: improve mobility Patient will benefit from continued physical therapy to address the following deficits: strength, balance, gait, endurance, transfers, stair negotiation and bed mobility. Current Discharge Plan: independent with home exercise program. Anticipate discharge by 02/16/24. RECOMMENDATION: Next visit to focus on transfers, ambulation, review HEP Agreeable to PT and OT; See intervention summary for intervention/education details. [facility] Work Phone: 01-25-2024 Telephone encounter Note Record ID: [id number] Patient name: Bhakti Kirkpatrick Date: January 25, 2024 - 08:24 Administered by: EMILY Protocol: -> Great! Now we are in a secure chat environment. Protecting your health information is important to us. Ok, let's get started. Please verify your name and date of . Please click on the button with your first name. -> Bhakti Got it. On to the next question... Select the button with your last name. -> Shanell Got it, thank you. Please enter your date of in MM/DD/YYYY format:(e.g., 09/28/1967 for Sep 28, 1967) -> 1945 Thank you for verifying your information. I'd like to ask you a few questions about how your recovery is going. Since leaving the hospital, do you have any new or worsening symptoms? -> No I'm glad to hear that. We encourage a follow-up appointment with a physician to oversee your recovery.It appears that you do not have a follow-up appointment with a provider. Not a problem. A imaging scheduler will reach out to you within the next 24 hours. Please be on the lookout for their call. Many patients have concerns about their medication once they are home. Do you have any questions about taking your medications or which medications you should be on? -> No T [facility] 01-25-2024 Telephone encounter Note Record ID: [id number] Patient name: Bhakti Kirkpatrick Date: January 25, 2024 - 08:24 Administered by: EMILY Protocol: -> Great! Now we are in a secure chat environment. Protecting your health information is important to us. Ok, let's get started. Please verify your name and date of . Please click on the button with your first name. -> Bhakti Got it. On to the next question... Select the button with your last name. -> Shanell Got it, thank you. Please enter your date of in MM/DD/YYYY format:(e.g., 09/28/1967 for Sep 28, 1967) -> 1945 Thank you for verifying your information. I'd like to ask you a few questions about how your recovery is going. Since leaving the hospital, do you have any new or worsening symptoms? -> No T [facility] 01-25-2024 Miscellaneous Notes Record ID: [id number] Patient name: Bhakti Kirkpatrick Date: January 25, 2024 - 08:24 Administered by: EMILY Protocol: -> Great! Now we are in a secure chat environment. Protecting your health information is important to us. Ok, let's get started. Please verify your name and date of . Please click on the button with your first name. -> Bhakti Got it. On to the next question... Select the button with your last name. -> Shanell Got it, thank you. Please enter your date of in MM/DD/YYYY format:(e.g., 09/28/1967 for Sep [birth year], 1967) -> 1945 Thank you for verifying your information. I'd like to ask you a few questions about how your recovery is going. Since leaving the hospital, do you have any new or worsening symptoms? -> No I'm glad to hear that. We encourage a follow-up appointment with a physician to oversee your recovery.It appears that you do not have a follow-up appointment with a provider. Not a problem. A imaging scheduler will reach out to you within the next 24 hours. Please be on the lookout for their call. Many patients have concerns about their medication once they are home. Do you have any questions about taking your medications or which medications you should be on? -> No documented in this encounter [facility] 01-25-2024 Miscellaneous Notes Record ID: [id number] Patient name: Bhakti Kirkpatrick Date: January 25, 2024 - 08:24 Administered by: EMILY Protocol: -> Great! Now we are in a secure chat environment. Protecting your health information is important to us. Ok, let's get started. Please verify your name and date of . Please click on the button with your first name. -> Bhakti Got it. On to the next question... Select the button with your last name. -> Shanell Got it, thank you. Please enter your date of in MM/DD/YYYY format:(e.g., 09/28/1967 for Sep 28, 1967) -> 1945 Thank you for verifying your information. I'd like to ask you a few questions about how your recovery is going. Since leaving the hospital, do you have any new or worsening symptoms? -> No documented in this encounter [facility] 01-25-2024 Telephone encounter Note Patient accepted and confirmed home health start of care (SOC) for 01/26/24. [facility] 01-25-2024 Miscellaneous Notes Patient accepted and confirmed home health start of care (SOC) for 01/26/24. documented in this encounter [facility] 01-25-2024 History of Present illness Narrative POPULATION HEALTH NAVIGATION OUTREACH Action/FYI January 25, 2024 Spoke with pt's who declines scheduling hospital follow up with PCP at this time. Advised spouse to contact PCP's office for any further needs. TCM eligible through 02/06/23 Discharged from [facility] on 01/24/24 Admitted for: Left total hip arthroplasty Reason for Outreach Community Monitoring/Network Navigator Pools & Phone Line: TCM Patient Contacted: Spoke to patient/parent/or legal guardian Patient identified by name and : Yes Community Monitoring/Network Navigator P[employer] Phone Line actions taken: Patient declined: Not interested in scheduling Navigation Signature: Claire Morelos MA January 25, 2024 9:26 AM documented in this encounter [facility] 01-21-2024 Telephone encounter Note Date/Time: 01/21/2024 9:40 AM Spoke with Edward (spouse) @ phone #: [phone] - Preferred # for contact: [phone] Have you received help from a home care company in the last 60 days? No Are you agreeable to [facility] services? Yes What address will we be seeing you at? [address] [address] Do you have any upcoming appointments or things we need to schedule around? No Do you have a teachable CG or can you manage your care independently? Yes [facility] 01-21-2024 Miscellaneous Notes Date/Time: 01/21/2024 9:40 AM Spoke with Edward (spouse) @ phone #: [phone] - Preferred # for contact: [phone] Have you received help from a home care company in the last 60 days? No Are you agreeable to [facility] services? Yes What address will we be seeing you at? [address] [address] Do you have any upcoming appointments or things we need to schedule around? No Do you have a teachable CG or can you manage your care independently? Yes documented in this encounter [facility] 01-15-2024 Telephone encounter Note Spoke to Keshia at Dr Jiang's office. Cardiac clearance letter was received yesterday and is waiting to be reviewed by the physician. [facility] 01-15-2024 Miscellaneous Notes Spoke to Keshia at Dr Jiang's office. Cardiac clearance letter was received yesterday and is waiting to be reviewed by the physician. documented in this encounter [facility] 01-14-2024 Telephone encounter Note TC to pt who voiced understanding. Loraine Catalan LPN [facility] 01-14-2024 Miscellaneous Notes TC to pt who voiced understanding. Loraine Catalan LPN ----- Message from Akilah Pena Jr., MD sent at 01/14/2024 2:22 PM EDT ----- Please inform pt that DVT testing was negative. documented in this encounter [facility] 01-14-2024 Telephone encounter Note ----- Message from Akilah Pena Jr., MD sent at 01/14/2024 2:22 PM EDT ----- Please inform pt that DVT testing was negative. [facility] 01-11-2024 Telephone encounter Note Called Patient to make an appointment for Pre surgical clearance, and patients got on the phone and asked why she needed another pre surgical clearance. Patients said patient had already had 6 appointments for the upcoming surgery. He said flat out that they declined. Mary Price January 11, 2024 3:18 PM [facility] 01-11-2024 Miscellaneous Notes Called Patient to make an appointment for Pre surgical clearance, and patients got on the phone and asked why she needed another pre surgical clearance. Patients said patient had already had 6 appointments for the upcoming surgery. He said flat out that they declined. Mary Price January 11, 2024 3:18 PM documented in this encounter [facility] 01-10-2024 Telephone encounter Note This SW attempted to contact patient to complete pre-op assessment at this time. Pre-op assessment previously completed for patient on 06/28/23, however, assessment needs to be updated due to new surgical date of 01/21/24. Voicemail left for patient, awaiting a return call. Randal GARCIA, OFFAL TRIMMER [facility] 01-10-2024 Miscellaneous Notes This SW attempted to contact patient to complete pre-op assessment at this time. Pre-op assessment previously completed for patient on 06/28/23, however, assessment needs to be updated due to new surgical date of 01/21/24. Voicemail left for patient, awaiting a return call. Randal GARCIA, OFFAL TRIMMER documented in this encounter [facility] 01-09-2024 History of Present illness Narrative [facility] Telephonic Outreach Provider Action/FYI Contacted for: Routine Telephonic Outreach Contact made with patient: Yes Patient identified by name and date of . Discussed care with spouse; pt resting Are you experiencing any new or worsening symptoms you need to talk about today? No Disease Specific Do you check your blood pressure at home? Yes, Enter readings: Not reported Do you have new or worsening shortness of breath with activity? Yes Do you have new or worsening trouble breathing while lying flat? No Do you have new or worsening swelling of legs, feet or ankles? No Do you feel like you are dehydrated for any reason, including not being able to eat or drink normally, or having less urine/much darker urine than normal for you? No Do you check your daily weight at home? Yes, Have you noticed a sudden gain in weight greater than three pounds in a day or three pounds in a week? No Based on manager of selection and assessment, the following disposition is advised: No symptoms or symptoms present, not severe. Routed to: No Action Needed IVAN Education Provided this Outreach: No Catherine Pompa RN January 09, 2024 3:54 PM Care Coordination next call- CHF,CKD,DM Dementia Last CDM outreach contact: 01/09/24- No CDM concerns. BS low at appt today. Pt does not get any symptoms, but did seem sleepy at appt. Spouse states dexcom not working accurately. Now using finger stick. Pt ate lunch when she got home. Pt did not recheck BS. Recommended to to recheck BS and if low to contact PCP or Endo. Appt with Ortho 12/12/23-to review for hip surgery.........hip surg schedulue 01/21/24 Baseline: 11/14/23 ADL, FALL, GOAL due: 08/22/24 . Chronic disease goal - 02/02/23 -chf/ckd 08/22/23-reviewed zones/management Goal assessment: 11/14/23 SDOH transportation and food insecurity completed: 02/02/23 Recent admit, ED, observation: documented in this encounter [facility] 01-09-2024 History and physical note Images from the original note were not included. HISTORY AND PHYSICAL EXAMINATION SERVICE DATE: 01/09/2024 SERVICE TIME: 12:40 PM PRIMARY CARE PHYSICIAN: Jesus Davila MD Assessment Patient has the following medical conditions which may affect kale-operative course: Type 2 diabetes mellitus with diabetic neuropathy, with long-term current use of insulin (HCC) Assessment: Reports compliance to medication. Reports BS checks 131. Following with endocrine. Encouraged lifestyle modifications. Hemoglobin A1C (%) Date Value 10/19/2023 6.2 07/30/2023 6.1 05/31/2021 7.2 06/10/2020 8.2 Hemoglobin A1C (POCT) (%) Date Value 01/31/2023 6.6 12/17/2020 6.0 Arteriosclerotic heart disease (ASHD) Assessment: Denies any new or worsening cardiac symptoms. Follows electric wirer, Dr. Dickerson at [facility], last OV in October. Reports compliance to medication. Pending echo. Ejection Fraction - Result: 69 % Date: 03/09/2016 Time: 11:13:38 (HFpEF) heart failure with preserved ejection fraction (HCC) Assessment: Follows cardiology, , last OV. Compliant on medications. Appears euvolemic, denies new or worsening cardiac symptoms. Noted to have edema b/l ROMINA STAHL. Reports at baseline per . Ejection Fraction - Result: 69 % Date: 03/09/2016 Time: 11:13:38 ABDI treated with BiPAP Assessment: Non Compliant on device. GERD without esophagitis Assessment: Controlled. Advised avoidance of triggers. Following with PCP. S/P laparoscopic sleeve gastrectomy Assessment: There is no height or weight on file to calculate BMI. Fatty liver Assessment: Follows GI, PCP CMP: Glucose 112 08/23/2023 BUN 15 08/23/2023 Creatinine 1.04 08/23/2023 Sodium 141 08/23/2023 Potassium 4.2 08/23/2023 Chloride 102 08/23/2023 CO2 27 08/23/2023 Protein, Total 6.8 08/29/2022 Albumin 4.2 08/29/2022 Calcium 9.7 08/23/2023 Alkaline Phosphatase 94 08/29/2022 Bilirubin, Total 0.4 08/29/2022 AST 19 08/29/2022 ALT 16 08/29/2022 Chronic kidney disease, stage IV (severe) (HCC) Assessment: Follows nephrology, Dr. Vance. Latest Ref Rng & Units 08/23/2023 02/21/2023 08/29/2022 [facility] Glucose 74 - 99 mg/dL 112 208 244 BUN 7 - 21 mg/dL 15 21 28 Creatinine 0.58 - 0.96 mg/dL 1.04 1.10 1.14 Sodium 136 - 144 mmol/L 141 140 140 Potassium 3.7 - 5.1 mmol/L 4.2 3.9 4.2 Chloride 97 - 105 mmol/L 102 99 100 CO2 22 - 30 mmol/L 27 30 28 Anion Gap 9 - 18 mmol/L 12 11 12 Calcium 8.5 - 10.2 mg/dL 9.7 9.8 9.8 EGFR >=60 mL/min/1.73m 56 53 50 History of thyroid cancer Assessment: s/p thyroidectomy. Compliant on levothyroxine. Denies recent dose adjustments. Following with PCP. TSH Date Value 10/19/2023 0.206 mIU/L 01/05/2023 0.976 mIU/L 04/19/2021 4.560 uU/mL 03/01/2021 6.940 uU/mL Anemia Assessment: Follows with PCP, pending labs repeated. Hemoglobin (g/dL) Date Value 08/23/2023 12.7 05/31/2021 10.9 Hematocrit (%) Date Value 08/23/2023 38.2 05/31/2021 33.1 WBC (k/uL) Date Value 08/23/2023 9.79 05/31/2021 6.24 Platelet Count (k/uL) Date Value 08/23/2023 203 05/31/2021 184 Cognitive impairment Assessment: +dementia, here with . On rx at this time, follows neurology. Hyperlipidemia Assessment: Complaint on statin therapy. Encouraged lifestyle modifications. Edema Assessment: b/l LE chronic, intermittent. PRN lasix. [place] Activity Status Index: METS: Walk indoors, such as around the house (1.75 METs) DASI Score: 1.75 (baseline) Patient denies any chest pain or undue shortness of breath with the above physical activity. Patient is limited most or all of the time (uses scooter, mobility device). Clinical Frailty Scale: 6. Moderately frail STOP-Bang Score: STOP-Bang Score: (+abdi ) [id number] Score: Age: >=75 Sex: female CHF history: Yes Hypertension history: Yes Stroke/TIA/thromboembolism history: No Vascular disease history: No Diabetes history: Yes [id number] Score: 6 ANESTHESIA FINDINGS: Intubation History: No history of difficult intubation. No abnormal airway history Significant Anesthesia Considerations: potential slow emergence Airway History: No history of difficult airway No abnormal airway history I - PHYSICAL EVALUATION AIRWAY Patient intubated: No. Tracheostomy tube not present Mallampati: II. TM distance: >3 FB. Neck ROM: full ROM without neurological symptoms. Mouth opening: adequate. Short neck: no. Thick neck: no Microretrognathia/Micronagthia/Re cessed Chin: No DENTAL Dental findings: teeth intact. II - ANESTHESIA PLAN Anesthetic plan additional comments: *PACC/TCI - anesthesia choice. Beta Sana Monitoring Plan Post Procedure Analgesic Plan Prepared for Surgery: optimally prepared for surgery, pending [see comment]. Pending EKG, labs, ECHO. Mupirocin ordered ECHO pending Mendel Will reach out to Dr. Jiang's office once ECHO is complete on Sunday for optimization. CONSULTS: The following consults have been initiated at this time: cardiology. Planned Anesthetic: anesthesia choice The Following Tests/Procedures Have Been Initiated: Orders Placed This Encounter Hemoglobin A1C Standing Status: Future Standing Expiration Date: 04/09/2024 Ferritin Standing Status: Future Standing Expiration Date: 04/09/2024 Hepatic Function Panel Standing Status: Future Standing Expiration Date: 04/09/2024 Iron and TIBC Standing Status: Future Standing Expiration Date: 04/09/2024 CONSULT TO GERIATRICS Standing Status: Future Scheduling Instructions: Reason for Consultation: Pre-surgery optimization Locations: [facility], [address] [place] [address], and [facility], [address] [place] [address] Order Specific Question: Consult Type Answer: Geriatric Order Specific Question: Reason for Consultation Answer: Advance Care Planning/Goals of Care Order Specific Question: Reason for Consultation Answer: Dementia Order Specific Question: Reason for Consultation Answer: Falls/Frailty Order Specific Question: Location Answer: [facility] Order Specific Question: Does consulting provider have [facility] Epic access? Answer: Yes mupirocin (BACTROBAN) 2 % ointment Sig: two times a day for 5 days. Apply 0.5 inch with cotton swab (Q-tip) to each nostril in the morning and evening for 5 days prior to and including day of surgery. Dispense: 22 g Refill: 0 REASON FOR VISIT: Bhakti Kirkpatrick is a 78 year old female who is scheduled for Procedure(s): ARTHROPLASTY REPLACE JOINT TOTAL HIP (Left) at the request of Clyde Fraser MD for consultation. My final recommendation will be communicated back to the requesting physician by way of shared medical record or letter. 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 Kidney Disease (Hcc) Degenerative Arthritis of Knee Myalgia Hyperlipidemia (Hfpef) Heart Failure With Preserved Ejection Fraction (Hcc) Fatty Liver History of Thyroid Cancer Type 2 Diabetes Mellitus With Stage 4 Chronic Kidney Disease, With Long-Term Current Use of Insulin (Hcc) Depression, Recurrent (Hcc) Chronic Kidney Disease, Stage IV (Severe) ([facility]) S/P Laparoscopic Sleeve Gastrectomy Gerd Without Esophagitis Sensory Hearing Loss, Bilateral Class 3 Severe Obesity With Body Mass Index (Bmi) of 45.0 to 49.9 in Adult (Hcc) Type 2 Diabetes Mellitus With Diabetic Neuropathy, With Long-Term Current Use of Insulin (Hcc) Primary Osteoarthritis of Both Hips Vertigo Cognitive Impairment Circadian Rhythm Sleep Disorder, Irregular Sleep Wake Type Anemia Acute Gout Dysuria Urinary Frequency Cloudy Urine COVID-19 Immunization Status Overdue - Covid-19 Vaccine () Overdue since 11/25/2023 07/27/2023 Imm Admin: COVID-19 vaccine, age 12+ yr, season ([employer]ION[employer]) 06/02/2022 Imm Admin: COVID-19 vaccine, age 12+ yr, bivalent (PFIZER-BIONTECH) 02/08/2022 Imm Admin: COVID-19 original vaccine, age 12+ yr, monovalent ([employer] - PURPLE TOP) Only the first 3 history entries have been loaded, but more history exists. CHIEF COMPLAINT: pre op HPI: Patient is a 78 year old female presenting with left hip pain for many months. Denies specific injury. Reports pain today of 10/10, described as sharp. Denies swelling, occassional numbness or tingling. Has tried conservative methods with little relief. Patient denies other specific radiating, alleviating, or aggravating factors. Pt has hx of dementia, Edward presenting with medical hx REVIEW OF SYSTEMS: General: No weight loss, malaise or fevers. Neurological: Positive for: dementia. 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 Respiratory: Positive for: bronchitis, obstructive sleep apnea and CPAP/BiPAP noncompliant. Negative for: asthma, COPD, current cough, dyspnea, home oxygen, orthopnea, tobacco use and URI < 2 weeks. Cardiovascular: Denies dizziness or syncope. Positive for: CHF, hyperlipidemia, hypertension and murmur/valvular heart disease Negative for: abdominal aortic aneurysm, AICD/PPM, angina, anticoagulation therapy, arrhythmia, atrial fibrillation, CAD, chest pain, congenital heart defect, DVT/PE, recent [place], PTCA, PVD, open heart surgery and valve surgery. GI: Positive for: liver disease Negative for: abdominal pain, GERD, GI bleed <30 days, hepatitis, nausea and vomiting. : +CKD Negative for: on dialysis, dysuria, frequent urination, hematuria, renal failure and urinary tract infection. 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 Endocrine: Positive for: diabetes mellitus and hypothyroidism. Patient's diabetes mellitus is controlled by insulin. Negative for: hyperthyroidism. Hematology: Positive for: anemia, bruises/bleeds easily and chronic anti-coagulation/platelet meds. Patient is on anti-coagulation/platelet medication(s): Aspirin. Negative for: factor V Leiden, hemophilia, thrombocytopenia, von Willebrand disease and transfusion of at least 4 units within 72 hours prior to surgery. Oncology: Hx thyroid cancer Negative for: CA metastasis, chemo within 30 days, disseminated cancer and radiotherapy within 90 days. Psych: No history of psychiatric symptoms or problems. Musculoskeletal: See HPI. Skin: Negative for lesions, rash and itching. PAST MEDICAL HISTORY Diagnosis Date (HFpEF) heart failure with preserved ejection fraction (HCC) 06/23/2015 Dr. 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) 02/06/2015 Coronary artery calcification seen on CAT scan 01/21/2013 Depressive disorder 03/31/2016 Diverticulosis 08/23/2010 Diverticulosis of colon (without mention of hemorrhage) Edema GERD without esophagitis 09/02/2019 Hearing loss HTN (hypertension) 08/12/2014 Hypertensive kidney disease with stage 3a chronic kidney disease (HCC) 08/12/2014 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) 06/30/2020 Ingrown toenail Morbid obesity (HCC) Obstructive sleep apnea CPAP Other and unspecified hyperlipidemia Other dyspnea and respiratory abnormality Palpitations Primary osteoarthritis of both hips 08/18/2020 Rosacea Symptomatic menopausal or female climacteric states 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 Type II or unspecified type diabetes mellitus without mention of complication, not stated as uncontrolled 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 07/10/2018 Unspecified intestinal obstruction 10/2018 PAST SURGICAL HISTORY Procedure Laterality Date APPENDECTOMY 05/20/2001 open ARTHRP KNE CONDYLE&PLATU MEDIAL&LAT COMPARTMENTS Left 08/18/2014 Knee replacement, total left ARTHRP KNE CONDYLE&PLATU MEDIAL&LAT COMPARTMENTS Right 06/12/2012 total right knee arthroplasty ; THYROIDECTOMY TOTAL OR COMPLETE Bilateral 12/15/2009 Papillary Ca CHOLECYSTECTOMY 05/20/2001 Cholecystectomy-lap COLONOSCOPY FLX DX W/COLLJ SPEC WHEN PFRMD 06/06/2004 COLONOSCOPY FLX DX W/COLLJ SPEC WHEN PFRMD 08/23/2010 EXCISION EXCESSIVE SKIN & SUBQ TISSUE OTHER AREA 01/17/2002 Abdominoplasty EXPLORATORY LAPAROTOMY, CELIOTOMY-SP 06/24/2020 Takedown of enteroprosthetic fistula.Small bowel resection anastosmosis. Removal infected mesh. Recurrent vental hernia repair. HIP ARTHROSCOPY W/SYNOVECTOMY Right 09/19/2021 exc.seroma; gluteus repair; rotium augmentation; trochanteric bursectomy, iliotibial band resection LAPAROCOPIC SLEEVE GASTRECTOMY 03/10/2019 Extensive laparoscopic lysis of adhesions. EGD. Lap. TAP block. LEFT HEART CATH,PERCUTANEOUS 09/13/2017 no significant CAD NEPHRECTOMY PARTIAL Right 03/1991 Right side for benign tumor, small lesion removed REPAIR FIRST ABDOMINAL WALL HERNIA 09/25/2005 7 times total RPR 1ST INCAL/VNT HERNIA INCARCERATED 06/11/2007 with mesh TOTAL ABDOMINAL HYSTERECT W/WO RMVL TUBE OVARY 05/20/2001 PER, for fibroids and BSO TOTAL HIP REPLACEMENT Right 10/20/2020 anterior minimally invasive right total hip FAMILY HISTORY Problem Relation Age of Onset COPD Mother at 64 yoa Ischemic Heart Disease Father Mi at 61 yoa Hypertension Sister 2 years younger Coronary Artery Disease Sister Stroke Sister Diabetes Sister GI Brother cirrhosis other (AAA rupture) Brother Lung cancer, 49 yoa other (parkinson) Son 41 Diabetes Maternal Aunt Cancer Paternal Aunt Cervical cancer Diabetes Paternal Aunt Heart Paternal Uncle Diabetes Paternal Grandfather Anesthesia Problems No Family History Social History Tobacco Use Smoking status: Former Packs/day: 2.00 Years: 15.00 Additional pack years: 0.00 Total pack years: 30.00 Types: Cigarettes Quit date: 09/10/1991 Years since quittin.3 Smokeless tobacco: Never Vaping Use Vaping Use: Never used Substance Use Topics Alcohol use: No Drug use: No Prior to Admission medications as of 01/09/24 1209 Medication Sig Last Dose Taking nitroglycerin sublingual (NITROQUICK) 0.4 mg SL tablet Dissolve 1 tablet under the tongue as needed. FOR CHEST PAIN. IF NO RELIEF CALL 911 Taking Yes DULoxetine (CYMBALTA) 60 mg capsule Take 1 capsule by mouth once daily. Taking Yes insulin glargine U-300 conc (TOUJEO SOLOSTAR U-300 INSULIN) 300 unit/mL (1.5 mL) take 24 units twice a day, max daily dose 60 units Taking Yes memantine (NAMENDA) 10 mg tablet Take 1 tablet by mouth two times a day. Taking Yes metoprolol tartrate, short acting, (LOPRESSOR) 25 mg tablet Take 1 tablet by mouth two times a day. Taking Yes lidocaine (LIDODERM) 5 % Apply 1 Patch as directed every 12 hours. Remove old patch prior to placing new patch. Location: arms, left rib. 12 hours on, 12 hours off. Taking Yes furosemide (LASIX) 40 mg tablet Take 40 mg by mouth once daily. Per Dr. Lilian Vance, nephrology. Taking Yes colchicine 0.6 mg tablet Take 2 tabs by mouth, followed by 1 tab one hour later for gout flare. May repeat in 1 week. Taking Yes allopurinol (ZYLOPRIM) 300 mg tablet Take 1 tablet by mouth once daily. For gout. Taking Yes levothyroxine (SYNTHROID) 175 mcg tablet 7 & 1/2 pills per week (one a day with extra half pill on Sunday) Taking Yes insulin lispro (HUMALOG) 200 unit/mL (3 mL) injection take up to 165 units daily Taking Yes glucagon 3 mg/actuation nasal spray (BAQSIMI) Use 1 [place] in the nose as needed for low blood sugar. May repeat after 15 minutes using a new device if there is no response. Taking Yes insulin aspart U-100 (NOVOLOG FLEXPEN U-100 INSULIN) 100 unit/mL (3 mL) 14 in AM, 14 at lunch, 14 at supper, 10 at bed, plus extra based on sugars, max daily dose 100 units plus sliding scale Taking Yes evolocumab (REPATHA SURECLICK) 140 mg/mL pen injector Inject 140 mg subcutaneously every 2 weeks. Per [facility]. Taking Yes diclofenac (VOLTAREN) 1 % topical gel Apply 4 g to affected area four times daily. Taking Yes ferrous sulfate 325 mg (65 mg iron) tablet Take 325 mg by mouth twice daily with meals. Taking Yes calcium citrate (CITRACAL ORAL) Take 2 tablets by mouth twice daily. Taking Yes multivit-min/iron/folic acid/K (BARIATRIC MULTIVITAMINS ORAL) Take by mouth. Taking Yes fluticasone (FLONASE) 50 mcg/actuation nasal spray Use 2 Sprays in each nostril once daily. Taking Yes polyethylene glycol 3350(MIRALAX 100 % ORAL POWDER) 17 grams/8 0z water daily Taking Yes ASA LOW DOSE 81MG TAB EC Take one(1) tablet daily. Taking Yes mupirocin (BACTROBAN) 2 % ointment two times a day for 5 days. Apply 0.5 inch with cotton swab (Q-tip) to each nostril in the morning and evening for 5 days prior to and including day of surgery. blood sugar diagnostic (ACCU-CHEK ANNALISE PLUS TEST STRP) test strip Use to check blood sugar 4 times daily donepezil (ARICEPT) 10 mg tablet Take 1 tablet by mouth daily at bedtime. gabapentin (NEURONTIN) 400 mg capsule Take 1 capsule by mouth daily at bedtime for 180 days. Insulin Wales, Disposable, (BD ULTRAFINE III MINI PEN) 31 gauge x 3/16 1 Each as directed. 6 times daily. Dx:E11.40. On multiple insulin doses. Blood-Glucose Transmitter (DEXCOM G6 TRANSMITTER) claudia change every 3 weeks Lancets (ACCU-CHEK SOFTCLIX LANCETS) lancets Checking blood sugars 4 times daily. Dx: E11.42 CPAP Auto bilevel with humidity set as follows: IPAP max 24, EPAP min 8 and PS 4-6 cmH2O. Comfort settings TiMax 2.0, TiMin 0.3, Trigger -M, Cycle-M. Continue using ResMed N20 nasal mask interface. docusate sodium (COLACE ORAL) Take by mouth. lactulose (DUPHALAC, CONSTULOSE) 10 gram/15 mL solution 30 mL q 24 HR. BIPAP COMPOUNDED PRESCRIPTION Initiate BiPAP @ 15/9 cm of water with humidification. Mask (per patient preference) optional chin strap (if indicated) , filters, tubing, humidifier and lifetime supplies. Dx. ABDI 327.23 No medication comments found. ALLERGIES Allergen Reactions Adhesive Tape (Jamila* Other: See Comments Contact celluitis Crestor [Rosuvastat* Intolerance Lantus [Insulin Gla* Intolerance burning at local injection site Nickel Rash in jewelry; also Palladium which cross reacts with nickel in some cases. Palladium Rash Pravastatin Intolerance Muscle cramps Toradol [Ketorolac] Hives Objective PHYSICAL EXAM: General: alert and oriented, healthy appearance and confused. Pertinent negatives noted - not distressed. Skin: normal color, no rash or lesions. HEENT: EOM intact, pupils equal round and pupils reactive to light. Pertinent negatives noted - no carotid bruit. Cardiovascular: regular rate and rhythm, normal S1 and S2, no rub, murmurs, or gallop. Respiratory: normal breath sounds, no wheezes or crackles. No chest wall deformity or tenderness. Abdomen: bowel sounds present and soft. Pertinent negatives noted - not tender. Extremities: Positive for edema (+ non pit b/l le) and joint tenderness. Pertinent negatives noted - no cellulitis, no deformity, no abnormal pulses, no ulcer, no vascular insufficiency and no varicose veins. Neurological: normal cognition and motor skills. Gait normal. No weakness or sensory deficit. Positive for confusion. PAIN ASSESSMENT: Pain Pain Level: 10 Pain Location: Hip-Left Description: Sharp, Shooting Duration Units: Years Frequency: Continuous Intervention/Comfort measure: Medication VITALS: BP 94/68 Pulse 68 Temp (Src) 98.4 (Temporal) Resp 14 Ht 5' .5 (1.54m) Wt 191 lb (86.6kg) SpO2 96% LMP 06/27/2011 BMI 36.67 kg/(m^2). Diagnostic tests reviewed for today's visit: Lab Value Units Date High Low HB 12.7 g/dL 08/23/2023 15.5 11.5 HCT 38.2 % 08/23/2023 46.0 36.0 WBC 9.79 k/uL 08/23/2023 11.00 3.70 PLT 203 k/uL 08/23/2023 400 150 NA 141 mmol/L 08/23/2023 144 136 K 4.2 mmol/L 08/23/2023 5.1 3.7 GLUC 112 mg/dL 08/23/2023 99 74 BUN 15 mg/dL 08/23/2023 21 7 CREAT 1.04 mg/dL 08/23/2023 0.96 0.58 PTSEC No results within date range. INR No results within date range. APTT No results within date range. ALT No results within date range. AST No results within date range. TBILI No results within date range. TSH 0.206 mIU/L 10/19/2023 4.200 0.270 Lab Value Units Date High Low HCGQT No results within date range. UHCG No results within date range. HCG, BODY* No results within date range. Lab Value Units Date High Low ABORHD No results within date range. ABSCREEN No results within date range. Hemoglobin A1C (%) Date Value 10/19/2023 6.2 07/30/2023 6.1 08/29/2022 6.0 11/28/2021 6.2 05/31/2021 7.2 06/10/2020 8.2 02/20/2020 7.5 08/27/2018 6.5 09/08/2017 6.8 Hemoglobin A1C (POCT) (%) Date Value 01/31/2023 6.6 12/17/2020 6.0 08/29/2019 6.8 06/02/2019 6.1 03/06/2019 8.1 Recent Results (from the past 8760 hour(s)) ECG COMPLETE Collection Time: 01/09/24 12:01 PM Result Value Ventricular Rate 68 Atrial Rate 68 P-R Interval 168 QRS Duration 94 QT Interval 422 QTC Calculation (Bazett) 448 Calculated P [place] 45 Calculated R [place] -61 Calculated T [place] 5 Impression NORMAL SINUS RHYTHM LEFT AXIS DEVIATION LOW VOLTAGE QRS, CONSIDER PULMONARY DISEASE, PERICARDIAL EFFUSION, OR NORMAL VARIANT POSSIBLE ANTEROLATERAL INFARCTION , AGE UNDETERMINED ABNORMAL ECG No results found for this or any previous visit (from the past 50060 hour(s)). Instructions Given to Patient: Instructions located in the after visit summary. Patient given verbal and written preop instructions and voices comprehension and compliance. SIGNATURE: Mitra Landin APRN.CNP PATIENT NAME: Bhakti Kirkpatrick DATE: January 09, 2024 TIME: 11:47 AM PAGER/CONTACT #: [facility] 01-09-2024 History and physical note Images from the original note were not included. HISTORY AND PHYSICAL EXAMINATION SERVICE DATE: 01/09/2024 SERVICE TIME: 12:40 PM PRIMARY CARE PHYSICIAN: Jesus Davila MD Assessment Patient has the following medical conditions which may affect kale-operative course: Type 2 diabetes mellitus with diabetic neuropathy, with long-term current use of insulin (HCC) Assessment: Reports compliance to medication. Reports BS checks 131. Following with endocrine. Encouraged lifestyle modifications. Hemoglobin A1C (%) Date Value 10/19/2023 6.2 07/30/2023 6.1 05/31/2021 7.2 06/10/2020 8.2 Hemoglobin A1C (POCT) (%) Date Value 01/31/2023 6.6 12/17/2020 6.0 Arteriosclerotic heart disease (ASHD) Assessment: Denies any new or worsening cardiac symptoms. Follows electric wirer, Dr. Dickerson at [facility], last OV in October. Reports compliance to medication. Pending echo. Ejection Fraction - Result: 69 % Date: 03/09/2016 Time: 11:13:38 (HFpEF) heart failure with preserved ejection fraction (HCC) Assessment: Follows cardiology, , last OV. Compliant on medications. Appears euvolemic, denies new or worsening cardiac symptoms. Noted to have edema b/l LE, PRN lasix. Reports at baseline per . Ejection Fraction - Result: 69 % Date: 03/09/2016 Time: 11:13:38 ABDI treated with BiPAP Assessment: Non Compliant on device. GERD without esophagitis Assessment: Controlled. Advised avoidance of triggers. Following with PCP. S/P laparoscopic sleeve gastrectomy Assessment: There is no height or weight on file to calculate BMI. Fatty liver Assessment: Follows GI, PCP CMP: Glucose 112 08/23/2023 BUN 15 08/23/2023 Creatinine 1.04 08/23/2023 Sodium 141 08/23/2023 Potassium 4.2 08/23/2023 Chloride 102 08/23/2023 CO2 27 08/23/2023 Protein, Total 6.8 08/29/2022 Albumin 4.2 08/29/2022 Calcium 9.7 08/23/2023 Alkaline Phosphatase 94 08/29/2022 Bilirubin, Total 0.4 08/29/2022 AST 19 08/29/2022 ALT 16 08/29/2022 Chronic kidney disease, stage IV (severe) (HCC) Assessment: Follows nephrology, Dr. Vance. Latest Ref Rng & Units 08/23/2023 02/21/2023 08/29/2022 BMP Glucose 74 - 99 mg/dL 112 208 244 BUN 7 - 21 mg/dL 15 21 28 Creatinine 0.58 - 0.96 mg/dL 1.04 1.10 1.14 Sodium 136 - 144 mmol/L 141 140 140 Potassium 3.7 - 5.1 mmol/L 4.2 3.9 4.2 Chloride 97 - 105 mmol/L 102 99 100 CO2 22 - 30 mmol/L 27 30 28 Anion Gap 9 - 18 mmol/L 12 11 12 Calcium 8.5 - 10.2 mg/dL 9.7 9.8 9.8 EGFR >=60 mL/min/1.73m 56 53 50 History of thyroid cancer Assessment: s/p thyroidectomy. Compliant on levothyroxine. Denies recent dose adjustments. Following with PCP. TSH Date Value 10/19/2023 0.206 mIU/L 01/05/2023 0.976 mIU/L 04/19/2021 4.560 uU/mL 03/01/2021 6.940 uU/mL Anemia Assessment: Follows with PCP, pending labs repeated. Hemoglobin (g/dL) Date Value 08/23/2023 12.7 05/31/2021 10.9 Hematocrit (%) Date Value 08/23/2023 38.2 05/31/2021 33.1 WBC (k/uL) Date Value 08/23/2023 9.79 05/31/2021 6.24 Platelet Count (k/uL) Date Value 08/23/2023 203 05/31/2021 184 Cognitive impairment Assessment: +dementia, here with . On rx at this time, follows neurology. Hyperlipidemia Assessment: Complaint on statin therapy. Encouraged lifestyle modifications. Edema Assessment: b/l LE chronic, intermittent. PRN lasix. [place] Activity Status Index: METS: Walk indoors, such as around the house (1.75 METs) DASI Score: 1.75 (baseline) Patient denies any chest pain or undue shortness of breath with the above physical activity. Patient is limited most or all of the time (uses scooter, mobility device). Clinical Frailty Scale: 6. Moderately frail STOP-Bang Score: STOP-Bang Score: (+abdi ) [id number] Score: Age: >=75 Sex: female CHF history: Yes Hypertension history: Yes Stroke/TIA/thromboembolism history: No Vascular disease history: No Diabetes history: Yes [id number] Score: 6 ANESTHESIA FINDINGS: Intubation History: No history of difficult intubation. No abnormal airway history Significant Anesthesia Considerations: potential slow emergence Airway History: No history of difficult airway No abnormal airway history I - PHYSICAL EVALUATION AIRWAY Patient intubated: No. Tracheostomy tube not present Mallampati: II. TM distance: >3 FB. Neck ROM: full ROM without neurological symptoms. Mouth opening: adequate. Short neck: no. Thick neck: no Microretrognathia/Micronagthia/Re cessed Chin: No DENTAL Dental findings: teeth intact. II - ANESTHESIA PLAN Anesthetic plan additional comments: *PACC/TCI - anesthesia choice. Beta Sana Monitoring Plan Post Procedure Analgesic Plan Prepared for Surgery: optimally prepared for surgery, pending [see comment]. Pending EKG, labs, ECHO. Mupirocin ordered ECHO pending Sunday Will reach out to Dr. Jiang's office once ECHO is complete on Sunday for optimization. CONSULTS: The following consults have been initiated at this time: cardiology. Planned Anesthetic: anesthesia choice The Following Tests/Procedures Have Been Initiated: Orders Placed This Encounter Hemoglobin A1C Standing Status: Future Standing Expiration Date: 04/09/2024 Ferritin Standing Status: Future Standing Expiration Date: 04/09/2024 Hepatic Function Panel Standing Status: Future Standing Expiration Date: 04/09/2024 Iron and TIBC Standing Status: Future Standing Expiration Date: 04/09/2024 CONSULT TO GERIATRICS Standing Status: Future Scheduling Instructions: Reason for Consultation: Pre-surgery optimization Locations: [facility], [address] [place] [address], and [facility], [address], Order Specific Question: Consult Type Answer: Geriatric Order Specific Question: Reason for Consultation Answer: Advance Care Planning/Goals of Care Order Specific Question: Reason for Consultation Answer: Dementia Order Specific Question: Reason for Consultation Answer: Falls/Frailty Order Specific Question: Location Answer: [facility] Order Specific Question: Does consulting provider have [facility] Epic access? Answer: Yes mupirocin (BACTROBAN) 2 % ointment Sig: two times a day for 5 days. Apply 0.5 inch with cotton swab (Q-tip) to each nostril in the morning and evening for 5 days prior to and including day of surgery. Dispense: 22 g Refill: 0 REASON FOR VISIT: Bhakti Kirkpatrick is a 78 year old female who is scheduled for Procedure(s): ARTHROPLASTY REPLACE JOINT TOTAL HIP (Left) at the request of Clyde Fraser MD for consultation. My final recommendation will be communicated back to the requesting physician by way of shared medical record or letter. 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 Kidney Disease (Hcc) Degenerative Arthritis of Knee Myalgia Hyperlipidemia (Hfpef) Heart Failure With Preserved Ejection Fraction (Hcc) Fatty Liver History of Thyroid Cancer Type 2 Diabetes Mellitus With Stage 4 Chronic Kidney Disease, With Long-Term Current Use of Insulin (Hcc) Depression, Recurrent (Hcc) Chronic Kidney Disease, Stage IV (Severe) (Hcc) S/P Laparoscopic Sleeve Gastrectomy Gerd Without Esophagitis Sensory Hearing Loss, Bilateral Class 3 Severe Obesity With Body Mass Index (Bmi) of 45.0 to 49.9 in Adult (Hcc) Type 2 Diabetes Mellitus With Diabetic Neuropathy, With Long-Term Current Use of Insulin (Hcc) Primary Osteoarthritis of Both Hips Vertigo Cognitive Impairment Circadian Rhythm Sleep Disorder, Irregular Sleep Wake Type Anemia Acute Gout Dysuria Urinary Frequency Cloudy Urine COVID-19 Immunization Status Overdue - Covid-19 Vaccine () Overdue since 11/25/2023 07/27/2023 Imm Admin: COVID-19 vaccine, age 12+ yr, season (PFIZER-BIONTC2C REI Software) 06/02/2022 Imm Admin: COVID-19 vaccine, age 12+ yr, bivalent (NanoTune-BIONTECH) 02/08/2022 Imm Admin: COVID-19 original vaccine, age 12+ yr, monovalent (NanoTune-BIONTC2C REI Software - PURPLE TOP) Only the first 3 history entries have been loaded, but more history exists. CHIEF COMPLAINT: pre op HPI: Patient is a 78 year old female presenting with left hip pain for many months. Denies specific injury. Reports pain today of 10/10, described as sharp. Denies swelling, occassional numbness or tingling. Has tried conservative methods with little relief. Patient denies other specific radiating, alleviating, or aggravating factors. Pt has hx of dementia, Edward presenting with medical hx REVIEW OF SYSTEMS: General: No weight loss, malaise or fevers. Neurological: Positive for: dementia. 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 Respiratory: Positive for: bronchitis, obstructive sleep apnea and CPAP/BiPAP noncompliant. Negative for: asthma, COPD, current cough, dyspnea, home oxygen, orthopnea, tobacco use and URI < 2 weeks. Cardiovascular: Denies dizziness or syncope. Positive for: CHF, hyperlipidemia, hypertension and murmur/valvular heart disease Negative for: abdominal aortic aneurysm, AICD/PPM, angina, anticoagulation therapy, arrhythmia, atrial fibrillation, CAD, chest pain, congenital heart defect, DVT/PE, recent [place], PTCA, PVD, open heart surgery and valve surgery. GI: Positive for: liver disease Negative for: abdominal pain, GERD, GI bleed <30 days, hepatitis, nausea and vomiting. : +CKD Negative for: on dialysis, dysuria, frequent urination, hematuria, renal failure and urinary tract infection. 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 Endocrine: Positive for: diabetes mellitus and hypothyroidism. Patient's diabetes mellitus is controlled by insulin. Negative for: hyperthyroidism. Hematology: Positive for: anemia, bruises/bleeds easily and chronic anti-coagulation/platelet meds. Patient is on anti-coagulation/platelet medication(s): Aspirin. Negative for: factor V Leiden, hemophilia, thrombocytopenia, von Willebrand disease and transfusion of at least 4 units within 72 hours prior to surgery. Oncology: Hx thyroid cancer Negative for: CA metastasis, chemo within 30 days, disseminated cancer and radiotherapy within 90 days. Psych: No history of psychiatric symptoms or problems. Musculoskeletal: See HPI. Skin: Negative for lesions, rash and itching. PAST MEDICAL HISTORY Diagnosis Date (HFpEF) heart failure with preserved ejection fraction (HCC) 06/23/2015 Dr. 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) 02/06/2015 Coronary artery calcification seen on CAT scan 01/21/2013 Depressive disorder 03/31/2016 Diverticulosis 08/23/2010 Diverticulosis of colon (without mention of hemorrhage) Edema GERD without esophagitis 09/02/2019 Hearing loss HTN (hypertension) 08/12/2014 Hypertensive kidney disease with stage 3a chronic kidney disease (HCC) 08/12/2014 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) 06/30/2020 Ingrown toenail Morbid obesity (HCC) Obstructive sleep apnea CPAP Other and unspecified hyperlipidemia Other dyspnea and respiratory abnormality Palpitations Primary osteoarthritis of both hips 08/18/2020 Rosacea Symptomatic menopausal or female climacteric states 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 Type II or unspecified type diabetes mellitus without mention of complication, not stated as uncontrolled 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 07/10/2018 Unspecified intestinal obstruction 10/2018 PAST SURGICAL HISTORY Procedure Laterality Date APPENDECTOMY 05/20/2001 open ARTHRP KNE CONDYLE&PLATU MEDIAL&LAT COMPARTMENTS Left 08/18/2014 Knee replacement, total left ARTHRP KNE CONDYLE&PLATU MEDIAL&LAT COMPARTMENTS Right 06/12/2012 total right knee arthroplasty ; THYROIDECTOMY TOTAL OR COMPLETE Bilateral 12/15/2009 Papillary Ca CHOLECYSTECTOMY 05/20/2001 Cholecystectomy-lap COLONOSCOPY FLX DX W/COLLJ SPEC WHEN PFRMD 06/06/2004 COLONOSCOPY FLX DX W/COLLJ SPEC WHEN PFRMD 08/23/2010 EXCISION EXCESSIVE SKIN & SUBQ TISSUE OTHER AREA 01/17/2002 Abdominoplasty EXPLORATORY LAPAROTOMY, CELIOTOMY-SP 06/24/2020 Takedown of enteroprosthetic fistula.Small bowel resection anastosmosis. Removal infected mesh. Recurrent vental hernia repair. HIP ARTHROSCOPY W/SYNOVECTOMY Right 09/19/2021 exc.seroma; gluteus repair; rotium augmentation; trochanteric bursectomy, iliotibial band resection LAPAROCOPIC SLEEVE GASTRECTOMY 03/10/2019 Extensive laparoscopic lysis of adhesions. EGD. Lap. TAP block. LEFT HEART CATH,PERCUTANEOUS 09/13/2017 no significant CAD NEPHRECTOMY PARTIAL Right 03/1991 Right side for benign tumor, small lesion removed REPAIR FIRST ABDOMINAL WALL HERNIA 09/25/2005 7 times total RPR 1ST INCAL/VNT HERNIA INCARCERATED 06/11/2007 with mesh TOTAL ABDOMINAL HYSTERECT W/WO RMVL TUBE OVARY 05/20/2001 PER, for fibroids and BSO TOTAL HIP REPLACEMENT Right 10/20/2020 anterior minimally invasive right total hip FAMILY HISTORY Problem Relation Age of Onset COPD Mother at 64 yoa Ischemic Heart Disease Father Mi at 61 yoa Hypertension Sister 2 years younger Coronary Artery Disease Sister Stroke Sister Diabetes Sister GI Brother cirrhosis other (AAA rupture) Brother Lung cancer, 49 yoa other (parkinson) Son 41 Diabetes Maternal Aunt Cancer Paternal Aunt Cervical cancer Diabetes Paternal Aunt Heart Paternal Uncle Diabetes Paternal Grandfather Anesthesia Problems No Family History Social History Tobacco Use Smoking status: Former Packs/day: 2.00 Years: 15.00 Additional pack years: 0.00 Total pack years: 30.00 Types: Cigarettes Quit date: 09/10/1991 Years since quittin.3 Smokeless tobacco: Never Vaping Use Vaping Use: Never used Substance Use Topics Alcohol use: No Drug use: No Prior to Admission medications as of 01/09/24 1209 Medication Sig Last Dose Taking nitroglycerin sublingual (NITROQUICK) 0.4 mg SL tablet Dissolve 1 tablet under the tongue as needed. FOR CHEST PAIN. IF NO RELIEF CALL 911 Taking Yes DULoxetine (CYMBALTA) 60 mg capsule Take 1 capsule by mouth once daily. Taking Yes insulin glargine U-300 conc (TOUJEO SOLOSTAR U-300 INSULIN) 300 unit/mL (1.5 mL) take 24 units twice a day, max daily dose 60 units Taking Yes memantine (NAMENDA) 10 mg tablet Take 1 tablet by mouth two times a day. Taking Yes metoprolol tartrate, short acting, (LOPRESSOR) 25 mg tablet Take 1 tablet by mouth two times a day. Taking Yes lidocaine (LIDODERM) 5 % Apply 1 Patch as directed every 12 hours. Remove old patch prior to placing new patch. Location: arms, left rib. 12 hours on, 12 hours off. Taking Yes furosemide (LASIX) 40 mg tablet Take 40 mg by mouth once daily. Per Dr. Lilian Vance, nephrology. Taking Yes colchicine 0.6 mg tablet Take 2 tabs by mouth, followed by 1 tab one hour later for gout flare. May repeat in 1 week. Taking Yes allopurinol (ZYLOPRIM) 300 mg tablet Take 1 tablet by mouth once daily. For gout. Taking Yes levothyroxine (SYNTHROID) 175 mcg tablet 7 & 1/2 pills per week (one a day with extra half pill on Sunday) Taking Yes insulin lispro (HUMALOG) 200 unit/mL (3 mL) injection take up to 165 units daily Taking Yes glucagon 3 mg/actuation nasal spray (BAQSIMI) Use 1 [place] in the nose as needed for low blood sugar. May repeat after 15 minutes using a new device if there is no response. Taking Yes insulin aspart U-100 (NOVOLOG FLEXPEN U-100 INSULIN) 100 unit/mL (3 mL) 14 in AM, 14 at lunch, 14 at supper, 10 at bed, plus extra based on sugars, max daily dose 100 units plus sliding scale Taking Yes evolocumab (REPATHA SURECLICK) 140 mg/mL pen injector Inject 140 mg subcutaneously every 2 weeks. [facility]. Taking Yes diclofenac (VOLTAREN) 1 % topical gel Apply 4 g to affected area four times daily. Taking Yes ferrous sulfate 325 mg (65 mg iron) tablet Take 325 mg by mouth twice daily with meals. Taking Yes calcium citrate (CITRACAL ORAL) Take 2 tablets by mouth twice daily. Taking Yes multivit-min/iron/folic acid/K (BARIATRIC MULTIVITAMINS ORAL) Take by mouth. Taking Yes fluticasone (FLONASE) 50 mcg/actuation nasal spray Use 2 Sprays in each nostril once daily. Taking Yes polyethylene glycol 3350(MIRALAX 100 % ORAL POWDER) 17 grams/8 0z water daily Taking Yes ASA LOW DOSE 81MG TAB EC Take one(1) tablet daily. Taking Yes mupirocin (BACTROBAN) 2 % ointment two times a day for 5 days. Apply 0.5 inch with cotton swab (Q-tip) to each nostril in the morning and evening for 5 days prior to and including day of surgery. blood sugar diagnostic (ACCU-CHEK ANNALISE PLUS TEST STRP) test strip Use to check blood sugar 4 times daily donepezil (ARICEPT) 10 mg tablet Take 1 tablet by mouth daily at bedtime. gabapentin (NEURONTIN) 400 mg capsule Take 1 capsule by mouth daily at bedtime for 180 days. Insulin [place], Disposable, (BD ULTRAFINE III MINI PEN) 31 gauge x 3/16 1 Each as directed. 6 times daily. Dx:E11.40. On multiple insulin doses. Blood-Glucose Transmitter (DEXCOM G6 TRANSMITTER) claudia change every 3 weeks Lancets (ACCU-CHEK SOFTCLIX LANCETS) lancets Checking blood sugars 4 times daily. Dx: E11.42 CPAP Auto bilevel with humidity set as follows: IPAP max 24, EPAP min 8 and PS 4-6 cmH2O. Comfort settings TiMax 2.0, TiMin 0.3, Trigger -M, Cycle-M. Continue using ResMed N20 nasal mask interface. docusate sodium (COLACE ORAL) Take by mouth. lactulose (DUPHALAC, CONSTULOSE) 10 gram/15 mL solution 30 mL q 24 HR. BIPAP COMPOUNDED PRESCRIPTION Initiate BiPAP @ 15/9 cm of water with humidification. Mask (per patient preference) optional chin strap (if indicated) , filters, tubing, humidifier and lifetime supplies. Dx. ABDI 327.23 No medication comments found. ALLERGIES Allergen Reactions Adhesive Tape (Jamila* Other: See Comments Contact celluitis Crestor [Rosuvastat* Intolerance Lantus [Insulin Gla* Intolerance burning at local injection site Nickel Rash in jewelry; also Palladium which cross reacts with nickel in some cases. Palladium Rash Pravastatin Intolerance Muscle cramps Toradol [Ketorolac] Hives Objective PHYSICAL EXAM: General: alert and oriented, healthy appearance and confused. Pertinent negatives noted - not distressed. Skin: normal color, no rash or lesions. HEENT: EOM intact, pupils equal round and pupils reactive to light. Pertinent negatives noted - no carotid bruit. Cardiovascular: regular rate and rhythm, normal S1 and S2, no rub, murmurs, or gallop. Respiratory: normal breath sounds, no wheezes or crackles. No chest wall deformity or tenderness. Abdomen: bowel sounds present and soft. Pertinent negatives noted - not tender. Extremities: Positive for edema (+ non pit b/l le) and joint tenderness. Pertinent negatives noted - no cellulitis, no deformity, no abnormal pulses, no ulcer, no vascular insufficiency and no varicose veins. Neurological: normal cognition and motor skills. Gait normal. No weakness or sensory deficit. Positive for confusion. PAIN ASSESSMENT: Pain Pain Level: 10 Pain Location: Hip-Left Description: Sharp, Shooting Duration Units: Years Frequency: Continuous Intervention/Comfort measure: Medication VITALS: BP 94/68 Pulse 68 Temp (Src) 98.4 (Temporal) Resp 14 Ht 5' .5 (1.54m) Wt 191 lb (86.6kg) SpO2 96% LMP 06/27/2011 BMI 36.67 kg/(m^2). Diagnostic tests reviewed for today's visit: Lab Value Units Date High Low HB 12.7 g/dL 08/23/2023 15.5 11.5 HCT 38.2 % 08/23/2023 46.0 36.0 WBC 9.79 k/uL 08/23/2023 11.00 3.70 PLT 203 k/uL 08/23/2023 400 150 NA 141 mmol/L 08/23/2023 144 136 K 4.2 mmol/L 08/23/2023 5.1 3.7 GLUC 112 mg/dL 08/23/2023 99 74 BUN 15 mg/dL 08/23/2023 21 7 CREAT 1.04 mg/dL 08/23/2023 0.96 0.58 PTSEC No results within date range. INR No results within date range. APTT No results within date range. ALT No results within date range. AST No results within date range. TBILI No results within date range. TSH 0.206 mIU/L 10/19/2023 4.200 0.270 Lab Value Units Date High Low HCGQT No results within date range. UHCG No results within date range. HCG, BODY* No results within date range. Lab Value Units Date High Low ABORHD No results within date range. ABSCREEN No results within date range. Hemoglobin A1C (%) Date Value 10/19/2023 6.2 07/30/2023 6.1 08/29/2022 6.0 11/28/2021 6.2 05/31/2021 7.2 06/10/2020 8.2 02/20/2020 7.5 08/27/2018 6.5 09/08/2017 6.8 Hemoglobin A1C (POCT) (%) Date Value 01/31/2023 6.6 12/17/2020 6.0 08/29/2019 6.8 06/02/2019 6.1 03/06/2019 8.1 Recent Results (from the past 8760 hour(s)) ECG COMPLETE Collection Time: 01/09/24 12:01 PM Result Value Ventricular Rate 68 Atrial Rate 68 P-R Interval 168 QRS Duration 94 QT Interval 422 QTC Calculation (Bazett) 448 Calculated P [place] 45 Calculated R [place] -61 Calculated T [place] 5 Impression NORMAL SINUS RHYTHM LEFT AXIS DEVIATION LOW VOLTAGE QRS, CONSIDER PULMONARY DISEASE, PERICARDIAL EFFUSION, OR NORMAL VARIANT POSSIBLE ANTEROLATERAL INFARCTION , AGE UNDETERMINED ABNORMAL ECG No results found for this or any previous visit (from the past 49476 hour(s)). Instructions Given to Patient: Instructions located in the after visit summary. Patient given verbal and written preop instructions and voices comprehension and compliance. SIGNATURE: Mitra Landin APRN.CNP PATIENT NAME: Bhakti Kirkpatrick DATE: January 09, 2024 TIME: 11:47 AM PAGER/CONTACT #: documented in this encounter [facility] 01-09-2024 Instructions Mitra Landin APRN.CNP - 01/09/2024 11:42 AM EDT PATIENT PREOPERATIVE INSTRUCTIONS Dr. Beltran has scheduled you for your procedure at this surgery center: [facility] [place] [facility] Scheduling Office: [phone] [place] [address]. Please read below carefully for your personalized instructions. Arrival Time for Surgery: - To obtain your arrival time for surgery, call your physician's office the day before your surgery. - If your surgery is scheduled for Sunday, call the Sunday before. Your surgeon s imaging scheduler will tell you what time to call the office. - If you have not reached the departmental imaging scheduler by 5 P.M., call [phone] after 5 P.M. the day before your surgery. Dietary Restrictions: - No solid food after midnight. - You may have 12 ounces of clear liquids (water, clear juices such as apple juice or gatorade, carbonated beverages, clear tea, black coffee, jello) until 2 hours before scheduled arrival at facility. - Do not drink any alcohol after midnight the night before your surgery. Medications: Pre-Surgery Med Instructions Medication Instructions nitroglycerin sublingual (NITROQUICK) 0.4 mg SL tablet If needed DULoxetine (CYMBALTA) 60 mg capsule Take the day of surgery with a small sip of water insulin glargine U-300 conc (TOUJEO SOLOSTAR U-300 INSULIN) 300 unit/mL (1.5 mL) If you take your insulin at night, take 75% of the normal dose. If you take insulin in the morning, check your morning blood sugar. If it is 200 or greater, take half the prescribed dose (12 units). If your am blood sugar is less than 200, do not take any insulin. Night prior: 18 units memantine (NAMENDA) 10 mg tablet Do not take the day of surgery metoprolol tartrate, short acting, (LOPRESSOR) 25 mg tablet Take the day of surgery with a small sip of water lidocaine (LIDODERM) 5 % Do not take the day of surgery furosemide (LASIX) 40 mg tablet Do not take the day of surgery colchicine 0.6 mg tablet Do not take the day of surgery allopurinol (ZYLOPRIM) 300 mg tablet Take the day of surgery with a small sip of water levothyroxine (SYNTHROID) 175 mcg tablet Take the day of surgery with a small sip of water insulin lispro (HUMALOG) 200 unit/mL (3 mL) injection Do not take the day of surgery glucagon 3 mg/actuation nasal spray (BAQSIMI) If needed insulin aspart U-100 (NOVOLOG FLEXPEN U-100 INSULIN) 100 unit/mL (3 mL) Do not take the day of surgery evolocumab (REPATHA SURECLICK) 140 mg/mL pen injector Do not take the day of surgery diclofenac (VOLTAREN) 1 % topical gel Do not take the day of surgery ferrous sulfate 325 mg (65 mg iron) tablet Do not take the day of surgery polyethylene glycol 3350(MIRALAX 100 % ORAL POWDER) Do not take the day of surgery ASA LOW DOSE 81MG TAB EC Stop 7 days before surgery If you start any new medications after today's visit, please contact the surgeon's office. Apply 1/2 inch of the mupirocin ointment with a Q-tip to both nostrils in the morning and afternoon for 5 consecutive days before surgery. If you are scheduled for a pre-op Covid-19 test, please do not apply mupirocin the morning of your test. You may apply it right after the test instead. Blood Thinning Medications: - Stop NSAIDS (Ibuprofen, Advil, Aleve, Motrin, Celebrex, Mobic, etc.) 7 days before surgery, as directed by your surgeon. - Stop Aspirin 7 days before surgery, as directed by your surgeon. - Stop Vitamin E, ALL multi-vitamins, herbals and dietary supplements 14 days before surgery. - You may take Tylenol (Acetaminophen) or any of your pain medications that do not contain aspirin or NSAIDS as needed. Important Reminders: - If you use CPAP/BIPAP, bring the machine with you to the surgery center. - If you are prescribed inhalers for breathing, continue using them. If you are on dialysis, please check with your dialysis center or tar man to see if any adjustments need to be made to your schedule for the week of your surgery - Candy, mints, and tobacco products are NOT permitted the morning of surgery. - Hearing aids, dentures and glasses may be worn the morning of surgery. - NO jewelry, body piercings, makeup, hairpins or contacts are to be worn the day of surgery. If you develop symptoms such as a fever, cold, or flu, or have other changes to your health within TWO DAYS of scheduled surgery or the morning of surgery, please contact the surgery center above. Personal Belongings: -Please have photo ID and insurance cards. -If you do not have a copy of advance directives on file with us, please bring a copy with you on the day of surgery. - Leave ALL valuables and money at home or with family members. For Outpatient Procedures: - YOU MUST HAVE A RESPONSIBLE WAITER AND CASHIER TAKE YOU HOME. A MODELING DIRECTOR OR OPERATIONS CONTROLLER CANNOT BE MADE A RESPONSIBLE WAITER AND CASHIER. - We recommend that a responsible person stays with you overnight to take care of you. - You cannot stay in a hotel alone after outpatient surgery. You will not be permitted to have your surgery, if you do not have someone to take care of you. Please be aware that emergency situations arise, which may delay or change your surgical time. If this happens, we will notify you as soon as possible and regret any inconvenience. If you already have an Advance Directive, please fax a copy to [phone] or email to for it to be added to your chart. If you do not have an Advance Directive, you can find the appropriate form and more information at [email or web address]. We recommend that you complete the Advance Directive form found on the website and bring it with you the day of your surgery. It can be witnessed and scanned into your chart that day. Mitra Landin APRN.CNP documented in this encounter [facility] 01-09-2024 History of Present illness Narrative Radiology Service Progress Note PATIENT NAME: Bhakti Kirkpatrick DATE OF SERVICE: January 09, 2024 TIME: 10:56 AM PATIENT IDENTITY VERIFICATION COMPLETED USING TWO (2) IDENTIFIERS: Name and Date of confirmed by patient verbally. FALL SCREENING: Has the patient had 2 falls in the last year or 1 fall with injury or currently using an Ambulatory Assistive Device (Walker, Cane, Wheelchair, Crutches, etc.)? Yes, Patient High Risk for Falls What interventions were put in place to prevent falls during this visit? Offered Assistance with Transfers/Clothing and Increased Observations by Caregivers PATIENT GENDER DATA: Female. status: : No status: NO. PATIENT RELEVANT IMPLANT DATA REVIEWED: Yes PATIENT PRESENTS WITH AN IMPLANTABLE OR ATTACHED HRIS DEVELOPER: No RADIOLOGY DEPARTMENT: General X-ray: Exam(s) Completed: Pelvis X-Ray: Pelvis with Hip Left PERIPHERAL IV DATA: Not applicable SIGNED BY: RT Rola(R) January 09, 2024 10:56 AM documented in this encounter [facility] 01-09-2024 Note Formatting of this n ote might be different from the original. January 09, 2024 PID: [id number] Bhakti DuongGaro Kirkpatrick [address] [facility] [address] [place] [address] Dear Ms. Kirkpatrick, We are pleased to inform you that the results of your recent breast imaging exam on 01/07/2024 are normal. Early detection of cancer is very important. We also understand recommendations regarding breast cancer screening are controversial. Please discuss with your primary care provider which strategy is best for you and whether a mammogram is right for you. Your imaging studies and report will be kept on file at [facility] as part of your permanent medical record and are available for your continuing care. Thank you for allowing us to help in meeting your health care needs. Sincerely, Dr. Rodriguez Interpreting Radiologist [facility] (Normal over 40) [facility] 01-09-2024 Miscellaneous Notes January 09, 2024 PID: [id number] Bhakti Kirkpatrick [address] [facility] [address] [place] [address] Dear Ms. Kirkpatrick, We are pleased to inform you that the results of your recent breast imaging exam on 01/07/2024 are normal. Early detection of cancer is very important. We also understand recommendations regarding breast cancer screening are controversial. Please discuss with your primary care provider which strategy is best for you and whether a mammogram is right for you. Your imaging studies and report will be kept on file at [facility] as part of your permanent medical record and are available for your continuing care. Thank you for allowing us to help in meeting your health care needs. Sincerely, Dr. Rodriguez Interpreting Radiologist [facility] (Normal over 40) documented in this encounter [facility] 01-07-2024 Telephone encounter Note Patient has been identified by name and date of : Yes, Patient phones for refill(s): Requested Prescriptions Pending Prescriptions Disp Refills nitroglycerin sublingual (NITROQUICK) 0.4 mg SL tablet Sig: Dissolve 1 tablet under the tongue as needed. FOR CHEST PAIN. IF NO RELIEF CALL 911 Patient seen in Neurology, Nitroglycerin . Last OV 10/03/2023. Next OV 02/22/24 Dr. Davila Please advise. Thank you. Christal Schmid LPN. [facility] 01-07-2024 Miscellaneous Notes Patient has been identified by name and date of : Yes, Patient phones for refill(s): Requested Prescriptions Pending Prescriptions Disp Refills nitroglycerin sublingual (NITROQUICK) 0.4 mg SL tablet Sig: Dissolve 1 tablet under the tongue as needed. FOR CHEST PAIN. IF NO RELIEF CALL 911 Patient seen in Neurology, Nitroglycerin . Last OV 10/03/2023. Next OV 02/22/24 Dr. Davila Please advise. Thank you. Christal Schmid LPN. documented in this encounter [facility] 01-07-2024 Telephone encounter Note Patient comment: Stopped using Dexcom cgm, so back to fingerstrips. Old script Requester: Patient Patients last Endocrinology visit occurred 10/23/23. Follow-up evaluation has been established Upcoming Endocrinology Appointments - Next 365 Days Visit Type Date Time Department VIDEO SPEC EST 02/14/2024 1:40 PM [facility] . Requested Prescriptions Pending Prescriptions Disp Refills blood sugar diagnostic (ACCU-CHEK ANNALISE PLUS TEST STRP) test strip 400 Strip 3 Sig: Use to check blood sugar 4 times daily If patient is due for an appointment please route to provider for refill consideration and also to the endo scheduling pool. PSS NOTE: Patient needs scheduled appointment No [facility] 01-07-2024 Miscellaneous Notes Patient comment: Stopped using Dexcom cgm, so back to fingerstrips. Old script Requester: Patient Patients last Endocrinology visit occurred 10/23/23. Follow-up evaluation has been established Upcoming Endocrinology Appointments - Next 365 Days Visit Type Date Time Department VIDEO SPEC EST 02/14/2024 1:40 PM [facility] . Requested Prescriptions Pending Prescriptions Disp Refills blood sugar diagnostic (ACCU-CHEK ANNALISE PLUS TEST STRP) test strip 400 Strip 3 Sig: Use to check blood sugar 4 times daily If patient is due for an appointment please route to provider for refill consideration and also to the endo scheduling pool. PSS NOTE: Patient needs scheduled appointment No documented in this encounter [facility] 01-07-2024 History of Present illness Narrative ESTABLISHED PATIENT VISIT CHIEF COMPLAINT: Follow Up HISTORY OF PRESENT ILLNESS: Bhakti Kirkpatrick is a 78 year old female, with a PMH significant for and per last office visit of 10/08/23: 1. Dementia without behavioral disturbance, psychotic disturbance, mood disturbance, or anxiety, unspecified dementia severity, unspecified dementia type (HCC) - ICD9: 294.20, ICD10: F03.90 (primary diagnosis) Subjective history suggests cognition worsening. Pt not wanting to perform MOCA - upsetting to patient. Given history do feel appropriate to add medications at this time, and thus, will start on Aricept 5mg daily in addition to Namenda 10mg BID. SE and ADRs d/w pt. Explained purpose of medication which is not to reverse dementia but slow its progression. They are understanding. Encouraged brain exercises. Pt does not drive. Did discuss means of safeguarding house. 2. ABDI on CPAP - ICD9: 327.23, ICD10: G47.33 Important to treat as could be contributing to cognitive impairment. Encouraged PAP compliance. Reminded to clean regularly once using. If any mask issues advised to contact us so that we can schedule a formal PAP mask fitting. Once using for 4 weeks will obtain PAP data download to see if changes necessary. Stopped Aricept as felt it resulted in bad mood. States hip is killing her but plans for a LOR in [address] Beltran. States arthritis in general is bothersome in all her joints. Patient provides detailed history regarding past medical conditions. Patient is not using PAP device - complaints unchanged from last visit, stating that it makes her gasp for air. Patient thinks memory is stable - I have my offs and ons like not being able to remember a name. Patient immediately changes subject to her having lower extremity neuropathy. Note, known DM. Patient then demonstrates what is of concern and pt with 1-2+ distal lower ext edema. Last ECHO was in 2016. Increased leg pain in the last month. has to lift leg up to get it into a car. No history of blood clots. Can have some numbness in legs but primary complaint is pain that is relieved with Tylenol PM. Since off Aricept, feels cognition is for the better. When on the Aricept, patient would be more responsive to alerts from her glucose monitor, but then would make bad decisions how to care for it such as drinking excessive amounts of water. States would also be more eager to pay bills when received them, but would not know how to pay them correctly. Also more mood swings. Hemoglobin A1C (%) Date Value 10/19/2023 6.2 05/31/2021 7.2 Hemoglobin A1C (POCT) (%) Date Value 01/31/2023 6.6 REVIEW OF SYSTEMS GENERAL:No weight loss, malaise or fevers. HEENT:Negative for frequent or significant headaches, No changes in hearing or vision, no nose bleeds or other nasal problems NECK:Negative for lumps, goiter, pain and significant neck swelling RESPIRATORY: Negative for cough, wheezing or shortness of breath. CARDIOVASCULAR: Negative for chest pain, leg swelling or palpitations. GASTROINTESTINAL: Negative for abdominal discomfort, blood in stools or black stools or change in bowel habits GENITOURINARY: No history of dysuria, frequency or incontinence MUSCULOSKELETAL: See HPI. NEUROLOGIC:See HPI. SKIN: See HPI. LAB/IMAGING: Those performed since patient's last visit have been reviewed. WBC (k/uL) Date Value 08/23/2023 9.79 RBC (m/uL) Date Value 08/23/2023 3.86 (L) Hemoglobin (g/dL) Date Value 08/23/2023 12.7 Hematocrit (%) Date Value 08/23/2023 38.2 MCV (fL) Date Value 08/23/2023 99.0 MCH (pg) Date Value 08/23/2023 32.9 MCHC (g/dL) Date Value 08/23/2023 33.2 RDW-CV (%) Date Value 08/23/2023 14.1 Platelet Count (k/uL) Date Value 08/23/2023 203 MPV (fL) Date Value 08/23/2023 10.9 Glucose (mg/dL) Date Value 08/23/2023 112 (H) BUN (mg/dL) Date Value 08/23/2023 15 Creatinine (mg/dL) Date Value 08/23/2023 1.04 (H) Sodium (mmol/L) Date Value 08/23/2023 141 Potassium (mmol/L) Date Value 08/23/2023 4.2 Chloride (mmol/L) Date Value 08/23/2023 102 CO2 (mmol/L) Date Value 08/23/2023 27 Protein, Total (g/dL) Date Value 08/29/2022 6.8 Albumin (g/dL) Date Value 08/29/2022 4.2 Calcium, Total (mg/dL) Date Value 08/23/2023 9.7 Alkaline Phosphatase (U/L) Date Value 08/29/2022 94 Bilirubin, Total (mg/dL) Date Value 08/29/2022 0.4 AST (U/L) Date Value 08/29/2022 19 ALT (U/L) Date Value 08/29/2022 16 MEKA (no units) Date Value 03/10/2016 Negative Rheumatoid Factor (IU/mL) Date Value 03/10/2016 <10 Hep C Antibody IA (no units) Date Value 12/10/2015 Negative MEDICATIONS: DULoxetine (CYMBALTA) 60 mg capsule Take 1 capsule by mouth once daily. insulin glargine U-300 conc (TOUJEO SOLOSTAR U-300 INSULIN) 300 unit/mL (1.5 mL) take 24 units twice a day, max daily dose 60 units memantine (NAMENDA) 10 mg tablet Take 1 tablet by mouth two times a day. metoprolol tartrate, short acting, (LOPRESSOR) 25 mg tablet Take 1 tablet by mouth two times a day. lidocaine (LIDODERM) 5 % Apply 1 Patch as directed every 12 hours. Remove old patch prior to placing new patch. Location: arms, left rib. 12 hours on, 12 hours off. colchicine 0.6 mg tablet Take 2 tabs by mouth, followed by 1 tab one hour later for gout flare. May repeat in 1 week. allopurinol (ZYLOPRIM) 300 mg tablet Take 1 tablet by mouth once daily. For gout. Insulin [place], Disposable, (BD ULTRAFINE III MINI PEN) 31 gauge x 3/16 1 Each as directed. 6 times daily. Dx:E11.40. On multiple insulin doses. levothyroxine (SYNTHROID) 175 mcg tablet 7 & 1/2 pills per week (one a day with extra half pill on Sunday) insulin lispro (HUMALOG) 200 unit/mL (3 mL) injection take up to 165 units daily glucagon 3 mg/actuation nasal spray (BAQSIMI) Use 1 [place] in the nose as needed for low blood sugar. May repeat after 15 minutes using a new device if there is no response. insulin aspart U-100 (NOVOLOG FLEXPEN U-100 INSULIN) 100 unit/mL (3 mL) 14 in AM, 14 at lunch, 14 at supper, 10 at bed, plus extra based on sugars, max daily dose 100 units plus sliding scale evolocumab (REPATHA SURECLICK) 140 mg/mL pen injector Inject 140 mg subcutaneously every 2 weeks. Per [facility]. diclofenac (VOLTAREN) 1 % topical gel Apply 4 g to affected area four times daily. blood sugar diagnostic (ACCU-CHEK ANNALISE PLUS TEST STRP) test strip Use to check blood sugar 4 times daily nitroglycerin sublingual (NITROQUICK) 0.4 mg SL tablet Dissolve 1 tablet under the tongue as needed. FOR CHEST PAIN. IF NO RELIEF CALL 911 Lancets (ACCU-CHEK SOFTCLIX LANCETS) lancets Checking blood sugars 4 times daily. Dx: E11.42 ferrous sulfate 325 mg (65 mg iron) tablet Take 325 mg by mouth twice daily with meals. calcium citrate (CITRACAL ORAL) Take 2 tablets by mouth twice daily. multivit-min/iron/folic acid/K (BARIATRIC MULTIVITAMINS ORAL) Take by mouth. fluticasone (FLONASE) 50 mcg/actuation nasal spray Use 2 Sprays in each nostril once daily. polyethylene glycol 3350(MIRALAX 100 % ORAL POWDER) 17 grams/8 0z water daily ASA LOW DOSE 81MG TAB EC Take one(1) tablet daily. donepezil (ARICEPT) 10 mg tablet Take 1 tablet by mouth daily at bedtime. gabapentin (NEURONTIN) 400 mg capsule Take 1 capsule by mouth daily at bedtime for 180 days. furosemide (LASIX) 40 mg tablet Take 1 tablet by mouth once daily. Per Dr. Lilian Vance, nephrology. (Patient not taking: Reported on 01/07/2024) Blood-Glucose Transmitter (DEXCOM G6 TRANSMITTER) claudia change every 3 weeks CPAP Auto bilevel with humidity set as follows: IPAP max 24, EPAP min 8 and PS 4-6 cmH2O. Comfort settings TiMax 2.0, TiMin 0.3, Trigger -M, Cycle-M. Continue using ResMed N20 nasal mask interface. docusate sodium (COLACE ORAL) Take by mouth. lactulose (DUPHALAC, CONSTULOSE) 10 gram/15 mL solution 30 mL q 24 HR. BIPAP COMPOUNDED PRESCRIPTION Initiate BiPAP @ 15/9 cm of water with humidification. Mask (per patient preference) optional chin strap (if indicated) , filters, tubing, humidifier and lifetime supplies. Dx. ABDI 327.23 HISTORIES PAST MEDICAL HISTORY Diagnosis Date (HFpEF) heart failure with preserved ejection fraction (HCC) 06/23/2015 Dr. 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) 02/06/2015 Coronary artery calcification seen on CAT scan 01/21/2013 Depressive disorder 03/31/2016 Diverticulosis 08/23/2010 Diverticulosis of colon (without mention of hemorrhage) Edema GERD without esophagitis 09/02/2019 Hearing loss HTN (hypertension) 08/12/2014 Hypertensive kidney disease with stage 3a chronic kidney disease (HCC) 08/12/2014 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) 06/30/2020 Ingrown toenail Morbid obesity (HCC) Obstructive sleep apnea CPAP Other and unspecified hyperlipidemia Other dyspnea and respiratory abnormality Palpitations Primary osteoarthritis of both hips 08/18/2020 Rosacea Symptomatic menopausal or female climacteric states 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 Type II or unspecified type diabetes mellitus without mention of complication, not stated as uncontrolled 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 07/10/2018 Unspecified intestinal obstruction 10/2018 FAMILY HISTORY Problem Relation Age of Onset COPD Mother at 64 yoa Ischemic Heart Disease Father Mi at 61 yoa GI Brother cirrhosis other (AAA rupture) Brother Lung cancer, 49 yoa Hypertension Sister 2 years younger Coronary Artery Disease Sister Stroke Sister Diabetes Sister Cancer Paternal Aunt Cervical cancer Diabetes Maternal Aunt Diabetes Paternal Aunt Diabetes Paternal Grandfather Heart Paternal Uncle other (parkinson) Son 41 SOCIAL HISTORY Social History Tobacco Use Smoking status: Former Packs/day: 2.00 Years: 15.00 Additional pack years: 0.00 Total pack years: 30.00 Types: Cigarettes Quit date: 09/10/1991 Years since quittin.3 Smokeless tobacco: Never Vaping Use Vaping Use: Never used Substance Use Topics Alcohol use: No Drug use: No PHYSICAL EXAMINATION BP 116/66 Pulse 69 Resp 16 LMP 06/27/2011 SpO2 95% GENERAL EXAM: General appearance: NAD, pleasant. HEENT: NC/AT, nasal congestion absent, no oral lesions, membranes moist. Lungs: CTA bilaterally with exception of rare scattered wheeze. CV: RRR nl S1, S2 Extr: 2+ pedal edema - pitting. NEUROLOGICAL EXAM: General: Awake, alert, oriented x3 (person,place,time), speech fluent, no dysarthria; comprehension, naming, repetition intact. CN: PERRL, EOMI and without nystagmus, VFF to confrontation, facial sensation and strength are normal and symmetric, hearing is intact to finger rub bilaterally, palate and tongue movements are intact and symmetric. SCM and trapezius strength normal. Motor: Normal tone, bulk and strength (5/5) bilaterally (throughout extremities x4). Coordination: FNF, COREY, HTS intact. No tremors. Sensation: Light touch and vibration diminished but not absent in feet sydni up to level of ankle.. No evidence of neglect. Gait: Wide based with walker. Assessment and Plan: ASSESSMENT/PLAN: 1. Dyspnea on exertion - ICD9: 786.09, ICD10: R06.09 (primary diagnosis) 2. Bilateral lower extremity edema - ICD9: 782.3, ICD10: R60.0 Patient with lower extremity edema with calf tenderness and LAZAR. Told by podiatry and derm that symptoms are due to neuropathy. However, symptoms more concerning for either CV or PV disorder including possible CHF or DVT. To further evaluate will get ECHO as well as lower ext dopplers. Patient will follow up after studies complete. Patient also needs follow up with PCP and will inform Dr. Davila. 3. Diabetic polyneuropathy associated with type 2 diabetes mellitus (HCC) - ICD9: 250.60, 357.2, ICD10: E11.42 Present, but do not believe the cause of leg swelling. In addition, while occasional numbness in feet, patient with primary complaint of joint pain. Pain also relieved with arthritic meds while per pt Cymbalta having no effect. 4. Dementia without behavioral disturbance, psychotic disturbance, mood disturbance, or anxiety, unspecified dementia severity, unspecified dementia type (HCC) - ICD9: 294.20, ICD10: F03.90 MOCA not performed. No clinical decline and feels stable. Already on max dose of Namenda and could not tolerate Aricept. No changes in meds today. No new recommendations. 5. ABDI (obstructive sleep apnea) - ICD9: 327.23, ICD10: G47.33 As in past, patient declining use. Reviewed possible med conditions that could be associated with untreated ABDI including those that could also result in leg swelling as well as concern that untreated ABDI may exacerbate ABDI. Pt still declines use. Akilah Pena MD I spent a total of 30+ minutes on the date of the service which included preparing to see the patient, [id number] patient care, completing clinical documentation, obtaining and/or reviewing separately obtained history, performing a medically appropriate examination, counseling and educating the patient/family/caregiver, ordering medications, tests, or procedures, and communicating results to the patient/family/caregiver. documented in this encounter [facility] 01-07-2024 History of Present illness Narrative Radiology Service Progress Note PATIENT NAME: Bhakti Kirkpatrick DATE OF SERVICE: January 07, 2024 TIME: 1:59 PM PATIENT IDENTITY VERIFICATION COMPLETED USING TWO (2) IDENTIFIERS: Name and Date of confirmed by patient verbally. FALL SCREENING: Has the patient had 2 falls in the last year or 1 fall with injury or currently using an Ambulatory Assistive Device (Walker, Cane, Wheelchair, Crutches, etc.)? Yes, Patient High Risk for Falls What interventions were put in place to prevent falls during this visit? Increased Observations by Caregivers PATIENT GENDER DATA: Female. status: : No status: NO. PATIENT RELEVANT IMPLANT DATA REVIEWED: Not Applicable PATIENT PRESENTS WITH AN IMPLANTABLE OR ATTACHED HRIS DEVELOPER: No RADIOLOGY DEPARTMENT: Mammography PERIPHERAL IV DATA: Not applicable SIGNED BY: Edna Thomas January 07, 2024 1:59 PM documented in this encounter [facility] 12-12-2023 History of Present illness Narrative ORTHO CARE COORDINATION QUICK NOTE Patient has been identified by name and date of : yes The purpose of this encounter is to schedule LTHA at [facility] on January 21, 2024 Melyssa Glass RN documented in this encounter [facility] 12-12-2023 History of Present illness Narrative CDM Telephonic Outreach Provider Action/FYI Contacted for: Routine Telephonic Outreach Contact made with patient: Yes Patient identified by name and date of . Discussed care with spouse Are you experiencing any new or worsening symptoms you need to talk about today? No Disease Specific Do you check your blood pressure at home? Yes, Enter readings: not reported Do you have new or worsening shortness of breath with activity? No Do you have new or worsening trouble breathing while lying flat? No Do you have new or worsening swelling of legs, feet or ankles? No Do you feel like you are dehydrated for any reason, including not being able to eat or drink normally, or having less urine/much darker urine than normal for you? No Do you check your daily weight at home? Yes, Have you noticed a sudden gain in weight greater than three pounds in a day or three pounds in a week? No Based on manager of selection and assessment, the following disposition is advised: No symptoms or symptoms present, not severe. Routed to: No Action Needed IVAN Education Provided this Outreach: No Catherine Pompa RN December 12, 2023 9:38 AM Care Coordination next call- CHF,CKD,DM Dementia Last CDM outreach contact: 11/14/23- No CDM concerns. Appt with Ortho 12/12/23-to review for hip surgery.........hip surg schedulue 01/21/24 Baseline: 11/14/23 ADL, FALL, GOAL due: 08/22/24 . Chronic disease goal - 02/02/23 -chf/ckd 08/22/23-reviewed zones/management Goal assessment: 11/14/23 SDOH transportation and food insecurity completed: 02/02/23 Recent admit, ED, observation: documented in this encounter [facility] 12-12-2023 History of Present illness Narrative OA Left hip Bhakti Kirkpatrick is a 78 year old female that returns today to follow up/discuss results of their left hip pain. Pt. feels their overall condition is worse. Does the Pt. still experience pain? Yes PAIN SCALE: Today is 10/10 Current treatment plan includes: Physical Therapy: No Home Exercise Program: No NSAIDS: Ibuprofen Taking PRN. Pain Medication: None . 20 minutes spent discussing the R/B/A documented in this encounter [facility] 12-12-2023 History of Present illness Narrative Radiology Service Progress Note PATIENT NAME: Bhakti Kirkpatrick DATE OF SERVICE: December 12, 2023 TIME: 8:46 AM PATIENT IDENTITY VERIFICATION COMPLETED USING TWO (2) IDENTIFIERS: Name and Date of confirmed by patient verbally and Name and Date of confirmed by identification band. FALL SCREENING: Has the patient had 2 falls in the last year or 1 fall with injury or currently using an Ambulatory Assistive Device (Walker, Cane, Wheelchair, Crutches, etc.)? No PATIENT GENDER DATA: Female. status: : No status: NO. PATIENT RELEVANT IMPLANT DATA REVIEWED: Not Applicable PATIENT PRESENTS WITH AN IMPLANTABLE OR ATTACHED HRIS DEVELOPER: No RADIOLOGY DEPARTMENT: General X-ray: Exam(s) Completed: Pelvis X-Ray: Pelvis with Hip Left PERIPHERAL IV DATA: Not applicable SIGNED BY: RT George(R) December 12, 2023 8:46 AM documented in this encounter [facility] 12-03-2023 Miscellaneous Notes Patient has been identified by name and date of : Yes Patient phones for refill(s): Requested Prescriptions Pending Prescriptions Disp Refills DULoxetine (CYMBALTA) 60 mg capsule 90 capsule 1 Sig: Take 1 capsule by mouth once daily. Date of last office visit in primary care: 10/03/2023 Date of next office visit in primary care: 02/22/2024 Please advise. Thank you. Christin Thao LPN. documented in this encounter [facility] 11-21-2023 Miscellaneous Notes Patient needs new RX sent to [facility] to replace Levemir. See [employer] message for formulary alternatives. Pascale Mendez RN Images from the original note were not included. ([place]: [id number]) documented in this encounter [facility] 11-14-2023 History of Present illness Narrative [facility] Telephonic Outreach Provider Action/FYTony Contacted for: Routine Telephonic Outreach Contact made with patient: Yes Patient identified by name and date of . Discussed care with patient Are you experiencing any new or worsening symptoms you need to talk about today? No Disease Specific Do you check your blood pressure at home? Yes, Enter readings: Always < 130/80 Do you have new or worsening shortness of breath with activity? No SOB with extreme exertion. She can climb a flight of stairs without SOB Do you have new or worsening trouble breathing while lying flat? No Sleeps on no pillows; has a electric recliner Do you have new or worsening swelling of legs, feet or ankles? No Baseline: no swelling Do you feel like you are dehydrated for any reason, including not being able to eat or drink normally, or having less urine/much darker urine than normal for you? No Hydrates with 64 oz per day Urine wnl ;clear and yellow Do you check your daily weight at home? Yes, 197 lbs Have you noticed a sudden gain in weight greater than three pounds in a day or three pounds in a week? No Based on manager of selection and assessment, the following disposition is advised: No symptoms or symptoms present, not severe. Routed to: No Action Needed IVAN Education Provided this Outreach: No Catherine Pompa RN November 14, 2023 4:03 PM Care Coordination next call- CHF,CKD,DM Dementia Last CDM outreach contact: 11/14/23- No concerns. A1C 6.2 ; Appt with Ortho 12/12/23-to review for hip surgery wt 197 lbs Baseline: 11/14/23 ADL, FALL, GOAL due: 08/22/24 . Chronic disease goal - 02/02/23 -chf/ckd 08/22/23-reviewed zones/management Goal assessment: 11/14/23 SDOH transportation and food insecurity completed: 02/02/23 Recent admit, ED, observation: documented in this encounter [facility] 10-24-2023 Miscellaneous Notes Images from the original note were not included. Max Best MD [facility] Clerical Pool Please call patient and help them make virtual appointment with 3 months from now, after I return from vacation First attempt. Left message to call office. 10/24/2023 8:04 AM documented in this encounter [facility] 10-23-2023 Instructions Max Best MD - 10/23/2023 1:37 PM EST Assessment / Plan Problem: 1) Diabetes type 2, sugar control continues to be quite good, best I have seen with her. No change in Rx needed. 2) Hip replacement postponed because of poor sugar control, looks good now, she is approved for surgery now from diabetes perspective. 3) Surgical hypothyroidism, TSH a little suppressed, likely because of weight loss, I will drop her dose of levothyroxine from 7.5/wk to daily of 175 mcg dose. 4) Thyroid CA dx 2009, TG undetectable, doing well. Unchanged 1) Mixed hyperlipidemia, should get better with better sugar control 2) s/p Sleeve gastrectomy 3) CKD stage 3-4, following with Dr. María Vance 4) ABDI, has new BiPAP, using every night, and also with naps as much as possible (sometimes will fall asleep unexpectedly just sitting in a chair). 5) s/p Hip surgery, is walking around now, getting PT, notes it causes significant pain, but keeps at it. 6) s/p COVID vaccine x 4, discussed Paxlovid. Treatment / Plan: 1) try taking meal Humalog doses 15min before you start eating. 2) return to me by virtual visit in 3 months. 3) get HbA1c done now, and again along with thyroid tests prior to the 3 month visit Max Best MD documented in this encounter [facility] 10-23-2023 History of Present illness Narrative Images from the original note were not included. Virtual Visit utilizing both audio and video components MyChart-Zoom I have communicated my name and active licensure. The patient's identity and physical location were verified at the time of this visit. Either the patient or their legal patient portal representative has been informed of the risks and benefits of -- and alternatives to -- treatment through a remote evaluation and consents to proceed with the evaluation remotely. Patient location: at home, [facility] Assessment / Plan Problem: 1) Diabetes type 2, sugar control continues to be quite good, best I have seen with her. No change in Rx needed. 2) Hip replacement postponed because of poor sugar control, looks good now, she is approved for surgery now from diabetes perspective. 3) Surgical hypothyroidism, TSH a little suppressed, likely because of weight loss, I will drop her dose of levothyroxine from 7.5/wk to daily of 175 mcg dose. 4) Thyroid CA dx 2009, TG undetectable, doing well. Unchanged 1) Mixed hyperlipidemia, should get better with better sugar control 2) s/p Sleeve gastrectomy 3) CKD stage 3-4, following with Dr. María Vance 4) ABDI, has new BiPAP, using every night, and also with naps as much as possible (sometimes will fall asleep unexpectedly just sitting in a chair). 5) s/p Hip surgery, is walking around now, getting PT, notes it causes significant pain, but keeps at it. 6) s/p COVID vaccine x 4, discussed Paxlovid. Treatment / Plan: 1) try taking meal Humalog doses 15min before you start eating. 2) return to me by virtual visit in 3 months. 3) get HbA1c done now, and again along with thyroid tests prior to the 3 month visit Max Best MD Data Review: iPhone=[employer] [phone] Dexcom share code XZPM NXLR DNKG Component Latest Ref Rng & Units 08/29/2022 02/21/2023 07/30/2023 10/19/2023 Protein, Total 6.3 - 8.0 g/dL 6.8 Albumin 3.9 - 4.9 g/dL 4.2 Calcium 8.5 - 10.2 mg/dL 9.8 Bilirubin, Total 0.2 - 1.3 mg/dL 0.4 Alkaline Phosphatase 34 - 123 U/L 94 AST 13 - 35 U/L 19 ALT 7 - 38 U/L 16 Glucose 74 - 99 mg/dL 244 (H) BUN 7 - 21 mg/dL 28 (H) Creatinine 0.58 - 0.96 mg/dL 1.14 (H) Sodium 136 - 144 mmol/L 140 Potassium 3.7 - 5.1 mmol/L 4.2 Chloride 97 - 105 mmol/L 100 CO2 22 - 30 mmol/L 28 Anion Gap 9 - 18 mmol/L 12 eGFR >=60 mL/min/1.73m 50 (L) Cholesterol, Total <200 mg/dL 137 Triglyceride <150 mg/dL 319 (H) HDL Cholesterol >39 mg/dL 39 (L) Non HDL Cholesterol <130 mg/dL 98 LDL Cholesterol <100 mg/dL 34 Albumin/Creat Ratio <30 mg/g 49 (H) Hemoglobin A1C 4.3 - 5.6 % 6.1 (H) 6.2 (H) Component Latest Ref Rng & Units 01/05/2023 10/19/2023 Thyroglobulin Ab, Serum <4.0 IU/mL <0.9 Thyroglobulin, Serum 1.6 - 50.0 ng/mL <0.1 (L) Free T4 0.9 - 1.7 ng/dL 1.4 1.8 (H) TSH 0.270 - 4.200 mIU/L 0.976 0.206 (L) History Diabetes type 2, insulin doses currently: Levemir 25-25, Humalog 17-17-17 sugar data reviewed from her Dexcom unit no issues of low or high sugars. Hypothyroidism continues to take 175 mcg x 7.5/wk. s/p COVID vaccine x 4 Diabetes History Type (2003): dx diabetes type 2 Control hx Component Hemoglobin A1C Latest Ref Rng & Units 4.3 - 5.6 % 08/29/2019 6.8 02/20/2020 7.5 (H) 06/10/2020 8.2 (H) 12/17/2020 6.0 05/31/2021 7.2 (H) 11/28/2021 6.2 (H) 01/31/23 6.6 Testing freq (11/11/15): 4x/d Eye hx (07/2015): no DM changes per pt (10/2022): no DM changes per pt Renal hx Component Albumin/Creat Ratio Latest Ref Rng 0 - 30 mg/g 02/16/2010 10 07/05/2010 9 05/08/2011 13 08/08/2013 9 02/02/2015 17 Component BUN Creatinine Latest Ref Rng & Units 7 - 21 mg/dL 0.58 - 0.96 mg/dL 09/13/2015 18 0.91 03/09/2016 16 1.01 06/07/2016 14 0.88 09/08/2017 30 (H) 1.40 (H) 03/27/2018 38 2.01 04/01/2018 27 1.68 12/02/2018 26 1.02 (04/02/18): 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 follows her Liver hx Component Bilirubin, Total Alkaline Phosphatase AST ALT Latest Ref Rng 0.0 - 1.5 mg/dL 40 - 150 U/L 7 - 40 U/L 0 - 45 U/L 07/02/2014 0.2 93 84 (H) 68 (H) 09/21/2014 0.3 74 26 24 06/23/2015 0.3 97 56 (H) 68 (H) 06/24/2015 0.3 89 57 (H) 72 (H) BP hx Vitals 06/24/2015 06/30/2015 09/04/2015 09/13/2015 11/11/2015 SITTING BP 121/64 104/67 120/70 130/80 100/62 (11/11/15): lisinopril 2.5 mg/d, metoprolol 25 mg 2x/d, Neuro hx (11/11/15): numb tingling dysesthesias in feet and legs, gets shaky sweaty with hypoglycemia Vascular hx (11/11/15): no hx [place], stroke Component Latest Ref Rng 02/20/2014 07/02/2014 09/24/2014 Triglyceride 30 - 149 mg/dL 133 134 158 (H) Cholesterol 100 - 199 mg/dL 170 189 186 HDL Cholesterol >55 mg/dL 53 (L) 62 45 (L) LDL Cholesterol 60 - 129 mg/dL 90 100 109 Non HDL Cholesterol 90 - 159 mg/dL 117 127 141 (11/11/15): niacin CR 500 mg 2x/d (06/02/19): no Rx lipids Sleep hx (11/11/15): has ABDI, on BiPAP, never sleeps without it (05/26/16): using BiPAP ever night Exercise hx (11/11/15): no exercise Medications (11/11/15): Victoza 1.8 mg daily, glimepiride 2 mg: AM=1, PM=1/2, metformin 500 mg ii-i-ii, sliding scale Humalog, using 1-3 units at a time. (05/26/16): Lantus 10 units, Victoza 1.8 mg/d, glimepiride 2 mg: AM=1, PM=1/2, metformin 500 mg ii-i-ii (11/28/16): Lantus 10 units, Victoza 1.8 mg/d, glimepiride 2 mg: AM=1, PM=1/2, metformin 500 mg ii-i-ii (04/16/17): Lantus 15 units at bed, Victoza 1.8 mg/d, glimepiride 2mg 2x/d, metformin 500 mg ii-i-ii (05/30/17): Lantus 28 units at bed, and meal Humalog 9-9-9-9 (i.e. taking another 9 units at bedtime snack), Victoza 1.8 mg/d, glimepiride 2mg 2x/d, metformin 500 mg ii-i-ii (06/05/17): Levemir 17 units twice a day, and meal Humalog 12-11-10, plus sliding scale (09/11/17): Levemir 17 AM and HS, meal Humalog 12-11-10-9 (last is for snack), plus sliding scale1 per 20, goal 120 (12/18/17): Levemir 12 units AM & HS, Humalog 8-8-7-6 plus sliding scale, metformin 500mg 2-1-1 (04/02/18): Levemir 12 units AM and HS, and Humalog 8-8-7-6 plus sliding scale, has stopped metformin (05/27/18): Levemir 22 units AM and HS, and Humalog 15-12-14-11 (08/27/18): Levemir 34 units 2x/d, Humalog 18-15-18-15 (12/04/18): Levemir 34 units 2x/d, Humalog 18-15-18-11 (03/06/19): Levemir 17 units in AM, 19 units in PM. 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 Jamey Ibrahim, [facility] Pathology (10/29/09): FNA Atypical cells present in a background of cyst contents, suspicious for papillary thyroid carcinoma (12/15/09): single well-circumscribed nodule in the right inferior lobe, which measured 3.5 cm in greatest dimension. The nodule was extensively hemorrhagic and cystic with a rim of viable material which ranges in appearance from papillary architecture to follicular structures. There is no evidence of a higher grade component. There is no definitive lymphovascular space invasion identified. In some areas, the tumor cells have oncocytic cytoplasm, however, the cells do not meet criteria for tall-cell variant of papillary thyroid carcinoma. Scan (02/24/10): post-Rx 131-Iodine scan, SIDDIQI (02/16/10): Rx 102.4 mCi 131-Iodine Thyroglobulin Component Thyroglobulin TG Antibody Screen Latest Ref Rng & Units 0.8 - 49.0 ng/mL <14.4 IU/mL 11/05/2009 75.7 (H) 1.0 01/18/2010 <0.2 (L) 1.1 02/16/2010 0.3 (L) 1.0 07/05/2010 <0.2 (L) 1.3 12/27/2010 <0.2 (L) 1.3 05/08/2011 <0.2 (L) 1.1 07/24/2011 <0.2 (L) 1.5 01/23/2012 <0.2 (L) 1.0 07/27/2012 <0.2 (L) <1.0 02/18/2013 <0.2 (L) <1.0 08/12/2013 <0.2 (L) <1.0 02/16/2014 <0.2 (L) <1.0 09/24/2014 <0.2 (L) <1.0 03/08/2015 <0.2 (L) 1.3 12/10/2015 <0.2 (L) <1.0 05/25/2016 <0.2 (L) <1.0 11/15/2016 <0.2 (L) 1.3 Vitamin D Component Vitamin D 25 Hydroxy Latest Ref Rng 31.0 - 80.0 ng/mL 01/18/2010 39.7 01/17/2011 48.1 07/24/2011 50.6 01/23/2012 40.2 02/18/2013 43.0 08/12/2013 40.0 02/16/2014 39.5 09/24/2014 36.0 Ultrasound (01/18/10): no suspicious adenopathy along great vessels or in lateral neck on either side. No masses in thyroid bed. (11/11/15): no suspicious adenopathy along great vessels or in lateral neck on either side. No masses in thyroid bed. (11/28/16): no suspicious adenopathy along great vessels or in lateral neck on either side. No masses in thyroid bed. ROS PHYSICAL EXAM PAST MED / SURG / FAMILY / SOCIAL HISTORY PAST MEDICAL HISTORY Diagnosis Date (HFpEF) heart failure with preserved ejection fraction (HCC) 06/23/2015 Dr. 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) 02/06/2015 Coronary artery calcification seen on CAT scan 01/21/2013 Depressive disorder 03/31/2016 Diverticulosis 08/23/2010 Diverticulosis of colon (without mention of hemorrhage) Edema GERD without esophagitis 09/02/2019 Hearing loss HTN (hypertension) 08/12/2014 Hypertensive kidney disease with stage 3a chronic kidney disease (HCC) 08/12/2014 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) 06/30/2020 Ingrown toenail Morbid obesity (HCC) Obstructive sleep apnea CPAP Other and unspecified hyperlipidemia Other dyspnea and respiratory abnormality Palpitations Primary osteoarthritis of both hips 08/18/2020 Rosacea Symptomatic menopausal or female climacteric states 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 Type II or unspecified type diabetes mellitus without mention of complication, not stated as uncontrolled 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 07/10/2018 Unspecified intestinal obstruction 10/2018 PAST SURGICAL HISTORY Procedure Laterality Date APPENDECTOMY 05/20/2001 open ARTHRP KNE CONDYLE&PLATU MEDIAL&LAT COMPARTMENTS Left 08/18/2014 Knee replacement, total left ARTHRP KNE CONDYLE&PLATU MEDIAL&LAT COMPARTMENTS Right 06/12/2012 total right knee arthroplasty ; THYROIDECTOMY TOTAL OR COMPLETE Bilateral 12/15/2009 Papillary Ca CHOLECYSTECTOMY 05/20/2001 Cholecystectomy-lap COLONOSCOPY FLX DX W/COLLJ SPEC WHEN PFRMD 06/06/2004 COLONOSCOPY FLX DX W/COLLJ SPEC WHEN PFRMD 08/23/2010 EXCISION EXCESSIVE SKIN & SUBQ TISSUE OTHER AREA 01/17/2002 Abdominoplasty EXPLORATORY LAPAROTOMY, CELIOTOMY-SP 06/24/2020 Takedown of enteroprosthetic fistula.Small bowel resection anastosmosis. Removal infected mesh. Recurrent vental hernia repair. HIP ARTHROSCOPY W/SYNOVECTOMY Right 09/19/2021 exc.seroma; gluteus repair; rotium augmentation; trochanteric bursectomy, iliotibial band resection LAPAROCOPIC SLEEVE GASTRECTOMY 03/10/2019 Extensive laparoscopic lysis of adhesions. EGD. Lap. TAP block. LEFT HEART CATH,PERCUTANEOUS 09/13/2017 no significant CAD NEPHRECTOMY PARTIAL Right 03/1991 Right side for benign tumor, small lesion removed REPAIR FIRST ABDOMINAL WALL HERNIA 09/25/2005 7 times total RPR 1ST INCAL/VNT HERNIA INCARCERATED 06/11/2007 with mesh TOTAL ABDOMINAL HYSTERECT W/WO RMVL TUBE OVARY 05/20/2001 PER, for fibroids and BSO TOTAL HIP REPLACEMENT Right 10/20/2020 anterior minimally invasive right total hip FAMILY HISTORY Problem Relation Age of Onset COPD Mother at 64 yoa Ischemic Heart Disease Father Mi at 61 yoa GI Brother cirrhosis other (AAA rupture) Brother Lung cancer, 49 yoa Hypertension Sister 2 years younger Coronary Artery Disease Sister Stroke Sister Diabetes Sister Cancer Paternal Aunt Cervical cancer Diabetes Maternal Aunt Diabetes Paternal Aunt Diabetes Paternal Grandfather Heart Paternal Uncle other (parkinson) Son 41 Social History Tobacco Use Smoking status: Former Packs/day: 2.00 Years: 15.00 Additional pack years: 0.00 Total pack years: 30.00 Types: Cigarettes Quit date: 09/10/1991 Years since quittin.1 Smokeless tobacco: Never Vaping Use Vaping Use: Never used Substance Use Topics Alcohol use: No Drug use: No MEDICATIONS & ALLERGIES Prior to Admission Medications: Current Outpatient Prescriptions on File Prior to Visit: HYDROcodone-Acetaminophen (NORCO) 10-325 mg per tablet Take 1 tablet by mouth every 6 hours as needed for Pain. fluticasone (FLONASE) 50 mcg/actuation nasal spray Use 2 Sprays in each nostril once daily. codeine-guaiFENesin (ROBITUSSIN AC) 10-100 mg/5 mL syrup Take 5-10 mL by mouth four times daily as needed for Cough. May cause drowsiness. furosemide (LASIX) 20 mg tablet Take 1 tablet by mouth twice daily. LORazepam (ATIVAN) 0.5 mg tab Take 1 tablet by mouth twice daily as needed. gabapentin (NEURONTIN) 300 mg capsule 2 AT HS AND ONE IN AM potassium chloride (K-TAB) 10 mEq tablet Take 1 tablet by mouth once daily. nitroglycerin sublingual (NITROQUICK) 0.4 mg SL tablet Dissolve 1 tablet under the tongue as needed. FOR CHEST PAIN. IF NO RELIEF CALL 911 Insulin Lispro, Human, (HUMALOG KWIKPEN) 100 unit/mL inpn 1-9 units before mealtime and at bedtime, according to sliding scale Insulin Wales, Disposable, (TIFFANIE PEN NEEDLE) 32 x 5/32 ndle use 4 times a day with Humalog pen blood sugar diagnostic (ACCU-CHEK SMARTVIEW TEST STRIP) test strip Use as instructed to test blood glucose 4 times daily (sugars currently uncontrolled, CKD stage 3) glimepiride (AMARYL) 2 mg tablet 1 pill in morning, and 1/2 pill at supper Lancets lancets Testing twice a day. DX:250.00 SYNTHROID 175 mcg tablet Take 1 tablet by mouth once daily. Take 8 tablets per week metFORMIN (GLUCOPHAGE) 500 mg tablet Take by mouth. take 2 in the morning, 1 at supper, 1 at bedtime lisinopril 2.5 mg tablet Take 1 tablet by mouth once daily. liraglutide (VICTOZA 3-DEVIN) 0.6 mg/0.1 mL (18 mg/3 mL) pnij Inject 1.8 mg subcutaneously once daily. metoprolol tartrate, short acting, (LOPRESSOR) 25 mg tablet Take 1 tablet by mouth twice daily. blood sugar diagnostic (CONTOUR TEST STRIPS) test strip Test blood sugar(s) 4 times daily. Dx: 250.0. Insulin: No niacin 500 mg CR capsule Take 1 capsule by mouth twice daily. [id number]-fish oil-D3 360 mg-1,200 mg -1,000 unit cap Take by mouth three times daily. Insulin Wales, Disposable, (PEN NEEDLE) 29 x 1/2 ndle Use 1 time daily with injectable pen glimepiride (AMARYL) 1 mg tablet Take 1 tablet by mouth once daily. As directed (Patient taking differently: Take 2 mg by mouth once daily. As directed) COMPOUNDED PRESCRIPTION Initiate BiPAP @ 15/9 cm of water with humidification. Mask (per patient preference) optional chin strap (if indicated) , filters, tubing, humidifier and lifetime supplies. Dx. ABDI 327.23 diphenhydrAMINE (BENADRYL ALLERGY) 25 mg tablet Take 1 tablet by mouth every 6 hours as needed for Itching/Rash. COMPOUNDED PRESCRIPTION Pen Needle BD Ultra Fine 29 g 12.7 mm Twice a day as directed 250.00 insulin needles, DISPOSABLE, (PEN NEEDLE) 31 X 5/16 Ndle use as directed twice daily Omeprazole Magnesium (PRILOSEC) 10 mg SuDR Take by mouth as needed. Cholecalciferol, Vitamin D3, 1,000 unit ORAL Tab Take by mouth once daily. metroNIDAZOLE (METROGEL) 1 % TOPICAL gel Apply to affected area once daily. blood sugar diagnostic (ASCENSIA MICROFILL) Misc test strip Check before and after each meal and at hs polyethylene glycol 3350(MIRALAX 100 % ORAL POWDER) 17 grams/8 0z water daily ASA LOW DOSE 81MG TAB EC Take one(1) tablet daily. No current facility-administered medications on file prior to visit. ALLERGIES Allergen Reactions Adhesive Tape (Jamila* Other: See Comments Contact celluitis Crestor [Rosuvastat* Intolerance Lantus [Insulin Gla* Intolerance burning at local injection site Nickel Rash in jewelry; also Palladium which cross reacts with nickel in some cases. Palladium Rash Pravastatin Intolerance Muscle cramps Toradol [Ketorolac] Hives documented in this encounter [facility] 10-17-2023 History of Present illness Narrative CD Telephonic Outreach Provider Action/FYI Contacted for: Routine Telephonic Outreach Contact made with patient: No, left message. Catherine Pompa RN October 17, 2023 3:46 PM Care Coordination next call- CHF,CKD,DM Dementia lvm x 2 Last CDM outreach contact: 09/19- No concerns. pt thinks she has UTI; routed to virtualist- prescribed Keflex Baseline: 05/02/23 ADL, FALL, GOAL due: 08/22/24 . Chronic disease goal - 02/02/23 -chf/ckd 08/22/23-reviewed zones/management SDOH transportation and food insecurity completed: 02/02/23 Recent admit, ED, observation: [facility] Telephonic Outreach Provider Action/FYI Contacted for: Routine Telephonic Outreach Contact made with patient: No, left message. Catherine Pompa RN October 17, 2023 12:49 PM documented in this encounter [facility] 08-23-2023 History of Present illness Narrative This note was created using Book[employer]Nest[employer]. Subjective Bhakti Kirkpatrick is a 78 year old female here with Rivera. Her hip surgery was cancelled due to unstable diabetes mellitus and recent dental work. No orthopedic follow up is currently scheduled. Due to concerns for hypoglycemia, Dr. Best adjusted her insulin. Rivera had question about when insulin should be held. We discussed this in general, but I recommended final recommendations be done by Dr. Best. From my standpoint, with the use of CGM, I would not recommend holding any insulin dose based on a specific number. Edema was controlled, and under guidance from her tar man, Dr. Lilian Vance, she managed to reduce furosemide to 40 mg once daily. Gout was acting up, in her fingers at this time. Colchicine helped, and she was taking all medications. Review of Systems Constitutional: Negative for chills, diaphoresis, fever and unexpected weight change. HENT: Negative for congestion and sore throat. Eyes: Negative for visual disturbance. Respiratory: Negative for cough, shortness of breath and wheezing. Cardiovascular: Positive for leg swelling. Negative for chest pain and palpitations. Musculoskeletal: Positive for arthralgias and gait problem. ACTIVE PROBLEM LIST Edema Abdi Treated With Bipap Arteriosclerotic Heart Disease (Ashd) Hypertensive Heart Disease With Heart Failure and Stage 4 Chronic Kidney Disease (Hcc) Degenerative Arthritis of Knee Myalgia Hyperlipidemia (Hfpef) Heart Failure With Preserved Ejection Fraction (Hcc) Fatty Liver History of Thyroid Cancer Type 2 Diabetes Mellitus With Stage 4 Chronic Kidney Disease, With Long-Term Current Use of Insulin (Hcc) Depression, Recurrent (Hcc) Chronic Kidney Disease, Stage IV (Severe) ([facility]) S/P Laparoscopic Sleeve Gastrectomy Gerd Without Esophagitis Sensory Hearing Loss, Bilateral Class 3 Severe Obesity With Body Mass Index (Bmi) of 45.0 to 49.9 in Adult (Hcc) Type 2 Diabetes Mellitus With Diabetic Neuropathy, With Long-Term Current Use of Insulin ([facility]) Primary Osteoarthritis of Both Hips Vertigo Cognitive Impairment Circadian Rhythm Sleep Disorder, Irregular Sleep Wake Type Anemia Acute Gout Involving Toe of Right Foot Chronic Bronchitis (Hcc) Current Outpatient Medications Medication Sig colchicine 0.6 mg tablet Take 2 tabs by mouth, followed by 1 tab one hour later for gout flare. May repeat in 1 week. allopurinol (ZYLOPRIM) 300 mg tablet Take 1 tablet by mouth once daily. For gout. DULoxetine (CYMBALTA) 60 mg capsule Take 1 capsule by mouth once daily. lidocaine (LIDODERM) 5 % Apply 1 Patch as directed every 12 hours. Remove old patch prior to placing new patch. Location: arms, left rib. 12 hours on, 12 hours off. Insulin Wales, Disposable, (BD ULTRAFINE III MINI PEN) 31 gauge x 3/16 1 Each as directed. 6 times daily. Dx:E11.40. On multiple insulin doses. levothyroxine (SYNTHROID) 175 mcg tablet 7 & 1/2 pills per week (one a day with extra half pill on Sunday) insulin lispro (HUMALOG) 200 unit/mL (3 mL) injection take up to 165 units daily glucagon 3 mg/actuation nasal spray (BAQSIMI) Use 1 [place] in the nose as needed for low blood sugar. May repeat after 15 minutes using a new device if there is no response. insulin aspart U-100 (NOVOLOG FLEXPEN U-100 INSULIN) 100 unit/mL (3 mL) 14 in AM, 14 at lunch, 14 at supper, 10 at bed, plus extra based on sugars, max daily dose 100 units plus sliding scale memantine (NAMENDA) 10 mg tablet Take 1 tablet by mouth twice daily. insulin detemir U-100 (LEVEMIR FLEXTOUCH U-100 INSULIN) 100 unit/mL (3 mL) injection pen 40 units twice a day, adjust dose based on sugars, max daily dose 100 units evolocumab (REPATHA SURECLICK) 140 mg/mL pen injector Inject 140 mg subcutaneously every 2 weeks. Per [facility]. diclofenac (VOLTAREN) 1 % topical gel Apply 4 g to affected area four times daily. metoprolol tartrate, short acting, (LOPRESSOR) 25 mg tablet Take 1 tablet by mouth twice daily. Blood-Glucose Transmitter (Histros G6 TRANSMITTER) claudia change every 3 weeks blood sugar diagnostic (ACCU-CHEK ANNALISE PLUS TEST STRP) test strip Use to check blood sugar 4 times daily nitroglycerin sublingual (NITROQUICK) 0.4 mg SL tablet Dissolve 1 tablet under the tongue as needed. FOR CHEST PAIN. IF NO RELIEF CALL 911 Lancets (ACCU-CHEK SOFTCLIX LANCETS) lancets Checking blood sugars 4 times daily. Dx: E11.42 CPAP Auto bilevel with humidity set as follows: IPAP max 24, EPAP min 8 and PS 4-6 cmH2O. Comfort settings TiMax 2.0, TiMin 0.3, Trigger -M, Cycle-M. Continue using ResMed N20 nasal mask interface. docusate sodium (COLACE ORAL) Take by mouth. lactulose (DUPHALAC, CONSTULOSE) 10 gram/15 mL solution 30 mL q 24 HR. ferrous sulfate 325 mg (65 mg iron) tablet Take 325 mg by mouth twice daily with meals. BIPAP calcium citrate (CITRACAL ORAL) Take 2 tablets by mouth twice daily. multivit-min/iron/folic acid/K (BARIATRIC MULTIVITAMINS ORAL) Take by mouth. fluticasone (FLONASE) 50 mcg/actuation nasal spray Use 2 Sprays in each nostril once daily. COMPOUNDED PRESCRIPTION Initiate BiPAP @ 15/9 cm of water with humidification. Mask (per patient preference) optional chin strap (if indicated) , filters, tubing, humidifier and lifetime supplies. Dx. ABDI 327.23 polyethylene glycol 3350(MIRALAX 100 % ORAL POWDER) 17 grams/8 0z water daily ASA LOW DOSE 81MG TAB EC Take one(1) tablet daily. furosemide (LASIX) 40 mg tablet Take 1 tablet by mouth once daily. Per Dr. Lilian Vance, nephrology. gabapentin (NEURONTIN) 400 mg capsule Take 2 capsules by mouth daily at bedtime for 180 days. gabapentin (NEURONTIN) 300 mg capsule Take 2 capsules by mouth every morning for 180 days. No current facility-administered medications for this visit. Objective BP 112/60 Pulse 74 Resp 16 Wt 92.2 kg (203 lb 4.8 oz) LMP 06/27/2011 SpO2 98% BMI 39.70 kg/m Physical Exam Constitutional: Appearance: She is not ill-appearing. Cardiovascular: Rate and Rhythm: Normal rate and regular rhythm. Heart sounds: No murmur heard. No gallop. Pulmonary: Effort: No respiratory distress. Breath sounds: No wheezing or rales. Musculoskeletal: Left hand: Swelling, deformity and tenderness present. Right lower le+ Pitting Edema present. Left lower le+ Pitting Edema present. Comments: Residual of gout, left hand digits 1 & 2. . Neurological: Mental Status: She is alert. Gait: Gait abnormal. Assessment and Plan 1. Acute gout, unspecified cause, unspecified site - ICD9: 274.01, ICD10: M10.9 (primary diagnosis) Recheck labs. Continue medications for now. - URIC ACID BLOOD 2. Type 2 diabetes mellitus with diabetic neuropathy, with long-term current use of insulin (HCC) - ICD9: 250.60, 357.2, V58.67, ICD10: E11.40, Z79.4 - Worsening control - See HPI. 3. Anemia, unspecified type - ICD9: 285.9, ICD10: D64.9 Monitor. - CBC 4. Edema, unspecified type - ICD9: 782.3, ICD10: R60.9 Controlled. - FUROSEMIDE 40 MG TABLET - BASIC METABOLIC PNL Jesus Davila MD documented in this encounter [facility] 08-22-2023 Miscellaneous Notes LANETTE: 06/20/2023 Last refill: 01/31/2023 QTY: 6 Refills: 1 documented in this encounter [facility] 08-17-2023 Miscellaneous Notes Dexcom order submitted to [facility] via [place]. Pascale Mendez RN documented in this encounter [facility] 08-06-2023 Miscellaneous Notes Patient has been identified by name and date of : Yes Patient phones for refill(s): Requested Prescriptions Pending Prescriptions Disp Refills allopurinol (ZYLOPRIM) 300 mg tablet 90 tablet 1 Sig: Take 1 tablet by mouth once daily. For gout. Date of last office visit in primary care: 06/20/2023 Date of next office visit in primary care: 08/23/2023 Last 2 Encounter Wt Readings: Date: Wt: 06/20/2023 95.3 kg (210 lb) 04/05/2023 97.6 kg (215 lb 3.2 oz) Previous labs/tests for medication: Not applicable Please advise. Thank you. Christin Thao LPN. documented in this encounter [facility] 07-27-2023 Miscellaneous Notes Images from the original note were not included. Max Best MD [facility] Clerical Pool Please call patient and help them make VIRTUAL appointment with me in 3 months 1st attempt Sent mc to call office. Fransisca Gutierrez documented in this encounter [facility] 07-26-2023 Instructions Max Best MD - 07/26/2023 2:41 PM EST Assessment / Plan Problem: 1) Diabetes type 2, sugar control seems better with combo of better discipline with food, walking more. Discussed idea of taking Humalog 10-15min before meal, she currently does 10. 2) Hip replacement postponed because of poor sugar control, looks better now Unchanged 1) Mixed hyperlipidemia, should get better with better sugar control 2) s/p Sleeve gastrectomy 3) CKD stage 3-4, following with Dr. María Vance 4) ABDI, has new BiPAP, using every night, and also with naps as much as possible (sometimes will fall asleep unexpectedly just sitting in a chair). 5) s/p Hip surgery, is walking around now, getting PT, notes it causes significant pain, but keeps at it. 6) s/p COVID vaccine x 4, discussed Paxlovid. 7) Thyroid CA, no labs in last 10 months, will check now. Treatment / Plan: 1) try taking meal Humalog doses 15min before you start eating. 2) return to me by virtual visit in 3 months. 3) get HbA1c done now, and again along with thyroid tests prior to the 3 month visit Max Best MD documented in this encounter [facility] 07-26-2023 History of Present illness Narrative Images from the original note were not included. Virtual Visit utilizing both audio and video components Likewise [employer] I have communicated my name and active licensure. The patient's identity and physical location were verified at the time of this visit. Either the patient or their legal patient portal representative has been informed of the risks and benefits of -- and alternatives to -- treatment through a remote evaluation and consents to proceed with the evaluation remotely. Patient location: at home, [facility] Assessment / Plan Problem: 1) Diabetes type 2, sugar control seems better with combo of better discipline with food, walking more. Discussed idea of taking Humalog 10-15min before meal, she currently does 10. 2) Hip replacement postponed because of poor sugar control, looks better now Unchanged 1) Mixed hyperlipidemia, should get better with better sugar control 2) s/p Sleeve gastrectomy 3) CKD stage 3-4, following with Dr. María Vance 4) ABDI, has new BiPAP, using every night, and also with naps as much as possible (sometimes will fall asleep unexpectedly just sitting in a chair). 5) s/p Hip surgery, is walking around now, getting PT, notes it causes significant pain, but keeps at it. 6) s/p COVID vaccine x 4, discussed Paxlovid. 7) Thyroid CA, no labs in last 10 months, will check now. Treatment / Plan: 1) try taking meal Humalog doses 15min before you start eating. 2) return to me by virtual visit in 3 months. 3) get HbA1c done now, and again along with thyroid tests prior to the 3 month visit Max Best MD Data Review: PriceSpothone=Tynt [phone] Dexcom share code XZPM NXLR DNKG History Diabetes type 2, insulin doses currently: Levemir 25-25, Humalog 17-17-17 sugar data reviewed from her Dexcom unit no issues of low or high sugars. Hypothyroidism continues to take 175 mcg x 7.5/wk. s/p COVID vaccine x 4 Diabetes History Type (2003): dx diabetes type 2 Control hx Component Hemoglobin A1C Latest Ref Rng & Units 4.3 - 5.6 % 08/29/2019 6.8 02/20/2020 7.5 (H) 06/10/2020 8.2 (H) 12/17/2020 6.0 05/31/2021 7.2 (H) 11/28/2021 6.2 (H) 01/31/23 6.6 Testing freq (11/11/15): 4x/d Eye hx (07/2015): no DM changes per pt (10/2022): no DM changes per pt Renal hx Component Albumin/Creat Ratio Latest Ref Rng 0 - 30 mg/g 02/16/2010 10 07/05/2010 9 05/08/2011 13 08/08/2013 9 02/02/2015 17 Component BUN Creatinine Latest Ref Rng & Units 7 - 21 mg/dL 0.58 - 0.96 mg/dL 09/13/2015 18 0.91 03/09/2016 16 1.01 06/07/2016 14 0.88 09/08/2017 30 (H) 1.40 (H) 03/27/2018 38 2.01 04/01/2018 27 1.68 12/02/2018 26 1.02 (04/02/18): 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 follows her Liver hx Component Bilirubin, Total Alkaline Phosphatase AST ALT Latest Ref Rng 0.0 - 1.5 mg/dL 40 - 150 U/L 7 - 40 U/L 0 - 45 U/L 07/02/2014 0.2 93 84 (H) 68 (H) 09/21/2014 0.3 74 26 24 06/23/2015 0.3 97 56 (H) 68 (H) 06/24/2015 0.3 89 57 (H) 72 (H) BP hx Vitals 06/24/2015 06/30/2015 09/04/2015 09/13/2015 11/11/2015 SITTING BP 121/64 104/67 120/70 130/80 100/62 (11/11/15): lisinopril 2.5 mg/d, metoprolol 25 mg 2x/d, Neuro hx (11/11/15): numb tingling dysesthesias in feet and legs, gets shaky sweaty with hypoglycemia Vascular hx (11/11/15): no hx [place], stroke Component Latest Ref Rng 02/20/2014 07/02/2014 09/24/2014 Triglyceride 30 - 149 mg/dL 133 134 158 (H) Cholesterol 100 - 199 mg/dL 170 189 186 HDL Cholesterol >55 mg/dL 53 (L) 62 45 (L) LDL Cholesterol 60 - 129 mg/dL 90 100 109 Non HDL Cholesterol 90 - 159 mg/dL 117 127 141 (11/11/15): niacin CR 500 mg 2x/d (06/02/19): no Rx lipids Sleep hx (11/11/15): has ABDI, on BiPAP, never sleeps without it (05/26/16): using BiPAP ever night Exercise hx (11/11/15): no exercise Medications (11/11/15): Victoza 1.8 mg daily, glimepiride 2 mg: AM=1, PM=09/11, metformin 500 mg ii-i-ii, sliding scale Humalog, using 1-3 units at a time. (05/26/16): Lantus 10 units, Victoza 1.8 mg/d, glimepiride 2 mg: AM=1, PM=09/11, metformin 500 mg ii-i-ii (11/28/16): Lantus 10 units, Victoza 1.8 mg/d, glimepiride 2 mg: AM=1, PM=09/11, metformin 500 mg ii-i-ii (04/16/17): Lantus 15 units at bed, Victoza 1.8 mg/d, glimepiride 2mg 2x/d, metformin 500 mg ii-i-ii (05/30/17): Lantus 28 units at bed, and meal Humalog 9-9-9-9 (i.e. taking another 9 units at bedtime snack), Victoza 1.8 mg/d, glimepiride 2mg 2x/d, metformin 500 mg ii-i-ii (06/05/17): Levemir 17 units twice a day, and meal Humalog 12-11-10, plus sliding scale (09/11/17): Levemir 17 AM and HS, meal Humalog 12-11-10-9 (last is for snack), plus sliding scale1 per 20, goal 120 (12/18/17): Levemir 12 units AM & HS, Humalog 8-8-7-6 plus sliding scale, metformin 500mg 2-1-1 (04/02/18): Levemir 12 units AM and HS, and Humalog 8-8-7-6 plus sliding scale, has stopped metformin (05/27/18): Levemir 22 units AM and HS, and Humalog 15-12-14-11 (08/27/18): Levemir 34 units 2x/d, Humalog 18-15-18-15 (12/04/18): Levemir 34 units 2x/d, Humalog 18-15-18-11 (03/06/19): Levemir 17 units in AM, 19 units in PM. 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 Jamey Ibrahim, [facility] Pathology (10/29/09): FNA Atypical cells present in a background of cyst contents, suspicious for papillary thyroid carcinoma (12/15/09): single well-circumscribed nodule in the right inferior lobe, which measured 3.5 cm in greatest dimension. The nodule was extensively hemorrhagic and cystic with a rim of viable material which ranges in appearance from papillary architecture to follicular structures. There is no evidence of a higher grade component. There is no definitive lymphovascular space invasion identified. In some areas, the tumor cells have oncocytic cytoplasm, however, the cells do not meet criteria for tall-cell variant of papillary thyroid carcinoma. Scan (02/24/10): post-Rx 131-Iodine scan, SIDDIQI (02/16/10): Rx 102.4 mCi 131-Iodine Thyroglobulin Component Thyroglobulin TG Antibody Screen Latest Ref Rng & Units 0.8 - 49.0 ng/mL <14.4 IU/mL 11/05/2009 75.7 (H) 1.0 01/18/2010 <0.2 (L) 1.1 02/16/2010 0.3 (L) 1.0 07/05/2010 <0.2 (L) 1.3 12/27/2010 <0.2 (L) 1.3 05/08/2011 <0.2 (L) 1.1 07/24/2011 <0.2 (L) 1.5 01/23/2012 <0.2 (L) 1.0 07/27/2012 <0.2 (L) <1.0 02/18/2013 <0.2 (L) <1.0 08/12/2013 <0.2 (L) <1.0 02/16/2014 <0.2 (L) <1.0 09/24/2014 <0.2 (L) <1.0 03/08/2015 <0.2 (L) 1.3 12/10/2015 <0.2 (L) <1.0 05/25/2016 <0.2 (L) <1.0 11/15/2016 <0.2 (L) 1.3 Vitamin D Component Vitamin D 25 Hydroxy Latest Ref Rng 31.0 - 80.0 ng/mL 01/18/2010 39.7 01/17/2011 48.1 07/24/2011 50.6 01/23/2012 40.2 02/18/2013 43.0 08/12/2013 40.0 02/16/2014 39.5 09/24/2014 36.0 Ultrasound (01/18/10): no suspicious adenopathy along great vessels or in lateral neck on either side. No masses in thyroid bed. (11/11/15): no suspicious adenopathy along great vessels or in lateral neck on either side. No masses in thyroid bed. (11/28/16): no suspicious adenopathy along great vessels or in lateral neck on either side. No masses in thyroid bed. ROS PHYSICAL EXAM PAST MED / SURG / FAMILY / SOCIAL HISTORY PAST MEDICAL HISTORY Diagnosis Date (HFpEF) heart failure with preserved ejection fraction (HCC) 06/23/2015 Dr. 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) 02/06/2015 Coronary artery calcification seen on CAT scan 01/21/2013 Depressive disorder 03/31/2016 Diverticulosis 08/23/2010 Diverticulosis of colon (without mention of hemorrhage) Edema GERD without esophagitis 09/02/2019 Hearing loss HTN (hypertension) 08/12/2014 Hypertensive kidney disease with stage 3a chronic kidney disease (HCC) 08/12/2014 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) 06/30/2020 Ingrown toenail Morbid obesity (HCC) Obstructive sleep apnea CPAP Other and unspecified hyperlipidemia Other dyspnea and respiratory abnormality Palpitations Primary osteoarthritis of both hips 08/18/2020 Rosacea Symptomatic menopausal or female climacteric states 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 Type II or unspecified type diabetes mellitus without mention of complication, not stated as uncontrolled 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 07/10/2018 Unspecified intestinal obstruction 10/2018 PAST SURGICAL HISTORY Procedure Laterality Date APPENDECTOMY 05/20/2001 open ARTHRP KNE CONDYLE&PLATU MEDIAL&LAT COMPARTMENTS Left 08/18/2014 Knee replacement, total left ARTHRP KNE CONDYLE&PLATU MEDIAL&LAT COMPARTMENTS Right 06/12/2012 total right knee arthroplasty ; THYROIDECTOMY TOTAL OR COMPLETE Bilateral 12/15/2009 Papillary Ca CHOLECYSTECTOMY 05/20/2001 Cholecystectomy-lap COLONOSCOPY FLX DX W/COLLJ SPEC WHEN PFRMD 06/06/2004 COLONOSCOPY FLX DX W/COLLJ SPEC WHEN PFRMD 08/23/2010 EXCISION EXCESSIVE SKIN & SUBQ TISSUE OTHER AREA 01/17/2002 Abdominoplasty EXPLORATORY LAPAROTOMY, CELIOTOMY-SP 06/24/2020 Takedown of enteroprosthetic fistula.Small bowel resection anastosmosis. Removal infected mesh. Recurrent vental hernia repair. HIP ARTHROSCOPY W/SYNOVECTOMY Right 09/19/2021 exc.seroma; gluteus repair; rotium augmentation; trochanteric bursectomy, iliotibial band resection LAPAROCOPIC SLEEVE GASTRECTOMY 03/10/2019 Extensive laparoscopic lysis of adhesions. EGD. Lap. TAP block. LEFT HEART CATH,PERCUTANEOUS 09/13/2017 no significant CAD NEPHRECTOMY PARTIAL Right 03/1991 Right side for benign tumor, small lesion removed REPAIR FIRST ABDOMINAL WALL HERNIA 09/25/2005 7 times total RPR 1ST INCAL/VNT HERNIA INCARCERATED 06/11/2007 with mesh TOTAL ABDOMINAL HYSTERECT W/WO RMVL TUBE OVARY 05/20/2001 PER, for fibroids and BSO TOTAL HIP REPLACEMENT Right 10/20/2020 anterior minimally invasive right total hip FAMILY HISTORY Problem Relation Age of Onset COPD Mother at 64 yoa Ischemic Heart Disease Father Mi at 61 yoa GI Brother cirrhosis other (AAA rupture) Brother Lung cancer, 49 yoa Hypertension Sister 2 years younger Coronary Artery Disease Sister Stroke Sister Diabetes Sister Cancer Paternal Aunt Cervical cancer Diabetes Maternal Aunt Diabetes Paternal Aunt Diabetes Paternal Grandfather Heart Paternal Uncle other (parkinson) Son 41 Social History Tobacco Use Smoking status: Former Packs/day: 2.00 Years: 15.00 Additional pack years: 0.00 Total pack years: 30.00 Types: Cigarettes Quit date: 09/10/1991 Years since quittin.8 Smokeless tobacco: Never Vaping Use Vaping Use: Never used Substance Use Topics Alcohol use: No Drug use: No MEDICATIONS & ALLERGIES Prior to Admission Medications: Current Outpatient Prescriptions on File Prior to Visit: HYDROcodone-Acetaminophen (NORCO) 10-325 mg per tablet Take 1 tablet by mouth every 6 hours as needed for Pain. fluticasone (FLONASE) 50 mcg/actuation nasal spray Use 2 Sprays in each nostril once daily. codeine-guaiFENesin (ROBITUSSIN AC) 10-100 mg/5 mL syrup Take 5-10 mL by mouth four times daily as needed for Cough. May cause drowsiness. furosemide (LASIX) 20 mg tablet Take 1 tablet by mouth twice daily. LORazepam (ATIVAN) 0.5 mg tab Take 1 tablet by mouth twice daily as needed. gabapentin (NEURONTIN) 300 mg capsule 2 AT HS AND ONE IN AM potassium chloride (K-TAB) 10 mEq tablet Take 1 tablet by mouth once daily. nitroglycerin sublingual (NITROQUICK) 0.4 mg SL tablet Dissolve 1 tablet under the tongue as needed. FOR CHEST PAIN. IF NO RELIEF CALL 911 Insulin Lispro, Human, (HUMALOG KWIKPEN) 100 unit/mL inpn 1-9 units before mealtime and at bedtime, according to sliding scale Insulin Wales, Disposable, (TIFFANIE PEN NEEDLE) 32 x 5/32 ndle use 4 times a day with Humalog pen blood sugar diagnostic (ACCU-CHEK SMARTVIEW TEST STRIP) test strip Use as instructed to test blood glucose 4 times daily (sugars currently uncontrolled, CKD stage 3) glimepiride (AMARYL) 2 mg tablet 1 pill in morning, and 1/2 pill at supper Lancets lancets Testing twice a day. DX:250.00 SYNTHROID 175 mcg tablet Take 1 tablet by mouth once daily. Take 8 tablets per week metFORMIN (GLUCOPHAGE) 500 mg tablet Take by mouth. take 2 in the morning, 1 at supper, 1 at bedtime lisinopril 2.5 mg tablet Take 1 tablet by mouth once daily. liraglutide (VICTOZA 3-DEVIN) 0.6 mg/0.1 mL (18 mg/3 mL) pnij Inject 1.8 mg subcutaneously once daily. metoprolol tartrate, short acting, (LOPRESSOR) 25 mg tablet Take 1 tablet by mouth twice daily. blood sugar diagnostic (CONTOUR TEST STRIPS) test strip Test blood sugar(s) 4 times daily. Dx: 250.0. Insulin: No niacin 500 mg CR capsule Take 1 capsule by mouth twice daily. nhvyv-2e-wbi-epa-fish oil-D3 360 mg-1,200 mg -1,000 unit cap Take by mouth three times daily. Insulin Wales, Disposable, (PEN NEEDLE) 29 x 1/2 ndle Use 1 time daily with injectable pen glimepiride (AMARYL) 1 mg tablet Take 1 tablet by mouth once daily. As directed (Patient taking differently: Take 2 mg by mouth once daily. As directed) COMPOUNDED PRESCRIPTION Initiate BiPAP @ 15/9 cm of water with humidification. Mask (per patient preference) optional chin strap (if indicated) , filters, tubing, humidifier and lifetime supplies. Dx. ABDI 327.23 diphenhydrAMINE (BENADRYL ALLERGY) 25 mg tablet Take 1 tablet by mouth every 6 hours as needed for Itching/Rash. COMPOUNDED PRESCRIPTION Pen Needle BD Ultra Fine 29 g 12.7 mm Twice a day as directed 250.00 insulin needles, DISPOSABLE, (PEN NEEDLE) 31 X 5/16 Ndle use as directed twice daily Omeprazole Magnesium (PRILOSEC) 10 mg SuDR Take by mouth as needed. Cholecalciferol, Vitamin D3, 1,000 unit ORAL Tab Take by mouth once daily. metroNIDAZOLE (METROGEL) 1 % TOPICAL gel Apply to affected area once daily. blood sugar diagnostic (ASCENSIA MICROFILL) Misc test strip Check before and after each meal and at hs polyethylene glycol 3350(MIRALAX 100 % ORAL POWDER) 17 grams/8 0z water daily ASA LOW DOSE 81MG TAB EC Take one(1) tablet daily. No current facility-administered medications on file prior to visit. ALLERGIES Allergen Reactions Adhesive Tape (Jamila* Other: See Comments Contact celluitis Crestor [Rosuvastat* Intolerance Lantus [Insulin Gla* Intolerance burning at local injection site Nickel Rash in jewelry; also Palladium which cross reacts with nickel in some cases. Palladium Rash Pravastatin Intolerance Muscle cramps Toradol [Ketorolac] Hives documented in this encounter [facility] 07-25-2023 History of Present illness Narrative CDM Telephonic Outreach Provider Action/FYI Contacted for: Routine Telephonic Outreach Contact made with patient: Yes Patient identified by name and date of . Discussed care with patient Are you experiencing any new or worsening symptoms you need to talk about today? No Disease Specific Do you check your blood pressure at home? Yes, Enter readings: 110/70 Do you have new or worsening shortness of breath with activity? No Do you have new or worsening trouble breathing while lying flat? No Do you have new or worsening swelling of legs, feet or ankles? No Do you feel like you are dehydrated for any reason, including not being able to eat or drink normally, or having less urine/much darker urine than normal for you? No Do you check your daily weight at home? Yes, Have you noticed a sudden gain in weight greater than three pounds in a day or three pounds in a week? No Based on manager of selection and assessment, the following disposition is advised: No symptoms or symptoms present, not severe. Routed to: No Action Needed IVAN Education Provided this Outreach: No Catherine Pompa RN July 25, 2023 2:49 PM Care Coordination next call- Last CDM outreach contact: 07/25- No concerns. wt 201 lbs Baseline: 05/02/23 ADL, FALL, GOAL due: 08/16/23 . Chronic disease goal - 02/02/23 -chf/ckd need zones/management SDOH transportation and food insecurity completed: 02/02/23 [facility] Telephonic Outreach Provider Action/FYI Contacted for: Routine Telephonic Outreach Contact made with patient: No, left message. Catherine Pompa RN July 25, 2023 12:00 PM documented in this encounter [facility] 07-16-2023 Miscellaneous Notes Patients knee surgery was canceled due to low BG levels. Most recent Dexcom data pasted below. Images from the original note were not included. documented in this encounter [facility] 07-02-2023 Miscellaneous Notes LANETTE: 06/20/2023 Last refill: 01/08/2023 QTY: 90 Refills: 1 documented in this encounter [facility] 06-28-2023 Miscellaneous Notes ORTHOPAEDIC COORDINATION OF CARE Pre-Op Assessment Discharge Disposition (Planned): Home with Home Health Discharge Transportation: Car PRIMARY CARE PHYSICIAN: Jesus Davila MD OR Surgery Date: 07/16/2023 [facility] Appointment: 07/16/2023 Joint: Jointtype: Hip Side: left Health Insurance: [employer] Medicare PPO Primary Contact: Extended Emergency Contact Information Primary Emergency Contact: Edward Kirkpatrick Address: [address] [place] [address] [place] [address] Mobile Relation: Spouse Have you had joint replacement surgery before?: Yes: Right Hip and both knees Date: Patient cannot recall dates of previous surgeries Social: Pre-Hospital Baseline Mental Status: Alert & Oriented Informant: Self Living Arrangement: Home Who able to assist you at home once you discharge? Spouse Are they available for at least 2 weeks? Yes Stairs: One story home 3 stairs to enter home Bedroom Location: First Bathroom Location: First Do you have problems that affect your ability to perform normal activities of daily living such as bathing, dressing, or toileting yourself? Yes= 1 What is your current functional status?: Perform ADLs with assistance Are you able to afford your medications/Food? Yes Social Determinants of Health Tobacco Use: Medium Risk (06/20/2023) Patient History Smoking Tobacco Use: Former Smokeless Tobacco Use: Never Passive Exposure: Not on file Alcohol Use: Not At Risk (02/20/2023) AUDIT-C Frequency of Alcohol Consumption: Monthly or less Average Number of Drinks: 1 or 2 Frequency of Binge Drinking: Never Financial Resource Strain: Low Risk (02/20/2023) Overall Financial Resource Strain (CARDIA) Difficulty of Paying Living Expenses: Not hard at all Food Insecurity: No Food Insecurity (02/20/2023) Hunger Vital Sign Worried About Running Out of Food in the Last Year: Never true Ran Out of Food in the Last Year: Never true Transportation Needs: No Transportation Needs (02/20/2023) PRAPARE - Transportation Lack of Transportation (Medical): No Lack of Transportation (Non-Medical): No Physical Activity: Inactive (02/20/2023) Exercise Vital Sign Days of Exercise per Week: 0 days Minutes of Exercise per Session: 0 min Stress: No Stress Concern Present (02/20/2023) [place] [employer] - Occupational Stress Questionnaire Feeling of Stress : Not at all Social Connections: Moderately Isolated (02/20/2023) Social Connection and Isolation Panel [NHANES] Frequency of Communication with Friends and Family: Once a week Frequency of Social Gatherings with Friends and Family: Once a week Attends Confucianism Services: Never Active Member of Clubs or Organizations: Yes Attends Club or Organization Meetings: More than 4 times per year Marital Status: Intimate Partner Violence: Not At Risk (02/20/2023) Humiliation, Afraid, Rape, and Kick questionnaire Fear of Current or Ex-Partner: No Emotionally Abused: No Physically Abused: No Sexually Abused: No Depression: Not at risk (04/05/2023) PHQ-2 PHQ-2 Score: 1 Housing Stability: Low Risk (02/20/2023) Housing Stability Vital Sign Unable to Pay for Housing in the Last Year: No Number of Places Lived in the Last Year: 1 Unstable Housing in the Last Year: No Utilities: Not At Risk (06/28/2023) [facility] Utilities Threatened with loss of utilities: No Area Deprivation Index: High Risk (01/31/2023) Area Deprivation Index National Score (1-100), lower number is lower risk: 99 State Score (1-10), lower number is lower risk: 10 Data from: https://www.neighborhoodatlas.[facility]/. Last address used for calculation: [address] Equipment: Do you currently use any equipment at home for your medical condition or to help you get around? Elevated toilet seat Rollator Scooter Tub bench/chair Active Services/Needs: None Transportation: Do you have reliable transportation to and from surgery/appointments?: Yes Who will provide discharge transportation: Spouse Will your ride be available for 1200 discharge time? Yes Office Visit Follow Up Did you receive the antiseptic wipes from your surgeon s office? Yes Did you receive a prescription for an assistive device (walker or crutches) from your surgeon s office and fill it or do you already have one at home? Yes Did you attend a joint education class/Watched video? No Did you read the education book provided to you? No Have you let your PCP know you are having a joint replacement surgery? Yes If you are currently being seen by pain management, are they aware you are having a joint replacement surgery? N/A Have you informed any specialty care providers of your upcoming joint replacement surgery? No, If no, plan for correction is: Patient advised to notify specialty care providers of upcoming surgery Have you made arrangements for your pets? Yes Is your house ready for your recovery? Yes FREEDOM OF CHOICE: Level of Care Discussed: Home Care Provider List: Home Care Provider list within the patient's requested geographic area offered to the patient/family: Yes - Within [address] of [id number] [place] [address] Total Joint Arthroplasty (TJA) Surgical Risk Procedure: Primary total Hip replacement Date assessed: risk assessed on 04/27/2023 TJA Risk 04/27/2023 Procedure Primary total Hip replacement Estimated Length of Stay (# of days) 2 Chance of NOT Returning Home at Discharge 39.36 % 30 Day Chance of Readmission 5.56 % Inpatient CM to send referrals to: [facility] Patient's spouse stated surgeon informed them that patient will likely remain in the hospital for 2 days following surgery, no plan for same day D/C at this time SIGNATURE: JAMIR España DATE: June 28, 2023 TIME: 10:36 AM documented in this encounter [facility] 06-27-2023 History of Present illness Narrative CDM Telephonic Outreach Provider Action/FYI Contacted for: Routine Telephonic Outreach Contact made with patient: Yes Patient identified by name and date of . Discussed care with patient Are you experiencing any new or worsening symptoms you need to talk about today? No Disease Specific Do you check your blood pressure at home? Yes, Enter readings: 110/60 Do you have new or worsening shortness of breath with activity? Yes more SOB with activity (getting in and out of car) ongoing for a couple days + cough with clear sputum, nasal discharge clear Denies edema Speaking in complete sentences. Do you have new or worsening trouble breathing while lying flat? No Do you have new or worsening swelling of legs, feet or ankles? No Do you feel like you are dehydrated for any reason, including not being able to eat or drink normally, or having less urine/much darker urine than normal for you? No Do you check your daily weight at home? Yes, Have you noticed a sudden gain in weight greater than three pounds in a day or three pounds in a week? No Based on manager of selection and assessment, the following disposition is advised: No symptoms or symptoms present, not severe. Routed to: No Action Needed IVAN Education Provided this Outreach: No Catherine Pompa RN June 27, 2023 2:13 PM Care Coordination next call- Last CDM outreach contact: 06/27- Feels more SOB with getting in and out of car. feels it is from cold offered appt. Pt declined. Recommended if any new or worsening symptoms contact PCP Hip surgery 07/16 Baseline: 05/02/23 ADL, FALL, GOAL due: 08/16/23 . Chronic disease goal - 02/02/23 -chf/ckd SDOH transportation and food insecurity completed: 02/02/23 documented in this encounter [facility] 06-20-2023 History of Present illness Narrative This note was created using BookingNestter. Subjective Bhakti Kirkpatrick is a 78 year old female here with spouse. She was in the ER for a fall on 06/15/23. She got up from her recliner and apparently moved forward without her rollator and fell forward on her face and hands. She denied LOC. In the ER she had CT brain, CT neck, Xrays of right shoulder, right hand, lumbar spine, and left hip showed no acute injury. She was treated with Tylelol declining pain medication. She was now feeling the pain from the fall more, and rated pain 4/10. Review of Systems Constitutional: Negative for chills and fever. Respiratory: Negative for shortness of breath. Cardiovascular: Negative for chest pain. Gastrointestinal: Negative for abdominal pain. Genitourinary: Negative for difficulty urinating. Musculoskeletal: Positive for back pain, gait problem and myalgias. Neurological: Negative for dizziness, syncope, speech difficulty and headaches. ACTIVE PROBLEM LIST Edema Abdi Treated With Bipap Arteriosclerotic Heart Disease (Ashd) Hypertensive Heart Disease With Heart Failure and Stage 4 Chronic Kidney Disease (Hcc) Degenerative Arthritis of Knee Myalgia Hyperlipidemia (Hfpef) Heart Failure With Preserved Ejection Fraction (Hcc) Fatty Liver History of Thyroid Cancer Type 2 Diabetes Mellitus With Stage 4 Chronic Kidney Disease, With Long-Term Current Use of Insulin (Hcc) Depression, Recurrent (Hcc) Chronic Kidney Disease, Stage IV (Severe) ([facility]) S/P Laparoscopic Sleeve Gastrectomy Gerd Without Esophagitis Sensory Hearing Loss, Bilateral Class 3 Severe Obesity With Body Mass Index (Bmi) of 45.0 to 49.9 in Adult ([facility]) Type 2 Diabetes Mellitus With Diabetic Neuropathy, With Long-Term Current Use of Insulin ([facility]) Primary Osteoarthritis of Both Hips Vertigo Cognitive Impairment Circadian Rhythm Sleep Disorder, Irregular Sleep Wake Type Anemia Acute Gout Involving Toe of Right Foot Chronic Bronchitis (Hcc) Current Outpatient Medications Medication Sig allopurinol (ZYLOPRIM) 300 mg tablet Take 1 tablet by mouth once daily. For gout. alpha lipoic acid 200 mg cap Take 1 capsule by mouth three times daily. For neuropathy. ASA LOW DOSE 81MG TAB EC Take one(1) tablet daily. BIPAP blood sugar diagnostic (ACCU-CHEK ANNALISE PLUS TEST STRP) test strip Use to check blood sugar 4 times daily Blood-Glucose Transmitter (Histros G6 TRANSMITTER) claudia change every 3 weeks calcium citrate (CITRACAL ORAL) Take 2 tablets by mouth twice daily. colchicine 0.6 mg tablet Take 2 tabs by mouth, followed by 1 tab one hour later for gout flare. May repeat in 1 week. COMPOUNDED PRESCRIPTION Initiate BiPAP @ 15/9 cm of water with humidification. Mask (per patient preference) optional chin strap (if indicated) , filters, tubing, humidifier and lifetime supplies. Dx. ABDI 327.23 CPAP Auto bilevel with humidity set as follows: IPAP max 24, EPAP min 8 and PS 4-6 cmH2O. Comfort settings TiMax 2.0, TiMin 0.3, Trigger -M, Cycle-M. Continue using ResMed N20 nasal mask interface. diclofenac (VOLTAREN) 1 % topical gel Apply 4 g to affected area four times daily. docusate sodium (COLACE ORAL) Take by mouth. DULoxetine (CYMBALTA) 60 mg capsule Take 1 capsule by mouth once daily. esomeprazole (NEXIUM) 40 mg capsule Take 1 capsule by mouth twice daily before meals. evolocumab (REPATHA SURECLICK) 140 mg/mL pen injector Inject 140 mg subcutaneously every 2 weeks. Per [facility]. ferrous sulfate 325 mg (65 mg iron) tablet Take 325 mg by mouth twice daily with meals. fluticasone (FLONASE) 50 mcg/actuation nasal spray Use 2 Sprays in each nostril once daily. furosemide (LASIX) 40 mg tablet Take 1 tablet by mouth three times daily. Per Dr. Lilian Vance, nephrology. gabapentin (NEURONTIN) 300 mg capsule Take 2 capsules by mouth every morning for 180 days. gabapentin (NEURONTIN) 400 mg capsule Take 2 capsules by mouth daily at bedtime for 180 days. glucagon 3 mg/actuation nasal spray (BAQSIMI) Use 1 [place] in the nose as needed for low blood sugar. May repeat after 15 minutes using a new device if there is no response. insulin aspart U-100 (NOVOLOG FLEXPEN U-100 INSULIN) 100 unit/mL (3 mL) 14 in AM, 14 at lunch, 14 at supper, 10 at bed, plus extra based on sugars, max daily dose 100 units plus sliding scale insulin detemir U-100 (LEVEMIR FLEXTOUCH U-100 INSULIN) 100 unit/mL (3 mL) injection pen 40 units twice a day, adjust dose based on sugars, max daily dose 100 units insulin lispro (HUMALOG) 200 unit/mL (3 mL) injection take up to 165 units daily Insulin Wales, Disposable, (BD ULTRAFINE III MINI PEN) 31 gauge x 3/16 1 Each as directed. 6 times daily. Dx:E11.40. On multiple insulin doses. lactulose (DUPHALAC, CONSTULOSE) 10 gram/15 mL solution 30 mL q 24 HR. Lancets (ACCU-CHEK SOFTCLIX LANCETS) lancets Checking blood sugars 4 times daily. Dx: E11.42 levothyroxine (SYNTHROID) 175 mcg tablet 7 & 1/2 pills per week (one a day with extra half pill on Sunday) lidocaine (LIDODERM) 5 % Apply 1 Patch as directed every 12 hours. Remove old patch prior to placing new patch. Location: arms, left rib. 12 hours on, 12 hours off. melatonin 10 mg ODT Take 1 tablet by mouth at bedtime as needed. memantine (NAMENDA) 10 mg tablet Take 1 tablet by mouth twice daily. metoprolol tartrate, short acting, (LOPRESSOR) 25 mg tablet Take 1 tablet by mouth twice daily. multivit-min/iron/folic acid/K (BARIATRIC MULTIVITAMINS ORAL) Take by mouth. mupirocin (BACTROBAN) 2 % ointment Apply to both nares twice daily for the five days preceding your joint replacement surgery nitroglycerin sublingual (NITROQUICK) 0.4 mg SL tablet Dissolve 1 tablet under the tongue as needed. FOR CHEST PAIN. IF NO RELIEF CALL 911 polyethylene glycol 3350(MIRALAX 100 % ORAL POWDER) 17 grams/8 0z water daily No current facility-administered medications for this visit. Objective BP 114/72 (BP Site: Left Arm, BP Position: Sitting, BP Cuff Size: Large Adult) Pulse 92 Temp 36.8 C (98.2 F) (Temporal) Wt 95.3 kg (210 lb) LMP 06/27/2011 BMI 41.01 kg/m Physical Exam Constitutional: General: She is not in acute distress. Appearance: She is not ill-appearing or diaphoretic. HENT: Head: Atraumatic. Nose: Signs of injury present. No nasal deformity or nasal tenderness. Right Nostril: No epistaxis. Left Nostril: No epistaxis. Cardiovascular: Rate and Rhythm: Normal rate and regular rhythm. Pulmonary: Effort: No respiratory distress. Breath sounds: Normal breath sounds. No wheezing or rales. Musculoskeletal: General: Tenderness present. No deformity. Cervical back: Tenderness present. Right lower le+ Pitting Edema present. Left lower le+ Pitting Edema present. Neurological: General: No focal deficit present. Mental Status: She is alert. Comments: Rollator walker. Assessment and Plan 1. Fall, subsequent encounter - ICD9: V58.89, E888.9, ICD10: W19.XXXD (primary diagnosis) Fall precautions. Use rollator at all times. 2. Need for influenza vaccination - ICD9: V04.81, ICD10: Z23 - INFLUENZA VACCINE, PRSV FREE, AGE 65+ YR, HIGH DOSE, QUADRIVALENT (FLUZONE HIGH-DOSE) 3. Abrasion of face, subsequent encounter - ICD9: V58.89, ICD10: S00.81XD Resolving. 4. Multiple contusions - ICD9: 924.8, ICD10: T07.XXXA Resolving. We discussed short term opioid. Shared medical decision making was done, and we agreed she was improving on no specific treatment, so new prescriptions will not be needed. 5. Rib pain on left side - ICD9: 786.50, ICD10: R07.81 Refilled. - LIDOCAINE 5 % TOPICAL PATCH 6. Type 2 diabetes mellitus with diabetic neuropathy, with long-term current use of insulin (HCC) - ICD9: 250.60, 357.2, V58.67, ICD10: E11.40, Z79.4 - Improving control - Continue current medications - PEN NEEDLE, DIABETIC 31 GAUGE X /16 7. Type 2 diabetes mellitus with stage 3a chronic kidney disease, with long-term current use of insulin (HCC) - ICD9: 250.40, 585.3, V58.67, ICD10: E11.22, N18.31, Z79.4 - Improving control - Continue current medications - eGFR: 53 Stable - PEN NEEDLE, DIABETIC 31 GAUGE X 11/23 Jesus Davila MD documented in this encounter [facility] 05-30-2023 History of Present illness Narrative CD Telephonic Outreach Provider Action/FYI Contacted for: Routine Telephonic Outreach Contact made with patient: No, left message. Catherine Pompa RN May 30, 2023 2:10 PM Care Coordination next call- lvm x 2 Last CDM outreach contact: 05/02- no new concerns. Getting left total hip this fall Baseline: 05/02/23 ADL, FALL, GOAL due: 08/16/23 . Chronic disease goal - 02/02/23 -chf/ckd SDOH transportation and food insecurity completed: 02/02/23 [facility] Telephonic Outreach Provider Action/FYI Contacted for: Routine Telephonic Outreach Contact made with patient: No, left message. Catherine Pompa RN May 30, 2023 11:54 AM Care Coordination next call- lvm x 1 Last CDM outreach contact: 05/02- no new concerns. Getting left total hip this fall Baseline: 05/02/23 ADL, FALL, GOAL due: 08/16/23 . Chronic disease goal - 02/02/23 -chf/ckd SDOH transportation and food insecurity completed: 02/02/23 documented in this encounter [facility] 05-08-2023 History of Present illness Narrative Radiology Service Progress Note PATIENT NAME: Bhakti Kirkpatrick DATE OF SERVICE: May 08, 2023 TIME: 12:22 PM PATIENT IDENTITY VERIFICATION COMPLETED USING TWO (2) IDENTIFIERS: Name and Date of confirmed by patient verbally. FALL SCREENING: Has the patient had 2 falls in the last year or 1 fall with injury or currently using an Ambulatory Assistive Device (Walker, Cane, Wheelchair, Crutches, etc.)? Yes, Patient High Risk for Falls What interventions were put in place to prevent falls during this visit? Instructed Patient to Call for Help if Needed, Offered Assistance with Transfers/Clothing, and Increased Observations by Caregivers PATIENT GENDER DATA: Female. status: : No status: NO. PATIENT RELEVANT IMPLANT DATA REVIEWED: Yes RADIOLOGY DEPARTMENT: General X-ray: Exam(s) Completed: Rib X-Ray: Left PERIPHERAL IV DATA: Not applicable SIGNED BY: RT Rola(R) May 08, 2023 12:22 PM documented in this encounter [facility] 05-03-2023 Miscellaneous Notes Images from the original note were not included. Max Best MD [facility] Clerical Pool please call patient and help her make virtual appointment 07/26/23 1st attempt Sent to call office. Fransisca Gutierrez documented in this encounter [facility] 05-03-2023 Instructions Max Best MD - 05/03/2023 3:43 PM EDT Assessment / Plan Problem: 1) Diabetes type 2, decided not to use insulin pump, overwhelmed by the instructions. She is having sugars that generally rise through the day, but occasionally will drop for reasons they don't understand, such as on 04/22/23 when sugar dropped to 65 at 5PM. Can't really increase insulin doses in this context, they will work on making notes of what is happening during and before these lows. 2) Hip replacement coming on 07/16/23, will try having virtual visit 10 days later Unchanged 1) Mixed hyperlipidemia, should get better with better sugar control 2) s/p Sleeve gastrectomy 3) CKD stage 3-4, following with Dr. María Vance 4) ABDI, has new BiPAP, using every night, and also with naps as much as possible (sometimes will fall asleep unexpectedly just sitting in a chair). 5) s/p Hip surgery, is walking around now, getting PT, notes it causes significant pain, but keeps at it. 6) s/p COVID vaccine x 4, discussed Paxlovid. 7) Thyroid CA, no labs in last 10 months, will check now. Treatment / Plan: 1) jkeep insulin doses the same 2) make notes about diet, activity, insulin dosing associated with low sugars 3) return to me on 07/26/23 by virtual visit Max Best MD documented in this encounter [facility] 05-03-2023 History of Present illness Narrative Images from the original note were not included. Virtual Visit utilizing both audio and video components FaceTime I have communicated my name and active licensure. The patient's identity and physical location were verified at the time of this visit. Either the patient or their legal patient portal representative has been informed of the risks and benefits of -- and alternatives to -- treatment through a remote evaluation and consents to proceed with the evaluation remotely. Patient location: at home, [facility] Assessment / Plan Problem: 1) Diabetes type 2, decided not to use insulin pump, overwhelmed by the instructions. She is having sugars that generally rise through the day, but occasionally will drop for reasons they don't understand, such as on 04/22/23 when sugar dropped to 65 at 5PM. Can't really increase insulin doses in this context, they will work on making notes of what is happening during and before these lows. 2) Hip replacement coming on 07/16/23, will try having virtual visit 10 days later Unchanged 1) Mixed hyperlipidemia, should get better with better sugar control 2) s/p Sleeve gastrectomy 3) CKD stage 3-4, following with Dr. María Vance 4) ABDI, has new BiPAP, using every night, and also with naps as much as possible (sometimes will fall asleep unexpectedly just sitting in a chair). 5) s/p Hip surgery, is walking around now, getting PT, notes it causes significant pain, but keeps at it. 6) s/p COVID vaccine x 4, discussed Paxlovid. 7) Thyroid CA, no labs in last 10 months, will check now. Treatment / Plan: 1) jkeep insulin doses the same 2) make notes about diet, activity, insulin dosing associated with low sugars 3) return to me on 07/26/23 by virtual visit Max Best MD Data Review: iPhone=[place] [phone] Dexcom share code XZPM NXLR DNKG History Diabetes type 2, insulin doses currently: Levemir 20-65, Humalog sugar data reviewed from her Dexcom unit sugars drifting slowly down to around 60s by 6AM decided not to use OmniPod after looking at instructions Hypothyroidism continues to take 175 mcg x 7.5/wk. s/p COVID vaccine x 4 Diabetes History Type (2003): dx diabetes type 2 Control hx Component Hemoglobin A1C Latest Ref Rng & Units 4.3 - 5.6 % 08/29/2019 6.8 02/20/2020 7.5 (H) 06/10/2020 8.2 (H) 12/17/2020 6.0 05/31/2021 7.2 (H) 11/28/2021 6.2 (H) 01/31/23 6.6 Testing freq (11/11/15): 4x/d Eye hx (07/2015): no DM changes per pt (10/2022): no DM changes per pt Renal hx Component Albumin/Creat Ratio Latest Ref Rng 0 - 30 mg/g 02/16/2010 10 07/05/2010 9 05/08/2011 13 08/08/2013 9 02/02/2015 17 Component BUN Creatinine Latest Ref Rng & Units 7 - 21 mg/dL 0.58 - 0.96 mg/dL 09/13/2015 18 0.91 03/09/2016 16 1.01 06/07/2016 14 0.88 09/08/2017 30 (H) 1.40 (H) 03/27/2018 38 2.01 04/01/2018 27 1.68 12/02/2018 26 1.02 (04/02/18): 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 follows her Liver hx Component Bilirubin, Total Alkaline Phosphatase AST ALT Latest Ref Rng 0.0 - 1.5 mg/dL 40 - 150 U/L 7 - 40 U/L 0 - 45 U/L 07/02/2014 0.2 93 84 (H) 68 (H) 09/21/2014 0.3 74 26 24 06/23/2015 0.3 97 56 (H) 68 (H) 06/24/2015 0.3 89 57 (H) 72 (H) BP hx Vitals 06/24/2015 06/30/2015 09/04/2015 09/13/2015 11/11/2015 SITTING BP 121/64 104/67 120/70 130/80 100/62 (11/11/15): lisinopril 2.5 mg/d, metoprolol 25 mg 2x/d, Neuro hx (11/11/15): numb tingling dysesthesias in feet and legs, gets shaky sweaty with hypoglycemia Vascular hx (11/11/15): no hx [place], stroke Component Latest Ref Rng 02/20/2014 07/02/2014 09/24/2014 Triglyceride 30 - 149 mg/dL 133 134 158 (H) Cholesterol 100 - 199 mg/dL 170 189 186 HDL Cholesterol >55 mg/dL 53 (L) 62 45 (L) LDL Cholesterol 60 - 129 mg/dL 90 100 109 Non HDL Cholesterol 90 - 159 mg/dL 117 127 141 (11/11/15): niacin CR 500 mg 2x/d (06/02/19): no Rx lipids Sleep hx (11/11/15): has ABDI, on BiPAP, never sleeps without it (05/26/16): using BiPAP ever night Exercise hx (11/11/15): no exercise Medications (11/11/15): Victoza 1.8 mg daily, glimepiride 2 mg: AM=1, PM=1/2, metformin 500 mg ii-i-ii, sliding scale Humalog, using 1-3 units at a time. (05/26/16): Lantus 10 units, Victoza 1.8 mg/d, glimepiride 2 mg: AM=1, PM=1/2, metformin 500 mg ii-i-ii (11/28/16): Lantus 10 units, Victoza 1.8 mg/d, glimepiride 2 mg: AM=1, PM=09/11, metformin 500 mg ii-i-ii (04/16/17): Lantus 15 units at bed, Victoza 1.8 mg/d, glimepiride 2mg 2x/d, metformin 500 mg ii-i-ii (05/30/17): Lantus 28 units at bed, and meal Humalog 9-9-9-9 (i.e. taking another 9 units at bedtime snack), Victoza 1.8 mg/d, glimepiride 2mg 2x/d, metformin 500 mg ii-i-ii (06/05/17): Levemir 17 units twice a day, and meal Humalog 12-11-10, plus sliding scale (09/11/17): Levemir 17 AM and HS, meal Humalog 12-11-10-9 (last is for snack), plus sliding scale1 per 20, goal 120 (12/18/17): Levemir 12 units AM & HS, Humalog 8-8-7-6 plus sliding scale, metformin 500mg 2-1-1 (04/02/18): Levemir 12 units AM and HS, and Humalog 8-8-7-6 plus sliding scale, has stopped metformin (05/27/18): Levemir 22 units AM and HS, and Humalog 15-12-14-11 (08/27/18): Levemir 34 units 2x/d, Humalog 18-15-18-15 (12/04/18): Levemir 34 units 2x/d, Humalog 18-15-18-11 (03/06/19): Levemir 17 units in AM, 19 units in PM. 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 Jamey Ibrahim, [facility] Pathology (10/29/09): FNA Atypical cells present in a background of cyst contents, suspicious for papillary thyroid carcinoma (12/15/09): single well-circumscribed nodule in the right inferior lobe, which measured 3.5 cm in greatest dimension. The nodule was extensively hemorrhagic and cystic with a rim of viable material which ranges in appearance from papillary architecture to follicular structures. There is no evidence of a higher grade component. There is no definitive lymphovascular space invasion identified. In some areas, the tumor cells have oncocytic cytoplasm, however, the cells do not meet criteria for tall-cell variant of papillary thyroid carcinoma. Scan (02/24/10): post-Rx 131-Iodine scan, SIDDIQI (02/16/10): Rx 102.4 mCi 131-Iodine Thyroglobulin Component Thyroglobulin TG Antibody Screen Latest Ref Rng & Units 0.8 - 49.0 ng/mL <14.4 IU/mL 11/05/2009 75.7 (H) 1.0 01/18/2010 <0.2 (L) 1.1 02/16/2010 0.3 (L) 1.0 07/05/2010 <0.2 (L) 1.3 12/27/2010 <0.2 (L) 1.3 05/08/2011 <0.2 (L) 1.1 07/24/2011 <0.2 (L) 1.5 01/23/2012 <0.2 (L) 1.0 07/27/2012 <0.2 (L) <1.0 02/18/2013 <0.2 (L) <1.0 08/12/2013 <0.2 (L) <1.0 02/16/2014 <0.2 (L) <1.0 09/24/2014 <0.2 (L) <1.0 03/08/2015 <0.2 (L) 1.3 12/10/2015 <0.2 (L) <1.0 05/25/2016 <0.2 (L) <1.0 11/15/2016 <0.2 (L) 1.3 Vitamin D Component Vitamin D 25 Hydroxy Latest Ref Rng 31.0 - 80.0 ng/mL 01/18/2010 39.7 01/17/2011 48.1 07/24/2011 50.6 01/23/2012 40.2 02/18/2013 43.0 08/12/2013 40.0 02/16/2014 39.5 09/24/2014 36.0 Ultrasound (01/18/10): no suspicious adenopathy along great vessels or in lateral neck on either side. No masses in thyroid bed. (11/11/15): no suspicious adenopathy along great vessels or in lateral neck on either side. No masses in thyroid bed. (11/28/16): no suspicious adenopathy along great vessels or in lateral neck on either side. No masses in thyroid bed. ROS PHYSICAL EXAM PAST MED / SURG / FAMILY / SOCIAL HISTORY PAST MEDICAL HISTORY Diagnosis Date (HFpEF) heart failure with preserved ejection fraction (HCC) 06/23/2015 Dr. 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) 02/06/2015 Coronary artery calcification seen on CAT scan 01/21/2013 Depressive disorder 03/31/2016 Diverticulosis 08/23/2010 Diverticulosis of colon (without mention of hemorrhage) Edema GERD without esophagitis 09/02/2019 Hearing loss HTN (hypertension) 08/12/2014 Hypertensive kidney disease with stage 3a chronic kidney disease (HCC) 08/12/2014 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) 06/30/2020 Ingrown toenail Morbid obesity (HCC) Obstructive sleep apnea CPAP Other and unspecified hyperlipidemia Other dyspnea and respiratory abnormality Palpitations Primary osteoarthritis of both hips 08/18/2020 Rosacea Symptomatic menopausal or female climacteric states 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 Type II or unspecified type diabetes mellitus without mention of complication, not stated as uncontrolled 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 07/10/2018 Unspecified intestinal obstruction 10/2018 PAST SURGICAL HISTORY Procedure Laterality Date APPENDECTOMY 05/20/2001 open ARTHRP KNE CONDYLE&PLATU MEDIAL&LAT COMPARTMENTS Left 08/18/2014 Knee replacement, total left ARTHRP KNE CONDYLE&PLATU MEDIAL&LAT COMPARTMENTS Right 06/12/2012 total right knee arthroplasty ; THYROIDECTOMY TOTAL OR COMPLETE Bilateral 12/15/2009 Papillary Ca CHOLECYSTECTOMY 05/20/2001 Cholecystectomy-lap COLONOSCOPY FLX DX W/COLLJ SPEC WHEN PFRMD 06/06/2004 COLONOSCOPY FLX DX W/COLLJ SPEC WHEN PFRMD 08/23/2010 EXCISION EXCESSIVE SKIN & SUBQ TISSUE OTHER AREA 01/17/2002 Abdominoplasty EXPLORATORY LAPAROTOMY, CELIOTOMY-SP 06/24/2020 Takedown of enteroprosthetic fistula.Small bowel resection anastosmosis. Removal infected mesh. Recurrent vental hernia repair. HIP ARTHROSCOPY W/SYNOVECTOMY Right 09/19/2021 exc.seroma; gluteus repair; rotium augmentation; trochanteric bursectomy, iliotibial band resection LAPAROCOPIC SLEEVE GASTRECTOMY 03/10/2019 Extensive laparoscopic lysis of adhesions. EGD. Lap. TAP block. LEFT HEART CATH,PERCUTANEOUS 09/13/2017 no significant CAD NEPHRECTOMY PARTIAL Right 03/1991 Right side for benign tumor, small lesion removed REPAIR FIRST ABDOMINAL WALL HERNIA 09/25/2005 7 times total RPR 1ST INCAL/VNT HERNIA INCARCERATED 06/11/2007 with mesh TOTAL ABDOMINAL HYSTERECT W/WO RMVL TUBE OVARY 05/20/2001 PER, for fibroids and BSO TOTAL HIP REPLACEMENT Right 10/20/2020 anterior minimally invasive right total hip FAMILY HISTORY Problem Relation Age of Onset COPD Mother at 64 yoa Ischemic Heart Disease Father Mi at 61 yoa GI Brother cirrhosis other (AAA rupture) Brother Lung cancer, 49 yoa Hypertension Sister 2 years younger Coronary Artery Disease Sister Stroke Sister Diabetes Sister Cancer Paternal Aunt Cervical cancer Diabetes Maternal Aunt Diabetes Paternal Aunt Diabetes Paternal Grandfather Heart Paternal Uncle other (parkinson) Son 41 Social History Tobacco Use Smoking status: Former Packs/day: 2.00 Years: 15.00 Additional pack years: 0.00 Total pack years: 30.00 Types: Cigarettes Quit date: 09/10/1991 Years since quittin.6 Smokeless tobacco: Never Vaping Use Vaping Use: Never used Substance Use Topics Alcohol use: No Drug use: No MEDICATIONS & ALLERGIES Prior to Admission Medications: Current Outpatient Prescriptions on File Prior to Visit: HYDROcodone-Acetaminophen (NORCO) 10-325 mg per tablet Take 1 tablet by mouth every 6 hours as needed for Pain. fluticasone (FLONASE) 50 mcg/actuation nasal spray Use 2 Sprays in each nostril once daily. codeine-guaiFENesin (ROBITUSSIN AC) 10-100 mg/5 mL syrup Take 5-10 mL by mouth four times daily as needed for Cough. May cause drowsiness. furosemide (LASIX) 20 mg tablet Take 1 tablet by mouth twice daily. LORazepam (ATIVAN) 0.5 mg tab Take 1 tablet by mouth twice daily as needed. gabapentin (NEURONTIN) 300 mg capsule 2 AT HS AND ONE IN AM potassium chloride (K-TAB) 10 mEq tablet Take 1 tablet by mouth once daily. nitroglycerin sublingual (NITROQUICK) 0.4 mg SL tablet Dissolve 1 tablet under the tongue as needed. FOR CHEST PAIN. IF NO RELIEF CALL 911 Insulin Lispro, Human, (HUMALOG KWIKPEN) 100 unit/mL inpn 1-9 units before mealtime and at bedtime, according to sliding scale Insulin Wales, Disposable, (TIFFANIE PEN NEEDLE) 32 x 5/32 ndle use 4 times a day with Humalog pen blood sugar diagnostic (ACCU-CHEK SMARTVIEW TEST STRIP) test strip Use as instructed to test blood glucose 4 times daily (sugars currently uncontrolled, CKD stage 3) glimepiride (AMARYL) 2 mg tablet 1 pill in morning, and 1/2 pill at supper Lancets lancets Testing twice a day. DX:250.00 SYNTHROID 175 mcg tablet Take 1 tablet by mouth once daily. Take 8 tablets per week metFORMIN (GLUCOPHAGE) 500 mg tablet Take by mouth. take 2 in the morning, 1 at supper, 1 at bedtime lisinopril 2.5 mg tablet Take 1 tablet by mouth once daily. liraglutide (VICTOZA 3-DEVIN) 0.6 mg/0.1 mL (18 mg/3 mL) pnij Inject 1.8 mg subcutaneously once daily. metoprolol tartrate, short acting, (LOPRESSOR) 25 mg tablet Take 1 tablet by mouth twice daily. blood sugar diagnostic (CONTOUR TEST STRIPS) test strip Test blood sugar(s) 4 times daily. Dx: 250.0. Insulin: No niacin 500 mg CR capsule Take 1 capsule by mouth twice daily. rcatb-[id number]-epa-fish oil-D3 360 mg-1,200 mg -1,000 unit cap Take by mouth three times daily. Insulin Wales, Disposable, (PEN NEEDLE) 29 x 1/2 ndle Use 1 time daily with injectable pen glimepiride (AMARYL) 1 mg tablet Take 1 tablet by mouth once daily. As directed (Patient taking differently: Take 2 mg by mouth once daily. As directed) COMPOUNDED PRESCRIPTION Initiate BiPAP @ 15/9 cm of water with humidification. Mask (per patient preference) optional chin strap (if indicated) , filters, tubing, humidifier and lifetime supplies. Dx. ABDI 327.23 diphenhydrAMINE (BENADRYL ALLERGY) 25 mg tablet Take 1 tablet by mouth every 6 hours as needed for Itching/Rash. COMPOUNDED PRESCRIPTION Pen Needle BD Ultra Fine 29 g 12.7 mm Twice a day as directed 250.00 insulin needles, DISPOSABLE, (PEN NEEDLE) 31 X 5/16 Ndle use as directed twice daily Omeprazole Magnesium (PRILOSEC) 10 mg SuDR Take by mouth as needed. Cholecalciferol, Vitamin D3, 1,000 unit ORAL Tab Take by mouth once daily. metroNIDAZOLE (METROGEL) 1 % TOPICAL gel Apply to affected area once daily. blood sugar diagnostic (ASCENSIA MICROFILL) Misc test strip Check before and after each meal and at hs polyethylene glycol 3350(MIRALAX 100 % ORAL POWDER) 17 grams/8 0z water daily ASA LOW DOSE 81MG TAB EC Take one(1) tablet daily. No current facility-administered medications on file prior to visit. ALLERGIES Allergen Reactions Adhesive Tape (Jamila* Other: See Comments Contact celluitis Crestor [Rosuvastat* Intolerance Lantus [Insulin Gla* Intolerance burning at local injection site Nickel Rash in jewelry; also Palladium which cross reacts with nickel in some cases. Palladium Rash Pravastatin Intolerance Muscle cramps Toradol [Ketorolac] Hives documented in this encounter [facility] 05-02-2023 History of Present illness Narrative CDM Telephonic Outreach Provider Action/FYI Contacted for: Routine Telephonic Outreach Contact made with patient: Yes Patient identified by name and date of . Discussed care with patient Are you experiencing any new or worsening symptoms you need to talk about today? No Disease Specific Do you check your blood pressure at home? Yes, Enter readings: 109/68 Always < 130/80 Do you have new or worsening shortness of breath with activity? No SOB with extreme exertion. She can climb a flight of stairs without SOB Do you have new or worsening trouble breathing while lying flat? No Do you have new or worsening swelling of legs, feet or ankles? Sleeps on no pillows; has a electric recliner No Baseline: no swelling Do you feel like you are dehydrated for any reason, including not being able to eat or drink normally, or having less urine/much darker urine than normal for you? No Hydrates with 64 oz per day Urine wnl ;clear and yellow Do you check your daily weight at home? Yes, 209 lbs Have you noticed a sudden gain in weight greater than three pounds in a day or three pounds in a week? No Based on manager of selection and assessment, the following disposition is advised: No symptoms or symptoms present, not severe. Routed to: No Action Needed IVAN Education Provided this Outreach: No Catherine Pompa RN May 02, 2023 2:32 PM Care Coordination next call- Last CDM outreach contact: 05/02- no new concerns. Getting left total hip this fall Baseline: 05/02/23 ADL, FALL, GOAL due: 08/16/23 . Chronic disease goal - 02/02/23 -chf/ckd SDOH transportation and food insecurity completed: 02/02/23 documented in this encounter [facility] 04-27-2023 History of Present illness Narrative ORTHO CARE COORDINATION QUICK NOTE Patient has been identified by name and date of : yes The purpose of this encounter is to schedule LTHA at [facility] on July 16, 2023 Melyssa Glass RN documented in this encounter [facility] 04-27-2023 History of Present illness Narrative CONSULT ORTHOPAEDIC: HIP PRIMARY CARE PHYSICIAN: Jesus Davila MD REFERRING PROVIDER: Jesus Davila [id number] [facility] [place] [address] ASSESSMENT & PLAN Impression: Left Hip Severe Degenerative Osteoarthritis, Primary Provided surgery date for July 16 for posterior/superior L LOR. We discussed her weight at length today. We also discussed her diabetes. She is status post R LOR performed at [facility] with subsequent revision surgery that is ill-defined as to the indications for same. Her gait is considerably affected by her poor abduction and deconditioned state. She maintains a rollator She was provided meet and greet appointment with Dr. Beltran. She is status post bariatric surgery and has a net weight loss of approximately 30 pounds since 2019. Diagnoses: (M16.0) Primary osteoarthritis of both hips Based upon the evaluation today and after discussions with Bhakti Kirkpatrick, Bhakti Rhoda Tapiarianna has significant, worsening pain at the hip. This pain is increased with activity and weight bearing, and interferes with activities of daily living. These symptoms have continued despite a number of non-surgical measures, including a trial of oral pain medication (for at least 12 weeks). At this point, the patient will not benefit from further PT due to the severity of their condition. The patient's physical examination is consistent with limitations in range of motion, pain with passive range of motion, and an antalgic gait. These examination findings are corroborated by imaging findings of joint space narrowing, periarticular osteophyte formation, and subchondral sclerosis. The patient has been treated by the practice and all reasonable treatments have failed to control the disease, which causes significant pain and limits activities of daily living. The patient has failed conservative treatment and joint replacement surgery was discussed and agreed upon by both provider and patient. The patient has elected to proceed with surgical management to improve function and relieve pain refractory to non-surgical measures: Left Primary Total Hip Arthroplasty as evidenced by progressive symptoms. Progressive symptoms include: Pain impacting sleep or causing fatigue Pain worsened by weight bearing Pain effecting living situation Pain limiting ability to stay fit and healthy. Surgery Details Date and Location: At [facility] on Jul.16. Implants: Eolia Robotic: No Predicted LOS: 2 days (Inpatient candidate) The risks and benefits of surgery were discussed at length including but not limited to the risks of infection, bleeding, nerve or blood vessel injury, deep venous thrombosis, pulmonary embolism, , paralysis, hip dislocation, leg length discrepancy (including requiring use of permanent shoe lift), bone fracture, component loosening or failure requiring re-operation or amputation. Informed consent was obtained and the patient was scheduled. We also discussed fixation strategies including cement and cementless fixation and modern alternative bearings including metal or ceramic with cross-linked polyethylene, [id number] and [id number] as well as advantages and disadvantages of each. We also discussed less invasive surgical approaches and reported benefits and risks of these approaches. The patient has been ordered: Office Visit on 04/27/23 CONSULT TO ORTHOPAEDICS Nasal Swab Culture CONSULTS: Patient does not require consults for optimization at this time. Total Joint Arthroplasty: Risk Calculator Bhakti Kirkpatrick has a 39.36% chance of NOT returning home at discharge for a Primary total Hip replacement. Bhakti's estimated Length of Stay is 2 days (Inpatient candidate). Bhakti's 30 day chance of readmission is 5.56%. Readmission Probability 5.56 % (within 30 days following surgery) Estimated LOS 2 days Discharge Disposition Probability D/C to Home 60.64 % D/C to SNF 39.36 % These calculations are based on the following factors: - 77 years of age - sex is not male - BMI of 42.03 kg/m2 - NarxCare score of 130 - 0 hospitalizations in the last 12 months - history of heart disease - history of diabetes - no history of COPD - history of anemia - preoperative ambulation: independent community distances - 3 step(s) to enter home - bed location is on the first floor - bath location is on the first floor - caregiver is consistent - home is not more than 150 miles away - PROMIS-10 Mental Health T score 20-40 - Marital status: Risk Factors for Total Hip Arthroplasty (LOR) Major Risk Factors Obesity High Risk High: BMI > 40 Moderate: BMI 30-40 Normal: BMI < 30 Diabetes Moderate Risk High: A1C > 8 Moderate: A1C 7-8 Normal: A1C < 7 Smoking normal High: Current smoker Normal: Non smoker Narcotics Use Moderate Risk High:NarxCare >=300 Moderate: 100-299 Normal: 0-99 Depression Moderate Risk High: PHQ-9 >14 Moderate: PHQ-9 5-14 Normal: PHQ-9 < 5 Area Deprivation Index (JEROME) High Risk High: JEROME Score > 75 Moderate: JEROME 50-75 Normal: JEROME < 50 Obesity: Weight management and obesity medicine (bariatric) program recommended BMI Readings from Last 3 Encounters: 04/05/23 : 42.03 kg/m 03/01/23 : 41.99 kg/m 02/21/23 : 41.80 kg/m Diabetes: Well controlled - Bhakti has been diagnosed with Type 2 Diabetes. Her last Hemoglobin A1C was 6.6 (01/31/2023). Pt is followed by Jesus Davila for Type 2 Diabetes - last seen on 02/21/2023. Area Deprivation Index (JEROME) JEROME Score 02/15/2022 01/31/2023 National Score 70 99 Patient Health Questionnaire (PHQ-9) PHQ-9 12/21/2022 02/21/2023 04/05/2023 PHQ-2 Score 0 1 1 PHQ-9 Score 7 - 9 (0-4) minimal depression, (5-9) mild depression, (10-14) moderate depression, (15-19) moderately severe depression, (20-27) severe depression Bone Density Risk Screen Bhakti Kirkpatrick is at risk for bone loss and has not had a bone densitometry scan in the last 2 years (date of last scan: None on file). Recommend a bone densitometry scan and if indicated on the bone density results, a consult to a bone health specialist (Rheumatology, Endocrinology, or Women's Health) for bone assessment. Risk Factors: Use of Furosemide Use of Proton Pump Inhibitors History of falls Dx of Chronic Kidney Disease (CKD) Prednisone or use of systemic steroids Chronic Malnutrition Additional Risk Factors Anemia Hemoglobin (g/dL) Date Value 08/29/2022 11.4 05/31/2021 10.9 06/30/2020 8.5 Chronic kidney disease eGFR, (no units) Date Value 08/21/2014 >60 08/19/2014 >60 eGFR- (no units) Date Value 06/30/2020 25 06/29/2020 22 Chronic kidney disease eGFR, (no units) Date Value 08/21/2014 >60 08/19/2014 >60 eGFR- (no units) Date Value 06/30/2020 25 06/29/2020 22 NarxCare score NARX Narcotics: 130 (04/27/2023 9:44 AM) Obstructive Sleep Apnea (ABDI) Malnutrition: No Malnutrition Screening Tool (MST) score on file- please complete the MST screening tool (click here to open) and refresh the note. ACTIVE PROBLEM LIST Edema Abdi Treated With Bipap Arteriosclerotic Heart Disease (Ashd) Hypertensive Heart Disease With Heart Failure and Stage 4 Chronic Kidney Disease (Hcc) Degenerative Arthritis of Knee Myalgia Hyperlipidemia (Hfpef) Heart Failure With Preserved Ejection Fraction (Hcc) Fatty Liver History of Thyroid Cancer Type 2 Diabetes Mellitus With Stage 4 Chronic Kidney Disease, With Long-Term Current Use of Insulin (Hcc) Depression, Recurrent (Hcc) Chronic Kidney Disease, Stage IV (Severe) (Hcc) S/P Laparoscopic Sleeve Gastrectomy Gerd Without Esophagitis Sensory Hearing Loss, Bilateral Class 3 Severe Obesity With Body Mass Index (Bmi) of 45.0 to 49.9 in Adult (Hcc) Type 2 Diabetes Mellitus With Diabetic Neuropathy, With Long-Term Current Use of Insulin (Hcc) Primary Osteoarthritis of Both Hips Vertigo Cognitive Impairment Circadian Rhythm Sleep Disorder, Irregular Sleep Wake Type Anemia Acute Gout Involving Toe of Right Foot Chronic Bronchitis (Hcc) SUBJECTIVE CHIEF COMPLAINT: Hip Pain HPI: Bhakti Kirkpatrick is a 77 year old patient with the presenting complaint of New of the Right Hip and New of the Left Hip. Bhakti Kirkpatrick has had progressive problems with the hip(s) constantly over the past 2 year(s) interfering with activities which include walking 2 blocks, rising from a sitting position, standing for prolonged periods of time, getting in and out of a car, and climbing stairs. The problem began limiting activities 1-3 years ago. Bhakti reports a current pain level of 9 (Hip-Left). She describes the pain as Aching, Radiating. The pain is Continuous, and has lasted for 2 Years. Interventions tried include Medication, Reposition, Relaxation. FALL RISK: Bhakti is at risk for falls. She has had either 2 falls in the last year or at least 1 fall with injury and/or is currently using an ambulatory assitive device (walker, cane, wheelchair, crutches, etc.) The following interventions were put in place to prevent falls this visit: Placed Falling Man Sign on Door FUNCTIONAL STATUS: Limited most or all of the time (uses scooter, mobility device) PREVIOUS TREATMENTS: Last hip-related PT visit: 08/28/2018 Past anti-inflammatory medications (not necessarily for this reason for visit): amitriptyline HCl, ibuprofen, ketorolac tromethamine, methylprednisolone REVIEW OF SYSTEMS: PAIN ASSESSMENT: See HPI. MUSCULOSKELETAL: See HPI. Malnutrition Screening Tool (MST) 06/20/2020 Lost Weight Recently Without Trying? If Yes, Amount of Weight Loss(lbs) 0:No Eating Poorly Because of a Decreased Appetite 1:Yes Weight Loss Score (Calculated) 0 Appetite Score (Calculated) 1 Total MST Score (Calculated) 1 PAST MEDICAL HISTORY Diagnosis Date (HFpEF) heart failure with preserved ejection fraction (HCC) 06/23/2015 Dr. 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) 02/06/2015 Coronary artery calcification seen on CAT scan 01/21/2013 Depressive disorder 03/31/2016 Diverticulosis 08/23/2010 Diverticulosis of colon (without mention of hemorrhage) Edema GERD without esophagitis 09/02/2019 Hearing loss HTN (hypertension) 08/12/2014 Hypertensive kidney disease with stage 3a chronic kidney disease (HCC) 08/12/2014 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) 06/30/2020 Ingrown toenail Morbid obesity (HCC) Obstructive sleep apnea CPAP Other and unspecified hyperlipidemia Other dyspnea and respiratory abnormality Palpitations Primary osteoarthritis of both hips 08/18/2020 Rosacea Symptomatic menopausal or female climacteric states 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 Type II or unspecified type diabetes mellitus without mention of complication, not stated as uncontrolled 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 07/10/2018 Unspecified intestinal obstruction 10/2018 PAST SURGICAL HISTORY Procedure Laterality Date APPENDECTOMY 05/20/2001 open ARTHRP KNE CONDYLE&PLATU MEDIAL&LAT COMPARTMENTS Left 08/18/2014 Knee replacement, total left ARTHRP KNE CONDYLE&PLATU MEDIAL&LAT COMPARTMENTS Right 06/12/2012 total right knee arthroplasty ; THYROIDECTOMY TOTAL OR COMPLETE Bilateral 12/15/2009 Papillary Ca CHOLECYSTECTOMY 05/20/2001 Cholecystectomy-lap COLONOSCOPY FLX DX W/COLLJ SPEC WHEN PFRMD 06/06/2004 COLONOSCOPY FLX DX W/COLLJ SPEC WHEN PFRMD 08/23/2010 EXCISION EXCESSIVE SKIN & SUBQ TISSUE OTHER AREA 01/17/2002 Abdominoplasty EXPLORATORY LAPAROTOMY, CELIOTOMY-SP 06/24/2020 Takedown of enteroprosthetic fistula.Small bowel resection anastosmosis. Removal infected mesh. Recurrent vental hernia repair. HIP ARTHROSCOPY W/SYNOVECTOMY Right 09/19/2021 exc.seroma; gluteus repair; rotium augmentation; trochanteric bursectomy, iliotibial band resection LAPAROCOPIC SLEEVE GASTRECTOMY 03/10/2019 Extensive laparoscopic lysis of adhesions. EGD. Lap. TAP block. LEFT HEART CATH,PERCUTANEOUS 09/13/2017 no significant CAD NEPHRECTOMY PARTIAL Right 03/1991 Right side for benign tumor, small lesion removed REPAIR FIRST ABDOMINAL WALL HERNIA 09/25/2005 7 times total RPR 1ST INCAL/VNT HERNIA INCARCERATED 06/11/2007 with mesh TOTAL ABDOMINAL HYSTERECT W/WO RMVL TUBE OVARY 05/20/2001 PER, for fibroids and BSO TOTAL HIP REPLACEMENT Right 10/20/2020 anterior minimally invasive right total hip FAMILY HISTORY Problem Relation Age of Onset COPD Mother at 64 yoa Ischemic Heart Disease Father Mi at 61 yoa GI Brother cirrhosis other (AAA rupture) Brother Lung cancer, 49 yoa Hypertension Sister 2 years younger Coronary Artery Disease Sister Stroke Sister Diabetes Sister Cancer Paternal Aunt Cervical cancer Diabetes Maternal Aunt Diabetes Paternal Aunt Diabetes Paternal Grandfather Heart Paternal Uncle other (parkinson) Son 41 Social History Tobacco Use Smoking status: Former Packs/day: 2.00 Years: 15.00 Additional pack years: 0.00 Total pack years: 30.00 Types: Cigarettes Quit date: 09/10/1991 Years since quittin.6 Smokeless tobacco: Never Vaping Use Vaping Use: Never used Substance Use Topics Alcohol use: No Drug use: No ALLERGIES: Adhesive Tape (Rosins), Crestor [Rosuvastatin Calcium], Lantus [Insulin Glargine], Nickel, Palladium, Pravastatin, and Toradol [Ketorolac] MEDICATIONS: insulin lispro (HUMALOG) 200 unit/mL (3 mL) injection take up to 165 units daily esomeprazole (NEXIUM) 40 mg capsule Take 1 capsule by mouth twice daily before meals. glucagon 3 mg/actuation nasal spray (BAQSIMI) Use 1 [place] in the nose as needed for low blood sugar. May repeat after 15 minutes using a new device if there is no response. gabapentin (NEURONTIN) 400 mg capsule Take 2 capsules by mouth daily at bedtime for 180 days. colchicine 0.6 mg tablet Take 2 tabs by mouth, followed by 1 tab one hour later for gout flare. May repeat in 1 week. gabapentin (NEURONTIN) 300 mg capsule Take 2 capsules by mouth every morning for 180 days. allopurinol (ZYLOPRIM) 300 mg tablet Take 1 tablet by mouth once daily. For gout. insulin aspart U-100 (NOVOLOG FLEXPEN U-100 INSULIN) 100 unit/mL (3 mL) 14 in AM, 14 at lunch, 14 at supper, 10 at bed, plus extra based on sugars, max daily dose 100 units plus sliding scale DULoxetine (CYMBALTA) 60 mg capsule Take 1 capsule by mouth once daily. esomeprazole (NEXIUM) 40 mg capsule Take 1 capsule by mouth twice daily before meals. memantine (NAMENDA) 10 mg tablet Take 1 tablet by mouth twice daily. insulin detemir U-100 (LEVEMIR FLEXTOUCH U-100 INSULIN) 100 unit/mL (3 mL) injection pen 40 units twice a day, adjust dose based on sugars, max daily dose 100 units Blood-Glucose Sensor (DEXCOM G7 SENSOR) claudia change every 10 days evolocumab (REPATHA SURECLICK) 140 mg/mL pen injector Inject 140 mg subcutaneously every 2 weeks. Per [facility]. diclofenac (VOLTAREN) 1 % topical gel Apply 4 g to affected area four times daily. metoprolol tartrate, short acting, (LOPRESSOR) 25 mg tablet Take 1 tablet by mouth twice daily. alpha lipoic acid 200 mg cap Take 1 capsule by mouth three times daily. For neuropathy. furosemide (LASIX) 40 mg tablet Take 1 tablet by mouth three times daily. Per Dr. Lilian Vance, nephrology. Blood-Glucose Transmitter (DEXCOM G6 TRANSMITTER) claudia change every 3 weeks levothyroxine (SYNTHROID) 175 mcg tablet 7 & 1/2 pills per week (one a day with extra half pill on Sunday) blood sugar diagnostic (ACCU-CHEK ANNALISE PLUS TEST STRP) test strip Use to check blood sugar 4 times daily nitroglycerin sublingual (NITROQUICK) 0.4 mg SL tablet Dissolve 1 tablet under the tongue as needed. FOR CHEST PAIN. IF NO RELIEF CALL 911 Insulin Wales, Disposable, (BD ULTRAFINE III MINI PEN) 31 gauge x 3/16 1 Each as directed. 6 times daily. Dx:E11.40. On multiple insulin doses. Lancets (ACCU-CHEK SOFTCLIX LANCETS) lancets Checking blood sugars 4 times daily. Dx: E11.42 CPAP Auto bilevel with humidity set as follows: IPAP max 24, EPAP min 8 and PS 4-6 cmH2O. Comfort settings TiMax 2.0, TiMin 0.3, Trigger -M, Cycle-M. Continue using ResMed N20 nasal mask interface. melatonin 10 mg ODT Take 1 tablet by mouth at bedtime as needed. docusate sodium (COLACE ORAL) Take by mouth. lactulose (DUPHALAC, CONSTULOSE) 10 gram/15 mL solution 30 mL q 24 HR. ferrous sulfate 325 mg (65 mg iron) tablet Take 325 mg by mouth twice daily with meals. BIPAP calcium citrate (CITRACAL ORAL) Take 2 tablets by mouth twice daily. multivit-min/iron/folic acid/K (BARIATRIC MULTIVITAMINS ORAL) Take by mouth. fluticasone (FLONASE) 50 mcg/actuation nasal spray Use 2 Sprays in each nostril once daily. COMPOUNDED PRESCRIPTION Initiate BiPAP @ 15/9 cm of water with humidification. Mask (per patient preference) optional chin strap (if indicated) , filters, tubing, humidifier and lifetime supplies. Dx. ABDI 327.23 polyethylene glycol 3350(MIRALAX 100 % ORAL POWDER) 17 grams/8 0z water daily ASA LOW DOSE 81MG TAB EC Take one(1) tablet daily. OBJECTIVE PHYSICAL EXAM LMP 06/27/2011 All other systems deferred. GENERAL: Obese HABITUS: Morbidly obese GAIT: Shuffling HIP EXAM: Left: ROM: Extension: full extension Flexion: 90 degrees Internal Rotation: 5 degrees External Rotation: 10 degrees Abduction: 15 degrees Adduction: 0 degrees Strength: Pain with resisted abduction and Pain with resisted hip flexion Palpation: No tenderness Log roll: painful. Straight leg raise: Positive, reproducing hip symptoms Neurovascular Status: Sensation Intact and Moves foot and ankle up & down DATA: Most recent hip imaging was completed on 04/27/2023 (XR HIP AP/FROG LAT W PELV RT) , 04/27/2023 (XR HIP AP/FROG LAT W PELV RT) . The last hip-related PT visit was completed on 08/28/2018. Diagnostic tests reviewed for today's visit: Left hip X-Ray: Severe degenerative changes The following conditions were addressed during the office visit today: Obesity - Weight management strategies were discussed including diet and exercise. A Consult to Weight Management will be completed to follow up on the plan of care. Diabetes - HgbA1C optimization - we discussed the importance of good glucose control for overall health and Total Joint Arthroplasty. SIGNATURE: Akilah Rowe PA-C PATIENT NAME: Bhakti Kirkpatrick DATE: April 27, 2023 TIME: 10:05 AM documented in this encounter [facility] 04-27-2023 History of Present illness Narrative Radiology Service Progress Note PATIENT NAME: Bhakti Kirkpatrick DATE OF SERVICE: April 27, 2023 TIME: 9:45 AM PATIENT IDENTITY VERIFICATION COMPLETED USING TWO (2) IDENTIFIERS: Name and Date of confirmed by patient verbally. FALL SCREENING: Has the patient had 2 falls in the last year or 1 fall with injury or currently using an Ambulatory Assistive Device (Walker, Cane, Wheelchair, Crutches, etc.)? Yes, Patient High Risk for Falls What interventions were put in place to prevent falls during this visit? Offered Assistance with Transfers/Clothing and Instructed Patient to Remain Seated (Not on Exam Table) Until Exam PATIENT GENDER DATA: Female. status: : No status: NO. PATIENT RELEVANT IMPLANT DATA REVIEWED: Not Applicable RADIOLOGY DEPARTMENT: General X-ray: Exam(s) Completed: Pelvis X-Ray: Pelvis with Hip Bilateral PERIPHERAL IV DATA: Not applicable SIGNED BY: RT Christelle(R) April 27, 2023 9:45 AM documented in this encounter [facility] 04-24-2023 Miscellaneous Notes Please see attach below and advise. Scan on 04/23/2023 5:26 PM by Provider, External, CAITLIN: Complaince Report Loraine Catalan LPN documented in this encounter [facility] 04-05-2023 History of Present illness Narrative Images from the original note were not included. [facility] [place] Follow-up Visit Follow-up note April 05, 2023 HPI: Ms. Kirkpatrick presents today for a follow-up visit. Per her previous visit with Dr. Pena on 12/22/22: ASSESSMENT/PLAN: 1. Dementia without behavioral disturbance, psychotic disturbance, mood disturbance, or anxiety, unspecified dementia severity, unspecified dementia type (HCC) - ICD9: 294.20, ICD10: F03.90 (primary diagnosis) Subjectively feels she is doing well on Namenda 5mg BID. However, obvious deficits on exam including MOCA as above that would suggest need to increase dose. Also cognition is impairing daily activities, including feeling not safe for pt to drive (no longer driving). Discussed with pt and her and will increase Namenda to 10mg BID. SE and ADRs reviewed with pt and . Note will titrate up by 5mg weekly to goal dose of 10mg BID. Encouraged brain exercises. 2. ABDI on CPAP - ICD9: 327.23, V46.8, ICD10: G47.33, Z99.89 Lack of PAP use in setting of known ABDI may be contributing to cognitive complaints. Encouraged pt to restart PAP LILIBETH. Discussed with patient: the physiology of OSAS, medical conditions associated with OSAS (DM, HTN, CAD, Depression, Stroke, Headache...) and treatment options (UPPP, Dental appliances, CPAP...). Advised patient to avoid activities that could harm self or others when tired/sleepy, including driving and/or operating heavy machinery. Encouraged weight loss, and continued compliance with other medications. Discussed with pt need to clean equipment regularly and replace equipment regularly as well. Advised pt to notify us after using PAP for 2 weeks so that we can obtain PAP data download to determine if changes in PAP settings necessary. States she went to see ENT who told her her BiPAP would make her worse. Her states he told her it could dry out her airway. States she has a dry throat with the BiPAP. Uses nasal saline. Sleeps in recliner as she has difficulty getting in and out of ed. The hose can pull on the mask when she changes position. Thick mucous. Has allergies and ENT feels this is the cause. Naps frequently during the day. Has periods where memory is ok. Sometimes has to ask her what something is. Her notes she more frequently searches for a word. Less able to find words to describe a word she is trying to find. Not driving. No hallucinations. Can talk in her sleep. Not yelling out in her sleep. Did fall out of bed once a few years ago. Not wandering at night. Occasional tremor when eating on R. Taking Namenda 10mg BID without SE. Modified MOCA: Immediate recall: 4/5 and 01/12 Number repeat: 2/2 Sentence repeat: 2/2 Serial 7s: 2/3 Similar objects: incorrect watch and ruler 09/11 Orientation: 04/05/2023, Wed (?), Biden, Isaiah. 01/13 Namin/3 Delayed recall: matthew/red correct with clue 10/15 Clock Drawin/3 *PAP download reviewed. Worn for days for an average of 5 hours and 10 minutes. Settings min 8/max 24cm H2O. AHI of 3.8. Leak 95th percentile 45.4. PAST MEDICAL HISTORY Diagnosis Date (HFpEF) heart failure with preserved ejection fraction (HCC) 06/23/2015 Dr. 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) 02/06/2015 Coronary artery calcification seen on CAT scan 01/21/2013 Depressive disorder 03/31/2016 Diverticulosis 08/23/2010 Diverticulosis of colon (without mention of hemorrhage) Edema GERD without esophagitis 09/02/2019 Hearing loss HTN (hypertension) 08/12/2014 Hypertensive kidney disease with stage 3a chronic kidney disease (HCC) 08/12/2014 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) 06/30/2020 Ingrown toenail Morbid obesity (HCC) Obstructive sleep apnea CPAP Other and unspecified hyperlipidemia Other dyspnea and respiratory abnormality Palpitations Primary osteoarthritis of both hips 08/18/2020 Rosacea Symptomatic menopausal or female climacteric states 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 Type II or unspecified type diabetes mellitus without mention of complication, not stated as uncontrolled 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 07/10/2018 Unspecified intestinal obstruction 10/2018 PAST SURGICAL HISTORY Procedure Laterality Date APPENDECTOMY 05/20/2001 open ARTHRP KNE CONDYLE&PLATU MEDIAL&LAT COMPARTMENTS Left 08/18/2014 Knee replacement, total left ARTHRP KNE CONDYLE&PLATU MEDIAL&LAT COMPARTMENTS Right 06/12/2012 total right knee arthroplasty ; THYROIDECTOMY TOTAL OR COMPLETE Bilateral 12/15/2009 Papillary Ca CHOLECYSTECTOMY 05/20/2001 Cholecystectomy-lap COLONOSCOPY FLX DX W/COLLJ SPEC WHEN PFRMD 06/06/2004 COLONOSCOPY FLX DX W/COLLJ SPEC WHEN PFRMD 08/23/2010 EXCISION EXCESSIVE SKIN & SUBQ TISSUE OTHER AREA 01/17/2002 Abdominoplasty EXPLORATORY LAPAROTOMY, CELIOTOMY-SP 06/24/2020 Takedown of enteroprosthetic fistula.Small bowel resection anastosmosis. Removal infected mesh. Recurrent vental hernia repair. HIP ARTHROSCOPY W/SYNOVECTOMY Right 09/19/2021 exc.seroma; gluteus repair; rotium augmentation; trochanteric bursectomy, iliotibial band resection LAPAROCOPIC SLEEVE GASTRECTOMY 03/10/2019 Extensive laparoscopic lysis of adhesions. EGD. Lap. TAP block. LEFT HEART CATH,PERCUTANEOUS 09/13/2017 no significant CAD NEPHRECTOMY PARTIAL Right 03/1991 Right side for benign tumor, small lesion removed REPAIR FIRST ABDOMINAL WALL HERNIA 09/25/2005 7 times total RPR 1ST INCAL/VNT HERNIA INCARCERATED 06/11/2007 with mesh TOTAL ABDOMINAL HYSTERECT W/WO RMVL TUBE OVARY 05/20/2001 [facility], for fibroids and BSO TOTAL HIP REPLACEMENT Right 10/20/2020 anterior minimally invasive right total hip Current Outpatient Medications on File Prior to Visit Medication Sig insulin lispro (HUMALOG) 200 unit/mL (3 mL) injection take up to 165 units daily sucralfate (CARAFATE) 1 gram tablet Take 1 tablet by mouth twice daily before meals. esomeprazole (NEXIUM) 40 mg capsule Take 1 capsule by mouth twice daily before meals. glucagon 3 mg/actuation nasal spray (BAQSIMI) Use 1 [place] in the nose as needed for low blood sugar. May repeat after 15 minutes using a new device if there is no response. gabapentin (NEURONTIN) 400 mg capsule Take 2 capsules by mouth daily at bedtime for 180 days. colchicine 0.6 mg tablet Take 2 tabs by mouth, followed by 1 tab one hour later for gout flare. May repeat in 1 week. gabapentin (NEURONTIN) 300 mg capsule Take 2 capsules by mouth every morning for 180 days. allopurinol (ZYLOPRIM) 300 mg tablet Take 1 tablet by mouth once daily. For gout. insulin aspart U-100 (NOVOLOG FLEXPEN U-100 INSULIN) 100 unit/mL (3 mL) 14 in AM, 14 at lunch, 14 at supper, 10 at bed, plus extra based on sugars, max daily dose 100 units plus sliding scale DULoxetine (CYMBALTA) 60 mg capsule Take 1 capsule by mouth once daily. esomeprazole (NEXIUM) 40 mg capsule Take 1 capsule by mouth twice daily before meals. memantine (NAMENDA) 10 mg tablet Take 1 tablet by mouth twice daily. insulin detemir U-100 (LEVEMIR FLEXTOUCH U-100 INSULIN) 100 unit/mL (3 mL) injection pen 40 units twice a day, adjust dose based on sugars, max daily dose 100 units Blood-Glucose Sensor (Histros G7 SENSOR) claudia change every 10 days evolocumab (REPATHMonty TAVERAS) 140 mg/mL pen injector Inject 140 mg subcutaneously every 2 weeks. Per [facility]. diclofenac (VOLTAREN) 1 % topical gel Apply 4 g to affected area four times daily. metoprolol tartrate, short acting, (LOPRESSOR) 25 mg tablet Take 1 tablet by mouth twice daily. alpha lipoic acid 200 mg cap Take 1 capsule by mouth three times daily. For neuropathy. furosemide (LASIX) 40 mg tablet Take 1 tablet by mouth three times daily. Per Dr. Lilian Vance, nephrology. Blood-Glucose Transmitter (DEXCOM G6 TRANSMITTER) claudia change every 3 weeks levothyroxine (SYNTHROID) 175 mcg tablet 7 & 1/2 pills per week (one a day with extra half pill on Sunday) blood sugar diagnostic (ACCU-CHEK ANNALISE PLUS TEST STRP) test strip Use to check blood sugar 4 times daily nitroglycerin sublingual (NITROQUICK) 0.4 mg SL tablet Dissolve 1 tablet under the tongue as needed. FOR CHEST PAIN. IF NO RELIEF CALL 911 Insulin [place], Disposable, (BD ULTRAFINE III MINI PEN) 31 gauge x 3/16 1 Each as directed. 6 times daily. Dx:E11.40. On multiple insulin doses. Lancets (ACCU-CHEK SOFTCLIX LANCETS) lancets Checking blood sugars 4 times daily. Dx: E11.42 CPAP Auto bilevel with humidity set as follows: IPAP max 24, EPAP min 8 and PS 4-6 cmH2O. Comfort settings TiMax 2.0, TiMin 0.3, Trigger -M, Cycle-M. Continue using ResMed N20 nasal mask interface. melatonin 10 mg ODT Take 1 tablet by mouth at bedtime as needed. docusate sodium (COLACE ORAL) Take by mouth. lactulose (DUPHALAC, CONSTULOSE) 10 gram/15 mL solution 30 mL q 24 HR. ferrous sulfate 325 mg (65 mg iron) tablet Take 325 mg by mouth twice daily with meals. BIPAP calcium citrate (CITRACAL ORAL) Take 2 tablets by mouth twice daily. multivit-min/iron/folic acid/K (BARIATRIC MULTIVITAMINS ORAL) Take by mouth. fluticasone (FLONASE) 50 mcg/actuation nasal spray Use 2 Sprays in each nostril once daily. COMPOUNDED PRESCRIPTION Initiate BiPAP @ 15/9 cm of water with humidification. Mask (per patient preference) optional chin strap (if indicated) , filters, tubing, humidifier and lifetime supplies. Dx. ABDI 327.23 polyethylene glycol 3350(MIRALAX 100 % ORAL POWDER) 17 grams/8 0z water daily ASA LOW DOSE 81MG TAB EC Take one(1) tablet daily. No current facility-administered medications on file prior to visit. Social History Tobacco Use Smoking status: Former Packs/day: 2.00 Years: 15.00 Total pack years: 30.00 Types: Cigarettes Quit date: 09/10/1991 Years since quittin.5 Smokeless tobacco: Never Vaping Use Vaping Use: Never used Substance Use Topics Alcohol use: No Drug use: No ALLERGIES Allergen Reactions Adhesive Tape (Jamila* Other: See Comments Contact celluitis Crestor [Rosuvastat* Intolerance Lantus [Insulin Gla* Intolerance burning at local injection site Nickel Rash in jewelry; also Palladium which cross reacts with nickel in some cases. Palladium Rash Pravastatin Intolerance Muscle cramps Toradol [Ketorolac] Hives Review of Systems: See HPI. Physical Exam: 04/05/23 1349 BP: 142/68 Pulse: 86 Resp: 20 SpO2: 94% Weight: 97.6 kg (215 lb 3.2 oz) Patient is alert and in no distress. Dress is appropriate. Mood is appropriate Breathing appears regular and unstressed Neurologic examination: Modified MOCA above. CN: Pupils equal and reactive to light, extraocular movements intact with no nystagmus, face is symmetric with no facial droop, hearing intact bilaterally, symmetric evaluation of the soft palate, tongue is midline with no deviation, shoulder shrug is symmetric. Motor exam shows 5/5 strength symmetric through the upper and lower extremities in all groups tested. Sensory intact to light touch and temperature in all extremities. Vibratory sensation is intact and symmetric all extremities. Deep tendon reflexes are symmetric at the biceps, brachioradialis and decreased at patella, and achilles bilaterally. Coordination: No dysmetria on finger to nose. No tremors noted. No drift seen. Gait normal in stance and pattern. Labs/studies: Component Latest Ref Rng & Units 01/05/2023 01/31/2023 02/21/2023 Glucose 74 - 99 mg/dL 208 (H) BUN 7 - 21 mg/dL 21 Creatinine 0.58 - 0.96 mg/dL 1.10 (H) Sodium 136 - 144 mmol/L 140 Potassium 3.7 - 5.1 mmol/L 3.9 Chloride 97 - 105 mmol/L 99 CO2 22 - 30 mmol/L 30 Anion Gap 9 - 18 mmol/L 11 Calcium 8.5 - 10.2 mg/dL 9.8 eGFR >=60 mL/min/1.73m 53 (L) Cholesterol, Total <200 mg/dL 137 Triglyceride <150 mg/dL 319 (H) HDL Cholesterol >39 mg/dL 39 (L) Non HDL Cholesterol <130 mg/dL 98 Fasting Time hrs 10 VLDL Cholesterol <30 mg/dL 64 (H) TC:HDL Ratio <5.10 3.51 LDL Cholesterol <100 mg/dL 34 LDL:HDL Ratio <2.54 0.87 Creatinine, Ur Random (UCRR) 20.0 - 300.0 mg/dL 128.1 Albumin, Urine Random mg/L 62.6 Albumin/Creat Ratio <30 mg/g 49 (H) TSH 0.270 - 4.200 mIU/L 0.976 Hemoglobin A1C (POCT) 4.2 - 5.6 % 6.6 (A) Assessment/Plan: F03.90 Dementia without behavioral disturbance, psychotic disturbance, mood disturbance, or anxiety, unspecified dementia severity, unspecified dementia type (HCC) (primary encounter diagnosis) Comment: Pt subjectively doing well. Modified MOCA completed today in office and essentially unchanged since time of previous appointment (slight improvement noted). She is currently taking Namenda 10mg BID without SE or concerns. She continues to refrain from driving and denies mood changes or hallucinations. Will continue Namenda as previously prescribed. Patient and to notify office of changes in roughly two weeks. Recommend completing mentally stimulating activities for brain exercise (i.e. crossword puzzles, social interactions...) as well as regular physical exercise within patient limitations. G47.33 ABDI (obstructive sleep apnea) Comment: Per download and pt report, pt has used PAP seven out of the last 90 days. She reports difficulty breathing due to increased mucous, now felt to be secondary to allergies after recent ENT consult. Discussed importance of compliance as well as impact on memory concerns in addition to increased risk of stroke, cardiac dz, htn, etc. She is agreeable to begin using PAP regularly and will notify the office after two weeks of regular use so that download can be obtained to evaluate if changes to settings is needed. Encouraged PAP compliance. Recommend continuing to clean and replace equipment regularly. Belinda Clark, ELEVATOR INSTALLER.[employer] I spent a total of 38 minutes on the date of the service which included preparing to see the patient, [id number] patient care, completing clinical documentation, obtaining and/or reviewing separately obtained history, performing a medically appropriate examination, and counseling and educating the patient/family/caregiver. documented in this encounter [facility] 04-05-2023 Miscellaneous Notes Cert of medical necessity sent from [facility] placed in Dr. Best's folder for signature. documented in this encounter [facility] 04-04-2023 History of Present illness Narrative [facility] Telephonic Outreach Provider Action/FYI Contacted for: Routine Telephonic Outreach Contact made with patient: Yes Patient identified by name and date of . Discussed care with spouse Are you experiencing any new or worsening symptoms you need to talk about today? No Disease Specific Do you check your blood pressure at home? No Do you have new or worsening shortness of breath with activity? No Do you have new or worsening trouble breathing while lying flat? No Do you have new or worsening swelling of legs, feet or ankles? No Do you feel like you are dehydrated for any reason, including not being able to eat or drink normally, or having less urine/much darker urine than normal for you? No Do you check your daily weight at home? Yes, Have you noticed a sudden gain in weight greater than three pounds in a day or three pounds in a week? No Based on manager of selection and assessment, the following disposition is advised: No symptoms or symptoms present, not severe. Routed to: No Action Needed IVAN Education Provided this Outreach: No Catherine Pompa RN April 04, 2023 4:13 PM Care Coordination next call- Last CDM outreach contact: 04/04- no new concerns. Just returned from [facility] Baseline: 12/08/22 ADL, FALL, GOAL due: 08/16/23 . Chronic disease goal - 02/02/23 -chf/ckd SDOH transportation and food insecurity completed: 02/02/23 [facility] Telephonic Outreach Provider Action/FYI Contacted for: Routine Telephonic Outreach Contact made with patient: No, left message. Catherine Pompa RN April 04, 2023 2:26 PM Care Coordination next call- lvm x1 Last CD outreach contact: 03/06- no new concerns. Per spouse dementia worsening. Cant dress herself, cant prepare a meal, doesn't remember her medications Baseline: 12/08/22 ADL, FALL, GOAL due: 08/16/23 . Chronic disease goal - 02/02/23 -chf/ckd SDOH transportation and food insecurity completed: 02/02/23 documented in this encounter [facility] 03-06-2023 History of Present illness Narrative [facility] Telephonic Outreach Provider Action/FYI Contacted for: Routine Telephonic Outreach Contact made with patient: Yes Patient identified by name and date of . Discussed care with spouse Are you experiencing any new or worsening symptoms you need to talk about today? No Disease Specific Do you check your blood pressure at home? Yes, Enter readings: no reading Do you have new or worsening shortness of breath with activity? No Do you have new or worsening trouble breathing while lying flat? No Do you have new or worsening swelling of legs, feet or ankles? No Do you feel like you are dehydrated for any reason, including not being able to eat or drink normally, or having less urine/much darker urine than normal for you? No Do you check your daily weight at home? Yes, Have you noticed a sudden gain in weight greater than three pounds in a day or three pounds in a week? No Based on manager of selection and assessment, the following disposition is advised: No symptoms or symptoms present, not severe. Routed to: No Action Needed IVAN Education Provided this Outreach: No Catherine Pompa RN March 06, 2023 4:18 PM Care Coordination next call- Last CD outreach contact: 02/02 - no new concerns. Dementia worsening. Cant dress herself, cant prepare a meal, doesn't remember her medications Baseline: 12/08/22 ADL, FALL, GOAL due: 08/16/23 . Chronic disease goal - 02/02/23 -chf/ckd SDOH transportation and food insecurity completed: 02/02/23 documented in this encounter [facility] 03-06-2023 Miscellaneous Notes Attempted to call pt. 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 Catherine Pompa RN March 02, 2023 5:01 PM Care Coordination next call- lvm x 1 Last CDM outreach contact: 02/02 - no new concerns. Recovering from a cough. (pneumonia?) Received antibiotics. Feeling better, wt 216 lbs Baseline: 12/08/22 ADL, FALL, GOAL due: 08/16/23 . Chronic disease goal - 02/02/23 -chf/ckd SDOH transportation and food insecurity completed: 02/02/23 documented in this encounter [facility] 03-01-2023 Nurse Note POST OP LEARNING RESPONSE INSTRUCTION PROVIDED TO: Patient METHOD OF INSTRUCTION: Written instruction - handouts Verbal instruction PATIENT / FAMILY RESPONSE: Verbalizes understanding of: POST-PROCEDURE INSTRUCTIONS-Correct actions to take to reduce post procedure complications FOLLOW-UP PLAN: Patient instructed to call with any further issues SUPPLEMENTAL MATERIAL: None REFERRAL (RECOMMENDATION): None Electronically Signed By: Nemo Kumar RN In Department: AMBULATORY SURGERY [facility] 03-01-2023 Nurse Note POST OP LEARNING RESPONSE INSTRUCTION PROVIDED TO: Patient METHOD OF INSTRUCTION: Written instruction - handouts Verbal instruction PATIENT / FAMILY RESPONSE: Verbalizes understanding of: POST-PROCEDURE INSTRUCTIONS-Correct actions to take to reduce post procedure complications FOLLOW-UP PLAN: Patient instructed to call with any further issues SUPPLEMENTAL MATERIAL: None REFERRAL (RECOMMENDATION): None Electronically Signed By: Nemo Kumar RN In Department: AMBULATORY SURGERY PRE OP LEARNING ASSESSMENT PROCEDURE/SURGERY: GI PROCEDURES: EGD READINESS TO LEARN COGNITIVE ABILITY: Alert and oriented MOTIVATION TO LEARN: Eager FAMILY SUPPORT: High - Very involved in pt care PATIENT LEARNS BEST BY: Written Instruction - Hand-outs FACTORS AFFECTING LEARNING: None PHYSICAL LIMITATIONS AFFECTING LEARNING: None Electronically Signed By: Kristina Crabtree RN In Department: AMBULATORY SURGERY documented in this encounter [facility] 03-01-2023 History and physical note SEDATION HISTORY AND PHYSICAL EXAM SERVICE DATE: 03/01/2023 SERVICE TIME: 1:36 PM Subjective HPI: This is a 77 year old female who presents with GERD, dysphagia PAST ANESTHESIA HISTORY: No history of adverse event PAST MEDICAL HISTORY Diagnosis Date (HFpEF) heart failure with preserved ejection fraction (HCC) 06/23/2015 Dr. 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) 02/06/2015 Coronary artery calcification seen on CAT scan 01/21/2013 Depressive disorder 03/31/2016 Diverticulosis 08/23/2010 Diverticulosis of colon (without mention of hemorrhage) Edema GERD without esophagitis 09/02/2019 Hearing loss HTN (hypertension) 08/12/2014 Hypertensive kidney disease with stage 3a chronic kidney disease (HCC) 08/12/2014 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) 06/30/2020 Ingrown toenail Morbid obesity (HCC) Obstructive sleep apnea CPAP Other and unspecified hyperlipidemia Other dyspnea and respiratory abnormality Palpitations Primary osteoarthritis of both hips 08/18/2020 Rosacea Symptomatic menopausal or female climacteric states 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 Type II or unspecified type diabetes mellitus without mention of complication, not stated as uncontrolled 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 07/10/2018 Unspecified intestinal obstruction 10/2018 PAST SURGICAL HISTORY Procedure Laterality Date APPENDECTOMY 05/20/2001 open ARTHRP KNE CONDYLE&PLATU MEDIAL&LAT COMPARTMENTS Left 08/18/2014 Knee replacement, total left ARTHRP KNE CONDYLE&PLATU MEDIAL&LAT COMPARTMENTS Right 06/12/2012 total right knee arthroplasty ; THYROIDECTOMY TOTAL OR COMPLETE Bilateral 12/15/2009 Papillary Ca CHOLECYSTECTOMY 05/20/2001 Cholecystectomy-lap COLONOSCOPY FLX DX W/COLLJ SPEC WHEN PFRMD 06/06/2004 COLONOSCOPY FLX DX W/COLLJ SPEC WHEN PFRMD 08/23/2010 EXCISION EXCESSIVE SKIN & SUBQ TISSUE OTHER AREA 01/17/2002 Abdominoplasty EXPLORATORY LAPAROTOMY, CELIOTOMY-SP 06/24/2020 Takedown of enteroprosthetic fistula.Small bowel resection anastosmosis. Removal infected mesh. Recurrent vental hernia repair. HIP ARTHROSCOPY W/SYNOVECTOMY Right 09/19/2021 exc.seroma; gluteus repair; rotium augmentation; trochanteric bursectomy, iliotibial band resection LAPAROCOPIC SLEEVE GASTRECTOMY 03/10/2019 Extensive laparoscopic lysis of adhesions. EGD. Lap. TAP block. LEFT HEART CATH,PERCUTANEOUS 09/13/2017 no significant CAD NEPHRECTOMY PARTIAL Right 03/1991 Right side for benign tumor, small lesion removed REPAIR FIRST ABDOMINAL WALL HERNIA 09/25/2005 7 times total RPR 1ST INCAL/VNT HERNIA INCARCERATED 06/11/2007 with mesh TOTAL ABDOMINAL HYSTERECT W/WO RMVL TUBE OVARY 05/20/2001 PER, for fibroids and BSO TOTAL HIP REPLACEMENT Right 10/20/2020 anterior minimally invasive right total hip Prior to Admission medications as of 03/01/23 1249 Medication Sig Last Dose Taking insulin lispro (HUMALOG) 200 unit/mL (3 mL) injection take up to 165 units daily 02/28/2023 Yes colchicine 0.6 mg tablet Take 2 tabs by mouth, followed by 1 tab one hour later for gout flare. May repeat in 1 week. Unknown Yes gabapentin (NEURONTIN) 300 mg capsule Take 2 capsules by mouth every morning for 180 days. 02/28/2023 Yes allopurinol (ZYLOPRIM) 300 mg tablet Take 1 tablet by mouth once daily. For gout. 02/28/2023 Yes insulin aspart U-100 (NOVOLOG FLEXPEN U-100 INSULIN) 100 unit/mL (3 mL) 14 in AM, 14 at lunch, 14 at supper, 10 at bed, plus extra based on sugars, max daily dose 100 units plus sliding scale 02/28/2023 Yes DULoxetine (CYMBALTA) 60 mg capsule Take 1 capsule by mouth once daily. 02/28/2023 Yes memantine (NAMENDA) 10 mg tablet Take 1 tablet by mouth twice daily. 02/28/2023 Yes insulin detemir U-100 (LEVEMIR FLEXTOUCH U-100 INSULIN) 100 unit/mL (3 mL) injection pen 40 units twice a day, adjust dose based on sugars, max daily dose 100 units 02/28/2023 Yes metoprolol tartrate, short acting, (LOPRESSOR) 25 mg tablet Take 1 tablet by mouth twice daily. 03/01/2023 Yes alpha lipoic acid 200 mg cap Take 1 capsule by mouth three times daily. For neuropathy. 02/28/2023 Yes furosemide (LASIX) 40 mg tablet Take 1 tablet by mouth three times daily. Per Dr. Lilian Vance, nephrology. 02/28/2023 Yes levothyroxine (SYNTHROID) 175 mcg tablet 7 & 1/2 pills per week (one a day with extra half pill on Sunday) 02/28/2023 Yes melatonin 10 mg ODT Take 1 tablet by mouth at bedtime as needed. 02/28/2023 Yes docusate sodium (COLACE ORAL) Take by mouth. 02/28/2023 Yes lactulose (DUPHALAC, CONSTULOSE) 10 gram/15 mL solution 30 mL q 24 HR. 02/28/2023 Yes ferrous sulfate 325 mg (65 mg iron) tablet Take 325 mg by mouth twice daily with meals. Past Week Yes calcium citrate (CITRACAL ORAL) Take 2 tablets by mouth twice daily. 02/28/2023 Yes multivit-min/iron/folic acid/K (BARIATRIC MULTIVITAMINS ORAL) Take by mouth. 02/28/2023 Yes fluticasone (FLONASE) 50 mcg/actuation nasal spray Use 2 Sprays in each nostril once daily. Unknown Yes polyethylene glycol 3350(MIRALAX 100 % ORAL POWDER) 17 grams/8 0z water daily 02/28/2023 Yes ASA LOW DOSE 81MG TAB EC Take one(1) tablet daily. 03/01/2023 Yes glucagon 3 mg/actuation nasal spray (BAQSIMI) Use 1 [place] in the nose as needed for low blood sugar. May repeat after 15 minutes using a new device if there is no response. gabapentin (NEURONTIN) 400 mg capsule Take 2 capsules by mouth daily at bedtime for 180 days. esomeprazole (NEXIUM) 40 mg capsule Take 1 capsule by mouth twice daily before meals. Blood-Glucose Sensor (Histros G7 SENSOR) claudia change every 10 days evolocumab (REPATHA SURECLICK) 140 mg/mL pen injector Inject 140 mg subcutaneously every 2 weeks. Per [facility]. Unknown diclofenac (VOLTAREN) 1 % topical gel Apply 4 g to affected area four times daily. Unknown Blood-Glucose Transmitter (Histros G6 TRANSMITTER) claudia change every 3 weeks blood sugar diagnostic (ACCU-CHEK ANNALISE PLUS TEST STRP) test strip Use to check blood sugar 4 times daily nitroglycerin sublingual (NITROQUICK) 0.4 mg SL tablet Dissolve 1 tablet under the tongue as needed. FOR CHEST PAIN. IF NO RELIEF CALL 911 Insulin [place], Disposable, (BD ULTRAFINE III MINI PEN) 31 gauge x 3/16 1 Each as directed. 6 times daily. Dx:E11.40. On multiple insulin doses. Lancets (ACCU-CHEK SOFTCLIX LANCETS) lancets Checking blood sugars 4 times daily. Dx: E11.42 CPAP Auto bilevel with humidity set as follows: IPAP max 24, EPAP min 8 and PS 4-6 cmH2O. Comfort settings TiMax 2.0, TiMin 0.3, Trigger -M, Cycle-M. Continue using ResMed N20 nasal mask interface. BIPAP COMPOUNDED PRESCRIPTION Initiate BiPAP @ 15/9 cm of water with humidification. Mask (per patient preference) optional chin strap (if indicated) , filters, tubing, humidifier and lifetime supplies. Dx. ABDI 327.23 ALLERGIES Allergen Reactions Adhesive Tape (Jamila* Other: See Comments Contact celluitis Crestor [Rosuvastat* Intolerance Lantus [Insulin Gla* Intolerance burning at local injection site Nickel Rash in jewelry; also Palladium which cross reacts with nickel in some cases. Palladium Rash Pravastatin Intolerance Muscle cramps Toradol [Ketorolac] Hives Objective PHYSICAL EXAM: The remainder of the physical exam is noncontributory. AIRWAY: Airway Visualization of Uvula: Yes Mouth opening greater than 2 fingerbreadths: Yes Neck Full Range of Motion: Yes LUNGS: Lungs clear to auscultation CARDIAC: Regular rhythm,Regular rate Assessment/Plan ASA Class: ASA Class:: Patient with severe systemic disease Active Problems: GERD Dysphagia Provisional Diagnosis/Treatment Plan: EGD with dilation Procedure was discussed with the patient including risks of oversedation, bleeding, and perforation. Patient agreed to proceed. SEDATION GOAL: Anesthesia SIGNATURE: Jay Deleon MD PATIENT NAME: Bhakti Kirkpatrick DATE: March 01, 2023 TIME: 1:36 PM [facility] 03-01-2023 History and physical note SEDATION HISTORY AND PHYSICAL EXAM SERVICE DATE: 03/01/2023 SERVICE TIME: 1:36 PM Subjective HPI: This is a 77 year old female who presents with GERD, dysphagia PAST ANESTHESIA HISTORY: No history of adverse event PAST MEDICAL HISTORY Diagnosis Date (HFpEF) heart failure with preserved ejection fraction (HCC) 06/23/2015 Dr. 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) 02/06/2015 Coronary artery calcification seen on CAT scan 01/21/2013 Depressive disorder 03/31/2016 Diverticulosis 08/23/2010 Diverticulosis of colon (without mention of hemorrhage) Edema GERD without esophagitis 09/02/2019 Hearing loss HTN (hypertension) 08/12/2014 Hypertensive kidney disease with stage 3a chronic kidney disease (HCC) 08/12/2014 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) 06/30/2020 Ingrown toenail Morbid obesity (HCC) Obstructive sleep apnea CPAP Other and unspecified hyperlipidemia Other dyspnea and respiratory abnormality Palpitations Primary osteoarthritis of both hips 08/18/2020 Rosacea Symptomatic menopausal or female climacteric states 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 Type II or unspecified type diabetes mellitus without mention of complication, not stated as uncontrolled 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 07/10/2018 Unspecified intestinal obstruction 10/2018 PAST SURGICAL HISTORY Procedure Laterality Date APPENDECTOMY 05/20/2001 open ARTHRP KNE CONDYLE&PLATU MEDIAL&LAT COMPARTMENTS Left 08/18/2014 Knee replacement, total left ARTHRP KNE CONDYLE&PLATU MEDIAL&LAT COMPARTMENTS Right 06/12/2012 total right knee arthroplasty ; THYROIDECTOMY TOTAL OR COMPLETE Bilateral 12/15/2009 Papillary Ca CHOLECYSTECTOMY 05/20/2001 Cholecystectomy-lap COLONOSCOPY FLX DX W/COLLJ SPEC WHEN PFRMD 06/06/2004 COLONOSCOPY FLX DX W/COLLJ SPEC WHEN PFRMD 08/23/2010 EXCISION EXCESSIVE SKIN & SUBQ TISSUE OTHER AREA 01/17/2002 Abdominoplasty EXPLORATORY LAPAROTOMY, CELIOTOMY-SP 06/24/2020 Takedown of enteroprosthetic fistula.Small bowel resection anastosmosis. Removal infected mesh. Recurrent vental hernia repair. HIP ARTHROSCOPY W/SYNOVECTOMY Right 09/19/2021 exc.seroma; gluteus repair; rotium augmentation; trochanteric bursectomy, iliotibial band resection LAPAROCOPIC SLEEVE GASTRECTOMY 03/10/2019 Extensive laparoscopic lysis of adhesions. EGD. Lap. TAP block. LEFT HEART CATH,PERCUTANEOUS 09/13/2017 no significant CAD NEPHRECTOMY PARTIAL Right 03/1991 Right side for benign tumor, small lesion removed REPAIR FIRST ABDOMINAL WALL HERNIA 09/25/2005 7 times total RPR 1ST INCAL/VNT HERNIA INCARCERATED 06/11/2007 with mesh TOTAL ABDOMINAL HYSTERECT W/WO RMVL TUBE OVARY 05/20/2001 PER, for fibroids and BSO TOTAL HIP REPLACEMENT Right 10/20/2020 anterior minimally invasive right total hip Prior to Admission medications as of 03/01/23 1249 Medication Sig Last Dose Taking insulin lispro (HUMALOG) 200 unit/mL (3 mL) injection take up to 165 units daily 02/28/2023 Yes colchicine 0.6 mg tablet Take 2 tabs by mouth, followed by 1 tab one hour later for gout flare. May repeat in 1 week. Unknown Yes gabapentin (NEURONTIN) 300 mg capsule Take 2 capsules by mouth every morning for 180 days. 02/28/2023 Yes allopurinol (ZYLOPRIM) 300 mg tablet Take 1 tablet by mouth once daily. For gout. 02/28/2023 Yes insulin aspart U-100 (NOVOLOG FLEXPEN U-100 INSULIN) 100 unit/mL (3 mL) 14 in AM, 14 at lunch, 14 at supper, 10 at bed, plus extra based on sugars, max daily dose 100 units plus sliding scale 02/28/2023 Yes DULoxetine (CYMBALTA) 60 mg capsule Take 1 capsule by mouth once daily. 02/28/2023 Yes memantine (NAMENDA) 10 mg tablet Take 1 tablet by mouth twice daily. 02/28/2023 Yes insulin detemir U-100 (LEVEMIR FLEXTOUCH U-100 INSULIN) 100 unit/mL (3 mL) injection pen 40 units twice a day, adjust dose based on sugars, max daily dose 100 units 02/28/2023 Yes metoprolol tartrate, short acting, (LOPRESSOR) 25 mg tablet Take 1 tablet by mouth twice daily. 03/01/2023 Yes alpha lipoic acid 200 mg cap Take 1 capsule by mouth three times daily. For neuropathy. 02/28/2023 Yes furosemide (LASIX) 40 mg tablet Take 1 tablet by mouth three times daily. Per Dr. Lilian Vance, nephrology. 02/28/2023 Yes levothyroxine (SYNTHROID) 175 mcg tablet 7 & 1/2 pills per week (one a day with extra half pill on Sunday) 02/28/2023 Yes melatonin 10 mg ODT Take 1 tablet by mouth at bedtime as needed. 02/28/2023 Yes docusate sodium (COLACE ORAL) Take by mouth. 02/28/2023 Yes lactulose (DUPHALAC, CONSTULOSE) 10 gram/15 mL solution 30 mL q 24 HR. 02/28/2023 Yes ferrous sulfate 325 mg (65 mg iron) tablet Take 325 mg by mouth twice daily with meals. Past Week Yes calcium citrate (CITRACAL ORAL) Take 2 tablets by mouth twice daily. 02/28/2023 Yes multivit-min/iron/folic acid/K (BARIATRIC MULTIVITAMINS ORAL) Take by mouth. 02/28/2023 Yes fluticasone (FLONASE) 50 mcg/actuation nasal spray Use 2 Sprays in each nostril once daily. Unknown Yes polyethylene glycol 3350(MIRALAX 100 % ORAL POWDER) 17 grams/8 0z water daily 02/28/2023 Yes ASA LOW DOSE 81MG TAB EC Take one(1) tablet daily. 03/01/2023 Yes glucagon 3 mg/actuation nasal spray (BAQSIMI) Use 1 [place] in the nose as needed for low blood sugar. May repeat after 15 minutes using a new device if there is no response. gabapentin (NEURONTIN) 400 mg capsule Take 2 capsules by mouth daily at bedtime for 180 days. esomeprazole (NEXIUM) 40 mg capsule Take 1 capsule by mouth twice daily before meals. Blood-Glucose Sensor (Histros G7 SENSOR) claudia change every 10 days evolocumab (REPATHA SURECLICK) 140 mg/mL pen injector Inject 140 mg subcutaneously every 2 weeks. Per [facility]. Unknown diclofenac (VOLTAREN) 1 % topical gel Apply 4 g to affected area four times daily. Unknown Blood-Glucose Transmitter (DEXCOM G6 TRANSMITTER) claudia change every 3 weeks blood sugar diagnostic (ACCU-CHEK ANNALISE PLUS TEST STRP) test strip Use to check blood sugar 4 times daily nitroglycerin sublingual (NITROQUICK) 0.4 mg SL tablet Dissolve 1 tablet under the tongue as needed. FOR CHEST PAIN. IF NO RELIEF CALL 911 Insulin Wales, Disposable, (BD ULTRAFINE III MINI PEN) 31 gauge x 3/16 1 Each as directed. 6 times daily. Dx:E11.40. On multiple insulin doses. Lancets (ACCU-CHEK SOFTCLIX LANCETS) lancets Checking blood sugars 4 times daily. Dx: E11.42 CPAP Auto bilevel with humidity set as follows: IPAP max 24, EPAP min 8 and PS 4-6 cmH2O. Comfort settings TiMax 2.0, TiMin 0.3, Trigger -M, Cycle-M. Continue using ResMed N20 nasal mask interface. BIPAP COMPOUNDED PRESCRIPTION Initiate BiPAP @ 15/9 cm of water with humidification. Mask (per patient preference) optional chin strap (if indicated) , filters, tubing, humidifier and lifetime supplies. Dx. ABDI 327.23 ALLERGIES Allergen Reactions Adhesive Tape (Jamila* Other: See Comments Contact celluitis Crestor [Rosuvastat* Intolerance Lantus [Insulin Gla* Intolerance burning at local injection site Nickel Rash in jewelry; also Palladium which cross reacts with nickel in some cases. Palladium Rash Pravastatin Intolerance Muscle cramps Toradol [Ketorolac] Hives Objective PHYSICAL EXAM: The remainder of the physical exam is noncontributory. AIRWAY: Airway Visualization of Uvula: Yes Mouth opening greater than 2 fingerbreadths: Yes Neck Full Range of Motion: Yes LUNGS: Lungs clear to auscultation CARDIAC: Regular rhythm,Regular rate Assessment/Plan ASA Class: ASA Class:: Patient with severe systemic disease Active Problems: GERD Dysphagia Provisional Diagnosis/Treatment Plan: EGD with dilation Procedure was discussed with the patient including risks of oversedation, bleeding, and perforation. Patient agreed to proceed. SEDATION GOAL: Anesthesia SIGNATURE: Jay Deleon MD PATIENT NAME: Bhakti Kirkpatrick DATE: March 01, 2023 TIME: 1:36 PM documented in this encounter [facility] 03-01-2023 Nurse Note PRE OP LEARNING ASSESSMENT PROCEDURE/SURGERY: GI PROCEDURES: EGD READINESS TO LEARN COGNITIVE ABILITY: Alert and oriented MOTIVATION TO LEARN: Eager FAMILY SUPPORT: High - Very involved in pt care PATIENT LEARNS BEST BY: Written Instruction - Hand-outs FACTORS AFFECTING LEARNING: None PHYSICAL LIMITATIONS AFFECTING LEARNING: None Electronically Signed By: Kristina Crabtree RN In Department: AMBULATORY SURGERY [facility] 02-28-2023 History of Present illness Narrative Type of visit: In person individual Patient started today on Omnipod Dash insulin pump. Type of training:new to pump Reviewed basic operation and programing of the insulin pump, spouse did most of the programing. Patient was unable to read the screen using the pump herself and she was unwilling at this time to use the pump as her primary means of managing sugars. Given that the Omnipod Dash does not integrate with her Dexcom to adjust for high or lows this seems reasonable to this educator. Per patient's spouse their insurance would not cover the Omnipod 5 because she is type2 rather than type1. Reviewed use of the insulin pens as patient reports she will use the same amount of insulin but on different days have sugars of 300s or 100s. Patient had areas of apparent lipodystrophy (hardened tissue where she she indicated she usually injects) and counseled on use of other sites or expanding the area of the belly that she uses for injections to facilitate more consistent absorption. Patient's spouse reports needle phobia that limits his ability to assist with injections. Reviewed hypoglycemia treatment, Hyperglycemia treatment and reporting and sick day management. Patient complained that her Dexcom would alert and continuously beep at her when she was high or low, assisted her to modify the alert for highs and lows from continuous repeat to q15 minutes for low or q30 minutes for high. Low alert was set a 90 mg/dL and high alert was set at 320 mg/dL. I spent 75 minutes with this patient today. Max Rizvi RN documented in this encounter [facility] 02-21-2023 Instructions Jesus Davila MD - 02/21/2023 3:42 PM EDT HAVE PODIATRY SEND REPORT. Recombinant shingles vaccine (Shingrix) is recommended; 2 doses 2-6 months apart. Please read information, check with your insurance, and schedule vaccination at your local pharmacy. A prescription is not required. If you are certain you have coverage to receive this vaccine in the office, we can schedule this for you. Update Tetanus booster (Tdap) at pharmacy. documented in this encounter [facility] 02-21-2023 History of Present illness Narrative This note was created using Beneq. Subjective Bhakti Kirkpatrick is a 77 year old female here with Edward. She had issues with nocturnal hypoglycemia, and Dr. Best reduced her bedtime insulin. It seemed her glucoses have improved significantly since then. However, he got concerned this weekend, because the Dexcom kept alarming low's in the evening, and despite eating a banana, 2 pretzels, a glucose tablet, and 2 mini chocolate bars, her glucose barely climbed from 53-125 over the next 4 hours until they went to sleep. She was being considered for insulin pump. Her lipids had not been rechecked since [facility] in November. Her hips were increasingly painful again, despite right total hip in 2020. She requested referral to [facility] to have this evaluated. Gabapentin does help, and had been off chronic opioid for one year now. Review of Systems Constitutional: Negative for fever and unexpected weight change. Respiratory: Negative for chest tightness and shortness of breath. Cardiovascular: Positive for leg swelling. Negative for chest pain and palpitations. Gastrointestinal: Negative for abdominal pain, constipation and diarrhea. Genitourinary: Negative for difficulty urinating and frequency. Musculoskeletal: Positive for arthralgias. Neurological: Negative. ACTIVE PROBLEM LIST Edema Abdi Treated With Bipap Arteriosclerotic Heart Disease (Ashd) Hypertensive Heart Disease With Heart Failure and Stage 4 Chronic Kidney Disease (Hcc) Degenerative Arthritis of Knee Myalgia Hyperlipidemia (Hfpef) Heart Failure With Preserved Ejection Fraction (Hcc) Fatty Liver History of Thyroid Cancer Type 2 Diabetes Mellitus With Stage 4 Chronic Kidney Disease, With Long-Term Current Use of Insulin (Hcc) Depressive Disorder Chronic Kidney Disease, Stage IV (Severe) ([facility]) S/P Laparoscopic Sleeve Gastrectomy Gerd Without Esophagitis Sensory Hearing Loss, Bilateral Class 3 Severe Obesity With Body Mass Index (Bmi) of 45.0 to 49.9 in Adult (Hcc) Type 2 Diabetes Mellitus With Diabetic Neuropathy, With Long-Term Current Use of Insulin ([facility]) Primary Osteoarthritis of Both Hips Vertigo Cognitive Impairment Circadian Rhythm Sleep Disorder, Irregular Sleep Wake Type Anemia Acute Gout Involving Toe of Right Foot Current Outpatient Medications Medication Sig colchicine 0.6 mg tablet Take 2 tabs by mouth, followed by 1 tab one hour later for gout flare. May repeat in 1 week. gabapentin (NEURONTIN) 300 mg capsule Take 2 capsules by mouth every morning for 180 days. allopurinol (ZYLOPRIM) 300 mg tablet Take 1 tablet by mouth once daily. For gout. insulin aspart U-100 (NOVOLOG FLEXPEN U-100 INSULIN) 100 unit/mL (3 mL) 14 in AM, 14 at lunch, 14 at supper, 10 at bed, plus extra based on sugars, max daily dose 100 units plus sliding scale DULoxetine (CYMBALTA) 60 mg capsule Take 1 capsule by mouth once daily. esomeprazole (NEXIUM) 40 mg capsule Take 1 capsule by mouth twice daily before meals. memantine (NAMENDA) 10 mg tablet Take 1 tablet by mouth twice daily. insulin detemir U-100 (LEVEMIR FLEXTOUCH U-100 INSULIN) 100 unit/mL (3 mL) injection pen 40 units twice a day, adjust dose based on sugars, max daily dose 100 units Blood-Glucose Sensor (DEXCOM G7 SENSOR) claudia change every 10 days evolocumab (REPATHA SURECLICK) 140 mg/mL pen injector Inject 140 mg subcutaneously every 2 weeks. [facility]. diclofenac (VOLTAREN) 1 % topical gel Apply 4 g to affected area four times daily. metoprolol tartrate, short acting, (LOPRESSOR) 25 mg tablet Take 1 tablet by mouth twice daily. alpha lipoic acid 200 mg cap Take 1 capsule by mouth three times daily. For neuropathy. furosemide (LASIX) 40 mg tablet Take 1 tablet by mouth three times daily. Per Dr. Lilian Vance, nephrology. Blood-Glucose Transmitter (DEXCOM G6 TRANSMITTER) claudia change every 3 weeks levothyroxine (SYNTHROID) 175 mcg tablet 7 & 1/2 pills per week (one a day with extra half pill on Sunday) blood sugar diagnostic (ACCU-CHEK ANNALISE PLUS TEST STRP) test strip Use to check blood sugar 4 times daily nitroglycerin sublingual (NITROQUICK) 0.4 mg SL tablet Dissolve 1 tablet under the tongue as needed. FOR CHEST PAIN. IF NO RELIEF CALL 911 Insulin [place], Disposable, (BD ULTRAFINE III MINI PEN) 31 gauge x 3/16 1 Each as directed. 6 times daily. Dx:E11.40. On multiple insulin doses. Lancets (ACCU-CHEK SOFTCLIX LANCETS) lancets Checking blood sugars 4 times daily. Dx: E11.42 CPAP Auto bilevel with humidity set as follows: IPAP max 24, EPAP min 8 and PS 4-6 cmH2O. Comfort settings TiMax 2.0, TiMin 0.3, Trigger -M, Cycle-M. Continue using ResMed N20 nasal mask interface. melatonin 10 mg ODT Take 1 tablet by mouth at bedtime as needed. docusate sodium (COLACE ORAL) Take by mouth. lactulose (DUPHALAC, CONSTULOSE) 10 gram/15 mL solution 30 mL q 24 HR. ferrous sulfate 325 mg (65 mg iron) tablet Take 325 mg by mouth twice daily with meals. BIPAP calcium citrate (CITRACAL ORAL) Take 2 tablets by mouth twice daily. multivit-min/iron/folic acid/K (BARIATRIC MULTIVITAMINS ORAL) Take by mouth. fluticasone (FLONASE) 50 mcg/actuation nasal spray Use 2 Sprays in each nostril once daily. COMPOUNDED PRESCRIPTION Initiate BiPAP @ 15/9 cm of water with humidification. Mask (per patient preference) optional chin strap (if indicated) , filters, tubing, humidifier and lifetime supplies. Dx. ABDI 327.23 polyethylene glycol 3350(MIRALAX 100 % ORAL POWDER) 17 grams/8 0z water daily ASA LOW DOSE 81MG TAB EC Take one(1) tablet daily. gabapentin (NEURONTIN) 400 mg capsule Take 2 capsules by mouth daily at bedtime for [address] (PROTONIX) 20 mg tablet Take 1 tablet by mouth twice daily. No current facility-administered medications for this visit. Objective BP 98/68 (BP Site: Left Arm, BP Position: Sitting, BP Cuff Size: Large Adult) Pulse 76 Resp 12 Ht 153 cm (5' 0.25) Wt 97.9 kg (215 lb 12.8 oz) LMP 06/27/2011 BMI 41.80 kg/m Physical Exam Constitutional: General: She is not in acute distress. Appearance: She is not ill-appearing. HENT: Head: Normocephalic. Cardiovascular: Rate and Rhythm: Normal rate and regular rhythm. Heart sounds: No murmur heard. No gallop. Pulmonary: Breath sounds: Normal breath sounds. No wheezing or rales. Abdominal: Tenderness: There is no abdominal tenderness. Musculoskeletal: Right lower le+ Pitting Edema present. Left lower le+ Pitting Edema present. Neurological: General: No focal deficit present. Mental Status: She is alert and oriented to person, place, and time. Gait: Gait abnormal. Comments: Using a rollator walker. Component Latest Ref Rng & Units 02/21/2023 Glucose 74 - 99 mg/dL 208 (H) BUN 7 - 21 mg/dL 21 Creatinine 0.58 - 0.96 mg/dL 1.10 (H) Sodium 136 - 144 mmol/L 140 Potassium 3.7 - 5.1 mmol/L 3.9 Chloride 97 - 105 mmol/L 99 CO2 22 - 30 mmol/L 30 Anion Gap 9 - 18 mmol/L 11 Calcium 8.5 - 10.2 mg/dL 9.8 eGFR >=60 mL/min/1.73m 53 (L) Lipids pending. Assessment and Plan 1. Medicare annual wellness visit, subsequent - ICD9: V70.0, ICD10: Z00.00 (primary diagnosis) See wellness note. 2. Osteoarthritis of knee, unspecified laterality, unspecified osteoarthritis type - ICD9: 715.36, ICD10: M17.9 Stable. - GABAPENTIN 400 MG CAPSULE 3. Primary osteoarthritis of both hips - ICD9: 715.15, ICD10: M16.0 Worse. - GABAPENTIN 400 MG CAPSULE - CONSULT TO ORTHOPAEDICS. [facility]. Dr. Beltran. 4. Chronic bronchitis, unspecified chronic bronchitis type (HCC) - ICD9: 491.9, ICD10: J42 Stable. 5. Class 3 severe obesity with serious comorbidity and body mass index (BMI) of 45.0 to 49.9 in adult, unspecified obesity type (HCC) - ICD9: 278.01, V85.42, ICD10: E66.01, Z68.42 Stable 6. Depression, recurrent (HCC) - ICD9: 296.30, ICD10: F33.9 Controlled. 7. Heart failure with preserved ejection fraction, unspecified HF chronicity (HCC) - ICD9: 428.9, ICD10: I50.30 Stable. 8. Hypoglycemia - ICD9: 251.2, ICD10: E16.2 Slow to respond to oral glucose. - GLUCAGON 3 MG/ACTUATION NASAL SPRAY. Discussed medication dosage, usage, goals of therapy, and side effects. 9. Type 2 diabetes mellitus with diabetic neuropathy, with long-term current use of insulin ([facility]) - ICD9: 250.60, 357.2, V58.67, ICD10: E11.40, Z79.4 - Improving control - GLUCAGON 3 MG/ACTUATION NASAL SPRAY - She will see her table cut off saw operator this week. Jesus Davila MD Medicare Yearly Visit Medical B eligibilty date 04/10/2012 Date of last exam 03/02/2022 PAST MEDICAL HISTORY Diagnosis Date (HFpEF) heart failure with preserved ejection fraction ([facility]) 06/23/2015 Dr. 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) 09/13/2017 CKD stage 3 due to type 2 diabetes mellitus ([facility]) 02/06/2015 Coronary artery calcification seen on CAT scan 01/21/2013 Depressive disorder 03/31/2016 Diverticulosis 08/23/2010 Diverticulosis of colon (without mention of hemorrhage) Edema GERD without esophagitis 09/02/2019 Hearing loss HTN (hypertension) 08/12/2014 Hypertensive kidney disease with stage 3a chronic kidney disease (HCC) 08/12/2014 Infected prosthetic mesh of abdominal wall ([facility]) 06/30/2020 Ingrown toenail Morbid obesity ([facility]) Obstructive sleep apnea CPAP Other and unspecified hyperlipidemia Other dyspnea and respiratory abnormality Palpitations Primary osteoarthritis of both hips 08/18/2020 Rosacea Symptomatic menopausal or female climacteric states 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 Type II or unspecified type diabetes mellitus without mention of complication, not stated as uncontrolled 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 07/10/2018 Unspecified intestinal obstruction 10/2018 PAST SURGICAL HISTORY Procedure Laterality Date APPENDECTOMY 05/20/2001 open ARTHRP KNE CONDYLE&PLATU MEDIAL&LAT COMPARTMENTS Left 08/18/2014 Knee replacement, total left ARTHRP KNE CONDYLE&PLATU MEDIAL&LAT COMPARTMENTS Right 06/12/2012 total right knee arthroplasty ; THYROIDECTOMY TOTAL OR COMPLETE Bilateral 12/15/2009 Papillary Ca CHOLECYSTECTOMY 05/20/2001 Cholecystectomy-lap COLONOSCOPY FLX DX W/COLLJ SPEC WHEN PFRMD 06/06/2004 COLONOSCOPY FLX DX W/COLLJ SPEC WHEN PFRMD 08/23/2010 EXCISION EXCESSIVE SKIN & SUBQ TISSUE OTHER AREA 01/17/2002 Abdominoplasty EXPLORATORY LAPAROTOMY, CELIOTOMY-SP 06/24/2020 Takedown of enteroprosthetic fistula.Small bowel resection anastosmosis. Removal infected mesh. Recurrent vental hernia repair. HIP ARTHROSCOPY W/SYNOVECTOMY Right 09/19/2021 exc.seroma; gluteus repair; rotium augmentation; trochanteric bursectomy, iliotibial band resection LAPAROCOPIC SLEEVE GASTRECTOMY 03/10/2019 Extensive laparoscopic lysis of adhesions. EGD. Lap. TAP block. LEFT HEART CATH,PERCUTANEOUS 09/13/2017 no significant CAD NEPHRECTOMY PARTIAL Right 03/1991 Right side for benign tumor, small lesion removed REPAIR FIRST ABDOMINAL WALL HERNIA 09/25/2005 7 times total RPR 1ST INCAL/VNT HERNIA INCARCERATED 06/11/2007 with mesh TOTAL ABDOMINAL HYSTERECT W/WO RMVL TUBE OVARY 05/20/2001 PER, for fibroids and BSO TOTAL HIP REPLACEMENT Right 10/20/2020 anterior minimally invasive right total hip ALLERGIES: Adhesive Tape (Rosins), Crestor [Rosuvastatin Calcium], Lantus [Insulin Glargine], Nickel, Palladium, Pravastatin, and Toradol [Ketorolac] Medications reviewed: Yes FAMILY HISTORY Problem Relation Age of Onset COPD Mother at 64 yoa Ischemic Heart Disease Father Mi at 61 yoa GI Brother cirrhosis other (AAA rupture) Brother Lung cancer, 49 yoa Hypertension Sister 2 years younger Coronary Artery Disease Sister Stroke Sister Diabetes Sister Cancer Paternal Aunt Cervical cancer Diabetes Maternal Aunt Diabetes Paternal Aunt Diabetes Paternal Grandfather Heart Paternal Uncle other (parkinson) Son 41 SOCIAL HISTORY: Social History Tobacco Use Smoking status: Former Packs/day: 2.00 Years: 15.00 Pack years: 30.00 Types: Cigarettes Quit date: 09/10/1991 Years since quittin.4 Smokeless tobacco: Never Vaping Use Vaping Use: Never used Substance Use Topics Alcohol use: No Drug use: No Bhakti is more or less sedentary occasionally exercising in the form of walking. She watches her diet for sodium, low fat and low cholesterol most of the time. List of current specialists seen: [facility] Torres, cardiology, [facility]. Dr. Landen Best, endocrinology. Dr. Kaminski, podiatry. Dr. Kvng Uribe, ophthalmology. Dr. Shay Pena, neurology. Zakia Rodney, audiology. Dr. Jay Deleon, gastroenterology. [facility] Dermatology. End of Live Planning discussed including patients advanced directive wishes: Yes I am willing to follow Bhakti's advanced directives. PHQ-2 / Depression screen She in the past two weeks denies having felt down, depressed, hopeless, or with little interest or pleasure in doing things. Functional Ability/Safety Screen 1. Was the patient's timed Up and Go test unsteady or longer than 30 seconds? No 2. Does the patient need help with the phone, transportation, shopping,preparing meals, housework, laundry, medications or managing money? No 3. Does your home have rugs in the hallway, lack of grab bars in the bathroom, lack of handrails on the stairs or have poor lighting? No Hearing Evaluation: wears hearing aids PHYSICAL EXAM BP 98/68 (BP Site: Left Arm, BP Position: Sitting, BP Cuff Size: Large Adult) Pulse 76 Resp 12 Ht 153 cm (5' 0.25) Wt 97.9 kg (215 lb 12.8 oz) LMP 06/27/2011 BMI 41.80 kg/m Alert and oriented X 3: YES Body mass index is 41.8 kg/m . Visual acuity: OD: 20/40 OS: 20/ 70 OU: 20/70 ASSESSMENT/PLAN: 77 year old female The following prevention plan was discussed during the office visit and provided to the patient: - Counseled on healthy diet and regular exercise - Discussed need for and benefit of weight loss. BMI 41.80 kg/(m^2) - Fall avoidance - Vaccines recommended Shingrix at pharmacy and Tdap at pharmacy - Depression screening Jesus Davila MD documented in this encounter [facility] 02-09-2023 Miscellaneous Notes Jeancarlos, This patient has received the Omnipod DASH pump and needs training. Patient is new to pump. You are being assigned the training. Please contact patient to schedule training or instruct your PSS team on how to schedule. Please advise patient to bring the following to the pump start once scheduled: 1. Omnipod pump controller/PDM 2. Vial of rapid-acting insulin with at least 200 units in it 3. At least 2 of each of the following items: Omnipod pods Please coordinate the followin. Pre-pump education at your discretion 2. Order for rapid-acting insulin vials 3. Orders for pump rate settings Patient has been added to the pump training spreadsheet, so update as needed. Please respond LILIBETH if you would prefer this training gets reassigned. Natali Hanks documented in this encounter [facility] 01-24-2023 Telephone encounter Note Patient's hearing aids were dropped off. Patient took shower with the two non-battery hearing aids Need repair Hearing aid in Drop Box Thank you [facility] 01-24-2023 Miscellaneous Notes Patient's hearing aids were dropped off. Patient took shower with the two non-battery hearing aids Need repair Hearing aid in Drop Box Thank you documented in this encounter [facility] 01-12-2023 Miscellaneous Notes Called pt and reviewed results. Patient is scheduled. Patient's spouse wanted someone from the office to call and go over original mammogram results with them. Please review and advise. Fadumo Del Valle, PSS January 12, 2023 11:52 AM PSS please contact Patient to schedule. Christin Thao LPN Spouse calling for pt. They saw results on MyChart and additional views are recommended. Please review and advise Spouse with results and orders for further testing. Mikaela Schmid LPN documented in this encounter [facility] 01-08-2023 Miscellaneous Notes January 09, 2023 PID: [id number] Bhakti Kirkpatrick [address] [place] [address] Dear Ms. Kirkpatrick, Your recent breast imaging exam on 01/05/2023 showed a possible finding that requires additional imaging studies for a complete evaluation. Most such findings are probably benign (not cancer). If you have a healthcare provider who ordered/prescribed your screening mammogram: Please call [phone] or EXT: [phone] to schedule an appointment for your additional imaging (if you have not already done so). If you DO NOT have a healthcare provider (ie you did not have an order/prescription for your screening mammogram): Please call to schedule an appointment for your additional imaging (if you have not already done so). You must have an order/prescription from your physician when calling to schedule your appointment. If your order/prescription is not electronic, you must bring the hard copy with you on the day of your exam to avoid delays. Your imaging studies and reports are kept on file at [facility] as part of your permanent medical record, and are available for your continuing care. Thank you for allowing us to help in meeting your health care needs. Sincerely, Dr. Pantoja Interpreting Radiologist [facility] (Additional imaging) documented in this encounter [facility] 01-08-2023 Miscellaneous Notes Patient has been identified by name and date of : Yes, Provider Arcenio Date 01/08/23 Time 8:50am Patient phones for refill(s): Requested Prescriptions Pending Prescriptions Disp Refills DULoxetine (CYMBALTA) 60 mg capsule 90 capsule 1 Sig: Take 1 capsule by mouth once daily. Date of last office visit in primary care: 02/21/23 Last 2 Encounter Wt Readings: Date: Wt: 12/25/2022 98.4 kg (217 lb) 12/22/2022 98.5 kg (217 lb 3.2 oz) Please advise. Thank you. Nerissa Orozco LPN documented in this encounter [facility] 01-05-2023 History of Present illness Narrative CDM Telephonic Outreach Provider Action/FYI Last CDM outreach contact 01/05- No concerns. wt 217 lbs Going on vacation to [facility] in March Baseline: 12/08/22 ADL, FALL, GOAL due: 08/16/22 Contacted for: Routine Telephonic Outreach Contact made with patient: Yes Patient identified by name and date of . Discussed care with patient Are you experiencing any new or worsening symptoms you need to talk about today? No Disease Specific Do you check your blood pressure at home? Yes, Enter readings: no reading available Average < 130/80 Do you have new or worsening shortness of breath with activity? No Do you have new or worsening trouble breathing while lying flat? No Do you have new or worsening swelling of legs, feet or ankles? No Do you feel like you are dehydrated for any reason, including not being able to eat or drink normally, or having less urine/much darker urine than normal for you? No Do you check your daily weight at home? Yes, Have you noticed a sudden gain in weight greater than three pounds in a day or three pounds in a week? No Based on manager of selection and assessment, the following disposition is advised: Symptoms present, not severe. Routed to: No Action Needed IVAN Education Provided this Outreach: No Catherine Pompa RN January 05, 2023 3:18 PM documented in this encounter [facility] 01-04-2023 Miscellaneous Notes Please enter a screening mammogram order, pt coming in 01/05/23, thank you! documented in this encounter [facility] 12-25-2022 History of Present illness Narrative Chief Compliant: Bhakti Kirkpatrick, 77 year old female, presents in the office today at the request of Jesus Davila for GERD. My final recommendations will be communicated back to the requesting physician by the way of the shared medical record, fax, or via US Mail. HPI: Bhakti Kirkpatrick is a 77 year old female who presents for GERD Patient is s/p sleeve gastrectomy in 2019 Recent issues with acid reflux, acid and food regurgitation She vomits usually after eating Feels food made it to the stomach then up No clear dysphagia Lost about 30 pounds since her surgery Chronic issues with constipation Takes lactulose daily No abd pain Previous OV Previous Procedures: 08-23-[address] Melonie Henry IMPRESSION: normal colonscopy, few sigmoid diverticula Previous Imagin03-07-2021 Negative Cologuard ALLERGIES Allergen Reactions Adhesive Tape (Jamila* Other: See Comments Contact celluitis Crestor [Rosuvastat* Intolerance Lantus [Insulin Gla* Intolerance burning at local injection site Nickel Rash in jewelry; also Palladium which cross reacts with nickel in some cases. Palladium Rash Pravastatin Intolerance Muscle cramps Toradol [Ketorolac] Hives insulin detemir U-100 (LEVEMIR FLEXTOUCH U-100 INSULIN) 100 unit/mL (3 mL) injection pen 40 units twice a day, adjust dose based on sugars, max daily dose 100 units Blood-Glucose Meter,Continuous (DEXCOM G7 PACK PRESS OPERATOR) misc use to check sugars Blood-Glucose Sensor (DEXCOM G7 SENSOR) claudia change every [address] (PROTONIX) 20 mg tablet Take 1 tablet by mouth twice daily. evolocumab (REPATHA SURECLICK) 140 mg/mL pen injector Inject 140 mg subcutaneously every 2 weeks. [facility]. colchicine 0.6 mg tablet Take 2 tabs by mouth, followed by 1 tab one hour later for gout flare. May repeat in 1 week. allopurinol (ZYLOPRIM) 100 mg tablet Take 2 tablets by mouth once daily. For gout. memantine (NAMENDA) 5 mg tablet Take 1 tablet by mouth twice daily. diclofenac (VOLTAREN) 1 % topical gel Apply 4 g to affected area four times daily. metoprolol tartrate, short acting, (LOPRESSOR) 25 mg tablet Take 1 tablet by mouth twice daily. alpha lipoic acid 200 mg cap Take 1 capsule by mouth three times daily. For neuropathy. furosemide (LASIX) 40 mg tablet Take 1 tablet by mouth three times daily. Per Dr. Lilian Vance, nephrology. gabapentin (NEURONTIN) 300 mg capsule Take 2 capsules by mouth every morning for 180 days. gabapentin (NEURONTIN) 400 mg capsule Take 2 capsules by mouth daily at bedtime for 180 days. DULoxetine (CYMBALTA) 60 mg capsule Take 1 capsule by mouth once daily. Blood-Glucose Transmitter (Histros G6 TRANSMITTER) claudia change every 3 weeks levothyroxine (SYNTHROID) 175 mcg tablet 7 & 1/2 pills per week (one a day with extra half pill on Sunday) blood sugar diagnostic (ACCU-CHEK ANNALISE PLUS TEST STRP) test strip Use to check blood sugar 4 times daily insulin aspart U-100 (NOVOLOG FLEXPEN U-100 INSULIN) 100 unit/mL (3 mL) 17 in AM, 13 at lunch, 19 at supper, 10 at bed, plus extra based on sugars, max daily dose 100 units (Patient taking differently: 14 in AM, 14 at lunch, 14 at supper, 10 at bed, plus extra based on sugars, max daily dose 100 units plus sliding scale) nitroglycerin sublingual (NITROQUICK) 0.4 mg SL tablet Dissolve 1 tablet under the tongue as needed. FOR CHEST PAIN. IF NO RELIEF CALL 911 Insulin Wales, Disposable, (BD ULTRAFINE III MINI PEN) 31 gauge x 3/16 1 Each as directed. 6 times daily. Dx:E11.40. On multiple insulin doses. Lancets (ACCU-CHEK SOFTCLIX LANCETS) lancets Checking blood sugars 4 times daily. Dx: E11.42 CPAP Auto bilevel with humidity set as follows: IPAP max 24, EPAP min 8 and PS 4-6 cmH2O. Comfort settings TiMax 2.0, TiMin 0.3, Trigger -M, Cycle-M. Continue using ResMed N20 nasal mask interface. melatonin 10 mg ODT Take 1 tablet by mouth at bedtime as needed. docusate sodium (COLACE ORAL) Take by mouth. lactulose (DUPHALAC, CONSTULOSE) 10 gram/15 mL solution 30 mL q 24 HR. ferrous sulfate 325 mg (65 mg iron) tablet Take 325 mg by mouth twice daily with meals. BIPAP calcium citrate (CITRACAL ORAL) Take 2 tablets by mouth twice daily. multivit-min/iron/folic acid/K (BARIATRIC MULTIVITAMINS ORAL) Take by mouth. fluticasone (FLONASE) 50 mcg/actuation nasal spray Use 2 Sprays in each nostril once daily. COMPOUNDED PRESCRIPTION Initiate BiPAP @ 15/9 cm of water with humidification. Mask (per patient preference) optional chin strap (if indicated) , filters, tubing, humidifier and lifetime supplies. Dx. ABDI 327.23 polyethylene glycol 3350(MIRALAX 100 % ORAL POWDER) 17 grams/8 0z water daily ASA LOW DOSE 81MG TAB EC Take one(1) tablet daily. HISTORIES: FAMILY HISTORY Problem Relation Age of Onset COPD Mother at 64 yoa Ischemic Heart Disease Father Mi at 61 yoa GI Brother cirrhosis other (AAA rupture) Brother Lung cancer, 49 yoa Hypertension Sister 2 years younger Coronary Artery Disease Sister Stroke Sister Diabetes Sister Cancer Paternal Aunt Cervical cancer Diabetes Maternal Aunt Diabetes Paternal Aunt Diabetes Paternal Grandfather Heart Paternal Uncle other (parkinson) Son 41 PAST MEDICAL HISTORY Diagnosis Date (HFpEF) heart failure with preserved ejection fraction (HCC) 06/23/2015 Dr. 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) 02/06/2015 Coronary artery calcification seen on CAT scan 01/21/2013 Depressive disorder 03/31/2016 Diverticulosis 08/23/2010 Diverticulosis of colon (without mention of hemorrhage) Edema GERD without esophagitis 09/02/2019 Hearing loss HTN (hypertension) 08/12/2014 Hypertensive kidney disease with stage 3a chronic kidney disease (HCC) 08/12/2014 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) 06/30/2020 Ingrown toenail Morbid obesity (HCC) Obstructive sleep apnea CPAP Other and unspecified hyperlipidemia Other dyspnea and respiratory abnormality Palpitations Primary osteoarthritis of both hips 08/18/2020 Rosacea Symptomatic menopausal or female climacteric states 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 Type II or unspecified type diabetes mellitus without mention of complication, not stated as uncontrolled 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 07/10/2018 Unspecified intestinal obstruction 10/2018 PAST SURGICAL HISTORY Procedure Laterality Date APPENDECTOMY 05/20/2001 open ARTHRP KNE CONDYLE&PLATU MEDIAL&LAT COMPARTMENTS Left 08/18/2014 Knee replacement, total left ARTHRP KNE CONDYLE&PLATU MEDIAL&LAT COMPARTMENTS Right 06/12/2012 total right knee arthroplasty ; THYROIDECTOMY TOTAL OR COMPLETE Bilateral 12/15/2009 Papillary Ca CHOLECYSTECTOMY 05/20/2001 Cholecystectomy-lap COLONOSCOPY FLX DX W/COLLJ SPEC WHEN PFRMD 06/06/2004 COLONOSCOPY FLX DX W/COLLJ SPEC WHEN PFRMD 08/23/2010 EXCISION EXCESSIVE SKIN & SUBQ TISSUE OTHER AREA 01/17/2002 Abdominoplasty EXPLORATORY LAPAROTOMY, CELIOTOMY-SP 06/24/2020 Takedown of enteroprosthetic fistula.Small bowel resection anastosmosis. Removal infected mesh. Recurrent vental hernia repair. HIP ARTHROSCOPY W/SYNOVECTOMY Right 09/19/2021 exc.seroma; gluteus repair; rotium augmentation; trochanteric bursectomy, iliotibial band resection LAPAROCOPIC SLEEVE GASTRECTOMY 03/10/2019 Extensive laparoscopic lysis of adhesions. EGD. Lap. TAP block. LEFT HEART CATH,PERCUTANEOUS 09/13/2017 no significant CAD NEPHRECTOMY PARTIAL Right 03/1991 Right side for benign tumor, small lesion removed REPAIR FIRST ABDOMINAL WALL HERNIA 09/25/2005 7 times total RPR 1ST INCAL/VNT HERNIA INCARCERATED 06/11/2007 with mesh TOTAL ABDOMINAL HYSTERECT W/WO RMVL TUBE OVARY 05/20/2001 PER, for fibroids and BSO TOTAL HIP REPLACEMENT Right 10/20/2020 anterior minimally invasive right total hip Social History Tobacco Use Smoking status: Former Packs/day: 2.00 Years: 15.00 Pack years: 30.00 Types: Cigarettes Quit date: 09/10/1991 Years since quittin.2 Smokeless tobacco: Never Vaping Use Vaping Use: Never used Substance Use Topics Alcohol use: No Drug use: No REVIEW OF SYSTEMS: General:No weight loss, malaise or fevers Respiratory: Negative for cough, hemoptysis, wheezing or shortness of breath Cardiovascular: Negative for chest pain, leg swelling or palpitations Gastrointestinal: See HPI Genitourinary: No history of dysuria, frequency or incontinence Musculoskeletal: Negative for joint pain or swelling, back pain or muscle pain Neurologic:Negative for focal numbness or weakness, headaches and dizziness or syncope. Skin:Negative for lesions, rash, and itching Psychiatric: Negative for sleep disturbance, mood disorder and recent psychosocial stressors. Hematologic/Lymph:Negative for prolonged bleeding, bruising easily or swollen nodes Endocrine: Positive for diabetes mellitus on insulin PHYSICAL EXAMINATION: LMP 06/27/2011 General appearance: Well appearing, alert, in no acute distress, well-hydrated, well nourished. Skin: Skin color, texture, turgor normal, no suspicious rashes or lesions Head: Normocephalic, no masses, lesions, tenderness or abnormalities Eyes: Anicteric sclera. Pupils are equally round Neck: Supple Lungs: Lungs clear to auscultation. No wheezing, rhonchi, rales Heart: RRR without murmur, gallop, or rubs. No ectopy Abdomen: Normal abdominal exam, Abdomen soft, non-tender. Bowel sounds normal. No masses, organomegaly Extremities: No deformities, edema, skin discoloration, clubbing or cyanosis. Good capillary refill. Musculoskeletal: No joint swelling, deformity, or tenderness Neuro:WNL ASSESSMENT/PLAN: 1. GERD without esophagitis - ICD9: 530.81, ICD10: K21.9 (primary diagnosis) Patient is s/p sleeve gastrectomy in 2019 Recent issues with heartburn Acid and food regurgitation Has been on protonix 20mg BID for few years Poor control of her symptoms Will change PPI to nexium 40mg BID Schedule EGD Will consider dilation if needed - ESOMEPRAZOLE MAGNESIUM 40 MG CAPSULE,DELAYED RELEASE - EGD - THERAPEUTIC, EUS, OR TUBE INTERVENTIONS 2. Dysphagia, unspecified type - ICD9: 787.20, ICD10: R13.10 No clear dysphagia food regurgitation Will consider esophageal dilation if needed - EGD - THERAPEUTIC, EUS, OR TUBE INTERVENTIONS Jay Deleon MD Follow Up: No follow-ups on file. documented in this encounter [facility] 12-22-2022 History of Present illness Narrative ESTABLISHED PATIENT VISIT CHIEF COMPLAINT: Follow up HISTORY OF PRESENT ILLNESS: Bhakti Kirkpatrick is a 77 year old female, BMI 42.42 kg/m2 with a PMH significant for and per last office note of 07/2021: 1. Cognitive impairment - ICD9: 294.9, ICD10: R41.89 (primary diagnosis) Focus today placed on cognitive decline. Although pt subjectively reporting this much better, family disagrees and MOCA would suggest some progression of cognitive impairment. Note that reversible causes including thyroid and B12 have been evaluated and ruled out. MRI brain dose show cortical atrophy that in my opinion is most prominent in the temp and parietal lobes possibly suggesting a pattern consistent with early Alzheimer's disease. We discussed treatment options. Family is safe guarding house and providing pt assistance as needed. Patient concerned that Aricept may only exacerbate other med conditions after hearing possible SEs. Thus will start on Namenda. Pt would like to titrate dose slowly and thus for now will place on 5mg daily and then increase after 1 week to 5mg BID. SE and ADRs d/w pt and her family. At time of follow up will consider further increasing the dose. Encouraged brain exercises. 2. ABDI on CPAP - ICD9: 327.23, V46.8, ICD10: G47.33, Z99.89 Encouraged pt to use for well over 4 hours per day (currently not meeting 4 hour per day avg despite sleeping 16 hours of each day per family). Discussed with patient: the physiology of OSAS, medical conditions associated with untreated ABDI. Reminded pt to clean equipment regularly. Advised patient to avoid activities that could harm self or others when tired/sleepy, including driving and/or operating heavy machinery. Encouraged weight loss, and continued compliance with other medications. 3. 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 Unfortunately due to pain and other med conditions, she is not putting a great deal of effort into correcting this irregular sleep wake schedule. Will continue melatonin as previously recommended. Encouraged pt to wake at the same time daily, to get light exposure during the day, and to avoid naps. 4. Diabetic polyneuropathy associated with type 2 diabetes mellitus (HCC) - ICD9: 250.60, 357.2, ICD10: E11.42 Stable on current meds. Primarily complaint of pain at this time originates from hips. However, glucose remains elevated. Encouraged goal of <140. Encouraged follow up with endocrinology. Last office visit with neurology was on 09/14/21 with Boby Clark CNP. Per note of 09/14/21: R41.89 Cognitive impairment (primary encounter diagnosis) Comment: Modified MOCA repeated today due to virtual platform and without significant change since previous visit. Previously started on Namenda and has since increased to 5mg BID. Patient noting bilateral intermittent hand tremors roughly one week after starting medication. Of note, patient has had a bilateral tremor in the past at both rest and with activity, though not seen on previous exam. Exam completed virtually today and tremor not seen, however, difficult to determine if tremor present. Pt and reporting tremor not present today. Discussed option of decreasing medication to determine if there is improvement in tremor as timing is related to initiation of medication. If no improvement can continue medication and consider increasing dose. Patient and to notify office of changes in roughly two weeks. Recommend completing mentally stimulating activities for brain exercise (i.e. crossword puzzles, social interactions...) as well as regular physical exercise within patient limitations. G47.33, Z99.89 ABDI on CPAP G47.20 Circadian rhythm disorder Comment: Patient reporting regular PAP use over past month with reported use of roughly six hours per night. Difficulty sleeping in bed due to pain and has since set up her machine next to her chair resulting in increased compliance. Continues to take melatonin 10mg HS as well. Requested PAP download for review. Again encouraged pt to wake at the same time daily, to get light exposure during the day, and to avoid naps. E11.42 Diabetic polyneuropathy associated with type 2 diabetes mellitus (HCC) Comment: Remains stable on gabapentin 300mg in AM and at dinner and 600mg HS. Continue to work with endocrinology regarding BG control. Continue current medication. Patient does not know why she has not followed up in over 1 year. She feels the medicine is doing quite well in the way she reads, and retains and can use her computer without an issue. Feels like she did years ago. She does not drive. Chronic hip problems - following with ortho. Sleeping better but does not like to go to bed until after 11PM. She is however taking naps from dinner until bedtime. Waking at 6AM to start the day. Once in bed, no issues falling asleep. Pt not using PAP therapy. States when she tries to use it, mucus in throat builds up. Note, she has never increased humidifier setting. No tremors. No hallucinations. Modified MOCA: Immediate recall: 01/12 Number repeat: 10/12 Sentence repeat: 10/12 Serial 7s: 09/12 Similar objects: 10/12 Orientation: 12/22/2022, Biden, Venus. 02/13 Namin/3 Delayed recall: 10/15 Clock Drawing: (Hands incorrect) 10/13 REVIEW OF SYSTEMS GENERAL:No weight loss, malaise or fevers. HEENT:Negative for frequent or significant headaches, No changes in hearing or vision, no nose bleeds or other nasal problems RESPIRATORY: Negative for cough, wheezing or shortness of breath. CARDIOVASCULAR: Negative for chest pain, leg swelling or palpitations. GASTROINTESTINAL: Negative for abdominal discomfort, blood in stools or black stools or change in bowel habits GENITOURINARY: No history of dysuria, frequency or incontinence MUSCULOSKELETAL: +Gout NEUROLOGIC:Negative for focal numbness or weakness, headaches and dizziness or syncope, vision changes, speech/languag changes - EXCEPT that as per HPI above. SKIN:Negative for lesions, rash, and itching. LAB/IMAGING: Those performed since patient's last visit have been reviewed. Vitamin B12 Date Value Ref Range Status 06/10/2020 1,346 (H) 232 - 1,245 pg/mL Final TSH Date Value Ref Range Status 02/15/2022 3.650 0.270 - 4.200 mIU/L Final MEDICATIONS: insulin detemir U-100 (LEVEMIR FLEXTOUCH U-100 INSULIN) 100 unit/mL (3 mL) injection pen 40 units twice a day, adjust dose based on sugars, max daily dose 100 units Blood-Glucose Sensor (DEXCOM G7 SENSOR) claudia change every [address] (PROTONIX) 20 mg tablet Take 1 tablet by mouth twice daily. evolocumab (REPATHA SURECLICK) 140 mg/mL pen injector Inject 140 mg subcutaneously every 2 weeks. Per [facility]. colchicine 0.6 mg tablet Take 2 tabs by mouth, followed by 1 tab one hour later for gout flare. May repeat in 1 week. allopurinol (ZYLOPRIM) 100 mg tablet Take 2 tablets by mouth once daily. For gout. memantine (NAMENDA) 5 mg tablet Take 1 tablet by mouth twice daily. diclofenac (VOLTAREN) 1 % topical gel Apply 4 g to affected area four times daily. metoprolol tartrate, short acting, (LOPRESSOR) 25 mg tablet Take 1 tablet by mouth twice daily. alpha lipoic acid 200 mg cap Take 1 capsule by mouth three times daily. For neuropathy. furosemide (LASIX) 40 mg tablet Take 1 tablet by mouth three times daily. Per Dr. Lilian Vance, nephrology. gabapentin (NEURONTIN) 300 mg capsule Take 2 capsules by mouth every morning for 180 days. gabapentin (NEURONTIN) 400 mg capsule Take 2 capsules by mouth daily at bedtime for 180 days. DULoxetine (CYMBALTA) 60 mg capsule Take 1 capsule by mouth once daily. Blood-Glucose Transmitter (Histros G6 TRANSMITTER) claudia change every 3 weeks levothyroxine (SYNTHROID) 175 mcg tablet 7 & 1/2 pills per week (one a day with extra half pill on Sunday) blood sugar diagnostic (ACCU-CHEK ANNALISE PLUS TEST STRP) test strip Use to check blood sugar 4 times daily insulin aspart U-100 (NOVOLOG FLEXPEN U-100 INSULIN) 100 unit/mL (3 mL) 17 in AM, 13 at lunch, 19 at supper, 10 at bed, plus extra based on sugars, max daily dose 100 units (Patient taking differently: 14 in AM, 14 at lunch, 14 at supper, 10 at bed, plus extra based on sugars, max daily dose 100 units plus sliding scale) nitroglycerin sublingual (NITROQUICK) 0.4 mg SL tablet Dissolve 1 tablet under the tongue as needed. FOR CHEST PAIN. IF NO RELIEF CALL 911 Insulin Wales, Disposable, (BD ULTRAFINE III MINI PEN) 31 gauge x 3/16 1 Each as directed. 6 times daily. Dx:E11.40. On multiple insulin doses. Lancets (ACCU-CHEK SOFTCLIX LANCETS) lancets Checking blood sugars 4 times daily. Dx: E11.42 CPAP Auto bilevel with humidity set as follows: IPAP max 24, EPAP min 8 and PS 4-6 cmH2O. Comfort settings TiMax 2.0, TiMin 0.3, Trigger -M, Cycle-M. Continue using ResMed N20 nasal mask interface. melatonin 10 mg ODT Take 1 tablet by mouth at bedtime as needed. docusate sodium (COLACE ORAL) Take by mouth. lactulose (DUPHALAC, CONSTULOSE) 10 gram/15 mL solution 30 mL q 24 HR. ferrous sulfate 325 mg (65 mg iron) tablet Take 325 mg by mouth twice daily with meals. BIPAP calcium citrate (CITRACAL ORAL) Take 2 tablets by mouth twice daily. multivit-min/iron/folic acid/K (BARIATRIC MULTIVITAMINS ORAL) Take by mouth. fluticasone (FLONASE) 50 mcg/actuation nasal spray Use 2 Sprays in each nostril once daily. COMPOUNDED PRESCRIPTION Initiate BiPAP @ 15/9 cm of water with humidification. Mask (per patient preference) optional chin strap (if indicated) , filters, tubing, humidifier and lifetime supplies. Dx. ABDI 327.23 polyethylene glycol 3350(MIRALAX 100 % ORAL POWDER) 17 grams/8 0z water daily ASA LOW DOSE 81MG TAB EC Take one(1) tablet daily. Blood-Glucose Meter,Continuous (DEXCOM G7 PACK PRESS OPERATOR) misc use to check sugars HISTORIES PAST MEDICAL HISTORY Diagnosis Date (HFpEF) heart failure with preserved ejection fraction (HCC) 06/23/2015 Dr. 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) 02/06/2015 Coronary artery calcification seen on CAT scan 01/21/2013 Depressive disorder 03/31/2016 Diverticulosis 08/23/2010 Diverticulosis of colon (without mention of hemorrhage) Edema GERD without esophagitis 09/02/2019 Hearing loss HTN (hypertension) 08/12/2014 Hypertensive kidney disease with stage 3a chronic kidney disease (HCC) 08/12/2014 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) 06/30/2020 Ingrown toenail Morbid obesity (HCC) Obstructive sleep apnea CPAP Other and unspecified hyperlipidemia Other dyspnea and respiratory abnormality Palpitations Primary osteoarthritis of both hips 08/18/2020 Rosacea Symptomatic menopausal or female climacteric states 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 Type II or unspecified type diabetes mellitus without mention of complication, not stated as uncontrolled 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 07/10/2018 Unspecified intestinal obstruction 10/2018 FAMILY HISTORY Problem Relation Age of Onset COPD Mother at 64 yoa Ischemic Heart Disease Father Mi at 61 yoa GI Brother cirrhosis other (AAA rupture) Brother Lung cancer, 49 yoa Hypertension Sister 2 years younger Coronary Artery Disease Sister Stroke Sister Diabetes Sister Cancer Paternal Aunt Cervical cancer Diabetes Maternal Aunt Diabetes Paternal Aunt Diabetes Paternal Grandfather Heart Paternal Uncle other (parkinson) Son 41 SOCIAL HISTORY Social History Tobacco Use Smoking status: Former Packs/day: 2.00 Years: 15.00 Pack years: 30.00 Types: Cigarettes Quit date: 09/10/1991 Years since quittin.3 Smokeless tobacco: Never Vaping Use Vaping Use: Never used Substance Use Topics Alcohol use: No Drug use: No PHYSICAL EXAMINATION BP 108/64 Pulse 77 Resp 18 Wt 98.5 kg (217 lb 3.2 oz) LMP 06/27/2011 SpO2 98% BMI 42.42 kg/m GENERAL EXAM: General appearance: NAD, pleasant. HEENT: NC/AT, nasal congestion absent, no oral lesions, membranes moist. Lungs: CTA bilaterally. CV: RRR nl S1, S2, NEUROLOGICAL EXAM: General: Awake, alert, oriented x3 (person,place,time), speech fluent, no dysarthria; comprehension, naming, repetition intact. CN: PERRL, EOMI and without nystagmus, VFF to confrontation, facial sensation and strength are normal and symmetric, hearing is intact to finger rub bilaterally, palate and tongue movements are intact and symmetric. SCM and trapezius strength normal. Motor: Normal tone, bulk and strength (5/5) bilaterally (throughout extremities x4). Coordination: FNF, COREY, HTS intact. No tremors. Sensation: Light touch intact throughout. No evidence of neglect. Gait: Stable despite hip complaints. Assessment and Plan: ASSESSMENT/PLAN: 1. Dementia without behavioral disturbance, psychotic disturbance, mood disturbance, or anxiety, unspecified dementia severity, unspecified dementia type (HCC) - ICD9: 294.20, ICD10: F03.90 (primary diagnosis) Subjectively feels she is doing well on Namenda 5mg BID. However, obvious deficits on exam including MOCA as above that would suggest need to increase dose. Also cognition is impairing daily activities, including feeling not safe for pt to drive (no longer driving). Discussed with pt and her and will increase Namenda to 10mg BID. SE and ADRs reviewed with pt and . Note will titrate up by 5mg weekly to goal dose of 10mg BID. Encouraged brain exercises. 2. ABDI on CPAP - ICD9: 327.23, V46.8, ICD10: G47.33, Z99.89 Lack of PAP use in setting of known ABDI may be contributing to cognitive complaints. Encouraged pt to restart PAP LILIBETH. Discussed with patient: the physiology of OSAS, medical conditions associated with OSAS (DM, HTN, CAD, Depression, Stroke, Headache...) and treatment options (UPPP, Dental appliances, CPAP...). Advised patient to avoid activities that could harm self or others when tired/sleepy, including driving and/or operating heavy machinery. Encouraged weight loss, and continued compliance with other medications. Discussed with pt need to clean equipment regularly and replace equipment regularly as well. Advised pt to notify us after using PAP for 2 weeks so that we can obtain PAP data download to determine if changes in PAP settings necessary. Akilah Pena MD I spent a total of 40+ minutes on the date of the service which included preparing to see the patient, [id number] patient care, completing clinical documentation, obtaining and/or reviewing separately obtained history, performing a medically appropriate examination, counseling and educating the patient/family/caregiver, ordering medications, tests, or procedures, and communicating results to the patient/family/caregiver. 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 Battery replaced on the right aid under warranty. Return PRN. Jordi Leonadr documented in this encounter [facility] 12-08-2022 History of Present illness Narrative INSIGHT CDM TELEPHONIC OUTREACH Provider Action/FYI: Last CDM outreach contact 12/08- No concerns Looked up ortho surgeons [facility] for [facility]; gave a few name Going on vacation to [facility] in March Baseline: 12/08/22 ADL, FALL, GOAL due: 08/16/2212/08/ 216 lbs Contact made with patient: Yes Patient identified by name and . Discussed care with patient It s nice talking to you again. As a reminder, this is our bi-weekly check-in where I will be asking you questions about your health. This will only take a few minutes of your time. Is this a good time? Yes Symptoms What Chronic Disease(s) does the patient have: CHF and CKD Do you check your blood pressures at home? Yes, Enter readings: no reading today 125/77 Always < 130/80 Do you have new or worse shortness of breath with activity? No SOB with extreme exertion. She can climb a flight of stairs without SOB Do you have new or worsening trouble breathing while lying flat? No Sleeps on no pillows; has a electric recliner Do you have new or worsening swelling of legs, feet or ankles? No Baseline: no swelling Do you check your daily weight at home? Yes, 216 lbs Have you noticed a sudden gain in weight greater than three pounds in a day or three pounds in a week? No and Do you feel like you are dehydrated for any reason, including not being able to eat or drink normally, or having less urine/much darker urine than normal for you? No Hydrates with 64 oz per day Urine wnl ;clear and yellow Do you check your daily weight at home? No Are you having any other symptoms that your PCP needs to know about? No Symptoms: Symptom Escalation IVAN Education Ordered -: No The patient required an escalation for symptom(s)? No Medications Do you have any questions about taking your medication or which medications you should be on? No Do you need any medication refills at this time, including any of the medications you might take only when needed? No Social We would like to make sure you have what you need so that your basic needs are met- including your personal safety, food, housing, transportation and medications? Would you like to speak with a social work steam table attendant to help give you support for any of these needs? No lives with spouse; feels safe +food It can be normal to feel anxious or down during a time like this. Would you like to talk to a mental health professional about how you have been feeling? No Closing Thank you for taking the time to talk with me today. We want to work with you to ensure that we are keeping your medical condition(s) well-controlled and to keep you healthy and out of the doctor's office or hospital. It s also not too late for me to sign you up for automated weekly questionnaires through [employer]. This is an easy way for us to stay connected each week. Are you interested? No, I understand. We can always sign you up in the future if you change your mind. Just as a reminder, will continue to call you every other week to check in on your health. Our calls should take 10-15 minutes or less. Remember, if you have concerns in between our calls, please call your PCP's office right away. Thank you. Enter next patient outreach date for two weeks on the same day of the week as today in the Track Pt Outreach and End outreach. documented in this encounter [facility] 12-05-2022 History of Present illness Narrative INSIGHT CDM TELEPHONIC OUTREACH Provider Action/FYI: lvm x 1 on home and cell Contact made with patient: No - Left message Roberto my name is Catherine Pompa RN your Floor Coverer Apprentice from the [facility] I am calling today for your bi-weekly check in. I am sorry I missed your call. I will reach out to you again tomorrow. (if the third call I will reach out to you again next week) Enter next patient outreach date for the following business day using the Track Pt Outreach. End outreach. documented in this encounter [facility] 11-21-2022 Miscellaneous Notes PA started for Dexcom G7 Sensor through covermymeds. [id number] Melyssa Bateman RN documented in this encounter [facility] 11-15-2022 Miscellaneous Notes Patient calling about this again Please advise Thank you, Beatrice Gary PSS documented in this encounter [facility] 11-15-2022 Miscellaneous Notes Patient is calling again about the message below Also -- 13 days left of DECOM G6, Patient is requesting the DECOM G7 Please advise. Thank you, Beatrice Gary PSS Please see [employer] message below Last office visit 11/09/2022 Dr. Best, I need a new script for Levemir. The old script ran out at the end of last year. My last refill was done Jul.10. I have only 2 injector pens left. Watching my sugar levels come down. Over last 7 days avg. has been 209 and 82% in range. Over last 2 days avg. is 204 and 99%in range. Without significantly changing anything, glucose level is coming down. Apparently the body will do what it wants to do. Thank you, Bhakti (blairt) Patient phones requesting refills as follows: Requested Prescriptions Pending Prescriptions Disp Refills insulin detemir U-100 (LEVEMIR FLEXTOUCH U-100 INSULIN) 100 unit/mL (3 mL) injection pen 30 Each 3 Si units twice a day, adjust dose based on sugars, max daily dose 100 units Please review and advise. Paz Frazier, RN documented in this encounter [facility] 11-09-2022 Instructions Max Best MD - 11/09/2022 3:11 PM EST Assessment / Plan Problem: 1) Diabetes type 2, sugars generally high, they are eating out at restaurants and other nights eating ice cream. I am concerned with how high sugars are, and described how to increase the Levemir based on the sliding scale use. They also need to moderate their eating. She has appointment with me in January 2023 in person. Unchanged 1) Mixed hyperlipidemia, should get better with better sugar control 2) s/p Sleeve gastrectomy 3) CKD stage 3-4, following with Dr. María Vance 4) ABDI, has new BiPAP, using every night, and also with naps as much as possible (sometimes will fall asleep unexpectedly just sitting in a chair). 5) s/p Hip surgery, is walking around now, getting PT, notes it causes significant pain, but keeps at it. 6) s/p COVID vaccine x 4, discussed Paxlovid. 7) Thyroid CA, no labs in last 10 months, will check now. Treatment / Plan: 1) increase the Levemir based on the total amount of sliding scale Novolog needed per day, as I described 2) return to me in January as planned. Max Best MD documented in this encounter [facility] 11-09-2022 History of Present illness Narrative Images from the original note were not included. Virtual Visit utilizing both audio and video components MyChart-Zoom Assessment / Plan Problem: 1) Diabetes type 2, sugars generally high, they are eating out at restaurants and other nights eating ice cream. I am concerned with how high sugars are, and described how to increase the Levemir based on the sliding scale use. They also need to moderate their eating. She has appointment with me in January 2023 in person. Unchanged 1) Mixed hyperlipidemia, should get better with better sugar control 2) s/p Sleeve gastrectomy 3) CKD stage 3-4, following with Dr. María Vance 4) ABDI, has new BiPAP, using every night, and also with naps as much as possible (sometimes will fall asleep unexpectedly just sitting in a chair). 5) s/p Hip surgery, is walking around now, getting PT, notes it causes significant pain, but keeps at it. 6) s/p COVID vaccine x 4, discussed Paxlovid. 7) Thyroid CA, no labs in last 10 months, will check now. Treatment / Plan: 1) increase the Levemir based on the total amount of sliding scale Novolog needed per day, as I described 2) return to me in January as planned. Max Best MD Data Review: diabetes data reviewed below History Diabetes type 2, insulin doses currently: Levemir 20-40, Humalog 14 sugar data reviewed from her Dexcom unit sugars drifting slowly down to around 60s by 6AM 9 of last 13 days sugars high, either restaurant eating or ice cream Hypothyroidism continues to take 175 mcg x 7.5/wk. s/p COVID vaccine x 4 Diabetes History Type (2003): dx diabetes type 2 Control hx Component Hemoglobin A1C Latest Ref Rng & Units 4.3 - 5.6 % 08/29/2019 6.8 02/20/2020 7.5 (H) 06/10/2020 8.2 (H) 12/17/2020 6.0 05/31/2021 7.2 (H) 11/28/2021 6.2 (H) Testing freq (11/11/15): 4x/d Eye hx (07/2015): no DM changes per pt (10/2022): no DM changes per pt Renal hx Component Albumin/Creat Ratio Latest Ref Rng 0 - 30 mg/g 02/16/2010 10 07/05/2010 9 05/08/2011 13 08/08/2013 9 02/02/2015 17 Component BUN Creatinine Latest Ref Rng & Units 7 - 21 mg/dL 0.58 - 0.96 mg/dL 09/13/2015 18 0.91 03/09/2016 16 1.01 06/07/2016 14 0.88 09/08/2017 30 (H) 1.40 (H) 03/27/2018 38 2.01 04/01/2018 27 1.68 12/02/2018 26 1.02 (04/02/18): 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 follows her Liver hx Component Bilirubin, Total Alkaline Phosphatase AST ALT Latest Ref Rng 0.0 - 1.5 mg/dL 40 - 150 U/L 7 - 40 U/L 0 - 45 U/L 07/02/2014 0.2 93 84 (H) 68 (H) 09/21/2014 0.3 74 26 24 06/23/2015 0.3 97 56 (H) 68 (H) 06/24/2015 0.3 89 57 (H) 72 (H) BP hx Vitals 06/24/2015 06/30/2015 09/04/2015 09/13/2015 11/11/2015 SITTING BP 121/64 104/67 120/70 130/80 100/62 (11/11/15): lisinopril 2.5 mg/d, metoprolol 25 mg 2x/d, Neuro hx (11/11/15): numb tingling dysesthesias in feet and legs, gets shaky sweaty with hypoglycemia Vascular hx (11/11/15): no hx [place], stroke Component Latest Ref Rng 02/20/2014 07/02/2014 09/24/2014 Triglyceride 30 - 149 mg/dL 133 134 158 (H) Cholesterol 100 - 199 mg/dL 170 189 186 HDL Cholesterol >55 mg/dL 53 (L) 62 45 (L) LDL Cholesterol 60 - 129 mg/dL 90 100 109 Non HDL Cholesterol 90 - 159 mg/dL 117 127 141 (11/11/15): niacin CR 500 mg 2x/d (06/02/19): no Rx lipids Sleep hx (11/11/15): has ABDI, on BiPAP, never sleeps without it (05/26/16): using BiPAP ever night Exercise hx (11/11/15): no exercise Medications (11/11/15): Victoza 1.8 mg daily, glimepiride 2 mg: AM=1, PM=1/2, metformin 500 mg ii-i-ii, sliding scale Humalog, using 1-3 units at a time. (05/26/16): Lantus 10 units, Victoza 1.8 mg/d, glimepiride 2 mg: AM=1, PM=09/11, metformin 500 mg ii-i-ii (11/28/16): Lantus 10 units, Victoza 1.8 mg/d, glimepiride 2 mg: AM=1, PM=09/11, metformin 500 mg ii-i-ii (04/16/17): Lantus 15 units at bed, Victoza 1.8 mg/d, glimepiride 2mg 2x/d, metformin 500 mg ii-i-ii (05/30/17): Lantus 28 units at bed, and meal Humalog 9-9-9-9 (i.e. taking another 9 units at bedtime snack), Victoza 1.8 mg/d, glimepiride 2mg 2x/d, metformin 500 mg ii-i-ii (06/05/17): Levemir 17 units twice a day, and meal Humalog 12-11-10, plus sliding scale (09/11/17): Levemir 17 AM and HS, meal Humalog 12-11-10-9 (last is for snack), plus sliding scale1 per 20, goal 120 (12/18/17): Levemir 12 units AM & HS, Humalog 8-8-7-6 plus sliding scale, metformin 500mg 2-1-1 (04/02/18): Levemir 12 units AM and HS, and Humalog 8-8-7-6 plus sliding scale, has stopped metformin (05/27/18): Levemir 22 units AM and HS, and Humalog 15-12-14-11 (08/27/18): Levemir 34 units 2x/d, Humalog 18-15-18-15 (12/04/18): Levemir 34 units 2x/d, Humalog 18-15-18-11 (03/06/19): Levemir 17 units in AM, 19 units in PM. 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 Jamey Ibrahim, [facility] Pathology (10/29/09): FNA Atypical cells present in a background of cyst contents, suspicious for papillary thyroid carcinoma (12/15/09): single well-circumscribed nodule in the right inferior lobe, which measured 3.5 cm in greatest dimension. The nodule was extensively hemorrhagic and cystic with a rim of viable material which ranges in appearance from papillary architecture to follicular structures. There is no evidence of a higher grade component. There is no definitive lymphovascular space invasion identified. In some areas, the tumor cells have oncocytic cytoplasm, however, the cells do not meet criteria for tall-cell variant of papillary thyroid carcinoma. Scan (02/24/10): post-Rx 131-Iodine scan, SIDDIQI (02/16/10): Rx 102.4 mCi 131-Iodine Thyroglobulin Component Thyroglobulin TG Antibody Screen Latest Ref Rng & Units 0.8 - 49.0 ng/mL <14.4 IU/mL 11/05/2009 75.7 (H) 1.0 01/18/2010 <0.2 (L) 1.1 02/16/2010 0.3 (L) 1.0 07/05/2010 <0.2 (L) 1.3 12/27/2010 <0.2 (L) 1.3 05/08/2011 <0.2 (L) 1.1 07/24/2011 <0.2 (L) 1.5 01/23/2012 <0.2 (L) 1.0 07/27/2012 <0.2 (L) <1.0 02/18/2013 <0.2 (L) <1.0 08/12/2013 <0.2 (L) <1.0 02/16/2014 <0.2 (L) <1.0 09/24/2014 <0.2 (L) <1.0 03/08/2015 <0.2 (L) 1.3 12/10/2015 <0.2 (L) <1.0 05/25/2016 <0.2 (L) <1.0 11/15/2016 <0.2 (L) 1.3 Vitamin D Component Vitamin D 25 Hydroxy Latest Ref Rng 31.0 - 80.0 ng/mL 01/18/2010 39.7 01/17/2011 48.1 07/24/2011 50.6 01/23/2012 40.2 02/18/2013 43.0 08/12/2013 40.0 02/16/2014 39.5 09/24/2014 36.0 Ultrasound (01/18/10): no suspicious adenopathy along great vessels or in lateral neck on either side. No masses in thyroid bed. (11/11/15): no suspicious adenopathy along great vessels or in lateral neck on either side. No masses in thyroid bed. (11/28/16): no suspicious adenopathy along great vessels or in lateral neck on either side. No masses in thyroid bed. ROS PHYSICAL EXAM PAST MED / SURG / FAMILY / SOCIAL HISTORY PAST MEDICAL HISTORY Diagnosis Date (HFpEF) heart failure with preserved ejection fraction (HCC) 06/23/2015 Dr. 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) 02/06/2015 Coronary artery calcification seen on CAT scan 01/21/2013 Depressive disorder 03/31/2016 Diverticulosis 08/23/2010 Diverticulosis of colon (without mention of hemorrhage) Edema GERD without esophagitis 09/02/2019 Hearing loss HTN (hypertension) 08/12/2014 Hypertensive kidney disease with stage 3a chronic kidney disease (HCC) 08/12/2014 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) 06/30/2020 Ingrown toenail Morbid obesity (HCC) Obstructive sleep apnea CPAP Other and unspecified hyperlipidemia Other dyspnea and respiratory abnormality Palpitations Primary osteoarthritis of both hips 08/18/2020 Rosacea Symptomatic menopausal or female climacteric states 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 Type II or unspecified type diabetes mellitus without mention of complication, not stated as uncontrolled 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 07/10/2018 Unspecified intestinal obstruction 10/2018 PAST SURGICAL HISTORY Procedure Laterality Date APPENDECTOMY 05/20/2001 open ARTHRP KNE CONDYLE&PLATU MEDIAL&LAT COMPARTMENTS Left 08/18/2014 Knee replacement, total left ARTHRP KNE CONDYLE&PLATU MEDIAL&LAT COMPARTMENTS Right 06/12/2012 total right knee arthroplasty ; THYROIDECTOMY TOTAL OR COMPLETE Bilateral 12/15/2009 Papillary Ca CHOLECYSTECTOMY 05/20/2001 Cholecystectomy-lap COLONOSCOPY FLX DX W/COLLJ SPEC WHEN PFRMD 06/06/2004 COLONOSCOPY FLX DX W/COLLJ SPEC WHEN PFRMD 08/23/2010 EXCISION EXCESSIVE SKIN & SUBQ TISSUE OTHER AREA 01/17/2002 Abdominoplasty EXPLORATORY LAPAROTOMY, CELIOTOMY-SP 06/24/2020 Takedown of enteroprosthetic fistula.Small bowel resection anastosmosis. Removal infected mesh. Recurrent vental hernia repair. HIP ARTHROSCOPY W/SYNOVECTOMY Right 09/19/2021 exc.seroma; gluteus repair; rotium augmentation; trochanteric bursectomy, iliotibial band resection LAPAROCOPIC SLEEVE GASTRECTOMY 03/10/2019 Extensive laparoscopic lysis of adhesions. EGD. Lap. TAP block. LEFT HEART CATH,PERCUTANEOUS 09/13/2017 no significant CAD NEPHRECTOMY PARTIAL Right 03/1991 Right side for benign tumor, small lesion removed REPAIR FIRST ABDOMINAL WALL HERNIA 09/25/2005 7 times total RPR 1ST INCAL/VNT HERNIA INCARCERATED 06/11/2007 with mesh TOTAL ABDOMINAL HYSTERECT W/WO RMVL TUBE OVARY 05/20/2001 PER, for fibroids and BSO TOTAL HIP REPLACEMENT Right 10/20/2020 anterior minimally invasive right total hip FAMILY HISTORY Problem Relation Age of Onset COPD Mother at 64 yoa Ischemic Heart Disease Father Mi at 61 yoa GI Brother cirrhosis other (AAA rupture) Brother Lung cancer, 49 yoa Hypertension Sister 2 years younger Coronary Artery Disease Sister Stroke Sister Diabetes Sister Cancer Paternal Aunt Cervical cancer Diabetes Maternal Aunt Diabetes Paternal Aunt Diabetes Paternal Grandfather Heart Paternal Uncle other (parkinson) Son 41 Social History Tobacco Use Smoking status: Former Packs/day: 2.00 Years: 15.00 Pack years: 30.00 Types: Cigarettes Quit date: 09/10/1991 Years since quittin.1 Smokeless tobacco: Never Vaping Use Vaping Use: Never used Substance Use Topics Alcohol use: No Drug use: No MEDICATIONS & ALLERGIES Prior to Admission Medications: Current Outpatient Prescriptions on File Prior to Visit: HYDROcodone-Acetaminophen (NORCO) 10-325 mg per tablet Take 1 tablet by mouth every 6 hours as needed for Pain. fluticasone (FLONASE) 50 mcg/actuation nasal spray Use 2 Sprays in each nostril once daily. codeine-guaiFENesin (ROBITUSSIN AC) 10-100 mg/5 mL syrup Take 5-10 mL by mouth four times daily as needed for Cough. May cause drowsiness. furosemide (LASIX) 20 mg tablet Take 1 tablet by mouth twice daily. LORazepam (ATIVAN) 0.5 mg tab Take 1 tablet by mouth twice daily as needed. gabapentin (NEURONTIN) 300 mg capsule 2 AT HS AND ONE IN AM potassium chloride (K-TAB) 10 mEq tablet Take 1 tablet by mouth once daily. nitroglycerin sublingual (NITROQUICK) 0.4 mg SL tablet Dissolve 1 tablet under the tongue as needed. FOR CHEST PAIN. IF NO RELIEF CALL 911 Insulin Lispro, Human, (HUMALOG KWIKPEN) 100 unit/mL inpn 1-9 units before mealtime and at bedtime, according to sliding scale Insulin Wales, Disposable, (TIFFANIE PEN NEEDLE) 32 x 5/32 ndle use 4 times a day with Humalog pen blood sugar diagnostic (ACCU-CHEK SMARTVIEW TEST STRIP) test strip Use as instructed to test blood glucose 4 times daily (sugars currently uncontrolled, CKD stage 3) glimepiride (AMARYL) 2 mg tablet 1 pill in morning, and 1/2 pill at supper Lancets lancets Testing twice a day. DX:250.00 SYNTHROID 175 mcg tablet Take 1 tablet by mouth once daily. Take 8 tablets per week metFORMIN (GLUCOPHAGE) 500 mg tablet Take by mouth. take 2 in the morning, 1 at supper, 1 at bedtime lisinopril 2.5 mg tablet Take 1 tablet by mouth once daily. liraglutide (VICTOZA 3-DEVIN) 0.6 mg/0.1 mL (18 mg/3 mL) pnij Inject 1.8 mg subcutaneously once daily. metoprolol tartrate, short acting, (LOPRESSOR) 25 mg tablet Take 1 tablet by mouth twice daily. blood sugar diagnostic (CONTOUR TEST STRIPS) test strip Test blood sugar(s) 4 times daily. Dx: 250.0. Insulin: No niacin 500 mg CR capsule Take 1 capsule by mouth twice daily. [id number]-epa-fish oil-D3 360 mg-1,200 mg -1,000 unit cap Take by mouth three times daily. Insulin Wales, Disposable, (PEN NEEDLE) 29 x 1/2 ndle Use 1 time daily with injectable pen glimepiride (AMARYL) 1 mg tablet Take 1 tablet by mouth once daily. As directed (Patient taking differently: Take 2 mg by mouth once daily. As directed) COMPOUNDED PRESCRIPTION Initiate BiPAP @ 15/9 cm of water with humidification. Mask (per patient preference) optional chin strap (if indicated) , filters, tubing, humidifier and lifetime supplies. Dx. ABDI 327.23 diphenhydrAMINE (BENADRYL ALLERGY) 25 mg tablet Take 1 tablet by mouth every 6 hours as needed for Itching/Rash. COMPOUNDED PRESCRIPTION Pen Needle BD Ultra Fine 29 g 12.7 mm Twice a day as directed 250.00 insulin needles, DISPOSABLE, (PEN NEEDLE) 31 X 5/16 Ndle use as directed twice daily Omeprazole Magnesium (PRILOSEC) 10 mg SuDR Take by mouth as needed. Cholecalciferol, Vitamin D3, 1,000 unit ORAL Tab Take by mouth once daily. metroNIDAZOLE (METROGEL) 1 % TOPICAL gel Apply to affected area once daily. blood sugar diagnostic (ASCENSIA MICROFILL) Misc test strip Check before and after each meal and at hs polyethylene glycol 3350(MIRALAX 100 % ORAL POWDER) 17 grams/8 0z water daily ASA LOW DOSE 81MG TAB EC Take one(1) tablet daily. No current facility-administered medications on file prior to visit. ALLERGIES Allergen Reactions Adhesive Tape (Jamila* Other: See Comments Contact celluitis Crestor [Rosuvastat* Intolerance Lantus [Insulin Gla* Intolerance burning at local injection site Nickel Rash in jewelry; also Palladium which cross reacts with nickel in some cases. Palladium Rash Pravastatin Intolerance Muscle cramps Toradol [Ketorolac] Hives documented in this encounter [facility] 11-09-2022 Evaluation note Diagnosis Type 2 diabetes mellitus with stage 3a chronic kidney disease, with long-term current use of insulin (HCC)- Primary documented in this encounter [facility]02-27-2023 History of Present illness Narrative* Catherine Pompa RN - 11/06/2022 2:54 PM EST INSIGHT CDM TELEPHONIC OUTREACH Provider Action/FYI: lvm x1 PCP 10/24/22 Contact made with patient: No - Left message Hello my name is Catehrine Pompa RN your Floor Coverer Apprentice from the [facility] I am calling today for your bi-weekly check in. I am sorry I missed your call. I will reach out to you again tomorrow. (if the third call I will reach out to you again next week) Enter next patient outreach date for the following day using the Track Pt Outreach. End outreach. [facility] History of Present illness Narrative* Jesus Davila MD - 10/24/2022 1:08 PM EST This note was created using BookingNestter. Subjective Bhakti Kirkpatrick is a 77 year old female. 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 She was evaluated with labs and joint aspiration confirming a diagnosis of gout. She was started on indomethacin 75 mg ER capsule daily x 14 days and symptoms resolved. She was advised to see me for follow up regarding gout and hyperuricemia She also raised concern for worsening acid reflux, dysphagia, and regurgitation of ingested solids or liquids for several months, despite regular PPI use. Review of Systems Constitutional: Negative for appetite change and unexpected weight change. Respiratory: Negative. Cardiovascular: Positive for leg swelling. Negative for chest pain and palpitations. Gastrointestinal: Negative for abdominal pain, blood in stool, nausea and vomiting. See HPI. ACTIVE PROBLEM LIST Edema Abdi Treated With Bipap Arteriosclerotic Heart Disease (Ashd) Hypertensive Heart Disease With Heart Failure and Stage 4 Chronic Kidney Disease (Hcc) Degenerative Arthritis of Knee Myalgia Hyperlipidemia (Hfpef) Heart Failure With Preserved Ejection Fraction (Hcc) Fatty Liver History of Thyroid Cancer Type 2 Diabetes Mellitus With Stage 4 Chronic Kidney Disease, With Long-Term Current Use of Insulin([facility]) Depressive Disorder Chronic Kidney Disease, Stage IV (Severe) ([facility]) S/P Laparoscopic Sleeve Gastrectomy Gerd Without Esophagitis Sensory Hearing Loss, Bilateral Class 3 Severe Obesity With Body Mass Index (Bmi) of 45.0 to 49.9 in Adult ([facility]) Type 2 Diabetes Mellitus With Diabetic Neuropathy, With Long-Term Current Use of Insulin ([facility]) Primary Osteoarthritis of Both Hips Vertigo Cognitive Impairment Circadian Rhythm Sleep Disorder, Irregular Sleep Wake Type Anemia Acute Gout Involving Toe of Right Foot Current Outpatient Medications Medication Sig memantine (NAMENDA) 5 mg tablet Take 1 tablet by mouth twice daily. diclofenac (VOLTAREN) 1 % topical gel Apply 4 g to affected area four times daily. metoprolol tartrate, short acting, (LOPRESSOR) 25 mg tablet Take 1 tablet by mouth twice daily. alpha lipoic acid 200 mg cap Take 1 capsule by mouth three times daily. For neuropathy. furosemide (LASIX) 40 mg tablet Take 1 tablet by mouth three times daily. Per Dr. Lilian Vance, nephrology. gabapentin (NEURONTIN) 300 mg capsule Take 2 capsules by mouth every morning for 180 days. gabapentin (NEURONTIN) 400 mg capsule Take 2 capsules by mouth daily at bedtime for 180 days. DULoxetine (CYMBALTA) 60 mg capsule Take 1 capsule by mouth once daily. Blood-Glucose Sensor (DEXCOM G6 SENSOR) claudia change every 10 days Blood-Glucose Transmitter (DEXCOM G6 TRANSMITTER) claudia change every 3 weeks levothyroxine (SYNTHROID) 175 mcg tablet 7 & 1/2 pills per week (one a day with extra half pillon Sunday) blood sugar diagnostic (ACCU-CHEK ANNALISE PLUS TEST STRP) test strip Use to check blood sugar 4 timesdaily insulin detemir U-100 (LEVEMIR FLEXTOUCH U-100 INSULIN) 100 unit/mL (3 mL) injection pen 40 units twice a day, adjust dose based on sugars, max daily dose 100 units (Patient taking differently: 20 units in AM, 40 units in PM) insulin aspart U-100 (NOVOLOG FLEXPEN U-100 INSULIN) 100 unit/mL (3 mL) 17 in AM, 13 at lunch, 19 at supper, 10 at bed, plus extra based on sugars, max daily dose 100 units (Patient taking differently: 14 in AM, 14 at lunch, 14 at supper, 10 at bed, plus extra based on sugars, max daily dose 100 units plus sliding scale) nitroglycerin sublingual (NITROQUICK) 0.4 mg SL tablet Dissolve 1 tablet under the tongue as needed. FOR CHEST PAIN. IF NO RELIEF CALL 911 Insulin [place], Disposable, (BD ULTRAFINE III MINI PEN) 31 gauge x 3/16 1 Each as directed. 6 times daily. Dx:E11.40. On multiple insulin doses. Lancets (ACCU-CHEK SOFTCLIX LANCETS) lancets Checking blood sugars 4 times daily. Dx: E11.42 CPAP Auto bilevel with humidity set as follows: IPAP max 24, EPAP min 8 and PS 4-6 cmH2O. Comfort settings TiMax 2.0, TiMin 0.3, Trigger -M, Cycle-M. Continue using ResMed N20 nasal mask interface. melatonin 10 mg ODT Take 1 tablet by mouth at bedtime as needed. docusate sodium (COLACE ORAL) Take by mouth. lactulose (DUPHALAC, CONSTULOSE) 10 gram/15 mL solution 30 mL q 24 HR. ferrous sulfate 325 mg (65 mg iron) tablet Take 325 mg by mouth twice daily with meals. BIPAP calcium citrate (CITRACAL ORAL) Take 2 tablets by mouth twice daily. multivit-min/iron/folic acid/K (BARIATRIC MULTIVITAMINS ORAL) Take by mouth. fluticasone (FLONASE) 50 mcg/actuation nasal spray Use 2 Sprays in each nostril once daily. COMPOUNDED PRESCRIPTION Initiate BiPAP @ 15/9 cm of water with humidification. Mask (per patient preference) optional chin strap (if indicated) , filters, tubing, humidifier and lifetime supplies. Dx. ABDI 327.23 polyethylene glycol 3350(MIRALAX 100 % ORAL POWDER) 17 grams/8 0z water daily ASA LOW DOSE 81MG TAB EC Take one(1) tablet daily. pantoprazole DR (PROTONIX) 20 mg tablet Take 1 tablet by mouth twice daily. evolocumab (REPATHA SURECLICK) 140 mg/mL pen injector Inject 140 mg subcutaneously every 2 weeks. Per [facility]. colchicine 0.6 mg tablet Take 2 tabs by mouth, followed by 1 tab one hour later for gout flare. Mayrepeat in 1 week. allopurinol (ZYLOPRIM) 100 mg tablet Take 2 tablets by mouth once daily. For gout. No current facility-administered medications for this visit. Objective BP 112/60 (BP Site: Left Arm, BP Position: Sitting, BP Cuff Size: Large Adult) Pulse 80 Temp 36.1 C (96.9 F) (Temporal) Resp 12 Wt 102 kg (224 lb 12.8 oz) LMP 06/27/2011 BMI 43.90 kg/m Physical Exam Constitutional: General: She is not in acute distress. Appearance: She is not ill-appearing. Cardiovascular: Rate and Rhythm: Normal rate and regular rhythm. Heart sounds: No murmur heard. No gallop. Pulmonary: Breath sounds: Normal breath sounds. Musculoskeletal: Right hand: Deformity present. No tenderness. Decreased range of motion. Left hand: Deformity present. No tenderness. Decreased range of motion. Right lower le+ Pitting Edema present. Left lower le+ Pitting Edema present. Right foot: No deformity, tenderness or bony tenderness. Left foot: No deformity or bony tenderness. Comments: Few nodules in DIP joints of both 5th digits, possibly tophaceous. Neurological: Mental Status: She is alert. Assessment and Plan 1. Acute gout involving toe of right foot, unspecified cause - ICD9: 274.01, ICD10: M10.9 (primary diagnosis) Shared Medical Decision Making was done: Medication: allopurinol and colchicine. Benefits: Medication may help reduce gout attacks in the care home. Risks: Possible side effects were discussed including acute gout, rash. Possible interactions: n/a. Warnings: hypersensitivity. Cost: low. - COLCHICINE 0.6 MG TABLET. Discussed medication dosage, usage, goals of therapy, and side effects. - ALLOPURINOL 100 MG TABLET. 200 mg daily. Discussed medication dosage, usage, goals of therapy, and side effects. - URIC ACID BLOOD 2. GERD without esophagitis - ICD9: 530.81, ICD10: K21.9 - PANTOPRAZOLE 20 MG TABLET,DELAYED RELEASE - CONSULT TO GASTROENTEROLOGY 3. Hyperlipidemia, unspecified hyperlipidemia type - ICD9: 272.4, ICD10: E78.5 - REPATHA SURECLICK 140 MG/ML SUBCUTANEOUS PEN INJECTOR. Started by cardiology. 4. Dysphagia, unspecified type - ICD9: 787.20, ICD10: R13.10 - CONSULT TO GASTROENTEROLOGY Jesus Davila MD [facility] Miscellaneous Notes* Telephone Encounter - Belinda Clark APRN.CNP - 10/20/2022 4:09 PM EST RF provided to last until time of upcoming appointment with Dr. Pena on 12/22/22. * Telephone Encounter - CATE Turner - 10/20/2022 2:36 PM EST Patient has been identified by name and date of : Yes Patient phones for refill(s): Requested Prescriptions Pending Prescriptions Disp Refills memantine (NAMENDA) 5 mg tablet 60 tablet 2 Sig: Take 1 tablet by mouth twice daily. Date of last office visit in primary care: [facility] () 09/14/21 with KD Appointment scheduled 12/22 [facility] Notes: Assessment/Plan: R41.89 Cognitive impairment (primary encounter diagnosis) Comment: Modified MOCA repeated today due to virtual platform and without significant change since previous visit. Previously started on Namenda and has since increased to 5mg BID. Patient noting bilateral intermittent hand tremors roughly one week after starting medication. Of note, patient has had a bilateral tremor in the past at both rest and with activity, though not seen on previous exam. Exam completed virtually today and tremor not seen, however, difficult to determine if tremor present. Pt and reporting tremor not present today. Discussed option of decreasing medication to determine if there is improvement in tremor as timing is related to initiation of medication. If no improvement can continue medication and consider increasing dose. Patient and to notify officeof changes in roughly two weeks. Recommend completing mentally stimulating activities for brain exercise (i.e. crossword puzzles, social interactions...) as well as regular physical exercise within patient limitations. Last 2 Encounter Wt Readings: Date: Wt: 08/24/2022 98.4 kg (217 lb) 06/09/2022 102.2 kg (225 lb 3.2 oz) Please advise. Thank you. CATE Turner [facility] History of Present illness Narrative* Catherine Pompa RN - 10/09/2022 4:02 PM EST INSIGHT CDM TELEPHONIC OUTREACH Provider Action/FYI: no concerns Contact made with patient: Yes Patient identified by name and . Discussed care with patient It s nice talking to you again. As a reminder, this is our bi-weekly check-in where I will be asking you questions about your health. This will only take a few minutes of your time. Is this a good time? Yes Symptoms What Chronic Disease(s) does the patient have: CHF and CKD Do you check your blood pressures at home? Yes, Enter readings: < 130/80 Do you have new or worse shortness of breath with activity? No Do you have new or worsening trouble breathing while lying flat? No Do you have new or worsening swelling of legs, feet or ankles? No Do you feel like you are dehydrated for any reason, including not being able to eat or drink normally, or having less urine/much darker urine than normal for you? No Hydrates with 64 oz per day Urine wnl ;clear and yellow Do you check your daily weight at home? Yes, Have you noticed a sudden gain in weight greater than three pounds in a day or three pounds in a week? No 216 lbs Are you having any other symptoms that your PCP needs to know about? No Symptoms: Symptom Escalation IVAN Education Ordered -: Yes CHF,CKD The patient required an escalation for symptom(s)? No Medications Do you have any questions about taking your medication or which medications you should be on? No Do you need any medication refills at this time, including any of the medications you might take only when needed? No Social We would like to make sure you have what you need so that your basic needs are met- including your personal safety, food, housing and medications? Would you like to speak with a social work steam table attendant to help give you support for any of these needs? No It can be normal to feel anxious or down during a time like this. Would you like to talk to a mental health professional about how you have been feeling? No Closing Thank you for taking the time to talk with me today. We want to work with you to ensure that we arekeeping your medical condition(s) well-controlled and to keep you healthy and out of the doctor's office or hospital. It s also not too late for me to sign you up for automated weekly questionnaires through [employer]. This is an easy way for us to stay connected each week. Are you interested? No, I understand. We can always sign you up in the future if you change your mind. Just as a reminder, will continue to call you every other week to check in on your health. Our calls should take 10-15 minutes or less. Remember, if you have concerns in between our calls, please call your PCP's office right away. Thank you. Enter next patient outreach date for two weeks on the same day of the week as today in the Track PtOutreach and End outreach. [facility] Instructions* Patient Instructions* Max Best MD - 09/28/2022 2:22 PM EST Assessment / Plan Problem: 1) Diabetes type 2, sugars going overnight, we've backed off too far off the Levemir. I'll ask her to increase it to get sugars to stay less than 200. Unchanged 1) Mixed hyperlipidemia, should get better with better sugar control 2) s/p Sleeve gastrectomy 3) CKD stage 3-4, following with Dr. María Vance 4) ABDI, has new BiPAP, using every night, and also with naps as much as possible (sometimes will fall asleep unexpectedly just sitting in a chair). 5) s/p Hip surgery, is walking around now, getting PT, notes it causes significant pain, but keeps at it. 6) s/p COVID vaccine x 4, discussed Paxlovid. 7) Thyroid CA, no labs in last 10 months, will check now. Treatment / Plan: 1) increase the bedtime Levemir to 45 units and continue increasing by 5 units at a time until sugars overnight are staying below 200. 2) return to me in 6 weeks by virtual visit Max Best MD [facility] History of Present illness Narrative* Max Best MD - 09/28/2022 1:45 PM EST Images from the original note were not included. Virtual Visit utilizing both audio and video components MyChart-Zoom Assessment / Plan Problem: 1) Diabetes type 2, sugars going overnight, we've backed off too far off the Levemir. I'll ask her to increase it to get sugars to stay less than 200. Unchanged 1) Mixed hyperlipidemia, should get better with better sugar control 2) s/p Sleeve gastrectomy 3) CKD stage 3-4, following with Dr. María Vance 4) ABDI, has new BiPAP, using every night, and also with naps as much as possible (sometimes will fall asleep unexpectedly just sitting in a chair). 5) s/p Hip surgery, is walking around now, getting PT, notes it causes significant pain, but keeps at it. 6) s/p COVID vaccine x 4, discussed Paxlovid. 7) Thyroid CA, no labs in last 10 months, will check now. Treatment / Plan: 1) increase the bedtime Levemir to 45 units and continue increasing by 5 units at a time until sugars overnight are staying below 200. 2) return to me in 6 weeks by virtual visit Max Best MD Data Review: diabetes data reviewed below History Diabetes type 2, insulin doses currently: Levemir 20-40, Humalog 14-14-14 sugar data reviewed from her Dexcom unit sugars drifting slowly down to around 60s by 6AM Hypothyroidism continues to take 175 mcg x 7.5/wk. s/p COVID vaccine x 4 Diabetes History Type (2003): dx diabetes type 2 Control hx Component Hemoglobin A1C Latest Ref Rng & Units 4.3 - 5.6 % 08/29/2019 6.8 02/20/2020 7.5 (H) 06/10/2020 8.2 (H) 12/17/2020 6.0 05/31/2021 7.2 (H) 11/28/2021 6.2 (H) Testing freq (11/11/15): 4x/d Eye hx (07/2015): no DM changes per pt Renal hx Component Albumin/Creat Ratio Latest Ref Rng 0 - 30 mg/g 02/16/2010 10 07/05/2010 9 05/08/2011 13 08/08/2013 9 02/02/2015 17 Component BUN Creatinine Latest Ref Rng & Units 7 - 21 mg/dL 0.58 - 0.96 mg/dL 09/13/2015 18 0.91 03/09/2016 16 1.01 06/07/2016 14 0.88 09/08/2017 30 (H) 1.40 (H) 03/27/2018 38 2.01 04/01/2018 27 1.68 12/02/2018 26 1.02 (04/02/18): 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 follows her Liver hx Component Bilirubin, Total Alkaline Phosphatase AST ALT Latest Ref Rng 0.0 - 1.5 mg/dL 40 - 150 U/L 7 - 40 U/L 0 - 45 U/L 07/02/2014 0.2 93 84 (H) 68 (H) 09/21/2014 0.3 74 26 24 06/23/2015 0.3 97 56 (H) 68 (H) 06/24/2015 0.3 89 57 (H) 72 (H) BP hx Vitals 06/24/2015 06/30/2015 09/04/2015 09/13/2015 11/11/2015 SITTING BP 121/64 104/67 120/70 130/80 100/62 (11/11/15): lisinopril 2.5 mg/d, metoprolol 25 mg 2x/d, Neuro hx (11/11/15): numb tingling dysesthesias in feet and legs, gets shaky sweaty with hypoglycemia Vascular hx (11/11/15): no hx [place], stroke Component Latest Ref Rng 02/20/2014 07/02/2014 09/24/2014 Triglyceride 30 - 149 mg/dL 133 134 158 (H) Cholesterol 100 - 199 mg/dL 170 189 186 HDL Cholesterol >55 mg/dL 53 (L) 62 45 (L) LDL Cholesterol 60 - 129 mg/dL 90 100 109 Non HDL Cholesterol 90 - 159 mg/dL 117 127 141 (11/11/15): niacin CR 500 mg 2x/d (06/02/19): no Rx lipids Sleep hx (11/11/15): has ABDI, on BiPAP, never sleeps without it (05/26/16): using BiPAP ever night Exercise hx (11/11/15): no exercise Medications (11/11/15): Victoza 1.8 mg daily, glimepiride 2 mg: AM=1, PM=2, metformin 500 mg ii-i-ii, sliding scale Humalog, using 1-3 units at a time. (05/26/16): Lantus 10 units, Victoza 1.8 mg/d, glimepiride 2 mg: AM=1, PM=1/2, metformin 500 mg ii-i-ii (11/28/16): Lantus 10 units, Victoza 1.8 mg/d, glimepiride 2 mg: AM=1, PM=1/2, metformin 500 mg ii-i-ii (04/16/17): Lantus 15 units at bed, Victoza 1.8 mg/d, glimepiride 2mg 2x/d, metformin 500 mg ii-i-ii (05/30/17): Lantus 28 units at bed, and meal Humalog 9-9-9-9 (i.e. taking another 9 units at bedtimesnack), Victoza 1.8 mg/d, glimepiride 2mg 2x/d, metformin 500 mg ii-i-ii (06/05/17): Levemir 17 units twice a day, and meal Humalog 12-11-10, plus sliding scale (09/11/17): Levemir 17 AM and HS, meal Humalog 12-11-10-9 (last is for snack), plus sliding scale1 per 20, goal 120 (12/18/17): Levemir 12 units AM & HS, Humalog 8-8-7-6 plus sliding scale, metformin 500mg 2-1-1 (04/02/18): Levemir 12 units AM and HS, and Humalog 8-8-7-6 plus sliding scale, has stopped metformin (05/27/18): Levemir 22 units AM and HS, and Humalog 15-12-14-11 (08/27/18): Levemir 34 units 2x/d, Humalog 18-15-18-15 (12/04/18): Levemir 34 units 2x/d, Humalog 18-15-18-11 (03/06/19): Levemir 17 units in AM, 19 units in PM. 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 Jamey Ibrahim, [facility] Pathology (10/29/09): FNA Atypical cells present in a background of cyst contents, suspicious for papillary thyroid carcinoma (12/15/09): single well-circumscribed nodule in the right inferior lobe, which measured 3.5 cm in greatest dimension. The nodule was extensively hemorrhagic and cystic with a rim of viable material which ranges in appearance from papillary architecture to follicular structures. There is no evidence of a higher grade component. There is no definitive lymphovascular space invasion identified. In some areas, the tumor cells have oncocytic cytoplasm, however, the cells do not meet criteria for tall-cell variant of papillary thyroid carcinoma. Scan (02/24/10): post-Rx 131-Iodine scan, SIDDIQI (02/16/10): Rx 102.4 mCi 131-Iodine Thyroglobulin Component Thyroglobulin TG Antibody Screen Latest Ref Rng & Units 0.8 - 49.0 ng/mL <14.4 IU/mL 11/05/2009 75.7 (H) 1.0 01/18/2010 <0.2 (L) 1.1 02/16/2010 0.3 (L) 1.0 07/05/2010 <0.2 (L) 1.3 12/27/2010 <0.2 (L) 1.3 05/08/2011 <0.2 (L) 1.1 07/24/2011 <0.2 (L) 1.5 01/23/2012 <0.2 (L) 1.0 07/27/2012 <0.2 (L) <1.0 02/18/2013 <0.2 (L) <1.0 08/12/2013 <0.2 (L) <1.0 02/16/2014 <0.2 (L) <1.0 09/24/2014 <0.2 (L) <1.0 03/08/2015 <0.2 (L) 1.3 12/10/2015 <0.2 (L) <1.0 05/25/2016 <0.2 (L) <1.0 11/15/2016 <0.2 (L) 1.3 Vitamin D Component Vitamin D 25 Hydroxy Latest Ref Rng 31.0 - 80.0 ng/mL 01/18/2010 39.7 01/17/2011 48.1 07/24/2011 50.6 01/23/2012 40.2 02/18/2013 43.0 08/12/2013 40.0 02/16/2014 39.5 09/24/2014 36.0 Ultrasound (01/18/10): no suspicious adenopathy along great vessels or in lateral neck on either side. No masses in thyroid bed. (11/11/15): no suspicious adenopathy along great vessels or in lateral neck on either side. No massesin thyroid bed. (11/28/16): no suspicious adenopathy along great vessels or in lateral neck on either side. No masses in thyroid bed. ROS PHYSICAL EXAM PAST MED / SURG / FAMILY / SOCIAL HISTORY PAST MEDICAL HISTORY Diagnosis Date (HFpEF) heart failure with preserved ejection fraction (HCC) 06/23/2015 Dr. 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 Arteriosclerotic heart disease (ASHD) 09/13/2017 CKD stage 3 due to type 2 diabetes mellitus (HCC) 02/06/2015 Coronary artery calcification seen on CAT scan 01/21/2013 Depressive disorder 03/31/2016 Diverticulosis 08/23/2010 Diverticulosis of colon (without mention of hemorrhage) Edema GERD without esophagitis 09/02/2019 Hearing loss HTN (hypertension) 08/12/2014 Hypertensive kidney disease with stage 3a chronic kidney disease (HCC) 08/12/2014 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) 06/30/2020 Ingrown toenail Morbid obesity (HCC) Obstructive sleep apnea CPAP Other and unspecified hyperlipidemia Other dyspnea and respiratory abnormality Palpitations Primary osteoarthritis of both hips 08/18/2020 Rosacea Symptomatic menopausal or female climacteric states 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 Type II or unspecified type diabetes mellitus without mention of complication, not stated as uncontrolled 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 07/10/2018 Unspecified intestinal obstruction 10/2018 PAST SURGICAL HISTORY Procedure Laterality Date APPENDECTOMY 05/20/2001 open ARTHRP KNE CONDYLE&PLATU MEDIAL&LAT COMPARTMENTS Left 08/18/2014 Knee replacement, total left ARTHRP KNE CONDYLE&PLATU MEDIAL&LAT COMPARTMENTS Right 06/12/2012 total right knee arthroplasty ; THYROIDECTOMY TOTAL OR COMPLETE Bilateral 12/15/2009 Papillary Ca CHOLECYSTECTOMY 05/20/2001 Cholecystectomy-lap COLONOSCOPY FLX DX W/COLLJ SPEC WHEN PFRMD 06/06/2004 COLONOSCOPY FLX DX W/COLLJ SPEC WHEN PFRMD 08/23/2010 EXCISION EXCESSIVE SKIN & SUBQ TISSUE OTHER AREA 01/17/2002 Abdominoplasty EXPLORATORY LAPAROTOMY, CELIOTOMY-SP 06/24/2020 Takedown of enteroprosthetic fistula.Small bowel resection anastosmosis. Removal infected mesh. Recurrent vental hernia repair. HIP ARTHROSCOPY W/SYNOVECTOMY Right 09/19/2021 exc.seroma; gluteus repair; rotium augmentation; trochanteric bursectomy, iliotibial band resection LAPAROCOPIC SLEEVE GASTRECTOMY 03/10/2019 Extensive laparoscopic lysis of adhesions. EGD. Lap. TAP block. LEFT HEART CATH,PERCUTANEOUS 09/13/2017 no significant CAD NEPHRECTOMY PARTIAL Right 03/1991 Right side for benign tumor, small lesion removed REPAIR FIRST ABDOMINAL WALL HERNIA 09/25/2005 7 times total RPR 1ST INCAL/VNT HERNIA INCARCERATED 06/11/2007 with mesh TOTAL ABDOMINAL HYSTERECT W/WO RMVL TUBE OVARY 05/20/2001 PER, for fibroids and BSO TOTAL HIP REPLACEMENT Right 10/20/2020 anterior minimally invasive right total hip FAMILY HISTORY Problem Relation Age of Onset COPD Mother at 64 yoa Ischemic Heart Disease Father Mi at 61 yoa GI Brother cirrhosis other (AAA rupture) Brother Lung cancer, 49 yoa Hypertension Sister 2 years younger Coronary Artery Disease Sister Stroke Sister Diabetes Sister Cancer Paternal Aunt Cervical cancer Diabetes Maternal Aunt Diabetes Paternal Aunt Diabetes Paternal Grandfather Heart Paternal Uncle other (parkinson) Son 41 Social History Tobacco Use Smoking status: Former Packs/day: 2.00 Years: 15.00 Pack years: 30.00 Types: Cigarettes Quit date: 09/10/1991 Years since quittin.0 Smokeless tobacco: Never Vaping Use Vaping Use: Never used Substance Use Topics Alcohol use: No Drug use: No MEDICATIONS & ALLERGIES Prior to Admission Medications: Current Outpatient Prescriptions on File Prior to Visit: HYDROcodone-Acetaminophen (NORCO) 10-325 mg per tablet Take 1 tablet by mouth every 6 hours as needed for Pain. fluticasone (FLONASE) 50 mcg/actuation nasal spray Use 2 Sprays in each nostril once daily. codeine-guaiFENesin (ROBITUSSIN AC) 10-100 mg/5 mL syrup Take 5-10 mL by mouth four times daily as needed for Cough. May cause drowsiness. furosemide (LASIX) 20 mg tablet Take 1 tablet by mouth twice daily. LORazepam (ATIVAN) 0.5 mg tab Take 1 tablet by mouth twice daily as needed. gabapentin (NEURONTIN) 300 mg capsule 2 AT HS AND ONE IN AM potassium chloride (K-TAB) 10 mEq tablet Take 1 tablet by mouth once daily. nitroglycerin sublingual (NITROQUICK) 0.4 mg SL tablet Dissolve 1 tablet under the tongue as needed. FOR CHEST PAIN. IF NO RELIEF CALL 911 Insulin Lispro, Human, (HUMALOG KWIKPEN) 100 unit/mL inpn 1-9 units before mealtime and at bedtime,according to sliding scale Insulin Wales, Disposable, (TIFFANIE PEN NEEDLE) 32 x 5/32 ndle use 4 times a day with Humalog pen blood sugar diagnostic (ACCU-CHEK SMARTVIEW TEST STRIP) test strip Use as instructed to test blood glucose 4 times daily (sugars currently uncontrolled, CKD stage 3) glimepiride (AMARYL) 2 mg tablet 1 pill in morning, and 1/2 pill at supper Lancets lancets Testing twice a day. DX:250.00 SYNTHROID 175 mcg tablet Take 1 tablet by mouth once daily. Take 8 tablets per week metFORMIN (GLUCOPHAGE) 500 mg tablet Take by mouth. take 2 in the morning, 1 at supper, 1 at bedtime lisinopril 2.5 mg tablet Take 1 tablet by mouth once daily. liraglutide (VICTOZA 3-DEVIN) 0.6 mg/0.1 mL (18 mg/3 mL) pnij Inject 1.8 mg subcutaneously once daily. metoprolol tartrate, short acting, (LOPRESSOR) 25 mg tablet Take 1 tablet by mouth twice daily. blood sugar diagnostic (CONTOUR TEST STRIPS) test strip Test blood sugar(s) 4 times daily. Dx: 250.0. Insulin: No niacin 500 mg CR capsule Take 1 capsule by mouth twice daily. qoxfq-[id number]-epa-fish oil-D3 360 mg-1,200 mg -1,000 unit cap Take by mouth three times daily. Insulin Wales, Disposable, (PEN NEEDLE) 29 x 1/2 ndle Use 1 time daily with injectable pen glimepiride (AMARYL) 1 mg tablet Take 1 tablet by mouth once daily. As directed (Patient taking differently: Take 2 mg by mouth once daily. As directed) COMPOUNDED PRESCRIPTION Initiate BiPAP @ 15/9 cm of water with humidification. Mask (per patient preference) optional chin strap (if indicated) , filters, tubing, humidifier and lifetime supplies. Dx. ABDI 327.23 diphenhydrAMINE (BENADRYL ALLERGY) 25 mg tablet Take 1 tablet by mouth every 6 hours as needed for Itching/Rash. COMPOUNDED PRESCRIPTION Pen Needle BD Ultra Fine 29 g 12.7 mm Twice a day as directed 250.00 insulin needles, DISPOSABLE, (PEN NEEDLE) 31 X 5/16 Ndle use as directed twice daily Omeprazole Magnesium (PRILOSEC) 10 mg SuDR Take by mouth as needed. Cholecalciferol, Vitamin D3, 1,000 unit ORAL Tab Take by mouth once daily. metroNIDAZOLE (METROGEL) 1 % TOPICAL gel Apply to affected area once daily. blood sugar diagnostic (ASCENSIA MICROFILL) Misc test strip Check before and after each meal and aths polyethylene glycol 3350(MIRALAX 100 % ORAL POWDER) 17 grams/8 0z water daily ASA LOW DOSE 81MG TAB EC Take one(1) tablet daily. No current facility-administered medications on file prior to visit. ALLERGIES Allergen Reactions Adhesive Tape (Jamila* Other: See Comments Contact celluitis Crestor [Rosuvastat* Intolerance Lantus [Insulin Gla* Intolerance burning at local injection site Nickel Rash in jewelry; also Palladium which cross reacts with nickel in some cases. Palladium Rash Pravastatin Intolerance Muscle cramps Toradol [Ketorolac] Hives [facility] Miscellaneous Notes* Telephone Encounter - Christin Anderson Keesha BLANK - 09/26/2022 9:29 AM EST Patient has been identified by name and date of : Yes Patient phones for refill(s): Requested Prescriptions Pending Prescriptions Disp Refills diclofenac (VOLTAREN) 1 % topical gel 480 g 11 Sig: Apply 4 g to affected area four times daily. Date of last office visit in primary care: 08/24/2022 Medicare Wellness: 02/21/2023 Last 2 Encounter Wt Readings: Date: Wt: 08/24/2022 98.4 kg (217 lb) 06/09/2022 102.2 kg (225 lb 3.2 oz) Previous labs/tests for medication: Not applicable Please advise. Thank you. Christin Thao LPN documented in this encounterW[facility]01[facility]23 History of Present illness Narrative* Catherine Pompa RN - 09/12/2022 4:05 PM EST INSIGHT CDM TELEPHONIC OUTREACH Provider Action/FYI: bones hurting from weather- arthritis; not new Bilat feet a little swollen; thinks she ate more sodium recently Will contact PCP if swelling continues or worsens No SoB Contact made with patient: Yes Patient identified by name and . Discussed care with patient It s nice talking to you again. As a reminder, this is our bi-weekly check-in where I will be asking you questions about your health. This will only take a few minutes of your time. Is this a good time? Yes Symptoms What Chronic Disease(s) does the patient have: CHF and CKD Do you check your blood pressures at home? No Do you have new or worse shortness of breath with activity? No Do you have new or worsening trouble breathing while lying flat? No Do you have new or worsening swelling of legs, feet or ankles? No Do you feel like you are dehydrated for any reason, including not being able to eat or drink normally, or having less urine/much darker urine than normal for you? No Do you check your daily weight at home? Yes, 212 lbs Have you noticed a sudden gain in weight greater than three pounds in a day or three pounds in a week? No Are you having any other symptoms that your PCP needs to know about? No Symptoms: Symptom Escalation IVAN Education Ordered -: Yes chf The patient required an escalation for symptom(s)? No Medications Do you have any questions about taking your medication or which medications you should be on? No Do you need any medication refills at this time, including any of the medications you might take only when needed? No Social We would like to make sure you have what you need so that your basic needs are met- including your personal safety, food, housing and medications? Would you like to speak with a social work steam table attendant to help give you support for any of these needs? No It can be normal to feel anxious or down during a time like this. Would you like to talk to a mental health professional about how you have been feeling? No Closing Thank you for taking the time to talk with me today. We want to work with you to ensure that we arekeeping your medical condition(s) well-controlled and to keep you healthy and out of the doctor's office or hospital. It s also not too late for me to sign you up for automated weekly questionnaires through [employer]. This is an easy way for us to stay connected each week. Are you interested? No, I understand. We can always sign you up in the future if you change your mind. Just as a reminder, will continue to call you every other week to check in on your health. Our calls should take 10-15 minutes or less. Remember, if you have concerns in between our calls, please call your PCP's office right away. Thank you. Enter next patient outreach date for two weeks on the same day of the week as today in the Track PtOutreach and End outreach. 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 Hearing aids cleaned and checked. Retention tail replaced on right hearing aid. Recommend in warranty battery replacement before the end of February 2023. Recommendations Return as needed Jordi Leonard documented in this encounterW[facility]12[facility]22 History of Present illness Narrative* Jesus Davila MD - 08/24/2022 2:52 PM EST This note was created using Beneq. Subjective Bhakti Kirkpatrick is a 77 year old female. She had no concerns. Neuropathy was more bothersome, and Dr. Kaminski her table cut off saw operator had her take alpha lipoic acid and this seemed to be helping. She felt her cognitive impairment was better, and but her spouse was concerned this was worse. She had not seen neurology for almost one year. Review of Systems Constitutional: Negative. Respiratory: Negative. Cardiovascular: Negative. Gastrointestinal: Negative. Neurological: Negative. ACTIVE PROBLEM LIST Edema Abdi Treated With Bipap Arteriosclerotic Heart Disease (Ashd) Hypertensive Heart Disease With Heart Failure and Stage 4 Chronic Kidney Disease (Hcc) Degenerative Arthritis of Knee Myalgia Hyperlipidemia (Hfpef) Heart Failure With Preserved Ejection Fraction (Hcc) Fatty Liver History of Thyroid Cancer Type 2 Diabetes Mellitus With Stage 4 Chronic Kidney Disease, With Long-Term Current Use of Insulin(Hcc) Depressive Disorder Chronic Kidney Disease, Stage IV (Severe) ([facility]) S/P Laparoscopic Sleeve Gastrectomy Gerd Without Esophagitis Sensory Hearing Loss, Bilateral Class 3 Severe Obesity With Body Mass Index (Bmi) of 45.0 to 49.9 in Adult (Hcc) Type 2 Diabetes Mellitus With Diabetic Neuropathy, With Long-Term Current Use of Insulin (Hcc) Primary Osteoarthritis of Both Hips Vertigo Cognitive Impairment Circadian Rhythm Sleep Disorder, Irregular Sleep Wake Type Anemia Current Outpatient Medications Medication Sig gabapentin (NEURONTIN) 300 mg capsule Take 2 capsules by mouth every morning for 180 days. gabapentin (NEURONTIN) 400 mg capsule Take 2 capsules by mouth daily at bedtime for 180 days. memantine (NAMENDA) 5 mg tablet Take 1 tablet by mouth twice daily. DULoxetine (CYMBALTA) 60 mg capsule Take 1 capsule by mouth once daily. pantoprazole DR (PROTONIX) 20 mg tablet Take 1 tablet by mouth twice daily. Blood-Glucose Sensor (DEXCOM G6 SENSOR) claudia change every 10 days Blood-Glucose Transmitter (DEXCOM G6 TRANSMITTER) cluadia change every 3 weeks levothyroxine (SYNTHROID) 175 mcg tablet 7 & 1/2 pills per week (one a day with extra half pillon Sunday) blood sugar diagnostic (ACCU-CHEK ANNALISE PLUS TEST STRP) test strip Use to check blood sugar 4 timesdaily insulin detemir U-100 (LEVEMIR FLEXTOUCH U-100 INSULIN) 100 unit/mL (3 mL) injection pen 40 units twice a day, adjust dose based on sugars, max daily dose 100 units (Patient taking differently: 20 units in AM, 40 units in PM) insulin aspart U-100 (NOVOLOG FLEXPEN U-100 INSULIN) 100 unit/mL (3 mL) 17 in AM, 13 at lunch, 19 at supper, 10 at bed, plus extra based on sugars, max daily dose 100 units (Patient taking differently: 14 in AM, 14 at lunch, 14 at supper, 10 at bed, plus extra based on sugars, max daily dose 100 units plus sliding scale) metoprolol tartrate, short acting, (LOPRESSOR) 25 mg tablet Take 1 tablet by mouth twice daily. nitroglycerin sublingual (NITROQUICK) 0.4 mg SL tablet Dissolve 1 tablet under the tongue as needed. FOR CHEST PAIN. IF NO RELIEF CALL 911 diclofenac (VOLTAREN) 1 % topical gel Apply 4 g to affected area four times daily. Insulin Wales, Disposable, (BD ULTRAFINE III MINI PEN) 31 gauge x 3/16 1 Each as directed. 6 times daily. Dx:E11.40. On multiple insulin doses. Lancets (ACCU-CHEK SOFTCLIX LANCETS) lancets Checking blood sugars 4 times daily. Dx: E11.42 CPAP Auto bilevel with humidity set as follows: IPAP max 24, EPAP min 8 and PS 4-6 cmH2O. Comfort settings TiMax 2.0, TiMin 0.3, Trigger -M, Cycle-M. Continue using ResMed N20 nasal mask interface. melatonin 10 mg ODT Take 1 tablet by mouth at bedtime as needed. docusate sodium (COLACE ORAL) Take by mouth. lactulose (DUPHALAC, CONSTULOSE) 10 gram/15 mL solution 30 mL q 24 HR. ferrous sulfate 325 mg (65 mg iron) tablet Take 325 mg by mouth twice daily with meals. BIPAP calcium citrate (CITRACAL ORAL) Take 2 tablets by mouth twice daily. multivit-min/iron/folic acid/K (BARIATRIC MULTIVITAMINS ORAL) Take by mouth. fluticasone (FLONASE) 50 mcg/actuation nasal spray Use 2 Sprays in each nostril once daily. COMPOUNDED PRESCRIPTION Initiate BiPAP @ 15/9 cm of water with humidification. Mask (per patient preference) optional chin strap (if indicated) , filters, tubing, humidifier and lifetime supplies. Dx. ABDI 327.23 polyethylene glycol 3350(MIRALAX 100 % ORAL POWDER) 17 grams/8 0z water daily ASA LOW DOSE 81MG TAB EC Take one(1) tablet daily. alpha lipoic acid 200 mg cap Take 1 capsule by mouth three times daily. For neuropathy. furosemide (LASIX) 40 mg tablet Take 1 tablet by mouth three times daily. Per Dr. Lilian Vance, nephrology. No current facility-administered medications for this visit. Objective BP 104/68 (BP Site: Left Arm, BP Position: Sitting, BP Cuff Size: Large Adult) Pulse 76 Temp 36.5 C (97.7 F) (Temporal) Wt 98.4 kg (217 lb) LMP 06/27/2011 BMI 42.38 kg/m Physical Exam Constitutional: General: She is not in acute distress. Appearance: She is not ill-appearing. Cardiovascular: Rate and Rhythm: Normal rate and regular rhythm. Pulmonary: Breath sounds: Normal breath sounds. Musculoskeletal: Right lower leg: No edema. Left lower leg: No edema. Neurological: General: No focal deficit present. Mental Status: She is alert. Gait: Gait normal. Psychiatric: Mood and Affect: Mood normal. Behavior: Behavior normal. Assessment and Plan 1. Type 2 diabetes mellitus with diabetic neuropathy, with long-term current use of insulin (HCC) -ICD9: 250.60, 357.2, V58.67, ICD10: E11.40, Z79.4 (primary diagnosis) improved control - HGB A1C - ALPHA LIPOIC ACID 200 MG CAPSULE. OTC per podiatry. 2. Anemia, unspecified type - ICD9: 285.9, ICD10: D64.9 Recheck. - CBC 3. Hyperlipidemia, unspecified hyperlipidemia type - ICD9: 272.4, ICD10: E78.5 - to be determined upon return of lab results - Continue current medication. - COMP METABOLIC PANEL - LIPID PANEL BASIC 4. Edema, unspecified type - ICD9: 782.3, ICD10: R60.9 Controlled. Medication per her tar man. - FUROSEMIDE 40 MG TABLET 5. Cognitive impairment - ICD9: 294.9, ICD10: R41.89 Spouse concerned about progressing dementia, but patient indicated this was better. - Neurology follow up is overdue and will be scheduled. Jesus Davila MD documented in this [facility]12[facility]22 History of Present illness Narrative* Catherine Pompa RN - 08/16/2022 3:55 PM EST INSIGHT CDM TELEPHONIC OUTREACH Provider Action/FYI: last CDM contact 07/03/22 Contact made with patient: Yes Patient identified by name and . Discussed care with patient It s nice talking to you again. As a reminder, this is our bi-weekly check-in where I will be asking you questions about your health. This will only take a few minutes of your time. Is this a good time? Yes Symptoms What Chronic Disease(s) does the patient have: CHF and CKD Do you check your blood pressures at home? No 110/60 Usually good,so doesn't check Do you have new or worse shortness of breath with activity? No SOB with exertion Do you have new or worsening trouble breathing while lying flat? No Sleeps on no pillows; has a electric recliner Do you have new or worsening swelling of legs, feet or ankles? No Do you check your daily weight at home? Yes, checks weekly. Have you noticed a sudden gain in weight greater than three pounds in a day or three pounds in a week? No and Do you feel like you are dehydrated for any reason, including not being able to eat or drink normally, or having less urine/much darker urine than normal for you? No Hydrates with 64 oz per day Urine wnl ;clear and yellow No Do you check your daily weight at home? checks weekly - 212 lbs Are you having any other symptoms that your PCP needs to know about? No Symptom Escalation The patient required an escalation for symptom(s)? No Medications Do you have any questions about taking your medication or which medications you should be on? No Do you need any medication refills at this time, including any of the medications you might take only when needed? No Social We would like to make sure you have what you need so that your basic needs are met- including your personal safety, food, housing and medications? Would you like to speak with a social work steam table attendant to help give you support for any of these needs? No lives with spouse; feels safe +food It can be normal to feel anxious or down during a time like this. Would you like to talk to a mental health professional about how you have been feeling? No Closing Thank you for taking the time to talk with me today. We want to work with you to ensure that we arekeeping your medical condition(s) well-controlled and to keep you healthy and out of the doctor's office or hospital. It s also not too late for me to sign you up for automated weekly questionnaires through Ditt[employer]. This is an easy way for us to stay connected each week. Are you interested? No, I understand. We can always sign you up in the future if you change your mind. Just as a reminder, will continue to call you every other week to check in on your health. Our calls should take 10-15 minutes or less. Remember, if you have concerns in between our calls, please call your PCP's office right away. Thank you. Enter next patient outreach date for two weeks on the same day of the week as today in the Track PtOutreach and End outreach. documented in this [facility]12-[facility]-2022 Miscellaneous Notes* Telephone Encounter - Christin Thao LPN - 08/15/2022 9:22 AM EST asking for refill of Gabapentin 400mg, new RX sent to pharmacy 08/08/2022. Christin Thao LPN documented in this encounterW[facility]11-23-2022 Miscellaneous Notes* Telephone Encounter - Tamar Dewitt - 08/02/2022 2:45 PM EST Appt scheduled * Telephone Encounter - Edward Cortez - 08/02/2022 1:55 PM EST 1st Attempt. Called and LVM to call back and schedule. Edward Escalanteey PSS * Telephone Encounter - Hector Loo MA - 08/01/2022 3:11 PM EST Please schedule 6 week follow up appointment for this patient to see Dr Baltazar iTwari. Thank you Hector Loo MA documented in this encounterW[facility]11-21-2022 Miscellaneous Notes* Telephone Encounter - Tia Moreno Pss - 07/31/2022 9:29 AM EST LANETTE: 09/14/21 Belinda Clark 08/01/21 Dr. Jean OGDEN: No future appointments are scheduled at this time. Assessment and Plan: ASSESSMENT/PLAN: 1. Cognitive impairment - ICD9: 294.9, ICD10: R41.89 (primary diagnosis) Focus today placed on cognitive decline. Although pt subjectively reporting this much better, family disagrees and MOCA would suggest some progression of cognitive impairment. Note that reversible causes including thyroid and B12 have been evaluated and ruled out. MRI brain dose show cortical atrophy that in my opinion is most prominent in the temp and parietal lobes possibly suggesting a patternconsistent with early Alzheimer's disease. We discussed treatment options. Family is safe guarding house and providing pt assistance as needed. Patient concerned that Aricept may only exacerbate other med conditions after hearing possible SEs. Thus will start on Namenda. Pt would like to titrate dose slowly and thus for now will place on 5mg daily and then increase after 1 week to 5mg BID. SE andADRs d/w pt and her family. At time of follow up will consider further increasing the dose. Encouraged brain exercises. 2. ABDI on CPAP - ICD9: 327.23, V46.8, ICD10: G47.33, Z99.89 Encouraged pt to use for well over 4 hours per day (currently not meeting 4 hour per day avg despite sleeping 16 hours of each day per family). Discussed with patient: the physiology of OSAS, medicalconditions associated with untreated ABDI. Reminded pt to clean equipment regularly. Advised patientto avoid activities that could harm self or others when tired/sleepy, including driving and/or operating heavy machinery. Encouraged weight loss, and continued compliance with other medications. 3. 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 Unfortunately due to pain and other med conditions, she is not putting a great deal of effort into correcting this irregular sleep wake schedule. Will continue melatonin as previously recommended. Encouraged pt to wake at the same time daily, to get light exposure during the day, and to avoid naps. 4. Diabetic polyneuropathy associated with type 2 diabetes mellitus (HCC) - ICD9: 250.60, 357.2, ICD10: E11.42 Stable on current meds. Primarily complaint of pain at this time originates from hips. However, glucose remains elevated. Encouraged goal of <140. Encouraged follow up with endocrinology. Akilah Pena MD documented in this encounterW[facility]11-09-2022 Miscellaneous Notes* Telephone Encounter - Christin Thao LPN - 07/19/2022 11:39 AM EST Unable to speak to , states she probably did not take for about a month, but feels likeshe really needs, can get alittle edgy. Christin Thao LPN * Telephone Encounter - Jamee Vergara APRN.CNP - 07/19/2022 10:28 AM EST How long ago did she stop taking? Jamee Vergara APRN.CNP * Telephone Encounter - Christin Thao LPN - 07/18/2022 4:59 PM EST Bhakti told her that she did not need the medication anymore, then she found the bottle in the drawer. Told her she never told him she wanted to stop taking, now Patient is asking for refill. Cymbalta 60mg last written 09/05/2021, x90 tablets, 1 refill. Patient does have 6 month follow-up 08/30/2022, do you want to see in office sooner or refill RX. Christin Thao LPN documented in this encounterW[facility]11-02-2022 History of Present illness Narrative* Shalini Henry RT(R) - 07/12/2022 3:20 PM EDT Radiology Service Progress Note PATIENT NAME: Bhakti Kirkpatrick DATE OF SERVICE: July 12, 2022 TIME: 3:11 PM PATIENT IDENTITY VERIFICATION COMPLETED USING TWO (2) IDENTIFIERS: Name and Date of confirmedby patient verbally. FALL SCREENING: Has the patient had 2 falls in the last year or 1 fall with injury or currently using an Ambulatory Assistive Device (Walker, Cane, Wheelchair, Crutches, etc.)? Yes, Patient High Riskfor Falls What interventions were put in place to prevent falls during this visit? Offered Assistance with Transfers/Clothing and Increased Observations by Caregivers PATIENT GENDER DATA: Female. status: : No status: NO. PATIENT RELEVANT IMPLANT DATA REVIEWED: Not Applicable RADIOLOGY DEPARTMENT: General X-ray: Exam(s) Completed: Upper Extremity X- Ray(s): Shoulder, AP / TRUE AP right PERIPHERAL IV DATA: Not applicable SIGNED BY: RT Zaid(R) July 12, 2022 3:11 PM documented in this [facility] History of Present illness Narrative* Arslan Ugarte MD - 07/10/2022 1:13 PM EDT Arslan Ugarte MD Department of Orthopaedics Orthopaedics [address] [place] [address] Dept: [phone] Dept July 10, 2022 CHIEF COMPLAINT: New and Pain of the Right Hand HPI Patient is here today for right middle finger swelling and pain. Patient states she was typing one evening, went to bed and woke up with her finger bruised and swollen. She was placed on a steroid for a short time which helped, but after one month the bruising and swelling has not gone down. Patient c/o sharp pain, tightness and radiation into her arm. ASSESSMENT: M79.641 Pain of right hand (primary encounter diagnosis) R29.898 Weakness of hand M19.041 Primary osteoarthritis of right hand M25.511, G89.29 Chronic right shoulder pain PLAN: Recommend hand OT. Ask medical doc if any medications would be beneficial. FOLLOW UP INSTRUCTIONS: As needed Ms. Bhakti Kirkpatrick was advised as to contrast therapies and/or to take analgesics/anti-inflammatories as needed and all contraindications were reviewed. OBJECTIVE: Ms. Bhakti Kirkpatrick is a pleasant 77 year old in no apparent distress. Gen:LMP 06/27/2011 nl development, obese, no deformities ENT: Normocephalic, normal hearing, moist mucosa CV: Pulses:Radial= 2+ and symmetric, capillary refill < 2 secs, no peripheral edema/varicosities Skin: no rash, bruising or lesions. Good turgor. Psych: cooperative and appropriate, alert and oriented x 3, good mood and affect. Musculoskeletal: PIP and DIP swelling and stiffness with digital motion of all digits. Minimal tenderness, mostly atmiddle PIP. NV exam intact. Crepitus and limited motion at the shoulder secondary to OA IMAGIN views of the right hand with diffuse OA findings. IMPRESSION: Severe right glenohumeral osteoarthritis and mild caudal humeral head subluxation. Dishcloth Folder: DOTTY Transcribe Date/Time: Jul 13 2022 2:42P Dictated by : Blair KAPLAN MD This examination was interpreted and the report reviewed and electronically signed by: Blair KAPLAN MD on Jul 13 2022 2:45PM EST Results-Findings * * *Final Report* * * DATE OF EXAM: Jul 12 2022 3:16PM WOX [id number] - XR SHOULDER 2V AP/TRUE AP RT / PROCEDURE REASON: multiple diagnoses * * * * Physician Interpretation * * * * EXAMINATION: XR SHOULDER 2V AP/TRUE AP RT HISTORY: Chronic right shoulder pain pain for a couple of months in right shoulder and going down the arm no inj VIEWS: AP and true AP. COMPARISON: No relevant comparison. FINDINGS: Severe glenohumeral joint space narrowing with mild caudal humeral head subluxation, subchondral sclerosis and large inferior humeral head osteophyte. The acromiohumeral interval is widened. Upper right cervical apophyseal joint spurring incidentally. Supporting Subjective Information Below: Past Medical History: PAST MEDICAL HISTORY Diagnosis Date (HFpEF) heart failure with preserved ejection fraction (HCC) 06/23/2015 Dr. 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) 09/13/2017 CKD stage 3 due to type 2 diabetes mellitus ([facility]) 02/06/2015 Coronary artery calcification seen on CAT scan 01/21/2013 Depressive disorder 03/31/2016 Diverticulosis 08/23/2010 Diverticulosis of colon (without mention of hemorrhage) Edema GERD without esophagitis 09/02/2019 Hearing loss HTN (hypertension) 08/12/2014 Hypertensive kidney disease with stage 3a chronic kidney disease (HCC) 08/12/2014 Infected prosthetic mesh of abdominal wall ([facility]) 06/30/2020 Ingrown toenail Morbid obesity ([facility]) Obstructive sleep apnea CPAP Other and unspecified hyperlipidemia Other dyspnea and respiratory abnormality Palpitations Primary osteoarthritis of both hips 08/18/2020 Rosacea Symptomatic menopausal or female climacteric states Thyroid cancer ([facility]) 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 Type II or unspecified type diabetes mellitus without mention of complication, not stated as uncontrolled 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 07/10/2018 Unspecified intestinal obstruction 10/2018 Past Surgical History: PAST SURGICAL HISTORY Procedure Laterality Date APPENDECTOMY 05/20/2001 open ARTHRP KNE CONDYLE&PLATU MEDIAL&LAT COMPARTMENTS Left 08/18/2014 Knee replacement, total left ARTHRP KNE CONDYLE&PLATU MEDIAL&LAT COMPARTMENTS Right 06/12/2012 total right knee arthroplasty ; THYROIDECTOMY TOTAL OR COMPLETE Bilateral 12/15/2009 Papillary Ca CHOLECYSTECTOMY 05/20/2001 Cholecystectomy-lap COLONOSCOPY FLX DX W/COLLJ SPEC WHEN PFRMD 06/06/2004 COLONOSCOPY FLX DX W/COLLJ SPEC WHEN PFRMD 08/23/2010 EXCISION EXCESSIVE SKIN & SUBQ TISSUE OTHER AREA 01/17/2002 Abdominoplasty EXPLORATORY LAPAROTOMY, CELIOTOMY-SP 06/24/2020 Takedown of enteroprosthetic fistula.Small bowel resection anastosmosis. Removal infected mesh. Recurrent vental hernia repair. HIP ARTHROSCOPY W/SYNOVECTOMY Right 09/19/2021 exc.seroma; gluteus repair; rotium augmentation; trochanteric bursectomy, iliotibial band resection LAPAROCOPIC SLEEVE GASTRECTOMY 03/10/2019 Extensive laparoscopic lysis of adhesions. EGD. Lap. TAP block. LEFT HEART CATH,PERCUTANEOUS 09/13/2017 no significant CAD NEPHRECTOMY PARTIAL Right 03/1991 Right side for benign tumor, small lesion removed REPAIR FIRST ABDOMINAL WALL HERNIA 09/25/2005 7 times total RPR 1ST INCAL/VNT HERNIA INCARCERATED 06/11/2007 with mesh TOTAL ABDOMINAL HYSTERECT W/WO RMVL TUBE OVARY 05/20/2001 PER, for fibroids and BSO TOTAL HIP REPLACEMENT Right 10/20/2020 anterior minimally invasive right total hip Family History: FAMILY HISTORY Problem Relation Age of Onset COPD Mother at 64 yoa Ischemic Heart Disease Father Mi at 61 yoa GI Brother cirrhosis other (AAA rupture) Brother Lung cancer, 49 yoa Hypertension Sister 2 years younger Coronary Artery Disease Sister Stroke Sister Diabetes Sister Cancer Paternal Aunt Cervical cancer Diabetes Maternal Aunt Diabetes Paternal Aunt Diabetes Paternal Grandfather Heart Paternal Uncle other (parkinson) Son 41 Social History: Social History Tobacco Use Smoking status: Former Packs/day: 2.00 Years: 15.00 Pack years: 30.00 Types: Cigarettes Quit date: 09/10/1991 Years since quittin.8 Smokeless tobacco: Never Vaping Use Vaping Use: Never used Substance Use Topics Alcohol use: No Drug use: No Medications: Current Outpatient Medications Medication Sig pantoprazole DR (PROTONIX) 20 mg tablet Take 1 tablet by mouth twice daily. memantine (NAMENDA) 5 mg tablet Take 1 tablet by mouth twice daily. levothyroxine (SYNTHROID) 175 mcg tablet 7 & 1/2 pills per week (one a day with extra half pillon Sunday) gabapentin (NEURONTIN) 300 mg capsule Take 2 capsules by mouth every morning for 180 days. gabapentin (NEURONTIN) 400 mg capsule Take 2 capsules by mouth daily at bedtime for 180 days. insulin detemir U-100 (LEVEMIR FLEXTOUCH U-100 INSULIN) 100 unit/mL (3 mL) injection pen 40 units twice a day, adjust dose based on sugars, max daily dose 100 units (Patient taking differently: 20 units in AM, 40 units in PM) insulin aspart U-100 (NOVOLOG FLEXPEN U-100 INSULIN) 100 unit/mL (3 mL) 17 in AM, 13 at lunch, 19 at supper, 10 at bed, plus extra based on sugars, max daily dose 100 units (Patient taking differently: 14 in AM, 14 at lunch, 14 at supper, 10 at bed, plus extra based on sugars, max daily dose 100 units plus sliding scale) metoprolol tartrate, short acting, (LOPRESSOR) 25 mg tablet Take 1 tablet by mouth twice daily. nitroglycerin sublingual (NITROQUICK) 0.4 mg SL tablet Dissolve 1 tablet under the tongue as needed. FOR CHEST PAIN. IF NO RELIEF CALL 911 diclofenac (VOLTAREN) 1 % topical gel Apply 4 g to affected area four times daily. DULoxetine (CYMBALTA) 60 mg capsule Take 1 capsule by mouth once daily. melatonin 10 mg ODT Take 1 tablet by mouth at bedtime as needed. docusate sodium (COLACE ORAL) Take by mouth. lactulose (DUPHALAC, CONSTULOSE) 10 gram/15 mL solution 30 mL q 24 HR. ferrous sulfate 325 mg (65 mg iron) tablet Take 325 mg by mouth twice daily with meals. calcium citrate (CITRACAL ORAL) Take 2 tablets by mouth twice daily. multivit-min/iron/folic acid/K (BARIATRIC MULTIVITAMINS ORAL) Take by mouth. fluticasone (FLONASE) 50 mcg/actuation nasal spray Use 2 Sprays in each nostril once daily. polyethylene glycol 3350(MIRALAX 100 % ORAL POWDER) 17 grams/8 0z water daily ASA LOW DOSE 81MG TAB EC Take one(1) tablet daily. Blood-Glucose Sensor (DEXCOM G6 SENSOR) claudia change every 10 days Blood-Glucose Transmitter (DEXCOM G6 TRANSMITTER) claudia change every 3 weeks blood sugar diagnostic (ACCU-CHEK ANNALISE PLUS TEST STRP) test strip Use to check blood sugar 4 timesdaily Insulin [place], Disposable, (BD ULTRAFINE III MINI PEN) 31 gauge x 3/16 1 Each as directed. 6 times daily. Dx:E11.40. On multiple insulin doses. Lancets (ACCU-CHEK SOFTCLIX LANCETS) lancets Checking blood sugars 4 times daily. Dx: E11.42 furosemide (LASIX) 20 mg tablet Lasix 40 mg daily in the morning and 20 mg daily in the evening CPAP Auto bilevel with humidity set as follows: IPAP max 24, EPAP min 8 and PS 4-6 cmH2O. Comfort settings TiMax 2.0, TiMin 0.3, Trigger -M, Cycle-M. Continue using ResMed N20 nasal mask interface. BIPAP COMPOUNDED PRESCRIPTION Initiate BiPAP @ 15/9 cm of water with humidification. Mask (per patient preference) optional chin strap (if indicated) , filters, tubing, humidifier and lifetime supplies. Dx. ABDI 327.23 No current facility-administered medications for this visit. Allergies: Adhesive Tape (Rosins), Crestor [Rosuvastatin Calcium], Lantus [Insulin Glargine], Nickel, Palladium, Pravastatin, and Toradol [Ketorolac] ROS: General (negative for fatigue, malaise, weight loss/gain) HEENT (negative for headache, earache, recent vision changes, sinus pain, sore throat) Respiratory (no recent shortness of breath, hemoptysis) CV (negative for chest tightness, palpitations) Musculoskeletal (see HPI) Psych (no depression, anxiety) REFERRING PHYSICIAN: . Bhakti Kirkpatrick was referred to me for consultation by the following physician. This consultation note will be sent to the following physician by either mail or electronic medical record. SELF Jesus Davila MD [address] [facility] [id number] Arslan Ugarte MD documented [facility] History of Present illness Narrative* Pérez Loya RN - 07/03/2022 9:34 AM EDT INSIGHT CDM TELEPHONIC OUTREACH Provider Action/FYI: Spk with Pt she reports has 07/10/[address] Jian Kaufman for right hand arthritis, she anticipates a possible steroid injection. Pt is walking without ambulatory DME. Pt feels much improved physically, wearing Orthopedic shoes, walking more frequently monitoring her carbohydrates, and sodium in her diet, weighs her self daily, wt is 212 lbs. Denies needs or concerns. Contact made with patient: Yes Patient identified by name and . Discussed care with patient It s nice talking to you again. As a reminder, this is our bi-weekly check-in where I will be asking you questions about your health. This will only take a few minutes of your time. Is this a good time? Yes Symptoms What Chronic Disease(s) does the patient have: CHF and CKD Do you check your blood pressures at home? Yes, Enter readings: 102/60 Do you have new or worse shortness of breath with activity? No Do you have new or worsening trouble breathing while lying flat? No Do you have new or worsening swelling of legs, feet or ankles? No Do you feel like you are dehydrated for any reason, including not being able to eat or drink normally, or having less urine/much darker urine than normal for you? No Do you check your daily weight at home? Yes, Have you noticed a sudden gain in weight greater than three pounds in a day or three pounds in a week? No Are you having any other symptoms that your PCP needs to know about? No Symptom Escalation The patient required an escalation for symptom(s)? No Medications Do you have any questions about taking your medication or which medications you should be on? No Do you need any medication refills at this time, including any of the medications you might take only when needed? No Social We would like to make sure you have what you need so that your basic needs are met- including your personal safety, food, housing and medications? Would you like to speak with a social work steam table attendant to help give you support for any of these needs? No It can be normal to feel anxious or down during a time like this. Would you like to talk to a mental health professional about how you have been feeling? No Closing Thank you for taking the time to talk with me today. We want to work with you to ensure that we arekeeping your medical condition(s) well-controlled and to keep you healthy and out of the doctor's office or hospital. It s also not too late for me to sign you up for automated weekly questionnaires through [employer]. This is an easy way for us to stay connected each week. Are you interested? No, I understand. We can always sign you up in the future if you change your mind. Just as a reminder, will continue to call you every other week to check in on your health. Our calls should take 10-15 minutes or less. Remember, if you have concerns in between our calls, please call your PCP's office right away. Thank you. Enter next patient outreach date for two weeks on the same day of the week as today in the Track PtOutreach and End outreach. Shalini Ortez RN July 03, 2022 9:34 AM documented in [facility] encounter[facility]10[facility]22 Instructions* Patient Instructions* Max Best MD - 06/28/2022 4:49 PM EDT Assessment / Plan Problem: 1) Diabetes type 2, sugars going low over night by Dexcom, I'll ask her to back down on the night time Levemir. Unchanged 1) Mixed hyperlipidemia, should get better with better sugar control 2) s/p Sleeve gastrectomy 3) CKD stage 3-4, following with Dr. María Vance 4) ABDI, has new BiPAP, using every night, and also with naps as much as possible (sometimes will fall asleep unexpectedly just sitting in a chair). 5) s/p Hip surgery, is walking around now, getting PT, notes it causes significant pain, but keeps at it. 6) s/p COVID vaccine x 4, discussed Paxlovid. 7) Thyroid CA, no labs in last 10 months, will check now. Treatment / Plan: 1) drop the Levemir to 70 units at bedtime, if sugars are going below 90 during the night, then drop the Levemir by another 5 units. 2) return to me in 6 weeks, by virtual visit Max Best MD [facility] History of Present illness Narrative* Max Best MD - 06/28/2022 4:31 PM EDT Virtual Visit utilizing both audio and video components MyChart-Zoom Assessment / Plan Problem: 1) Diabetes type 2, sugars going low over night by Dexcom, I'll ask her to back down on the night time Levemir. Unchanged 1) Mixed hyperlipidemia, should get better with better sugar control 2) s/p Sleeve gastrectomy 3) CKD stage 3-4, following with Dr. María Vance 4) ABDI, has new BiPAP, using every night, and also with naps as much as possible (sometimes will fall asleep unexpectedly just sitting in a chair). 5) s/p Hip surgery, is walking around now, getting PT, notes it causes significant pain, but keeps at it. 6) s/p COVID vaccine x 4, discussed Paxlovid. 7) Thyroid CA, no labs in last 10 months, will check now. Treatment / Plan: 1) drop the Levemir to 70 units at bedtime, if sugars are going below 90 during the night, then drop the Levemir by another 5 units. 2) return to me in 6 weeks, by virtual visit Max Best MD Data Review: diabetes data reviewed below History Diabetes type 2, (02/15/22): Levemir 20-76, Humalog 14-14-14 sugar data reviewed from her Dexcom unit sugars drifting slowly down to around 60s by 6AM Hypothyroidism continues to take 175 mcg x 7.5/wk. s/p COVID vaccine x 4 Diabetes History Type (2003): dx diabetes type 2 Control hx Component Hemoglobin A1C Latest Ref Rng & Units 4.3 - 5.6 % 08/29/2019 6.8 02/20/2020 7.5 (H) 06/10/2020 8.2 (H) 12/17/2020 6.0 05/31/2021 7.2 (H) 11/28/2021 6.2 (H) Testing freq (11/11/15): 4x/d Eye hx (07/2015): no DM changes per pt Renal hx Component Albumin/Creat Ratio Latest Ref Rng 0 - 30 mg/g 02/16/2010 10 07/05/2010 9 05/08/2011 13 08/08/2013 9 02/02/2015 17 Component BUN Creatinine Latest Ref Rng & Units 7 - 21 mg/dL 0.58 - 0.96 mg/dL 09/13/2015 18 0.91 03/09/2016 16 1.01 06/07/2016 14 0.88 09/08/2017 30 (H) 1.40 (H) 03/27/2018 38 2.01 04/01/2018 27 1.68 12/02/2018 26 1.02 (04/02/18): 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 follows her Liver hx Component Bilirubin, Total Alkaline Phosphatase AST ALT Latest Ref Rng 0.0 - 1.5 mg/dL 40 - 150 U/L 7 - 40 U/L 0 - 45 U/L 07/02/2014 0.2 93 84 (H) 68 (H) 09/21/2014 0.3 74 26 24 06/23/2015 0.3 97 56 (H) 68 (H) 06/24/2015 0.3 89 57 (H) 72 (H) BP hx Vitals 06/24/2015 06/30/2015 09/04/2015 09/13/2015 11/11/2015 SITTING BP 121/64 104/67 120/70 130/80 100/62 (11/11/15): lisinopril 2.5 mg/d, metoprolol 25 mg 2x/d, Neuro hx (11/11/15): numb tingling dysesthesias in feet and legs, gets shaky sweaty with hypoglycemia Vascular hx (11/11/15): no hx [place], stroke Component Latest Ref Rng 02/20/2014 07/02/2014 09/24/2014 Triglyceride 30 - 149 mg/dL 133 134 158 (H) Cholesterol 100 - 199 mg/dL 170 189 186 HDL Cholesterol >55 mg/dL 53 (L) 62 45 (L) LDL Cholesterol 60 - 129 mg/dL 90 100 109 Non HDL Cholesterol 90 - 159 mg/dL 117 127 141 (11/11/15): niacin CR 500 mg 2x/d (06/02/19): no Rx lipids Sleep hx (11/11/15): has ABDI, on BiPAP, never sleeps without it (05/26/16): using BiPAP ever night Exercise hx (11/11/15): no exercise Medications (11/11/15): Victoza 1.8 mg daily, glimepiride 2 mg: AM=1, PM=1/2, metformin 500 mg ii-i-ii, sliding scale Humalog, using 1-3 units at a time. (05/26/16): Lantus 10 units, Victoza 1.8 mg/d, glimepiride 2 mg: AM=1, PM=1/2, metformin 500 mg ii-i-ii (11/28/16): Lantus 10 units, Victoza 1.8 mg/d, glimepiride 2 mg: AM=1, PM=1/2, metformin 500 mg ii-i-ii (04/16/17): Lantus 15 units at bed, Victoza 1.8 mg/d, glimepiride 2mg 2x/d, metformin 500 mg ii-i-ii (05/30/17): Lantus 28 units at bed, and meal Humalog 9-9-9-9 (i.e. taking another 9 units at bedtimesnack), Victoza 1.8 mg/d, glimepiride 2mg 2x/d, metformin 500 mg ii-i-ii (06/05/17): Levemir 17 units twice a day, and meal Humalog 12-11-10, plus sliding scale (09/11/17): Levemir 17 AM and HS, meal Humalog 12-11-10-9 (last is for snack), plus sliding scale1 per 20, goal 120 (12/18/17): Levemir 12 units AM & HS, Humalog 8-8-7-6 plus sliding scale, metformin 500mg 2-1-1 (04/02/18): Levemir 12 units AM and HS, and Humalog 8-8-7-6 plus sliding scale, has stopped metformin (05/27/18): Levemir 22 units AM and HS, and Humalog 15-12-14-11 (08/27/18): Levemir 34 units 2x/d, Humalog 18-15-18-15 (12/04/18): Levemir 34 units 2x/d, Humalog 18-15-18-11 (03/06/19): Levemir 17 units in AM, 19 units in PM. 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 Jamey Ibrahim, [facility] Pathology (10/29/09): FNA Atypical cells present in a background of cyst contents, suspicious for papillary thyroid carcinoma (12/15/09): single well-circumscribed nodule in the right inferior lobe, which measured 3.5 cm in greatest dimension. The nodule was extensively hemorrhagic and cystic with a rim of viable material which ranges in appearance from papillary architecture to follicular structures. There is no evidence of a higher grade component. There is no definitive lymphovascular space invasion identified. In some areas, the tumor cells have oncocytic cytoplasm, however, the cells do not meet criteria for tall-cell variant of papillary thyroid carcinoma. Scan (02/24/10): post-Rx 131-Iodine scan, SIDDIQI (02/16/10): Rx 102.4 mCi 131-Iodine Thyroglobulin Component Thyroglobulin TG Antibody Screen Latest Ref Rng & Units 0.8 - 49.0 ng/mL <14.4 IU/mL 11/05/2009 75.7 (H) 1.0 01/18/2010 <0.2 (L) 1.1 02/16/2010 0.3 (L) 1.0 07/05/2010 <0.2 (L) 1.3 12/27/2010 <0.2 (L) 1.3 05/08/2011 <0.2 (L) 1.1 07/24/2011 <0.2 (L) 1.5 01/23/2012 <0.2 (L) 1.0 07/27/2012 <0.2 (L) <1.0 02/18/2013 <0.2 (L) <1.0 08/12/2013 <0.2 (L) <1.0 02/16/2014 <0.2 (L) <1.0 09/24/2014 <0.2 (L) <1.0 03/08/2015 <0.2 (L) 1.3 12/10/2015 <0.2 (L) <1.0 05/25/2016 <0.2 (L) <1.0 11/15/2016 <0.2 (L) 1.3 Vitamin D Component Vitamin D 25 Hydroxy Latest Ref Rng 31.0 - 80.0 ng/mL 01/18/2010 39.7 01/17/2011 48.1 07/24/2011 50.6 01/23/2012 40.2 02/18/2013 43.0 08/12/2013 40.0 02/16/2014 39.5 09/24/2014 36.0 Ultrasound (01/18/10): no suspicious adenopathy along great vessels or in lateral neck on either side. No masses in thyroid bed. (11/11/15): no suspicious adenopathy along great vessels or in lateral neck on either side. No massesin thyroid bed. (11/28/16): no suspicious adenopathy along great vessels or in lateral neck on either side. No masses in thyroid bed. ROS PHYSICAL EXAM PAST MED / SURG / FAMILY / SOCIAL HISTORY PAST MEDICAL HISTORY Diagnosis Date (HFpEF) heart failure with preserved ejection fraction (HCC) 06/23/2015 Dr. 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) 02/06/2015 Coronary artery calcification seen on CAT scan 01/21/2013 Depressive disorder 03/31/2016 Diverticulosis 08/23/2010 Diverticulosis of colon (without mention of hemorrhage) Edema GERD without esophagitis 09/02/2019 Hearing loss HTN (hypertension) 08/12/2014 Hypertensive kidney disease with stage 3a chronic kidney disease (HCC) 08/12/2014 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) 06/30/2020 Ingrown toenail Morbid obesity (HCC) Obstructive sleep apnea CPAP Other and unspecified hyperlipidemia Other dyspnea and respiratory abnormality Palpitations Primary osteoarthritis of both hips 08/18/2020 Rosacea Symptomatic menopausal or female climacteric states 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 Type II or unspecified type diabetes mellitus without mention of complication, not stated as uncontrolled 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 07/10/2018 Unspecified intestinal obstruction 10/2018 PAST SURGICAL HISTORY Procedure Laterality Date APPENDECTOMY 05/20/2001 open ARTHRP KNE CONDYLE&PLATU MEDIAL&LAT COMPARTMENTS Left 08/18/2014 Knee replacement, total left ARTHRP KNE CONDYLE&PLATU MEDIAL&LAT COMPARTMENTS Right 06/12/2012 total right knee arthroplasty ; THYROIDECTOMY TOTAL OR COMPLETE Bilateral 12/15/2009 Papillary Ca CHOLECYSTECTOMY 05/20/2001 Cholecystectomy-lap COLONOSCOPY FLX DX W/COLLJ SPEC WHEN PFRMD 06/06/2004 COLONOSCOPY FLX DX W/COLLJ SPEC WHEN PFRMD 08/23/2010 EXCISION EXCESSIVE SKIN & SUBQ TISSUE OTHER AREA 01/17/2002 Abdominoplasty EXPLORATORY LAPAROTOMY, CELIOTOMY-SP 06/24/2020 Takedown of enteroprosthetic fistula.Small bowel resection anastosmosis. Removal infected mesh. Recurrent vental hernia repair. HIP ARTHROSCOPY W/SYNOVECTOMY Right 09/19/2021 exc.seroma; gluteus repair; rotium augmentation; trochanteric bursectomy, iliotibial band resection LAPAROCOPIC SLEEVE GASTRECTOMY 03/10/2019 Extensive laparoscopic lysis of adhesions. EGD. Lap. TAP block. LEFT HEART CATH,PERCUTANEOUS 09/13/2017 no significant CAD NEPHRECTOMY PARTIAL Right 03/1991 Right side for benign tumor, small lesion removed REPAIR FIRST ABDOMINAL WALL HERNIA 09/25/2005 7 times total RPR 1ST INCAL/VNT HERNIA INCARCERATED 06/11/2007 with mesh TOTAL ABDOMINAL HYSTERECT W/WO RMVL TUBE OVARY 05/20/2001 PER, for fibroids and BSO TOTAL HIP REPLACEMENT Right 10/20/2020 anterior minimally invasive right total hip FAMILY HISTORY Problem Relation Age of Onset COPD Mother at 64 yoa Ischemic Heart Disease Father Mi at 61 yoa GI Brother cirrhosis other (AAA rupture) Brother Lung cancer, 49 yoa Hypertension Sister 2 years younger Coronary Artery Disease Sister Stroke Sister Diabetes Sister Cancer Paternal Aunt Cervical cancer Diabetes Maternal Aunt Diabetes Paternal Aunt Diabetes Paternal Grandfather Heart Paternal Uncle other (parkinson) Son 41 Social History Tobacco Use Smoking status: Former Packs/day: 2.00 Years: 15.00 Pack years: 30.00 Types: Cigarettes Quit date: 09/10/1991 Years since quittin.8 Smokeless tobacco: Never Substance Use Topics Alcohol use: No Drug use: No MEDICATIONS & ALLERGIES Prior to Admission Medications: Current Outpatient Prescriptions on File Prior to Visit: HYDROcodone-Acetaminophen (NORCO) 10-325 mg per tablet Take 1 tablet by mouth every 6 hours as needed for Pain. fluticasone (FLONASE) 50 mcg/actuation nasal spray Use 2 Sprays in each nostril once daily. codeine-guaiFENesin (ROBITUSSIN AC) 10-100 mg/5 mL syrup Take 5-10 mL by mouth four times daily as needed for Cough. May cause drowsiness. furosemide (LASIX) 20 mg tablet Take 1 tablet by mouth twice daily. LORazepam (ATIVAN) 0.5 mg tab Take 1 tablet by mouth twice daily as needed. gabapentin (NEURONTIN) 300 mg capsule 2 AT HS AND ONE IN AM potassium chloride (K-TAB) 10 mEq tablet Take 1 tablet by mouth once daily. nitroglycerin sublingual (NITROQUICK) 0.4 mg SL tablet Dissolve 1 tablet under the tongue as needed. FOR CHEST PAIN. IF NO RELIEF CALL 911 Insulin Lispro, Human, (HUMALOG KWIKPEN) 100 unit/mL inpn 1-9 units before mealtime and at bedtime,according to sliding scale Insulin Wales, Disposable, (TIFFANIE PEN NEEDLE) 32 x 5/32 ndle use 4 times a day with Humalog pen blood sugar diagnostic (ACCU-CHEK SMARTVIEW TEST STRIP) test strip Use as instructed to test blood glucose 4 times daily (sugars currently uncontrolled, CKD stage 3) glimepiride (AMARYL) 2 mg tablet 1 pill in morning, and 1/2 pill at supper Lancets lancets Testing twice a day. DX:250.00 SYNTHROID 175 mcg tablet Take 1 tablet by mouth once daily. Take 8 tablets per week metFORMIN (GLUCOPHAGE) 500 mg tablet Take by mouth. take 2 in the morning, 1 at supper, 1 at bedtime lisinopril 2.5 mg tablet Take 1 tablet by mouth once daily. liraglutide (VICTOZA 3-DEVIN) 0.6 mg/0.1 mL (18 mg/3 mL) pnij Inject 1.8 mg subcutaneously once daily. metoprolol tartrate, short acting, (LOPRESSOR) 25 mg tablet Take 1 tablet by mouth twice daily. blood sugar diagnostic (CONTOUR TEST STRIPS) test strip Test blood sugar(s) 4 times daily. Dx: 250.0. Insulin: No niacin 500 mg CR capsule Take 1 capsule by mouth twice daily. mnwxz-2l-nfe-epa-fish oil-D3 360 mg-1,200 mg -1,000 unit cap Take by mouth three times daily. Insulin Wales, Disposable, (PEN NEEDLE) 29 x 1/2 ndle Use 1 time daily with injectable pen glimepiride (AMARYL) 1 mg tablet Take 1 tablet by mouth once daily. As directed (Patient taking differently: Take 2 mg by mouth once daily. As directed) COMPOUNDED PRESCRIPTION Initiate BiPAP @ 15/9 cm of water with humidification. Mask (per patient preference) optional chin strap (if indicated) , filters, tubing, humidifier and lifetime supplies. Dx. ABDI 327.23 diphenhydrAMINE (BENADRYL ALLERGY) 25 mg tablet Take 1 tablet by mouth every 6 hours as needed for Itching/Rash. COMPOUNDED PRESCRIPTION Pen Needle BD Ultra Fine 29 g 12.7 mm Twice a day as directed 250.00 insulin needles, DISPOSABLE, (PEN NEEDLE) 31 X 5/16 Ndle use as directed twice daily Omeprazole Magnesium (PRILOSEC) 10 mg SuDR Take by mouth as needed. Cholecalciferol, Vitamin D3, 1,000 unit ORAL Tab Take by mouth once daily. metroNIDAZOLE (METROGEL) 1 % TOPICAL gel Apply to affected area once daily. blood sugar diagnostic (ASCENSIA MICROFILL) Misc test strip Check before and after each meal and aths polyethylene glycol 3350(MIRALAX 100 % ORAL POWDER) 17 grams/8 0z water daily ASA LOW DOSE 81MG TAB EC Take one(1) tablet daily. No current facility-administered medications on file prior to visit. ALLERGIES Allergen Reactions Adhesive Tape (Jamila* Other: See Comments Contact celluitis Crestor [Rosuvastat* Intolerance Lantus [Insulin Gla* Intolerance burning at local injection site Nickel Rash in jewelry; also Palladium which cross reacts with nickel in some cases. Palladium Rash Pravastatin Intolerance Muscle cramps Toradol [Ketorolac] Hives [facility] History of Present illness Narrative* Pérez Loya RN - 06/26/2022 12:54 PM EDT INSIGHT CDM TELEPHONIC OUTREACH Provider Action/FYI: Call to Pt, to verify CHF / CKD or other symptoms, left a message. Contact made with patient: No - Left message Hello my name is Shalini Ortez RN your Floor Coverer Apprentice [facility] I am callingtoday for your bi-weekly check in. I am sorry I missed your call. I will reach out to you again tomorrow. (if the third call I will reach out to you again next week) Enter next patient outreach date for the following business day using the Track Pt Outreach. End outreach. Shalini Ortez RN June 26, 2022 12:54 PM documented [facility] History of Present illness Narrative* Vidya Martin PA-C - 06/09/2022 4:23 PM EDT This note was created using NoteWriter. Subjective Bhakti Kirkpatrick is a 77 year old female. HPI Patient presents with a right middle finger pain for 8 days. She states she could not sleep so she stayed up playing on her computer overnight when she woke up in the morning her finger was really bothering her. She denies history of gout. She does have arthritis in other joints but really has not had it in her finger previously. Its gotten more swollen and painful so she came in for evaluation. no fever or chills. Review of Systems Constitutional: Negative. HENT: Negative. Respiratory: Negative. Cardiovascular: Negative. Gastrointestinal: Negative. Musculoskeletal: Right middle finger pain All other systems reviewed and are negative. PAST MEDICAL HISTORY Diagnosis Date (HFpEF) heart failure with preserved ejection fraction ([facility]) 06/23/2015 Dr. 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) 09/13/2017 CKD stage 3 due to type 2 diabetes mellitus ([facility]) 02/06/2015 Coronary artery calcification seen on CAT scan 01/21/2013 Depressive disorder 03/31/2016 Diverticulosis 08/23/2010 Diverticulosis of colon (without mention of hemorrhage) Edema GERD without esophagitis 09/02/2019 Hearing loss HTN (hypertension) 08/12/2014 Hypertensive kidney disease with stage 3a chronic kidney disease (HCC) 08/12/2014 Infected prosthetic mesh of abdominal wall ([facility]) 06/30/2020 Ingrown toenail Morbid obesity (HCC) Obstructive sleep apnea CPAP Other and unspecified hyperlipidemia Other dyspnea and respiratory abnormality Palpitations Primary osteoarthritis of both hips 08/18/2020 Rosacea Symptomatic menopausal or female climacteric states Thyroid cancer ([facility]) 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 Type II or unspecified type diabetes mellitus without mention of complication, not stated as uncontrolled 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 180 tablet 1 memantine (NAMENDA) 5 mg tablet Take 1 tablet by mouth twice daily. 60 tablet 2 Blood-Glucose Sensor (DEXCOM G6 SENSOR) claudia change every 10 days 3 Each 11 Blood-Glucose Transmitter (DEXCOM G6 TRANSMITTER) claudia change every 3 weeks 1 Each 3 levothyroxine (SYNTHROID) 175 mcg tablet 7 & 1/2 pills per week (one a day with extra half pillon Sunday) 100 tablet 3 gabapentin (NEURONTIN) 300 mg capsule Take 2 capsules by mouth every morning for 180 days. 60 capsule 5 gabapentin (NEURONTIN) 400 mg capsule Take 2 capsules by mouth daily at bedtime for 180 days. 60 capsule 5 blood sugar diagnostic (ACCU-CHEK ANNALISE PLUS TEST STRP) test strip Use to check blood sugar 4 timesdaily 400 Strip 3 insulin detemir U-100 (LEVEMIR FLEXTOUCH U-100 INSULIN) 100 unit/mL (3 mL) injection pen 40 units twice a day, adjust dose based on sugars, max daily dose 100 units (Patient taking differently: 20 units in AM, 40 units in PM) 30 Pen 3 insulin aspart U-100 (NOVOLOG FLEXPEN U-100 INSULIN) 100 unit/mL (3 mL) 17 in AM, 13 at lunch, 19 at supper, 10 at bed, plus extra based on sugars, max daily dose 100 units (Patient taking differently: 14 in AM, 14 at lunch, 14 at supper, 10 at bed, plus extra based on sugars, max daily dose 100 units plus sliding scale) 30 Pen 3 metoprolol tartrate, short acting, (LOPRESSOR) 25 mg tablet Take 1 tablet by mouth twice daily. 180tablet 3 nitroglycerin sublingual (NITROQUICK) 0.4 mg SL tablet Dissolve 1 tablet under the tongue as needed. FOR CHEST PAIN. IF NO RELIEF CALL 911 1 Bottle of 25 5 diclofenac (VOLTAREN) 1 % topical gel Apply 4 g to affected area four times daily. 480 g 11 Insulin Wales, Disposable, (BD ULTRAFINE III MINI PEN) 31 gauge x 3/16 1 Each as directed. 6 times daily. Dx:E11.40. On multiple insulin doses. 200 Each 11 DULoxetine (CYMBALTA) 60 mg capsule Take 1 capsule by mouth once daily. 90 capsule 1 Lancets (ACCU-CHEK SOFTCLIX LANCETS) lancets Checking blood sugars 4 times daily. Dx: E11.42 150 Each 11 CPAP Auto bilevel with humidity set as follows: IPAP max 24, EPAP min 8 and PS 4-6 cmH2O. Comfort settings TiMax 2.0, TiMin 0.3, Trigger -M, Cycle-M. Continue using ResMed N20 nasal mask interface. 1Device 99 melatonin 10 mg ODT Take 1 tablet by mouth at bedtime as needed. docusate sodium (COLACE ORAL) Take by mouth. lactulose (DUPHALAC, CONSTULOSE) 10 gram/15 mL solution 30 mL q 24 HR. ferrous sulfate 325 mg (65 mg iron) tablet Take 325 mg by mouth twice daily with meals. BIPAP calcium citrate (CITRACAL ORAL) Take 2 tablets by mouth twice daily. multivit-min/iron/folic acid/K (BARIATRIC MULTIVITAMINS ORAL) Take by mouth. fluticasone (FLONASE) 50 mcg/actuation nasal spray Use 2 Sprays in each nostril once daily. 1 Bottle 11 COMPOUNDED PRESCRIPTION Initiate BiPAP @ 15/9 cm of water with humidification. Mask (per patient preference) optional chin strap (if indicated) , filters, tubing, humidifier and lifetime supplies. Dx. ABDI 327.23 1 Device 0 polyethylene glycol 3350(MIRALAX 100 % ORAL POWDER) 17 grams/8 0z water daily 0 0 ASA LOW DOSE 81MG TAB EC Take one(1) tablet daily. 30 0 furosemide (LASIX) 20 mg tablet Lasix 40 mg daily in the morning and 20 mg daily in the evening No current facility-administered medications for this visit. PAST SURGICAL HISTORY Procedure Laterality Date APPENDECTOMY 05/20/2001 open ARTHRP KNE CONDYLE&PLATU MEDIAL&LAT COMPARTMENTS Left 08/18/2014 Knee replacement, total left ARTHRP KNE CONDYLE&PLATU MEDIAL&LAT COMPARTMENTS Right 06/12/2012 total right knee arthroplasty ; THYROIDECTOMY TOTAL OR COMPLETE Bilateral 12/15/2009 Papillary Ca CHOLECYSTECTOMY 05/20/2001 Cholecystectomy-lap COLONOSCOPY FLX DX W/COLLJ SPEC WHEN PFRMD 06/06/2004 COLONOSCOPY FLX DX W/COLLJ SPEC WHEN PFRMD 08/23/2010 EXCISION EXCESSIVE SKIN & SUBQ TISSUE OTHER AREA 01/17/2002 Abdominoplasty EXPLORATORY LAPAROTOMY, CELIOTOMY-SP 06/24/2020 Takedown of enteroprosthetic fistula.Small bowel resection anastosmosis. Removal infected mesh. Recurrent vental hernia repair. HIP ARTHROSCOPY W/SYNOVECTOMY Right 09/19/2021 exc.seroma; gluteus repair; rotium augmentation; trochanteric bursectomy, iliotibial band resection LAPAROCOPIC SLEEVE GASTRECTOMY 03/10/2019 Extensive laparoscopic lysis of adhesions. EGD. Lap. TAP block. LEFT HEART CATH,PERCUTANEOUS 09/13/2017 no significant CAD NEPHRECTOMY PARTIAL Right 03/1991 Right side for benign tumor, small lesion removed REPAIR FIRST ABDOMINAL WALL HERNIA 09/25/2005 7 times total RPR 1ST INCAL/VNT HERNIA INCARCERATED 06/11/2007 with mesh TOTAL ABDOMINAL HYSTERECT W/WO RMVL TUBE OVARY 05/20/2001 PER, for fibroids and BSO TOTAL HIP REPLACEMENT Right 10/20/2020 anterior minimally invasive right total hip FAMILY HISTORY Problem Relation Age of Onset COPD Mother at 64 yoa Ischemic Heart Disease Father Mi at 61 yoa GI Brother cirrhosis other (AAA rupture) Brother Lung cancer, 49 yoa Hypertension Sister 2 years younger Coronary Artery Disease Sister Stroke Sister Diabetes Sister Cancer Paternal Aunt Cervical cancer Diabetes Maternal Aunt Diabetes Paternal Aunt Diabetes Paternal Grandfather Heart Paternal Uncle other (parkinson) Son 41 Social History Tobacco Use Smoking status: Former Packs/day: 2.00 Years: 15.00 Pack years: 30.00 Types: Cigarettes Quit date: 09/10/1991 Years since quittin.7 Smokeless tobacco: Never Substance Use Topics Alcohol use: No Drug use: No Objective BP 126/72 Pulse 98 Temp 37.2 C (99 F) Resp 16 Wt 102.2 kg (225 lb 3.2 oz) LMP 06/27/2011 SpO2 97% BMI 43.98 kg/m Physical Exam Vitals reviewed. Constitutional: Appearance: Normal appearance. HENT: Head: Normocephalic and atraumatic. Musculoskeletal: Comments: Patient has some redness and swelling with bruising present to the proximal interphalangeal joint of the right third digit. Limited range of motion of the joint due to pain. Normal strengthon flexion and extension, no sign of tendon injury. Cap refill brisk less than 2 seconds. Radial pulse 2+. Normal distal sensation. Skin: General: Skin is warm and dry. Neurological: Mental Status: She is alert. Assessment and Plan ASSESSMENT/PLAN: 1. Finger pain, right - ICD9: 729.5, ICD10: M79.644 X-ray was ordered after my exam, the patient's got very upset and abruptly made her leave after they had been waiting for x-ray for 30-40 minutes. We had gotten several xrays check in at the same time. after they complained they were told this and that they were next for xray and still leftbefore a splint or further treatment could be done. - XR DIGIT GENERAL 3V FRONTAL/LAT/OBL RIGHT Vidya Martin PA-C [facility] Miscellaneous Notes* Telephone Encounter - Pascale Mendez RN - 06/07/2022 12:30 PM EDT Spoke with and received the patient's Life in [employer] share code. [id number] Pascale Mendez RN * Telephone Encounter - Chelsie Henning Pss - 05/31/2022 3:52 PM EDT Pts calling. Pt has a new sensor on her arm and she would like to know how to share readings with provider. documented [facility]09-26-[facility] Miscellaneous Notes* Telephone Encounter - Kassie Kidd Ma - 06/05/2022 4:46 PM EDT Last Rx: 09/05/21 #180 w/1. Last OV: 03/02/22 Next OV: 08/30/22 [facility] History of Present illness Narrative* Pérez Loya RN - 05/22/2022 3:39 PM EDT INSIGHT CDM TELEPHONIC OUTREACH Provider Action/FYI: Called Pt, Left a message to verify CHF/ CKD or other symptoms or needs. Contact made with patient: No - Left message Roberto my name is Shalini Ortez RN your Floor Coverer Apprentice from the [facility] I am callingtoday for your bi-weekly check in. I am sorry I missed your call. I will reach out to you again tomorrow. (if the third call I will reach out to you again next week) Enter next patient outreach date for the following business day using the Track Pt Outreach. End outreach. Shalini Ortez RN May 22, 2022 3:39 PM documented in this [facility]08[facility]29-2022 Miscellaneous Notes* Telephone Encounter - Jesus Davila MD - 05/08/2022 12:08 PM EDT ASSESSMENT/PLAN: 1. Osteoarthritis of knee, unspecified laterality, unspecified osteoarthritis type - ICD9: 715.36, ICD10: M17.10 (primary diagnosis) - SEAT LIFT MECHANISM COMBL 2. Heart failure with preserved ejection fraction, unspecified HF chronicity (HCC) - ICD9: 428.9, ICD10: I50.30 - SEAT LIFT MECHANISM COMBL Jesus Davila MD documented [facility] this [facility]08-[facility]-2022 Miscellaneous Notes* Telephone Encounter - Akilah Pena Jr., MD - 05/05/2022 12:06 PM EDT Pt needs to schedule follow up. Refill provided until then. Akilah Pena MD [facility] Instructions* Patient Instructions* Max eBst MD - 05/02/2022 1:57 PM EDT Assessment / Plan Problem: 1) Diabetes type 2, still has not receieved her Dexcom. Apparently the entity that manages this doesn't use eScript, and has to have a signature on paper brought in by a person... This finally happened yesterday,. I'll sign the prescription tomorrow, and hopefully she will get it soon after that. We have an in person appointment in 2 months, will just followup at that time. 2) Burning at sight of Levemir injection when she injects 76 units (it is room temp). Always in upper arm, she was scared of injecting in her abdomen after her sleeve gastrectomy. I'll encourage her to start injecting in her abdomen, rotating sites. Unchanged 1) Mixed hyperlipidemia, should get better with better sugar control 2) s/p Sleeve gastrectomy 3) CKD stage 3-4, following with Dr. María Vance 4) ABDI, has new BiPAP, using every night, and also with naps as much as possible (sometimes will fall asleep unexpectedly just sitting in a chair). 5) s/p Hip surgery, is walking around now, getting PT, notes it causes significant pain, but keeps at it. 6) s/p COVID vaccine x 4, discussed Paxlovid. 7) Thyroid CA, no labs in last 10 months, will check now. Treatment / Plan: 1) get the Dexcom sensor and start using it 2) start injecting the Levemir in your abdomen, not the one site in your arm. 3) return to me as scheduled in 2 months. Max Best MD documented [facility] History of Present illness Narrative* Max Best MD - 05/02/2022 1:32 PM EDT Virtual Visit utilizing both audio and video components MyChart-Zoom Assessment / Plan Problem: 1) Diabetes type 2, still has not receieved her Dexcom. Apparently the entity that manages this doesn't use eScript, and has to have a signature on paper brought in by a person... This finally happened yesterday,. I'll sign the prescription tomorrow, and hopefully she will get it soon after that. We have an in person appointment in 2 months, will just followup at that time. 2) Burning at sight of Levemir injection when she injects 76 units (it is room temp). Always in upper arm, she was scared of injecting in her abdomen after her sleeve gastrectomy. I'll encourage her to start injecting in her abdomen, rotating sites. Unchanged 1) Mixed hyperlipidemia, should get better with better sugar control 2) s/p Sleeve gastrectomy 3) CKD stage 3-4, following with Dr. María Vance 4) ABDI, has new BiPAP, using every night, and also with naps as much as possible (sometimes will fall asleep unexpectedly just sitting in a chair). 5) s/p Hip surgery, is walking around now, getting PT, notes it causes significant pain, but keeps at it. 6) s/p COVID vaccine x 4, discussed Paxlovid. 7) Thyroid CA, no labs in last 10 months, will check now. Treatment / Plan: 1) get the Dexcom sensor and start using it 2) start injecting the Levemir in your abdomen, not the one site in your arm. 3) return to me as scheduled in 2 months. Max Best MD Data Review: diabetes data reviewed below History Diabetes type 2, BKT Lunch Dinner 162 14 145 14 202 14+2 225 14+4 255 14+6 162 14 165 14 255 14+6 232 14 210 14+2 203 14+2 115 14 193 14+2 173 14 (02/15/22): Levemir 20-76, Humalog 14-14-14 Hypothyroidism continues to take 175 mcg x 7.5/wk. s/p COVID vaccine x 4 Diabetes History Type (2003): dx diabetes type 2 Control hx Component Hemoglobin A1C Latest Ref Rng & Units 4.3 - 5.6 % 08/29/2019 6.8 02/20/2020 7.5 (H) 06/10/2020 8.2 (H) 12/17/2020 6.0 05/31/2021 7.2 (H) 11/28/2021 6.2 (H) Testing freq (11/11/15): 4x/d Eye hx (07/2015): no DM changes per pt Renal hx Component Albumin/Creat Ratio Latest Ref Rng 0 - 30 mg/g 02/16/2010 10 07/05/2010 9 05/08/2011 13 08/08/2013 9 02/02/2015 17 Component BUN Creatinine Latest Ref Rng & Units 7 - 21 mg/dL 0.58 - 0.96 mg/dL 09/13/2015 18 0.91 03/09/2016 16 1.01 06/07/2016 14 0.88 09/08/2017 30 (H) 1.40 (H) 03/27/2018 38 2.01 04/01/2018 27 1.68 12/02/2018 26 1.02 (04/02/18): 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 follows her Liver hx Component Bilirubin, Total Alkaline Phosphatase AST ALT Latest Ref Rng 0.0 - 1.5 mg/dL 40 - 150 U/L 7 - 40 U/L 0 - 45 U/L 07/02/2014 0.2 93 84 (H) 68 (H) 09/21/2014 0.3 74 26 24 06/23/2015 0.3 97 56 (H) 68 (H) 06/24/2015 0.3 89 57 (H) 72 (H) BP hx Vitals 06/24/2015 06/30/2015 09/04/2015 09/13/2015 11/11/2015 SITTING BP 121/64 104/67 120/70 130/80 100/62 (11/11/15): lisinopril 2.5 mg/d, metoprolol 25 mg 2x/d, Neuro hx (11/11/15): numb tingling dysesthesias in feet and legs, gets shaky sweaty with hypoglycemia Vascular hx (11/11/15): no hx [place], stroke Component Latest Ref Rng 02/20/2014 07/02/2014 09/24/2014 Triglyceride 30 - 149 mg/dL 133 134 158 (H) Cholesterol 100 - 199 mg/dL 170 189 186 HDL Cholesterol >55 mg/dL 53 (L) 62 45 (L) LDL Cholesterol 60 - 129 mg/dL 90 100 109 Non HDL Cholesterol 90 - 159 mg/dL 117 127 141 (11/11/15): niacin CR 500 mg 2x/d (06/02/19): no Rx lipids Sleep hx (11/11/15): has ABDI, on BiPAP, never sleeps without it (05/26/16): using BiPAP ever night Exercise hx (11/11/15): no exercise Medications (11/11/15): Victoza 1.8 mg daily, glimepiride 2 mg: AM=1, PM=09/11, metformin 500 mg ii-i-ii, sliding scale Humalog, using 1-3 units at a time. (05/26/16): Lantus 10 units, Victoza 1.8 mg/d, glimepiride 2 mg: AM=1, PM=09/11, metformin 500 mg ii-i-ii (11/28/16): Lantus 10 units, Victoza 1.8 mg/d, glimepiride 2 mg: AM=1, PM=09/11, metformin 500 mg ii-i-ii (04/16/17): Lantus 15 units at bed, Victoza 1.8 mg/d, glimepiride 2mg 2x/d, metformin 500 mg ii-i-ii (05/30/17): Lantus 28 units at bed, and meal Humalog 9-9-9-9 (i.e. taking another 9 units at bedtimesnack), Victoza 1.8 mg/d, glimepiride 2mg 2x/d, metformin 500 mg ii-i-ii (06/05/17): Levemir 17 units twice a day, and meal Humalog 12-11-10, plus sliding scale (09/11/17): Levemir 17 AM and HS, meal Humalog 12-11-10-9 (last is for snack), plus sliding scale1 per 20, goal 120 (12/18/17): Levemir 12 units AM & HS, Humalog 8-8-7-6 plus sliding scale, metformin 500mg 2-1-1 (04/02/18): Levemir 12 units AM and HS, and Humalog 8-8-7-6 plus sliding scale, has stopped metformin (05/27/18): Levemir 22 units AM and HS, and Humalog 15-12-14-11 (08/27/18): Levemir 34 units 2x/d, Humalog 18-15-18-15 (12/04/18): Levemir 34 units 2x/d, Humalog 18-15-18-11 (03/06/19): Levemir 17 units in AM, 19 units in PM. 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 Jamey Ibrahim, [facility] Pathology (10/29/09): FNA Atypical cells present in a background of cyst contents, suspicious for papillary thyroid carcinoma (12/15/09): single well-circumscribed nodule in the right inferior lobe, which measured 3.5 cm in greatest dimension. The nodule was extensively hemorrhagic and cystic with a rim of viable material which ranges in appearance from papillary architecture to follicular structures. There is no evidence of a higher grade component. There is no definitive lymphovascular space invasion identified. In some areas, the tumor cells have oncocytic cytoplasm, however, the cells do not meet criteria for tall-cell variant of papillary thyroid carcinoma. Scan (02/24/10): post-Rx 131-Iodine scan, SIDDIQI (02/16/10): Rx 102.4 mCi 131-Iodine Thyroglobulin Component Thyroglobulin TG Antibody Screen Latest Ref Rng & Units 0.8 - 49.0 ng/mL <14.4 IU/mL 11/05/2009 75.7 (H) 1.0 01/18/2010 <0.2 (L) 1.1 02/16/2010 0.3 (L) 1.0 07/05/2010 <0.2 (L) 1.3 12/27/2010 <0.2 (L) 1.3 05/08/2011 <0.2 (L) 1.1 07/24/2011 <0.2 (L) 1.5 01/23/2012 <0.2 (L) 1.0 07/27/2012 <0.2 (L) <1.0 02/18/2013 <0.2 (L) <1.0 08/12/2013 <0.2 (L) <1.0 02/16/2014 <0.2 (L) <1.0 09/24/2014 <0.2 (L) <1.0 03/08/2015 <0.2 (L) 1.3 12/10/2015 <0.2 (L) <1.0 05/25/2016 <0.2 (L) <1.0 11/15/2016 <0.2 (L) 1.3 Vitamin D Component Vitamin D 25 Hydroxy Latest Ref Rng 31.0 - 80.0 ng/mL 01/18/2010 39.7 01/17/2011 48.1 07/24/2011 50.6 01/23/2012 40.2 02/18/2013 43.0 08/12/2013 40.0 02/16/2014 39.5 09/24/2014 36.0 Ultrasound (01/18/10): no suspicious adenopathy along great vessels or in lateral neck on either side. No masses in thyroid bed. (11/11/15): no suspicious adenopathy along great vessels or in lateral neck on either side. No massesin thyroid bed. (11/28/16): no suspicious adenopathy along great vessels or in lateral neck on either side. No masses in thyroid bed. ROS PHYSICAL EXAM PAST MED / SURG / FAMILY / SOCIAL HISTORY PAST MEDICAL HISTORY Diagnosis Date (HFpEF) heart failure with preserved ejection fraction (HCC) 06/23/2015 Dr. 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) 02/06/2015 Coronary artery calcification seen on CAT scan 01/21/2013 Depressive disorder 03/31/2016 Diverticulosis 08/23/2010 Diverticulosis of colon (without mention of hemorrhage) Edema GERD without esophagitis 09/02/2019 Hearing loss HTN (hypertension) 08/12/2014 Hypertensive kidney disease with stage 3a chronic kidney disease (HCC) 08/12/2014 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) 06/30/2020 Ingrown toenail Morbid obesity (HCC) Obstructive sleep apnea CPAP Other and unspecified hyperlipidemia Other dyspnea and respiratory abnormality Palpitations Primary osteoarthritis of both hips 08/18/2020 Rosacea Symptomatic menopausal or female climacteric states 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 Type II or unspecified type diabetes mellitus without mention of complication, not stated as uncontrolled 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 07/10/2018 Unspecified intestinal obstruction 10/2018 PAST SURGICAL HISTORY Procedure Laterality Date APPENDECTOMY 05/20/2001 open ARTHRP KNE CONDYLE&PLATU MEDIAL&LAT COMPARTMENTS Left 08/18/2014 Knee replacement, total left ARTHRP KNE CONDYLE&PLATU MEDIAL&LAT COMPARTMENTS Right 06/12/2012 total right knee arthroplasty ; THYROIDECTOMY TOTAL OR COMPLETE Bilateral 12/15/2009 Papillary Ca CHOLECYSTECTOMY 05/20/2001 Cholecystectomy-lap COLONOSCOPY FLX DX W/COLLJ SPEC WHEN PFRMD 06/06/2004 COLONOSCOPY FLX DX W/COLLJ SPEC WHEN PFRMD 08/23/2010 EXCISION EXCESSIVE SKIN & SUBQ TISSUE OTHER AREA 01/17/2002 Abdominoplasty EXPLORATORY LAPAROTOMY, CELIOTOMY-SP 06/24/2020 Takedown of enteroprosthetic fistula.Small bowel resection anastosmosis. Removal infected mesh. Recurrent vental hernia repair. HIP ARTHROSCOPY W/SYNOVECTOMY Right 09/19/2021 exc.seroma; gluteus repair; rotium augmentation; trochanteric bursectomy, iliotibial band resection LAPAROCOPIC SLEEVE GASTRECTOMY 03/10/2019 Extensive laparoscopic lysis of adhesions. EGD. Lap. TAP block. LEFT HEART CATH,PERCUTANEOUS 09/13/2017 no significant CAD NEPHRECTOMY PARTIAL Right 03/1991 Right side for benign tumor, small lesion removed REPAIR FIRST ABDOMINAL WALL HERNIA 09/25/2005 7 times total RPR 1ST INCAL/VNT HERNIA INCARCERATED 06/11/2007 with mesh TOTAL ABDOMINAL HYSTERECT W/WO RMVL TUBE OVARY 05/20/2001 [facility], for fibroids and BSO TOTAL HIP REPLACEMENT Right 10/20/2020 anterior minimally invasive right total hip FAMILY HISTORY Problem Relation Age of Onset COPD Mother at 64 yoa Ischemic Heart Disease Father Mi at 61 yoa GI Brother cirrhosis other (AAA rupture) Brother Lung cancer, 49 yoa Hypertension Sister 2 years younger Coronary Artery Disease Sister Stroke Sister Diabetes Sister Cancer Paternal Aunt Cervical cancer Diabetes Maternal Aunt Diabetes Paternal Aunt Diabetes Paternal Grandfather Heart Paternal Uncle other (parkinson) Son 41 Social History Tobacco Use Smoking status: Former Packs/day: 2.00 Years: 15.00 Pack years: 30.00 Types: Cigarettes Quit date: 09/10/1991 Years since quittin.6 Smokeless tobacco: Never Substance Use Topics Alcohol use: No Drug use: No MEDICATIONS & ALLERGIES Prior to Admission Medications: Current Outpatient Prescriptions on File Prior to Visit: HYDROcodone-Acetaminophen (NORCO) 10-325 mg per tablet Take 1 tablet by mouth every 6 hours as needed for Pain. fluticasone (FLONASE) 50 mcg/actuation nasal spray Use 2 Sprays in each nostril once daily. codeine-guaiFENesin (ROBITUSSIN AC) 10-100 mg/5 mL syrup Take 5-10 mL by mouth four times daily as needed for Cough. May cause drowsiness. furosemide (LASIX) 20 mg tablet Take 1 tablet by mouth twice daily. LORazepam (ATIVAN) 0.5 mg tab Take 1 tablet by mouth twice daily as needed. gabapentin (NEURONTIN) 300 mg capsule 2 AT HS AND ONE IN AM potassium chloride (K-TAB) 10 mEq tablet Take 1 tablet by mouth once daily. nitroglycerin sublingual (NITROQUICK) 0.4 mg SL tablet Dissolve 1 tablet under the tongue as needed. FOR CHEST PAIN. IF NO RELIEF CALL 911 Insulin Lispro, Human, (HUMALOG KWIKPEN) 100 unit/mL inpn 1-9 units before mealtime and at bedtime,according to sliding scale Insulin Wales, Disposable, (TIFFANIE PEN NEEDLE) 32 x 5/32 ndle use 4 times a day with Humalog pen blood sugar diagnostic (ACCU-CHEK SMARTVIEW TEST STRIP) test strip Use as instructed to test blood glucose 4 times daily (sugars currently uncontrolled, CKD stage 3) glimepiride (AMARYL) 2 mg tablet 1 pill in morning, and 1/2 pill at supper Lancets lancets Testing twice a day. DX:250.00 SYNTHROID 175 mcg tablet Take 1 tablet by mouth once daily. Take 8 tablets per week metFORMIN (GLUCOPHAGE) 500 mg tablet Take by mouth. take 2 in the morning, 1 at supper, 1 at bedtime lisinopril 2.5 mg tablet Take 1 tablet by mouth once daily. liraglutide (VICTOZA 3-DEVIN) 0.6 mg/0.1 mL (18 mg/3 mL) pnij Inject 1.8 mg subcutaneously once daily. metoprolol tartrate, short acting, (LOPRESSOR) 25 mg tablet Take 1 tablet by mouth twice daily. blood sugar diagnostic (CONTOUR TEST STRIPS) test strip Test blood sugar(s) 4 times daily. Dx: 250.0. Insulin: No niacin 500 mg CR capsule Take 1 capsule by mouth twice daily. sxasd-7w-hai-epa-fish oil-D3 360 mg-1,200 mg -1,000 unit cap Take by mouth three times daily. Insulin Wales, Disposable, (PEN NEEDLE) 29 x 1/2 ndle Use 1 time daily with injectable pen glimepiride (AMARYL) 1 mg tablet Take 1 tablet by mouth once daily. As directed (Patient taking differently: Take 2 mg by mouth once daily. As directed) COMPOUNDED PRESCRIPTION Initiate BiPAP @ 15/9 cm of water with humidification. Mask (per patient preference) optional chin strap (if indicated) , filters, tubing, humidifier and lifetime supplies. Dx. ABDI 327.23 diphenhydrAMINE (BENADRYL ALLERGY) 25 mg tablet Take 1 tablet by mouth every 6 hours as needed for Itching/Rash. COMPOUNDED PRESCRIPTION Pen Needle BD Ultra Fine 29 g 12.7 mm Twice a day as directed 250.00 insulin needles, DISPOSABLE, (PEN NEEDLE) 31 X 5/16 Ndle use as directed twice daily Omeprazole Magnesium (PRILOSEC) 10 mg SuDR Take by mouth as needed. Cholecalciferol, Vitamin D3, 1,000 unit ORAL Tab Take by mouth once daily. metroNIDAZOLE (METROGEL) 1 % TOPICAL gel Apply to affected area once daily. blood sugar diagnostic (ASCENSIA MICROFILL) Misc test strip Check before and after each meal and aths polyethylene glycol 3350(MIRALAX 100 % ORAL POWDER) 17 grams/8 0z water daily ASA LOW DOSE 81MG TAB EC Take one(1) tablet daily. No current facility-administered medications on file prior to visit. ALLERGIES Allergen Reactions Adhesive Tape (Jamila* Other: See Comments Contact celluitis Crestor [Rosuvastat* Intolerance Lantus [Insulin Gla* Intolerance burning at local injection site Nickel Rash in jewelry; also Palladium which cross reacts with nickel in some cases. Palladium Rash Pravastatin Intolerance Muscle cramps Toradol [Ketorolac] Hives [facility] History of Present illness Narrative* Pérez Loya RN - 04/19/2022 10:14 AM EDT INSIGHT CD TELEPHONIC OUTREACH Updates routed to Dr. Davila Pt reports increased bilateral leg edema, Pt reports she is taking Lasix 40 mg Po three times dailyas ordered by Dr. Vance. Pt's weight is 223 lbs, she noted has lost 2 lbs, Pt has been sitting more, and thinks that is part of the problem, has not worn her compression stockings. Encouraged activity and wearing compression stockings, Pt verbalized understanding. Pt denies Sob, wheezing or coughing, speaking in full sentences, No respiratory distress. Instructed and Encouraged daily weights and low sodium diet. Discussed S/S to report: wt gain of 3 lbs or more in a day, or 5 lbs in a week, increased leg swelling, SOB Instructed to report changes in symptoms or condition immediately to Nephrology / PCP. Pt verbalized understanding. Pt will contact Dr. Vance Nephrology this AM for advisement related to leg edema. Contact made with patient: Yes Patient identified by name and . Discussed care with patient It s nice talking to you again. As a reminder, this is our bi-weekly check-in where I will be asking you questions about your health. This will only take a few minutes of your time. Is this a good time? Yes Symptoms What Chronic Disease(s) does the patient have: CHF and CKD Do you check your blood pressures at home? No Do you have new or worse shortness of breath with activity? No Do you have new or worsening trouble breathing while lying flat? No Do you have new or worsening swelling of legs, feet or ankles? Yes Do you feel like you are dehydrated for any reason, including not being able to eat or drink normally, or having less urine/much darker urine than normal for you? No Do you check your daily weight at home? Yes, Have you noticed a sudden gain in weight greater than three pounds in a day or three pounds in a week? No Are you having any other symptoms that your PCP needs to know about? Yes Symptom Escalation The patient required an escalation for symptom(s)? No Medications Do you have any questions about taking your medication or which medications you should be on? No Do you need any medication refills at this time, including any of the medications you might take only when needed? No Social We would like to make sure you have what you need so that your basic needs are met- including your personal safety, food, housing and medications? Would you like to speak with a social work steam table attendant to help give you support for any of these needs? No It can be normal to feel anxious or down during a time like this. Would you like to talk to a mental health professional about how you have been feeling? No Closing Thank you for taking the time to talk with me today. We want to work with you to ensure that we arekeeping your medical condition(s) well-controlled and to keep you healthy and out of the doctor's office or hospital. It s also not too late for me to sign you up for automated weekly questionnaires through [employer]. This is an easy way for us to stay connected each week. Are you interested? No, I understand. We can always sign you up in the future if you change your mind. Just as a reminder, will continue to call you every other week to check in on your health. Our calls should take 10-15 minutes or less. Remember, if you have concerns in between our calls, please call your PCP's office right away. Thank you. Enter next patient outreach date for two weeks on the same day of the week as today in the Track PtOutreach and End outreach. Shalini Ortez RN April 19, 2022 10:14 AM * Pérez Loya RN - 04/19/2022 10:08 AM EDT PRIMARY CARE COORDINATION QUICK NOTE Provider Action/FYI Spk with Pt related to [facility], Pt verbalized understanding. Roberto this is Shalini Ortez RN your nurse Floor Coverer Apprentice. I am calling to provide you with aphone number to connect you with [facility] services. This number is available 7 days a week from 8am-8pm and provides you with one call access to nursing, appointments, and other valuable resources. I can also send this information to your Orthoconehart. Please take the time to write this number down . Patient identified by name and date . Shalini Ortez RN April 19, 2022 10:08 AM * Pérez Loya RN - 04/18/2022 12:03 PM EDT PRIMARY CARE COORDINATION QUICK NOTE Provider Action/FYI Called Pt left a message, PCC will call back related to [facility]. Patient identified by name and date . Shalini Ortez RN April 18, 2022 12:03 PM documented in this encounterW[facility]02-[facility] History of Present illness Narrative* Pérez Loya RN - 04/11/2022 11:44 AM EDT INSIGHT CDM TELEPHONIC OUTREACH Provider Action/FYI: Routed updates to Dr. Arcenio Nashk with Pt, she reported Dr. Vance Nephrology has ordered Lasix 40 mg three times daily, she is taking Lasix as directed, she has bilateral foot edema that is not improved, has a follow up Appt with Dr. Vance this month. Denies Sob, wheezing or coughing or orthopnea. Instructed on importance of daily weights and low sodium diet, Discussed S/S to report: wt gain of 3 lbs or more in a day or 5 lbs in a week, increased leg swelling, SOB, elevating feet, and compression stockings, Pt verbalized understanding. Pt noted she has orthopedic shoes and is wearing compression stockings, Pt noted will contact Dr. Vance for symptom changes or concerns. Contact made with patient: Yes Patient identified by name and . Discussed care with patient It s nice talking to you again. As a reminder, this is our bi-weekly check-in where I will be asking you questions about your health. This will only take a few minutes of your time. Is this a good time? Yes Symptoms What Chronic Disease(s) does the patient have: CHF and CKD Do you check your blood pressures at home? No Do you have new or worse shortness of breath with activity? No Do you have new or worsening trouble breathing while lying flat? No Do you have new or worsening swelling of legs, feet or ankles? Yes Do you feel like you are dehydrated for any reason, including not being able to eat or drink normally, or having less urine/much darker urine than normal for you? No Do you check your daily weight at home? Yes, Have you noticed a sudden gain in weight greater than three pounds in a day or three pounds in a week? No Are you having any other symptoms that your PCP needs to know about? Yes Symptom Escalation The patient required an escalation for symptom(s)? No Medications Do you have any questions about taking your medication or which medications you should be on? No Do you need any medication refills at this time, including any of the medications you might take only when needed? No Social We would like to make sure you have what you need so that your basic needs are met- including your personal safety, food, housing and medications? Would you like to speak with a social work steam table attendant to help give you support for any of these needs? No It can be normal to feel anxious or down during a time like this. Would you like to talk to a mental health professional about how you have been feeling? No Closing Thank you for taking the time to talk with me today. We want to work with you to ensure that we arekeeping your medical condition(s) well-controlled and to keep you healthy and out of the doctor's office or hospital. It s also not too late for me to sign you up for automated weekly questionnaires through [employer]. This is an easy way for us to stay connected each week. Are you interested? No, I understand. We can always sign you up in the future if you change your mind. Just as a reminder, will continue to call you every other week to check in on your health. Our calls should take 10-15 minutes or less. Remember, if you have concerns in between our calls, please call your PCP's office right away. Thank you. Enter next patient outreach date for two weeks on the same day of the week as today in the Track PtOutreach and End outreach. Shalini Ortez RN April 11, 2022 11:44 AM * Pérez Loya RN - 04/10/2022 8:52 AM EDT INSIGHT CDM TELEPHONIC OUTREACH Provider Action/FYI: Spk with , Bhakti was in the shower and not available. Contact made with patient: Yes Patient identified by name and . Discussed care with spouse It s nice talking to you again. As a reminder, this is our bi-weekly check-in where I will be asking you questions about your health. This will only take a few minutes of your time. Is this a good time? No - today is not a good time for the patient. Agree on a call back time and connect with the patient then. If applicable, update the next patient outreach date using the Track Pt Outreach. 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 Return next year for battery replacement. Jordi Leonard documented in this encounterW[facility]07-14-2022 History of Present illness Narrative* Tamar Hernandez Pss - 03/23/2022 1:51 PM EDT appt scheduled * Max Best MD - 03/23/2022 1:13 PM EDT Virtual Visit utilizing both audio and video components MyChart-Zoom Assessment / Plan Problem: 1) Diabetes type 2. Sugars higher at lunch than other times of day, may need 16- 18 units Humalog atbreakfast. Some concern about whether the high Levemir dose at bed is to cover hyperglycemia after supper, and might becausing hypoglycemia during the night. I'll ask her to check sugar at bed and then 2AM, but she would benefit greatly from a Dexcom sensor. She checks sugars 3 times and day, and ta kes 5 shots of insulin per day Unchanged 1) Mixed hyperlipidemia, should get better with better sugar control 2) s/p Sleeve gastrectomy 3) CKD stage 3-4, following with Dr. María Vance 4) ABDI, has new BiPAP, using every night, and also with naps as much as possible (sometimes will fall asleep unexpectedly just sitting in a chair). 5) s/p Hip surgery, is walking around now, getting PT, notes it causes significant pain, but keeps at it. 6) s/p COVID vaccine x 4, discussed Paxlovid. 7) Thyroid CA, no labs in last 10 months, will check now. Treatment / Plan: 1) get the Dexcom sensor and start using it 2) increase the breakfast Humalog to 16-18 units. 3) check sugar at bedtime and 2 AM tonight, make sure you are not going low. 4) return to me in 6 weeks by virtual visit Max Best MD Data Review: diabetes data reviewed below Component Latest Ref Rng & Units 03/01/2021 Cholesterol, Total <200 mg/dL 229 (H) Triglyceride <150 mg/dL 326 (H) HDL Cholesterol >39 mg/dL 47 LDL Cholesterol <100 mg/dL 117 (H) Non HDL Cholesterol <130 mg/dL 182 (H) Component Latest Ref Rng & Units 12/13/2020 03/01/2021 Thyroglobulin 1.6 - 59.9 ng/mL <0.2 (L) TG Antibody Screen <14.4 IU/mL <1.0 TSH 0.270 - 4.200 uU/mL 6.930 (H) 6.940 (H) Free T4 0.9 - 1.7 ng/dL 1.1 0.9 Thyroglobulin Ab <14.4 IU/mL 1.2 History Diabetes type 2, BKT Lunch Dinner Levimir 7 105 14 182 14 163 14 72 Mar. 8 230 14+4 295 14+8 115 14 74 Mar. 9 175 14 222 14+4 117 14 74 Mar. 10 152 14 235 14+4 163 14 74 Mar. 11 253 14+6 163 14 119 14 74 Mar.12 195 14 (02/15/22): Levemir 20-40, Humalog 14-14-14 Hypothyroidism continues to take 175 mcg x 7.5/wk. s/p COVID vaccine x 4 Diabetes History Type (2003): dx diabetes type 2 Control hx Component Hemoglobin A1C Latest Ref Rng & Units 4.3 - 5.6 % 08/29/2019 6.8 02/20/2020 7.5 (H) 06/10/2020 8.2 (H) 12/17/2020 6.0 05/31/2021 7.2 (H) 11/28/2021 6.2 (H) Testing freq (11/11/15): 4x/d Eye hx (07/2015): no DM changes per pt Renal hx Component Albumin/Creat Ratio Latest Ref Rng 0 - 30 mg/g 02/16/2010 10 07/05/2010 9 05/08/2011 13 08/08/2013 9 02/02/2015 17 Component BUN Creatinine Latest Ref Rng & Units 7 - 21 mg/dL 0.58 - 0.96 mg/dL 09/13/2015 18 0.91 03/09/2016 16 1.01 06/07/2016 14 0.88 09/08/2017 30 (H) 1.40 (H) 03/27/2018 38 2.01 04/01/2018 27 1.68 12/02/2018 26 1.02 (04/02/18): 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 follows her Liver hx Component Bilirubin, Total Alkaline Phosphatase AST ALT Latest Ref Rng 0.0 - 1.5 mg/dL 40 - 150 U/L 7 - 40 U/L 0 - 45 U/L 07/02/2014 0.2 93 84 (H) 68 (H) 09/21/2014 0.3 74 26 24 06/23/2015 0.3 97 56 (H) 68 (H) 06/24/2015 0.3 89 57 (H) 72 (H) BP hx Vitals 06/24/2015 06/30/2015 09/04/2015 09/13/2015 11/11/2015 SITTING BP 121/64 104/67 120/70 130/80 100/62 (11/11/15): lisinopril 2.5 mg/d, metoprolol 25 mg 2x/d, Neuro hx (11/11/15): numb tingling dysesthesias in feet and legs, gets shaky sweaty with hypoglycemia Vascular hx (11/11/15): no hx [place], stroke Component Latest Ref Rng 02/20/2014 07/02/2014 09/24/2014 Triglyceride 30 - 149 mg/dL 133 134 158 (H) Cholesterol 100 - 199 mg/dL 170 189 186 HDL Cholesterol >55 mg/dL 53 (L) 62 45 (L) LDL Cholesterol 60 - 129 mg/dL 90 100 109 Non HDL Cholesterol 90 - 159 mg/dL 117 127 141 (11/11/15): niacin CR 500 mg 2x/d (06/02/19): no Rx lipids Sleep hx (11/11/15): has ABDI, on BiPAP, never sleeps without it (05/26/16): using BiPAP ever night Exercise hx (11/11/15): no exercise Medications (11/11/15): Victoza 1.8 mg daily, glimepiride 2 mg: AM=1, PM=1/2, metformin 500 mg ii-i-ii, sliding scale Humalog, using 1-3 units at a time. (05/26/16): Lantus 10 units, Victoza 1.8 mg/d, glimepiride 2 mg: AM=1, PM=09/11, metformin 500 mg ii-i-ii (11/28/16): Lantus 10 units, Victoza 1.8 mg/d, glimepiride 2 mg: AM=1, PM=09/11, metformin 500 mg ii-i-ii (04/16/17): Lantus 15 units at bed, Victoza 1.8 mg/d, glimepiride 2mg 2x/d, metformin 500 mg ii-i-ii (05/30/17): Lantus 28 units at bed, and meal Humalog 9-9-9-9 (i.e. taking another 9 units at bedtimesnack), Victoza 1.8 mg/d, glimepiride 2mg 2x/d, metformin 500 mg ii-i-ii (06/05/17): Levemir 17 units twice a day, and meal Humalog 12-11-10, plus sliding scale (09/11/17): Levemir 17 AM and HS, meal Humalog 12-11-10-9 (last is for snack), plus sliding scale1 per 20, goal 120 (12/18/17): Levemir 12 units AM & HS, Humalog 8-8-7-6 plus sliding scale, metformin 500mg 2-1-1 (04/02/18): Levemir 12 units AM and HS, and Humalog 8-8-7-6 plus sliding scale, has stopped metformin (05/27/18):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 sliding scale ) memantine (NAMENDA) 5 mg tablet Take 1 tablet by mouth twice daily. metoprolol tartrate, short acting, (LOPRESSOR) 25 mg tablet Take 1 tablet by mouth twice daily. pantoprazole DR (PROTONIX) 20 mg tablet Take 1 tablet by mouth twice daily. nitroglycerin sublingual (NITROQUICK) 0.4 mg SL tablet Dissolve 1 tablet under the tongue as needed. FOR CHEST PAIN. IF NO RELIEF CALL 911 diclofenac (VOLTAREN) 1 % topical gel Apply 4 g to affected area four times daily. Insulin Wales, Disposable, (BD ULTRAFINE III MINI PEN) 31 gauge x 3/16 1 Each as directed. 6 times daily. Dx:E11.40. On multiple insulin doses. DULoxetine (CYMBALTA) 60 mg capsule Take 1 capsule by mouth once daily. Lancets (ACCU-CHEK SOFTCLIX LANCETS) lancets Checking blood sugars 4 times daily. Dx: E11.42 furosemide (LASIX) 20 mg tablet Lasix 40 mg daily in the morning and 20 mg daily in the evening CPAP Auto bilevel with humidity set as follows: IPAP max 24, EPAP min 8 and PS 4-6 cmH2O. Comfort settings TiMax 2.0, TiMin 0.3, Trigger -M, Cycle-M. Continue using ResMed N20 nasal mask interface. melatonin 10 mg ODT Take 1 tablet by mouth at bedtime as needed. docusate sodium (COLACE ORAL) Take by mouth. lactulose (DUPHALAC, CONSTULOSE) 10 gram/15 mL solution 30 mL q 24 HR. ferrous sulfate 325 mg (65 mg iron) tablet Take 325 mg by mouth twice daily with meals. BIPAP calcium citrate (CITRACAL ORAL) Take 2 tablets by mouth twice daily. multivit-min/iron/folic acid/K (BARIATRIC MULTIVITAMINS ORAL) Take by mouth. fluticasone (FLONASE) 50 mcg/actuation nasal spray Use 2 Sprays in each nostril once daily. COMPOUNDED PRESCRIPTION Initiate BiPAP @ 15/9 cm of water with humidification. Mask (per patient preference) optional chin strap (if indicated) , filters, tubing, humidifier and lifetime supplies. Dx. ABDI 327.23 polyethylene glycol 3350(MIRALAX 100 % ORAL POWDER) 17 grams/8 0z water daily ASA LOW DOSE 81MG TAB EC Take one(1) tablet daily. No current facility-administered medications for this visit. FAMILY HISTORY Problem Relation Age of Onset COPD Mother at 64 yoa Ischemic Heart Disease Father Mi at 61 yoa GI Brother cirrhosis other (AAA rupture) Brother Lung cancer, 49 yoa Hypertension Sister 2 years younger Coronary Artery Disease Sister Stroke Sister Diabetes Sister Cancer Paternal Aunt Cervical cancer Diabetes Maternal Aunt Diabetes Paternal Aunt Diabetes Paternal Grandfather Heart Paternal Uncle other (parkinson) Son 41 SOCIAL HISTORY: Social History Tobacco Use Smoking status: Former Smoker Packs/day: 2.00 Years: 15.00 Pack years: 30.00 Quit date: 09/10/1991 Years since quittin.4 Smokeless tobacco: Never Used Substance Use Topics Alcohol use: No Drug use: No Bhakti denies regular aerobic exercise. She watches her diet for sodium, low fat and low cholesterolgenerally not very much. List of current specialists seen: Dr. Kraft, cardiology. Dr. Landen Best, endocrinology. Dr. Carpenter or Dr. Perez, podiatry. Dr. Maged Valles, pulmonary. Dr. Kvng Uribe, ophthalmology. Dr. Bush, orthopedics. Dr. Paolo Gonzales, orthopedics. End of Live Planning discussed including patients advanced directive wishes: Yes I am willing to follow Bhakti's advanced directives. PHQ-2 / Depression screen She in the past two weeks admits to having felt down, depressed, hopeless or with little interest or pleasure in doing things. Functional Ability/Safety Screen 1. Was the patient's timed Up and Go test unsteady or longer than 30 seconds? Yes 2. Does the patient need help with the phone, transportation, shopping,preparing meals, housework, laundry, medications or managing money? No 3. Does your home have rugs in the hallway, lack of grab bars in the bathroom, lack of handrails onthe stairs or have poor lighting? No Hearing Evaluation: wears hearing aids PHYSICAL EXAM LMP 06/27/2011 Alert and oriented X 3: YES BP 112/62 (BP Site: Left Arm, BP Position: Sitting, BP Cuff Size: Large Adult) Pulse 72 Temp 36.6 C (97.8 F) (Temporal Artery) Resp 16 Ht 152.4 cm (5') Wt 103 kg (227 lb) LMP 06/27/2011 BMI 44.33 kg/m Visual acuity: see vision tab. ASSESSMENT/PLAN: 76 year old female The following prevention plan was discussed during the office visit and provided to the patient: - Weight Loss - Fall avoidance - Lipid panel Jesus Davila MD documented in [facility] Instructions* Patient Instructions* Max Best MD - 02/15/2022 4:20 PM EDT Assessment / Plan Problem: 1) Diabetes type 2. Sugars generally high (mid 200s) in AM, then continue with some drop through the day. I will increase her bedtime Levemir and see how this improves the sugars. 2) s/p COVID vaccine x 4, discussed Paxlovid. 3) Thyroid CA, no labs in last 10 months, will check now. 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 María Vance 5) ABDI, has new BiPAP, using every night, and also with naps as much as possible (sometimes will fall asleep unexpectedly just sitting in a chair). 6) s/p Hip surgery, is walking around now, getting PT, notes it causes significant pain, but keeps at it. Treatment / Plan: 1) increase the Levemir at bedtime to 50 units 2) keep the other doses the same for now. 3) return to me in 5 weeks via virtual visit. 4) return to me in 3 months in person. 5) get labs done today, I'll send results via [facility]. Max Best MD documented in this [facility]06[facility]22 Nurse Note* Hector Loo MA - 02/15/2022 3:48 PM EDT Images from the original note were not included. documented in this encounterW[facility]06-[facility]22 History of Present illness Narrative* Max Best MD - 02/15/2022 3:40 PM EDT Images from the original note were not included. Assessment / Plan Problem: 1) Diabetes type 2. Sugars generally high (mid 200s) in AM, then continue with some drop through the day. I will increase her bedtime Levemir and see how this improves the sugars. 2) s/p COVID vaccine x 4, discussed Paxlovid. 3) Thyroid CA, no labs in last 10 months, will check now. 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 María Vance 5) ABDI, has new BiPAP, using every night, and also with naps as much as possible (sometimes will fall asleep unexpectedly just sitting in a chair). 6) s/p Hip surgery, is walking around now, getting PT, notes it causes significant pain, but keeps at it. Treatment / Plan: 1) increase the Levemir at bedtime to 50 units 2) keep the other doses the same for now. 3) return to me in 5 weeks via virtual visit. 4) return to me in 3 months in person. 5) get labs done today, I'll send results via [employer]. Max Best MD Data Review: diabetes data reviewed below Component Latest Ref Rng & Units 03/01/2021 Cholesterol, Total <200 mg/dL 229 (H) Triglyceride <150 mg/dL 326 (H) HDL Cholesterol >39 mg/dL 47 LDL Cholesterol <100 mg/dL 117 (H) Non HDL Cholesterol <130 mg/dL 182 (H) Component Latest Ref Rng & Units 12/13/2020 03/01/2021 Thyroglobulin 1.6 - 59.9 ng/mL <0.2 (L) TG Antibody Screen <14.4 IU/mL <1.0 TSH 0.270 - 4.200 uU/mL 6.930 (H) 6.940 (H) Free T4 0.9 - 1.7 ng/dL 1.1 0.9 Thyroglobulin Ab <14.4 IU/mL 1.2 History Diabetes type 2, (02/15/22): Levemir 20-40, Humalog 14-14-14 Hypothyroidism continues to take 175 mcg x 7.5/wk. s/p COVID vaccine x 4 Diabetes History Type (2003): dx diabetes type 2 Control hx Component Hemoglobin A1C Latest Ref Rng & Units 4.3 - 5.6 % 08/29/2019 6.8 02/20/2020 7.5 (H) 06/10/2020 8.2 (H) 12/17/2020 6.0 05/31/2021 7.2 (H) 11/28/2021 6.2 (H) Testing freq (11/11/15): 4x/d Eye hx (07/2015): no DM changes per pt Renal hx Component Albumin/Creat Ratio Latest Ref Rng 0 - 30 mg/g 02/16/2010 10 07/05/2010 9 05/08/2011 13 08/08/2013 9 02/02/2015 17 Component BUN Creatinine Latest Ref Rng & Units 7 - 21 mg/dL 0.58 - 0.96 mg/dL 09/13/2015 18 0.91 03/09/2016 16 1.01 06/07/2016 14 0.88 09/08/2017 30 (H) 1.40 (H) 03/27/2018 38 2.01 04/01/2018 27 1.68 12/02/2018 26 1.02 (04/02/18): 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 follows her Liver hx Component Bilirubin, Total Alkaline Phosphatase AST ALT Latest Ref Rng 0.0 - 1.5 mg/dL 40 - 150 U/L 7 - 40 U/L 0 - 45 U/L 07/02/2014 0.2 93 84 (H) 68 (H) 09/21/2014 0.3 74 26 24 06/23/2015 0.3 97 56 (H) 68 (H) 06/24/2015 0.3 89 57 (H) 72 (H) BP hx Vitals 06/24/2015 06/30/2015 09/04/2015 09/13/2015 11/11/2015 SITTING BP 121/64 104/67 120/70 130/80 100/62 (11/11/15): lisinopril 2.5 mg/d, metoprolol 25 mg 2x/d, Neuro hx (11/11/15): numb tingling dysesthesias in feet and legs, gets shaky sweaty with hypoglycemia Vascular hx (11/11/15): no hx [place], stroke Component Latest Ref Rng 02/20/2014 07/02/201409/24/2014 Triglyceride 30 - 149 mg/dL 133 134 158 (H) Cholesterol 100 - 199 mg/dL 170 189 186 HDL Cholesterol >55 mg/dL 53 (L) 62 45 (L) LDL Cholesterol 60 - 129 mg/dL 90 100 109 Non HDL Cholesterol 90 - 159 mg/dL 117 127 141 (11/11/15): niacin CR 500 mg 2x/d (06/02/19): no Rx lipids Sleep hx (11/11/15): has ABDI, on BiPAP, never sleeps without it (05/26/16): using BiPAP ever night Exercise hx (11/11/15): no exercise Medications (11/11/15): Victoza 1.8 mg daily, glimepiride 2 mg: AM=1, PM=09/11, metformin 500 mg ii-i-ii, sliding scale Humalog, using 1-3 units at a time. (05/26/16): Lantus 10 units, Victoza 1.8 mg/d, glimepiride 2 mg: AM=1, PM=1/2, metformin 500 mg ii-i-ii (11/28/16): Lantus 10 units, Victoza 1.8 mg/d, glimepiride 2 mg: AM=1, PM=12, metformin 500 mg ii-i-ii (04/16/17): Lantus 15 units at bed, Victoza 1.8 mg/d, glimepiride 2mg 2x/d, metformin 500 mg ii-i-ii (05/30/17): Lantus 28 units at bed, and meal Humalog 9--9-9 (i.e. taking another 9 units at bedtimesnack), Victoza 1.8 mg/d, glimepiride 2mg 2x/d, metformin 500 mg ii-i-ii (06/05/17): Levemir 17 units twice a day, and meal Humalog 12-11-10, plus sliding scale (09/11/17): Levemir 17 AM and HS, meal Humalog ---9 (last is for snack), plus sliding scale1 per 20, goal 120 (12/18/17): Levemir 12 units AM & HS, Humalog 8-8-7-6 plus sliding scale, metformin 500mg 2-1-1 (04/02/18): Levemir 12 units AM and HS, and Humalog 8-8-7-6 plus sliding scale, has stopped metformin (05/27/18): Levemir 22 units AM and HS, and Humalog 15-12-14-11 (08/27/18): Levemir 34 units 2x/d, Humalog 18-15-18-15 (12/04/18): Levemir 34 units 2x/d, Humalog 18-15-18-11 (03/06/19): Levemir 17 units in AM, 19 units in PM. 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 Jamey Ibrahim, [facility] Pathology (10/29/09): FNA Atypical cells present in a background of cyst contents, suspicious for papillary thyroid carcinoma (12/15/09): single well-circumscribed nodule in the right inferior lobe, which measured 3.5 cm in greatest dimension. The nodule was extensively hemorrhagic and cystic with a rim of viable material which ranges in appearance from papillary architecture to follicular structures. There is no evidence of a higher grade component. There is no definitive lymphovascular space invasion identified. In some areas, the tumor cells have oncocytic cytoplasm, however, the cells do not meet criteria for tall-cell variant of papillary thyroid carcinoma. Scan (02/24/10): post-Rx 131-Iodine scan, SIDDIQI (02/16/10): Rx 102.4 mCi 131-Iodine Thyroglobulin Component Thyroglobulin TG Antibody Screen Latest Ref Rng & Units 0.8 - 49.0 ng/mL <14.4 IU/mL 11/05/2009 75.7 (H) 1.0 01/18/2010 <0.2 (L) 1.1 02/16/2010 0.3 (L) 1.0 07/05/2010 <0.2 (L) 1.3 12/27/2010 <0.2 (L) 1.3 05/08/2011 <0.2 (L) 1.1 07/24/2011 <0.2 (L) 1.5 01/23/2012 <0.2 (L) 1.0 07/27/2012 <0.2 (L) <1.0 02/18/2013 <0.2 (L) <1.0 08/12/2013 <0.2 (L) <1.0 02/16/2014 <0.2 (L) <1.0 09/24/2014 <0.2 (L) <1.0 03/08/2015 <0.2 (L) 1.3 12/10/2015 <0.2 (L) <1.0 05/25/2016 <0.2 (L) <1.0 11/15/2016 <0.2 (L) 1.3 Vitamin D Component Vitamin D 25 Hydroxy Latest Ref Rng 31.0 - 80.0 ng/mL 01/18/2010 39.7 01/17/2011 48.1 07/24/2011 50.6 01/23/2012 40.2 02/18/2013 43.0 08/12/2013 40.0 02/16/2014 39.5 09/24/2014 36.0 Ultrasound (01/18/10): no suspicious adenopathy along great vessels or in lateral neck on either side. No masses in thyroid bed. (11/11/15): no suspicious adenopathy along great vessels or in lateral neck on either side. No massesin thyroid bed. (11/28/16): no suspicious adenopathy along great vessels or in lateral neck on either side. No masses in thyroid bed. ROS PHYSICAL EXAM PAST MED / SURG / FAMILY / SOCIAL HISTORY PAST MEDICAL HISTORY Diagnosis Date (HFpEF) heart failure with preserved ejection fraction (HCC) 06/23/2015 Dr. 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) 02/06/2015 Coronary artery calcification seen on CAT scan 01/21/2013 Depressive disorder 03/31/2016 Diverticulosis 08/23/2010 Diverticulosis of colon (without mention of hemorrhage) Edema GERD without esophagitis 09/02/2019 Hearing loss HTN (hypertension) 08/12/2014 Hypertensive kidney disease with stage 3a chronic kidney disease (HCC) 08/12/2014 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) 06/30/2020 Ingrown toenail Morbid obesity (HCC) Obstructive sleep apnea CPAP Other and unspecified hyperlipidemia Other dyspnea and respiratory abnormality Palpitations Primary osteoarthritis of both hips 08/18/2020 Rosacea Symptomatic menopausal or female climacteric states 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 Type II or unspecified type diabetes mellitus without mention of complication, not stated as uncontrolled 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 (HCC) 07/10/2018 Unspecified intestinal obstruction 10/2018 PAST SURGICAL HISTORY Procedure Laterality Date APPENDECTOMY 05/20/2001 open ARTHRP KNE CONDYLE&PLATU MEDIAL&LAT COMPARTMENTS Left 08/18/2014 Knee replacement, total left ARTHRP KNE CONDYLE&PLATU MEDIAL&LAT COMPARTMENTS Right 06/12/2012 total right knee arthroplasty ; THYROIDECTOMY TOTAL OR COMPLETE Bilateral 12/15/2009 Papillary Ca CHOLECYSTECTOMY 05/20/2001 Cholecystectomy-lap COLONOSCOPY FLX DX W/COLLJ SPEC WHEN PFRMD 06/06/2004 COLONOSCOPY FLX DX W/COLLJ SPEC WHEN PFRMD 08/23/2010 EXCISION EXCESSIVE SKIN & SUBQ TISSUE OTHER AREA 01/17/2002 Abdominoplasty EXPLORATORY LAPAROTOMY, CELIOTOMY-SP 06/24/2020 Takedown of enteroprosthetic fistula.Small bowel resection anastosmosis. Removal infected mesh. Recurrent vental hernia repair. HIP ARTHROSCOPY W/SYNOVECTOMY Right 09/19/2021 exc.seroma; gluteus repair; rotium augmentation; trochanteric bursectomy, iliotibial band resection LAPAROCOPIC SLEEVE GASTRECTOMY 03/10/2019 Extensive laparoscopic lysis of adhesions. EGD. Lap. TAP block. LEFT HEART CATH,PERCUTANEOUS 09/13/2017 no significant CAD NEPHRECTOMY PARTIAL Right 03/1991 Right side for benign tumor, small lesion removed REPAIR FIRST ABDOMINAL WALL HERNIA 09/25/2005 7 times total RPR 1ST INCAL/VNT HERNIA INCARCERATED 06/11/2007 with mesh TOTAL ABDOMINAL HYSTERECT W/WO RMVL TUBE OVARY 05/20/2001 PER, for fibroids and BSO TOTAL HIP REPLACEMENT Right 10/20/2020 anterior minimally invasive right total hip FAMILY HISTORY Problem Relation Age of Onset COPD Mother at 64 yoa Ischemic Heart Disease Father Mi at 61 yoa GI Brother cirrhosis other (AAA rupture) Brother Lung cancer, 49 yoa Hypertension Sister 2 years younger Coronary Artery Disease Sister Stroke Sister Diabetes Sister Cancer Paternal Aunt Cervical cancer Diabetes Maternal Aunt Diabetes Paternal Aunt Diabetes Paternal Grandfather Heart Paternal Uncle other (parkinson) Son 41 Social History Tobacco Use Smoking status: Former Smoker Packs/day: 2.00 Years: 15.00 Pack years: 30.00 Quit date: 09/10/1991 Years since quittin.4 Smokeless tobacco: Never Used Substance Use Topics Alcohol use: No Drug use: No MEDICATIONS & ALLERGIES Prior to Admission Medications: Current Outpatient Prescriptions on File Prior to Visit: HYDROcodone-Acetaminophen (NORCO) 10-325 mg per tablet Take 1 tablet by mouth every 6 hours as needed for Pain. fluticasone (FLONASE) 50 mcg/actuation nasal spray Use 2 Sprays in each nostril once daily. codeine-guaiFENesin (ROBITUSSIN AC) 10-100 mg/5 mL syrup Take 5-10 mL by mouth four times daily as needed for Cough. May cause drowsiness. furosemide (LASIX) 20 mg tablet Take 1 tablet by mouth twice daily. LORazepam (ATIVAN) 0.5 mg tab Take 1 tablet by mouth twice daily as needed. gabapentin (NEURONTIN) 300 mg capsule 2 AT HS AND ONE IN AM potassium chloride (K-TAB) 10 mEq tablet Take 1 tablet by mouth once daily. nitroglycerin sublingual (NITROQUICK) 0.4 mg SL tablet Dissolve 1 tablet under the tongue as needed. FOR CHEST PAIN. IF NO RELIEF CALL 911 Insulin Lispro, Human, (HUMALOG KWIKPEN) 100 unit/mL inpn 1-9 units before mealtime and at bedtime,according to sliding scale Insulin Wales, Disposable, (TIFFANIE PEN NEEDLE) 32 x 5/32 ndle use 4 times a day with Humalog pen blood sugar diagnostic (ACCU-CHEK SMARTVIEW TEST STRIP) test strip Use as instructed to test blood glucose 4 times daily (sugars currently uncontrolled, CKD stage 3) glimepiride (AMARYL) 2 mg tablet 1 pill in morning, and 1/2 pill at supper Lancets lancets Testing twice a day. DX:250.00 SYNTHROID 175 mcg tablet Take 1 tablet by mouth once daily. Take 8 tablets per week metFORMIN (GLUCOPHAGE) 500 mg tablet Take by mouth. take 2 in the morning, 1 at supper, 1 at bedtime lisinopril 2.5 mg tablet Take 1 tablet by mouth once daily. liraglutide (VICTOZA 3-DEVIN) 0.6 mg/0.1 mL (18 mg/3 mL) pnij Inject 1.8 mg subcutaneously once daily. metoprolol tartrate, short acting, (LOPRESSOR) 25 mg tablet Take 1 tablet by mouth twice daily. blood sugar diagnostic (CONTOUR TEST STRIPS) test strip Test blood sugar(s) 4 times daily. Dx: 250.0. Insulin: No niacin 500 mg CR capsule Take 1 capsule by mouth twice daily. leimm-0l-cqn-epa-fish oil-D3 360 mg-1,200 mg -1,000 unit cap Take by mouth three times daily. Insulin Wales, Disposable, (PEN NEEDLE) 29 x 1/2 ndle Use 1 time daily with injectable pen glimepiride (AMARYL) 1 mg tablet Take 1 tablet by mouth once daily. As directed (Patient taking differently: Take 2 mg by mouth once daily. As directed) COMPOUNDED PRESCRIPTION Initiate BiPAP @ 15/9 cm of water with humidification. Mask (per patient preference) optional chin strap (if indicated) , filters, tubing, humidifier and lifetime supplies. Dx. ABDI 327.23 diphenhydrAMINE (BENADRYL ALLERGY) 25 mg tablet Take 1 tablet by mouth every 6 hours as needed for Itching/Rash. COMPOUNDED PRESCRIPTION Pen Needle BD Ultra Fine 29 g 12.7 mm Twice a day as directed 250.00 insulin needles, DISPOSABLE, (PEN NEEDLE) 31 X 5/16 Ndle use as directed twice daily Omeprazole Magnesium (PRILOSEC) 10 mg SuDR Take by mouth as needed. Cholecalciferol, Vitamin D3, 1,000 unit ORAL Tab Take by mouth once daily. metroNIDAZOLE (METROGEL) 1 % TOPICAL gel Apply to affected area once daily. blood sugar diagnostic (ASCENSIA MICROFILL) Misc test strip Check before and after each meal and aths polyethylene glycol 3350(MIRALAX 100 % ORAL POWDER) 17 grams/8 0z water daily ASA LOW DOSE 81MG TAB EC Take one(1) tablet daily. No current facility-administered medications on file prior to visit. ALLERGIES Allergen Reactions Adhesive Tape (Jamila* Other: See Comments Contact celluitis Crestor [Rosuvastat* Intolerance Lantus [Insulin Gla* Intolerance burning at local injection site Nickel Rash in jewelry; also Palladium which cross reacts with nickel in some cases. Palladium Rash Pravastatin Intolerance Muscle cramps Toradol [Ketorolac] Hives documented in this [facility] History of Present illness Narrative* Pérez Loya RN - 02/13/2022 12:31 PM EDT INSIGHT CDM TELEPHONIC OUTREACH Provider Action/FYI: Spk with Pt she denies Sob, wheezing or coughing, she has started weighing self, wt 224-227 lbs as a recent baseline. Bilateral Leg edema has slightly improved, Pt instructed to contact Cardiology/ Nephrology/ PCP fornew or worsening symptoms, she verbalized understanding. Denies needs or concerns. Pt has a Podiatry Appt today, Appt 02/15/22 with Endocrinology, 03/02/22 Appt with PCP Contact made with patient: Yes Patient identified by name and . Discussed care with patient It s nice talking to you again. As a reminder, this is our bi-weekly check-in where I will be asking you questions about your health. This will only take a few minutes of your time. Is this a good time? Yes Symptoms What Chronic Disease(s) does the patient have: CHF and CKD Do you check your blood pressures at home? Yes, Enter readings: Not taken Do you have new or worse shortness of breath with activity? No Do you have new or worsening trouble breathing while lying flat? No Do you have new or worsening swelling of legs, feet or ankles? No Do you feel like you are dehydrated for any reason, including not being able to eat or drink normally, or having less urine/much darker urine than normal for you? No Do you check your daily weight at home? Yes, Have you noticed a sudden gain in weight greater than three pounds in a day or three pounds in a week? No Are you having any other symptoms that your PCP needs to know about? No Symptom Escalation The patient required an escalation for symptom(s)? No Medications Do you have any questions about taking your medication or which medications you should be on? No Do you need any medication refills at this time, including any of the medications you might take only when needed? No Social We would like to make sure you have what you need so that your basic needs are met- including your personal safety, food, housing and medications? Would you like to speak with a social work steam table attendant to help give you support for any of these needs? No It can be normal to feel anxious or down during a time like this. Would you like to talk to a mental health professional about how you have been feeling? No Closing Thank you for taking the time to talk with me today. We want to work with you to ensure that we arekeeping your medical condition(s) well-controlled and to keep you healthy and out of the doctor's office or hospital. It s also not too late for me to sign you up for automated weekly questionnaires through [employer]. This is an easy way for us to stay connected each week. Are you interested? No, I understand. We can always sign you up in the future if you change your mind. Just as a reminder, will continue to call you every other week to check in on your health. Our calls should take 10-15 minutes or less. Remember, if you have concerns in between our calls, please call your PCP's office right away. Thank you. Enter next patient outreach date for two weeks on the same day of the week as today in the Track PtOutreach and End outreach. Shalini Ortez RN February 13, 2022 12:31 PM documented in this encounterW[facility]06[facility]22 Miscellaneous Notes* Telephone Encounter - Jesus Davila MD - 02/10/2022 12:52 PM EDT See 01/27/22 phone encounter from [employer]. [facility] has been notified. * Telephone Encounter - Mikaela Schmid LPN - 02/10/2022 12:27 PM EDT Tracy with [facility] called and states pt was seen today and on paper she put down did not feel safe at home. [facility] is faxing last office visit and today's visit for your review regarding safety. Please watch for office visit notes. goes with pt to apts. Mikaela Schmid LPN documented in this encounterW[facility]05-25-2022 Miscellaneous Notes* Telephone Encounter - Jamee Vergara APRN.CNP - 02/01/2022 4:45 PM EDT PDMP website checked and validated. All prescriptions have been APPROPRIATELY filled. No suspiciousactivity was identified. 02/01/2022 by Jamee Vergara APRN.LIZ * Telephone Encounter - Godfrey Ni Ma - 02/01/2022 7:43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 Used Substance Use Topics Alcohol use: No Drug use: No MEDICATIONS & ALLERGIES Prior to Admission Medications: Current Outpatient Prescriptions on File Prior to Visit: HYDROcodone-Acetaminophen (NORCO) 10-325 mg per tablet Take 1 tablet by mouth every 6 hours as needed for Pain. fluticasone (FLONASE) 50 mcg/actuation nasal spray Use 2 Sprays in each nostril once daily. codeine-guaiFENesin (ROBITUSSIN AC) 10-100 mg/5 mL syrup Take 5-10 mL by mouth four times daily as needed for Cough. May cause drowsiness. furosemide (LASIX) 20 mg tablet Take 1 tablet by mouth twice daily. LORazepam (ATIVAN) 0.5 mg tab Take 1 tablet by mouth twice daily as needed. gabapentin (NEURONTIN) 300 mg capsule 2 AT HS AND ONE IN AM potassium chloride (K-TAB) 10 mEq tablet Take 1 tablet by mouth once daily. nitroglycerin sublingual (NITROQUICK) 0.4 mg SL tablet Dissolve 1 tablet under the tongue as needed. FOR CHEST PAIN. IF NO RELIEF CALL 911 Insulin Lispro, Human, (HUMALOG KWIKPEN) 100 unit/mL inpn 1-9 units before mealtime and at bedtime,according to sliding scale Insulin Wales, Disposable, (TIFFANIE PEN NEEDLE) 32 x 5/32 ndle use 4 times a day with Humalog pen blood sugar diagnostic (ACCU-CHEK SMARTVIEW TEST STRIP) test strip Use as instructed to test blood glucose 4 times daily (sugars currently uncontrolled, CKD stage 3) glimepiride (AMARYL) 2 mg tablet 1 pill in morning, and 1/2 pill at supper Lancets lancets Testing twice a day. DX:250.00 SYNTHROID 175 mcg tablet Take 1 tablet by mouth once daily. Take 8 tablets per week metFORMIN (GLUCOPHAGE) 500 mg tablet Take by mouth. take 2 in the morning, 1 at supper, 1 at bedtime lisinopril 2.5 mg tablet Take 1 tablet by mouth once daily. liraglutide (VICTOZA 3-DEVIN) 0.6 mg/0.1 mL (18 mg/3 mL) pnij Inject 1.8 mg subcutaneously once daily. metoprolol tartrate, short acting, (LOPRESSOR) 25 mg tablet Take 1 tablet by mouth twice daily. blood sugar diagnostic (CONTOUR TEST STRIPS) test strip Test blood sugar(s) 4 times daily. Dx: 250.0. Insulin: No niacin 500 mg CR capsule Take 1 capsule by mouth twice daily. awfva-8y-ybv-epa-fish oil-D3 360 mg-1,200 mg -1,000 unit cap Take by mouth three times daily. Insulin Wales, Disposable, (PEN NEEDLE) 29 x 1/2 ndle Use 1 time daily with injectable pen glimepiride (AMARYL) 1 mg tablet Take 1 tablet by mouth once daily. As directed (Patient taking differently: Take 2 mg by mouth once daily. As directed) COMPOUNDED PRESCRIPTION Initiate BiPAP @ 15/9 cm of water with humidification. Mask (per patient preference) optional chin strap (if indicated) , filters, tubing, humidifier and lifetime supplies. Dx. ABDI 327.23 diphenhydrAMINE (BENADRYL ALLERGY) 25 mg tablet Take 1 tablet by mouth every 6 hours as needed for Itching/Rash. COMPOUNDED PRESCRIPTION Pen Needle BD Ultra Fine 29 g 12.7 mm Twice a day as directed 250.00 insulin needles, DISPOSABLE, (PEN NEEDLE) 31 X 5/16 Ndle use as directed twice daily Omeprazole Magnesium (PRILOSEC) 10 mg SuDR Take by mouth as needed. Cholecalciferol, Vitamin D3, 1,000 unit ORAL Tab Take by mouth once daily. metroNIDAZOLE (METROGEL) 1 % TOPICAL gel Apply to affected area once daily. blood sugar diagnostic (ASCENSIA MICROFILL) Misc test strip Check before and after each meal and aths polyethylene glycol 3350(MIRALAX 100 % ORAL POWDER) 17 grams/8 0z water daily ASA LOW DOSE 81MG TAB EC Take one(1) tablet daily. No current facility-administered medications on file prior to visit. ALLERGIES Allergen Reactions Adhesive Tape (Jamila* Other: See Comments Contact celluitis Crestor [Rosuvastat* Intolerance Lantus [Insulin Gla* Intolerance burning at local injection site Nickel Rash in jewelry; also Palladium which cross reacts with nickel in some cases. Palladium Rash Pravastatin Intolerance Muscle cramps Toradol [Ketorolac] Hives [facility] History of Present illness Narrative* Pérez Loya RN - 12/08/2021 1:53 PM EDT [facility] TELEPHONIC OUTREACH Provider Action/FYI: Call to Pt left a message on home phone to verify CHF / CKD symptom status. Contact made with patient: No - Left message Roberto my name is Shalini Ortez RN your Floor Coverer Apprentice [facility] the [facility] I am calling today for your bi-weekly check in. I am sorry I missed your call. I will reach out to you again tomorrow. (if the third call I will reach out to you again next week) Enter next patient outreach date forthe following using the Track Pt Outreach. End outreach. Shalini Ortez RN December 08, 2021 1:53 PM documented [facility] History of Present illness Narrative* Pérez Loya RN - 12/07/2021 10:59 AM EDT [facility] TELEPHONIC OUTREACH Provider Action/FYI: Call to Pt left a message to verify CHF/ CKD symptom status and functional status after Hip surgery. Contact made with patient: No - Left message Hello my name is Shalini Ortez RN your Floor Coverer Apprentice [facility] the [facility] I am calling today for your bi-weekly check in. I am sorry I missed your call. I will reach out to you again tomorrow. (if the third call I will reach out to you again next week) Enter next patient outreach date forthe following business day using the Track Pt Outreach. End outreach. Shalini Ortez RN December 07, 2021 10:59 AM * Pérez Loya RN - 12/06/2021 11:12 AM EDT [facility] TELEPHONIC OUTREACH Provider Action/FYI: Call to Pt left a message to verify CHF/ CKD symptom status and functional status after Hip surgery. Contact made with patient: No - Left message Hello my name is Shalini Ortez RN your Floor Coverer Apprentice from the [facility] I am calling today for your bi-weekly check in. I am sorry I missed your call. I will reach out to you again tomorrow. (if the third call I will reach out to you again next week) Enter next patient outreach date forthe following business day using the Track Pt Outreach. End outreach. Shalini Ortez RN December 06, 2021 11:12 AM documented in this [facility] Instructions* Instruction Description Start Date Patient advised to follow-up with Primary Care Physician for BMI management. [facility] Work Phone: [phone] 745-792406-01-2021 Note. MICRO - Microbiology PROCEDURE: Culture Body Fluid with Gram Stain [*1] SOURCE: Body Fluid, BODY SITE: Hip R Miscellaneous COLLECTED DATE/TIME: 02/01/2021 08:06 EDT RECEIVED DATE/TIME: 02/01/2021 15:51 EDT START DATE/TIME: 02/01/2021 15:51 EDT FREE TEXT SOURCE: FINAL REPORTS Final Report [] Verified Date/Time/Personnel: 02/08/2021 08:04 EDT No growth at 7 days. PRELIMINARY REPORTS Preliminary Report [] Verified Date/Time/Personnel: 02/02/2021 09:43 EDT No growth to date STAINS GS [] Verified Date/Time/Personnel: 02/01/2021 17:47 EDT No organisms seen. Performing Locations *1: This test was performed at: [facility], [address] [place] [address], [address] [place] [address] ([place])Comment on above:Performed By: #### CBF #### [place] [address]-02-2020 History of Past illness Narrative* Problem Noted Date Resolved Date Postoperative abdominal pain 07/12/202011/2020 Mild protein-calorie malnutrition 06/28/2020 06/29/2020 Infected prosthetic mesh of abdominal wall 06/2006/30/2020 Obesity, Class II, BMI 35-39.9 06/13/2019 1 10/17/2019 SBO (small bowel obstruction) 06/07/2019 Morbid obesity 03/10/2019 06/13/2019 Abnormal cardiovascular stress test 09/11/2017 10/15/2017 Primary osteoarthritis of right hip 11/27/2016 08/18/2020 Trochanteric bursitis of right hip 11/27/2016 08/18/2020 Dyspnea, unspecified 03/08/2016 08/16/2020 Angiomyolipoma of right kidney 01/11/2016 1 Essential hypertension with goal blood pressure less than 140/90 12/13/2015 04/12/2017 Obstructive sleep apnea syndrome 12/13/2015 04/12/2017 Superficial skin infection 08/31/201503/13 CKD stage 3 due to type 2 diabetes mellitus 01/1011/16/2018 Overview: Dr. Lilian Vance, nephrology BMI 45.0-49.9, adult 02/06/2015 12/01/2019 Venous insufficiency 02/06/2015 04/12/2017 DM type 2 causing CKD stage 3 09/21/2014 Overview: Dr Landen Best, endocrinology Degenerative arthritis of hip 07/01/2014 BMI 45.0-49.9, adult 03/31/2014 10/13/2014 Diabetes mellitus type II, uncontrolled 11/26/19 14 02/06/2015 BMI 40.0-44.9, adult 10/14/2013 03/31/2014 Chest pain 09/13/2012 03/13/2016 Overview: Substernal pressure lasting ~5hrs, partially relieved with SLN. Significant risk factors for CAD (HTN, HLD, DM). EKG does to show ST changes. Initial CE at [facility] are supposedly negative. Prior stress test in 2010 was normal. DM well controlled. Currently low likelihood for ACS. - EKG - trend Donald - stress test vs [facility] S/P total knee replacement using cement 07/02/20 12 07/15/2018 Degenerative arthritis of right knee 06/10/2012 08/12/2014 Allergic contact dermatitis due to metals 201108/16/2020 Sensorineural hearing loss, bilateral 07/19/2011 08/16/2020 Diverticulosis 08/23/2010 03/13/2016 Thyroid CA 02/21/2010 08/12/2014 Overview: * Surgery (12/15/09): total thyroidectomy, Dr. Jamey Ibrahim, [facility] * Path (10/29/09): FNA Atypical cells present in a background of cyst contents, suspicious for papillary thyroid carcinoma (12/15/09): single well-circumscribed nodule in the right inferior lobe, which measured 3.5 cm in greatest dimension. The nodule was extensively hemorrhagic and cystic with a rim of viable material which ranges in appearance from papillary architecture to follicular structures. There is no evidence of a higher grade component. There is no definitive lymphovascular space invasion identified. In some areas, the tumor cells have oncocytic cytoplasm, however, the cells do not meet criteria for tall-cell variant of papillary thyroid carcinoma. * SIDDIQI (02/17/10): Rx 131-Iodine 102.4 mCi, Thyrogen-stim * Scan (02/24/10): post-treatment scan (Thyrogen-stim) shows uptake in left neck, also in liver area. SPECT images show one focus of uptake in lateral segment of the left lobe of the liver, one in the medial segment of the left lobe of liver, and one in the posterior segment of the right lobe of the liver. (05/03/11): Thyrogen stim 123-Iodine scan negative * Thyroglobulin Component Thyroglobulin TG Antibody Screen Stimulation Latest Ref Rng 0.8 - 49.0 ng/mL <14.4 IU/mL 11/05/2009 75.7 (H) 1.0 01/18/2010 <0.2 (L) 1.1 02/16/2010 0.3 (L) 1.0 Thyrogen 07/05/2010 <0.2 (L) 1.3 12/27/2010 <0.2 (L) 1.3 05/08/2011 <0.2 (L) 1.1 Thyrogen 07/24/2011 <0.2 (L) 1.5 01/23/2012 <0.2 (L) 1.0 07/27/2012 <0.2 (L) <1.0 02/18/2013 <0.2 (L) <1.0 08/12/2013 <0.2 (L) <1.0 * mRNA (11/03/09): TSH-R mRNA=1.7 ng/ug (11/30/09): TSH-R mRNA=1.8 ng/ug (01/18/10): no TSH-R mRNA assay postop (07/05/10): TSH-R mRNA <1.0 ng/ug (12/27/10): TSH-R mRNA <1.0 ng/ug * Ultrasound (01/18/10): no suspicious adenopathy along great vessels or in lateral neck on either side. No masses in thyroid bed. (12/27/10): no suspicious adenopathy along great vessels or in lateral neck on either side. No masses in thyroid bed. (01/24/12): no suspicious adenopathy along great vessels or in lateral neck on either side. No masses in thyroid bed. (08/11/13): no suspicious adenopathy along great vessels or in lateral neck on either side. No masses in thyroid bed. Thyroid nodule 10/20/2009 03/02/2010 Incisional hernia without mention of obstruction or gangrene 09/12/2005 08/12/2014 Symptomatic menopausal or female climacteric sta aniceto 04/07/2003 10/15/2017 Diabetes mellitus type 2 03/02/2003 014 Overview: *Type (): dx type 2 diabetes *Control hx Component Hemoglobin A1C Latest Ref Rng 4.0 - 6.0 % 01/17/2011 6.8 05/08/2011 7.2 07/24/2011 6.8 01/23/2012 6.7 07/27/2012 6.1 (H) 02/18/2013 6.4 (H) 08/08/2013 7.0 (H) 10/13/2013 7.1 (H) 02/17/14 7.3 * Eye hx (10/2008): no DM changes per Dr. Campoverde (07/2013): no DM changes per pt, exam Dr. Campoverde * Renal hx Component Albumin/Creat Ratio Latest Ref Rng 0 - 30 mg/g 04/03/2005 8 05/03/2006 8 03/26/2008 13 01/22/2009 18 02/16/2010 10 07/05/2010 9 05/08/2011 13 08/08/2013 9 * Vascular hx (11/12/13): no hx [place], stroke, Component Latest Ref Rng 02/18/2013 08/12/2013 10/13/2013 Triglyceride 30 - 149 mg/dL 114 123 126 Cholesterol 100 - 199 mg/dL 196 192 187 HDL Cholesterol >55 mg/dL 47 (L) 58 52 (L) VLDL Cholesterol 6 - 40 mg/dL 23 25 25 LDL Cholesterol 60 - 129 mg/dL 126 109 110 Fasting Time FASTING FASTING fasting TC:HDL Ratio 1.00 - 5.00 4.17 3.31 3.60 LDL:HDL Ratio 0.50 - 3.55 2.68 1.88 2.12 Non HDL Cholesterol 90 - 159 mg/dL 149 134 135 * Sleep (11/12/13): has obstructive sleep apnea, uses BiPAP since titration 04/07/13 * Exercise (11/12/13): not exercisnig * Medications (11/12/13): Victoza 1.8 mg daily, metformin 500 mg 2-1-1, * Physician (11/12/13): primary physician is Hayley Malone Morbid obesity 03/02/2003 07/15/2014 HYPERLIPIDEMIA NEC/NOS 5 documented as of this encounter (statuses as of 12/07/2021) [facility] of Past illness Narrative* Problem Noted Date Resolved Date Postoperative abdominal pain 07/12/202011/2020 Mild protein-calorie malnutrition 06/28/2020 06/29/2020 Infected prosthetic mesh of abdominal wall 06/2006/30/2020 Obesity, Class II, BMI 35-39.9 06/13/2019 1 10/17/2019 SBO (small bowel obstruction) 06/07/2019 Morbid obesity 03/10/2019 06/13/2019 Abnormal cardiovascular stress test 09/11/2017 10/15/2017 Primary osteoarthritis of right hip 11/27/2016 08/18/2020 Trochanteric bursitis of right hip 11/27/2016 08/18/2020 Dyspnea, unspecified 03/08/2016 08/16/2020 Angiomyolipoma of right kidney 01/11/2016 1 Essential hypertension with goal blood pressure less than 140/90 12/13/2015 04/12/2017 Obstructive sleep apnea syndrome 12/13/2015 04/12/2017 Superficial skin infection 08/31/201503/13 CKD stage 3 due to type 2 diabetes mellitus 01/1011/16/2018 Overview: Dr. Lilian Vance, nephrology BMI 45.0-49.9, adult 02/06/2015 12/01/2019 Venous insufficiency 02/06/2015 04/12/2017 DM type 2 causing CKD stage 3 09/21/2014 Overview: Dr Landen Best, endocrinology Degenerative arthritis of hip 07/01/2014 BMI 45.0-49.9, adult 03/31/2014 10/13/2014 Diabetes mellitus type II, uncontrolled 11/26/19 14 02/06/2015 BMI 40.0-44.9, adult 10/14/2013 03/31/2014 Chest pain 09/13/2012 03/13/2016 Overview: Substernal pressure lasting ~5hrs, partially relieved with SLN. Significant risk factors for CAD (HTN, HLD, DM). EKG does to show ST changes. Initial CE at [facility] are supposedly negative. Prior stress test in 2010 was normal. DM well controlled. Currently low likelihood for ACS. - EKG - trend Donald - stress test vs [facility] S/P total knee replacement using cement 07/02/20 12 07/15/2018 Degenerative arthritis of right knee 06/10/2012 08/12/2014 Allergic contact dermatitis due to metals 201108/16/2020 Sensorineural hearing loss, bilateral 07/19/2011 08/16/2020 Diverticulosis 08/23/2010 03/13/2016 Thyroid CA 02/21/2010 08/12/2014 Overview: * Surgery (12/15/09): total thyroidectomy, Dr. Jamey Ibrahim, [facility] * Path (10/29/09): FNA Atypical cells present in a background of cyst contents, suspicious for papillary thyroid carcinoma (12/15/09): single well-circumscribed nodule in the right inferior lobe, which measured 3.5 cm in greatest dimension. The nodule was extensively hemorrhagic and cystic with a rim of viable material which ranges in appearance from papillary architecture to follicular structures. There is no evidence of a higher grade component. There is no definitive lymphovascular space invasion identified. In some areas, the tumor cells have oncocytic cytoplasm, however, the cells do not meet criteria for tall-cell variant of papillary thyroid carcinoma. * SIDDIQI (02/17/10): Rx 131-Iodine 102.4 mCi, Thyrogen-stim * Scan (02/24/10): post-treatment scan (Thyrogen-stim) shows uptake in left neck, also in liver area. SPECT images show one focus of uptake in lateral segment of the left lobe of the liver, one in the medial segment of the left lobe of liver, and one in the posterior segment of the right lobe of the liver. (05/03/11): Thyrogen stim 123-Iodine scan negative * Thyroglobulin Component Thyroglobulin TG Antibody Screen Stimulation Latest Ref Rng 0.8 - 49.0 ng/mL <14.4 IU/mL 11/05/2009 75.7 (H) 1.0 01/18/2010 <0.2 (L) 1.1 02/16/2010 0.3 (L) 1.0 Thyrogen 07/05/2010 <0.2 (L) 1.3 12/27/2010 <0.2 (L) 1.3 05/08/2011 <0.2 (L) 1.1 Thyrogen 07/24/2011 <0.2 (L) 1.5 01/23/2012 <0.2 (L) 1.0 07/27/2012 <0.2 (L) <1.0 02/18/2013 <0.2 (L) <1.0 08/12/2013 <0.2 (L) <1.0 * mRNA (11/03/09): TSH-R mRNA=1.7 ng/ug (11/30/09): TSH-R mRNA=1.8 ng/ug (01/18/10): no TSH-R mRNA assay postop (07/05/10): TSH-R mRNA <1.0 ng/ug (12/27/10): TSH-R mRNA <1.0 ng/ug * Ultrasound (01/18/10): no suspicious adenopathy along great vessels or in lateral neck on either side. No masses in thyroid bed. (12/27/10): no suspicious adenopathy along great vessels or in lateral neck on either side. No masses in thyroid bed. (01/24/12): no suspicious adenopathy along great vessels or in lateral neck on either side. No masses in thyroid bed. (08/11/13): no suspicious adenopathy along great vessels or in lateral neck on either side. No masses in thyroid bed. Thyroid nodule 10/20/2009 03/02/2010 Incisional hernia without mention of obstruction or gangrene 09/12/2005 08/12/2014 Symptomatic menopausal or female climacteric sta aniceto 04/07/2003 10/15/2017 Diabetes mellitus type 2 03/02/2003 014 Overview: *Type (): dx type 2 diabetes *Control hx Component Hemoglobin A1C Latest Ref Rng 4.0 - 6.0 % 01/17/2011 6.8 05/08/2011 7.2 07/24/2011 6.8 01/23/2012 6.7 07/27/2012 6.1 (H) 02/18/2013 6.4 (H) 08/08/2013 7.0 (H) 10/13/2013 7.1 (H) 02/17/14 7.3 * Eye hx (10/2008): no DM changes per Dr. Campoverde (07/2013): no DM changes per pt, exam Dr. Campoverde * Renal hx Component Albumin/Creat Ratio Latest Ref Rng 0 - 30 mg/g 04/03/2005 8 05/03/2006 8 03/26/2008 13 01/22/2009 18 02/16/2010 10 07/05/2010 9 05/08/2011 13 08/08/2013 9 * Vascular hx (11/12/13): no hx [place], stroke, Component Latest Ref Rng 02/18/2013 08/12/2013 10/13/2013 Triglyceride 30 - 149 mg/dL 114 123 126 Cholesterol 100 - 199 mg/dL 196 192 187 HDL Cholesterol >55 mg/dL 47 (L) 58 52 (L) VLDL Cholesterol 6 - 40 mg/dL 23 25 25 LDL Cholesterol 60 - 129 mg/dL 126 109 110 Fasting Time FASTING FASTING fasting TC:HDL Ratio 1.00 - 5.00 4.17 3.31 3.60 LDL:HDL Ratio 0.50 - 3.55 2.68 1.88 2.12 Non HDL Cholesterol 90 - 159 mg/dL 149 134 135 * Sleep (11/12/13): has obstructive sleep apnea, uses BiPAP since titration 04/07/13 * Exercise (11/12/13): not exercisnig * Medications (11/12/13): Victoza 1.8 mg daily, metformin 500 mg 2-1-1, * Physician (11/12/13): primary physician is Hayley Malone Morbid obesity 03/02/2003 07/15/2014 HYPERLIPIDEMIA NEC/NOS 5 documented as of this encounter (statuses as of 12/08/2021) [facility] History of Past illness Narrative* Problem Noted Date Resolved Date Postoperative abdominal pain 07/12/202011/2020 Mild protein-calorie malnutrition 06/28/2020 06/29/2020 Infected prosthetic mesh of abdominal wall 06/2006/30/2020 Obesity, Class II, BMI 35-39.9 06/13/2019 1 10/17/2019 SBO (small bowel obstruction) 06/07/2019 Morbid obesity 03/10/2019 06/13/2019 Abnormal cardiovascular stress test 09/11/2017 10/15/2017 Primary osteoarthritis of right hip 11/27/2016 08/18/2020 Trochanteric bursitis of right hip 11/27/2016 08/18/2020 Dyspnea, unspecified 03/08/2016 08/16/2020 Angiomyolipoma of right kidney 01/11/2016 1 Essential hypertension with goal blood pressure less than 140/90 12/13/2015 04/12/2017 Obstructive sleep apnea syndrome 12/13/2015 04/12/2017 Superficial skin infection 08/31/201503/13 CKD stage 3 due to type 2 diabetes mellitus 01/1011/16/2018 Overview: Dr. Lilian Vance, nephrology BMI 45.0-49.9, adult 02/06/2015 12/01/2019 Venous insufficiency 02/06/2015 04/12/2017 DM type 2 causing CKD stage 3 09/21/2014 Overview: Dr Landen Best, endocrinology Degenerative arthritis of hip 07/01/2014 BMI 45.0-49.9, adult 03/31/2014 10/13/2014 Diabetes mellitus type II, uncontrolled 11/26/19 14 02/06/2015 BMI 40.0-44.9, adult 10/14/2013 03/31/2014 Chest pain 09/13/2012 03/13/2016 Overview: Substernal pressure lasting ~5hrs, partially relieved with SLN. Significant risk factors for CAD (HTN, HLD, DM). EKG does to show ST changes. Initial CE at [facility] are supposedly negative. Prior stress test in 2010 was normal. DM well controlled. Currently low likelihood for ACS. - EKG - trend Donald - stress test vs [facility] S/P total knee replacement using cement 07/02/20 12 07/15/2018 Degenerative arthritis of right knee 06/10/2012 08/12/2014 Allergic contact dermatitis due to metals 201108/16/2020 Sensorineural hearing loss, bilateral 07/19/2011 08/16/2020 Diverticulosis 08/23/2010 03/13/2016 Thyroid CA 02/21/2010 08/12/2014 Overview: * Surgery (12/15/09): total thyroidectomy, Dr. Jamey Ibrahim, [facility] * Path (10/29/09): FNA Atypical cells present in a background of cyst contents, suspicious for papillary thyroid carcinoma (12/15/09): single well-circumscribed nodule in the right inferior lobe, which measured 3.5 cm in greatest dimension. The nodule was extensively hemorrhagic and cystic with a rim of viable material which ranges in appearance from papillary architecture to follicular structures. There is no evidence of a higher grade component. There is no definitive lymphovascular space invasion identified. In some areas, the tumor cells have oncocytic cytoplasm, however, the cells do not meet criteria for tall-cell variant of papillary thyroid carcinoma. * SIDDIQI (02/17/10): Rx 131-Iodine 102.4 mCi, Thyrogen-stim * Scan (02/24/10): post-treatment scan (Thyrogen-stim) shows uptake in left neck, also in liver area. SPECT images show one focus of uptake in lateral segment of the left lobe of the liver, one in the medial segment of the left lobe of liver, and one in the posterior segment of the right lobe of the liver. (05/03/11): Thyrogen stim 123-Iodine scan negative * Thyroglobulin Component Thyroglobulin TG Antibody Screen Stimulation Latest Ref Rng 0.8 - 49.0 ng/mL <14.4 IU/mL 11/05/2009 75.7 (H) 1.0 01/18/2010 <0.2 (L) 1.1 02/16/2010 0.3 (L) 1.0 Thyrogen 07/05/2010 <0.2 (L) 1.3 12/27/2010 <0.2 (L) 1.3 05/08/2011 <0.2 (L) 1.1 Thyrogen 07/24/2011 <0.2 (L) 1.5 01/23/2012 <0.2 (L) 1.0 07/27/2012 <0.2 (L) <1.0 02/18/2013 <0.2 (L) <1.0 08/12/2013 <0.2 (L) <1.0 * mRNA (11/03/09): TSH-R mRNA=1.7 ng/ug (11/30/09): TSH-R mRNA=1.8 ng/ug (01/18/10): no TSH-R mRNA assay postop (07/05/10): TSH-R mRNA <1.0 ng/ug (12/27/10): TSH-R mRNA <1.0 ng/ug * Ultrasound (01/18/10): no suspicious adenopathy along great vessels or in lateral neck on either side. No masses in thyroid bed. (12/27/10): no suspicious adenopathy along great vessels or in lateral neck on either side. No masses in thyroid bed. (01/24/12): no suspicious adenopathy along great vessels or in lateral neck on either side. No masses in thyroid bed. (08/11/13): no suspicious adenopathy along great vessels or in lateral neck on either side. No masses in thyroid bed. Thyroid nodule 10/20/2009 03/02/2010 Incisional hernia without mention of obstruction or gangrene 09/12/2005 08/12/2014 Symptomatic menopausal or female climacteric sta aniceto 04/07/2003 10/15/2017 Diabetes mellitus type 2 03/02/2003 014 Overview: *Type (): dx type 2 diabetes *Control hx Component Hemoglobin A1C Latest Ref Rng 4.0 - 6.0 % 01/17/2011 6.8 05/08/2011 7.2 07/24/2011 6.8 01/23/2012 6.7 07/27/2012 6.1 (H) 02/18/2013 6.4 (H) 08/08/2013 7.0 (H) 10/13/2013 7.1 (H) 02/17/14 7.3 * Eye hx (10/2008): no DM changes per Dr. Campoverde (07/2013): no DM changes per pt, exam Dr. Campoverde * Renal hx Component Albumin/Creat Ratio Latest Ref Rng 0 - 30 mg/g 04/03/2005 8 05/03/2006 8 03/26/2008 13 01/22/2009 18 02/16/2010 10 07/05/2010 9 05/08/2011 13 08/08/2013 9 * Vascular hx (11/12/13): no hx [place], stroke, Component Latest Ref Rng 02/18/2013 08/12/2013 10/13/2013 Triglyceride 30 - 149 mg/dL 114 123 126 Cholesterol 100 - 199 mg/dL 196 192 187 HDL Cholesterol >55 mg/dL 47 (L) 58 52 (L) VLDL Cholesterol 6 - 40 mg/dL 23 25 25 LDL Cholesterol 60 - 129 mg/dL 126 109 110 Fasting Time FASTING FASTING fasting TC:HDL Ratio 1.00 - 5.00 4.17 3.31 3.60 LDL:HDL Ratio 0.50 - 3.55 2.68 1.88 2.12 Non HDL Cholesterol 90 - 159 mg/dL 149 134 135 * Sleep (11/12/13): has obstructive sleep apnea, uses BiPAP since titration 04/07/13 * Exercise (11/12/13): not exercisnig * Medications (11/12/13): Victoza 1.8 mg daily, metformin 500 mg 2-1-1, * Physician (11/12/13): primary physician is Hayley Malone Morbid obesity 03/02/2003 07/15/2014 HYPERLIPIDEMIA NEC/NOS 5 documented as of this encounter (statuses as of 12/11/2021) [facility]11-02-2020 History of Past illness Narrative* Problem Noted Date Resolved Date Postoperative abdominal pain 07/12/202011/2020 Mild protein-calorie malnutrition 06/28/2020 06/29/2020 Infected prosthetic mesh of abdominal wall 06/2006/30/2020 Obesity, Class II, BMI 35-39.9 06/13/2019 1 10/17/2019 SBO (small bowel obstruction) 06/07/2019 Morbid obesity 03/10/2019 06/13/2019 Abnormal cardiovascular stress test 09/11/2017 10/15/2017 Primary osteoarthritis of right hip 11/27/2016 08/18/2020 Trochanteric bursitis of right hip 11/27/2016 08/18/2020 Dyspnea, unspecified 03/08/2016 08/16/2020 Angiomyolipoma of right kidney 01/11/2016 1 Essential hypertension with goal blood pressure less than 140/90 12/13/2015 04/12/2017 Obstructive sleep apnea syndrome 12/13/2015 04/12/2017 Superficial skin infection 08/31/201503/13 CKD stage 3 due to type 2 diabetes mellitus 01/1011/16/2018 Overview: Dr. Lilian Vance, nephrology BMI 45.0-49.9, adult 02/06/2015 12/01/2019 Venous insufficiency 02/06/2015 04/12/2017 DM type 2 causing CKD stage 3 09/21/2014 Overview: Dr Landen Best, endocrinology Degenerative arthritis of hip 07/01/2014 BMI 45.0-49.9, adult 03/31/2014 10/13/2014 Diabetes mellitus type II, uncontrolled 11/26/19 14 02/06/2015 BMI 40.0-44.9, adult 10/14/2013 03/31/2014 Chest pain 09/13/2012 03/13/2016 Overview: Substernal pressure lasting ~5hrs, partially relieved with SLN. Significant risk factors for CAD (HTN, HLD, DM). EKG does to show ST changes. Initial CE at [facility] are supposedly negative. Prior stress test in 2010 was normal. DM well controlled. Currently low likelihood for ACS. - EKG - trend Donald - stress test vs [facility] S/P total knee replacement using cement 07/02/20 12 07/15/2018 Degenerative arthritis of right knee 06/10/2012 08/12/2014 Allergic contact dermatitis due to metals 201108/16/2020 Sensorineural hearing loss, bilateral 07/19/2011 08/16/2020 Diverticulosis 08/23/2010 03/13/2016 Thyroid CA 02/21/2010 08/12/2014 Overview: * Surgery (12/15/09): total thyroidectomy, Dr. Jamey Ibrahim, [facility] * Path (10/29/09): FNA Atypical cells present in a background of cyst contents, suspicious for papillary thyroid carcinoma (12/15/09): single well-circumscribed nodule in the right inferior lobe, which measured 3.5 cm in greatest dimension. The nodule was extensively hemorrhagic and cystic with a rim of viable material which ranges in appearance from papillary architecture to follicular structures. There is no evidence of a higher grade component. There is no definitive lymphovascular space invasion identified. In some areas, the tumor cells have oncocytic cytoplasm, however, the cells do not meet criteria for tall-cell variant of papillary thyroid carcinoma. * SIDDIQI (02/17/10): Rx 131-Iodine 102.4 mCi, Thyrogen-stim * Scan (02/24/10): post-treatment scan (Thyrogen-stim) shows uptake in left neck, also in liver area. SPECT images show one focus of uptake in lateral segment of the left lobe of the liver, one in the medial segment of the left lobe of liver, and one in the posterior segment of the right lobe of the liver. (05/03/11): Thyrogen stim 123-Iodine scan negative * Thyroglobulin Component Thyroglobulin TG Antibody Screen Stimulation Latest Ref Rng 0.8 - 49.0 ng/mL <14.4 IU/mL 11/05/2009 75.7 (H) 1.0 01/18/2010 <0.2 (L) 1.1 02/16/2010 0.3 (L) 1.0 Thyrogen 07/05/2010 <0.2 (L) 1.3 12/27/2010 <0.2 (L) 1.3 05/08/2011 <0.2 (L) 1.1 Thyrogen 07/24/2011 <0.2 (L) 1.5 01/23/2012 <0.2 (L) 1.0 07/27/2012 <0.2 (L) <1.0 02/18/2013 <0.2 (L) <1.0 08/12/2013 <0.2 (L) <1.0 * mRNA (11/03/09): TSH-R mRNA=1.7 ng/ug (11/30/09): TSH-R mRNA=1.8 ng/ug (01/18/10): no TSH-R mRNA assay postop (07/05/10): TSH-R mRNA <1.0 ng/ug (12/27/10): TSH-R mRNA <1.0 ng/ug * Ultrasound (01/18/10): no suspicious adenopathy along great vessels or in lateral neck on either side. No masses in thyroid bed. (12/27/10): no suspicious adenopathy along great vessels or in lateral neck on either side. No masses in thyroid bed. (01/24/12): no suspicious adenopathy along great vessels or in lateral neck on either side. No masses in thyroid bed. (08/11/13): no suspicious adenopathy along great vessels or in lateral neck on either side. No masses in thyroid bed. Thyroid nodule 10/20/2009 03/02/2010 Incisional hernia without mention of obstruction or gangrene 09/12/2005 08/12/2014 Symptomatic menopausal or female climacteric sta aniceto 04/07/2003 10/15/2017 Diabetes mellitus type 2 03/02/2003 014 Overview: *Type (): dx type 2 diabetes *Control hx Component Hemoglobin A1C Latest Ref Rng 4.0 - 6.0 % 01/17/2011 6.8 05/08/2011 7.2 07/24/2011 6.8 01/23/2012 6.7 07/27/2012 6.1 (H) 02/18/2013 6.4 (H) 08/08/2013 7.0 (H) 10/13/2013 7.1 (H) 02/17/14 7.3 * Eye hx (10/2008): no DM changes per Dr. Campoverde (07/2013): no DM changes per pt, exam Dr. Campoverde * Renal hx Component Albumin/Creat Ratio Latest Ref Rng 0 - 30 mg/g 04/03/2005 8 05/03/2006 8 03/26/2008 13 01/22/2009 18 02/16/2010 10 07/05/2010 9 05/08/2011 13 08/08/2013 9 * Vascular hx (11/12/13): no hx [place], stroke, Component Latest Ref Rng 02/18/2013 08/12/2013 10/13/2013 Triglyceride 30 - 149 mg/dL 114 123 126 Cholesterol 100 - 199 mg/dL 196 192 187 HDL Cholesterol >55 mg/dL 47 (L) 58 52 (L) VLDL Cholesterol 6 - 40 mg/dL 23 25 25 LDL Cholesterol 60 - 129 mg/dL 126 109 110 Fasting Time FASTING FASTING fasting TC:HDL Ratio 1.00 - 5.00 4.17 3.31 3.60 LDL:HDL Ratio 0.50 - 3.55 2.68 1.88 2.12 Non HDL Cholesterol 90 - 159 mg/dL 149 134 135 * Sleep (11/12/13): has obstructive sleep apnea, uses BiPAP since titration 04/07/13 * Exercise (11/12/13): not exercisnig * Medications (11/12/13): Victoza 1.8 mg daily, metformin 500 mg 2-1-1, * Physician (11/12/13): primary physician is Hayley Malone Morbid obesity 03/02/2003 07/15/2014 HYPERLIPIDEMIA NEC/NOS 5 documented as of this encounter (statuses as of 12/19/2021) [facility]11-02-2020 History of Past illness Narrative* Problem Noted Date Resolved Date Postoperative abdominal pain 07/12/202011/2020 Mild protein-calorie malnutrition 06/28/2020 06/29/2020 Infected prosthetic mesh of abdominal wall 06/2006/30/2020 Obesity, Class II, BMI 35-39.9 06/13/2019 1 10/17/2019 SBO (small bowel obstruction) 06/07/2019 Morbid obesity 03/10/2019 06/13/2019 Abnormal cardiovascular stress test 09/11/2017 10/15/2017 Primary osteoarthritis of right hip 11/27/2016 08/18/2020 Trochanteric bursitis of right hip 11/27/2016 08/18/2020 Dyspnea, unspecified 03/08/2016 08/16/2020 Angiomyolipoma of right kidney 01/11/2016 1 Essential hypertension with goal blood pressure less than 140/90 12/13/2015 04/12/2017 Obstructive sleep apnea syndrome 12/13/2015 04/12/2017 Superficial skin infection 08/31/201503/13 CKD stage 3 due to type 2 diabetes mellitus 01/1011/16/2018 Overview: Dr. Lilian Vance, nephrology BMI 45.0-49.9, adult 02/06/2015 12/01/2019 Venous insufficiency 02/06/2015 04/12/2017 DM type 2 causing CKD stage 3 09/21/2014 Overview: Dr Landen Best, endocrinology Degenerative arthritis of hip 07/01/2014 BMI 45.0-49.9, adult 03/31/2014 10/13/2014 Diabetes mellitus type II, uncontrolled 11/26/19 14 02/06/2015 BMI 40.0-44.9, adult 10/14/2013 03/31/2014 Chest pain 09/13/2012 03/13/2016 Overview: Substernal pressure lasting ~5hrs, partially relieved with SLN. Significant risk factors for CAD (HTN, HLD, DM). EKG does to show ST changes. Initial CE at [facility] are supposedly negative. Prior stress test in 2010 was normal. DM well controlled. Currently low likelihood for ACS. - EKG - trend Donald - stress test vs [facility] S/P total knee replacement using cement 07/02/20 12 07/15/2018 Degenerative arthritis of right knee 06/10/2012 08/12/2014 Allergic contact dermatitis due to metals 201108/16/2020 Sensorineural hearing loss, bilateral 07/19/2011 08/16/2020 Diverticulosis 08/23/2010 03/13/2016 Thyroid CA 02/21/2010 08/12/2014 Overview: * Surgery (12/15/09): total thyroidectomy, Dr. Jamey Ibrahim, [facility] * Path (10/29/09): FNA Atypical cells present in a background of cyst contents, suspicious for papillary thyroid carcinoma (12/15/09): single well-circumscribed nodule in the right inferior lobe, which measured 3.5 cm in greatest dimension. The nodule was extensively hemorrhagic and cystic with a rim of viable material which ranges in appearance from papillary architecture to follicular structures. There is no evidence of a higher grade component. There is no definitive lymphovascular space invasion identified. In some areas, the tumor cells have oncocytic cytoplasm, however, the cells do not meet criteria for tall-cell variant of papillary thyroid carcinoma. * SIDDIQI (02/17/10): Rx 131-Iodine 102.4 mCi, Thyrogen-stim * Scan (02/24/10): post-treatment scan (Thyrogen-stim) shows uptake in left neck, also in liver area. SPECT images show one focus of uptake in lateral segment of the left lobe of the liver, one in the medial segment of the left lobe of liver, and one in the posterior segment of the right lobe of the liver. (05/03/11): Thyrogen stim 123-Iodine scan negative * Thyroglobulin Component Thyroglobulin TG Antibody Screen Stimulation Latest Ref Rng 0.8 - 49.0 ng/mL <14.4 IU/mL 11/05/2009 75.7 (H) 1.0 01/18/2010 <0.2 (L) 1.1 02/16/2010 0.3 (L) 1.0 Thyrogen 07/05/2010 <0.2 (L) 1.3 12/27/2010 <0.2 (L) 1.3 05/08/2011 <0.2 (L) 1.1 Thyrogen 07/24/2011 <0.2 (L) 1.5 01/23/2012 <0.2 (L) 1.0 07/27/2012 <0.2 (L) <1.0 02/18/2013 <0.2 (L) <1.0 08/12/2013 <0.2 (L) <1.0 * mRNA (11/03/09): TSH-R mRNA=1.7 ng/ug (11/30/09): TSH-R mRNA=1.8 ng/ug (01/18/10): no TSH-R mRNA assay postop (07/05/10): TSH-R mRNA <1.0 ng/ug (12/27/10): TSH-R mRNA <1.0 ng/ug * Ultrasound (01/18/10): no suspicious adenopathy along great vessels or in lateral neck on either side. No masses in thyroid bed. (12/27/10): no suspicious adenopathy along great vessels or in lateral neck on either side. No masses in thyroid bed. (01/24/12): no suspicious adenopathy along great vessels or in lateral neck on either side. No masses in thyroid bed. (08/11/13): no suspicious adenopathy along great vessels or in lateral neck on either side. No masses in thyroid bed. Thyroid nodule 10/20/2009 03/02/2010 Incisional hernia without mention of obstruction or gangrene 09/12/2005 08/12/2014 Symptomatic menopausal or female climacteric sta aniceto 04/07/2003 10/15/2017 Diabetes mellitus type 2 03/02/2003 014 Overview: *Type (): dx type 2 diabetes *Control hx Component Hemoglobin A1C Latest Ref Rng 4.0 - 6.0 % 01/17/2011 6.8 05/08/2011 7.2 07/24/2011 6.8 01/23/2012 6.7 07/27/2012 6.1 (H) 02/18/2013 6.4 (H) 08/08/2013 7.0 (H) 10/13/2013 7.1 (H) 02/17/14 7.3 * Eye hx (10/2008): no DM changes per Dr. Campoverde (07/2013): no DM changes per pt, exam Dr. Campoverde * Renal hx Component Albumin/Creat Ratio Latest Ref Rng 0 - 30 mg/g 04/03/2005 8 05/03/2006 8 03/26/2008 13 01/22/2009 18 02/16/2010 10 07/05/2010 9 05/08/2011 13 08/08/2013 9 * Vascular hx (11/12/13): no hx [place], stroke, Component Latest Ref Rng 02/18/2013 08/12/2013 10/13/2013 Triglyceride 30 - 149 mg/dL 114 123 126 Cholesterol 100 - 199 mg/dL 196 192 187 HDL Cholesterol >55 mg/dL 47 (L) 58 52 (L) VLDL Cholesterol 6 - 40 mg/dL 23 25 25 LDL Cholesterol 60 - 129 mg/dL 126 109 110 Fasting Time FASTING FASTING fasting TC:HDL Ratio 1.00 - 5.00 4.17 3.31 3.60 LDL:HDL Ratio 0.50 - 3.55 2.68 1.88 2.12 Non HDL Cholesterol 90 - 159 mg/dL 149 134 135 * Sleep (11/12/13): has obstructive sleep apnea, uses BiPAP since titration 04/07/13 * Exercise (11/12/13): not exercisnig * Medications (11/12/13): Victoza 1.8 mg daily, metformin 500 mg 2-1-1, * Physician (11/12/13): primary physician is Hayley Malone Morbid obesity 03/02/2003 07/15/2014 HYPERLIPIDEMIA NEC/NOS 5 documented as of this encounter (statuses as of 12/22/2021) [facility]11-02-2020 History of Past illness Narrative* Problem Noted Date Resolved Date Postoperative abdominal pain 07/12/202011/2020 Mild protein-calorie malnutrition 06/28/2020 06/29/2020 Infected prosthetic mesh of abdominal wall 06/2006/30/2020 Obesity, Class II, BMI 35-39.9 06/13/2019 1 10/17/2019 SBO (small bowel obstruction) 06/07/2019 Morbid obesity 03/10/2019 06/13/2019 Abnormal cardiovascular stress test 09/11/2017 10/15/2017 Primary osteoarthritis of right hip 11/27/2016 08/18/2020 Trochanteric bursitis of right hip 11/27/2016 08/18/2020 Dyspnea, unspecified 03/08/2016 08/16/2020 Angiomyolipoma of right kidney 01/11/2016 1 Essential hypertension with goal blood pressure less than 140/90 12/13/2015 04/12/2017 Obstructive sleep apnea syndrome 12/13/2015 04/12/2017 Superficial skin infection 08/31/201503/13 CKD stage 3 due to type 2 diabetes mellitus 01/1011/16/2018 Overview: Dr. Lilian Vance, nephrology BMI 45.0-49.9, adult 02/06/2015 12/01/2019 Venous insufficiency 02/06/2015 04/12/2017 DM type 2 causing CKD stage 3 09/21/2014 Overview: Dr Landen Best, endocrinology Degenerative arthritis of hip 07/01/2014 BMI 45.0-49.9, adult 03/31/2014 10/13/2014 Diabetes mellitus type II, uncontrolled 11/26/19 14 02/06/2015 BMI 40.0-44.9, adult 10/14/2013 03/31/2014 Chest pain 09/13/2012 03/13/2016 Overview: Substernal pressure lasting ~5hrs, partially relieved with SLN. Significant risk factors for CAD (HTN, HLD, DM). EKG does to show ST changes. Initial CE at [facility] are supposedly negative. Prior stress test in 2010 was normal. DM well controlled. Currently low likelihood for ACS. - EKG - trend Donald - stress test vs [facility] S/P total knee replacement using cement 07/02/20 12 07/15/2018 Degenerative arthritis of right knee 06/10/2012 08/12/2014 Allergic contact dermatitis due to metals 201108/16/2020 Sensorineural hearing loss, bilateral 07/19/2011 08/16/2020 Diverticulosis 08/23/2010 03/13/2016 Thyroid CA 02/21/2010 08/12/2014 Overview: * Surgery (12/15/09): total thyroidectomy, Dr. Jamey Ibrahim, [facility] * Path (10/29/09): FNA Atypical cells present in a background of cyst contents, suspicious for papillary thyroid carcinoma (12/15/09): single well-circumscribed nodule in the right inferior lobe, which measured 3.5 cm in greatest dimension. The nodule was extensively hemorrhagic and cystic with a rim of viable material which ranges in appearance from papillary architecture to follicular structures. There is no evidence of a higher grade component. There is no definitive lymphovascular space invasion identified. In some areas, the tumor cells have oncocytic cytoplasm, however, the cells do not meet criteria for tall-cell variant of papillary thyroid carcinoma. * SIDDIQI (02/17/10): Rx 131-Iodine 102.4 mCi, Thyrogen-stim * Scan (02/24/10): post-treatment scan (Thyrogen-stim) shows uptake in left neck, also in liver area. SPECT images show one focus of uptake in lateral segment of the left lobe of the liver, one in the medial segment of the left lobe of liver, and one in the posterior segment of the right lobe of the liver. (05/03/11): Thyrogen stim 123-Iodine scan negative * Thyroglobulin Component Thyroglobulin TG Antibody Screen Stimulation Latest Ref Rng 0.8 - 49.0 ng/mL <14.4 IU/mL 11/05/2009 75.7 (H) 1.0 01/18/2010 <0.2 (L) 1.1 02/16/2010 0.3 (L) 1.0 Thyrogen 07/05/2010 <0.2 (L) 1.3 12/27/2010 <0.2 (L) 1.3 05/08/2011 <0.2 (L) 1.1 Thyrogen 07/24/2011 <0.2 (L) 1.5 01/23/2012 <0.2 (L) 1.0 07/27/2012 <0.2 (L) <1.0 02/18/2013 <0.2 (L) <1.0 08/12/2013 <0.2 (L) <1.0 * mRNA (11/03/09): TSH-R mRNA=1.7 ng/ug (11/30/09): TSH-R mRNA=1.8 ng/ug (01/18/10): no TSH-R mRNA assay postop (07/05/10): TSH-R mRNA <1.0 ng/ug (12/27/10): TSH-R mRNA <1.0 ng/ug * Ultrasound (01/18/10): no suspicious adenopathy along great vessels or in lateral neck on either side. No masses in thyroid bed. (12/27/10): no suspicious adenopathy along great vessels or in lateral neck on either side. No masses in thyroid bed. (01/24/12): no suspicious adenopathy along great vessels or in lateral neck on either side. No masses in thyroid bed. (08/11/13): no suspicious adenopathy along great vessels or in lateral neck on either side. No masses in thyroid bed. Thyroid nodule 10/20/2009 03/02/2010 Incisional hernia without mention of obstruction or gangrene 09/12/2005 08/12/2014 Symptomatic menopausal or female climacteric sta aniceto 04/07/2003 10/15/2017 Diabetes mellitus type 2 03/02/2003 014 Overview: *Type (): dx type 2 diabetes *Control hx Component Hemoglobin A1C Latest Ref Rng 4.0 - 6.0 % 01/17/2011 6.8 05/08/2011 7.2 07/24/2011 6.8 01/23/2012 6.7 07/27/2012 6.1 (H) 02/18/2013 6.4 (H) 08/08/2013 7.0 (H) 10/13/2013 7.1 (H) 02/17/14 7.3 * Eye hx (10/2008): no DM changes per Dr. Campoverde (07/2013): no DM changes per pt, exam Dr. Campoverde * Renal hx Component Albumin/Creat Ratio Latest Ref Rng 0 - 30 mg/g 04/03/2005 8 05/03/2006 8 03/26/2008 13 01/22/2009 18 02/16/2010 10 07/05/2010 9 05/08/2011 13 08/08/2013 9 * Vascular hx (11/12/13): no hx [place], stroke, Component Latest Ref Rng 02/18/2013 08/12/2013 10/13/2013 Triglyceride 30 - 149 mg/dL 114 123 126 Cholesterol 100 - 199 mg/dL 196 192 187 HDL Cholesterol >55 mg/dL 47 (L) 58 52 (L) VLDL Cholesterol 6 - 40 mg/dL 23 25 25 LDL Cholesterol 60 - 129 mg/dL 126 109 110 Fasting Time FASTING FASTING fasting TC:HDL Ratio 1.00 - 5.00 4.17 3.31 3.60 LDL:HDL Ratio 0.50 - 3.55 2.68 1.88 2.12 Non HDL Cholesterol 90 - 159 mg/dL 149 134 135 * Sleep (11/12/13): has obstructive sleep apnea, uses BiPAP since titration 04/07/13 * Exercise (11/12/13): not exercisnig * Medications (11/12/13): Victoza 1.8 mg daily, metformin 500 mg 2-1-1, * Physician (11/12/13): primary physician is Hayley Malone Morbid obesity 03/02/2003 07/15/2014 HYPERLIPIDEMIA NEC/NOS 5 documented as of this encounter (statuses as of 12/23/2021) [facility] History of Past illness Narrative* Problem Noted Date Resolved Date Postoperative abdominal pain 07/12/202011/2020 Mild protein-calorie malnutrition 06/28/2020 06/29/2020 Infected prosthetic mesh of abdominal wall 06/2006/30/2020 Obesity, Class II, BMI 35-39.9 06/13/2019 1 10/17/2019 SBO (small bowel obstruction) 06/07/2019 Morbid obesity 03/10/2019 06/13/2019 Abnormal cardiovascular stress test 09/11/2017 10/15/2017 Primary osteoarthritis of right hip 11/27/2016 08/18/2020 Trochanteric bursitis of right hip 11/27/2016 08/18/2020 Dyspnea, unspecified 03/08/2016 08/16/2020 Angiomyolipoma of right kidney 01/11/2016 1 Essential hypertension with goal blood pressure less than 140/90 12/13/2015 04/12/2017 Obstructive sleep apnea syndrome 12/13/2015 04/12/2017 Superficial skin infection 08/31/201503/13 CKD stage 3 due to type 2 diabetes mellitus 01/1011/16/2018 Overview: Dr. Lilian Vance, nephrology BMI 45.0-49.9, adult 02/06/2015 12/01/2019 Venous insufficiency 02/06/2015 04/12/2017 DM type 2 causing CKD stage 3 09/21/2014 Overview: Dr Landen Best, endocrinology Degenerative arthritis of hip 07/01/2014 BMI 45.0-49.9, adult 03/31/2014 10/13/2014 Diabetes mellitus type II, uncontrolled 11/26/19 14 02/06/2015 BMI 40.0-44.9, adult 10/14/2013 03/31/2014 Chest pain 09/13/2012 03/13/2016 Overview: Substernal pressure lasting ~5hrs, partially relieved with SLN. Significant risk factors for CAD (HTN, HLD, DM). EKG does to show ST changes. Initial CE at [facility] are supposedly negative. Prior stress test in 2010 was normal. DM well controlled. Currently low likelihood for ACS. - EKG - trend Donald - stress test vs [facility] S/P total knee replacement using cement 07/02/20 12 07/15/2018 Degenerative arthritis of right knee 06/10/2012 08/12/2014 Allergic contact dermatitis due to metals 201108/16/2020 Sensorineural hearing loss, bilateral 07/19/2011 08/16/2020 Diverticulosis 08/23/2010 03/13/2016 Thyroid CA 02/21/2010 08/12/2014 Overview: * Surgery (12/15/09): total thyroidectomy, Dr. Jamey Ibrahim, [facility] * Path (10/29/09): FNA Atypical cells present in a background of cyst contents, suspicious for papillary thyroid carcinoma (12/15/09): single well-circumscribed nodule in the right inferior lobe, which measured 3.5 cm in greatest dimension. The nodule was extensively hemorrhagic and cystic with a rim of viable material which ranges in appearance from papillary architecture to follicular structures. There is no evidence of a higher grade component. There is no definitive lymphovascular space invasion identified. In some areas, the tumor cells have oncocytic cytoplasm, however, the cells do not meet criteria for tall-cell variant of papillary thyroid carcinoma. * SIDDIQI (02/17/10): Rx 131-Iodine 102.4 mCi, Thyrogen-stim * Scan (02/24/10): post-treatment scan (Thyrogen-stim) shows uptake in left neck, also in liver area. SPECT images show one focus of uptake in lateral segment of the left lobe of the liver, one in the medial segment of the left lobe of liver, and one in the posterior segment of the right lobe of the liver. (05/03/11): Thyrogen stim 123-Iodine scan negative * Thyroglobulin Component Thyroglobulin TG Antibody Screen Stimulation Latest Ref Rng 0.8 - 49.0 ng/mL <14.4 IU/mL 11/05/2009 75.7 (H) 1.0 01/18/2010 <0.2 (L) 1.1 02/16/2010 0.3 (L) 1.0 Thyrogen 07/05/2010 <0.2 (L) 1.3 12/27/2010 <0.2 (L) 1.3 05/08/2011 <0.2 (L) 1.1 Thyrogen 07/24/2011 <0.2 (L) 1.5 01/23/2012 <0.2 (L) 1.0 07/27/2012 <0.2 (L) <1.0 02/18/2013 <0.2 (L) <1.0 08/12/2013 <0.2 (L) <1.0 * mRNA (11/03/09): TSH-R mRNA=1.7 ng/ug (11/30/09): TSH-R mRNA=1.8 ng/ug (01/18/10): no TSH-R mRNA assay postop (07/05/10): TSH-R mRNA <1.0 ng/ug (12/27/10): TSH-R mRNA <1.0 ng/ug * Ultrasound (01/18/10): no suspicious adenopathy along great vessels or in lateral neck on either side. No masses in thyroid bed. (12/27/10): no suspicious adenopathy along great vessels or in lateral neck on either side. No masses in thyroid bed. (01/24/12): no suspicious adenopathy along great vessels or in lateral neck on either side. No masses in thyroid bed. (08/11/13): no suspicious adenopathy along great vessels or in lateral neck on either side. No masses in thyroid bed. Thyroid nodule 10/20/2009 03/02/2010 Incisional hernia without mention of obstruction or gangrene 09/12/2005 08/12/2014 Symptomatic menopausal or female climacteric sta aniceto 04/07/2003 10/15/2017 Diabetes mellitus type 2 03/02/2003 014 Overview: *Type (): dx type 2 diabetes *Control hx Component Hemoglobin A1C Latest Ref Rng 4.0 - 6.0 % 01/17/2011 6.8 05/08/2011 7.2 07/24/2011 6.8 01/23/2012 6.7 07/27/2012 6.1 (H) 02/18/2013 6.4 (H) 08/08/2013 7.0 (H) 10/13/2013 7.1 (H) 02/17/14 7.3 * Eye hx (10/2008): no DM changes per Dr. Campoverde (07/2013): no DM changes per pt, exam Dr. Campoverde * Renal hx Component Albumin/Creat Ratio Latest Ref Rng 0 - 30 mg/g 04/03/2005 8 05/03/2006 8 03/26/2008 13 01/22/2009 18 02/16/2010 10 07/05/2010 9 05/08/2011 13 08/08/2013 9 * Vascular hx (11/12/13): no hx [place], stroke, Component Latest Ref Rng 02/18/2013 08/12/2013 10/13/2013 Triglyceride 30 - 149 mg/dL 114 123 126 Cholesterol 100 - 199 mg/dL 196 192 187 HDL Cholesterol >55 mg/dL 47 (L) 58 52 (L) VLDL Cholesterol 6 - 40 mg/dL 23 25 25 LDL Cholesterol 60 - 129 mg/dL 126 109 110 Fasting Time FASTING FASTING fasting TC:HDL Ratio 1.00 - 5.00 4.17 3.31 3.60 LDL:HDL Ratio 0.50 - 3.55 2.68 1.88 2.12 Non HDL Cholesterol 90 - 159 mg/dL 149 134 135 * Sleep (11/12/13): has obstructive sleep apnea, uses BiPAP since titration 04/07/13 * Exercise (11/12/13): not exercisnig * Medications (11/12/13): Victoza 1.8 mg daily, metformin 500 mg 2-1-1, * Physician (11/12/13): primary physician is Hayley Malone Morbid obesity 03/02/2003 07/15/2014 HYPERLIPIDEMIA NEC/NOS 5 documented as of this encounter (statuses as of 12/27/2021) [facility] History of Past illness Narrative* Problem Noted Date Resolved Date Postoperative abdominal pain 07/12/202011/2020 Mild protein-calorie malnutrition 06/28/2020 06/29/2020 Infected prosthetic mesh of abdominal wall 06/2006/30/2020 Obesity, Class II, BMI 35-39.9 06/13/2019 1 10/17/2019 SBO (small bowel obstruction) 06/07/2019 Morbid obesity 03/10/2019 06/13/2019 Abnormal cardiovascular stress test 09/11/2017 10/15/2017 Primary osteoarthritis of right hip 11/27/2016 08/18/2020 Trochanteric bursitis of right hip 11/27/2016 08/18/2020 Dyspnea, unspecified 03/08/2016 08/16/2020 Angiomyolipoma of right kidney 01/11/2016 1 Essential hypertension with goal blood pressure less than 140/90 12/13/2015 04/12/2017 Obstructive sleep apnea syndrome 12/13/2015 04/12/2017 Superficial skin infection 08/31/201503/13 CKD stage 3 due to type 2 diabetes mellitus 01/1011/16/2018 Overview: Dr. Lilian Vance, nephrology BMI 45.0-49.9, adult 02/06/2015 12/01/2019 Venous insufficiency 02/06/2015 04/12/2017 DM type 2 causing CKD stage 3 09/21/2014 Overview: Dr Landen Best, endocrinology Degenerative arthritis of hip 07/01/2014 BMI 45.0-49.9, adult 03/31/2014 10/13/2014 Diabetes mellitus type II, uncontrolled 11/26/19 14 02/06/2015 BMI 40.0-44.9, adult 10/14/2013 03/31/2014 Chest pain 09/13/2012 03/13/2016 Overview: Substernal pressure lasting ~5hrs, partially relieved with SLN. Significant risk factors for CAD (HTN, HLD, DM). EKG does to show ST changes. Initial CE at [facility] are supposedly negative. Prior stress test in 2010 was normal. DM well controlled. Currently low likelihood for ACS. - EKG - trend Donald - stress test vs [facility] S/P total knee replacement using cement 07/02/20 12 07/15/2018 Degenerative arthritis of right knee 06/10/2012 08/12/2014 Allergic contact dermatitis due to metals 201108/16/2020 Sensorineural hearing loss, bilateral 07/19/2011 08/16/2020 Diverticulosis 08/23/2010 03/13/2016 Thyroid CA 02/21/2010 08/12/2014 Overview: * Surgery (12/15/09): total thyroidectomy, Dr. Jamey Ibrahim, [facility] * Path (10/29/09): FNA Atypical cells present in a background of cyst contents, suspicious for papillary thyroid carcinoma (12/15/09): single well-circumscribed nodule in the right inferior lobe, which measured 3.5 cm in greatest dimension. The nodule was extensively hemorrhagic and cystic with a rim of viable material which ranges in appearance from papillary architecture to follicular structures. There is no evidence of a higher grade component. There is no definitive lymphovascular space invasion identified. In some areas, the tumor cells have oncocytic cytoplasm, however, the cells do not meet criteria for tall-cell variant of papillary thyroid carcinoma. * SIDDIQI (02/17/10): Rx 131-Iodine 102.4 mCi, Thyrogen-stim * Scan (02/24/10): post-treatment scan (Thyrogen-stim) shows uptake in left neck, also in liver area. SPECT images show one focus of uptake in lateral segment of the left lobe of the liver, one in the medial segment of the left lobe of liver, and one in the posterior segment of the right lobe of the liver. (05/03/11): Thyrogen stim 123-Iodine scan negative * Thyroglobulin Component Thyroglobulin TG Antibody Screen Stimulation Latest Ref Rng 0.8 - 49.0 ng/mL <14.4 IU/mL 11/05/2009 75.7 (H) 1.0 01/18/2010 <0.2 (L) 1.1 02/16/2010 0.3 (L) 1.0 Thyrogen 07/05/2010 <0.2 (L) 1.3 12/27/2010 <0.2 (L) 1.3 05/08/2011 <0.2 (L) 1.1 Thyrogen 07/24/2011 <0.2 (L) 1.5 01/23/2012 <0.2 (L) 1.0 07/27/2012 <0.2 (L) <1.0 02/18/2013 <0.2 (L) <1.0 08/12/2013 <0.2 (L) <1.0 * mRNA (11/03/09): TSH-R mRNA=1.7 ng/ug (11/30/09): TSH-R mRNA=1.8 ng/ug (01/18/10): no TSH-R mRNA assay postop (07/05/10): TSH-R mRNA <1.0 ng/ug (12/27/10): TSH-R mRNA <1.0 ng/ug * Ultrasound (01/18/10): no suspicious adenopathy along great vessels or in lateral neck on either side. No masses in thyroid bed. (12/27/10): no suspicious adenopathy along great vessels or in lateral neck on either side. No masses in thyroid bed. (01/24/12): no suspicious adenopathy along great vessels or in lateral neck on either side. No masses in thyroid bed. (08/11/13): no suspicious adenopathy along great vessels or in lateral neck on either side. No masses in thyroid bed. Thyroid nodule 10/20/2009 03/02/2010 Incisional hernia without mention of obstruction or gangrene 09/12/2005 08/12/2014 Symptomatic menopausal or female climacteric sta aniceto 04/07/2003 10/15/2017 Diabetes mellitus type 2 03/02/2003 014 Overview: *Type (): dx type 2 diabetes *Control hx Component Hemoglobin A1C Latest Ref Rng 4.0 - 6.0 % 01/17/2011 6.8 05/08/2011 7.2 07/24/2011 6.8 01/23/2012 6.7 07/27/2012 6.1 (H) 02/18/2013 6.4 (H) 08/08/2013 7.0 (H) 10/13/2013 7.1 (H) 02/17/14 7.3 * Eye hx (10/2008): no DM changes per Dr. Campoverde (07/2013): no DM changes per pt, exam Dr. Campoverde * Renal hx Component Albumin/Creat Ratio Latest Ref Rng 0 - 30 mg/g 04/03/2005 8 05/03/2006 8 03/26/2008 13 01/22/2009 18 02/16/2010 10 07/05/2010 9 05/08/2011 13 08/08/2013 9 * Vascular hx (11/12/13): no hx [place], stroke, Component Latest Ref Rng 02/18/2013 08/12/2013 10/13/2013 Triglyceride 30 - 149 mg/dL 114 123 126 Cholesterol 100 - 199 mg/dL 196 192 187 HDL Cholesterol >55 mg/dL 47 (L) 58 52 (L) VLDL Cholesterol 6 - 40 mg/dL 23 25 25 LDL Cholesterol 60 - 129 mg/dL 126 109 110 Fasting Time FASTING FASTING fasting TC:HDL Ratio 1.00 - 5.00 4.17 3.31 3.60 LDL:HDL Ratio 0.50 - 3.55 2.68 1.88 2.12 Non HDL Cholesterol 90 - 159 mg/dL 149 134 135 * Sleep (11/12/13): has obstructive sleep apnea, uses BiPAP since titration 04/07/13 * Exercise (11/12/13): not exercisnig * Medications (11/12/13): Victoza 1.8 mg daily, metformin 500 mg 2-1-1, * Physician (11/12/13): primary physician is Hayley Malone Morbid obesity 03/02/2003 07/15/2014 HYPERLIPIDEMIA NEC/NOS 5 documented as of this encounter (statuses as of 12/30/2021) [facility]2020 History of Past illness Narrative* Problem Noted Date Resolved Date Postoperative abdominal pain 07/12/202011/2020 Mild protein-calorie malnutrition 06/28/2020 06/29/2020 Infected prosthetic mesh of abdominal wall 06/2006/30/2020 Obesity, Class II, BMI 35-39.9 06/13/2019 1 10/17/2019 SBO (small bowel obstruction) 06/07/2019 Morbid obesity 03/10/2019 06/13/2019 Abnormal cardiovascular stress test 09/11/2017 10/15/2017 Primary osteoarthritis of right hip 11/27/2016 08/18/2020 Trochanteric bursitis of right hip 11/27/2016 08/18/2020 Dyspnea, unspecified 03/08/2016 08/16/2020 Angiomyolipoma of right kidney 01/11/2016 1 Essential hypertension with goal blood pressure less than 140/90 12/13/2015 04/12/2017 Obstructive sleep apnea syndrome 12/13/2015 04/12/2017 Superficial skin infection 08/31/201503/13 CKD stage 3 due to type 2 diabetes mellitus 01/1011/16/2018 Overview: Dr. Lilian Vance, nephrology BMI 45.0-49.9, adult 02/06/2015 12/01/2019 Venous insufficiency 02/06/2015 04/12/2017 DM type 2 causing CKD stage 3 09/21/2014 Overview: Dr Landen Best, endocrinology Degenerative arthritis of hip 07/01/2014 BMI 45.0-49.9, adult 03/31/2014 10/13/2014 Diabetes mellitus type II, uncontrolled 11/26/19 14 02/06/2015 BMI 40.0-44.9, adult 10/14/2013 03/31/2014 Chest pain 09/13/2012 03/13/2016 Overview: Substernal pressure lasting ~5hrs, partially relieved with SLN. Significant risk factors for CAD (HTN, HLD, DM). EKG does to show ST changes. Initial CE at [facility] are supposedly negative. Prior stress test in 2010 was normal. DM well controlled. Currently low likelihood for ACS. - EKG - trend Donald - stress test vs [facility] S/P total knee replacement using cement 07/02/20 12 07/15/2018 Degenerative arthritis of right knee 06/10/2012 08/12/2014 Allergic contact dermatitis due to metals 201108/16/2020 Sensorineural hearing loss, bilateral 07/19/2011 08/16/2020 Diverticulosis 08/23/2010 03/13/2016 Thyroid CA 02/21/2010 08/12/2014 Overview: * Surgery (12/15/09): total thyroidectomy, Dr. Jamey Ibrahim, [facility] * Path (10/29/09): FNA Atypical cells present in a background of cyst contents, suspicious for papillary thyroid carcinoma (12/15/09): single well-circumscribed nodule in the right inferior lobe, which measured 3.5 cm in greatest dimension. The nodule was extensively hemorrhagic and cystic with a rim of viable material which ranges in appearance from papillary architecture to follicular structures. There is no evidence of a higher grade component. There is no definitive lymphovascular space invasion identified. In some areas, the tumor cells have oncocytic cytoplasm, however, the cells do not meet criteria for tall-cell variant of papillary thyroid carcinoma. * SIDDIQI (02/17/10): Rx 131-Iodine 102.4 mCi, Thyrogen-stim * Scan (02/24/10): post-treatment scan (Thyrogen-stim) shows uptake in left neck, also in liver area. SPECT images show one focus of uptake in lateral segment of the left lobe of the liver, one in the medial segment of the left lobe of liver, and one in the posterior segment of the right lobe of the liver. (05/03/11): Thyrogen stim 123-Iodine scan negative * Thyroglobulin Component Thyroglobulin TG Antibody Screen Stimulation Latest Ref Rng 0.8 - 49.0 ng/mL <14.4 IU/mL 11/05/2009 75.7 (H) 1.0 01/18/2010 <0.2 (L) 1.1 02/16/2010 0.3 (L) 1.0 Thyrogen 07/05/2010 <0.2 (L) 1.3 12/27/2010 <0.2 (L) 1.3 05/08/2011 <0.2 (L) 1.1 Thyrogen 07/24/2011 <0.2 (L) 1.5 01/23/2012 <0.2 (L) 1.0 07/27/2012 <0.2 (L) <1.0 02/18/2013 <0.2 (L) <1.0 08/12/2013 <0.2 (L) <1.0 * mRNA (11/03/09): TSH-R mRNA=1.7 ng/ug (11/30/09): TSH-R mRNA=1.8 ng/ug (01/18/10): no TSH-R mRNA assay postop (07/05/10): TSH-R mRNA <1.0 ng/ug (12/27/10): TSH-R mRNA <1.0 ng/ug * Ultrasound (01/18/10): no suspicious adenopathy along great vessels or in lateral neck on either side. No masses in thyroid bed. (12/27/10): no suspicious adenopathy along great vessels or in lateral neck on either side. No masses in thyroid bed. (01/24/12): no suspicious adenopathy along great vessels or in lateral neck on either side. No masses in thyroid bed. (08/11/13): no suspicious adenopathy along great vessels or in lateral neck on either side. No masses in thyroid bed. Thyroid nodule 10/20/2009 03/02/2010 Incisional hernia without mention of obstruction or gangrene 09/12/2005 08/12/2014 Symptomatic menopausal or female climacteric sta aniceto 04/07/2003 10/15/2017 Diabetes mellitus type 2 03/02/2003 014 Overview: *Type (): dx type 2 diabetes *Control hx Component Hemoglobin A1C Latest Ref Rng 4.0 - 6.0 % 01/17/2011 6.8 05/08/2011 7.2 07/24/2011 6.8 01/23/2012 6.7 07/27/2012 6.1 (H) 02/18/2013 6.4 (H) 08/08/2013 7.0 (H) 10/13/2013 7.1 (H) 02/17/14 7.3 * Eye hx (10/2008): no DM changes per Dr. Campoverde (07/2013): no DM changes per pt, exam Dr. Campoverde * Renal hx Component Albumin/Creat Ratio Latest Ref Rng 0 - 30 mg/g 04/03/2005 8 05/03/2006 8 03/26/2008 13 01/22/2009 18 02/16/2010 10 07/05/2010 9 05/08/2011 13 08/08/2013 9 * Vascular hx (11/12/13): no hx [place], stroke, Component Latest Ref Rng 02/18/2013 08/12/2013 10/13/2013 Triglyceride 30 - 149 mg/dL 114 123 126 Cholesterol 100 - 199 mg/dL 196 192 187 HDL Cholesterol >55 mg/dL 47 (L) 58 52 (L) VLDL Cholesterol 6 - 40 mg/dL 23 25 25 LDL Cholesterol 60 - 129 mg/dL 126 109 110 Fasting Time FASTING FASTING fasting TC:HDL Ratio 1.00 - 5.00 4.17 3.31 3.60 LDL:HDL Ratio 0.50 - 3.55 2.68 1.88 2.12 Non HDL Cholesterol 90 - 159 mg/dL 149 134 135 * Sleep (11/12/13): has obstructive sleep apnea, uses BiPAP since titration 04/07/13 * Exercise (11/12/13): not exercisnig * Medications (11/12/13): Victoza 1.8 mg daily, metformin 500 mg 2-1-1, * Physician (11/12/13): primary physician is Hayley Malone Morbid obesity 03/02/2003 07/15/2014 HYPERLIPIDEMIA NEC/NOS 5 documented as of this encounter (statuses as of 01/11/2022) [facility]11-[facility]2020 History of Past illness Narrative* Problem Noted Date Resolved Date Postoperative abdominal pain 07/12/202011/2020 Mild protein-calorie malnutrition 06/28/2020 06/29/2020 Infected prosthetic mesh of abdominal wall 06/2006/30/2020 Obesity, Class II, BMI 35-39.9 06/13/2019 1 10/17/2019 SBO (small bowel obstruction) 06/07/2019 Morbid obesity 03/10/2019 06/13/2019 Abnormal cardiovascular stress test 09/11/2017 10/15/2017 Primary osteoarthritis of right hip 11/27/2016 08/18/2020 Trochanteric bursitis of right hip 11/27/2016 08/18/2020 Dyspnea, unspecified 03/08/2016 08/16/2020 Angiomyolipoma of right kidney 01/11/2016 1 Essential hypertension with goal blood pressure less than 140/90 12/13/2015 04/12/2017 Obstructive sleep apnea syndrome 12/13/2015 04/12/2017 Superficial skin infection 08/31/201503/13 CKD stage 3 due to type 2 diabetes mellitus 01/1011/16/2018 Overview: Dr. Lilian Vance, nephrology BMI 45.0-49.9, adult 02/06/2015 12/01/2019 Venous insufficiency 02/06/2015 04/12/2017 DM type 2 causing CKD stage 3 09/21/2014 Overview: Dr Landen Best, endocrinology Degenerative arthritis of hip 07/01/2014 BMI 45.0-49.9, adult 03/31/2014 10/13/2014 Diabetes mellitus type II, uncontrolled 11/26/19 14 02/06/2015 BMI 40.0-44.9, adult 10/14/2013 03/31/2014 Chest pain 09/13/2012 03/13/2016 Overview: Substernal pressure lasting ~5hrs, partially relieved with SLN. Significant risk factors for CAD (HTN, HLD, DM). EKG does to show ST changes. Initial CE at [facility] are supposedly negative. Prior stress test in 2010 was normal. DM well controlled. Currently low likelihood for ACS. - EKG - trend Donald - stress test vs [facility] S/P total knee replacement using cement 07/02/20 12 07/15/2018 Degenerative arthritis of right knee 06/10/2012 08/12/2014 Allergic contact dermatitis due to metals 201108/16/2020 Sensorineural hearing loss, bilateral 07/19/2011 08/16/2020 Diverticulosis 08/23/2010 03/13/2016 Thyroid CA 02/21/2010 08/12/2014 Overview: * Surgery (12/15/09): total thyroidectomy, Dr. Jamey Ibrahim, [facility] * Path (10/29/09): FNA Atypical cells present in a background of cyst contents, suspicious for papillary thyroid carcinoma (12/15/09): single well-circumscribed nodule in the right inferior lobe, which measured 3.5 cm in greatest dimension. The nodule was extensively hemorrhagic and cystic with a rim of viable material which ranges in appearance from papillary architecture to follicular structures. There is no evidence of a higher grade component. There is no definitive lymphovascular space invasion identified. In some areas, the tumor cells have oncocytic cytoplasm, however, the cells do not meet criteria for tall-cell variant of papillary thyroid carcinoma. * SIDDIQI (02/17/10): Rx 131-Iodine 102.4 mCi, Thyrogen-stim * Scan (02/24/10): post-treatment scan (Thyrogen-stim) shows uptake in left neck, also in liver area. SPECT images show one focus of uptake in lateral segment of the left lobe of the liver, one in the medial segment of the left lobe of liver, and one in the posterior segment of the right lobe of the liver. (05/03/11): Thyrogen stim 123-Iodine scan negative * Thyroglobulin Component Thyroglobulin TG Antibody Screen Stimulation Latest Ref Rng 0.8 - 49.0 ng/mL <14.4 IU/mL 11/05/2009 75.7 (H) 1.0 01/18/2010 <0.2 (L) 1.1 02/16/2010 0.3 (L) 1.0 Thyrogen 07/05/2010 <0.2 (L) 1.3 12/27/2010 <0.2 (L) 1.3 05/08/2011 <0.2 (L) 1.1 Thyrogen 07/24/2011 <0.2 (L) 1.5 01/23/2012 <0.2 (L) 1.0 07/27/2012 <0.2 (L) <1.0 02/18/2013 <0.2 (L) <1.0 08/12/2013 <0.2 (L) <1.0 * mRNA (11/03/09): TSH-R mRNA=1.7 ng/ug (11/30/09): TSH-R mRNA=1.8 ng/ug (01/18/10): no TSH-R mRNA assay postop (07/05/10): TSH-R mRNA <1.0 ng/ug (12/27/10): TSH-R mRNA <1.0 ng/ug * Ultrasound (01/18/10): no suspicious adenopathy along great vessels or in lateral neck on either side. No masses in thyroid bed. (12/27/10): no suspicious adenopathy along great vessels or in lateral neck on either side. No masses in thyroid bed. (01/24/12): no suspicious adenopathy along great vessels or in lateral neck on either side. No masses in thyroid bed. (08/11/13): no suspicious adenopathy along great vessels or in lateral neck on either side. No masses in thyroid bed. Thyroid nodule 10/20/2009 03/02/2010 Incisional hernia without mention of obstruction or gangrene 09/12/2005 08/12/2014 Symptomatic menopausal or female climacteric sta aniceto 04/07/2003 10/15/2017 Diabetes mellitus type 2 03/02/2003 014 Overview: *Type (): dx type 2 diabetes *Control hx Component Hemoglobin A1C Latest Ref Rng 4.0 - 6.0 % 01/17/2011 6.8 05/08/2011 7.2 07/24/2011 6.8 01/23/2012 6.7 07/27/2012 6.1 (H) 02/18/2013 6.4 (H) 08/08/2013 7.0 (H) 10/13/2013 7.1 (H) 02/17/14 7.3 * Eye hx (10/2008): no DM changes per Dr. Campoverde (07/2013): no DM changes per pt, exam Dr. Campoverde * Renal hx Component Albumin/Creat Ratio Latest Ref Rng 0 - 30 mg/g 04/03/2005 8 05/03/2006 8 03/26/2008 13 01/22/2009 18 02/16/2010 10 07/05/2010 9 05/08/2011 13 08/08/2013 9 * Vascular hx (11/12/13): no hx [place], stroke, Component Latest Ref Rng 02/18/2013 08/12/2013 10/13/2013 Triglyceride 30 - 149 mg/dL 114 123 126 Cholesterol 100 - 199 mg/dL 196 192 187 HDL Cholesterol >55 mg/dL 47 (L) 58 52 (L) VLDL Cholesterol 6 - 40 mg/dL 23 25 25 LDL Cholesterol 60 - 129 mg/dL 126 109 110 Fasting Time FASTING FASTING fasting TC:HDL Ratio 1.00 - 5.00 4.17 3.31 3.60 LDL:HDL Ratio 0.50 - 3.55 2.68 1.88 2.12 Non HDL Cholesterol 90 - 159 mg/dL 149 134 135 * Sleep (11/12/13): has obstructive sleep apnea, uses BiPAP since titration 04/07/13 * Exercise (11/12/13): not exercisnig * Medications (11/12/13): Victoza 1.8 mg daily, metformin 500 mg 2-1-1, * Physician (11/12/13): primary physician is Hayley Malone Morbid obesity 03/02/2003 07/15/2014 HYPERLIPIDEMIA NEC/NOS 5 documented as of this encounter (statuses as of 01/25/2022) [facility] History of Past illness Narrative* Problem Noted Date Resolved Date Postoperative abdominal pain 07/12/202011/2020 Mild protein-calorie malnutrition 06/28/2020 06/29/2020 Infected prosthetic mesh of abdominal wall 06/2006/30/2020 Obesity, Class II, BMI 35-39.9 06/13/2019 1 10/17/2019 SBO (small bowel obstruction) 06/07/2019 Morbid obesity 03/10/2019 06/13/2019 Abnormal cardiovascular stress test 09/11/2017 10/15/2017 Primary osteoarthritis of right hip 11/27/2016 08/18/2020 Trochanteric bursitis of right hip 11/27/2016 08/18/2020 Dyspnea, unspecified 03/08/2016 08/16/2020 Angiomyolipoma of right kidney 01/11/2016 1 Essential hypertension with goal blood pressure less than 140/90 12/13/2015 04/12/2017 Obstructive sleep apnea syndrome 12/13/2015 04/12/2017 Superficial skin infection 08/31/201503/13 CKD stage 3 due to type 2 diabetes mellitus 01/1011/16/2018 Overview: Dr. Lilian Vance, nephrology BMI 45.0-49.9, adult 02/06/2015 12/01/2019 Venous insufficiency 02/06/2015 04/12/2017 DM type 2 causing CKD stage 3 09/21/2014 Overview: Dr Landen Best, endocrinology Degenerative arthritis of hip 07/01/2014 BMI 45.0-49.9, adult 03/31/2014 10/13/2014 Diabetes mellitus type II, uncontrolled 11/26/19 14 02/06/2015 BMI 40.0-44.9, adult 10/14/2013 03/31/2014 Chest pain 09/13/2012 03/13/2016 Overview: Substernal pressure lasting ~5hrs, partially relieved with SLN. Significant risk factors for CAD (HTN, HLD, DM). EKG does to show ST changes. Initial CE at [facility] are supposedly negative. Prior stress test in 2010 was normal. DM well controlled. Currently low likelihood for ACS. - EKG - trend Donald - stress test vs [facility] S/P total knee replacement using cement 07/02/20 12 07/15/2018 Degenerative arthritis of right knee 06/10/2012 08/12/2014 Allergic contact dermatitis due to metals 201108/16/2020 Sensorineural hearing loss, bilateral 07/19/2011 08/16/2020 Diverticulosis 08/23/2010 03/13/2016 Thyroid CA 02/21/2010 08/12/2014 Overview: * Surgery (12/15/09): total thyroidectomy, Dr. Jamey Ibrahim, [facility] * Path (10/29/09): FNA Atypical cells present in a background of cyst contents, suspicious for papillary thyroid carcinoma (12/15/09): single well-circumscribed nodule in the right inferior lobe, which measured 3.5 cm in greatest dimension. The nodule was extensively hemorrhagic and cystic with a rim of viable material which ranges in appearance from papillary architecture to follicular structures. There is no evidence of a higher grade component. There is no definitive lymphovascular space invasion identified. In some areas, the tumor cells have oncocytic cytoplasm, however, the cells do not meet criteria for tall-cell variant of papillary thyroid carcinoma. * SIDDIQI (02/17/10): Rx 131-Iodine 102.4 mCi, Thyrogen-stim * Scan (02/24/10): post-treatment scan (Thyrogen-stim) shows uptake in left neck, also in liver area. SPECT images show one focus of uptake in lateral segment of the left lobe of the liver, one in the medial segment of the left lobe of liver, and one in the posterior segment of the right lobe of the liver. (05/03/11): Thyrogen stim 123-Iodine scan negative * Thyroglobulin Component Thyroglobulin TG Antibody Screen Stimulation Latest Ref Rng 0.8 - 49.0 ng/mL <14.4 IU/mL 11/05/2009 75.7 (H) 1.0 01/18/2010 <0.2 (L) 1.1 02/16/2010 0.3 (L) 1.0 Thyrogen 07/05/2010 <0.2 (L) 1.3 12/27/2010 <0.2 (L) 1.3 05/08/2011 <0.2 (L) 1.1 Thyrogen 07/24/2011 <0.2 (L) 1.5 01/23/2012 <0.2 (L) 1.0 07/27/2012 <0.2 (L) <1.0 02/18/2013 <0.2 (L) <1.0 08/12/2013 <0.2 (L) <1.0 * mRNA (11/03/09): TSH-R mRNA=1.7 ng/ug (11/30/09): TSH-R mRNA=1.8 ng/ug (01/18/10): no TSH-R mRNA assay postop (07/05/10): TSH-R mRNA <1.0 ng/ug (12/27/10): TSH-R mRNA <1.0 ng/ug * Ultrasound (01/18/10): no suspicious adenopathy along great vessels or in lateral neck on either side. No masses in thyroid bed. (12/27/10): no suspicious adenopathy along great vessels or in lateral neck on either side. No masses in thyroid bed. (01/24/12): no suspicious adenopathy along great vessels or in lateral neck on either side. No masses in thyroid bed. (08/11/13): no suspicious adenopathy along great vessels or in lateral neck on either side. No masses in thyroid bed. Thyroid nodule 10/20/2009 03/02/2010 Incisional hernia without mention of obstruction or gangrene 09/12/2005 08/12/2014 Symptomatic menopausal or female climacteric sta aniceto 04/07/2003 10/15/2017 Diabetes mellitus type 2 03/02/2003 014 Overview: *Type (): dx type 2 diabetes *Control hx Component Hemoglobin A1C Latest Ref Rng 4.0 - 6.0 % 01/17/2011 6.8 05/08/2011 7.2 07/24/2011 6.8 01/23/2012 6.7 07/27/2012 6.1 (H) 02/18/2013 6.4 (H) 08/08/2013 7.0 (H) 10/13/2013 7.1 (H) 02/17/14 7.3 * Eye hx (10/2008): no DM changes per Dr. Campoverde (07/2013): no DM changes per pt, exam Dr. Campoverde * Renal hx Component Albumin/Creat Ratio Latest Ref Rng 0 - 30 mg/g 04/03/2005 8 05/03/2006 8 03/26/2008 13 01/22/2009 18 02/16/2010 10 07/05/2010 9 05/08/2011 13 08/08/2013 9 * Vascular hx (11/12/13): no hx [place], stroke, Component Latest Ref Rng 02/18/2013 08/12/2013 10/13/2013 Triglyceride 30 - 149 mg/dL 114 123 126 Cholesterol 100 - 199 mg/dL 196 192 187 HDL Cholesterol >55 mg/dL 47 (L) 58 52 (L) VLDL Cholesterol 6 - 40 mg/dL 23 25 25 LDL Cholesterol 60 - 129 mg/dL 126 109 110 Fasting Time FASTING FASTING fasting TC:HDL Ratio 1.00 - 5.00 4.17 3.31 3.60 LDL:HDL Ratio 0.50 - 3.55 2.68 1.88 2.12 Non HDL Cholesterol 90 - 159 mg/dL 149 134 135 * Sleep (11/12/13): has obstructive sleep apnea, uses BiPAP since titration 04/07/13 * Exercise (11/12/13): not exercisnig * Medications (11/12/13): Victoza 1.8 mg daily, metformin 500 mg 2-1-1, * Physician (11/12/13): primary physician is Hayley Malone Morbid obesity 03/02/2003 07/15/2014 HYPERLIPIDEMIA NEC/NOS 5 documented as of this encounter (statuses as of 01/26/2022) [facility] History of Past illness Narrative* Problem Noted Date Resolved Date Postoperative abdominal pain 07/12/202011/2020 Mild protein-calorie malnutrition 06/28/2020 06/29/2020 Infected prosthetic mesh of abdominal wall 06/2006/30/2020 Obesity, Class II, BMI 35-39.9 06/13/2019 1 10/17/2019 SBO (small bowel obstruction) 06/07/2019 Morbid obesity 03/10/2019 06/13/2019 Abnormal cardiovascular stress test 09/11/2017 10/15/2017 Primary osteoarthritis of right hip 11/27/2016 08/18/2020 Trochanteric bursitis of right hip 11/27/2016 08/18/2020 Dyspnea, unspecified 03/08/2016 08/16/2020 Angiomyolipoma of right kidney 01/11/2016 1 Essential hypertension with goal blood pressure less than 140/90 12/13/2015 04/12/2017 Obstructive sleep apnea syndrome 12/13/2015 04/12/2017 Superficial skin infection 08/31/201503/13 CKD stage 3 due to type 2 diabetes mellitus 01/1011/16/2018 Overview: Dr. Lilian Vance, nephrology BMI 45.0-49.9, adult 02/06/2015 12/01/2019 Venous insufficiency 02/06/2015 04/12/2017 DM type 2 causing CKD stage 3 09/21/2014 Overview: Dr Landen Best, endocrinology Degenerative arthritis of hip 07/01/2014 BMI 45.0-49.9, adult 03/31/2014 10/13/2014 Diabetes mellitus type II, uncontrolled 11/26/19 14 02/06/2015 BMI 40.0-44.9, adult 10/14/2013 03/31/2014 Chest pain 09/13/2012 03/13/2016 Overview: Substernal pressure lasting ~5hrs, partially relieved with SLN. Significant risk factors for CAD (HTN, HLD, DM). EKG does to show ST changes. Initial CE at [facility] are supposedly negative. Prior stress test in 2010 was normal. DM well controlled. Currently low likelihood for ACS. - EKG - trend Donald - stress test vs [facility] S/P total knee replacement using cement 07/02/20 12 07/15/2018 Degenerative arthritis of right knee 06/10/2012 08/12/2014 Allergic contact dermatitis due to metals 201108/16/2020 Sensorineural hearing loss, bilateral 07/19/2011 08/16/2020 Diverticulosis 08/23/2010 03/13/2016 Thyroid CA 02/21/2010 08/12/2014 Overview: * Surgery (12/15/09): total thyroidectomy, Dr. Jamey Ibrahim, [facility] * Path (10/29/09): FNA Atypical cells present in a background of cyst contents, suspicious for papillary thyroid carcinoma (12/15/09): single well-circumscribed nodule in the right inferior lobe, which measured 3.5 cm in greatest dimension. The nodule was extensively hemorrhagic and cystic with a rim of viable material which ranges in appearance from papillary architecture to follicular structures. There is no evidence of a higher grade component. There is no definitive lymphovascular space invasion identified. In some areas, the tumor cells have oncocytic cytoplasm, however, the cells do not meet criteria for tall-cell variant of papillary thyroid carcinoma. * SIDDIQI (02/17/10): Rx 131-Iodine 102.4 mCi, Thyrogen-stim * Scan (02/24/10): post-treatment scan (Thyrogen-stim) shows uptake in left neck, also in liver area. SPECT images show one focus of uptake in lateral segment of the left lobe of the liver, one in the medial segment of the left lobe of liver, and one in the posterior segment of the right lobe of the liver. (05/03/11): Thyrogen stim 123-Iodine scan negative * Thyroglobulin Component Thyroglobulin TG Antibody Screen Stimulation Latest Ref Rng 0.8 - 49.0 ng/mL <14.4 IU/mL 11/05/2009 75.7 (H) 1.0 01/18/2010 <0.2 (L) 1.1 02/16/2010 0.3 (L) 1.0 Thyrogen 07/05/2010 <0.2 (L) 1.3 12/27/2010 <0.2 (L) 1.3 05/08/2011 <0.2 (L) 1.1 Thyrogen 07/24/2011 <0.2 (L) 1.5 01/23/2012 <0.2 (L) 1.0 07/27/2012 <0.2 (L) <1.0 02/18/2013 <0.2 (L) <1.0 08/12/2013 <0.2 (L) <1.0 * mRNA (11/03/09): TSH-R mRNA=1.7 ng/ug (11/30/09): TSH-R mRNA=1.8 ng/ug (01/18/10): no TSH-R mRNA assay postop (07/05/10): TSH-R mRNA <1.0 ng/ug (12/27/10): TSH-R mRNA <1.0 ng/ug * Ultrasound (01/18/10): no suspicious adenopathy along great vessels or in lateral neck on either side. No masses in thyroid bed. (12/27/10): no suspicious adenopathy along great vessels or in lateral neck on either side. No masses in thyroid bed. (01/24/12): no suspicious adenopathy along great vessels or in lateral neck on either side. No masses in thyroid bed. (08/11/13): no suspicious adenopathy along great vessels or in lateral neck on either side. No masses in thyroid bed. Thyroid nodule 10/20/2009 03/02/2010 Incisional hernia without mention of obstruction or gangrene 09/12/2005 08/12/2014 Symptomatic menopausal or female climacteric sta aniceto 04/07/2003 10/15/2017 Diabetes mellitus type 2 03/02/2003 014 Overview: *Type (): dx type 2 diabetes *Control hx Component Hemoglobin A1C Latest Ref Rng 4.0 - 6.0 % 01/17/2011 6.8 05/08/2011 7.2 07/24/2011 6.8 01/23/2012 6.7 07/27/2012 6.1 (H) 02/18/2013 6.4 (H) 08/08/2013 7.0 (H) 10/13/2013 7.1 (H) 02/17/14 7.3 * Eye hx (10/2008): no DM changes per Dr. Campoverde (07/2013): no DM changes per pt, exam Dr. Campoverde * Renal hx Component Albumin/Creat Ratio Latest Ref Rng 0 - 30 mg/g 04/03/2005 8 05/03/2006 8 03/26/2008 13 01/22/2009 18 02/16/2010 10 07/05/2010 9 05/08/2011 13 08/08/2013 9 * Vascular hx (11/12/13): no hx [place], stroke, Component Latest Ref Rng 02/18/2013 08/12/2013 10/13/2013 Triglyceride 30 - 149 mg/dL 114 123 126 Cholesterol 100 - 199 mg/dL 196 192 187 HDL Cholesterol >55 mg/dL 47 (L) 58 52 (L) VLDL Cholesterol 6 - 40 mg/dL 23 25 25 LDL Cholesterol 60 - 129 mg/dL 126 109 110 Fasting Time FASTING FASTING fasting TC:HDL Ratio 1.00 - 5.00 4.17 3.31 3.60 LDL:HDL Ratio 0.50 - 3.55 2.68 1.88 2.12 Non HDL Cholesterol 90 - 159 mg/dL 149 134 135 * Sleep (11/12/13): has obstructive sleep apnea, uses BiPAP since titration 04/07/13 * Exercise (11/12/13): not exercisnig * Medications (11/12/13): Victoza 1.8 mg daily, metformin 500 mg 2-1-1, * Physician (11/12/13): primary physician is Hayley Malone Morbid obesity 03/02/2003 07/15/2014 HYPERLIPIDEMIA NEC/NOS 5 documented as of this encounter (statuses as of 01/27/2022) [facility]2020 History of Past illness Narrative* Problem Noted Date Resolved Date Postoperative abdominal pain 07/12/202011/2020 Mild protein-calorie malnutrition 06/28/2020 06/29/2020 Infected prosthetic mesh of abdominal wall 06/2006/30/2020 Obesity, Class II, BMI 35-39.9 06/13/2019 1 10/17/2019 SBO (small bowel obstruction) 06/07/2019 Morbid obesity 03/10/2019 06/13/2019 Abnormal cardiovascular stress test 09/11/2017 10/15/2017 Primary osteoarthritis of right hip 11/27/2016 08/18/2020 Trochanteric bursitis of right hip 11/27/2016 08/18/2020 Dyspnea, unspecified 03/08/2016 08/16/2020 Angiomyolipoma of right kidney 01/11/2016 1 Essential hypertension with goal blood pressure less than 140/90 12/13/2015 04/12/2017 Obstructive sleep apnea syndrome 12/13/2015 04/12/2017 Superficial skin infection 08/31/201503/13 CKD stage 3 due to type 2 diabetes mellitus 01/1011/16/2018 Overview: Dr. Lilian Vance, nephrology BMI 45.0-49.9, adult 02/06/2015 12/01/2019 Venous insufficiency 02/06/2015 04/12/2017 DM type 2 causing CKD stage 3 09/21/2014 Overview: Dr Landen Best, endocrinology Degenerative arthritis of hip 07/01/2014 BMI 45.0-49.9, adult 03/31/2014 10/13/2014 Diabetes mellitus type II, uncontrolled 11/26/19 14 02/06/2015 BMI 40.0-44.9, adult 10/14/2013 03/31/2014 Chest pain 09/13/2012 03/13/2016 Overview: Substernal pressure lasting ~5hrs, partially relieved with SLN. Significant risk factors for CAD (HTN, HLD, DM). EKG does to show ST changes. Initial CE at [facility] are supposedly negative. Prior stress test in 2010 was normal. DM well controlled. Currently low likelihood for ACS. - EKG - trend [facility] - stress test vs [facility] S/P total knee replacement using cement 07/02/20 12 07/15/2018 Degenerative arthritis of right knee 06/10/2012 08/12/2014 Allergic contact dermatitis due to metals 201108/16/2020 Sensorineural hearing loss, bilateral 07/19/2011 08/16/2020 Diverticulosis 08/23/2010 03/13/2016 Thyroid CA 02/21/2010 08/12/2014 Overview: * Surgery (12/15/09): total thyroidectomy, Dr. Jamey Ibrahim, [facility] * Path (10/29/09): FNA Atypical cells present in a background of cyst contents, suspicious for papillary thyroid carcinoma (12/15/09): single well-circumscribed nodule in the right inferior lobe, which measured 3.5 cm in greatest dimension. The nodule was extensively hemorrhagic and cystic with a rim of viable material which ranges in appearance from papillary architecture to follicular structures. There is no evidence of a higher grade component. There is no definitive lymphovascular space invasion identified. In some areas, the tumor cells have oncocytic cytoplasm, however, the cells do not meet criteria for tall-cell variant of papillary thyroid carcinoma. * SIDDIQI (02/17/10): Rx 131-Iodine 102.4 mCi, Thyrogen-stim * Scan (02/24/10): post-treatment scan (Thyrogen-stim) shows uptake in left neck, also in liver area. SPECT images show one focus of uptake in lateral segment of the left lobe of the liver, one in the medial segment of the left lobe of liver, and one in the posterior segment of the right lobe of the liver. (05/03/11): Thyrogen stim 123-Iodine scan negative * Thyroglobulin Component Thyroglobulin TG Antibody Screen Stimulation Latest Ref Rng 0.8 - 49.0 ng/mL <14.4 IU/mL 11/05/2009 75.7 (H) 1.0 01/18/2010 <0.2 (L) 1.1 02/16/2010 0.3 (L) 1.0 Thyrogen 07/05/2010 <0.2 (L) 1.3 12/27/2010 <0.2 (L) 1.3 05/08/2011 <0.2 (L) 1.1 Thyrogen 07/24/2011 <0.2 (L) 1.5 01/23/2012 <0.2 (L) 1.0 07/27/2012 <0.2 (L) <1.0 02/18/2013 <0.2 (L) <1.0 08/12/2013 <0.2 (L) <1.0 * mRNA (11/03/09): TSH-R mRNA=1.7 ng/ug (11/30/09): TSH-R mRNA=1.8 ng/ug (01/18/10): no TSH-R mRNA assay postop (07/05/10): TSH-R mRNA <1.0 ng/ug (12/27/10): TSH-R mRNA <1.0 ng/ug * Ultrasound (01/18/10): no suspicious adenopathy along great vessels or in lateral neck on either side. No masses in thyroid bed. (12/27/10): no suspicious adenopathy along great vessels or in lateral neck on either side. No masses in thyroid bed. (01/24/12): no suspicious adenopathy along great vessels or in lateral neck on either side. No masses in thyroid bed. (08/11/13): no suspicious adenopathy along great vessels or in lateral neck on either side. No masses in thyroid bed. Thyroid nodule 10/20/2009 03/02/2010 Incisional hernia without mention of obstruction or gangrene 09/12/2005 08/12/2014 Symptomatic menopausal or female climacteric sta aniceto 04/07/2003 10/15/2017 Diabetes mellitus type 2 03/02/2003 014 Overview: *Type (): dx type 2 diabetes *Control hx Component Hemoglobin A1C Latest Ref Rng 4.0 - 6.0 % 01/17/2011 6.8 05/08/2011 7.2 07/24/2011 6.8 01/23/2012 6.7 07/27/2012 6.1 (H) 02/18/2013 6.4 (H) 08/08/2013 7.0 (H) 10/13/2013 7.1 (H) 02/17/14 7.3 * Eye hx (10/2008): no DM changes per Dr. Campoverde (07/2013): no DM changes per pt, exam Dr. Campoverde * Renal hx Component Albumin/Creat Ratio Latest Ref Rng 0 - 30 mg/g 04/03/2005 8 05/03/2006 8 03/26/2008 13 01/22/2009 18 02/16/2010 10 07/05/2010 9 05/08/2011 13 08/08/2013 9 * Vascular hx (11/12/13): no hx [place], stroke, Component Latest Ref Rng 02/18/2013 08/12/2013 10/13/2013 Triglyceride 30 - 149 mg/dL 114 123 126 Cholesterol 100 - 199 mg/dL 196 192 187 HDL Cholesterol >55 mg/dL 47 (L) 58 52 (L) VLDL Cholesterol 6 - 40 mg/dL 23 25 25 LDL Cholesterol 60 - 129 mg/dL 126 109 110 Fasting Time FASTING FASTING fasting TC:HDL Ratio 1.00 - 5.00 4.17 3.31 3.60 LDL:HDL Ratio 0.50 - 3.55 2.68 1.88 2.12 Non HDL Cholesterol 90 - 159 mg/dL 149 134 135 * Sleep (11/12/13): has obstructive sleep apnea, uses BiPAP since titration 04/07/13 * Exercise (11/12/13): not exercisnig * Medications (11/12/13): Victoza 1.8 mg daily, metformin 500 mg 2-1-1, * Physician (11/12/13): primary physician is Hayley Malone Morbid obesity 03/02/2003 07/15/2014 HYPERLIPIDEMIA NEC/NOS 5 documented as of this encounter (statuses as of 02/01/2022) [facility]11-[facility]2020 History of Past illness Narrative* Problem Noted Date Resolved Date Postoperative abdominal pain 07/12/202011/2020 Mild protein-calorie malnutrition 06/28/2020 06/29/2020 Infected prosthetic mesh of abdominal wall 06/2006/30/2020 Obesity, Class II, BMI 35-39.9 06/13/2019 1 10/17/2019 SBO (small bowel obstruction) 06/07/2019 Morbid obesity 03/10/2019 06/13/2019 Abnormal cardiovascular stress test 09/11/2017 10/15/2017 Primary osteoarthritis of right hip 11/27/2016 08/18/2020 Trochanteric bursitis of right hip 11/27/2016 08/18/2020 Dyspnea, unspecified 03/08/2016 08/16/2020 Angiomyolipoma of right kidney 01/11/2016 1 Essential hypertension with goal blood pressure less than 140/90 12/13/2015 04/12/2017 Obstructive sleep apnea syndrome 12/13/2015 04/12/2017 Superficial skin infection 08/31/201503/13 CKD stage 3 due to type 2 diabetes mellitus 01/1011/16/2018 Overview: Dr. Lilian Vance, nephrology BMI 45.0-49.9, adult 02/06/2015 12/01/2019 Venous insufficiency 02/06/2015 04/12/2017 DM type 2 causing CKD stage 3 09/21/2014 Overview: Dr Landen Best, endocrinology Degenerative arthritis of hip 07/01/2014 BMI 45.0-49.9, adult 03/31/2014 10/13/2014 Diabetes mellitus type II, uncontrolled 11/26/19 14 02/06/2015 BMI 40.0-44.9, adult 10/14/2013 03/31/2014 Chest pain 09/13/2012 03/13/2016 Overview: Substernal pressure lasting ~5hrs, partially relieved with SLN. Significant risk factors for CAD (HTN, HLD, DM). EKG does to show ST changes. Initial CE at [facility] are supposedly negative. Prior stress test in 2010 was normal. DM well controlled. Currently low likelihood for ACS. - EKG - trend [facility] - stress test vs [facility] S/P total knee replacement using cement 07/02/20 12 07/15/2018 Degenerative arthritis of right knee 06/10/2012 08/12/2014 Allergic contact dermatitis due to metals 201108/16/2020 Sensorineural hearing loss, bilateral 07/19/2011 08/16/2020 Diverticulosis 08/23/2010 03/13/2016 Thyroid CA 02/21/2010 08/12/2014 Overview: * Surgery (12/15/09): total thyroidectomy, Dr. Jamey Ibrahim, [facility] * Path (10/29/09): FNA Atypical cells present in a background of cyst contents, suspicious for papillary thyroid carcinoma (12/15/09): single well-circumscribed nodule in the right inferior lobe, which measured 3.5 cm in greatest dimension. The nodule was extensively hemorrhagic and cystic with a rim of viable material which ranges in appearance from papillary architecture to follicular structures. There is no evidence of a higher grade component. There is no definitive lymphovascular space invasion identified. In some areas, the tumor cells have oncocytic cytoplasm, however, the cells do not meet criteria for tall-cell variant of papillary thyroid carcinoma. * SIDDIQI (02/17/10): Rx 131-Iodine 102.4 mCi, Thyrogen-stim * Scan (02/24/10): post-treatment scan (Thyrogen-stim) shows uptake in left neck, also in liver area. SPECT images show one focus of uptake in lateral segment of the left lobe of the liver, one in the medial segment of the left lobe of liver, and one in the posterior segment of the right lobe of the liver. (05/03/11): Thyrogen stim 123-Iodine scan negative * Thyroglobulin Component Thyroglobulin TG Antibody Screen Stimulation Latest Ref Rng 0.8 - 49.0 ng/mL <14.4 IU/mL 11/05/2009 75.7 (H) 1.0 01/18/2010 <0.2 (L) 1.1 02/16/2010 0.3 (L) 1.0 Thyrogen 07/05/2010 <0.2 (L) 1.3 12/27/2010 <0.2 (L) 1.3 05/08/2011 <0.2 (L) 1.1 Thyrogen 07/24/2011 <0.2 (L) 1.5 01/23/2012 <0.2 (L) 1.0 07/27/2012 <0.2 (L) <1.0 02/18/2013 <0.2 (L) <1.0 08/12/2013 <0.2 (L) <1.0 * mRNA (11/03/09): TSH-R mRNA=1.7 ng/ug (11/30/09): TSH-R mRNA=1.8 ng/ug (01/18/10): no TSH-R mRNA assay postop (07/05/10): TSH-R mRNA <1.0 ng/ug (12/27/10): TSH-R mRNA <1.0 ng/ug * Ultrasound (01/18/10): no suspicious adenopathy along great vessels or in lateral neck on either side. No masses in thyroid bed. (12/27/10): no suspicious adenopathy along great vessels or in lateral neck on either side. No masses in thyroid bed. (01/24/12): no suspicious adenopathy along great vessels or in lateral neck on either side. No masses in thyroid bed. (08/11/13): no suspicious adenopathy along great vessels or in lateral neck on either side. No masses in thyroid bed. Thyroid nodule 10/20/2009 03/02/2010 Incisional hernia without mention of obstruction or gangrene 09/12/2005 08/12/2014 Symptomatic menopausal or female climacteric sta aniceto 04/07/2003 10/15/2017 Diabetes mellitus type 2 03/02/2003 014 Overview: *Type (): dx type 2 diabetes *Control hx Component Hemoglobin A1C Latest Ref Rng 4.0 - 6.0 % 01/17/2011 6.8 05/08/2011 7.2 07/24/2011 6.8 01/23/2012 6.7 07/27/2012 6.1 (H) 02/18/2013 6.4 (H) 08/08/2013 7.0 (H) 10/13/2013 7.1 (H) 02/17/14 7.3 * Eye hx (10/2008): no DM changes per Dr. Campoverde (07/2013): no DM changes per pt, exam Dr. Campoverde * Renal hx Component Albumin/Creat Ratio Latest Ref Rng 0 - 30 mg/g 04/03/2005 8 05/03/2006 8 03/26/2008 13 01/22/2009 18 02/16/2010 10 07/05/2010 9 05/08/2011 13 08/08/2013 9 * Vascular hx (11/12/13): no hx [place], stroke, Component Latest Ref Rng 02/18/2013 08/12/2013 10/13/2013 Triglyceride 30 - 149 mg/dL 114 123 126 Cholesterol 100 - 199 mg/dL 196 192 187 HDL Cholesterol >55 mg/dL 47 (L) 58 52 (L) VLDL Cholesterol 6 - 40 mg/dL 23 25 25 LDL Cholesterol 60 - 129 mg/dL 126 109 110 Fasting Time FASTING FASTING fasting TC:HDL Ratio 1.00 - 5.00 4.17 3.31 3.60 LDL:HDL Ratio 0.50 - 3.55 2.68 1.88 2.12 Non HDL Cholesterol 90 - 159 mg/dL 149 134 135 * Sleep (11/12/13): has obstructive sleep apnea, uses BiPAP since titration 04/07/13 * Exercise (11/12/13): not exercisnig * Medications (11/12/13): Victoza 1.8 mg daily, metformin 500 mg 2-1-1, * Physician (11/12/13): primary physician is Hayley Malone Morbid obesity 03/02/2003 07/15/2014 HYPERLIPIDEMIA NEC/NOS 5 documented as of this encounter (statuses as of 02/10/2022) [facility] History of Past illness Narrative* Problem Noted Date Resolved Date Postoperative abdominal pain 07/12/202011/2020 Mild protein-calorie malnutrition 06/28/2020 06/29/2020 Infected prosthetic mesh of abdominal wall 06/2006/30/2020 Obesity, Class II, BMI 35-39.9 06/13/2019 1 10/17/2019 SBO (small bowel obstruction) 06/07/2019 Morbid obesity 03/10/2019 06/13/2019 Abnormal cardiovascular stress test 09/11/2017 10/15/2017 Primary osteoarthritis of right hip 11/27/2016 08/18/2020 Trochanteric bursitis of right hip 11/27/2016 08/18/2020 Dyspnea, unspecified 03/08/2016 08/16/2020 Angiomyolipoma of right kidney 01/11/2016 1 Essential hypertension with goal blood pressure less than 140/90 12/13/2015 04/12/2017 Obstructive sleep apnea syndrome 12/13/2015 04/12/2017 Superficial skin infection 08/31/201503/13 CKD stage 3 due to type 2 diabetes mellitus 01/1011/16/2018 Overview: Dr. Lilian Vance, nephrology BMI 45.0-49.9, adult 02/06/2015 12/01/2019 Venous insufficiency 02/06/2015 04/12/2017 DM type 2 causing CKD stage 3 09/21/2014 Overview: Dr Landen Best, endocrinology Degenerative arthritis of hip 07/01/2014 BMI 45.0-49.9, adult 03/31/2014 10/13/2014 Diabetes mellitus type II, uncontrolled 11/26/19 14 02/06/2015 BMI 40.0-44.9, adult 10/14/2013 03/31/2014 Chest pain 09/13/2012 03/13/2016 Overview: Substernal pressure lasting ~5hrs, partially relieved with SLN. Significant risk factors for CAD (HTN, HLD, DM). EKG does to show ST changes. Initial CE at [facility] are supposedly negative. Prior stress test in 2010 was normal. DM well controlled. Currently low likelihood for ACS. - EKG - trend [facility] - stress test vs [facility] S/P total knee replacement using cement 07/02/20 12 07/15/2018 Degenerative arthritis of right knee 06/10/2012 08/12/2014 Allergic contact dermatitis due to metals 201108/16/2020 Sensorineural hearing loss, bilateral 07/19/2011 08/16/2020 Diverticulosis 08/23/2010 03/13/2016 Thyroid CA 02/21/2010 08/12/2014 Overview: * Surgery (12/15/09): total thyroidectomy, Dr. Jamey Ibrahim, [facility] * Path (10/29/09): FNA Atypical cells present in a background of cyst contents, suspicious for papillary thyroid carcinoma (12/15/09): single well-circumscribed nodule in the right inferior lobe, which measured 3.5 cm in greatest dimension. The nodule was extensively hemorrhagic and cystic with a rim of viable material which ranges in appearance from papillary architecture to follicular structures. There is no evidence of a higher grade component. There is no definitive lymphovascular space invasion identified. In some areas, the tumor cells have oncocytic cytoplasm, however, the cells do not meet criteria for tall-cell variant of papillary thyroid carcinoma. * SIDDIQI (02/17/10): Rx 131-Iodine 102.4 mCi, Thyrogen-stim * Scan (02/24/10): post-treatment scan (Thyrogen-stim) shows uptake in left neck, also in liver area. SPECT images show one focus of uptake in lateral segment of the left lobe of the liver, one in the medial segment of the left lobe of liver, and one in the posterior segment of the right lobe of the liver. (05/03/11): Thyrogen stim 123-Iodine scan negative * Thyroglobulin Component Thyroglobulin TG Antibody Screen Stimulation Latest Ref Rng 0.8 - 49.0 ng/mL <14.4 IU/mL 11/05/2009 75.7 (H) 1.0 01/18/2010 <0.2 (L) 1.1 02/16/2010 0.3 (L) 1.0 Thyrogen 07/05/2010 <0.2 (L) 1.3 12/27/2010 <0.2 (L) 1.3 05/08/2011 <0.2 (L) 1.1 Thyrogen 07/24/2011 <0.2 (L) 1.5 01/23/2012 <0.2 (L) 1.0 07/27/2012 <0.2 (L) <1.0 02/18/2013 <0.2 (L) <1.0 08/12/2013 <0.2 (L) <1.0 * mRNA (11/03/09): TSH-R mRNA=1.7 ng/ug (11/30/09): TSH-R mRNA=1.8 ng/ug (01/18/10): no TSH-R mRNA assay postop (07/05/10): TSH-R mRNA <1.0 ng/ug (12/27/10): TSH-R mRNA <1.0 ng/ug * Ultrasound (01/18/10): no suspicious adenopathy along great vessels or in lateral neck on either side. No masses in thyroid bed. (12/27/10): no suspicious adenopathy along great vessels or in lateral neck on either side. No masses in thyroid bed. (01/24/12): no suspicious adenopathy along great vessels or in lateral neck on either side. No masses in thyroid bed. (08/11/13): no suspicious adenopathy along great vessels or in lateral neck on either side. No masses in thyroid bed. Thyroid nodule 10/20/2009 03/02/2010 Incisional hernia without mention of obstruction or gangrene 09/12/2005 08/12/2014 Symptomatic menopausal or female climacteric sta aniceto 04/07/2003 10/15/2017 Diabetes mellitus type 2 03/02/2003 014 Overview: *Type (): dx type 2 diabetes *Control hx Component Hemoglobin A1C Latest Ref Rng 4.0 - 6.0 % 01/17/2011 6.8 05/08/2011 7.2 07/24/2011 6.8 01/23/2012 6.7 07/27/2012 6.1 (H) 02/18/2013 6.4 (H) 08/08/2013 7.0 (H) 10/13/2013 7.1 (H) 02/17/14 7.3 * Eye hx (10/2008): no DM changes per Dr. Campoverde (07/2013): no DM changes per pt, exam Dr. Campoverde * Renal hx Component Albumin/Creat Ratio Latest Ref Rng 0 - 30 mg/g 04/03/2005 8 05/03/2006 8 03/26/2008 13 01/22/2009 18 02/16/2010 10 07/05/2010 9 05/08/2011 13 08/08/2013 9 * Vascular hx (11/12/13): no hx [place], stroke, Component Latest Ref Rng 02/18/2013 08/12/2013 10/13/2013 Triglyceride 30 - 149 mg/dL 114 123 126 Cholesterol 100 - 199 mg/dL 196 192 187 HDL Cholesterol >55 mg/dL 47 (L) 58 52 (L) VLDL Cholesterol 6 - 40 mg/dL 23 25 25 LDL Cholesterol 60 - 129 mg/dL 126 109 110 Fasting Time FASTING FASTING fasting TC:HDL Ratio 1.00 - 5.00 4.17 3.31 3.60 LDL:HDL Ratio 0.50 - 3.55 2.68 1.88 2.12 Non HDL Cholesterol 90 - 159 mg/dL 149 134 135 * Sleep (11/12/13): has obstructive sleep apnea, uses BiPAP since titration 04/07/13 * Exercise (11/12/13): not exercisnig * Medications (11/12/13): Victoza 1.8 mg daily, metformin 500 mg 2-1-1, * Physician (11/12/13): primary physician is Hayley Malone Morbid obesity 03/02/2003 07/15/2014 HYPERLIPIDEMIA NEC/NOS 5 documented as of this encounter (statuses as of 02/13/2022) [facility] History of Past illness Narrative* Problem Noted Date Resolved Date Postoperative abdominal pain 07/12/202011/2020 Mild protein-calorie malnutrition 06/28/2020 06/29/2020 Infected prosthetic mesh of abdominal wall 06/2006/30/2020 Obesity, Class II, BMI 35-39.9 06/13/2019 1 10/17/2019 SBO (small bowel obstruction) 06/07/2019 Morbid obesity 03/10/2019 06/13/2019 Abnormal cardiovascular stress test 09/11/2017 10/15/2017 Primary osteoarthritis of right hip 11/27/2016 08/18/2020 Trochanteric bursitis of right hip 11/27/2016 08/18/2020 Dyspnea, unspecified 03/08/2016 08/16/2020 Angiomyolipoma of right kidney 01/11/2016 1 Essential hypertension with goal blood pressure less than 140/90 12/13/2015 04/12/2017 Obstructive sleep apnea syndrome 12/13/2015 04/12/2017 Superficial skin infection 08/31/201503/13 CKD stage 3 due to type 2 diabetes mellitus 01/1011/16/2018 Overview: Dr. Lilian Vance, nephrology BMI 45.0-49.9, adult 02/06/2015 12/01/2019 Venous insufficiency 02/06/2015 04/12/2017 DM type 2 causing CKD stage 3 09/21/2014 Overview: Dr Landen Best, endocrinology Degenerative arthritis of hip 07/01/2014 BMI 45.0-49.9, adult 03/31/2014 10/13/2014 Diabetes mellitus type II, uncontrolled 11/26/19 14 02/06/2015 BMI 40.0-44.9, adult 10/14/2013 03/31/2014 Chest pain 09/13/2012 03/13/2016 Overview: Substernal pressure lasting ~5hrs, partially relieved with SLN. Significant risk factors for CAD (HTN, HLD, DM). EKG does to show ST changes. Initial CE at [facility] are supposedly negative. Prior stress test in 2010 was normal. DM well controlled. Currently low likelihood for ACS. - EKG - trend Donald - stress test vs [facility] S/P total knee replacement using cement 07/02/20 12 07/15/2018 Degenerative arthritis of right knee 06/10/2012 08/12/2014 Allergic contact dermatitis due to metals 201108/16/2020 Sensorineural hearing loss, bilateral 07/19/2011 08/16/2020 Diverticulosis 08/23/2010 03/13/2016 Thyroid CA 02/21/2010 08/12/2014 Overview: * Surgery (12/15/09): total thyroidectomy, Dr. Jamey Ibrahim, [facility] * Path (10/29/09): FNA Atypical cells present in a background of cyst contents, suspicious for papillary thyroid carcinoma (12/15/09): single well-circumscribed nodule in the right inferior lobe, which measured 3.5 cm in greatest dimension. The nodule was extensively hemorrhagic and cystic with a rim of viable material which ranges in appearance from papillary architecture to follicular structures. There is no evidence of a higher grade component. There is no definitive lymphovascular space invasion identified. In some areas, the tumor cells have oncocytic cytoplasm, however, the cells do not meet criteria for tall-cell variant of papillary thyroid carcinoma. * SIDDIQI (02/17/10): Rx 131-Iodine 102.4 mCi, Thyrogen-stim * Scan (02/24/10): post-treatment scan (Thyrogen-stim) shows uptake in left neck, also in liver area. SPECT images show one focus of uptake in lateral segment of the left lobe of the liver, one in the medial segment of the left lobe of liver, and one in the posterior segment of the right lobe of the liver. (05/03/11): Thyrogen stim 123-Iodine scan negative * Thyroglobulin Component Thyroglobulin TG Antibody Screen Stimulation Latest Ref Rng 0.8 - 49.0 ng/mL <14.4 IU/mL 11/05/2009 75.7 (H) 1.0 01/18/2010 <0.2 (L) 1.1 02/16/2010 0.3 (L) 1.0 Thyrogen 07/05/2010 <0.2 (L) 1.3 12/27/2010 <0.2 (L) 1.3 05/08/2011 <0.2 (L) 1.1 Thyrogen 07/24/2011 <0.2 (L) 1.5 01/23/2012 <0.2 (L) 1.0 07/27/2012 <0.2 (L) <1.0 02/18/2013 <0.2 (L) <1.0 08/12/2013 <0.2 (L) <1.0 * mRNA (11/03/09): TSH-R mRNA=1.7 ng/ug (11/30/09): TSH-R mRNA=1.8 ng/ug (01/18/10): no TSH-R mRNA assay postop (07/05/10): TSH-R mRNA <1.0 ng/ug (12/27/10): TSH-R mRNA <1.0 ng/ug * Ultrasound (01/18/10): no suspicious adenopathy along great vessels or in lateral neck on either side. No masses in thyroid bed. (12/27/10): no suspicious adenopathy along great vessels or in lateral neck on either side. No masses in thyroid bed. (01/24/12): no suspicious adenopathy along great vessels or in lateral neck on either side. No masses in thyroid bed. (08/11/13): no suspicious adenopathy along great vessels or in lateral neck on either side. No masses in thyroid bed. Thyroid nodule 10/20/2009 03/02/2010 Incisional hernia without mention of obstruction or gangrene 09/12/2005 08/12/2014 Symptomatic menopausal or female climacteric sta aniceto 04/07/2003 10/15/2017 Diabetes mellitus type 2 03/02/2003 014 Overview: *Type (): dx type 2 diabetes *Control hx Component Hemoglobin A1C Latest Ref Rng 4.0 - 6.0 % 01/17/2011 6.8 05/08/2011 7.2 07/24/2011 6.8 01/23/2012 6.7 07/27/2012 6.1 (H) 02/18/2013 6.4 (H) 08/08/2013 7.0 (H) 10/13/2013 7.1 (H) 02/17/14 7.3 * Eye hx (10/2008): no DM changes per Dr. Campoverde (07/2013): no DM changes per pt, exam Dr. Campoverde * Renal hx Component Albumin/Creat Ratio Latest Ref Rng 0 - 30 mg/g 04/03/2005 8 05/03/2006 8 03/26/2008 13 01/22/2009 18 02/16/2010 10 07/05/2010 9 05/08/2011 13 08/08/2013 9 * Vascular hx (11/12/13): no hx [place], stroke, Component Latest Ref Rng 02/18/2013 08/12/2013 10/13/2013 Triglyceride 30 - 149 mg/dL 114 123 126 Cholesterol 100 - 199 mg/dL 196 192 187 HDL Cholesterol >55 mg/dL 47 (L) 58 52 (L) VLDL Cholesterol 6 - 40 mg/dL 23 25 25 LDL Cholesterol 60 - 129 mg/dL 126 109 110 Fasting Time FASTING FASTING fasting TC:HDL Ratio 1.00 - 5.00 4.17 3.31 3.60 LDL:HDL Ratio 0.50 - 3.55 2.68 1.88 2.12 Non HDL Cholesterol 90 - 159 mg/dL 149 134 135 * Sleep (11/12/13): has obstructive sleep apnea, uses BiPAP since titration 04/07/13 * Exercise (11/12/13): not exercisnig * Medications (11/12/13): Victoza 1.8 mg daily, metformin 500 mg 2-1-1, * Physician (11/12/13): primary physician is Hayley Malone Morbid obesity 03/02/2003 07/15/2014 HYPERLIPIDEMIA NEC/NOS 5 documented as of this encounter (statuses as of 02/15/2022) [facility]2020 History of Past illness Narrative* Problem Noted Date Resolved Date Postoperative abdominal pain 07/12/202011/2020 Mild protein-calorie malnutrition 06/28/2020 06/29/2020 Infected prosthetic mesh of abdominal wall 06/2006/30/2020 Obesity, Class II, BMI 35-39.9 06/13/2019 1 10/17/2019 SBO (small bowel obstruction) 06/07/2019 Morbid obesity 03/10/2019 06/13/2019 Abnormal cardiovascular stress test 09/11/2017 10/15/2017 Primary osteoarthritis of right hip 11/27/2016 08/18/2020 Trochanteric bursitis of right hip 11/27/2016 08/18/2020 Dyspnea, unspecified 03/08/2016 08/16/2020 Angiomyolipoma of right kidney 01/11/2016 1 Essential hypertension with goal blood pressure less than 140/90 12/13/2015 04/12/2017 Obstructive sleep apnea syndrome 12/13/2015 04/12/2017 Superficial skin infection 08/31/201503/13 CKD stage 3 due to type 2 diabetes mellitus 01/1011/16/2018 Overview: Dr. Lilian Vance, nephrology BMI 45.0-49.9, adult 02/06/2015 12/01/2019 Venous insufficiency 02/06/2015 04/12/2017 DM type 2 causing CKD stage 3 09/21/2014 Overview: Dr Landen Best, endocrinology Degenerative arthritis of hip 07/01/2014 BMI 45.0-49.9, adult 03/31/2014 10/13/2014 Diabetes mellitus type II, uncontrolled 11/26/19 14 02/06/2015 BMI 40.0-44.9, adult 10/14/2013 03/31/2014 Chest pain 09/13/2012 03/13/2016 Overview: Substernal pressure lasting ~5hrs, partially relieved with SLN. Significant risk factors for CAD (HTN, HLD, DM). EKG does to show ST changes. Initial CE at [facility] are supposedly negative. Prior stress test in 2010 was normal. DM well controlled. Currently low likelihood for ACS. - EKG - trend Donald - stress test vs [facility] S/P total knee replacement using cement 07/02/20 12 07/15/2018 Degenerative arthritis of right knee 06/10/2012 08/12/2014 Allergic contact dermatitis due to metals 201108/16/2020 Sensorineural hearing loss, bilateral 07/19/2011 08/16/2020 Diverticulosis 08/23/2010 03/13/2016 Thyroid CA 02/21/2010 08/12/2014 Overview: * Surgery (12/15/09): total thyroidectomy, Dr. Jamey Ibrahim, [facility] * Path (10/29/09): FNA Atypical cells present in a background of cyst contents, suspicious for papillary thyroid carcinoma (12/15/09): single well-circumscribed nodule in the right inferior lobe, which measured 3.5 cm in greatest dimension. The nodule was extensively hemorrhagic and cystic with a rim of viable material which ranges in appearance from papillary architecture to follicular structures. There is no evidence of a higher grade component. There is no definitive lymphovascular space invasion identified. In some areas, the tumor cells have oncocytic cytoplasm, however, the cells do not meet criteria for tall-cell variant of papillary thyroid carcinoma. * S[facility]DIQI (02/17/10): Rx 131-Iodine 102.4 mCi, Thyrogen-stim * Scan (02/24/10): post-treatment scan (Thyrogen-stim) shows uptake in left neck, also in liver area. SPECT images show one focus of uptake in lateral segment of the left lobe of the liver, one in the medial segment of the left lobe of liver, and one in the posterior segment of the right lobe of the liver. (05/03/11): Thyrogen stim 123-Iodine scan negative * Thyroglobulin Component Thyroglobulin TG Antibody Screen Stimulation Latest Ref Rng 0.8 - 49.0 ng/mL <14.4 IU/mL 11/05/2009 75.7 (H) 1.0 01/18/2010 <0.2 (L) 1.1 02/16/2010 0.3 (L) 1.0 Thyrogen 07/05/2010 <0.2 (L) 1.3 12/27/2010 <0.2 (L) 1.3 05/08/2011 <0.2 (L) 1.1 Thyrogen 07/24/2011 <0.2 (L) 1.5 01/23/2012 <0.2 (L) 1.0 07/27/2012 <0.2 (L) <1.0 02/18/2013 <0.2 (L) <1.0 08/12/2013 <0.2 (L) <1.0 * mRNA (11/03/09): TSH-R mRNA=1.7 ng/ug (11/30/09): TSH-R mRNA=1.8 ng/ug (01/18/10): no TSH-R mRNA assay postop (07/05/10): TSH-R mRNA <1.0 ng/ug (12/27/10): TSH-R mRNA <1.0 ng/ug * Ultrasound (01/18/10): no suspicious adenopathy along great vessels or in lateral neck on either side. No masses in thyroid bed. (12/27/10): no suspicious adenopathy along great vessels or in lateral neck on either side. No masses in thyroid bed. (01/24/12): no suspicious adenopathy along great vessels or in lateral neck on either side. No masses in thyroid bed. (08/11/13): no suspicious adenopathy along great vessels or in lateral neck on either side. No masses in thyroid bed. Thyroid nodule 10/20/2009 03/02/2010 Incisional hernia without mention of obstruction or gangrene 09/12/2005 08/12/2014 Symptomatic menopausal or female climacteric sta aniceto 04/07/2003 10/15/2017 Diabetes mellitus type 2 03/02/2003 014 Overview: *Type (): dx type 2 diabetes *Control hx Component Hemoglobin A1C Latest Ref Rng 4.0 - 6.0 % 01/17/2011 6.8 05/08/2011 7.2 07/24/2011 6.8 01/23/2012 6.7 07/27/2012 6.1 (H) 02/18/2013 6.4 (H) 08/08/2013 7.0 (H) 10/13/2013 7.1 (H) 02/17/14 7.3 * Eye hx (10/2008): no DM changes per Dr. Campoverde (07/2013): no DM changes per pt, exam Dr. Campoverde * Renal hx Component Albumin/Creat Ratio Latest Ref Rng 0 - 30 mg/g 04/03/2005 8 05/03/2006 8 03/26/2008 13 01/22/2009 18 02/16/2010 10 07/05/2010 9 05/08/2011 13 08/08/2013 9 * Vascular hx (11/12/13): no hx [place], stroke, Component Latest Ref Rng 02/18/2013 08/12/2013 10/13/2013 Triglyceride 30 - 149 mg/dL 114 123 126 Cholesterol 100 - 199 mg/dL 196 192 187 HDL Cholesterol >55 mg/dL 47 (L) 58 52 (L) VLDL Cholesterol 6 - 40 mg/dL 23 25 25 LDL Cholesterol 60 - 129 mg/dL 126 109 110 Fasting Time FASTING FASTING fasting TC:HDL Ratio 1.00 - 5.00 4.17 3.31 3.60 LDL:HDL Ratio 0.50 - 3.55 2.68 1.88 2.12 Non HDL Cholesterol 90 - 159 mg/dL 149 134 135 * Sleep (11/12/13): has obstructive sleep apnea, uses BiPAP since titration 04/07/13 * Exercise (11/12/13): not exercisnig * Medications (11/12/13): Victoza 1.8 mg daily, metformin 500 mg 2-1-1, * Physician (11/12/13): primary physician is Hayley Malone Morbid obesity 03/02/2003 07/15/2014 HYPERLIPIDEMIA NEC/NOS 5 documented as of this encounter (statuses as of 03/02/2022) [facility]11-[facility]2020 History of Past illness Narrative* Problem Noted Date Resolved Date Postoperative abdominal pain 07/12/202011/2020 Mild protein-calorie malnutrition 06/28/2020 06/29/2020 Infected prosthetic mesh of abdominal wall 06/2006/30/2020 Obesity, Class II, BMI 35-39.9 06/13/2019 1 10/17/2019 SBO (small bowel obstruction) 06/07/2019 Morbid obesity 03/10/2019 06/13/2019 Abnormal cardiovascular stress test 09/11/2017 10/15/2017 Primary osteoarthritis of right hip 11/27/2016 08/18/2020 Trochanteric bursitis of right hip 11/27/2016 08/18/2020 Dyspnea, unspecified 03/08/2016 08/16/2020 Angiomyolipoma of right kidney 01/11/2016 1 Essential hypertension with goal blood pressure less than 140/90 12/13/2015 04/12/2017 Obstructive sleep apnea syndrome 12/13/2015 04/12/2017 Superficial skin infection 08/31/201503/13 CKD stage 3 due to type 2 diabetes mellitus 01/1011/16/2018 Overview: Dr. Lilian Vance, nephrology BMI 45.0-49.9, adult 02/06/2015 12/01/2019 Venous insufficiency 02/06/2015 04/12/2017 DM type 2 causing CKD stage 3 09/21/2014 Overview: Dr Landen Best, endocrinology Degenerative arthritis of hip 07/01/2014 BMI 45.0-49.9, adult 03/31/2014 10/13/2014 Diabetes mellitus type II, uncontrolled 11/26/19 14 02/06/2015 BMI 40.0-44.9, adult 10/14/2013 03/31/2014 Chest pain 09/13/2012 03/13/2016 Overview: Substernal pressure lasting ~5hrs, partially relieved with SLN. Significant risk factors for CAD (HTN, HLD, DM). EKG does to show ST changes. Initial CE at [facility] are supposedly negative. Prior stress test in 2010 was normal. DM well controlled. Currently low likelihood for ACS. - EKG - trend Donald - stress test vs [facility] S/P total knee replacement using cement 07/02/20 12 07/15/2018 Degenerative arthritis of right knee 06/10/2012 08/12/2014 Allergic contact dermatitis due to metals 201108/16/2020 Sensorineural hearing loss, bilateral 07/19/2011 08/16/2020 Diverticulosis 08/23/2010 03/13/2016 Thyroid CA 02/21/2010 08/12/2014 Overview: * Surgery (12/15/09): total thyroidectomy, Dr. Jamey Ibrahim, [facility] * Path (10/29/09): FNA Atypical cells present in a background of cyst contents, suspicious for papillary thyroid carcinoma (12/15/09): single well-circumscribed nodule in the right inferior lobe, which measured 3.5 cm in greatest dimension. The nodule was extensively hemorrhagic and cystic with a rim of viable material which ranges in appearance from papillary architecture to follicular structures. There is no evidence of a higher grade component. There is no definitive lymphovascular space invasion identified. In some areas, the tumor cells have oncocytic cytoplasm, however, the cells do not meet criteria for tall-cell variant of papillary thyroid carcinoma. * SIDDIQI (02/17/10): Rx 131-Iodine 102.4 mCi, Thyrogen-stim * Scan (02/24/10): post-treatment scan (Thyrogen-stim) shows uptake in left neck, also in liver area. SPECT images show one focus of uptake in lateral segment of the left lobe of the liver, one in the medial segment of the left lobe of liver, and one in the posterior segment of the right lobe of the liver. (05/03/11): Thyrogen stim 123-Iodine scan negative * Thyroglobulin Component Thyroglobulin TG Antibody Screen Stimulation Latest Ref Rng 0.8 - 49.0 ng/mL <14.4 IU/mL 11/05/2009 75.7 (H) 1.0 01/18/2010 <0.2 (L) 1.1 02/16/2010 0.3 (L) 1.0 Thyrogen 07/05/2010 <0.2 (L) 1.3 12/27/2010 <0.2 (L) 1.3 05/08/2011 <0.2 (L) 1.1 Thyrogen 07/24/2011 <0.2 (L) 1.5 01/23/2012 <0.2 (L) 1.0 07/27/2012 <0.2 (L) <1.0 02/18/2013 <0.2 (L) <1.0 08/12/2013 <0.2 (L) <1.0 * mRNA (11/03/09): TSH-R mRNA=1.7 ng/ug (11/30/09): TSH-R mRNA=1.8 ng/ug (01/18/10): no TSH-R mRNA assay postop (07/05/10): TSH-R mRNA <1.0 ng/ug (12/27/10): TSH-R mRNA <1.0 ng/ug * Ultrasound (01/18/10): no suspicious adenopathy along great vessels or in lateral neck on either side. No masses in thyroid bed. (12/27/10): no suspicious adenopathy along great vessels or in lateral neck on either side. No masses in thyroid bed. (01/24/12): no suspicious adenopathy along great vessels or in lateral neck on either side. No masses in thyroid bed. (08/11/13): no suspicious adenopathy along great vessels or in lateral neck on either side. No masses in thyroid bed. Thyroid nodule 10/20/2009 03/02/2010 Incisional hernia without mention of obstruction or gangrene 09/12/2005 08/12/2014 Symptomatic menopausal or female climacteric sta aniceto 04/07/2003 10/15/2017 Diabetes mellitus type 2 03/02/2003 014 Overview: *Type (): dx type 2 diabetes *Control hx Component Hemoglobin A1C Latest Ref Rng 4.0 - 6.0 % 01/17/2011 6.8 05/08/2011 7.2 07/24/2011 6.8 01/23/2012 6.7 07/27/2012 6.1 (H) 02/18/2013 6.4 (H) 08/08/2013 7.0 (H) 10/13/2013 7.1 (H) 02/17/14 7.3 * Eye hx (10/2008): no DM changes per Dr. Campoverde (07/2013): no DM changes per pt, exam Dr. Campoverde * Renal hx Component Albumin/Creat Ratio Latest Ref Rng 0 - 30 mg/g 04/03/2005 8 05/03/2006 8 03/26/2008 13 01/22/2009 18 02/16/2010 10 07/05/2010 9 05/08/2011 13 08/08/2013 9 * Vascular hx (11/12/13): no hx [place], stroke, Component Latest Ref Rng 02/18/2013 08/12/2013 10/13/2013 Triglyceride 30 - 149 mg/dL 114 123 126 Cholesterol 100 - 199 mg/dL 196 192 187 HDL Cholesterol >55 mg/dL 47 (L) 58 52 (L) VLDL Cholesterol 6 - 40 mg/dL 23 25 25 LDL Cholesterol 60 - 129 mg/dL 126 109 110 Fasting Time FASTING FASTING fasting TC:HDL Ratio 1.00 - 5.00 4.17 3.31 3.60 LDL:HDL Ratio 0.50 - 3.55 2.68 1.88 2.12 Non HDL Cholesterol 90 - 159 mg/dL 149 134 135 * Sleep (11/12/13): has obstructive sleep apnea, uses BiPAP since titration 04/07/13 * Exercise (11/12/13): not exercisnig * Medications (11/12/13): Victoza 1.8 mg daily, metformin 500 mg 2-1-1, * Physician (11/12/13): primary physician is Hayley Malone Morbid obesity 03/02/2003 07/15/2014 HYPERLIPIDEMIA NEC/NOS 5 documented as of this encounter (statuses as of 03/03/2022) [facility] History of Past illness Narrative* Problem Noted Date Resolved Date Postoperative abdominal pain 07/12/202011/2020 Mild protein-calorie malnutrition 06/28/2020 06/29/2020 Infected prosthetic mesh of abdominal wall 06/2006/30/2020 Obesity, Class II, BMI 35-39.9 06/13/2019 1 10/17/2019 SBO (small bowel obstruction) 06/07/2019 Morbid obesity 03/10/2019 06/13/2019 Abnormal cardiovascular stress test 09/11/2017 10/15/2017 Primary osteoarthritis of right hip 11/27/2016 08/18/2020 Trochanteric bursitis of right hip 11/27/2016 08/18/2020 Dyspnea, unspecified 03/08/2016 08/16/2020 Angiomyolipoma of right kidney 01/11/2016 1 Essential hypertension with goal blood pressure less than 140/90 12/13/2015 04/12/2017 Obstructive sleep apnea syndrome 12/13/2015 04/12/2017 Superficial skin infection 08/31/201503/13 CKD stage 3 due to type 2 diabetes mellitus 01/1011/16/2018 Overview: Dr. Lilian Vance, nephrology BMI 45.0-49.9, adult 02/06/2015 12/01/2019 Venous insufficiency 02/06/2015 04/12/2017 DM type 2 causing CKD stage 3 09/21/2014 Overview: Dr Landen Best, endocrinology Degenerative arthritis of hip 07/01/2014 BMI 45.0-49.9, adult 03/31/2014 10/13/2014 Diabetes mellitus type II, uncontrolled 11/26/19 14 02/06/2015 BMI 40.0-44.9, adult 10/14/2013 03/31/2014 Chest pain 09/13/2012 03/13/2016 Overview: Substernal pressure lasting ~5hrs, partially relieved with SLN. Significant risk factors for CAD (HTN, HLD, DM). EKG does to show ST changes. Initial CE at [facility] are supposedly negative. Prior stress test in 2010 was normal. DM well controlled. Currently low likelihood for ACS. - EKG - trend [facility] - stress test vs [facility] S/P total knee replacement using cement 07/02/20 12 07/15/2018 Degenerative arthritis of right knee 06/10/2012 08/12/2014 Allergic contact dermatitis due to metals 201108/16/2020 Sensorineural hearing loss, bilateral 07/19/2011 08/16/2020 Diverticulosis 08/23/2010 03/13/2016 Thyroid CA 02/21/2010 08/12/2014 Overview: * Surgery (12/15/09): total thyroidectomy, Dr. Jamey Ibrahim, [facility] * Path (10/29/09): FNA Atypical cells present in a background of cyst contents, suspicious for papillary thyroid carcinoma (12/15/09): single well-circumscribed nodule in the right inferior lobe, which measured 3.5 cm in greatest dimension. The nodule was extensively hemorrhagic and cystic with a rim of viable material which ranges in appearance from papillary architecture to follicular structures. There is no evidence of a higher grade component. There is no definitive lymphovascular space invasion identified. In some areas, the tumor cells have oncocytic cytoplasm, however, the cells do not meet criteria for tall-cell variant of papillary thyroid carcinoma. * SIDDIQI (02/17/10): Rx 131-Iodine 102.4 mCi, Thyrogen-stim * Scan (02/24/10): post-treatment scan (Thyrogen-stim) shows uptake in left neck, also in liver area. SPECT images show one focus of uptake in lateral segment of the left lobe of the liver, one in the medial segment of the left lobe of liver, and one in the posterior segment of the right lobe of the liver. (05/03/11): Thyrogen stim 123-Iodine scan negative * Thyroglobulin Component Thyroglobulin TG Antibody Screen Stimulation Latest Ref Rng 0.8 - 49.0 ng/mL <14.4 IU/mL 11/05/2009 75.7 (H) 1.0 01/18/2010 <0.2 (L) 1.1 02/16/2010 0.3 (L) 1.0 Thyrogen 07/05/2010 <0.2 (L) 1.3 12/27/2010 <0.2 (L) 1.3 05/08/2011 <0.2 (L) 1.1 Thyrogen 07/24/2011 <0.2 (L) 1.5 01/23/2012 <0.2 (L) 1.0 07/27/2012 <0.2 (L) <1.0 02/18/2013 <0.2 (L) <1.0 08/12/2013 <0.2 (L) <1.0 * mRNA (11/03/09): TSH-R mRNA=1.7 ng/ug (11/30/09): TSH-R mRNA=1.8 ng/ug (01/18/10): no TSH-R mRNA assay postop (07/05/10): TSH-R mRNA <1.0 ng/ug (12/27/10): TSH-R mRNA <1.0 ng/ug * Ultrasound (01/18/10): no suspicious adenopathy along great vessels or in lateral neck on either side. No masses in thyroid bed. (12/27/10): no suspicious adenopathy along great vessels or in lateral neck on either side. No masses in thyroid bed. (01/24/12): no suspicious adenopathy along great vessels or in lateral neck on either side. No masses in thyroid bed. (08/11/13): no suspicious adenopathy along great vessels or in lateral neck on either side. No masses in thyroid bed. Thyroid nodule 10/20/2009 03/02/2010 Incisional hernia without mention of obstruction or gangrene 09/12/2005 08/12/2014 Symptomatic menopausal or female climacteric sta aniceto 04/07/2003 10/15/2017 Diabetes mellitus type 2 03/02/2003 014 Overview: *Type (): dx type 2 diabetes *Control hx Component Hemoglobin A1C Latest Ref Rng 4.0 - 6.0 % 01/17/2011 6.8 05/08/2011 7.2 07/24/2011 6.8 01/23/2012 6.7 07/27/2012 6.1 (H) 02/18/2013 6.4 (H) 08/08/2013 7.0 (H) 10/13/2013 7.1 (H) 02/17/14 7.3 * Eye hx (10/2008): no DM changes per Dr. Campoverde (07/2013): no DM changes per pt, exam Dr. Campoverde * Renal hx Component Albumin/Creat Ratio Latest Ref Rng 0 - 30 mg/g 04/03/2005 8 05/03/2006 8 03/26/2008 13 01/22/2009 18 02/16/2010 10 07/05/2010 9 05/08/2011 13 08/08/2013 9 * Vascular hx (11/12/13): no hx [place], stroke, Component Latest Ref Rng 02/18/2013 08/12/2013 10/13/2013 Triglyceride 30 - 149 mg/dL 114 123 126 Cholesterol 100 - 199 mg/dL 196 192 187 HDL Cholesterol >55 mg/dL 47 (L) 58 52 (L) VLDL Cholesterol 6 - 40 mg/dL 23 25 25 LDL Cholesterol 60 - 129 mg/dL 126 109 110 Fasting Time FASTING FASTING fasting TC:HDL Ratio 1.00 - 5.00 4.17 3.31 3.60 LDL:HDL Ratio 0.50 - 3.55 2.68 1.88 2.12 Non HDL Cholesterol 90 - 159 mg/dL 149 134 135 * Sleep (11/12/13): has obstructive sleep apnea, uses BiPAP since titration 04/07/13 * Exercise (11/12/13): not exercisnig * Medications (11/12/13): Victoza 1.8 mg daily, metformin 500 mg 2-1-1, * Physician (11/12/13): primary physician is Hayley Malone Morbid obesity 03/02/2003 07/15/2014 HYPERLIPIDEMIA NEC/NOS 5 documented as of this encounter (statuses as of 03/08/2022) [facility] History of Past illness Narrative* Problem Noted Date Resolved Date Postoperative abdominal pain 07/12/202011/2020 Mild protein-calorie malnutrition 06/28/2020 06/29/2020 Infected prosthetic mesh of abdominal wall 06/2006/30/2020 Obesity, Class II, BMI 35-39.9 06/13/2019 1 10/17/2019 SBO (small bowel obstruction) 06/07/2019 Morbid obesity 03/10/2019 06/13/2019 Abnormal cardiovascular stress test 09/11/2017 10/15/2017 Primary osteoarthritis of right hip 11/27/2016 08/18/2020 Trochanteric bursitis of right hip 11/27/2016 08/18/2020 Dyspnea, unspecified 03/08/2016 08/16/2020 Angiomyolipoma of right kidney 01/11/2016 1 Essential hypertension with goal blood pressure less than 140/90 12/13/2015 04/12/2017 Obstructive sleep apnea syndrome 12/13/2015 04/12/2017 Superficial skin infection 08/31/201503/13 CKD stage 3 due to type 2 diabetes mellitus 01/1011/16/2018 Overview: Dr. Lilian Vance, nephrology BMI 45.0-49.9, adult 02/06/2015 12/01/2019 Venous insufficiency 02/06/2015 04/12/2017 DM type 2 causing CKD stage 3 09/21/2014 Overview: Dr Landen Best, endocrinology Degenerative arthritis of hip 07/01/2014 BMI 45.0-49.9, adult 03/31/2014 10/13/2014 Diabetes mellitus type II, uncontrolled 11/26/19 14 02/06/2015 BMI 40.0-44.9, adult 10/14/2013 03/31/2014 Chest pain 09/13/2012 03/13/2016 Overview: Substernal pressure lasting ~5hrs, partially relieved with SLN. Significant risk factors for CAD (HTN, HLD, DM). EKG does to show ST changes. Initial CE at [facility] are supposedly negative. Prior stress test in 2010 was normal. DM well controlled. Currently low likelihood for ACS. - EKG - trend Donald - stress test vs [facility] S/P total knee replacement using cement 07/02/20 12 07/15/2018 Degenerative arthritis of right knee 06/10/2012 08/12/2014 Allergic contact dermatitis due to metals 201108/16/2020 Sensorineural hearing loss, bilateral 07/19/2011 08/16/2020 Diverticulosis 08/23/2010 03/13/2016 Thyroid CA 02/21/2010 08/12/2014 Overview: * Surgery (12/15/09): total thyroidectomy, Dr. Jamey Ibrahim, [facility] * Path (10/29/09): FNA Atypical cells present in a background of cyst contents, suspicious for papillary thyroid carcinoma (12/15/09): single well-circumscribed nodule in the right inferior lobe, which measured 3.5 cm in greatest dimension. The nodule was extensively hemorrhagic and cystic with a rim of viable material which ranges in appearance from papillary architecture to follicular structures. There is no evidence of a higher grade component. There is no definitive lymphovascular space invasion identified. In some areas, the tumor cells have oncocytic cytoplasm, however, the cells do not meet criteria for tall-cell variant of papillary thyroid carcinoma. * SIDDIQI (02/17/10): Rx 131-Iodine 102.4 mCi, Thyrogen-stim * Scan (02/24/10): post-treatment scan (Thyrogen-stim) shows uptake in left neck, also in liver area. SPECT images show one focus of uptake in lateral segment of the left lobe of the liver, one in the medial segment of the left lobe of liver, and one in the posterior segment of the right lobe of the liver. (05/03/11): Thyrogen stim 123-Iodine scan negative * Thyroglobulin Component Thyroglobulin TG Antibody Screen Stimulation Latest Ref Rng 0.8 - 49.0 ng/mL <14.4 IU/mL 11/05/2009 75.7 (H) 1.0 01/18/2010 <0.2 (L) 1.1 02/16/2010 0.3 (L) 1.0 Thyrogen 07/05/2010 <0.2 (L) 1.3 12/27/2010 <0.2 (L) 1.3 05/08/2011 <0.2 (L) 1.1 Thyrogen 07/24/2011 <0.2 (L) 1.5 01/23/2012 <0.2 (L) 1.0 07/27/2012 <0.2 (L) <1.0 02/18/2013 <0.2 (L) <1.0 08/12/2013 <0.2 (L) <1.0 * mRNA (11/03/09): TSH-R mRNA=1.7 ng/ug (11/30/09): TSH-R mRNA=1.8 ng/ug (01/18/10): no TSH-R mRNA assay postop (07/05/10): TSH-R mRNA <1.0 ng/ug (12/27/10): TSH-R mRNA <1.0 ng/ug * Ultrasound (01/18/10): no suspicious adenopathy along great vessels or in lateral neck on either side. No masses in thyroid bed. (12/27/10): no suspicious adenopathy along great vessels or in lateral neck on either side. No masses in thyroid bed. (01/24/12): no suspicious adenopathy along great vessels or in lateral neck on either side. No masses in thyroid bed. (08/11/13): no suspicious adenopathy along great vessels or in lateral neck on either side. No masses in thyroid bed. Thyroid nodule 10/20/2009 03/02/2010 Incisional hernia without mention of obstruction or gangrene 09/12/2005 08/12/2014 Symptomatic menopausal or female climacteric sta aniceto 04/07/2003 10/15/2017 Diabetes mellitus type 2 03/02/2003 014 Overview: *Type (): dx type 2 diabetes *Control hx Component Hemoglobin A1C Latest Ref Rng 4.0 - 6.0 % 01/17/2011 6.8 05/08/2011 7.2 07/24/2011 6.8 01/23/2012 6.7 07/27/2012 6.1 (H) 02/18/2013 6.4 (H) 08/08/2013 7.0 (H) 10/13/2013 7.1 (H) 02/17/14 7.3 * Eye hx (10/2008): no DM changes per Dr. Campoverde (07/2013): no DM changes per pt, exam Dr. Campoverde * Renal hx Component Albumin/Creat Ratio Latest Ref Rng 0 - 30 mg/g 04/03/2005 8 05/03/2006 8 03/26/2008 13 01/22/2009 18 02/16/2010 10 07/05/2010 9 05/08/2011 13 08/08/2013 9 * Vascular hx (11/12/13): no hx [place], stroke, Component Latest Ref Rng 02/18/2013 08/12/2013 10/13/2013 Triglyceride 30 - 149 mg/dL 114 123 126 Cholesterol 100 - 199 mg/dL 196 192 187 HDL Cholesterol >55 mg/dL 47 (L) 58 52 (L) VLDL Cholesterol 6 - 40 mg/dL 23 25 25 LDL Cholesterol 60 - 129 mg/dL 126 109 110 Fasting Time FASTING FASTING fasting TC:HDL Ratio 1.00 - 5.00 4.17 3.31 3.60 LDL:HDL Ratio 0.50 - 3.55 2.68 1.88 2.12 Non HDL Cholesterol 90 - 159 mg/dL 149 134 135 * Sleep (11/12/13): has obstructive sleep apnea, uses BiPAP since titration 04/07/13 * Exercise (11/12/13): not exercisnig * Medications (11/12/13): Victoza 1.8 mg daily, metformin 500 mg 2-1-1, * Physician (11/12/13): primary physician is Hayley Malone Morbid obesity 03/02/2003 07/15/2014 HYPERLIPIDEMIA NEC/NOS 5 documented as of this encounter (statuses as of 03/10/2022) [facility]2020 History of Past illness Narrative* Problem Noted Date Resolved Date Postoperative abdominal pain 07/12/202011/2020 Mild protein-calorie malnutrition 06/28/2020 06/29/2020 Infected prosthetic mesh of abdominal wall 06/2006/30/2020 Obesity, Class II, BMI 35-39.9 06/13/2019 1 10/17/2019 SBO (small bowel obstruction) 06/07/2019 Morbid obesity 03/10/2019 06/13/2019 Abnormal cardiovascular stress test 09/11/2017 10/15/2017 Primary osteoarthritis of right hip 11/27/2016 08/18/2020 Trochanteric bursitis of right hip 11/27/2016 08/18/2020 Dyspnea, unspecified 03/08/2016 08/16/2020 Angiomyolipoma of right kidney 01/11/2016 1 Essential hypertension with goal blood pressure less than 140/90 12/13/2015 04/12/2017 Obstructive sleep apnea syndrome 12/13/2015 04/12/2017 Superficial skin infection 08/31/201503/13 CKD stage 3 due to type 2 diabetes mellitus 01/1011/16/2018 Overview: Dr. Lilian Vance, nephrology BMI 45.0-49.9, adult 02/06/2015 12/01/2019 Venous insufficiency 02/06/2015 04/12/2017 DM type 2 causing CKD stage 3 09/21/2014 Overview: Dr Landen Best, endocrinology Degenerative arthritis of hip 07/01/2014 BMI 45.0-49.9, adult 03/31/2014 10/13/2014 Diabetes mellitus type II, uncontrolled 11/26/19 14 02/06/2015 BMI 40.0-44.9, adult 10/14/2013 03/31/2014 Chest pain 09/13/2012 03/13/2016 Overview: Substernal pressure lasting ~5hrs, partially relieved with SLN. Significant risk factors for CAD (HTN, HLD, DM). EKG does to show ST changes. Initial CE at [facility] are supposedly negative. Prior stress test in 2010 was normal. DM well controlled. Currently low likelihood for ACS. - EKG - trend Donald - stress test vs [facility] S/P total knee replacement using cement 07/02/20 12 07/15/2018 Degenerative arthritis of right knee 06/10/2012 08/12/2014 Allergic contact dermatitis due to metals 201108/16/2020 Sensorineural hearing loss, bilateral 07/19/2011 08/16/2020 Diverticulosis 08/23/2010 03/13/2016 Thyroid CA 02/21/2010 08/12/2014 Overview: * Surgery (12/15/09): total thyroidectomy, Dr. Jamey Ibrahim, [facility] * Path (10/29/09): FNA Atypical cells present in a background of cyst contents, suspicious for papillary thyroid carcinoma (12/15/09): single well-circumscribed nodule in the right inferior lobe, which measured 3.5 cm in greatest dimension. The nodule was extensively hemorrhagic and cystic with a rim of viable material which ranges in appearance from papillary architecture to follicular structures. There is no evidence of a higher grade component. There is no definitive lymphovascular space invasion identified. In some areas, the tumor cells have oncocytic cytoplasm, however, the cells do not meet criteria for tall-cell variant of papillary thyroid carcinoma. * SIDDIQI (02/17/10): Rx 131-Iodine 102.4 mCi, Thyrogen-stim * Scan (02/24/10): post-treatment scan (Thyrogen-stim) shows uptake in left neck, also in liver area. SPECT images show one focus of uptake in lateral segment of the left lobe of the liver, one in the medial segment of the left lobe of liver, and one in the posterior segment of the right lobe of the liver. (05/03/11): Thyrogen stim 123-Iodine scan negative * Thyroglobulin Component Thyroglobulin TG Antibody Screen Stimulation Latest Ref Rng 0.8 - 49.0 ng/mL <14.4 IU/mL 11/05/2009 75.7 (H) 1.0 01/18/2010 <0.2 (L) 1.1 02/16/2010 0.3 (L) 1.0 Thyrogen 07/05/2010 <0.2 (L) 1.3 12/27/2010 <0.2 (L) 1.3 05/08/2011 <0.2 (L) 1.1 Thyrogen 07/24/2011 <0.2 (L) 1.5 01/23/2012 <0.2 (L) 1.0 07/27/2012 <0.2 (L) <1.0 02/18/2013 <0.2 (L) <1.0 08/12/2013 <0.2 (L) <1.0 * mRNA (11/03/09): TSH-R mRNA=1.7 ng/ug (11/30/09): TSH-R mRNA=1.8 ng/ug (01/18/10): no TSH-R mRNA assay postop (07/05/10): TSH-R mRNA <1.0 ng/ug (12/27/10): TSH-R mRNA <1.0 ng/ug * Ultrasound (01/18/10): no suspicious adenopathy along great vessels or in lateral neck on either side. No masses in thyroid bed. (12/27/10): no suspicious adenopathy along great vessels or in lateral neck on either side. No masses in thyroid bed. (01/24/12): no suspicious adenopathy along great vessels or in lateral neck on either side. No masses in thyroid bed. (08/11/13): no suspicious adenopathy along great vessels or in lateral neck on either side. No masses in thyroid bed. Thyroid nodule 10/20/2009 03/02/2010 Incisional hernia without mention of obstruction or gangrene 09/12/2005 08/12/2014 Symptomatic menopausal or female climacteric sta aniceto 04/07/2003 10/15/2017 Diabetes mellitus type 2 03/02/2003 014 Overview: *Type (): dx type 2 diabetes *Control hx Component Hemoglobin A1C Latest Ref Rng 4.0 - 6.0 % 01/17/2011 6.8 05/08/2011 7.2 07/24/2011 6.8 01/23/2012 6.7 07/27/2012 6.1 (H) 02/18/2013 6.4 (H) 08/08/2013 7.0 (H) 10/13/2013 7.1 (H) 02/17/14 7.3 * Eye hx (10/2008): no DM changes per Dr. Campoverde (07/2013): no DM changes per pt, exam Dr. Campoverde * Renal hx Component Albumin/Creat Ratio Latest Ref Rng 0 - 30 mg/g 04/03/2005 8 05/03/2006 8 03/26/2008 13 01/22/2009 18 02/16/2010 10 07/05/2010 9 05/08/2011 13 08/08/2013 9 * Vascular hx (11/12/13): no hx [place], stroke, Component Latest Ref Rng 02/18/2013 08/12/2013 10/13/2013 Triglyceride 30 - 149 mg/dL 114 123 126 Cholesterol 100 - 199 mg/dL 196 192 187 HDL Cholesterol >55 mg/dL 47 (L) 58 52 (L) VLDL Cholesterol 6 - 40 mg/dL 23 25 25 LDL Cholesterol 60 - 129 mg/dL 126 109 110 Fasting Time FASTING FASTING fasting TC:HDL Ratio 1.00 - 5.00 4.17 3.31 3.60 LDL:HDL Ratio 0.50 - 3.55 2.68 1.88 2.12 Non HDL Cholesterol 90 - 159 mg/dL 149 134 135 * Sleep (11/12/13): has obstructive sleep apnea, uses BiPAP since titration 04/07/13 * Exercise (11/12/13): not exercisnig * Medications (11/12/13): Victoza 1.8 mg daily, metformin 500 mg 2-1-1, * Physician (11/12/13): primary physician is Hayley Malone Morbid obesity 03/02/2003 07/15/2014 HYPERLIPIDEMIA NEC/NOS 5 documented as of this encounter (statuses as of 03/19/2022) [facility]11-[facility]2020 History of Past illness Narrative* Problem Noted Date Resolved Date Postoperative abdominal pain 07/12/202011/2020 Mild protein-calorie malnutrition 06/28/2020 06/29/2020 Infected prosthetic mesh of abdominal wall 06/2006/30/2020 Obesity, Class II, BMI 35-39.9 06/13/2019 1 10/17/2019 SBO (small bowel obstruction) 06/07/2019 Morbid obesity 03/10/2019 06/13/2019 Abnormal cardiovascular stress test 09/11/2017 10/15/2017 Primary osteoarthritis of right hip 11/27/2016 08/18/2020 Trochanteric bursitis of right hip 11/27/2016 08/18/2020 Dyspnea, unspecified 03/08/2016 08/16/2020 Angiomyolipoma of right kidney 01/11/2016 1 Essential hypertension with goal blood pressure less than 140/90 12/13/2015 04/12/2017 Obstructive sleep apnea syndrome 12/13/2015 04/12/2017 Superficial skin infection 08/31/201503/13 CKD stage 3 due to type 2 diabetes mellitus 01/1011/16/2018 Overview: Dr. Lilian Vanec, nephrology BMI 45.0-49.9, adult 02/06/2015 12/01/2019 Venous insufficiency 02/06/2015 04/12/2017 DM type 2 causing CKD stage 3 09/21/2014 Overview: Dr Landen Best, endocrinology Degenerative arthritis of hip 07/01/2014 BMI 45.0-49.9, adult 03/31/2014 10/13/2014 Diabetes mellitus type II, uncontrolled 11/26/19 14 02/06/2015 BMI 40.0-44.9, adult 10/14/2013 03/31/2014 Chest pain 09/13/2012 03/13/2016 Overview: Substernal pressure lasting ~5hrs, partially relieved with SLN. Significant risk factors for CAD (HTN, HLD, DM). EKG does to show ST changes. Initial CE at [facility] are supposedly negative. Prior stress test in 2010 was normal. DM well controlled. Currently low likelihood for ACS. - EKG - trend Donald - stress test vs [facility] S/P total knee replacement using cement 07/02/20 12 07/15/2018 Degenerative arthritis of right knee 06/10/2012 08/12/2014 Allergic contact dermatitis due to metals 201108/16/2020 Sensorineural hearing loss, bilateral 07/19/2011 08/16/2020 Diverticulosis 08/23/2010 03/13/2016 Thyroid CA 02/21/2010 08/12/2014 Overview: * Surgery (12/15/09): total thyroidectomy, Dr. Jamey Ibrahim, [facility] * Path (10/29/09): FNA Atypical cells present in a background of cyst contents, suspicious for papillary thyroid carcinoma (12/15/09): single well-circumscribed nodule in the right inferior lobe, which measured 3.5 cm in greatest dimension. The nodule was extensively hemorrhagic and cystic with a rim of viable material which ranges in appearance from papillary architecture to follicular structures. There is no evidence of a higher grade component. There is no definitive lymphovascular space invasion identified. In some areas, the tumor cells have oncocytic cytoplasm, however, the cells do not meet criteria for tall-cell variant of papillary thyroid carcinoma. * SIDDIQI (02/17/10): Rx 131-Iodine 102.4 mCi, Thyrogen-stim * Scan (02/24/10): post-treatment scan (Thyrogen-stim) shows uptake in left neck, also in liver area. SPECT images show one focus of uptake in lateral segment of the left lobe of the liver, one in the medial segment of the left lobe of liver, and one in the posterior segment of the right lobe of the liver. (05/03/11): Thyrogen stim 123-Iodine scan negative * Thyroglobulin Component Thyroglobulin TG Antibody Screen Stimulation Latest Ref Rng 0.8 - 49.0 ng/mL <14.4 IU/mL 11/05/2009 75.7 (H) 1.0 01/18/2010 <0.2 (L) 1.1 02/16/2010 0.3 (L) 1.0 Thyrogen 07/05/2010 <0.2 (L) 1.3 12/27/2010 <0.2 (L) 1.3 05/08/2011 <0.2 (L) 1.1 Thyrogen 07/24/2011 <0.2 (L) 1.5 01/23/2012 <0.2 (L) 1.0 07/27/2012 <0.2 (L) <1.0 02/18/2013 <0.2 (L) <1.0 08/12/2013 <0.2 (L) <1.0 * mRNA (11/03/09): TSH-R mRNA=1.7 ng/ug (11/30/09): TSH-R mRNA=1.8 ng/ug (01/18/10): no TSH-R mRNA assay postop (07/05/10): TSH-R mRNA <1.0 ng/ug (12/27/10): TSH-R mRNA <1.0 ng/ug * Ultrasound (01/18/10): no suspicious adenopathy along great vessels or in lateral neck on either side. No masses in thyroid bed. (12/27/10): no suspicious adenopathy along great vessels or in lateral neck on either side. No masses in thyroid bed. (01/24/12): no suspicious adenopathy along great vessels or in lateral neck on either side. No masses in thyroid bed. (08/11/13): no suspicious adenopathy along great vessels or in lateral neck on either side. No masses in thyroid bed. Thyroid nodule 10/20/2009 03/02/2010 Incisional hernia without mention of obstruction or gangrene 09/12/2005 08/12/2014 Symptomatic menopausal or female climacteric sta aniceto 04/07/2003 10/15/2017 Diabetes mellitus type 2 03/02/2003 014 Overview: *Type (): dx type 2 diabetes *Control hx Component Hemoglobin A1C Latest Ref Rng 4.0 - 6.0 % 01/17/2011 6.8 05/08/2011 7.2 07/24/2011 6.8 01/23/2012 6.7 07/27/2012 6.1 (H) 02/18/2013 6.4 (H) 08/08/2013 7.0 (H) 10/13/2013 7.1 (H) 02/17/14 7.3 * Eye hx (10/2008): no DM changes per Dr. Campoverde (07/2013): no DM changes per pt, exam Dr. Campoverde * Renal hx Component Albumin/Creat Ratio Latest Ref Rng 0 - 30 mg/g 04/03/2005 8 05/03/2006 8 03/26/2008 13 01/22/2009 18 02/16/2010 10 07/05/2010 9 05/08/2011 13 08/08/2013 9 * Vascular hx (11/12/13): no hx [place], stroke, Component Latest Ref Rng 02/18/2013 08/12/2013 10/13/2013 Triglyceride 30 - 149 mg/dL 114 123 126 Cholesterol 100 - 199 mg/dL 196 192 187 HDL Cholesterol >55 mg/dL 47 (L) 58 52 (L) VLDL Cholesterol 6 - 40 mg/dL 23 25 25 LDL Cholesterol 60 - 129 mg/dL 126 109 110 Fasting Time FASTING FASTING fasting TC:HDL Ratio 1.00 - 5.00 4.17 3.31 3.60 LDL:HDL Ratio 0.50 - 3.55 2.68 1.88 2.12 Non HDL Cholesterol 90 - 159 mg/dL 149 134 135 * Sleep (11/12/13): has obstructive sleep apnea, uses BiPAP since titration 04/07/13 * Exercise (11/12/13): not exercisnig * Medications (11/12/13): Victoza 1.8 mg daily, metformin 500 mg 2-1-1, * Physician (11/12/13): primary physician is Hayley Malone Morbid obesity 03/02/2003 07/15/2014 HYPERLIPIDEMIA NEC/NOS 5 documented as of this encounter (statuses as of 03/23/2022) [facility] History of Past illness Narrative* Problem Noted Date Resolved Date Postoperative abdominal pain 07/12/202011/2020 Mild protein-calorie malnutrition 06/28/2020 06/29/2020 Infected prosthetic mesh of abdominal wall 06/2006/30/2020 Obesity, Class II, BMI 35-39.9 06/13/2019 1 10/17/2019 SBO (small bowel obstruction) 06/07/2019 Morbid obesity 03/10/2019 06/13/2019 Abnormal cardiovascular stress test 09/11/2017 10/15/2017 Primary osteoarthritis of right hip 11/27/2016 08/18/2020 Trochanteric bursitis of right hip 11/27/2016 08/18/2020 Dyspnea, unspecified 03/08/2016 08/16/2020 Angiomyolipoma of right kidney 01/11/2016 1 Essential hypertension with goal blood pressure less than 140/90 12/13/2015 04/12/2017 Obstructive sleep apnea syndrome 12/13/2015 04/12/2017 Superficial skin infection 08/31/201503/13 CKD stage 3 due to type 2 diabetes mellitus 01/1011/16/2018 Overview: Dr. Lilian Vance, nephrology BMI 45.0-49.9, adult 02/06/2015 12/01/2019 Venous insufficiency 02/06/2015 04/12/2017 DM type 2 causing CKD stage 3 09/21/2014 Overview: Dr Landen Best, endocrinology Degenerative arthritis of hip 07/01/2014 BMI 45.0-49.9, adult 03/31/2014 10/13/2014 Diabetes mellitus type II, uncontrolled 11/26/19 14 02/06/2015 BMI 40.0-44.9, adult 10/14/2013 03/31/2014 Chest pain 09/13/2012 03/13/2016 Overview: Substernal pressure lasting ~5hrs, partially relieved with SLN. Significant risk factors for CAD (HTN, HLD, DM). EKG does to show ST changes. Initial CE at [facility] are supposedly negative. Prior stress test in 2010 was normal. DM well controlled. Currently low likelihood for ACS. - EKG - trend Donald - stress test vs [facility] S/P total knee replacement using cement 07/02/20 12 07/15/2018 Degenerative arthritis of right knee 06/10/2012 08/12/2014 Allergic contact dermatitis due to metals 201108/16/2020 Sensorineural hearing loss, bilateral 07/19/2011 08/16/2020 Diverticulosis 08/23/2010 03/13/2016 Thyroid CA 02/21/2010 08/12/2014 Overview: * Surgery (12/15/09): total thyroidectomy, Dr. Jamey Ibrahim, [facility] * Path (10/29/09): FNA Atypical cells present in a background of cyst contents, suspicious for papillary thyroid carcinoma (12/15/09): single well-circumscribed nodule in the right inferior lobe, which measured 3.5 cm in greatest dimension. The nodule was extensively hemorrhagic and cystic with a rim of viable material which ranges in appearance from papillary architecture to follicular structures. There is no evidence of a higher grade component. There is no definitive lymphovascular space invasion identified. In some areas, the tumor cells have oncocytic cytoplasm, however, the cells do not meet criteria for tall-cell variant of papillary thyroid carcinoma. * SIDDIQI (02/17/10): Rx 131-Iodine 102.4 mCi, Thyrogen-stim * Scan (02/24/10): post-treatment scan (Thyrogen-stim) shows uptake in left neck, also in liver area. SPECT images show one focus of uptake in lateral segment of the left lobe of the liver, one in the medial segment of the left lobe of liver, and one in the posterior segment of the right lobe of the liver. (05/03/11): Thyrogen stim 123-Iodine scan negative * Thyroglobulin Component Thyroglobulin TG Antibody Screen Stimulation Latest Ref Rng 0.8 - 49.0 ng/mL <14.4 IU/mL 11/05/2009 75.7 (H) 1.0 01/18/2010 <0.2 (L) 1.1 02/16/2010 0.3 (L) 1.0 Thyrogen 07/05/2010 <0.2 (L) 1.3 12/27/2010 <0.2 (L) 1.3 05/08/2011 <0.2 (L) 1.1 Thyrogen 07/24/2011 <0.2 (L) 1.5 01/23/2012 <0.2 (L) 1.0 07/27/2012 <0.2 (L) <1.0 02/18/2013 <0.2 (L) <1.0 08/12/2013 <0.2 (L) <1.0 * mRNA (11/03/09): TSH-R mRNA=1.7 ng/ug (11/30/09): TSH-R mRNA=1.8 ng/ug (01/18/10): no TSH-R mRNA assay postop (07/05/10): TSH-R mRNA <1.0 ng/ug (12/27/10): TSH-R mRNA <1.0 ng/ug * Ultrasound (01/18/10): no suspicious adenopathy along great vessels or in lateral neck on either side. No masses in thyroid bed. (12/27/10): no suspicious adenopathy along great vessels or in lateral neck on either side. No masses in thyroid bed. (01/24/12): no suspicious adenopathy along great vessels or in lateral neck on either side. No masses in thyroid bed. (08/11/13): no suspicious adenopathy along great vessels or in lateral neck on either side. No masses in thyroid bed. Thyroid nodule 10/20/2009 03/02/2010 Incisional hernia without mention of obstruction or gangrene 09/12/2005 08/12/2014 Symptomatic menopausal or female climacteric sta aniceto 04/07/2003 10/15/2017 Diabetes mellitus type 2 03/02/2003 014 Overview: *Type (): dx type 2 diabetes *Control hx Component Hemoglobin A1C Latest Ref Rng 4.0 - 6.0 % 01/17/2011 6.8 05/08/2011 7.2 07/24/2011 6.8 01/23/2012 6.7 07/27/2012 6.1 (H) 02/18/2013 6.4 (H) 08/08/2013 7.0 (H) 10/13/2013 7.1 (H) 02/17/14 7.3 * Eye hx (10/2008): no DM changes per Dr. Campoverde (07/2013): no DM changes per pt, exam Dr. Campoverde * Renal hx Component Albumin/Creat Ratio Latest Ref Rng 0 - 30 mg/g 04/03/2005 8 05/03/2006 8 03/26/2008 13 01/22/2009 18 02/16/2010 10 07/05/2010 9 05/08/2011 13 08/08/2013 9 * Vascular hx (11/12/13): no hx [place], stroke, Component Latest Ref Rng 02/18/2013 08/12/2013 10/13/2013 Triglyceride 30 - 149 mg/dL 114 123 126 Cholesterol 100 - 199 mg/dL 196 192 187 HDL Cholesterol >55 mg/dL 47 (L) 58 52 (L) VLDL Cholesterol 6 - 40 mg/dL 23 25 25 LDL Cholesterol 60 - 129 mg/dL 126 109 110 Fasting Time FASTING FASTING fasting TC:HDL Ratio 1.00 - 5.00 4.17 3.31 3.60 LDL:HDL Ratio 0.50 - 3.55 2.68 1.88 2.12 Non HDL Cholesterol 90 - 159 mg/dL 149 134 135 * Sleep (11/12/13): has obstructive sleep apnea, uses BiPAP since titration 04/07/13 * Exercise (11/12/13): not exercisnig * Medications (11/12/13): Victoza 1.8 mg daily, metformin 500 mg 2-1-1, * Physician (11/12/13): primary physician is Hayley Malone Morbid obesity 03/02/2003 07/15/2014 HYPERLIPIDEMIA NEC/NOS 5 documented as of this encounter (statuses as of 03/28/2022) [facility] History of Past illness Narrative* Problem Noted Date Resolved Date Postoperative abdominal pain 07/12/202011/2020 Mild protein-calorie malnutrition 06/28/2020 06/29/2020 Infected prosthetic mesh of abdominal wall 06/2006/30/2020 Obesity, Class II, BMI 35-39.9 06/13/2019 1 10/17/2019 SBO (small bowel obstruction) 06/07/2019 Morbid obesity 03/10/2019 06/13/2019 Abnormal cardiovascular stress test 09/11/2017 10/15/2017 Primary osteoarthritis of right hip 11/27/2016 08/18/2020 Trochanteric bursitis of right hip 11/27/2016 08/18/2020 Dyspnea, unspecified 03/08/2016 08/16/2020 Angiomyolipoma of right kidney 01/11/2016 1 Essential hypertension with goal blood pressure less than 140/90 12/13/2015 04/12/2017 Obstructive sleep apnea syndrome 12/13/2015 04/12/2017 Superficial skin infection 08/31/201503/13 CKD stage 3 due to type 2 diabetes mellitus 01/1011/16/2018 Overview: Dr. Lilian Vance, nephrology BMI 45.0-49.9, adult 02/06/2015 12/01/2019 Venous insufficiency 02/06/2015 04/12/2017 DM type 2 causing CKD stage 3 09/21/2014 Overview: Dr Landen Best, endocrinology Degenerative arthritis of hip 07/01/2014 BMI 45.0-49.9, adult 03/31/2014 10/13/2014 Diabetes mellitus type II, uncontrolled 11/26/19 14 02/06/2015 BMI 40.0-44.9, adult 10/14/2013 03/31/2014 Chest pain 09/13/2012 03/13/2016 Overview: Substernal pressure lasting ~5hrs, partially relieved with SLN. Significant risk factors for CAD (HTN, HLD, DM). EKG does to show ST changes. Initial CE at [facility] are supposedly negative. Prior stress test in 2010 was normal. DM well controlled. Currently low likelihood for ACS. - EKG - trend Donald - stress test vs [facility] S/P total knee replacement using cement 07/02/20 12 07/15/2018 Degenerative arthritis of right knee 06/10/2012 08/12/2014 Allergic contact dermatitis due to metals 201108/16/2020 Sensorineural hearing loss, bilateral 07/19/2011 08/16/2020 Diverticulosis 08/23/2010 03/13/2016 Thyroid CA 02/21/2010 08/12/2014 Overview: * Surgery (12/15/09): total thyroidectomy, Dr. Jamey Ibrahim, [facility] * Path (10/29/09): FNA Atypical cells present in a background of cyst contents, suspicious for papillary thyroid carcinoma (12/15/09): single well-circumscribed nodule in the right inferior lobe, which measured 3.5 cm in greatest dimension. The nodule was extensively hemorrhagic and cystic with a rim of viable material which ranges in appearance from papillary architecture to follicular structures. There is no evidence of a higher grade component. There is no definitive lymphovascular space invasion identified. In some areas, the tumor cells have oncocytic cytoplasm, however, the cells do not meet criteria for tall-cell variant of papillary thyroid carcinoma. * SIDDIQI (02/17/10): Rx 131-Iodine 102.4 mCi, Thyrogen-stim * Scan (02/24/10): post-treatment scan (Thyrogen-stim) shows uptake in left neck, also in liver area. SPECT images show one focus of uptake in lateral segment of the left lobe of the liver, one in the medial segment of the left lobe of liver, and one in the posterior segment of the right lobe of the liver. (05/03/11): Thyrogen stim 123-Iodine scan negative * Thyroglobulin Component Thyroglobulin TG Antibody Screen Stimulation Latest Ref Rng 0.8 - 49.0 ng/mL <14.4 IU/mL 11/05/2009 75.7 (H) 1.0 01/18/2010 <0.2 (L) 1.1 02/16/2010 0.3 (L) 1.0 Thyrogen 07/05/2010 <0.2 (L) 1.3 12/27/2010 <0.2 (L) 1.3 05/08/2011 <0.2 (L) 1.1 Thyrogen 07/24/2011 <0.2 (L) 1.5 01/23/2012 <0.2 (L) 1.0 07/27/2012 <0.2 (L) <1.0 02/18/2013 <0.2 (L) <1.0 08/12/2013 <0.2 (L) <1.0 * mRNA (11/03/09): TSH-R mRNA=1.7 ng/ug (11/30/09): TSH-R mRNA=1.8 ng/ug (01/18/10): no TSH-R mRNA assay postop (07/05/10): TSH-R mRNA <1.0 ng/ug (12/27/10): TSH-R mRNA <1.0 ng/ug * Ultrasound (01/18/10): no suspicious adenopathy along great vessels or in lateral neck on either side. No masses in thyroid bed. (12/27/10): no suspicious adenopathy along great vessels or in lateral neck on either side. No masses in thyroid bed. (01/24/12): no suspicious adenopathy along great vessels or in lateral neck on either side. No masses in thyroid bed. (08/11/13): no suspicious adenopathy along great vessels or in lateral neck on either side. No masses in thyroid bed. Thyroid nodule 10/20/2009 03/02/2010 Incisional hernia without mention of obstruction or gangrene 09/12/2005 08/12/2014 Symptomatic menopausal or female climacteric sta aniceto 04/07/2003 10/15/2017 Diabetes mellitus type 2 03/02/2003 014 Overview: *Type (): dx type 2 diabetes *Control hx Component Hemoglobin A1C Latest Ref Rng 4.0 - 6.0 % 01/17/2011 6.8 05/08/2011 7.2 07/24/2011 6.8 01/23/2012 6.7 07/27/2012 6.1 (H) 02/18/2013 6.4 (H) 08/08/2013 7.0 (H) 10/13/2013 7.1 (H) 02/17/14 7.3 * Eye hx (10/2008): no DM changes per Dr. Campoverde (07/2013): no DM changes per pt, exam Dr. Campoverde * Renal hx Component Albumin/Creat Ratio Latest Ref Rng 0 - 30 mg/g 04/03/2005 8 05/03/2006 8 03/26/2008 13 01/22/2009 18 02/16/2010 10 07/05/2010 9 05/08/2011 13 08/08/2013 9 * Vascular hx (11/12/13): no hx [place], stroke, Component Latest Ref Rng 02/18/2013 08/12/2013 10/13/2013 Triglyceride 30 - 149 mg/dL 114 123 126 Cholesterol 100 - 199 mg/dL 196 192 187 HDL Cholesterol >55 mg/dL 47 (L) 58 52 (L) VLDL Cholesterol 6 - 40 mg/dL 23 25 25 LDL Cholesterol 60 - 129 mg/dL 126 109 110 Fasting Time FASTING FASTING fasting TC:HDL Ratio 1.00 - 5.00 4.17 3.31 3.60 LDL:HDL Ratio 0.50 - 3.55 2.68 1.88 2.12 Non HDL Cholesterol 90 - 159 mg/dL 149 134 135 * Sleep (11/12/13): has obstructive sleep apnea, uses BiPAP since titration 04/07/13 * Exercise (11/12/13): not exercisnig * Medications (11/12/13): Victoza 1.8 mg daily, metformin 500 mg 2-1-1, * Physician (11/12/13): primary physician is Hayley Malone Morbid obesity 03/02/2003 07/15/2014 HYPERLIPIDEMIA NEC/NOS 5 documented as of this encounter (statuses as of 04/11/2022) [facility]2020 History of Past illness Narrative* Problem Noted Date Resolved Date Postoperative abdominal pain 07/12/202011/2020 Mild protein-calorie malnutrition 06/28/2020 06/29/2020 Infected prosthetic mesh of abdominal wall 06/2006/30/2020 Obesity, Class II, BMI 35-39.9 06/13/2019 1 10/17/2019 SBO (small bowel obstruction) 06/07/2019 Morbid obesity 03/10/2019 06/13/2019 Abnormal cardiovascular stress test 09/11/2017 10/15/2017 Primary osteoarthritis of right hip 11/27/2016 08/18/2020 Trochanteric bursitis of right hip 11/27/2016 08/18/2020 Dyspnea, unspecified 03/08/2016 08/16/2020 Angiomyolipoma of right kidney 01/11/2016 1 Essential hypertension with goal blood pressure less than 140/90 12/13/2015 04/12/2017 Obstructive sleep apnea syndrome 12/13/2015 04/12/2017 Superficial skin infection 08/31/201503/13 CKD stage 3 due to type 2 diabetes mellitus 01/1011/16/2018 Overview: Dr. Lilian Vance, nephrology BMI 45.0-49.9, adult 02/06/2015 12/01/2019 Venous insufficiency 02/06/2015 04/12/2017 DM type 2 causing CKD stage 3 09/21/2014 Overview: Dr Landen Best, endocrinology Degenerative arthritis of hip 07/01/2014 BMI 45.0-49.9, adult 03/31/2014 10/13/2014 Diabetes mellitus type II, uncontrolled 11/26/19 14 02/06/2015 BMI 40.0-44.9, adult 10/14/2013 03/31/2014 Chest pain 09/13/2012 03/13/2016 Overview: Substernal pressure lasting ~5hrs, partially relieved with SLN. Significant risk factors for CAD (HTN, HLD, DM). EKG does to show ST changes. Initial CE at [facility] are supposedly negative. Prior stress test in 2010 was normal. DM well controlled. Currently low likelihood for ACS. - EKG - trend Donald - stress test vs [facility] S/P total knee replacement using cement 07/02/20 12 07/15/2018 Degenerative arthritis of right knee 06/10/2012 08/12/2014 Allergic contact dermatitis due to metals 201108/16/2020 Sensorineural hearing loss, bilateral 07/19/2011 08/16/2020 Diverticulosis 08/23/2010 03/13/2016 Thyroid CA 02/21/2010 08/12/2014 Overview: * Surgery (12/15/09): total thyroidectomy, Dr. Jamey Ibrahim, [facility] * Path (10/29/09): FNA Atypical cells present in a background of cyst contents, suspicious for papillary thyroid carcinoma (12/15/09): single well-circumscribed nodule in the right inferior lobe, which measured 3.5 cm in greatest dimension. The nodule was extensively hemorrhagic and cystic with a rim of viable material which ranges in appearance from papillary architecture to follicular structures. There is no evidence of a higher grade component. There is no definitive lymphovascular space invasion identified. In some areas, the tumor cells have oncocytic cytoplasm, however, the cells do not meet criteria for tall-cell variant of papillary thyroid carcinoma. * SIDDIQI (02/17/10): Rx 131-Iodine 102.4 mCi, Thyrogen-stim * Scan (02/24/10): post-treatment scan (Thyrogen-stim) shows uptake in left neck, also in liver area. SPECT images show one focus of uptake in lateral segment of the left lobe of the liver, one in the medial segment of the left lobe of liver, and one in the posterior segment of the right lobe of the liver. (05/03/11): Thyrogen stim 123-Iodine scan negative * Thyroglobulin Component Thyroglobulin TG Antibody Screen Stimulation Latest Ref Rng 0.8 - 49.0 ng/mL <14.4 IU/mL 11/05/2009 75.7 (H) 1.0 01/18/2010 <0.2 (L) 1.1 02/16/2010 0.3 (L) 1.0 Thyrogen 07/05/2010 <0.2 (L) 1.3 12/27/2010 <0.2 (L) 1.3 05/08/2011 <0.2 (L) 1.1 Thyrogen 07/24/2011 <0.2 (L) 1.5 01/23/2012 <0.2 (L) 1.0 07/27/2012 <0.2 (L) <1.0 02/18/2013 <0.2 (L) <1.0 08/12/2013 <0.2 (L) <1.0 * mRNA (11/03/09): TSH-R mRNA=1.7 ng/ug (11/30/09): TSH-R mRNA=1.8 ng/ug (01/18/10): no TSH-R mRNA assay postop (07/05/10): TSH-R mRNA <1.0 ng/ug (12/27/10): TSH-R mRNA <1.0 ng/ug * Ultrasound (01/18/10): no suspicious adenopathy along great vessels or in lateral neck on either side. No masses in thyroid bed. (12/27/10): no suspicious adenopathy along great vessels or in lateral neck on either side. No masses in thyroid bed. (01/24/12): no suspicious adenopathy along great vessels or in lateral neck on either side. No masses in thyroid bed. (08/11/13): no suspicious adenopathy along great vessels or in lateral neck on either side. No masses in thyroid bed. Thyroid nodule 10/20/2009 03/02/2010 Incisional hernia without mention of obstruction or gangrene 09/12/2005 08/12/2014 Symptomatic menopausal or female climacteric sta aniceto 04/07/2003 10/15/2017 Diabetes mellitus type 2 03/02/2003 014 Overview: *Type (): dx type 2 diabetes *Control hx Component Hemoglobin A1C Latest Ref Rng 4.0 - 6.0 % 01/17/2011 6.8 05/08/2011 7.2 07/24/2011 6.8 01/23/2012 6.7 07/27/2012 6.1 (H) 02/18/2013 6.4 (H) 08/08/2013 7.0 (H) 10/13/2013 7.1 (H) 02/17/14 7.3 * Eye hx (10/2008): no DM changes per Dr. Campoverde (07/2013): no DM changes per pt, exam Dr. Campoverde * Renal hx Component Albumin/Creat Ratio Latest Ref Rng 0 - 30 mg/g 04/03/2005 8 05/03/2006 8 03/26/2008 13 01/22/2009 18 02/16/2010 10 07/05/2010 9 05/08/2011 13 08/08/2013 9 * Vascular hx (11/12/13): no hx [place], stroke, Component Latest Ref Rng 02/18/2013 08/12/2013 10/13/2013 Triglyceride 30 - 149 mg/dL 114 123 126 Cholesterol 100 - 199 mg/dL 196 192 187 HDL Cholesterol >55 mg/dL 47 (L) 58 52 (L) VLDL Cholesterol 6 - 40 mg/dL 23 25 25 LDL Cholesterol 60 - 129 mg/dL 126 109 110 Fasting Time FASTING FASTING fasting TC:HDL Ratio 1.00 - 5.00 4.17 3.31 3.60 LDL:HDL Ratio 0.50 - 3.55 2.68 1.88 2.12 Non HDL Cholesterol 90 - 159 mg/dL 149 134 135 * Sleep (11/12/13): has obstructive sleep apnea, uses BiPAP since titration 04/07/13 * Exercise (11/12/13): not exercisnig * Medications (11/12/13): Victoza 1.8 mg daily, metformin 500 mg 2-1-1, * Physician (11/12/13): primary physician is Hayley Malone Morbid obesity 03/02/2003 07/15/2014 HYPERLIPIDEMIA NEC/NOS 5 documented as of this encounter (statuses as of 04/19/2022) [facility]11-[facility]2020 History of Past illness Narrative* Problem Noted Date Resolved Date Postoperative abdominal pain 07/12/202011/2020 Mild protein-calorie malnutrition 06/28/2020 06/29/2020 Infected prosthetic mesh of abdominal wall 06/2006/30/2020 Obesity, Class II, BMI 35-39.9 06/13/2019 1 10/17/2019 SBO (small bowel obstruction) 06/07/2019 Morbid obesity 03/10/2019 06/13/2019 Abnormal cardiovascular stress test 09/11/2017 10/15/2017 Primary osteoarthritis of right hip 11/27/2016 08/18/2020 Trochanteric bursitis of right hip 11/27/2016 08/18/2020 Dyspnea, unspecified 03/08/2016 08/16/2020 Angiomyolipoma of right kidney 01/11/2016 1 Essential hypertension with goal blood pressure less than 140/90 12/13/2015 04/12/2017 Obstructive sleep apnea syndrome 12/13/2015 04/12/2017 Superficial skin infection 08/31/201503/13 CKD stage 3 due to type 2 diabetes mellitus 01/1011/16/2018 Overview: Dr. Lilian Vance, nephrology BMI 45.0-49.9, adult 02/06/2015 12/01/2019 Venous insufficiency 02/06/2015 04/12/2017 DM type 2 causing CKD stage 3 09/21/2014 Overview: Dr Landen Best, endocrinology Degenerative arthritis of hip 07/01/2014 BMI 45.0-49.9, adult 03/31/2014 10/13/2014 Diabetes mellitus type II, uncontrolled 11/26/19 14 02/06/2015 BMI 40.0-44.9, adult 10/14/2013 03/31/2014 Chest pain 09/13/2012 03/13/2016 Overview: Substernal pressure lasting ~5hrs, partially relieved with SLN. Significant risk factors for CAD (HTN, HLD, DM). EKG does to show ST changes. Initial CE at [facility] are supposedly negative. Prior stress test in 2010 was normal. DM well controlled. Currently low likelihood for ACS. - EKG - trend Donald - stress test vs [facility] S/P total knee replacement using cement 07/02/20 12 07/15/2018 Degenerative arthritis of right knee 06/10/2012 08/12/2014 Allergic contact dermatitis due to metals 201108/16/2020 Sensorineural hearing loss, bilateral 07/19/2011 08/16/2020 Diverticulosis 08/23/2010 03/13/2016 Thyroid CA 02/21/2010 08/12/2014 Overview: * Surgery (12/15/09): total thyroidectomy, Dr. Jamey Ibrahim, [facility] * Path (10/29/09): FNA Atypical cells present in a background of cyst contents, suspicious for papillary thyroid carcinoma (12/15/09): single well-circumscribed nodule in the right inferior lobe, which measured 3.5 cm in greatest dimension. The nodule was extensively hemorrhagic and cystic with a rim of viable material which ranges in appearance from papillary architecture to follicular structures. There is no evidence of a higher grade component. There is no definitive lymphovascular space invasion identified. In some areas, the tumor cells have oncocytic cytoplasm, however, the cells do not meet criteria for tall-cell variant of papillary thyroid carcinoma. * SIDDIQI (02/17/10): Rx 131-Iodine 102.4 mCi, Thyrogen-stim * Scan (02/24/10): post-treatment scan (Thyrogen-stim) shows uptake in left neck, also in liver area. SPECT images show one focus of uptake in lateral segment of the left lobe of the liver, one in the medial segment of the left lobe of liver, and one in the posterior segment of the right lobe of the liver. (05/03/11): Thyrogen stim 123-Iodine scan negative * Thyroglobulin Component Thyroglobulin TG Antibody Screen Stimulation Latest Ref Rng 0.8 - 49.0 ng/mL <14.4 IU/mL 11/05/2009 75.7 (H) 1.0 01/18/2010 <0.2 (L) 1.1 02/16/2010 0.3 (L) 1.0 Thyrogen 07/05/2010 <0.2 (L) 1.3 12/27/2010 <0.2 (L) 1.3 05/08/2011 <0.2 (L) 1.1 Thyrogen 07/24/2011 <0.2 (L) 1.5 01/23/2012 <0.2 (L) 1.0 07/27/2012 <0.2 (L) <1.0 02/18/2013 <0.2 (L) <1.0 08/12/2013 <0.2 (L) <1.0 * mRNA (11/03/09): TSH-R mRNA=1.7 ng/ug (11/30/09): TSH-R mRNA=1.8 ng/ug (01/18/10): no TSH-R mRNA assay postop (07/05/10): TSH-R mRNA <1.0 ng/ug (12/27/10): TSH-R mRNA <1.0 ng/ug * Ultrasound (01/18/10): no suspicious adenopathy along great vessels or in lateral neck on either side. No masses in thyroid bed. (12/27/10): no suspicious adenopathy along great vessels or in lateral neck on either side. No masses in thyroid bed. (01/24/12): no suspicious adenopathy along great vessels or in lateral neck on either side. No masses in thyroid bed. (08/11/13): no suspicious adenopathy along great vessels or in lateral neck on either side. No masses in thyroid bed. Thyroid nodule 10/20/2009 03/02/2010 Incisional hernia without mention of obstruction or gangrene 09/12/2005 08/12/2014 Symptomatic menopausal or female climacteric sta aniceto 04/07/2003 10/15/2017 Diabetes mellitus type 2 03/02/2003 014 Overview: *Type (): dx type 2 diabetes *Control hx Component Hemoglobin A1C Latest Ref Rng 4.0 - 6.0 % 01/17/2011 6.8 05/08/2011 7.2 07/24/2011 6.8 01/23/2012 6.7 07/27/2012 6.1 (H) 02/18/2013 6.4 (H) 08/08/2013 7.0 (H) 10/13/2013 7.1 (H) 02/17/14 7.3 * Eye hx (10/2008): no DM changes per Dr. Campoverde (07/2013): no DM changes per pt, exam Dr. Campoverde * Renal hx Component Albumin/Creat Ratio Latest Ref Rng 0 - 30 mg/g 04/03/2005 8 05/03/2006 8 03/26/2008 13 01/22/2009 18 02/16/2010 10 07/05/2010 9 05/08/2011 13 08/08/2013 9 * Vascular hx (11/12/13): no hx [place], stroke, Component Latest Ref Rng 02/18/2013 08/12/2013 10/13/2013 Triglyceride 30 - 149 mg/dL 114 123 126 Cholesterol 100 - 199 mg/dL 196 192 187 HDL Cholesterol >55 mg/dL 47 (L) 58 52 (L) VLDL Cholesterol 6 - 40 mg/dL 23 25 25 LDL Cholesterol 60 - 129 mg/dL 126 109 110 Fasting Time FASTING FASTING fasting TC:HDL Ratio 1.00 - 5.00 4.17 3.31 3.60 LDL:HDL Ratio 0.50 - 3.55 2.68 1.88 2.12 Non HDL Cholesterol 90 - 159 mg/dL 149 134 135 * Sleep (11/12/13): has obstructive sleep apnea, uses BiPAP since titration 04/07/13 * Exercise (11/12/13): not exercisnig * Medications (11/12/13): Victoza 1.8 mg daily, metformin 500 mg 2-1-1, * Physician (11/12/13): primary physician is Hayley Malone Morbid obesity 03/02/2003 07/15/2014 HYPERLIPIDEMIA NEC/NOS 5 documented as of this encounter (statuses as of 05/02/2022) [facility] History of Past illness Narrative* Problem Noted Date Resolved Date Postoperative abdominal pain 07/12/202011/2020 Mild protein-calorie malnutrition 06/28/2020 06/29/2020 Infected prosthetic mesh of abdominal wall 06/2006/30/2020 Obesity, Class II, BMI 35-39.9 06/13/2019 1 10/17/2019 SBO (small bowel obstruction) 06/07/2019 Morbid obesity 03/10/2019 06/13/2019 Abnormal cardiovascular stress test 09/11/2017 10/15/2017 Primary osteoarthritis of right hip 11/27/2016 08/18/2020 Trochanteric bursitis of right hip 11/27/2016 08/18/2020 Dyspnea, unspecified 03/08/2016 08/16/2020 Angiomyolipoma of right kidney 01/11/2016 1 Essential hypertension with goal blood pressure less than 140/90 12/13/2015 04/12/2017 Obstructive sleep apnea syndrome 12/13/2015 04/12/2017 Superficial skin infection 08/31/201503/13 CKD stage 3 due to type 2 diabetes mellitus 01/1011/16/2018 Overview: Dr. Lilian Vance, nephrology BMI 45.0-49.9, adult 02/06/2015 12/01/2019 Venous insufficiency 02/06/2015 04/12/2017 DM type 2 causing CKD stage 3 09/21/2014 Overview: Dr Landen Best, endocrinology Degenerative arthritis of hip 07/01/2014 BMI 45.0-49.9, adult 03/31/2014 10/13/2014 Diabetes mellitus type II, uncontrolled 11/26/19 14 02/06/2015 BMI 40.0-44.9, adult 10/14/2013 03/31/2014 Chest pain 09/13/2012 03/13/2016 Overview: Substernal pressure lasting ~5hrs, partially relieved with SLN. Significant risk factors for CAD (HTN, HLD, DM). EKG does to show ST changes. Initial CE at [facility] are supposedly negative. Prior stress test in 2010 was normal. DM well controlled. Currently low likelihood for ACS. - EKG - trend Donald - stress test vs [facility] S/P total knee replacement using cement 07/02/20 12 07/15/2018 Degenerative arthritis of right knee 06/10/2012 08/12/2014 Allergic contact dermatitis due to metals 201108/16/2020 Sensorineural hearing loss, bilateral 07/19/2011 08/16/2020 Diverticulosis 08/23/2010 03/13/2016 Thyroid CA 02/21/2010 08/12/2014 Overview: * Surgery (12/15/09): total thyroidectomy, Dr. Jamey Ibrahim, [facility] * Path (10/29/09): FNA Atypical cells present in a background of cyst contents, suspicious for papillary thyroid carcinoma (12/15/09): single well-circumscribed nodule in the right inferior lobe, which measured 3.5 cm in greatest dimension. The nodule was extensively hemorrhagic and cystic with a rim of viable material which ranges in appearance from papillary architecture to follicular structures. There is no evidence of a higher grade component. There is no definitive lymphovascular space invasion identified. In some areas, the tumor cells have oncocytic cytoplasm, however, the cells do not meet criteria for tall-cell variant of papillary thyroid carcinoma. * SIDDIQI (02/17/10): Rx 131-Iodine 102.4 mCi, Thyrogen-stim * Scan (02/24/10): post-treatment scan (Thyrogen-stim) shows uptake in left neck, also in liver area. SPECT images show one focus of uptake in lateral segment of the left lobe of the liver, one in the medial segment of the left lobe of liver, and one in the posterior segment of the right lobe of the liver. (05/03/11): Thyrogen stim 123-Iodine scan negative * Thyroglobulin Component Thyroglobulin TG Antibody Screen Stimulation Latest Ref Rng 0.8 - 49.0 ng/mL <14.4 IU/mL 11/05/2009 75.7 (H) 1.0 01/18/2010 <0.2 (L) 1.1 02/16/2010 0.3 (L) 1.0 Thyrogen 07/05/2010 <0.2 (L) 1.3 12/27/2010 <0.2 (L) 1.3 05/08/2011 <0.2 (L) 1.1 Thyrogen 07/24/2011 <0.2 (L) 1.5 01/23/2012 <0.2 (L) 1.0 07/27/2012 <0.2 (L) <1.0 02/18/2013 <0.2 (L) <1.0 08/12/2013 <0.2 (L) <1.0 * mRNA (11/03/09): TSH-R mRNA=1.7 ng/ug (11/30/09): TSH-R mRNA=1.8 ng/ug (01/18/10): no TSH-R mRNA assay postop (07/05/10): TSH-R mRNA <1.0 ng/ug (12/27/10): TSH-R mRNA <1.0 ng/ug * Ultrasound (01/18/10): no suspicious adenopathy along great vessels or in lateral neck on either side. No masses in thyroid bed. (12/27/10): no suspicious adenopathy along great vessels or in lateral neck on either side. No masses in thyroid bed. (01/24/12): no suspicious adenopathy along great vessels or in lateral neck on either side. No masses in thyroid bed. (08/11/13): no suspicious adenopathy along great vessels or in lateral neck on either side. No masses in thyroid bed. Thyroid nodule 10/20/2009 03/02/2010 Incisional hernia without mention of obstruction or gangrene 09/12/2005 08/12/2014 Symptomatic menopausal or female climacteric sta aniceto 04/07/2003 10/15/2017 Diabetes mellitus type 2 03/02/2003 014 Overview: *Type (): dx type 2 diabetes *Control hx Component Hemoglobin A1C Latest Ref Rng 4.0 - 6.0 % 01/17/2011 6.8 05/08/2011 7.2 07/24/2011 6.8 01/23/2012 6.7 07/27/2012 6.1 (H) 02/18/2013 6.4 (H) 08/08/2013 7.0 (H) 10/13/2013 7.1 (H) 02/17/14 7.3 * Eye hx (10/2008): no DM changes per Dr. Campoverde (07/2013): no DM changes per pt, exam Dr. Campoverde * Renal hx Component Albumin/Creat Ratio Latest Ref Rng 0 - 30 mg/g 04/03/2005 8 05/03/2006 8 03/26/2008 13 01/22/2009 18 02/16/2010 10 07/05/2010 9 05/08/2011 13 08/08/2013 9 * Vascular hx (11/12/13): no hx [place], stroke, Component Latest Ref Rng 02/18/2013 08/12/2013 10/13/2013 Triglyceride 30 - 149 mg/dL 114 123 126 Cholesterol 100 - 199 mg/dL 196 192 187 HDL Cholesterol >55 mg/dL 47 (L) 58 52 (L) VLDL Cholesterol 6 - 40 mg/dL 23 25 25 LDL Cholesterol 60 - 129 mg/dL 126 109 110 Fasting Time FASTING FASTING fasting TC:HDL Ratio 1.00 - 5.00 4.17 3.31 3.60 LDL:HDL Ratio 0.50 - 3.55 2.68 1.88 2.12 Non HDL Cholesterol 90 - 159 mg/dL 149 134 135 * Sleep (11/12/13): has obstructive sleep apnea, uses BiPAP since titration 04/07/13 * Exercise (11/12/13): not exercisnig * Medications (11/12/13): Victoza 1.8 mg daily, metformin 500 mg 2-1-1, * Physician (11/12/13): primary physician is Hayley Malone Morbid obesity 03/02/2003 07/15/2014 HYPERLIPIDEMIA NEC/NOS 5 documented as of this encounter (statuses as of 05/05/2022) [facility] History of Past illness Narrative* Problem Noted Date Resolved Date Postoperative abdominal pain 07/12/202011/2020 Mild protein-calorie malnutrition 06/28/2020 06/29/2020 Infected prosthetic mesh of abdominal wall 06/2006/30/2020 Obesity, Class II, BMI 35-39.9 06/13/2019 1 10/17/2019 SBO (small bowel obstruction) 06/07/2019 Morbid obesity 03/10/2019 06/13/2019 Abnormal cardiovascular stress test 09/11/2017 10/15/2017 Primary osteoarthritis of right hip 11/27/2016 08/18/2020 Trochanteric bursitis of right hip 11/27/2016 08/18/2020 Dyspnea, unspecified 03/08/2016 08/16/2020 Angiomyolipoma of right kidney 01/11/2016 1 Essential hypertension with goal blood pressure less than 140/90 12/13/2015 04/12/2017 Obstructive sleep apnea syndrome 12/13/2015 04/12/2017 Superficial skin infection 08/31/201503/13 CKD stage 3 due to type 2 diabetes mellitus 01/1011/16/2018 Overview: Dr. Lilian Vance, nephrology BMI 45.0-49.9, adult 02/06/2015 12/01/2019 Venous insufficiency 02/06/2015 04/12/2017 DM type 2 causing CKD stage 3 09/21/2014 Overview: Dr Landen Best, endocrinology Degenerative arthritis of hip 07/01/2014 BMI 45.0-49.9, adult 03/31/2014 10/13/2014 Diabetes mellitus type II, uncontrolled 11/26/19 14 02/06/2015 BMI 40.0-44.9, adult 10/14/2013 03/31/2014 Chest pain 09/13/2012 03/13/2016 Overview: Substernal pressure lasting ~5hrs, partially relieved with SLN. Significant risk factors for CAD (HTN, HLD, DM). EKG does to show ST changes. Initial CE at [facility] are supposedly negative. Prior stress test in 2010 was normal. DM well controlled. Currently low likelihood for ACS. - EKG - trend Donald - stress test vs [facility] S/P total knee replacement using cement 07/02/20 12 07/15/2018 Degenerative arthritis of right knee 06/10/2012 08/12/2014 Allergic contact dermatitis due to metals 201108/16/2020 Sensorineural hearing loss, bilateral 07/19/2011 08/16/2020 Diverticulosis 08/23/2010 03/13/2016 Thyroid CA 02/21/2010 08/12/2014 Overview: * Surgery (12/15/09): total thyroidectomy, Dr. Jamey Ibrahim, [facility] * Path (10/29/09): FNA Atypical cells present in a background of cyst contents, suspicious for papillary thyroid carcinoma (12/15/09): single well-circumscribed nodule in the right inferior lobe, which measured 3.5 cm in greatest dimension. The nodule was extensively hemorrhagic and cystic with a rim of viable material which ranges in appearance from papillary architecture to follicular structures. There is no evidence of a higher grade component. There is no definitive lymphovascular space invasion identified. In some areas, the tumor cells have oncocytic cytoplasm, however, the cells do not meet criteria for tall-cell variant of papillary thyroid carcinoma. * SIDDIQI (02/17/10): Rx 131-Iodine 102.4 mCi, Thyrogen-stim * Scan (02/24/10): post-treatment scan (Thyrogen-stim) shows uptake in left neck, also in liver area. SPECT images show one focus of uptake in lateral segment of the left lobe of the liver, one in the medial segment of the left lobe of liver, and one in the posterior segment of the right lobe of the liver. (05/03/11): Thyrogen stim 123-Iodine scan negative * Thyroglobulin Component Thyroglobulin TG Antibody Screen Stimulation Latest Ref Rng 0.8 - 49.0 ng/mL <14.4 IU/mL 11/05/2009 75.7 (H) 1.0 01/18/2010 <0.2 (L) 1.1 02/16/2010 0.3 (L) 1.0 Thyrogen 07/05/2010 <0.2 (L) 1.3 12/27/2010 <0.2 (L) 1.3 05/08/2011 <0.2 (L) 1.1 Thyrogen 07/24/2011 <0.2 (L) 1.5 01/23/2012 <0.2 (L) 1.0 07/27/2012 <0.2 (L) <1.0 02/18/2013 <0.2 (L) <1.0 08/12/2013 <0.2 (L) <1.0 * mRNA (11/03/09): TSH-R mRNA=1.7 ng/ug (11/30/09): TSH-R mRNA=1.8 ng/ug (01/18/10): no TSH-R mRNA assay postop (07/05/10): TSH-R mRNA <1.0 ng/ug (12/27/10): TSH-R mRNA <1.0 ng/ug * Ultrasound (01/18/10): no suspicious adenopathy along great vessels or in lateral neck on either side. No masses in thyroid bed. (12/27/10): no suspicious adenopathy along great vessels or in lateral neck on either side. No masses in thyroid bed. (01/24/12): no suspicious adenopathy along great vessels or in lateral neck on either side. No masses in thyroid bed. (08/11/13): no suspicious adenopathy along great vessels or in lateral neck on either side. No masses in thyroid bed. Thyroid nodule 10/20/2009 03/02/2010 Incisional hernia without mention of obstruction or gangrene 09/12/2005 08/12/2014 Symptomatic menopausal or female climacteric sta aniceto 04/07/2003 10/15/2017 Diabetes mellitus type 2 03/02/2003 014 Overview: *Type (): dx type 2 diabetes *Control hx Component Hemoglobin A1C Latest Ref Rng 4.0 - 6.0 % 01/17/2011 6.8 05/08/2011 7.2 07/24/2011 6.8 01/23/2012 6.7 07/27/2012 6.1 (H) 02/18/2013 6.4 (H) 08/08/2013 7.0 (H) 10/13/2013 7.1 (H) 02/17/14 7.3 * Eye hx (10/2008): no DM changes per Dr. Campoverde (07/2013): no DM changes per pt, exam Dr. Campoverde * Renal hx Component Albumin/Creat Ratio Latest Ref Rng 0 - 30 mg/g 04/03/2005 8 05/03/2006 8 03/26/2008 13 01/22/2009 18 02/16/2010 10 07/05/2010 9 05/08/2011 13 08/08/2013 9 * Vascular hx (11/12/13): no hx [place], stroke, Component Latest Ref Rng 02/18/2013 08/12/2013 10/13/2013 Triglyceride 30 - 149 mg/dL 114 123 126 Cholesterol 100 - 199 mg/dL 196 192 187 HDL Cholesterol >55 mg/dL 47 (L) 58 52 (L) VLDL Cholesterol 6 - 40 mg/dL 23 25 25 LDL Cholesterol 60 - 129 mg/dL 126 109 110 Fasting Time FASTING FASTING fasting TC:HDL Ratio 1.00 - 5.00 4.17 3.31 3.60 LDL:HDL Ratio 0.50 - 3.55 2.68 1.88 2.12 Non HDL Cholesterol 90 - 159 mg/dL 149 134 135 * Sleep (11/12/13): has obstructive sleep apnea, uses BiPAP since titration 04/07/13 * Exercise (11/12/13): not exercisnig * Medications (11/12/13): Victoza 1.8 mg daily, metformin 500 mg 2-1-1, * Physician (11/12/13): primary physician is Hayley Malone Morbid obesity 03/02/2003 07/15/2014 HYPERLIPIDEMIA NEC/NOS 5 documented as of this encounter (statuses as of 05/08/2022) [facility]11-02-2020 History of Past illness Narrative* Problem Noted Date Resolved Date Postoperative abdominal pain 07/12/202011/2020 Mild protein-calorie malnutrition 06/28/2020 06/29/2020 Infected prosthetic mesh of abdominal wall 06/2006/30/2020 Obesity, Class II, BMI 35-39.9 06/13/2019 1 10/17/2019 SBO (small bowel obstruction) 06/07/2019 Morbid obesity 03/10/2019 06/13/2019 Abnormal cardiovascular stress test 09/11/2017 10/15/2017 Primary osteoarthritis of right hip 11/27/2016 08/18/2020 Trochanteric bursitis of right hip 11/27/2016 08/18/2020 Dyspnea, unspecified 03/08/2016 08/16/2020 Angiomyolipoma of right kidney 01/11/2016 1 Essential hypertension with goal blood pressure less than 140/90 12/13/2015 04/12/2017 Obstructive sleep apnea syndrome 12/13/2015 04/12/2017 Superficial skin infection 08/31/201503/13 CKD stage 3 due to type 2 diabetes mellitus 01/1011/16/2018 Overview: Dr. Lilian Vance, nephrology BMI 45.0-49.9, adult 02/06/2015 12/01/2019 Venous insufficiency 02/06/2015 04/12/2017 DM type 2 causing CKD stage 3 09/21/2014 Overview: Dr Landen Best, endocrinology Degenerative arthritis of hip 07/01/2014 BMI 45.0-49.9, adult 03/31/2014 10/13/2014 Diabetes mellitus type II, uncontrolled 11/26/19 14 02/06/2015 BMI 40.0-44.9, adult 10/14/2013 03/31/2014 Chest pain 09/13/2012 03/13/2016 Overview: Substernal pressure lasting ~5hrs, partially relieved with SLN. Significant risk factors for CAD (HTN, HLD, DM). EKG does to show ST changes. Initial CE at [facility] are supposedly negative. Prior stress test in 2010 was normal. DM well controlled. Currently low likelihood for ACS. - EKG - trend Donald - stress test vs [facility] S/P total knee replacement using cement 07/02/20 12 07/15/2018 Degenerative arthritis of right knee 06/10/2012 08/12/2014 Allergic contact dermatitis due to metals 201108/16/2020 Sensorineural hearing loss, bilateral 07/19/2011 08/16/2020 Diverticulosis 08/23/2010 03/13/2016 Thyroid CA 02/21/2010 08/12/2014 Overview: * Surgery (12/15/09): total thyroidectomy, Dr. Jamey Ibrahim, [facility] * Path (10/29/09): FNA Atypical cells present in a background of cyst contents, suspicious for papillary thyroid carcinoma (12/15/09): single well-circumscribed nodule in the right inferior lobe, which measured 3.5 cm in greatest dimension. The nodule was extensively hemorrhagic and cystic with a rim of viable material which ranges in appearance from papillary architecture to follicular structures. There is no evidence of a higher grade component. There is no definitive lymphovascular space invasion identified. In some areas, the tumor cells have oncocytic cytoplasm, however, the cells do not meet criteria for tall-cell variant of papillary thyroid carcinoma. * SIDDIQI (02/17/10): Rx 131-Iodine 102.4 mCi, Thyrogen-stim * Scan (02/24/10): post-treatment scan (Thyrogen-stim) shows uptake in left neck, also in liver area. SPECT images show one focus of uptake in lateral segment of the left lobe of the liver, one in the medial segment of the left lobe of liver, and one in the posterior segment of the right lobe of the liver. (8/24/11): Thyrogen stim 123-Iodine scan negative * Thyroglobulin Component Thyroglobulin TG Antibody Screen Stimulation Latest Ref Rng 0.8 - 49.0 ng/mL <14.4 IU/mL 11/05/2009 75.7 (H) 1.0 01/18/2010 <0.2 (L) 1.1 02/16/2010 0.3 (L) 1.0 Thyrogen 07/05/2010 <0.2 (L) 1.3 12/27/2010 <0.2 (L) 1.3 05/08/2011 <0.2 (L) 1.1 Thyrogen 07/24/2011 <0.2 (L) 1.5 01/23/2012 <0.2 (L) 1.0 07/27/2012 <0.2 (L) <1.0 02/18/2013 <0.2 (L) <1.0 08/12/2013 <0.2 (L) <1.0 * mRNA (11/03/09): TSH-R mRNA=1.7 ng/ug (11/30/09): TSH-R mRNA=1.8 ng/ug (01/18/10): no TSH-R mRNA assay postop (07/05/10): TSH-R mRNA <1.0 ng/ug (12/27/10): TSH-R mRNA <1.0 ng/ug * Ultrasound (01/18/10): no suspicious adenopathy along great vessels or in lateral neck on either side. No masses in thyroid bed. (12/27/10): no suspicious adenopathy along great vessels or in lateral neck on either side. No masses in thyroid bed. (01/24/12): no suspicious adenopathy along great vessels or in lateral neck on either side. No masses in thyroid bed. (08/11/13): no suspicious adenopathy along great vessels or in lateral neck on either side. No masses in thyroid bed. Thyroid nodule 10/20/2009 03/02/2010 Incisional hernia without mention of obstruction or gangrene 09/12/2005 08/12/2014 Symptomatic menopausal or female climacteric sta aniceto 04/07/2003 10/15/2017 Diabetes mellitus type 2 03/02/2003 014 Overview: *Type (): dx type 2 diabetes *Control hx Component Hemoglobin A1C Latest Ref Rng 4.0 - 6.0 % 01/17/2011 6.8 05/08/2011 7.2 07/24/2011 6.8 01/23/2012 6.7 07/27/2012 6.1 (H) 02/18/2013 6.4 (H) 08/08/2013 7.0 (H) 10/13/2013 7.1 (H) 02/17/14 7.3 * Eye hx (10/2008): no DM changes per Dr. Campoverde (07/2013): no DM changes per pt, exam Dr. Campoverde * Renal hx Component Albumin/Creat Ratio Latest Ref Rng 0 - 30 mg/g 04/03/2005 8 05/03/2006 8 03/26/2008 13 01/22/2009 18 02/16/2010 10 07/05/2010 9 05/08/2011 13 08/08/2013 9 * Vascular hx (11/12/13): no hx [place], stroke, Component Latest Ref Rng 02/18/2013 08/12/2013 10/13/2013 Triglyceride 30 - 149 mg/dL 114 123 126 Cholesterol 100 - 199 mg/dL 196 192 187 HDL Cholesterol >55 mg/dL 47 (L) 58 52 (L) VLDL Cholesterol 6 - 40 mg/dL 23 25 25 LDL Cholesterol 60 - 129 mg/dL 126 109 110 Fasting Time FASTING FASTING fasting TC:HDL Ratio 1.00 - 5.00 4.17 3.31 3.60 LDL:HDL Ratio 0.50 - 3.55 2.68 1.88 2.12 Non HDL Cholesterol 90 - 159 mg/dL 149 134 135 * Sleep (11/12/13): has obstructive sleep apnea, uses BiPAP since titration 04/07/13 * Exercise (11/12/13): not exercisnig * Medications (11/12/13): Victoza 1.8 mg daily, metformin 500 mg 2-1-1, * Physician (11/12/13): primary physician is Hayley Malone Morbid obesity 03/02/2003 07/15/2014 HYPERLIPIDEMIA NEC/NOS 5 documented as of this encounter (statuses as of 05/11/2022) [facility]11-[facility]2020 History of Past illness Narrative* Problem Noted Date Resolved Date Postoperative abdominal pain 07/12/202011/2020 Mild protein-calorie malnutrition 06/28/2020 06/29/2020 Infected prosthetic mesh of abdominal wall 06/2006/30/2020 Obesity, Class II, BMI 35-39.9 06/13/2019 1 10/17/2019 SBO (small bowel obstruction) 06/07/2019 Morbid obesity 03/10/2019 06/13/2019 Abnormal cardiovascular stress test 09/11/2017 10/15/2017 Primary osteoarthritis of right hip 11/27/2016 08/18/2020 Trochanteric bursitis of right hip 11/27/2016 08/18/2020 Dyspnea, unspecified 03/08/2016 08/16/2020 Angiomyolipoma of right kidney 01/11/2016 1 Essential hypertension with goal blood pressure less than 140/90 12/13/2015 04/12/2017 Obstructive sleep apnea syndrome 12/13/2015 04/12/2017 Superficial skin infection 08/31/201503/13 CKD stage 3 due to type 2 diabetes mellitus 01/1011/16/2018 Overview: Dr. Lilian Vance, nephrology BMI 45.0-49.9, adult 02/06/2015 12/01/2019 Venous insufficiency 02/06/2015 04/12/2017 DM type 2 causing CKD stage 3 09/21/2014 Overview: Dr Landen Best, endocrinology Degenerative arthritis of hip 07/01/2014 BMI 45.0-49.9, adult 03/31/2014 10/13/2014 Diabetes mellitus type II, uncontrolled 11/26/19 14 02/06/2015 BMI 40.0-44.9, adult 10/14/2013 03/31/2014 Chest pain 09/13/2012 03/13/2016 Overview: Substernal pressure lasting ~5hrs, partially relieved with SLN. Significant risk factors for CAD (HTN, HLD, DM). EKG does to show ST changes. Initial CE at [facility] are supposedly negative. Prior stress test in 2010 was normal. DM well controlled. Currently low likelihood for ACS. - EKG - trend Donald - stress test vs [facility] S/P total knee replacement using cement 07/02/20 12 07/15/2018 Degenerative arthritis of right knee 06/10/2012 08/12/2014 Allergic contact dermatitis due to metals 201108/16/2020 Sensorineural hearing loss, bilateral 07/19/2011 08/16/2020 Diverticulosis 08/23/2010 03/13/2016 Thyroid CA 02/21/2010 08/12/2014 Overview: * Surgery (12/15/09): total thyroidectomy, Dr. Jamey Ibrahim, [facility] * Path (10/29/09): FNA Atypical cells present in a background of cyst contents, suspicious for papillary thyroid carcinoma (12/15/09): single well-circumscribed nodule in the right inferior lobe, which measured 3.5 cm in greatest dimension. The nodule was extensively hemorrhagic and cystic with a rim of viable material which ranges in appearance from papillary architecture to follicular structures. There is no evidence of a higher grade component. There is no definitive lymphovascular space invasion identified. In some areas, the tumor cells have oncocytic cytoplasm, however, the cells do not meet criteria for tall-cell variant of papillary thyroid carcinoma. * SIDDIQI (02/17/10): Rx 131-Iodine 102.4 mCi, Thyrogen-stim * Scan (02/24/10): post-treatment scan (Thyrogen-stim) shows uptake in left neck, also in liver area. SPECT images show one focus of uptake in lateral segment of the left lobe of the liver, one in the medial segment of the left lobe of liver, and one in the posterior segment of the right lobe of the liver. (05/03/11): Thyrogen stim 123-Iodine scan negative * Thyroglobulin Component Thyroglobulin TG Antibody Screen Stimulation Latest Ref Rng 0.8 - 49.0 ng/mL <14.4 IU/mL 11/05/2009 75.7 (H) 1.0 01/18/2010 <0.2 (L) 1.1 02/16/2010 0.3 (L) 1.0 Thyrogen 07/05/2010 <0.2 (L) 1.3 12/27/2010 <0.2 (L) 1.3 05/08/2011 <0.2 (L) 1.1 Thyrogen 07/24/2011 <0.2 (L) 1.5 01/23/2012 <0.2 (L) 1.0 07/27/2012 <0.2 (L) <1.0 02/18/2013 <0.2 (L) <1.0 08/12/2013 <0.2 (L) <1.0 * mRNA (11/03/09): TSH-R mRNA=1.7 ng/ug (11/30/09): TSH-R mRNA=1.8 ng/ug (01/18/10): no TSH-R mRNA assay postop (07/05/10): TSH-R mRNA <1.0 ng/ug (12/27/10): TSH-R mRNA <1.0 ng/ug * Ultrasound (01/18/10): no suspicious adenopathy along great vessels or in lateral neck on either side. No masses in thyroid bed. (12/27/10): no suspicious adenopathy along great vessels or in lateral neck on either side. No masses in thyroid bed. (01/24/12): no suspicious adenopathy along great vessels or in lateral neck on either side. No masses in thyroid bed. (08/11/13): no suspicious adenopathy along great vessels or in lateral neck on either side. No masses in thyroid bed. Thyroid nodule 10/20/2009 03/02/2010 Incisional hernia without mention of obstruction or gangrene 09/12/2005 08/12/2014 Symptomatic menopausal or female climacteric sta aniceto 04/07/2003 10/15/2017 Diabetes mellitus type 2 03/02/2003 014 Overview: *Type (): dx type 2 diabetes *Control hx Component Hemoglobin A1C Latest Ref Rng 4.0 - 6.0 % 01/17/2011 6.8 05/08/2011 7.2 07/24/2011 6.8 01/23/2012 6.7 07/27/2012 6.1 (H) 02/18/2013 6.4 (H) 08/08/2013 7.0 (H) 10/13/2013 7.1 (H) 02/17/14 7.3 * Eye hx (10/2008): no DM changes per Dr. Campoverde (07/2013): no DM changes per pt, exam Dr. Campoverde * Renal hx Component Albumin/Creat Ratio Latest Ref Rng 0 - 30 mg/g 04/03/2005 8 05/03/2006 8 03/26/2008 13 01/22/2009 18 02/16/2010 10 07/05/2010 9 05/08/2011 13 08/08/2013 9 * Vascular hx (11/12/13): no hx [place], stroke, Component Latest Ref Rng 02/18/2013 08/12/2013 10/13/2013 Triglyceride 30 - 149 mg/dL 114 123 126 Cholesterol 100 - 199 mg/dL 196 192 187 HDL Cholesterol >55 mg/dL 47 (L) 58 52 (L) VLDL Cholesterol 6 - 40 mg/dL 23 25 25 LDL Cholesterol 60 - 129 mg/dL 126 109 110 Fasting Time FASTING FASTING fasting TC:HDL Ratio 1.00 - 5.00 4.17 3.31 3.60 LDL:HDL Ratio 0.50 - 3.55 2.68 1.88 2.12 Non HDL Cholesterol 90 - 159 mg/dL 149 134 135 * Sleep (11/12/13): has obstructive sleep apnea, uses BiPAP since titration 04/07/13 * Exercise (11/12/13): not exercisnig * Medications (11/12/13): Victoza 1.8 mg daily, metformin 500 mg 2-1-1, * Physician (11/12/13): primary physician is Hayley Malone Morbid obesity 03/02/2003 07/15/2014 HYPERLIPIDEMIA NEC/NOS 5 documented as of this encounter (statuses as of 05/31/2022) [facility] History of Past illness Narrative* Problem Noted Date Resolved Date Postoperative abdominal pain 07/12/202011/2020 Mild protein-calorie malnutrition 06/28/2020 06/29/2020 Infected prosthetic mesh of abdominal wall 06/2006/30/2020 Obesity, Class II, BMI 35-39.9 06/13/2019 1 10/17/2019 SBO (small bowel obstruction) 06/07/2019 Morbid obesity 03/10/2019 06/13/2019 Abnormal cardiovascular stress test 09/11/2017 10/15/2017 Primary osteoarthritis of right hip 11/27/2016 08/18/2020 Trochanteric bursitis of right hip 11/27/2016 08/18/2020 Dyspnea, unspecified 03/08/2016 08/16/2020 Angiomyolipoma of right kidney 01/11/2016 1 Essential hypertension with goal blood pressure less than 140/90 12/13/2015 04/12/2017 Obstructive sleep apnea syndrome 12/13/2015 04/12/2017 Superficial skin infection 08/31/201503/13 CKD stage 3 due to type 2 diabetes mellitus 01/1011/16/2018 Overview: Dr. Lilian Vance, nephrology BMI 45.0-49.9, adult 02/06/2015 12/01/2019 Venous insufficiency 02/06/2015 04/12/2017 DM type 2 causing CKD stage 3 09/21/2014 Overview: Dr Landen Best, endocrinology Degenerative arthritis of hip 07/01/2014 BMI 45.0-49.9, adult 03/31/2014 10/13/2014 Diabetes mellitus type II, uncontrolled 11/26/19 14 02/06/2015 BMI 40.0-44.9, adult 10/14/2013 03/31/2014 Chest pain 09/13/2012 03/13/2016 Overview: Substernal pressure lasting ~5hrs, partially relieved with SLN. Significant risk factors for CAD (HTN, HLD, DM). EKG does to show ST changes. Initial CE at [facility] are supposedly negative. Prior stress test in 2010 was normal. DM well controlled. Currently low likelihood for ACS. - EKG - trend Donald - stress test vs [facility] S/P total knee replacement using cement 07/02/20 12 07/15/2018 Degenerative arthritis of right knee 06/10/2012 08/12/2014 Allergic contact dermatitis due to metals 201108/16/2020 Sensorineural hearing loss, bilateral 07/19/2011 08/16/2020 Diverticulosis 08/23/2010 03/13/2016 Thyroid CA 02/21/2010 08/12/2014 Overview: * Surgery (12/15/09): total thyroidectomy, Dr. Jamey Ibrahim, [facility] * Path (10/29/09): FNA Atypical cells present in a background of cyst contents, suspicious for papillary thyroid carcinoma (12/15/09): single well-circumscribed nodule in the right inferior lobe, which measured 3.5 cm in greatest dimension. The nodule was extensively hemorrhagic and cystic with a rim of viable material which ranges in appearance from papillary architecture to follicular structures. There is no evidence of a higher grade component. There is no definitive lymphovascular space invasion identified. In some areas, the tumor cells have oncocytic cytoplasm, however, the cells do not meet criteria for tall-cell variant of papillary thyroid carcinoma. * SIDDIQI (02/17/10): Rx 131-Iodine 102.4 mCi, Thyrogen-stim * Scan (02/24/10): post-treatment scan (Thyrogen-stim) shows uptake in left neck, also in liver area. SPECT images show one focus of uptake in lateral segment of the left lobe of the liver, one in the medial segment of the left lobe of liver, and one in the posterior segment of the right lobe of the liver. (05/03/11): Thyrogen stim 123-Iodine scan negative * Thyroglobulin Component Thyroglobulin TG Antibody Screen Stimulation Latest Ref Rng 0.8 - 49.0 ng/mL <14.4 IU/mL 11/05/2009 75.7 (H) 1.0 01/18/2010 <0.2 (L) 1.1 02/16/2010 0.3 (L) 1.0 Thyrogen 07/05/2010 <0.2 (L) 1.3 12/27/2010 <0.2 (L) 1.3 05/08/2011 <0.2 (L) 1.1 Thyrogen 07/24/2011 <0.2 (L) 1.5 01/23/2012 <0.2 (L) 1.0 07/27/2012 <0.2 (L) <1.0 02/18/2013 <0.2 (L) <1.0 08/12/2013 <0.2 (L) <1.0 * mRNA (11/03/09): TSH-R mRNA=1.7 ng/ug (11/30/09): TSH-R mRNA=1.8 ng/ug (01/18/10): no TSH-R mRNA assay postop (07/05/10): TSH-R mRNA <1.0 ng/ug (12/27/10): TSH-R mRNA <1.0 ng/ug * Ultrasound (01/18/10): no suspicious adenopathy along great vessels or in lateral neck on either side. No masses in thyroid bed. (12/27/10): no suspicious adenopathy along great vessels or in lateral neck on either side. No masses in thyroid bed. (01/24/12): no suspicious adenopathy along great vessels or in lateral neck on either side. No masses in thyroid bed. (08/11/13): no suspicious adenopathy along great vessels or in lateral neck on either side. No masses in thyroid bed. Thyroid nodule 10/20/2009 03/02/2010 Incisional hernia without mention of obstruction or gangrene 09/12/2005 08/12/2014 Symptomatic menopausal or female climacteric sta aniceto 04/07/2003 10/15/2017 Diabetes mellitus type 2 03/02/2003 014 Overview: *Type (): dx type 2 diabetes *Control hx Component Hemoglobin A1C Latest Ref Rng 4.0 - 6.0 % 01/17/2011 6.8 05/08/2011 7.2 07/24/2011 6.8 01/23/2012 6.7 07/27/2012 6.1 (H) 02/18/2013 6.4 (H) 08/08/2013 7.0 (H) 10/13/2013 7.1 (H) 02/17/14 7.3 * Eye hx (10/2008): no DM changes per Dr. Campoverde (07/2013): no DM changes per pt, exam Dr. Campoverde * Renal hx Component Albumin/Creat Ratio Latest Ref Rng 0 - 30 mg/g 04/03/2005 8 05/03/2006 8 03/26/2008 13 01/22/2009 18 02/16/2010 10 07/05/2010 9 05/08/2011 13 08/08/2013 9 * Vascular hx (11/12/13): no hx [place], stroke, Component Latest Ref Rng 02/18/2013 08/12/2013 10/13/2013 Triglyceride 30 - 149 mg/dL 114 123 126 Cholesterol 100 - 199 mg/dL 196 192 187 HDL Cholesterol >55 mg/dL 47 (L) 58 52 (L) VLDL Cholesterol 6 - 40 mg/dL 23 25 25 LDL Cholesterol 60 - 129 mg/dL 126 109 110 Fasting Time FASTING FASTING fasting TC:HDL Ratio 1.00 - 5.00 4.17 3.31 3.60 LDL:HDL Ratio 0.50 - 3.55 2.68 1.88 2.12 Non HDL Cholesterol 90 - 159 mg/dL 149 134 135 * Sleep (11/12/13): has obstructive sleep apnea, uses BiPAP since titration 04/07/13 * Exercise (11/12/13): not exercisnig * Medications (11/12/13): Victoza 1.8 mg daily, metformin 500 mg 2-1-1, * Physician (11/12/13): primary physician is Hayley Malone Morbid obesity 03/02/2003 07/15/2014 HYPERLIPIDEMIA NEC/NOS 5 documented as of this encounter (statuses as of 06/07/2022) [facility] History of Past illness Narrative* Problem Noted Date Resolved Date Postoperative abdominal pain 07/12/202011/2020 Mild protein-calorie malnutrition 06/28/2020 06/29/2020 Infected prosthetic mesh of abdominal wall 06/2006/30/2020 Obesity, Class II, BMI 35-39.9 06/13/2019 1 10/17/2019 SBO (small bowel obstruction) 06/07/2019 Morbid obesity 03/10/2019 06/13/2019 Abnormal cardiovascular stress test 09/11/2017 10/15/2017 Primary osteoarthritis of right hip 11/27/2016 08/18/2020 Trochanteric bursitis of right hip 11/27/2016 08/18/2020 Dyspnea, unspecified 03/08/2016 08/16/2020 Angiomyolipoma of right kidney 01/11/2016 1 Essential hypertension with goal blood pressure less than 140/90 12/13/2015 04/12/2017 Obstructive sleep apnea syndrome 12/13/2015 04/12/2017 Superficial skin infection 08/31/201503/13 CKD stage 3 due to type 2 diabetes mellitus 01/1011/16/2018 Overview: Dr. Lilian Vance, nephrology BMI 45.0-49.9, adult 02/06/2015 12/01/2019 Venous insufficiency 02/06/2015 04/12/2017 DM type 2 causing CKD stage 3 09/21/2014 Overview: Dr Landen Best, endocrinology Degenerative arthritis of hip 07/01/2014 BMI 45.0-49.9, adult 03/31/2014 10/13/2014 Diabetes mellitus type II, uncontrolled 11/26/19 14 02/06/2015 BMI 40.0-44.9, adult 10/14/2013 03/31/2014 Chest pain 09/13/2012 03/13/2016 Overview: Substernal pressure lasting ~5hrs, partially relieved with SLN. Significant risk factors for CAD (HTN, HLD, DM). EKG does to show ST changes. Initial CE at [facility] are supposedly negative. Prior stress test in 2010 was normal. DM well controlled. Currently low likelihood for ACS. - EKG - trend Donald - stress test vs [facility] S/P total knee replacement using cement 07/02/20 12 07/15/2018 Degenerative arthritis of right knee 06/10/2012 08/12/2014 Allergic contact dermatitis due to metals 201108/16/2020 Sensorineural hearing loss, bilateral 07/19/2011 08/16/2020 Diverticulosis 08/23/2010 03/13/2016 Thyroid CA 02/21/2010 08/12/2014 Overview: * Surgery (12/15/09): total thyroidectomy, Dr. Jamey Ibrahim, [facility] * Path (10/29/09): FNA Atypical cells present in a background of cyst contents, suspicious for papillary thyroid carcinoma (12/15/09): single well-circumscribed nodule in the right inferior lobe, which measured 3.5 cm in greatest dimension. The nodule was extensively hemorrhagic and cystic with a rim of viable material which ranges in appearance from papillary architecture to follicular structures. There is no evidence of a higher grade component. There is no definitive lymphovascular space invasion identified. In some areas, the tumor cells have oncocytic cytoplasm, however, the cells do not meet criteria for tall-cell variant of papillary thyroid carcinoma. * SIDDIQI (02/17/10): Rx 131-Iodine 102.4 mCi, Thyrogen-stim * Scan (02/24/10): post-treatment scan (Thyrogen-stim) shows uptake in left neck, also in liver area. SPECT images show one focus of uptake in lateral segment of the left lobe of the liver, one in the medial segment of the left lobe of liver, and one in the posterior segment of the right lobe of the liver. (05/03/11): Thyrogen stim 123-Iodine scan negative * Thyroglobulin Component Thyroglobulin TG Antibody Screen Stimulation Latest Ref Rng 0.8 - 49.0 ng/mL <14.4 IU/mL 11/05/2009 75.7 (H) 1.0 01/18/2010 <0.2 (L) 1.1 02/16/2010 0.3 (L) 1.0 Thyrogen 07/05/2010 <0.2 (L) 1.3 12/27/2010 <0.2 (L) 1.3 05/08/2011 <0.2 (L) 1.1 Thyrogen 07/24/2011 <0.2 (L) 1.5 01/23/2012 <0.2 (L) 1.0 07/27/2012 <0.2 (L) <1.0 02/18/2013 <0.2 (L) <1.0 08/12/2013 <0.2 (L) <1.0 * mRNA (11/03/09): TSH-R mRNA=1.7 ng/ug (11/30/09): TSH-R mRNA=1.8 ng/ug (01/18/10): no TSH-R mRNA assay postop (07/05/10): TSH-R mRNA <1.0 ng/ug (12/27/10): TSH-R mRNA <1.0 ng/ug * Ultrasound (01/18/10): no suspicious adenopathy along great vessels or in lateral neck on either side. No masses in thyroid bed. (12/27/10): no suspicious adenopathy along great vessels or in lateral neck on either side. No masses in thyroid bed. (01/24/12): no suspicious adenopathy along great vessels or in lateral neck on either side. No masses in thyroid bed. (08/11/13): no suspicious adenopathy along great vessels or in lateral neck on either side. No masses in thyroid bed. Thyroid nodule 10/20/2009 03/02/2010 Incisional hernia without mention of obstruction or gangrene 09/12/2005 08/12/2014 Symptomatic menopausal or female climacteric sta aniceto 04/07/2003 10/15/2017 Diabetes mellitus type 2 03/02/2003 014 Overview: *Type (): dx type 2 diabetes *Control hx Component Hemoglobin A1C Latest Ref Rng 4.0 - 6.0 % 01/17/2011 6.8 05/08/2011 7.2 07/24/2011 6.8 01/23/2012 6.7 07/27/2012 6.1 (H) 02/18/2013 6.4 (H) 08/08/2013 7.0 (H) 10/13/2013 7.1 (H) 02/17/14 7.3 * Eye hx (10/2008): no DM changes per Dr. Campoverde (07/2013): no DM changes per pt, exam Dr. Campoverde * Renal hx Component Albumin/Creat Ratio Latest Ref Rng 0 - 30 mg/g 04/03/2005 8 05/03/2006 8 03/26/2008 13 01/22/2009 18 02/16/2010 10 07/05/2010 9 05/08/2011 13 08/08/2013 9 * Vascular hx (11/12/13): no hx [place], stroke, Component Latest Ref Rng 02/18/2013 08/12/2013 10/13/2013 Triglyceride 30 - 149 mg/dL 114 123 126 Cholesterol 100 - 199 mg/dL 196 192 187 HDL Cholesterol >55 mg/dL 47 (L) 58 52 (L) VLDL Cholesterol 6 - 40 mg/dL 23 25 25 LDL Cholesterol 60 - 129 mg/dL 126 109 110 Fasting Time FASTING FASTING fasting TC:HDL Ratio 1.00 - 5.00 4.17 3.31 3.60 LDL:HDL Ratio 0.50 - 3.55 2.68 1.88 2.12 Non HDL Cholesterol 90 - 159 mg/dL 149 134 135 * Sleep (11/12/13): has obstructive sleep apnea, uses BiPAP since titration 04/07/13 * Exercise (11/12/13): not exercisnig * Medications (11/12/13): Victoza 1.8 mg daily, metformin 500 mg 2-1-1, * Physician (11/12/13): primary physician is Hayley Malone Morbid obesity 03/02/2003 07/15/2014 HYPERLIPIDEMIA NEC/NOS 5 documented as of this encounter (statuses as of 06/07/2022) [facility]11-02-2020 History of Past illness Narrative* Problem Noted Date Resolved Date Postoperative abdominal pain 07/12/202011/2020 Mild protein-calorie malnutrition 06/28/2020 06/29/2020 Infected prosthetic mesh of abdominal wall 06/2006/30/2020 Obesity, Class II, BMI 35-39.9 06/13/2019 1 10/17/2019 SBO (small bowel obstruction) 06/07/2019 Morbid obesity 03/10/2019 06/13/2019 Abnormal cardiovascular stress test 09/11/2017 10/15/2017 Primary osteoarthritis of right hip 11/27/2016 08/18/2020 Trochanteric bursitis of right hip 11/27/2016 08/18/2020 Dyspnea, unspecified 03/08/2016 08/16/2020 Angiomyolipoma of right kidney 01/11/2016 1 Essential hypertension with goal blood pressure less than 140/90 12/13/2015 04/12/2017 Obstructive sleep apnea syndrome 12/13/2015 04/12/2017 Superficial skin infection 08/31/201503/13 CKD stage 3 due to type 2 diabetes mellitus 01/1011/16/2018 Overview: Dr. Lilian Vance, nephrology BMI 45.0-49.9, adult 02/06/2015 12/01/2019 Venous insufficiency 02/06/2015 04/12/2017 DM type 2 causing CKD stage 3 09/21/2014 Overview: Dr Landen Best, endocrinology Degenerative arthritis of hip 07/01/2014 BMI 45.0-49.9, adult 03/31/2014 10/13/2014 Diabetes mellitus type II, uncontrolled 11/26/19 14 02/06/2015 BMI 40.0-44.9, adult 10/14/2013 03/31/2014 Chest pain 09/13/2012 03/13/2016 Overview: Substernal pressure lasting ~5hrs, partially relieved with SLN. Significant risk factors for CAD (HTN, HLD, DM). EKG does to show ST changes. Initial CE at [facility] are supposedly negative. Prior stress test in 2010 was normal. DM well controlled. Currently low likelihood for ACS. - EKG - trend Donald - stress test vs [facility] S/P total knee replacement using cement 07/02/20 12 07/15/2018 Degenerative arthritis of right knee 06/10/2012 08/12/2014 Allergic contact dermatitis due to metals 201108/16/2020 Sensorineural hearing loss, bilateral 07/19/2011 08/16/2020 Diverticulosis 08/23/2010 03/13/2016 Thyroid CA 02/21/2010 08/12/2014 Overview: * Surgery (12/15/09): total thyroidectomy, Dr. Jamey Ibrahim, [facility] * Path (10/29/09): FNA Atypical cells present in a background of cyst contents, suspicious for papillary thyroid carcinoma (12/15/09): single well-circumscribed nodule in the right inferior lobe, which measured 3.5 cm in greatest dimension. The nodule was extensively hemorrhagic and cystic with a rim of viable material which ranges in appearance from papillary architecture to follicular structures. There is no evidence of a higher grade component. There is no definitive lymphovascular space invasion identified. In some areas, the tumor cells have oncocytic cytoplasm, however, the cells do not meet criteria for tall-cell variant of papillary thyroid carcinoma. * SIDDIQI (02/17/10): Rx 131-Iodine 102.4 mCi, Thyrogen-stim * Scan (02/24/10): post-treatment scan (Thyrogen-stim) shows uptake in left neck, also in liver area. SPECT images show one focus of uptake in lateral segment of the left lobe of the liver, one in the medial segment of the left lobe of liver, and one in the posterior segment of the right lobe of the liver. (05/03/11): Thyrogen stim 123-Iodine scan negative * Thyroglobulin Component Thyroglobulin TG Antibody Screen Stimulation Latest Ref Rng 0.8 - 49.0 ng/mL <14.4 IU/mL 11/05/2009 75.7 (H) 1.0 01/18/2010 <0.2 (L) 1.1 02/16/2010 0.3 (L) 1.0 Thyrogen 07/05/2010 <0.2 (L) 1.3 12/27/2010 <0.2 (L) 1.3 05/08/2011 <0.2 (L) 1.1 Thyrogen 07/24/2011 <0.2 (L) 1.5 01/23/2012 <0.2 (L) 1.0 07/27/2012 <0.2 (L) <1.0 02/18/2013 <0.2 (L) <1.0 08/12/2013 <0.2 (L) <1.0 * mRNA (11/03/09): TSH-R mRNA=1.7 ng/ug (11/30/09): TSH-R mRNA=1.8 ng/ug (01/18/10): no TSH-R mRNA assay postop (07/05/10): TSH-R mRNA <1.0 ng/ug (12/27/10): TSH-R mRNA <1.0 ng/ug * Ultrasound (01/18/10): no suspicious adenopathy along great vessels or in lateral neck on either side. No masses in thyroid bed. (12/27/10): no suspicious adenopathy along great vessels or in lateral neck on either side. No masses in thyroid bed. (01/24/12): no suspicious adenopathy along great vessels or in lateral neck on either side. No masses in thyroid bed. (08/11/13): no suspicious adenopathy along great vessels or in lateral neck on either side. No masses in thyroid bed. Thyroid nodule 10/20/2009 03/02/2010 Incisional hernia without mention of obstruction or gangrene 09/12/2005 08/12/2014 Symptomatic menopausal or female climacteric sta aniceto 04/07/2003 10/15/2017 Diabetes mellitus type 2 03/02/2003 014 Overview: *Type (): dx type 2 diabetes *Control hx Component Hemoglobin A1C Latest Ref Rng 4.0 - 6.0 % 01/17/2011 6.8 05/08/2011 7.2 07/24/2011 6.8 01/23/2012 6.7 07/27/2012 6.1 (H) 02/18/2013 6.4 (H) 08/08/2013 7.0 (H) 10/13/2013 7.1 (H) 02/17/14 7.3 * Eye hx (10/2008): no DM changes per Dr. Campoverde (07/2013): no DM changes per pt, exam Dr. Campoverde * Renal hx Component Albumin/Creat Ratio Latest Ref Rng 0 - 30 mg/g 04/03/2005 8 05/03/2006 8 03/26/2008 13 01/22/2009 18 02/16/2010 10 07/05/2010 9 05/08/2011 13 08/08/2013 9 * Vascular hx (11/12/13): no hx [place], stroke, Component Latest Ref Rng 02/18/2013 08/12/2013 10/13/2013 Triglyceride 30 - 149 mg/dL 114 123 126 Cholesterol 100 - 199 mg/dL 196 192 187 HDL Cholesterol >55 mg/dL 47 (L) 58 52 (L) VLDL Cholesterol 6 - 40 mg/dL 23 25 25 LDL Cholesterol 60 - 129 mg/dL 126 109 110 Fasting Time FASTING FASTING fasting TC:HDL Ratio 1.00 - 5.00 4.17 3.31 3.60 LDL:HDL Ratio 0.50 - 3.55 2.68 1.88 2.12 Non HDL Cholesterol 90 - 159 mg/dL 149 134 135 * Sleep (11/12/13): has obstructive sleep apnea, uses BiPAP since titration 04/07/13 * Exercise (11/12/13): not exercisnig * Medications (11/12/13): Victoza 1.8 mg daily, metformin 500 mg 2-1-1, * Physician (11/12/13): primary physician is Hayley Oliva obesity 03/02/2003 07/15/2014 HYPERLIPIDEMIA NEC/NOS 5 documented as of this encounter (statuses as of 06/09/2022) [facility]11-02-2020 History of Past illness Narrative* Problem Noted Date Resolved Date Postoperative abdominal pain 07/12/202011/2020 Mild protein-calorie malnutrition 06/28/2020 06/29/2020 Infected prosthetic mesh of abdominal wall 06/2006/30/2020 Obesity, Class II, BMI 35-39.9 06/13/2019 1 10/17/2019 SBO (small bowel obstruction) 06/07/2019 Morbid obesity 03/10/2019 06/13/2019 Abnormal cardiovascular stress test 09/11/2017 10/15/2017 Primary osteoarthritis of right hip 11/27/2016 08/18/2020 Trochanteric bursitis of right hip 11/27/2016 08/18/2020 Dyspnea, unspecified 03/08/2016 08/16/2020 Angiomyolipoma of right kidney 01/11/2016 1 Essential hypertension with goal blood pressure less than 140/90 12/13/2015 04/12/2017 Obstructive sleep apnea syndrome 12/13/2015 04/12/2017 Superficial skin infection 08/31/201503/13 CKD stage 3 due to type 2 diabetes mellitus 01/1011/16/2018 Overview: Dr. Lilian Vance, nephrology BMI 45.0-49.9, adult 02/06/2015 12/01/2019 Venous insufficiency 02/06/2015 04/12/2017 DM type 2 causing CKD stage 3 09/21/2014 Overview: Dr Landen Best, endocrinology Degenerative arthritis of hip 07/01/2014 BMI 45.0-49.9, adult 03/31/2014 10/13/2014 Diabetes mellitus type II, uncontrolled 11/26/19 14 02/06/2015 BMI 40.0-44.9, adult 10/14/2013 03/31/2014 Chest pain 09/13/2012 03/13/2016 Overview: Substernal pressure lasting ~5hrs, partially relieved with SLN. Significant risk factors for CAD (HTN, HLD, DM). EKG does to show ST changes. Initial CE at [facility] are supposedly negative. Prior stress test in 2010 was normal. DM well controlled. Currently low likelihood for ACS. - EKG - trend Donald - stress test vs [facility] S/P total knee replacement using cement 07/02/20 12 07/15/2018 Degenerative arthritis of right knee 06/10/2012 08/12/2014 Allergic contact dermatitis due to metals 201108/16/2020 Sensorineural hearing loss, bilateral 07/19/2011 08/16/2020 Diverticulosis 08/23/2010 03/13/2016 Thyroid CA 02/21/2010 08/12/2014 Overview: * Surgery (12/15/09): total thyroidectomy, Dr. Jamey Ibrahim, [facility] * Path (10/29/09): FNA Atypical cells present in a background of cyst contents, suspicious for papillary thyroid carcinoma (12/15/09): single well-circumscribed nodule in the right inferior lobe, which measured 3.5 cm in greatest dimension. The nodule was extensively hemorrhagic and cystic with a rim of viable material which ranges in appearance from papillary architecture to follicular structures. There is no evidence of a higher grade component. There is no definitive lymphovascular space invasion identified. In some areas, the tumor cells have oncocytic cytoplasm, however, the cells do not meet criteria for tall-cell variant of papillary thyroid carcinoma. * SIDDIQI (02/17/10): Rx 131-Iodine 102.4 mCi, Thyrogen-stim * Scan (02/24/10): post-treatment scan (Thyrogen-stim) shows uptake in left neck, also in liver area. SPECT images show one focus of uptake in lateral segment of the left lobe of the liver, one in the medial segment of the left lobe of liver, and one in the posterior segment of the right lobe of the liver. (05/03/11): Thyrogen stim 123-Iodine scan negative * Thyroglobulin Component Thyroglobulin TG Antibody Screen Stimulation Latest Ref Rng 0.8 - 49.0 ng/mL <14.4 IU/mL 11/05/2009 75.7 (H) 1.0 01/18/2010 <0.2 (L) 1.1 02/16/2010 0.3 (L) 1.0 Thyrogen 07/05/2010 <0.2 (L) 1.3 12/27/2010 <0.2 (L) 1.3 05/08/2011 <0.2 (L) 1.1 Thyrogen 07/24/2011 <0.2 (L) 1.5 01/23/2012 <0.2 (L) 1.0 07/27/2012 <0.2 (L) <1.0 02/18/2013 <0.2 (L) <1.0 08/12/2013 <0.2 (L) <1.0 * mRNA (11/03/09): TSH-R mRNA=1.7 ng/ug (11/30/09): TSH-R mRNA=1.8 ng/ug (01/18/10): no TSH-R mRNA assay postop (07/05/10): TSH-R mRNA <1.0 ng/ug (12/27/10): TSH-R mRNA <1.0 ng/ug * Ultrasound (01/18/10): no suspicious adenopathy along great vessels or in lateral neck on either side. No masses in thyroid bed. (12/27/10): no suspicious adenopathy along great vessels or in lateral neck on either side. No masses in thyroid bed. (01/24/12): no suspicious adenopathy along great vessels or in lateral neck on either side. No masses in thyroid bed. (08/11/13): no suspicious adenopathy along great vessels or in lateral neck on either side. No masses in thyroid bed. Thyroid nodule 10/20/2009 03/02/2010 Incisional hernia without mention of obstruction or gangrene 09/12/2005 08/12/2014 Symptomatic menopausal or female climacteric sta aniceto 04/07/2003 10/15/2017 Diabetes mellitus type 2 03/02/2003 014 Overview: *Type (): dx type 2 diabetes *Control hx Component Hemoglobin A1C Latest Ref Rng 4.0 - 6.0 % 01/17/2011 6.8 05/08/2011 7.2 07/24/2011 6.8 01/23/2012 6.7 07/27/2012 6.1 (H) 02/18/2013 6.4 (H) 08/08/2013 7.0 (H) 10/13/2013 7.1 (H) 02/17/14 7.3 * Eye hx (10/2008): no DM changes per Dr. Campoverde (07/2013): no DM changes per pt, exam Dr. Campoverde * Renal hx Component Albumin/Creat Ratio Latest Ref Rng 0 - 30 mg/g 04/03/2005 8 05/03/2006 8 03/26/2008 13 01/22/2009 18 02/16/2010 10 07/05/2010 9 05/08/2011 13 08/08/2013 9 * Vascular hx (11/12/13): no hx [place], stroke, Component Latest Ref Rng 02/18/2013 08/12/2013 10/13/2013 Triglyceride 30 - 149 mg/dL 114 123 126 Cholesterol 100 - 199 mg/dL 196 192 187 HDL Cholesterol >55 mg/dL 47 (L) 58 52 (L) VLDL Cholesterol 6 - 40 mg/dL 23 25 25 LDL Cholesterol 60 - 129 mg/dL 126 109 110 Fasting Time FASTING FASTING fasting TC:HDL Ratio 1.00 - 5.00 4.17 3.31 3.60 LDL:HDL Ratio 0.50 - 3.55 2.68 1.88 2.12 Non HDL Cholesterol 90 - 159 mg/dL 149 134 135 * Sleep (11/12/13): has obstructive sleep apnea, uses BiPAP since titration 04/07/13 * Exercise (11/12/13): not exercisnig * Medications (11/12/13): Victoza 1.8 mg daily, metformin 500 mg 2-1-1, * Physician (11/12/13): primary physician is Hayley Malone Morbid obesity 03/02/2003 07/15/2014 HYPERLIPIDEMIA NEC/NOS 5 documented as of this encounter (statuses as of 06/28/2022) [facility]2020 History of Past illness Narrative* Problem Noted Date Resolved Date Postoperative abdominal pain 07/12/202011/2020 Mild protein-calorie malnutrition 06/28/2020 06/29/2020 Infected prosthetic mesh of abdominal wall 06/2006/30/2020 Obesity, Class II, BMI 35-39.9 06/13/2019 1 10/17/2019 SBO (small bowel obstruction) 06/07/2019 Morbid obesity 03/10/2019 06/13/2019 Abnormal cardiovascular stress test 09/11/2017 10/15/2017 Primary osteoarthritis of right hip 11/27/2016 08/18/2020 Trochanteric bursitis of right hip 11/27/2016 08/18/2020 Dyspnea, unspecified 03/08/2016 08/16/2020 Angiomyolipoma of right kidney 01/11/2016 1 Essential hypertension with goal blood pressure less than 140/90 12/13/2015 04/12/2017 Obstructive sleep apnea syndrome 12/13/2015 04/12/2017 Superficial skin infection 08/31/201503/13 CKD stage 3 due to type 2 diabetes mellitus 01/1011/16/2018 Overview: Dr. Lilian Vance, nephrology BMI 45.0-49.9, adult 02/06/2015 12/01/2019 Venous insufficiency 02/06/2015 04/12/2017 DM type 2 causing CKD stage 3 09/21/2014 Overview: Dr Landen Best, endocrinology Degenerative arthritis of hip 07/01/2014 BMI 45.0-49.9, adult 03/31/2014 10/13/2014 Diabetes mellitus type II, uncontrolled 11/26/19 14 02/06/2015 BMI 40.0-44.9, adult 10/14/2013 03/31/2014 Chest pain 09/13/2012 03/13/2016 Overview: Substernal pressure lasting ~5hrs, partially relieved with SLN. Significant risk factors for CAD (HTN, HLD, DM). EKG does to show ST changes. Initial CE at [facility] are supposedly negative. Prior stress test in 2010 was normal. DM well controlled. Currently low likelihood for ACS. - EKG - trend Donald - stress test vs [facility] S/P total knee replacement using cement 07/02/20 12 07/15/2018 Degenerative arthritis of right knee 06/10/2012 08/12/2014 Allergic contact dermatitis due to metals 201108/16/2020 Sensorineural hearing loss, bilateral 07/19/2011 08/16/2020 Diverticulosis 08/23/2010 03/13/2016 Thyroid CA 02/21/2010 08/12/2014 Overview: * Surgery (12/15/09): total thyroidectomy, Dr. Jamey Ibrahim, [facility] * Path (10/29/09): FNA Atypical cells present in a background of cyst contents, suspicious for papillary thyroid carcinoma (12/15/09): single well-circumscribed nodule in the right inferior lobe, which measured 3.5 cm in greatest dimension. The nodule was extensively hemorrhagic and cystic with a rim of viable material which ranges in appearance from papillary architecture to follicular structures. There is no evidence of a higher grade component. There is no definitive lymphovascular space invasion identified. In some areas, the tumor cells have oncocytic cytoplasm, however, the cells do not meet criteria for tall-cell variant of papillary thyroid carcinoma. * SIDDIQI (02/17/10): Rx 131-Iodine 102.4 mCi, Thyrogen-stim * Scan (02/24/10): post-treatment scan (Thyrogen-stim) shows uptake in left neck, also in liver area. SPECT images show one focus of uptake in lateral segment of the left lobe of the liver, one in the medial segment of the left lobe of liver, and one in the posterior segment of the right lobe of the liver. (05/03/11): Thyrogen stim 123-Iodine scan negative * Thyroglobulin Component Thyroglobulin TG Antibody Screen Stimulation Latest Ref Rng 0.8 - 49.0 ng/mL <14.4 IU/mL 11/05/2009 75.7 (H) 1.0 01/18/2010 <0.2 (L) 1.1 02/16/2010 0.3 (L) 1.0 Thyrogen 07/05/2010 <0.2 (L) 1.3 12/27/2010 <0.2 (L) 1.3 05/08/2011 <0.2 (L) 1.1 Thyrogen 07/24/2011 <0.2 (L) 1.5 01/23/2012 <0.2 (L) 1.0 07/27/2012 <0.2 (L) <1.0 02/18/2013 <0.2 (L) <1.0 08/12/2013 <0.2 (L) <1.0 * mRNA (11/03/09): TSH-R mRNA=1.7 ng/ug (11/30/09): TSH-R mRNA=1.8 ng/ug (01/18/10): no TSH-R mRNA assay postop (07/05/10): TSH-R mRNA <1.0 ng/ug (12/27/10): TSH-R mRNA <1.0 ng/ug * Ultrasound (01/18/10): no suspicious adenopathy along great vessels or in lateral neck on either side. No masses in thyroid bed. (12/27/10): no suspicious adenopathy along great vessels or in lateral neck on either side. No masses in thyroid bed. (01/24/12): no suspicious adenopathy along great vessels or in lateral neck on either side. No masses in thyroid bed. (08/11/13): no suspicious adenopathy along great vessels or in lateral neck on either side. No masses in thyroid bed. Thyroid nodule 10/20/2009 03/02/2010 Incisional hernia without mention of obstruction or gangrene 09/12/2005 08/12/2014 Symptomatic menopausal or female climacteric sta aniceto 04/07/2003 10/15/2017 Diabetes mellitus type 2 03/02/2003 014 Overview: *Type (): dx type 2 diabetes *Control hx Component Hemoglobin A1C Latest Ref Rng 4.0 - 6.0 % 01/17/2011 6.8 05/08/2011 7.2 07/24/2011 6.8 01/23/2012 6.7 07/27/2012 6.1 (H) 02/18/2013 6.4 (H) 08/08/2013 7.0 (H) 10/13/2013 7.1 (H) 02/17/14 7.3 * Eye hx (10/2008): no DM changes per Dr. Campoverde (07/2013): no DM changes per pt, exam Dr. Campoverde * Renal hx Component Albumin/Creat Ratio Latest Ref Rng 0 - 30 mg/g 04/03/2005 8 05/03/2006 8 03/26/2008 13 01/22/2009 18 02/16/2010 10 07/05/2010 9 05/08/2011 13 08/08/2013 9 * Vascular hx (11/12/13): no hx [place], stroke, Component Latest Ref Rng 02/18/2013 08/12/2013 10/13/2013 Triglyceride 30 - 149 mg/dL 114 123 126 Cholesterol 100 - 199 mg/dL 196 192 187 HDL Cholesterol >55 mg/dL 47 (L) 58 52 (L) VLDL Cholesterol 6 - 40 mg/dL 23 25 25 LDL Cholesterol 60 - 129 mg/dL 126 109 110 Fasting Time FASTING FASTING fasting TC:HDL Ratio 1.00 - 5.00 4.17 3.31 3.60 LDL:HDL Ratio 0.50 - 3.55 2.68 1.88 2.12 Non HDL Cholesterol 90 - 159 mg/dL 149 134 135 * Sleep (11/12/13): has obstructive sleep apnea, uses BiPAP since titration 04/07/13 * Exercise (11/12/13): not exercisnig * Medications (11/12/13): Victoza 1.8 mg daily, metformin 500 mg 2-1-1, * Physician (11/12/13): primary physician is Hayley Malone Morbid obesity 03/02/2003 07/15/2014 HYPERLIPIDEMIA NEC/NOS 5 documented as of this encounter (statuses as of 07/03/2022) [facility] History of Past illness Narrative* Problem Noted Date Resolved Date Postoperative abdominal pain 07/12/202011/2020 Mild protein-calorie malnutrition 06/28/2020 06/29/2020 Infected prosthetic mesh of abdominal wall 06/2006/30/2020 Obesity, Class II, BMI 35-39.9 06/13/2019 1 10/17/2019 SBO (small bowel obstruction) 06/07/2019 Morbid obesity 03/10/2019 06/13/2019 Abnormal cardiovascular stress test 09/11/2017 10/15/2017 Primary osteoarthritis of right hip 11/27/2016 08/18/2020 Trochanteric bursitis of right hip 11/27/2016 08/18/2020 Dyspnea, unspecified 03/08/2016 08/16/2020 Angiomyolipoma of right kidney 01/11/2016 1 Essential hypertension with goal blood pressure less than 140/90 12/13/2015 04/12/2017 Obstructive sleep apnea syndrome 12/13/2015 04/12/2017 Superficial skin infection 08/31/201503/13 CKD stage 3 due to type 2 diabetes mellitus 01/1011/16/2018 Overview: Dr. Lilian Vance, nephrology BMI 45.0-49.9, adult 02/06/2015 12/01/2019 Venous insufficiency 02/06/2015 04/12/2017 DM type 2 causing CKD stage 3 09/21/2014 Overview: Dr Landen Best, endocrinology Degenerative arthritis of hip 07/01/2014 BMI 45.0-49.9, adult 03/31/2014 10/13/2014 Diabetes mellitus type II, uncontrolled 11/26/19 14 02/06/2015 BMI 40.0-44.9, adult 10/14/2013 03/31/2014 Chest pain 09/13/2012 03/13/2016 Overview: Substernal pressure lasting ~5hrs, partially relieved with SLN. Significant risk factors for CAD (HTN, HLD, DM). EKG does to show ST changes. Initial CE at [facility] are supposedly negative. Prior stress test in 2010 was normal. DM well controlled. Currently low likelihood for ACS. - EKG - trend Donald - stress test vs [facility] S/P total knee replacement using cement 07/02/20 12 07/15/2018 Degenerative arthritis of right knee 06/10/2012 08/12/2014 Allergic contact dermatitis due to metals 201108/16/2020 Sensorineural hearing loss, bilateral 07/19/2011 08/16/2020 Diverticulosis 08/23/2010 03/13/2016 Thyroid CA 02/21/2010 08/12/2014 Overview: * Surgery (12/15/09): total thyroidectomy, Dr. Jamey Ibrahim, [facility] * Path (10/29/09): FNA Atypical cells present in a background of cyst contents, suspicious for papillary thyroid carcinoma (12/15/09): single well-circumscribed nodule in the right inferior lobe, which measured 3.5 cm in greatest dimension. The nodule was extensively hemorrhagic and cystic with a rim of viable material which ranges in appearance from papillary architecture to follicular structures. There is no evidence of a higher grade component. There is no definitive lymphovascular space invasion identified. In some areas, the tumor cells have oncocytic cytoplasm, however, the cells do not meet criteria for tall-cell variant of papillary thyroid carcinoma. * SIDDIQI (02/17/10): Rx 131-Iodine 102.4 mCi, Thyrogen-stim * Scan (02/24/10): post-treatment scan (Thyrogen-stim) shows uptake in left neck, also in liver area. SPECT images show one focus of uptake in lateral segment of the left lobe of the liver, one in the medial segment of the left lobe of liver, and one in the posterior segment of the right lobe of the liver. (05/03/11): Thyrogen stim 123-Iodine scan negative * Thyroglobulin Component Thyroglobulin TG Antibody Screen Stimulation Latest Ref Rng 0.8 - 49.0 ng/mL <14.4 IU/mL 11/05/2009 75.7 (H) 1.0 01/18/2010 <0.2 (L) 1.1 02/16/2010 0.3 (L) 1.0 Thyrogen 07/05/2010 <0.2 (L) 1.3 12/27/2010 <0.2 (L) 1.3 05/08/2011 <0.2 (L) 1.1 Thyrogen 07/24/2011 <0.2 (L) 1.5 01/23/2012 <0.2 (L) 1.0 07/27/2012 <0.2 (L) <1.0 02/18/2013 <0.2 (L) <1.0 08/12/2013 <0.2 (L) <1.0 * mRNA (11/03/09): TSH-R mRNA=1.7 ng/ug (11/30/09): TSH-R mRNA=1.8 ng/ug (01/18/10): no TSH-R mRNA assay postop (07/05/10): TSH-R mRNA <1.0 ng/ug (12/27/10): TSH-R mRNA <1.0 ng/ug * Ultrasound (01/18/10): no suspicious adenopathy along great vessels or in lateral neck on either side. No masses in thyroid bed. (12/27/10): no suspicious adenopathy along great vessels or in lateral neck on either side. No masses in thyroid bed. (01/24/12): no suspicious adenopathy along great vessels or in lateral neck on either side. No masses in thyroid bed. (08/11/13): no suspicious adenopathy along great vessels or in lateral neck on either side. No masses in thyroid bed. Thyroid nodule 10/20/2009 03/02/2010 Incisional hernia without mention of obstruction or gangrene 09/12/2005 08/12/2014 Symptomatic menopausal or female climacteric sta aniceto 04/07/2003 10/15/2017 Diabetes mellitus type 2 03/02/2003 014 Overview: *Type (): dx type 2 diabetes *Control hx Component Hemoglobin A1C Latest Ref Rng 4.0 - 6.0 % 01/17/2011 6.8 05/08/2011 7.2 07/24/2011 6.8 01/23/2012 6.7 07/27/2012 6.1 (H) 02/18/2013 6.4 (H) 08/08/2013 7.0 (H) 10/13/2013 7.1 (H) 02/17/14 7.3 * Eye hx (10/2008): no DM changes per Dr. Campoverde (07/2013): no DM changes per pt, exam Dr. Campoverde * Renal hx Component Albumin/Creat Ratio Latest Ref Rng 0 - 30 mg/g 04/03/2005 8 05/03/2006 8 03/26/2008 13 01/22/2009 18 02/16/2010 10 07/05/2010 9 05/08/2011 13 08/08/2013 9 * Vascular hx (11/12/13): no hx [place], stroke, Component Latest Ref Rng 02/18/2013 08/12/2013 10/13/2013 Triglyceride 30 - 149 mg/dL 114 123 126 Cholesterol 100 - 199 mg/dL 196 192 187 HDL Cholesterol >55 mg/dL 47 (L) 58 52 (L) VLDL Cholesterol 6 - 40 mg/dL 23 25 25 LDL Cholesterol 60 - 129 mg/dL 126 109 110 Fasting Time FASTING FASTING fasting TC:HDL Ratio 1.00 - 5.00 4.17 3.31 3.60 LDL:HDL Ratio 0.50 - 3.55 2.68 1.88 2.12 Non HDL Cholesterol 90 - 159 mg/dL 149 134 135 * Sleep (11/12/13): has obstructive sleep apnea, uses BiPAP since titration 04/07/13 * Exercise (11/12/13): not exercisnig * Medications (11/12/13): Victoza 1.8 mg daily, metformin 500 mg 2-1-1, * Physician (11/12/13): primary physician is Hayley Malone Morbid obesity 03/02/2003 07/15/2014 HYPERLIPIDEMIA NEC/NOS 5 documented as of this encounter (statuses as of 07/04/2022) [facility]11-02-2020 History of Past illness Narrative* Problem Noted Date Resolved Date Postoperative abdominal pain 07/12/202011/2020 Mild protein-calorie malnutrition 06/28/2020 06/29/2020 Infected prosthetic mesh of abdominal wall 06/2006/30/2020 Obesity, Class II, BMI 35-39.9 06/13/2019 1 10/17/2019 SBO (small bowel obstruction) 06/07/2019 Morbid obesity 03/10/2019 06/13/2019 Abnormal cardiovascular stress test 09/11/2017 10/15/2017 Primary osteoarthritis of right hip 11/27/2016 08/18/2020 Trochanteric bursitis of right hip 11/27/2016 08/18/2020 Dyspnea, unspecified 03/08/2016 08/16/2020 Angiomyolipoma of right kidney 01/11/2016 1 Essential hypertension with goal blood pressure less than 140/90 12/13/2015 04/12/2017 Obstructive sleep apnea syndrome 12/13/2015 04/12/2017 Superficial skin infection 08/31/201503/13 CKD stage 3 due to type 2 diabetes mellitus 01/1011/16/2018 Overview: Dr. Lilian Vance, nephrology BMI 45.0-49.9, adult 02/06/2015 12/01/2019 Venous insufficiency 02/06/2015 04/12/2017 DM type 2 causing CKD stage 3 09/21/2014 Overview: Dr Landen Best, endocrinology Degenerative arthritis of hip 07/01/2014 BMI 45.0-49.9, adult 03/31/2014 10/13/2014 Diabetes mellitus type II, uncontrolled 11/26/19 14 02/06/2015 BMI 40.0-44.9, adult 10/14/2013 03/31/2014 Chest pain 09/13/2012 03/13/2016 Overview: Substernal pressure lasting ~5hrs, partially relieved with SLN. Significant risk factors for CAD (HTN, HLD, DM). EKG does to show ST changes. Initial CE at [facility] are supposedly negative. Prior stress test in 2010 was normal. DM well controlled. Currently low likelihood for ACS. - EKG - trend Donald - stress test vs [facility] S/P total knee replacement using cement 07/02/20 12 07/15/2018 Degenerative arthritis of right knee 06/10/2012 08/12/2014 Allergic contact dermatitis due to metals 201108/16/2020 Sensorineural hearing loss, bilateral 07/19/2011 08/16/2020 Diverticulosis 08/23/2010 03/13/2016 Thyroid CA 02/21/2010 08/12/2014 Overview: * Surgery (12/15/09): total thyroidectomy, Dr. Jamey Ibrahim, [facility] * Path (10/29/09): FNA Atypical cells present in a background of cyst contents, suspicious for papillary thyroid carcinoma (12/15/09): single well-circumscribed nodule in the right inferior lobe, which measured 3.5 cm in greatest dimension. The nodule was extensively hemorrhagic and cystic with a rim of viable material which ranges in appearance from papillary architecture to follicular structures. There is no evidence of a higher grade component. There is no definitive lymphovascular space invasion identified. In some areas, the tumor cells have oncocytic cytoplasm, however, the cells do not meet criteria for tall-cell variant of papillary thyroid carcinoma. * SIDDIQI (02/17/10): Rx 131-Iodine 102.4 mCi, Thyrogen-stim * Scan (02/24/10): post-treatment scan (Thyrogen-stim) shows uptake in left neck, also in liver area. SPECT images show one focus of uptake in lateral segment of the left lobe of the liver, one in the medial segment of the left lobe of liver, and one in the posterior segment of the right lobe of the liver. (05/03/11): Thyrogen stim 123-Iodine scan negative * Thyroglobulin Component Thyroglobulin TG Antibody Screen Stimulation Latest Ref Rng 0.8 - 49.0 ng/mL <14.4 IU/mL 11/05/2009 75.7 (H) 1.0 01/18/2010 <0.2 (L) 1.1 02/16/2010 0.3 (L) 1.0 Thyrogen 07/05/2010 <0.2 (L) 1.3 12/27/2010 <0.2 (L) 1.3 05/08/2011 <0.2 (L) 1.1 Thyrogen 07/24/2011 <0.2 (L) 1.5 01/23/2012 <0.2 (L) 1.0 07/27/2012 <0.2 (L) <1.0 02/18/2013 <0.2 (L) <1.0 08/12/2013 <0.2 (L) <1.0 * mRNA (11/03/09): TSH-R mRNA=1.7 ng/ug (11/30/09): TSH-R mRNA=1.8 ng/ug (01/18/10): no TSH-R mRNA assay postop (07/05/10): TSH-R mRNA <1.0 ng/ug (12/27/10): TSH-R mRNA <1.0 ng/ug * Ultrasound (01/18/10): no suspicious adenopathy along great vessels or in lateral neck on either side. No masses in thyroid bed. (12/27/10): no suspicious adenopathy along great vessels or in lateral neck on either side. No masses in thyroid bed. (01/24/12): no suspicious adenopathy along great vessels or in lateral neck on either side. No masses in thyroid bed. (08/11/13): no suspicious adenopathy along great vessels or in lateral neck on either side. No masses in thyroid bed. Thyroid nodule 10/20/2009 03/02/2010 Incisional hernia without mention of obstruction or gangrene 09/12/2005 08/12/2014 Symptomatic menopausal or female climacteric sta aniceto 04/07/2003 10/15/2017 Diabetes mellitus type 2 03/02/2003 014 Overview: *Type (): dx type 2 diabetes *Control hx Component Hemoglobin A1C Latest Ref Rng 4.0 - 6.0 % 01/17/2011 6.8 05/08/2011 7.2 07/24/2011 6.8 01/23/2012 6.7 07/27/2012 6.1 (H) 02/18/2013 6.4 (H) 08/08/2013 7.0 (H) 10/13/2013 7.1 (H) 02/17/14 7.3 * Eye hx (10/2008): no DM changes per Dr. Campoverde (07/2013): no DM changes per pt, exam Dr. Campoverde * Renal hx Component Albumin/Creat Ratio Latest Ref Rng 0 - 30 mg/g 04/03/2005 8 05/03/2006 8 03/26/2008 13 01/22/2009 18 02/16/2010 10 07/05/2010 9 05/08/2011 13 08/08/2013 9 * Vascular hx (11/12/13): no hx [place], stroke, Component Latest Ref Rng 02/18/2013 08/12/2013 10/13/2013 Triglyceride 30 - 149 mg/dL 114 123 126 Cholesterol 100 - 199 mg/dL 196 192 187 HDL Cholesterol >55 mg/dL 47 (L) 58 52 (L) VLDL Cholesterol 6 - 40 mg/dL 23 25 25 LDL Cholesterol 60 - 129 mg/dL 126 109 110 Fasting Time FASTING FASTING fasting TC:HDL Ratio 1.00 - 5.00 4.17 3.31 3.60 LDL:HDL Ratio 0.50 - 3.55 2.68 1.88 2.12 Non HDL Cholesterol 90 - 159 mg/dL 149 134 135 * Sleep (11/12/13): has obstructive sleep apnea, uses BiPAP since titration 04/07/13 * Exercise (11/12/13): not exercisnig * Medications (11/12/13): Victoza 1.8 mg daily, metformin 500 mg 2-1-1, * Physician (11/12/13): primary physician is Hayley Malone Morbid obesity 03/02/2003 07/15/2014 HYPERLIPIDEMIA NEC/NOS 5 documented as of this encounter (statuses as of 07/19/2022) [facility]11-[facility]-2020 History of Past illness Narrative* Problem Noted Date Resolved Date Postoperative abdominal pain 07/12/202011/2020 Mild protein-calorie malnutrition 06/28/2020 06/29/2020 Infected prosthetic mesh of abdominal wall 06/2006/30/2020 Obesity, Class II, BMI 35-39.9 06/13/2019 1 10/17/2019 SBO (small bowel obstruction) 06/07/2019 Morbid obesity 03/10/2019 06/13/2019 Abnormal cardiovascular stress test 09/11/2017 10/15/2017 Primary osteoarthritis of right hip 11/27/2016 08/18/2020 Trochanteric bursitis of right hip 11/27/2016 08/18/2020 Dyspnea, unspecified 03/08/2016 08/16/2020 Angiomyolipoma of right kidney 01/11/2016 1 Essential hypertension with goal blood pressure less than 140/90 12/13/2015 04/12/2017 Obstructive sleep apnea syndrome 12/13/2015 04/12/2017 Superficial skin infection 08/31/201503/13 CKD stage 3 due to type 2 diabetes mellitus 01/1011/16/2018 Overview: Dr. Lilian Vance, nephrology BMI 45.0-49.9, adult 02/06/2015 12/01/2019 Venous insufficiency 02/06/2015 04/12/2017 DM type 2 causing CKD stage 3 09/21/2014 Overview: Dr Landen Best, endocrinology Degenerative arthritis of hip 07/01/2014 BMI 45.0-49.9, adult 03/31/2014 10/13/2014 Diabetes mellitus type II, uncontrolled 11/26/19 14 02/06/2015 BMI 40.0-44.9, adult 10/14/2013 03/31/2014 Chest pain 09/13/2012 03/13/2016 Overview: Substernal pressure lasting ~5hrs, partially relieved with SLN. Significant risk factors for CAD (HTN, HLD, DM). EKG does to show ST changes. Initial CE at [facility] are supposedly negative. Prior stress test in 2010 was normal. DM well controlled. Currently low likelihood for ACS. - EKG - trend Donald - stress test vs [facility] S/P total knee replacement using cement 07/02/20 12 07/15/2018 Degenerative arthritis of right knee 06/10/2012 08/12/2014 Allergic contact dermatitis due to metals 201108/16/2020 Sensorineural hearing loss, bilateral 07/19/2011 08/16/2020 Diverticulosis 08/23/2010 03/13/2016 Thyroid CA 02/21/2010 08/12/2014 Overview: * Surgery (12/15/09): total thyroidectomy, Dr. Jamey Ibrahim, [facility] * Path (10/29/09): FNA Atypical cells present in a background of cyst contents, suspicious for papillary thyroid carcinoma (12/15/09): single well-circumscribed nodule in the right inferior lobe, which measured 3.5 cm in greatest dimension. The nodule was extensively hemorrhagic and cystic with a rim of viable material which ranges in appearance from papillary architecture to follicular structures. There is no evidence of a higher grade component. There is no definitive lymphovascular space invasion identified. In some areas, the tumor cells have oncocytic cytoplasm, however, the cells do not meet criteria for tall-cell variant of papillary thyroid carcinoma. * SIDDIQI (02/17/10): Rx 131-Iodine 102.4 mCi, Thyrogen-stim * Scan (02/24/10): post-treatment scan (Thyrogen-stim) shows uptake in left neck, also in liver area. SPECT images show one focus of uptake in lateral segment of the left lobe of the liver, one in the medial segment of the left lobe of liver, and one in the posterior segment of the right lobe of the liver. (05/03/11): Thyrogen stim 123-Iodine scan negative * Thyroglobulin Component Thyroglobulin TG Antibody Screen Stimulation Latest Ref Rng 0.8 - 49.0 ng/mL <14.4 IU/mL 11/05/2009 75.7 (H) 1.0 01/18/2010 <0.2 (L) 1.1 02/16/2010 0.3 (L) 1.0 Thyrogen 07/05/2010 <0.2 (L) 1.3 12/27/2010 <0.2 (L) 1.3 05/08/2011 <0.2 (L) 1.1 Thyrogen 07/24/2011 <0.2 (L) 1.5 01/23/2012 <0.2 (L) 1.0 07/27/2012 <0.2 (L) <1.0 02/18/2013 <0.2 (L) <1.0 08/12/2013 <0.2 (L) <1.0 * mRNA (11/03/09): TSH-R mRNA=1.7 ng/ug (11/30/09): TSH-R mRNA=1.8 ng/ug (01/18/10): no TSH-R mRNA assay postop (07/05/10): TSH-R mRNA <1.0 ng/ug (12/27/10): TSH-R mRNA <1.0 ng/ug * Ultrasound (01/18/10): no suspicious adenopathy along great vessels or in lateral neck on either side. No masses in thyroid bed. (12/27/10): no suspicious adenopathy along great vessels or in lateral neck on either side. No masses in thyroid bed. (01/24/12): no suspicious adenopathy along great vessels or in lateral neck on either side. No masses in thyroid bed. (08/11/13): no suspicious adenopathy along great vessels or in lateral neck on either side. No masses in thyroid bed. Thyroid nodule 10/20/2009 03/02/2010 Incisional hernia without mention of obstruction or gangrene 09/12/2005 08/12/2014 Symptomatic menopausal or female climacteric sta aniceto 04/07/2003 10/15/2017 Diabetes mellitus type 2 03/02/2003 014 Overview: *Type (): dx type 2 diabetes *Control hx Component Hemoglobin A1C Latest Ref Rng 4.0 - 6.0 % 01/17/2011 6.8 05/08/2011 7.2 07/24/2011 6.8 01/23/2012 6.7 07/27/2012 6.1 (H) 02/18/2013 6.4 (H) 08/08/2013 7.0 (H) 10/13/2013 7.1 (H) 02/17/14 7.3 * Eye hx (10/2008): no DM changes per Dr. Campoverde (07/2013): no DM changes per pt, exam Dr. Campoverde * Renal hx Component Albumin/Creat Ratio Latest Ref Rng 0 - 30 mg/g 04/03/2005 8 05/03/2006 8 03/26/2008 13 01/22/2009 18 02/16/2010 10 07/05/2010 9 05/08/2011 13 08/08/2013 9 * Vascular hx (11/12/13): no hx [place], stroke, Component Latest Ref Rng 02/18/2013 08/12/2013 10/13/2013 Triglyceride 30 - 149 mg/dL 114 123 126 Cholesterol 100 - 199 mg/dL 196 192 187 HDL Cholesterol >55 mg/dL 47 (L) 58 52 (L) VLDL Cholesterol 6 - 40 mg/dL 23 25 25 LDL Cholesterol 60 - 129 mg/dL 126 109 110 Fasting Time FASTING FASTING fasting TC:HDL Ratio 1.00 - 5.00 4.17 3.31 3.60 LDL:HDL Ratio 0.50 - 3.55 2.68 1.88 2.12 Non HDL Cholesterol 90 - 159 mg/dL 149 134 135 * Sleep (11/12/13): has obstructive sleep apnea, uses BiPAP since titration 04/07/13 * Exercise (11/12/13): not exercisnig * Medications (11/12/13): Victoza 1.8 mg daily, metformin 500 mg 2-1-1, * Physician (11/12/13): primary physician is Hayley Malone Morbid obesity 03/02/2003 07/15/2014 HYPERLIPIDEMIA NEC/NOS 5 documented as of this encounter (statuses as of 07/31/2022) [facility]2020 History of Past illness Narrative* Problem Noted Date Resolved Date Postoperative abdominal pain 07/12/202011/2020 Mild protein-calorie malnutrition 06/28/2020 06/29/2020 Infected prosthetic mesh of abdominal wall 06/2006/30/2020 Obesity, Class II, BMI 35-39.9 06/13/2019 1 10/17/2019 SBO (small bowel obstruction) 06/07/2019 Morbid obesity 03/10/2019 06/13/2019 Abnormal cardiovascular stress test 09/11/2017 10/15/2017 Primary osteoarthritis of right hip 11/27/2016 08/18/2020 Trochanteric bursitis of right hip 11/27/2016 08/18/2020 Dyspnea, unspecified 03/08/2016 08/16/2020 Angiomyolipoma of right kidney 01/11/2016 1 Essential hypertension with goal blood pressure less than 140/90 12/13/2015 04/12/2017 Obstructive sleep apnea syndrome 12/13/2015 04/12/2017 Superficial skin infection 08/31/201503/13 CKD stage 3 due to type 2 diabetes mellitus 01/1011/16/2018 Overview: Dr. Lilian Vance, nephrology BMI 45.0-49.9, adult 02/06/2015 12/01/2019 Venous insufficiency 02/06/2015 04/12/2017 DM type 2 causing CKD stage 3 09/21/2014 Overview: Dr Landen Best, endocrinology Degenerative arthritis of hip 07/01/2014 BMI 45.0-49.9, adult 03/31/2014 10/13/2014 Diabetes mellitus type II, uncontrolled 11/26/19 14 02/06/2015 BMI 40.0-44.9, adult 10/14/2013 03/31/2014 Chest pain 09/13/2012 03/13/2016 Overview: Substernal pressure lasting ~5hrs, partially relieved with SLN. Significant risk factors for CAD (HTN, HLD, DM). EKG does to show ST changes. Initial CE at [facility] are supposedly negative. Prior stress test in 2010 was normal. DM well controlled. Currently low likelihood for ACS. - EKG - trend Donald - stress test vs [facility] S/P total knee replacement using cement 07/02/20 12 07/15/2018 Degenerative arthritis of right knee 06/10/2012 08/12/2014 Allergic contact dermatitis due to metals 201108/16/2020 Sensorineural hearing loss, bilateral 07/19/2011 08/16/2020 Diverticulosis 08/23/2010 03/13/2016 Thyroid CA 02/21/2010 08/12/2014 Overview: * Surgery (12/15/09): total thyroidectomy, Dr. Jamey Ibrahim, [facility] * Path (10/29/09): FNA Atypical cells present in a background of cyst contents, suspicious for papillary thyroid carcinoma (12/15/09): single well-circumscribed nodule in the right inferior lobe, which measured 3.5 cm in greatest dimension. The nodule was extensively hemorrhagic and cystic with a rim of viable material which ranges in appearance from papillary architecture to follicular structures. There is no evidence of a higher grade component. There is no definitive lymphovascular space invasion identified. In some areas, the tumor cells have oncocytic cytoplasm, however, the cells do not meet criteria for tall-cell variant of papillary thyroid carcinoma. * SIDDIQI (02/17/10): Rx 131-Iodine 102.4 mCi, Thyrogen-stim * Scan (02/24/10): post-treatment scan (Thyrogen-stim) shows uptake in left neck, also in liver area. SPECT images show one focus of uptake in lateral segment of the left lobe of the liver, one in the medial segment of the left lobe of liver, and one in the posterior segment of the right lobe of the liver. (05/03/11): Thyrogen stim 123-Iodine scan negative * Thyroglobulin Component Thyroglobulin TG Antibody Screen Stimulation Latest Ref Rng 0.8 - 49.0 ng/mL <14.4 IU/mL 11/05/2009 75.7 (H) 1.0 01/18/2010 <0.2 (L) 1.1 02/16/2010 0.3 (L) 1.0 Thyrogen 07/05/2010 <0.2 (L) 1.3 12/27/2010 <0.2 (L) 1.3 05/08/2011 <0.2 (L) 1.1 Thyrogen 07/24/2011 <0.2 (L) 1.5 01/23/2012 <0.2 (L) 1.0 07/27/2012 <0.2 (L) <1.0 02/18/2013 <0.2 (L) <1.0 08/12/2013 <0.2 (L) <1.0 * mRNA (11/03/09): TSH-R mRNA=1.7 ng/ug (11/30/09): TSH-R mRNA=1.8 ng/ug (01/18/10): no TSH-R mRNA assay postop (07/05/10): TSH-R mRNA <1.0 ng/ug (12/27/10): TSH-R mRNA <1.0 ng/ug * Ultrasound (01/18/10): no suspicious adenopathy along great vessels or in lateral neck on either side. No masses in thyroid bed. (12/27/10): no suspicious adenopathy along great vessels or in lateral neck on either side. No masses in thyroid bed. (01/24/12): no suspicious adenopathy along great vessels or in lateral neck on either side. No masses in thyroid bed. (08/11/13): no suspicious adenopathy along great vessels or in lateral neck on either side. No masses in thyroid bed. Thyroid nodule 10/20/2009 03/02/2010 Incisional hernia without mention of obstruction or gangrene 09/12/2005 08/12/2014 Symptomatic menopausal or female climacteric sta aniceto 04/07/2003 10/15/2017 Diabetes mellitus type 2 03/02/2003 014 Overview: *Type (): dx type 2 diabetes *Control hx Component Hemoglobin A1C Latest Ref Rng 4.0 - 6.0 % 01/17/2011 6.8 05/08/2011 7.2 07/24/2011 6.8 01/23/2012 6.7 07/27/2012 6.1 (H) 02/18/2013 6.4 (H) 08/08/2013 7.0 (H) 10/13/2013 7.1 (H) 02/17/14 7.3 * Eye hx (10/2008): no DM changes per Dr. Campoverde (07/2013): no DM changes per pt, exam Dr. Campoverde * Renal hx Component Albumin/Creat Ratio Latest Ref Rng 0 - 30 mg/g 04/03/2005 8 05/03/2006 8 03/26/2008 13 01/22/2009 18 02/16/2010 10 07/05/2010 9 05/08/2011 13 08/08/2013 9 * Vascular hx (11/12/13): no hx [place], stroke, Component Latest Ref Rng 02/18/2013 08/12/2013 10/13/2013 Triglyceride 30 - 149 mg/dL 114 123 126 Cholesterol 100 - 199 mg/dL 196 192 187 HDL Cholesterol >55 mg/dL 47 (L) 58 52 (L) VLDL Cholesterol 6 - 40 mg/dL 23 25 25 LDL Cholesterol 60 - 129 mg/dL 126 109 110 Fasting Time FASTING FASTING fasting TC:HDL Ratio 1.00 - 5.00 4.17 3.31 3.60 LDL:HDL Ratio 0.50 - 3.55 2.68 1.88 2.12 Non HDL Cholesterol 90 - 159 mg/dL 149 134 135 * Sleep (11/12/13): has obstructive sleep apnea, uses BiPAP since titration 04/07/13 * Exercise (11/12/13): not exercisnig * Medications (11/12/13): Victoza 1.8 mg daily, metformin 500 mg 2-1-1, * Physician (11/12/13): primary physician is Hayley Malone Morbid obesity 03/02/2003 07/15/2014 HYPERLIPIDEMIA NEC/NOS 5 documented as of this encounter (statuses as of 08/02/2022) [facility] History of Past illness Narrative* Problem Noted Date Resolved Date Postoperative abdominal pain 07/12/202011/2020 Mild protein-calorie malnutrition 06/28/2020 06/29/2020 Infected prosthetic mesh of abdominal wall 06/2006/30/2020 Obesity, Class II, BMI 35-39.9 06/13/2019 1 10/17/2019 SBO (small bowel obstruction) 06/07/2019 Morbid obesity 03/10/2019 06/13/2019 Abnormal cardiovascular stress test 09/11/2017 10/15/2017 Primary osteoarthritis of right hip 11/27/2016 08/18/2020 Trochanteric bursitis of right hip 11/27/2016 08/18/2020 Dyspnea, unspecified 03/08/2016 08/16/2020 Angiomyolipoma of right kidney 01/11/2016 1 Essential hypertension with goal blood pressure less than 140/90 12/13/2015 04/12/2017 Obstructive sleep apnea syndrome 12/13/2015 04/12/2017 Superficial skin infection 08/31/201503/13 CKD stage 3 due to type 2 diabetes mellitus 01/1011/16/2018 Overview: Dr. Lilian Vance, nephrology BMI 45.0-49.9, adult 02/06/2015 12/01/2019 Venous insufficiency 02/06/2015 04/12/2017 DM type 2 causing CKD stage 3 09/21/2014 Overview: Dr Landen Best, endocrinology Degenerative arthritis of hip 07/01/2014 BMI 45.0-49.9, adult 03/31/2014 10/13/2014 Diabetes mellitus type II, uncontrolled 11/26/19 14 02/06/2015 BMI 40.0-44.9, adult 10/14/2013 03/31/2014 Chest pain 09/13/2012 03/13/2016 Overview: Substernal pressure lasting ~5hrs, partially relieved with SLN. Significant risk factors for CAD (HTN, HLD, DM). EKG does to show ST changes. Initial CE at [facility] are supposedly negative. Prior stress test in 2010 was normal. DM well controlled. Currently low likelihood for ACS. - EKG - trend Donald - stress test vs [facility] S/P total knee replacement using cement 07/02/20 12 07/15/2018 Degenerative arthritis of right knee 06/10/2012 08/12/2014 Allergic contact dermatitis due to metals 201108/16/2020 Sensorineural hearing loss, bilateral 07/19/2011 08/16/2020 Diverticulosis 08/23/2010 03/13/2016 Thyroid CA 02/21/2010 08/12/2014 Overview: * Surgery (12/15/09): total thyroidectomy, Dr. Jamey Ibrahim, [facility] * Path (10/29/09): FNA Atypical cells present in a background of cyst contents, suspicious for papillary thyroid carcinoma (12/15/09): single well-circumscribed nodule in the right inferior lobe, which measured 3.5 cm in greatest dimension. The nodule was extensively hemorrhagic and cystic with a rim of viable material which ranges in appearance from papillary architecture to follicular structures. There is no evidence of a higher grade component. There is no definitive lymphovascular space invasion identified. In some areas, the tumor cells have oncocytic cytoplasm, however, the cells do not meet criteria for tall-cell variant of papillary thyroid carcinoma. * SIDDIQI (02/17/10): Rx 131-Iodine 102.4 mCi, Thyrogen-stim * Scan (02/24/10): post-treatment scan (Thyrogen-stim) shows uptake in left neck, also in liver area. SPECT images show one focus of uptake in lateral segment of the left lobe of the liver, one in the medial segment of the left lobe of liver, and one in the posterior segment of the right lobe of the liver. (05/03/11): Thyrogen stim 123-Iodine scan negative * Thyroglobulin Component Thyroglobulin TG Antibody Screen Stimulation Latest Ref Rng 0.8 - 49.0 ng/mL <14.4 IU/mL 11/05/2009 75.7 (H) 1.0 01/18/2010 <0.2 (L) 1.1 02/16/2010 0.3 (L) 1.0 Thyrogen 07/05/2010 <0.2 (L) 1.3 12/27/2010 <0.2 (L) 1.3 05/08/2011 <0.2 (L) 1.1 Thyrogen 07/24/2011 <0.2 (L) 1.5 01/23/2012 <0.2 (L) 1.0 07/27/2012 <0.2 (L) <1.0 02/18/2013 <0.2 (L) <1.0 08/12/2013 <0.2 (L) <1.0 * mRNA (11/03/09): TSH-R mRNA=1.7 ng/ug (11/30/09): TSH-R mRNA=1.8 ng/ug (01/18/10): no TSH-R mRNA assay postop (07/05/10): TSH-R mRNA <1.0 ng/ug (12/27/10): TSH-R mRNA <1.0 ng/ug * Ultrasound (01/18/10): no suspicious adenopathy along great vessels or in lateral neck on either side. No masses in thyroid bed. (12/27/10): no suspicious adenopathy along great vessels or in lateral neck on either side. No masses in thyroid bed. (01/24/12): no suspicious adenopathy along great vessels or in lateral neck on either side. No masses in thyroid bed. (08/11/13): no suspicious adenopathy along great vessels or in lateral neck on either side. No masses in thyroid bed. Thyroid nodule 10/20/2009 03/02/2010 Incisional hernia without mention of obstruction or gangrene 09/12/2005 08/12/2014 Symptomatic menopausal or female climacteric sta aniceto 04/07/2003 10/15/2017 Diabetes mellitus type 2 03/02/2003 014 Overview: *Type (): dx type 2 diabetes *Control hx Component Hemoglobin A1C Latest Ref Rng 4.0 - 6.0 % 01/17/2011 6.8 05/08/2011 7.2 07/24/2011 6.8 01/23/2012 6.7 07/27/2012 6.1 (H) 02/18/2013 6.4 (H) 08/08/2013 7.0 (H) 10/13/2013 7.1 (H) 02/17/14 7.3 * Eye hx (10/2008): no DM changes per Dr. Campoverde (07/2013): no DM changes per pt, exam Dr. Campoverde * Renal hx Component Albumin/Creat Ratio Latest Ref Rng 0 - 30 mg/g 04/03/2005 8 05/03/2006 8 03/26/2008 13 01/22/2009 18 02/16/2010 10 07/05/2010 9 05/08/2011 13 08/08/2013 9 * Vascular hx (11/12/13): no hx [place], stroke, Component Latest Ref Rng 02/18/2013 08/12/2013 10/13/2013 Triglyceride 30 - 149 mg/dL 114 123 126 Cholesterol 100 - 199 mg/dL 196 192 187 HDL Cholesterol >55 mg/dL 47 (L) 58 52 (L) VLDL Cholesterol 6 - 40 mg/dL 23 25 25 LDL Cholesterol 60 - 129 mg/dL 126 109 110 Fasting Time FASTING FASTING fasting TC:HDL Ratio 1.00 - 5.00 4.17 3.31 3.60 LDL:HDL Ratio 0.50 - 3.55 2.68 1.88 2.12 Non HDL Cholesterol 90 - 159 mg/dL 149 134 135 * Sleep (11/12/13): has obstructive sleep apnea, uses BiPAP since titration 04/07/13 * Exercise (11/12/13): not exercisnig * Medications (11/12/13): Victoza 1.8 mg daily, metformin 500 mg 2-1-1, * Physician (11/12/13): primary physician is Hayley Malone Morbid obesity 03/02/2003 07/15/2014 HYPERLIPIDEMIA NEC/NOS 5 documented as of this encounter (statuses as of 08/08/2022) [facility]11-02-2020 History of Past illness Narrative* Problem Noted Date Resolved Date Postoperative abdominal pain 07/12/202011/2020 Mild protein-calorie malnutrition 06/28/2020 06/29/2020 Infected prosthetic mesh of abdominal wall 06/2006/30/2020 Obesity, Class II, BMI 35-39.9 06/13/2019 1 10/17/2019 SBO (small bowel obstruction) 06/07/2019 Morbid obesity 03/10/2019 06/13/2019 Abnormal cardiovascular stress test 09/11/2017 10/15/2017 Primary osteoarthritis of right hip 11/27/2016 08/18/2020 Trochanteric bursitis of right hip 11/27/2016 08/18/2020 Dyspnea, unspecified 03/08/2016 08/16/2020 Angiomyolipoma of right kidney 01/11/2016 1 Essential hypertension with goal blood pressure less than 140/90 12/13/2015 04/12/2017 Obstructive sleep apnea syndrome 12/13/2015 04/12/2017 Superficial skin infection 08/31/201503/13 CKD stage 3 due to type 2 diabetes mellitus 01/1011/16/2018 Overview: Dr. Lilian Vance, nephrology BMI 45.0-49.9, adult 02/06/2015 12/01/2019 Venous insufficiency 02/06/2015 04/12/2017 DM type 2 causing CKD stage 3 09/21/2014 Overview: Dr Landen Best, endocrinology Degenerative arthritis of hip 07/01/2014 BMI 45.0-49.9, adult 03/31/2014 10/13/2014 Diabetes mellitus type II, uncontrolled 11/26/19 14 02/06/2015 BMI 40.0-44.9, adult 10/14/2013 03/31/2014 Chest pain 09/13/2012 03/13/2016 Overview: Substernal pressure lasting ~5hrs, partially relieved with SLN. Significant risk factors for CAD (HTN, HLD, DM). EKG does to show ST changes. Initial CE at [facility] are supposedly negative. Prior stress test in 2010 was normal. DM well controlled. Currently low likelihood for ACS. - EKG - trend Donald - stress test vs [facility] S/P total knee replacement using cement 07/02/20 12 07/15/2018 Degenerative arthritis of right knee 06/10/2012 08/12/2014 Allergic contact dermatitis due to metals 201108/16/2020 Sensorineural hearing loss, bilateral 07/19/2011 08/16/2020 Diverticulosis 08/23/2010 03/13/2016 Thyroid CA 02/21/2010 08/12/2014 Overview: * Surgery (12/15/09): total thyroidectomy, Dr. Jmaey Ibrahim, [facility] * Path (10/29/09): FNA Atypical cells present in a background of cyst contents, suspicious for papillary thyroid carcinoma (12/15/09): single well-circumscribed nodule in the right inferior lobe, which measured 3.5 cm in greatest dimension. The nodule was extensively hemorrhagic and cystic with a rim of viable material which ranges in appearance from papillary architecture to follicular structures. There is no evidence of a higher grade component. There is no definitive lymphovascular space invasion identified. In some areas, the tumor cells have oncocytic cytoplasm, however, the cells do not meet criteria for tall-cell variant of papillary thyroid carcinoma. * SIDDIQI (02/17/10): Rx 131-Iodine 102.4 mCi, Thyrogen-stim * Scan (02/24/10): post-treatment scan (Thyrogen-stim) shows uptake in left neck, also in liver area. SPECT images show one focus of uptake in lateral segment of the left lobe of the liver, one in the medial segment of the left lobe of liver, and one in the posterior segment of the right lobe of the liver. (05/03/11): Thyrogen stim 123-Iodine scan negative * Thyroglobulin Component Thyroglobulin TG Antibody Screen Stimulation Latest Ref Rng 0.8 - 49.0 ng/mL <14.4 IU/mL 11/05/2009 75.7 (H) 1.0 01/18/2010 <0.2 (L) 1.1 02/16/2010 0.3 (L) 1.0 Thyrogen 07/05/2010 <0.2 (L) 1.3 12/27/2010 <0.2 (L) 1.3 05/08/2011 <0.2 (L) 1.1 Thyrogen 07/24/2011 <0.2 (L) 1.5 01/23/2012 <0.2 (L) 1.0 07/27/2012 <0.2 (L) <1.0 02/18/2013 <0.2 (L) <1.0 08/12/2013 <0.2 (L) <1.0 * mRNA (11/03/09): TSH-R mRNA=1.7 ng/ug (11/30/09): TSH-R mRNA=1.8 ng/ug (01/18/10): no TSH-R mRNA assay postop (07/05/10): TSH-R mRNA <1.0 ng/ug (12/27/10): TSH-R mRNA <1.0 ng/ug * Ultrasound (01/18/10): no suspicious adenopathy along great vessels or in lateral neck on either side. No masses in thyroid bed. (12/27/10): no suspicious adenopathy along great vessels or in lateral neck on either side. No masses in thyroid bed. (01/24/12): no suspicious adenopathy along great vessels or in lateral neck on either side. No masses in thyroid bed. (08/11/13): no suspicious adenopathy along great vessels or in lateral neck on either side. No masses in thyroid bed. Thyroid nodule 10/20/2009 03/02/2010 Incisional hernia without mention of obstruction or gangrene 09/12/2005 08/12/2014 Symptomatic menopausal or female climacteric sta aniceto 04/07/2003 10/15/2017 Diabetes mellitus type 2 03/02/2003 014 Overview: *Type (): dx type 2 diabetes *Control hx Component Hemoglobin A1C Latest Ref Rng 4.0 - 6.0 % 01/17/2011 6.8 05/08/2011 7.2 07/24/2011 6.8 01/23/2012 6.7 07/27/2012 6.1 (H) 02/18/2013 6.4 (H) 08/08/2013 7.0 (H) 10/13/2013 7.1 (H) 02/17/14 7.3 * Eye hx (10/2008): no DM changes per Dr. Campoverde (07/2013): no DM changes per pt, exam Dr. Campoverde * Renal hx Component Albumin/Creat Ratio Latest Ref Rng 0 - 30 mg/g 04/03/2005 8 05/03/2006 8 03/26/2008 13 01/22/2009 18 02/16/2010 10 07/05/2010 9 05/08/2011 13 08/08/2013 9 * Vascular hx (11/12/13): no hx [place], stroke, Component Latest Ref Rng 02/18/2013 08/12/2013 10/13/2013 Triglyceride 30 - 149 mg/dL 114 123 126 Cholesterol 100 - 199 mg/dL 196 192 187 HDL Cholesterol >55 mg/dL 47 (L) 58 52 (L) VLDL Cholesterol 6 - 40 mg/dL 23 25 25 LDL Cholesterol 60 - 129 mg/dL 126 109 110 Fasting Time FASTING FASTING fasting TC:HDL Ratio 1.00 - 5.00 4.17 3.31 3.60 LDL:HDL Ratio 0.50 - 3.55 2.68 1.88 2.12 Non HDL Cholesterol 90 - 159 mg/dL 149 134 135 * Sleep (11/12/13): has obstructive sleep apnea, uses BiPAP since titration 04/07/13 * Exercise (11/12/13): not exercisnig * Medications (11/12/13): Victoza 1.8 mg daily, metformin 500 mg 2-1-1, * Physician (11/12/13): primary physician is Hayley Mlaone Morbid obesity 03/02/2003 07/15/2014 HYPERLIPIDEMIA NEC/NOS 5 documented as of this encounter (statuses as of 08/10/2022) [facility]11-02-2020 History of Past illness Narrative* Problem Noted Date Resolved Date Postoperative abdominal pain 07/12/202011/2020 Mild protein-calorie malnutrition 06/28/2020 06/29/2020 Infected prosthetic mesh of abdominal wall 06/2006/30/2020 Obesity, Class II, BMI 35-39.9 06/13/2019 1 10/17/2019 SBO (small bowel obstruction) 06/07/2019 Morbid obesity 03/10/2019 06/13/2019 Abnormal cardiovascular stress test 09/11/2017 10/15/2017 Primary osteoarthritis of right hip 11/27/2016 08/18/2020 Trochanteric bursitis of right hip 11/27/2016 08/18/2020 Dyspnea, unspecified 03/08/2016 08/16/2020 Angiomyolipoma of right kidney 01/11/2016 1 Essential hypertension with goal blood pressure less than 140/90 12/13/2015 04/12/2017 Obstructive sleep apnea syndrome 12/13/2015 04/12/2017 Superficial skin infection 08/31/201503/13 CKD stage 3 due to type 2 diabetes mellitus 01/1011/16/2018 Overview: Dr. Lilian Vance, nephrology BMI 45.0-49.9, adult 02/06/2015 12/01/2019 Venous insufficiency 02/06/2015 04/12/2017 DM type 2 causing CKD stage 3 09/21/2014 Overview: Dr Landen Best, endocrinology Degenerative arthritis of hip 07/01/2014 BMI 45.0-49.9, adult 03/31/2014 10/13/2014 Diabetes mellitus type II, uncontrolled 11/26/19 14 02/06/2015 BMI 40.0-44.9, adult 10/14/2013 03/31/2014 Chest pain 09/13/2012 03/13/2016 Overview: Substernal pressure lasting ~5hrs, partially relieved with SLN. Significant risk factors for CAD (HTN, HLD, DM). EKG does to show ST changes. Initial CE at [facility] are supposedly negative. Prior stress test in 2010 was normal. DM well controlled. Currently low likelihood for ACS. - EKG - trend Donald - stress test vs [facility] S/P total knee replacement using cement 07/02/20 12 07/15/2018 Degenerative arthritis of right knee 06/10/2012 08/12/2014 Allergic contact dermatitis due to metals 201108/16/2020 Sensorineural hearing loss, bilateral 07/19/2011 08/16/2020 Diverticulosis 08/23/2010 03/13/2016 Thyroid CA 02/21/2010 08/12/2014 Overview: * Surgery (12/15/09): total thyroidectomy, Dr. Jamey Ibrahim, [facility] * Path (10/29/09): FNA Atypical cells present in a background of cyst contents, suspicious for papillary thyroid carcinoma (12/15/09): single well-circumscribed nodule in the right inferior lobe, which measured 3.5 cm in greatest dimension. The nodule was extensively hemorrhagic and cystic with a rim of viable material which ranges in appearance from papillary architecture to follicular structures. There is no evidence of a higher grade component. There is no definitive lymphovascular space invasion identified. In some areas, the tumor cells have oncocytic cytoplasm, however, the cells do not meet criteria for tall-cell variant of papillary thyroid carcinoma. * SIDDIQI (02/17/10): Rx 131-Iodine 102.4 mCi, Thyrogen-stim * Scan (02/24/10): post-treatment scan (Thyrogen-stim) shows uptake in left neck, also in liver area. SPECT images show one focus of uptake in lateral segment of the left lobe of the liver, one in the medial segment of the left lobe of liver, and one in the posterior segment of the right lobe of the liver. (05/03/11): Thyrogen stim 123-Iodine scan negative * Thyroglobulin Component Thyroglobulin TG Antibody Screen Stimulation Latest Ref Rng 0.8 - 49.0 ng/mL <14.4 IU/mL 11/05/2009 75.7 (H) 1.0 01/18/2010 <0.2 (L) 1.1 02/16/2010 0.3 (L) 1.0 Thyrogen 07/05/2010 <0.2 (L) 1.3 12/27/2010 <0.2 (L) 1.3 05/08/2011 <0.2 (L) 1.1 Thyrogen 07/24/2011 <0.2 (L) 1.5 01/23/2012 <0.2 (L) 1.0 07/27/2012 <0.2 (L) <1.0 02/18/2013 <0.2 (L) <1.0 08/12/2013 <0.2 (L) <1.0 * mRNA (11/03/09): TSH-R mRNA=1.7 ng/ug (11/30/09): TSH-R mRNA=1.8 ng/ug (01/18/10): no TSH-R mRNA assay postop (07/05/10): TSH-R mRNA <1.0 ng/ug (12/27/10): TSH-R mRNA <1.0 ng/ug * Ultrasound (01/18/10): no suspicious adenopathy along great vessels or in lateral neck on either side. No masses in thyroid bed. (12/27/10): no suspicious adenopathy along great vessels or in lateral neck on either side. No masses in thyroid bed. (01/24/12): no suspicious adenopathy along great vessels or in lateral neck on either side. No masses in thyroid bed. (08/11/13): no suspicious adenopathy along great vessels or in lateral neck on either side. No masses in thyroid bed. Thyroid nodule 10/20/2009 03/02/2010 Incisional hernia without mention of obstruction or gangrene 09/12/2005 08/12/2014 Symptomatic menopausal or female climacteric sta aniceto 04/07/2003 10/15/2017 Diabetes mellitus type 2 03/02/2003 014 Overview: *Type (): dx type 2 diabetes *Control hx Component Hemoglobin A1C Latest Ref Rng 4.0 - 6.0 % 01/17/2011 6.8 05/08/2011 7.2 07/24/2011 6.8 01/23/2012 6.7 07/27/2012 6.1 (H) 02/18/2013 6.4 (H) 08/08/2013 7.0 (H) 10/13/2013 7.1 (H) 02/17/14 7.3 * Eye hx (10/2008): no DM changes per Dr. Campoverde (07/2013): no DM changes per pt, exam Dr. Campoverde * Renal hx Component Albumin/Creat Ratio Latest Ref Rng 0 - 30 mg/g 04/03/2005 8 05/03/2006 8 03/26/2008 13 01/22/2009 18 02/16/2010 10 07/05/2010 9 05/08/2011 13 08/08/2013 9 * Vascular hx (11/12/13): no hx [place], stroke, Component Latest Ref Rng 02/18/2013 08/12/2013 10/13/2013 Triglyceride 30 - 149 mg/dL 114 123 126 Cholesterol 100 - 199 mg/dL 196 192 187 HDL Cholesterol >55 mg/dL 47 (L) 58 52 (L) VLDL Cholesterol 6 - 40 mg/dL 23 25 25 LDL Cholesterol 60 - 129 mg/dL 126 109 110 Fasting Time FASTING FASTING fasting TC:HDL Ratio 1.00 - 5.00 4.17 3.31 3.60 LDL:HDL Ratio 0.50 - 3.55 2.68 1.88 2.12 Non HDL Cholesterol 90 - 159 mg/dL 149 134 135 * Sleep (11/12/13): has obstructive sleep apnea, uses BiPAP since titration 04/07/13 * Exercise (11/12/13): not exercisnig * Medications (11/12/13): Victoza 1.8 mg daily, metformin 500 mg 2-1-1, * Physician (11/12/13): primary physician is Hayley Malone Morbid obesity 03/02/2003 07/15/2014 HYPERLIPIDEMIA NEC/NOS 5 documented as of this encounter (statuses as of 08/15/2022) [facility]11-02-2020 History of Past illness Narrative* Problem Noted Date Resolved Date Postoperative abdominal pain 07/12/202011/2020 Mild protein-calorie malnutrition 06/28/2020 06/29/2020 Infected prosthetic mesh of abdominal wall 06/2006/30/2020 Obesity, Class II, BMI 35-39.9 06/13/2019 1 10/17/2019 SBO (small bowel obstruction) 06/07/2019 Morbid obesity 03/10/2019 06/13/2019 Abnormal cardiovascular stress test 09/11/2017 10/15/2017 Primary osteoarthritis of right hip 11/27/2016 08/18/2020 Trochanteric bursitis of right hip 11/27/2016 08/18/2020 Dyspnea, unspecified 03/08/2016 08/16/2020 Angiomyolipoma of right kidney 01/11/2016 1 Essential hypertension with goal blood pressure less than 140/90 12/13/2015 04/12/2017 Obstructive sleep apnea syndrome 12/13/2015 04/12/2017 Superficial skin infection 08/31/201503/13 CKD stage 3 due to type 2 diabetes mellitus 01/1011/16/2018 Overview: Dr. Lilian Vance, nephrology BMI 45.0-49.9, adult 02/06/2015 12/01/2019 Venous insufficiency 02/06/2015 04/12/2017 DM type 2 causing CKD stage 3 09/21/2014 Overview: Dr Landen Best, endocrinology Degenerative arthritis of hip 07/01/2014 BMI 45.0-49.9, adult 03/31/2014 10/13/2014 Diabetes mellitus type II, uncontrolled 11/26/19 14 02/06/2015 BMI 40.0-44.9, adult 10/14/2013 03/31/2014 Chest pain 09/13/2012 03/13/2016 Overview: Substernal pressure lasting ~5hrs, partially relieved with SLN. Significant risk factors for CAD (HTN, HLD, DM). EKG does to show ST changes. Initial CE at [facility] are supposedly negative. Prior stress test in 2010 was normal. DM well controlled. Currently low likelihood for ACS. - EKG - trend Donald - stress test vs [facility] S/P total knee replacement using cement 07/02/20 12 07/15/2018 Degenerative arthritis of right knee 06/10/2012 08/12/2014 Allergic contact dermatitis due to metals 201108/16/2020 Sensorineural hearing loss, bilateral 07/19/2011 08/16/2020 Diverticulosis 08/23/2010 03/13/2016 Thyroid CA 02/21/2010 08/12/2014 Overview: * Surgery (12/15/09): total thyroidectomy, Dr. Jamey Ibrahim, [facility] * Path (10/29/09): FNA Atypical cells present in a background of cyst contents, suspicious for papillary thyroid carcinoma (12/15/09): single well-circumscribed nodule in the right inferior lobe, which measured 3.5 cm in greatest dimension. The nodule was extensively hemorrhagic and cystic with a rim of viable material which ranges in appearance from papillary architecture to follicular structures. There is no evidence of a higher grade component. There is no definitive lymphovascular space invasion identified. In some areas, the tumor cells have oncocytic cytoplasm, however, the cells do not meet criteria for tall-cell variant of papillary thyroid carcinoma. * SIDDIQI (02/17/10): Rx 131-Iodine 102.4 mCi, Thyrogen-stim * Scan (02/24/10): post-treatment scan (Thyrogen-stim) shows uptake in left neck, also in liver area. SPECT images show one focus of uptake in lateral segment of the left lobe of the liver, one in the medial segment of the left lobe of liver, and one in the posterior segment of the right lobe of the liver. (05/03/11): Thyrogen stim 123-Iodine scan negative * Thyroglobulin Component Thyroglobulin TG Antibody Screen Stimulation Latest Ref Rng 0.8 - 49.0 ng/mL <14.4 IU/mL 11/05/2009 75.7 (H) 1.0 01/18/2010 <0.2 (L) 1.1 02/16/2010 0.3 (L) 1.0 Thyrogen 07/05/2010 <0.2 (L) 1.3 12/27/2010 <0.2 (L) 1.3 05/08/2011 <0.2 (L) 1.1 Thyrogen 07/24/2011 <0.2 (L) 1.5 01/23/2012 <0.2 (L) 1.0 07/27/2012 <0.2 (L) <1.0 02/18/2013 <0.2 (L) <1.0 08/12/2013 <0.2 (L) <1.0 * mRNA (11/03/09): TSH-R mRNA=1.7 ng/ug (11/30/09): TSH-R mRNA=1.8 ng/ug (01/18/10): no TSH-R mRNA assay postop (07/05/10): TSH-R mRNA <1.0 ng/ug (12/27/10): TSH-R mRNA <1.0 ng/ug * Ultrasound (01/18/10): no suspicious adenopathy along great vessels or in lateral neck on either side. No masses in thyroid bed. (12/27/10): no suspicious adenopathy along great vessels or in lateral neck on either side. No masses in thyroid bed. (01/24/12): no suspicious adenopathy along great vessels or in lateral neck on either side. No masses in thyroid bed. (08/11/13): no suspicious adenopathy along great vessels or in lateral neck on either side. No masses in thyroid bed. Thyroid nodule 10/20/2009 03/02/2010 Incisional hernia without mention of obstruction or gangrene 09/12/2005 08/12/2014 Symptomatic menopausal or female climacteric sta aniceto 04/07/2003 10/15/2017 Diabetes mellitus type 2 03/02/2003 014 Overview: *Type (): dx type 2 diabetes *Control hx Component Hemoglobin A1C Latest Ref Rng 4.0 - 6.0 % 01/17/2011 6.8 05/08/2011 7.2 07/24/2011 6.8 01/23/2012 6.7 07/27/2012 6.1 (H) 02/18/2013 6.4 (H) 08/08/2013 7.0 (H) 10/13/2013 7.1 (H) 02/17/14 7.3 * Eye hx (10/2008): no DM changes per Dr. Campoverde (07/2013): no DM changes per pt, exam Dr. Campoverde * Renal hx Component Albumin/Creat Ratio Latest Ref Rng 0 - 30 mg/g 04/03/2005 8 05/03/2006 8 03/26/2008 13 01/22/2009 18 02/16/2010 10 07/05/2010 9 05/08/2011 13 08/08/2013 9 * Vascular hx (11/12/13): no hx [place], stroke, Component Latest Ref Rng 02/18/2013 08/12/2013 10/13/2013 Triglyceride 30 - 149 mg/dL 114 123 126 Cholesterol 100 - 199 mg/dL 196 192 187 HDL Cholesterol >55 mg/dL 47 (L) 58 52 (L) VLDL Cholesterol 6 - 40 mg/dL 23 25 25 LDL Cholesterol 60 - 129 mg/dL 126 109 110 Fasting Time FASTING FASTING fasting TC:HDL Ratio 1.00 - 5.00 4.17 3.31 3.60 LDL:HDL Ratio 0.50 - 3.55 2.68 1.88 2.12 Non HDL Cholesterol 90 - 159 mg/dL 149 134 135 * Sleep (11/12/13): has obstructive sleep apnea, uses BiPAP since titration 04/07/13 * Exercise (11/12/13): not exercisnig * Medications (11/12/13): Victoza 1.8 mg daily, metformin 500 mg 2-1-1, * Physician (11/12/13): primary physician is Hayley Malone Morbid obesity 03/02/2003 07/15/2014 HYPERLIPIDEMIA NEC/NOS 5 documented as of this encounter (statuses as of 08/16/2022) [facility]11[facility]2020 History of Past illness Narrative* Problem Noted Date Resolved Date Postoperative abdominal pain 07/12/202011/2020 Mild protein-calorie malnutrition 06/28/2020 06/29/2020 Infected prosthetic mesh of abdominal wall 06/2006/30/2020 Obesity, Class II, BMI 35-39.9 06/13/2019 1 10/17/2019 SBO (small bowel obstruction) 06/07/2019 Morbid obesity 03/10/2019 06/13/2019 Abnormal cardiovascular stress test 09/11/2017 10/15/2017 Primary osteoarthritis of right hip 11/27/2016 08/18/2020 Trochanteric bursitis of right hip 11/27/2016 08/18/2020 Dyspnea, unspecified 03/08/2016 08/16/2020 Angiomyolipoma of right kidney 01/11/2016 1 Essential hypertension with goal blood pressure less than 140/90 12/13/2015 04/12/2017 Obstructive sleep apnea syndrome 12/13/2015 04/12/2017 Superficial skin infection 08/31/201503/13 CKD stage 3 due to type 2 diabetes mellitus 01/1011/16/2018 Overview: Dr. Lilian Vance, nephrology BMI 45.0-49.9, adult 02/06/2015 12/01/2019 Venous insufficiency 02/06/2015 04/12/2017 DM type 2 causing CKD stage 3 09/21/2014 Overview: Dr Landen Best, endocrinology Degenerative arthritis of hip 07/01/2014 BMI 45.0-49.9, adult 03/31/2014 10/13/2014 Diabetes mellitus type II, uncontrolled 11/26/19 14 02/06/2015 BMI 40.0-44.9, adult 10/14/2013 03/31/2014 Chest pain 09/13/2012 03/13/2016 Overview: Substernal pressure lasting ~5hrs, partially relieved with SLN. Significant risk factors for CAD (HTN, HLD, DM). EKG does to show ST changes. Initial CE at [facility] are supposedly negative. Prior stress test in 2010 was normal. DM well controlled. Currently low likelihood for ACS. - EKG - trend Donald - stress test vs [facility] S/P total knee replacement using cement 07/02/20 12 07/15/2018 Degenerative arthritis of right knee 06/10/2012 08/12/2014 Allergic contact dermatitis due to metals 201108/16/2020 Sensorineural hearing loss, bilateral 07/19/2011 08/16/2020 Diverticulosis 08/23/2010 03/13/2016 Thyroid CA 02/21/2010 08/12/2014 Overview: * Surgery (12/15/09): total thyroidectomy, Dr. Jamey Ibrahim, [facility] * Path (10/29/09): FNA Atypical cells present in a background of cyst contents, suspicious for papillary thyroid carcinoma (12/15/09): single well-circumscribed nodule in the right inferior lobe, which measured 3.5 cm in greatest dimension. The nodule was extensively hemorrhagic and cystic with a rim of viable material which ranges in appearance from papillary architecture to follicular structures. There is no evidence of a higher grade component. There is no definitive lymphovascular space invasion identified. In some areas, the tumor cells have oncocytic cytoplasm, however, the cells do not meet criteria for tall-cell variant of papillary thyroid carcinoma. * SIDDIQI (02/17/10): Rx 131-Iodine 102.4 mCi, Thyrogen-stim * Scan (02/24/10): post-treatment scan (Thyrogen-stim) shows uptake in left neck, also in liver area. SPECT images show one focus of uptake in lateral segment of the left lobe of the liver, one in the medial segment of the left lobe of liver, and one in the posterior segment of the right lobe of the liver. (05/03/11): Thyrogen stim 123-Iodine scan negative * Thyroglobulin Component Thyroglobulin TG Antibody Screen Stimulation Latest Ref Rng 0.8 - 49.0 ng/mL <14.4 IU/mL 11/05/2009 75.7 (H) 1.0 01/18/2010 <0.2 (L) 1.1 02/16/2010 0.3 (L) 1.0 Thyrogen 07/05/2010 <0.2 (L) 1.3 12/27/2010 <0.2 (L) 1.3 05/08/2011 <0.2 (L) 1.1 Thyrogen 07/24/2011 <0.2 (L) 1.5 01/23/2012 <0.2 (L) 1.0 07/27/2012 <0.2 (L) <1.0 02/18/2013 <0.2 (L) <1.0 08/12/2013 <0.2 (L) <1.0 * mRNA (11/03/09): TSH-R mRNA=1.7 ng/ug (11/30/09): TSH-R mRNA=1.8 ng/ug (01/18/10): no TSH-R mRNA assay postop (07/05/10): TSH-R mRNA <1.0 ng/ug (12/27/10): TSH-R mRNA <1.0 ng/ug * Ultrasound (01/18/10): no suspicious adenopathy along great vessels or in lateral neck on either side. No masses in thyroid bed. (12/27/10): no suspicious adenopathy along great vessels or in lateral neck on either side. No masses in thyroid bed. (01/24/12): no suspicious adenopathy along great vessels or in lateral neck on either side. No masses in thyroid bed. (08/11/13): no suspicious adenopathy along great vessels or in lateral neck on either side. No masses in thyroid bed. Thyroid nodule 10/20/2009 03/02/2010 Incisional hernia without mention of obstruction or gangrene 09/12/2005 08/12/2014 Symptomatic menopausal or female climacteric sta aniceto 04/07/2003 10/15/2017 Diabetes mellitus type 2 03/02/2003 014 Overview: *Type (): dx type 2 diabetes *Control hx Component Hemoglobin A1C Latest Ref Rng 4.0 - 6.0 % 01/17/2011 6.8 05/08/2011 7.2 07/24/2011 6.8 01/23/2012 6.7 07/27/2012 6.1 (H) 02/18/2013 6.4 (H) 08/08/2013 7.0 (H) 10/13/2013 7.1 (H) 02/17/14 7.3 * Eye hx (10/2008): no DM changes per Dr. Campoverde (07/2013): no DM changes per pt, exam Dr. Campoverde * Renal hx Component Albumin/Creat Ratio Latest Ref Rng 0 - 30 mg/g 04/03/2005 8 05/03/2006 8 03/26/2008 13 01/22/2009 18 02/16/2010 10 07/05/2010 9 05/08/2011 13 08/08/2013 9 * Vascular hx (11/12/13): no hx [place], stroke, Component Latest Ref Rng 02/18/2013 08/12/2013 10/13/2013 Triglyceride 30 - 149 mg/dL 114 123 126 Cholesterol 100 - 199 mg/dL 196 192 187 HDL Cholesterol >55 mg/dL 47 (L) 58 52 (L) VLDL Cholesterol 6 - 40 mg/dL 23 25 25 LDL Cholesterol 60 - 129 mg/dL 126 109 110 Fasting Time FASTING FASTING fasting TC:HDL Ratio 1.00 - 5.00 4.17 3.31 3.60 LDL:HDL Ratio 0.50 - 3.55 2.68 1.88 2.12 Non HDL Cholesterol 90 - 159 mg/dL 149 134 135 * Sleep (11/12/13): has obstructive sleep apnea, uses BiPAP since titration 04/07/13 * Exercise (11/12/13): not exercisnig * Medications (11/12/13): Victoza 1.8 mg daily, metformin 500 mg 2-1-1, * Physician (11/12/13): primary physician is Hayley Malone Morbid obesity 03/02/2003 07/15/2014 HYPERLIPIDEMIA NEC/NOS 5 documented as of this encounter (statuses as of 08/24/2022) [facility] History of Past illness Narrative* Problem Noted Date Resolved Date Postoperative abdominal pain 07/12/202011/2020 Mild protein-calorie malnutrition 06/28/2020 06/29/2020 Infected prosthetic mesh of abdominal wall 06/2006/30/2020 Obesity, Class II, BMI 35-39.9 06/13/2019 1 10/17/2019 SBO (small bowel obstruction) 06/07/2019 Morbid obesity 03/10/2019 06/13/2019 Abnormal cardiovascular stress test 09/11/2017 10/15/2017 Primary osteoarthritis of right hip 11/27/2016 08/18/2020 Trochanteric bursitis of right hip 11/27/2016 08/18/2020 Dyspnea, unspecified 03/08/2016 08/16/2020 Angiomyolipoma of right kidney 01/11/2016 1 Essential hypertension with goal blood pressure less than 140/90 12/13/2015 04/12/2017 Obstructive sleep apnea syndrome 12/13/2015 04/12/2017 Superficial skin infection 08/31/201503/13 CKD stage 3 due to type 2 diabetes mellitus 01/1011/16/2018 Overview: Dr. Lilian Vance, nephrology BMI 45.0-49.9, adult 02/06/2015 12/01/2019 Venous insufficiency 02/06/2015 04/12/2017 DM type 2 causing CKD stage 3 09/21/2014 Overview: Dr Landen Best, endocrinology Degenerative arthritis of hip 07/01/2014 BMI 45.0-49.9, adult 03/31/2014 10/13/2014 Diabetes mellitus type II, uncontrolled 11/26/19 14 02/06/2015 BMI 40.0-44.9, adult 10/14/2013 03/31/2014 Chest pain 09/13/2012 03/13/2016 Overview: Substernal pressure lasting ~5hrs, partially relieved with SLN. Significant risk factors for CAD (HTN, HLD, DM). EKG does to show ST changes. Initial CE at [facility] are supposedly negative. Prior stress test in 2010 was normal. DM well controlled. Currently low likelihood for ACS. - EKG - trend Donald - stress test vs [facility] S/P total knee replacement using cement 07/02/20 12 07/15/2018 Degenerative arthritis of right knee 06/10/2012 08/12/2014 Allergic contact dermatitis due to metals 201108/16/2020 Sensorineural hearing loss, bilateral 07/19/2011 08/16/2020 Diverticulosis 08/23/2010 03/13/2016 Thyroid CA 02/21/2010 08/12/2014 Overview: * Surgery (12/15/09): total thyroidectomy, Dr. Jamey Ibrahim, [facility] * Path (10/29/09): FNA Atypical cells present in a background of cyst contents, suspicious for papillary thyroid carcinoma (12/15/09): single well-circumscribed nodule in the right inferior lobe, which measured 3.5 cm in greatest dimension. The nodule was extensively hemorrhagic and cystic with a rim of viable material which ranges in appearance from papillary architecture to follicular structures. There is no evidence of a higher grade component. There is no definitive lymphovascular space invasion identified. In some areas, the tumor cells have oncocytic cytoplasm, however, the cells do not meet criteria for tall-cell variant of papillary thyroid carcinoma. * SIDDIQI (02/17/10): Rx 131-Iodine 102.4 mCi, Thyrogen-stim * Scan (02/24/10): post-treatment scan (Thyrogen-stim) shows uptake in left neck, also in liver area. SPECT images show one focus of uptake in lateral segment of the left lobe of the liver, one in the medial segment of the left lobe of liver, and one in the posterior segment of the right lobe of the liver. (05/03/11): Thyrogen stim 123-Iodine scan negative * Thyroglobulin Component Thyroglobulin TG Antibody Screen Stimulation Latest Ref Rng 0.8 - 49.0 ng/mL <14.4 IU/mL 11/05/2009 75.7 (H) 1.0 01/18/2010 <0.2 (L) 1.1 02/16/2010 0.3 (L) 1.0 Thyrogen 07/05/2010 <0.2 (L) 1.3 12/27/2010 <0.2 (L) 1.3 05/08/2011 <0.2 (L) 1.1 Thyrogen 07/24/2011 <0.2 (L) 1.5 01/23/2012 <0.2 (L) 1.0 07/27/2012 <0.2 (L) <1.0 02/18/2013 <0.2 (L) <1.0 08/12/2013 <0.2 (L) <1.0 * mRNA (11/03/09): TSH-R mRNA=1.7 ng/ug (11/30/09): TSH-R mRNA=1.8 ng/ug (01/18/10): no TSH-R mRNA assay postop (07/05/10): TSH-R mRNA <1.0 ng/ug (12/27/10): TSH-R mRNA <1.0 ng/ug * Ultrasound (01/18/10): no suspicious adenopathy along great vessels or in lateral neck on either side. No masses in thyroid bed. (12/27/10): no suspicious adenopathy along great vessels or in lateral neck on either side. No masses in thyroid bed. (01/24/12): no suspicious adenopathy along great vessels or in lateral neck on either side. No masses in thyroid bed. (08/11/13): no suspicious adenopathy along great vessels or in lateral neck on either side. No masses in thyroid bed. Thyroid nodule 10/20/2009 03/02/2010 Incisional hernia without mention of obstruction or gangrene 09/12/2005 08/12/2014 Symptomatic menopausal or female climacteric sta aniceto 04/07/2003 10/15/2017 Diabetes mellitus type 2 03/02/2003 014 Overview: *Type (): dx type 2 diabetes *Control hx Component Hemoglobin A1C Latest Ref Rng 4.0 - 6.0 % 01/17/2011 6.8 05/08/2011 7.2 07/24/2011 6.8 01/23/2012 6.7 07/27/2012 6.1 (H) 02/18/2013 6.4 (H) 08/08/2013 7.0 (H) 10/13/2013 7.1 (H) 02/17/14 7.3 * Eye hx (10/2008): no DM changes per Dr. Campoverde (07/2013): no DM changes per pt, exam Dr. Campoverde * Renal hx Component Albumin/Creat Ratio Latest Ref Rng 0 - 30 mg/g 04/03/2005 8 05/03/2006 8 03/26/2008 13 01/22/2009 18 02/16/2010 10 07/05/2010 9 05/08/2011 13 08/08/2013 9 * Vascular hx (11/12/13): no hx [place], stroke, Component Latest Ref Rng 02/18/2013 08/12/2013 10/13/2013 Triglyceride 30 - 149 mg/dL 114 123 126 Cholesterol 100 - 199 mg/dL 196 192 187 HDL Cholesterol >55 mg/dL 47 (L) 58 52 (L) VLDL Cholesterol 6 - 40 mg/dL 23 25 25 LDL Cholesterol 60 - 129 mg/dL 126 109 110 Fasting Time FASTING FASTING fasting TC:HDL Ratio 1.00 - 5.00 4.17 3.31 3.60 LDL:HDL Ratio 0.50 - 3.55 2.68 1.88 2.12 Non HDL Cholesterol 90 - 159 mg/dL 149 134 135 * Sleep (11/12/13): has obstructive sleep apnea, uses BiPAP since titration 04/07/13 * Exercise (11/12/13): not exercisnig * Medications (11/12/13): Victoza 1.8 mg daily, metformin 500 mg 2-1-1, * Physician (11/12/13): primary physician is Hayley Malone Morbid obesity 03/02/2003 07/15/2014 HYPERLIPIDEMIA NEC/NOS 5 documented as of this encounter (statuses as of 09/14/2022) [facility]2020 History of Past illness Narrative* Problem Noted Date Resolved Date Postoperative abdominal pain 07/12/202011/2020 Mild protein-calorie malnutrition 06/28/2020 06/29/2020 Infected prosthetic mesh of abdominal wall 06/2006/30/2020 Obesity, Class II, BMI 35-39.9 06/13/2019 1 10/17/2019 SBO (small bowel obstruction) 06/07/2019 Morbid obesity 03/10/2019 06/13/2019 Abnormal cardiovascular stress test 09/11/2017 10/15/2017 Primary osteoarthritis of right hip 11/27/2016 08/18/2020 Trochanteric bursitis of right hip 11/27/2016 08/18/2020 Dyspnea, unspecified 03/08/2016 08/16/2020 Angiomyolipoma of right kidney 01/11/2016 1 Essential hypertension with goal blood pressure less than 140/90 12/13/2015 04/12/2017 Obstructive sleep apnea syndrome 12/13/2015 04/12/2017 Superficial skin infection 08/31/201503/13 CKD stage 3 due to type 2 diabetes mellitus 01/1011/16/2018 Overview: Dr. Lilian Vance, nephrology BMI 45.0-49.9, adult 02/06/2015 12/01/2019 Venous insufficiency 02/06/2015 04/12/2017 DM type 2 causing CKD stage 3 09/21/2014 Overview: Dr Landen Best, endocrinology Degenerative arthritis of hip 07/01/2014 BMI 45.0-49.9, adult 03/31/2014 10/13/2014 Diabetes mellitus type II, uncontrolled 11/26/19 14 02/06/2015 BMI 40.0-44.9, adult 10/14/2013 03/31/2014 Chest pain 09/13/2012 03/13/2016 Overview: Substernal pressure lasting ~5hrs, partially relieved with SLN. Significant risk factors for CAD (HTN, HLD, DM). EKG does to show ST changes. Initial CE at [facility] are supposedly negative. Prior stress test in 2010 was normal. DM well controlled. Currently low likelihood for ACS. - EKG - trend Donald - stress test vs [facility] S/P total knee replacement using cement 07/02/20 12 07/15/2018 Degenerative arthritis of right knee 06/10/2012 08/12/2014 Allergic contact dermatitis due to metals 201108/16/2020 Sensorineural hearing loss, bilateral 07/19/2011 08/16/2020 Diverticulosis 08/23/2010 03/13/2016 Thyroid CA 02/21/2010 08/12/2014 Overview: * Surgery (12/15/09): total thyroidectomy, Dr. Jamey Ibrahim, [facility] * Path (10/29/09): FNA Atypical cells present in a background of cyst contents, suspicious for papillary thyroid carcinoma (12/15/09): single well-circumscribed nodule in the right inferior lobe, which measured 3.5 cm in greatest dimension. The nodule was extensively hemorrhagic and cystic with a rim of viable material which ranges in appearance from papillary architecture to follicular structures. There is no evidence of a higher grade component. There is no definitive lymphovascular space invasion identified. In some areas, the tumor cells have oncocytic cytoplasm, however, the cells do not meet criteria for tall-cell variant of papillary thyroid carcinoma. * SIDDIQI (02/17/10): Rx 131-Iodine 102.4 mCi, Thyrogen-stim * Scan (02/24/10): post-treatment scan (Thyrogen-stim) shows uptake in left neck, also in liver area. SPECT images show one focus of uptake in lateral segment of the left lobe of the liver, one in the medial segment of the left lobe of liver, and one in the posterior segment of the right lobe of the liver. (05/03/11): Thyrogen stim 123-Iodine scan negative * Thyroglobulin Component Thyroglobulin TG Antibody Screen Stimulation Latest Ref Rng 0.8 - 49.0 ng/mL <14.4 IU/mL 11/05/2009 75.7 (H) 1.0 01/18/2010 <0.2 (L) 1.1 02/16/2010 0.3 (L) 1.0 Thyrogen 07/05/2010 <0.2 (L) 1.3 12/27/2010 <0.2 (L) 1.3 05/08/2011 <0.2 (L) 1.1 Thyrogen 07/24/2011 <0.2 (L) 1.5 01/23/2012 <0.2 (L) 1.0 07/27/2012 <0.2 (L) <1.0 02/18/2013 <0.2 (L) <1.0 08/12/2013 <0.2 (L) <1.0 * mRNA (11/03/09): TSH-R mRNA=1.7 ng/ug (11/30/09): TSH-R mRNA=1.8 ng/ug (01/18/10): no TSH-R mRNA assay postop (07/05/10): TSH-R mRNA <1.0 ng/ug (12/27/10): TSH-R mRNA <1.0 ng/ug * Ultrasound (01/18/10): no suspicious adenopathy along great vessels or in lateral neck on either side. No masses in thyroid bed. (12/27/10): no suspicious adenopathy along great vessels or in lateral neck on either side. No masses in thyroid bed. (01/24/12): no suspicious adenopathy along great vessels or in lateral neck on either side. No masses in thyroid bed. (08/11/13): no suspicious adenopathy along great vessels or in lateral neck on either side. No masses in thyroid bed. Thyroid nodule 10/20/2009 03/02/2010 Incisional hernia without mention of obstruction or gangrene 09/12/2005 08/12/2014 Symptomatic menopausal or female climacteric sta aniceto 04/07/2003 10/15/2017 Diabetes mellitus type 2 03/02/2003 014 Overview: *Type (): dx type 2 diabetes *Control hx Component Hemoglobin A1C Latest Ref Rng 4.0 - 6.0 % 01/17/2011 6.8 05/08/2011 7.2 07/24/2011 6.8 01/23/2012 6.7 07/27/2012 6.1 (H) 02/18/2013 6.4 (H) 08/08/2013 7.0 (H) 10/13/2013 7.1 (H) 02/17/14 7.3 * Eye hx (10/2008): no DM changes per Dr. Campoverde (07/2013): no DM changes per pt, exam Dr. Campoverde * Renal hx Component Albumin/Creat Ratio Latest Ref Rng 0 - 30 mg/g 04/03/2005 8 05/03/2006 8 03/26/2008 13 01/22/2009 18 02/16/2010 10 07/05/2010 9 05/08/2011 13 08/08/2013 9 * Vascular hx (11/12/13): no hx [place], stroke, Component Latest Ref Rng 02/18/2013 08/12/2013 10/13/2013 Triglyceride 30 - 149 mg/dL 114 123 126 Cholesterol 100 - 199 mg/dL 196 192 187 HDL Cholesterol >55 mg/dL 47 (L) 58 52 (L) VLDL Cholesterol 6 - 40 mg/dL 23 25 25 LDL Cholesterol 60 - 129 mg/dL 126 109 110 Fasting Time FASTING FASTING fasting TC:HDL Ratio 1.00 - 5.00 4.17 3.31 3.60 LDL:HDL Ratio 0.50 - 3.55 2.68 1.88 2.12 Non HDL Cholesterol 90 - 159 mg/dL 149 134 135 * Sleep (11/12/13): has obstructive sleep apnea, uses BiPAP since titration 04/07/13 * Exercise (11/12/13): not exercisnig * Medications (11/12/13): Victoza 1.8 mg daily, metformin 500 mg 2-1-1, * Physician (11/12/13): primary physician is Hayley Malone Morbid obesity 03/02/2003 07/15/2014 HYPERLIPIDEMIA NEC/NOS 5 documented as of this encounter (statuses as of 09/14/2022) [facility]11-[facility]-2020 History of Past illness Narrative* Problem Noted Date Resolved Date Postoperative abdominal pain 07/12/202011/2020 Mild protein-calorie malnutrition 06/28/2020 06/29/2020 Infected prosthetic mesh of abdominal wall 06/2006/30/2020 Obesity, Class II, BMI 35-39.9 06/13/2019 1 10/17/2019 SBO (small bowel obstruction) 06/07/2019 Morbid obesity 03/10/2019 06/13/2019 Abnormal cardiovascular stress test 09/11/2017 10/15/2017 Primary osteoarthritis of right hip 11/27/2016 08/18/2020 Trochanteric bursitis of right hip 11/27/2016 08/18/2020 Dyspnea, unspecified 03/08/2016 08/16/2020 Angiomyolipoma of right kidney 01/11/2016 1 Essential hypertension with goal blood pressure less than 140/90 12/13/2015 04/12/2017 Obstructive sleep apnea syndrome 12/13/2015 04/12/2017 Superficial skin infection 08/31/201503/13 CKD stage 3 due to type 2 diabetes mellitus 01/1011/16/2018 Overview: Dr. Lilian Vance, nephrology BMI 45.0-49.9, adult 02/06/2015 12/01/2019 Venous insufficiency 02/06/2015 04/12/2017 DM type 2 causing CKD stage 3 09/21/2014 Overview: Dr Landen Best, endocrinology Degenerative arthritis of hip 07/01/2014 BMI 45.0-49.9, adult 03/31/2014 10/13/2014 Diabetes mellitus type II, uncontrolled 11/26/19 14 02/06/2015 BMI 40.0-44.9, adult 10/14/2013 03/31/2014 Chest pain 09/13/2012 03/13/2016 Overview: Substernal pressure lasting ~5hrs, partially relieved with SLN. Significant risk factors for CAD (HTN, HLD, DM). EKG does to show ST changes. Initial CE at [facility] are supposedly negative. Prior stress test in 2010 was normal. DM well controlled. Currently low likelihood for ACS. - EKG - trend Donald - stress test vs [facility] S/P total knee replacement using cement 07/02/20 12 07/15/2018 Degenerative arthritis of right knee 06/10/2012 08/12/2014 Allergic contact dermatitis due to metals 201108/16/2020 Sensorineural hearing loss, bilateral 07/19/2011 08/16/2020 Diverticulosis 08/23/2010 03/13/2016 Thyroid CA 02/21/2010 08/12/2014 Overview: * Surgery (12/15/09): total thyroidectomy, Dr. Jamey Ibrahim, [facility] * Path (10/29/09): FNA Atypical cells present in a background of cyst contents, suspicious for papillary thyroid carcinoma (12/15/09): single well-circumscribed nodule in the right inferior lobe, which measured 3.5 cm in greatest dimension. The nodule was extensively hemorrhagic and cystic with a rim of viable material which ranges in appearance from papillary architecture to follicular structures. There is no evidence of a higher grade component. There is no definitive lymphovascular space invasion identified. In some areas, the tumor cells have oncocytic cytoplasm, however, the cells do not meet criteria for tall-cell variant of papillary thyroid carcinoma. * SIDDIQI (02/17/10): Rx 131-Iodine 102.4 mCi, Thyrogen-stim * Scan (02/24/10): post-treatment scan (Thyrogen-stim) shows uptake in left neck, also in liver area. SPECT images show one focus of uptake in lateral segment of the left lobe of the liver, one in the medial segment of the left lobe of liver, and one in the posterior segment of the right lobe of the liver. (05/03/11): Thyrogen stim 123-Iodine scan negative * Thyroglobulin Component Thyroglobulin TG Antibody Screen Stimulation Latest Ref Rng 0.8 - 49.0 ng/mL <14.4 IU/mL 11/05/2009 75.7 (H) 1.0 01/18/2010 <0.2 (L) 1.1 02/16/2010 0.3 (L) 1.0 Thyrogen 07/05/2010 <0.2 (L) 1.3 12/27/2010 <0.2 (L) 1.3 05/08/2011 <0.2 (L) 1.1 Thyrogen 07/24/2011 <0.2 (L) 1.5 01/23/2012 <0.2 (L) 1.0 07/27/2012 <0.2 (L) <1.0 02/18/2013 <0.2 (L) <1.0 08/12/2013 <0.2 (L) <1.0 * mRNA (11/03/09): TSH-R mRNA=1.7 ng/ug (11/30/09): TSH-R mRNA=1.8 ng/ug (01/18/10): no TSH-R mRNA assay postop (07/05/10): TSH-R mRNA <1.0 ng/ug (12/27/10): TSH-R mRNA <1.0 ng/ug * Ultrasound (01/18/10): no suspicious adenopathy along great vessels or in lateral neck on either side. No masses in thyroid bed. (12/27/10): no suspicious adenopathy along great vessels or in lateral neck on either side. No masses in thyroid bed. (01/24/12): no suspicious adenopathy along great vessels or in lateral neck on either side. No masses in thyroid bed. (08/11/13): no suspicious adenopathy along great vessels or in lateral neck on either side. No masses in thyroid bed. Thyroid nodule 10/20/2009 03/02/2010 Incisional hernia without mention of obstruction or gangrene 09/12/2005 08/12/2014 Symptomatic menopausal or female climacteric sta aniceto 04/07/2003 10/15/2017 Diabetes mellitus type 2 03/02/2003 014 Overview: *Type (): dx type 2 diabetes *Control hx Component Hemoglobin A1C Latest Ref Rng 4.0 - 6.0 % 01/17/2011 6.8 05/08/2011 7.2 07/24/2011 6.8 01/23/2012 6.7 07/27/2012 6.1 (H) 02/18/2013 6.4 (H) 08/08/2013 7.0 (H) 10/13/2013 7.1 (H) 02/17/14 7.3 * Eye hx (10/2008): no DM changes per Dr. Campoverde (07/2013): no DM changes per pt, exam Dr. Campoverde * Renal hx Component Albumin/Creat Ratio Latest Ref Rng 0 - 30 mg/g 04/03/2005 8 05/03/2006 8 03/26/2008 13 01/22/2009 18 02/16/2010 10 07/05/2010 9 05/08/2011 13 08/08/2013 9 * Vascular hx (11/12/13): no hx [place], stroke, Component Latest Ref Rng 02/18/2013 08/12/2013 10/13/2013 Triglyceride 30 - 149 mg/dL 114 123 126 Cholesterol 100 - 199 mg/dL 196 192 187 HDL Cholesterol >55 mg/dL 47 (L) 58 52 (L) VLDL Cholesterol 6 - 40 mg/dL 23 25 25 LDL Cholesterol 60 - 129 mg/dL 126 109 110 Fasting Time FASTING FASTING fasting TC:HDL Ratio 1.00 - 5.00 4.17 3.31 3.60 LDL:HDL Ratio 0.50 - 3.55 2.68 1.88 2.12 Non HDL Cholesterol 90 - 159 mg/dL 149 134 135 * Sleep (11/12/13): has obstructive sleep apnea, uses BiPAP since titration 04/07/13 * Exercise (11/12/13): not exercisnig * Medications (11/12/13): Victoza 1.8 mg daily, metformin 500 mg 2-1-1, * Physician (11/12/13): primary physician is Hayley Malone Morbid obesity 03/02/2003 07/15/2014 HYPERLIPIDEMIA NEC/NOS 5 documented as of this encounter (statuses as of 09/26/2022) [facility] History of Past illness Narrative* Problem Noted Date Resolved Date Postoperative abdominal pain 07/12/202011/2020 Mild protein-calorie malnutrition 06/28/2020 06/29/2020 Infected prosthetic mesh of abdominal wall 06/2006/30/2020 Obesity, Class II, BMI 35-39.9 06/13/2019 1 10/17/2019 SBO (small bowel obstruction) 06/07/2019 Morbid obesity 03/10/2019 06/13/2019 Abnormal cardiovascular stress test 09/11/2017 10/15/2017 Primary osteoarthritis of right hip 11/27/2016 08/18/2020 Trochanteric bursitis of right hip 11/27/2016 08/18/2020 Dyspnea, unspecified 03/08/2016 08/16/2020 Angiomyolipoma of right kidney 01/11/2016 1 Essential hypertension with goal blood pressure less than 140/90 12/13/2015 04/12/2017 Obstructive sleep apnea syndrome 12/13/2015 04/12/2017 Superficial skin infection 08/31/201503/13 CKD stage 3 due to type 2 diabetes mellitus 01/1011/16/2018 Overview: Dr. Lilian Vance, nephrology BMI 45.0-49.9, adult 02/06/2015 12/01/2019 Venous insufficiency 02/06/2015 04/12/2017 DM type 2 causing CKD stage 3 09/21/2014 Overview: Dr Landen Best, endocrinology Degenerative arthritis of hip 07/01/2014 BMI 45.0-49.9, adult 03/31/2014 10/13/2014 Diabetes mellitus type II, uncontrolled 11/26/19 14 02/06/2015 BMI 40.0-44.9, adult 10/14/2013 03/31/2014 Chest pain 09/13/2012 03/13/2016 Overview: Substernal pressure lasting ~5hrs, partially relieved with SLN. Significant risk factors for CAD (HTN, HLD, DM). EKG does to show ST changes. Initial CE at [facility] are supposedly negative. Prior stress test in 2010 was normal. DM well controlled. Currently low likelihood for ACS. - EKG - trend Donald - stress test vs [facility] S/P total knee replacement using cement 07/02/20 12 07/15/2018 Degenerative arthritis of right knee 06/10/2012 08/12/2014 Allergic contact dermatitis due to metals 201108/16/2020 Sensorineural hearing loss, bilateral 07/19/2011 08/16/2020 Diverticulosis 08/23/2010 03/13/2016 Thyroid CA 02/21/2010 08/12/2014 Overview: * Surgery (12/15/09): total thyroidectomy, Dr. Jamey Ibrahim, [facility] * Path (10/29/09): FNA Atypical cells present in a background of cyst contents, suspicious for papillary thyroid carcinoma (12/15/09): single well-circumscribed nodule in the right inferior lobe, which measured 3.5 cm in greatest dimension. The nodule was extensively hemorrhagic and cystic with a rim of viable material which ranges in appearance from papillary architecture to follicular structures. There is no evidence of a higher grade component. There is no definitive lymphovascular space invasion identified. In some areas, the tumor cells have oncocytic cytoplasm, however, the cells do not meet criteria for tall-cell variant of papillary thyroid carcinoma. * SIDDIQI (02/17/10): Rx 131-Iodine 102.4 mCi, Thyrogen-stim * Scan (02/24/10): post-treatment scan (Thyrogen-stim) shows uptake in left neck, also in liver area. SPECT images show one focus of uptake in lateral segment of the left lobe of the liver, one in the medial segment of the left lobe of liver, and one in the posterior segment of the right lobe of the liver. (05/03/11): Thyrogen stim 123-Iodine scan negative * Thyroglobulin Component Thyroglobulin TG Antibody Screen Stimulation Latest Ref Rng 0.8 - 49.0 ng/mL <14.4 IU/mL 11/05/2009 75.7 (H) 1.0 01/18/2010 <0.2 (L) 1.1 02/16/2010 0.3 (L) 1.0 Thyrogen 07/05/2010 <0.2 (L) 1.3 12/27/2010 <0.2 (L) 1.3 05/08/2011 <0.2 (L) 1.1 Thyrogen 07/24/2011 <0.2 (L) 1.5 01/23/2012 <0.2 (L) 1.0 07/27/2012 <0.2 (L) <1.0 02/18/2013 <0.2 (L) <1.0 08/12/2013 <0.2 (L) <1.0 * mRNA (11/03/09): TSH-R mRNA=1.7 ng/ug (11/30/09): TSH-R mRNA=1.8 ng/ug (01/18/10): no TSH-R mRNA assay postop (07/05/10): TSH-R mRNA <1.0 ng/ug (12/27/10): TSH-R mRNA <1.0 ng/ug * Ultrasound (01/18/10): no suspicious adenopathy along great vessels or in lateral neck on either side. No masses in thyroid bed. (12/27/10): no suspicious adenopathy along great vessels or in lateral neck on either side. No masses in thyroid bed. (01/24/12): no suspicious adenopathy along great vessels or in lateral neck on either side. No masses in thyroid bed. (08/11/13): no suspicious adenopathy along great vessels or in lateral neck on either side. No masses in thyroid bed. Thyroid nodule 10/20/2009 03/02/2010 Incisional hernia without mention of obstruction or gangrene 09/12/2005 08/12/2014 Symptomatic menopausal or female climacteric sta aniceto 04/07/2003 10/15/2017 Diabetes mellitus type 2 03/02/2003 014 Overview: *Type (): dx type 2 diabetes *Control hx Component Hemoglobin A1C Latest Ref Rng 4.0 - 6.0 % 01/17/2011 6.8 05/08/2011 7.2 07/24/2011 6.8 01/23/2012 6.7 07/27/2012 6.1 (H) 02/18/2013 6.4 (H) 08/08/2013 7.0 (H) 10/13/2013 7.1 (H) 02/17/14 7.3 * Eye hx (10/2008): no DM changes per Dr. Campoverde (07/2013): no DM changes per pt, exam Dr. Campoverde * Renal hx Component Albumin/Creat Ratio Latest Ref Rng 0 - 30 mg/g 04/03/2005 8 05/03/2006 8 03/26/2008 13 01/22/2009 18 02/16/2010 10 07/05/2010 9 05/08/2011 13 08/08/2013 9 * Vascular hx (11/12/13): no hx [place], stroke, Component Latest Ref Rng 02/18/2013 08/12/2013 10/13/2013 Triglyceride 30 - 149 mg/dL 114 123 126 Cholesterol 100 - 199 mg/dL 196 192 187 HDL Cholesterol >55 mg/dL 47 (L) 58 52 (L) VLDL Cholesterol 6 - 40 mg/dL 23 25 25 LDL Cholesterol 60 - 129 mg/dL 126 109 110 Fasting Time FASTING FASTING fasting TC:HDL Ratio 1.00 - 5.00 4.17 3.31 3.60 LDL:HDL Ratio 0.50 - 3.55 2.68 1.88 2.12 Non HDL Cholesterol 90 - 159 mg/dL 149 134 135 * Sleep (11/12/13): has obstructive sleep apnea, uses BiPAP since titration 04/07/13 * Exercise (11/12/13): not exercisnig * Medications (11/12/13): Victoza 1.8 mg daily, metformin 500 mg 2-1-1, * Physician (11/12/13): primary physician is Hayley Malone Morbid obesity 03/02/2003 07/15/2014 HYPERLIPIDEMIA NEC/NOS 5 documented as of this encounter (statuses as of 09/28/2022) [facility] History of Past illness Narrative* Problem Noted Date Resolved Date Postoperative abdominal pain 07/12/202011/2020 Mild protein-calorie malnutrition 06/28/2020 06/29/2020 Infected prosthetic mesh of abdominal wall 06/2006/30/2020 Obesity, Class II, BMI 35-39.9 06/13/2019 1 10/17/2019 SBO (small bowel obstruction) 06/07/2019 Morbid obesity 03/10/2019 06/13/2019 Abnormal cardiovascular stress test 09/11/2017 10/15/2017 Primary osteoarthritis of right hip 11/27/2016 08/18/2020 Trochanteric bursitis of right hip 11/27/2016 08/18/2020 Dyspnea, unspecified 03/08/2016 08/16/2020 Angiomyolipoma of right kidney 01/11/2016 1 Essential hypertension with goal blood pressure less than 140/90 12/13/2015 04/12/2017 Obstructive sleep apnea syndrome 12/13/2015 04/12/2017 Superficial skin infection 08/31/201503/13 CKD stage 3 due to type 2 diabetes mellitus 01/1011/16/2018 Overview: Dr. Lilian Vance, nephrology BMI 45.0-49.9, adult 02/06/2015 12/01/2019 Venous insufficiency 02/06/2015 04/12/2017 DM type 2 causing CKD stage 3 09/21/2014 Overview: Dr Landen Best, endocrinology Degenerative arthritis of hip 07/01/2014 BMI 45.0-49.9, adult 03/31/2014 10/13/2014 Diabetes mellitus type II, uncontrolled 11/26/19 14 02/06/2015 BMI 40.0-44.9, adult 10/14/2013 03/31/2014 Chest pain 09/13/2012 03/13/2016 Overview: Substernal pressure lasting ~5hrs, partially relieved with SLN. Significant risk factors for CAD (HTN, HLD, DM). EKG does to show ST changes. Initial CE at [facility] are supposedly negative. Prior stress test in 2010 was normal. DM well controlled. Currently low likelihood for ACS. - EKG - trend Donald - stress test vs [facility] S/P total knee replacement using cement 07/02/20 12 07/15/2018 Degenerative arthritis of right knee 06/10/2012 08/12/2014 Allergic contact dermatitis due to metals 201108/16/2020 Sensorineural hearing loss, bilateral 07/19/2011 08/16/2020 Diverticulosis 08/23/2010 03/13/2016 Thyroid CA 02/21/2010 08/12/2014 Overview: * Surgery (12/15/09): total thyroidectomy, Dr. ASHLEY Zazueta * Path (10/29/09): FNA Atypical cells present in a background of cyst contents, suspicious for papillary thyroid carcinoma (12/15/09): single well-circumscribed nodule in the right inferior lobe, which measured 3.5 cm in greatest dimension. The nodule was extensively hemorrhagic and cystic with a rim of viable material which ranges in appearance from papillary architecture to follicular structures. There is no evidence of a higher grade component. There is no definitive lymphovascular space invasion identified. In some areas, the tumor cells have oncocytic cytoplasm, however, the cells do not meet criteria for tall-cell variant of papillary thyroid carcinoma. * SIDDIQI (02/17/10): Rx 131-Iodine 102.4 mCi, Thyrogen-stim * Scan (02/24/10): post-treatment scan (Thyrogen-stim) shows uptake in left neck, also in liver area. SPECT images show one focus of uptake in lateral segment of the left lobe of the liver, one in the medial segment of the left lobe of liver, and one in the posterior segment of the right lobe of the liver. (05/03/11): Thyrogen stim 123-Iodine scan negative * Thyroglobulin Component Thyroglobulin TG Antibody Screen Stimulation Latest Ref Rng 0.8 - 49.0 ng/mL <14.4 IU/mL 11/05/2009 75.7 (H) 1.0 01/18/2010 <0.2 (L) 1.1 02/16/2010 0.3 (L) 1.0 Thyrogen 07/05/2010 <0.2 (L) 1.3 12/27/2010 <0.2 (L) 1.3 05/08/2011 <0.2 (L) 1.1 Thyrogen 07/24/2011 <0.2 (L) 1.5 01/23/2012 <0.2 (L) 1.0 07/27/2012 <0.2 (L) <1.0 02/18/2013 <0.2 (L) <1.0 08/12/2013 <0.2 (L) <1.0 * mRNA (11/03/09): TSH-R mRNA=1.7 ng/ug (11/30/09): TSH-R mRNA=1.8 ng/ug (01/18/10): no TSH-R mRNA assay postop (07/05/10): TSH-R mRNA <1.0 ng/ug (12/27/10): TSH-R mRNA <1.0 ng/ug * Ultrasound (01/18/10): no suspicious adenopathy along great vessels or in lateral neck on either side. No masses in thyroid bed. (12/27/10): no suspicious adenopathy along great vessels or in lateral neck on either side. No masses in thyroid bed. (01/24/12): no suspicious adenopathy along great vessels or in lateral neck on either side. No masses in thyroid bed. (08/11/13): no suspicious adenopathy along great vessels or in lateral neck on either side. No masses in thyroid bed. Thyroid nodule 10/20/2009 03/02/2010 Incisional hernia without mention of obstruction or gangrene 09/12/2005 08/12/2014 Symptomatic menopausal or female climacteric sta aniceto 04/07/2003 10/15/2017 Diabetes mellitus type 2 03/02/2003 014 Overview: *Type (): dx type 2 diabetes *Control hx Component Hemoglobin A1C Latest Ref Rng 4.0 - 6.0 % 01/17/2011 6.8 05/08/2011 7.2 07/24/2011 6.8 01/23/2012 6.7 07/27/2012 6.1 (H) 02/18/2013 6.4 (H) 08/08/2013 7.0 (H) 10/13/2013 7.1 (H) 02/17/14 7.3 * Eye hx (10/2008): no DM changes per Dr. Campoverde (07/2013): no DM changes per pt, exam Dr. Campoverde * Renal hx Component Albumin/Creat Ratio Latest Ref Rng 0 - 30 mg/g 04/03/2005 8 05/03/2006 8 03/26/2008 13 01/22/2009 18 02/16/2010 10 07/05/2010 9 05/08/2011 13 08/08/2013 9 * Vascular hx (11/12/13): no hx [place], stroke, Component Latest Ref Rng 02/18/2013 08/12/2013 10/13/2013 Triglyceride 30 - 149 mg/dL 114 123 126 Cholesterol 100 - 199 mg/dL 196 192 187 HDL Cholesterol >55 mg/dL 47 (L) 58 52 (L) VLDL Cholesterol 6 - 40 mg/dL 23 25 25 LDL Cholesterol 60 - 129 mg/dL 126 109 110 Fasting Time FASTING FASTING fasting TC:HDL Ratio 1.00 - 5.00 4.17 3.31 3.60 LDL:HDL Ratio 0.50 - 3.55 2.68 1.88 2.12 Non HDL Cholesterol 90 - 159 mg/dL 149 134 135 * Sleep (11/12/13): has obstructive sleep apnea, uses BiPAP since titration 04/07/13 * Exercise (11/12/13): not exercisnig * Medications (11/12/13): Victoza 1.8 mg daily, metformin 500 mg 2-1-1, * Physician (11/12/13): primary physician is Hayley Malone Morbid obesity 03/02/2003 07/15/2014 HYPERLIPIDEMIA NEC/NOS 5 documented as of this encounter (statuses as of 10/10/2022) [facility]2020 History of Past illness Narrative* Problem Noted Date Resolved Date Postoperative abdominal pain 07/12/202011/2020 Mild protein-calorie malnutrition 06/28/2020 06/29/2020 Infected prosthetic mesh of abdominal wall 06/2006/30/2020 Obesity, Class II, BMI 35-39.9 06/13/2019 1 10/17/2019 SBO (small bowel obstruction) 06/07/2019 Morbid obesity 03/10/2019 06/13/2019 Abnormal cardiovascular stress test 09/11/2017 10/15/2017 Primary osteoarthritis of right hip 11/27/2016 08/18/2020 Trochanteric bursitis of right hip 11/27/2016 08/18/2020 Dyspnea, unspecified 03/08/2016 08/16/2020 Angiomyolipoma of right kidney 01/11/2016 1 Essential hypertension with goal blood pressure less than 140/90 12/13/2015 04/12/2017 Obstructive sleep apnea syndrome 12/13/2015 04/12/2017 Superficial skin infection 08/31/201503/13 CKD stage 3 due to type 2 diabetes mellitus 01/1011/16/2018 Overview: Dr. Lilian Vance, nephrology BMI 45.0-49.9, adult 02/06/2015 12/01/2019 Venous insufficiency 02/06/2015 04/12/2017 DM type 2 causing CKD stage 3 09/21/2014 Overview: Dr Landen Best, endocrinology Degenerative arthritis of hip 07/01/2014 BMI 45.0-49.9, adult 03/31/2014 10/13/2014 Diabetes mellitus type II, uncontrolled 11/26/19 14 02/06/2015 BMI 40.0-44.9, adult 10/14/2013 03/31/2014 Chest pain 09/13/2012 03/13/2016 Overview: Substernal pressure lasting ~5hrs, partially relieved with SLN. Significant risk factors for CAD (HTN, HLD, DM). EKG does to show ST changes. Initial CE at [facility] are supposedly negative. Prior stress test in 2010 was normal. DM well controlled. Currently low likelihood for ACS. - EKG - trend Donald - stress test vs [facility] S/P total knee replacement using cement 07/02/20 12 07/15/2018 Degenerative arthritis of right knee 06/10/2012 08/12/2014 Allergic contact dermatitis due to metals 201108/16/2020 Sensorineural hearing loss, bilateral 07/19/2011 08/16/2020 Diverticulosis 08/23/2010 03/13/2016 Thyroid CA 02/21/2010 08/12/2014 Overview: * Surgery (12/15/09): total thyroidectomy, Dr. Jamey Ibrahim, [facility] * Path (10/29/09): FNA Atypical cells present in a background of cyst contents, suspicious for papillary thyroid carcinoma (12/15/09): single well-circumscribed nodule in the right inferior lobe, which measured 3.5 cm in greatest dimension. The nodule was extensively hemorrhagic and cystic with a rim of viable material which ranges in appearance from papillary architecture to follicular structures. There is no evidence of a higher grade component. There is no definitive lymphovascular space invasion identified. In some areas, the tumor cells have oncocytic cytoplasm, however, the cells do not meet criteria for tall-cell variant of papillary thyroid carcinoma. * SIDDIQI (02/17/10): Rx 131-Iodine 102.4 mCi, Thyrogen-stim * Scan (02/24/10): post-treatment scan (Thyrogen-stim) shows uptake in left neck, also in liver area. SPECT images show one focus of uptake in lateral segment of the left lobe of the liver, one in the medial segment of the left lobe of liver, and one in the posterior segment of the right lobe of the liver. (05/03/11): Thyrogen stim 123-Iodine scan negative * Thyroglobulin Component Thyroglobulin TG Antibody Screen Stimulation Latest Ref Rng 0.8 - 49.0 ng/mL <14.4 IU/mL 11/05/2009 75.7 (H) 1.0 01/18/2010 <0.2 (L) 1.1 02/16/2010 0.3 (L) 1.0 Thyrogen 07/05/2010 <0.2 (L) 1.3 12/27/2010 <0.2 (L) 1.3 05/08/2011 <0.2 (L) 1.1 Thyrogen 07/24/2011 <0.2 (L) 1.5 01/23/2012 <0.2 (L) 1.0 07/27/2012 <0.2 (L) <1.0 02/18/2013 <0.2 (L) <1.0 08/12/2013 <0.2 (L) <1.0 * mRNA (11/03/09): TSH-R mRNA=1.7 ng/ug (11/30/09): TSH-R mRNA=1.8 ng/ug (01/18/10): no TSH-R mRNA assay postop (07/05/10): TSH-R mRNA <1.0 ng/ug (12/27/10): TSH-R mRNA <1.0 ng/ug * Ultrasound (01/18/10): no suspicious adenopathy along great vessels or in lateral neck on either side. No masses in thyroid bed. (12/27/10): no suspicious adenopathy along great vessels or in lateral neck on either side. No masses in thyroid bed. (01/24/12): no suspicious adenopathy along great vessels or in lateral neck on either side. No masses in thyroid bed. (08/11/13): no suspicious adenopathy along great vessels or in lateral neck on either side. No masses in thyroid bed. Thyroid nodule 10/20/2009 03/02/2010 Incisional hernia without mention of obstruction or gangrene 09/12/2005 08/12/2014 Symptomatic menopausal or female climacteric sta aniceto 04/07/2003 10/15/2017 Diabetes mellitus type 2 03/02/2003 014 Overview: *Type (): dx type 2 diabetes *Control hx Component Hemoglobin A1C Latest Ref Rng 4.0 - 6.0 % 01/17/2011 6.8 05/08/2011 7.2 07/24/2011 6.8 01/23/2012 6.7 07/27/2012 6.1 (H) 02/18/2013 6.4 (H) 08/08/2013 7.0 (H) 10/13/2013 7.1 (H) 02/17/14 7.3 * Eye hx (10/2008): no DM changes per Dr. Campoverde (07/2013): no DM changes per pt, exam Dr. Campoverde * Renal hx Component Albumin/Creat Ratio Latest Ref Rng 0 - 30 mg/g 04/03/2005 8 05/03/2006 8 03/26/2008 13 01/22/2009 18 02/16/2010 10 07/05/2010 9 05/08/2011 13 08/08/2013 9 * Vascular hx (11/12/13): no hx [place], stroke, Component Latest Ref Rng 02/18/2013 08/12/2013 10/13/2013 Triglyceride 30 - 149 mg/dL 114 123 126 Cholesterol 100 - 199 mg/dL 196 192 187 HDL Cholesterol >55 mg/dL 47 (L) 58 52 (L) VLDL Cholesterol 6 - 40 mg/dL 23 25 25 LDL Cholesterol 60 - 129 mg/dL 126 109 110 Fasting Time FASTING FASTING fasting TC:HDL Ratio 1.00 - 5.00 4.17 3.31 3.60 LDL:HDL Ratio 0.50 - 3.55 2.68 1.88 2.12 Non HDL Cholesterol 90 - 159 mg/dL 149 134 135 * Sleep (11/12/13): has obstructive sleep apnea, uses BiPAP since titration 04/07/13 * Exercise (11/12/13): not exercisnig * Medications (11/12/13): Victoza 1.8 mg daily, metformin 500 mg 2-1-1, * Physician (11/12/13): primary physician is Hayley Malone Morbid obesity 03/02/2003 07/15/2014 HYPERLIPIDEMIA NEC/NOS 5 documented as of this encounter (statuses as of 10/20/2022) [facility]11-[facility]2020 History of Past illness Narrative* Problem Noted Date Resolved Date Postoperative abdominal pain 07/12/202011/2020 Mild protein-calorie malnutrition 06/28/2020 06/29/2020 Infected prosthetic mesh of abdominal wall 06/2006/30/2020 Obesity, Class II, BMI 35-39.9 06/13/2019 1 10/17/2019 SBO (small bowel obstruction) 06/07/2019 Morbid obesity 03/10/2019 06/13/2019 Abnormal cardiovascular stress test 09/11/2017 10/15/2017 Primary osteoarthritis of right hip 11/27/2016 08/18/2020 Trochanteric bursitis of right hip 11/27/2016 08/18/2020 Dyspnea, unspecified 03/08/2016 08/16/2020 Angiomyolipoma of right kidney 01/11/2016 1 Essential hypertension with goal blood pressure less than 140/90 12/13/2015 04/12/2017 Obstructive sleep apnea syndrome 12/13/2015 04/12/2017 Superficial skin infection 08/31/201503/13 CKD stage 3 due to type 2 diabetes mellitus 01/1011/16/2018 Overview: Dr. Lilian Vance, nephrology BMI 45.0-49.9, adult 02/06/2015 12/01/2019 Venous insufficiency 02/06/2015 04/12/2017 DM type 2 causing CKD stage 3 09/21/2014 Overview: Dr Landen Best, endocrinology Degenerative arthritis of hip 07/01/2014 BMI 45.0-49.9, adult 03/31/2014 10/13/2014 Diabetes mellitus type II, uncontrolled 11/26/19 14 02/06/2015 BMI 40.0-44.9, adult 10/14/2013 03/31/2014 Chest pain 09/13/2012 03/13/2016 Overview: Substernal pressure lasting ~5hrs, partially relieved with SLN. Significant risk factors for CAD (HTN, HLD, DM). EKG does to show ST changes. Initial CE at [facility] are supposedly negative. Prior stress test in 2010 was normal. DM well controlled. Currently low likelihood for ACS. - EKG - trend Donald - stress test vs [facility] S/P total knee replacement using cement 07/02/20 12 07/15/2018 Degenerative arthritis of right knee 06/10/2012 08/12/2014 Allergic contact dermatitis due to metals 201108/16/2020 Sensorineural hearing loss, bilateral 07/19/2011 08/16/2020 Diverticulosis 08/23/2010 03/13/2016 Thyroid CA 02/21/2010 08/12/2014 Overview: * Surgery (12/15/09): total thyroidectomy, Dr. Jamey Ibrahim, [facility] * Path (10/29/09): FNA Atypical cells present in a background of cyst contents, suspicious for papillary thyroid carcinoma (12/15/09): single well-circumscribed nodule in the right inferior lobe, which measured 3.5 cm in greatest dimension. The nodule was extensively hemorrhagic and cystic with a rim of viable material which ranges in appearance from papillary architecture to follicular structures. There is no evidence of a higher grade component. There is no definitive lymphovascular space invasion identified. In some areas, the tumor cells have oncocytic cytoplasm, however, the cells do not meet criteria for tall-cell variant of papillary thyroid carcinoma. * SIDDIQI (02/17/10): Rx 131-Iodine 102.4 mCi, Thyrogen-stim * Scan (02/24/10): post-treatment scan (Thyrogen-stim) shows uptake in left neck, also in liver area. SPECT images show one focus of uptake in lateral segment of the left lobe of the liver, one in the medial segment of the left lobe of liver, and one in the posterior segment of the right lobe of the liver. (05/03/11): Thyrogen stim 123-Iodine scan negative * Thyroglobulin Component Thyroglobulin TG Antibody Screen Stimulation Latest Ref Rng 0.8 - 49.0 ng/mL <14.4 IU/mL 11/05/2009 75.7 (H) 1.0 01/18/2010 <0.2 (L) 1.1 02/16/2010 0.3 (L) 1.0 Thyrogen 07/05/2010 <0.2 (L) 1.3 12/27/2010 <0.2 (L) 1.3 05/08/2011 <0.2 (L) 1.1 Thyrogen 07/24/2011 <0.2 (L) 1.5 01/23/2012 <0.2 (L) 1.0 07/27/2012 <0.2 (L) <1.0 02/18/2013 <0.2 (L) <1.0 08/12/2013 <0.2 (L) <1.0 * mRNA (11/03/09): TSH-R mRNA=1.7 ng/ug (11/30/09): TSH-R mRNA=1.8 ng/ug (01/18/10): no TSH-R mRNA assay postop (07/05/10): TSH-R mRNA <1.0 ng/ug (12/27/10): TSH-R mRNA <1.0 ng/ug * Ultrasound (01/18/10): no suspicious adenopathy along great vessels or in lateral neck on either side. No masses in thyroid bed. (12/27/10): no suspicious adenopathy along great vessels or in lateral neck on either side. No masses in thyroid bed. (01/24/12): no suspicious adenopathy along great vessels or in lateral neck on either side. No masses in thyroid bed. (08/11/13): no suspicious adenopathy along great vessels or in lateral neck on either side. No masses in thyroid bed. Thyroid nodule 10/20/2009 03/02/2010 Incisional hernia without mention of obstruction or gangrene 09/12/2005 08/12/2014 Symptomatic menopausal or female climacteric sta aniceto 04/07/2003 10/15/2017 Diabetes mellitus type 2 03/02/2003 014 Overview: *Type (): dx type 2 diabetes *Control hx Component Hemoglobin A1C Latest Ref Rng 4.0 - 6.0 % 01/17/2011 6.8 05/08/2011 7.2 07/24/2011 6.8 01/23/2012 6.7 07/27/2012 6.1 (H) 02/18/2013 6.4 (H) 08/08/2013 7.0 (H) 10/13/2013 7.1 (H) 02/17/14 7.3 * Eye hx (10/2008): no DM changes per Dr. Campoverde (07/2013): no DM changes per pt, exam Dr. Campoverde * Renal hx Component Albumin/Creat Ratio Latest Ref Rng 0 - 30 mg/g 04/03/2005 8 05/03/2006 8 03/26/2008 13 01/22/2009 18 02/16/2010 10 07/05/2010 9 05/08/2011 13 08/08/2013 9 * Vascular hx (11/12/13): no hx [place], stroke, Component Latest Ref Rng 02/18/2013 08/12/2013 10/13/2013 Triglyceride 30 - 149 mg/dL 114 123 126 Cholesterol 100 - 199 mg/dL 196 192 187 HDL Cholesterol >55 mg/dL 47 (L) 58 52 (L) VLDL Cholesterol 6 - 40 mg/dL 23 25 25 LDL Cholesterol 60 - 129 mg/dL 126 109 110 Fasting Time FASTING FASTING fasting TC:HDL Ratio 1.00 - 5.00 4.17 3.31 3.60 LDL:HDL Ratio 0.50 - 3.55 2.68 1.88 2.12 Non HDL Cholesterol 90 - 159 mg/dL 149 134 135 * Sleep (11/12/13): has obstructive sleep apnea, uses BiPAP since titration 04/07/13 * Exercise (11/12/13): not exercisnig * Medications (11/12/13): Victoza 1.8 mg daily, metformin 500 mg 2-1-1, * Physician (11/12/13): primary physician is Hayley Malone Morbid obesity 03/02/2003 07/15/2014 HYPERLIPIDEMIA NEC/NOS 5 documented as of this encounter (statuses as of 10/24/2022) [facility] History of Past illness Narrative* Problem Noted Date Resolved Date Postoperative abdominal pain 07/12/202011/2020 Mild protein-calorie malnutrition 06/28/2020 06/29/2020 Infected prosthetic mesh of abdominal wall 06/2006/30/2020 Obesity, Class II, BMI 35-39.9 06/13/2019 1 10/17/2019 SBO (small bowel obstruction) 06/07/2019 Morbid obesity 03/10/2019 06/13/2019 Abnormal cardiovascular stress test 09/11/2017 10/15/2017 Primary osteoarthritis of right hip 11/27/2016 08/18/2020 Trochanteric bursitis of right hip 11/27/2016 08/18/2020 Dyspnea, unspecified 03/08/2016 08/16/2020 Angiomyolipoma of right kidney 01/11/2016 1 Essential hypertension with goal blood pressure less than 140/90 12/13/2015 04/12/2017 Obstructive sleep apnea syndrome 12/13/2015 04/12/2017 Superficial skin infection 08/31/201503/13 CKD stage 3 due to type 2 diabetes mellitus 01/1011/16/2018 Overview: Dr. Lilian Vance, nephrology BMI 45.0-49.9, adult 02/06/2015 12/01/2019 Venous insufficiency 02/06/2015 04/12/2017 DM type 2 causing CKD stage 3 09/21/2014 Overview: Dr Landen Best, endocrinology Degenerative arthritis of hip 07/01/2014 BMI 45.0-49.9, adult 03/31/2014 10/13/2014 Diabetes mellitus type II, uncontrolled 11/26/19 14 02/06/2015 BMI 40.0-44.9, adult 10/14/2013 03/31/2014 Chest pain 09/13/2012 03/13/2016 Overview: Substernal pressure lasting ~5hrs, partially relieved with SLN. Significant risk factors for CAD (HTN, HLD, DM). EKG does to show ST changes. Initial CE at [facility] are supposedly negative. Prior stress test in 2010 was normal. DM well controlled. Currently low likelihood for ACS. - EKG - trend Donald - stress test vs [facility] S/P total knee replacement using cement 07/02/20 12 07/15/2018 Degenerative arthritis of right knee 06/10/2012 08/12/2014 Allergic contact dermatitis due to metals 201108/16/2020 Sensorineural hearing loss, bilateral 07/19/2011 08/16/2020 Diverticulosis 08/23/2010 03/13/2016 Thyroid CA 02/21/2010 08/12/2014 Overview: * Surgery (12/15/09): total thyroidectomy, Dr. Jamey Ibrahim, [facility] * Path (10/29/09): FNA Atypical cells present in a background of cyst contents, suspicious for papillary thyroid carcinoma (12/15/09): single well-circumscribed nodule in the right inferior lobe, which measured 3.5 cm in greatest dimension. The nodule was extensively hemorrhagic and cystic with a rim of viable material which ranges in appearance from papillary architecture to follicular structures. There is no evidence of a higher grade component. There is no definitive lymphovascular space invasion identified. In some areas, the tumor cells have oncocytic cytoplasm, however, the cells do not meet criteria for tall-cell variant of papillary thyroid carcinoma. * SIDDIQI (02/17/10): Rx 131-Iodine 102.4 mCi, Thyrogen-stim * Scan (02/24/10): post-treatment scan (Thyrogen-stim) shows uptake in left neck, also in liver area. SPECT images show one focus of uptake in lateral segment of the left lobe of the liver, one in the medial segment of the left lobe of liver, and one in the posterior segment of the right lobe of the liver. (05/03/11): Thyrogen stim 123-Iodine scan negative * Thyroglobulin Component Thyroglobulin TG Antibody Screen Stimulation Latest Ref Rng 0.8 - 49.0 ng/mL <14.4 IU/mL 11/05/2009 75.7 (H) 1.0 01/18/2010 <0.2 (L) 1.1 02/16/2010 0.3 (L) 1.0 Thyrogen 07/05/2010 <0.2 (L) 1.3 12/27/2010 <0.2 (L) 1.3 05/08/2011 <0.2 (L) 1.1 Thyrogen 07/24/2011 <0.2 (L) 1.5 01/23/2012 <0.2 (L) 1.0 07/27/2012 <0.2 (L) <1.0 02/18/2013 <0.2 (L) <1.0 08/12/2013 <0.2 (L) <1.0 * mRNA (11/03/09): TSH-R mRNA=1.7 ng/ug (11/30/09): TSH-R mRNA=1.8 ng/ug (01/18/10): no TSH-R mRNA assay postop (07/05/10): TSH-R mRNA <1.0 ng/ug (12/27/10): TSH-R mRNA <1.0 ng/ug * Ultrasound (01/18/10): no suspicious adenopathy along great vessels or in lateral neck on either side. No masses in thyroid bed. (12/27/10): no suspicious adenopathy along great vessels or in lateral neck on either side. No masses in thyroid bed. (01/24/12): no suspicious adenopathy along great vessels or in lateral neck on either side. No masses in thyroid bed. (08/11/13): no suspicious adenopathy along great vessels or in lateral neck on either side. No masses in thyroid bed. Thyroid nodule 10/20/2009 03/02/2010 Incisional hernia without mention of obstruction or gangrene 09/12/2005 08/12/2014 Symptomatic menopausal or female climacteric sta aniceto 04/07/2003 10/15/2017 Diabetes mellitus type 2 03/02/2003 014 Overview: *Type (): dx type 2 diabetes *Control hx Component Hemoglobin A1C Latest Ref Rng 4.0 - 6.0 % 01/17/2011 6.8 05/08/2011 7.2 07/24/2011 6.8 01/23/2012 6.7 07/27/2012 6.1 (H) 02/18/2013 6.4 (H) 08/08/2013 7.0 (H) 10/13/2013 7.1 (H) 02/17/14 7.3 * Eye hx (10/2008): no DM changes per Dr. Campoverde (07/2013): no DM changes per pt, exam Dr. Campoverde * Renal hx Component Albumin/Creat Ratio Latest Ref Rng 0 - 30 mg/g 04/03/2005 8 05/03/2006 8 03/26/2008 13 01/22/2009 18 02/16/2010 10 07/05/2010 9 05/08/2011 13 08/08/2013 9 * Vascular hx (11/12/13): no hx [place], stroke, Component Latest Ref Rng 02/18/2013 08/12/2013 10/13/2013 Triglyceride 30 - 149 mg/dL 114 123 126 Cholesterol 100 - 199 mg/dL 196 192 187 HDL Cholesterol >55 mg/dL 47 (L) 58 52 (L) VLDL Cholesterol 6 - 40 mg/dL 23 25 25 LDL Cholesterol 60 - 129 mg/dL 126 109 110 Fasting Time FASTING FASTING fasting TC:HDL Ratio 1.00 - 5.00 4.17 3.31 3.60 LDL:HDL Ratio 0.50 - 3.55 2.68 1.88 2.12 Non HDL Cholesterol 90 - 159 mg/dL 149 134 135 * Sleep (11/12/13): has obstructive sleep apnea, uses BiPAP since titration 04/07/13 * Exercise (11/12/13): not exercisnig * Medications (11/12/13): Victoza 1.8 mg daily, metformin 500 mg 2-1-1, * Physician (11/12/13): primary physician is Hayley Malone Morbid obesity 03/02/2003 07/15/2014 HYPERLIPIDEMIA NEC/NOS 5 documented as of this encounter (statuses as of 11/07/2022) [facility] History of Past illness Narrative* Problem Noted Date Resolved Date Postoperative abdominal pain 07/12/202011/2020 Mild protein-calorie malnutrition 06/28/2020 06/29/2020 Infected prosthetic mesh of abdominal wall 06/2006/30/2020 Obesity, Class II, BMI 35-39.9 06/13/2019 1 10/17/2019 SBO (small bowel obstruction) 06/07/2019 Morbid obesity 03/10/2019 06/13/2019 Abnormal cardiovascular stress test 09/11/2017 10/15/2017 Primary osteoarthritis of right hip 11/27/2016 08/18/2020 Trochanteric bursitis of right hip 11/27/2016 08/18/2020 Dyspnea, unspecified 03/08/2016 08/16/2020 Angiomyolipoma of right kidney 01/11/2016 1 Essential hypertension with goal blood pressure less than 140/90 12/13/2015 04/12/2017 Obstructive sleep apnea syndrome 12/13/2015 04/12/2017 Superficial skin infection 08/31/201503/13 CKD stage 3 due to type 2 diabetes mellitus 01/1011/16/2018 Overview: Dr. Lilian Vance, nephrology BMI 45.0-49.9, adult 02/06/2015 12/01/2019 Venous insufficiency 02/06/2015 04/12/2017 DM type 2 causing CKD stage 3 09/21/2014 Overview: Dr Landen Best, endocrinology Degenerative arthritis of hip 07/01/2014 BMI 45.0-49.9, adult 03/31/2014 10/13/2014 Diabetes mellitus type II, uncontrolled 11/26/19 14 02/06/2015 BMI 40.0-44.9, adult 10/14/2013 03/31/2014 Chest pain 09/13/2012 03/13/2016 Overview: Substernal pressure lasting ~5hrs, partially relieved with SLN. Significant risk factors for CAD (HTN, HLD, DM). EKG does to show ST changes. Initial CE at [facility] are supposedly negative. Prior stress test in 2010 was normal. DM well controlled. Currently low likelihood for ACS. - EKG - trend Donald - stress test vs [facility] S/P total knee replacement using cement 07/02/20 12 07/15/2018 Degenerative arthritis of right knee 06/10/2012 08/12/2014 Allergic contact dermatitis due to metals 201108/16/2020 Sensorineural hearing loss, bilateral 07/19/2011 08/16/2020 Diverticulosis 08/23/2010 03/13/2016 Thyroid CA 02/21/2010 08/12/2014 Overview: * Surgery (12/15/09): total thyroidectomy, Dr. Jamey Ibrahim, [facility] * Path (10/29/09): FNA Atypical cells present in a background of cyst contents, suspicious for papillary thyroid carcinoma (12/15/09): single well-circumscribed nodule in the right inferior lobe, which measured 3.5 cm in greatest dimension. The nodule was extensively hemorrhagic and cystic with a rim of viable material which ranges in appearance from papillary architecture to follicular structures. There is no evidence of a higher grade component. There is no definitive lymphovascular space invasion identified. In some areas, the tumor cells have oncocytic cytoplasm, however, the cells do not meet criteria for tall-cell variant of papillary thyroid carcinoma. * SIDDIQI (02/17/10): Rx 131-Iodine 102.4 mCi, Thyrogen-stim * Scan (02/24/10): post-treatment scan (Thyrogen-stim) shows uptake in left neck, also in liver area. SPECT images show one focus of uptake in lateral segment of the left lobe of the liver, one in the medial segment of the left lobe of liver, and one in the posterior segment of the right lobe of the liver. (05/03/11): Thyrogen stim 123-Iodine scan negative * Thyroglobulin Component Thyroglobulin TG Antibody Screen Stimulation Latest Ref Rng 0.8 - 49.0 ng/mL <14.4 IU/mL 11/05/2009 75.7 (H) 1.0 01/18/2010 <0.2 (L) 1.1 02/16/2010 0.3 (L) 1.0 Thyrogen 07/05/2010 <0.2 (L) 1.3 12/27/2010 <0.2 (L) 1.3 05/08/2011 <0.2 (L) 1.1 Thyrogen 07/24/2011 <0.2 (L) 1.5 01/23/2012 <0.2 (L) 1.0 07/27/2012 <0.2 (L) <1.0 02/18/2013 <0.2 (L) <1.0 08/12/2013 <0.2 (L) <1.0 * mRNA (11/03/09): TSH-R mRNA=1.7 ng/ug (11/30/09): TSH-R mRNA=1.8 ng/ug (01/18/10): no TSH-R mRNA assay postop (07/05/10): TSH-R mRNA <1.0 ng/ug (12/27/10): TSH-R mRNA <1.0 ng/ug * Ultrasound (01/18/10): no suspicious adenopathy along great vessels or in lateral neck on either side. No masses in thyroid bed. (12/27/10): no suspicious adenopathy along great vessels or in lateral neck on either side. No masses in thyroid bed. (01/24/12): no suspicious adenopathy along great vessels or in lateral neck on either side. No masses in thyroid bed. (08/11/13): no suspicious adenopathy along great vessels or in lateral neck on either side. No masses in thyroid bed. Thyroid nodule 10/20/2009 03/02/2010 Incisional hernia without mention of obstruction or gangrene 09/12/2005 08/12/2014 Symptomatic menopausal or female climacteric sta aniceto 04/07/2003 10/15/2017 Diabetes mellitus type 2 03/02/2003 014 Overview: *Type (): dx type 2 diabetes *Control hx Component Hemoglobin A1C Latest Ref Rng 4.0 - 6.0 % 01/17/2011 6.8 05/08/2011 7.2 07/24/2011 6.8 01/23/2012 6.7 07/27/2012 6.1 (H) 02/18/2013 6.4 (H) 08/08/2013 7.0 (H) 10/13/2013 7.1 (H) 02/17/14 7.3 * Eye hx (10/2008): no DM changes per Dr. Campoverde (07/2013): no DM changes per pt, exam Dr. Campoverde * Renal hx Component Albumin/Creat Ratio Latest Ref Rng 0 - 30 mg/g 04/03/2005 8 05/03/2006 8 03/26/2008 13 01/22/2009 18 02/16/2010 10 07/05/2010 9 05/08/2011 13 08/08/2013 9 * Vascular hx (11/12/13): no hx [place], stroke, Component Latest Ref Rng 02/18/2013 08/12/2013 10/13/2013 Triglyceride 30 - 149 mg/dL 114 123 126 Cholesterol 100 - 199 mg/dL 196 192 187 HDL Cholesterol >55 mg/dL 47 (L) 58 52 (L) VLDL Cholesterol 6 - 40 mg/dL 23 25 25 LDL Cholesterol 60 - 129 mg/dL 126 109 110 Fasting Time FASTING FASTING fasting TC:HDL Ratio 1.00 - 5.00 4.17 3.31 3.60 LDL:HDL Ratio 0.50 - 3.55 2.68 1.88 2.12 Non HDL Cholesterol 90 - 159 mg/dL 149 134 135 * Sleep (11/12/13): has obstructive sleep apnea, uses BiPAP since titration 04/07/13 * Exercise (11/12/13): not exercisnig * Medications (11/12/13): Victoza 1.8 mg daily, metformin 500 mg 2-1-1, * Physician (11/12/13): primary physician is Hayley Malone Morbid obesity 03/02/2003 07/15/2014 HYPERLIPIDEMIA NEC/NOS 5 documented as of this encounter (statuses as of 11/09/2022) [facility] History of Past illness Narrative* Problem Noted Date Resolved Date Postoperative abdominal pain 07/12/202011/2020 Mild protein-calorie malnutrition 06/28/2020 06/29/2020 Infected prosthetic mesh of abdominal wall 06/2006/30/2020 Obesity, Class II, BMI 35-39.9 06/13/2019 1 10/17/2019 SBO (small bowel obstruction) 06/07/2019 Morbid obesity 03/10/2019 06/13/2019 Abnormal cardiovascular stress test 09/11/2017 10/15/2017 Primary osteoarthritis of right hip 11/27/2016 08/18/2020 Trochanteric bursitis of right hip 11/27/2016 08/18/2020 Dyspnea, unspecified 03/08/2016 08/16/2020 Angiomyolipoma of right kidney 01/11/2016 1 Essential hypertension with goal blood pressure less than 140/90 12/13/2015 04/12/2017 Obstructive sleep apnea syndrome 12/13/2015 04/12/2017 Superficial skin infection 08/31/201503/13 CKD stage 3 due to type 2 diabetes mellitus 01/1011/16/2018 Overview: Dr. Lilian Vance, nephrology BMI 45.0-49.9, adult 02/06/2015 12/01/2019 Venous insufficiency 02/06/2015 04/12/2017 DM type 2 causing CKD stage 3 09/21/2014 Overview: Dr Landen Best, endocrinology Degenerative arthritis of hip 07/01/2014 BMI 45.0-49.9, adult 03/31/2014 10/13/2014 Diabetes mellitus type II, uncontrolled 11/26/19 14 02/06/2015 BMI 40.0-44.9, adult 10/14/2013 03/31/2014 Chest pain 09/13/2012 03/13/2016 Overview: Substernal pressure lasting ~5hrs, partially relieved with SLN. Significant risk factors for CAD (HTN, HLD, DM). EKG does to show ST changes. Initial CE at [facility] are supposedly negative. Prior stress test in 2010 was normal. DM well controlled. Currently low likelihood for ACS. - EKG - trend Donald - stress test vs [facility] S/P total knee replacement using cement 07/02/20 12 07/15/2018 Degenerative arthritis of right knee 06/10/2012 08/12/2014 Allergic contact dermatitis due to metals 201108/16/2020 Sensorineural hearing loss, bilateral 07/19/2011 08/16/2020 Diverticulosis 08/23/2010 03/13/2016 Thyroid CA 02/21/2010 08/12/2014 Overview: * Surgery (12/15/09): total thyroidectomy, Dr. Jamey Ibrahim, [facility] * Path (10/29/09): FNA Atypical cells present in a background of cyst contents, suspicious for papillary thyroid carcinoma (12/15/09): single well-circumscribed nodule in the right inferior lobe, which measured 3.5 cm in greatest dimension. The nodule was extensively hemorrhagic and cystic with a rim of viable material which ranges in appearance from papillary architecture to follicular structures. There is no evidence of a higher grade component. There is no definitive lymphovascular space invasion identified. In some areas, the tumor cells have oncocytic cytoplasm, however, the cells do not meet criteria for tall-cell variant of papillary thyroid carcinoma. * SIDDIQI (02/17/10): Rx 131-Iodine 102.4 mCi, Thyrogen-stim * Scan (02/24/10): post-treatment scan (Thyrogen-stim) shows uptake in left neck, also in liver area. SPECT images show one focus of uptake in lateral segment of the left lobe of the liver, one in the medial segment of the left lobe of liver, and one in the posterior segment of the right lobe of the liver. (05/03/11): Thyrogen stim 123-Iodine scan negative * Thyroglobulin Component Thyroglobulin TG Antibody Screen Stimulation Latest Ref Rng 0.8 - 49.0 ng/mL <14.4 IU/mL 11/05/2009 75.7 (H) 1.0 01/18/2010 <0.2 (L) 1.1 02/16/2010 0.3 (L) 1.0 Thyrogen 07/05/2010 <0.2 (L) 1.3 12/27/2010 <0.2 (L) 1.3 05/08/2011 <0.2 (L) 1.1 Thyrogen 07/24/2011 <0.2 (L) 1.5 01/23/2012 <0.2 (L) 1.0 07/27/2012 <0.2 (L) <1.0 02/18/2013 <0.2 (L) <1.0 08/12/2013 <0.2 (L) <1.0 * mRNA (11/03/09): TSH-R mRNA=1.7 ng/ug (11/30/09): TSH-R mRNA=1.8 ng/ug (01/18/10): no TSH-R mRNA assay postop (07/05/10): TSH-R mRNA <1.0 ng/ug (12/27/10): TSH-R mRNA <1.0 ng/ug * Ultrasound (01/18/10): no suspicious adenopathy along great vessels or in lateral neck on either side. No masses in thyroid bed. (12/27/10): no suspicious adenopathy along great vessels or in lateral neck on either side. No masses in thyroid bed. (01/24/12): no suspicious adenopathy along great vessels or in lateral neck on either side. No masses in thyroid bed. (08/11/13): no suspicious adenopathy along great vessels or in lateral neck on either side. No masses in thyroid bed. Thyroid nodule 10/20/2009 03/02/2010 Incisional hernia without mention of obstruction or gangrene 09/12/2005 08/12/2014 Symptomatic menopausal or female climacteric sta aniceto 04/07/2003 10/15/2017 Diabetes mellitus type 2 03/02/2003 014 Overview: *Type (): dx type 2 diabetes *Control hx Component Hemoglobin A1C Latest Ref Rng 4.0 - 6.0 % 01/17/2011 6.8 05/08/2011 7.2 07/24/2011 6.8 01/23/2012 6.7 07/27/2012 6.1 (H) 02/18/2013 6.4 (H) 08/08/2013 7.0 (H) 10/13/2013 7.1 (H) 02/17/14 7.3 * Eye hx (10/2008): no DM changes per Dr. Campoverde (07/2013): no DM changes per pt, exam Dr. Campoverde * Renal hx Component Albumin/Creat Ratio Latest Ref Rng 0 - 30 mg/g 04/03/2005 8 05/03/2006 8 03/26/2008 13 01/22/2009 18 02/16/2010 10 07/05/2010 9 05/08/2011 13 08/08/2013 9 * Vascular hx (11/12/13): no hx [place], stroke, Component Latest Ref Rng 02/18/2013 08/12/2013 10/13/2013 Triglyceride 30 - 149 mg/dL 114 123 126 Cholesterol 100 - 199 mg/dL 196 192 187 HDL Cholesterol >55 mg/dL 47 (L) 58 52 (L) VLDL Cholesterol 6 - 40 mg/dL 23 25 25 LDL Cholesterol 60 - 129 mg/dL 126 109 110 Fasting Time FASTING FASTING fasting TC:HDL Ratio 1.00 - 5.00 4.17 3.31 3.60 LDL:HDL Ratio 0.50 - 3.55 2.68 1.88 2.12 Non HDL Cholesterol 90 - 159 mg/dL 149 134 135 * Sleep (11/12/13): has obstructive sleep apnea, uses BiPAP since titration 04/07/13 * Exercise (11/12/13): not exercisnig * Medications (11/12/13): Victoza 1.8 mg daily, metformin 500 mg 2-1-1, * Physician (11/12/13): primary physician is Hayley Malone Morbid obesity 03/02/2003 07/15/2014 HYPERLIPIDEMIA NEC/NOS 5 documented as of this encounter (statuses as of 11/19/2022) [facility]2020 History of Past illness Narrative* Problem Noted Date Resolved Date Postoperative abdominal pain 07/12/202011/2020 Mild protein-calorie malnutrition 06/28/2020 06/29/2020 Infected prosthetic mesh of abdominal wall 06/2006/30/2020 Obesity, Class II, BMI 35-39.9 06/13/2019 1 10/17/2019 SBO (small bowel obstruction) 06/07/2019 Morbid obesity 03/10/2019 06/13/2019 Abnormal cardiovascular stress test 09/11/2017 10/15/2017 Primary osteoarthritis of right hip 11/27/2016 08/18/2020 Trochanteric bursitis of right hip 11/27/2016 08/18/2020 Dyspnea, unspecified 03/08/2016 08/16/2020 Angiomyolipoma of right kidney 01/11/2016 1 Essential hypertension with goal blood pressure less than 140/90 12/13/2015 04/12/2017 Obstructive sleep apnea syndrome 12/13/2015 04/12/2017 Superficial skin infection 08/31/201503/13 CKD stage 3 due to type 2 diabetes mellitus 01/1011/16/2018 Overview: Dr. Lilian Vance, nephrology BMI 45.0-49.9, adult 02/06/2015 12/01/2019 Venous insufficiency 02/06/2015 04/12/2017 DM type 2 causing CKD stage 3 09/21/2014 Overview: Dr Landen Best, endocrinology Degenerative arthritis of hip 07/01/2014 BMI 45.0-49.9, adult 03/31/2014 10/13/2014 Diabetes mellitus type II, uncontrolled 11/26/19 14 02/06/2015 BMI 40.0-44.9, adult 10/14/2013 03/31/2014 Chest pain 09/13/2012 03/13/2016 Overview: Substernal pressure lasting ~5hrs, partially relieved with SLN. Significant risk factors for CAD (HTN, HLD, DM). EKG does to show ST changes. Initial CE at [facility] are supposedly negative. Prior stress test in 2010 was normal. DM well controlled. Currently low likelihood for ACS. - EKG - trend Donald - stress test vs [facility] S/P total knee replacement using cement 07/02/20 12 07/15/2018 Degenerative arthritis of right knee 06/10/2012 08/12/2014 Allergic contact dermatitis due to metals 201108/16/2020 Sensorineural hearing loss, bilateral 07/19/2011 08/16/2020 Diverticulosis 08/23/2010 03/13/2016 Thyroid CA 02/21/2010 08/12/2014 Overview: * Surgery (12/15/09): total thyroidectomy, Dr. Jamey Ibrahim, [facility] * Path (10/29/09): FNA Atypical cells present in a background of cyst contents, suspicious for papillary thyroid carcinoma (12/15/09): single well-circumscribed nodule in the right inferior lobe, which measured 3.5 cm in greatest dimension. The nodule was extensively hemorrhagic and cystic with a rim of viable material which ranges in appearance from papillary architecture to follicular structures. There is no evidence of a higher grade component. There is no definitive lymphovascular space invasion identified. In some areas, the tumor cells have oncocytic cytoplasm, however, the cells do not meet criteria for tall-cell variant of papillary thyroid carcinoma. * SIDDIQI (02/17/10): Rx 131-Iodine 102.4 mCi, Thyrogen-stim * Scan (02/24/10): post-treatment scan (Thyrogen-stim) shows uptake in left neck, also in liver area. SPECT images show one focus of uptake in lateral segment of the left lobe of the liver, one in the medial segment of the left lobe of liver, and one in the posterior segment of the right lobe of the liver. (05/03/11): Thyrogen stim 123-Iodine scan negative * Thyroglobulin Component Thyroglobulin TG Antibody Screen Stimulation Latest Ref Rng 0.8 - 49.0 ng/mL <14.4 IU/mL 11/05/2009 75.7 (H) 1.0 01/18/2010 <0.2 (L) 1.1 02/16/2010 0.3 (L) 1.0 Thyrogen 07/05/2010 <0.2 (L) 1.3 12/27/2010 <0.2 (L) 1.3 05/08/2011 <0.2 (L) 1.1 Thyrogen 07/24/2011 <0.2 (L) 1.5 01/23/2012 <0.2 (L) 1.0 07/27/2012 <0.2 (L) <1.0 02/18/2013 <0.2 (L) <1.0 08/12/2013 <0.2 (L) <1.0 * mRNA (11/03/09): TSH-R mRNA=1.7 ng/ug (11/30/09): TSH-R mRNA=1.8 ng/ug (01/18/10): no TSH-R mRNA assay postop (07/05/10): TSH-R mRNA <1.0 ng/ug (12/27/10): TSH-R mRNA <1.0 ng/ug * Ultrasound (01/18/10): no suspicious adenopathy along great vessels or in lateral neck on either side. No masses in thyroid bed. (12/27/10): no suspicious adenopathy along great vessels or in lateral neck on either side. No masses in thyroid bed. (01/24/12): no suspicious adenopathy along great vessels or in lateral neck on either side. No masses in thyroid bed. (08/11/13): no suspicious adenopathy along great vessels or in lateral neck on either side. No masses in thyroid bed. Thyroid nodule 10/20/2009 03/02/2010 Incisional hernia without mention of obstruction or gangrene 09/12/2005 08/12/2014 Symptomatic menopausal or female climacteric sta aniceto 04/07/2003 10/15/2017 Diabetes mellitus type 2 03/02/2003 014 Overview: *Type (): dx type 2 diabetes *Control hx Component Hemoglobin A1C Latest Ref Rng 4.0 - 6.0 % 01/17/2011 6.8 05/08/2011 7.2 07/24/2011 6.8 01/23/2012 6.7 07/27/2012 6.1 (H) 02/18/2013 6.4 (H) 08/08/2013 7.0 (H) 10/13/2013 7.1 (H) 02/17/14 7.3 * Eye hx (10/2008): no DM changes per Dr. Campoverde (07/2013): no DM changes per pt, exam Dr. Campoverde * Renal hx Component Albumin/Creat Ratio Latest Ref Rng 0 - 30 mg/g 04/03/2005 8 05/03/2006 8 03/26/2008 13 01/22/2009 18 02/16/2010 10 07/05/2010 9 05/08/2011 13 08/08/2013 9 * Vascular hx (11/12/13): no hx [place], stroke, Component Latest Ref Rng 02/18/2013 08/12/2013 10/13/2013 Triglyceride 30 - 149 mg/dL 114 123 126 Cholesterol 100 - 199 mg/dL 196 192 187 HDL Cholesterol >55 mg/dL 47 (L) 58 52 (L) VLDL Cholesterol 6 - 40 mg/dL 23 25 25 LDL Cholesterol 60 - 129 mg/dL 126 109 110 Fasting Time FASTING FASTING fasting TC:HDL Ratio 1.00 - 5.00 4.17 3.31 3.60 LDL:HDL Ratio 0.50 - 3.55 2.68 1.88 2.12 Non HDL Cholesterol 90 - 159 mg/dL 149 134 135 * Sleep (11/12/13): has obstructive sleep apnea, uses BiPAP since titration 04/07/13 * Exercise (11/12/13): not exercisnig * Medications (11/12/13): Victoza 1.8 mg daily, metformin 500 mg 2-1-1, * Physician (11/12/13): primary physician is Hayley Malone Morbid obesity 03/02/2003 07/15/2014 HYPERLIPIDEMIA NEC/NOS 5 documented as of this encounter (statuses as of 11/21/2022) [facility] History of Past illness Narrative* Problem Noted Date Resolved Date Postoperative abdominal pain 07/12/202011/2020 Mild protein-calorie malnutrition 06/28/2020 06/29/2020 Infected prosthetic mesh of abdominal wall 06/2006/30/2020 Obesity, Class II, BMI 35-39.9 06/13/2019 1 10/17/2019 SBO (small bowel obstruction) 06/07/2019 Morbid obesity 03/10/2019 06/13/2019 Abnormal cardiovascular stress test 09/11/2017 10/15/2017 Primary osteoarthritis of right hip 11/27/2016 08/18/2020 Trochanteric bursitis of right hip 11/27/2016 08/18/2020 Dyspnea, unspecified 03/08/2016 08/16/2020 Angiomyolipoma of right kidney 01/11/2016 1 Essential hypertension with goal blood pressure less than 140/90 12/13/2015 04/12/2017 Obstructive sleep apnea syndrome 12/13/2015 04/12/2017 Superficial skin infection 08/31/201503/13 CKD stage 3 due to type 2 diabetes mellitus 01/1011/16/2018 Overview: Dr. Lilian Vance, nephrology BMI 45.0-49.9, adult 02/06/2015 12/01/2019 Venous insufficiency 02/06/2015 04/12/2017 DM type 2 causing CKD stage 3 09/21/2014 Overview: Dr Landen Best, endocrinology Degenerative arthritis of hip 07/01/2014 BMI 45.0-49.9, adult 03/31/2014 10/13/2014 Diabetes mellitus type II, uncontrolled 11/26/19 14 02/06/2015 BMI 40.0-44.9, adult 10/14/2013 03/31/2014 Chest pain 09/13/2012 03/13/2016 Overview: Substernal pressure lasting ~5hrs, partially relieved with SLN. Significant risk factors for CAD (HTN, HLD, DM). EKG does to show ST changes. Initial CE at [facility] are supposedly negative. Prior stress test in 2010 was normal. DM well controlled. Currently low likelihood for ACS. - EKG - trend Donald - stress test vs [facility] S/P total knee replacement using cement 07/02/20 12 07/15/2018 Degenerative arthritis of right knee 06/10/2012 08/12/2014 Allergic contact dermatitis due to metals 201108/16/2020 Sensorineural hearing loss, bilateral 07/19/2011 08/16/2020 Diverticulosis 08/23/2010 03/13/2016 Thyroid CA 02/21/2010 08/12/2014 Overview: * Surgery (12/15/09): total thyroidectomy, Dr. Jamey Ibrahim, [facility] * Path (10/29/09): FNA Atypical cells present in a background of cyst contents, suspicious for papillary thyroid carcinoma (12/15/09): single well-circumscribed nodule in the right inferior lobe, which measured 3.5 cm in greatest dimension. The nodule was extensively hemorrhagic and cystic with a rim of viable material which ranges in appearance from papillary architecture to follicular structures. There is no evidence of a higher grade component. There is no definitive lymphovascular space invasion identified. In some areas, the tumor cells have oncocytic cytoplasm, however, the cells do not meet criteria for tall-cell variant of papillary thyroid carcinoma. * SIDDIQI (02/17/10): Rx 131-Iodine 102.4 mCi, Thyrogen-stim * Scan (02/24/10): post-treatment scan (Thyrogen-stim) shows uptake in left neck, also in liver area. SPECT images show one focus of uptake in lateral segment of the left lobe of the liver, one in the medial segment of the left lobe of liver, and one in the posterior segment of the right lobe of the liver. (05/03/11): Thyrogen stim 123-Iodine scan negative * Thyroglobulin Component Thyroglobulin TG Antibody Screen Stimulation Latest Ref Rng 0.8 - 49.0 ng/mL <14.4 IU/mL 11/05/2009 75.7 (H) 1.0 01/18/2010 <0.2 (L) 1.1 02/16/2010 0.3 (L) 1.0 Thyrogen 07/05/2010 <0.2 (L) 1.3 12/27/2010 <0.2 (L) 1.3 05/08/2011 <0.2 (L) 1.1 Thyrogen 07/24/2011 <0.2 (L) 1.5 01/23/2012 <0.2 (L) 1.0 07/27/2012 <0.2 (L) <1.0 02/18/2013 <0.2 (L) <1.0 08/12/2013 <0.2 (L) <1.0 * mRNA (11/03/09): TSH-R mRNA=1.7 ng/ug (11/30/09): TSH-R mRNA=1.8 ng/ug (01/18/10): no TSH-R mRNA assay postop (07/05/10): TSH-R mRNA <1.0 ng/ug (12/27/10): TSH-R mRNA <1.0 ng/ug * Ultrasound (01/18/10): no suspicious adenopathy along great vessels or in lateral neck on either side. No masses in thyroid bed. (12/27/10): no suspicious adenopathy along great vessels or in lateral neck on either side. No masses in thyroid bed. (01/24/12): no suspicious adenopathy along great vessels or in lateral neck on either side. No masses in thyroid bed. (08/11/13): no suspicious adenopathy along great vessels or in lateral neck on either side. No masses in thyroid bed. Thyroid nodule 10/20/2009 03/02/2010 Incisional hernia without mention of obstruction or gangrene 09/12/2005 08/12/2014 Symptomatic menopausal or female climacteric sta aniceto 04/07/2003 10/15/2017 Diabetes mellitus type 2 03/02/2003 014 Overview: *Type (): dx type 2 diabetes *Control hx Component Hemoglobin A1C Latest Ref Rng 4.0 - 6.0 % 01/17/2011 6.8 05/08/2011 7.2 07/24/2011 6.8 01/23/2012 6.7 07/27/2012 6.1 (H) 02/18/2013 6.4 (H) 08/08/2013 7.0 (H) 10/13/2013 7.1 (H) 02/17/14 7.3 * Eye hx (10/2008): no DM changes per Dr. Campoverde (07/2013): no DM changes per pt, exam Dr. Campoverde * Renal hx Component Albumin/Creat Ratio Latest Ref Rng 0 - 30 mg/g 04/03/2005 8 05/03/2006 8 03/26/2008 13 01/22/2009 18 02/16/2010 10 07/05/2010 9 05/08/2011 13 08/08/2013 9 * Vascular hx (11/12/13): no hx [place], stroke, Component Latest Ref Rng 02/18/2013 08/12/2013 10/13/2013 Triglyceride 30 - 149 mg/dL 114 123 126 Cholesterol 100 - 199 mg/dL 196 192 187 HDL Cholesterol >55 mg/dL 47 (L) 58 52 (L) VLDL Cholesterol 6 - 40 mg/dL 23 25 25 LDL Cholesterol 60 - 129 mg/dL 126 109 110 Fasting Time FASTING FASTING fasting TC:HDL Ratio 1.00 - 5.00 4.17 3.31 3.60 LDL:HDL Ratio 0.50 - 3.55 2.68 1.88 2.12 Non HDL Cholesterol 90 - 159 mg/dL 149 134 135 * Sleep (11/12/13): has obstructive sleep apnea, uses BiPAP since titration 04/07/13 * Exercise (11/12/13): not exercisnig * Medications (11/12/13): Victoza 1.8 mg daily, metformin 500 mg 2-1-1, * Physician (11/12/13): primary physician is Hayley Malone Morbid obesity 03/02/2003 07/15/2014 HYPERLIPIDEMIA NEC/NOS 5 documented as of this encounter (statuses as of 11/23/2022) [facility] History of Past illness Narrative* Problem Noted Date Resolved Date Postoperative abdominal pain 07/12/202011/2020 Mild protein-calorie malnutrition 06/28/2020 06/29/2020 Infected prosthetic mesh of abdominal wall 06/2006/30/2020 Obesity, Class II, BMI 35-39.9 06/13/2019 1 10/17/2019 SBO (small bowel obstruction) 06/07/2019 Morbid obesity 03/10/2019 06/13/2019 Abnormal cardiovascular stress test 09/11/2017 10/15/2017 Primary osteoarthritis of right hip 11/27/2016 08/18/2020 Trochanteric bursitis of right hip 11/27/2016 08/18/2020 Dyspnea, unspecified 03/08/2016 08/16/2020 Angiomyolipoma of right kidney 01/11/2016 1 Essential hypertension with goal blood pressure less than 140/90 12/13/2015 04/12/2017 Obstructive sleep apnea syndrome 12/13/2015 04/12/2017 Superficial skin infection 08/31/201503/13 CKD stage 3 due to type 2 diabetes mellitus 01/1011/16/2018 Overview: Dr. Lilian Vance, nephrology BMI 45.0-49.9, adult 02/06/2015 12/01/2019 Venous insufficiency 02/06/2015 04/12/2017 DM type 2 causing CKD stage 3 09/21/2014 Overview: Dr Landen Best, endocrinology Degenerative arthritis of hip 07/01/2014 BMI 45.0-49.9, adult 03/31/2014 10/13/2014 Diabetes mellitus type II, uncontrolled 11/26/19 14 02/06/2015 BMI 40.0-44.9, adult 10/14/2013 03/31/2014 Chest pain 09/13/2012 03/13/2016 Overview: Substernal pressure lasting ~5hrs, partially relieved with SLN. Significant risk factors for CAD (HTN, HLD, DM). EKG does to show ST changes. Initial CE at [facility] are supposedly negative. Prior stress test in 2010 was normal. DM well controlled. Currently low likelihood for ACS. - EKG - trend Donald - stress test vs [facility] S/P total knee replacement using cement 07/02/20 12 07/15/2018 Degenerative arthritis of right knee 06/10/2012 08/12/2014 Allergic contact dermatitis due to metals 201108/16/2020 Sensorineural hearing loss, bilateral 07/19/2011 08/16/2020 Diverticulosis 08/23/2010 03/13/2016 Thyroid CA 02/21/2010 08/12/2014 Overview: * Surgery (12/15/09): total thyroidectomy, Dr. Jamey Ibrahim, [facility] * Path (10/29/09): FNA Atypical cells present in a background of cyst contents, suspicious for papillary thyroid carcinoma (12/15/09): single well-circumscribed nodule in the right inferior lobe, which measured 3.5 cm in greatest dimension. The nodule was extensively hemorrhagic and cystic with a rim of viable material which ranges in appearance from papillary architecture to follicular structures. There is no evidence of a higher grade component. There is no definitive lymphovascular space invasion identified. In some areas, the tumor cells have oncocytic cytoplasm, however, the cells do not meet criteria for tall-cell variant of papillary thyroid carcinoma. * SIDDIQI (02/17/10): Rx 131-Iodine 102.4 mCi, Thyrogen-stim * Scan (02/24/10): post-treatment scan (Thyrogen-stim) shows uptake in left neck, also in liver area. SPECT images show one focus of uptake in lateral segment of the left lobe of the liver, one in the medial segment of the left lobe of liver, and one in the posterior segment of the right lobe of the liver. (05/03/11): Thyrogen stim 123-Iodine scan negative * Thyroglobulin Component Thyroglobulin TG Antibody Screen Stimulation Latest Ref Rng 0.8 - 49.0 ng/mL <14.4 IU/mL 11/05/2009 75.7 (H) 1.0 01/18/2010 <0.2 (L) 1.1 02/16/2010 0.3 (L) 1.0 Thyrogen 07/05/2010 <0.2 (L) 1.3 12/27/2010 <0.2 (L) 1.3 05/08/2011 <0.2 (L) 1.1 Thyrogen 07/24/2011 <0.2 (L) 1.5 01/23/2012 <0.2 (L) 1.0 07/27/2012 <0.2 (L) <1.0 02/18/2013 <0.2 (L) <1.0 08/12/2013 <0.2 (L) <1.0 * mRNA (11/03/09): TSH-R mRNA=1.7 ng/ug (11/30/09): TSH-R mRNA=1.8 ng/ug (01/18/10): no TSH-R mRNA assay postop (07/05/10): TSH-R mRNA <1.0 ng/ug (12/27/10): TSH-R mRNA <1.0 ng/ug * Ultrasound (01/18/10): no suspicious adenopathy along great vessels or in lateral neck on either side. No masses in thyroid bed. (12/27/10): no suspicious adenopathy along great vessels or in lateral neck on either side. No masses in thyroid bed. (01/24/12): no suspicious adenopathy along great vessels or in lateral neck on either side. No masses in thyroid bed. (08/11/13): no suspicious adenopathy along great vessels or in lateral neck on either side. No masses in thyroid bed. Thyroid nodule 10/20/2009 03/02/2010 Incisional hernia without mention of obstruction or gangrene 09/12/2005 08/12/2014 Symptomatic menopausal or female climacteric sta aniceto 04/07/2003 10/15/2017 Diabetes mellitus type 2 03/02/2003 014 Overview: *Type (): dx type 2 diabetes *Control hx Component Hemoglobin A1C Latest Ref Rng 4.0 - 6.0 % 01/17/2011 6.8 05/08/2011 7.2 07/24/2011 6.8 01/23/2012 6.7 07/27/2012 6.1 (H) 02/18/2013 6.4 (H) 08/08/2013 7.0 (H) 10/13/2013 7.1 (H) 02/17/14 7.3 * Eye hx (10/2008): no DM changes per Dr. Campoverde (07/2013): no DM changes per pt, exam Dr. Campoverde * Renal hx Component Albumin/Creat Ratio Latest Ref Rng 0 - 30 mg/g 04/03/2005 8 05/03/2006 8 03/26/2008 13 01/22/2009 18 02/16/2010 10 07/05/2010 9 05/08/2011 13 08/08/2013 9 * Vascular hx (11/12/13): no hx [place], stroke, Component Latest Ref Rng 02/18/2013 08/12/2013 10/13/2013 Triglyceride 30 - 149 mg/dL 114 123 126 Cholesterol 100 - 199 mg/dL 196 192 187 HDL Cholesterol >55 mg/dL 47 (L) 58 52 (L) VLDL Cholesterol 6 - 40 mg/dL 23 25 25 LDL Cholesterol 60 - 129 mg/dL 126 109 110 Fasting Time FASTING FASTING fasting TC:HDL Ratio 1.00 - 5.00 4.17 3.31 3.60 LDL:HDL Ratio 0.50 - 3.55 2.68 1.88 2.12 Non HDL Cholesterol 90 - 159 mg/dL 149 134 135 * Sleep (11/12/13): has obstructive sleep apnea, uses BiPAP since titration 04/07/13 * Exercise (11/12/13): not exercisnig * Medications (11/12/13): Victoza 1.8 mg daily, metformin 500 mg 2-1-1, * Physician (11/12/13): primary physician is Hayley Malone Morbid obesity 03/02/2003 07/15/2014 HYPERLIPIDEMIA NEC/NOS 5 documented as of this encounter (statuses as of 12/02/2022) [facility]2020 History of Past illness Narrative* Problem Noted Date Resolved Date Postoperative abdominal pain 07/12/202011/2020 Mild protein-calorie malnutrition 06/28/2020 06/29/2020 Infected prosthetic mesh of abdominal wall 06/2006/30/2020 Obesity, Class II, BMI 35-39.9 06/13/2019 1 10/17/2019 SBO (small bowel obstruction) 06/07/2019 Morbid obesity 03/10/2019 06/13/2019 Abnormal cardiovascular stress test 09/11/2017 10/15/2017 Primary osteoarthritis of right hip 11/27/2016 08/18/2020 Trochanteric bursitis of right hip 11/27/2016 08/18/2020 Dyspnea, unspecified 03/08/2016 08/16/2020 Angiomyolipoma of right kidney 01/11/2016 1 Essential hypertension with goal blood pressure less than 140/90 12/13/2015 04/12/2017 Obstructive sleep apnea syndrome 12/13/2015 04/12/2017 Superficial skin infection 08/31/201503/13 CKD stage 3 due to type 2 diabetes mellitus 01/1011/16/2018 Overview: Dr. Lilian Vance, nephrology BMI 45.0-49.9, adult 02/06/2015 12/01/2019 Venous insufficiency 02/06/2015 04/12/2017 DM type 2 causing CKD stage 3 09/21/2014 Overview: Dr Landen Best, endocrinology Degenerative arthritis of hip 07/01/2014 BMI 45.0-49.9, adult 03/31/2014 10/13/2014 Diabetes mellitus type II, uncontrolled 11/26/19 14 02/06/2015 BMI 40.0-44.9, adult 10/14/2013 03/31/2014 Chest pain 09/13/2012 03/13/2016 Overview: Substernal pressure lasting ~5hrs, partially relieved with SLN. Significant risk factors for CAD (HTN, HLD, DM). EKG does to show ST changes. Initial CE at [facility] are supposedly negative. Prior stress test in 2010 was normal. DM well controlled. Currently low likelihood for ACS. - EKG - trend Donald - stress test vs [facility] S/P total knee replacement using cement 07/02/20 12 07/15/2018 Degenerative arthritis of right knee 06/10/2012 08/12/2014 Allergic contact dermatitis due to metals 201108/16/2020 Sensorineural hearing loss, bilateral 07/19/2011 08/16/2020 Diverticulosis 08/23/2010 03/13/2016 Thyroid CA 02/21/2010 08/12/2014 Overview: * Surgery (12/15/09): total thyroidectomy, Dr. Jamey Ibrahim, [facility] * Path (10/29/09): FNA Atypical cells present in a background of cyst contents, suspicious for papillary thyroid carcinoma (12/15/09): single well-circumscribed nodule in the right inferior lobe, which measured 3.5 cm in greatest dimension. The nodule was extensively hemorrhagic and cystic with a rim of viable material which ranges in appearance from papillary architecture to follicular structures. There is no evidence of a higher grade component. There is no definitive lymphovascular space invasion identified. In some areas, the tumor cells have oncocytic cytoplasm, however, the cells do not meet criteria for tall-cell variant of papillary thyroid carcinoma. * SIDDIQI (02/17/10): Rx 131-Iodine 102.4 mCi, Thyrogen-stim * Scan (02/24/10): post-treatment scan (Thyrogen-stim) shows uptake in left neck, also in liver area. SPECT images show one focus of uptake in lateral segment of the left lobe of the liver, one in the medial segment of the left lobe of liver, and one in the posterior segment of the right lobe of the liver. (05/03/11): Thyrogen stim 123-Iodine scan negative * Thyroglobulin Component Thyroglobulin TG Antibody Screen Stimulation Latest Ref Rng 0.8 - 49.0 ng/mL <14.4 IU/mL 11/05/2009 75.7 (H) 1.0 01/18/2010 <0.2 (L) 1.1 02/16/2010 0.3 (L) 1.0 Thyrogen 07/05/2010 <0.2 (L) 1.3 12/27/2010 <0.2 (L) 1.3 05/08/2011 <0.2 (L) 1.1 Thyrogen 07/24/2011 <0.2 (L) 1.5 01/23/2012 <0.2 (L) 1.0 07/27/2012 <0.2 (L) <1.0 02/18/2013 <0.2 (L) <1.0 08/12/2013 <0.2 (L) <1.0 * mRNA (11/03/09): TSH-R mRNA=1.7 ng/ug (11/30/09): TSH-R mRNA=1.8 ng/ug (01/18/10): no TSH-R mRNA assay postop (07/05/10): TSH-R mRNA <1.0 ng/ug (12/27/10): TSH-R mRNA <1.0 ng/ug * Ultrasound (01/18/10): no suspicious adenopathy along great vessels or in lateral neck on either side. No masses in thyroid bed. (12/27/10): no suspicious adenopathy along great vessels or in lateral neck on either side. No masses in thyroid bed. (01/24/12): no suspicious adenopathy along great vessels or in lateral neck on either side. No masses in thyroid bed. (08/11/13): no suspicious adenopathy along great vessels or in lateral neck on either side. No masses in thyroid bed. Thyroid nodule 10/20/2009 03/02/2010 Incisional hernia without mention of obstruction or gangrene 09/12/2005 08/12/2014 Symptomatic menopausal or female climacteric sta aniceto 04/07/2003 10/15/2017 Diabetes mellitus type 2 03/02/2003 014 Overview: *Type (): dx type 2 diabetes *Control hx Component Hemoglobin A1C Latest Ref Rng 4.0 - 6.0 % 01/17/2011 6.8 05/08/2011 7.2 07/24/2011 6.8 01/23/2012 6.7 07/27/2012 6.1 (H) 02/18/2013 6.4 (H) 08/08/2013 7.0 (H) 10/13/2013 7.1 (H) 02/17/14 7.3 * Eye hx (10/2008): no DM changes per Dr. Campoverde (07/2013): no DM changes per pt, exam Dr. Campoverde * Renal hx Component Albumin/Creat Ratio Latest Ref Rng 0 - 30 mg/g 04/03/2005 8 05/03/2006 8 03/26/2008 13 01/22/2009 18 02/16/2010 10 07/05/2010 9 05/08/2011 13 08/08/2013 9 * Vascular hx (11/12/13): no hx [place], stroke, Component Latest Ref Rng 02/18/2013 08/12/2013 10/13/2013 Triglyceride 30 - 149 mg/dL 114 123 126 Cholesterol 100 - 199 mg/dL 196 192 187 HDL Cholesterol >55 mg/dL 47 (L) 58 52 (L) VLDL Cholesterol 6 - 40 mg/dL 23 25 25 LDL Cholesterol 60 - 129 mg/dL 126 109 110 Fasting Time FASTING FASTING fasting TC:HDL Ratio 1.00 - 5.00 4.17 3.31 3.60 LDL:HDL Ratio 0.50 - 3.55 2.68 1.88 2.12 Non HDL Cholesterol 90 - 159 mg/dL 149 134 135 * Sleep (11/12/13): has obstructive sleep apnea, uses BiPAP since titration 04/07/13 * Exercise (11/12/13): not exercisnig * Medications (11/12/13): Victoza 1.8 mg daily, metformin 500 mg 2-1-1, * Physician (11/12/13): primary physician is Hayley Malone Morbid obesity 03/02/2003 07/15/2014 HYPERLIPIDEMIA NEC/NOS 5 documented as of this encounter (statuses as of 12/05/2022) [facility]11-[facility]2020 History of Past illness Narrative* Problem Noted Date Resolved Date Postoperative abdominal pain 07/12/202011/2020 Mild protein-calorie malnutrition 06/28/2020 06/29/2020 Infected prosthetic mesh of abdominal wall 06/2006/30/2020 Obesity, Class II, BMI 35-39.9 06/13/2019 1 10/17/2019 SBO (small bowel obstruction) 06/07/2019 Morbid obesity 03/10/2019 06/13/2019 Abnormal cardiovascular stress test 09/11/2017 10/15/2017 Primary osteoarthritis of right hip 11/27/2016 08/18/2020 Trochanteric bursitis of right hip 11/27/2016 08/18/2020 Dyspnea, unspecified 03/08/2016 08/16/2020 Angiomyolipoma of right kidney 01/11/2016 1 Essential hypertension with goal blood pressure less than 140/90 12/13/2015 04/12/2017 Obstructive sleep apnea syndrome 12/13/2015 04/12/2017 Superficial skin infection 08/31/201503/13 CKD stage 3 due to type 2 diabetes mellitus 01/1011/16/2018 Overview: Dr. Lilian Vance, nephrology BMI 45.0-49.9, adult 02/06/2015 12/01/2019 Venous insufficiency 02/06/2015 04/12/2017 DM type 2 causing CKD stage 3 09/21/2014 Overview: Dr Landen Best, endocrinology Degenerative arthritis of hip 07/01/2014 BMI 45.0-49.9, adult 03/31/2014 10/13/2014 Diabetes mellitus type II, uncontrolled 11/26/19 14 02/06/2015 BMI 40.0-44.9, adult 10/14/2013 03/31/2014 Chest pain 09/13/2012 03/13/2016 Overview: Substernal pressure lasting ~5hrs, partially relieved with SLN. Significant risk factors for CAD (HTN, HLD, DM). EKG does to show ST changes. Initial CE at [facility] are supposedly negative. Prior stress test in 2010 was normal. DM well controlled. Currently low likelihood for ACS. - EKG - trend Donald - stress test vs [facility] S/P total knee replacement using cement 07/02/20 12 07/15/2018 Degenerative arthritis of right knee 06/10/2012 08/12/2014 Allergic contact dermatitis due to metals 201108/16/2020 Sensorineural hearing loss, bilateral 07/19/2011 08/16/2020 Diverticulosis 08/23/2010 03/13/2016 Thyroid CA 02/21/2010 08/12/2014 Overview: * Surgery (12/15/09): total thyroidectomy, Dr. Jamey Ibrahim, [facility] * Path (10/29/09): FNA Atypical cells present in a background of cyst contents, suspicious for papillary thyroid carcinoma (12/15/09): single well-circumscribed nodule in the right inferior lobe, which measured 3.5 cm in greatest dimension. The nodule was extensively hemorrhagic and cystic with a rim of viable material which ranges in appearance from papillary architecture to follicular structures. There is no evidence of a higher grade component. There is no definitive lymphovascular space invasion identified. In some areas, the tumor cells have oncocytic cytoplasm, however, the cells do not meet criteria for tall-cell variant of papillary thyroid carcinoma. * SIDDIQI (02/17/10): Rx 131-Iodine 102.4 mCi, Thyrogen-stim * Scan (02/24/10): post-treatment scan (Thyrogen-stim) shows uptake in left neck, also in liver area. SPECT images show one focus of uptake in lateral segment of the left lobe of the liver, one in the medial segment of the left lobe of liver, and one in the posterior segment of the right lobe of the liver. (05/03/11): Thyrogen stim 123-Iodine scan negative * Thyroglobulin Component Thyroglobulin TG Antibody Screen Stimulation Latest Ref Rng 0.8 - 49.0 ng/mL <14.4 IU/mL 11/05/2009 75.7 (H) 1.0 01/18/2010 <0.2 (L) 1.1 02/16/2010 0.3 (L) 1.0 Thyrogen 07/05/2010 <0.2 (L) 1.3 12/27/2010 <0.2 (L) 1.3 05/08/2011 <0.2 (L) 1.1 Thyrogen 07/24/2011 <0.2 (L) 1.5 01/23/2012 <0.2 (L) 1.0 07/27/2012 <0.2 (L) <1.0 02/18/2013 <0.2 (L) <1.0 08/12/2013 <0.2 (L) <1.0 * mRNA (11/03/09): TSH-R mRNA=1.7 ng/ug (11/30/09): TSH-R mRNA=1.8 ng/ug (01/18/10): no TSH-R mRNA assay postop (07/05/10): TSH-R mRNA <1.0 ng/ug (12/27/10): TSH-R mRNA <1.0 ng/ug * Ultrasound (01/18/10): no suspicious adenopathy along great vessels or in lateral neck on either side. No masses in thyroid bed. (12/27/10): no suspicious adenopathy along great vessels or in lateral neck on either side. No masses in thyroid bed. (01/24/12): no suspicious adenopathy along great vessels or in lateral neck on either side. No masses in thyroid bed. (08/11/13): no suspicious adenopathy along great vessels or in lateral neck on either side. No masses in thyroid bed. Thyroid nodule 10/20/2009 03/02/2010 Incisional hernia without mention of obstruction or gangrene 09/12/2005 08/12/2014 Symptomatic menopausal or female climacteric sta aniceto 04/07/2003 10/15/2017 Diabetes mellitus type 2 03/02/2003 014 Overview: *Type (): dx type 2 diabetes *Control hx Component Hemoglobin A1C Latest Ref Rng 4.0 - 6.0 % 01/17/2011 6.8 05/08/2011 7.2 07/24/2011 6.8 01/23/2012 6.7 07/27/2012 6.1 (H) 02/18/2013 6.4 (H) 08/08/2013 7.0 (H) 10/13/2013 7.1 (H) 02/17/14 7.3 * Eye hx (10/2008): no DM changes per Dr. Campoverde (07/2013): no DM changes per pt, exam Dr. Campoverde * Renal hx Component Albumin/Creat Ratio Latest Ref Rng 0 - 30 mg/g 04/03/2005 8 05/03/2006 8 03/26/2008 13 01/22/2009 18 02/16/2010 10 07/05/2010 9 05/08/2011 13 08/08/2013 9 * Vascular hx (11/12/13): no hx [place], stroke, Component Latest Ref Rng 02/18/2013 08/12/2013 10/13/2013 Triglyceride 30 - 149 mg/dL 114 123 126 Cholesterol 100 - 199 mg/dL 196 192 187 HDL Cholesterol >55 mg/dL 47 (L) 58 52 (L) VLDL Cholesterol 6 - 40 mg/dL 23 25 25 LDL Cholesterol 60 - 129 mg/dL 126 109 110 Fasting Time FASTING FASTING fasting TC:HDL Ratio 1.00 - 5.00 4.17 3.31 3.60 LDL:HDL Ratio 0.50 - 3.55 2.68 1.88 2.12 Non HDL Cholesterol 90 - 159 mg/dL 149 134 135 * Sleep (11/12/13): has obstructive sleep apnea, uses BiPAP since titration 04/07/13 * Exercise (11/12/13): not exercisnig * Medications (11/12/13): Victoza 1.8 mg daily, metformin 500 mg 2-1-1, * Physician (11/12/13): primary physician is Hayley Malone Morbid obesity 03/02/2003 07/15/2014 HYPERLIPIDEMIA NEC/NOS 5 documented as of this encounter (statuses as of 12/09/2022) [facility] History of Past illness Narrative* Problem Noted Date Resolved Date Postoperative abdominal pain 07/12/202011/2020 Mild protein-calorie malnutrition 06/28/2020 06/29/2020 Infected prosthetic mesh of abdominal wall 06/2006/30/2020 Obesity, Class II, BMI 35-39.9 06/13/2019 1 10/17/2019 SBO (small bowel obstruction) 06/07/2019 Morbid obesity 03/10/2019 06/13/2019 Abnormal cardiovascular stress test 09/11/2017 10/15/2017 Primary osteoarthritis of right hip 11/27/2016 08/18/2020 Trochanteric bursitis of right hip 11/27/2016 08/18/2020 Dyspnea, unspecified 03/08/2016 08/16/2020 Angiomyolipoma of right kidney 01/11/2016 1 Essential hypertension with goal blood pressure less than 140/90 12/13/2015 04/12/2017 Obstructive sleep apnea syndrome 12/13/2015 04/12/2017 Superficial skin infection 08/31/201503/13 CKD stage 3 due to type 2 diabetes mellitus 01/1011/16/2018 Overview: Dr. Lilian Vance, nephrology BMI 45.0-49.9, adult 02/06/2015 12/01/2019 Venous insufficiency 02/06/2015 04/12/2017 DM type 2 causing CKD stage 3 09/21/2014 Overview: Dr Landen Best, endocrinology Degenerative arthritis of hip 07/01/2014 BMI 45.0-49.9, adult 03/31/2014 10/13/2014 Diabetes mellitus type II, uncontrolled 11/26/19 14 02/06/2015 BMI 40.0-44.9, adult 10/14/2013 03/31/2014 Chest pain 09/13/2012 03/13/2016 Overview: Substernal pressure lasting ~5hrs, partially relieved with SLN. Significant risk factors for CAD (HTN, HLD, DM). EKG does to show ST changes. Initial CE at [facility] are supposedly negative. Prior stress test in 2010 was normal. DM well controlled. Currently low likelihood for ACS. - EKG - trend Donald - stress test vs [facility] S/P total knee replacement using cement 07/02/20 12 07/15/2018 Degenerative arthritis of right knee 06/10/2012 08/12/2014 Allergic contact dermatitis due to metals 201108/16/2020 Sensorineural hearing loss, bilateral 07/19/2011 08/16/2020 Diverticulosis 08/23/2010 03/13/2016 Thyroid CA 02/21/2010 08/12/2014 Overview: * Surgery (12/15/09): total thyroidectomy, Dr. Jamey Ibrahim, [facility] * Path (10/29/09): FNA Atypical cells present in a background of cyst contents, suspicious for papillary thyroid carcinoma (12/15/09): single well-circumscribed nodule in the right inferior lobe, which measured 3.5 cm in greatest dimension. The nodule was extensively hemorrhagic and cystic with a rim of viable material which ranges in appearance from papillary architecture to follicular structures. There is no evidence of a higher grade component. There is no definitive lymphovascular space invasion identified. In some areas, the tumor cells have oncocytic cytoplasm, however, the cells do not meet criteria for tall-cell variant of papillary thyroid carcinoma. * SIDDIQI (02/17/10): Rx 131-Iodine 102.4 mCi, Thyrogen-stim * Scan (02/24/10): post-treatment scan (Thyrogen-stim) shows uptake in left neck, also in liver area. SPECT images show one focus of uptake in lateral segment of the left lobe of the liver, one in the medial segment of the left lobe of liver, and one in the posterior segment of the right lobe of the liver. (05/03/11): Thyrogen stim 123-Iodine scan negative * Thyroglobulin Component Thyroglobulin TG Antibody Screen Stimulation Latest Ref Rng 0.8 - 49.0 ng/mL <14.4 IU/mL 11/05/2009 75.7 (H) 1.0 01/18/2010 <0.2 (L) 1.1 02/16/2010 0.3 (L) 1.0 Thyrogen 07/05/2010 <0.2 (L) 1.3 12/27/2010 <0.2 (L) 1.3 05/08/2011 <0.2 (L) 1.1 Thyrogen 07/24/2011 <0.2 (L) 1.5 01/23/2012 <0.2 (L) 1.0 07/27/2012 <0.2 (L) <1.0 02/18/2013 <0.2 (L) <1.0 08/12/2013 <0.2 (L) <1.0 * mRNA (11/03/09): TSH-R mRNA=1.7 ng/ug (11/30/09): TSH-R mRNA=1.8 ng/ug (01/18/10): no TSH-R mRNA assay postop (07/05/10): TSH-R mRNA <1.0 ng/ug (12/27/10): TSH-R mRNA <1.0 ng/ug * Ultrasound (01/18/10): no suspicious adenopathy along great vessels or in lateral neck on either side. No masses in thyroid bed. (12/27/10): no suspicious adenopathy along great vessels or in lateral neck on either side. No masses in thyroid bed. (01/24/12): no suspicious adenopathy along great vessels or in lateral neck on either side. No masses in thyroid bed. (08/11/13): no suspicious adenopathy along great vessels or in lateral neck on either side. No masses in thyroid bed. Thyroid nodule 10/20/2009 03/02/2010 Incisional hernia without mention of obstruction or gangrene 09/12/2005 08/12/2014 Symptomatic menopausal or female climacteric sta aniceto 04/07/2003 10/15/2017 Diabetes mellitus type 2 03/02/2003 014 Overview: *Type (): dx type 2 diabetes *Control hx Component Hemoglobin A1C Latest Ref Rng 4.0 - 6.0 % 01/17/2011 6.8 05/08/2011 7.2 07/24/2011 6.8 01/23/2012 6.7 07/27/2012 6.1 (H) 02/18/2013 6.4 (H) 08/08/2013 7.0 (H) 10/13/2013 7.1 (H) 02/17/14 7.3 * Eye hx (10/2008): no DM changes per Dr. Campoverde (07/2013): no DM changes per pt, exam Dr. Campoverde * Renal hx Component Albumin/Creat Ratio Latest Ref Rng 0 - 30 mg/g 04/03/2005 8 05/03/2006 8 03/26/2008 13 01/22/2009 18 02/16/2010 10 07/05/2010 9 05/08/2011 13 08/08/2013 9 * Vascular hx (11/12/13): no hx [place], stroke, Component Latest Ref Rng 02/18/2013 08/12/2013 10/13/2013 Triglyceride 30 - 149 mg/dL 114 123 126 Cholesterol 100 - 199 mg/dL 196 192 187 HDL Cholesterol >55 mg/dL 47 (L) 58 52 (L) VLDL Cholesterol 6 - 40 mg/dL 23 25 25 LDL Cholesterol 60 - 129 mg/dL 126 109 110 Fasting Time FASTING FASTING fasting TC:HDL Ratio 1.00 - 5.00 4.17 3.31 3.60 LDL:HDL Ratio 0.50 - 3.55 2.68 1.88 2.12 Non HDL Cholesterol 90 - 159 mg/dL 149 134 135 * Sleep (11/12/13): has obstructive sleep apnea, uses BiPAP since titration 04/07/13 * Exercise (11/12/13): not exercisnig * Medications (11/12/13): Victoza 1.8 mg daily, metformin 500 mg 2-1-1, * Physician (11/12/13): primary physician is Hayley Malone Morbid obesity 03/02/2003 07/15/2014 HYPERLIPIDEMIA NEC/NOS 5 documented as of this encounter (statuses as of 12/21/2022) [facility] History of Past illness Narrative* Problem Noted Date Resolved Date Postoperative abdominal pain 07/12/202011/2020 Mild protein-calorie malnutrition 06/28/2020 06/29/2020 Infected prosthetic mesh of abdominal wall 06/2006/30/2020 Obesity, Class II, BMI 35-39.9 06/13/2019 1 10/17/2019 SBO (small bowel obstruction) 06/07/2019 Morbid obesity 03/10/2019 06/13/2019 Abnormal cardiovascular stress test 09/11/2017 10/15/2017 Primary osteoarthritis of right hip 11/27/2016 08/18/2020 Trochanteric bursitis of right hip 11/27/2016 08/18/2020 Dyspnea, unspecified 03/08/2016 08/16/2020 Angiomyolipoma of right kidney 01/11/2016 1 Essential hypertension with goal blood pressure less than 140/90 12/13/2015 04/12/2017 Obstructive sleep apnea syndrome 12/13/2015 04/12/2017 Superficial skin infection 08/31/201503/13 CKD stage 3 due to type 2 diabetes mellitus 01/1011/16/2018 Overview: Dr. Lilian Vance, nephrology BMI 45.0-49.9, adult 02/06/2015 12/01/2019 Venous insufficiency 02/06/2015 04/12/2017 DM type 2 causing CKD stage 3 09/21/2014 Overview: Dr Landen Best, endocrinology Degenerative arthritis of hip 07/01/2014 BMI 45.0-49.9, adult 03/31/2014 10/13/2014 Diabetes mellitus type II, uncontrolled 11/26/19 14 02/06/2015 BMI 40.0-44.9, adult 10/14/2013 03/31/2014 Chest pain 09/13/2012 03/13/2016 Overview: Substernal pressure lasting ~5hrs, partially relieved with SLN. Significant risk factors for CAD (HTN, HLD, DM). EKG does to show ST changes. Initial CE at [facility] are supposedly negative. Prior stress test in 2010 was normal. DM well controlled. Currently low likelihood for ACS. - EKG - trend Donald - stress test vs [facility] S/P total knee replacement using cement 07/02/20 12 07/15/2018 Degenerative arthritis of right knee 06/10/2012 08/12/2014 Allergic contact dermatitis due to metals 201108/16/2020 Sensorineural hearing loss, bilateral 07/19/2011 08/16/2020 Diverticulosis 08/23/2010 03/13/2016 Thyroid CA 02/21/2010 08/12/2014 Overview: * Surgery (12/15/09): total thyroidectomy, Dr. Jamey Ibrahim, [facility] * Path (10/29/09): FNA Atypical cells present in a background of cyst contents, suspicious for papillary thyroid carcinoma (12/15/09): single well-circumscribed nodule in the right inferior lobe, which measured 3.5 cm in greatest dimension. The nodule was extensively hemorrhagic and cystic with a rim of viable material which ranges in appearance from papillary architecture to follicular structures. There is no evidence of a higher grade component. There is no definitive lymphovascular space invasion identified. In some areas, the tumor cells have oncocytic cytoplasm, however, the cells do not meet criteria for tall-cell variant of papillary thyroid carcinoma. * SIDDIQI (02/17/10): Rx 131-Iodine 102.4 mCi, Thyrogen-stim * Scan (02/24/10): post-treatment scan (Thyrogen-stim) shows uptake in left neck, also in liver area. SPECT images show one focus of uptake in lateral segment of the left lobe of the liver, one in the medial segment of the left lobe of liver, and one in the posterior segment of the right lobe of the liver. (05/03/11): Thyrogen stim 123-Iodine scan negative * Thyroglobulin Component Thyroglobulin TG Antibody Screen Stimulation Latest Ref Rng 0.8 - 49.0 ng/mL <14.4 IU/mL 11/05/2009 75.7 (H) 1.0 01/18/2010 <0.2 (L) 1.1 02/16/2010 0.3 (L) 1.0 Thyrogen 07/05/2010 <0.2 (L) 1.3 12/27/2010 <0.2 (L) 1.3 05/08/2011 <0.2 (L) 1.1 Thyrogen 07/24/2011 <0.2 (L) 1.5 01/23/2012 <0.2 (L) 1.0 07/27/2012 <0.2 (L) <1.0 02/18/2013 <0.2 (L) <1.0 08/12/2013 <0.2 (L) <1.0 * mRNA (11/03/09): TSH-R mRNA=1.7 ng/ug (11/30/09): TSH-R mRNA=1.8 ng/ug (01/18/10): no TSH-R mRNA assay postop (07/05/10): TSH-R mRNA <1.0 ng/ug (12/27/10): TSH-R mRNA <1.0 ng/ug * Ultrasound (01/18/10): no suspicious adenopathy along great vessels or in lateral neck on either side. No masses in thyroid bed. (12/27/10): no suspicious adenopathy along great vessels or in lateral neck on either side. No masses in thyroid bed. (01/24/12): no suspicious adenopathy along great vessels or in lateral neck on either side. No masses in thyroid bed. (08/11/13): no suspicious adenopathy along great vessels or in lateral neck on either side. No masses in thyroid bed. Thyroid nodule 10/20/2009 03/02/2010 Incisional hernia without mention of obstruction or gangrene 09/12/2005 08/12/2014 Symptomatic menopausal or female climacteric sta aniceto 04/07/2003 10/15/2017 Diabetes mellitus type 2 03/02/2003 014 Overview: *Type (): dx type 2 diabetes *Control hx Component Hemoglobin A1C Latest Ref Rng 4.0 - 6.0 % 01/17/2011 6.8 05/08/2011 7.2 07/24/2011 6.8 01/23/2012 6.7 07/27/2012 6.1 (H) 02/18/2013 6.4 (H) 08/08/2013 7.0 (H) 10/13/2013 7.1 (H) 02/17/14 7.3 * Eye hx (10/2008): no DM changes per Dr. Campoverde (07/2013): no DM changes per pt, exam Dr. Campoverde * Renal hx Component Albumin/Creat Ratio Latest Ref Rng 0 - 30 mg/g 04/03/2005 8 05/03/2006 8 03/26/2008 13 01/22/2009 18 02/16/2010 10 07/05/2010 9 05/08/2011 13 08/08/2013 9 * Vascular hx (11/12/13): no hx [place], stroke, Component Latest Ref Rng 02/18/2013 08/12/2013 10/13/2013 Triglyceride 30 - 149 mg/dL 114 123 126 Cholesterol 100 - 199 mg/dL 196 192 187 HDL Cholesterol >55 mg/dL 47 (L) 58 52 (L) VLDL Cholesterol 6 - 40 mg/dL 23 25 25 LDL Cholesterol 60 - 129 mg/dL 126 109 110 Fasting Time FASTING FASTING fasting TC:HDL Ratio 1.00 - 5.00 4.17 3.31 3.60 LDL:HDL Ratio 0.50 - 3.55 2.68 1.88 2.12 Non HDL Cholesterol 90 - 159 mg/dL 149 134 135 * Sleep (11/12/13): has obstructive sleep apnea, uses BiPAP since titration 04/07/13 * Exercise (11/12/13): not exercisnig * Medications (11/12/13): Victoza 1.8 mg daily, metformin 500 mg 2-1-1, * Physician (11/12/13): primary physician is Hayley Malone Morbid obesity 03/02/2003 07/15/2014 HYPERLIPIDEMIA NEC/NOS 5 documented as of this encounter (statuses as of 12/23/2022) [facility]11-02-2020 History of Past illness Narrative* Problem Noted Date Resolved Date Postoperative abdominal pain 07/12/202011/2020 Mild protein-calorie malnutrition 06/28/2020 06/29/2020 Infected prosthetic mesh of abdominal wall 06/2006/30/2020 Obesity, Class II, BMI 35-39.9 06/13/2019 1 10/17/2019 SBO (small bowel obstruction) 06/07/2019 Morbid obesity 03/10/2019 06/13/2019 Abnormal cardiovascular stress test 09/11/2017 10/15/2017 Primary osteoarthritis of right hip 11/27/2016 08/18/2020 Trochanteric bursitis of right hip 11/27/2016 08/18/2020 Dyspnea, unspecified 03/08/2016 08/16/2020 Angiomyolipoma of right kidney 01/11/2016 1 Essential hypertension with goal blood pressure less than 140/90 12/13/2015 04/12/2017 Obstructive sleep apnea syndrome 12/13/2015 04/12/2017 Superficial skin infection 08/31/201503/13 CKD stage 3 due to type 2 diabetes mellitus 01/1011/16/2018 Overview: Dr. Lilian Vance, nephrology BMI 45.0-49.9, adult 02/06/2015 12/01/2019 Venous insufficiency 02/06/2015 04/12/2017 DM type 2 causing CKD stage 3 09/21/2014 Overview: Dr Landen Best, endocrinology Degenerative arthritis of hip 07/01/2014 BMI 45.0-49.9, adult 03/31/2014 10/13/2014 Diabetes mellitus type II, uncontrolled 11/26/19 14 02/06/2015 BMI 40.0-44.9, adult 10/14/2013 03/31/2014 Chest pain 09/13/2012 03/13/2016 Overview: Substernal pressure lasting ~5hrs, partially relieved with SLN. Significant risk factors for CAD (HTN, HLD, DM). EKG does to show ST changes. Initial CE at [facility] are supposedly negative. Prior stress test in 2010 was normal. DM well controlled. Currently low likelihood for ACS. - EKG - trend Donald - stress test vs [facility] S/P total knee replacement using cement 07/02/20 12 07/15/2018 Degenerative arthritis of right knee 06/10/2012 08/12/2014 Allergic contact dermatitis due to metals 201108/16/2020 Sensorineural hearing loss, bilateral 07/19/2011 08/16/2020 Diverticulosis 08/23/2010 03/13/2016 Thyroid CA 02/21/2010 08/12/2014 Overview: * Surgery (12/15/09): total thyroidectomy, Dr. Jamey Ibrahim, [facility] * Path (10/29/09): FNA Atypical cells present in a background of cyst contents, suspicious for papillary thyroid carcinoma (12/15/09): single well-circumscribed nodule in the right inferior lobe, which measured 3.5 cm in greatest dimension. The nodule was extensively hemorrhagic and cystic with a rim of viable material which ranges in appearance from papillary architecture to follicular structures. There is no evidence of a higher grade component. There is no definitive lymphovascular space invasion identified. In some areas, the tumor cells have oncocytic cytoplasm, however, the cells do not meet criteria for tall-cell variant of papillary thyroid carcinoma. * SIDDIQI (02/17/10): Rx 131-Iodine 102.4 mCi, Thyrogen-stim * Scan (02/24/10): post-treatment scan (Thyrogen-stim) shows uptake in left neck, also in liver area. SPECT images show one focus of uptake in lateral segment of the left lobe of the liver, one in the medial segment of the left lobe of liver, and one in the posterior segment of the right lobe of the liver. (05/03/11): Thyrogen stim 123-Iodine scan negative * Thyroglobulin Component Thyroglobulin TG Antibody Screen Stimulation Latest Ref Rng 0.8 - 49.0 ng/mL <14.4 IU/mL 11/05/2009 75.7 (H) 1.0 01/18/2010 <0.2 (L) 1.1 02/16/2010 0.3 (L) 1.0 Thyrogen 07/05/2010 <0.2 (L) 1.3 12/27/2010 <0.2 (L) 1.3 05/08/2011 <0.2 (L) 1.1 Thyrogen 07/24/2011 <0.2 (L) 1.5 01/23/2012 <0.2 (L) 1.0 07/27/2012 <0.2 (L) <1.0 02/18/2013 <0.2 (L) <1.0 08/12/2013 <0.2 (L) <1.0 * mRNA (11/03/09): TSH-R mRNA=1.7 ng/ug (11/30/09): TSH-R mRNA=1.8 ng/ug (01/18/10): no TSH-R mRNA assay postop (07/05/10): TSH-R mRNA <1.0 ng/ug (12/27/10): TSH-R mRNA <1.0 ng/ug * Ultrasound (01/18/10): no suspicious adenopathy along great vessels or in lateral neck on either side. No masses in thyroid bed. (12/27/10): no suspicious adenopathy along great vessels or in lateral neck on either side. No masses in thyroid bed. (01/24/12): no suspicious adenopathy along great vessels or in lateral neck on either side. No masses in thyroid bed. (08/11/13): no suspicious adenopathy along great vessels or in lateral neck on either side. No masses in thyroid bed. Thyroid nodule 10/20/2009 03/02/2010 Incisional hernia without mention of obstruction or gangrene 09/12/2005 08/12/2014 Symptomatic menopausal or female climacteric sta aniceto 04/07/2003 10/15/2017 Diabetes mellitus type 2 03/02/2003 014 Overview: *Type (): dx type 2 diabetes *Control hx Component Hemoglobin A1C Latest Ref Rng 4.0 - 6.0 % 01/17/2011 6.8 05/08/2011 7.2 07/24/2011 6.8 01/23/2012 6.7 07/27/2012 6.1 (H) 02/18/2013 6.4 (H) 08/08/2013 7.0 (H) 10/13/2013 7.1 (H) 02/17/14 7.3 * Eye hx (10/2008): no DM changes per Dr. Campoverde (07/2013): no DM changes per pt, exam Dr. Campoverde * Renal hx Component Albumin/Creat Ratio Latest Ref Rng 0 - 30 mg/g 04/03/2005 8 05/03/2006 8 03/26/2008 13 01/22/2009 18 02/16/2010 10 07/05/2010 9 05/08/2011 13 08/08/2013 9 * Vascular hx (11/12/13): no hx [place], stroke, Component Latest Ref Rng 02/18/2013 08/12/2013 10/13/2013 Triglyceride 30 - 149 mg/dL 114 123 126 Cholesterol 100 - 199 mg/dL 196 192 187 HDL Cholesterol >55 mg/dL 47 (L) 58 52 (L) VLDL Cholesterol 6 - 40 mg/dL 23 25 25 LDL Cholesterol 60 - 129 mg/dL 126 109 110 Fasting Time FASTING FASTING fasting TC:HDL Ratio 1.00 - 5.00 4.17 3.31 3.60 LDL:HDL Ratio 0.50 - 3.55 2.68 1.88 2.12 Non HDL Cholesterol 90 - 159 mg/dL 149 134 135 * Sleep (11/12/13): has obstructive sleep apnea, uses BiPAP since titration 04/07/13 * Exercise (11/12/13): not exercisnig * Medications (11/12/13): Victoza 1.8 mg daily, metformin 500 mg 2-1-1, * Physician (11/12/13): primary physician is Hayley Malone Morbid obesity 03/02/2003 07/15/2014 HYPERLIPIDEMIA NEC/NOS 5 documented as of this encounter (statuses as of 12/25/2022) [facility]11-[facility]2020 History of Past illness Narrative* Problem Noted Date Resolved Date Postoperative abdominal pain 07/12/202011/2020 Mild protein-calorie malnutrition 06/28/2020 06/29/2020 Infected prosthetic mesh of abdominal wall 06/2006/30/2020 Obesity, Class II, BMI 35-39.9 06/13/2019 1 10/17/2019 SBO (small bowel obstruction) 06/07/2019 Morbid obesity 03/10/2019 06/13/2019 Abnormal cardiovascular stress test 09/11/2017 10/15/2017 Primary osteoarthritis of right hip 11/27/2016 08/18/2020 Trochanteric bursitis of right hip 11/27/2016 08/18/2020 Dyspnea, unspecified 03/08/2016 08/16/2020 Angiomyolipoma of right kidney 01/11/2016 1 Essential hypertension with goal blood pressure less than 140/90 12/13/2015 04/12/2017 Obstructive sleep apnea syndrome 12/13/2015 04/12/2017 Superficial skin infection 08/31/201503/13 CKD stage 3 due to type 2 diabetes mellitus 01/1011/16/2018 Overview: Dr. Lilian Vance, nephrology BMI 45.0-49.9, adult 02/06/2015 12/01/2019 Venous insufficiency 02/06/2015 04/12/2017 DM type 2 causing CKD stage 3 09/21/2014 Overview: Dr Landen Best, endocrinology Degenerative arthritis of hip 07/01/2014 BMI 45.0-49.9, adult 03/31/2014 10/13/2014 Diabetes mellitus type II, uncontrolled 11/26/19 14 02/06/2015 BMI 40.0-44.9, adult 10/14/2013 03/31/2014 Chest pain 09/13/2012 03/13/2016 Overview: Substernal pressure lasting ~5hrs, partially relieved with SLN. Significant risk factors for CAD (HTN, HLD, DM). EKG does to show ST changes. Initial CE at [facility] are supposedly negative. Prior stress test in 2010 was normal. DM well controlled. Currently low likelihood for ACS. - EKG - trend Donald - stress test vs [facility] S/P total knee replacement using cement 07/02/20 12 07/15/2018 Degenerative arthritis of right knee 06/10/2012 08/12/2014 Allergic contact dermatitis due to metals 201108/16/2020 Sensorineural hearing loss, bilateral 07/19/2011 08/16/2020 Diverticulosis 08/23/2010 03/13/2016 Thyroid CA 02/21/2010 08/12/2014 Overview: * Surgery (12/15/09): total thyroidectomy, Dr. Jamey Ibrahim, [facility] * Path (10/29/09): FNA Atypical cells present in a background of cyst contents, suspicious for papillary thyroid carcinoma (12/15/09): single well-circumscribed nodule in the right inferior lobe, which measured 3.5 cm in greatest dimension. The nodule was extensively hemorrhagic and cystic with a rim of viable material which ranges in appearance from papillary architecture to follicular structures. There is no evidence of a higher grade component. There is no definitive lymphovascular space invasion identified. In some areas, the tumor cells have oncocytic cytoplasm, however, the cells do not meet criteria for tall-cell variant of papillary thyroid carcinoma. * SIDDIQI (02/17/10): Rx 131-Iodine 102.4 mCi, Thyrogen-stim * Scan (02/24/10): post-treatment scan (Thyrogen-stim) shows uptake in left neck, also in liver area. SPECT images show one focus of uptake in lateral segment of the left lobe of the liver, one in the medial segment of the left lobe of liver, and one in the posterior segment of the right lobe of the liver. (05/03/11): Thyrogen stim 123-Iodine scan negative * Thyroglobulin Component Thyroglobulin TG Antibody Screen Stimulation Latest Ref Rng 0.8 - 49.0 ng/mL <14.4 IU/mL 11/05/2009 75.7 (H) 1.0 01/18/2010 <0.2 (L) 1.1 02/16/2010 0.3 (L) 1.0 Thyrogen 07/05/2010 <0.2 (L) 1.3 12/27/2010 <0.2 (L) 1.3 05/08/2011 <0.2 (L) 1.1 Thyrogen 07/24/2011 <0.2 (L) 1.5 01/23/2012 <0.2 (L) 1.0 07/27/2012 <0.2 (L) <1.0 02/18/2013 <0.2 (L) <1.0 08/12/2013 <0.2 (L) <1.0 * mRNA (11/03/09): TSH-R mRNA=1.7 ng/ug (11/30/09): TSH-R mRNA=1.8 ng/ug (01/18/10): no TSH-R mRNA assay postop (07/05/10): TSH-R mRNA <1.0 ng/ug (12/27/10): TSH-R mRNA <1.0 ng/ug * Ultrasound (01/18/10): no suspicious adenopathy along great vessels or in lateral neck on either side. No masses in thyroid bed. (12/27/10): no suspicious adenopathy along great vessels or in lateral neck on either side. No masses in thyroid bed. (01/24/12): no suspicious adenopathy along great vessels or in lateral neck on either side. No masses in thyroid bed. (08/11/13): no suspicious adenopathy along great vessels or in lateral neck on either side. No masses in thyroid bed. Thyroid nodule 10/20/2009 03/02/2010 Incisional hernia without mention of obstruction or gangrene 09/12/2005 08/12/2014 Symptomatic menopausal or female climacteric sta aniceto 04/07/2003 10/15/2017 Diabetes mellitus type 2 03/02/2003 014 Overview: *Type (): dx type 2 diabetes *Control hx Component Hemoglobin A1C Latest Ref Rng 4.0 - 6.0 % 01/17/2011 6.8 05/08/2011 7.2 07/24/2011 6.8 01/23/2012 6.7 07/27/2012 6.1 (H) 02/18/2013 6.4 (H) 08/08/2013 7.0 (H) 10/13/2013 7.1 (H) 02/17/14 7.3 * Eye hx (10/2008): no DM changes per Dr. Campoverde (07/2013): no DM changes per pt, exam Dr. Campoverde * Renal hx Component Albumin/Creat Ratio Latest Ref Rng 0 - 30 mg/g 04/03/2005 8 05/03/2006 8 03/26/2008 13 01/22/2009 18 02/16/2010 10 07/05/2010 9 05/08/2011 13 08/08/2013 9 * Vascular hx (11/12/13): no hx [place], stroke, Component Latest Ref Rng 02/18/2013 08/12/2013 10/13/2013 Triglyceride 30 - 149 mg/dL 114 123 126 Cholesterol 100 - 199 mg/dL 196 192 187 HDL Cholesterol >55 mg/dL 47 (L) 58 52 (L) VLDL Cholesterol 6 - 40 mg/dL 23 25 25 LDL Cholesterol 60 - 129 mg/dL 126 109 110 Fasting Time FASTING FASTING fasting TC:HDL Ratio 1.00 - 5.00 4.17 3.31 3.60 LDL:HDL Ratio 0.50 - 3.55 2.68 1.88 2.12 Non HDL Cholesterol 90 - 159 mg/dL 149 134 135 * Sleep (11/12/13): has obstructive sleep apnea, uses BiPAP since titration 04/07/13 * Exercise (11/12/13): not exercisnig * Medications (11/12/13): Victoza 1.8 mg daily, metformin 500 mg 2-1-1, * Physician (11/12/13): primary physician is Hayley Malone Morbid obesity 03/02/2003 07/15/2014 HYPERLIPIDEMIA NEC/NOS 5 documented as of this encounter (statuses as of 01/05/2023) [facility] History of Past illness Narrative* Problem Noted Date Resolved Date Postoperative abdominal pain 07/12/202011/2020 Mild protein-calorie malnutrition 06/28/2020 06/29/2020 Infected prosthetic mesh of abdominal wall 06/2006/30/2020 Obesity, Class II, BMI 35-39.9 06/13/2019 1 10/17/2019 SBO (small bowel obstruction) 06/07/2019 Morbid obesity 03/10/2019 06/13/2019 Abnormal cardiovascular stress test 09/11/2017 10/15/2017 Primary osteoarthritis of right hip 11/27/2016 08/18/2020 Trochanteric bursitis of right hip 11/27/2016 08/18/2020 Dyspnea, unspecified 03/08/2016 08/16/2020 Angiomyolipoma of right kidney 01/11/2016 1 Essential hypertension with goal blood pressure less than 140/90 12/13/2015 04/12/2017 Obstructive sleep apnea syndrome 12/13/2015 04/12/2017 Superficial skin infection 08/31/201503/13 CKD stage 3 due to type 2 diabetes mellitus 01/1011/16/2018 Overview: Dr. Lilian Vance, nephrology BMI 45.0-49.9, adult 02/06/2015 12/01/2019 Venous insufficiency 02/06/2015 04/12/2017 DM type 2 causing CKD stage 3 09/21/2014 Overview: Dr Landen Best, endocrinology Degenerative arthritis of hip 07/01/2014 BMI 45.0-49.9, adult 03/31/2014 10/13/2014 Diabetes mellitus type II, uncontrolled 11/26/19 14 02/06/2015 BMI 40.0-44.9, adult 10/14/2013 03/31/2014 Chest pain 09/13/2012 03/13/2016 Overview: Substernal pressure lasting ~5hrs, partially relieved with SLN. Significant risk factors for CAD (HTN, HLD, DM). EKG does to show ST changes. Initial CE at [facility] are supposedly negative. Prior stress test in 2010 was normal. DM well controlled. Currently low likelihood for ACS. - EKG - trend Donald - stress test vs [facility] S/P total knee replacement using cement 07/02/20 12 07/15/2018 Degenerative arthritis of right knee 06/10/2012 08/12/2014 Allergic contact dermatitis due to metals 201108/16/2020 Sensorineural hearing loss, bilateral 07/19/2011 08/16/2020 Diverticulosis 08/23/2010 03/13/2016 Thyroid CA 02/21/2010 08/12/2014 Overview: * Surgery (12/15/09): total thyroidectomy, Dr. Jamey Ibrahim, [facility] * Path (10/29/09): FNA Atypical cells present in a background of cyst contents, suspicious for papillary thyroid carcinoma (12/15/09): single well-circumscribed nodule in the right inferior lobe, which measured 3.5 cm in greatest dimension. The nodule was extensively hemorrhagic and cystic with a rim of viable material which ranges in appearance from papillary architecture to follicular structures. There is no evidence of a higher grade component. There is no definitive lymphovascular space invasion identified. In some areas, the tumor cells have oncocytic cytoplasm, however, the cells do not meet criteria for tall-cell variant of papillary thyroid carcinoma. * SIDDIQI (02/17/10): Rx 131-Iodine 102.4 mCi, Thyrogen-stim * Scan (02/24/10): post-treatment scan (Thyrogen-stim) shows uptake in left neck, also in liver area. SPECT images show one focus of uptake in lateral segment of the left lobe of the liver, one in the medial segment of the left lobe of liver, and one in the posterior segment of the right lobe of the liver. (05/03/11): Thyrogen stim 123-Iodine scan negative * Thyroglobulin Component Thyroglobulin TG Antibody Screen Stimulation Latest Ref Rng 0.8 - 49.0 ng/mL <14.4 IU/mL 11/05/2009 75.7 (H) 1.0 01/18/2010 <0.2 (L) 1.1 02/16/2010 0.3 (L) 1.0 Thyrogen 07/05/2010 <0.2 (L) 1.3 12/27/2010 <0.2 (L) 1.3 05/08/2011 <0.2 (L) 1.1 Thyrogen 07/24/2011 <0.2 (L) 1.5 01/23/2012 <0.2 (L) 1.0 07/27/2012 <0.2 (L) <1.0 02/18/2013 <0.2 (L) <1.0 08/12/2013 <0.2 (L) <1.0 * mRNA (11/03/09): TSH-R mRNA=1.7 ng/ug (11/30/09): TSH-R mRNA=1.8 ng/ug (01/18/10): no TSH-R mRNA assay postop (07/05/10): TSH-R mRNA <1.0 ng/ug (12/27/10): TSH-R mRNA <1.0 ng/ug * Ultrasound (01/18/10): no suspicious adenopathy along great vessels or in lateral neck on either side. No masses in thyroid bed. (12/27/10): no suspicious adenopathy along great vessels or in lateral neck on either side. No masses in thyroid bed. (01/24/12): no suspicious adenopathy along great vessels or in lateral neck on either side. No masses in thyroid bed. (08/11/13): no suspicious adenopathy along great vessels or in lateral neck on either side. No masses in thyroid bed. Thyroid nodule 10/20/2009 03/02/2010 Incisional hernia without mention of obstruction or gangrene 09/12/2005 08/12/2014 Symptomatic menopausal or female climacteric sta aniceto 04/07/2003 10/15/2017 Diabetes mellitus type 2 03/02/2003 014 Overview: *Type (): dx type 2 diabetes *Control hx Component Hemoglobin A1C Latest Ref Rng 4.0 - 6.0 % 01/17/2011 6.8 05/08/2011 7.2 07/24/2011 6.8 01/23/2012 6.7 07/27/2012 6.1 (H) 02/18/2013 6.4 (H) 08/08/2013 7.0 (H) 10/13/2013 7.1 (H) 02/17/14 7.3 * Eye hx (10/2008): no DM changes per Dr. Campoverde (07/2013): no DM changes per pt, exam Dr. Campoverde * Renal hx Component Albumin/Creat Ratio Latest Ref Rng 0 - 30 mg/g 04/03/2005 8 05/03/2006 8 03/26/2008 13 01/22/2009 18 02/16/2010 10 07/05/2010 9 05/08/2011 13 08/08/2013 9 * Vascular hx (11/12/13): no hx [place], stroke, Component Latest Ref Rng 02/18/2013 08/12/2013 10/13/2013 Triglyceride 30 - 149 mg/dL 114 123 126 Cholesterol 100 - 199 mg/dL 196 192 187 HDL Cholesterol >55 mg/dL 47 (L) 58 52 (L) VLDL Cholesterol 6 - 40 mg/dL 23 25 25 LDL Cholesterol 60 - 129 mg/dL 126 109 110 Fasting Time FASTING FASTING fasting TC:HDL Ratio 1.00 - 5.00 4.17 3.31 3.60 LDL:HDL Ratio 0.50 - 3.55 2.68 1.88 2.12 Non HDL Cholesterol 90 - 159 mg/dL 149 134 135 * Sleep (11/12/13): has obstructive sleep apnea, uses BiPAP since titration 04/07/13 * Exercise (11/12/13): not exercisnig * Medications (11/12/13): Victoza 1.8 mg daily, metformin 500 mg 2-1-1, * Physician (11/12/13): primary physician is Hayley Malone Morbid obesity 03/02/2003 07/15/2014 HYPERLIPIDEMIA NEC/NOS 5 documented as of this encounter (statuses as of 01/05/2023) [facility] History of Past illness Narrative* Problem Noted Date Resolved Date Postoperative abdominal pain 07/12/202011/2020 Mild protein-calorie malnutrition 06/28/2020 06/29/2020 Infected prosthetic mesh of abdominal wall 06/2006/30/2020 Obesity, Class II, BMI 35-39.9 06/13/2019 1 10/17/2019 SBO (small bowel obstruction) 06/07/2019 Morbid obesity 03/10/2019 06/13/2019 Abnormal cardiovascular stress test 09/11/2017 10/15/2017 Primary osteoarthritis of right hip 11/27/2016 08/18/2020 Trochanteric bursitis of right hip 11/27/2016 08/18/2020 Dyspnea, unspecified 03/08/2016 08/16/2020 Angiomyolipoma of right kidney 01/11/2016 1 Essential hypertension with goal blood pressure less than 140/90 12/13/2015 04/12/2017 Obstructive sleep apnea syndrome 12/13/2015 04/12/2017 Superficial skin infection 08/31/201503/13 CKD stage 3 due to type 2 diabetes mellitus 01/1011/16/2018 Overview: Dr. Lilian Vance, nephrology BMI 45.0-49.9, adult 02/06/2015 12/01/2019 Venous insufficiency 02/06/2015 04/12/2017 DM type 2 causing CKD stage 3 09/21/2014 Overview: Dr Landen Best, endocrinology Degenerative arthritis of hip 07/01/2014 BMI 45.0-49.9, adult 03/31/2014 10/13/2014 Diabetes mellitus type II, uncontrolled 11/26/19 14 02/06/2015 BMI 40.0-44.9, adult 10/14/2013 03/31/2014 Chest pain 09/13/2012 03/13/2016 Overview: Substernal pressure lasting ~5hrs, partially relieved with SLN. Significant risk factors for CAD (HTN, HLD, DM). EKG does to show ST changes. Initial CE at [facility] are supposedly negative. Prior stress test in 2010 was normal. DM well controlled. Currently low likelihood for ACS. - EKG - trend Donald - stress test vs [facility] S/P total knee replacement using cement 07/02/20 12 07/15/2018 Degenerative arthritis of right knee 06/10/2012 08/12/2014 Allergic contact dermatitis due to metals 201108/16/2020 Sensorineural hearing loss, bilateral 07/19/2011 08/16/2020 Diverticulosis 08/23/2010 03/13/2016 Thyroid CA 02/21/2010 08/12/2014 Overview: * Surgery (12/15/09): total thyroidectomy, Dr. Jamey Ibrahim, [facility] * Path (10/29/09): FNA Atypical cells present in a background of cyst contents, suspicious for papillary thyroid carcinoma (12/15/09): single well-circumscribed nodule in the right inferior lobe, which measured 3.5 cm in greatest dimension. The nodule was extensively hemorrhagic and cystic with a rim of viable material which ranges in appearance from papillary architecture to follicular structures. There is no evidence of a higher grade component. There is no definitive lymphovascular space invasion identified. In some areas, the tumor cells have oncocytic cytoplasm, however, the cells do not meet criteria for tall-cell variant of papillary thyroid carcinoma. * SIDDIQI (02/17/10): Rx 131-Iodine 102.4 mCi, Thyrogen-stim * Scan (02/24/10): post-treatment scan (Thyrogen-stim) shows uptake in left neck, also in liver area. SPECT images show one focus of uptake in lateral segment of the left lobe of the liver, one in the medial segment of the left lobe of liver, and one in the posterior segment of the right lobe of the liver. (05/03/11): Thyrogen stim 123-Iodine scan negative * Thyroglobulin Component Thyroglobulin TG Antibody Screen Stimulation Latest Ref Rng 0.8 - 49.0 ng/mL <14.4 IU/mL 11/05/2009 75.7 (H) 1.0 01/18/2010 <0.2 (L) 1.1 02/16/2010 0.3 (L) 1.0 Thyrogen 07/05/2010 <0.2 (L) 1.3 12/27/2010 <0.2 (L) 1.3 05/08/2011 <0.2 (L) 1.1 Thyrogen 07/24/2011 <0.2 (L) 1.5 01/23/2012 <0.2 (L) 1.0 07/27/2012 <0.2 (L) <1.0 02/18/2013 <0.2 (L) <1.0 08/12/2013 <0.2 (L) <1.0 * mRNA (11/03/09): TSH-R mRNA=1.7 ng/ug (11/30/09): TSH-R mRNA=1.8 ng/ug (01/18/10): no TSH-R mRNA assay postop (07/05/10): TSH-R mRNA <1.0 ng/ug (12/27/10): TSH-R mRNA <1.0 ng/ug * Ultrasound (01/18/10): no suspicious adenopathy along great vessels or in lateral neck on either side. No masses in thyroid bed. (12/27/10): no suspicious adenopathy along great vessels or in lateral neck on either side. No masses in thyroid bed. (01/24/12): no suspicious adenopathy along great vessels or in lateral neck on either side. No masses in thyroid bed. (08/11/13): no suspicious adenopathy along great vessels or in lateral neck on either side. No masses in thyroid bed. Thyroid nodule 10/20/2009 03/02/2010 Incisional hernia without mention of obstruction or gangrene 09/12/2005 08/12/2014 Symptomatic menopausal or female climacteric sta aniceto 04/07/2003 10/15/2017 Diabetes mellitus type 2 03/02/2003 014 Overview: *Type (): dx type 2 diabetes *Control hx Component Hemoglobin A1C Latest Ref Rng 4.0 - 6.0 % 01/17/2011 6.8 05/08/2011 7.2 07/24/2011 6.8 01/23/2012 6.7 07/27/2012 6.1 (H) 02/18/2013 6.4 (H) 08/08/2013 7.0 (H) 10/13/2013 7.1 (H) 02/17/14 7.3 * Eye hx (10/2008): no DM changes per Dr. Campoverde (07/2013): no DM changes per pt, exam Dr. Campoverde * Renal hx Component Albumin/Creat Ratio Latest Ref Rng 0 - 30 mg/g 04/03/2005 8 05/03/2006 8 03/26/2008 13 01/22/2009 18 02/16/2010 10 07/05/2010 9 05/08/2011 13 08/08/2013 9 * Vascular hx (11/12/13): no hx [place], stroke, Component Latest Ref Rng 02/18/2013 08/12/2013 10/13/2013 Triglyceride 30 - 149 mg/dL 114 123 126 Cholesterol 100 - 199 mg/dL 196 192 187 HDL Cholesterol >55 mg/dL 47 (L) 58 52 (L) VLDL Cholesterol 6 - 40 mg/dL 23 25 25 LDL Cholesterol 60 - 129 mg/dL 126 109 110 Fasting Time FASTING FASTING fasting TC:HDL Ratio 1.00 - 5.00 4.17 3.31 3.60 LDL:HDL Ratio 0.50 - 3.55 2.68 1.88 2.12 Non HDL Cholesterol 90 - 159 mg/dL 149 134 135 * Sleep (11/12/13): has obstructive sleep apnea, uses BiPAP since titration 04/07/13 * Exercise (11/12/13): not exercisnig * Medications (11/12/13): Victoza 1.8 mg daily, metformin 500 mg 2-1-1, * Physician (11/12/13): primary physician is Hayley Malone Morbid obesity 03/02/2003 07/15/2014 HYPERLIPIDEMIA NEC/NOS 5 documented as of this encounter (statuses as of 01/08/2023) [facility]11-02-2020 History of Past illness Narrative* Problem Noted Date Resolved Date Postoperative abdominal pain 07/12/202011/2020 Mild protein-calorie malnutrition 06/28/2020 06/29/2020 Infected prosthetic mesh of abdominal wall 06/2006/30/2020 Obesity, Class II, BMI 35-39.9 06/13/2019 1 10/17/2019 SBO (small bowel obstruction) 06/07/2019 Morbid obesity 03/10/2019 06/13/2019 Abnormal cardiovascular stress test 09/11/2017 10/15/2017 Primary osteoarthritis of right hip 11/27/2016 08/18/2020 Trochanteric bursitis of right hip 11/27/2016 08/18/2020 Dyspnea, unspecified 03/08/2016 08/16/2020 Angiomyolipoma of right kidney 01/11/2016 1 Essential hypertension with goal blood pressure less than 140/90 12/13/2015 04/12/2017 Obstructive sleep apnea syndrome 12/13/2015 04/12/2017 Superficial skin infection 08/31/201503/13 CKD stage 3 due to type 2 diabetes mellitus 01/1011/16/2018 Overview: Dr. Lilian Vance, nephrology BMI 45.0-49.9, adult 02/06/2015 12/01/2019 Venous insufficiency 02/06/2015 04/12/2017 DM type 2 causing CKD stage 3 09/21/2014 Overview: Dr Landen Best, endocrinology Degenerative arthritis of hip 07/01/2014 BMI 45.0-49.9, adult 03/31/2014 10/13/2014 Diabetes mellitus type II, uncontrolled 11/26/19 14 02/06/2015 BMI 40.0-44.9, adult 10/14/2013 03/31/2014 Chest pain 09/13/2012 03/13/2016 Overview: Substernal pressure lasting ~5hrs, partially relieved with SLN. Significant risk factors for CAD (HTN, HLD, DM). EKG does to show ST changes. Initial CE at [facility] are supposedly negative. Prior stress test in 2010 was normal. DM well controlled. Currently low likelihood for ACS. - EKG - trend Donald - stress test vs [facility] S/P total knee replacement using cement 07/02/20 12 07/15/2018 Degenerative arthritis of right knee 06/10/2012 08/12/2014 Allergic contact dermatitis due to metals 201108/16/2020 Sensorineural hearing loss, bilateral 07/19/2011 08/16/2020 Diverticulosis 08/23/2010 03/13/2016 Thyroid CA 02/21/2010 08/12/2014 Overview: * Surgery (12/15/09): total thyroidectomy, Dr. Jamey Ibrahim, [facility] * Path (10/29/09): FNA Atypical cells present in a background of cyst contents, suspicious for papillary thyroid carcinoma (12/15/09): single well-circumscribed nodule in the right inferior lobe, which measured 3.5 cm in greatest dimension. The nodule was extensively hemorrhagic and cystic with a rim of viable material which ranges in appearance from papillary architecture to follicular structures. There is no evidence of a higher grade component. There is no definitive lymphovascular space invasion identified. In some areas, the tumor cells have oncocytic cytoplasm, however, the cells do not meet criteria for tall-cell variant of papillary thyroid carcinoma. * SIDDIQI (02/17/10): Rx 131-Iodine 102.4 mCi, Thyrogen-stim * Scan (02/24/10): post-treatment scan (Thyrogen-stim) shows uptake in left neck, also in liver area. SPECT images show one focus of uptake in lateral segment of the left lobe of the liver, one in the medial segment of the left lobe of liver, and one in the posterior segment of the right lobe of the liver. (05/03/11): Thyrogen stim 123-Iodine scan negative * Thyroglobulin Component Thyroglobulin TG Antibody Screen Stimulation Latest Ref Rng 0.8 - 49.0 ng/mL <14.4 IU/mL 11/05/2009 75.7 (H) 1.0 01/18/2010 <0.2 (L) 1.1 02/16/2010 0.3 (L) 1.0 Thyrogen 07/05/2010 <0.2 (L) 1.3 12/27/2010 <0.2 (L) 1.3 05/08/2011 <0.2 (L) 1.1 Thyrogen 07/24/2011 <0.2 (L) 1.5 01/23/2012 <0.2 (L) 1.0 07/27/2012 <0.2 (L) <1.0 02/18/2013 <0.2 (L) <1.0 08/12/2013 <0.2 (L) <1.0 * mRNA (11/03/09): TSH-R mRNA=1.7 ng/ug (11/30/09): TSH-R mRNA=1.8 ng/ug (01/18/10): no TSH-R mRNA assay postop (07/05/10): TSH-R mRNA <1.0 ng/ug (12/27/10): TSH-R mRNA <1.0 ng/ug * Ultrasound (01/18/10): no suspicious adenopathy along great vessels or in lateral neck on either side. No masses in thyroid bed. (12/27/10): no suspicious adenopathy along great vessels or in lateral neck on either side. No masses in thyroid bed. (01/24/12): no suspicious adenopathy along great vessels or in lateral neck on either side. No masses in thyroid bed. (08/11/13): no suspicious adenopathy along great vessels or in lateral neck on either side. No masses in thyroid bed. Thyroid nodule 10/20/2009 03/02/2010 Incisional hernia without mention of obstruction or gangrene 09/12/2005 08/12/2014 Symptomatic menopausal or female climacteric sta aniceto 04/07/2003 10/15/2017 Diabetes mellitus type 2 03/02/2003 014 Overview: *Type (): dx type 2 diabetes *Control hx Component Hemoglobin A1C Latest Ref Rng 4.0 - 6.0 % 01/17/2011 6.8 05/08/2011 7.2 07/24/2011 6.8 01/23/2012 6.7 07/27/2012 6.1 (H) 02/18/2013 6.4 (H) 08/08/2013 7.0 (H) 10/13/2013 7.1 (H) 02/17/14 7.3 * Eye hx (10/2008): no DM changes per Dr. Campoverde (07/2013): no DM changes per pt, exam Dr. Campoverde * Renal hx Component Albumin/Creat Ratio Latest Ref Rng 0 - 30 mg/g 04/03/2005 8 05/03/2006 8 03/26/2008 13 01/22/2009 18 02/16/2010 10 07/05/2010 9 05/08/2011 13 08/08/2013 9 * Vascular hx (11/12/13): no hx [place], stroke, Component Latest Ref Rng 02/18/2013 08/12/2013 10/13/2013 Triglyceride 30 - 149 mg/dL 114 123 126 Cholesterol 100 - 199 mg/dL 196 192 187 HDL Cholesterol >55 mg/dL 47 (L) 58 52 (L) VLDL Cholesterol 6 - 40 mg/dL 23 25 25 LDL Cholesterol 60 - 129 mg/dL 126 109 110 Fasting Time FASTING FASTING fasting TC:HDL Ratio 1.00 - 5.00 4.17 3.31 3.60 LDL:HDL Ratio 0.50 - 3.55 2.68 1.88 2.12 Non HDL Cholesterol 90 - 159 mg/dL 149 134 135 * Sleep (11/12/13): has obstructive sleep apnea, uses BiPAP since titration 04/07/13 * Exercise (11/12/13): not exercisnig * Medications (11/12/13): Victoza 1.8 mg daily, metformin 500 mg 2-1-1, * Physician (11/12/13): primary physician is Hayley Malone Morbid obesity 03/02/2003 07/15/2014 HYPERLIPIDEMIA NEC/NOS 5 documented as of this encounter (statuses as of 01/08/2023) [facility]11-[facility]2020 History of Past illness Narrative* Problem Noted Date Resolved Date Postoperative abdominal pain 07/12/202011/2020 Mild protein-calorie malnutrition 06/28/2020 06/29/2020 Infected prosthetic mesh of abdominal wall 06/2006/30/2020 Obesity, Class II, BMI 35-39.9 06/13/2019 1 10/17/2019 SBO (small bowel obstruction) 06/07/2019 Morbid obesity 03/10/2019 06/13/2019 Abnormal cardiovascular stress test 09/11/2017 10/15/2017 Primary osteoarthritis of right hip 11/27/2016 08/18/2020 Trochanteric bursitis of right hip 11/27/2016 08/18/2020 Dyspnea, unspecified 03/08/2016 08/16/2020 Angiomyolipoma of right kidney 01/11/2016 1 Essential hypertension with goal blood pressure less than 140/90 12/13/2015 04/12/2017 Obstructive sleep apnea syndrome 12/13/2015 04/12/2017 Superficial skin infection 08/31/201503/13 CKD stage 3 due to type 2 diabetes mellitus 01/1011/16/2018 Overview: Dr. Lilian Vance, nephrology BMI 45.0-49.9, adult 02/06/2015 12/01/2019 Venous insufficiency 02/06/2015 04/12/2017 DM type 2 causing CKD stage 3 09/21/2014 Overview: Dr Landen Best, endocrinology Degenerative arthritis of hip 07/01/2014 BMI 45.0-49.9, adult 03/31/2014 10/13/2014 Diabetes mellitus type II, uncontrolled 11/26/19 14 02/06/2015 BMI 40.0-44.9, adult 10/14/2013 03/31/2014 Chest pain 09/13/2012 03/13/2016 Overview: Substernal pressure lasting ~5hrs, partially relieved with SLN. Significant risk factors for CAD (HTN, HLD, DM). EKG does to show ST changes. Initial CE at [facility] are supposedly negative. Prior stress test in 2010 was normal. DM well controlled. Currently low likelihood for ACS. - EKG - trend Donald - stress test vs [facility] S/P total knee replacement using cement 07/02/20 12 07/15/2018 Degenerative arthritis of right knee 06/10/2012 08/12/2014 Allergic contact dermatitis due to metals 201108/16/2020 Sensorineural hearing loss, bilateral 07/19/2011 08/16/2020 Diverticulosis 08/23/2010 03/13/2016 Thyroid CA 02/21/2010 08/12/2014 Overview: * Surgery (12/15/09): total thyroidectomy, Dr. Jamey Ibrahim, [facility] * Path (10/29/09): FNA Atypical cells present in a background of cyst contents, suspicious for papillary thyroid carcinoma (12/15/09): single well-circumscribed nodule in the right inferior lobe, which measured 3.5 cm in greatest dimension. The nodule was extensively hemorrhagic and cystic with a rim of viable material which ranges in appearance from papillary architecture to follicular structures. There is no evidence of a higher grade component. There is no definitive lymphovascular space invasion identified. In some areas, the tumor cells have oncocytic cytoplasm, however, the cells do not meet criteria for tall-cell variant of papillary thyroid carcinoma. * SIDDIQI (02/17/10): Rx 131-Iodine 102.4 mCi, Thyrogen-stim * Scan (02/24/10): post-treatment scan (Thyrogen-stim) shows uptake in left neck, also in liver area. SPECT images show one focus of uptake in lateral segment of the left lobe of the liver, one in the medial segment of the left lobe of liver, and one in the posterior segment of the right lobe of the liver. (05/03/11): Thyrogen stim 123-Iodine scan negative * Thyroglobulin Component Thyroglobulin TG Antibody Screen Stimulation Latest Ref Rng 0.8 - 49.0 ng/mL <14.4 IU/mL 11/05/2009 75.7 (H) 1.0 01/18/2010 <0.2 (L) 1.1 02/16/2010 0.3 (L) 1.0 Thyrogen 07/05/2010 <0.2 (L) 1.3 12/27/2010 <0.2 (L) 1.3 05/08/2011 <0.2 (L) 1.1 Thyrogen 07/24/2011 <0.2 (L) 1.5 01/23/2012 <0.2 (L) 1.0 07/27/2012 <0.2 (L) <1.0 02/18/2013 <0.2 (L) <1.0 08/12/2013 <0.2 (L) <1.0 * mRNA (11/03/09): TSH-R mRNA=1.7 ng/ug (11/30/09): TSH-R mRNA=1.8 ng/ug (01/18/10): no TSH-R mRNA assay postop (07/05/10): TSH-R mRNA <1.0 ng/ug (12/27/10): TSH-R mRNA <1.0 ng/ug * Ultrasound (01/18/10): no suspicious adenopathy along great vessels or in lateral neck on either side. No masses in thyroid bed. (12/27/10): no suspicious adenopathy along great vessels or in lateral neck on either side. No masses in thyroid bed. (01/24/12): no suspicious adenopathy along great vessels or in lateral neck on either side. No masses in thyroid bed. (08/11/13): no suspicious adenopathy along great vessels or in lateral neck on either side. No masses in thyroid bed. Thyroid nodule 10/20/2009 03/02/2010 Incisional hernia without mention of obstruction or gangrene 09/12/2005 08/12/2014 Symptomatic menopausal or female climacteric sta aniceto 04/07/2003 10/15/2017 Diabetes mellitus type 2 03/02/2003 014 Overview: *Type (): dx type 2 diabetes *Control hx Component Hemoglobin A1C Latest Ref Rng 4.0 - 6.0 % 01/17/2011 6.8 05/08/2011 7.2 07/24/2011 6.8 01/23/2012 6.7 07/27/2012 6.1 (H) 02/18/2013 6.4 (H) 08/08/2013 7.0 (H) 10/13/2013 7.1 (H) 02/17/14 7.3 * Eye hx (10/2008): no DM changes per Dr. Campoverde (07/2013): no DM changes per pt, exam Dr. Campoverde * Renal hx Component Albumin/Creat Ratio Latest Ref Rng 0 - 30 mg/g 04/03/2005 8 05/03/2006 8 03/26/2008 13 01/22/2009 18 02/16/2010 10 07/05/2010 9 05/08/2011 13 08/08/2013 9 * Vascular hx (11/12/13): no hx [place], stroke, Component Latest Ref Rng 02/18/2013 08/12/2013 10/13/2013 Triglyceride 30 - 149 mg/dL 114 123 126 Cholesterol 100 - 199 mg/dL 196 192 187 HDL Cholesterol >55 mg/dL 47 (L) 58 52 (L) VLDL Cholesterol 6 - 40 mg/dL 23 25 25 LDL Cholesterol 60 - 129 mg/dL 126 109 110 Fasting Time FASTING FASTING fasting TC:HDL Ratio 1.00 - 5.00 4.17 3.31 3.60 LDL:HDL Ratio 0.50 - 3.55 2.68 1.88 2.12 Non HDL Cholesterol 90 - 159 mg/dL 149 134 135 * Sleep (11/12/13): has obstructive sleep apnea, uses BiPAP since titration 04/07/13 * Exercise (11/12/13): not exercisnig * Medications (11/12/13): Victoza 1.8 mg daily, metformin 500 mg 2-1-1, * Physician (11/12/13): primary physician is Hayley Malone Morbid obesity 03/02/2003 07/15/2014 HYPERLIPIDEMIA NEC/NOS 5 documented as of this encounter (statuses as of 01/10/2023) [facility]2020 History of Past illness Narrative* Problem Noted Date Resolved Date Postoperative abdominal pain 07/12/202011/2020 Mild protein-calorie malnutrition 06/28/2020 06/29/2020 Infected prosthetic mesh of abdominal wall 06/2006/30/2020 Obesity, Class II, BMI 35-39.9 06/13/2019 1 10/17/2019 SBO (small bowel obstruction) 06/07/2019 Morbid obesity 03/10/2019 06/13/2019 Abnormal cardiovascular stress test 09/11/2017 10/15/2017 Primary osteoarthritis of right hip 11/27/2016 08/18/2020 Trochanteric bursitis of right hip 11/27/2016 08/18/2020 Dyspnea, unspecified 03/08/2016 08/16/2020 Angiomyolipoma of right kidney 01/11/2016 1 Essential hypertension with goal blood pressure less than 140/90 12/13/2015 04/12/2017 Obstructive sleep apnea syndrome 12/13/2015 04/12/2017 Superficial skin infection 08/31/201503/13 CKD stage 3 due to type 2 diabetes mellitus 01/1011/16/2018 Overview: Dr. Lilian Vance, nephrology BMI 45.0-49.9, adult 02/06/2015 12/01/2019 Venous insufficiency 02/06/2015 04/12/2017 DM type 2 causing CKD stage 3 09/21/2014 Overview: Dr Landen Best, endocrinology Degenerative arthritis of hip 07/01/2014 BMI 45.0-49.9, adult 03/31/2014 10/13/2014 Diabetes mellitus type II, uncontrolled 11/26/19 14 02/06/2015 BMI 40.0-44.9, adult 10/14/2013 03/31/2014 Chest pain 09/13/2012 03/13/2016 Overview: Substernal pressure lasting ~5hrs, partially relieved with SLN. Significant risk factors for CAD (HTN, HLD, DM). EKG does to show ST changes. Initial CE at [facility] are supposedly negative. Prior stress test in 2010 was normal. DM well controlled. Currently low likelihood for ACS. - EKG - trend [facility] - stress test vs [facility] S/P total knee replacement using cement 07/02/20 12 07/15/2018 Degenerative arthritis of right knee 06/10/2012 08/12/2014 Allergic contact dermatitis due to metals 201108/16/2020 Sensorineural hearing loss, bilateral 07/19/2011 08/16/2020 Diverticulosis 08/23/2010 03/13/2016 Thyroid CA 02/21/2010 08/12/2014 Overview: * Surgery (12/15/09): total thyroidectomy, Dr. Jamey Ibrahim, [facility] * Path (10/29/09): FNA Atypical cells present in a background of cyst contents, suspicious for papillary thyroid carcinoma (12/15/09): single well-circumscribed nodule in the right inferior lobe, which measured 3.5 cm in greatest dimension. The nodule was extensively hemorrhagic and cystic with a rim of viable material which ranges in appearance from papillary architecture to follicular structures. There is no evidence of a higher grade component. There is no definitive lymphovascular space invasion identified. In some areas, the tumor cells have oncocytic cytoplasm, however, the cells do not meet criteria for tall-cell variant of papillary thyroid carcinoma. * SIDDIQI (02/17/10): Rx 131-Iodine 102.4 mCi, Thyrogen-stim * Scan (02/24/10): post-treatment scan (Thyrogen-stim) shows uptake in left neck, also in liver area. SPECT images show one focus of uptake in lateral segment of the left lobe of the liver, one in the medial segment of the left lobe of liver, and one in the posterior segment of the right lobe of the liver. (05/03/11): Thyrogen stim 123-Iodine scan negative * Thyroglobulin Component Thyroglobulin TG Antibody Screen Stimulation Latest Ref Rng 0.8 - 49.0 ng/mL <14.4 IU/mL 11/05/2009 75.7 (H) 1.0 01/18/2010 <0.2 (L) 1.1 02/16/2010 0.3 (L) 1.0 Thyrogen 07/05/2010 <0.2 (L) 1.3 12/27/2010 <0.2 (L) 1.3 05/08/2011 <0.2 (L) 1.1 Thyrogen 07/24/2011 <0.2 (L) 1.5 01/23/2012 <0.2 (L) 1.0 07/27/2012 <0.2 (L) <1.0 02/18/2013 <0.2 (L) <1.0 08/12/2013 <0.2 (L) <1.0 * mRNA (11/03/09): TSH-R mRNA=1.7 ng/ug (11/30/09): TSH-R mRNA=1.8 ng/ug (01/18/10): no TSH-R mRNA assay postop (07/05/10): TSH-R mRNA <1.0 ng/ug (12/27/10): TSH-R mRNA <1.0 ng/ug * Ultrasound (01/18/10): no suspicious adenopathy along great vessels or in lateral neck on either side. No masses in thyroid bed. (12/27/10): no suspicious adenopathy along great vessels or in lateral neck on either side. No masses in thyroid bed. (01/24/12): no suspicious adenopathy along great vessels or in lateral neck on either side. No masses in thyroid bed. (08/11/13): no suspicious adenopathy along great vessels or in lateral neck on either side. No masses in thyroid bed. Thyroid nodule 10/20/2009 03/02/2010 Incisional hernia without mention of obstruction or gangrene 09/12/2005 08/12/2014 Symptomatic menopausal or female climacteric sta aniceto 04/07/2003 10/15/2017 Diabetes mellitus type 2 03/02/2003 014 Overview: *Type (): dx type 2 diabetes *Control hx Component Hemoglobin A1C Latest Ref Rng 4.0 - 6.0 % 01/17/2011 6.8 05/08/2011 7.2 07/24/2011 6.8 01/23/2012 6.7 07/27/2012 6.1 (H) 02/18/2013 6.4 (H) 08/08/2013 7.0 (H) 10/13/2013 7.1 (H) 02/17/14 7.3 * Eye hx (10/2008): no DM changes per Dr. Campoverde (07/2013): no DM changes per pt, exam Dr. Campoverde * Renal hx Component Albumin/Creat Ratio Latest Ref Rng 0 - 30 mg/g 04/03/2005 8 05/03/2006 8 03/26/2008 13 01/22/2009 18 02/16/2010 10 07/05/2010 9 05/08/2011 13 08/08/2013 9 * Vascular hx (11/12/13): no hx [place], stroke, Component Latest Ref Rng 02/18/2013 08/12/2013 10/13/2013 Triglyceride 30 - 149 mg/dL 114 123 126 Cholesterol 100 - 199 mg/dL 196 192 187 HDL Cholesterol >55 mg/dL 47 (L) 58 52 (L) VLDL Cholesterol 6 - 40 mg/dL 23 25 25 LDL Cholesterol 60 - 129 mg/dL 126 109 110 Fasting Time FASTING FASTING fasting TC:HDL Ratio 1.00 - 5.00 4.17 3.31 3.60 LDL:HDL Ratio 0.50 - 3.55 2.68 1.88 2.12 Non HDL Cholesterol 90 - 159 mg/dL 149 134 135 * Sleep (11/12/13): has obstructive sleep apnea, uses BiPAP since titration 04/07/13 * Exercise (11/12/13): not exercisnig * Medications (11/12/13): Victoza 1.8 mg daily, metformin 500 mg 2-1-1, * Physician (11/12/13): primary physician is Hayley Malone Morbid obesity 03/02/2003 07/15/2014 HYPERLIPIDEMIA NEC/NOS 5 documented as of this encounter (statuses as of 01/12/2023) [facility] History of Past illness Narrative* Problem Noted Date Resolved Date Postoperative abdominal pain 07/12/202011/2020 Mild protein-calorie malnutrition 06/28/2020 06/29/2020 Infected prosthetic mesh of abdominal wall 06/2006/30/2020 Obesity, Class II, BMI 35-39.9 06/13/2019 1 10/17/2019 SBO (small bowel obstruction) 06/07/2019 Morbid obesity 03/10/2019 06/13/2019 Abnormal cardiovascular stress test 09/11/2017 10/15/2017 Primary osteoarthritis of right hip 11/27/2016 08/18/2020 Trochanteric bursitis of right hip 11/27/2016 08/18/2020 Dyspnea, unspecified 03/08/2016 08/16/2020 Angiomyolipoma of right kidney 01/11/2016 1 Essential hypertension with goal blood pressure less than 140/90 12/13/2015 04/12/2017 Obstructive sleep apnea syndrome 12/13/2015 04/12/2017 Superficial skin infection 08/31/201503/13 CKD stage 3 due to type 2 diabetes mellitus 01/1011/16/2018 Overview: Dr. Lilian Vance, nephrology BMI 45.0-49.9, adult 02/06/2015 12/01/2019 Venous insufficiency 02/06/2015 04/12/2017 DM type 2 causing CKD stage 3 09/21/2014 Overview: Dr Landen Best, endocrinology Degenerative arthritis of hip 07/01/2014 BMI 45.0-49.9, adult 03/31/2014 10/13/2014 Diabetes mellitus type II, uncontrolled 11/26/19 14 02/06/2015 BMI 40.0-44.9, adult 10/14/2013 03/31/2014 Chest pain 09/13/2012 03/13/2016 Overview: Substernal pressure lasting ~5hrs, partially relieved with SLN. Significant risk factors for CAD (HTN, HLD, DM). EKG does to show ST changes. Initial CE at [facility] are supposedly negative. Prior stress test in 2010 was normal. DM well controlled. Currently low likelihood for ACS. - EKG - trend Donald - stress test vs [facility] S/P total knee replacement using cement 07/02/20 12 07/15/2018 Degenerative arthritis of right knee 06/10/2012 08/12/2014 Allergic contact dermatitis due to metals 201108/16/2020 Sensorineural hearing loss, bilateral 07/19/2011 08/16/2020 Diverticulosis 08/23/2010 03/13/2016 Thyroid CA 02/21/2010 08/12/2014 Overview: * Surgery (12/15/09): total thyroidectomy, Dr. Jamey Ibrahim, [facility] * Path (10/29/09): FNA Atypical cells present in a background of cyst contents, suspicious for papillary thyroid carcinoma (12/15/09): single well-circumscribed nodule in the right inferior lobe, which measured 3.5 cm in greatest dimension. The nodule was extensively hemorrhagic and cystic with a rim of viable material which ranges in appearance from papillary architecture to follicular structures. There is no evidence of a higher grade component. There is no definitive lymphovascular space invasion identified. In some areas, the tumor cells have oncocytic cytoplasm, however, the cells do not meet criteria for tall-cell variant of papillary thyroid carcinoma. * SIDDIQI (02/17/10): Rx 131-Iodine 102.4 mCi, Thyrogen-stim * Scan (02/24/10): post-treatment scan (Thyrogen-stim) shows uptake in left neck, also in liver area. SPECT images show one focus of uptake in lateral segment of the left lobe of the liver, one in the medial segment of the left lobe of liver, and one in the posterior segment of the right lobe of the liver. (05/03/11): Thyrogen stim 123-Iodine scan negative * Thyroglobulin Component Thyroglobulin TG Antibody Screen Stimulation Latest Ref Rng 0.8 - 49.0 ng/mL <14.4 IU/mL 11/05/2009 75.7 (H) 1.0 01/18/2010 <0.2 (L) 1.1 02/16/2010 0.3 (L) 1.0 Thyrogen 07/05/2010 <0.2 (L) 1.3 12/27/2010 <0.2 (L) 1.3 05/08/2011 <0.2 (L) 1.1 Thyrogen 07/24/2011 <0.2 (L) 1.5 01/23/2012 <0.2 (L) 1.0 07/27/2012 <0.2 (L) <1.0 02/18/2013 <0.2 (L) <1.0 08/12/2013 <0.2 (L) <1.0 * mRNA (11/03/09): TSH-R mRNA=1.7 ng/ug (11/30/09): TSH-R mRNA=1.8 ng/ug (01/18/10): no TSH-R mRNA assay postop (07/05/10): TSH-R mRNA <1.0 ng/ug (12/27/10): TSH-R mRNA <1.0 ng/ug * Ultrasound (01/18/10): no suspicious adenopathy along great vessels or in lateral neck on either side. No masses in thyroid bed. (12/27/10): no suspicious adenopathy along great vessels or in lateral neck on either side. No masses in thyroid bed. (01/24/12): no suspicious adenopathy along great vessels or in lateral neck on either side. No masses in thyroid bed. (08/11/13): no suspicious adenopathy along great vessels or in lateral neck on either side. No masses in thyroid bed. Thyroid nodule 10/20/2009 03/02/2010 Incisional hernia without mention of obstruction or gangrene 09/12/2005 08/12/2014 Symptomatic menopausal or female climacteric sta aniceto 04/07/2003 10/15/2017 Diabetes mellitus type 2 03/02/2003 014 Overview: *Type (): dx type 2 diabetes *Control hx Component Hemoglobin A1C Latest Ref Rng 4.0 - 6.0 % 01/17/2011 6.8 05/08/2011 7.2 07/24/2011 6.8 01/23/2012 6.7 07/27/2012 6.1 (H) 02/18/2013 6.4 (H) 08/08/2013 7.0 (H) 10/13/2013 7.1 (H) 02/17/14 7.3 * Eye hx (10/2008): no DM changes per Dr. Campoverde (07/2013): no DM changes per pt, exam Dr. Campoverde * Renal hx Component Albumin/Creat Ratio Latest Ref Rng 0 - 30 mg/g 04/03/2005 8 05/03/2006 8 03/26/2008 13 01/22/2009 18 02/16/2010 10 07/05/2010 9 05/08/2011 13 08/08/2013 9 * Vascular hx (11/12/13): no hx [place], stroke, Component Latest Ref Rng 02/18/2013 08/12/2013 10/13/2013 Triglyceride 30 - 149 mg/dL 114 123 126 Cholesterol 100 - 199 mg/dL 196 192 187 HDL Cholesterol >55 mg/dL 47 (L) 58 52 (L) VLDL Cholesterol 6 - 40 mg/dL 23 25 25 LDL Cholesterol 60 - 129 mg/dL 126 109 110 Fasting Time FASTING FASTING fasting TC:HDL Ratio 1.00 - 5.00 4.17 3.31 3.60 LDL:HDL Ratio 0.50 - 3.55 2.68 1.88 2.12 Non HDL Cholesterol 90 - 159 mg/dL 149 134 135 * Sleep (11/12/13): has obstructive sleep apnea, uses BiPAP since titration 04/07/13 * Exercise (11/12/13): not exercisnig * Medications (11/12/13): Victoza 1.8 mg daily, metformin 500 mg 2-1-1, * Physician (11/12/13): primary physician is Hayley Malone Morbid obesity 03/02/2003 07/15/2014 HYPERLIPIDEMIA NEC/NOS 5 documented as of this encounter (statuses as of 01/17/2023) [facility]11-02-2020 History of Past illness Narrative* Problem Noted Date Resolved Date Postoperative abdominal pain 07/12/202011/2020 Mild protein-calorie malnutrition 06/28/2020 06/29/2020 Infected prosthetic mesh of abdominal wall 06/2006/30/2020 Obesity, Class II, BMI 35-39.9 06/13/2019 1 10/17/2019 SBO (small bowel obstruction) 06/07/2019 Morbid obesity 03/10/2019 06/13/2019 Abnormal cardiovascular stress test 09/11/2017 10/15/2017 Primary osteoarthritis of right hip 11/27/2016 08/18/2020 Trochanteric bursitis of right hip 11/27/2016 08/18/2020 Dyspnea, unspecified 03/08/2016 08/16/2020 Angiomyolipoma of right kidney 01/11/2016 1 Essential hypertension with goal blood pressure less than 140/90 12/13/2015 04/12/2017 Obstructive sleep apnea syndrome 12/13/2015 04/12/2017 Superficial skin infection 08/31/201503/13 CKD stage 3 due to type 2 diabetes mellitus 01/1011/16/2018 Overview: Dr. Lilian Vance, nephrology BMI 45.0-49.9, adult 02/06/2015 12/01/2019 Venous insufficiency 02/06/2015 04/12/2017 DM type 2 causing CKD stage 3 09/21/2014 Overview: Dr Landen Best, endocrinology Degenerative arthritis of hip 07/01/2014 BMI 45.0-49.9, adult 03/31/2014 10/13/2014 Diabetes mellitus type II, uncontrolled 11/26/19 14 02/06/2015 BMI 40.0-44.9, adult 10/14/2013 03/31/2014 Chest pain 09/13/2012 03/13/2016 Overview: Substernal pressure lasting ~5hrs, partially relieved with SLN. Significant risk factors for CAD (HTN, HLD, DM). EKG does to show ST changes. Initial CE at [facility] are supposedly negative. Prior stress test in 2010 was normal. DM well controlled. Currently low likelihood for ACS. - EKG - trend Donald - stress test vs [facility] S/P total knee replacement using cement 07/02/20 12 07/15/2018 Degenerative arthritis of right knee 06/10/2012 08/12/2014 Allergic contact dermatitis due to metals 201108/16/2020 Sensorineural hearing loss, bilateral 07/19/2011 08/16/2020 Diverticulosis 08/23/2010 03/13/2016 Thyroid CA 02/21/2010 08/12/2014 Overview: * Surgery (12/15/09): total thyroidectomy, Dr. Jamey Ibrahim, [facility] * Path (10/29/09): FNA Atypical cells present in a background of cyst contents, suspicious for papillary thyroid carcinoma (12/15/09): single well-circumscribed nodule in the right inferior lobe, which measured 3.5 cm in greatest dimension. The nodule was extensively hemorrhagic and cystic with a rim of viable material which ranges in appearance from papillary architecture to follicular structures. There is no evidence of a higher grade component. There is no definitive lymphovascular space invasion identified. In some areas, the tumor cells have oncocytic cytoplasm, however, the cells do not meet criteria for tall-cell variant of papillary thyroid carcinoma. * SIDDIQI (02/17/10): Rx 131-Iodine 102.4 mCi, Thyrogen-stim * Scan (02/24/10): post-treatment scan (Thyrogen-stim) shows uptake in left neck, also in liver area. SPECT images show one focus of uptake in lateral segment of the left lobe of the liver, one in the medial segment of the left lobe of liver, and one in the posterior segment of the right lobe of the liver. (05/03/11): Thyrogen stim 123-Iodine scan negative * Thyroglobulin Component Thyroglobulin TG Antibody Screen Stimulation Latest Ref Rng 0.8 - 49.0 ng/mL <14.4 IU/mL 11/05/2009 75.7 (H) 1.0 01/18/2010 <0.2 (L) 1.1 02/16/2010 0.3 (L) 1.0 Thyrogen 07/05/2010 <0.2 (L) 1.3 12/27/2010 <0.2 (L) 1.3 05/08/2011 <0.2 (L) 1.1 Thyrogen 07/24/2011 <0.2 (L) 1.5 01/23/2012 <0.2 (L) 1.0 07/27/2012 <0.2 (L) <1.0 02/18/2013 <0.2 (L) <1.0 08/12/2013 <0.2 (L) <1.0 * mRNA (11/03/09): TSH-R mRNA=1.7 ng/ug (11/30/09): TSH-R mRNA=1.8 ng/ug (01/18/10): no TSH-R mRNA assay postop (07/05/10): TSH-R mRNA <1.0 ng/ug (12/27/10): TSH-R mRNA <1.0 ng/ug * Ultrasound (01/18/10): no suspicious adenopathy along great vessels or in lateral neck on either side. No masses in thyroid bed. (12/27/10): no suspicious adenopathy along great vessels or in lateral neck on either side. No masses in thyroid bed. (01/24/12): no suspicious adenopathy along great vessels or in lateral neck on either side. No masses in thyroid bed. (08/11/13): no suspicious adenopathy along great vessels or in lateral neck on either side. No masses in thyroid bed. Thyroid nodule 10/20/2009 03/02/2010 Incisional hernia without mention of obstruction or gangrene 09/12/2005 08/12/2014 Symptomatic menopausal or female climacteric sta aniceto 04/07/2003 10/15/2017 Diabetes mellitus type 2 03/02/2003 014 Overview: *Type (): dx type 2 diabetes *Control hx Component Hemoglobin A1C Latest Ref Rng 4.0 - 6.0 % 01/17/2011 6.8 05/08/2011 7.2 07/24/2011 6.8 01/23/2012 6.7 07/27/2012 6.1 (H) 02/18/2013 6.4 (H) 08/08/2013 7.0 (H) 10/13/2013 7.1 (H) 02/17/14 7.3 * Eye hx (10/2008): no DM changes per Dr. Campoverde (07/2013): no DM changes per pt, exam Dr. Campoverde * Renal hx Component Albumin/Creat Ratio Latest Ref Rng 0 - 30 mg/g 04/03/2005 8 05/03/2006 8 03/26/2008 13 01/22/2009 18 02/16/2010 10 07/05/2010 9 05/08/2011 13 08/08/2013 9 * Vascular hx (11/12/13): no hx [place], stroke, Component Latest Ref Rng 02/18/2013 08/12/2013 10/13/2013 Triglyceride 30 - 149 mg/dL 114 123 126 Cholesterol 100 - 199 mg/dL 196 192 187 HDL Cholesterol >55 mg/dL 47 (L) 58 52 (L) VLDL Cholesterol 6 - 40 mg/dL 23 25 25 LDL Cholesterol 60 - 129 mg/dL 126 109 110 Fasting Time FASTING FASTING fasting TC:HDL Ratio 1.00 - 5.00 4.17 3.31 3.60 LDL:HDL Ratio 0.50 - 3.55 2.68 1.88 2.12 Non HDL Cholesterol 90 - 159 mg/dL 149 134 135 * Sleep (11/12/13): has obstructive sleep apnea, uses BiPAP since titration 04/07/13 * Exercise (11/12/13): not exercisnig * Medications (11/12/13): Victoza 1.8 mg daily, metformin 500 mg 2-1-1, * Physician (11/12/13): primary physician is Hayley Malone Morbid obesity 03/02/2003 07/15/2014 HYPERLIPIDEMIA NEC/NOS 5 documented as of this encounter (statuses as of 02/09/2023) [facility]11-02-2020 History of Past illness Narrative* Problem Noted Date Resolved Date Postoperative abdominal pain 07/12/202011/2020 Mild protein-calorie malnutrition 06/28/2020 06/29/2020 Infected prosthetic mesh of abdominal wall 06/2006/30/2020 Obesity, Class II, BMI 35-39.9 06/13/2019 1 10/17/2019 SBO (small bowel obstruction) 06/07/2019 Morbid obesity 03/10/2019 06/13/2019 Abnormal cardiovascular stress test 09/11/2017 10/15/2017 Primary osteoarthritis of right hip 11/27/2016 08/18/2020 Trochanteric bursitis of right hip 11/27/2016 08/18/2020 Dyspnea, unspecified 03/08/2016 08/16/2020 Angiomyolipoma of right kidney 01/11/2016 1 Essential hypertension with goal blood pressure less than 140/90 12/13/2015 04/12/2017 Obstructive sleep apnea syndrome 12/13/2015 04/12/2017 Superficial skin infection 08/31/201503/13 CKD stage 3 due to type 2 diabetes mellitus 01/1011/16/2018 Overview: Dr. Lilian Vance, nephrology BMI 45.0-49.9, adult 02/06/2015 12/01/2019 Venous insufficiency 02/06/2015 04/12/2017 DM type 2 causing CKD stage 3 09/21/2014 Overview: Dr Landen Best, endocrinology Degenerative arthritis of hip 07/01/2014 BMI 45.0-49.9, adult 03/31/2014 10/13/2014 Diabetes mellitus type II, uncontrolled 11/26/19 14 02/06/2015 BMI 40.0-44.9, adult 10/14/2013 03/31/2014 Chest pain 09/13/2012 03/13/2016 Overview: Substernal pressure lasting ~5hrs, partially relieved with SLN. Significant risk factors for CAD (HTN, HLD, DM). EKG does to show ST changes. Initial CE at [facility] are supposedly negative. Prior stress test in 2010 was normal. DM well controlled. Currently low likelihood for ACS. - EKG - trend Donald - stress test vs [facility] S/P total knee replacement using cement 07/02/20 12 07/15/2018 Degenerative arthritis of right knee 06/10/2012 08/12/2014 Allergic contact dermatitis due to metals 201108/16/2020 Sensorineural hearing loss, bilateral 07/19/2011 08/16/2020 Diverticulosis 08/23/2010 03/13/2016 Thyroid CA 02/21/2010 08/12/2014 Overview: * Surgery (12/15/09): total thyroidectomy, Dr. Jamey Ibrahim, [facility] * Path (10/29/09): FNA Atypical cells present in a background of cyst contents, suspicious for papillary thyroid carcinoma (12/15/09): single well-circumscribed nodule in the right inferior lobe, which measured 3.5 cm in greatest dimension. The nodule was extensively hemorrhagic and cystic with a rim of viable material which ranges in appearance from papillary architecture to follicular structures. There is no evidence of a higher grade component. There is no definitive lymphovascular space invasion identified. In some areas, the tumor cells have oncocytic cytoplasm, however, the cells do not meet criteria for tall-cell variant of papillary thyroid carcinoma. * SIDDIQI (02/17/10): Rx 131-Iodine 102.4 mCi, Thyrogen-stim * Scan (02/24/10): post-treatment scan (Thyrogen-stim) shows uptake in left neck, also in liver area. SPECT images show one focus of uptake in lateral segment of the left lobe of the liver, one in the medial segment of the left lobe of liver, and one in the posterior segment of the right lobe of the liver. (05/03/11): Thyrogen stim 123-Iodine scan negative * Thyroglobulin Component Thyroglobulin TG Antibody Screen Stimulation Latest Ref Rng 0.8 - 49.0 ng/mL <14.4 IU/mL 11/05/2009 75.7 (H) 1.0 01/18/2010 <0.2 (L) 1.1 02/16/2010 0.3 (L) 1.0 Thyrogen 07/05/2010 <0.2 (L) 1.3 12/27/2010 <0.2 (L) 1.3 05/08/2011 <0.2 (L) 1.1 Thyrogen 07/24/2011 <0.2 (L) 1.5 01/23/2012 <0.2 (L) 1.0 07/27/2012 <0.2 (L) <1.0 02/18/2013 <0.2 (L) <1.0 08/12/2013 <0.2 (L) <1.0 * mRNA (11/03/09): TSH-R mRNA=1.7 ng/ug (11/30/09): TSH-R mRNA=1.8 ng/ug (01/18/10): no TSH-R mRNA assay postop (07/05/10): TSH-R mRNA <1.0 ng/ug (12/27/10): TSH-R mRNA <1.0 ng/ug * Ultrasound (01/18/10): no suspicious adenopathy along great vessels or in lateral neck on either side. No masses in thyroid bed. (12/27/10): no suspicious adenopathy along great vessels or in lateral neck on either side. No masses in thyroid bed. (01/24/12): no suspicious adenopathy along great vessels or in lateral neck on either side. No masses in thyroid bed. (08/11/13): no suspicious adenopathy along great vessels or in lateral neck on either side. No masses in thyroid bed. Thyroid nodule 10/20/2009 03/02/2010 Incisional hernia without mention of obstruction or gangrene 09/12/2005 08/12/2014 Symptomatic menopausal or female climacteric sta aniceto 04/07/2003 10/15/2017 Diabetes mellitus type 2 03/02/2003 014 Overview: *Type (): dx type 2 diabetes *Control hx Component Hemoglobin A1C Latest Ref Rng 4.0 - 6.0 % 01/17/2011 6.8 05/08/2011 7.2 07/24/2011 6.8 01/23/2012 6.7 07/27/2012 6.1 (H) 02/18/2013 6.4 (H) 08/08/2013 7.0 (H) 10/13/2013 7.1 (H) 02/17/14 7.3 * Eye hx (10/2008): no DM changes per Dr. Campoverde (07/2013): no DM changes per pt, exam Dr. Campoverde * Renal hx Component Albumin/Creat Ratio Latest Ref Rng 0 - 30 mg/g 04/03/2005 8 05/03/2006 8 03/26/2008 13 01/22/2009 18 02/16/2010 10 07/05/2010 9 05/08/2011 13 08/08/2013 9 * Vascular hx (11/12/13): no hx [place], stroke, Component Latest Ref Rng 02/18/2013 08/12/2013 10/13/2013 Triglyceride 30 - 149 mg/dL 114 123 126 Cholesterol 100 - 199 mg/dL 196 192 187 HDL Cholesterol >55 mg/dL 47 (L) 58 52 (L) VLDL Cholesterol 6 - 40 mg/dL 23 25 25 LDL Cholesterol 60 - 129 mg/dL 126 109 110 Fasting Time FASTING FASTING fasting TC:HDL Ratio 1.00 - 5.00 4.17 3.31 3.60 LDL:HDL Ratio 0.50 - 3.55 2.68 1.88 2.12 Non HDL Cholesterol 90 - 159 mg/dL 149 134 135 * Sleep (11/12/13): has obstructive sleep apnea, uses BiPAP since titration 04/07/13 * Exercise (11/12/13): not exercisnig * Medications (11/12/13): Victoza 1.8 mg daily, metformin 500 mg 2-1-1, * Physician (11/12/13): primary physician is Hayley Malone Morbid obesity 03/02/2003 07/15/2014 HYPERLIPIDEMIA NEC/NOS 5 documented as of this encounter (statuses as of 02/23/2023) [facility]11[facility]2020 History of Past illness Narrative* Problem Noted Date Resolved Date Postoperative abdominal pain 07/12/202011/2020 Mild protein-calorie malnutrition 06/28/2020 06/29/2020 Infected prosthetic mesh of abdominal wall 06/2006/30/2020 Obesity, Class II, BMI 35-39.9 06/13/2019 1 10/17/2019 SBO (small bowel obstruction) 06/07/2019 Morbid obesity 03/10/2019 06/13/2019 Abnormal cardiovascular stress test 09/11/2017 10/15/2017 Primary osteoarthritis of right hip 11/27/2016 08/18/2020 Trochanteric bursitis of right hip 11/27/2016 08/18/2020 Dyspnea, unspecified 03/08/2016 08/16/2020 Angiomyolipoma of right kidney 01/11/2016 1 Essential hypertension with goal blood pressure less than 140/90 12/13/2015 04/12/2017 Obstructive sleep apnea syndrome 12/13/2015 04/12/2017 Superficial skin infection 08/31/201503/13 CKD stage 3 due to type 2 diabetes mellitus 01/1011/16/2018 Overview: Dr. Lilian Vance, nephrology BMI 45.0-49.9, adult 02/06/2015 12/01/2019 Venous insufficiency 02/06/2015 04/12/2017 DM type 2 causing CKD stage 3 09/21/2014 Overview: Dr Landen Best, endocrinology Degenerative arthritis of hip 07/01/2014 BMI 45.0-49.9, adult 03/31/2014 10/13/2014 Diabetes mellitus type II, uncontrolled 11/26/19 14 02/06/2015 BMI 40.0-44.9, adult 10/14/2013 03/31/2014 Chest pain 09/13/2012 03/13/2016 Overview: Substernal pressure lasting ~5hrs, partially relieved with SLN. Significant risk factors for CAD (HTN, HLD, DM). EKG does to show ST changes. Initial CE at [facility] are supposedly negative. Prior stress test in 2010 was normal. DM well controlled. Currently low likelihood for ACS. - EKG - trend Donald - stress test vs [facility] S/P total knee replacement using cement 07/02/20 12 07/15/2018 Degenerative arthritis of right knee 06/10/2012 08/12/2014 Allergic contact dermatitis due to metals 201108/16/2020 Sensorineural hearing loss, bilateral 07/19/2011 08/16/2020 Diverticulosis 08/23/2010 03/13/2016 Thyroid CA 02/21/2010 08/12/2014 Overview: * Surgery (12/15/09): total thyroidectomy, Dr. Jamey Ibrahim, [facility] * Path (10/29/09): FNA Atypical cells present in a background of cyst contents, suspicious for papillary thyroid carcinoma (12/15/09): single well-circumscribed nodule in the right inferior lobe, which measured 3.5 cm in greatest dimension. The nodule was extensively hemorrhagic and cystic with a rim of viable material which ranges in appearance from papillary architecture to follicular structures. There is no evidence of a higher grade component. There is no definitive lymphovascular space invasion identified. In some areas, the tumor cells have oncocytic cytoplasm, however, the cells do not meet criteria for tall-cell variant of papillary thyroid carcinoma. * SIDDIQI (02/17/10): Rx 131-Iodine 102.4 mCi, Thyrogen-stim * Scan (02/24/10): post-treatment scan (Thyrogen-stim) shows uptake in left neck, also in liver area. SPECT images show one focus of uptake in lateral segment of the left lobe of the liver, one in the medial segment of the left lobe of liver, and one in the posterior segment of the right lobe of the liver. (05/03/11): Thyrogen stim 123-Iodine scan negative * Thyroglobulin Component Thyroglobulin TG Antibody Screen Stimulation Latest Ref Rng 0.8 - 49.0 ng/mL <14.4 IU/mL 11/05/2009 75.7 (H) 1.0 01/18/2010 <0.2 (L) 1.1 02/16/2010 0.3 (L) 1.0 Thyrogen 07/05/2010 <0.2 (L) 1.3 12/27/2010 <0.2 (L) 1.3 05/08/2011 <0.2 (L) 1.1 Thyrogen 07/24/2011 <0.2 (L) 1.5 01/23/2012 <0.2 (L) 1.0 07/27/2012 <0.2 (L) <1.0 02/18/2013 <0.2 (L) <1.0 08/12/2013 <0.2 (L) <1.0 * mRNA (11/03/09): TSH-R mRNA=1.7 ng/ug (11/30/09): TSH-R mRNA=1.8 ng/ug (01/18/10): no TSH-R mRNA assay postop (07/05/10): TSH-R mRNA <1.0 ng/ug (12/27/10): TSH-R mRNA <1.0 ng/ug * Ultrasound (01/18/10): no suspicious adenopathy along great vessels or in lateral neck on either side. No masses in thyroid bed. (12/27/10): no suspicious adenopathy along great vessels or in lateral neck on either side. No masses in thyroid bed. (01/24/12): no suspicious adenopathy along great vessels or in lateral neck on either side. No masses in thyroid bed. (08/11/13): no suspicious adenopathy along great vessels or in lateral neck on either side. No masses in thyroid bed. Thyroid nodule 10/20/2009 03/02/2010 Incisional hernia without mention of obstruction or gangrene 09/12/2005 08/12/2014 Symptomatic menopausal or female climacteric sta aniceto 04/07/2003 10/15/2017 Diabetes mellitus type 2 03/02/2003 014 Overview: *Type (): dx type 2 diabetes *Control hx Component Hemoglobin A1C Latest Ref Rng 4.0 - 6.0 % 01/17/2011 6.8 05/08/2011 7.2 07/24/2011 6.8 01/23/2012 6.7 07/27/2012 6.1 (H) 02/18/2013 6.4 (H) 08/08/2013 7.0 (H) 10/13/2013 7.1 (H) 02/17/14 7.3 * Eye hx (10/2008): no DM changes per Dr. Campoverde (07/2013): no DM changes per pt, exam Dr. Campoverde * Renal hx Component Albumin/Creat Ratio Latest Ref Rng 0 - 30 mg/g 04/03/2005 8 05/03/2006 8 03/26/2008 13 01/22/2009 18 02/16/2010 10 07/05/2010 9 05/08/2011 13 08/08/2013 9 * Vascular hx (11/12/13): no hx [place], stroke, Component Latest Ref Rng 02/18/2013 08/12/2013 10/13/2013 Triglyceride 30 - 149 mg/dL 114 123 126 Cholesterol 100 - 199 mg/dL 196 192 187 HDL Cholesterol >55 mg/dL 47 (L) 58 52 (L) VLDL Cholesterol 6 - 40 mg/dL 23 25 25 LDL Cholesterol 60 - 129 mg/dL 126 109 110 Fasting Time FASTING FASTING fasting TC:HDL Ratio 1.00 - 5.00 4.17 3.31 3.60 LDL:HDL Ratio 0.50 - 3.55 2.68 1.88 2.12 Non HDL Cholesterol 90 - 159 mg/dL 149 134 135 * Sleep (11/12/13): has obstructive sleep apnea, uses BiPAP since titration 04/07/13 * Exercise (11/12/13): not exercisnig * Medications (11/12/13): Victoza 1.8 mg daily, metformin 500 mg 2-1-1, * Physician (11/12/13): primary physician is Hayley Malone Morbid obesity 03/02/2003 07/15/2014 HYPERLIPIDEMIA NEC/NOS 5 documented as of this encounter (statuses as of 02/28/2023) [facility] History of Past illness Narrative* Problem Noted Date Resolved Date Postoperative abdominal pain 07/12/202011/2020 Mild protein-calorie malnutrition 06/28/2020 06/29/2020 Infected prosthetic mesh of abdominal wall 06/2006/30/2020 Obesity, Class II, BMI 35-39.9 06/13/2019 1 10/17/2019 SBO (small bowel obstruction) 06/07/2019 Morbid obesity 03/10/2019 06/13/2019 Abnormal cardiovascular stress test 09/11/2017 10/15/2017 Primary osteoarthritis of right hip 11/27/2016 08/18/2020 Trochanteric bursitis of right hip 11/27/2016 08/18/2020 Dyspnea, unspecified 03/08/2016 08/16/2020 Angiomyolipoma of right kidney 01/11/2016 1 Essential hypertension with goal blood pressure less than 140/90 12/13/2015 04/12/2017 Obstructive sleep apnea syndrome 12/13/2015 04/12/2017 Superficial skin infection 08/31/201503/13 CKD stage 3 due to type 2 diabetes mellitus 01/1011/16/2018 Overview: Dr. Lilian Vance, nephrology BMI 45.0-49.9, adult 02/06/2015 12/01/2019 Venous insufficiency 02/06/2015 04/12/2017 DM type 2 causing CKD stage 3 09/21/2014 Overview: Dr Landen Best, endocrinology Degenerative arthritis of hip 07/01/2014 BMI 45.0-49.9, adult 03/31/2014 10/13/2014 Diabetes mellitus type II, uncontrolled 11/26/19 14 02/06/2015 BMI 40.0-44.9, adult 10/14/2013 03/31/2014 Chest pain 09/13/2012 03/13/2016 Overview: Substernal pressure lasting ~5hrs, partially relieved with SLN. Significant risk factors for CAD (HTN, HLD, DM). EKG does to show ST changes. Initial CE at [facility] are supposedly negative. Prior stress test in 2010 was normal. DM well controlled. Currently low likelihood for ACS. - EKG - trend Donald - stress test vs [facility] S/P total knee replacement using cement 07/02/20 12 07/15/2018 Degenerative arthritis of right knee 06/10/2012 08/12/2014 Allergic contact dermatitis due to metals 201108/16/2020 Sensorineural hearing loss, bilateral 07/19/2011 08/16/2020 Diverticulosis 08/23/2010 03/13/2016 Thyroid CA 02/21/2010 08/12/2014 Overview: * Surgery (12/15/09): total thyroidectomy, Dr. Jamey Ibrahim, [facility] * Path (10/29/09): FNA Atypical cells present in a background of cyst contents, suspicious for papillary thyroid carcinoma (12/15/09): single well-circumscribed nodule in the right inferior lobe, which measured 3.5 cm in greatest dimension. The nodule was extensively hemorrhagic and cystic with a rim of viable material which ranges in appearance from papillary architecture to follicular structures. There is no evidence of a higher grade component. There is no definitive lymphovascular space invasion identified. In some areas, the tumor cells have oncocytic cytoplasm, however, the cells do not meet criteria for tall-cell variant of papillary thyroid carcinoma. * SIDDIQI (02/17/10): Rx 131-Iodine 102.4 mCi, Thyrogen-stim * Scan (02/24/10): post-treatment scan (Thyrogen-stim) shows uptake in left neck, also in liver area. SPECT images show one focus of uptake in lateral segment of the left lobe of the liver, one in the medial segment of the left lobe of liver, and one in the posterior segment of the right lobe of the liver. (05/03/11): Thyrogen stim 123-Iodine scan negative * Thyroglobulin Component Thyroglobulin TG Antibody Screen Stimulation Latest Ref Rng 0.8 - 49.0 ng/mL <14.4 IU/mL 11/05/2009 75.7 (H) 1.0 01/18/2010 <0.2 (L) 1.1 02/16/2010 0.3 (L) 1.0 Thyrogen 07/05/2010 <0.2 (L) 1.3 12/27/2010 <0.2 (L) 1.3 05/08/2011 <0.2 (L) 1.1 Thyrogen 07/24/2011 <0.2 (L) 1.5 01/23/2012 <0.2 (L) 1.0 07/27/2012 <0.2 (L) <1.0 02/18/2013 <0.2 (L) <1.0 08/12/2013 <0.2 (L) <1.0 * mRNA (11/03/09): TSH-R mRNA=1.7 ng/ug (11/30/09): TSH-R mRNA=1.8 ng/ug (01/18/10): no TSH-R mRNA assay postop (07/05/10): TSH-R mRNA <1.0 ng/ug (12/27/10): TSH-R mRNA <1.0 ng/ug * Ultrasound (01/18/10): no suspicious adenopathy along great vessels or in lateral neck on either side. No masses in thyroid bed. (12/27/10): no suspicious adenopathy along great vessels or in lateral neck on either side. No masses in thyroid bed. (01/24/12): no suspicious adenopathy along great vessels or in lateral neck on either side. No masses in thyroid bed. (08/11/13): no suspicious adenopathy along great vessels or in lateral neck on either side. No masses in thyroid bed. Thyroid nodule 10/20/2009 03/02/2010 Incisional hernia without mention of obstruction or gangrene 09/12/2005 08/12/2014 Symptomatic menopausal or female climacteric sta aniceto 04/07/2003 10/15/2017 Diabetes mellitus type 2 03/02/2003 014 Overview: *Type (): dx type 2 diabetes *Control hx Component Hemoglobin A1C Latest Ref Rng 4.0 - 6.0 % 01/17/2011 6.8 05/08/2011 7.2 07/24/2011 6.8 01/23/2012 6.7 07/27/2012 6.1 (H) 02/18/2013 6.4 (H) 08/08/2013 7.0 (H) 10/13/2013 7.1 (H) 02/17/14 7.3 * Eye hx (10/2008): no DM changes per Dr. Campoverde (07/2013): no DM changes per pt, exam Dr. Campoverde * Renal hx Component Albumin/Creat Ratio Latest Ref Rng 0 - 30 mg/g 04/03/2005 8 05/03/2006 8 03/26/2008 13 01/22/2009 18 02/16/2010 10 07/05/2010 9 05/08/2011 13 08/08/2013 9 * Vascular hx (11/12/13): no hx [place], stroke, Component Latest Ref Rng 02/18/2013 08/12/2013 10/13/2013 Triglyceride 30 - 149 mg/dL 114 123 126 Cholesterol 100 - 199 mg/dL 196 192 187 HDL Cholesterol >55 mg/dL 47 (L) 58 52 (L) VLDL Cholesterol 6 - 40 mg/dL 23 25 25 LDL Cholesterol 60 - 129 mg/dL 126 109 110 Fasting Time FASTING FASTING fasting TC:HDL Ratio 1.00 - 5.00 4.17 3.31 3.60 LDL:HDL Ratio 0.50 - 3.55 2.68 1.88 2.12 Non HDL Cholesterol 90 - 159 mg/dL 149 134 135 * Sleep (11/12/13): has obstructive sleep apnea, uses BiPAP since titration 04/07/13 * Exercise (11/12/13): not exercisnig * Medications (11/12/13): Victoza 1.8 mg daily, metformin 500 mg 2-1-1, * Physician (11/12/13): primary physician is Hayley Malone Morbid obesity 03/02/2003 07/15/2014 HYPERLIPIDEMIA NEC/NOS 5 documented as of this encounter (statuses as of 02/28/2023) [facility]11-02-2020 History of Past illness Narrative* Problem Noted Date Resolved Date Postoperative abdominal pain 07/12/202011/2020 Mild protein-calorie malnutrition 06/28/2020 06/29/2020 Infected prosthetic mesh of abdominal wall 06/2006/30/2020 Obesity, Class II, BMI 35-39.9 06/13/2019 1 10/17/2019 SBO (small bowel obstruction) 06/07/2019 Morbid obesity 03/10/2019 06/13/2019 Abnormal cardiovascular stress test 09/11/2017 10/15/2017 Primary osteoarthritis of right hip 11/27/2016 08/18/2020 Trochanteric bursitis of right hip 11/27/2016 08/18/2020 Dyspnea, unspecified 03/08/2016 08/16/2020 Angiomyolipoma of right kidney 01/11/2016 1 Essential hypertension with goal blood pressure less than 140/90 12/13/2015 04/12/2017 Obstructive sleep apnea syndrome 12/13/2015 04/12/2017 Superficial skin infection 08/31/201503/13 CKD stage 3 due to type 2 diabetes mellitus 01/1011/16/2018 Overview: Dr. Lilian Vance, nephrology BMI 45.0-49.9, adult 02/06/2015 12/01/2019 Venous insufficiency 02/06/2015 04/12/2017 DM type 2 causing CKD stage 3 09/21/2014 Overview: Dr Landen Best, endocrinology Degenerative arthritis of hip 07/01/2014 BMI 45.0-49.9, adult 03/31/2014 10/13/2014 Diabetes mellitus type II, uncontrolled 11/26/19 14 02/06/2015 BMI 40.0-44.9, adult 10/14/2013 03/31/2014 Chest pain 09/13/2012 03/13/2016 Overview: Substernal pressure lasting ~5hrs, partially relieved with SLN. Significant risk factors for CAD (HTN, HLD, DM). EKG does to show ST changes. Initial CE at [facility] are supposedly negative. Prior stress test in 2010 was normal. DM well controlled. Currently low likelihood for ACS. - EKG - trend Donald - stress test vs [facility] S/P total knee replacement using cement 07/02/20 12 07/15/2018 Degenerative arthritis of right knee 06/10/2012 08/12/2014 Allergic contact dermatitis due to metals 201108/16/2020 Sensorineural hearing loss, bilateral 07/19/2011 08/16/2020 Diverticulosis 08/23/2010 03/13/2016 Thyroid CA 02/21/2010 08/12/2014 Overview: * Surgery (12/15/09): total thyroidectomy, Dr. Jamey Ibrahim, [facility] * Path (10/29/09): FNA Atypical cells present in a background of cyst contents, suspicious for papillary thyroid carcinoma (12/15/09): single well-circumscribed nodule in the right inferior lobe, which measured 3.5 cm in greatest dimension. The nodule was extensively hemorrhagic and cystic with a rim of viable material which ranges in appearance from papillary architecture to follicular structures. There is no evidence of a higher grade component. There is no definitive lymphovascular space invasion identified. In some areas, the tumor cells have oncocytic cytoplasm, however, the cells do not meet criteria for tall-cell variant of papillary thyroid carcinoma. * SIDDIQI (02/17/10): Rx 131-Iodine 102.4 mCi, Thyrogen-stim * Scan (02/24/10): post-treatment scan (Thyrogen-stim) shows uptake in left neck, also in liver area. SPECT images show one focus of uptake in lateral segment of the left lobe of the liver, one in the medial segment of the left lobe of liver, and one in the posterior segment of the right lobe of the liver. (05/03/11): Thyrogen stim 123-Iodine scan negative * Thyroglobulin Component Thyroglobulin TG Antibody Screen Stimulation Latest Ref Rng 0.8 - 49.0 ng/mL <14.4 IU/mL 11/05/2009 75.7 (H) 1.0 01/18/2010 <0.2 (L) 1.1 02/16/2010 0.3 (L) 1.0 Thyrogen 07/05/2010 <0.2 (L) 1.3 12/27/2010 <0.2 (L) 1.3 05/08/2011 <0.2 (L) 1.1 Thyrogen 07/24/2011 <0.2 (L) 1.5 01/23/2012 <0.2 (L) 1.0 07/27/2012 <0.2 (L) <1.0 02/18/2013 <0.2 (L) <1.0 08/12/2013 <0.2 (L) <1.0 * mRNA (11/03/09): TSH-R mRNA=1.7 ng/ug (11/30/09): TSH-R mRNA=1.8 ng/ug (01/18/10): no TSH-R mRNA assay postop (07/05/10): TSH-R mRNA <1.0 ng/ug (12/27/10): TSH-R mRNA <1.0 ng/ug * Ultrasound (01/18/10): no suspicious adenopathy along great vessels or in lateral neck on either side. No masses in thyroid bed. (12/27/10): no suspicious adenopathy along great vessels or in lateral neck on either side. No masses in thyroid bed. (01/24/12): no suspicious adenopathy along great vessels or in lateral neck on either side. No masses in thyroid bed. (08/11/13): no suspicious adenopathy along great vessels or in lateral neck on either side. No masses in thyroid bed. Thyroid nodule 10/20/2009 03/02/2010 Incisional hernia without mention of obstruction or gangrene 09/12/2005 08/12/2014 Symptomatic menopausal or female climacteric sta aniceto 04/07/2003 10/15/2017 Diabetes mellitus type 2 03/02/2003 014 Overview: *Type (): dx type 2 diabetes *Control hx Component Hemoglobin A1C Latest Ref Rng 4.0 - 6.0 % 01/17/2011 6.8 05/08/2011 7.2 07/24/2011 6.8 01/23/2012 6.7 07/27/2012 6.1 (H) 02/18/2013 6.4 (H) 08/08/2013 7.0 (H) 10/13/2013 7.1 (H) 02/17/14 7.3 * Eye hx (10/2008): no DM changes per Dr. Campoverde (07/2013): no DM changes per pt, exam Dr. Campoverde * Renal hx Component Albumin/Creat Ratio Latest Ref Rng 0 - 30 mg/g 04/03/2005 8 05/03/2006 8 03/26/2008 13 01/22/2009 18 02/16/2010 10 07/05/2010 9 05/08/2011 13 08/08/2013 9 * Vascular hx (11/12/13): no hx [place], stroke, Component Latest Ref Rng 02/18/2013 08/12/2013 10/13/2013 Triglyceride 30 - 149 mg/dL 114 123 126 Cholesterol 100 - 199 mg/dL 196 192 187 HDL Cholesterol >55 mg/dL 47 (L) 58 52 (L) VLDL Cholesterol 6 - 40 mg/dL 23 25 25 LDL Cholesterol 60 - 129 mg/dL 126 109 110 Fasting Time FASTING FASTING fasting TC:HDL Ratio 1.00 - 5.00 4.17 3.31 3.60 LDL:HDL Ratio 0.50 - 3.55 2.68 1.88 2.12 Non HDL Cholesterol 90 - 159 mg/dL 149 134 135 * Sleep (11/12/13): has obstructive sleep apnea, uses BiPAP since titration 04/07/13 * Exercise (11/12/13): not exercisnig * Medications (11/12/13): Victoza 1.8 mg daily, metformin 500 mg 2-1-1, * Physician (11/12/13): primary physician is Hayley Malone Morbid obesity 03/02/2003 07/15/2014 HYPERLIPIDEMIA NEC/NOS 5 documented as of this encounter (statuses as of 03/03/2023) [facility]11-[facility]-2020 History of Past illness Narrative* Problem Noted Date Resolved Date Postoperative abdominal pain 07/12/202011/2020 Mild protein-calorie malnutrition 06/28/2020 06/29/2020 Infected prosthetic mesh of abdominal wall 06/2006/30/2020 Obesity, Class II, BMI 35-39.9 06/13/2019 1 10/17/2019 SBO (small bowel obstruction) 06/07/2019 Morbid obesity 03/10/2019 06/13/2019 Abnormal cardiovascular stress test 09/11/2017 10/15/2017 Primary osteoarthritis of right hip 11/27/2016 08/18/2020 Trochanteric bursitis of right hip 11/27/2016 08/18/2020 Dyspnea, unspecified 03/08/2016 08/16/2020 Angiomyolipoma of right kidney 01/11/2016 1 Essential hypertension with goal blood pressure less than 140/90 12/13/2015 04/12/2017 Obstructive sleep apnea syndrome 12/13/2015 04/12/2017 Superficial skin infection 08/31/201503/13 CKD stage 3 due to type 2 diabetes mellitus 01/1011/16/2018 Overview: Dr. Lilian Vance, nephrology BMI 45.0-49.9, adult 02/06/2015 12/01/2019 Venous insufficiency 02/06/2015 04/12/2017 DM type 2 causing CKD stage 3 09/21/2014 Overview: Dr Landen Best, endocrinology Degenerative arthritis of hip 07/01/2014 BMI 45.0-49.9, adult 03/31/2014 10/13/2014 Diabetes mellitus type II, uncontrolled 11/26/19 14 02/06/2015 BMI 40.0-44.9, adult 10/14/2013 03/31/2014 Chest pain 09/13/2012 03/13/2016 Overview: Substernal pressure lasting ~5hrs, partially relieved with SLN. Significant risk factors for CAD (HTN, HLD, DM). EKG does to show ST changes. Initial CE at [facility] are supposedly negative. Prior stress test in 2010 was normal. DM well controlled. Currently low likelihood for ACS. - EKG - trend Donald - stress test vs [facility] S/P total knee replacement using cement 07/02/20 12 07/15/2018 Degenerative arthritis of right knee 06/10/2012 08/12/2014 Allergic contact dermatitis due to metals 201108/16/2020 Sensorineural hearing loss, bilateral 07/19/2011 08/16/2020 Diverticulosis 08/23/2010 03/13/2016 Thyroid CA 02/21/2010 08/12/2014 Overview: * Surgery (12/15/09): total thyroidectomy, Dr. Jamey Ibrahim, [facility] * Path (10/29/09): FNA Atypical cells present in a background of cyst contents, suspicious for papillary thyroid carcinoma (12/15/09): single well-circumscribed nodule in the right inferior lobe, which measured 3.5 cm in greatest dimension. The nodule was extensively hemorrhagic and cystic with a rim of viable material which ranges in appearance from papillary architecture to follicular structures. There is no evidence of a higher grade component. There is no definitive lymphovascular space invasion identified. In some areas, the tumor cells have oncocytic cytoplasm, however, the cells do not meet criteria for tall-cell variant of papillary thyroid carcinoma. * SIDDIQI (02/17/10): Rx 131-Iodine 102.4 mCi, Thyrogen-stim * Scan (02/24/10): post-treatment scan (Thyrogen-stim) shows uptake in left neck, also in liver area. SPECT images show one focus of uptake in lateral segment of the left lobe of the liver, one in the medial segment of the left lobe of liver, and one in the posterior segment of the right lobe of the liver. (05/03/11): Thyrogen stim 123-Iodine scan negative * Thyroglobulin Component Thyroglobulin TG Antibody Screen Stimulation Latest Ref Rng 0.8 - 49.0 ng/mL <14.4 IU/mL 11/05/2009 75.7 (H) 1.0 01/18/2010 <0.2 (L) 1.1 02/16/2010 0.3 (L) 1.0 Thyrogen 07/05/2010 <0.2 (L) 1.3 12/27/2010 <0.2 (L) 1.3 05/08/2011 <0.2 (L) 1.1 Thyrogen 07/24/2011 <0.2 (L) 1.5 01/23/2012 <0.2 (L) 1.0 07/27/2012 <0.2 (L) <1.0 02/18/2013 <0.2 (L) <1.0 08/12/2013 <0.2 (L) <1.0 * mRNA (11/03/09): TSH-R mRNA=1.7 ng/ug (11/30/09): TSH-R mRNA=1.8 ng/ug (01/18/10): no TSH-R mRNA assay postop (07/05/10): TSH-R mRNA <1.0 ng/ug (12/27/10): TSH-R mRNA <1.0 ng/ug * Ultrasound (01/18/10): no suspicious adenopathy along great vessels or in lateral neck on either side. No masses in thyroid bed. (12/27/10): no suspicious adenopathy along great vessels or in lateral neck on either side. No masses in thyroid bed. (01/24/12): no suspicious adenopathy along great vessels or in lateral neck on either side. No masses in thyroid bed. (08/11/13): no suspicious adenopathy along great vessels or in lateral neck on either side. No masses in thyroid bed. Thyroid nodule 10/20/2009 03/02/2010 Incisional hernia without mention of obstruction or gangrene 09/12/2005 08/12/2014 Symptomatic menopausal or female climacteric sta aniceto 04/07/2003 10/15/2017 Diabetes mellitus type 2 03/02/2003 014 Overview: *Type (): dx type 2 diabetes *Control hx Component Hemoglobin A1C Latest Ref Rng 4.0 - 6.0 % 01/17/2011 6.8 05/08/2011 7.2 07/24/2011 6.8 01/23/2012 6.7 07/27/2012 6.1 (H) 02/18/2013 6.4 (H) 08/08/2013 7.0 (H) 10/13/2013 7.1 (H) 02/17/14 7.3 * Eye hx (10/2008): no DM changes per Dr. Campoverde (07/2013): no DM changes per pt, exam Dr. Campoverde * Renal hx Component Albumin/Creat Ratio Latest Ref Rng 0 - 30 mg/g 04/03/2005 8 05/03/2006 8 03/26/2008 13 01/22/2009 18 02/16/2010 10 07/05/2010 9 05/08/2011 13 08/08/2013 9 * Vascular hx (11/12/13): no hx [place], stroke, Component Latest Ref Rng 02/18/2013 08/12/2013 10/13/2013 Triglyceride 30 - 149 mg/dL 114 123 126 Cholesterol 100 - 199 mg/dL 196 192 187 HDL Cholesterol >55 mg/dL 47 (L) 58 52 (L) VLDL Cholesterol 6 - 40 mg/dL 23 25 25 LDL Cholesterol 60 - 129 mg/dL 126 109 110 Fasting Time FASTING FASTING fasting TC:HDL Ratio 1.00 - 5.00 4.17 3.31 3.60 LDL:HDL Ratio 0.50 - 3.55 2.68 1.88 2.12 Non HDL Cholesterol 90 - 159 mg/dL 149 134 135 * Sleep (11/12/13): has obstructive sleep apnea, uses BiPAP since titration 04/07/13 * Exercise (11/12/13): not exercisnig * Medications (11/12/13): Victoza 1.8 mg daily, metformin 500 mg 2-1-1, * Physician (11/12/13): primary physician is Hayley Malone Morbid obesity 03/02/2003 07/15/2014 HYPERLIPIDEMIA NEC/NOS 5 documented as of this encounter (statuses as of 03/07/2023) [facility]11-[facility]2020 History of Past illness Narrative* Problem Noted Date Resolved Date Postoperative abdominal pain 07/12/202011/2020 Mild protein-calorie malnutrition 06/28/2020 06/29/2020 Infected prosthetic mesh of abdominal wall 06/2006/30/2020 Obesity, Class II, BMI 35-39.9 06/13/2019 1 10/17/2019 SBO (small bowel obstruction) 06/07/2019 Morbid obesity 03/10/2019 06/13/2019 Abnormal cardiovascular stress test 09/11/2017 10/15/2017 Primary osteoarthritis of right hip 11/27/2016 08/18/2020 Trochanteric bursitis of right hip 11/27/2016 08/18/2020 Dyspnea, unspecified 03/08/2016 08/16/2020 Angiomyolipoma of right kidney 01/11/2016 1 Essential hypertension with goal blood pressure less than 140/90 12/13/2015 04/12/2017 Obstructive sleep apnea syndrome 12/13/2015 04/12/2017 Superficial skin infection 08/31/201503/13 CKD stage 3 due to type 2 diabetes mellitus 01/1011/16/2018 Overview: Dr. Lilian Vance, nephrology BMI 45.0-49.9, adult 02/06/2015 12/01/2019 Venous insufficiency 02/06/2015 04/12/2017 DM type 2 causing CKD stage 3 09/21/2014 Overview: Dr Landen Best, endocrinology Degenerative arthritis of hip 07/01/2014 BMI 45.0-49.9, adult 03/31/2014 10/13/2014 Diabetes mellitus type II, uncontrolled 11/26/19 14 02/06/2015 BMI 40.0-44.9, adult 10/14/2013 03/31/2014 Chest pain 09/13/2012 03/13/2016 Overview: Substernal pressure lasting ~5hrs, partially relieved with SLN. Significant risk factors for CAD (HTN, HLD, DM). EKG does to show ST changes. Initial CE at [facility] are supposedly negative. Prior stress test in 2010 was normal. DM well controlled. Currently low likelihood for ACS. - EKG - trend Donald - stress test vs [facility] S/P total knee replacement using cement 07/02/20 12 07/15/2018 Degenerative arthritis of right knee 06/10/2012 08/12/2014 Allergic contact dermatitis due to metals 201108/16/2020 Sensorineural hearing loss, bilateral 07/19/2011 08/16/2020 Diverticulosis 08/23/2010 03/13/2016 Thyroid CA 02/21/2010 08/12/2014 Overview: * Surgery (12/15/09): total thyroidectomy, Dr. Jamey Ibrahim, [facility] * Path (10/29/09): FNA Atypical cells present in a background of cyst contents, suspicious for papillary thyroid carcinoma (12/15/09): single well-circumscribed nodule in the right inferior lobe, which measured 3.5 cm in greatest dimension. The nodule was extensively hemorrhagic and cystic with a rim of viable material which ranges in appearance from papillary architecture to follicular structures. There is no evidence of a higher grade component. There is no definitive lymphovascular space invasion identified. In some areas, the tumor cells have oncocytic cytoplasm, however, the cells do not meet criteria for tall-cell variant of papillary thyroid carcinoma. * SIDDIQI (02/17/10): Rx 131-Iodine 102.4 mCi, Thyrogen-stim * Scan (02/24/10): post-treatment scan (Thyrogen-stim) shows uptake in left neck, also in liver area. SPECT images show one focus of uptake in lateral segment of the left lobe of the liver, one in the medial segment of the left lobe of liver, and one in the posterior segment of the right lobe of the liver. (05/03/11): Thyrogen stim 123-Iodine scan negative * Thyroglobulin Component Thyroglobulin TG Antibody Screen Stimulation Latest Ref Rng 0.8 - 49.0 ng/mL <14.4 IU/mL 11/05/2009 75.7 (H) 1.0 01/18/2010 <0.2 (L) 1.1 02/16/2010 0.3 (L) 1.0 Thyrogen 07/05/2010 <0.2 (L) 1.3 12/27/2010 <0.2 (L) 1.3 05/08/2011 <0.2 (L) 1.1 Thyrogen 07/24/2011 <0.2 (L) 1.5 01/23/2012 <0.2 (L) 1.0 07/27/2012 <0.2 (L) <1.0 02/18/2013 <0.2 (L) <1.0 08/12/2013 <0.2 (L) <1.0 * mRNA (11/03/09): TSH-R mRNA=1.7 ng/ug (11/30/09): TSH-R mRNA=1.8 ng/ug (01/18/10): no TSH-R mRNA assay postop (07/05/10): TSH-R mRNA <1.0 ng/ug (12/27/10): TSH-R mRNA <1.0 ng/ug * Ultrasound (01/18/10): no suspicious adenopathy along great vessels or in lateral neck on either side. No masses in thyroid bed. (12/27/10): no suspicious adenopathy along great vessels or in lateral neck on either side. No masses in thyroid bed. (01/24/12): no suspicious adenopathy along great vessels or in lateral neck on either side. No masses in thyroid bed. (08/11/13): no suspicious adenopathy along great vessels or in lateral neck on either side. No masses in thyroid bed. Thyroid nodule 10/20/2009 03/02/2010 Incisional hernia without mention of obstruction or gangrene 09/12/2005 08/12/2014 Symptomatic menopausal or female climacteric sta aniceto 04/07/2003 10/15/2017 Diabetes mellitus type 2 03/02/2003 014 Overview: *Type (): dx type 2 diabetes *Control hx Component Hemoglobin A1C Latest Ref Rng 4.0 - 6.0 % 01/17/2011 6.8 05/08/2011 7.2 07/24/2011 6.8 01/23/2012 6.7 07/27/2012 6.1 (H) 02/18/2013 6.4 (H) 08/08/2013 7.0 (H) 10/13/2013 7.1 (H) 02/17/14 7.3 * Eye hx (10/2008): no DM changes per Dr. Campoverde (07/2013): no DM changes per pt, exam Dr. Campoverde * Renal hx Component Albumin/Creat Ratio Latest Ref Rng 0 - 30 mg/g 04/03/2005 8 05/03/2006 8 03/26/2008 13 01/22/2009 18 02/16/2010 10 07/05/2010 9 05/08/2011 13 08/08/2013 9 * Vascular hx (11/12/13): no hx [place], stroke, Component Latest Ref Rng 02/18/2013 08/12/2013 10/13/2013 Triglyceride 30 - 149 mg/dL 114 123 126 Cholesterol 100 - 199 mg/dL 196 192 187 HDL Cholesterol >55 mg/dL 47 (L) 58 52 (L) VLDL Cholesterol 6 - 40 mg/dL 23 25 25 LDL Cholesterol 60 - 129 mg/dL 126 109 110 Fasting Time FASTING FASTING fasting TC:HDL Ratio 1.00 - 5.00 4.17 3.31 3.60 LDL:HDL Ratio 0.50 - 3.55 2.68 1.88 2.12 Non HDL Cholesterol 90 - 159 mg/dL 149 134 135 * Sleep (11/12/13): has obstructive sleep apnea, uses BiPAP since titration 04/07/13 * Exercise (11/12/13): not exercisnig * Medications (11/12/13): Victoza 1.8 mg daily, metformin 500 mg 2-1-1, * Physician (11/12/13): primary physician is Hayley Malone Morbid obesity 03/02/2003 07/15/2014 HYPERLIPIDEMIA NEC/NOS 5 documented as of this encounter (statuses as of 03/12/2023) [facility] History of Past illness Narrative* Problem Noted Date Diagnosed Date Resolved Date Postoperative abdominal pain 07/12/2020 10/13/2020 Mild protein-calorie malnutrition 06/28/2020 06/29/2020 Infected prosthetic mesh of abdominal wall 06/20/2020 06/30/2020 Obesity, Class II, BMI 35-39.9 06/13/2019 08/16/2020 SBO (small bowel obstruction) 06/07/2019 08/16/2020 Morbid obesity 03/10/2019 06/13/2019 Abnormal cardiovascular stress test 09/11/2017 10/15/2017 Primary osteoarthritis of right hip 11/27/2016 08/18/2020 Trochanteric bursitis of right hip 11/27/2016 08/18/2020 Dyspnea, unspecified 03/08/2016 020 Angiomyolipoma of right kidney 01/11/2016 06/15/2016 Essential hypertension with goal blood pressure less than 140/90 12/13/2015 04/12/2017 Obstructive sleep apnea syndrome 12/13/2015 04/12/2017 Superficial skin infection 08/31/2015 0 03/13/2016 CKD stage 3 due to type 2 diabetes mellitus 02/06/2015 11/16/2018 Overview: Dr. Lilian Vance, nephrology BMI 45.0-49.9, adult 02/06/2015 020 Venous insufficiency 02/06/2015 017 DM type 2 causing CKD stage 3 09/21/2014 03/05/2019 Overview: Dr Landen Best, endocrinology Degenerative arthritis of hip 07/01/2014 08/16/2020 BMI 45.0-49.9, adult 03/31/2014 015 Diabetes mellitus type II, uncontrolled 11/25/2013 02/06/2015 BMI 40.0-44.9, adult 10/14/2013 014 Chest pain 09/13/2012 03/13/2016 Overview: Substernal pressure lasting ~5hrs, partially relieved with SLN. Significant risk factors for CAD (HTN, HLD, DM). EKG does to show ST changes. Initial CE at [facility] are supposedly negative. Prior stress test in 2010 was normal. DM well controlled. Currently low likelihood for ACS. - EKG - trend Donald - stress test vs [facility] S/P total knee replacement using cement 07/02/2012 07/15/2018 Degenerative arthritis of right knee 06/10/2012 08/12/2014 Allergic contact dermatitis due to metals 05/21/2012 08/16/2020 Sensorineural hearing loss, bilateral 07/19/2011 08/16/2020 Diverticulosis 08/23/2010 03/13/2016 Thyroid CA 02/21/2010 08/12/2014 Overview: * Surgery (12/15/09): total thyroidectomy, Dr. Jamey Ibrahim, [facility] * Path (10/29/09): FNA Atypical cells present in a background of cyst contents, suspicious for papillary thyroid carcinoma (12/15/09): single well-circumscribed nodule in the right inferior lobe, which measured 3.5 cm in greatest dimension. The nodule was extensively hemorrhagic and cystic with a rim of viable material which ranges in appearance from papillary architecture to follicular structures. There is no evidence of a higher grade component. There is no definitive lymphovascular space invasion identified. In some areas, the tumor cells have oncocytic cytoplasm, however, the cells do not meet criteria for tall-cell variant of papillary thyroid carcinoma. * SIDDIQI (02/17/10): Rx 131-Iodine 102.4 mCi, Thyrogen-stim * Scan (02/24/10): post-treatment scan (Thyrogen-stim) shows uptake in left neck, also in liver area. SPECT images show one focus of uptake in lateral segment of the left lobe of the liver, one in the medial segment of the left lobe of liver, and one in the posterior segment of the right lobe of the liver. (05/03/11): Thyrogen stim 123-Iodine scan negative * Thyroglobulin Component Thyroglobulin TG Antibody Screen Stimulation Latest Ref Rng 0.8 - 49.0 ng/mL <14.4 IU/mL 11/05/2009 75.7 (H) 1.0 01/18/2010 <0.2 (L) 1.1 02/16/2010 0.3 (L) 1.0 Thyrogen 07/05/2010 <0.2 (L) 1.3 12/27/2010 <0.2 (L) 1.3 05/08/2011 <0.2 (L) 1.1 Thyrogen 07/24/2011 <0.2 (L) 1.5 01/23/2012 <0.2 (L) 1.0 07/27/2012 <0.2 (L) <1.0 02/18/2013 <0.2 (L) <1.0 08/12/2013 <0.2 (L) <1.0 * mRNA (11/03/09): TSH-R mRNA=1.7 ng/ug (11/30/09): TSH-R mRNA=1.8 ng/ug (01/18/10): no TSH-R mRNA assay postop (07/05/10): TSH-R mRNA <1.0 ng/ug (12/27/10): TSH-R mRNA <1.0 ng/ug * Ultrasound (01/18/10): no suspicious adenopathy along great vessels or in lateral neck on either side. No masses in thyroid bed. (12/27/10): no suspicious adenopathy along great vessels or in lateral neck on either side. No masses in thyroid bed. (01/24/12): no suspicious adenopathy along great vessels or in lateral neck on either side. No masses in thyroid bed. (08/11/13): no suspicious adenopathy along great vessels or in lateral neck on either side. No masses in thyroid bed. Thyroid nodule 10/20/2009 03/02/2010 Incisional hernia without me ntion of obstruction or gangrene 09/12/2005 08/12/2014 Symptomatic menopausal or fe male climacteric states 04/07/2003 10/15/2017 Diabetes mellitus type 2 03/02/200301/2014 Overview: *Type (): dx type 2 diabetes *Control hx Component Hemoglobin A1C Latest Ref Rng 4.0 - 6.0 % 01/17/2011 6.8 05/08/2011 7.2 07/24/2011 6.8 01/23/2012 6.7 07/27/2012 6.1 (H) 02/18/2013 6.4 (H) 08/08/2013 7.0 (H) 10/13/2013 7.1 (H) 02/17/14 7.3 * Eye hx (10/2008): no DM changes per Dr. Campoverde (07/2013): no DM changes per pt, exam Dr. Campoverde * Renal hx Component Albumin/Creat Ratio Latest Ref Rng 0 - 30 mg/g 04/03/2005 8 05/03/2006 8 03/26/2008 13 01/22/2009 18 02/16/2010 10 07/05/2010 9 05/08/2011 13 08/08/2013 9 * Vascular hx (11/12/13): no hx [place], stroke, Component Latest Ref Rng 02/18/2013 08/12/2013 10/13/2013 Triglyceride 30 - 149 mg/dL 114 123 126 Cholesterol 100 - 199 mg/dL 196 192 187 HDL Cholesterol >55 mg/dL 47 (L) 58 52 (L) VLDL Cholesterol 6 - 40 mg/dL 23 25 25 LDL Cholesterol 60 - 129 mg/dL 126 109 110 Fasting Time FASTING FASTING fasting TC:HDL Ratio 1.00 - 5.00 4.17 3.31 3.60 LDL:HDL Ratio 0.50 - 3.55 2.68 1.88 2.12 Non HDL Cholesterol 90 - 159 mg/dL 149 134 135 * Sleep (11/12/13): has obstructive sleep apnea, uses BiPAP since titration 04/07/13 * Exercise (11/12/13): not exercisnig * Medications (11/12/13): Victoza 1.8 mg daily, metformin 500 mg 2-1-1, * Physician (11/12/13): primary physician is Hayley Malone Morbid obesity 03/02/2003 07/15/2014 HYPERLIPIDEMIA NEC/NOS 06/10 documented as of this encounter (statuses as of 04/04/2023) [facility]11-02-2020 History of Past illness Narrative* Problem Noted Date Diagnosed Date Resolved Date Postoperative abdominal pain 07/12/2020 10/13/2020 Mild protein-calorie malnutrition 06/28/2020 06/29/2020 Infected prosthetic mesh of abdominal wall 06/20/2020 06/30/2020 Obesity, Class II, BMI 35-39.9 06/13/2019 08/16/2020 SBO (small bowel obstruction) 06/07/2019 08/16/2020 Morbid obesity 03/10/2019 06/13/2019 Abnormal cardiovascular stress test 09/11/2017 10/15/2017 Primary osteoarthritis of right hip 11/27/2016 08/18/2020 Trochanteric bursitis of right hip 11/27/2016 08/18/2020 Dyspnea, unspecified 03/08/2016 020 Angiomyolipoma of right kidney 01/11/2016 06/15/2016 Essential hypertension with goal blood pressure less than 140/90 12/13/2015 04/12/2017 Obstructive sleep apnea syndrome 12/13/2015 04/12/2017 Superficial skin infection 08/31/2015 0 03/13/2016 CKD stage 3 due to type 2 diabetes mellitus 02/06/2015 11/16/2018 Overview: Dr. Lilian Vance, nephrology BMI 45.0-49.9, adult 02/06/2015 020 Venous insufficiency 02/06/2015 017 DM type 2 causing CKD stage 3 09/21/2014 03/05/2019 Overview: Dr Landen Best, endocrinology Degenerative arthritis of hip 07/01/2014 08/16/2020 BMI 45.0-49.9, adult 03/31/2014 015 Diabetes mellitus type II, uncontrolled 11/25/2013 02/06/2015 BMI 40.0-44.9, adult 10/14/2013 014 Chest pain 09/13/2012 03/13/2016 Overview: Substernal pressure lasting ~5hrs, partially relieved with SLN. Significant risk factors for CAD (HTN, HLD, DM). EKG does to show ST changes. Initial CE at [facility] are supposedly negative. Prior stress test in 2010 was normal. DM well controlled. Currently low likelihood for ACS. - EKG - trend Donald - stress test vs [facility] S/P total knee replacement using cement 07/02/2012 07/15/2018 Degenerative arthritis of right knee 06/10/2012 08/12/2014 Allergic contact dermatitis due to metals 05/21/2012 08/16/2020 Sensorineural hearing loss, bilateral 07/19/2011 08/16/2020 Diverticulosis 08/23/2010 03/13/2016 Thyroid CA 02/21/2010 08/12/2014 Overview: * Surgery (12/15/09): total thyroidectomy, Dr. Jamey Ibrahim, [facility] * Path (10/29/09): FNA Atypical cells present in a background of cyst contents, suspicious for papillary thyroid carcinoma (12/15/09): single well-circumscribed nodule in the right inferior lobe, which measured 3.5 cm in greatest dimension. The nodule was extensively hemorrhagic and cystic with a rim of viable material which ranges in appearance from papillary architecture to follicular structures. There is no evidence of a higher grade component. There is no definitive lymphovascular space invasion identified. In some areas, the tumor cells have oncocytic cytoplasm, however, the cells do not meet criteria for tall-cell variant of papillary thyroid carcinoma. * SIDDIQI (02/17/10): Rx 131-Iodine 102.4 mCi, Thyrogen-stim * Scan (02/24/10): post-treatment scan (Thyrogen-stim) shows uptake in left neck, also in liver area. SPECT images show one focus of uptake in lateral segment of the left lobe of the liver, one in the medial segment of the left lobe of liver, and one in the posterior segment of the right lobe of the liver. (05/03/11): Thyrogen stim 123-Iodine scan negative * Thyroglobulin Component Thyroglobulin TG Antibody Screen Stimulation Latest Ref Rng 0.8 - 49.0 ng/mL <14.4 IU/mL 11/05/2009 75.7 (H) 1.0 01/18/2010 <0.2 (L) 1.1 02/16/2010 0.3 (L) 1.0 Thyrogen 07/05/2010 <0.2 (L) 1.3 12/27/2010 <0.2 (L) 1.3 05/08/2011 <0.2 (L) 1.1 Thyrogen 07/24/2011 <0.2 (L) 1.5 01/23/2012 <0.2 (L) 1.0 07/27/2012 <0.2 (L) <1.0 02/18/2013 <0.2 (L) <1.0 08/12/2013 <0.2 (L) <1.0 * mRNA (11/03/09): TSH-R mRNA=1.7 ng/ug (11/30/09): TSH-R mRNA=1.8 ng/ug (01/18/10): no TSH-R mRNA assay postop (07/05/10): TSH-R mRNA <1.0 ng/ug (12/27/10): TSH-R mRNA <1.0 ng/ug * Ultrasound (01/18/10): no suspicious adenopathy along great vessels or in lateral neck on either side. No masses in thyroid bed. (12/27/10): no suspicious adenopathy along great vessels or in lateral neck on either side. No masses in thyroid bed. (01/24/12): no suspicious adenopathy along great vessels or in lateral neck on either side. No masses in thyroid bed. (08/11/13): no suspicious adenopathy along great vessels or in lateral neck on either side. No masses in thyroid bed. Thyroid nodule 10/20/2009 03/02/2010 Incisional hernia without me ntion of obstruction or gangrene 09/12/2005 08/12/2014 Symptomatic menopausal or fe male climacteric states 04/07/2003 10/15/2017 Diabetes mellitus type 2 03/02/200301/2014 Overview: *Type (): dx type 2 diabetes *Control hx Component Hemoglobin A1C Latest Ref Rng 4.0 - 6.0 % 01/17/2011 6.8 05/08/2011 7.2 07/24/2011 6.8 01/23/2012 6.7 07/27/2012 6.1 (H) 02/18/2013 6.4 (H) 08/08/2013 7.0 (H) 10/13/2013 7.1 (H) 02/17/14 7.3 * Eye hx (10/2008): no DM changes per Dr. Campoverde (07/2013): no DM changes per pt, exam Dr. Campoverde * Renal hx Component Albumin/Creat Ratio Latest Ref Rng 0 - 30 mg/g 04/03/2005 8 05/03/2006 8 03/26/2008 13 01/22/2009 18 02/16/2010 10 07/05/2010 9 05/08/2011 13 08/08/2013 9 * Vascular hx (11/12/13): no hx [place], stroke, Component Latest Ref Rng 02/18/2013 08/12/2013 10/13/2013 Triglyceride 30 - 149 mg/dL 114 123 126 Cholesterol 100 - 199 mg/dL 196 192 187 HDL Cholesterol >55 mg/dL 47 (L) 58 52 (L) VLDL Cholesterol 6 - 40 mg/dL 23 25 25 LDL Cholesterol 60 - 129 mg/dL 126 109 110 Fasting Time FASTING FASTING fasting TC:HDL Ratio 1.00 - 5.00 4.17 3.31 3.60 LDL:HDL Ratio 0.50 - 3.55 2.68 1.88 2.12 Non HDL Cholesterol 90 - 159 mg/dL 149 134 135 * Sleep (11/12/13): has obstructive sleep apnea, uses BiPAP since titration 04/07/13 * Exercise (11/12/13): not exercisnig * Medications (11/12/13): Victoza 1.8 mg daily, metformin 500 mg 2-1-1, * Physician (11/12/13): primary physician is Hayley Malone Morbid obesity 03/02/2003 07/15/2014 HYPERLIPIDEMIA NEC/NOS 06/10 documented as of this encounter (statuses as of 04/05/2023) [facility]11-02-2020 History of Past illness Narrative* Problem Noted Date Diagnosed Date Resolved Date Postoperative abdominal pain 07/12/2020 10/13/2020 Mild protein-calorie malnutrition 06/28/2020 06/29/2020 Infected prosthetic mesh of abdominal wall 06/20/2020 06/30/2020 Obesity, Class II, BMI 35-39.9 06/13/2019 08/16/2020 SBO (small bowel obstruction) 06/07/2019 08/16/2020 Morbid obesity 03/10/2019 06/13/2019 Abnormal cardiovascular stress test 09/11/2017 10/15/2017 Primary osteoarthritis of right hip 11/27/2016 08/18/2020 Trochanteric bursitis of right hip 11/27/2016 08/18/2020 Dyspnea, unspecified 03/08/2016 020 Angiomyolipoma of right kidney 01/11/2016 06/15/2016 Essential hypertension with goal blood pressure less than 140/90 12/13/2015 04/12/2017 Obstructive sleep apnea syndrome 12/13/2015 04/12/2017 Superficial skin infection 08/31/2015 0 03/13/2016 CKD stage 3 due to type 2 diabetes mellitus 02/06/2015 11/16/2018 Overview: Dr. Lilian Vance, nephrology BMI 45.0-49.9, adult 02/06/2015 020 Venous insufficiency 02/06/2015 017 DM type 2 causing CKD stage 3 09/21/2014 03/05/2019 Overview: Dr Landen Best, endocrinology Degenerative arthritis of hip 07/01/2014 08/16/2020 BMI 45.0-49.9, adult 03/31/2014 015 Diabetes mellitus type II, uncontrolled 11/25/2013 02/06/2015 BMI 40.0-44.9, adult 10/14/2013 014 Chest pain 09/13/2012 03/13/2016 Overview: Substernal pressure lasting ~5hrs, partially relieved with SLN. Significant risk factors for CAD (HTN, HLD, DM). EKG does to show ST changes. Initial CE at [facility] are supposedly negative. Prior stress test in 2010 was normal. DM well controlled. Currently low likelihood for ACS. - EKG - trend [facility] - stress test vs [facility] S/P total knee replacement using cement 07/02/2012 07/15/2018 Degenerative arthritis of right knee 06/10/2012 08/12/2014 Allergic contact dermatitis due to metals 05/21/2012 08/16/2020 Sensorineural hearing loss, bilateral 07/19/2011 08/16/2020 Diverticulosis 08/23/2010 03/13/2016 Thyroid CA 02/21/2010 08/12/2014 Overview: * Surgery (12/15/09): total thyroidectomy, Dr. Jamey Ibrahim, [facility] * Path (10/29/09): FNA Atypical cells present in a background of cyst contents, suspicious for papillary thyroid carcinoma (12/15/09): single well-circumscribed nodule in the right inferior lobe, which measured 3.5 cm in greatest dimension. The nodule was extensively hemorrhagic and cystic with a rim of viable material which ranges in appearance from papillary architecture to follicular structures. There is no evidence of a higher grade component. There is no definitive lymphovascular space invasion identified. In some areas, the tumor cells have oncocytic cytoplasm, however, the cells do not meet criteria for tall-cell variant of papillary thyroid carcinoma. * SIDDIQI (02/17/10): Rx 131-Iodine 102.4 mCi, Thyrogen-stim * Scan (02/24/10): post-treatment scan (Thyrogen-stim) shows uptake in left neck, also in liver area. SPECT images show one focus of uptake in lateral segment of the left lobe of the liver, one in the medial segment of the left lobe of liver, and one in the posterior segment of the right lobe of the liver. (05/03/11): Thyrogen stim 123-Iodine scan negative * Thyroglobulin Component Thyroglobulin TG Antibody Screen Stimulation Latest Ref Rng 0.8 - 49.0 ng/mL <14.4 IU/mL 11/05/2009 75.7 (H) 1.0 01/18/2010 <0.2 (L) 1.1 02/16/2010 0.3 (L) 1.0 Thyrogen 07/05/2010 <0.2 (L) 1.3 12/27/2010 <0.2 (L) 1.3 05/08/2011 <0.2 (L) 1.1 Thyrogen 07/24/2011 <0.2 (L) 1.5 01/23/2012 <0.2 (L) 1.0 07/27/2012 <0.2 (L) <1.0 02/18/2013 <0.2 (L) <1.0 08/12/2013 <0.2 (L) <1.0 * mRNA (11/03/09): TSH-R mRNA=1.7 ng/ug (11/30/09): TSH-R mRNA=1.8 ng/ug (01/18/10): no TSH-R mRNA assay postop (07/05/10): TSH-R mRNA <1.0 ng/ug (12/27/10): TSH-R mRNA <1.0 ng/ug * Ultrasound (01/18/10): no suspicious adenopathy along great vessels or in lateral neck on either side. No masses in thyroid bed. (12/27/10): no suspicious adenopathy along great vessels or in lateral neck on either side. No masses in thyroid bed. (01/24/12): no suspicious adenopathy along great vessels or in lateral neck on either side. No masses in thyroid bed. (08/11/13): no suspicious adenopathy along great vessels or in lateral neck on either side. No masses in thyroid bed. Thyroid nodule 10/20/2009 03/02/2010 Incisional hernia without me ntion of obstruction or gangrene 09/12/2005 08/12/2014 Symptomatic menopausal or fe male climacteric states 04/07/2003 10/15/2017 Diabetes mellitus type 2 03/02/200301/2014 Overview: *Type (): dx type 2 diabetes *Control hx Component Hemoglobin A1C Latest Ref Rng 4.0 - 6.0 % 01/17/2011 6.8 05/08/2011 7.2 07/24/2011 6.8 01/23/2012 6.7 07/27/2012 6.1 (H) 02/18/2013 6.4 (H) 08/08/2013 7.0 (H) 10/13/2013 7.1 (H) 02/17/14 7.3 * Eye hx (10/2008): no DM changes per Dr. Campoverde (07/2013): no DM changes per pt, exam Dr. Campoverde * Renal hx Component Albumin/Creat Ratio Latest Ref Rng 0 - 30 mg/g 04/03/2005 8 05/03/2006 8 03/26/2008 13 01/22/2009 18 02/16/2010 10 07/05/2010 9 05/08/2011 13 08/08/2013 9 * Vascular hx (11/12/13): no hx [place], stroke, Component Latest Ref Rng 02/18/2013 08/12/2013 10/13/2013 Triglyceride 30 - 149 mg/dL 114 123 126 Cholesterol 100 - 199 mg/dL 196 192 187 HDL Cholesterol >55 mg/dL 47 (L) 58 52 (L) VLDL Cholesterol 6 - 40 mg/dL 23 25 25 LDL Cholesterol 60 - 129 mg/dL 126 109 110 Fasting Time FASTING FASTING fasting TC:HDL Ratio 1.00 - 5.00 4.17 3.31 3.60 LDL:HDL Ratio 0.50 - 3.55 2.68 1.88 2.12 Non HDL Cholesterol 90 - 159 mg/dL 149 134 135 * Sleep (11/12/13): has obstructive sleep apnea, uses BiPAP since titration 04/07/13 * Exercise (11/12/13): not exercisnig * Medications (11/12/13): Victoza 1.8 mg daily, metformin 500 mg 2-1-1, * Physician (11/12/13): primary physician is Hayley Malone Morbid obesity 03/02/2003 07/15/2014 HYPERLIPIDEMIA NEC/NOS 06/10 documented as of this encounter (statuses as of 04/06/2023) [facility]11-02-2020 History of Past illness Narrative* Problem Noted Date Diagnosed Date Resolved Date Postoperative abdominal pain 07/12/2020 10/13/2020 Mild protein-calorie malnutrition 06/28/2020 06/29/2020 Infected prosthetic mesh of abdominal wall 06/20/2020 06/30/2020 Obesity, Class II, BMI 35-39.9 06/13/2019 08/16/2020 SBO (small bowel obstruction) 06/07/2019 08/16/2020 Morbid obesity 03/10/2019 06/13/2019 Abnormal cardiovascular stress test 09/11/2017 10/15/2017 Primary osteoarthritis of right hip 11/27/2016 08/18/2020 Trochanteric bursitis of right hip 11/27/2016 08/18/2020 Dyspnea, unspecified 03/08/2016 020 Angiomyolipoma of right kidney 01/11/2016 06/15/2016 Essential hypertension with goal blood pressure less than 140/90 12/13/2015 04/12/2017 Obstructive sleep apnea syndrome 12/13/2015 04/12/2017 Superficial skin infection 08/31/2015 0 03/13/2016 CKD stage 3 due to type 2 diabetes mellitus 02/06/2015 11/16/2018 Overview: Dr. Lilian Vance, nephrology BMI 45.0-49.9, adult 02/06/2015 020 Venous insufficiency 02/06/2015 017 DM type 2 causing CKD stage 3 09/21/2014 03/05/2019 Overview: Dr Landen Best, endocrinology Degenerative arthritis of hip 07/01/2014 08/16/2020 BMI 45.0-49.9, adult 03/31/2014 015 Diabetes mellitus type II, uncontrolled 11/25/2013 02/06/2015 BMI 40.0-44.9, adult 10/14/2013 014 Chest pain 09/13/2012 03/13/2016 Overview: Substernal pressure lasting ~5hrs, partially relieved with SLN. Significant risk factors for CAD (HTN, HLD, DM). EKG does to show ST changes. Initial CE at [facility] are supposedly negative. Prior stress test in 2010 was normal. DM well controlled. Currently low likelihood for ACS. - EKG - trend [facility] - stress test vs [facility] S/P total knee replacement using cement 07/02/2012 07/15/2018 Degenerative arthritis of right knee 06/10/2012 08/12/2014 Allergic contact dermatitis due to metals 05/21/2012 08/16/2020 Sensorineural hearing loss, bilateral 07/19/2011 08/16/2020 Diverticulosis 08/23/2010 03/13/2016 Thyroid CA 02/21/2010 08/12/2014 Overview: * Surgery (12/15/09): total thyroidectomy, Dr. Jamey Ibrahim, [facility] * Path (10/29/09): FNA Atypical cells present in a background of cyst contents, suspicious for papillary thyroid carcinoma (12/15/09): single well-circumscribed nodule in the right inferior lobe, which measured 3.5 cm in greatest dimension. The nodule was extensively hemorrhagic and cystic with a rim of viable material which ranges in appearance from papillary architecture to follicular structures. There is no evidence of a higher grade component. There is no definitive lymphovascular space invasion identified. In some areas, the tumor cells have oncocytic cytoplasm, however, the cells do not meet criteria for tall-cell variant of papillary thyroid carcinoma. * SIDDIQI (02/17/10): Rx 131-Iodine 102.4 mCi, Thyrogen-stim * Scan (02/24/10): post-treatment scan (Thyrogen-stim) shows uptake in left neck, also in liver area. SPECT images show one focus of uptake in lateral segment of the left lobe of the liver, one in the medial segment of the left lobe of liver, and one in the posterior segment of the right lobe of the liver. (05/03/11): Thyrogen stim 123-Iodine scan negative * Thyroglobulin Component Thyroglobulin TG Antibody Screen Stimulation Latest Ref Rng 0.8 - 49.0 ng/mL <14.4 IU/mL 11/05/2009 75.7 (H) 1.0 01/18/2010 <0.2 (L) 1.1 02/16/2010 0.3 (L) 1.0 Thyrogen 07/05/2010 <0.2 (L) 1.3 12/27/2010 <0.2 (L) 1.3 05/08/2011 <0.2 (L) 1.1 Thyrogen 07/24/2011 <0.2 (L) 1.5 01/23/2012 <0.2 (L) 1.0 07/27/2012 <0.2 (L) <1.0 02/18/2013 <0.2 (L) <1.0 08/12/2013 <0.2 (L) <1.0 * mRNA (11/03/09): TSH-R mRNA=1.7 ng/ug (11/30/09): TSH-R mRNA=1.8 ng/ug (01/18/10): no TSH-R mRNA assay postop (07/05/10): TSH-R mRNA <1.0 ng/ug (12/27/10): TSH-R mRNA <1.0 ng/ug * Ultrasound (01/18/10): no suspicious adenopathy along great vessels or in lateral neck on either side. No masses in thyroid bed. (12/27/10): no suspicious adenopathy along great vessels or in lateral neck on either side. No masses in thyroid bed. (01/24/12): no suspicious adenopathy along great vessels or in lateral neck on either side. No masses in thyroid bed. (08/11/13): no suspicious adenopathy along great vessels or in lateral neck on either side. No masses in thyroid bed. Thyroid nodule 10/20/2009 03/02/2010 Incisional hernia without me ntion of obstruction or gangrene 09/12/2005 08/12/2014 Symptomatic menopausal or fe male climacteric states 04/07/2003 10/15/2017 Diabetes mellitus type 2 03/02/200301/2014 Overview: *Type (): dx type 2 diabetes *Control hx Component Hemoglobin A1C Latest Ref Rng 4.0 - 6.0 % 01/17/2011 6.8 05/08/2011 7.2 07/24/2011 6.8 01/23/2012 6.7 07/27/2012 6.1 (H) 02/18/2013 6.4 (H) 08/08/2013 7.0 (H) 10/13/2013 7.1 (H) 02/17/14 7.3 * Eye hx (10/2008): no DM changes per Dr. Campoverde (07/2013): no DM changes per pt, exam Dr. Campoverde * Renal hx Component Albumin/Creat Ratio Latest Ref Rng 0 - 30 mg/g 04/03/2005 8 05/03/2006 8 03/26/2008 13 01/22/2009 18 02/16/2010 10 07/05/2010 9 05/08/2011 13 08/08/2013 9 * Vascular hx (11/12/13): no hx [place], stroke, Component Latest Ref Rng 02/18/2013 08/12/2013 10/13/2013 Triglyceride 30 - 149 mg/dL 114 123 126 Cholesterol 100 - 199 mg/dL 196 192 187 HDL Cholesterol >55 mg/dL 47 (L) 58 52 (L) VLDL Cholesterol 6 - 40 mg/dL 23 25 25 LDL Cholesterol 60 - 129 mg/dL 126 109 110 Fasting Time FASTING FASTING fasting TC:HDL Ratio 1.00 - 5.00 4.17 3.31 3.60 LDL:HDL Ratio 0.50 - 3.55 2.68 1.88 2.12 Non HDL Cholesterol 90 - 159 mg/dL 149 134 135 * Sleep (11/12/13): has obstructive sleep apnea, uses BiPAP since titration 04/07/13 * Exercise (11/12/13): not exercisnig * Medications (11/12/13): Victoza 1.8 mg daily, metformin 500 mg 2-1-1, * Physician (11/12/13): primary physician is Hayley Malone Morbid obesity 03/02/2003 07/15/2014 HYPERLIPIDEMIA NEC/NOS 06/10 documented as of this encounter (statuses as of 04/10/2023) [facility]11-02-2020 History of Past illness Narrative* Problem Noted Date Diagnosed Date Resolved Date Postoperative abdominal pain 07/12/2020 10/13/2020 Mild protein-calorie malnutrition 06/28/2020 06/29/2020 Infected prosthetic mesh of abdominal wall 06/20/2020 06/30/2020 Obesity, Class II, BMI 35-39.9 06/13/2019 08/16/2020 SBO (small bowel obstruction) 06/07/2019 08/16/2020 Morbid obesity 03/10/2019 06/13/2019 Abnormal cardiovascular stress test 09/11/2017 10/15/2017 Primary osteoarthritis of right hip 11/27/2016 08/18/2020 Trochanteric bursitis of right hip 11/27/2016 08/18/2020 Dyspnea, unspecified 03/08/2016 020 Angiomyolipoma of right kidney 01/11/2016 06/15/2016 Essential hypertension with goal blood pressure less than 140/90 12/13/2015 04/12/2017 Obstructive sleep apnea syndrome 12/13/2015 04/12/2017 Superficial skin infection 08/31/2015 0 03/13/2016 CKD stage 3 due to type 2 diabetes mellitus 02/06/2015 11/16/2018 Overview: Dr. Lilian Vance, nephrology BMI 45.0-49.9, adult 02/06/2015 020 Venous insufficiency 02/06/2015 017 DM type 2 causing CKD stage 3 09/21/2014 03/05/2019 Overview: Dr Landen Best, endocrinology Degenerative arthritis of hip 07/01/2014 08/16/2020 BMI 45.0-49.9, adult 03/31/2014 015 Diabetes mellitus type II, uncontrolled 11/25/2013 02/06/2015 BMI 40.0-44.9, adult 10/14/2013 014 Chest pain 09/13/2012 03/13/2016 Overview: Substernal pressure lasting ~5hrs, partially relieved with SLN. Significant risk factors for CAD (HTN, HLD, DM). EKG does to show ST changes. Initial CE at [facility] are supposedly negative. Prior stress test in 2010 was normal. DM well controlled. Currently low likelihood for ACS. - EKG - trend [facility] - stress test vs [facility] S/P total knee replacement using cement 07/02/2012 07/15/2018 Degenerative arthritis of right knee 06/10/2012 08/12/2014 Allergic contact dermatitis due to metals 05/21/2012 08/16/2020 Sensorineural hearing loss, bilateral 07/19/2011 08/16/2020 Diverticulosis 08/23/2010 03/13/2016 Thyroid CA 02/21/2010 08/12/2014 Overview: * Surgery (12/15/09): total thyroidectomy, Dr. Jamey Ibrahim, [facility] * Path (10/29/09): FNA Atypical cells present in a background of cyst contents, suspicious for papillary thyroid carcinoma (12/15/09): single well-circumscribed nodule in the right inferior lobe, which measured 3.5 cm in greatest dimension. The nodule was extensively hemorrhagic and cystic with a rim of viable material which ranges in appearance from papillary architecture to follicular structures. There is no evidence of a higher grade component. There is no definitive lymphovascular space invasion identified. In some areas, the tumor cells have oncocytic cytoplasm, however, the cells do not meet criteria for tall-cell variant of papillary thyroid carcinoma. * SIDDIQI (02/17/10): Rx 131-Iodine 102.4 mCi, Thyrogen-stim * Scan (02/24/10): post-treatment scan (Thyrogen-stim) shows uptake in left neck, also in liver area. SPECT images show one focus of uptake in lateral segment of the left lobe of the liver, one in the medial segment of the left lobe of liver, and one in the posterior segment of the right lobe of the liver. (05/03/11): Thyrogen stim 123-Iodine scan negative * Thyroglobulin Component Thyroglobulin TG Antibody Screen Stimulation Latest Ref Rng 0.8 - 49.0 ng/mL <14.4 IU/mL 11/05/2009 75.7 (H) 1.0 01/18/2010 <0.2 (L) 1.1 02/16/2010 0.3 (L) 1.0 Thyrogen 07/05/2010 <0.2 (L) 1.3 12/27/2010 <0.2 (L) 1.3 05/08/2011 <0.2 (L) 1.1 Thyrogen 07/24/2011 <0.2 (L) 1.5 01/23/2012 <0.2 (L) 1.0 07/27/2012 <0.2 (L) <1.0 02/18/2013 <0.2 (L) <1.0 08/12/2013 <0.2 (L) <1.0 * mRNA (11/03/09): TSH-R mRNA=1.7 ng/ug (11/30/09): TSH-R mRNA=1.8 ng/ug (01/18/10): no TSH-R mRNA assay postop (07/05/10): TSH-R mRNA <1.0 ng/ug (12/27/10): TSH-R mRNA <1.0 ng/ug * Ultrasound (01/18/10): no suspicious adenopathy along great vessels or in lateral neck on either side. No masses in thyroid bed. (12/27/10): no suspicious adenopathy along great vessels or in lateral neck on either side. No masses in thyroid bed. (01/24/12): no suspicious adenopathy along great vessels or in lateral neck on either side. No masses in thyroid bed. (08/11/13): no suspicious adenopathy along great vessels or in lateral neck on either side. No masses in thyroid bed. Thyroid nodule 10/20/2009 03/02/2010 Incisional hernia without me ntion of obstruction or gangrene 09/12/2005 08/12/2014 Symptomatic menopausal or fe male climacteric states 04/07/2003 10/15/2017 Diabetes mellitus type 2 03/02/200301/2014 Overview: *Type (): dx type 2 diabetes *Control hx Component Hemoglobin A1C Latest Ref Rng 4.0 - 6.0 % 01/17/2011 6.8 05/08/2011 7.2 07/24/2011 6.8 01/23/2012 6.7 07/27/2012 6.1 (H) 02/18/2013 6.4 (H) 08/08/2013 7.0 (H) 10/13/2013 7.1 (H) 02/17/14 7.3 * Eye hx (10/2008): no DM changes per Dr. Campoverde (07/2013): no DM changes per pt, exam Dr. Campoverde * Renal hx Component Albumin/Creat Ratio Latest Ref Rng 0 - 30 mg/g 04/03/2005 8 05/03/2006 8 03/26/2008 13 01/22/2009 18 02/16/2010 10 07/05/2010 9 05/08/2011 13 08/08/2013 9 * Vascular hx (11/12/13): no hx [place], stroke, Component Latest Ref Rng 02/18/2013 08/12/2013 10/13/2013 Triglyceride 30 - 149 mg/dL 114 123 126 Cholesterol 100 - 199 mg/dL 196 192 187 HDL Cholesterol >55 mg/dL 47 (L) 58 52 (L) VLDL Cholesterol 6 - 40 mg/dL 23 25 25 LDL Cholesterol 60 - 129 mg/dL 126 109 110 Fasting Time FASTING FASTING fasting TC:HDL Ratio 1.00 - 5.00 4.17 3.31 3.60 LDL:HDL Ratio 0.50 - 3.55 2.68 1.88 2.12 Non HDL Cholesterol 90 - 159 mg/dL 149 134 135 * Sleep (11/12/13): has obstructive sleep apnea, uses BiPAP since titration 04/07/13 * Exercise (11/12/13): not exercisnig * Medications (11/12/13): Victoza 1.8 mg daily, metformin 500 mg 2-1-1, * Physician (11/12/13): primary physician is Hayley Malone Morbid obesity 03/02/2003 07/15/2014 HYPERLIPIDEMIA NEC/NOS 06/10 documented as of this encounter (statuses as of 04/25/2023) [facility]11[facility]2020 History of Past illness Narrative* Problem Noted Date Diagnosed Date Resolved Date Postoperative abdominal pain 07/12/2020 10/13/2020 Mild protein-calorie malnutrition 06/28/2020 06/29/2020 Infected prosthetic mesh of abdominal wall 06/20/2020 06/30/2020 Obesity, Class II, BMI 35-39.9 06/13/2019 08/16/2020 SBO (small bowel obstruction) 06/07/2019 08/16/2020 Morbid obesity 03/10/2019 06/13/2019 Abnormal cardiovascular stress test 09/11/2017 10/15/2017 Primary osteoarthritis of right hip 11/27/2016 08/18/2020 Trochanteric bursitis of right hip 11/27/2016 08/18/2020 Dyspnea, unspecified 03/08/2016 020 Angiomyolipoma of right kidney 01/11/2016 06/15/2016 Essential hypertension with goal blood pressure less than 140/90 12/13/2015 04/12/2017 Obstructive sleep apnea syndrome 12/13/2015 04/12/2017 Superficial skin infection 08/31/2015 0 03/13/2016 CKD stage 3 due to type 2 diabetes mellitus 02/06/2015 11/16/2018 Overview: Dr. Lilian Vance, nephrology BMI 45.0-49.9, adult 02/06/2015 020 Venous insufficiency 02/06/2015 017 DM type 2 causing CKD stage 3 09/21/2014 03/05/2019 Overview: Dr Landen Best, endocrinology Degenerative arthritis of hip 07/01/2014 08/16/2020 BMI 45.0-49.9, adult 03/31/2014 015 Diabetes mellitus type II, uncontrolled 11/25/2013 02/06/2015 BMI 40.0-44.9, adult 10/14/2013 014 Chest pain 09/13/2012 03/13/2016 Overview: Substernal pressure lasting ~5hrs, partially relieved with SLN. Significant risk factors for CAD (HTN, HLD, DM). EKG does to show ST changes. Initial CE at [facility] are supposedly negative. Prior stress test in 2010 was normal. DM well controlled. Currently low likelihood for ACS. - EKG - trend Donald - stress test vs [facility] S/P total knee replacement using cement 07/02/2012 07/15/2018 Degenerative arthritis of right knee 06/10/2012 08/12/2014 Allergic contact dermatitis due to metals 05/21/2012 08/16/2020 Sensorineural hearing loss, bilateral 07/19/2011 08/16/2020 Diverticulosis 08/23/2010 03/13/2016 Thyroid CA 02/21/2010 08/12/2014 Overview: * Surgery (12/15/09): total thyroidectomy, Dr. Jamey Ibrahim, [facility] * Path (10/29/09): FNA Atypical cells present in a background of cyst contents, suspicious for papillary thyroid carcinoma (12/15/09): single well-circumscribed nodule in the right inferior lobe, which measured 3.5 cm in greatest dimension. The nodule was extensively hemorrhagic and cystic with a rim of viable material which ranges in appearance from papillary architecture to follicular structures. There is no evidence of a higher grade component. There is no definitive lymphovascular space invasion identified. In some areas, the tumor cells have oncocytic cytoplasm, however, the cells do not meet criteria for tall-cell variant of papillary thyroid carcinoma. * SIDDIQI (02/17/10): Rx 131-Iodine 102.4 mCi, Thyrogen-stim * Scan (02/24/10): post-treatment scan (Thyrogen-stim) shows uptake in left neck, also in liver area. SPECT images show one focus of uptake in lateral segment of the left lobe of the liver, one in the medial segment of the left lobe of liver, and one in the posterior segment of the right lobe of the liver. (05/03/11): Thyrogen stim 123-Iodine scan negative * Thyroglobulin Component Thyroglobulin TG Antibody Screen Stimulation Latest Ref Rng 0.8 - 49.0 ng/mL <14.4 IU/mL 11/05/2009 75.7 (H) 1.0 01/18/2010 <0.2 (L) 1.1 02/16/2010 0.3 (L) 1.0 Thyrogen 07/05/2010 <0.2 (L) 1.3 12/27/2010 <0.2 (L) 1.3 05/08/2011 <0.2 (L) 1.1 Thyrogen 07/24/2011 <0.2 (L) 1.5 01/23/2012 <0.2 (L) 1.0 07/27/2012 <0.2 (L) <1.0 02/18/2013 <0.2 (L) <1.0 08/12/2013 <0.2 (L) <1.0 * mRNA (11/03/09): TSH-R mRNA=1.7 ng/ug (11/30/09): TSH-R mRNA=1.8 ng/ug (01/18/10): no TSH-R mRNA assay postop (07/05/10): TSH-R mRNA <1.0 ng/ug (12/27/10): TSH-R mRNA <1.0 ng/ug * Ultrasound (01/18/10): no suspicious adenopathy along great vessels or in lateral neck on either side. No masses in thyroid bed. (12/27/10): no suspicious adenopathy along great vessels or in lateral neck on either side. No masses in thyroid bed. (01/24/12): no suspicious adenopathy along great vessels or in lateral neck on either side. No masses in thyroid bed. (08/11/13): no suspicious adenopathy along great vessels or in lateral neck on either side. No masses in thyroid bed. Thyroid nodule 10/20/2009 03/02/2010 Incisional hernia without me ntion of obstruction or gangrene 09/12/2005 08/12/2014 Symptomatic menopausal or fe male climacteric states 04/07/2003 10/15/2017 Diabetes mellitus type 2 03/02/200301/2014 Overview: *Type (): dx type 2 diabetes *Control hx Component Hemoglobin A1C Latest Ref Rng 4.0 - 6.0 % 01/17/2011 6.8 05/08/2011 7.2 07/24/2011 6.8 01/23/2012 6.7 07/27/2012 6.1 (H) 02/18/2013 6.4 (H) 08/08/2013 7.0 (H) 10/13/2013 7.1 (H) 02/17/14 7.3 * Eye hx (10/2008): no DM changes per Dr. Campoverde (07/2013): no DM changes per pt, exam Dr. Campoverde * Renal hx Component Albumin/Creat Ratio Latest Ref Rng 0 - 30 mg/g 04/03/2005 8 05/03/2006 8 03/26/2008 13 01/22/2009 18 02/16/2010 10 07/05/2010 9 05/08/2011 13 08/08/2013 9 * Vascular hx (11/12/13): no hx [place], stroke, Component Latest Ref Rng 02/18/2013 08/12/2013 10/13/2013 Triglyceride 30 - 149 mg/dL 114 123 126 Cholesterol 100 - 199 mg/dL 196 192 187 HDL Cholesterol >55 mg/dL 47 (L) 58 52 (L) VLDL Cholesterol 6 - 40 mg/dL 23 25 25 LDL Cholesterol 60 - 129 mg/dL 126 109 110 Fasting Time FASTING FASTING fasting TC:HDL Ratio 1.00 - 5.00 4.17 3.31 3.60 LDL:HDL Ratio 0.50 - 3.55 2.68 1.88 2.12 Non HDL Cholesterol 90 - 159 mg/dL 149 134 135 * Sleep (11/12/13): has obstructive sleep apnea, uses BiPAP since titration 04/07/13 * Exercise (11/12/13): not exercisnig * Medications (11/12/13): Victoza 1.8 mg daily, metformin 500 mg 2-1-1, * Physician (11/12/13): primary physician is Hayley Malone Morbid obesity 03/02/2003 07/15/2014 HYPERLIPIDEMIA NEC/NOS 06/10 documented as of this encounter (statuses as of 04/27/2023) [facility]2020 History of Past illness Narrative* Problem Noted Date Diagnosed Date Resolved Date Postoperative abdominal pain 07/12/2020 10/13/2020 Mild protein-calorie malnutrition 06/28/2020 06/29/2020 Infected prosthetic mesh of abdominal wall 06/20/2020 06/30/2020 Obesity, Class II, BMI 35-39.9 06/13/2019 08/16/2020 SBO (small bowel obstruction) 06/07/2019 08/16/2020 Morbid obesity 03/10/2019 06/13/2019 Abnormal cardiovascular stress test 09/11/2017 10/15/2017 Primary osteoarthritis of right hip 11/27/2016 08/18/2020 Trochanteric bursitis of right hip 11/27/2016 08/18/2020 Dyspnea, unspecified 03/08/2016 020 Angiomyolipoma of right kidney 01/11/2016 06/15/2016 Essential hypertension with goal blood pressure less than 140/90 12/13/2015 04/12/2017 Obstructive sleep apnea syndrome 12/13/2015 04/12/2017 Superficial skin infection 08/31/2015 0 03/13/2016 CKD stage 3 due to type 2 diabetes mellitus 02/06/2015 11/16/2018 Overview: Dr. Lilian Vance, nephrology BMI 45.0-49.9, adult 02/06/2015 020 Venous insufficiency 02/06/2015 017 DM type 2 causing CKD stage 3 09/21/2014 03/05/2019 Overview: Dr Landen Best, endocrinology Degenerative arthritis of hip 07/01/2014 08/16/2020 BMI 45.0-49.9, adult 03/31/2014 015 Diabetes mellitus type II, uncontrolled 11/25/2013 02/06/2015 BMI 40.0-44.9, adult 10/14/2013 014 Chest pain 09/13/2012 03/13/2016 Overview: Substernal pressure lasting ~5hrs, partially relieved with SLN. Significant risk factors for CAD (HTN, HLD, DM). EKG does to show ST changes. Initial CE at [facility] are supposedly negative. Prior stress test in 2010 was normal. DM well controlled. Currently low likelihood for ACS. - EKG - trend [facility] - stress test vs [facility] S/P total knee replacement using cement 07/02/2012 07/15/2018 Degenerative arthritis of right knee 06/10/2012 08/12/2014 Allergic contact dermatitis due to metals 05/21/2012 08/16/2020 Sensorineural hearing loss, bilateral 07/19/2011 08/16/2020 Diverticulosis 08/23/2010 03/13/2016 Thyroid CA 02/21/2010 08/12/2014 Overview: * Surgery (12/15/09): total thyroidectomy, Dr. Jamey Ibrahim, [facility] * Path (10/29/09): FNA Atypical cells present in a background of cyst contents, suspicious for papillary thyroid carcinoma (12/15/09): single well-circumscribed nodule in the right inferior lobe, which measured 3.5 cm in greatest dimension. The nodule was extensively hemorrhagic and cystic with a rim of viable material which ranges in appearance from papillary architecture to follicular structures. There is no evidence of a higher grade component. There is no definitive lymphovascular space invasion identified. In some areas, the tumor cells have oncocytic cytoplasm, however, the cells do not meet criteria for tall-cell variant of papillary thyroid carcinoma. * SIDDIQI (02/17/10): Rx 131-Iodine 102.4 mCi, Thyrogen-stim * Scan (02/24/10): post-treatment scan (Thyrogen-stim) shows uptake in left neck, also in liver area. SPECT images show one focus of uptake in lateral segment of the left lobe of the liver, one in the medial segment of the left lobe of liver, and one in the posterior segment of the right lobe of the liver. (05/03/11): Thyrogen stim 123-Iodine scan negative * Thyroglobulin Component Thyroglobulin TG Antibody Screen Stimulation Latest Ref Rng 0.8 - 49.0 ng/mL <14.4 IU/mL 11/05/2009 75.7 (H) 1.0 01/18/2010 <0.2 (L) 1.1 02/16/2010 0.3 (L) 1.0 Thyrogen 07/05/2010 <0.2 (L) 1.3 12/27/2010 <0.2 (L) 1.3 05/08/2011 <0.2 (L) 1.1 Thyrogen 07/24/2011 <0.2 (L) 1.5 01/23/2012 <0.2 (L) 1.0 07/27/2012 <0.2 (L) <1.0 02/18/2013 <0.2 (L) <1.0 08/12/2013 <0.2 (L) <1.0 * mRNA (11/03/09): TSH-R mRNA=1.7 ng/ug (11/30/09): TSH-R mRNA=1.8 ng/ug (01/18/10): no TSH-R mRNA assay postop (07/05/10): TSH-R mRNA <1.0 ng/ug (12/27/10): TSH-R mRNA <1.0 ng/ug * Ultrasound (01/18/10): no suspicious adenopathy along great vessels or in lateral neck on either side. No masses in thyroid bed. (12/27/10): no suspicious adenopathy along great vessels or in lateral neck on either side. No masses in thyroid bed. (01/24/12): no suspicious adenopathy along great vessels or in lateral neck on either side. No masses in thyroid bed. (08/11/13): no suspicious adenopathy along great vessels or in lateral neck on either side. No masses in thyroid bed. Thyroid nodule 10/20/2009 03/02/2010 Incisional hernia without me ntion of obstruction or gangrene 09/12/2005 08/12/2014 Symptomatic menopausal or fe male climacteric states 04/07/2003 10/15/2017 Diabetes mellitus type 2 03/02/200301/2014 Overview: *Type (): dx type 2 diabetes *Control hx Component Hemoglobin A1C Latest Ref Rng 4.0 - 6.0 % 01/17/2011 6.8 05/08/2011 7.2 07/24/2011 6.8 01/23/2012 6.7 07/27/2012 6.1 (H) 02/18/2013 6.4 (H) 08/08/2013 7.0 (H) 10/13/2013 7.1 (H) 02/17/14 7.3 * Eye hx (10/2008): no DM changes per Dr. Campoverde (07/2013): no DM changes per pt, exam Dr. Campoverde * Renal hx Component Albumin/Creat Ratio Latest Ref Rng 0 - 30 mg/g 04/03/2005 8 05/03/2006 8 03/26/2008 13 01/22/2009 18 02/16/2010 10 07/05/2010 9 05/08/2011 13 08/08/2013 9 * Vascular hx (11/12/13): no hx [place], stroke, Component Latest Ref Rng 02/18/2013 08/12/2013 10/13/2013 Triglyceride 30 - 149 mg/dL 114 123 126 Cholesterol 100 - 199 mg/dL 196 192 187 HDL Cholesterol >55 mg/dL 47 (L) 58 52 (L) VLDL Cholesterol 6 - 40 mg/dL 23 25 25 LDL Cholesterol 60 - 129 mg/dL 126 109 110 Fasting Time FASTING FASTING fasting TC:HDL Ratio 1.00 - 5.00 4.17 3.31 3.60 LDL:HDL Ratio 0.50 - 3.55 2.68 1.88 2.12 Non HDL Cholesterol 90 - 159 mg/dL 149 134 135 * Sleep (11/12/13): has obstructive sleep apnea, uses BiPAP since titration 04/07/13 * Exercise (11/12/13): not exercisnig * Medications (11/12/13): Victoza 1.8 mg daily, metformin 500 mg 2-1-1, * Physician (11/12/13): primary physician is Hayley Malone Morbid obesity 03/02/2003 07/15/2014 HYPERLIPIDEMIA NEC/NOS 06/10 documented as of this encounter (statuses as of 04/28/2023) [facility]11-02-2020 History of Past illness Narrative* Problem Noted Date Diagnosed Date Resolved Date Postoperative abdominal pain 07/12/2020 10/13/2020 Mild protein-calorie malnutrition 06/28/2020 06/29/2020 Infected prosthetic mesh of abdominal wall 06/20/2020 06/30/2020 Obesity, Class II, BMI 35-39.9 06/13/2019 08/16/2020 SBO (small bowel obstruction) 06/07/2019 08/16/2020 Morbid obesity 03/10/2019 06/13/2019 Abnormal cardiovascular stress test 09/11/2017 10/15/2017 Primary osteoarthritis of right hip 11/27/2016 08/18/2020 Trochanteric bursitis of right hip 11/27/2016 08/18/2020 Dyspnea, unspecified 03/08/2016 020 Angiomyolipoma of right kidney 01/11/2016 06/15/2016 Essential hypertension with goal blood pressure less than 140/90 12/13/2015 04/12/2017 Obstructive sleep apnea syndrome 12/13/2015 04/12/2017 Superficial skin infection 08/31/2015 0 03/13/2016 CKD stage 3 due to type 2 diabetes mellitus 02/06/2015 11/16/2018 Overview: Dr. Lilian Vance, nephrology BMI 45.0-49.9, adult 02/06/2015 020 Venous insufficiency 02/06/2015 017 DM type 2 causing CKD stage 3 09/21/2014 03/05/2019 Overview: Dr Landen Best, endocrinology Degenerative arthritis of hip 07/01/2014 08/16/2020 BMI 45.0-49.9, adult 03/31/2014 015 Diabetes mellitus type II, uncontrolled 11/25/2013 02/06/2015 BMI 40.0-44.9, adult 10/14/2013 014 Chest pain 09/13/2012 03/13/2016 Overview: Substernal pressure lasting ~5hrs, partially relieved with SLN. Significant risk factors for CAD (HTN, HLD, DM). EKG does to show ST changes. Initial CE at [facility] are supposedly negative. Prior stress test in 2010 was normal. DM well controlled. Currently low likelihood for ACS. - EKG - trend [facility] - stress test vs [facility] S/P total knee replacement using cement 07/02/2012 07/15/2018 Degenerative arthritis of right knee 06/10/2012 08/12/2014 Allergic contact dermatitis due to metals 05/21/2012 08/16/2020 Sensorineural hearing loss, bilateral 07/19/2011 08/16/2020 Diverticulosis 08/23/2010 03/13/2016 Thyroid CA 02/21/2010 08/12/2014 Overview: * Surgery (12/15/09): total thyroidectomy, Dr. Jamey Ibrahim, [facility] * Path (10/29/09): FNA Atypical cells present in a background of cyst contents, suspicious for papillary thyroid carcinoma (12/15/09): single well-circumscribed nodule in the right inferior lobe, which measured 3.5 cm in greatest dimension. The nodule was extensively hemorrhagic and cystic with a rim of viable material which ranges in appearance from papillary architecture to follicular structures. There is no evidence of a higher grade component. There is no definitive lymphovascular space invasion identified. In some areas, the tumor cells have oncocytic cytoplasm, however, the cells do not meet criteria for tall-cell variant of papillary thyroid carcinoma. * SIDDIQI (02/17/10): Rx 131-Iodine 102.4 mCi, Thyrogen-stim * Scan (02/24/10): post-treatment scan (Thyrogen-stim) shows uptake in left neck, also in liver area. SPECT images show one focus of uptake in lateral segment of the left lobe of the liver, one in the medial segment of the left lobe of liver, and one in the posterior segment of the right lobe of the liver. (05/03/11): Thyrogen stim 123-Iodine scan negative * Thyroglobulin Component Thyroglobulin TG Antibody Screen Stimulation Latest Ref Rng 0.8 - 49.0 ng/mL <14.4 IU/mL 11/05/2009 75.7 (H) 1.0 01/18/2010 <0.2 (L) 1.1 02/16/2010 0.3 (L) 1.0 Thyrogen 07/05/2010 <0.2 (L) 1.3 12/27/2010 <0.2 (L) 1.3 05/08/2011 <0.2 (L) 1.1 Thyrogen 07/24/2011 <0.2 (L) 1.5 01/23/2012 <0.2 (L) 1.0 07/27/2012 <0.2 (L) <1.0 02/18/2013 <0.2 (L) <1.0 08/12/2013 <0.2 (L) <1.0 * mRNA (11/03/09): TSH-R mRNA=1.7 ng/ug (11/30/09): TSH-R mRNA=1.8 ng/ug (01/18/10): no TSH-R mRNA assay postop (07/05/10): TSH-R mRNA <1.0 ng/ug (12/27/10): TSH-R mRNA <1.0 ng/ug * Ultrasound (01/18/10): no suspicious adenopathy along great vessels or in lateral neck on either side. No masses in thyroid bed. (12/27/10): no suspicious adenopathy along great vessels or in lateral neck on either side. No masses in thyroid bed. (01/24/12): no suspicious adenopathy along great vessels or in lateral neck on either side. No masses in thyroid bed. (08/11/13): no suspicious adenopathy along great vessels or in lateral neck on either side. No masses in thyroid bed. Thyroid nodule 10/20/2009 03/02/2010 Incisional hernia without me ntion of obstruction or gangrene 09/12/2005 08/12/2014 Symptomatic menopausal or fe male climacteric states 04/07/2003 10/15/2017 Diabetes mellitus type 2 03/02/200301/2014 Overview: *Type (): dx type 2 diabetes *Control hx Component Hemoglobin A1C Latest Ref Rng 4.0 - 6.0 % 01/17/2011 6.8 05/08/2011 7.2 07/24/2011 6.8 01/23/2012 6.7 07/27/2012 6.1 (H) 02/18/2013 6.4 (H) 08/08/2013 7.0 (H) 10/13/2013 7.1 (H) 02/17/14 7.3 * Eye hx (10/2008): no DM changes per Dr. Campoverde (07/2013): no DM changes per pt, exam Dr. Campoverde * Renal hx Component Albumin/Creat Ratio Latest Ref Rng 0 - 30 mg/g 04/03/2005 8 05/03/2006 8 03/26/2008 13 01/22/2009 18 02/16/2010 10 07/05/2010 9 05/08/2011 13 08/08/2013 9 * Vascular hx (11/12/13): no hx [place], stroke, Component Latest Ref Rng 02/18/2013 08/12/2013 10/13/2013 Triglyceride 30 - 149 mg/dL 114 123 126 Cholesterol 100 - 199 mg/dL 196 192 187 HDL Cholesterol >55 mg/dL 47 (L) 58 52 (L) VLDL Cholesterol 6 - 40 mg/dL 23 25 25 LDL Cholesterol 60 - 129 mg/dL 126 109 110 Fasting Time FASTING FASTING fasting TC:HDL Ratio 1.00 - 5.00 4.17 3.31 3.60 LDL:HDL Ratio 0.50 - 3.55 2.68 1.88 2.12 Non HDL Cholesterol 90 - 159 mg/dL 149 134 135 * Sleep (11/12/13): has obstructive sleep apnea, uses BiPAP since titration 04/07/13 * Exercise (11/12/13): not exercisnig * Medications (11/12/13): Victoza 1.8 mg daily, metformin 500 mg 2-1-1, * Physician (11/12/13): primary physician is Hayley Malone Morbid obesity 03/02/2003 07/15/2014 HYPERLIPIDEMIA NEC/NOS 06/10 documented as of this encounter (statuses as of 05/03/2023) [facility]11-[facility]2020 History of Past illness Narrative* Problem Noted Date Diagnosed Date Resolved Date Postoperative abdominal pain 07/12/2020 10/13/2020 Mild protein-calorie malnutrition 06/28/2020 06/29/2020 Infected prosthetic mesh of abdominal wall 06/20/2020 06/30/2020 Obesity, Class II, BMI 35-39.9 06/13/2019 08/16/2020 SBO (small bowel obstruction) 06/07/2019 08/16/2020 Morbid obesity 03/10/2019 06/13/2019 Abnormal cardiovascular stress test 09/11/2017 10/15/2017 Primary osteoarthritis of right hip 11/27/2016 08/18/2020 Trochanteric bursitis of right hip 11/27/2016 08/18/2020 Dyspnea, unspecified 03/08/2016 020 Angiomyolipoma of right kidney 01/11/2016 06/15/2016 Essential hypertension with goal blood pressure less than 140/90 12/13/2015 04/12/2017 Obstructive sleep apnea syndrome 12/13/2015 04/12/2017 Superficial skin infection 08/31/2015 0 03/13/2016 CKD stage 3 due to type 2 diabetes mellitus 02/06/2015 11/16/2018 Overview: Dr. Lilian Vance, nephrology BMI 45.0-49.9, adult 02/06/2015 020 Venous insufficiency 02/06/2015 017 DM type 2 causing CKD stage 3 09/21/2014 03/05/2019 Overview: Dr Landen Best, endocrinology Degenerative arthritis of hip 07/01/2014 08/16/2020 BMI 45.0-49.9, adult 03/31/2014 015 Diabetes mellitus type II, uncontrolled 11/25/2013 02/06/2015 BMI 40.0-44.9, adult 10/14/2013 014 Chest pain 09/13/2012 03/13/2016 Overview: Substernal pressure lasting ~5hrs, partially relieved with SLN. Significant risk factors for CAD (HTN, HLD, DM). EKG does to show ST changes. Initial CE at [facility] are supposedly negative. Prior stress test in 2010 was normal. DM well controlled. Currently low likelihood for ACS. - EKG - trend [facility] - stress test vs [facility] S/P total knee replacement using cement 07/02/2012 07/15/2018 Degenerative arthritis of right knee 06/10/2012 08/12/2014 Allergic contact dermatitis due to metals 05/21/2012 08/16/2020 Sensorineural hearing loss, bilateral 07/19/2011 08/16/2020 Diverticulosis 08/23/2010 03/13/2016 Thyroid CA 02/21/2010 08/12/2014 Overview: * Surgery (12/15/09): total thyroidectomy, Dr. Jamey Ibrahim, [facility] * Path (10/29/09): FNA Atypical cells present in a background of cyst contents, suspicious for papillary thyroid carcinoma (12/15/09): single well-circumscribed nodule in the right inferior lobe, which measured 3.5 cm in greatest dimension. The nodule was extensively hemorrhagic and cystic with a rim of viable material which ranges in appearance from papillary architecture to follicular structures. There is no evidence of a higher grade component. There is no definitive lymphovascular space invasion identified. In some areas, the tumor cells have oncocytic cytoplasm, however, the cells do not meet criteria for tall-cell variant of papillary thyroid carcinoma. * SIDDIQI (02/17/10): Rx 131-Iodine 102.4 mCi, Thyrogen-stim * Scan (02/24/10): post-treatment scan (Thyrogen-stim) shows uptake in left neck, also in liver area. SPECT images show one focus of uptake in lateral segment of the left lobe of the liver, one in the medial segment of the left lobe of liver, and one in the posterior segment of the right lobe of the liver. (05/03/11): Thyrogen stim 123-Iodine scan negative * Thyroglobulin Component Thyroglobulin TG Antibody Screen Stimulation Latest Ref Rng 0.8 - 49.0 ng/mL <14.4 IU/mL 11/05/2009 75.7 (H) 1.0 01/18/2010 <0.2 (L) 1.1 02/16/2010 0.3 (L) 1.0 Thyrogen 07/05/2010 <0.2 (L) 1.3 12/27/2010 <0.2 (L) 1.3 05/08/2011 <0.2 (L) 1.1 Thyrogen 07/24/2011 <0.2 (L) 1.5 01/23/2012 <0.2 (L) 1.0 07/27/2012 <0.2 (L) <1.0 02/18/2013 <0.2 (L) <1.0 08/12/2013 <0.2 (L) <1.0 * mRNA (11/03/09): TSH-R mRNA=1.7 ng/ug (11/30/09): TSH-R mRNA=1.8 ng/ug (01/18/10): no TSH-R mRNA assay postop (07/05/10): TSH-R mRNA <1.0 ng/ug (12/27/10): TSH-R mRNA <1.0 ng/ug * Ultrasound (01/18/10): no suspicious adenopathy along great vessels or in lateral neck on either side. No masses in thyroid bed. (12/27/10): no suspicious adenopathy along great vessels or in lateral neck on either side. No masses in thyroid bed. (01/24/12): no suspicious adenopathy along great vessels or in lateral neck on either side. No masses in thyroid bed. (08/11/13): no suspicious adenopathy along great vessels or in lateral neck on either side. No masses in thyroid bed. Thyroid nodule 10/20/2009 03/02/2010 Incisional hernia without me ntion of obstruction or gangrene 09/12/2005 08/12/2014 Symptomatic menopausal or fe male climacteric states 04/07/2003 10/15/2017 Diabetes mellitus type 2 03/02/200301/2014 Overview: *Type (): dx type 2 diabetes *Control hx Component Hemoglobin A1C Latest Ref Rng 4.0 - 6.0 % 01/17/2011 6.8 05/08/2011 7.2 07/24/2011 6.8 01/23/2012 6.7 07/27/2012 6.1 (H) 02/18/2013 6.4 (H) 08/08/2013 7.0 (H) 10/13/2013 7.1 (H) 02/17/14 7.3 * Eye hx (10/2008): no DM changes per Dr. Campoverde (07/2013): no DM changes per pt, exam Dr. Campoverde * Renal hx Component Albumin/Creat Ratio Latest Ref Rng 0 - 30 mg/g 04/03/2005 8 05/03/2006 8 03/26/2008 13 01/22/2009 18 02/16/2010 10 07/05/2010 9 05/08/2011 13 08/08/2013 9 * Vascular hx (11/12/13): no hx [place], stroke, Component Latest Ref Rng 02/18/2013 08/12/2013 10/13/2013 Triglyceride 30 - 149 mg/dL 114 123 126 Cholesterol 100 - 199 mg/dL 196 192 187 HDL Cholesterol >55 mg/dL 47 (L) 58 52 (L) VLDL Cholesterol 6 - 40 mg/dL 23 25 25 LDL Cholesterol 60 - 129 mg/dL 126 109 110 Fasting Time FASTING FASTING fasting TC:HDL Ratio 1.00 - 5.00 4.17 3.31 3.60 LDL:HDL Ratio 0.50 - 3.55 2.68 1.88 2.12 Non HDL Cholesterol 90 - 159 mg/dL 149 134 135 * Sleep (11/12/13): has obstructive sleep apnea, uses BiPAP since titration 04/07/13 * Exercise (11/12/13): not exercisnig * Medications (11/12/13): Victoza 1.8 mg daily, metformin 500 mg 2-1-1, * Physician (11/12/13): primary physician is Hayley Malone Morbid obesity 03/02/2003 07/15/2014 HYPERLIPIDEMIA NEC/NOS 06/10 documented as of this encounter (statuses as of 2023) [facility]2020 History of Past illness Narrative* Problem Noted Date Diagnosed Date Resolved Date Postoperative abdominal pain 07/12/2020 10/13/2020 Mild protein-calorie malnutrition 06/28/2020 06/29/2020 Infected prosthetic mesh of abdominal wall 06/20/2020 06/30/2020 Obesity, Class II, BMI 35-39.9 06/13/2019 08/16/2020 SBO (small bowel obstruction) 06/07/2019 08/16/2020 Morbid obesity 03/10/2019 06/13/2019 Abnormal cardiovascular stress test 09/11/2017 10/15/2017 Primary osteoarthritis of right hip 11/27/2016 08/18/2020 Trochanteric bursitis of right hip 11/27/2016 08/18/2020 Dyspnea, unspecified 03/08/2016 020 Angiomyolipoma of right kidney 01/11/2016 06/15/2016 Essential hypertension with goal blood pressure less than 140/90 12/13/2015 04/12/2017 Obstructive sleep apnea syndrome 12/13/2015 04/12/2017 Superficial skin infection 08/31/2015 0 03/13/2016 CKD stage 3 due to type 2 diabetes mellitus 02/06/2015 11/16/2018 Overview: Dr. Lilian Vance, nephrology BMI 45.0-49.9, adult 02/06/2015 020 Venous insufficiency 02/06/2015 017 DM type 2 causing CKD stage 3 09/21/2014 03/05/2019 Overview: Dr Landen Best, endocrinology Degenerative arthritis of hip 07/01/2014 08/16/2020 BMI 45.0-49.9, adult 03/31/2014 015 Diabetes mellitus type II, uncontrolled 11/25/2013 02/06/2015 BMI 40.0-44.9, adult 10/14/2013 014 Chest pain 09/13/2012 03/13/2016 Overview: Substernal pressure lasting ~5hrs, partially relieved with SLN. Significant risk factors for CAD (HTN, HLD, DM). EKG does to show ST changes. Initial CE at [facility] are supposedly negative. Prior stress test in 2010 was normal. DM well controlled. Currently low likelihood for ACS. - EKG - trend Donald - stress test vs [facility] S/P total knee replacement using cement 07/02/2012 07/15/2018 Degenerative arthritis of right knee 06/10/2012 08/12/2014 Allergic contact dermatitis due to metals 05/21/2012 08/16/2020 Sensorineural hearing loss, bilateral 07/19/2011 08/16/2020 Diverticulosis 08/23/2010 03/13/2016 Thyroid CA 02/21/2010 08/12/2014 Overview: * Surgery (12/15/09): total thyroidectomy, Dr. Jamey Ibrahim, [facility] * Path (10/29/09): FNA Atypical cells present in a background of cyst contents, suspicious for papillary thyroid carcinoma (12/15/09): single well-circumscribed nodule in the right inferior lobe, which measured 3.5 cm in greatest dimension. The nodule was extensively hemorrhagic and cystic with a rim of viable material which ranges in appearance from papillary architecture to follicular structures. There is no evidence of a higher grade component. There is no definitive lymphovascular space invasion identified. In some areas, the tumor cells have oncocytic cytoplasm, however, the cells do not meet criteria for tall-cell variant of papillary thyroid carcinoma. * SIDDIQI (02/17/10): Rx 131-Iodine 102.4 mCi, Thyrogen-stim * Scan (02/24/10): post-treatment scan (Thyrogen-stim) shows uptake in left neck, also in liver area. SPECT images show one focus of uptake in lateral segment of the left lobe of the liver, one in the medial segment of the left lobe of liver, and one in the posterior segment of the right lobe of the liver. (05/03/11): Thyrogen stim 123-Iodine scan negative * Thyroglobulin Component Thyroglobulin TG Antibody Screen Stimulation Latest Ref Rng 0.8 - 49.0 ng/mL <14.4 IU/mL 11/05/2009 75.7 (H) 1.0 01/18/2010 <0.2 (L) 1.1 02/16/2010 0.3 (L) 1.0 Thyrogen 07/05/2010 <0.2 (L) 1.3 12/27/2010 <0.2 (L) 1.3 05/08/2011 <0.2 (L) 1.1 Thyrogen 07/24/2011 <0.2 (L) 1.5 01/23/2012 <0.2 (L) 1.0 07/27/2012 <0.2 (L) <1.0 02/18/2013 <0.2 (L) <1.0 08/12/2013 <0.2 (L) <1.0 * mRNA (11/03/09): TSH-R mRNA=1.7 ng/ug (11/30/09): TSH-R mRNA=1.8 ng/ug (01/18/10): no TSH-R mRNA assay postop (07/05/10): TSH-R mRNA <1.0 ng/ug (12/27/10): TSH-R mRNA <1.0 ng/ug * Ultrasound (01/18/10): no suspicious adenopathy along great vessels or in lateral neck on either side. No masses in thyroid bed. (12/27/10): no suspicious adenopathy along great vessels or in lateral neck on either side. No masses in thyroid bed. (01/24/12): no suspicious adenopathy along great vessels or in lateral neck on either side. No masses in thyroid bed. (08/11/13): no suspicious adenopathy along great vessels or in lateral neck on either side. No masses in thyroid bed. Thyroid nodule 10/20/2009 03/02/2010 Incisional hernia without me ntion of obstruction or gangrene 09/12/2005 08/12/2014 Symptomatic menopausal or fe male climacteric states 04/07/2003 10/15/2017 Diabetes mellitus type 2 03/02/200301/2014 Overview: *Type (): dx type 2 diabetes *Control hx Component Hemoglobin A1C Latest Ref Rng 4.0 - 6.0 % 01/17/2011 6.8 05/08/2011 7.2 07/24/2011 6.8 01/23/2012 6.7 07/27/2012 6.1 (H) 02/18/2013 6.4 (H) 08/08/2013 7.0 (H) 10/13/2013 7.1 (H) 02/17/14 7.3 * Eye hx (10/2008): no DM changes per Dr. Campoverde (07/2013): no DM changes per pt, exam Dr. Campoverde * Renal hx Component Albumin/Creat Ratio Latest Ref Rng 0 - 30 mg/g 04/03/2005 8 05/03/2006 8 03/26/2008 13 01/22/2009 18 02/16/2010 10 07/05/2010 9 05/08/2011 13 08/08/2013 9 * Vascular hx (11/12/13): no hx [place], stroke, Component Latest Ref Rng 02/18/2013 08/12/2013 10/13/2013 Triglyceride 30 - 149 mg/dL 114 123 126 Cholesterol 100 - 199 mg/dL 196 192 187 HDL Cholesterol >55 mg/dL 47 (L) 58 52 (L) VLDL Cholesterol 6 - 40 mg/dL 23 25 25 LDL Cholesterol 60 - 129 mg/dL 126 109 110 Fasting Time FASTING FASTING fasting TC:HDL Ratio 1.00 - 5.00 4.17 3.31 3.60 LDL:HDL Ratio 0.50 - 3.55 2.68 1.88 2.12 Non HDL Cholesterol 90 - 159 mg/dL 149 134 135 * Sleep (11/12/13): has obstructive sleep apnea, uses BiPAP since titration 04/07/13 * Exercise (11/12/13): not exercisnig * Medications (11/12/13): Victoza 1.8 mg daily, metformin 500 mg 2-1-1, * Physician (11/12/13): primary physician is Hayley Malone Morbid obesity 03/02/2003 07/15/2014 HYPERLIPIDEMIA NEC/NOS 06/10 documented as of this encounter (statuses as of 2023) [facility]11-02-2020 History of Past illness Narrative* Problem Noted Date Diagnosed Date Resolved Date Postoperative abdominal pain 07/12/2020 10/13/2020 Mild protein-calorie malnutrition 06/28/2020 06/29/2020 Infected prosthetic mesh of abdominal wall 06/20/2020 06/30/2020 Obesity, Class II, BMI 35-39.9 06/13/2019 08/16/2020 SBO (small bowel obstruction) 06/07/2019 08/16/2020 Morbid obesity 03/10/2019 06/13/2019 Abnormal cardiovascular stress test 09/11/2017 10/15/2017 Primary osteoarthritis of right hip 11/27/2016 08/18/2020 Trochanteric bursitis of right hip 11/27/2016 08/18/2020 Dyspnea, unspecified 03/08/2016 020 Angiomyolipoma of right kidney 01/11/2016 06/15/2016 Essential hypertension with goal blood pressure less than 140/90 12/13/2015 04/12/2017 Obstructive sleep apnea syndrome 12/13/2015 04/12/2017 Superficial skin infection 08/31/2015 0 03/13/2016 CKD stage 3 due to type 2 diabetes mellitus 02/06/2015 11/16/2018 Overview: Dr. Lilian Vance, nephrology BMI 45.0-49.9, adult 02/06/2015 020 Venous insufficiency 02/06/2015 017 DM type 2 causing CKD stage 3 09/21/2014 03/05/2019 Overview: Dr Landen Best, endocrinology Degenerative arthritis of hip 07/01/2014 08/16/2020 BMI 45.0-49.9, adult 03/31/2014 015 Diabetes mellitus type II, uncontrolled 11/25/2013 02/06/2015 BMI 40.0-44.9, adult 10/14/2013 014 Chest pain 09/13/2012 03/13/2016 Overview: Substernal pressure lasting ~5hrs, partially relieved with SLN. Significant risk factors for CAD (HTN, HLD, DM). EKG does to show ST changes. Initial CE at [facility] are supposedly negative. Prior stress test in 2010 was normal. DM well controlled. Currently low likelihood for ACS. - EKG - trend Donald - stress test vs [facility] S/P total knee replacement using cement 07/02/2012 07/15/2018 Degenerative arthritis of right knee 06/10/2012 08/12/2014 Allergic contact dermatitis due to metals 05/21/2012 08/16/2020 Sensorineural hearing loss, bilateral 07/19/2011 08/16/2020 Diverticulosis 08/23/2010 03/13/2016 Thyroid CA 02/21/2010 08/12/2014 Overview: * Surgery (12/15/09): total thyroidectomy, Dr. Jamey Ibrahim, [facility] * Path (10/29/09): FNA Atypical cells present in a background of cyst contents, suspicious for papillary thyroid carcinoma (12/15/09): single well-circumscribed nodule in the right inferior lobe, which measured 3.5 cm in greatest dimension. The nodule was extensively hemorrhagic and cystic with a rim of viable material which ranges in appearance from papillary architecture to follicular structures. There is no evidence of a higher grade component. There is no definitive lymphovascular space invasion identified. In some areas, the tumor cells have oncocytic cytoplasm, however, the cells do not meet criteria for tall-cell variant of papillary thyroid carcinoma. * SIDDIQI (02/17/10): Rx 131-Iodine 102.4 mCi, Thyrogen-stim * Scan (02/24/10): post-treatment scan (Thyrogen-stim) shows uptake in left neck, also in liver area. SPECT images show one focus of uptake in lateral segment of the left lobe of the liver, one in the medial segment of the left lobe of liver, and one in the posterior segment of the right lobe of the liver. (05/03/11): Thyrogen stim 123-Iodine scan negative * Thyroglobulin Component Thyroglobulin TG Antibody Screen Stimulation Latest Ref Rng 0.8 - 49.0 ng/mL <14.4 IU/mL 11/05/2009 75.7 (H) 1.0 01/18/2010 <0.2 (L) 1.1 02/16/2010 0.3 (L) 1.0 Thyrogen 07/05/2010 <0.2 (L) 1.3 12/27/2010 <0.2 (L) 1.3 05/08/2011 <0.2 (L) 1.1 Thyrogen 07/24/2011 <0.2 (L) 1.5 01/23/2012 <0.2 (L) 1.0 07/27/2012 <0.2 (L) <1.0 02/18/2013 <0.2 (L) <1.0 08/12/2013 <0.2 (L) <1.0 * mRNA (11/03/09): TSH-R mRNA=1.7 ng/ug (11/30/09): TSH-R mRNA=1.8 ng/ug (01/18/10): no TSH-R mRNA assay postop (07/05/10): TSH-R mRNA <1.0 ng/ug (12/27/10): TSH-R mRNA <1.0 ng/ug * Ultrasound (01/18/10): no suspicious adenopathy along great vessels or in lateral neck on either side. No masses in thyroid bed. (12/27/10): no suspicious adenopathy along great vessels or in lateral neck on either side. No masses in thyroid bed. (01/24/12): no suspicious adenopathy along great vessels or in lateral neck on either side. No masses in thyroid bed. (08/11/13): no suspicious adenopathy along great vessels or in lateral neck on either side. No masses in thyroid bed. Thyroid nodule 10/20/2009 03/02/2010 Incisional hernia without me ntion of obstruction or gangrene 09/12/2005 08/12/2014 Symptomatic menopausal or fe male climacteric states 04/07/2003 10/15/2017 Diabetes mellitus type 2 03/02/200301/2014 Overview: *Type (): dx type 2 diabetes *Control hx Component Hemoglobin A1C Latest Ref Rng 4.0 - 6.0 % 01/17/2011 6.8 05/08/2011 7.2 07/24/2011 6.8 01/23/2012 6.7 07/27/2012 6.1 (H) 02/18/2013 6.4 (H) 08/08/2013 7.0 (H) 10/13/2013 7.1 (H) 02/17/14 7.3 * Eye hx (10/2008): no DM changes per Dr. Campoverde (07/2013): no DM changes per pt, exam Dr. Campoverde * Renal hx Component Albumin/Creat Ratio Latest Ref Rng 0 - 30 mg/g 04/03/2005 8 05/03/2006 8 03/26/2008 13 01/22/2009 18 02/16/2010 10 07/05/2010 9 05/08/2011 13 08/08/2013 9 * Vascular hx (11/12/13): no hx [place], stroke, Component Latest Ref Rng 02/18/2013 08/12/2013 10/13/2013 Triglyceride 30 - 149 mg/dL 114 123 126 Cholesterol 100 - 199 mg/dL 196 192 187 HDL Cholesterol >55 mg/dL 47 (L) 58 52 (L) VLDL Cholesterol 6 - 40 mg/dL 23 25 25 LDL Cholesterol 60 - 129 mg/dL 126 109 110 Fasting Time FASTING FASTING fasting TC:HDL Ratio 1.00 - 5.00 4.17 3.31 3.60 LDL:HDL Ratio 0.50 - 3.55 2.68 1.88 2.12 Non HDL Cholesterol 90 - 159 mg/dL 149 134 135 * Sleep (11/12/13): has obstructive sleep apnea, uses BiPAP since titration 04/07/13 * Exercise (11/12/13): not exercisnig * Medications (11/12/13): Victoza 1.8 mg daily, metformin 500 mg 2-1-1, * Physician (11/12/13): primary physician is Hayley Malone Morbid obesity 03/02/2003 07/15/2014 HYPERLIPIDEMIA NEC/NOS 06/10 documented as of this encounter (statuses as of 05/14/2023) [facility]11-02-2020 History of Past illness Narrative* Problem Noted Date Diagnosed Date Resolved Date Postoperative abdominal pain 07/12/2020 10/13/2020 Mild protein-calorie malnutrition 06/28/2020 06/29/2020 Infected prosthetic mesh of abdominal wall 06/20/2020 06/30/2020 Obesity, Class II, BMI 35-39.9 06/13/2019 08/16/2020 SBO (small bowel obstruction) 06/07/2019 08/16/2020 Morbid obesity 03/10/2019 06/13/2019 Abnormal cardiovascular stress test 09/11/2017 10/15/2017 Primary osteoarthritis of right hip 11/27/2016 08/18/2020 Trochanteric bursitis of right hip 11/27/2016 08/18/2020 Dyspnea, unspecified 03/08/2016 020 Angiomyolipoma of right kidney 01/11/2016 06/15/2016 Essential hypertension with goal blood pressure less than 140/90 12/13/2015 04/12/2017 Obstructive sleep apnea syndrome 12/13/2015 04/12/2017 Superficial skin infection 08/31/2015 0 03/13/2016 CKD stage 3 due to type 2 diabetes mellitus 02/06/2015 11/16/2018 Overview: Dr. Lilian Vance, nephrology BMI 45.0-49.9, adult 02/06/2015 020 Venous insufficiency 02/06/2015 017 DM type 2 causing CKD stage 3 09/21/2014 03/05/2019 Overview: Dr Landen Best, endocrinology Degenerative arthritis of hip 07/01/2014 08/16/2020 BMI 45.0-49.9, adult 03/31/2014 015 Diabetes mellitus type II, uncontrolled 11/25/2013 02/06/2015 BMI 40.0-44.9, adult 10/14/2013 014 Chest pain 09/13/2012 03/13/2016 Overview: Substernal pressure lasting ~5hrs, partially relieved with SLN. Significant risk factors for CAD (HTN, HLD, DM). EKG does to show ST changes. Initial CE at [facility] are supposedly negative. Prior stress test in 2010 was normal. DM well controlled. Currently low likelihood for ACS. - EKG - trend Donald - stress test vs [facility] S/P total knee replacement using cement 07/02/2012 07/15/2018 Degenerative arthritis of right knee 06/10/2012 08/12/2014 Allergic contact dermatitis due to metals 05/21/2012 08/16/2020 Sensorineural hearing loss, bilateral 07/19/2011 08/16/2020 Diverticulosis 08/23/2010 03/13/2016 Thyroid CA 02/21/2010 08/12/2014 Overview: * Surgery (12/15/09): total thyroidectomy, Dr. Jamey Ibrahim, [facility] * Path (10/29/09): FNA Atypical cells present in a background of cyst contents, suspicious for papillary thyroid carcinoma (12/15/09): single well-circumscribed nodule in the right inferior lobe, which measured 3.5 cm in greatest dimension. The nodule was extensively hemorrhagic and cystic with a rim of viable material which ranges in appearance from papillary architecture to follicular structures. There is no evidence of a higher grade component. There is no definitive lymphovascular space invasion identified. In some areas, the tumor cells have oncocytic cytoplasm, however, the cells do not meet criteria for tall-cell variant of papillary thyroid carcinoma. * SIDDIQI (02/17/10): Rx 131-Iodine 102.4 mCi, Thyrogen-stim * Scan (02/24/10): post-treatment scan (Thyrogen-stim) shows uptake in left neck, also in liver area. SPECT images show one focus of uptake in lateral segment of the left lobe of the liver, one in the medial segment of the left lobe of liver, and one in the posterior segment of the right lobe of the liver. (05/03/11): Thyrogen stim 123-Iodine scan negative * Thyroglobulin Component Thyroglobulin TG Antibody Screen Stimulation Latest Ref Rng 0.8 - 49.0 ng/mL <14.4 IU/mL 11/05/2009 75.7 (H) 1.0 01/18/2010 <0.2 (L) 1.1 02/16/2010 0.3 (L) 1.0 Thyrogen 07/05/2010 <0.2 (L) 1.3 12/27/2010 <0.2 (L) 1.3 05/08/2011 <0.2 (L) 1.1 Thyrogen 07/24/2011 <0.2 (L) 1.5 01/23/2012 <0.2 (L) 1.0 07/27/2012 <0.2 (L) <1.0 02/18/2013 <0.2 (L) <1.0 08/12/2013 <0.2 (L) <1.0 * mRNA (11/03/09): TSH-R mRNA=1.7 ng/ug (11/30/09): TSH-R mRNA=1.8 ng/ug (01/18/10): no TSH-R mRNA assay postop (07/05/10): TSH-R mRNA <1.0 ng/ug (12/27/10): TSH-R mRNA <1.0 ng/ug * Ultrasound (01/18/10): no suspicious adenopathy along great vessels or in lateral neck on either side. No masses in thyroid bed. (12/27/10): no suspicious adenopathy along great vessels or in lateral neck on either side. No masses in thyroid bed. (01/24/12): no suspicious adenopathy along great vessels or in lateral neck on either side. No masses in thyroid bed. (08/11/13): no suspicious adenopathy along great vessels or in lateral neck on either side. No masses in thyroid bed. Thyroid nodule 10/20/2009 03/02/2010 Incisional hernia without me ntion of obstruction or gangrene 09/12/2005 08/12/2014 Symptomatic menopausal or fe male climacteric states 04/07/2003 10/15/2017 Diabetes mellitus type 2 03/02/200301/2014 Overview: *Type (): dx type 2 diabetes *Control hx Component Hemoglobin A1C Latest Ref Rng 4.0 - 6.0 % 01/17/2011 6.8 05/08/2011 7.2 07/24/2011 6.8 01/23/2012 6.7 07/27/2012 6.1 (H) 02/18/2013 6.4 (H) 08/08/2013 7.0 (H) 10/13/2013 7.1 (H) 02/17/14 7.3 * Eye hx (10/2008): no DM changes per Dr. Campoverde (07/2013): no DM changes per pt, exam Dr. Campoverde * Renal hx Component Albumin/Creat Ratio Latest Ref Rng 0 - 30 mg/g 04/03/2005 8 05/03/2006 8 03/26/2008 13 01/22/2009 18 02/16/2010 10 07/05/2010 9 05/08/2011 13 08/08/2013 9 * Vascular hx (11/12/13): no hx [place], stroke, Component Latest Ref Rng 02/18/2013 08/12/2013 10/13/2013 Triglyceride 30 - 149 mg/dL 114 123 126 Cholesterol 100 - 199 mg/dL 196 192 187 HDL Cholesterol >55 mg/dL 47 (L) 58 52 (L) VLDL Cholesterol 6 - 40 mg/dL 23 25 25 LDL Cholesterol 60 - 129 mg/dL 126 109 110 Fasting Time FASTING FASTING fasting TC:HDL Ratio 1.00 - 5.00 4.17 3.31 3.60 LDL:HDL Ratio 0.50 - 3.55 2.68 1.88 2.12 Non HDL Cholesterol 90 - 159 mg/dL 149 134 135 * Sleep (11/12/13): has obstructive sleep apnea, uses BiPAP since titration 04/07/13 * Exercise (11/12/13): not exercisnig * Medications (11/12/13): Victoza 1.8 mg daily, metformin 500 mg 2-1-1, * Physician (11/12/13): primary physician is Hayley Malone Morbid obesity 03/02/2003 07/15/2014 HYPERLIPIDEMIA NEC/NOS 06/10 documented as of this encounter (statuses as of 05/30/2023) [facility]11-[facility]-2020 History of Past illness Narrative* Problem Noted Date Diagnosed Date Resolved Date Postoperative abdominal pain 07/12/2020 10/13/2020 Mild protein-calorie malnutrition 06/28/2020 06/29/2020 Infected prosthetic mesh of abdominal wall 06/20/2020 06/30/2020 Obesity, Class II, BMI 35-39.9 06/13/2019 08/16/2020 SBO (small bowel obstruction) 06/07/2019 08/16/2020 Morbid obesity 03/10/2019 06/13/2019 Abnormal cardiovascular stress test 09/11/2017 10/15/2017 Primary osteoarthritis of right hip 11/27/2016 08/18/2020 Trochanteric bursitis of right hip 11/27/2016 08/18/2020 Dyspnea, unspecified 03/08/2016 020 Angiomyolipoma of right kidney 01/11/2016 06/15/2016 Essential hypertension with goal blood pressure less than 140/90 12/13/2015 04/12/2017 Obstructive sleep apnea syndrome 12/13/2015 04/12/2017 Superficial skin infection 08/31/2015 0 03/13/2016 CKD stage 3 due to type 2 diabetes mellitus 02/06/2015 11/16/2018 Overview: Dr. Lilian Vance, nephrology BMI 45.0-49.9, adult 02/06/2015 020 Venous insufficiency 02/06/2015 017 DM type 2 causing CKD stage 3 09/21/2014 03/05/2019 Overview: Dr Landen Best, endocrinology Degenerative arthritis of hip 07/01/2014 08/16/2020 BMI 45.0-49.9, adult 03/31/2014 015 Diabetes mellitus type II, uncontrolled 11/25/2013 02/06/2015 BMI 40.0-44.9, adult 10/14/2013 014 Chest pain 09/13/2012 03/13/2016 Overview: Substernal pressure lasting ~5hrs, partially relieved with SLN. Significant risk factors for CAD (HTN, HLD, DM). EKG does to show ST changes. Initial CE at [facility] are supposedly negative. Prior stress test in 2010 was normal. DM well controlled. Currently low likelihood for ACS. - EKG - trend Donald - stress test vs [facility] S/P total knee replacement using cement 07/02/2012 07/15/2018 Degenerative arthritis of right knee 06/10/2012 08/12/2014 Allergic contact dermatitis due to metals 05/21/2012 08/16/2020 Sensorineural hearing loss, bilateral 07/19/2011 08/16/2020 Diverticulosis 08/23/2010 03/13/2016 Thyroid CA 02/21/2010 08/12/2014 Overview: * Surgery (12/15/09): total thyroidectomy, Dr. Jamey Ibrahim, [facility] * Path (10/29/09): FNA Atypical cells present in a background of cyst contents, suspicious for papillary thyroid carcinoma (12/15/09): single well-circumscribed nodule in the right inferior lobe, which measured 3.5 cm in greatest dimension. The nodule was extensively hemorrhagic and cystic with a rim of viable material which ranges in appearance from papillary architecture to follicular structures. There is no evidence of a higher grade component. There is no definitive lymphovascular space invasion identified. In some areas, the tumor cells have oncocytic cytoplasm, however, the cells do not meet criteria for tall-cell variant of papillary thyroid carcinoma. * SIDDIQI (02/17/10): Rx 131-Iodine 102.4 mCi, Thyrogen-stim * Scan (02/24/10): post-treatment scan (Thyrogen-stim) shows uptake in left neck, also in liver area. SPECT images show one focus of uptake in lateral segment of the left lobe of the liver, one in the medial segment of the left lobe of liver, and one in the posterior segment of the right lobe of the liver. (05/03/11): Thyrogen stim 123-Iodine scan negative * Thyroglobulin Component Thyroglobulin TG Antibody Screen Stimulation Latest Ref Rng 0.8 - 49.0 ng/mL <14.4 IU/mL 11/05/2009 75.7 (H) 1.0 01/18/2010 <0.2 (L) 1.1 02/16/2010 0.3 (L) 1.0 Thyrogen 07/05/2010 <0.2 (L) 1.3 12/27/2010 <0.2 (L) 1.3 05/08/2011 <0.2 (L) 1.1 Thyrogen 07/24/2011 <0.2 (L) 1.5 01/23/2012 <0.2 (L) 1.0 07/27/2012 <0.2 (L) <1.0 02/18/2013 <0.2 (L) <1.0 08/12/2013 <0.2 (L) <1.0 * mRNA (11/03/09): TSH-R mRNA=1.7 ng/ug (11/30/09): TSH-R mRNA=1.8 ng/ug (01/18/10): no TSH-R mRNA assay postop (07/05/10): TSH-R mRNA <1.0 ng/ug (12/27/10): TSH-R mRNA <1.0 ng/ug * Ultrasound (01/18/10): no suspicious adenopathy along great vessels or in lateral neck on either side. No masses in thyroid bed. (12/27/10): no suspicious adenopathy along great vessels or in lateral neck on either side. No masses in thyroid bed. (01/24/12): no suspicious adenopathy along great vessels or in lateral neck on either side. No masses in thyroid bed. (08/11/13): no suspicious adenopathy along great vessels or in lateral neck on either side. No masses in thyroid bed. Thyroid nodule 10/20/2009 03/02/2010 Incisional hernia without me ntion of obstruction or gangrene 09/12/2005 08/12/2014 Symptomatic menopausal or fe male climacteric states 04/07/2003 10/15/2017 Diabetes mellitus type 2 03/02/200301/2014 Overview: *Type (): dx type 2 diabetes *Control hx Component Hemoglobin A1C Latest Ref Rng 4.0 - 6.0 % 01/17/2011 6.8 05/08/2011 7.2 07/24/2011 6.8 01/23/2012 6.7 07/27/2012 6.1 (H) 02/18/2013 6.4 (H) 08/08/2013 7.0 (H) 10/13/2013 7.1 (H) 02/17/14 7.3 * Eye hx (10/2008): no DM changes per Dr. Campoverde (07/2013): no DM changes per pt, exam Dr. Campoverde * Renal hx Component Albumin/Creat Ratio Latest Ref Rng 0 - 30 mg/g 04/03/2005 8 05/03/2006 8 03/26/2008 13 01/22/2009 18 02/16/2010 10 07/05/2010 9 05/08/2011 13 08/08/2013 9 * Vascular hx (11/12/13): no hx [place], stroke, Component Latest Ref Rng 02/18/2013 08/12/2013 10/13/2013 Triglyceride 30 - 149 mg/dL 114 123 126 Cholesterol 100 - 199 mg/dL 196 192 187 HDL Cholesterol >55 mg/dL 47 (L) 58 52 (L) VLDL Cholesterol 6 - 40 mg/dL 23 25 25 LDL Cholesterol 60 - 129 mg/dL 126 109 110 Fasting Time FASTING FASTING fasting TC:HDL Ratio 1.00 - 5.00 4.17 3.31 3.60 LDL:HDL Ratio 0.50 - 3.55 2.68 1.88 2.12 Non HDL Cholesterol 90 - 159 mg/dL 149 134 135 * Sleep (11/12/13): has obstructive sleep apnea, uses BiPAP since titration 04/07/13 * Exercise (11/12/13): not exercisnig * Medications (11/12/13): Victoza 1.8 mg daily, metformin 500 mg 2-1-1, * Physician (11/12/13): primary physician is Hayley Malone Morbid obesity 03/02/2003 07/15/2014 HYPERLIPIDEMIA NEC/NOS 06/10 documented as of this encounter (statuses as of 06/21/2023) [facility]2020 History of Past illness Narrative* Problem Noted Date Diagnosed Date Resolved Date Postoperative abdominal pain 07/12/2020 10/13/2020 Mild protein-calorie malnutrition 06/28/2020 06/29/2020 Infected prosthetic mesh of abdominal wall 06/20/2020 06/30/2020 Obesity, Class II, BMI 35-39.9 06/13/2019 08/16/2020 SBO (small bowel obstruction) 06/07/2019 08/16/2020 Morbid obesity 03/10/2019 06/13/2019 Abnormal cardiovascular stress test 09/11/2017 10/15/2017 Primary osteoarthritis of right hip 11/27/2016 08/18/2020 Trochanteric bursitis of right hip 11/27/2016 08/18/2020 Dyspnea, unspecified 03/08/2016 020 Angiomyolipoma of right kidney 01/11/2016 06/15/2016 Essential hypertension with goal blood pressure less than 140/90 12/13/2015 04/12/2017 Obstructive sleep apnea syndrome 12/13/2015 04/12/2017 Superficial skin infection 08/31/2015 0 03/13/2016 CKD stage 3 due to type 2 diabetes mellitus 02/06/2015 11/16/2018 Overview: Dr. Lilian Vance, nephrology BMI 45.0-49.9, adult 02/06/2015 020 Venous insufficiency 02/06/2015 017 DM type 2 causing CKD stage 3 09/21/2014 03/05/2019 Overview: Dr Landen Best, endocrinology Degenerative arthritis of hip 07/01/2014 08/16/2020 BMI 45.0-49.9, adult 03/31/2014 015 Diabetes mellitus type II, uncontrolled 11/25/2013 02/06/2015 BMI 40.0-44.9, adult 10/14/2013 014 Chest pain 09/13/2012 03/13/2016 Overview: Substernal pressure lasting ~5hrs, partially relieved with SLN. Significant risk factors for CAD (HTN, HLD, DM). EKG does to show ST changes. Initial CE at [facility] are supposedly negative. Prior stress test in 2010 was normal. DM well controlled. Currently low likelihood for ACS. - EKG - trend Donald - stress test vs [facility] S/P total knee replacement using cement 07/02/2012 07/15/2018 Degenerative arthritis of right knee 06/10/2012 08/12/2014 Allergic contact dermatitis due to metals 05/21/2012 08/16/2020 Sensorineural hearing loss, bilateral 07/19/2011 08/16/2020 Diverticulosis 08/23/2010 03/13/2016 Thyroid CA 02/21/2010 08/12/2014 Overview: * Surgery (12/15/09): total thyroidectomy, Dr. Jamey Ibrahim, [facility] * Path (10/29/09): FNA Atypical cells present in a background of cyst contents, suspicious for papillary thyroid carcinoma (12/15/09): single well-circumscribed nodule in the right inferior lobe, which measured 3.5 cm in greatest dimension. The nodule was extensively hemorrhagic and cystic with a rim of viable material which ranges in appearance from papillary architecture to follicular structures. There is no evidence of a higher grade component. There is no definitive lymphovascular space invasion identified. In some areas, the tumor cells have oncocytic cytoplasm, however, the cells do not meet criteria for tall-cell variant of papillary thyroid carcinoma. * SIDDIQI (02/17/10): Rx 131-Iodine 102.4 mCi, Thyrogen-stim * Scan (02/24/10): post-treatment scan (Thyrogen-stim) shows uptake in left neck, also in liver area. SPECT images show one focus of uptake in lateral segment of the left lobe of the liver, one in the medial segment of the left lobe of liver, and one in the posterior segment of the right lobe of the liver. (05/03/11): Thyrogen stim 123-Iodine scan negative * Thyroglobulin Component Thyroglobulin TG Antibody Screen Stimulation Latest Ref Rng 0.8 - 49.0 ng/mL <14.4 IU/mL 11/05/2009 75.7 (H) 1.0 01/18/2010 <0.2 (L) 1.1 02/16/2010 0.3 (L) 1.0 Thyrogen 07/05/2010 <0.2 (L) 1.3 12/27/2010 <0.2 (L) 1.3 05/08/2011 <0.2 (L) 1.1 Thyrogen 07/24/2011 <0.2 (L) 1.5 01/23/2012 <0.2 (L) 1.0 07/27/2012 <0.2 (L) <1.0 02/18/2013 <0.2 (L) <1.0 08/12/2013 <0.2 (L) <1.0 * mRNA (11/03/09): TSH-R mRNA=1.7 ng/ug (11/30/09): TSH-R mRNA=1.8 ng/ug (01/18/10): no TSH-R mRNA assay postop (07/05/10): TSH-R mRNA <1.0 ng/ug (12/27/10): TSH-R mRNA <1.0 ng/ug * Ultrasound (01/18/10): no suspicious adenopathy along great vessels or in lateral neck on either side. No masses in thyroid bed. (12/27/10): no suspicious adenopathy along great vessels or in lateral neck on either side. No masses in thyroid bed. (01/24/12): no suspicious adenopathy along great vessels or in lateral neck on either side. No masses in thyroid bed. (08/11/13): no suspicious adenopathy along great vessels or in lateral neck on either side. No masses in thyroid bed. Thyroid nodule 10/20/2009 03/02/2010 Incisional hernia without me ntion of obstruction or gangrene 09/12/2005 08/12/2014 Symptomatic menopausal or fe male climacteric states 04/07/2003 10/15/2017 Diabetes mellitus type 2 03/02/200301/2014 Overview: *Type (): dx type 2 diabetes *Control hx Component Hemoglobin A1C Latest Ref Rng 4.0 - 6.0 % 01/17/2011 6.8 05/08/2011 7.2 07/24/2011 6.8 01/23/2012 6.7 07/27/2012 6.1 (H) 02/18/2013 6.4 (H) 08/08/2013 7.0 (H) 10/13/2013 7.1 (H) 02/17/14 7.3 * Eye hx (10/2008): no DM changes per Dr. Campoverde (07/2013): no DM changes per pt, exam Dr. Campoverde * Renal hx Component Albumin/Creat Ratio Latest Ref Rng 0 - 30 mg/g 04/03/2005 8 05/03/2006 8 03/26/2008 13 01/22/2009 18 02/16/2010 10 07/05/2010 9 05/08/2011 13 08/08/2013 9 * Vascular hx (11/12/13): no hx [place], stroke, Component Latest Ref Rng 02/18/2013 08/12/2013 10/13/2013 Triglyceride 30 - 149 mg/dL 114 123 126 Cholesterol 100 - 199 mg/dL 196 192 187 HDL Cholesterol >55 mg/dL 47 (L) 58 52 (L) VLDL Cholesterol 6 - 40 mg/dL 23 25 25 LDL Cholesterol 60 - 129 mg/dL 126 109 110 Fasting Time FASTING FASTING fasting TC:HDL Ratio 1.00 - 5.00 4.17 3.31 3.60 LDL:HDL Ratio 0.50 - 3.55 2.68 1.88 2.12 Non HDL Cholesterol 90 - 159 mg/dL 149 134 135 * Sleep (11/12/13): has obstructive sleep apnea, uses BiPAP since titration 04/07/13 * Exercise (11/12/13): not exercisnig * Medications (11/12/13): Victoza 1.8 mg daily, metformin 500 mg 2-1-1, * Physician (11/12/13): primary physician is Hayley Malone Morbid obesity 03/02/2003 07/15/2014 HYPERLIPIDEMIA NEC/NOS 06/10 documented as of this encounter (statuses as of 06/27/2023) [facility]11-02-2020 History of Past illness Narrative* Problem Noted Date Diagnosed Date Resolved Date Postoperative abdominal pain 07/12/2020 10/13/2020 Mild protein-calorie malnutrition 06/28/2020 06/29/2020 Infected prosthetic mesh of abdominal wall 06/20/2020 06/30/2020 Obesity, Class II, BMI 35-39.9 06/13/2019 08/16/2020 SBO (small bowel obstruction) 06/07/2019 08/16/2020 Morbid obesity 03/10/2019 06/13/2019 Abnormal cardiovascular stress test 09/11/2017 10/15/2017 Primary osteoarthritis of right hip 11/27/2016 08/18/2020 Trochanteric bursitis of right hip 11/27/2016 08/18/2020 Dyspnea, unspecified 03/08/2016 020 Angiomyolipoma of right kidney 01/11/2016 06/15/2016 Essential hypertension with goal blood pressure less than 140/90 12/13/2015 04/12/2017 Obstructive sleep apnea syndrome 12/13/2015 04/12/2017 Superficial skin infection 08/31/2015 0 03/13/2016 CKD stage 3 due to type 2 diabetes mellitus 02/06/2015 11/16/2018 Overview: Dr. Lilian Vance, nephrology BMI 45.0-49.9, adult 02/06/2015 020 Venous insufficiency 02/06/2015 017 DM type 2 causing CKD stage 3 09/21/2014 03/05/2019 Overview: Dr Landen Best, endocrinology Degenerative arthritis of hip 07/01/2014 08/16/2020 BMI 45.0-49.9, adult 03/31/2014 015 Diabetes mellitus type II, uncontrolled 11/25/2013 02/06/2015 BMI 40.0-44.9, adult 10/14/2013 014 Chest pain 09/13/2012 03/13/2016 Overview: Substernal pressure lasting ~5hrs, partially relieved with SLN. Significant risk factors for CAD (HTN, HLD, DM). EKG does to show ST changes. Initial CE at [facility] are supposedly negative. Prior stress test in 2010 was normal. DM well controlled. Currently low likelihood for ACS. - EKG - trend [facility] - stress test vs [facility] S/P total knee replacement using cement 07/02/2012 07/15/2018 Degenerative arthritis of right knee 06/10/2012 08/12/2014 Allergic contact dermatitis due to metals 05/21/2012 08/16/2020 Sensorineural hearing loss, bilateral 07/19/2011 08/16/2020 Diverticulosis 08/23/2010 03/13/2016 Thyroid CA 02/21/2010 08/12/2014 Overview: * Surgery (12/15/09): total thyroidectomy, Dr. Jamey Ibrahim, [facility] * Path (10/29/09): FNA Atypical cells present in a background of cyst contents, suspicious for papillary thyroid carcinoma (12/15/09): single well-circumscribed nodule in the right inferior lobe, which measured 3.5 cm in greatest dimension. The nodule was extensively hemorrhagic and cystic with a rim of viable material which ranges in appearance from papillary architecture to follicular structures. There is no evidence of a higher grade component. There is no definitive lymphovascular space invasion identified. In some areas, the tumor cells have oncocytic cytoplasm, however, the cells do not meet criteria for tall-cell variant of papillary thyroid carcinoma. * SIDDIQI (02/17/10): Rx 131-Iodine 102.4 mCi, Thyrogen-stim * Scan (02/24/10): post-treatment scan (Thyrogen-stim) shows uptake in left neck, also in liver area. SPECT images show one focus of uptake in lateral segment of the left lobe of the liver, one in the medial segment of the left lobe of liver, and one in the posterior segment of the right lobe of the liver. (05/03/11): Thyrogen stim 123-Iodine scan negative * Thyroglobulin Component Thyroglobulin TG Antibody Screen Stimulation Latest Ref Rng 0.8 - 49.0 ng/mL <14.4 IU/mL 11/05/2009 75.7 (H) 1.0 01/18/2010 <0.2 (L) 1.1 02/16/2010 0.3 (L) 1.0 Thyrogen 07/05/2010 <0.2 (L) 1.3 12/27/2010 <0.2 (L) 1.3 05/08/2011 <0.2 (L) 1.1 Thyrogen 07/24/2011 <0.2 (L) 1.5 01/23/2012 <0.2 (L) 1.0 07/27/2012 <0.2 (L) <1.0 02/18/2013 <0.2 (L) <1.0 08/12/2013 <0.2 (L) <1.0 * mRNA (11/03/09): TSH-R mRNA=1.7 ng/ug (11/30/09): TSH-R mRNA=1.8 ng/ug (01/18/10): no TSH-R mRNA assay postop (07/05/10): TSH-R mRNA <1.0 ng/ug (12/27/10): TSH-R mRNA <1.0 ng/ug * Ultrasound (01/18/10): no suspicious adenopathy along great vessels or in lateral neck on either side. No masses in thyroid bed. (12/27/10): no suspicious adenopathy along great vessels or in lateral neck on either side. No masses in thyroid bed. (01/24/12): no suspicious adenopathy along great vessels or in lateral neck on either side. No masses in thyroid bed. (08/11/13): no suspicious adenopathy along great vessels or in lateral neck on either side. No masses in thyroid bed. Thyroid nodule 10/20/2009 03/02/2010 Incisional hernia without me ntion of obstruction or gangrene 09/12/2005 08/12/2014 Symptomatic menopausal or fe male climacteric states 04/07/2003 10/15/2017 Diabetes mellitus type 2 03/02/200301/2014 Overview: *Type (): dx type 2 diabetes *Control hx Component Hemoglobin A1C Latest Ref Rng 4.0 - 6.0 % 01/17/2011 6.8 05/08/2011 7.2 07/24/2011 6.8 01/23/2012 6.7 07/27/2012 6.1 (H) 02/18/2013 6.4 (H) 08/08/2013 7.0 (H) 10/13/2013 7.1 (H) 02/17/14 7.3 * Eye hx (10/2008): no DM changes per Dr. Campoverde (07/2013): no DM changes per pt, exam Dr. Campoverde * Renal hx Component Albumin/Creat Ratio Latest Ref Rng 0 - 30 mg/g 04/03/2005 8 05/03/2006 8 03/26/2008 13 01/22/2009 18 02/16/2010 10 07/05/2010 9 05/08/2011 13 08/08/2013 9 * Vascular hx (11/12/13): no hx [place], stroke, Component Latest Ref Rng 02/18/2013 08/12/2013 10/13/2013 Triglyceride 30 - 149 mg/dL 114 123 126 Cholesterol 100 - 199 mg/dL 196 192 187 HDL Cholesterol >55 mg/dL 47 (L) 58 52 (L) VLDL Cholesterol 6 - 40 mg/dL 23 25 25 LDL Cholesterol 60 - 129 mg/dL 126 109 110 Fasting Time FASTING FASTING fasting TC:HDL Ratio 1.00 - 5.00 4.17 3.31 3.60 LDL:HDL Ratio 0.50 - 3.55 2.68 1.88 2.12 Non HDL Cholesterol 90 - 159 mg/dL 149 134 135 * Sleep (11/12/13): has obstructive sleep apnea, uses BiPAP since titration 04/07/13 * Exercise (11/12/13): not exercisnig * Medications (11/12/13): Victoza 1.8 mg daily, metformin 500 mg 2-1-1, * Physician (11/12/13): primary physician is Hayley Faisal Morbid obesity 03/02/2003 07/15/2014 HYPERLIPIDEMIA NEC/NOS 06/10 documented as of this encounter (statuses as of 06/28/2023) [facility]11-02-2020 History of Past illness Narrative* Problem Noted Date Diagnosed Date Resolved Date Postoperative abdominal pain 07/12/2020 10/13/2020 Mild protein-calorie malnutrition 06/28/2020 06/29/2020 Infected prosthetic mesh of abdominal wall 06/20/2020 06/30/2020 Obesity, Class II, BMI 35-39.9 06/13/2019 08/16/2020 SBO (small bowel obstruction) 06/07/2019 08/16/2020 Morbid obesity 03/10/2019 06/13/2019 Abnormal cardiovascular stress test 09/11/2017 10/15/2017 Primary osteoarthritis of right hip 11/27/2016 08/18/2020 Trochanteric bursitis of right hip 11/27/2016 08/18/2020 Dyspnea, unspecified 03/08/2016 020 Angiomyolipoma of right kidney 01/11/2016 06/15/2016 Essential hypertension with goal blood pressure less than 140/90 12/13/2015 04/12/2017 Obstructive sleep apnea syndrome 12/13/2015 04/12/2017 Superficial skin infection 08/31/2015 0 03/13/2016 CKD stage 3 due to type 2 diabetes mellitus 02/06/2015 11/16/2018 Overview: Dr. Lilian Vance, nephrology BMI 45.0-49.9, adult 02/06/2015 020 Venous insufficiency 02/06/2015 017 DM type 2 causing CKD stage 3 09/21/2014 03/05/2019 Overview: Dr Landen Best, endocrinology Degenerative arthritis of hip 07/01/2014 08/16/2020 BMI 45.0-49.9, adult 03/31/2014 015 Diabetes mellitus type II, uncontrolled 11/25/2013 02/06/2015 BMI 40.0-44.9, adult 10/14/2013 014 Chest pain 09/13/2012 03/13/2016 Overview: Substernal pressure lasting ~5hrs, partially relieved with SLN. Significant risk factors for CAD (HTN, HLD, DM). EKG does to show ST changes. Initial CE at [facility] are supposedly negative. Prior stress test in 2010 was normal. DM well controlled. Currently low likelihood for ACS. - EKG - trend Donald - stress test vs [facility] S/P total knee replacement using cement 07/02/2012 07/15/2018 Degenerative arthritis of right knee 06/10/2012 08/12/2014 Allergic contact dermatitis due to metals 05/21/2012 08/16/2020 Sensorineural hearing loss, bilateral 07/19/2011 08/16/2020 Diverticulosis 08/23/2010 03/13/2016 Thyroid CA 02/21/2010 08/12/2014 Overview: * Surgery (12/15/09): total thyroidectomy, Dr. Jamey Ibrahim, [facility] * Path (10/29/09): FNA Atypical cells present in a background of cyst contents, suspicious for papillary thyroid carcinoma (12/15/09): single well-circumscribed nodule in the right inferior lobe, which measured 3.5 cm in greatest dimension. The nodule was extensively hemorrhagic and cystic with a rim of viable material which ranges in appearance from papillary architecture to follicular structures. There is no evidence of a higher grade component. There is no definitive lymphovascular space invasion identified. In some areas, the tumor cells have oncocytic cytoplasm, however, the cells do not meet criteria for tall-cell variant of papillary thyroid carcinoma. * SIDDIQI (02/17/10): Rx 131-Iodine 102.4 mCi, Thyrogen-stim * Scan (02/24/10): post-treatment scan (Thyrogen-stim) shows uptake in left neck, also in liver area. SPECT images show one focus of uptake in lateral segment of the left lobe of the liver, one in the medial segment of the left lobe of liver, and one in the posterior segment of the right lobe of the liver. (05/03/11): Thyrogen stim 123-Iodine scan negative * Thyroglobulin Component Thyroglobulin TG Antibody Screen Stimulation Latest Ref Rng 0.8 - 49.0 ng/mL <14.4 IU/mL 11/05/2009 75.7 (H) 1.0 01/18/2010 <0.2 (L) 1.1 02/16/2010 0.3 (L) 1.0 Thyrogen 07/05/2010 <0.2 (L) 1.3 12/27/2010 <0.2 (L) 1.3 05/08/2011 <0.2 (L) 1.1 Thyrogen 07/24/2011 <0.2 (L) 1.5 01/23/2012 <0.2 (L) 1.0 07/27/2012 <0.2 (L) <1.0 02/18/2013 <0.2 (L) <1.0 08/12/2013 <0.2 (L) <1.0 * mRNA (11/03/09): TSH-R mRNA=1.7 ng/ug (11/30/09): TSH-R mRNA=1.8 ng/ug (01/18/10): no TSH-R mRNA assay postop (07/05/10): TSH-R mRNA <1.0 ng/ug (12/27/10): TSH-R mRNA <1.0 ng/ug * Ultrasound (01/18/10): no suspicious adenopathy along great vessels or in lateral neck on either side. No masses in thyroid bed. (12/27/10): no suspicious adenopathy along great vessels or in lateral neck on either side. No masses in thyroid bed. (01/24/12): no suspicious adenopathy along great vessels or in lateral neck on either side. No masses in thyroid bed. (08/11/13): no suspicious adenopathy along great vessels or in lateral neck on either side. No masses in thyroid bed. Thyroid nodule 10/20/2009 03/02/2010 Incisional hernia without me ntion of obstruction or gangrene 09/12/2005 08/12/2014 Symptomatic menopausal or fe male climacteric states 04/07/2003 10/15/2017 Diabetes mellitus type 2 03/02/200301/2014 Overview: *Type (): dx type 2 diabetes *Control hx Component Hemoglobin A1C Latest Ref Rng 4.0 - 6.0 % 01/17/2011 6.8 05/08/2011 7.2 07/24/2011 6.8 01/23/2012 6.7 07/27/2012 6.1 (H) 02/18/2013 6.4 (H) 08/08/2013 7.0 (H) 10/13/2013 7.1 (H) 02/17/14 7.3 * Eye hx (10/2008): no DM changes per Dr. Campoverde (07/2013): no DM changes per pt, exam Dr. Campoverde * Renal hx Component Albumin/Creat Ratio Latest Ref Rng 0 - 30 mg/g 04/03/2005 8 05/03/2006 8 03/26/2008 13 01/22/2009 18 02/16/2010 10 07/05/2010 9 05/08/2011 13 08/08/2013 9 * Vascular hx (11/12/13): no hx [place], stroke, Component Latest Ref Rng 02/18/2013 08/12/2013 10/13/2013 Triglyceride 30 - 149 mg/dL 114 123 126 Cholesterol 100 - 199 mg/dL 196 192 187 HDL Cholesterol >55 mg/dL 47 (L) 58 52 (L) VLDL Cholesterol 6 - 40 mg/dL 23 25 25 LDL Cholesterol 60 - 129 mg/dL 126 109 110 Fasting Time FASTING FASTING fasting TC:HDL Ratio 1.00 - 5.00 4.17 3.31 3.60 LDL:HDL Ratio 0.50 - 3.55 2.68 1.88 2.12 Non HDL Cholesterol 90 - 159 mg/dL 149 134 135 * Sleep (11/12/13): has obstructive sleep apnea, uses BiPAP since titration 04/07/13 * Exercise (11/12/13): not exercisnig * Medications (11/12/13): Victoza 1.8 mg daily, metformin 500 mg 2-1-1, * Physician (11/12/13): primary physician is Hayley Malone Morbid obesity 03/02/2003 07/15/2014 HYPERLIPIDEMIA NEC/NOS 06/10 documented as of this encounter (statuses as of 07/03/2023) [facility]11-[facility]2020 History of Past illness Narrative* Problem Noted Date Diagnosed Date Resolved Date Postoperative abdominal pain 07/12/2020 10/13/2020 Mild protein-calorie malnutrition 06/28/2020 06/29/2020 Infected prosthetic mesh of abdominal wall 06/20/2020 06/30/2020 Obesity, Class II, BMI 35-39.9 06/13/2019 08/16/2020 SBO (small bowel obstruction) 06/07/2019 08/16/2020 Morbid obesity 03/10/2019 06/13/2019 Abnormal cardiovascular stress test 09/11/2017 10/15/2017 Primary osteoarthritis of right hip 11/27/2016 08/18/2020 Trochanteric bursitis of right hip 11/27/2016 08/18/2020 Dyspnea, unspecified 03/08/2016 020 Angiomyolipoma of right kidney 01/11/2016 06/15/2016 Essential hypertension with goal blood pressure less than 140/90 12/13/2015 04/12/2017 Obstructive sleep apnea syndrome 12/13/2015 04/12/2017 Superficial skin infection 08/31/2015 0 03/13/2016 CKD stage 3 due to type 2 diabetes mellitus 02/06/2015 11/16/2018 Overview: Dr. Lilian Vance, nephrology BMI 45.0-49.9, adult 02/06/2015 020 Venous insufficiency 02/06/2015 017 DM type 2 causing CKD stage 3 09/21/2014 03/05/2019 Overview: Dr Landen Best, endocrinology Degenerative arthritis of hip 07/01/2014 08/16/2020 BMI 45.0-49.9, adult 03/31/2014 015 Diabetes mellitus type II, uncontrolled 11/25/2013 02/06/2015 BMI 40.0-44.9, adult 10/14/2013 014 Chest pain 09/13/2012 03/13/2016 Overview: Substernal pressure lasting ~5hrs, partially relieved with SLN. Significant risk factors for CAD (HTN, HLD, DM). EKG does to show ST changes. Initial CE at [facility] are supposedly negative. Prior stress test in 2010 was normal. DM well controlled. Currently low likelihood for ACS. - EKG - trend [facility] - stress test vs [facility] S/P total knee replacement using cement 07/02/2012 07/15/2018 Degenerative arthritis of right knee 06/10/2012 08/12/2014 Allergic contact dermatitis due to metals 05/21/2012 08/16/2020 Sensorineural hearing loss, bilateral 07/19/2011 08/16/2020 Diverticulosis 08/23/2010 03/13/2016 Thyroid CA 02/21/2010 08/12/2014 Overview: * Surgery (12/15/09): total thyroidectomy, Dr. Jamey Ibrahim, [facility] * Path (10/29/09): FNA Atypical cells present in a background of cyst contents, suspicious for papillary thyroid carcinoma (12/15/09): single well-circumscribed nodule in the right inferior lobe, which measured 3.5 cm in greatest dimension. The nodule was extensively hemorrhagic and cystic with a rim of viable material which ranges in appearance from papillary architecture to follicular structures. There is no evidence of a higher grade component. There is no definitive lymphovascular space invasion identified. In some areas, the tumor cells have oncocytic cytoplasm, however, the cells do not meet criteria for tall-cell variant of papillary thyroid carcinoma. * SIDDIQI (02/17/10): Rx 131-Iodine 102.4 mCi, Thyrogen-stim * Scan (02/24/10): post-treatment scan (Thyrogen-stim) shows uptake in left neck, also in liver area. SPECT images show one focus of uptake in lateral segment of the left lobe of the liver, one in the medial segment of the left lobe of liver, and one in the posterior segment of the right lobe of the liver. (05/03/11): Thyrogen stim 123-Iodine scan negative * Thyroglobulin Component Thyroglobulin TG Antibody Screen Stimulation Latest Ref Rng 0.8 - 49.0 ng/mL <14.4 IU/mL 11/05/2009 75.7 (H) 1.0 01/18/2010 <0.2 (L) 1.1 02/16/2010 0.3 (L) 1.0 Thyrogen 07/05/2010 <0.2 (L) 1.3 12/27/2010 <0.2 (L) 1.3 05/08/2011 <0.2 (L) 1.1 Thyrogen 07/24/2011 <0.2 (L) 1.5 01/23/2012 <0.2 (L) 1.0 07/27/2012 <0.2 (L) <1.0 02/18/2013 <0.2 (L) <1.0 08/12/2013 <0.2 (L) <1.0 * mRNA (11/03/09): TSH-R mRNA=1.7 ng/ug (11/30/09): TSH-R mRNA=1.8 ng/ug (01/18/10): no TSH-R mRNA assay postop (07/05/10): TSH-R mRNA <1.0 ng/ug (12/27/10): TSH-R mRNA <1.0 ng/ug * Ultrasound (01/18/10): no suspicious adenopathy along great vessels or in lateral neck on either side. No masses in thyroid bed. (12/27/10): no suspicious adenopathy along great vessels or in lateral neck on either side. No masses in thyroid bed. (01/24/12): no suspicious adenopathy along great vessels or in lateral neck on either side. No masses in thyroid bed. (08/11/13): no suspicious adenopathy along great vessels or in lateral neck on either side. No masses in thyroid bed. Thyroid nodule 10/20/2009 03/02/2010 Incisional hernia without me ntion of obstruction or gangrene 09/12/2005 08/12/2014 Symptomatic menopausal or fe male climacteric states 04/07/2003 10/15/2017 Diabetes mellitus type 2 03/02/200301/2014 Overview: *Type (): dx type 2 diabetes *Control hx Component Hemoglobin A1C Latest Ref Rng 4.0 - 6.0 % 01/17/2011 6.8 05/08/2011 7.2 07/24/2011 6.8 01/23/2012 6.7 07/27/2012 6.1 (H) 02/18/2013 6.4 (H) 08/08/2013 7.0 (H) 10/13/2013 7.1 (H) 02/17/14 7.3 * Eye hx (10/2008): no DM changes per Dr. Campoverde (07/2013): no DM changes per pt, exam Dr. Campoverde * Renal hx Component Albumin/Creat Ratio Latest Ref Rng 0 - 30 mg/g 04/03/2005 8 05/03/2006 8 03/26/2008 13 01/22/2009 18 02/16/2010 10 07/05/2010 9 05/08/2011 13 08/08/2013 9 * Vascular hx (11/12/13): no hx [place], stroke, Component Latest Ref Rng 02/18/2013 08/12/2013 10/13/2013 Triglyceride 30 - 149 mg/dL 114 123 126 Cholesterol 100 - 199 mg/dL 196 192 187 HDL Cholesterol >55 mg/dL 47 (L) 58 52 (L) VLDL Cholesterol 6 - 40 mg/dL 23 25 25 LDL Cholesterol 60 - 129 mg/dL 126 109 110 Fasting Time FASTING FASTING fasting TC:HDL Ratio 1.00 - 5.00 4.17 3.31 3.60 LDL:HDL Ratio 0.50 - 3.55 2.68 1.88 2.12 Non HDL Cholesterol 90 - 159 mg/dL 149 134 135 * Sleep (11/12/13): has obstructive sleep apnea, uses BiPAP since titration 04/07/13 * Exercise (11/12/13): not exercisnig * Medications (11/12/13): Victoza 1.8 mg daily, metformin 500 mg 2-1-1, * Physician (11/12/13): primary physician is Hayley Malone Morbid obesity 03/02/2003 07/15/2014 HYPERLIPIDEMIA NEC/NOS 06/10 documented as of this encounter (statuses as of 07/10/2023) [facility]2020 History of Past illness Narrative* Problem Noted Date Diagnosed Date Resolved Date Postoperative abdominal pain 07/12/2020 10/13/2020 Mild protein-calorie malnutrition 06/28/2020 06/29/2020 Infected prosthetic mesh of abdominal wall 06/20/2020 06/30/2020 Obesity, Class II, BMI 35-39.9 06/13/2019 08/16/2020 SBO (small bowel obstruction) 06/07/2019 08/16/2020 Morbid obesity 03/10/2019 06/13/2019 Abnormal cardiovascular stress test 09/11/2017 10/15/2017 Primary osteoarthritis of right hip 11/27/2016 08/18/2020 Trochanteric bursitis of right hip 11/27/2016 08/18/2020 Dyspnea, unspecified 03/08/2016 020 Angiomyolipoma of right kidney 01/11/2016 06/15/2016 Essential hypertension with goal blood pressure less than 140/90 12/13/2015 04/12/2017 Obstructive sleep apnea syndrome 12/13/2015 04/12/2017 Superficial skin infection 08/31/2015 0 03/13/2016 CKD stage 3 due to type 2 diabetes mellitus 02/06/2015 11/16/2018 Overview: Dr. Lilian Vance, nephrology BMI 45.0-49.9, adult 02/06/2015 020 Venous insufficiency 02/06/2015 017 DM type 2 causing CKD stage 3 09/21/2014 03/05/2019 Overview: Dr Landen Best, endocrinology Degenerative arthritis of hip 07/01/2014 08/16/2020 BMI 45.0-49.9, adult 03/31/2014 015 Diabetes mellitus type II, uncontrolled 11/25/2013 02/06/2015 BMI 40.0-44.9, adult 10/14/2013 014 Chest pain 09/13/2012 03/13/2016 Overview: Substernal pressure lasting ~5hrs, partially relieved with SLN. Significant risk factors for CAD (HTN, HLD, DM). EKG does to show ST changes. Initial CE at [facility] are supposedly negative. Prior stress test in 2010 was normal. DM well controlled. Currently low likelihood for ACS. - EKG - trend [facility] - stress test vs [facility] S/P total knee replacement using cement 07/02/2012 07/15/2018 Degenerative arthritis of right knee 06/10/2012 08/12/2014 Allergic contact dermatitis due to metals 05/21/2012 08/16/2020 Sensorineural hearing loss, bilateral 07/19/2011 08/16/2020 Diverticulosis 08/23/2010 03/13/2016 Thyroid CA 02/21/2010 08/12/2014 Overview: * Surgery (12/15/09): total thyroidectomy, Dr. Jamey Ibrahim, [facility] * Path (10/29/09): FNA Atypical cells present in a background of cyst contents, suspicious for papillary thyroid carcinoma (12/15/09): single well-circumscribed nodule in the right inferior lobe, which measured 3.5 cm in greatest dimension. The nodule was extensively hemorrhagic and cystic with a rim of viable material which ranges in appearance from papillary architecture to follicular structures. There is no evidence of a higher grade component. There is no definitive lymphovascular space invasion identified. In some areas, the tumor cells have oncocytic cytoplasm, however, the cells do not meet criteria for tall-cell variant of papillary thyroid carcinoma. * SIDDIQI (02/17/10): Rx 131-Iodine 102.4 mCi, Thyrogen-stim * Scan (02/24/10): post-treatment scan (Thyrogen-stim) shows uptake in left neck, also in liver area. SPECT images show one focus of uptake in lateral segment of the left lobe of the liver, one in the medial segment of the left lobe of liver, and one in the posterior segment of the right lobe of the liver. (05/03/11): Thyrogen stim 123-Iodine scan negative * Thyroglobulin Component Thyroglobulin TG Antibody Screen Stimulation Latest Ref Rng 0.8 - 49.0 ng/mL <14.4 IU/mL 11/05/2009 75.7 (H) 1.0 01/18/2010 <0.2 (L) 1.1 02/16/2010 0.3 (L) 1.0 Thyrogen 07/05/2010 <0.2 (L) 1.3 12/27/2010 <0.2 (L) 1.3 05/08/2011 <0.2 (L) 1.1 Thyrogen 07/24/2011 <0.2 (L) 1.5 01/23/2012 <0.2 (L) 1.0 07/27/2012 <0.2 (L) <1.0 02/18/2013 <0.2 (L) <1.0 08/12/2013 <0.2 (L) <1.0 * mRNA (11/03/09): TSH-R mRNA=1.7 ng/ug (11/30/09): TSH-R mRNA=1.8 ng/ug (01/18/10): no TSH-R mRNA assay postop (07/05/10): TSH-R mRNA <1.0 ng/ug (12/27/10): TSH-R mRNA <1.0 ng/ug * Ultrasound (01/18/10): no suspicious adenopathy along great vessels or in lateral neck on either side. No masses in thyroid bed. (12/27/10): no suspicious adenopathy along great vessels or in lateral neck on either side. No masses in thyroid bed. (01/24/12): no suspicious adenopathy along great vessels or in lateral neck on either side. No masses in thyroid bed. (08/11/13): no suspicious adenopathy along great vessels or in lateral neck on either side. No masses in thyroid bed. Thyroid nodule 10/20/2009 03/02/2010 Incisional hernia without me ntion of obstruction or gangrene 09/12/2005 08/12/2014 Symptomatic menopausal or fe male climacteric states 04/07/2003 10/15/2017 Diabetes mellitus type 2 03/02/200301/2014 Overview: *Type (): dx type 2 diabetes *Control hx Component Hemoglobin A1C Latest Ref Rng 4.0 - 6.0 % 01/17/2011 6.8 05/08/2011 7.2 07/24/2011 6.8 01/23/2012 6.7 07/27/2012 6.1 (H) 02/18/2013 6.4 (H) 08/08/2013 7.0 (H) 10/13/2013 7.1 (H) 02/17/14 7.3 * Eye hx (10/2008): no DM changes per Dr. Campoverde (07/2013): no DM changes per pt, exam Dr. Campoverde * Renal hx Component Albumin/Creat Ratio Latest Ref Rng 0 - 30 mg/g 04/03/2005 8 05/03/2006 8 03/26/2008 13 01/22/2009 18 02/16/2010 10 07/05/2010 9 05/08/2011 13 08/08/2013 9 * Vascular hx (11/12/13): no hx [place], stroke, Component Latest Ref Rng 02/18/2013 08/12/2013 10/13/2013 Triglyceride 30 - 149 mg/dL 114 123 126 Cholesterol 100 - 199 mg/dL 196 192 187 HDL Cholesterol >55 mg/dL 47 (L) 58 52 (L) VLDL Cholesterol 6 - 40 mg/dL 23 25 25 LDL Cholesterol 60 - 129 mg/dL 126 109 110 Fasting Time FASTING FASTING fasting TC:HDL Ratio 1.00 - 5.00 4.17 3.31 3.60 LDL:HDL Ratio 0.50 - 3.55 2.68 1.88 2.12 Non HDL Cholesterol 90 - 159 mg/dL 149 134 135 * Sleep (11/12/13): has obstructive sleep apnea, uses BiPAP since titration 04/07/13 * Exercise (11/12/13): not exercisnig * Medications (11/12/13): Victoza 1.8 mg daily, metformin 500 mg 2-1-1, * Physician (11/12/13): primary physician is Hayley Malone Morbid obesity 03/02/2003 07/15/2014 HYPERLIPIDEMIA NEC/NOS 06/10 documented as of this encounter (statuses as of 07/13/2023) [facility]11-02-2020 History of Past illness Narrative* Problem Noted Date Diagnosed Date Resolved Date Postoperative abdominal pain 07/12/2020 10/13/2020 Mild protein-calorie malnutrition 06/28/2020 06/29/2020 Infected prosthetic mesh of abdominal wall 06/20/2020 06/30/2020 Obesity, Class II, BMI 35-39.9 06/13/2019 08/16/2020 SBO (small bowel obstruction) 06/07/2019 08/16/2020 Morbid obesity 03/10/2019 06/13/2019 Abnormal cardiovascular stress test 09/11/2017 10/15/2017 Primary osteoarthritis of right hip 11/27/2016 08/18/2020 Trochanteric bursitis of right hip 11/27/2016 08/18/2020 Dyspnea, unspecified 03/08/2016 020 Angiomyolipoma of right kidney 01/11/2016 06/15/2016 Essential hypertension with goal blood pressure less than 140/90 12/13/2015 04/12/2017 Obstructive sleep apnea syndrome 12/13/2015 04/12/2017 Superficial skin infection 08/31/2015 0 03/13/2016 CKD stage 3 due to type 2 diabetes mellitus 02/06/2015 11/16/2018 Overview: Dr. Lilian Vance, nephrology BMI 45.0-49.9, adult 02/06/2015 020 Venous insufficiency 02/06/2015 017 DM type 2 causing CKD stage 3 09/21/2014 03/05/2019 Overview: Dr Landen Best, endocrinology Degenerative arthritis of hip 07/01/2014 08/16/2020 BMI 45.0-49.9, adult 03/31/2014 015 Diabetes mellitus type II, uncontrolled 11/25/2013 02/06/2015 BMI 40.0-44.9, adult 10/14/2013 014 Chest pain 09/13/2012 03/13/2016 Overview: Substernal pressure lasting ~5hrs, partially relieved with SLN. Significant risk factors for CAD (HTN, HLD, DM). EKG does to show ST changes. Initial CE at [facility] are supposedly negative. Prior stress test in 2010 was normal. DM well controlled. Currently low likelihood for ACS. - EKG - trend Donald - stress test vs [facility] S/P total knee replacement using cement 07/02/2012 07/15/2018 Degenerative arthritis of right knee 06/10/2012 08/12/2014 Allergic contact dermatitis due to metals 05/21/2012 08/16/2020 Sensorineural hearing loss, bilateral 07/19/2011 08/16/2020 Diverticulosis 08/23/2010 03/13/2016 Thyroid CA 02/21/2010 08/12/2014 Overview: * Surgery (12/15/09): total thyroidectomy, Dr. Jamey Ibrahim, [facility] * Path (10/29/09): FNA Atypical cells present in a background of cyst contents, suspicious for papillary thyroid carcinoma (12/15/09): single well-circumscribed nodule in the right inferior lobe, which measured 3.5 cm in greatest dimension. The nodule was extensively hemorrhagic and cystic with a rim of viable material which ranges in appearance from papillary architecture to follicular structures. There is no evidence of a higher grade component. There is no definitive lymphovascular space invasion identified. In some areas, the tumor cells have oncocytic cytoplasm, however, the cells do not meet criteria for tall-cell variant of papillary thyroid carcinoma. * SIDDIQI (02/17/10): Rx 131-Iodine 102.4 mCi, Thyrogen-stim * Scan (02/24/10): post-treatment scan (Thyrogen-stim) shows uptake in left neck, also in liver area. SPECT images show one focus of uptake in lateral segment of the left lobe of the liver, one in the medial segment of the left lobe of liver, and one in the posterior segment of the right lobe of the liver. (05/03/11): Thyrogen stim 123-Iodine scan negative * Thyroglobulin Component Thyroglobulin TG Antibody Screen Stimulation Latest Ref Rng 0.8 - 49.0 ng/mL <14.4 IU/mL 11/05/2009 75.7 (H) 1.0 01/18/2010 <0.2 (L) 1.1 02/16/2010 0.3 (L) 1.0 Thyrogen 07/05/2010 <0.2 (L) 1.3 12/27/2010 <0.2 (L) 1.3 05/08/2011 <0.2 (L) 1.1 Thyrogen 07/24/2011 <0.2 (L) 1.5 01/23/2012 <0.2 (L) 1.0 07/27/2012 <0.2 (L) <1.0 02/18/2013 <0.2 (L) <1.0 08/12/2013 <0.2 (L) <1.0 * mRNA (11/03/09): TSH-R mRNA=1.7 ng/ug (11/30/09): TSH-R mRNA=1.8 ng/ug (01/18/10): no TSH-R mRNA assay postop (07/05/10): TSH-R mRNA <1.0 ng/ug (12/27/10): TSH-R mRNA <1.0 ng/ug * Ultrasound (01/18/10): no suspicious adenopathy along great vessels or in lateral neck on either side. No masses in thyroid bed. (12/27/10): no suspicious adenopathy along great vessels or in lateral neck on either side. No masses in thyroid bed. (01/24/12): no suspicious adenopathy along great vessels or in lateral neck on either side. No masses in thyroid bed. (08/11/13): no suspicious adenopathy along great vessels or in lateral neck on either side. No masses in thyroid bed. Thyroid nodule 10/20/2009 03/02/2010 Incisional hernia without me ntion of obstruction or gangrene 09/12/2005 08/12/2014 Symptomatic menopausal or fe male climacteric states 04/07/2003 10/15/2017 Diabetes mellitus type 2 03/02/200301/2014 Overview: *Type (): dx type 2 diabetes *Control hx Component Hemoglobin A1C Latest Ref Rng 4.0 - 6.0 % 01/17/2011 6.8 05/08/2011 7.2 07/24/2011 6.8 01/23/2012 6.7 07/27/2012 6.1 (H) 02/18/2013 6.4 (H) 08/08/2013 7.0 (H) 10/13/2013 7.1 (H) 02/17/14 7.3 * Eye hx (10/2008): no DM changes per Dr. Campoverde (07/2013): no DM changes per pt, exam Dr. Campoverde * Renal hx Component Albumin/Creat Ratio Latest Ref Rng 0 - 30 mg/g 04/03/2005 8 05/03/2006 8 03/26/2008 13 01/22/2009 18 02/16/2010 10 07/05/2010 9 05/08/2011 13 08/08/2013 9 * Vascular hx (11/12/13): no hx [place], stroke, Component Latest Ref Rng 02/18/2013 08/12/2013 10/13/2013 Triglyceride 30 - 149 mg/dL 114 123 126 Cholesterol 100 - 199 mg/dL 196 192 187 HDL Cholesterol >55 mg/dL 47 (L) 58 52 (L) VLDL Cholesterol 6 - 40 mg/dL 23 25 25 LDL Cholesterol 60 - 129 mg/dL 126 109 110 Fasting Time FASTING FASTING fasting TC:HDL Ratio 1.00 - 5.00 4.17 3.31 3.60 LDL:HDL Ratio 0.50 - 3.55 2.68 1.88 2.12 Non HDL Cholesterol 90 - 159 mg/dL 149 134 135 * Sleep (11/12/13): has obstructive sleep apnea, uses BiPAP since titration 04/07/13 * Exercise (11/12/13): not exercisnig * Medications (11/12/13): Victoza 1.8 mg daily, metformin 500 mg 2-1-1, * Physician (11/12/13): primary physician is Hayley Malone Morbid obesity 03/02/2003 07/15/2014 HYPERLIPIDEMIA NEC/NOS 06/10 documented as of this encounter (statuses as of 07/17/2023) [facility]11-02-2020 History of Past illness Narrative* Problem Noted Date Diagnosed Date Resolved Date Postoperative abdominal pain 07/12/2020 10/13/2020 Mild protein-calorie malnutrition 06/28/2020 06/29/2020 Infected prosthetic mesh of abdominal wall 06/20/2020 06/30/2020 Obesity, Class II, BMI 35-39.9 06/13/2019 08/16/2020 SBO (small bowel obstruction) 06/07/2019 08/16/2020 Morbid obesity 03/10/2019 06/13/2019 Abnormal cardiovascular stress test 09/11/2017 10/15/2017 Primary osteoarthritis of right hip 11/27/2016 08/18/2020 Trochanteric bursitis of right hip 11/27/2016 08/18/2020 Dyspnea, unspecified 03/08/2016 020 Angiomyolipoma of right kidney 01/11/2016 06/15/2016 Essential hypertension with goal blood pressure less than 140/90 12/13/2015 04/12/2017 Obstructive sleep apnea syndrome 12/13/2015 04/12/2017 Superficial skin infection 08/31/2015 0 03/13/2016 CKD stage 3 due to type 2 diabetes mellitus 02/06/2015 11/16/2018 Overview: Dr. Lilian Vance, nephrology BMI 45.0-49.9, adult 02/06/2015 020 Venous insufficiency 02/06/2015 017 DM type 2 causing CKD stage 3 09/21/2014 03/05/2019 Overview: Dr Landen Best, endocrinology Degenerative arthritis of hip 07/01/2014 08/16/2020 BMI 45.0-49.9, adult 03/31/2014 015 Diabetes mellitus type II, uncontrolled 11/25/2013 02/06/2015 BMI 40.0-44.9, adult 10/14/2013 014 Chest pain 09/13/2012 03/13/2016 Overview: Substernal pressure lasting ~5hrs, partially relieved with SLN. Significant risk factors for CAD (HTN, HLD, DM). EKG does to show ST changes. Initial CE at [facility] are supposedly negative. Prior stress test in 2010 was normal. DM well controlled. Currently low likelihood for ACS. - EKG - trend [facility] - stress test vs [facility] S/P total knee replacement using cement 07/02/2012 07/15/2018 Degenerative arthritis of right knee 06/10/2012 08/12/2014 Allergic contact dermatitis due to metals 05/21/2012 08/16/2020 Sensorineural hearing loss, bilateral 07/19/2011 08/16/2020 Diverticulosis 08/23/2010 03/13/2016 Thyroid CA 02/21/2010 08/12/2014 Overview: * Surgery (12/15/09): total thyroidectomy, Dr. Jamey Ibrahim, [facility] * Path (10/29/09): FNA Atypical cells present in a background of cyst contents, suspicious for papillary thyroid carcinoma (12/15/09): single well-circumscribed nodule in the right inferior lobe, which measured 3.5 cm in greatest dimension. The nodule was extensively hemorrhagic and cystic with a rim of viable material which ranges in appearance from papillary architecture to follicular structures. There is no evidence of a higher grade component. There is no definitive lymphovascular space invasion identified. In some areas, the tumor cells have oncocytic cytoplasm, however, the cells do not meet criteria for tall-cell variant of papillary thyroid carcinoma. * SIDDIQI (02/17/10): Rx 131-Iodine 102.4 mCi, Thyrogen-stim * Scan (02/24/10): post-treatment scan (Thyrogen-stim) shows uptake in left neck, also in liver area. SPECT images show one focus of uptake in lateral segment of the left lobe of the liver, one in the medial segment of the left lobe of liver, and one in the posterior segment of the right lobe of the liver. (05/03/11): Thyrogen stim 123-Iodine scan negative * Thyroglobulin Component Thyroglobulin TG Antibody Screen Stimulation Latest Ref Rng 0.8 - 49.0 ng/mL <14.4 IU/mL 11/05/2009 75.7 (H) 1.0 01/18/2010 <0.2 (L) 1.1 02/16/2010 0.3 (L) 1.0 Thyrogen 07/05/2010 <0.2 (L) 1.3 12/27/2010 <0.2 (L) 1.3 05/08/2011 <0.2 (L) 1.1 Thyrogen 07/24/2011 <0.2 (L) 1.5 01/23/2012 <0.2 (L) 1.0 07/27/2012 <0.2 (L) <1.0 02/18/2013 <0.2 (L) <1.0 08/12/2013 <0.2 (L) <1.0 * mRNA (11/03/09): TSH-R mRNA=1.7 ng/ug (11/30/09): TSH-R mRNA=1.8 ng/ug (01/18/10): no TSH-R mRNA assay postop (07/05/10): TSH-R mRNA <1.0 ng/ug (12/27/10): TSH-R mRNA <1.0 ng/ug * Ultrasound (01/18/10): no suspicious adenopathy along great vessels or in lateral neck on either side. No masses in thyroid bed. (12/27/10): no suspicious adenopathy along great vessels or in lateral neck on either side. No masses in thyroid bed. (01/24/12): no suspicious adenopathy along great vessels or in lateral neck on either side. No masses in thyroid bed. (08/11/13): no suspicious adenopathy along great vessels or in lateral neck on either side. No masses in thyroid bed. Thyroid nodule 10/20/2009 03/02/2010 Incisional hernia without me ntion of obstruction or gangrene 09/12/2005 08/12/2014 Symptomatic menopausal or fe male climacteric states 04/07/2003 10/15/2017 Diabetes mellitus type 2 03/02/200301/2014 Overview: *Type (): dx type 2 diabetes *Control hx Component Hemoglobin A1C Latest Ref Rng 4.0 - 6.0 % 01/17/2011 6.8 05/08/2011 7.2 07/24/2011 6.8 01/23/2012 6.7 07/27/2012 6.1 (H) 02/18/2013 6.4 (H) 08/08/2013 7.0 (H) 10/13/2013 7.1 (H) 02/17/14 7.3 * Eye hx (10/2008): no DM changes per Dr. Campoverde (07/2013): no DM changes per pt, exam Dr. Campoverde * Renal hx Component Albumin/Creat Ratio Latest Ref Rng 0 - 30 mg/g 04/03/2005 8 05/03/2006 8 03/26/2008 13 01/22/2009 18 02/16/2010 10 07/05/2010 9 05/08/2011 13 08/08/2013 9 * Vascular hx (11/12/13): no hx [place], stroke, Component Latest Ref Rng 02/18/2013 08/12/2013 10/13/2013 Triglyceride 30 - 149 mg/dL 114 123 126 Cholesterol 100 - 199 mg/dL 196 192 187 HDL Cholesterol >55 mg/dL 47 (L) 58 52 (L) VLDL Cholesterol 6 - 40 mg/dL 23 25 25 LDL Cholesterol 60 - 129 mg/dL 126 109 110 Fasting Time FASTING FASTING fasting TC:HDL Ratio 1.00 - 5.00 4.17 3.31 3.60 LDL:HDL Ratio 0.50 - 3.55 2.68 1.88 2.12 Non HDL Cholesterol 90 - 159 mg/dL 149 134 135 * Sleep (11/12/13): has obstructive sleep apnea, uses BiPAP since titration 04/07/13 * Exercise (11/12/13): not exercisnig * Medications (11/12/13): Victoza 1.8 mg daily, metformin 500 mg 2-1-1, * Physician (11/12/13): primary physician is Hayley Malone Morbid obesity 03/02/2003 07/15/2014 HYPERLIPIDEMIA NEC/NOS 06/10 documented as of this encounter (statuses as of 07/25/2023) [facility]11-[facility]2020 History of Past illness Narrative* Problem Noted Date Diagnosed Date Resolved Date Postoperative abdominal pain 07/12/2020 10/13/2020 Mild protein-calorie malnutrition 06/28/2020 06/29/2020 Infected prosthetic mesh of abdominal wall 06/20/2020 06/30/2020 Obesity, Class II, BMI 35-39.9 06/13/2019 08/16/2020 SBO (small bowel obstruction) 06/07/2019 08/16/2020 Morbid obesity 03/10/2019 06/13/2019 Abnormal cardiovascular stress test 09/11/2017 10/15/2017 Primary osteoarthritis of right hip 11/27/2016 08/18/2020 Trochanteric bursitis of right hip 11/27/2016 08/18/2020 Dyspnea, unspecified 03/08/2016 020 Angiomyolipoma of right kidney 01/11/2016 06/15/2016 Essential hypertension with goal blood pressure less than 140/90 12/13/2015 04/12/2017 Obstructive sleep apnea syndrome 12/13/2015 04/12/2017 Superficial skin infection 08/31/2015 0 03/13/2016 CKD stage 3 due to type 2 diabetes mellitus 02/06/2015 11/16/2018 Overview: Dr. Lilian Vance, nephrology BMI 45.0-49.9, adult 02/06/2015 020 Venous insufficiency 02/06/2015 017 DM type 2 causing CKD stage 3 09/21/2014 03/05/2019 Overview: Dr Landen Best, endocrinology Degenerative arthritis of hip 07/01/2014 08/16/2020 BMI 45.0-49.9, adult 03/31/2014 015 Diabetes mellitus type II, uncontrolled 11/25/2013 02/06/2015 BMI 40.0-44.9, adult 10/14/2013 014 Chest pain 09/13/2012 03/13/2016 Overview: Substernal pressure lasting ~5hrs, partially relieved with SLN. Significant risk factors for CAD (HTN, HLD, DM). EKG does to show ST changes. Initial CE at [facility] are supposedly negative. Prior stress test in 2010 was normal. DM well controlled. Currently low likelihood for ACS. - EKG - trend [facility] - stress test vs [facility] S/P total knee replacement using cement 07/02/2012 07/15/2018 Degenerative arthritis of right knee 06/10/2012 08/12/2014 Allergic contact dermatitis due to metals 05/21/2012 08/16/2020 Sensorineural hearing loss, bilateral 07/19/2011 08/16/2020 Diverticulosis 08/23/2010 03/13/2016 Thyroid CA 02/21/2010 08/12/2014 Overview: * Surgery (12/15/09): total thyroidectomy, Dr. Jamey Ibrahim, [facility] * Path (10/29/09): FNA Atypical cells present in a background of cyst contents, suspicious for papillary thyroid carcinoma (12/15/09): single well-circumscribed nodule in the right inferior lobe, which measured 3.5 cm in greatest dimension. The nodule was extensively hemorrhagic and cystic with a rim of viable material which ranges in appearance from papillary architecture to follicular structures. There is no evidence of a higher grade component. There is no definitive lymphovascular space invasion identified. In some areas, the tumor cells have oncocytic cytoplasm, however, the cells do not meet criteria for tall-cell variant of papillary thyroid carcinoma. * SIDDIQI (02/17/10): Rx 131-Iodine 102.4 mCi, Thyrogen-stim * Scan (02/24/10): post-treatment scan (Thyrogen-stim) shows uptake in left neck, also in liver area. SPECT images show one focus of uptake in lateral segment of the left lobe of the liver, one in the medial segment of the left lobe of liver, and one in the posterior segment of the right lobe of the liver. (05/03/11): Thyrogen stim 123-Iodine scan negative * Thyroglobulin Component Thyroglobulin TG Antibody Screen Stimulation Latest Ref Rng 0.8 - 49.0 ng/mL <14.4 IU/mL 11/05/2009 75.7 (H) 1.0 01/18/2010 <0.2 (L) 1.1 02/16/2010 0.3 (L) 1.0 Thyrogen 07/05/2010 <0.2 (L) 1.3 12/27/2010 <0.2 (L) 1.3 05/08/2011 <0.2 (L) 1.1 Thyrogen 07/24/2011 <0.2 (L) 1.5 01/23/2012 <0.2 (L) 1.0 07/27/2012 <0.2 (L) <1.0 02/18/2013 <0.2 (L) <1.0 08/12/2013 <0.2 (L) <1.0 * mRNA (11/03/09): TSH-R mRNA=1.7 ng/ug (11/30/09): TSH-R mRNA=1.8 ng/ug (01/18/10): no TSH-R mRNA assay postop (07/05/10): TSH-R mRNA <1.0 ng/ug (12/27/10): TSH-R mRNA <1.0 ng/ug * Ultrasound (01/18/10): no suspicious adenopathy along great vessels or in lateral neck on either side. No masses in thyroid bed. (12/27/10): no suspicious adenopathy along great vessels or in lateral neck on either side. No masses in thyroid bed. (01/24/12): no suspicious adenopathy along great vessels or in lateral neck on either side. No masses in thyroid bed. (08/11/13): no suspicious adenopathy along great vessels or in lateral neck on either side. No masses in thyroid bed. Thyroid nodule 10/20/2009 03/02/2010 Incisional hernia without me ntion of obstruction or gangrene 09/12/2005 08/12/2014 Symptomatic menopausal or fe male climacteric states 04/07/2003 10/15/2017 Diabetes mellitus type 2 03/02/200301/2014 Overview: *Type (): dx type 2 diabetes *Control hx Component Hemoglobin A1C Latest Ref Rng 4.0 - 6.0 % 01/17/2011 6.8 05/08/2011 7.2 07/24/2011 6.8 01/23/2012 6.7 07/27/2012 6.1 (H) 02/18/2013 6.4 (H) 08/08/2013 7.0 (H) 10/13/2013 7.1 (H) 6/10/14 7.3 * Eye hx (10/2008): no DM changes per Dr. Campoverde (07/2013): no DM changes per pt, exam Dr. Campoverde * Renal hx Component Albumin/Creat Ratio Latest Ref Rng 0 - 30 mg/g 04/03/2005 8 05/03/2006 8 03/26/2008 13 01/22/2009 18 02/16/2010 10 07/05/2010 9 05/08/2011 13 08/08/2013 9 * Vascular hx (11/12/13): no hx [place], stroke, Component Latest Ref Rng 02/18/2013 08/12/2013 10/13/2013 Triglyceride 30 - 149 mg/dL 114 123 126 Cholesterol 100 - 199 mg/dL 196 192 187 HDL Cholesterol >55 mg/dL 47 (L) 58 52 (L) VLDL Cholesterol 6 - 40 mg/dL 23 25 25 LDL Cholesterol 60 - 129 mg/dL 126 109 110 Fasting Time FASTING FASTING fasting TC:HDL Ratio 1.00 - 5.00 4.17 3.31 3.60 LDL:HDL Ratio 0.50 - 3.55 2.68 1.88 2.12 Non HDL Cholesterol 90 - 159 mg/dL 149 134 135 * Sleep (11/12/13): has obstructive sleep apnea, uses BiPAP since titration 04/07/13 * Exercise (11/12/13): not exercisnig * Medications (11/12/13): Victoza 1.8 mg daily, metformin 500 mg 2-1-1, * Physician (11/12/13): primary physician is Hayley Malone Morbid obesity 03/02/2003 07/15/2014 HYPERLIPIDEMIA NEC/NOS 06/10 documented as of this encounter (statuses as of 07/26/2023) [facility] History of Past illness Narrative* Problem Noted Date Diagnosed Date Resolved Date Postoperative abdominal pain 07/12/2020 10/13/2020 Mild protein-calorie malnutrition 06/28/2020 06/29/2020 Infected prosthetic mesh of abdominal wall 06/20/2020 06/30/2020 Obesity, Class II, BMI 35-39.9 06/13/2019 08/16/2020 SBO (small bowel obstruction) 06/07/2019 08/16/2020 Morbid obesity 03/10/2019 06/13/2019 Abnormal cardiovascular stress test 09/11/2017 10/15/2017 Primary osteoarthritis of right hip 11/27/2016 08/18/2020 Trochanteric bursitis of right hip 11/27/2016 08/18/2020 Dyspnea, unspecified 03/08/2016 020 Angiomyolipoma of right kidney 01/11/2016 06/15/2016 Essential hypertension with goal blood pressure less than 140/90 12/13/2015 04/12/2017 Obstructive sleep apnea syndrome 12/13/2015 04/12/2017 Superficial skin infection 08/31/2015 0 03/13/2016 CKD stage 3 due to type 2 diabetes mellitus 02/06/2015 11/16/2018 Overview: Dr. Lilian Vance, nephrology BMI 45.0-49.9, adult 02/06/2015 020 Venous insufficiency 02/06/2015 017 DM type 2 causing CKD stage 3 09/21/2014 03/05/2019 Overview: Dr Landen Best, endocrinology Degenerative arthritis of hip 07/01/2014 08/16/2020 BMI 45.0-49.9, adult 03/31/2014 015 Diabetes mellitus type II, uncontrolled 11/25/2013 02/06/2015 BMI 40.0-44.9, adult 10/14/2013 014 Chest pain 09/13/2012 03/13/2016 Overview: Substernal pressure lasting ~5hrs, partially relieved with SLN. Significant risk factors for CAD (HTN, HLD, DM). EKG does to show ST changes. Initial CE at [facility] are supposedly negative. Prior stress test in 2010 was normal. DM well controlled. Currently low likelihood for ACS. - EKG - trend [facility] - stress test vs [facility] S/P total knee replacement using cement 07/02/2012 07/15/2018 Degenerative arthritis of right knee 06/10/2012 08/12/2014 Allergic contact dermatitis due to metals 05/21/2012 08/16/2020 Sensorineural hearing loss, bilateral 07/19/2011 08/16/2020 Diverticulosis 08/23/2010 03/13/2016 Thyroid CA 02/21/2010 08/12/2014 Overview: * Surgery (12/15/09): total thyroidectomy, Dr. Jamey Ibrahim, [facility] * Path (10/29/09): FNA Atypical cells present in a background of cyst contents, suspicious for papillary thyroid carcinoma (12/15/09): single well-circumscribed nodule in the right inferior lobe, which measured 3.5 cm in greatest dimension. The nodule was extensively hemorrhagic and cystic with a rim of viable material which ranges in appearance from papillary architecture to follicular structures. There is no evidence of a higher grade component. There is no definitive lymphovascular space invasion identified. In some areas, the tumor cells have oncocytic cytoplasm, however, the cells do not meet criteria for tall-cell variant of papillary thyroid carcinoma. * SIDDIQI (02/17/10): Rx 131-Iodine 102.4 mCi, Thyrogen-stim * Scan (02/24/10): post-treatment scan (Thyrogen-stim) shows uptake in left neck, also in liver area. SPECT images show one focus of uptake in lateral segment of the left lobe of the liver, one in the medial segment of the left lobe of liver, and one in the posterior segment of the right lobe of the liver. (05/03/11): Thyrogen stim 123-Iodine scan negative * Thyroglobulin Component Thyroglobulin TG Antibody Screen Stimulation Latest Ref Rng 0.8 - 49.0 ng/mL <14.4 IU/mL 11/05/2009 75.7 (H) 1.0 01/18/2010 <0.2 (L) 1.1 02/16/2010 0.3 (L) 1.0 Thyrogen 07/05/2010 <0.2 (L) 1.3 12/27/2010 <0.2 (L) 1.3 05/08/2011 <0.2 (L) 1.1 Thyrogen 07/24/2011 <0.2 (L) 1.5 01/23/2012 <0.2 (L) 1.0 07/27/2012 <0.2 (L) <1.0 02/18/2013 <0.2 (L) <1.0 08/12/2013 <0.2 (L) <1.0 * mRNA (11/03/09): TSH-R mRNA=1.7 ng/ug (11/30/09): TSH-R mRNA=1.8 ng/ug (01/18/10): no TSH-R mRNA assay postop (07/05/10): TSH-R mRNA <1.0 ng/ug (12/27/10): TSH-R mRNA <1.0 ng/ug * Ultrasound (01/18/10): no suspicious adenopathy along great vessels or in lateral neck on either side. No masses in thyroid bed. (12/27/10): no suspicious adenopathy along great vessels or in lateral neck on either side. No masses in thyroid bed. (01/24/12): no suspicious adenopathy along great vessels or in lateral neck on either side. No masses in thyroid bed. (08/11/13): no suspicious adenopathy along great vessels or in lateral neck on either side. No masses in thyroid bed. Thyroid nodule 10/20/2009 03/02/2010 Incisional hernia without me ntion of obstruction or gangrene 09/12/2005 08/12/2014 Symptomatic menopausal or fe male climacteric states 04/07/2003 10/15/2017 Diabetes mellitus type 2 03/02/200301/2014 Overview: *Type (): dx type 2 diabetes *Control hx Component Hemoglobin A1C Latest Ref Rng 4.0 - 6.0 % 01/17/2011 6.8 05/08/2011 7.2 07/24/2011 6.8 01/23/2012 6.7 07/27/2012 6.1 (H) 02/18/2013 6.4 (H) 08/08/2013 7.0 (H) 10/13/2013 7.1 (H) 02/17/14 7.3 * Eye hx (10/2008): no DM changes per Dr. Campoverde (07/2013): no DM changes per pt, exam Dr. Campoverde * Renal hx Component Albumin/Creat Ratio Latest Ref Rng 0 - 30 mg/g 04/03/2005 8 05/03/2006 8 03/26/2008 13 01/22/2009 18 02/16/2010 10 07/05/2010 9 05/08/2011 13 08/08/2013 9 * Vascular hx (11/12/13): no hx [place], stroke, Component Latest Ref Rng 02/18/2013 08/12/2013 10/13/2013 Triglyceride 30 - 149 mg/dL 114 123 126 Cholesterol 100 - 199 mg/dL 196 192 187 HDL Cholesterol >55 mg/dL 47 (L) 58 52 (L) VLDL Cholesterol 6 - 40 mg/dL 23 25 25 LDL Cholesterol 60 - 129 mg/dL 126 109 110 Fasting Time FASTING FASTING fasting TC:HDL Ratio 1.00 - 5.00 4.17 3.31 3.60 LDL:HDL Ratio 0.50 - 3.55 2.68 1.88 2.12 Non HDL Cholesterol 90 - 159 mg/dL 149 134 135 * Sleep (11/12/13): has obstructive sleep apnea, uses BiPAP since titration 04/07/13 * Exercise (11/12/13): not exercisnig * Medications (11/12/13): Victoza 1.8 mg daily, metformin 500 mg 2-1-1, * Physician (11/12/13): primary physician is Hayley Malone Morbid obesity 03/02/2003 07/15/2014 HYPERLIPIDEMIA NEC/NOS 06/10 documented as of this encounter (statuses as of 07/27/2023) [facility]11-02-2020 History of Past illness Narrative* Problem Noted Date Diagnosed Date Resolved Date Postoperative abdominal pain 07/12/2020 10/13/2020 Mild protein-calorie malnutrition 06/28/2020 06/29/2020 Infected prosthetic mesh of abdominal wall 06/20/2020 06/30/2020 Obesity, Class II, BMI 35-39.9 06/13/2019 08/16/2020 SBO (small bowel obstruction) 06/07/2019 08/16/2020 Morbid obesity 03/10/2019 06/13/2019 Abnormal cardiovascular stress test 09/11/2017 10/15/2017 Primary osteoarthritis of right hip 11/27/2016 08/18/2020 Trochanteric bursitis of right hip 11/27/2016 08/18/2020 Dyspnea, unspecified 03/08/2016 020 Angiomyolipoma of right kidney 01/11/2016 06/15/2016 Essential hypertension with goal blood pressure less than 140/90 12/13/2015 04/12/2017 Obstructive sleep apnea syndrome 12/13/2015 04/12/2017 Superficial skin infection 08/31/2015 0 03/13/2016 CKD stage 3 due to type 2 diabetes mellitus 02/06/2015 11/16/2018 Overview: Dr. Lilian Vance, nephrology BMI 45.0-49.9, adult 02/06/2015 020 Venous insufficiency 02/06/2015 017 DM type 2 causing CKD stage 3 09/21/2014 03/05/2019 Overview: Dr Landen Best, endocrinology Degenerative arthritis of hip 07/01/2014 08/16/2020 BMI 45.0-49.9, adult 03/31/2014 015 Diabetes mellitus type II, uncontrolled 11/25/2013 02/06/2015 BMI 40.0-44.9, adult 10/14/2013 014 Chest pain 09/13/2012 03/13/2016 Overview: Substernal pressure lasting ~5hrs, partially relieved with SLN. Significant risk factors for CAD (HTN, HLD, DM). EKG does to show ST changes. Initial CE at [facility] are supposedly negative. Prior stress test in 2010 was normal. DM well controlled. Currently low likelihood for ACS. - EKG - trend Donald - stress test vs [facility] S/P total knee replacement using cement 07/02/2012 07/15/2018 Degenerative arthritis of right knee 06/10/2012 08/12/2014 Allergic contact dermatitis due to metals 05/21/2012 08/16/2020 Sensorineural hearing loss, bilateral 07/19/2011 08/16/2020 Diverticulosis 08/23/2010 03/13/2016 Thyroid CA 02/21/2010 08/12/2014 Overview: * Surgery (12/15/09): total thyroidectomy, Dr. Jamey Ibrahim, [facility] * Path (10/29/09): FNA Atypical cells present in a background of cyst contents, suspicious for papillary thyroid carcinoma (12/15/09): single well-circumscribed nodule in the right inferior lobe, which measured 3.5 cm in greatest dimension. The nodule was extensively hemorrhagic and cystic with a rim of viable material which ranges in appearance from papillary architecture to follicular structures. There is no evidence of a higher grade component. There is no definitive lymphovascular space invasion identified. In some areas, the tumor cells have oncocytic cytoplasm, however, the cells do not meet criteria for tall-cell variant of papillary thyroid carcinoma. * SIDDIQI (02/17/10): Rx 131-Iodine 102.4 mCi, Thyrogen-stim * Scan (02/24/10): post-treatment scan (Thyrogen-stim) shows uptake in left neck, also in liver area. SPECT images show one focus of uptake in lateral segment of the left lobe of the liver, one in the medial segment of the left lobe of liver, and one in the posterior segment of the right lobe of the liver. (05/03/11): Thyrogen stim 123-Iodine scan negative * Thyroglobulin Component Thyroglobulin TG Antibody Screen Stimulation Latest Ref Rng 0.8 - 49.0 ng/mL <14.4 IU/mL 11/05/2009 75.7 (H) 1.0 01/18/2010 <0.2 (L) 1.1 02/16/2010 0.3 (L) 1.0 Thyrogen 07/05/2010 <0.2 (L) 1.3 12/27/2010 <0.2 (L) 1.3 05/08/2011 <0.2 (L) 1.1 Thyrogen 07/24/2011 <0.2 (L) 1.5 01/23/2012 <0.2 (L) 1.0 07/27/2012 <0.2 (L) <1.0 02/18/2013 <0.2 (L) <1.0 08/12/2013 <0.2 (L) <1.0 * mRNA (11/03/09): TSH-R mRNA=1.7 ng/ug (11/30/09): TSH-R mRNA=1.8 ng/ug (01/18/10): no TSH-R mRNA assay postop (07/05/10): TSH-R mRNA <1.0 ng/ug (12/27/10): TSH-R mRNA <1.0 ng/ug * Ultrasound (01/18/10): no suspicious adenopathy along great vessels or in lateral neck on either side. No masses in thyroid bed. (12/27/10): no suspicious adenopathy along great vessels or in lateral neck on either side. No masses in thyroid bed. (01/24/12): no suspicious adenopathy along great vessels or in lateral neck on either side. No masses in thyroid bed. (08/11/13): no suspicious adenopathy along great vessels or in lateral neck on either side. No masses in thyroid bed. Thyroid nodule 10/20/2009 03/02/2010 Incisional hernia without me ntion of obstruction or gangrene 09/12/2005 08/12/2014 Symptomatic menopausal or fe male climacteric states 04/07/2003 10/15/2017 Diabetes mellitus type 2 03/02/200301/2014 Overview: *Type (): dx type 2 diabetes *Control hx Component Hemoglobin A1C Latest Ref Rng 4.0 - 6.0 % 01/17/2011 6.8 05/08/2011 7.2 07/24/2011 6.8 01/23/2012 6.7 07/27/2012 6.1 (H) 02/18/2013 6.4 (H) 08/08/2013 7.0 (H) 10/13/2013 7.1 (H) 02/17/14 7.3 * Eye hx (10/2008): no DM changes per Dr. Campoverde (07/2013): no DM changes per pt, exam Dr. Campoverde * Renal hx Component Albumin/Creat Ratio Latest Ref Rng 0 - 30 mg/g 04/03/2005 8 05/03/2006 8 03/26/2008 13 01/22/2009 18 02/16/2010 10 07/05/2010 9 05/08/2011 13 08/08/2013 9 * Vascular hx (11/12/13): no hx [place], stroke, Component Latest Ref Rng 02/18/2013 08/12/2013 10/13/2013 Triglyceride 30 - 149 mg/dL 114 123 126 Cholesterol 100 - 199 mg/dL 196 192 187 HDL Cholesterol >55 mg/dL 47 (L) 58 52 (L) VLDL Cholesterol 6 - 40 mg/dL 23 25 25 LDL Cholesterol 60 - 129 mg/dL 126 109 110 Fasting Time FASTING FASTING fasting TC:HDL Ratio 1.00 - 5.00 4.17 3.31 3.60 LDL:HDL Ratio 0.50 - 3.55 2.68 1.88 2.12 Non HDL Cholesterol 90 - 159 mg/dL 149 134 135 * Sleep (11/12/13): has obstructive sleep apnea, uses BiPAP since titration 04/07/13 * Exercise (11/12/13): not exercisnig * Medications (11/12/13): Victoza 1.8 mg daily, metformin 500 mg 2-1-1, * Physician (11/12/13): primary physician is Hayley Malone Morbid obesity 03/02/2003 07/15/2014 HYPERLIPIDEMIA NEC/NOS 06/10 documented as of this encounter (statuses as of 07/30/2023) [facility]11-02-2020 History of Past illness Narrative* Problem Noted Date Diagnosed Date Resolved Date Postoperative abdominal pain 07/12/2020 10/13/2020 Mild protein-calorie malnutrition 06/28/2020 06/29/2020 Infected prosthetic mesh of abdominal wall 06/20/2020 06/30/2020 Obesity, Class II, BMI 35-39.9 06/13/2019 08/16/2020 SBO (small bowel obstruction) 06/07/2019 08/16/2020 Morbid obesity 03/10/2019 06/13/2019 Abnormal cardiovascular stress test 09/11/2017 10/15/2017 Primary osteoarthritis of right hip 11/27/2016 08/18/2020 Trochanteric bursitis of right hip 11/27/2016 08/18/2020 Dyspnea, unspecified 03/08/2016 020 Angiomyolipoma of right kidney 01/11/2016 06/15/2016 Essential hypertension with goal blood pressure less than 140/90 12/13/2015 04/12/2017 Obstructive sleep apnea syndrome 12/13/2015 04/12/2017 Superficial skin infection 08/31/2015 0 03/13/2016 CKD stage 3 due to type 2 diabetes mellitus 02/06/2015 11/16/2018 Overview: Dr. Lilian Vance, nephrology BMI 45.0-49.9, adult 02/06/2015 020 Venous insufficiency 02/06/2015 017 DM type 2 causing CKD stage 3 09/21/2014 03/05/2019 Overview: Dr Landen Best, endocrinology Degenerative arthritis of hip 07/01/2014 08/16/2020 BMI 45.0-49.9, adult 03/31/2014 015 Diabetes mellitus type II, uncontrolled 11/25/2013 02/06/2015 BMI 40.0-44.9, adult 10/14/2013 014 Chest pain 09/13/2012 03/13/2016 Overview: Substernal pressure lasting ~5hrs, partially relieved with SLN. Significant risk factors for CAD (HTN, HLD, DM). EKG does to show ST changes. Initial CE at [facility] are supposedly negative. Prior stress test in 2010 was normal. DM well controlled. Currently low likelihood for ACS. - EKG - trend [facility] - stress test vs [facility] S/P total knee replacement using cement 07/02/2012 07/15/2018 Degenerative arthritis of right knee 06/10/2012 08/12/2014 Allergic contact dermatitis due to metals 05/21/2012 08/16/2020 Sensorineural hearing loss, bilateral 07/19/2011 08/16/2020 Diverticulosis 08/23/2010 03/13/2016 Thyroid CA 02/21/2010 08/12/2014 Overview: * Surgery (12/15/09): total thyroidectomy, Dr. Jamey Ibrahim, [facility] * Path (10/29/09): FNA Atypical cells present in a background of cyst contents, suspicious for papillary thyroid carcinoma (12/15/09): single well-circumscribed nodule in the right inferior lobe, which measured 3.5 cm in greatest dimension. The nodule was extensively hemorrhagic and cystic with a rim of viable material which ranges in appearance from papillary architecture to follicular structures. There is no evidence of a higher grade component. There is no definitive lymphovascular space invasion identified. In some areas, the tumor cells have oncocytic cytoplasm, however, the cells do not meet criteria for tall-cell variant of papillary thyroid carcinoma. * SIDDIQI (02/17/10): Rx 131-Iodine 102.4 mCi, Thyrogen-stim * Scan (02/24/10): post-treatment scan (Thyrogen-stim) shows uptake in left neck, also in liver area. SPECT images show one focus of uptake in lateral segment of the left lobe of the liver, one in the medial segment of the left lobe of liver, and one in the posterior segment of the right lobe of the liver. (05/03/11): Thyrogen stim 123-Iodine scan negative * Thyroglobulin Component Thyroglobulin TG Antibody Screen Stimulation Latest Ref Rng 0.8 - 49.0 ng/mL <14.4 IU/mL 11/05/2009 75.7 (H) 1.0 01/18/2010 <0.2 (L) 1.1 02/16/2010 0.3 (L) 1.0 Thyrogen 07/05/2010 <0.2 (L) 1.3 12/27/2010 <0.2 (L) 1.3 05/08/2011 <0.2 (L) 1.1 Thyrogen 07/24/2011 <0.2 (L) 1.5 01/23/2012 <0.2 (L) 1.0 07/27/2012 <0.2 (L) <1.0 02/18/2013 <0.2 (L) <1.0 08/12/2013 <0.2 (L) <1.0 * mRNA (11/03/09): TSH-R mRNA=1.7 ng/ug (11/30/09): TSH-R mRNA=1.8 ng/ug (01/18/10): no TSH-R mRNA assay postop (07/05/10): TSH-R mRNA <1.0 ng/ug (12/27/10): TSH-R mRNA <1.0 ng/ug * Ultrasound (01/18/10): no suspicious adenopathy along great vessels or in lateral neck on either side. No masses in thyroid bed. (12/27/10): no suspicious adenopathy along great vessels or in lateral neck on either side. No masses in thyroid bed. (01/24/12): no suspicious adenopathy along great vessels or in lateral neck on either side. No masses in thyroid bed. (08/11/13): no suspicious adenopathy along great vessels or in lateral neck on either side. No masses in thyroid bed. Thyroid nodule 10/20/2009 03/02/2010 Incisional hernia without me ntion of obstruction or gangrene 09/12/2005 08/12/2014 Symptomatic menopausal or fe male climacteric states 04/07/2003 10/15/2017 Diabetes mellitus type 2 03/02/200301/2014 Overview: *Type (): dx type 2 diabetes *Control hx Component Hemoglobin A1C Latest Ref Rng 4.0 - 6.0 % 01/17/2011 6.8 05/08/2011 7.2 07/24/2011 6.8 01/23/2012 6.7 07/27/2012 6.1 (H) 02/18/2013 6.4 (H) 08/08/2013 7.0 (H) 10/13/2013 7.1 (H) 02/17/14 7.3 * Eye hx (10/2008): no DM changes per Dr. Campoverde (07/2013): no DM changes per pt, exam Dr. Campoverde * Renal hx Component Albumin/Creat Ratio Latest Ref Rng 0 - 30 mg/g 04/03/2005 8 05/03/2006 8 03/26/2008 13 01/22/2009 18 02/16/2010 10 07/05/2010 9 05/08/2011 13 08/08/2013 9 * Vascular hx (11/12/13): no hx [place], stroke, Component Latest Ref Rng 02/18/2013 08/12/2013 10/13/2013 Triglyceride 30 - 149 mg/dL 114 123 126 Cholesterol 100 - 199 mg/dL 196 192 187 HDL Cholesterol >55 mg/dL 47 (L) 58 52 (L) VLDL Cholesterol 6 - 40 mg/dL 23 25 25 LDL Cholesterol 60 - 129 mg/dL 126 109 110 Fasting Time FASTING FASTING fasting TC:HDL Ratio 1.00 - 5.00 4.17 3.31 3.60 LDL:HDL Ratio 0.50 - 3.55 2.68 1.88 2.12 Non HDL Cholesterol 90 - 159 mg/dL 149 134 135 * Sleep (11/12/13): has obstructive sleep apnea, uses BiPAP since titration 04/07/13 * Exercise (11/12/13): not exercisnig * Medications (11/12/13): Victoza 1.8 mg daily, metformin 500 mg 2-1-1, * Physician (3/5/14): primary physician is Hayley Malone Morbid obesity 03/02/2003 07/15/2014 HYPERLIPIDEMIA NEC/NOS 06/10 documented as of this encounter (statuses as of 08/07/2023) [facility]11-[facility]2020 History of Past illness Narrative* Problem Noted Date Diagnosed Date Resolved Date Postoperative abdominal pain 07/12/2020 10/13/2020 Mild protein-calorie malnutrition 06/28/2020 06/29/2020 Infected prosthetic mesh of abdominal wall 06/20/2020 06/30/2020 Obesity, Class II, BMI 35-39.9 06/13/2019 08/16/2020 SBO (small bowel obstruction) 06/07/2019 08/16/2020 Morbid obesity 03/10/2019 06/13/2019 Abnormal cardiovascular stress test 09/11/2017 10/15/2017 Primary osteoarthritis of right hip 11/27/2016 08/18/2020 Trochanteric bursitis of right hip 11/27/2016 08/18/2020 Dyspnea, unspecified 03/08/2016 020 Angiomyolipoma of right kidney 01/11/2016 06/15/2016 Essential hypertension with goal blood pressure less than 140/90 12/13/2015 04/12/2017 Obstructive sleep apnea syndrome 12/13/2015 04/12/2017 Superficial skin infection 08/31/2015 0 03/13/2016 CKD stage 3 due to type 2 diabetes mellitus 02/06/2015 11/16/2018 Overview: Dr. Lilian Vance, nephrology BMI 45.0-49.9, adult 02/06/2015 020 Venous insufficiency 02/06/2015 017 DM type 2 causing CKD stage 3 09/21/2014 03/05/2019 Overview: Dr Landen Best, endocrinology Degenerative arthritis of hip 07/01/2014 08/16/2020 BMI 45.0-49.9, adult 03/31/2014 015 Diabetes mellitus type II, uncontrolled 11/25/2013 02/06/2015 BMI 40.0-44.9, adult 10/14/2013 014 Chest pain 09/13/2012 03/13/2016 Overview: Substernal pressure lasting ~5hrs, partially relieved with SLN. Significant risk factors for CAD (HTN, HLD, DM). EKG does to show ST changes. Initial CE at [facility] are supposedly negative. Prior stress test in 2010 was normal. DM well controlled. Currently low likelihood for ACS. - EKG - trend [facility] - stress test vs [facility] S/P total knee replacement using cement 07/02/2012 07/15/2018 Degenerative arthritis of right knee 06/10/2012 08/12/2014 Allergic contact dermatitis due to metals 05/21/2012 08/16/2020 Sensorineural hearing loss, bilateral 07/19/2011 08/16/2020 Diverticulosis 08/23/2010 03/13/2016 Thyroid CA 02/21/2010 08/12/2014 Overview: * Surgery (12/15/09): total thyroidectomy, Dr. Jamey Ibrahim, [facility] * Path (10/29/09): FNA Atypical cells present in a background of cyst contents, suspicious for papillary thyroid carcinoma (12/15/09): single well-circumscribed nodule in the right inferior lobe, which measured 3.5 cm in greatest dimension. The nodule was extensively hemorrhagic and cystic with a rim of viable material which ranges in appearance from papillary architecture to follicular structures. There is no evidence of a higher grade component. There is no definitive lymphovascular space invasion identified. In some areas, the tumor cells have oncocytic cytoplasm, however, the cells do not meet criteria for tall-cell variant of papillary thyroid carcinoma. * SIDDIQI (02/17/10): Rx 131-Iodine 102.4 mCi, Thyrogen-stim * Scan (02/24/10): post-treatment scan (Thyrogen-stim) shows uptake in left neck, also in liver area. SPECT images show one focus of uptake in lateral segment of the left lobe of the liver, one in the medial segment of the left lobe of liver, and one in the posterior segment of the right lobe of the liver. (05/03/11): Thyrogen stim 123-Iodine scan negative * Thyroglobulin Component Thyroglobulin TG Antibody Screen Stimulation Latest Ref Rng 0.8 - 49.0 ng/mL <14.4 IU/mL 11/05/2009 75.7 (H) 1.0 01/18/2010 <0.2 (L) 1.1 02/16/2010 0.3 (L) 1.0 Thyrogen 07/05/2010 <0.2 (L) 1.3 12/27/2010 <0.2 (L) 1.3 05/08/2011 <0.2 (L) 1.1 Thyrogen 07/24/2011 <0.2 (L) 1.5 01/23/2012 <0.2 (L) 1.0 07/27/2012 <0.2 (L) <1.0 02/18/2013 <0.2 (L) <1.0 08/12/2013 <0.2 (L) <1.0 * mRNA (11/03/09): TSH-R mRNA=1.7 ng/ug (11/30/09): TSH-R mRNA=1.8 ng/ug (01/18/10): no TSH-R mRNA assay postop (07/05/10): TSH-R mRNA <1.0 ng/ug (12/27/10): TSH-R mRNA <1.0 ng/ug * Ultrasound (01/18/10): no suspicious adenopathy along great vessels or in lateral neck on either side. No masses in thyroid bed. (12/27/10): no suspicious adenopathy along great vessels or in lateral neck on either side. No masses in thyroid bed. (01/24/12): no suspicious adenopathy along great vessels or in lateral neck on either side. No masses in thyroid bed. (08/11/13): no suspicious adenopathy along great vessels or in lateral neck on either side. No masses in thyroid bed. Thyroid nodule 10/20/2009 03/02/2010 Incisional hernia without me ntion of obstruction or gangrene 09/12/2005 08/12/2014 Symptomatic menopausal or fe male climacteric states 04/07/2003 10/15/2017 Diabetes mellitus type 2 03/02/200301/2014 Overview: *Type (): dx type 2 diabetes *Control hx Component Hemoglobin A1C Latest Ref Rng 4.0 - 6.0 % 01/17/2011 6.8 05/08/2011 7.2 07/24/2011 6.8 01/23/2012 6.7 07/27/2012 6.1 (H) 02/18/2013 6.4 (H) 08/08/2013 7.0 (H) 10/13/2013 7.1 (H) 02/17/14 7.3 * Eye hx (10/2008): no DM changes per Dr. Campoverde (07/2013): no DM changes per pt, exam Dr. Campoverde * Renal hx Component Albumin/Creat Ratio Latest Ref Rng 0 - 30 mg/g 04/03/2005 8 05/03/2006 8 03/26/2008 13 01/22/2009 18 02/16/2010 10 07/05/2010 9 05/08/2011 13 08/08/2013 9 * Vascular hx (11/12/13): no hx [place], stroke, Component Latest Ref Rng 02/18/2013 08/12/2013 10/13/2013 Triglyceride 30 - 149 mg/dL 114 123 126 Cholesterol 100 - 199 mg/dL 196 192 187 HDL Cholesterol >55 mg/dL 47 (L) 58 52 (L) VLDL Cholesterol 6 - 40 mg/dL 23 25 25 LDL Cholesterol 60 - 129 mg/dL 126 109 110 Fasting Time FASTING FASTING fasting TC:HDL Ratio 1.00 - 5.00 4.17 3.31 3.60 LDL:HDL Ratio 0.50 - 3.55 2.68 1.88 2.12 Non HDL Cholesterol 90 - 159 mg/dL 149 134 135 * Sleep (11/12/13): has obstructive sleep apnea, uses BiPAP since titration 04/07/13 * Exercise (11/12/13): not exercisnig * Medications (11/12/13): Victoza 1.8 mg daily, metformin 500 mg 2-1-1, * Physician (11/12/13): primary physician is Hayley Malone Morbid obesity 03/02/2003 07/15/2014 HYPERLIPIDEMIA NEC/NOS 06/10 documented as of this encounter (statuses as of 08/17/2023) [facility]2020 History of Past illness Narrative* Problem Noted Date Diagnosed Date Resolved Date Postoperative abdominal pain 07/12/2020 10/13/2020 Mild protein-calorie malnutrition 06/28/2020 06/29/2020 Infected prosthetic mesh of abdominal wall 06/20/2020 06/30/2020 Obesity, Class II, BMI 35-39.9 06/13/2019 08/16/2020 SBO (small bowel obstruction) 06/07/2019 08/16/2020 Morbid obesity 03/10/2019 06/13/2019 Abnormal cardiovascular stress test 09/11/2017 10/15/2017 Primary osteoarthritis of right hip 11/27/2016 08/18/2020 Trochanteric bursitis of right hip 11/27/2016 08/18/2020 Dyspnea, unspecified 03/08/2016 020 Angiomyolipoma of right kidney 01/11/2016 06/15/2016 Essential hypertension with goal blood pressure less than 140/90 12/13/2015 04/12/2017 Obstructive sleep apnea syndrome 12/13/2015 04/12/2017 Superficial skin infection 08/31/2015 0 03/13/2016 CKD stage 3 due to type 2 diabetes mellitus 02/06/2015 11/16/2018 Overview: Dr. Lilian Vance, nephrology BMI 45.0-49.9, adult 02/06/2015 020 Venous insufficiency 02/06/2015 017 DM type 2 causing CKD stage 3 09/21/2014 03/05/2019 Overview: Dr Landen Best, endocrinology Degenerative arthritis of hip 07/01/2014 08/16/2020 BMI 45.0-49.9, adult 03/31/2014 015 Diabetes mellitus type II, uncontrolled 11/25/2013 02/06/2015 BMI 40.0-44.9, adult 10/14/2013 014 Chest pain 09/13/2012 03/13/2016 Overview: Substernal pressure lasting ~5hrs, partially relieved with SLN. Significant risk factors for CAD (HTN, HLD, DM). EKG does to show ST changes. Initial CE at [facility] are supposedly negative. Prior stress test in 2010 was normal. DM well controlled. Currently low likelihood for ACS. - EKG - trend [facility] - stress test vs [facility] S/P total knee replacement using cement 07/02/2012 07/15/2018 Degenerative arthritis of right knee 06/10/2012 08/12/2014 Allergic contact dermatitis due to metals 05/21/2012 08/16/2020 Sensorineural hearing loss, bilateral 07/19/2011 08/16/2020 Diverticulosis 08/23/2010 03/13/2016 Thyroid CA 02/21/2010 08/12/2014 Overview: * Surgery (12/15/09): total thyroidectomy, Dr. Jamey Ibrahim, [facility] * Path (10/29/09): FNA Atypical cells present in a background of cyst contents, suspicious for papillary thyroid carcinoma (12/15/09): single well-circumscribed nodule in the right inferior lobe, which measured 3.5 cm in greatest dimension. The nodule was extensively hemorrhagic and cystic with a rim of viable material which ranges in appearance from papillary architecture to follicular structures. There is no evidence of a higher grade component. There is no definitive lymphovascular space invasion identified. In some areas, the tumor cells have oncocytic cytoplasm, however, the cells do not meet criteria for tall-cell variant of papillary thyroid carcinoma. * SIDDIQI (02/17/10): Rx 131-Iodine 102.4 mCi, Thyrogen-stim * Scan (02/24/10): post-treatment scan (Thyrogen-stim) shows uptake in left neck, also in liver area. SPECT images show one focus of uptake in lateral segment of the left lobe of the liver, one in the medial segment of the left lobe of liver, and one in the posterior segment of the right lobe of the liver. (05/03/11): Thyrogen stim 123-Iodine scan negative * Thyroglobulin Component Thyroglobulin TG Antibody Screen Stimulation Latest Ref Rng 0.8 - 49.0 ng/mL <14.4 IU/mL 11/05/2009 75.7 (H) 1.0 01/18/2010 <0.2 (L) 1.1 02/16/2010 0.3 (L) 1.0 Thyrogen 07/05/2010 <0.2 (L) 1.3 12/27/2010 <0.2 (L) 1.3 05/08/2011 <0.2 (L) 1.1 Thyrogen 07/24/2011 <0.2 (L) 1.5 01/23/2012 <0.2 (L) 1.0 07/27/2012 <0.2 (L) <1.0 02/18/2013 <0.2 (L) <1.0 08/12/2013 <0.2 (L) <1.0 * mRNA (11/03/09): TSH-R mRNA=1.7 ng/ug (11/30/09): TSH-R mRNA=1.8 ng/ug (01/18/10): no TSH-R mRNA assay postop (07/05/10): TSH-R mRNA <1.0 ng/ug (12/27/10): TSH-R mRNA <1.0 ng/ug * Ultrasound (01/18/10): no suspicious adenopathy along great vessels or in lateral neck on either side. No masses in thyroid bed. (12/27/10): no suspicious adenopathy along great vessels or in lateral neck on either side. No masses in thyroid bed. (01/24/12): no suspicious adenopathy along great vessels or in lateral neck on either side. No masses in thyroid bed. (08/11/13): no suspicious adenopathy along great vessels or in lateral neck on either side. No masses in thyroid bed. Thyroid nodule 10/20/2009 03/02/2010 Incisional hernia without me ntion of obstruction or gangrene 09/12/2005 08/12/2014 Symptomatic menopausal or fe male climacteric states 04/07/2003 10/15/2017 Diabetes mellitus type 2 03/02/200301/2014 Overview: *Type (): dx type 2 diabetes *Control hx Component Hemoglobin A1C Latest Ref Rng 4.0 - 6.0 % 01/17/2011 6.8 05/08/2011 7.2 07/24/2011 6.8 01/23/2012 6.7 07/27/2012 6.1 (H) 02/18/2013 6.4 (H) 08/08/2013 7.0 (H) 10/13/2013 7.1 (H) 02/17/14 7.3 * Eye hx (10/2008): no DM changes per Dr. Campoverde (07/2013): no DM changes per pt, exam Dr. Campoverde * Renal hx Component Albumin/Creat Ratio Latest Ref Rng 0 - 30 mg/g 04/03/2005 8 05/03/2006 8 03/26/2008 13 01/22/2009 18 02/16/2010 10 07/05/2010 9 05/08/2011 13 08/08/2013 9 * Vascular hx (11/12/13): no hx [place], stroke, Component Latest Ref Rng 02/18/2013 08/12/2013 10/13/2013 Triglyceride 30 - 149 mg/dL 114 123 126 Cholesterol 100 - 199 mg/dL 196 192 187 HDL Cholesterol >55 mg/dL 47 (L) 58 52 (L) VLDL Cholesterol 6 - 40 mg/dL 23 25 25 LDL Cholesterol 60 - 129 mg/dL 126 109 110 Fasting Time FASTING FASTING fasting TC:HDL Ratio 1.00 - 5.00 4.17 3.31 3.60 LDL:HDL Ratio 0.50 - 3.55 2.68 1.88 2.12 Non HDL Cholesterol 90 - 159 mg/dL 149 134 135 * Sleep (11/12/13): has obstructive sleep apnea, uses BiPAP since titration 04/07/13 * Exercise (11/12/13): not exercisnig * Medications (11/12/13): Victoza 1.8 mg daily, metformin 500 mg 2-1-1, * Physician (11/12/13): primary physician is Hayley Malone Morbid obesity 03/02/2003 07/15/2014 HYPERLIPIDEMIA NEC/NOS 06/10 documented as of this encounter (statuses as of 08/23/2023) [facility]11-02-2020 History of Past illness Narrative* Problem Noted Date Diagnosed Date Resolved Date Postoperative abdominal pain 07/12/2020 10/13/2020 Mild protein-calorie malnutrition 06/28/2020 06/29/2020 Infected prosthetic mesh of abdominal wall 06/20/2020 06/30/2020 Obesity, Class II, BMI 35-39.9 06/13/2019 08/16/2020 SBO (small bowel obstruction) 06/07/2019 08/16/2020 Morbid obesity 03/10/2019 06/13/2019 Abnormal cardiovascular stress test 09/11/2017 10/15/2017 Primary osteoarthritis of right hip 11/27/2016 08/18/2020 Trochanteric bursitis of right hip 11/27/2016 08/18/2020 Dyspnea, unspecified 03/08/2016 020 Angiomyolipoma of right kidney 01/11/2016 06/15/2016 Essential hypertension with goal blood pressure less than 140/90 12/13/2015 04/12/2017 Obstructive sleep apnea syndrome 12/13/2015 04/12/2017 Superficial skin infection 08/31/2015 0 03/13/2016 CKD stage 3 due to type 2 diabetes mellitus 02/06/2015 11/16/2018 Overview: Dr. Lilian Vance, nephrology BMI 45.0-49.9, adult 02/06/2015 020 Venous insufficiency 02/06/2015 017 DM type 2 causing CKD stage 3 09/21/2014 03/05/2019 Overview: Dr Landen Best, endocrinology Degenerative arthritis of hip 07/01/2014 08/16/2020 BMI 45.0-49.9, adult 03/31/2014 015 Diabetes mellitus type II, uncontrolled 11/25/2013 02/06/2015 BMI 40.0-44.9, adult 10/14/2013 014 Chest pain 09/13/2012 03/13/2016 Overview: Substernal pressure lasting ~5hrs, partially relieved with SLN. Significant risk factors for CAD (HTN, HLD, DM). EKG does to show ST changes. Initial CE at [facility] are supposedly negative. Prior stress test in 2010 was normal. DM well controlled. Currently low likelihood for ACS. - EKG - trend Donald - stress test vs [facility] S/P total knee replacement using cement 07/02/2012 07/15/2018 Degenerative arthritis of right knee 06/10/2012 08/12/2014 Allergic contact dermatitis due to metals 05/21/2012 08/16/2020 Sensorineural hearing loss, bilateral 07/19/2011 08/16/2020 Diverticulosis 08/23/2010 03/13/2016 Thyroid CA 02/21/2010 08/12/2014 Overview: * Surgery (12/15/09): total thyroidectomy, Dr. Jamey Ibrahim, [facility] * Path (10/29/09): FNA Atypical cells present in a background of cyst contents, suspicious for papillary thyroid carcinoma (12/15/09): single well-circumscribed nodule in the right inferior lobe, which measured 3.5 cm in greatest dimension. The nodule was extensively hemorrhagic and cystic with a rim of viable material which ranges in appearance from papillary architecture to follicular structures. There is no evidence of a higher grade component. There is no definitive lymphovascular space invasion identified. In some areas, the tumor cells have oncocytic cytoplasm, however, the cells do not meet criteria for tall-cell variant of papillary thyroid carcinoma. * SIDDIQI (02/17/10): Rx 131-Iodine 102.4 mCi, Thyrogen-stim * Scan (02/24/10): post-treatment scan (Thyrogen-stim) shows uptake in left neck, also in liver area. SPECT images show one focus of uptake in lateral segment of the left lobe of the liver, one in the medial segment of the left lobe of liver, and one in the posterior segment of the right lobe of the liver. (05/03/11): Thyrogen stim 123-Iodine scan negative * Thyroglobulin Component Thyroglobulin TG Antibody Screen Stimulation Latest Ref Rng 0.8 - 49.0 ng/mL <14.4 IU/mL 11/05/2009 75.7 (H) 1.0 01/18/2010 <0.2 (L) 1.1 02/16/2010 0.3 (L) 1.0 Thyrogen 07/05/2010 <0.2 (L) 1.3 12/27/2010 <0.2 (L) 1.3 05/08/2011 <0.2 (L) 1.1 Thyrogen 07/24/2011 <0.2 (L) 1.5 01/23/2012 <0.2 (L) 1.0 07/27/2012 <0.2 (L) <1.0 02/18/2013 <0.2 (L) <1.0 08/12/2013 <0.2 (L) <1.0 * mRNA (11/03/09): TSH-R mRNA=1.7 ng/ug (11/30/09): TSH-R mRNA=1.8 ng/ug (01/18/10): no TSH-R mRNA assay postop (07/05/10): TSH-R mRNA <1.0 ng/ug (12/27/10): TSH-R mRNA <1.0 ng/ug * Ultrasound (01/18/10): no suspicious adenopathy along great vessels or in lateral neck on either side. No masses in thyroid bed. (12/27/10): no suspicious adenopathy along great vessels or in lateral neck on either side. No masses in thyroid bed. (01/24/12): no suspicious adenopathy along great vessels or in lateral neck on either side. No masses in thyroid bed. (08/11/13): no suspicious adenopathy along great vessels or in lateral neck on either side. No masses in thyroid bed. Thyroid nodule 10/20/2009 03/02/2010 Incisional hernia without me ntion of obstruction or gangrene 09/12/2005 08/12/2014 Symptomatic menopausal or fe male climacteric states 04/07/2003 10/15/2017 Diabetes mellitus type 2 03/02/200301/2014 Overview: *Type (): dx type 2 diabetes *Control hx Component Hemoglobin A1C Latest Ref Rng 4.0 - 6.0 % 01/17/2011 6.8 05/08/2011 7.2 07/24/2011 6.8 01/23/2012 6.7 07/27/2012 6.1 (H) 02/18/2013 6.4 (H) 08/08/2013 7.0 (H) 10/13/2013 7.1 (H) 02/17/14 7.3 * Eye hx (10/2008): no DM changes per Dr. Campoverde (07/2013): no DM changes per pt, exam Dr. Campoverde * Renal hx Component Albumin/Creat Ratio Latest Ref Rng 0 - 30 mg/g 04/03/2005 8 05/03/2006 8 03/26/2008 13 01/22/2009 18 02/16/2010 10 07/05/2010 9 05/08/2011 13 08/08/2013 9 * Vascular hx (11/12/13): no hx [place], stroke, Component Latest Ref Rng 02/18/2013 08/12/2013 10/13/2013 Triglyceride 30 - 149 mg/dL 114 123 126 Cholesterol 100 - 199 mg/dL 196 192 187 HDL Cholesterol >55 mg/dL 47 (L) 58 52 (L) VLDL Cholesterol 6 - 40 mg/dL 23 25 25 LDL Cholesterol 60 - 129 mg/dL 126 109 110 Fasting Time FASTING FASTING fasting TC:HDL Ratio 1.00 - 5.00 4.17 3.31 3.60 LDL:HDL Ratio 0.50 - 3.55 2.68 1.88 2.12 Non HDL Cholesterol 90 - 159 mg/dL 149 134 135 * Sleep (11/12/13): has obstructive sleep apnea, uses BiPAP since titration 04/07/13 * Exercise (11/12/13): not exercisnig * Medications (11/12/13): Victoza 1.8 mg daily, metformin 500 mg 2-1-1, * Physician (11/12/13): primary physician is Hayley Malone Morbid obesity 03/02/2003 07/15/2014 HYPERLIPIDEMIA NEC/NOS 06/10 documented as of this encounter (statuses as of 08/24/2023) [facility]11-02-2020 History of Past illness Narrative* Problem Noted Date Diagnosed Date Resolved Date Postoperative abdominal pain 07/12/2020 10/13/2020 Mild protein-calorie malnutrition 06/28/2020 06/29/2020 Infected prosthetic mesh of abdominal wall 06/20/2020 06/30/2020 Obesity, Class II, BMI 35-39.9 06/13/2019 08/16/2020 SBO (small bowel obstruction) 06/07/2019 08/16/2020 Morbid obesity 03/10/2019 06/13/2019 Abnormal cardiovascular stress test 09/11/2017 10/15/2017 Primary osteoarthritis of right hip 11/27/2016 08/18/2020 Trochanteric bursitis of right hip 11/27/2016 08/18/2020 Dyspnea, unspecified 03/08/2016 020 Angiomyolipoma of right kidney 01/11/2016 06/15/2016 Essential hypertension with goal blood pressure less than 140/90 12/13/2015 04/12/2017 Obstructive sleep apnea syndrome 12/13/2015 04/12/2017 Superficial skin infection 08/31/2015 0 03/13/2016 CKD stage 3 due to type 2 diabetes mellitus 02/06/2015 11/16/2018 Overview: Dr. Lilian Vance, nephrology BMI 45.0-49.9, adult 02/06/2015 020 Venous insufficiency 02/06/2015 017 DM type 2 causing CKD stage 3 09/21/2014 03/05/2019 Overview: Dr Landen Best, endocrinology Degenerative arthritis of hip 07/01/2014 08/16/2020 BMI 45.0-49.9, adult 03/31/2014 015 Diabetes mellitus type II, uncontrolled 11/25/2013 02/06/2015 BMI 40.0-44.9, adult 10/14/2013 014 Chest pain 09/13/2012 03/13/2016 Overview: Substernal pressure lasting ~5hrs, partially relieved with SLN. Significant risk factors for CAD (HTN, HLD, DM). EKG does to show ST changes. Initial CE at [facility] are supposedly negative. Prior stress test in 2010 was normal. DM well controlled. Currently low likelihood for ACS. - EKG - trend Donald - stress test vs [facility] S/P total knee replacement using cement 07/02/2012 07/15/2018 Degenerative arthritis of right knee 06/10/2012 08/12/2014 Allergic contact dermatitis due to metals 05/21/2012 08/16/2020 Sensorineural hearing loss, bilateral 07/19/2011 08/16/2020 Diverticulosis 08/23/2010 03/13/2016 Thyroid CA 02/21/2010 08/12/2014 Overview: * Surgery (12/15/09): total thyroidectomy, Dr. Jamey Ibrahim, [facility] * Path (10/29/09): FNA Atypical cells present in a background of cyst contents, suspicious for papillary thyroid carcinoma (12/15/09): single well-circumscribed nodule in the right inferior lobe, which measured 3.5 cm in greatest dimension. The nodule was extensively hemorrhagic and cystic with a rim of viable material which ranges in appearance from papillary architecture to follicular structures. There is no evidence of a higher grade component. There is no definitive lymphovascular space invasion identified. In some areas, the tumor cells have oncocytic cytoplasm, however, the cells do not meet criteria for tall-cell variant of papillary thyroid carcinoma. * SIDDIQI (6/10/10): Rx 131-Iodine 102.4 mCi, Thyrogen-stim * Scan (02/24/10): post-treatment scan (Thyrogen-stim) shows uptake in left neck, also in liver area. SPECT images show one focus of uptake in lateral segment of the left lobe of the liver, one in the medial segment of the left lobe of liver, and one in the posterior segment of the right lobe of the liver. (05/03/11): Thyrogen stim 123-Iodine scan negative * Thyroglobulin Component Thyroglobulin TG Antibody Screen Stimulation Latest Ref Rng 0.8 - 49.0 ng/mL <14.4 IU/mL 11/05/2009 75.7 (H) 1.0 01/18/2010 <0.2 (L) 1.1 02/16/2010 0.3 (L) 1.0 Thyrogen 07/05/2010 <0.2 (L) 1.3 12/27/2010 <0.2 (L) 1.3 05/08/2011 <0.2 (L) 1.1 Thyrogen 07/24/2011 <0.2 (L) 1.5 01/23/2012 <0.2 (L) 1.0 07/27/2012 <0.2 (L) <1.0 02/18/2013 <0.2 (L) <1.0 08/12/2013 <0.2 (L) <1.0 * mRNA (11/03/09): TSH-R mRNA=1.7 ng/ug (11/30/09): TSH-R mRNA=1.8 ng/ug (01/18/10): no TSH-R mRNA assay postop (07/05/10): TSH-R mRNA <1.0 ng/ug (12/27/10): TSH-R mRNA <1.0 ng/ug * Ultrasound (01/18/10): no suspicious adenopathy along great vessels or in lateral neck on either side. No masses in thyroid bed. (12/27/10): no suspicious adenopathy along great vessels or in lateral neck on either side. No masses in thyroid bed. (01/24/12): no suspicious adenopathy along great vessels or in lateral neck on either side. No masses in thyroid bed. (08/11/13): no suspicious adenopathy along great vessels or in lateral neck on either side. No masses in thyroid bed. Thyroid nodule 10/20/2009 03/02/2010 Incisional hernia without me ntion of obstruction or gangrene 09/12/2005 08/12/2014 Symptomatic menopausal or fe male climacteric states 04/07/2003 10/15/2017 Diabetes mellitus type 2 03/02/200301/2014 Overview: *Type (): dx type 2 diabetes *Control hx Component Hemoglobin A1C Latest Ref Rng 4.0 - 6.0 % 01/17/2011 6.8 05/08/2011 7.2 07/24/2011 6.8 01/23/2012 6.7 07/27/2012 6.1 (H) 02/18/2013 6.4 (H) 08/08/2013 7.0 (H) 10/13/2013 7.1 (H) 02/17/14 7.3 * Eye hx (10/2008): no DM changes per Dr. Campoverde (07/2013): no DM changes per pt, exam Dr. Campoverde * Renal hx Component Albumin/Creat Ratio Latest Ref Rng 0 - 30 mg/g 04/03/2005 8 05/03/2006 8 03/26/2008 13 01/22/2009 18 02/16/2010 10 07/05/2010 9 05/08/2011 13 08/08/2013 9 * Vascular hx (11/12/13): no hx [place], stroke, Component Latest Ref Rng 02/18/2013 08/12/2013 10/13/2013 Triglyceride 30 - 149 mg/dL 114 123 126 Cholesterol 100 - 199 mg/dL 196 192 187 HDL Cholesterol >55 mg/dL 47 (L) 58 52 (L) VLDL Cholesterol 6 - 40 mg/dL 23 25 25 LDL Cholesterol 60 - 129 mg/dL 126 109 110 Fasting Time FASTING FASTING fasting TC:HDL Ratio 1.00 - 5.00 4.17 3.31 3.60 LDL:HDL Ratio 0.50 - 3.55 2.68 1.88 2.12 Non HDL Cholesterol 90 - 159 mg/dL 149 134 135 * Sleep (11/12/13): has obstructive sleep apnea, uses BiPAP since titration 04/07/13 * Exercise (11/12/13): not exercisnig * Medications (11/12/13): Victoza 1.8 mg daily, metformin 500 mg 2-1-1, * Physician (11/12/13): primary physician is Hayley Malone Morbid obesity 03/02/2003 07/15/2014 HYPERLIPIDEMIA NEC/NOS 06/10 documented as of this encounter (statuses as of 10/17/2023) [facility]11-[facility]2020 History of Past illness Narrative* Problem Noted Date Diagnosed Date Resolved Date Postoperative abdominal pain 07/12/2020 10/13/2020 Mild protein-calorie malnutrition 06/28/2020 06/29/2020 Infected prosthetic mesh of abdominal wall 06/20/2020 06/30/2020 Obesity, Class II, BMI 35-39.9 06/13/2019 08/16/2020 SBO (small bowel obstruction) 06/07/2019 08/16/2020 Morbid obesity 03/10/2019 06/13/2019 Abnormal cardiovascular stress test 09/11/2017 10/15/2017 Primary osteoarthritis of right hip 11/27/2016 08/18/2020 Trochanteric bursitis of right hip 11/27/2016 08/18/2020 Dyspnea, unspecified 03/08/2016 020 Angiomyolipoma of right kidney 01/11/2016 06/15/2016 Essential hypertension with goal blood pressure less than 140/90 12/13/2015 04/12/2017 Obstructive sleep apnea syndrome 12/13/2015 04/12/2017 Superficial skin infection 08/31/2015 0 03/13/2016 CKD stage 3 due to type 2 diabetes mellitus 02/06/2015 11/16/2018 Overview: Dr. Lilian Vance, nephrology BMI 45.0-49.9, adult 02/06/2015 020 Venous insufficiency 02/06/2015 017 DM type 2 causing CKD stage 3 09/21/2014 03/05/2019 Overview: Dr Landen Best, endocrinology Degenerative arthritis of hip 07/01/2014 08/16/2020 BMI 45.0-49.9, adult 03/31/2014 02/03/2 015 Diabetes mellitus type II, uncontrolled 11/25/2013 02/06/2015 BMI 40.0-44.9, adult 10/14/2013 014 Chest pain 09/13/2012 03/13/2016 Overview: Substernal pressure lasting ~5hrs, partially relieved with SLN. Significant risk factors for CAD (HTN, HLD, DM). EKG does to show ST changes. Initial CE at [facility] are supposedly negative. Prior stress test in 2010 was normal. DM well controlled. Currently low likelihood for ACS. - EKG - trend Donald - stress test vs [facility] S/P total knee replacement using cement 07/02/2012 07/15/2018 Degenerative arthritis of right knee 06/10/2012 08/12/2014 Allergic contact dermatitis due to metals 05/21/2012 08/16/2020 Sensorineural hearing loss, bilateral 07/19/2011 08/16/2020 Diverticulosis 08/23/2010 03/13/2016 Thyroid CA 02/21/2010 08/12/2014 Overview: * Surgery (12/15/09): total thyroidectomy, Dr. Jamey Ibrahim, [facility] * Path (10/29/09): FNA Atypical cells present in a background of cyst contents, suspicious for papillary thyroid carcinoma (12/15/09): single well-circumscribed nodule in the right inferior lobe, which measured 3.5 cm in greatest dimension. The nodule was extensively hemorrhagic and cystic with a rim of viable material which ranges in appearance from papillary architecture to follicular structures. There is no evidence of a higher grade component. There is no definitive lymphovascular space invasion identified. In some areas, the tumor cells have oncocytic cytoplasm, however, the cells do not meet criteria for tall-cell variant of papillary thyroid carcinoma. * SIDDIQI (02/17/10): Rx 131-Iodine 102.4 mCi, Thyrogen-stim * Scan (02/24/10): post-treatment scan (Thyrogen-stim) shows uptake in left neck, also in liver area. SPECT images show one focus of uptake in lateral segment of the left lobe of the liver, one in the medial segment of the left lobe of liver, and one in the posterior segment of the right lobe of the liver. (05/03/11): Thyrogen stim 123-Iodine scan negative * Thyroglobulin Component Thyroglobulin TG Antibody Screen Stimulation Latest Ref Rng 0.8 - 49.0 ng/mL <14.4 IU/mL 11/05/2009 75.7 (H) 1.0 01/18/2010 <0.2 (L) 1.1 02/16/2010 0.3 (L) 1.0 Thyrogen 07/05/2010 <0.2 (L) 1.3 12/27/2010 <0.2 (L) 1.3 05/08/2011 <0.2 (L) 1.1 Thyrogen 07/24/2011 <0.2 (L) 1.5 01/23/2012 <0.2 (L) 1.0 07/27/2012 <0.2 (L) <1.0 02/18/2013 <0.2 (L) <1.0 08/12/2013 <0.2 (L) <1.0 * mRNA (11/03/09): TSH-R mRNA=1.7 ng/ug (11/30/09): TSH-R mRNA=1.8 ng/ug (01/18/10): no TSH-R mRNA assay postop (07/05/10): TSH-R mRNA <1.0 ng/ug (12/27/10): TSH-R mRNA <1.0 ng/ug * Ultrasound (01/18/10): no suspicious adenopathy along great vessels or in lateral neck on either side. No masses in thyroid bed. (12/27/10): no suspicious adenopathy along great vessels or in lateral neck on either side. No masses in thyroid bed. (01/24/12): no suspicious adenopathy along great vessels or in lateral neck on either side. No masses in thyroid bed. (08/11/13): no suspicious adenopathy along great vessels or in lateral neck on either side. No masses in thyroid bed. Thyroid nodule 10/20/2009 03/02/2010 Incisional hernia without me ntion of obstruction or gangrene 09/12/2005 08/12/2014 Symptomatic menopausal or fe male climacteric states 04/07/2003 10/15/2017 Diabetes mellitus type 2 03/02/200301/2014 Overview: *Type (): dx type 2 diabetes *Control hx Component Hemoglobin A1C Latest Ref Rng 4.0 - 6.0 % 01/17/2011 6.8 05/08/2011 7.2 07/24/2011 6.8 01/23/2012 6.7 07/27/2012 6.1 (H) 02/18/2013 6.4 (H) 08/08/2013 7.0 (H) 10/13/2013 7.1 (H) 02/17/14 7.3 * Eye hx (10/2008): no DM changes per Dr. Campoverde (07/2013): no DM changes per pt, exam Dr. Campoverde * Renal hx Component Albumin/Creat Ratio Latest Ref Rng 0 - 30 mg/g 04/03/2005 8 05/03/2006 8 03/26/2008 13 01/22/2009 18 02/16/2010 10 07/05/2010 9 05/08/2011 13 08/08/2013 9 * Vascular hx (11/12/13): no hx [place], stroke, Component Latest Ref Rng 02/18/2013 08/12/2013 10/13/2013 Triglyceride 30 - 149 mg/dL 114 123 126 Cholesterol 100 - 199 mg/dL 196 192 187 HDL Cholesterol >55 mg/dL 47 (L) 58 52 (L) VLDL Cholesterol 6 - 40 mg/dL 23 25 25 LDL Cholesterol 60 - 129 mg/dL 126 109 110 Fasting Time FASTING FASTING fasting TC:HDL Ratio 1.00 - 5.00 4.17 3.31 3.60 LDL:HDL Ratio 0.50 - 3.55 2.68 1.88 2.12 Non HDL Cholesterol 90 - 159 mg/dL 149 134 135 * Sleep (11/12/13): has obstructive sleep apnea, uses BiPAP since titration 04/07/13 * Exercise (11/12/13): not exercisnig * Medications (11/12/13): Victoza 1.8 mg daily, metformin 500 mg 2-1-1, * Physician (11/12/13): primary physician is Hayley Malone Morbid obesity 03/02/2003 07/15/2014 HYPERLIPIDEMIA NEC/NOS 06/10 documented as of this encounter (statuses as of 10/23/2023) [facility] History of Past illness Narrative* Problem Noted Date Diagnosed Date Resolved Date Postoperative abdominal pain 07/12/2020 10/13/2020 Mild protein-calorie malnutrition 06/28/2020 06/29/2020 Infected prosthetic mesh of abdominal wall 06/20/2020 06/30/2020 Obesity, Class II, BMI 35-39.9 06/13/2019 08/16/2020 SBO (small bowel obstruction) 06/07/2019 08/16/2020 Morbid obesity 03/10/2019 06/13/2019 Abnormal cardiovascular stress test 09/11/2017 10/15/2017 Primary osteoarthritis of right hip 11/27/2016 08/18/2020 Trochanteric bursitis of right hip 11/27/2016 08/18/2020 Dyspnea, unspecified 03/08/2016 020 Angiomyolipoma of right kidney 01/11/2016 06/15/2016 Essential hypertension with goal blood pressure less than 140/90 12/13/2015 04/12/2017 Obstructive sleep apnea syndrome 12/13/2015 04/12/2017 Superficial skin infection 08/31/2015 0 03/13/2016 CKD stage 3 due to type 2 diabetes mellitus 02/06/2015 11/16/2018 Overview: Dr. Lilian Vance, nephrology BMI 45.0-49.9, adult 02/06/2015 020 Venous insufficiency 02/06/2015 017 DM type 2 causing CKD stage 3 09/21/2014 03/05/2019 Overview: Dr Landen Best, endocrinology Degenerative arthritis of hip 07/01/2014 08/16/2020 BMI 45.0-49.9, adult 03/31/2014 015 Diabetes mellitus type II, uncontrolled 11/25/2013 02/06/2015 BMI 40.0-44.9, adult 10/14/2013 014 Chest pain 09/13/2012 03/13/2016 Overview: Substernal pressure lasting ~5hrs, partially relieved with SLN. Significant risk factors for CAD (HTN, HLD, DM). EKG does to show ST changes. Initial CE at [facility] are supposedly negative. Prior stress test in 2010 was normal. DM well controlled. Currently low likelihood for ACS. - EKG - trend [facility] - stress test vs [facility] S/P total knee replacement using cement 07/02/2012 07/15/2018 Degenerative arthritis of right knee 06/10/2012 08/12/2014 Allergic contact dermatitis due to metals 05/21/2012 08/16/2020 Sensorineural hearing loss, bilateral 07/19/2011 08/16/2020 Diverticulosis 08/23/2010 03/13/2016 Thyroid CA 02/21/2010 08/12/2014 Overview: * Surgery (12/15/09): total thyroidectomy, Dr. Jamey Ibrahim, [facility] * Path (10/29/09): FNA Atypical cells present in a background of cyst contents, suspicious for papillary thyroid carcinoma (12/15/09): single well-circumscribed nodule in the right inferior lobe, which measured 3.5 cm in greatest dimension. The nodule was extensively hemorrhagic and cystic with a rim of viable material which ranges in appearance from papillary architecture to follicular structures. There is no evidence of a higher grade component. There is no definitive lymphovascular space invasion identified. In some areas, the tumor cells have oncocytic cytoplasm, however, the cells do not meet criteria for tall-cell variant of papillary thyroid carcinoma. * SIDDIQI (02/17/10): Rx 131-Iodine 102.4 mCi, Thyrogen-stim * Scan (02/24/10): post-treatment scan (Thyrogen-stim) shows uptake in left neck, also in liver area. SPECT images show one focus of uptake in lateral segment of the left lobe of the liver, one in the medial segment of the left lobe of liver, and one in the posterior segment of the right lobe of the liver. (05/03/11): Thyrogen stim 123-Iodine scan negative * Thyroglobulin Component Thyroglobulin TG Antibody Screen Stimulation Latest Ref Rng 0.8 - 49.0 ng/mL <14.4 IU/mL 11/05/2009 75.7 (H) 1.0 01/18/2010 <0.2 (L) 1.1 02/16/2010 0.3 (L) 1.0 Thyrogen 07/05/2010 <0.2 (L) 1.3 12/27/2010 <0.2 (L) 1.3 05/08/2011 <0.2 (L) 1.1 Thyrogen 07/24/2011 <0.2 (L) 1.5 01/23/2012 <0.2 (L) 1.0 07/27/2012 <0.2 (L) <1.0 02/18/2013 <0.2 (L) <1.0 08/12/2013 <0.2 (L) <1.0 * mRNA (11/03/09): TSH-R mRNA=1.7 ng/ug (11/30/09): TSH-R mRNA=1.8 ng/ug (01/18/10): no TSH-R mRNA assay postop (07/05/10): TSH-R mRNA <1.0 ng/ug (12/27/10): TSH-R mRNA <1.0 ng/ug * Ultrasound (01/18/10): no suspicious adenopathy along great vessels or in lateral neck on either side. No masses in thyroid bed. (12/27/10): no suspicious adenopathy along great vessels or in lateral neck on either side. No masses in thyroid bed. (01/24/12): no suspicious adenopathy along great vessels or in lateral neck on either side. No masses in thyroid bed. (08/11/13): no suspicious adenopathy along great vessels or in lateral neck on either side. No masses in thyroid bed. Thyroid nodule 10/20/2009 03/02/2010 Incisional hernia without me ntion of obstruction or gangrene 09/12/2005 08/12/2014 Symptomatic menopausal or fe male climacteric states 04/07/2003 10/15/2017 Diabetes mellitus type 2 03/02/200301/2014 Overview: *Type (): dx type 2 diabetes *Control hx Component Hemoglobin A1C Latest Ref Rng 4.0 - 6.0 % 01/17/2011 6.8 05/08/2011 7.2 07/24/2011 6.8 01/23/2012 6.7 07/27/2012 6.1 (H) 02/18/2013 6.4 (H) 08/08/2013 7.0 (H) 10/13/2013 7.1 (H) 02/17/14 7.3 * Eye hx (10/2008): no DM changes per Dr. Campoverde (07/2013): no DM changes per pt, exam Dr. Campoverde * Renal hx Component Albumin/Creat Ratio Latest Ref Rng 0 - 30 mg/g 04/03/2005 8 05/03/2006 8 03/26/2008 13 01/22/2009 18 02/16/2010 10 07/05/2010 9 05/08/2011 13 08/08/2013 9 * Vascular hx (11/12/13): no hx [place], stroke, Component Latest Ref Rng 02/18/2013 08/12/2013 10/13/2013 Triglyceride 30 - 149 mg/dL 114 123 126 Cholesterol 100 - 199 mg/dL 196 192 187 HDL Cholesterol >55 mg/dL 47 (L) 58 52 (L) VLDL Cholesterol 6 - 40 mg/dL 23 25 25 LDL Cholesterol 60 - 129 mg/dL 126 109 110 Fasting Time FASTING FASTING fasting TC:HDL Ratio 1.00 - 5.00 4.17 3.31 3.60 LDL:HDL Ratio 0.50 - 3.55 2.68 1.88 2.12 Non HDL Cholesterol 90 - 159 mg/dL 149 134 135 * Sleep (11/12/13): has obstructive sleep apnea, uses BiPAP since titration 04/07/13 * Exercise (11/12/13): not exercisnig * Medications (11/12/13): Victoza 1.8 mg daily, metformin 500 mg 2-1-1, * Physician (11/12/13): primary physician is Hayley Malone Morbid obesity 03/02/2003 07/15/2014 HYPERLIPIDEMIA NEC/NOS 06/10 documented as of this encounter (statuses as of 10/23/2023) [facility]11-02-2020 History of Past illness Narrative* Problem Noted Date Diagnosed Date Resolved Date Postoperative abdominal pain 07/12/2020 10/13/2020 Mild protein-calorie malnutrition 06/28/2020 06/29/2020 Infected prosthetic mesh of abdominal wall 06/20/2020 06/30/2020 Obesity, Class II, BMI 35-39.9 06/13/2019 08/16/2020 SBO (small bowel obstruction) 06/07/2019 08/16/2020 Morbid obesity 03/10/2019 06/13/2019 Abnormal cardiovascular stress test 09/11/2017 10/15/2017 Primary osteoarthritis of right hip 11/27/2016 08/18/2020 Trochanteric bursitis of right hip 11/27/2016 08/18/2020 Dyspnea, unspecified 03/08/2016 020 Angiomyolipoma of right kidney 01/11/2016 06/15/2016 Essential hypertension with goal blood pressure less than 140/90 12/13/2015 04/12/2017 Obstructive sleep apnea syndrome 12/13/2015 04/12/2017 Superficial skin infection 08/31/2015 0 03/13/2016 CKD stage 3 due to type 2 diabetes mellitus 02/06/2015 11/16/2018 Overview: Dr. Lilian Vance, nephrology BMI 45.0-49.9, adult 02/06/2015 020 Venous insufficiency 02/06/2015 017 DM type 2 causing CKD stage 3 09/21/2014 03/05/2019 Overview: Dr Landen Best, endocrinology Degenerative arthritis of hip 07/01/2014 08/16/2020 BMI 45.0-49.9, adult 03/31/2014 015 Diabetes mellitus type II, uncontrolled 11/25/2013 02/06/2015 BMI 40.0-44.9, adult 10/14/2013 014 Chest pain 09/13/2012 03/13/2016 Overview: Substernal pressure lasting ~5hrs, partially relieved with SLN. Significant risk factors for CAD (HTN, HLD, DM). EKG does to show ST changes. Initial CE at [facility] are supposedly negative. Prior stress test in 2010 was normal. DM well controlled. Currently low likelihood for ACS. - EKG - trend Donald - stress test vs [facility] S/P total knee replacement using cement 07/02/2012 07/15/2018 Degenerative arthritis of right knee 06/10/2012 08/12/2014 Allergic contact dermatitis due to metals 05/21/2012 08/16/2020 Sensorineural hearing loss, bilateral 07/19/2011 08/16/2020 Diverticulosis 08/23/2010 03/13/2016 Thyroid CA 02/21/2010 08/12/2014 Overview: * Surgery (12/15/09): total thyroidectomy, Dr. Jamey Ibrahim, [facility] * Path (10/29/09): FNA Atypical cells present in a background of cyst contents, suspicious for papillary thyroid carcinoma (12/15/09): single well-circumscribed nodule in the right inferior lobe, which measured 3.5 cm in greatest dimension. The nodule was extensively hemorrhagic and cystic with a rim of viable material which ranges in appearance from papillary architecture to follicular structures. There is no evidence of a higher grade component. There is no definitive lymphovascular space invasion identified. In some areas, the tumor cells have oncocytic cytoplasm, however, the cells do not meet criteria for tall-cell variant of papillary thyroid carcinoma. * SIDDIQI (02/17/10): Rx 131-Iodine 102.4 mCi, Thyrogen-stim * Scan (02/24/10): post-treatment scan (Thyrogen-stim) shows uptake in left neck, also in liver area. SPECT images show one focus of uptake in lateral segment of the left lobe of the liver, one in the medial segment of the left lobe of liver, and one in the posterior segment of the right lobe of the liver. (05/03/11): Thyrogen stim 123-Iodine scan negative * Thyroglobulin Component Thyroglobulin TG Antibody Screen Stimulation Latest Ref Rng 0.8 - 49.0 ng/mL <14.4 IU/mL 11/05/2009 75.7 (H) 1.0 01/18/2010 <0.2 (L) 1.1 02/16/2010 0.3 (L) 1.0 Thyrogen 07/05/2010 <0.2 (L) 1.3 12/27/2010 <0.2 (L) 1.3 05/08/2011 <0.2 (L) 1.1 Thyrogen 07/24/2011 <0.2 (L) 1.5 01/23/2012 <0.2 (L) 1.0 07/27/2012 <0.2 (L) <1.0 02/18/2013 <0.2 (L) <1.0 08/12/2013 <0.2 (L) <1.0 * mRNA (11/03/09): TSH-R mRNA=1.7 ng/ug (11/30/09): TSH-R mRNA=1.8 ng/ug (01/18/10): no TSH-R mRNA assay postop (07/05/10): TSH-R mRNA <1.0 ng/ug (12/27/10): TSH-R mRNA <1.0 ng/ug * Ultrasound (01/18/10): no suspicious adenopathy along great vessels or in lateral neck on either side. No masses in thyroid bed. (12/27/10): no suspicious adenopathy along great vessels or in lateral neck on either side. No masses in thyroid bed. (01/24/12): no suspicious adenopathy along great vessels or in lateral neck on either side. No masses in thyroid bed. (08/11/13): no suspicious adenopathy along great vessels or in lateral neck on either side. No masses in thyroid bed. Thyroid nodule 10/20/2009 03/02/2010 Incisional hernia without me ntion of obstruction or gangrene 09/12/2005 08/12/2014 Symptomatic menopausal or fe male climacteric states 04/07/2003 10/15/2017 Diabetes mellitus type 2 03/02/200301/2014 Overview: *Type (): dx type 2 diabetes *Control hx Component Hemoglobin A1C Latest Ref Rng 4.0 - 6.0 % 01/17/2011 6.8 05/08/2011 7.2 07/24/2011 6.8 01/23/2012 6.7 07/27/2012 6.1 (H) 02/18/2013 6.4 (H) 08/08/2013 7.0 (H) 10/13/2013 7.1 (H) 02/17/14 7.3 * Eye hx (10/2008): no DM changes per Dr. Campoverde (07/2013): no DM changes per pt, exam Dr. Campoverde * Renal hx Component Albumin/Creat Ratio Latest Ref Rng 0 - 30 mg/g 04/03/2005 8 05/03/2006 8 03/26/2008 13 01/22/2009 18 02/16/2010 10 07/05/2010 9 05/08/2011 13 08/08/2013 9 * Vascular hx (11/12/13): no hx [place], stroke, Component Latest Ref Rng 02/18/2013 08/12/2013 10/13/2013 Triglyceride 30 - 149 mg/dL 114 123 126 Cholesterol 100 - 199 mg/dL 196 192 187 HDL Cholesterol >55 mg/dL 47 (L) 58 52 (L) VLDL Cholesterol 6 - 40 mg/dL 23 25 25 LDL Cholesterol 60 - 129 mg/dL 126 109 110 Fasting Time FASTING FASTING fasting TC:HDL Ratio 1.00 - 5.00 4.17 3.31 3.60 LDL:HDL Ratio 0.50 - 3.55 2.68 1.88 2.12 Non HDL Cholesterol 90 - 159 mg/dL 149 134 135 * Sleep (11/12/13): has obstructive sleep apnea, uses BiPAP since titration 04/07/13 * Exercise (11/12/13): not exercisnig * Medications (11/12/13): Victoza 1.8 mg daily, metformin 500 mg 2-1-1, * Physician (11/12/13): primary physician is Hayley Malone Morbid obesity 03/02/2003 07/15/2014 HYPERLIPIDEMIA NEC/NOS 06/10 documented as of this encounter (statuses as of 10/24/2023) [facility]11-02-2020 History of Past illness Narrative* Problem Noted Date Diagnosed Date Resolved Date Postoperative abdominal pain 07/12/2020 10/13/2020 Mild protein-calorie malnutrition 06/28/2020 06/29/2020 Infected prosthetic mesh of abdominal wall 06/20/2020 06/30/2020 Obesity, Class II, BMI 35-39.9 06/13/2019 08/16/2020 SBO (small bowel obstruction) 06/07/2019 08/16/2020 Morbid obesity 03/10/2019 06/13/2019 Abnormal cardiovascular stress test 09/11/2017 10/15/2017 Primary osteoarthritis of right hip 11/27/2016 08/18/2020 Trochanteric bursitis of right hip 11/27/2016 08/18/2020 Dyspnea, unspecified 03/08/2016 020 Angiomyolipoma of right kidney 01/11/2016 06/15/2016 Essential hypertension with goal blood pressure less than 140/90 12/13/2015 04/12/2017 Obstructive sleep apnea syndrome 12/13/2015 04/12/2017 Superficial skin infection 08/31/2015 0 03/13/2016 CKD stage 3 due to type 2 diabetes mellitus 02/06/2015 11/16/2018 Overview: Dr. Lilian Vance, nephrology BMI 45.0-49.9, adult 02/06/2015 020 Venous insufficiency 02/06/2015 017 DM type 2 causing CKD stage 3 09/21/2014 03/05/2019 Overview: Dr Landen Best, endocrinology Degenerative arthritis of hip 07/01/2014 08/16/2020 BMI 45.0-49.9, adult 03/31/2014 015 Diabetes mellitus type II, uncontrolled 11/25/2013 02/06/2015 BMI 40.0-44.9, adult 10/14/2013 014 Chest pain 09/13/2012 03/13/2016 Overview: Substernal pressure lasting ~5hrs, partially relieved with SLN. Significant risk factors for CAD (HTN, HLD, DM). EKG does to show ST changes. Initial CE at [facility] are supposedly negative. Prior stress test in 2010 was normal. DM well controlled. Currently low likelihood for ACS. - EKG - trend Donald - stress test vs [facility] S/P total knee replacement using cement 07/02/2012 07/15/2018 Degenerative arthritis of right knee 06/10/2012 08/12/2014 Allergic contact dermatitis due to metals 05/21/2012 08/16/2020 Sensorineural hearing loss, bilateral 07/19/2011 08/16/2020 Diverticulosis 08/23/2010 03/13/2016 Thyroid CA 02/21/2010 08/12/2014 Overview: * Surgery (12/15/09): total thyroidectomy, Dr. Jamey Ibrahim, [facility] * Path (10/29/09): FNA Atypical cells present in a background of cyst contents, suspicious for papillary thyroid carcinoma (12/15/09): single well-circumscribed nodule in the right inferior lobe, which measured 3.5 cm in greatest dimension. The nodule was extensively hemorrhagic and cystic with a rim of viable material which ranges in appearance from papillary architecture to follicular structures. There is no evidence of a higher grade component. There is no definitive lymphovascular space invasion identified. In some areas, the tumor cells have oncocytic cytoplasm, however, the cells do not meet criteria for tall-cell variant of papillary thyroid carcinoma. * SIDDIQI (02/17/10): Rx 131-Iodine 102.4 mCi, Thyrogen-stim * Scan (02/24/10): post-treatment scan (Thyrogen-stim) shows uptake in left neck, also in liver area. SPECT images show one focus of uptake in lateral segment of the left lobe of the liver, one in the medial segment of the left lobe of liver, and one in the posterior segment of the right lobe of the liver. (05/03/11): Thyrogen stim 123-Iodine scan negative * Thyroglobulin Component Thyroglobulin TG Antibody Screen Stimulation Latest Ref Rng 0.8 - 49.0 ng/mL <14.4 IU/mL 11/05/2009 75.7 (H) 1.0 01/18/2010 <0.2 (L) 1.1 02/16/2010 0.3 (L) 1.0 Thyrogen 07/05/2010 <0.2 (L) 1.3 12/27/2010 <0.2 (L) 1.3 05/08/2011 <0.2 (L) 1.1 Thyrogen 07/24/2011 <0.2 (L) 1.5 01/23/2012 <0.2 (L) 1.0 07/27/2012 <0.2 (L) <1.0 02/18/2013 <0.2 (L) <1.0 08/12/2013 <0.2 (L) <1.0 * mRNA (11/03/09): TSH-R mRNA=1.7 ng/ug (11/30/09): TSH-R mRNA=1.8 ng/ug (01/18/10): no TSH-R mRNA assay postop (07/05/10): TSH-R mRNA <1.0 ng/ug (12/27/10): TSH-R mRNA <1.0 ng/ug * Ultrasound (01/18/10): no suspicious adenopathy along great vessels or in lateral neck on either side. No masses in thyroid bed. (12/27/10): no suspicious adenopathy along great vessels or in lateral neck on either side. No masses in thyroid bed. (01/24/12): no suspicious adenopathy along great vessels or in lateral neck on either side. No masses in thyroid bed. (08/11/13): no suspicious adenopathy along great vessels or in lateral neck on either side. No masses in thyroid bed. Thyroid nodule 10/20/2009 03/02/2010 Incisional hernia without me ntion of obstruction or gangrene 09/12/2005 08/12/2014 Symptomatic menopausal or fe male climacteric states 04/07/2003 10/15/2017 Diabetes mellitus type 2 03/02/200301/2014 Overview: *Type (): dx type 2 diabetes *Control hx Component Hemoglobin A1C Latest Ref Rng 4.0 - 6.0 % 01/17/2011 6.8 05/08/2011 7.2 07/24/2011 6.8 01/23/2012 6.7 07/27/2012 6.1 (H) 02/18/2013 6.4 (H) 08/08/2013 7.0 (H) 10/13/2013 7.1 (H) 02/17/14 7.3 * Eye hx (10/2008): no DM changes per Dr. Campoverde (07/2013): no DM changes per pt, exam Dr. Campoverde * Renal hx Component Albumin/Creat Ratio Latest Ref Rng 0 - 30 mg/g 04/03/2005 8 05/03/2006 8 03/26/2008 13 01/22/2009 18 02/16/2010 10 07/05/2010 9 05/08/2011 13 08/08/2013 9 * Vascular hx (11/12/13): no hx [place], stroke, Component Latest Ref Rng 02/18/2013 08/12/2013 10/13/2013 Triglyceride 30 - 149 mg/dL 114 123 126 Cholesterol 100 - 199 mg/dL 196 192 187 HDL Cholesterol >55 mg/dL 47 (L) 58 52 (L) VLDL Cholesterol 6 - 40 mg/dL 23 25 25 LDL Cholesterol 60 - 129 mg/dL 126 109 110 Fasting Time FASTING FASTING fasting TC:HDL Ratio 1.00 - 5.00 4.17 3.31 3.60 LDL:HDL Ratio 0.50 - 3.55 2.68 1.88 2.12 Non HDL Cholesterol 90 - 159 mg/dL 149 134 135 * Sleep (11/12/13): has obstructive sleep apnea, uses BiPAP since titration 04/07/13 * Exercise (11/12/13): not exercisnig * Medications (11/12/13): Victoza 1.8 mg daily, metformin 500 mg 2-1-1, * Physician (11/12/13): primary physician is Hayley Malone Morbid obesity 03/02/2003 07/15/2014 HYPERLIPIDEMIA NEC/NOS 06/10 documented as of this encounter (statuses as of 10/24/2023) [facility]11-[facility]2020 History of Past illness Narrative* Problem Noted Date Diagnosed Date Resolved Date Postoperative abdominal pain 07/12/2020 10/13/2020 Mild protein-calorie malnutrition 06/28/2020 06/29/2020 Infected prosthetic mesh of abdominal wall 06/20/2020 06/30/2020 Obesity, Class II, BMI 35-39.9 06/13/2019 08/16/2020 SBO (small bowel obstruction) 06/07/2019 08/16/2020 Morbid obesity 03/10/2019 06/13/2019 Abnormal cardiovascular stress test 09/11/2017 10/15/2017 Primary osteoarthritis of right hip 11/27/2016 08/18/2020 Trochanteric bursitis of right hip 11/27/2016 08/18/2020 Dyspnea, unspecified 03/08/2016 020 Angiomyolipoma of right kidney 01/11/2016 06/15/2016 Essential hypertension with goal blood pressure less than 140/90 12/13/2015 04/12/2017 Obstructive sleep apnea syndrome 12/13/2015 04/12/2017 Superficial skin infection 08/31/2015 0 03/13/2016 CKD stage 3 due to type 2 diabetes mellitus 02/06/2015 11/16/2018 Overview: Dr. Lilian Vance, nephrology BMI 45.0-49.9, adult 02/06/2015 020 Venous insufficiency 02/06/2015 017 DM type 2 causing CKD stage 3 09/21/2014 03/05/2019 Overview: Dr Landen Best, endocrinology Degenerative arthritis of hip 07/01/2014 08/16/2020 BMI 45.0-49.9, adult 03/31/2014 015 Diabetes mellitus type II, uncontrolled 11/25/2013 02/06/2015 BMI 40.0-44.9, adult 10/14/2013 014 Chest pain 09/13/2012 03/13/2016 Overview: Substernal pressure lasting ~5hrs, partially relieved with SLN. Significant risk factors for CAD (HTN, HLD, DM). EKG does to show ST changes. Initial CE at [facility] are supposedly negative. Prior stress test in 2010 was normal. DM well controlled. Currently low likelihood for ACS. - EKG - trend Donald - stress test vs [facility] S/P total knee replacement using cement 07/02/2012 07/15/2018 Degenerative arthritis of right knee 06/10/2012 08/12/2014 Allergic contact dermatitis due to metals 05/21/2012 08/16/2020 Sensorineural hearing loss, bilateral 07/19/2011 08/16/2020 Diverticulosis 08/23/2010 03/13/2016 Thyroid CA 02/21/2010 08/12/2014 Overview: * Surgery (12/15/09): total thyroidectomy, Dr. Jamey Ibrahim, [facility] * Path (10/29/09): FNA Atypical cells present in a background of cyst contents, suspicious for papillary thyroid carcinoma (12/15/09): single well-circumscribed nodule in the right inferior lobe, which measured 3.5 cm in greatest dimension. The nodule was extensively hemorrhagic and cystic with a rim of viable material which ranges in appearance from papillary architecture to follicular structures. There is no evidence of a higher grade component. There is no definitive lymphovascular space invasion identified. In some areas, the tumor cells have oncocytic cytoplasm, however, the cells do not meet criteria for tall-cell variant of papillary thyroid carcinoma. * SIDDIQI (02/17/10): Rx 131-Iodine 102.4 mCi, Thyrogen-stim * Scan (02/24/10): post-treatment scan (Thyrogen-stim) shows uptake in left neck, also in liver area. SPECT images show one focus of uptake in lateral segment of the left lobe of the liver, one in the medial segment of the left lobe of liver, and one in the posterior segment of the right lobe of the liver. (05/03/11): Thyrogen stim 123-Iodine scan negative * Thyroglobulin Component Thyroglobulin TG Antibody Screen Stimulation Latest Ref Rng 0.8 - 49.0 ng/mL <14.4 IU/mL 11/05/2009 75.7 (H) 1.0 01/18/2010 <0.2 (L) 1.1 02/16/2010 0.3 (L) 1.0 Thyrogen 07/05/2010 <0.2 (L) 1.3 12/27/2010 <0.2 (L) 1.3 05/08/2011 <0.2 (L) 1.1 Thyrogen 07/24/2011 <0.2 (L) 1.5 01/23/2012 <0.2 (L) 1.0 07/27/2012 <0.2 (L) <1.0 02/18/2013 <0.2 (L) <1.0 08/12/2013 <0.2 (L) <1.0 * mRNA (11/03/09): TSH-R mRNA=1.7 ng/ug (11/30/09): TSH-R mRNA=1.8 ng/ug (01/18/10): no TSH-R mRNA assay postop (07/05/10): TSH-R mRNA <1.0 ng/ug (12/27/10): TSH-R mRNA <1.0 ng/ug * Ultrasound (01/18/10): no suspicious adenopathy along great vessels or in lateral neck on either side. No masses in thyroid bed. (12/27/10): no suspicious adenopathy along great vessels or in lateral neck on either side. No masses in thyroid bed. (01/24/12): no suspicious adenopathy along great vessels or in lateral neck on either side. No masses in thyroid bed. (08/11/13): no suspicious adenopathy along great vessels or in lateral neck on either side. No masses in thyroid bed. Thyroid nodule 10/20/2009 03/02/2010 Incisional hernia without me ntion of obstruction or gangrene 09/12/2005 08/12/2014 Symptomatic menopausal or fe male climacteric states 04/07/2003 10/15/2017 Diabetes mellitus type 2 03/02/200301/2014 Overview: *Type (): dx type 2 diabetes *Control hx Component Hemoglobin A1C Latest Ref Rng 4.0 - 6.0 % 01/17/2011 6.8 05/08/2011 7.2 07/24/2011 6.8 01/23/2012 6.7 07/27/2012 6.1 (H) 02/18/2013 6.4 (H) 08/08/2013 7.0 (H) 10/13/2013 7.1 (H) 02/17/14 7.3 * Eye hx (10/2008): no DM changes per Dr. Campoverde (07/2013): no DM changes per pt, exam Dr. Campoverde * Renal hx Component Albumin/Creat Ratio Latest Ref Rng 0 - 30 mg/g 04/03/2005 8 05/03/2006 8 03/26/2008 13 01/22/2009 18 02/16/2010 10 07/05/2010 9 05/08/2011 13 08/08/2013 9 * Vascular hx (11/12/13): no hx [place], stroke, Component Latest Ref Rng 02/18/2013 08/12/2013 10/13/2013 Triglyceride 30 - 149 mg/dL 114 123 126 Cholesterol 100 - 199 mg/dL 196 192 187 HDL Cholesterol >55 mg/dL 47 (L) 58 52 (L) VLDL Cholesterol 6 - 40 mg/dL 23 25 25 LDL Cholesterol 60 - 129 mg/dL 126 109 110 Fasting Time FASTING FASTING fasting TC:HDL Ratio 1.00 - 5.00 4.17 3.31 3.60 LDL:HDL Ratio 0.50 - 3.55 2.68 1.88 2.12 Non HDL Cholesterol 90 - 159 mg/dL 149 134 135 * Sleep (11/12/13): has obstructive sleep apnea, uses BiPAP since titration 04/07/13 * Exercise (11/12/13): not exercisnig * Medications (11/12/13): Victoza 1.8 mg daily, metformin 500 mg 2-1-1, * Physician (11/12/13): primary physician is Hayley Malone Morbid obesity 03/02/2003 07/15/2014 HYPERLIPIDEMIA NEC/NOS 06/10 documented as of this encounter (statuses as of 10/25/2023) [facility] History of Past illness Narrative* Problem Noted Date Diagnosed Date Resolved Date Postoperative abdominal pain 07/12/2020 10/13/2020 Mild protein-calorie malnutrition 06/28/2020 06/29/2020 Infected prosthetic mesh of abdominal wall 06/20/2020 06/30/2020 Obesity, Class II, BMI 35-39.9 06/13/2019 08/16/2020 SBO (small bowel obstruction) 06/07/2019 08/16/2020 Morbid obesity 03/10/2019 06/13/2019 Abnormal cardiovascular stress test 09/11/2017 10/15/2017 Primary osteoarthritis of right hip 11/27/2016 08/18/2020 Trochanteric bursitis of right hip 11/27/2016 08/18/2020 Dyspnea, unspecified 03/08/2016 020 Angiomyolipoma of right kidney 01/11/2016 06/15/2016 Essential hypertension with goal blood pressure less than 140/90 12/13/2015 04/12/2017 Obstructive sleep apnea syndrome 12/13/2015 04/12/2017 Superficial skin infection 08/31/2015 0 03/13/2016 CKD stage 3 due to type 2 diabetes mellitus 02/06/2015 11/16/2018 Overview: Dr. Lilian Vance, nephrology BMI 45.0-49.9, adult 02/06/2015 020 Venous insufficiency 02/06/2015 017 DM type 2 causing CKD stage 3 09/21/2014 03/05/2019 Overview: Dr Landen Best, endocrinology Degenerative arthritis of hip 07/01/2014 08/16/2020 BMI 45.0-49.9, adult 03/31/2014 015 Diabetes mellitus type II, uncontrolled 11/25/2013 02/06/2015 BMI 40.0-44.9, adult 10/14/2013 014 Chest pain 09/13/2012 03/13/2016 Overview: Substernal pressure lasting ~5hrs, partially relieved with SLN. Significant risk factors for CAD (HTN, HLD, DM). EKG does to show ST changes. Initial CE at [facility] are supposedly negative. Prior stress test in 2010 was normal. DM well controlled. Currently low likelihood for ACS. - EKG - trend [facility] - stress test vs [facility] S/P total knee replacement using cement 07/02/2012 07/15/2018 Degenerative arthritis of right knee 06/10/2012 08/12/2014 Allergic contact dermatitis due to metals 05/21/2012 08/16/2020 Sensorineural hearing loss, bilateral 07/19/2011 08/16/2020 Diverticulosis 08/23/2010 03/13/2016 Thyroid CA 02/21/2010 08/12/2014 Overview: * Surgery (12/15/09): total thyroidectomy, Dr. Jamey Ibrahim, [facility] * Path (10/29/09): FNA Atypical cells present in a background of cyst contents, suspicious for papillary thyroid carcinoma (12/15/09): single well-circumscribed nodule in the right inferior lobe, which measured 3.5 cm in greatest dimension. The nodule was extensively hemorrhagic and cystic with a rim of viable material which ranges in appearance from papillary architecture to follicular structures. There is no evidence of a higher grade component. There is no definitive lymphovascular space invasion identified. In some areas, the tumor cells have oncocytic cytoplasm, however, the cells do not meet criteria for tall-cell variant of papillary thyroid carcinoma. * SIDDIQI (02/17/10): Rx 131-Iodine 102.4 mCi, Thyrogen-stim * Scan (02/24/10): post-treatment scan (Thyrogen-stim) shows uptake in left neck, also in liver area. SPECT images show one focus of uptake in lateral segment of the left lobe of the liver, one in the medial segment of the left lobe of liver, and one in the posterior segment of the right lobe of the liver. (05/03/11): Thyrogen stim 123-Iodine scan negative * Thyroglobulin Component Thyroglobulin TG Antibody Screen Stimulation Latest Ref Rng 0.8 - 49.0 ng/mL <14.4 IU/mL 11/05/2009 75.7 (H) 1.0 01/18/2010 <0.2 (L) 1.1 02/16/2010 0.3 (L) 1.0 Thyrogen 07/05/2010 <0.2 (L) 1.3 12/27/2010 <0.2 (L) 1.3 05/08/2011 <0.2 (L) 1.1 Thyrogen 07/24/2011 <0.2 (L) 1.5 01/23/2012 <0.2 (L) 1.0 07/27/2012 <0.2 (L) <1.0 02/18/2013 <0.2 (L) <1.0 08/12/2013 <0.2 (L) <1.0 * mRNA (11/03/09): TSH-R mRNA=1.7 ng/ug (11/30/09): TSH-R mRNA=1.8 ng/ug (01/18/10): no TSH-R mRNA assay postop (07/05/10): TSH-R mRNA <1.0 ng/ug (12/27/10): TSH-R mRNA <1.0 ng/ug * Ultrasound (01/18/10): no suspicious adenopathy along great vessels or in lateral neck on either side. No masses in thyroid bed. (12/27/10): no suspicious adenopathy along great vessels or in lateral neck on either side. No masses in thyroid bed. (01/24/12): no suspicious adenopathy along great vessels or in lateral neck on either side. No masses in thyroid bed. (08/11/13): no suspicious adenopathy along great vessels or in lateral neck on either side. No masses in thyroid bed. Thyroid nodule 10/20/2009 03/02/2010 Incisional hernia without me ntion of obstruction or gangrene 09/12/2005 08/12/2014 Symptomatic menopausal or fe male climacteric states 04/07/2003 10/15/2017 Diabetes mellitus type 2 03/02/200301/2014 Overview: *Type (): dx type 2 diabetes *Control hx Component Hemoglobin A1C Latest Ref Rng 4.0 - 6.0 % 01/17/2011 6.8 05/08/2011 7.2 07/24/2011 6.8 01/23/2012 6.7 07/27/2012 6.1 (H) 02/18/2013 6.4 (H) 08/08/2013 7.0 (H) 10/13/2013 7.1 (H) 02/17/14 7.3 * Eye hx (10/2008): no DM changes per Dr. Campoverde (07/2013): no DM changes per pt, exam Dr. Campoverde * Renal hx Component Albumin/Creat Ratio Latest Ref Rng 0 - 30 mg/g 04/03/2005 8 05/03/2006 8 03/26/2008 13 01/22/2009 18 02/16/2010 10 07/05/2010 9 05/08/2011 13 08/08/2013 9 * Vascular hx (11/12/13): no hx [place], stroke, Component Latest Ref Rng 02/18/2013 08/12/2013 10/13/2013 Triglyceride 30 - 149 mg/dL 114 123 126 Cholesterol 100 - 199 mg/dL 196 192 187 HDL Cholesterol >55 mg/dL 47 (L) 58 52 (L) VLDL Cholesterol 6 - 40 mg/dL 23 25 25 LDL Cholesterol 60 - 129 mg/dL 126 109 110 Fasting Time FASTING FASTING fasting TC:HDL Ratio 1.00 - 5.00 4.17 3.31 3.60 LDL:HDL Ratio 0.50 - 3.55 2.68 1.88 2.12 Non HDL Cholesterol 90 - 159 mg/dL 149 134 135 * Sleep (11/12/13): has obstructive sleep apnea, uses BiPAP since titration 04/07/13 * Exercise (11/12/13): not exercisnig * Medications (11/12/13): Victoza 1.8 mg daily, metformin 500 mg 2-1-1, * Physician (11/12/13): primary physician is Hayley Malone Morbid obesity 03/02/2003 07/15/2014 HYPERLIPIDEMIA NEC/NOS 06/10 documented as of this encounter (statuses as of 11/04/2023) [facility]11-02-2020 History of Past illness Narrative* Problem Noted Date Diagnosed Date Resolved Date Postoperative abdominal pain 07/12/2020 10/13/2020 Mild protein-calorie malnutrition 06/28/2020 06/29/2020 Infected prosthetic mesh of abdominal wall 06/20/2020 06/30/2020 Obesity, Class II, BMI 35-39.9 06/13/2019 08/16/2020 SBO (small bowel obstruction) 06/07/2019 08/16/2020 Morbid obesity 03/10/2019 06/13/2019 Abnormal cardiovascular stress test 09/11/2017 10/15/2017 Primary osteoarthritis of right hip 11/27/2016 08/18/2020 Trochanteric bursitis of right hip 11/27/2016 08/18/2020 Dyspnea, unspecified 03/08/2016 020 Angiomyolipoma of right kidney 01/11/2016 06/15/2016 Essential hypertension with goal blood pressure less than 140/90 12/13/2015 04/12/2017 Obstructive sleep apnea syndrome 12/13/2015 04/12/2017 Superficial skin infection 08/31/2015 0 03/13/2016 CKD stage 3 due to type 2 diabetes mellitus 02/06/2015 11/16/2018 Overview: Dr. Lilian Vance, nephrology BMI 45.0-49.9, adult 02/06/2015 020 Venous insufficiency 02/06/2015 017 DM type 2 causing CKD stage 3 09/21/2014 03/05/2019 Overview: Dr Landen Best, endocrinology Degenerative arthritis of hip 07/01/2014 08/16/2020 BMI 45.0-49.9, adult 03/31/2014 015 Diabetes mellitus type II, uncontrolled 11/25/2013 02/06/2015 BMI 40.0-44.9, adult 10/14/2013 014 Chest pain 09/13/2012 03/13/2016 Overview: Substernal pressure lasting ~5hrs, partially relieved with SLN. Significant risk factors for CAD (HTN, HLD, DM). EKG does to show ST changes. Initial CE at [facility] are supposedly negative. Prior stress test in 2010 was normal. DM well controlled. Currently low likelihood for ACS. - EKG - trend Donald - stress test vs [facility] S/P total knee replacement using cement 07/02/2012 07/15/2018 Degenerative arthritis of right knee 06/10/2012 08/12/2014 Allergic contact dermatitis due to metals 05/21/2012 08/16/2020 Sensorineural hearing loss, bilateral 07/19/2011 08/16/2020 Diverticulosis 08/23/2010 03/13/2016 Thyroid CA 02/21/2010 08/12/2014 Overview: * Surgery (12/15/09): total thyroidectomy, Dr. Jamey Ibrahim, [facility] * Path (10/29/09): FNA Atypical cells present in a background of cyst contents, suspicious for papillary thyroid carcinoma (12/15/09): single well-circumscribed nodule in the right inferior lobe, which measured 3.5 cm in greatest dimension. The nodule was extensively hemorrhagic and cystic with a rim of viable material which ranges in appearance from papillary architecture to follicular structures. There is no evidence of a higher grade component. There is no definitive lymphovascular space invasion identified. In some areas, the tumor cells have oncocytic cytoplasm, however, the cells do not meet criteria for tall-cell variant of papillary thyroid carcinoma. * SIDDIQI (02/17/10): Rx 131-Iodine 102.4 mCi, Thyrogen-stim * Scan (02/24/10): post-treatment scan (Thyrogen-stim) shows uptake in left neck, also in liver area. SPECT images show one focus of uptake in lateral segment of the left lobe of the liver, one in the medial segment of the left lobe of liver, and one in the posterior segment of the right lobe of the liver. (05/03/11): Thyrogen stim 123-Iodine scan negative * Thyroglobulin Component Thyroglobulin TG Antibody Screen Stimulation Latest Ref Rng 0.8 - 49.0 ng/mL <14.4 IU/mL 11/05/2009 75.7 (H) 1.0 01/18/2010 <0.2 (L) 1.1 02/16/2010 0.3 (L) 1.0 Thyrogen 07/05/2010 <0.2 (L) 1.3 12/27/2010 <0.2 (L) 1.3 05/08/2011 <0.2 (L) 1.1 Thyrogen 07/24/2011 <0.2 (L) 1.5 01/23/2012 <0.2 (L) 1.0 07/27/2012 <0.2 (L) <1.0 02/18/2013 <0.2 (L) <1.0 08/12/2013 <0.2 (L) <1.0 * mRNA (11/03/09): TSH-R mRNA=1.7 ng/ug (11/30/09): TSH-R mRNA=1.8 ng/ug (01/18/10): no TSH-R mRNA assay postop (07/05/10): TSH-R mRNA <1.0 ng/ug (12/27/10): TSH-R mRNA <1.0 ng/ug * Ultrasound (01/18/10): no suspicious adenopathy along great vessels or in lateral neck on either side. No masses in thyroid bed. (12/27/10): no suspicious adenopathy along great vessels or in lateral neck on either side. No masses in thyroid bed. (01/24/12): no suspicious adenopathy along great vessels or in lateral neck on either side. No masses in thyroid bed. (08/11/13): no suspicious adenopathy along great vessels or in lateral neck on either side. No masses in thyroid bed. Thyroid nodule 10/20/2009 03/02/2010 Incisional hernia without me ntion of obstruction or gangrene 09/12/2005 08/12/2014 Symptomatic menopausal or fe male climacteric states 04/07/2003 10/15/2017 Diabetes mellitus type 2 03/02/200301/2014 Overview: *Type (): dx type 2 diabetes *Control hx Component Hemoglobin A1C Latest Ref Rng 4.0 - 6.0 % 01/17/2011 6.8 05/08/2011 7.2 07/24/2011 6.8 01/23/2012 6.7 07/27/2012 6.1 (H) 02/18/2013 6.4 (H) 08/08/2013 7.0 (H) 10/13/2013 7.1 (H) 02/17/14 7.3 * Eye hx (10/2008): no DM changes per Dr. Campoverde (07/2013): no DM changes per pt, exam Dr. Campoverde * Renal hx Component Albumin/Creat Ratio Latest Ref Rng 0 - 30 mg/g 04/03/2005 8 05/03/2006 8 03/26/2008 13 01/22/2009 18 02/16/2010 10 07/05/2010 9 05/08/2011 13 08/08/2013 9 * Vascular hx (11/12/13): no hx [place], stroke, Component Latest Ref Rng 02/18/2013 08/12/2013 10/13/2013 Triglyceride 30 - 149 mg/dL 114 123 126 Cholesterol 100 - 199 mg/dL 196 192 187 HDL Cholesterol >55 mg/dL 47 (L) 58 52 (L) VLDL Cholesterol 6 - 40 mg/dL 23 25 25 LDL Cholesterol 60 - 129 mg/dL 126 109 110 Fasting Time FASTING FASTING fasting TC:HDL Ratio 1.00 - 5.00 4.17 3.31 3.60 LDL:HDL Ratio 0.50 - 3.55 2.68 1.88 2.12 Non HDL Cholesterol 90 - 159 mg/dL 149 134 135 * Sleep (11/12/13): has obstructive sleep apnea, uses BiPAP since titration 04/07/13 * Exercise (11/12/13): not exercisnig * Medications (11/12/13): Victoza 1.8 mg daily, metformin 500 mg 2-1-1, * Physician (11/12/13): primary physician is Hayley Malone Morbid obesity 03/02/2003 07/15/2014 HYPERLIPIDEMIA NEC/NOS 06/10 documented as of this encounter (statuses as of 11/14/2023) [facility]11-02-2020 History of Past illness Narrative* Problem Noted Date Diagnosed Date Resolved Date Postoperative abdominal pain 07/12/2020 10/13/2020 Mild protein-calorie malnutrition 06/28/2020 06/29/2020 Infected prosthetic mesh of abdominal wall 06/20/2020 06/30/2020 Obesity, Class II, BMI 35-39.9 06/13/2019 08/16/2020 SBO (small bowel obstruction) 06/07/2019 08/16/2020 Morbid obesity 03/10/2019 06/13/2019 Abnormal cardiovascular stress test 09/11/2017 10/15/2017 Primary osteoarthritis of right hip 11/27/2016 08/18/2020 Trochanteric bursitis of right hip 11/27/2016 08/18/2020 Dyspnea, unspecified 03/08/2016 020 Angiomyolipoma of right kidney 01/11/2016 06/15/2016 Essential hypertension with goal blood pressure less than 140/90 12/13/2015 04/12/2017 Obstructive sleep apnea syndrome 12/13/2015 04/12/2017 Superficial skin infection 08/31/2015 0 03/13/2016 CKD stage 3 due to type 2 diabetes mellitus 02/06/2015 11/16/2018 Overview: Dr. Lilian Vance, nephrology BMI 45.0-49.9, adult 02/06/2015 020 Venous insufficiency 02/06/2015 017 DM type 2 causing CKD stage 3 09/21/2014 03/05/2019 Overview: Dr Landen Best, endocrinology Degenerative arthritis of hip 07/01/2014 08/16/2020 BMI 45.0-49.9, adult 03/31/2014 015 Diabetes mellitus type II, uncontrolled 11/25/2013 02/06/2015 BMI 40.0-44.9, adult 10/14/2013 014 Chest pain 09/13/2012 03/13/2016 Overview: Substernal pressure lasting ~5hrs, partially relieved with SLN. Significant risk factors for CAD (HTN, HLD, DM). EKG does to show ST changes. Initial CE at [facility] are supposedly negative. Prior stress test in 2010 was normal. DM well controlled. Currently low likelihood for ACS. - EKG - trend Donald - stress test vs [facility] S/P total knee replacement using cement 07/02/2012 07/15/2018 Degenerative arthritis of right knee 06/10/2012 08/12/2014 Allergic contact dermatitis due to metals 05/21/2012 08/16/2020 Sensorineural hearing loss, bilateral 07/19/2011 08/16/2020 Diverticulosis 08/23/2010 03/13/2016 Thyroid CA 02/21/2010 08/12/2014 Overview: * Surgery (12/15/09): total thyroidectomy, Dr. Jamey Ibrahim, [facility] * Path (10/29/09): FNA Atypical cells present in a background of cyst contents, suspicious for papillary thyroid carcinoma (12/15/09): single well-circumscribed nodule in the right inferior lobe, which measured 3.5 cm in greatest dimension. The nodule was extensively hemorrhagic and cystic with a rim of viable material which ranges in appearance from papillary architecture to follicular structures. There is no evidence of a higher grade component. There is no definitive lymphovascular space invasion identified. In some areas, the tumor cells have oncocytic cytoplasm, however, the cells do not meet criteria for tall-cell variant of papillary thyroid carcinoma. * SIDDIQI (02/17/10): Rx 131-Iodine 102.4 mCi, Thyrogen-stim * Scan (02/24/10): post-treatment scan (Thyrogen-stim) shows uptake in left neck, also in liver area. SPECT images show one focus of uptake in lateral segment of the left lobe of the liver, one in the medial segment of the left lobe of liver, and one in the posterior segment of the right lobe of the liver. (05/03/11): Thyrogen stim 123-Iodine scan negative * Thyroglobulin Component Thyroglobulin TG Antibody Screen Stimulation Latest Ref Rng 0.8 - 49.0 ng/mL <14.4 IU/mL 11/05/2009 75.7 (H) 1.0 01/18/2010 <0.2 (L) 1.1 02/16/2010 0.3 (L) 1.0 Thyrogen 07/05/2010 <0.2 (L) 1.3 12/27/2010 <0.2 (L) 1.3 05/08/2011 <0.2 (L) 1.1 Thyrogen 07/24/2011 <0.2 (L) 1.5 01/23/2012 <0.2 (L) 1.0 07/27/2012 <0.2 (L) <1.0 02/18/2013 <0.2 (L) <1.0 08/12/2013 <0.2 (L) <1.0 * mRNA (11/03/09): TSH-R mRNA=1.7 ng/ug (11/30/09): TSH-R mRNA=1.8 ng/ug (01/18/10): no TSH-R mRNA assay postop (07/05/10): TSH-R mRNA <1.0 ng/ug (12/27/10): TSH-R mRNA <1.0 ng/ug * Ultrasound (01/18/10): no suspicious adenopathy along great vessels or in lateral neck on either side. No masses in thyroid bed. (12/27/10): no suspicious adenopathy along great vessels or in lateral neck on either side. No masses in thyroid bed. (01/24/12): no suspicious adenopathy along great vessels or in lateral neck on either side. No masses in thyroid bed. (08/11/13): no suspicious adenopathy along great vessels or in lateral neck on either side. No masses in thyroid bed. Thyroid nodule 10/20/2009 03/02/2010 Incisional hernia without me ntion of obstruction or gangrene 09/12/2005 08/12/2014 Symptomatic menopausal or fe male climacteric states 04/07/2003 10/15/2017 Diabetes mellitus type 2 03/02/200301/2014 Overview: *Type (): dx type 2 diabetes *Control hx Component Hemoglobin A1C Latest Ref Rng 4.0 - 6.0 % 01/17/2011 6.8 05/08/2011 7.2 07/24/2011 6.8 01/23/2012 6.7 07/27/2012 6.1 (H) 02/18/2013 6.4 (H) 08/08/2013 7.0 (H) 10/13/2013 7.1 (H) 02/17/14 7.3 * Eye hx (10/2008): no DM changes per Dr. Campoverde (07/2013): no DM changes per pt, exam Dr. Campoverde * Renal hx Component Albumin/Creat Ratio Latest Ref Rng 0 - 30 mg/g 04/03/2005 8 05/03/2006 8 03/26/2008 13 01/22/2009 18 02/16/2010 10 07/05/2010 9 05/08/2011 13 08/08/2013 9 * Vascular hx (11/12/13): no hx [place], stroke, Component Latest Ref Rng 02/18/2013 08/12/2013 10/13/2013 Triglyceride 30 - 149 mg/dL 114 123 126 Cholesterol 100 - 199 mg/dL 196 192 187 HDL Cholesterol >55 mg/dL 47 (L) 58 52 (L) VLDL Cholesterol 6 - 40 mg/dL 23 25 25 LDL Cholesterol 60 - 129 mg/dL 126 109 110 Fasting Time FASTING FASTING fasting TC:HDL Ratio 1.00 - 5.00 4.17 3.31 3.60 LDL:HDL Ratio 0.50 - 3.55 2.68 1.88 2.12 Non HDL Cholesterol 90 - 159 mg/dL 149 134 135 * Sleep (11/12/13): has obstructive sleep apnea, uses BiPAP since titration 04/07/13 * Exercise (11/12/13): not exercisnig * Medications (11/12/13): Victoza 1.8 mg daily, metformin 500 mg 2-1-1, * Physician (11/12/13): primary physician is Hayley Malone Morbid obesity 03/02/2003 07/15/2014 HYPERLIPIDEMIA NEC/NOS 06/10 documented as of this encounter (statuses as of 11/28/2023) [facility]11-[facility]2020 History of Past illness Narrative* Problem Noted Date Diagnosed Date Resolved Date Postoperative abdominal pain 07/12/2020 10/13/2020 Mild protein-calorie malnutrition 06/28/2020 06/29/2020 Infected prosthetic mesh of abdominal wall 06/20/2020 06/30/2020 Obesity, Class II, BMI 35-39.9 06/13/2019 08/16/2020 SBO (small bowel obstruction) 06/07/2019 08/16/2020 Morbid obesity 03/10/2019 06/13/2019 Abnormal cardiovascular stress test 09/11/2017 10/15/2017 Primary osteoarthritis of right hip 11/27/2016 08/18/2020 Trochanteric bursitis of right hip 11/27/2016 08/18/2020 Dyspnea, unspecified 03/08/2016 020 Angiomyolipoma of right kidney 01/11/2016 06/15/2016 Essential hypertension with goal blood pressure less than 140/90 12/13/2015 04/12/2017 Obstructive sleep apnea syndrome 12/13/2015 04/12/2017 Superficial skin infection 08/31/2015 0 03/13/2016 CKD stage 3 due to type 2 diabetes mellitus 02/06/2015 11/16/2018 Overview: Dr. Lilian Vance, nephrology BMI 45.0-49.9, adult 02/06/2015 020 Venous insufficiency 02/06/2015 017 DM type 2 causing CKD stage 3 09/21/2014 03/05/2019 Overview: Dr Landen Best, endocrinology Degenerative arthritis of hip 07/01/2014 08/16/2020 BMI 45.0-49.9, adult 03/31/2014 015 Diabetes mellitus type II, uncontrolled 11/25/2013 02/06/2015 BMI 40.0-44.9, adult 10/14/2013 014 Chest pain 09/13/2012 03/13/2016 Overview: Substernal pressure lasting ~5hrs, partially relieved with SLN. Significant risk factors for CAD (HTN, HLD, DM). EKG does to show ST changes. Initial CE at [facility] are supposedly negative. Prior stress test in 2010 was normal. DM well controlled. Currently low likelihood for ACS. - EKG - trend Donald - stress test vs [facility] S/P total knee replacement using cement 07/02/2012 07/15/2018 Degenerative arthritis of right knee 06/10/2012 08/12/2014 Allergic contact dermatitis due to metals 05/21/2012 08/16/2020 Sensorineural hearing loss, bilateral 07/19/2011 08/16/2020 Diverticulosis 08/23/2010 03/13/2016 Thyroid CA 02/21/2010 08/12/2014 Overview: * Surgery (12/15/09): total thyroidectomy, Dr. Jamey Ibrahim, [facility] * Path (10/29/09): FNA Atypical cells present in a background of cyst contents, suspicious for papillary thyroid carcinoma (12/15/09): single well-circumscribed nodule in the right inferior lobe, which measured 3.5 cm in greatest dimension. The nodule was extensively hemorrhagic and cystic with a rim of viable material which ranges in appearance from papillary architecture to follicular structures. There is no evidence of a higher grade component. There is no definitive lymphovascular space invasion identified. In some areas, the tumor cells have oncocytic cytoplasm, however, the cells do not meet criteria for tall-cell variant of papillary thyroid carcinoma. * SIDDIQI (02/17/10): Rx 131-Iodine 102.4 mCi, Thyrogen-stim * Scan (02/24/10): post-treatment scan (Thyrogen-stim) shows uptake in left neck, also in liver area. SPECT images show one focus of uptake in lateral segment of the left lobe of the liver, one in the medial segment of the left lobe of liver, and one in the posterior segment of the right lobe of the liver. (05/03/11): Thyrogen stim 123-Iodine scan negative * Thyroglobulin Component Thyroglobulin TG Antibody Screen Stimulation Latest Ref Rng 0.8 - 49.0 ng/mL <14.4 IU/mL 11/05/2009 75.7 (H) 1.0 01/18/2010 <0.2 (L) 1.1 02/16/2010 0.3 (L) 1.0 Thyrogen 07/05/2010 <0.2 (L) 1.3 12/27/2010 <0.2 (L) 1.3 05/08/2011 <0.2 (L) 1.1 Thyrogen 07/24/2011 <0.2 (L) 1.5 01/23/2012 <0.2 (L) 1.0 07/27/2012 <0.2 (L) <1.0 02/18/2013 <0.2 (L) <1.0 08/12/2013 <0.2 (L) <1.0 * mRNA (11/03/09): TSH-R mRNA=1.7 ng/ug (11/30/09): TSH-R mRNA=1.8 ng/ug (01/18/10): no TSH-R mRNA assay postop (07/05/10): TSH-R mRNA <1.0 ng/ug (12/27/10): TSH-R mRNA <1.0 ng/ug * Ultrasound (01/18/10): no suspicious adenopathy along great vessels or in lateral neck on either side. No masses in thyroid bed. (12/27/10): no suspicious adenopathy along great vessels or in lateral neck on either side. No masses in thyroid bed. (01/24/12): no suspicious adenopathy along great vessels or in lateral neck on either side. No masses in thyroid bed. (08/11/13): no suspicious adenopathy along great vessels or in lateral neck on either side. No masses in thyroid bed. Thyroid nodule 10/20/2009 03/02/2010 Incisional hernia without me ntion of obstruction or gangrene 09/12/2005 08/12/2014 Symptomatic menopausal or fe male climacteric states 04/07/2003 10/15/2017 Diabetes mellitus type 2 03/02/200301/2014 Overview: *Type (): dx type 2 diabetes *Control hx Component Hemoglobin A1C Latest Ref Rng 4.0 - 6.0 % 01/17/2011 6.8 05/08/2011 7.2 07/24/2011 6.8 01/23/2012 6.7 07/27/2012 6.1 (H) 02/18/2013 6.4 (H) 08/08/2013 7.0 (H) 10/13/2013 7.1 (H) 02/17/14 7.3 * Eye hx (10/2008): no DM changes per Dr. Campoverde (07/2013): no DM changes per pt, exam Dr. Campoverde * Renal hx Component Albumin/Creat Ratio Latest Ref Rng 0 - 30 mg/g 04/03/2005 8 05/03/2006 8 03/26/2008 13 01/22/2009 18 02/16/2010 10 07/05/2010 9 05/08/2011 13 08/08/2013 9 * Vascular hx (11/12/13): no hx [place], stroke, Component Latest Ref Rng 02/18/2013 08/12/2013 10/13/2013 Triglyceride 30 - 149 mg/dL 114 123 126 Cholesterol 100 - 199 mg/dL 196 192 187 HDL Cholesterol >55 mg/dL 47 (L) 58 52 (L) VLDL Cholesterol 6 - 40 mg/dL 23 25 25 LDL Cholesterol 60 - 129 mg/dL 126 109 110 Fasting Time FASTING FASTING fasting TC:HDL Ratio 1.00 - 5.00 4.17 3.31 3.60 LDL:HDL Ratio 0.50 - 3.55 2.68 1.88 2.12 Non HDL Cholesterol 90 - 159 mg/dL 149 134 135 * Sleep (11/12/13): has obstructive sleep apnea, uses BiPAP since titration 04/07/13 * Exercise (11/12/13): not exercisnig * Medications (11/12/13): Victoza 1.8 mg daily, metformin 500 mg 2-1-1, * Physician (11/12/13): primary physician is Hayley Malone Morbid obesity 03/02/2003 07/15/2014 HYPERLIPIDEMIA NEC/NOS 06/10 documented as of this encounter (statuses as of 12/03/2023) [facility] History of Past illness Narrative* Problem Noted Date Diagnosed Date Resolved Date Postoperative abdominal pain 07/12/2020 10/13/2020 Mild protein-calorie malnutrition 06/28/2020 06/29/2020 Infected prosthetic mesh of abdominal wall 06/20/2020 06/30/2020 Obesity, Class II, BMI 35-39.9 06/13/2019 08/16/2020 SBO (small bowel obstruction) 06/07/2019 08/16/2020 Morbid obesity 03/10/2019 06/13/2019 Abnormal cardiovascular stress test 09/11/2017 10/15/2017 Primary osteoarthritis of right hip 11/27/2016 08/18/2020 Trochanteric bursitis of right hip 11/27/2016 08/18/2020 Dyspnea, unspecified 03/08/2016 020 Angiomyolipoma of right kidney 01/11/2016 06/15/2016 Essential hypertension with goal blood pressure less than 140/90 12/13/2015 04/12/2017 Obstructive sleep apnea syndrome 12/13/2015 04/12/2017 Superficial skin infection 08/31/2015 0 03/13/2016 CKD stage 3 due to type 2 diabetes mellitus 02/06/2015 11/16/2018 Overview: Dr. Lilian Vance, nephrology BMI 45.0-49.9, adult 02/06/2015 020 Venous insufficiency 02/06/2015 017 DM type 2 causing CKD stage 3 09/21/2014 03/05/2019 Overview: Dr Landen Best, endocrinology Degenerative arthritis of hip 07/01/2014 08/16/2020 BMI 45.0-49.9, adult 03/31/2014 015 Diabetes mellitus type II, uncontrolled 11/25/2013 02/06/2015 BMI 40.0-44.9, adult 10/14/2013 014 Chest pain 09/13/2012 03/13/2016 Overview: Substernal pressure lasting ~5hrs, partially relieved with SLN. Significant risk factors for CAD (HTN, HLD, DM). EKG does to show ST changes. Initial CE at [facility] are supposedly negative. Prior stress test in 2010 was normal. DM well controlled. Currently low likelihood for ACS. - EKG - trend Donald - stress test vs [facility] S/P total knee replacement using cement 07/02/2012 07/15/2018 Degenerative arthritis of right knee 06/10/2012 08/12/2014 Allergic contact dermatitis due to metals 05/21/2012 08/16/2020 Sensorineural hearing loss, bilateral 07/19/2011 08/16/2020 Diverticulosis 08/23/2010 03/13/2016 Thyroid CA 02/21/2010 08/12/2014 Overview: * Surgery (12/15/09): total thyroidectomy, Dr. Jamey Ibrahim, [facility] * Path (10/29/09): FNA Atypical cells present in a background of cyst contents, suspicious for papillary thyroid carcinoma (12/15/09): single well-circumscribed nodule in the right inferior lobe, which measured 3.5 cm in greatest dimension. The nodule was extensively hemorrhagic and cystic with a rim of viable material which ranges in appearance from papillary architecture to follicular structures. There is no evidence of a higher grade component. There is no definitive lymphovascular space invasion identified. In some areas, the tumor cells have oncocytic cytoplasm, however, the cells do not meet criteria for tall-cell variant of papillary thyroid carcinoma. * SIDDIQI (02/17/10): Rx 131-Iodine 102.4 mCi, Thyrogen-stim * Scan (02/24/10): post-treatment scan (Thyrogen-stim) shows uptake in left neck, also in liver area. SPECT images show one focus of uptake in lateral segment of the left lobe of the liver, one in the medial segment of the left lobe of liver, and one in the posterior segment of the right lobe of the liver. (05/03/11): Thyrogen stim 123-Iodine scan negative * Thyroglobulin Component Thyroglobulin TG Antibody Screen Stimulation Latest Ref Rng 0.8 - 49.0 ng/mL <14.4 IU/mL 11/05/2009 75.7 (H) 1.0 01/18/2010 <0.2 (L) 1.1 02/16/2010 0.3 (L) 1.0 Thyrogen 07/05/2010 <0.2 (L) 1.3 12/27/2010 <0.2 (L) 1.3 05/08/2011 <0.2 (L) 1.1 Thyrogen 07/24/2011 <0.2 (L) 1.5 01/23/2012 <0.2 (L) 1.0 07/27/2012 <0.2 (L) <1.0 02/18/2013 <0.2 (L) <1.0 08/12/2013 <0.2 (L) <1.0 * mRNA (11/03/09): TSH-R mRNA=1.7 ng/ug (11/30/09): TSH-R mRNA=1.8 ng/ug (01/18/10): no TSH-R mRNA assay postop (07/05/10): TSH-R mRNA <1.0 ng/ug (12/27/10): TSH-R mRNA <1.0 ng/ug * Ultrasound (01/18/10): no suspicious adenopathy along great vessels or in lateral neck on either side. No masses in thyroid bed. (12/27/10): no suspicious adenopathy along great vessels or in lateral neck on either side. No masses in thyroid bed. (01/24/12): no suspicious adenopathy along great vessels or in lateral neck on either side. No masses in thyroid bed. (08/11/13): no suspicious adenopathy along great vessels or in lateral neck on either side. No masses in thyroid bed. Thyroid nodule 10/20/2009 03/02/2010 Incisional hernia without me ntion of obstruction or gangrene 09/12/2005 08/12/2014 Symptomatic menopausal or fe male climacteric states 04/07/2003 10/15/2017 Diabetes mellitus type 2 03/02/200301/2014 Overview: *Type (): dx type 2 diabetes *Control hx Component Hemoglobin A1C Latest Ref Rng 4.0 - 6.0 % 01/17/2011 6.8 05/08/2011 7.2 07/24/2011 6.8 01/23/2012 6.7 07/27/2012 6.1 (H) 02/18/2013 6.4 (H) 08/08/2013 7.0 (H) 10/13/2013 7.1 (H) 02/17/14 7.3 * Eye hx (10/2008): no DM changes per Dr. Campoverde (07/2013): no DM changes per pt, exam Dr. Campoverde * Renal hx Component Albumin/Creat Ratio Latest Ref Rng 0 - 30 mg/g 04/03/2005 8 05/03/2006 8 03/26/2008 13 01/22/2009 18 02/16/2010 10 07/05/2010 9 05/08/2011 13 08/08/2013 9 * Vascular hx (11/12/13): no hx [place], stroke, Component Latest Ref Rng 02/18/2013 08/12/2013 10/13/2013 Triglyceride 30 - 149 mg/dL 114 123 126 Cholesterol 100 - 199 mg/dL 196 192 187 HDL Cholesterol >55 mg/dL 47 (L) 58 52 (L) VLDL Cholesterol 6 - 40 mg/dL 23 25 25 LDL Cholesterol 60 - 129 mg/dL 126 109 110 Fasting Time FASTING FASTING fasting TC:HDL Ratio 1.00 - 5.00 4.17 3.31 3.60 LDL:HDL Ratio 0.50 - 3.55 2.68 1.88 2.12 Non HDL Cholesterol 90 - 159 mg/dL 149 134 135 * Sleep (11/12/13): has obstructive sleep apnea, uses BiPAP since titration 04/07/13 * Exercise (11/12/13): not exercisnig * Medications (11/12/13): Victoza 1.8 mg daily, metformin 500 mg 2-1-1, * Physician (11/12/13): primary physician is Hayley Malone Morbid obesity 03/02/2003 07/15/2014 HYPERLIPIDEMIA NEC/NOS 06/10 documented as of this encounter (statuses as of 12/03/2023) [facility]11-02-2020 History of Past illness Narrative* Problem Noted Date Diagnosed Date Resolved Date Postoperative abdominal pain 07/12/2020 10/13/2020 Mild protein-calorie malnutrition 06/28/2020 06/29/2020 Infected prosthetic mesh of abdominal wall 06/20/2020 06/30/2020 Obesity, Class II, BMI 35-39.9 06/13/2019 08/16/2020 SBO (small bowel obstruction) 06/07/2019 08/16/2020 Morbid obesity 03/10/2019 06/13/2019 Abnormal cardiovascular stress test 09/11/2017 10/15/2017 Primary osteoarthritis of right hip 11/27/2016 08/18/2020 Trochanteric bursitis of right hip 11/27/2016 08/18/2020 Dyspnea, unspecified 03/08/2016 020 Angiomyolipoma of right kidney 01/11/2016 06/15/2016 Essential hypertension with goal blood pressure less than 140/90 12/13/2015 04/12/2017 Obstructive sleep apnea syndrome 12/13/2015 04/12/2017 Superficial skin infection 08/31/2015 0 03/13/2016 CKD stage 3 due to type 2 diabetes mellitus 02/06/2015 11/16/2018 Overview: Dr. Lilian Vance, nephrology BMI 45.0-49.9, adult 02/06/2015 020 Venous insufficiency 02/06/2015 017 DM type 2 causing CKD stage 3 09/21/2014 03/05/2019 Overview: Dr Landen Best, endocrinology Degenerative arthritis of hip 07/01/2014 08/16/2020 BMI 45.0-49.9, adult 03/31/2014 015 Diabetes mellitus type II, uncontrolled 11/25/2013 02/06/2015 BMI 40.0-44.9, adult 10/14/2013 014 Chest pain 09/13/2012 03/13/2016 Overview: Substernal pressure lasting ~5hrs, partially relieved with SLN. Significant risk factors for CAD (HTN, HLD, DM). EKG does to show ST changes. Initial CE at [facility] are supposedly negative. Prior stress test in 2010 was normal. DM well controlled. Currently low likelihood for ACS. - EKG - trend Donald - stress test vs [facility] S/P total knee replacement using cement 07/02/2012 07/15/2018 Degenerative arthritis of right knee 06/10/2012 08/12/2014 Allergic contact dermatitis due to metals 05/21/2012 08/16/2020 Sensorineural hearing loss, bilateral 07/19/2011 08/16/2020 Diverticulosis 08/23/2010 03/13/2016 Thyroid CA 02/21/2010 08/12/2014 Overview: * Surgery (12/15/09): total thyroidectomy, Dr. Jamey Ibrahim, [facility] * Path (10/29/09): FNA Atypical cells present in a background of cyst contents, suspicious for papillary thyroid carcinoma (12/15/09): single well-circumscribed nodule in the right inferior lobe, which measured 3.5 cm in greatest dimension. The nodule was extensively hemorrhagic and cystic with a rim of viable material which ranges in appearance from papillary architecture to follicular structures. There is no evidence of a higher grade component. There is no definitive lymphovascular space invasion identified. In some areas, the tumor cells have oncocytic cytoplasm, however, the cells do not meet criteria for tall-cell variant of papillary thyroid carcinoma. * SIDDIQI (02/17/10): Rx 131-Iodine 102.4 mCi, Thyrogen-stim * Scan (02/24/10): post-treatment scan (Thyrogen-stim) shows uptake in left neck, also in liver area. SPECT images show one focus of uptake in lateral segment of the left lobe of the liver, one in the medial segment of the left lobe of liver, and one in the posterior segment of the right lobe of the liver. (05/03/11): Thyrogen stim 123-Iodine scan negative * Thyroglobulin Component Thyroglobulin TG Antibody Screen Stimulation Latest Ref Rng 0.8 - 49.0 ng/mL <14.4 IU/mL 11/05/2009 75.7 (H) 1.0 01/18/2010 <0.2 (L) 1.1 02/16/2010 0.3 (L) 1.0 Thyrogen 07/05/2010 <0.2 (L) 1.3 12/27/2010 <0.2 (L) 1.3 05/08/2011 <0.2 (L) 1.1 Thyrogen 07/24/2011 <0.2 (L) 1.5 01/23/2012 <0.2 (L) 1.0 07/27/2012 <0.2 (L) <1.0 02/18/2013 <0.2 (L) <1.0 08/12/2013 <0.2 (L) <1.0 * mRNA (11/03/09): TSH-R mRNA=1.7 ng/ug (11/30/09): TSH-R mRNA=1.8 ng/ug (01/18/10): no TSH-R mRNA assay postop (07/05/10): TSH-R mRNA <1.0 ng/ug (12/27/10): TSH-R mRNA <1.0 ng/ug * Ultrasound (01/18/10): no suspicious adenopathy along great vessels or in lateral neck on either side. No masses in thyroid bed. (12/27/10): no suspicious adenopathy along great vessels or in lateral neck on either side. No masses in thyroid bed. (01/24/12): no suspicious adenopathy along great vessels or in lateral neck on either side. No masses in thyroid bed. (08/11/13): no suspicious adenopathy along great vessels or in lateral neck on either side. No masses in thyroid bed. Thyroid nodule 10/20/2009 03/02/2010 Incisional hernia without me ntion of obstruction or gangrene 09/12/2005 08/12/2014 Symptomatic menopausal or fe male climacteric states 04/07/2003 10/15/2017 Diabetes mellitus type 2 03/02/200301/2014 Overview: *Type (): dx type 2 diabetes *Control hx Component Hemoglobin A1C Latest Ref Rng 4.0 - 6.0 % 01/17/2011 6.8 05/08/2011 7.2 07/24/2011 6.8 01/23/2012 6.7 07/27/2012 6.1 (H) 02/18/2013 6.4 (H) 08/08/2013 7.0 (H) 10/13/2013 7.1 (H) 02/17/14 7.3 * Eye hx (10/2008): no DM changes per Dr. Campoverde (07/2013): no DM changes per pt, exam Dr. Campoverde * Renal hx Component Albumin/Creat Ratio Latest Ref Rng 0 - 30 mg/g 04/03/2005 8 05/03/2006 8 03/26/2008 13 01/22/2009 18 02/16/2010 10 07/05/2010 9 05/08/2011 13 08/08/2013 9 * Vascular hx (11/12/13): no hx [place], stroke, Component Latest Ref Rng 02/18/2013 08/12/2013 10/13/2013 Triglyceride 30 - 149 mg/dL 114 123 126 Cholesterol 100 - 199 mg/dL 196 192 187 HDL Cholesterol >55 mg/dL 47 (L) 58 52 (L) VLDL Cholesterol 6 - 40 mg/dL 23 25 25 LDL Cholesterol 60 - 129 mg/dL 126 109 110 Fasting Time FASTING FASTING fasting TC:HDL Ratio 1.00 - 5.00 4.17 3.31 3.60 LDL:HDL Ratio 0.50 - 3.55 2.68 1.88 2.12 Non HDL Cholesterol 90 - 159 mg/dL 149 134 135 * Sleep (11/12/13): has obstructive sleep apnea, uses BiPAP since titration 04/07/13 * Exercise (11/12/13): not exercisnig * Medications (11/12/13): Victoza 1.8 mg daily, metformin 500 mg 2-1-1, * Physician (11/12/13): primary physician is Hayley Malone Morbid obesity 03/02/2003 07/15/2014 HYPERLIPIDEMIA NEC/NOS 06/10 documented as of this encounter (statuses as of 12/12/2023) [facility]11-02-2020 History of Past illness Narrative* Problem Noted Date Diagnosed Date Resolved Date Postoperative abdominal pain 07/12/2020 10/13/2020 Mild protein-calorie malnutrition 06/28/2020 06/29/2020 Infected prosthetic mesh of abdominal wall 06/20/2020 06/30/2020 Obesity, Class II, BMI 35-39.9 06/13/2019 08/16/2020 SBO (small bowel obstruction) 06/07/2019 08/16/2020 Morbid obesity 03/10/2019 06/13/2019 Abnormal cardiovascular stress test 09/11/2017 10/15/2017 Primary osteoarthritis of right hip 11/27/2016 08/18/2020 Trochanteric bursitis of right hip 11/27/2016 08/18/2020 Dyspnea, unspecified 03/08/2016 020 Angiomyolipoma of right kidney 01/11/2016 06/15/2016 Essential hypertension with goal blood pressure less than 140/90 12/13/2015 04/12/2017 Obstructive sleep apnea syndrome 12/13/2015 04/12/2017 Superficial skin infection 08/31/2015 0 03/13/2016 CKD stage 3 due to type 2 diabetes mellitus 02/06/2015 11/16/2018 Overview: Dr. Lilian Vance, nephrology BMI 45.0-49.9, adult 02/06/2015 020 Venous insufficiency 02/06/2015 017 DM type 2 causing CKD stage 3 09/21/2014 03/05/2019 Overview: Dr Landen Best, endocrinology Degenerative arthritis of hip 07/01/2014 08/16/2020 BMI 45.0-49.9, adult 03/31/2014 015 Diabetes mellitus type II, uncontrolled 11/25/2013 02/06/2015 BMI 40.0-44.9, adult 10/14/2013 014 Chest pain 09/13/2012 03/13/2016 Overview: Substernal pressure lasting ~5hrs, partially relieved with SLN. Significant risk factors for CAD (HTN, HLD, DM). EKG does to show ST changes. Initial CE at [facility] are supposedly negative. Prior stress test in 2010 was normal. DM well controlled. Currently low likelihood for ACS. - EKG - trend [facility] - stress test vs [facility] S/P total knee replacement using cement 07/02/2012 07/15/2018 Degenerative arthritis of right knee 06/10/2012 08/12/2014 Allergic contact dermatitis due to metals 05/21/2012 08/16/2020 Sensorineural hearing loss, bilateral 07/19/2011 08/16/2020 Diverticulosis 08/23/2010 03/13/2016 Thyroid CA 02/21/2010 08/12/2014 Overview: * Surgery (12/15/09): total thyroidectomy, Dr. Jamey Ibrahim, [facility] * Path (10/29/09): FNA Atypical cells present in a background of cyst contents, suspicious for papillary thyroid carcinoma (12/15/09): single well-circumscribed nodule in the right inferior lobe, which measured 3.5 cm in greatest dimension. The nodule was extensively hemorrhagic and cystic with a rim of viable material which ranges in appearance from papillary architecture to follicular structures. There is no evidence of a higher grade component. There is no definitive lymphovascular space invasion identified. In some areas, the tumor cells have oncocytic cytoplasm, however, the cells do not meet criteria for tall-cell variant of papillary thyroid carcinoma. * SIDDIQI (02/17/10): Rx 131-Iodine 102.4 mCi, Thyrogen-stim * Scan (02/24/10): post-treatment scan (Thyrogen-stim) shows uptake in left neck, also in liver area. SPECT images show one focus of uptake in lateral segment of the left lobe of the liver, one in the medial segment of the left lobe of liver, and one in the posterior segment of the right lobe of the liver. (05/03/11): Thyrogen stim 123-Iodine scan negative * Thyroglobulin Component Thyroglobulin TG Antibody Screen Stimulation Latest Ref Rng 0.8 - 49.0 ng/mL <14.4 IU/mL 11/05/2009 75.7 (H) 1.0 01/18/2010 <0.2 (L) 1.1 02/16/2010 0.3 (L) 1.0 Thyrogen 07/05/2010 <0.2 (L) 1.3 12/27/2010 <0.2 (L) 1.3 05/08/2011 <0.2 (L) 1.1 Thyrogen 07/24/2011 <0.2 (L) 1.5 01/23/2012 <0.2 (L) 1.0 07/27/2012 <0.2 (L) <1.0 02/18/2013 <0.2 (L) <1.0 08/12/2013 <0.2 (L) <1.0 * mRNA (11/03/09): TSH-R mRNA=1.7 ng/ug (11/30/09): TSH-R mRNA=1.8 ng/ug (01/18/10): no TSH-R mRNA assay postop (07/05/10): TSH-R mRNA <1.0 ng/ug (12/27/10): TSH-R mRNA <1.0 ng/ug * Ultrasound (01/18/10): no suspicious adenopathy along great vessels or in lateral neck on either side. No masses in thyroid bed. (12/27/10): no suspicious adenopathy along great vessels or in lateral neck on either side. No masses in thyroid bed. (01/24/12): no suspicious adenopathy along great vessels or in lateral neck on either side. No masses in thyroid bed. (08/11/13): no suspicious adenopathy along great vessels or in lateral neck on either side. No masses in thyroid bed. Thyroid nodule 10/20/2009 03/02/2010 Incisional hernia without me ntion of obstruction or gangrene 09/12/2005 08/12/2014 Symptomatic menopausal or fe male climacteric states 04/07/2003 10/15/2017 Diabetes mellitus type 2 03/02/200301/2014 Overview: *Type (): dx type 2 diabetes *Control hx Component Hemoglobin A1C Latest Ref Rng 4.0 - 6.0 % 01/17/2011 6.8 05/08/2011 7.2 07/24/2011 6.8 01/23/2012 6.7 07/27/2012 6.1 (H) 02/18/2013 6.4 (H) 08/08/2013 7.0 (H) 10/13/2013 7.1 (H) 02/17/14 7.3 * Eye hx (10/2008): no DM changes per Dr. Campoverde (07/2013): no DM changes per pt, exam Dr. Campoverde * Renal hx Component Albumin/Creat Ratio Latest Ref Rng 0 - 30 mg/g 04/03/2005 8 05/03/2006 8 03/26/2008 13 01/22/2009 18 02/16/2010 10 07/05/2010 9 05/08/2011 13 08/08/2013 9 * Vascular hx (11/12/13): no hx [place], stroke, Component Latest Ref Rng 02/18/2013 08/12/2013 10/13/2013 Triglyceride 30 - 149 mg/dL 114 123 126 Cholesterol 100 - 199 mg/dL 196 192 187 HDL Cholesterol >55 mg/dL 47 (L) 58 52 (L) VLDL Cholesterol 6 - 40 mg/dL 23 25 25 LDL Cholesterol 60 - 129 mg/dL 126 109 110 Fasting Time FASTING FASTING fasting TC:HDL Ratio 1.00 - 5.00 4.17 3.31 3.60 LDL:HDL Ratio 0.50 - 3.55 2.68 1.88 2.12 Non HDL Cholesterol 90 - 159 mg/dL 149 134 135 * Sleep (11/12/13): has obstructive sleep apnea, uses BiPAP since titration 04/07/13 * Exercise (11/12/13): not exercisnig * Medications (11/12/13): Victoza 1.8 mg daily, metformin 500 mg 2-1-1, * Physician (11/12/13): primary physician is Hayley Malone Morbid obesity 03/02/2003 07/15/2014 HYPERLIPIDEMIA NEC/NOS 06/10 documented as of this encounter (statuses as of 12/12/2023) [facility]11-02-2020 History of Past illness Narrative* Problem Noted Date Diagnosed Date Resolved Date Postoperative abdominal pain 07/12/2020 10/13/2020 Mild protein-calorie malnutrition 06/28/2020 06/29/2020 Infected prosthetic mesh of abdominal wall 06/20/2020 06/30/2020 Obesity, Class II, BMI 35-39.9 06/13/2019 08/16/2020 SBO (small bowel obstruction) 06/07/2019 08/16/2020 Morbid obesity 03/10/2019 06/13/2019 Abnormal cardiovascular stress test 09/11/2017 10/15/2017 Primary osteoarthritis of right hip 11/27/2016 08/18/2020 Trochanteric bursitis of right hip 11/27/2016 08/18/2020 Dyspnea, unspecified 03/08/2016 020 Angiomyolipoma of right kidney 01/11/2016 06/15/2016 Essential hypertension with goal blood pressure less than 140/90 12/13/2015 04/12/2017 Obstructive sleep apnea syndrome 12/13/2015 04/12/2017 Superficial skin infection 08/31/2015 0 03/13/2016 CKD stage 3 due to type 2 diabetes mellitus 02/06/2015 11/16/2018 Overview: Dr. Lilian Vance, nephrology BMI 45.0-49.9, adult 02/06/2015 020 Venous insufficiency 02/06/2015 017 DM type 2 causing CKD stage 3 09/21/2014 03/05/2019 Overview: Dr Landen Best, endocrinology Degenerative arthritis of hip 07/01/2014 08/16/2020 BMI 45.0-49.9, adult 03/31/2014 015 Diabetes mellitus type II, uncontrolled 11/25/2013 02/06/2015 BMI 40.0-44.9, adult 10/14/2013 014 Chest pain 09/13/2012 03/13/2016 Overview: Substernal pressure lasting ~5hrs, partially relieved with SLN. Significant risk factors for CAD (HTN, HLD, DM). EKG does to show ST changes. Initial CE at [facility] are supposedly negative. Prior stress test in 2010 was normal. DM well controlled. Currently low likelihood for ACS. - EKG - trend [facility] - stress test vs [facility] S/P total knee replacement using cement 07/02/2012 07/15/2018 Degenerative arthritis of right knee 06/10/2012 08/12/2014 Allergic contact dermatitis due to metals 05/21/2012 08/16/2020 Sensorineural hearing loss, bilateral 07/19/2011 08/16/2020 Diverticulosis 08/23/2010 03/13/2016 Thyroid CA 02/21/2010 08/12/2014 Overview: * Surgery (12/15/09): total thyroidectomy, Dr. Jamey Ibrahim, [facility] * Path (10/29/09): FNA Atypical cells present in a background of cyst contents, suspicious for papillary thyroid carcinoma (12/15/09): single well-circumscribed nodule in the right inferior lobe, which measured 3.5 cm in greatest dimension. The nodule was extensively hemorrhagic and cystic with a rim of viable material which ranges in appearance from papillary architecture to follicular structures. There is no evidence of a higher grade component. There is no definitive lymphovascular space invasion identified. In some areas, the tumor cells have oncocytic cytoplasm, however, the cells do not meet criteria for tall-cell variant of papillary thyroid carcinoma. * SIDDIQI (02/17/10): Rx 131-Iodine 102.4 mCi, Thyrogen-stim * Scan (02/24/10): post-treatment scan (Thyrogen-stim) shows uptake in left neck, also in liver area. SPECT images show one focus of uptake in lateral segment of the left lobe of the liver, one in the medial segment of the left lobe of liver, and one in the posterior segment of the right lobe of the liver. (05/03/11): Thyrogen stim 123-Iodine scan negative * Thyroglobulin Component Thyroglobulin TG Antibody Screen Stimulation Latest Ref Rng 0.8 - 49.0 ng/mL <14.4 IU/mL 11/05/2009 75.7 (H) 1.0 01/18/2010 <0.2 (L) 1.1 02/16/2010 0.3 (L) 1.0 Thyrogen 07/05/2010 <0.2 (L) 1.3 12/27/2010 <0.2 (L) 1.3 05/08/2011 <0.2 (L) 1.1 Thyrogen 07/24/2011 <0.2 (L) 1.5 01/23/2012 <0.2 (L) 1.0 07/27/2012 <0.2 (L) <1.0 02/18/2013 <0.2 (L) <1.0 08/12/2013 <0.2 (L) <1.0 * mRNA (11/03/09): TSH-R mRNA=1.7 ng/ug (11/30/09): TSH-R mRNA=1.8 ng/ug (01/18/10): no TSH-R mRNA assay postop (07/05/10): TSH-R mRNA <1.0 ng/ug (12/27/10): TSH-R mRNA <1.0 ng/ug * Ultrasound (01/18/10): no suspicious adenopathy along great vessels or in lateral neck on either side. No masses in thyroid bed. (12/27/10): no suspicious adenopathy along great vessels or in lateral neck on either side. No masses in thyroid bed. (01/24/12): no suspicious adenopathy along great vessels or in lateral neck on either side. No masses in thyroid bed. (08/11/13): no suspicious adenopathy along great vessels or in lateral neck on either side. No masses in thyroid bed. Thyroid nodule 10/20/2009 03/02/2010 Incisional hernia without me ntion of obstruction or gangrene 09/12/2005 08/12/2014 Symptomatic menopausal or fe male climacteric states 04/07/2003 10/15/2017 Diabetes mellitus type 2 03/02/200301/2014 Overview: *Type (): dx type 2 diabetes *Control hx Component Hemoglobin A1C Latest Ref Rng 4.0 - 6.0 % 01/17/2011 6.8 05/08/2011 7.2 07/24/2011 6.8 01/23/2012 6.7 07/27/2012 6.1 (H) 02/18/2013 6.4 (H) 08/08/2013 7.0 (H) 10/13/2013 7.1 (H) 02/17/14 7.3 * Eye hx (10/2008): no DM changes per Dr. Campoverde (07/2013): no DM changes per pt, exam Dr. Campoverde * Renal hx Component Albumin/Creat Ratio Latest Ref Rng 0 - 30 mg/g 04/03/2005 8 05/03/2006 8 03/26/2008 13 01/22/2009 18 02/16/2010 10 07/05/2010 9 05/08/2011 13 08/08/2013 9 * Vascular hx (11/12/13): no hx [place], stroke, Component Latest Ref Rng 02/18/2013 08/12/2013 10/13/2013 Triglyceride 30 - 149 mg/dL 114 123 126 Cholesterol 100 - 199 mg/dL 196 192 187 HDL Cholesterol >55 mg/dL 47 (L) 58 52 (L) VLDL Cholesterol 6 - 40 mg/dL 23 25 25 LDL Cholesterol 60 - 129 mg/dL 126 109 110 Fasting Time FASTING FASTING fasting TC:HDL Ratio 1.00 - 5.00 4.17 3.31 3.60 LDL:HDL Ratio 0.50 - 3.55 2.68 1.88 2.12 Non HDL Cholesterol 90 - 159 mg/dL 149 134 135 * Sleep (11/12/13): has obstructive sleep apnea, uses BiPAP since titration 04/07/13 * Exercise (11/12/13): not exercisnig * Medications (11/12/13): Victoza 1.8 mg daily, metformin 500 mg 2-1-1, * Physician (11/12/13): primary physician is Hayley Malone Morbid obesity 03/02/2003 07/15/2014 HYPERLIPIDEMIA NEC/NOS 06/10 documented as of this encounter (statuses as of 12/13/2023) [facility]2020 History of Past illness Narrative* Problem Noted Date Diagnosed Date Resolved Date Postoperative abdominal pain 07/12/2020 10/13/2020 Mild protein-calorie malnutrition 06/28/2020 06/29/2020 Infected prosthetic mesh of abdominal wall 06/20/2020 06/30/2020 Obesity, Class II, BMI 35-39.9 06/13/2019 08/16/2020 SBO (small bowel obstruction) 06/07/2019 08/16/2020 Morbid obesity 03/10/2019 06/13/2019 Abnormal cardiovascular stress test 09/11/2017 10/15/2017 Primary osteoarthritis of right hip 11/27/2016 08/18/2020 Trochanteric bursitis of right hip 11/27/2016 08/18/2020 Dyspnea, unspecified 03/08/2016 020 Angiomyolipoma of right kidney 01/11/2016 06/15/2016 Essential hypertension with goal blood pressure less than 140/90 12/13/2015 04/12/2017 Obstructive sleep apnea syndrome 12/13/2015 04/12/2017 Superficial skin infection 08/31/2015 0 03/13/2016 CKD stage 3 due to type 2 diabetes mellitus 02/06/2015 11/16/2018 Overview: Dr. Lilian Vance, nephrology BMI 45.0-49.9, adult 02/06/2015 020 Venous insufficiency 02/06/2015 017 DM type 2 causing CKD stage 3 09/21/2014 03/05/2019 Overview: Dr Landen Best, endocrinology Degenerative arthritis of hip 07/01/2014 08/16/2020 BMI 45.0-49.9, adult 03/31/2014 015 Diabetes mellitus type II, uncontrolled 11/25/2013 02/06/2015 BMI 40.0-44.9, adult 10/14/2013 014 Chest pain 09/13/2012 03/13/2016 Overview: Substernal pressure lasting ~5hrs, partially relieved with SLN. Significant risk factors for CAD (HTN, HLD, DM). EKG does to show ST changes. Initial CE at [facility] are supposedly negative. Prior stress test in 2010 was normal. DM well controlled. Currently low likelihood for ACS. - EKG - trend Donald - stress test vs [facility] S/P total knee replacement using cement 07/02/2012 07/15/2018 Degenerative arthritis of right knee 06/10/2012 08/12/2014 Allergic contact dermatitis due to metals 05/21/2012 08/16/2020 Sensorineural hearing loss, bilateral 07/19/2011 08/16/2020 Diverticulosis 08/23/2010 03/13/2016 Thyroid CA 02/21/2010 08/12/2014 Overview: * Surgery (12/15/09): total thyroidectomy, Dr. Jamey Ibrahim, [facility] * Path (10/29/09): FNA Atypical cells present in a background of cyst contents, suspicious for papillary thyroid carcinoma (12/15/09): single well-circumscribed nodule in the right inferior lobe, which measured 3.5 cm in greatest dimension. The nodule was extensively hemorrhagic and cystic with a rim of viable material which ranges in appearance from papillary architecture to follicular structures. There is no evidence of a higher grade component. There is no definitive lymphovascular space invasion identified. In some areas, the tumor cells have oncocytic cytoplasm, however, the cells do not meet criteria for tall-cell variant of papillary thyroid carcinoma. * SIDDIQI (02/17/10): Rx 131-Iodine 102.4 mCi, Thyrogen-stim * Scan (02/24/10): post-treatment scan (Thyrogen-stim) shows uptake in left neck, also in liver area. SPECT images show one focus of uptake in lateral segment of the left lobe of the liver, one in the medial segment of the left lobe of liver, and one in the posterior segment of the right lobe of the liver. (05/03/11): Thyrogen stim 123-Iodine scan negative * Thyroglobulin Component Thyroglobulin TG Antibody Screen Stimulation Latest Ref Rng 0.8 - 49.0 ng/mL <14.4 IU/mL 11/05/2009 75.7 (H) 1.0 01/18/2010 <0.2 (L) 1.1 02/16/2010 0.3 (L) 1.0 Thyrogen 07/05/2010 <0.2 (L) 1.3 12/27/2010 <0.2 (L) 1.3 05/08/2011 <0.2 (L) 1.1 Thyrogen 07/24/2011 <0.2 (L) 1.5 01/23/2012 <0.2 (L) 1.0 07/27/2012 <0.2 (L) <1.0 02/18/2013 <0.2 (L) <1.0 08/12/2013 <0.2 (L) <1.0 * mRNA (11/03/09): TSH-R mRNA=1.7 ng/ug (11/30/09): TSH-R mRNA=1.8 ng/ug (01/18/10): no TSH-R mRNA assay postop (07/05/10): TSH-R mRNA <1.0 ng/ug (12/27/10): TSH-R mRNA <1.0 ng/ug * Ultrasound (01/18/10): no suspicious adenopathy along great vessels or in lateral neck on either side. No masses in thyroid bed. (12/27/10): no suspicious adenopathy along great vessels or in lateral neck on either side. No masses in thyroid bed. (01/24/12): no suspicious adenopathy along great vessels or in lateral neck on either side. No masses in thyroid bed. (08/11/13): no suspicious adenopathy along great vessels or in lateral neck on either side. No masses in thyroid bed. Thyroid nodule 10/20/2009 03/02/2010 Incisional hernia without me ntion of obstruction or gangrene 09/12/2005 08/12/2014 Symptomatic menopausal or fe male climacteric states 04/07/2003 10/15/2017 Diabetes mellitus type 2 03/02/200301/2014 Overview: *Type (): dx type 2 diabetes *Control hx Component Hemoglobin A1C Latest Ref Rng 4.0 - 6.0 % 01/17/2011 6.8 05/08/2011 7.2 07/24/2011 6.8 01/23/2012 6.7 07/27/2012 6.1 (H) 02/18/2013 6.4 (H) 08/08/2013 7.0 (H) 10/13/2013 7.1 (H) 02/17/14 7.3 * Eye hx (10/2008): no DM changes per Dr. Campoverde (07/2013): no DM changes per pt, exam Dr. Campoverde * Renal hx Component Albumin/Creat Ratio Latest Ref Rng 0 - 30 mg/g 04/03/2005 8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 diabetes mellitus with stage 3a chronic kidney disease, with long-term current use of insulin ([facility]) [facility]* Diagnosis Depressive disorder Depressive disorder, not elsewhere classified Myalgia Mylagia and myositis, unspecified Primary osteoarthritis of left hip Primary localized osteoarthrosis, pelvic region and thigh [facility]* Diagnosis Onset Date Resolution Status Urine frequency acute 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 Chronic diastolic (congestive) heart failure chronic Essential (primary) hypertension chronic ABDI (obstructive sleep apnea) chronic Pulmonary hypertension [facility] Work Phone: Evaluation note* Diagnosis Primary osteoarthritis of both hips Primary localized osteoarthrosis, pelvic region and thigh [facility]* Diagnosis Type 2 diabetes mellitus with diabetic neuropathy, with long-term current use of insulin (HCC)- Primary Thyroid cancer (HCC) Malignant neoplasm of thyroid gland [facility] Diagnosis Acute gout involving toe of right foot, unspecified cause [facility] Diagnosis Acute gout involving toe of right foot, unspecified cause [facility] Diagnosis Acute gout, unspecified cause, unspecified site- Primary Type 2 diabetes mellitus with diabetic neuropathy, with long-term current use of insulin ([facility]) Anemia, unspecified type Edema, unspecified type [facility]* Diagnosis Type 2 diabetes mellitus with diabetic neuropathy, with long-term current use of insulin (HCC) [facility]* Diagnosis Depressive disorder Depressive disorder, not elsewhere classified Myalgia Mylagia and myositis, unspecified documented in this encounter [facility] note* Diagnosis Primary osteoarthritis of left hip- Primary Primary localized osteoarthrosis, pelvic region and thigh [facility]* Diagnosis Primary osteoarthritis of left hip- Primary Primary localized osteoarthrosis, pelvic region and thigh Anemia, unspecified type [facility]* Diagnosis Primary osteoarthritis of left hip Primary localized osteoarthrosis, pelvic region and thigh [facility]* Diagnosis Dyspnea on exertion- Primary Other dyspnea and respiratory abnormality Bilateral lower extremity edema Edema Diabetic polyneuropathy associated with type 2 diabetes mellitus (HCC) Dementia without behavioral disturbance, psychotic disturbance, mood disturbance, or anxiety, unspecified dementia severity, unspecified dementia type ([facility]) ABDI (obstructive sleep apnea) Obstructive sleep apnea (adult) (pediatric) Primary osteoarthritis of left hip Primary localized osteoarthrosis, pelvic region and thigh [facility]* Diagnosis Screening mammogram for breast cancer Primary osteoarthritis of left hip Primary localized osteoarthrosis, pelvic region and thigh documented in this encounter [facility] note* Diagnosis Type 2 diabetes mellitus with stage 3b chronic kidney disease, with long-term current use of insulin (HCC) Primary osteoarthritis of left hip Primary localized osteoarthrosis, pelvic region and thigh [facility]* Diagnosis Pre-op evaluation- Primary Preoperative examination, unspecified Type 2 diabetes mellitus with diabetic neuropathy, with long-term current use of insulin ([facility]) Arteriosclerotic heart disease (ASHD) Coronary atherosclerosis of unspecified type of vessel, lime or graft Heart failure with preserved ejection fraction, unspecified HF chronicity ([facility]) ABDI treated with BiPAP GERD without esophagitis Esophageal reflux S/P laparoscopic sleeve gastrectomy Bariatric surgery status Fatty liver Other chronic nonalcoholic liver disease Chronic kidney disease, stage IV (severe) (HCC) Chronic kidney disease, Stage IV (severe) History of thyroid cancer Personal history of malignant neoplasm of thyroid Anemia, unspecified type Cognitive impairment Unspecified persistent mental disorders due to conditions classified elsewhere Hyperlipidemia, unspecified hyperlipidemia type Edema, unspecified type Primary osteoarthritis of left hip Primary localized osteoarthrosis, pelvic region and thigh * Assessment & Plan Note - Mitra Landin APRN.CNP - 01/09/2024 11:59 AM EDT Associated Problem(s): Edema Assessment: b/l LE chronic, intermittent. PRN lasix. * Assessment & Plan Note - Mitra Landin APRN.CNP - 01/09/2024 11:34 AM EDT Associated Problem(s): Hyperlipidemia Assessment: Complaint on statin therapy. Encouraged lifestyle modifications. * Assessment & Plan Note - Mitra Landin APRN.CNP - 01/09/2024 11:33 AM EDT Associated Problem(s): Cognitive impairment Assessment: +dementia, here with . On rx at this time, follows neurology. * Assessment & Plan Note - Mitra Landin APRN.CNP - 01/09/2024 11:33 AM EDT Associated Problem(s): Anemia Assessment: Follows with PCP, pending labs repeated. Hemoglobin (g/dL) Date Value 08/23/2023 12.7 05/31/2021 10.9 Hematocrit (%) Date Value 08/23/2023 38.2 05/31/2021 33.1 WBC (k/uL) Date Value 08/23/2023 9.79 05/31/2021 6.24 Platelet Count (k/uL) Date Value 08/23/2023 203 05/31/2021 184 * Assessment & Plan Note - Mitra Landin APRN.CNP - 01/09/2024 11:33 AM EDT Associated Problem(s): History of thyroid cancer Assessment: s/p thyroidectomy. Compliant on levothyroxine. Denies recent dose adjustments. Following with PCP. TSH Date Value 10/19/2023 0.206 mIU/L 01/05/2023 0.976 mIU/L 04/19/2021 4.560 uU/mL 03/01/2021 6.940 uU/mL * Assessment & Plan Note - Mitra Landin APRN.CNP - 01/09/2024 11:32 AM EDT Associated Problem(s): Chronic kidney disease, stage IV (severe) (HCC) Images from the original note were not included. Assessment: Follows nephrology, Dr. Vance. Latest Ref Rng & Units 08/23/2023 02/21/2023 08/29/2022 BMP Glucose 74 - 99 mg/dL 112 208 244 BUN 7 - 21 mg/dL 15 21 28 Creatinine 0.58 - 0.96 mg/dL 1.04 1.10 1.14 Sodium 136 - 144 mmol/L 141 140 140 Potassium 3.7 - 5.1 mmol/L 4.2 3.9 4.2 Chloride 97 - 105 mmol/L 102 99 100 CO2 22 - 30 mmol/L 27 30 28 Anion Gap 9 - 18 mmol/L 12 11 12 Calcium 8.5 - 10.2 mg/dL 9.7 9.8 9.8 EGFR >=60 mL/min/1.73m 56 53 50 * Assessment & Plan Note - Mitra Landin APRN.CNP - 01/09/2024 11:32 AM EDT Associated Problem(s): Fatty liver Assessment: Follows GI, PCP CMP: Glucose 112 08/23/2023 BUN 15 08/23/2023 Creatinine 1.04 08/23/2023 Sodium 141 08/23/2023 Potassium 4.2 08/23/2023 Chloride 102 08/23/2023 CO2 27 08/23/2023 Protein, Total 6.8 08/29/2022 Albumin 4.2 08/29/2022 Calcium 9.7 08/23/2023 Alkaline Phosphatase 94 08/29/2022 Bilirubin, Total 0.4 08/29/2022 AST 19 08/29/2022 ALT 16 08/29/2022 * Assessment & Plan Note - Mitra Landin APRN.CNP - 01/09/2024 11:32 AM EDT Associated Problem(s): S/P laparoscopic sleeve gastrectomy Assessment: There is no height or weight on file to calculate BMI. * Assessment & Plan Note - Mitra Landin APRN.CNP - 01/09/2024 11:32 AM EDT Associated Problem(s): GERD without esophagitis Assessment: Controlled. Advised avoidance of triggers. Following with PCP. * Assessment & Plan Note - Mitra Landin APRN.CNP - 01/09/2024 11:31 AM EDT Associated Problem(s): ABDI treated with BiPAP Assessment: Non Compliant on device. * Assessment & Plan Note - Mitra Landin APRN.CNP - 01/09/2024 11:31 AM EDT Associated Problem(s): (HFpEF) heart failure with preserved ejection fraction (HCC) Assessment: Follows cardiology, , last OV. Compliant on medications. Appears euvolemic, denies new or worsening cardiac symptoms. Noted to have edema b/l LE, ROMINA lasix. Reports at baseline per . Ejection Fraction - Result: 69 % Date: 03/09/2016 Time: 11:13:38 * Assessment & Plan Note - Mitra Landin APRN.CNP - 01/09/2024 11:31 AM EDT Associated Problem(s): Arteriosclerotic heart disease (ASHD) Assessment: Denies any new or worsening cardiac symptoms. Follows electric wirer, Dr. Dickerson at [facility], last OV in October. Reports compliance to medication. Pending echo. Ejection Fraction - Result: 69 % Date: 03/09/2016 Time: 11:13:38 * Assessment & Plan Note - Mitra Landin APRN.CNP - 01/09/2024 11:30 AM EDT Associated Problem(s): Type 2 diabetes mellitus with diabetic neuropathy, with long-term current use of insulin (HCC) Assessment: Reports compliance to medication. Reports BS checks 131. Following with endocrine. Encouraged lifestyle modifications. 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 Chronic diastolic (congestive) heart failure chronic Essential (primary) hypertension chronic ABDI (obstructive sleep apnea) chronic [facility] Work Phone: Evaluation note* Diagnosis Acute gout involving toe of right foot, unspecified cause [facility]* Diagnosis Type 2 diabetes mellitus with stage 3b chronic kidney disease, with long-term current use of insulin (HCC)- Primary Thyroid cancer (HCC) Malignant neoplasm of thyroid gland [facility]* Diagnosis Status post hip replacement, left- Primary documented [facility]* Diagnosis Type 2 diabetes mellitus with stage 3b chronic kidney disease, with long-term current use of insulin (HCC) documented [facility]* Diagnosis Dyspnea on exertion- Primary Other dyspnea and respiratory abnormality Bilateral lower extremity edema Edema ABDI on CPAP Obstructive sleep apnea (adult) (pediatric) Dementia without behavioral disturbance, psychotic disturbance, mood disturbance, or anxiety, unspecified dementia severity, unspecified dementia type ([facility]) documented in this encounter [facility] note* Diagnosis Acute cough- Primary Rhinosinusitis Unspecified sinusitis (chronic) Acute cough [facility]* Diagnosis Status post left hip replacement Hip joint replacement by other means [facility]* Diagnosis Pre-op evaluation- Primary Preoperative examination, unspecified Type 2 diabetes mellitus with diabetic neuropathy, with long-term current use of insulin (HCC) Arteriosclerotic heart disease (ASHD) Coronary atherosclerosis of unspecified type of vessel, lime or graft Heart failure with preserved ejection fraction, unspecified HF chronicity (HCC) ABDI treated with BiPAP GERD without esophagitis Esophageal reflux S/P laparoscopic sleeve gastrectomy Bariatric surgery status Fatty liver Other chronic nonalcoholic liver disease Chronic kidney disease, stage IV (severe) (HCC) Chronic kidney disease, Stage IV (severe) History of thyroid cancer Personal history of malignant neoplasm of thyroid Anemia, unspecified type Cognitive impairment Unspecified persistent mental disorders due to conditions classified elsewhere Hyperlipidemia, unspecified hyperlipidemia type Edema, unspecified type Primary osteoarthritis of left hip- Primary Primary localized osteoarthrosis, pelvic region and thigh [facility]* Diagnosis Pre-op evaluation- Primary Preoperative examination, unspecified Type 2 diabetes mellitus with diabetic neuropathy, with long-term current use of insulin (HCC) Arteriosclerotic heart disease (ASHD) Coronary atherosclerosis of unspecified type of vessel, lime or graft Heart failure with preserved ejection fraction, unspecified HF chronicity (HCC) ABDI treated with BiPAP GERD without esophagitis Esophageal reflux S/P laparoscopic sleeve gastrectomy Bariatric surgery status Fatty liver Other chronic nonalcoholic liver disease Chronic kidney disease, stage IV (severe) (HCC) Chronic kidney disease, Stage IV (severe) History of thyroid cancer Personal history of malignant neoplasm of thyroid Anemia, unspecified type Cognitive impairment Unspecified persistent mental disorders due to conditions classified elsewhere Hyperlipidemia, unspecified hyperlipidemia type Edema, unspecified type Type 2 diabetes mellitus with stage 3b chronic kidney disease, with long-term current use of insulin (HCC)- Primary [facility]* Diagnosis Pre-op evaluation- Primary Preoperative examination, unspecified Type 2 diabetes mellitus with diabetic neuropathy, with long-term current use of insulin (HCC) Arteriosclerotic heart disease (ASHD) Coronary atherosclerosis of unspecified type of vessel, lime or graft Heart failure with preserved ejection fraction, unspecified HF chronicity (HCC) ABDI treated with BiPAP GERD without esophagitis Esophageal reflux S/P laparoscopic sleeve gastrectomy Bariatric surgery status Fatty liver Other chronic nonalcoholic liver disease Chronic kidney disease, stage IV (severe) (HCC) Chronic kidney disease, Stage IV (severe) History of thyroid cancer Personal history of malignant neoplasm of thyroid Anemia, unspecified type Cognitive impairment Unspecified persistent mental disorders due to conditions classified elsewhere Hyperlipidemia, unspecified hyperlipidemia type Edema, unspecified type Acute cough documented in this encounter [facility] note* Diagnosis Pre-op evaluation- Primary Preoperative examination, unspecified Type 2 diabetes mellitus with diabetic neuropathy, with long-term current use of insulin (HCC) Arteriosclerotic heart disease (ASHD) Coronary atherosclerosis of unspecified type of vessel, lime or graft Heart failure with preserved ejection fraction, unspecified HF chronicity (HCC) ABDI treated with BiPAP GERD without esophagitis Esophageal reflux S/P laparoscopic sleeve gastrectomy Bariatric surgery status Fatty liver Other chronic nonalcoholic liver disease Chronic kidney disease, stage IV (severe) (HCC) Chronic kidney disease, Stage IV (severe) History of thyroid cancer Personal history of malignant neoplasm of thyroid Anemia, unspecified type Cognitive impairment Unspecified persistent mental disorders due to conditions classified elsewhere Hyperlipidemia, unspecified hyperlipidemia type Edema, unspecified type Primary osteoarthritis of left hip Primary localized osteoarthrosis, pelvic region and thigh [facility]* Diagnosis Rib pain on left side Chest pain, unspecified Pre-op evaluation- Primary Preoperative examination, unspecified Type 2 diabetes mellitus with diabetic neuropathy, with long-term current use of insulin (HCC) Arteriosclerotic heart disease (ASHD) Coronary atherosclerosis of unspecified type of vessel, lime or graft Heart failure with preserved ejection fraction, unspecified HF chronicity (HCC) ABDI treated with BiPAP GERD without esophagitis Esophageal reflux S/P laparoscopic sleeve gastrectomy Bariatric surgery status Fatty liver Other chronic nonalcoholic liver disease Chronic kidney disease, stage IV (severe) (HCC) Chronic kidney disease, Stage IV (severe) History of thyroid cancer Personal history of malignant neoplasm of thyroid Anemia, unspecified type Cognitive impairment Unspecified persistent mental disorders due to conditions classified elsewhere Hyperlipidemia, unspecified hyperlipidemia type Edema, unspecified type documented in this encounter [facility] note* Diagnosis GERD without esophagitis Esophageal reflux Dysphagia, unspecified type Pre-op evaluation- Primary Preoperative examination, unspecified Type 2 diabetes mellitus with diabetic neuropathy, with long-term current use of insulin (HCC) Arteriosclerotic heart disease (ASHD) Coronary atherosclerosis of unspecified type of vessel, lime or graft Heart failure with preserved ejection fraction, unspecified HF chronicity (HCC) ABDI treated with BiPAP GERD without esophagitis Esophageal reflux S/P laparoscopic sleeve gastrectomy Bariatric surgery status Fatty liver Other chronic nonalcoholic liver disease Chronic kidney disease, stage IV (severe) (HCC) Chronic kidney disease, Stage IV (severe) History of thyroid cancer Personal history of malignant neoplasm of thyroid Anemia, unspecified type Cognitive impairment Unspecified persistent mental disorders due to conditions classified elsewhere Hyperlipidemia, unspecified hyperlipidemia type Edema, unspecified type documented in this encounter [facility] note* Diagnosis Chronic right shoulder pain Pain in joint, shoulder region Pre-op evaluation- Primary Preoperative examination, unspecified Type 2 diabetes mellitus with diabetic neuropathy, with long-term current use of insulin (HCC) Arteriosclerotic heart disease (ASHD) Coronary atherosclerosis of unspecified type of vessel, lime or graft Heart failure with preserved ejection fraction, unspecified HF chronicity (HCC) ABDI treated with BiPAP GERD without esophagitis Esophageal reflux S/P laparoscopic sleeve gastrectomy Bariatric surgery status Fatty liver Other chronic nonalcoholic liver disease Chronic kidney disease, stage IV (severe) (HCC) Chronic kidney disease, Stage IV (severe) History of thyroid cancer Personal history of malignant neoplasm of thyroid Anemia, unspecified type Cognitive impairment Unspecified persistent mental disorders due to conditions classified elsewhere Hyperlipidemia, unspecified hyperlipidemia type Edema, unspecified type [facility]* Diagnosis Pre-op evaluation- Primary Preoperative examination, unspecified Type 2 diabetes mellitus with diabetic neuropathy, with long-term current use of insulin (HCC) Arteriosclerotic heart disease (ASHD) Coronary atherosclerosis of unspecified type of vessel, lime or graft Heart failure with preserved ejection fraction, unspecified HF chronicity (HCC) ABDI treated with BiPAP GERD without esophagitis Esophageal reflux S/P laparoscopic sleeve gastrectomy Bariatric surgery status Fatty liver Other chronic nonalcoholic liver disease Chronic kidney disease, stage IV (severe) (HCC) Chronic kidney disease, Stage IV (severe) History of thyroid cancer Personal history of malignant neoplasm of thyroid Anemia, unspecified type Cognitive impairment Unspecified persistent mental disorders due to conditions classified elsewhere Hyperlipidemia, unspecified hyperlipidemia type Edema, unspecified type Acute gout involving toe of right foot, unspecified cause Depressive disorder Depressive disorder, not elsewhere classified Myalgia Mylagia and myositis, unspecified [facility]* Diagnosis Pre-op evaluation- Primary Preoperative examination, unspecified Type 2 diabetes mellitus with diabetic neuropathy, with long-term current use of insulin (HCC) Arteriosclerotic heart disease (ASHD) Coronary atherosclerosis of unspecified type of vessel, lime or graft Heart failure with preserved ejection fraction, unspecified HF chronicity (HCC) ABDI treated with BiPAP GERD without esophagitis Esophageal reflux S/P laparoscopic sleeve gastrectomy Bariatric surgery status Fatty liver Other chronic nonalcoholic liver disease Chronic kidney disease, stage IV (severe) (HCC) Chronic kidney disease, Stage IV (severe) History of thyroid cancer Personal history of malignant neoplasm of thyroid Anemia, unspecified type Cognitive impairment Unspecified persistent mental disorders due to conditions classified elsewhere Hyperlipidemia, unspecified hyperlipidemia type Edema, unspecified type Type 2 diabetes mellitus with stage 3b chronic kidney disease, with long-term current use of insulin (HCC)- Primary documented in this encounter [facility] note* Diagnosis Pre-op evaluation- Primary Preoperative examination, unspecified Type 2 diabetes mellitus with diabetic neuropathy, with long-term current use of insulin (HCC) Arteriosclerotic heart disease (ASHD) Coronary atherosclerosis of unspecified type of vessel, lime or graft Heart failure with preserved ejection fraction, unspecified HF chronicity (HCC) ABDI treated with BiPAP GERD without esophagitis Esophageal reflux S/P laparoscopic sleeve gastrectomy Bariatric surgery status Fatty liver Other chronic nonalcoholic liver disease Chronic kidney disease, stage IV (severe) (HCC) Chronic kidney disease, Stage IV (severe) History of thyroid cancer Personal history of malignant neoplasm of thyroid Anemia, unspecified type Cognitive impairment Unspecified persistent mental disorders due to conditions classified elsewhere Hyperlipidemia, unspecified hyperlipidemia type Edema, unspecified type Dementia without behavioral disturbance, psychotic disturbance, mood disturbance, or anxiety, unspecified dementia severity, unspecified dementia type (HCC)- Primary ABDI on CPAP Obstructive sleep apnea (adult) (pediatric) documented in this [facility]* Diagnosis Pre-op evaluation- Primary Preoperative examination, unspecified Type 2 diabetes mellitus with diabetic neuropathy, with long-term current use of insulin (HCC) Arteriosclerotic heart disease (ASHD) Coronary atherosclerosis of unspecified type of vessel, lime or graft Heart failure with preserved ejection fraction, unspecified HF chronicity (HCC) ABDI treated with BiPAP GERD without esophagitis Esophageal reflux S/P laparoscopic sleeve gastrectomy Bariatric surgery status Fatty liver Other chronic nonalcoholic liver disease Chronic kidney disease, stage IV (severe) (HCC) Chronic kidney disease, Stage IV (severe) History of thyroid cancer Personal history of malignant neoplasm of thyroid Anemia, unspecified type Cognitive impairment Unspecified persistent mental disorders due to conditions classified elsewhere Hyperlipidemia, unspecified hyperlipidemia type Edema, unspecified type Acute gout involving toe of right foot, unspecified cause documented in this encounter [facility] note* Diagnosis Pre-op evaluation- Primary Preoperative examination, unspecified Type 2 diabetes mellitus with diabetic neuropathy, with long-term current use of insulin (HCC) Arteriosclerotic heart disease (ASHD) Coronary atherosclerosis of unspecified type of vessel, lime or graft Heart failure with preserved ejection fraction, unspecified HF chronicity (HCC) ABDI treated with BiPAP GERD without esophagitis Esophageal reflux S/P laparoscopic sleeve gastrectomy Bariatric surgery status Fatty liver Other chronic nonalcoholic liver disease Chronic kidney disease, stage IV (severe) (HCC) Chronic kidney disease, Stage IV (severe) History of thyroid cancer Personal history of malignant neoplasm of thyroid Anemia, unspecified type Cognitive impairment Unspecified persistent mental disorders due to conditions classified elsewhere Hyperlipidemia, unspecified hyperlipidemia type Edema, unspecified type Type 2 diabetes mellitus with diabetic neuropathy, with long-term current use of insulin (HCC)- Primary documented in this encounter [facility] note* Diagnosis Pre-op evaluation- Primary Preoperative examination, unspecified Type 2 diabetes mellitus with diabetic neuropathy, with long-term current use of insulin (HCC) Arteriosclerotic heart disease (ASHD) Coronary atherosclerosis of unspecified type of vessel, lime or graft Heart failure with preserved ejection fraction, unspecified HF chronicity (HCC) ABDI treated with BiPAP GERD without esophagitis Esophageal reflux S/P laparoscopic sleeve gastrectomy Bariatric surgery status Fatty liver Other chronic nonalcoholic liver disease Chronic kidney disease, stage IV (severe) (HCC) Chronic kidney disease, Stage IV (severe) History of thyroid cancer Personal history of malignant neoplasm of thyroid Anemia, unspecified type Cognitive impairment Unspecified persistent mental disorders due to conditions classified elsewhere Hyperlipidemia, unspecified hyperlipidemia type Edema, unspecified type Type 2 diabetes mellitus with stage 3b chronic kidney disease, with long-term current use of insulin (HCC)- Primary documented in this encounter [facility] note* Diagnosis Pre-op evaluation- Primary Preoperative examination, unspecified Type 2 diabetes mellitus with diabetic neuropathy, with long-term current use of insulin (HCC) Arteriosclerotic heart disease (ASHD) Coronary atherosclerosis of unspecified type of vessel, lime or graft Heart failure with preserved ejection fraction, unspecified HF chronicity (HCC) ABDI treated with BiPAP GERD without esophagitis Esophageal reflux S/P laparoscopic sleeve gastrectomy Bariatric surgery status Fatty liver Other chronic nonalcoholic liver disease Chronic kidney disease, stage IV (severe) (HCC) Chronic kidney disease, Stage IV (severe) History of thyroid cancer Personal history of malignant neoplasm of thyroid Anemia, unspecified type Cognitive impairment Unspecified persistent mental disorders due to conditions classified elsewhere Hyperlipidemia, unspecified hyperlipidemia type Edema, unspecified type Type 2 diabetes mellitus with stage 3a chronic kidney disease, with long-term current use of insulin (HCC)- Primary Anemia, unspecified type Fatty liver Other chronic nonalcoholic liver disease Acute gout, unspecified cause, unspecified site documented in this encounter [facility] note* Diagnosis Pre-op evaluation- Primary Preoperative examination, unspecified Type 2 diabetes mellitus with diabetic neuropathy, with long-term current use of insulin (HCC) Arteriosclerotic heart disease (ASHD) Coronary atherosclerosis of unspecified type of vessel, lime or graft Heart failure with preserved ejection fraction, unspecified HF chronicity (HCC) ABDI treated with BiPAP GERD without esophagitis Esophageal reflux S/P laparoscopic sleeve gastrectomy Bariatric surgery status Fatty liver Other chronic nonalcoholic liver disease Chronic kidney disease, stage IV (severe) (HCC) Chronic kidney disease, Stage IV (severe) History of thyroid cancer Personal history of malignant neoplasm of thyroid Anemia, unspecified type Cognitive impairment Unspecified persistent mental disorders due to conditions classified elsewhere Hyperlipidemia, unspecified hyperlipidemia type Edema, unspecified type Medicare annual wellness visit, subsequent- Primary Routine general medical examination at a health care facility documented in this encounter [facility] note* Diagnosis Pre-op evaluation- Primary Preoperative examination, unspecified Type 2 diabetes mellitus with diabetic neuropathy, with long-term current use of insulin (HCC) Arteriosclerotic heart disease (ASHD) Coronary atherosclerosis of unspecified type of vessel, lime or graft Heart failure with preserved ejection fraction, unspecified HF chronicity (HCC) ABDI treated with BiPAP GERD without esophagitis Esophageal reflux S/P laparoscopic sleeve gastrectomy Bariatric surgery status Fatty liver Other chronic nonalcoholic liver disease Chronic kidney disease, stage IV (severe) (HCC) Chronic kidney disease, Stage IV (severe) History of thyroid cancer Personal history of malignant neoplasm of thyroid Anemia, unspecified type Cognitive impairment Unspecified persistent mental disorders due to conditions classified elsewhere Hyperlipidemia, unspecified hyperlipidemia type Edema, unspecified type Acute gout involving toe of right foot, unspecified cause documented in this encounter [facility] note* Diagnosis Pre-op evaluation- Primary Preoperative examination, unspecified Type 2 diabetes mellitus with diabetic neuropathy, with long-term current use of insulin (HCC) Arteriosclerotic heart disease (ASHD) Coronary atherosclerosis of unspecified type of vessel, lime or graft Heart failure with preserved ejection fraction, unspecified HF chronicity (HCC) ABDI treated with BiPAP GERD without esophagitis Esophageal reflux S/P laparoscopic sleeve gastrectomy Bariatric surgery status Fatty liver Other chronic nonalcoholic liver disease Chronic kidney disease, stage IV (severe) (HCC) Chronic kidney disease, Stage IV (severe) History of thyroid cancer Personal history of malignant neoplasm of thyroid Anemia, unspecified type Cognitive impairment Unspecified persistent mental disorders due to conditions classified elsewhere Hyperlipidemia, unspecified hyperlipidemia type Edema, unspecified type Abscess of labia majora- Primary Other abscess of vulva documented in this encounter [facility] note* Diagnosis Pre-op evaluation- Primary Preoperative examination, unspecified Type 2 diabetes mellitus with diabetic neuropathy, with long-term current use of insulin (HCC) Arteriosclerotic heart disease (ASHD) Coronary atherosclerosis of unspecified type of vessel, lime or graft Heart failure with preserved ejection fraction, unspecified HF chronicity (HCC) ABDI treated with BiPAP GERD without esophagitis Esophageal reflux S/P laparoscopic sleeve gastrectomy Bariatric surgery status Fatty liver Other chronic nonalcoholic liver disease Chronic kidney disease, stage IV (severe) (HCC) Chronic kidney disease, Stage IV (severe) History of thyroid cancer Personal history of malignant neoplasm of thyroid Anemia, unspecified type Cognitive impairment Unspecified persistent mental disorders due to conditions classified elsewhere Hyperlipidemia, unspecified hyperlipidemia type Edema, unspecified type Hyperlipidemia, unspecified hyperlipidemia type [facility] Diagnosis Pre-op evaluation- Primary Preoperative examination, unspecified Type 2 diabetes mellitus with diabetic neuropathy, with long-term current use of insulin (HCC) Arteriosclerotic heart disease (ASHD) Coronary atherosclerosis of unspecified type of vessel, lime or graft Heart failure with preserved ejection fraction, unspecified HF chronicity (HCC) ABDI treated with BiPAP GERD without esophagitis Esophageal reflux S/P laparoscopic sleeve gastrectomy Bariatric surgery status Fatty liver Other chronic nonalcoholic liver disease Chronic kidney disease, stage IV (severe) (HCC) Chronic kidney disease, Stage IV (severe) History of thyroid cancer Personal history of malignant neoplasm of thyroid Anemia, unspecified type Cognitive impairment Unspecified persistent mental disorders due to conditions classified elsewhere Hyperlipidemia, unspecified hyperlipidemia type Edema, unspecified type Type 2 diabetes mellitus with diabetic neuropathy, with long-term current use of insulin (HCC)- Primary Postsurgical hypothyroidism Hypoglycemia Hypoglycemia, unspecified [facility]* Diagnosis Pre-op evaluation- Primary Preoperative examination, unspecified Type 2 diabetes mellitus with diabetic neuropathy, with long-term current use of insulin (HCC) Arteriosclerotic heart disease (ASHD) Coronary atherosclerosis of unspecified type of vessel, lime or graft Heart failure with preserved ejection fraction, unspecified HF chronicity (HCC) ABDI treated with BiPAP GERD without esophagitis Esophageal reflux S/P laparoscopic sleeve gastrectomy Bariatric surgery status Fatty liver Other chronic nonalcoholic liver disease Chronic kidney disease, stage IV (severe) (HCC) Chronic kidney disease, Stage IV (severe) History of thyroid cancer Personal history of malignant neoplasm of thyroid Anemia, unspecified type Cognitive impairment Unspecified persistent mental disorders due to conditions classified elsewhere Hyperlipidemia, unspecified hyperlipidemia type Edema, unspecified type Screening mammogram for breast cancer- Primary documented in this [facility]* Diagnosis Pre-op evaluation- Primary Preoperative examination, unspecified Type 2 diabetes mellitus with diabetic neuropathy, with long-term current use of insulin (HCC) Arteriosclerotic heart disease (ASHD) Coronary atherosclerosis of unspecified type of vessel, lime or graft Heart failure with preserved ejection fraction, unspecified HF chronicity (HCC) ABDI treated with BiPAP GERD without esophagitis Esophageal reflux S/P laparoscopic sleeve gastrectomy Bariatric surgery status Fatty liver Other chronic nonalcoholic liver disease Chronic kidney disease, stage IV (severe) (HCC) Chronic kidney disease, Stage IV (severe) History of thyroid cancer Personal history of malignant neoplasm of thyroid Anemia, unspecified type Cognitive impairment Unspecified persistent mental disorders due to conditions classified elsewhere Hyperlipidemia, unspecified hyperlipidemia type Edema, unspecified type Dementia without behavioral disturbance, psychotic disturbance, mood disturbance, or anxiety, unspecified dementia severity, unspecified dementia type (HCC) documented in this encounter [facility] note* Diagnosis Pre-op evaluation- Primary Preoperative examination, unspecified Type 2 diabetes mellitus with diabetic neuropathy, with long-term current use of insulin (HCC) Arteriosclerotic heart disease (ASHD) Coronary atherosclerosis of unspecified type of vessel, lime or graft Heart failure with preserved ejection fraction, unspecified HF chronicity (HCC) ABDI treated with BiPAP GERD without esophagitis Esophageal reflux S/P laparoscopic sleeve gastrectomy Bariatric surgery status Fatty liver Other chronic nonalcoholic liver disease Chronic kidney disease, stage IV (severe) (HCC) Chronic kidney disease, Stage IV (severe) History of thyroid cancer Personal history of malignant neoplasm of thyroid Anemia, unspecified type Cognitive impairment Unspecified persistent mental disorders due to conditions classified elsewhere Hyperlipidemia, unspecified hyperlipidemia type Edema, unspecified type Chronic pain syndrome- Primary Multiple joint pain Pain in joint, multiple sites Physical debility Debility, unspecified Depression, recurrent Major depressive disorder, recurrent episode, unspecified documented in this encounter [facility] note* Diagnosis Pre-op evaluation- Primary Preoperative examination, unspecified Type 2 diabetes mellitus with diabetic neuropathy, with long-term current use of insulin (HCC) Arteriosclerotic heart disease (ASHD) Coronary atherosclerosis of unspecified type of vessel, lime or graft Heart failure with preserved ejection fraction, unspecified HF chronicity (HCC) ABDI treated with BiPAP GERD without esophagitis Esophageal reflux S/P laparoscopic sleeve gastrectomy Bariatric surgery status Fatty liver Other chronic nonalcoholic liver disease Chronic kidney disease, stage IV (severe) (HCC) Chronic kidney disease, Stage IV (severe) History of thyroid cancer Personal history of malignant neoplasm of thyroid Anemia, unspecified type Cognitive impairment Unspecified persistent mental disorders due to conditions classified elsewhere Hyperlipidemia, unspecified hyperlipidemia type Edema, unspecified type Multiple joint pain Pain in joint, multiple sites documented in this encounter [facility] note* Diagnosis Pre-op evaluation- Primary Preoperative examination, unspecified Type 2 diabetes mellitus with diabetic neuropathy, with long-term current use of insulin (HCC) Arteriosclerotic heart disease (ASHD) Coronary atherosclerosis of unspecified type of vessel, lime or graft Heart failure with preserved ejection fraction, unspecified HF chronicity (HCC) ABDI treated with BiPAP GERD without esophagitis Esophageal reflux S/P laparoscopic sleeve gastrectomy Bariatric surgery status Fatty liver Other chronic nonalcoholic liver disease Chronic kidney disease, stage IV (severe) (HCC) Chronic kidney disease, Stage IV (severe) History of thyroid cancer Personal history of malignant neoplasm of thyroid Anemia, unspecified type Cognitive impairment Unspecified persistent mental disorders due to conditions classified elsewhere Hyperlipidemia, unspecified hyperlipidemia type Edema, unspecified type Screening mammogram for breast cancer documented in this encounter [facility] note* Diagnosis Pre-op evaluation- Primary Preoperative examination, unspecified Type 2 diabetes mellitus with diabetic neuropathy, with long-term current use of insulin (HCC) Arteriosclerotic heart disease (ASHD) Coronary atherosclerosis of unspecified type of vessel, lime or graft Heart failure with preserved ejection fraction, unspecified HF chronicity (HCC) ABDI treated with BiPAP GERD without esophagitis Esophageal reflux S/P laparoscopic sleeve gastrectomy Bariatric surgery status Fatty liver Other chronic nonalcoholic liver disease Chronic kidney disease, stage IV (severe) (HCC) Chronic kidney disease, Stage IV (severe) History of thyroid cancer Personal history of malignant neoplasm of thyroid Anemia, unspecified type Cognitive impairment Unspecified persistent mental disorders due to conditions classified elsewhere Hyperlipidemia, unspecified hyperlipidemia type Edema, unspecified type 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, bilateral Presence of artificial knee joint, bilateral Difficulty in walking, not elsewhere classified Muscle weakness (generalized) [facility]* Diagnosis Pre-op evaluation- Primary Preoperative examination, unspecified Type 2 diabetes mellitus with diabetic neuropathy, with long-term current use of insulin (HCC) Arteriosclerotic heart disease (ASHD) Coronary atherosclerosis of unspecified type of vessel, lime or graft Heart failure with preserved ejection fraction, unspecified HF chronicity (HCC) ABDI treated with BiPAP GERD without esophagitis Esophageal reflux S/P laparoscopic sleeve gastrectomy Bariatric surgery status Fatty liver Other chronic nonalcoholic liver disease Chronic kidney disease, stage IV (severe) (HCC) Chronic kidney disease, Stage IV (severe) History of thyroid cancer Personal history of malignant neoplasm of thyroid Anemia, unspecified type Cognitive impairment Unspecified persistent mental disorders due to conditions classified elsewhere Hyperlipidemia, unspecified hyperlipidemia type Edema, unspecified type Dementia without behavioral disturbance, psychotic disturbance, mood disturbance, or anxiety, unspecified dementia severity, unspecified dementia type (HCC)- Primary ABDI on CPAP Obstructive sleep apnea (adult) (pediatric) documented in [facility]* Diagnosis Pre-op evaluation- Primary Preoperative examination, unspecified Type 2 diabetes mellitus with diabetic neuropathy, with long-term current use of insulin (HCC) Arteriosclerotic heart disease (ASHD) Coronary atherosclerosis of unspecified type of vessel, lime or graft Heart failure with preserved ejection fraction, unspecified HF chronicity (HCC) ABDI treated with BiPAP GERD without esophagitis Esophageal reflux S/P laparoscopic sleeve gastrectomy Bariatric surgery status Fatty liver Other chronic nonalcoholic liver disease Chronic kidney disease, stage IV (severe) (HCC) Chronic kidney disease, Stage IV (severe) History of thyroid cancer Personal history of malignant neoplasm of thyroid Anemia, unspecified type Cognitive impairment Unspecified persistent mental disorders due to conditions classified elsewhere Hyperlipidemia, unspecified hyperlipidemia type Edema, unspecified type Type 2 diabetes mellitus with stage 3b chronic kidney disease, with long-term current use of insulin (HCC) documented in this encounter [facility] noteNo assessment information availableWJoint [facility] Work Phone: Evaluation note* Diagnosis Pre-op evaluation- Primary Preoperative examination, unspecified Type 2 diabetes mellitus with diabetic neuropathy, with long-term current use of insulin (HCC) Arteriosclerotic heart disease (ASHD) Coronary atherosclerosis of unspecified type of vessel, lime or graft Heart failure with preserved ejection fraction, unspecified HF chronicity (HCC) ABDI treated with BiPAP GERD without esophagitis Esophageal reflux S/P laparoscopic sleeve gastrectomy Bariatric surgery status Fatty liver Other chronic nonalcoholic liver disease Chronic kidney disease, stage IV (severe) (HCC) Chronic kidney disease, Stage IV (severe) History of thyroid cancer Personal history of malignant neoplasm of thyroid Anemia, unspecified type Cognitive impairment Unspecified persistent mental disorders due to conditions classified elsewhere Hyperlipidemia, unspecified hyperlipidemia type Edema, unspecified type Vaginal bleeding- Primary Other specified noninflammatory disorder of vagina Postmenopausal bleeding documented in this encounter [facility] note* Diagnosis Pre-op evaluation- Primary Preoperative examination, unspecified Type 2 diabetes mellitus with diabetic neuropathy, with long-term current use of insulin (HCC) Arteriosclerotic heart disease (ASHD) Coronary atherosclerosis of unspecified type of vessel, lime or graft Heart failure with preserved ejection fraction, unspecified HF chronicity (HCC) ABDI treated with BiPAP GERD without esophagitis Esophageal reflux S/P laparoscopic sleeve gastrectomy Bariatric surgery status Fatty liver Other chronic nonalcoholic liver disease Chronic kidney disease, stage IV (severe) (HCC) Chronic kidney disease, Stage IV (severe) History of thyroid cancer Personal history of malignant neoplasm of thyroid Anemia, unspecified type Cognitive impairment Unspecified persistent mental disorders due to conditions classified elsewhere Hyperlipidemia, unspecified hyperlipidemia type Edema, unspecified type Osteoarthritis of right glenohumeral joint- Primary Osteoarthritis of right glenohumeral joint documented in this encounter [facility] note* Diagnosis Pre-op evaluation- Primary Preoperative examination, unspecified Type 2 diabetes mellitus with diabetic neuropathy, with long-term current use of insulin (HCC) Arteriosclerotic heart disease (ASHD) Coronary atherosclerosis of unspecified type of vessel, lime or graft Heart failure with preserved ejection fraction, unspecified HF chronicity (HCC) ABDI treated with BiPAP GERD without esophagitis Esophageal reflux S/P laparoscopic sleeve gastrectomy Bariatric surgery status Fatty liver Other chronic nonalcoholic liver disease Chronic kidney disease, stage IV (severe) (HCC) Chronic kidney disease, Stage IV (severe) History of thyroid cancer Personal history of malignant neoplasm of thyroid Anemia, unspecified type Cognitive impairment Unspecified persistent mental disorders due to conditions classified elsewhere Hyperlipidemia, unspecified hyperlipidemia type Edema, unspecified type Heart failure with preserved ejection fraction, unspecified HF chronicity (HCC)- Primary Myalgia Mylagia and myositis, unspecified Type 2 diabetes mellitus with stage 3b chronic kidney disease, with long-term current use of insulin ([facility]) Encounter for screening examination for other mental health and behavioral disorders Type 2 diabetes mellitus with stage 3a chronic kidney disease, with long-term current use of insulin (HCC) Edema, unspecified type Gout, unspecified cause, unspecified chronicity, unspecified site Dementia without behavioral disturbance (HCC) Dementia, unspecified, without behavioral disturbance Depression, recurrent Major depressive disorder, recurrent episode, unspecified Osteoarthritis of right glenohumeral joint documented in this encounter [facility] note* Diagnosis Pre-op evaluation- Primary Preoperative examination, unspecified Type 2 diabetes mellitus with diabetic neuropathy, with long-term current use of insulin (HCC) Arteriosclerotic heart disease (ASHD) Coronary atherosclerosis of unspecified type of vessel, lime or graft Heart failure with preserved ejection fraction, unspecified HF chronicity (HCC) ABDI treated with BiPAP GERD without esophagitis Esophageal reflux S/P laparoscopic sleeve gastrectomy Bariatric surgery status Fatty liver Other chronic nonalcoholic liver disease Chronic kidney disease, stage IV (severe) (HCC) Chronic kidney disease, Stage IV (severe) History of thyroid cancer Personal history of malignant neoplasm of thyroid Anemia, unspecified type Cognitive impairment Unspecified persistent mental disorders due to conditions classified elsewhere Hyperlipidemia, unspecified hyperlipidemia type Edema, unspecified type Osteoarthritis of right glenohumeral joint- Primary Osteoarthritis of left glenohumeral joint Osteoarthritis of right glenohumeral joint documented in this encounter [facility] note* Diagnosis Pre-op evaluation- Primary Preoperative examination, unspecified Type 2 diabetes mellitus with diabetic neuropathy, with long-term current use of insulin (HCC) Arteriosclerotic heart disease (ASHD) Coronary atherosclerosis of unspecified type of vessel, lime or graft Heart failure with preserved ejection fraction, unspecified HF chronicity (HCC) ABDI treated with BiPAP GERD without esophagitis Esophageal reflux S/P laparoscopic sleeve gastrectomy Bariatric surgery status Fatty liver Other chronic nonalcoholic liver disease Chronic kidney disease, stage IV (severe) (HCC) Chronic kidney disease, Stage IV (severe) History of thyroid cancer Personal history of malignant neoplasm of thyroid Anemia, unspecified type Cognitive impairment Unspecified persistent mental disorders due to conditions classified elsewhere Hyperlipidemia, unspecified hyperlipidemia type Edema, unspecified type Type 2 diabetes mellitus with diabetic neuropathy, with long-term current use of insulin (HCC) Type 2 diabetes mellitus with stage 3a chronic kidney disease, with long-term current use of insulin (HCC) Osteoarthritis of right glenohumeral joint documented in this encounter [facility] note* Diagnosis Onset Date Resolution Status Admit Date 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 April 30 3:36pm Chronic diastolic (congestiv e) heart failure chronic April 30 3:36pm Essential (primary) hypertension chr onic April 30, 2025 3:36pm Hyperlipidemia chronic April 3:36pm ABDI (obstructive sleep apnea) chroni c April 30, 2025 3:36pm Pulmonary hypertension chronic Au 2024 3:36pm [facility] Work Phone: Hospital Discharge instructions Additional Instructions Your workup today showed no signs of cardiac damage. Continue your home medications as directed by your doctor and return to the ER should you have any further [facility]: Hospital Discharge instructionsAdditional Instructions Your workup today indicates that the bleeding is most likely coming from your bladder and that this was caused from a secondary infection. Take the antibiotic as directed to help resolve symptoms and return to the ER should you have any further concernsWJoint [facility] Work Phone: Instructions* Instruction Description Start Date Patient advised to follow-up with Primary Care Physician for BMI management. [facility] Work Phone: Patient's home Plan of care note* Visit Details Visit Type -PT SOC Discipline -Physical Therapy Problems Problem Description Start Date Status Goals Interve ntions Medication Education Disciplines: Skilled Services 01/26/2024 Active 1 goal linked to scheduled/document ed intervention 1 goal intervention scheduled/document ed in this visit Sepsis Disciplines: Skilled Services 01/26/2024 Active 1 goal linked to scheduled/document ed intervention 1 goal intervention scheduled/document ed in this visit Physician Specific Parameters Disciplines: Skilled Services 01/26/2024 Active 1 goal linked to scheduled/document ed intervention 2 goal interventions scheduled/document ed in this visit Risk for Falls Disciplines: Skilled Services 01/26/2024 Active 1 goal linked to scheduled/document ed intervention 1 goal intervention scheduled/document ed in this visit Pain Disciplines: Skilled Services 01/26/2024 Active 1 goal linked to scheduled/document ed intervention 1 goal intervention scheduled/document ed in this visit Discharge Disciplines: Skilled Services 01/26/2024 Active 1 goal linked to scheduled/document ed intervention 1 goal intervention scheduled/document ed in this visit PT Impaired muscle performance and/or ROM Disciplines: PT 01/26/2024 Active 1 goal linked to scheduled/document ed intervention 1 goal intervention scheduled/document ed in this visit PT Impaired mobility Disciplines: PT 01/26/2024 Active 2 goals linked to scheduled/document ed interventions 2 goal interventions scheduled/document ed in this visit PT Impaired gait Disciplines: PT 01/26/2024 Active 1 goal linked to scheduled/document ed intervention 1 goal intervention scheduled/document ed in this visit PT Impaired balance Disciplines: PT 01/26/2024 Active 1 goal linked to scheduled/document ed intervention 1 goal intervention scheduled/document ed in this visit PT Orthopedic Condition Disciplines: PT 01/26/2024 Active 1 goal linked to scheduled/document ed intervention 4 goal interventions scheduled/document ed in this visit PT Learning Assessment Disciplines: PT 01/26/2024 Active 1 goal linked to scheduled/document ed intervention 1 goal intervention scheduled/document ed in this visit Goals Goal Associated Problem Outcome Goal Met? Visit Notes Patient/caregiver will demonstrate ability to obtain, store, identify and administer ordered medications, keep accurate medication list in home, and adhere to medication schedule Description: Patient/caregiver will demonstrate ability to obtain, store, identify and administer ordered medications, keep accurate medication list in home, and adhere to medication schedule by 03/25/24. Medication Education No Patient/caregiver will be able to identify and report symptoms of sepsis Description: Patient/caregiver will be able to identify signs/symptoms of sepsis infection and will verbalize actions to take if suspected by 03/25/24. Sepsis No Patient to maintain parameters within physician-specified ranges throughout certification period Physician Specific Parameters No Manage Risk for falls Description: Patient/caregiver will verbalize knowledge of individualized fall prevention strategies by 03/25/24. Risk for Falls No Manage Pain Description: Patient/caregiver will verbalize knowledge and understanding of appropriate techniques to control pain, including non-pharmacological techniques. Patient will verbalize or demonstrate an acceptable level of pain as evidenced by a pain score of 0-2/10 and improvement in ability to perform activities of daily living to be achieved by 03/25/24. Pain No Manage discharge planning Description: Patient/caregiver will verbalize understanding of ongoing discharge plan provided related to disease management, arrangements for outpatient and/or community services, obtaining medications, supplies, and DME, as needed throughout certification period. Discharge No Improved Muscle Performance and/or ROM Description: LTG: Patient will demonstrate improved muscle performance to meet functional goals as evidenced by ability to tolerate 8 mins of standing activity, to be achieved by 02/16/24. LTG: Patient and/or caregiver will verbalize/demonstrate independence with home exercise program, to improve functional mobility, to be achieved by 02/16/24. PT Impaired muscle performance and/or ROM No Improved Transfers Description: LTG: Patient will demonstrate safe transfers to/from bed, chair and toilet independently with AD, to be achieved by 02/16/24. PT Impaired mobility No Improved Bed Mobility Description: STG: Patient will demonstrate improved ability to position self independently in lift chair to be achieved by 02/09/24. PT Impaired mobility No Improved Gait Description: LTG: Patient will demonstrate improved gait ability as evidenced by ambulation 200 feet with front wheeled walker independently with AD, to return to safe household ambulation, in order to reach car in the driveway, to be achieved by 02/16/24. PT Impaired gait No Improved Balance Description: LTG: Patient will demonstrate improved standing balance to meet functional goals as evidenced by no falls during home P.T. to be achieved by 02/16/24. PT Impaired balance No Manage Orthopedic Condition Description: Improve patient and/or caregiver understanding of post surgical and/or non-surgical orthopedic intervention management as evidenced by patient and/or caregiver able to verbalize, demonstrate, and teach back instruction, to be achieved by 02/16/24. PT Orthopedic Condition No Demonstrate understanding of education Description: Patient and/or caregiver will understand educational instruction to be achieved by 02/16/24. PT Learning Assessment No Interventions Intervention Associated Problem/Goal Status Variance Visit Notes Medication Education Description: Evaluate/instruct patient/caregiver on obtaining, storing, identifying and administering ordered medications as well as keeping accurate medication list in the home and adhereing to medication schedule Problem:Medication Education Goal:Patient/caregive r will demonstrate ability to obtain, store, identify and administer ordered medications, keep accurate medication list in home, and adhere to medication schedule Completed Patient instructed on importance of keeping accurate medication list in home. Risk of Sepsis Description: Patient is at risk for sepsis. Monitor closely for s/s of sepsis. Problem:Sepsis Goal:Patient/caregive r will be able to identify and report symptoms of sepsis Completed Blood Sugar Description: Notify Dr. Beltran if blood sugar 200 for more than 2 consecutive days. Problem:Physician Specific Parameters Goal:Patient to maintain parameters within physician-specified ranges throughout certification period Completed SPO2 Description: Notify Dr. Beltran if pulse ox is <92% at rest. Problem:Physician Specific Parameters Goal:Patient to maintain parameters within physician-specified ranges throughout certification period Completed Instruct on individual fall risk factors and strategies to prevent falls and injuries caused by falls. Problem:Risk for Falls Goal:Manage Risk for falls Completed PT: Patient instructed on Managing Impaired Functional Mobility: Use assistive device(s): front wheeled walker Managing Pain Instruct on pain and instruct on strategies to control pain Problem:Pain Goal:Manage Pain Completed patient instructed on techniques to control pain including Non-Pharmacological measures; rest, positioning/elevation and mobility/therapeutic exercise. Instruct on ongoing discharge plan Problem:Discharge Goal:Manage discharge planning Completed Ongoing Discharge plan: Discharge plan discussed with patient including frequency and duration for home PT and plan for transition to: caregiver assistance. Physical Therapy Therapeutic Exercises Problem:PT Impaired muscle performance and/or ROM Goal:Improved Muscle Performance and/or ROM Completed Developed, implemented, and instructed patient and/or caregiver on strengthening exercises: ambulation every hour awake for a total of atleast 10 times a day to tolerance. Instructed patient and/or caregiver in HEP and progressed HEP to include: increased distance and time ambulation as tolerated. . Instructed patient and/or caregiver to perform HEP hourly Physical Therapy Transfer Training Problem:PT Impaired mobility Goal:Improved Transfers Completed Transfer training and instruction to patient on safe transfers to and from bed, chair and toilet with supervision and verbal cues for sequence. Physical Therapy Bed Mobility Training Problem:PT Impaired mobility Goal:Improved Bed Mobility Completed Bed mobility training and instruction to patient, including repositioning self with supervision and verbal cues for sequence. Physical Therapy Gait Training Problem:PT Impaired gait Goal:Improved Gait Completed Gait training and instruction to patient on safe ambulation with front wheeled walker for 50 feet with supervision, with verbal cues for corrections of gait deviations including sequence. Physical Therapy Balance Training Problem:PT Impaired balance Goal:Improved Balance Completed Developed, implemented, and instructed patient on standing balance exercises including ambulation with fww. Instruct on orthopedic precautions and weight bearing restrictions Description: Orthopedic precautions including left posterior hip: no hip flexion > 90 degrees, no hip abduction and no IR rotation of involved extermity. Weight bearing restrictions include: WBAT of involved extremity. Problem:PT Orthopedic Condition Goal:Manage Orthopedic Condition Completed patient instructed on orthopedic precautions and weight bearing restrictions. Instruct on management of edema Problem:PT Orthopedic Condition Goal:Manage Orthopedic Condition Completed Instruct patient on management of edema including elevation of bilat LE above the level of the heart. Physical therapy to perform surgical incision/wound management Description: Removal of post-op dressing on 01/28/24. If no drainage is present, leave open to air; if drainage is present, cover with clean dressing and contact provider and PT case monitor. Problem:PT Orthopedic Condition Goal:Manage Orthopedic Condition Completed Intervention completed this date. Instruct on self-management of post surgical and/or non-surgical orthopedic intervention Problem:PT Orthopedic Condition Goal:Manage Orthopedic Condition Completed patient instructed on managagement of orthopedic condition. Instruct and educate on knowledge deficits Problem:PT Learning Assessment Goal:Demonstrate understanding of education Completed patient verbalize and/or demonstrate understanding of physical therapy education including fall prevention strategies, home safety, functional activity and home exercise program. Education methods include: verbal cues. Further education required to improve knowledge and compliance with fall prevention strategies, home safety, functional activity and home exercise program. [facility] Visit Details Visit Type -CLINICAL INVESTIGATOR ROUTINE Discipline -Physical Therapy Problems Problem Description Start Date Status Goals Interve ntions Medication Education Disciplines: Skilled Services 01/26/2024 Active 1 goal linked to scheduled/document ed intervention 1 goal intervention scheduled/document ed in this visit Sepsis Disciplines: Skilled Services 01/26/2024 Active 1 goal linked to scheduled/document ed intervention 1 goal intervention scheduled/document ed in this visit Physician Specific Parameters Disciplines: Skilled Services 01/26/2024 Active 1 goal linked to scheduled/document ed intervention 1 goal intervention scheduled/document ed in this visit Risk for Falls Disciplines: Skilled Services 01/26/2024 Active 1 goal linked to scheduled/document ed intervention 1 goal intervention scheduled/document ed in this visit Pain Disciplines: Skilled Services 01/26/2024 Active 1 goal linked to scheduled/document ed intervention 1 goal intervention scheduled/document ed in this visit Discharge Disciplines: Skilled Services 01/26/2024 Active 1 goal linked to scheduled/document ed intervention 1 goal intervention scheduled/document ed in this visit PT Impaired muscle performance and/or ROM Disciplines: PT 01/26/2024 Active 1 goal linked to scheduled/document ed intervention 1 goal intervention scheduled/document ed in this visit PT Impaired mobility Disciplines: PT 01/26/2024 Active 1 goal linked to scheduled/document ed intervention 1 goal intervention scheduled/document ed in this visit PT Impaired gait Disciplines: PT 01/26/2024 Active 1 goal linked to scheduled/document ed intervention 1 goal intervention scheduled/document ed in this visit PT Orthopedic Condition Disciplines: PT 01/26/2024 Active 1 goal linked to scheduled/document ed intervention 4 goal interventions scheduled/document ed in this visit PT Learning Assessment Disciplines: PT 01/26/2024 Active 1 goal linked to scheduled/document ed intervention 1 goal intervention scheduled/document ed in this visit Goals Goal Associated Problem Outcome Goal Met? Visit Notes Patient/caregiver will demonstrate ability to obtain, store, identify and administer ordered medications, keep accurate medication list in home, and adhere to medication schedule Description: Patient/caregiver will demonstrate ability to obtain, store, identify and administer ordered medications, keep accurate medication list in home, and adhere to medication schedule by 03/25/24. Medication Education No Patient/caregiver will be able to identify and report symptoms of sepsis Description: Patient/caregiver will be able to identify signs/symptoms of sepsis infection and will verbalize actions to take if suspected by 03/25/24. Sepsis No Patient to maintain parameters within physician-specified ranges throughout certification period Physician Specific Parameters No Manage Risk for falls Description: Patient/caregiver will verbalize knowledge of individualized fall prevention strategies by 03/25/24. Risk for Falls No Manage Pain Description: Patient/caregiver will verbalize knowledge and understanding of appropriate techniques to control pain, including non-pharmacological techniques. Patient will verbalize or demonstrate an acceptable level of pain as evidenced by a pain score of 0-2/10 and improvement in ability to perform activities of daily living to be achieved by 03/25/24. Pain No Manage discharge planning Description: Patient/caregiver will verbalize understanding of ongoing discharge plan provided related to disease management, arrangements for outpatient and/or community services, obtaining medications, supplies, and DME, as needed throughout certification period. Discharge No Improved Muscle Performance and/or ROM Description: LTG: Patient will demonstrate improved muscle performance to meet functional goals as evidenced by ability to tolerate 8 mins of standing activity, to be achieved by 02/16/24. LTG: Patient and/or caregiver will verbalize/demonstrate independence with home exercise program, to improve functional mobility, to be achieved by 02/16/24. PT Impaired muscle performance and/or ROM No Improved Transfers Description: LTG: Patient will demonstrate safe transfers to/from bed, chair and toilet independently with AD, to be achieved by 02/16/24. PT Impaired mobility No Improved Gait Description: LTG: Patient will demonstrate improved gait ability as evidenced by ambulation 200 feet with front wheeled walker independently with AD, to return to safe household ambulation, in order to reach car in the driveway, to be achieved by 02/16/24. PT Impaired gait No Manage Orthopedic Condition Description: Improve patient and/or caregiver understanding of post surgical and/or non-surgical orthopedic intervention management as evidenced by patient and/or caregiver able to verbalize, demonstrate, and teach back instruction, to be achieved by 02/16/24. PT Orthopedic Condition No Demonstrate understanding of education Description: Patient and/or caregiver will understand educational instruction to be achieved by 02/16/24. PT Learning Assessment No Interventions Intervention Associated Problem/Goal Status Variance Visit Notes Medication Education Description: Evaluate/instruct patient/caregiver on obtaining, storing, identifying and administering ordered medications as well as keeping accurate medication list in the home and adhereing to medication schedule Problem:Medication Education Goal:Patient/caregive r will demonstrate ability to obtain, store, identify and administer ordered medications, keep accurate medication list in home, and adhere to medication schedule Completed Patient instructed on importance of keeping accurate medication list in home. Risk of Sepsis Description: Patient is at risk for sepsis. Monitor closely for s/s of sepsis. Problem:Sepsis Goal:Patient/caregive r will be able to identify and report symptoms of sepsis Completed SPO2 Description: Notify Dr. Beltran if pulse ox is <92% at rest. Problem:Physician Specific Parameters Goal:Patient to maintain parameters within physician-specified ranges throughout certification period Completed Instruct on individual fall risk factors and strategies to prevent falls and injuries caused by falls. Problem:Risk for Falls Goal:Manage Risk for falls Completed PT: Patient instructed on Managing Impaired Functional Mobility: Use assistive device(s): front wheeled walker Instruct on pain and instruct on strategies to control pain Problem:Pain Goal:Manage Pain Completed patient instructed on techniques to control pain including Pharmacological measures and Non-Pharmacological measures; positioning/elevation and use of thermal modalities, apply ice to affected area for the following prescribed frequency: prn. Instruct on ongoing discharge plan Problem:Discharge Goal:Manage discharge planning Completed Ongoing Discharge plan: Discharge plan discussed with patient including frequency and duration for home PT and plan for transition to: live independently at home without ongoing services. Physical Therapy Therapeutic Exercises Problem:PT Impaired muscle performance and/or ROM Goal:Improved Muscle Performance and/or ROM Completed patient instructed on strengthening exercises including ankle pumps, quad and glut sets, hip abd and add, saq and heel slides and seated laq x;s 10each with tactile, visual, written and verbal cues for correct form. patient and caregiver instructed to perform home exercise program twice a day which included above exercises. Physical Therapy Transfer Training Problem:PT Impaired mobility Goal:Improved Transfers Completed Transfer training and instruction to patient on safe transfers to and from chair with stand by assist and verbal cues for raising lift chair prior to standing. Physical Therapy Gait Training Problem:PT Impaired gait Goal:Improved Gait Completed Gait training and instruction to patient on safe ambulation with front wheeled walker for 25, 40 feet with stand by assist, with verbal cues for corrections of gait deviations including increased step length. Instruct on orthopedic precautions and weight bearing restrictions Description: Orthopedic precautions including left posterior hip: no hip flexion > 90 degrees, no hip abduction and no IR rotation of involved extermity. Weight bearing restrictions include: WBAT of involved extremity. Problem:PT Orthopedic Condition Goal:Manage Orthopedic Condition Completed patient instructed on orthopedic precautions. Instruct on management of edema Problem:PT Orthopedic Condition Goal:Manage Orthopedic Condition Completed Instruct patient on management of edema including elevation of LLE above the level of the heart and ice. Physical therapy to perform surgical incision/wound management Description: Removal of post-op dressing on 01/28/24. If no drainage is present, leave open to air; if drainage is present, cover with clean dressing and contact provider and PT case monitor. Problem:PT Orthopedic Condition Goal:Manage Orthopedic Condition Completed Intervention completed this date. With patient and husbands consent, picture obtained and uploaded to chart Instruct on self-management of post surgical and/or non-surgical orthopedic intervention Problem:PT Orthopedic Condition Goal:Manage Orthopedic Condition Completed patient and caregiver instructed on incision care: no lotions/creams or rubbing, signs and symptoms of infection, signs and symptoms of DVT/PE, instructed on when to call provider and instructed on when to call 911. Instruct and educate on knowledge deficits Problem:PT Learning Assessment Goal:Demonstrate understanding of education Completed patient verbalize and/or demonstrate understanding of physical therapy education including surgical precautions, pain management and home exercise program. Education methods include: verbal cues, tactile cues, written instructions, visual cues and teach back. Further education required to improve knowledge and compliance with home exercise program. documented in this encounter [facility] home Plan of care note* Visit Details Visit Type -PT ROUTINE Discipline -Physical Therapy Problems Problem Description Start Date Status Goals Interve ntions Sepsis Disciplines: Skilled Services 01/26/2024 Active 1 goal linked to scheduled/document ed intervention 1 goal intervention scheduled/document ed in this visit Physician Specific Parameters Disciplines: Skilled Services 01/26/2024 Active 1 goal linked to scheduled/document ed intervention 2 goal interventions scheduled/document ed in this visit Risk for Falls Disciplines: Skilled Services 01/26/2024 Active 1 goal linked to scheduled/document ed intervention 1 goal intervention scheduled/document ed in this visit PT Impaired muscle performance and/or ROM Disciplines: PT 01/26/2024 Active 1 goal linked to scheduled/document ed intervention 1 goal intervention scheduled/document ed in this visit PT Impaired mobility Disciplines: PT 01/26/2024 Active 2 goals linked to scheduled/document ed interventions 2 goal interventions scheduled/document ed in this visit PT Impaired gait Disciplines: PT 01/26/2024 Active 1 goal linked to scheduled/document ed intervention 1 goal intervention scheduled/document ed in this visit PT Orthopedic Condition Disciplines: PT 01/26/2024 Active 1 goal linked to scheduled/document ed intervention 3 goal interventions scheduled/document ed in this visit PT Learning Assessment Disciplines: PT 01/26/2024 Active 1 goal linked to scheduled/document ed intervention 1 goal intervention scheduled/document ed in this visit Goals Goal Associated Problem Outcome Goal Met? Visit Notes Patient/caregiver will be able to identify and report symptoms of sepsis Description: Patient/caregiver will be able to identify signs/symptoms of sepsis infection and will verbalize actions to take if suspected by 03/25/24. Sepsis No Patient to maintain parameters within physician-specified ranges throughout certification period Physician Specific Parameters No Manage Risk for falls Description: Patient/caregiver will verbalize knowledge of individualized fall prevention strategies by 03/25/24. Risk for Falls No Improved Muscle Performance and/or ROM Description: LTG: Patient will demonstrate improved muscle performance to meet functional goals as evidenced by ability to tolerate 8 mins of standing activity, to be achieved by 02/16/24. LTG: Patient and/or caregiver will verbalize/demonstrate independence with home exercise program, to improve functional mobility, to be achieved by 02/16/24. PT Impaired muscle performance and/or ROM No Improved Transfers Description: LTG: Patient will demonstrate safe transfers to/from bed, chair and toilet independently with AD, to be achieved by 02/16/24. PT Impaired mobility No Improved Bed Mobility Description: STG: Patient will demonstrate improved ability to position self independently in lift chair to be achieved by 02/09/24. PT Impaired mobility No Improved Gait Description: LTG: Patient will demonstrate improved gait ability as evidenced by ambulation 200 feet with front wheeled walker independently with AD, to return to safe household ambulation, in order to reach car in the driveway, to be achieved by 02/16/24. PT Impaired gait No Manage Orthopedic Condition Description: Improve patient and/or caregiver understanding of post surgical and/or non-surgical orthopedic intervention management as evidenced by patient and/or caregiver able to verbalize, demonstrate, and teach back instruction, to be achieved by 02/16/24. PT Orthopedic Condition No Demonstrate understanding of education Description: Patient and/or caregiver will understand educational instruction to be achieved by 02/16/24. PT Learning Assessment No Interventions Intervention Associated Problem/Goal Status Variance Visit Notes Risk of Sepsis Description: Patient is at risk for sepsis. Monitor closely for s/s of sepsis. Problem:Sepsis Goal:Patient/caregiver will be able to identify and report symptoms of sepsis Completed Blood Sugar Description: Notify Dr. Beltran if blood sugar 200 for more than 2 consecutive days. Problem:Physician Specific Parameters Goal:Patient to maintain parameters within physician-specified ranges throughout certification period Completed SPO2 Description: Notify Dr. Beltran if pulse ox is <92% at rest. Problem:Physician Specific Parameters Goal:Patient to maintain parameters within physician-specified ranges throughout certification period Completed Instruct on individual fall risk factors and strategies to prevent falls and injuries caused by falls. Problem:Risk for Falls Goal:Manage Risk for falls Completed PT: Patient instructed on Eliminating Environmental Hazards: Keep pathways clear, Remove unsafe rugs, Move furniture from pathways and Wear supportive shoes or non-skid socks Managing Impaired Functional Mobility: Use assistive device(s): front wheeled walker Managing Pain Physical Therapy Therapeutic Exercises Problem:PT Impaired muscle performance and/or ROM Goal:Improved Muscle Performance and/or ROM Completed patient instructed on strengthening exercises including ankle pumps, quad and glut sets, hip abd and add, saq and heel slides and seated laq x;s 10each with tactile, visual, written and verbal cues for correct form. patient and caregiver instructed to perform home exercise program twice a day which included above exercises. Physical Therapy Transfer Training Problem:PT Impaired mobility Goal:Improved Transfers Completed Transfer training and instruction to patient on safe transfers to and from bed and chair with cga and verbal cues for TECHNIQUE . { Physical Therapy Bed Mobility Training Problem:PT Impaired mobility Goal:Improved Bed Mobility Completed Bed mobility training and instruction to patient, including supine<>sit and repositioning self with contact guard assist and tactile, visual and verbal cues for technique . Physical Therapy Gait Training Problem:PT Impaired gait Goal:Improved Gait Completed Gait training and instruction to patient on safe ambulation with front wheeled walker for 40' x 2 feet with stand by assist, with visual and verbal cues for corrections of gait deviations including stride length , especially with the R leg. Instruct on orthopedic precautions and weight bearing restrictions Description: Orthopedic precautions including left posterior hip: no hip flexion > 90 degrees, no hip abduction and no IR rotation of involved extermity. Weight bearing restrictions include: WBAT of involved extremity. Problem:PT Orthopedic Condition Goal:Manage Orthopedic Condition Completed patient instructed on orthopedic precautions. Instruct on management of edema Problem:PT Orthopedic Condition Goal:Manage Orthopedic Condition Completed Instruct patient on management of edema including elevation of LLE above the level of the heart and ice. Instruct on self-management of post surgical and/or non-surgical orthopedic intervention Problem:PT Orthopedic Condition Goal:Manage Orthopedic Condition Completed patient instructed on managagement of orthopedic condition, eating foods with high protein, signs and symptoms of infection, signs and symptoms of DVT/PE, follow provider guidance for showering and instructed on when to call provider. Instruct and educate on knowledge deficits Problem:PT Learning Assessment Goal:Demonstrate understanding of education Completed patient verbalize and/or demonstrate understanding of physical therapy education including orthopedic condition management, surgical precautions, pain management, fall prevention strategies, home safety, functional activity and home exercise program. Education methods include: verbal cues and written instructions. Further education required to improve knowledge and compliance with fall prevention strategies, home safety, functional activity and home exercise program. [facility] Visit Details Visit Type -OT EVAL Discipline -Occupational Therapy Problems Problem Description Start Date Status Goals Interve ntions OT Referral Disciplines: Skilled Services 01/26/2024 Resolved on 01/31/2024 1 goal linked to scheduled/documen jose luis intervention 1 goal intervention scheduled/document ed in this visit Physician Specific Parameters Disciplines: Skilled Services 01/26/2024 Active 1 goal linked to scheduled/documen jose luis intervention 1 goal intervention scheduled/document ed in this visit Risk for Falls Disciplines: Skilled Services 01/26/2024 Active 1 goal linked to scheduled/documen jose luis intervention 1 goal intervention scheduled/document ed in this visit Pain Disciplines: Skilled Services 01/26/2024 Active 1 goal linked to scheduled/documen jose luis intervention 1 goal intervention scheduled/document ed in this visit Discharge Disciplines: Skilled Services 01/26/2024 Active 1 goal linked to scheduled/documen jose luis intervention 1 goal intervention scheduled/document ed in this visit OT Learning Assessment Disciplines: OT 01/31/2024 Active 1 goal linked to scheduled/documen jose luis intervention 1 goal intervention scheduled/document ed in this visit OT Functional Transfers Disciplines: OT 01/31/2024 Active 1 goal linked to scheduled/documen jose luis intervention 1 goal intervention scheduled/document ed in this visit OT Orthopedic Post Surgical and/or Non Surgical Condition Disciplines: OT 01/31/2024 Active 1 goal linked to scheduled/documen jose luis intervention 2 goal interventions scheduled/document ed in this visit Goals Goal Associated Problem Outcome Goal Met? Visit Notes Patient will be referred to additional discipline as needed OT Referral Completed Yes ot evaluation completed Patient to maintain parameters within physician-specified ranges throughout certification period Physician Specific Parameters No Manage Risk for falls Description: Patient/caregiver will verbalize knowledge of individualized fall prevention strategies by 03/25/24. Risk for Falls No Manage Pain Description: Patient/caregiver will verbalize knowledge and understanding of appropriate techniques to control pain, including non-pharmacological techniques. Patient will verbalize or demonstrate an acceptable level of pain as evidenced by a pain score of 0-2/10 and improvement in ability to perform activities of daily living to be achieved by 03/25/24. Pain No Manage discharge planning Description: Patient/caregiver will verbalize understanding of ongoing discharge plan provided related to disease management, arrangements for outpatient and/or community services, obtaining medications, supplies, and DME, as needed throughout certification period. Discharge No Demonstrate understanding of education Description: Patient and/or caregiver will understand educational instruction to be achieved by 02/16/24. OT Learning Assessment No Improved Functional Transfers Description: patient will demonstrate safe transfers to/from toilet indep and shower/tub with supervision assistance and minimal verbal cues with use of DME to be achieved by 02/16/24. OT Functional Transfers No Manage Orthopedic Condition Description: Improve patient and/or caregiver understanding of post surgical and/or non-surgical orthopedic intervention management as evidenced by patient and/or caregiver able to verbalize, demonstrate, and teach back instruction with a minimum of two strategies. To be achieved by 02/16/24. OT Orthopedic Post Surgical and/or Non Surgical Condition No Interventions Intervention Associated Problem/Goal Status Variance Visit Notes OT evaluation and treatment Description: Evaluate and treat for the assessment of functional deficits and establishment of appropriate interventions and education to address: I/ADL training, functional transfers, DME/adaptive equipment recommendations, safety awareness and home safety and falls prevention recommendations. Problem:OT Referral Goal:Patient will be referred to additional discipline as needed Completed SPO2 Description: Notify Dr. Beltran if pulse ox is <92% at rest. Problem:Physician Specific Parameters Goal:Patient to maintain parameters within physician-specified ranges throughout certification period Completed Instruct on individual fall risk factors and strategies to prevent falls and injuries caused by falls. Problem:Risk for Falls Goal:Manage Risk for falls Completed OT: Patient and Caregiver instructed on Managing Impaired Functional Mobility: Use assistive device(s): front wheeled walker and Caregiver to provide assist with: Ambulation, Steps, Transfers and ADL/IADLs Instruct on pain and instruct on strategies to control pain Problem:Pain Goal:Manage Pain Completed patient instructed on techniques to control pain including Pharmacological measures and Non-Pharmacological measures; rest and positioning/elevation. Instruct on ongoing discharge plan Problem:Discharge Goal:Manage discharge planning Completed Ongoing Discharge plan: Discharge plan discussed with patient and caregiver including frequency and duration for home OT and plan for transition to: caregiver assistance. Instruct and educate on knowledge deficits Problem:OT Learning Assessment Goal:Demonstrate understanding of education Completed Education methods include: verbal cues. Patient/Caregiver require further education to improve knowledge and compliance with fall prevention strategies, orthopedic condition management, pain management, post surgical precautions, home safety and functional transfers. Transfer Training Problem:OT Functional Transfers Goal:Improved Functional Transfers Completed Instruct patient on safe transfers and proper techniques to perform to and from toilet cga and shower/tub with min assistance to shower stall with shower bench and suction grab bar, pt and spouse educated on technique to back up to shower stall with fww until heels meet shower base. step back into shower with use of walker and then sit, to exit step out with hands on walker coming out with with left le. Pt completed x2 with min/cga and cues for hand placement, spouse present as well. Pt will need review to improve overall safety Instruct on orthopedic precautions and weight bearing restrictions Problem:OT Orthopedic Post Surgical and/or Non Surgical Condition Goal:Manage Orthopedic Condition Completed Instruct patient on orthopedic precautions including Left posterior hip: no hip flexion >90 degrees cues for no twisting and no crossing of legs Instruct on management of edema Problem:OT Orthopedic Post Surgical and/or Non Surgical Condition Goal:Manage Orthopedic Condition Completed Instruct patient on management of edema including elevation of left above the level of the heart in supine or reclined to not break hip precautions [facility] Visit Details Visit Type -CLINICAL INVESTIGATOR ROUTINE Discipline -Physical Therapy Problems Problem Description Start Date Status Goals Interve ntions Medication Education Disciplines: Skilled Services 01/26/2024 Active 1 goal linked to scheduled/document ed intervention 1 goal intervention scheduled/document ed in this visit Sepsis Disciplines: Skilled Services 01/26/2024 Active 1 goal linked to scheduled/document ed intervention 1 goal intervention scheduled/document ed in this visit Physician Specific Parameters Disciplines: Skilled Services 01/26/2024 Active 1 goal linked to scheduled/document ed intervention 1 goal intervention scheduled/document ed in this visit Risk for Falls Disciplines: Skilled Services 01/26/2024 Active 1 goal linked to scheduled/document ed intervention 1 goal intervention scheduled/document ed in this visit Pain Disciplines: Skilled Services 01/26/2024 Active 1 goal linked to scheduled/document ed intervention 1 goal intervention scheduled/document ed in this visit Discharge Disciplines: Skilled Services 01/26/2024 Active 1 goal linked to scheduled/document ed intervention 1 goal intervention scheduled/document ed in this visit PT Impaired muscle performance and/or ROM Disciplines: PT 01/26/2024 Active 1 goal linked to scheduled/document ed intervention 1 goal intervention scheduled/document ed in this visit PT Impaired gait Disciplines: PT 01/26/2024 Active 1 goal linked to scheduled/document ed intervention 1 goal intervention scheduled/document ed in this visit PT Orthopedic Condition Disciplines: PT 01/26/2024 Active 1 goal linked to scheduled/document ed intervention 3 goal interventions scheduled/document ed in this visit PT Learning Assessment Disciplines: PT 01/26/2024 Active 1 goal linked to scheduled/document ed intervention 1 goal intervention scheduled/document ed in this visit Goals Goal Associated Problem Outcome Goal Met? Visit Notes Patient/caregiver will demonstrate ability to obtain, store, identify and administer ordered medications, keep accurate medication list in home, and adhere to medication schedule Description: Patient/caregiver will demonstrate ability to obtain, store, identify and administer ordered medications, keep accurate medication list in home, and adhere to medication schedule by 03/25/24. Medication Education No Patient/caregiver will be able to identify and report symptoms of sepsis Description: Patient/caregiver will be able to identify signs/symptoms of sepsis infection and will verbalize actions to take if suspected by 03/25/24. Sepsis No Patient to maintain parameters within physician-specified ranges throughout certification period Physician Specific Parameters No Manage Risk for falls Description: Patient/caregiver will verbalize knowledge of individualized fall prevention strategies by 03/25/24. Risk for Falls No Manage Pain Description: Patient/caregiver will verbalize knowledge and understanding of appropriate techniques to control pain, including non-pharmacological techniques. Patient will verbalize or demonstrate an acceptable level of pain as evidenced by a pain score of 0-2/10 and improvement in ability to perform activities of daily living to be achieved by 03/25/24. Pain No Manage discharge planning Description: Patient/caregiver will verbalize understanding of ongoing discharge plan provided related to disease management, arrangements for outpatient and/or community services, obtaining medications, supplies, and DME, as needed throughout certification period. Discharge No Improved Muscle Performance and/or ROM Description: LTG: Patient will demonstrate improved muscle performance to meet functional goals as evidenced by ability to tolerate 8 mins of standing activity, to be achieved by 02/16/24. LTG: Patient and/or caregiver will verbalize/demonstrate independence with home exercise program, to improve functional mobility, to be achieved by 02/16/24. PT Impaired muscle performance and/or ROM No Improved Gait Description: LTG: Patient will demonstrate improved gait ability as evidenced by ambulation 200 feet with front wheeled walker independently with AD, to return to safe household ambulation, in order to reach car in the driveway, to be achieved by 02/16/24. PT Impaired gait No Manage Orthopedic Condition Description: Improve patient and/or caregiver understanding of post surgical and/or non-surgical orthopedic intervention management as evidenced by patient and/or caregiver able to verbalize, demonstrate, and teach back instruction, to be achieved by 02/16/24. PT Orthopedic Condition No Demonstrate understanding of education Description: Patient and/or caregiver will understand educational instruction to be achieved by 02/16/24. PT Learning Assessment No Interventions Intervention Associated Problem/Goal Status Variance Visit Notes Medication Education Description: Evaluate/instruct patient/caregiver on obtaining, storing, identifying and administering ordered medications as well as keeping accurate medication list in the home and adhereing to medication schedule Problem:Medication Education Goal:Patient/caregive r will demonstrate ability to obtain, store, identify and administer ordered medications, keep accurate medication list in home, and adhere to medication schedule Completed Patient and Caregiver instructed on importance of keeping accurate medication list in home. Risk of Sepsis Description: Patient is at risk for sepsis. Monitor closely for s/s of sepsis. Problem:Sepsis Goal:Patient/caregive r will be able to identify and report symptoms of sepsis Completed SPO2 Description: Notify Dr. Beltran if pulse ox is <92% at rest. Problem:Physician Specific Parameters Goal:Patient to maintain parameters within physician-specified ranges throughout certification period Completed Instruct on individual fall risk factors and strategies to prevent falls and injuries caused by falls. Problem:Risk for Falls Goal:Manage Risk for falls Completed PT: Patient instructed on Managing Impaired Functional Mobility: Use assistive device(s): front wheeled walker Instruct on pain and instruct on strategies to control pain Problem:Pain Goal:Manage Pain Completed patient and caregiver instructed on techniques to control pain including Pharmacological measures and Non-Pharmacological measures; positioning/elevation and use of thermal modalities, apply ice to affected area for the following prescribed frequency: prn. Instruct on ongoing discharge plan Problem:Discharge Goal:Manage discharge planning Completed Ongoing Discharge plan: Discharge plan discussed with patient and caregiver including frequency and duration for home PT and plan for transition to: live independently at home without ongoing services. Physical Therapy Therapeutic Exercises Problem:PT Impaired muscle performance and/or ROM Goal:Improved Muscle Performance and/or ROM Completed patient instructed on strengthening and range of motion exercises including ankle pumps, quad and glut sets, hip abd and add, saq and heel slides. seated faq x's 10 each with visual and verbal cues for form . patient instructed to perform home exercise program twice a day which included above ex. Physical Therapy Gait Training Problem:PT Impaired gait Goal:Improved Gait Completed Gait training and instruction to patient on safe ambulation with front wheeled walker for 75 feet with stand by assist, with verbal cues for corrections of gait deviations including pacing and increased step length. Instruct on orthopedic precautions and weight bearing restrictions Description: Orthopedic precautions including left posterior hip: no hip flexion > 90 degrees, no hip abduction and no IR rotation of involved extermity. Weight bearing restrictions include: WBAT of involved extremity. Problem:PT Orthopedic Condition Goal:Manage Orthopedic Condition Completed patient instructed on orthopedic precautions. Instruct on management of edema Problem:PT Orthopedic Condition Goal:Manage Orthopedic Condition Completed Instruct patient and caregiver on management of edema including elevation of LLE above the level of the heart and ice. Instruct on self-management of post surgical and/or non-surgical orthopedic intervention Problem:PT Orthopedic Condition Goal:Manage Orthopedic Condition Completed patient instructed on signs and symptoms of infection, signs and symptoms of DVT/PE, instructed on when to call provider and instructed on when to call 911. Instruct and educate on knowledge deficits Problem:PT Learning Assessment Goal:Demonstrate understanding of education Completed patient verbalize and/or demonstrate understanding of physical therapy education including surgical precautions, pain management and home exercise program. Education methods include: verbal cues. Further education required to improve knowledge and compliance with home exercise program. [facility] Visit Details Visit Type -HOLGUIN ROUTINE Discipline -Occupational Therapy Problems Problem Description Start Date Status Goals Interve ntions Medication Education Disciplines: Skilled Services 01/26/2024 Active 1 goal linked to scheduled/document ed intervention 1 goal intervention scheduled/documente d in this visit Sepsis Disciplines: Skilled Services 01/26/2024 Active 1 goal linked to scheduled/document ed intervention 1 goal intervention scheduled/documente d in this visit Physician Specific Parameters Disciplines: Skilled Services 01/26/2024 Active 1 goal linked to scheduled/document ed intervention 2 goal interventions scheduled/documente d in this visit Risk for Falls Disciplines: Skilled Services 01/26/2024 Active 1 goal linked to scheduled/document ed intervention 1 goal intervention scheduled/documente d in this visit Pain Disciplines: Skilled Services 01/26/2024 Active 1 goal linked to scheduled/document ed intervention 1 goal intervention scheduled/documente d in this visit Discharge Disciplines: Skilled Services 01/26/2024 Active 1 goal linked to scheduled/document ed intervention 1 goal intervention scheduled/documente d in this visit OT Learning Assessment Disciplines: OT 01/31/2024 Active 1 goal linked to scheduled/document ed intervention 1 goal intervention scheduled/documente d in this visit OT Upper Body Strength and/or ROM Disciplines: OT 01/31/2024 Active 1 goal linked to scheduled/document ed intervention 1 goal intervention scheduled/documente d in this visit OT Functional Transfers Disciplines: OT 01/31/2024 Active 1 goal linked to scheduled/document ed intervention 1 goal intervention scheduled/documente d in this visit OT Orthopedic Post Surgical and/or Non Surgical Condition Disciplines: OT 01/31/2024 Active 1 goal linked to scheduled/document ed intervention 2 goal interventions scheduled/documente d in this visit Goals Goal Associated Problem Outcome Goal Met? Visit Notes Patient/caregiver will demonstrate ability to obtain, store, identify and administer ordered medications, keep accurate medication list in home, and adhere to medication schedule Description: Patient/caregiver will demonstrate ability to obtain, store, identify and administer ordered medications, keep accurate medication list in home, and adhere to medication schedule by 03/25/24. Medication Education No Patient/caregiver will be able to identify and report symptoms of sepsis Description: Patient/caregiver will be able to identify signs/symptoms of sepsis infection and will verbalize actions to take if suspected by 03/25/24. Sepsis No Patient to maintain parameters within physician-specified ranges throughout certification period Physician Specific Parameters No Manage Risk for falls Description: Patient/caregiver will verbalize knowledge of individualized fall prevention strategies by 03/25/24. Risk for Falls No Manage Pain Description: Patient/caregiver will verbalize knowledge and understanding of appropriate techniques to control pain, including non-pharmacological techniques. Patient will verbalize or demonstrate an acceptable level of pain as evidenced by a pain score of 0-2/10 and improvement in ability to perform activities of daily living to be achieved by 03/25/24. Pain No Manage discharge planning Description: Patient/caregiver will verbalize understanding of ongoing discharge plan provided related to disease management, arrangements for outpatient and/or community services, obtaining medications, supplies, and DME, as needed throughout certification period. Discharge No Demonstrate understanding of education Description: Patient and/or caregiver will understand educational instruction to be achieved by 02/16/24. OT Learning Assessment No Improved Strength and/or ROM Description: patient will verbalize/demonstrate independence with home exercise program, to improve functional performance, to be achieved by 02/16/24. OT Upper Body Strength and/or ROM No Improved Functional Transfers Description: patient will demonstrate safe transfers to/from toilet indep and shower/tub with supervision assistance and minimal verbal cues with use of DME to be achieved by 02/16/24. OT Functional Transfers No Manage Orthopedic Condition Description: Improve patient and/or caregiver understanding of post surgical and/or non-surgical orthopedic intervention management as evidenced by patient and/or caregiver able to verbalize, demonstrate, and teach back instruction with a minimum of two strategies. To be achieved by 02/16/24. OT Orthopedic Post Surgical and/or Non Surgical Condition No Interventions Intervention Associated Problem/Goal Status Variance Visit Notes Medication Education Description: Evaluate/instruct patient/caregiver on obtaining, storing, identifying and administering ordered medications as well as keeping accurate medication list in the home and adhereing to medication schedule Problem:Medication Education Goal:Patient/caregive r will demonstrate ability to obtain, store, identify and administer ordered medications, keep accurate medication list in home, and adhere to medication schedule Completed Patient and Caregiver instructed on importance of keeping accurate medication list in home, need to take up-to-date medication list to all medical provider appointments and adhering to medication schedule. Risk of Sepsis Description: Patient is at risk for sepsis. Monitor closely for s/s of sepsis. Problem:Sepsis Goal:Patient/caregive r will be able to identify and report symptoms of sepsis Completed Blood Sugar Description: Notify Dr. Beltran if blood sugar 200 for more than 2 consecutive days. Problem:Physician Specific Parameters Goal:Patient to maintain parameters within physician-specified ranges throughout certification period Completed SPO2 Description: Notify Dr. Beltran if pulse ox is <92% at rest. Problem:Physician Specific Parameters Goal:Patient to maintain parameters within physician-specified ranges throughout certification period Completed Instruct on individual fall risk factors and strategies to prevent falls and injuries caused by falls. Problem:Risk for Falls Goal:Manage Risk for falls Completed OT: Patient and Caregiver instructed on Eliminating Environmental Hazards: Keep pathways clear, Keep rooms and walkways well lit, Wear supportive shoes or non-skid socks and Keep frequently used items within reach Managing Pain Instruct on pain and instruct on strategies to control pain Problem:Pain Goal:Manage Pain Completed patient and caregiver instructed on techniques to control pain including Pharmacological measures and Non-Pharmacological measures; positioning/elevation, mobility/therapeutic exercise and distraction. Instruct on ongoing discharge plan Problem:Discharge Goal:Manage discharge planning Completed Ongoing Discharge plan: Discharge plan discussed with patient and caregiver including frequency and duration for home OT and plan for transition to: caregiver assistance. Instruct and educate on knowledge deficits Problem:OT Learning Assessment Goal:Demonstrate understanding of education Completed Education methods include: verbal cues. Patient/Caregiver require further education to improve knowledge and compliance with fall prevention strategies, orthopedic condition management, pain management, post surgical precautions, home safety, infection control precautions, functional transfers, home exercise program, endurance training and discharge planning. Therapeutic Exercises Problem:OT Upper Body Strength and/or ROM Goal:Improved Strength and/or ROM Completed Instructed patient/caregiver on therapeutic exercise including: upper body exercises: Seated B UE AROM with shoulder flexion/extension, shoulder abduction/adduction, bicep flexion/extension, supination/pronation, tricep flexion/extension, shoulder internal/external rotation, over head press, chest press, chest pulls. Provided visual, written and verbal cues for pacing and proper technique. Patient performed 1 set (s) of 10 reps this date and fatigues with performance to increase overall strength/activity tolerance for increased performance with daily functional tasks. Instructed patient/caregiver for HEP to be performed 1-2 sets(s) of 10 reps, daily. HEP program developed, issued and reviewed. Transfer Training Problem:OT Functional Transfers Goal:Improved Functional Transfers Completed Instruct patient and caregiver on safe transfers and proper techniques including hand/foot placement with backing into shower stall to perform to and from shower stall and toilet with Supervision assistance and verbal cues for safety/technique. education and training on the following adaptive equipment/durable medical equipment:grab bar(s), walker, raised toilet seat and shower chair. Pt. demo fair- stand balance, no LOB. Pt. requires Supervision for safety to decrease fall risk. Instruct on orthopedic precautions and weight bearing restrictions Problem:OT Orthopedic Post Surgical and/or Non Surgical Condition Goal:Manage Orthopedic Condition Completed Instruct patient and caregiver on orthopedic precautions including Left posterior hip: no hip flexion >90 degrees, no crossing legs, no twisting. Instruct on management of edema Problem:OT Orthopedic Post Surgical and/or Non Surgical Condition Goal:Manage Orthopedic Condition Completed Instruct patient and caregiver on management of edema including elevation of L LE above the level of the heart, ice, medication adherence strategies and benefits of activity. [facility] Visit Details Visit Type -HOLGUIN ROUTINE Discipline -Occupational Therapy Problems Problem Description Start Date Status Goals Interve ntions Medication Education Disciplines: Skilled Services 01/26/2024 Active 1 goal linked to scheduled/document ed intervention 1 goal intervention scheduled/documente d in this visit Sepsis Disciplines: Skilled Services 01/26/2024 Active 1 goal linked to scheduled/document ed intervention 1 goal intervention scheduled/documente d in this visit Physician Specific Parameters Disciplines: Skilled Services 01/26/2024 Active 1 goal linked to scheduled/document ed intervention 2 goal interventions scheduled/documente d in this visit Risk for Falls Disciplines: Skilled Services 01/26/2024 Active 1 goal linked to scheduled/document ed intervention 1 goal intervention scheduled/documente d in this visit Pain Disciplines: Skilled Services 01/26/2024 Active 1 goal linked to scheduled/document ed intervention 1 goal intervention scheduled/documente d in this visit Discharge Disciplines: Skilled Services 01/26/2024 Active 1 goal linked to scheduled/document ed intervention 1 goal intervention scheduled/documente d in this visit OT Learning Assessment Disciplines: OT 01/31/2024 Active 1 goal linked to scheduled/document ed intervention 1 goal intervention scheduled/documente d in this visit OT Upper Body Strength and/or ROM Disciplines: OT 01/31/2024 Active 1 goal linked to scheduled/document ed intervention 1 goal intervention scheduled/documente d in this visit OT Balance Disciplines: OT 01/31/2024 Active 1 goal linked to scheduled/document ed intervention 1 goal intervention scheduled/documente d in this visit OT Orthopedic Post Surgical and/or Non Surgical Condition Disciplines: OT 01/31/2024 Active 1 goal linked to scheduled/document ed intervention 2 goal interventions scheduled/documente d in this visit Goals Goal Associated Problem Outcome Goal Met? Visit Notes Patient/caregiver will demonstrate ability to obtain, store, identify and administer ordered medications, keep accurate medication list in home, and adhere to medication schedule Description: Patient/caregiver will demonstrate ability to obtain, store, identify and administer ordered medications, keep accurate medication list in home, and adhere to medication schedule by 03/25/24. Medication Education No Patient/caregiver will be able to identify and report symptoms of sepsis Description: Patient/caregiver will be able to identify signs/symptoms of sepsis infection and will verbalize actions to take if suspected by 03/25/24. Sepsis No Patient to maintain parameters within physician-specified ranges throughout certification period Physician Specific Parameters No Manage Risk for falls Description: Patient/caregiver will verbalize knowledge of individualized fall prevention strategies by 03/25/24. Risk for Falls No Manage Pain Description: Patient/caregiver will verbalize knowledge and understanding of appropriate techniques to control pain, including non-pharmacological techniques. Patient will verbalize or demonstrate an acceptable level of pain as evidenced by a pain score of 0-2/10 and improvement in ability to perform activities of daily living to be achieved by 03/25/24. Pain No Manage discharge planning Description: Patient/caregiver will verbalize understanding of ongoing discharge plan provided related to disease management, arrangements for outpatient and/or community services, obtaining medications, supplies, and DME, as needed throughout certification period. Discharge No Demonstrate understanding of education Description: Patient and/or caregiver will understand educational instruction to be achieved by 02/16/24. OT Learning Assessment No Improved Strength and/or ROM Description: patient will verbalize/demonstrate independence with home exercise program, to improve functional performance, to be achieved by 02/16/24. OT Upper Body Strength and/or ROM No Improved Balance Description: Patient will demonstrate improved standing balance to meet functional goals as evidenced by standing balance at fair + during functional adl or ue task with standint tolerance x 4 min to be achieved by 02/16/24. OT Balance No Manage Orthopedic Condition Description: Improve patient and/or caregiver understanding of post surgical and/or non-surgical orthopedic intervention management as evidenced by patient and/or caregiver able to verbalize, demonstrate, and teach back instruction with a minimum of two strategies. To be achieved by 02/16/24. OT Orthopedic Post Surgical and/or Non Surgical Condition No Interventions Intervention Associated Problem/Goal Status Variance Visit Notes Medication Education Description: Evaluate/instruct patient/caregiver on obtaining, storing, identifying and administering ordered medications as well as keeping accurate medication list in the home and adhereing to medication schedule Problem:Medication Education Goal:Patient/caregive r will demonstrate ability to obtain, store, identify and administer ordered medications, keep accurate medication list in home, and adhere to medication schedule Completed Caregiver instructed on importance of keeping accurate medication list in home, need to take up-to-date medication list to all medical provider appointments and adhering to medication schedule. Risk of Sepsis Description: Patient is at risk for sepsis. Monitor closely for s/s of sepsis. Problem:Sepsis Goal:Patient/caregive r will be able to identify and report symptoms of sepsis Completed Blood Sugar Description: Notify Dr. Beltran if blood sugar 200 for more than 2 consecutive days. Problem:Physician Specific Parameters Goal:Patient to maintain parameters within physician-specified ranges throughout certification period Completed SPO2 Description: Notify Dr. Beltran if pulse ox is <92% at rest. Problem:Physician Specific Parameters Goal:Patient to maintain parameters within physician-specified ranges throughout certification period Completed Instruct on individual fall risk factors and strategies to prevent falls and injuries caused by falls. Problem:Risk for Falls Goal:Manage Risk for falls Completed OT: Patient and Caregiver instructed on Eliminating Environmental Hazards: Keep pathways clear, Keep rooms and walkways well lit, Wear supportive shoes or non-skid socks and Keep frequently used items within reach Managing Pain Instruct on pain and instruct on strategies to control pain Problem:Pain Goal:Manage Pain Completed patient and caregiver instructed on techniques to control pain including Pharmacological measures and Non-Pharmacological measures; rest, positioning/elevation and mobility/therapeutic exercise. Instruct on ongoing discharge plan Problem:Discharge Goal:Manage discharge planning Completed Ongoing Discharge plan: Discharge plan discussed with patient and caregiver including frequency and duration for home OT and plan for transition to: caregiver assistance. Instruct and educate on knowledge deficits Problem:OT Learning Assessment Goal:Demonstrate understanding of education Completed Education methods include: verbal cues. Patient/Caregiver require further education to improve knowledge and compliance with fall prevention strategies, orthopedic condition management, pain management, post surgical precautions, balance training, home safety, infection control precautions, home exercise program, endurance training and discharge planning. Therapeutic Exercises Problem:OT Upper Body Strength and/or ROM Goal:Improved Strength and/or ROM Completed Instructed patient/caregiver on therapeutic exercise including: upper body exercises: Standing B UE AROM with shoulder flexion/extension, shoulder abduction/adduction, bicep flexion/extension, supination/pronation, tricep flexion/extension, shoulder internal/external rotation, over head press, chest press, chest pulls. Provided visual, written and verbal cues for pacing and proper technique. Patient performed 1 set (s) of 10 reps this date. Pt. required Supervision for safety unsupported with fair+ stand balance, Pt. demo an 8 minute standing tolerance. Educated Pt. to increase reps/sets as tolerated and to add light resistance as tolerated to increase overall strength/activity tolerance for daily functional tasks. Instructed patient/caregiver for HEP to be performed 1-2 sets(s) of 10 reps, daily. HEP program reviewed. Balance Training Problem:OT Balance Goal:Improved Balance Completed Pt. demo fair+ stand balance unsupported during standing HEP with Supervision for safety. Pt. demo a 8 minute standing tolerance for increased overall strength/activity tolerance for increased performance with daily functional tasks with decreased fall risk. Instruct on orthopedic precautions and weight bearing restrictions Problem:OT Orthopedic Post Surgical and/or Non Surgical Condition Goal:Manage Orthopedic Condition Completed Instruct patient and caregiver on orthopedic precautions including Left posterior hip: no hip flexion >90 degrees and no twisting or pivoting. Instruct on management of edema Problem:OT Orthopedic Post Surgical and/or Non Surgical Condition Goal:Manage Orthopedic Condition Completed Instruct patient and caregiver on management of edema including elevation of L LE above the level of the heart, ice, medication adherence strategies and benefits of activity. documented in this encounter [facility] Plan of care note* Visit Details Visit Type -CLINICAL INVESTIGATOR ROUTINE Discipline -Physical Therapy Problems Problem Description Start Date Status Goals Interve ntions Medication Education Disciplines: Skilled Services 01/26/2024 Active 1 goal linked to scheduled/document ed intervention 1 goal intervention scheduled/document ed in this visit Sepsis Disciplines: Skilled Services 01/26/2024 Active 1 goal linked to scheduled/document ed intervention 1 goal intervention scheduled/document ed in this visit Physician Specific Parameters Disciplines: Skilled Services 01/26/2024 Active 1 goal linked to scheduled/document ed intervention 2 goal interventions scheduled/document ed in this visit Risk for Falls Disciplines: Skilled Services 01/26/2024 Active 1 goal linked to scheduled/document ed intervention 1 goal intervention scheduled/document ed in this visit Pain Disciplines: Skilled Services 01/26/2024 Active 1 goal linked to scheduled/document ed intervention 1 goal intervention scheduled/document ed in this visit Discharge Disciplines: Skilled Services 01/26/2024 Active 1 goal linked to scheduled/document ed intervention 1 goal intervention scheduled/document ed in this visit PT Impaired muscle performance and/or ROM Disciplines: PT 01/26/2024 Active 1 goal linked to scheduled/document ed intervention 1 goal intervention scheduled/document ed in this visit PT Impaired mobility Disciplines: PT 01/26/2024 Active 2 goals linked to scheduled/document ed interventions 2 goal interventions scheduled/document ed in this visit PT Impaired gait Disciplines: PT 01/26/2024 Active 2 goals linked to scheduled/document ed interventions 2 goal interventions scheduled/document ed in this visit PT Impaired balance Disciplines: PT 01/26/2024 Active 1 goal linked to scheduled/document ed intervention 1 goal intervention scheduled/document ed in this visit PT Orthopedic Condition Disciplines: PT 01/26/2024 Active 1 goal linked to scheduled/document ed intervention 1 goal intervention scheduled/document ed in this visit PT Learning Assessment Disciplines: PT 01/26/2024 Active 1 goal linked to scheduled/document ed intervention 1 goal intervention scheduled/document ed in this visit Goals Goal Associated Problem Outcome Goal Met? Visit Notes Patient/caregiver will demonstrate ability to obtain, store, identify and administer ordered medications, keep accurate medication list in home, and adhere to medication schedule Description: Patient/caregiver will demonstrate ability to obtain, store, identify and administer ordered medications, keep accurate medication list in home, and adhere to medication schedule by 03/25/24. Medication Education No Patient/caregiver will be able to identify and report symptoms of sepsis Description: Patient/caregiver will be able to identify signs/symptoms of sepsis infection and will verbalize actions to take if suspected by 03/25/24. Sepsis No Patient to maintain parameters within physician-specified ranges throughout certification period Physician Specific Parameters No Manage Risk for falls Description: Patient/caregiver will verbalize knowledge of individualized fall prevention strategies by 03/25/24. Risk for Falls No Manage Pain Description: Patient/caregiver will verbalize knowledge and understanding of appropriate techniques to control pain, including non-pharmacological techniques. Patient will verbalize or demonstrate an acceptable level of pain as evidenced by a pain score of 0-2/10 and improvement in ability to perform activities of daily living to be achieved by 03/25/24. Pain No Manage discharge planning Description: Patient/caregiver will verbalize understanding of ongoing discharge plan provided related to disease management, arrangements for outpatient and/or community services, obtaining medications, supplies, and DME, as needed throughout certification period. Discharge No Improved Muscle Performance and/or ROM Description: LTG: Patient will demonstrate improved muscle performance to meet functional goals as evidenced by ability to tolerate 8 mins of standing activity, to be achieved by 02/16/24. LTG: Patient and/or caregiver will verbalize/demonstrate independence with home exercise program, to improve functional mobility, to be achieved by 02/16/24. PT Impaired muscle performance and/or ROM No Improved Transfers Description: LTG: Patient will demonstrate safe transfers to/from bed, chair and toilet independently with AD, to be achieved by 02/16/24. PT Impaired mobility No Improved Bed Mobility Description: STG: Patient will demonstrate improved ability to position self independently in lift chair to be achieved by 02/09/24. PT Impaired mobility No Improved Stair Climbing Description: LTG: Patient will demonstrate improved stair negotiation as evidenced by ascend/descend 3 steps without railing with supervision, to safely exit home, to be achieved by 02/16/24. PT Impaired gait No Improved Gait Description: LTG: Patient will demonstrate improved gait ability as evidenced by ambulation 200 feet with front wheeled walker independently with AD, to return to safe household ambulation, in order to reach car in the driveway, to be achieved by 02/16/24. PT Impaired gait No Improved Balance Description: LTG: Patient will demonstrate improved standing balance to meet functional goals as evidenced by no falls during home P.T. to be achieved by 02/16/24. PT Impaired balance No Manage Orthopedic Condition Description: Improve patient and/or caregiver understanding of post surgical and/or non-surgical orthopedic intervention management as evidenced by patient and/or caregiver able to verbalize, demonstrate, and teach back instruction, to be achieved by 02/16/24. PT Orthopedic Condition No Demonstrate understanding of education Description: Patient and/or caregiver will understand educational instruction to be achieved by 02/16/24. PT Learning Assessment No Interventions Intervention Associated Problem/Goal Status Variance Visit Notes Medication Education Description: Evaluate/instruct patient/caregiver on obtaining, storing, identifying and administering ordered medications as well as keeping accurate medication list in the home and adhereing to medication schedule Problem:Medication Education Goal:Patient/caregive r will demonstrate ability to obtain, store, identify and administer ordered medications, keep accurate medication list in home, and adhere to medication schedule Completed Patient and Caregiver instructed on importance of keeping accurate medication list in home. Risk of Sepsis Description: Patient is at risk for sepsis. Monitor closely for s/s of sepsis. Problem:Sepsis Goal:Patient/caregive r will be able to identify and report symptoms of sepsis Completed Blood Sugar Description: Notify Dr. Beltran if blood sugar 200 for more than 2 consecutive days. Problem:Physician Specific Parameters Goal:Patient to maintain parameters within physician-specified ranges throughout certification period Completed SPO2 Description: Notify Dr. Beltran if pulse ox is <92% at rest. Problem:Physician Specific Parameters Goal:Patient to maintain parameters within physician-specified ranges throughout certification period Completed Instruct on individual fall risk factors and strategies to prevent falls and injuries caused by falls. Problem:Risk for Falls Goal:Manage Risk for falls Completed PT: Patient and Caregiver instructed on Managing Impaired Functional Mobility: Use assistive device(s): front wheeled walker and Caregiver to provide assist with: cane Ambulation and Steps Instruct on pain and instruct on strategies to control pain Problem:Pain Goal:Manage Pain Completed patient and caregiver instructed on techniques to control pain including Non-Pharmacological measures; positioning/elevation and use of thermal modalities, apply ice to affected area for the following prescribed frequency: prn. Instruct on ongoing discharge plan Problem:Discharge Goal:Manage discharge planning Completed Ongoing Discharge plan: Discharge plan discussed with patient and caregiver including frequency and duration for home PT and plan for transition to IND w/ HEP Physical Therapy Therapeutic Exercises Problem:PT Impaired muscle performance and/or ROM Goal:Improved Muscle Performance and/or ROM Completed patient instructed on strengthening exercises including seated faq, standing heel raises, hip abd, hams curls x's 10 each with visual, written and verbal cues for correct form. patient instructed to perform home exercise program daily which included above ex and supine ex 2x's day. Physical Therapy Transfer Training Problem:PT Impaired mobility Goal:Improved Transfers Completed Transfer training and instruction to patient and caregiver on safe transfers to and from car with stand by assist and verbal cues for correct technique. Physical Therapy Bed Mobility Training Problem:PT Impaired mobility Goal:Improved Bed Mobility Completed Bed mobility training and instruction to patient and caregiver, including supine<>sit with supervision and verbal cues for safety. Physical Therapy Stair Training Problem:PT Impaired gait Goal:Improved Stair Climbing Completed Stair training and instruction to patient and caregiver on safe stair climbing, ascend/descend 3 steps, with railing with stand by assist and verbal cues for safety. patient hold 1 rail w/ both hands . Physical Therapy Gait Training Problem:PT Impaired gait Goal:Improved Gait Completed Gait training and instruction to patient and caregiver on safe ambulation with front wheeled walker for 50 feet and cane x's 20 feet with supervision and stand by assist, with verbal cues for corrections of gait deviations including safety. Physical Therapy Balance Training Problem:PT Impaired balance Goal:Improved Balance Completed Developed, implemented, and instructed patient on standing balance exercises including standing exercises and cane training. Instruct on self-management of post surgical and/or non-surgical orthopedic intervention Problem:PT Orthopedic Condition Goal:Manage Orthopedic Condition Completed patient instructed on signs and symptoms of infection, signs and symptoms of DVT/PE, instructed on when to call provider and instructed on when to call 911. Instruct and educate on knowledge deficits Problem:PT Learning Assessment Goal:Demonstrate understanding of education Completed patient and caregiver verbalize and/or demonstrate understanding of physical therapy education including surgical precautions, pain management, functional activity and home exercise program. Education methods include: verbal cues. Further education required to improve knowledge and compliance with home exercise program. documented in this encounter [facility]'s home Plan of care note* Visit Details Visit Type -CLINICAL INVESTIGATOR ROUTINE Discipline -Physical Therapy Problems Problem Description Start Date Status Goals Interve ntions Medication Education Disciplines: Skilled Services 01/26/2024 Active 1 goal linked to scheduled/document ed intervention 1 goal intervention scheduled/document ed in this visit Sepsis Disciplines: Skilled Services 01/26/2024 Active 1 goal linked to scheduled/document ed intervention 1 goal intervention scheduled/document ed in this visit Physician Specific Parameters Disciplines: Skilled Services 01/26/2024 Active 1 goal linked to scheduled/document ed intervention 2 goal interventions scheduled/document ed in this visit Pain Disciplines: Skilled Services 01/26/2024 Active 1 goal linked to scheduled/document ed intervention 1 goal intervention scheduled/document ed in this visit Discharge Disciplines: Skilled Services 01/26/2024 Active 1 goal linked to scheduled/document ed intervention 2 goal interventions scheduled/document ed in this visit PT Impaired muscle performance and/or ROM Disciplines: PT 01/26/2024 Active 1 goal linked to scheduled/document ed intervention 1 goal intervention scheduled/document ed in this visit PT Impaired gait Disciplines: PT 01/26/2024 Active 2 goals linked to scheduled/document ed interventions 2 goal interventions scheduled/document ed in this visit PT Orthopedic Condition Disciplines: PT 01/26/2024 Active 1 goal linked to scheduled/document ed intervention 2 goal interventions scheduled/document ed in this visit PT Learning Assessment Disciplines: PT 01/26/2024 Active 1 goal linked to scheduled/document ed intervention 1 goal intervention scheduled/document ed in this visit Goals Goal Associated Problem Outcome Goal Met? Visit Notes Patient/caregiver will demonstrate ability to obtain, store, identify and administer ordered medications, keep accurate medication list in home, and adhere to medication schedule Description: Patient/caregiver will demonstrate ability to obtain, store, identify and administer ordered medications, keep accurate medication list in home, and adhere to medication schedule by 03/25/24. Medication Education No Patient/caregiver will be able to identify and report symptoms of sepsis Description: Patient/caregiver will be able to identify signs/symptoms of sepsis infection and will verbalize actions to take if suspected by 03/25/24. Sepsis No Patient to maintain parameters within physician-specified ranges throughout certification period Physician Specific Parameters No Manage Pain Description: Patient/caregiver will verbalize knowledge and understanding of appropriate techniques to control pain, including non-pharmacological techniques. Patient will verbalize or demonstrate an acceptable level of pain as evidenced by a pain score of 0-2/10 and improvement in ability to perform activities of daily living to be achieved by 03/25/24. Pain No Manage discharge planning Description: Patient/caregiver will verbalize understanding of ongoing discharge plan provided related to disease management, arrangements for outpatient and/or community services, obtaining medications, supplies, and DME, as needed throughout certification period. Discharge No Improved Muscle Performance and/or ROM Description: LTG: Patient will demonstrate improved muscle performance to meet functional goals as evidenced by ability to tolerate 8 mins of standing activity, to be achieved by 02/16/24. LTG: Patient and/or caregiver will verbalize/demonstrate independence with home exercise program, to improve functional mobility, to be achieved by 02/16/24. PT Impaired muscle performance and/or ROM No Improved Stair Climbing Description: LTG: Patient will demonstrate improved stair negotiation as evidenced by ascend/descend 3 steps without railing with supervision, to safely exit home, to be achieved by 02/16/24. PT Impaired gait No Improved Gait Description: LTG: Patient will demonstrate improved gait ability as evidenced by ambulation 200 feet with front wheeled walker independently with AD, to return to safe household ambulation, in order to reach car in the driveway, to be achieved by 02/16/24. PT Impaired gait No Manage Orthopedic Condition Description: Improve patient and/or caregiver understanding of post surgical and/or non-surgical orthopedic intervention management as evidenced by patient and/or caregiver able to verbalize, demonstrate, and teach back instruction, to be achieved by 02/16/24. PT Orthopedic Condition No Demonstrate understanding of education Description: Patient and/or caregiver will understand educational instruction to be achieved by 02/16/24. PT Learning Assessment No Interventions Intervention Associated Problem/Goal Status Variance Visit Notes Medication Education Description: Evaluate/instruct patient/caregiver on obtaining, storing, identifying and administering ordered medications as well as keeping accurate medication list in the home and adhereing to medication schedule Problem:Medication Education Goal:Patient/caregive r will demonstrate ability to obtain, store, identify and administer ordered medications, keep accurate medication list in home, and adhere to medication schedule Completed Patient and Caregiver instructed on importance of keeping accurate medication list in home. Risk of Sepsis Description: Patient is at risk for sepsis. Monitor closely for s/s of sepsis. Problem:Sepsis Goal:Patient/caregive r will be able to identify and report symptoms of sepsis Completed Blood Sugar Description: Notify Dr. Beltran if blood sugar 200 for more than 2 consecutive days. Problem:Physician Specific Parameters Goal:Patient to maintain parameters within physician-specified ranges throughout certification period Completed SPO2 Description: Notify Dr. Beltran if pulse ox is <92% at rest. Problem:Physician Specific Parameters Goal:Patient to maintain parameters within physician-specified ranges throughout certification period Completed Instruct on pain and instruct on strategies to control pain Problem:Pain Goal:Manage Pain Completed patient and caregiver instructed on techniques to control pain including Pharmacological measures and Non-Pharmacological measures; positioning/elevation and use of thermal modalities, apply ice to affected area for the following prescribed frequency: prn. Deliver [facility] Problem:Discharge Goal:Manage discharge planning Completed Delivered [facility] on 01/11/24 for discharge date of 01/13/24. Instruct on ongoing discharge plan Problem:Discharge Goal:Manage discharge planning Completed Ongoing Discharge plan: Discharge plan discussed with patient and caregiver including frequency and duration for home PT and plan for transition to: live independently at home without ongoing services. Physical Therapy Therapeutic Exercises Problem:PT Impaired muscle performance and/or ROM Goal:Improved Muscle Performance and/or ROM Completed patient and caregiver instructed on strengthening exercises including sydni standing heel raises, hip abd, flexion hams curls and 1/4 squats x's 10 each. seated faq x's 10 each with visual, written and verbal cues for posture and progressions. patient and caregiver instructed to perform home exercise program twice a day which included above ex. Physical Therapy Stair Training Problem:PT Impaired gait Goal:Improved Stair Climbing Completed Stair training and instruction to patient and caregiver on safe stair climbing, ascend/descend 1 step to deck without railing and with ww with stand by assist and verbal cues for correct technique. Physical Therapy Gait Training Problem:PT Impaired gait Goal:Improved Gait Completed Gait training and instruction to patient and caregiver on safe ambulation with single point cane for 2x's 50 feet with supervision, with verbal cues for corrections of gait deviations including safety. Instruct on orthopedic precautions and weight bearing restrictions Description: Orthopedic precautions including left posterior hip: no hip flexion > 90 degrees, no hip abduction and no IR rotation of involved extermity. Weight bearing restrictions include: WBAT of involved extremity. Problem:PT Orthopedic Condition Goal:Manage Orthopedic Condition Completed patient and caregiver instructed on orthopedic precautions. Instruct on self-management of post surgical and/or non-surgical orthopedic intervention Problem:PT Orthopedic Condition Goal:Manage Orthopedic Condition Completed patient and caregiver instructed on signs and symptoms of infection, signs and symptoms of DVT/PE, instructed on when to call provider and instructed on when to call 911. Instruct and educate on knowledge deficits Problem:PT Learning Assessment Goal:Demonstrate understanding of education Completed patient and caregiver verbalize and/or demonstrate understanding of physical therapy education including surgical precautions and home exercise program. Education methods include: verbal cues, written instructions and visual cues. Further education required to improve knowledge and compliance with home exercise program[facility] Visit Details Visit Type -OT DISC DC W VIS IT Discipline -Occupational Therapy Problems Problem Description Start Date Status Goals Interve ntions Medication Education Disciplines: Skilled Services 01/26/2024 Resolved on 02/14/2024 1 goal linked to scheduled/documen jose luis intervention 1 goal intervention scheduled/document ed in this visit Sepsis Disciplines: Skilled Services 01/26/2024 Resolved on 02/14/2024 1 goal linked to scheduled/documen jose luis intervention 1 goal intervention scheduled/document ed in this visit Physician Specific Parameters Disciplines: Skilled Services 01/26/2024 Resolved on 02/14/2024 1 goal linked to scheduled/documen jose luis intervention 2 goal interventions scheduled/document ed in this visit Risk for Falls Disciplines: Skilled Services 01/26/2024 Resolved on 02/14/2024 1 goal linked to scheduled/documen jose luis intervention 1 goal intervention scheduled/document ed in this visit Pain Disciplines: Skilled Services 01/26/2024 Resolved on 02/14/2024 1 goal linked to scheduled/documen jose luis intervention 1 goal intervention scheduled/document ed in this visit Discharge Disciplines: Skilled Services 01/26/2024 Resolved on 02/14/2024 1 goal linked to scheduled/documen jose luis intervention 1 goal intervention scheduled/document ed in this visit OT Learning Assessment Disciplines: OT 01/31/2024 Resolved on 02/14/2024 1 goal linked to scheduled/documen jose luis intervention 1 goal intervention scheduled/document ed in this visit OT Upper Body Strength and/or ROM Disciplines: OT 01/31/2024 Resolved on 02/14/2024 1 goal linked to scheduled/documen jose luis intervention 1 goal intervention scheduled/document ed in this visit OT Functional Transfers Disciplines: OT 01/31/2024 Resolved on 02/14/2024 1 goal linked to scheduled/documen jose luis intervention 1 goal intervention scheduled/document ed in this visit OT Balance Disciplines: OT 01/31/2024 Resolved on 02/14/2024 1 goal linked to scheduled/documen jose luis intervention 1 goal intervention scheduled/document ed in this visit OT Orthopedic Post Surgical and/or Non Surgical Condition Disciplines: OT 01/31/2024 Resolved on 02/14/2024 1 goal linked to scheduled/documen jose luis intervention 2 goal interventions scheduled/document ed in this visit Goals Goal Associated Problem Outcome Goal Met? Visit Notes Patient/caregiver will demonstrate ability to obtain, store, identify and administer ordered medications, keep accurate medication list in home, and adhere to medication schedule Description: Patient/caregiver will demonstrate ability to obtain, store, identify and administer ordered medications, keep accurate medication list in home, and adhere to medication schedule by 03/25/24. Medication Education No Patient/caregiver will be able to identify and report symptoms of sepsis Description: Patient/caregiver will be able to identify signs/symptoms of sepsis infection and will verbalize actions to take if suspected by 03/25/24. Sepsis No Patient to maintain parameters within physician-specified ranges throughout certification period Physician Specific Parameters No Manage Risk for falls Description: Patient/caregiver will verbalize knowledge of individualized fall prevention strategies by 03/25/24. Risk for Falls No Manage Pain Description: Patient/caregiver will verbalize knowledge and understanding of appropriate techniques to control pain, including non-pharmacological techniques. Patient will verbalize or demonstrate an acceptable level of pain as evidenced by a pain score of 0-2/10 and improvement in ability to perform activities of daily living to be achieved by 03/25/24. Pain No Manage discharge planning Description: Patient/caregiver will verbalize understanding of ongoing discharge plan provided related to disease management, arrangements for outpatient and/or community services, obtaining medications, supplies, and DME, as needed throughout certification period. Discharge No Demonstrate understanding of education Description: Patient and/or caregiver will understand educational instruction to be achieved by 02/16/24. OT Learning Assessment Completed Yes Improved Strength and/or ROM Description: patient will verbalize/demonstrate independence with home exercise program, to improve functional performance, to be achieved by 02/16/24. OT Upper Body Strength and/or ROM Completed Yes Improved Functional Transfers Description: patient will demonstrate safe transfers to/from toilet indep and shower/tub with supervision assistance and minimal verbal cues with use of DME to be achieved by 02/16/24. OT Functional Transfers Completed Yes Improved Balance Description: Patient will demonstrate improved standing balance to meet functional goals as evidenced by standing balance at fair + during functional adl or ue task with standint tolerance x 4 min to be achieved by 02/16/24. OT Balance Completed Yes Manage Orthopedic Condition Description: Improve patient and/or caregiver understanding of post surgical and/or non-surgical orthopedic intervention management as evidenced by patient and/or caregiver able to verbalize, demonstrate, and teach back instruction with a minimum of two strategies. To be achieved by 02/16/24. OT Orthopedic Post Surgical and/or Non Surgical Condition Completed Yes Interventions Intervention Associated Problem/Goal Status Variance Visit Notes Medication Education Description: Evaluate/instruct patient/caregiver on obtaining, storing, identifying and administering ordered medications as well as keeping accurate medication list in the home and adhereing to medication schedule Problem:Medication Education Goal:Patient/caregive r will demonstrate ability to obtain, store, identify and administer ordered medications, keep accurate medication list in home, and adhere to medication schedule Completed Patient instructed on importance of keeping accurate medication list in home, need to take up-to-date medication list to all medical provider appointments and adhering to medication schedule. Risk of Sepsis Description: Patient is at risk for sepsis. Monitor closely for s/s of sepsis. Problem:Sepsis Goal:Patient/caregive r will be able to identify and report symptoms of sepsis Completed Blood Sugar Description: Notify Dr. Beltran if blood sugar 200 for more than 2 consecutive days. Problem:Physician Specific Parameters Goal:Patient to maintain parameters within physician-specified ranges throughout certification period Completed SPO2 Description: Notify Dr. Beltran if pulse ox is <92% at rest. Problem:Physician Specific Parameters Goal:Patient to maintain parameters within physician-specified ranges throughout certification period Completed Instruct on individual fall risk factors and strategies to prevent falls and injuries caused by falls. Problem:Risk for Falls Goal:Manage Risk for falls Completed OT: Patient instructed on Eliminating Environmental Hazards: Keep pathways clear, Keep rooms and walkways well lit and Keep frequently used items within reach Instruct on pain and instruct on strategies to control pain Problem:Pain Goal:Manage Pain Completed patient and caregiver instructed on techniques to control pain including Pharmacological measures and Non-Pharmacological measures; positioning/elevation and use of thermal modalities, apply ice to affected area for the following prescribed frequency: prn for pain. Instruct on ongoing discharge plan Problem:Discharge Goal:Manage discharge planning Completed Ongoing Discharge plan: Discharge plan discussed with patient and caregiver including frequency and duration for home OT and plan for transition to: caregiver assistance. Instruct and educate on knowledge deficits Problem:OT Learning Assessment Goal:Demonstrate understanding of education Completed Education methods include: verbal cues and visual cues. Patient/Caregiver has received education to improve knowledge and compliance with fall prevention strategies, orthopedic condition management, pain management, post surgical precautions, balance training, home safety, infection control precautions, functional adl/iadl activity, functional transfers, home exercise program and discharge planning. Therapeutic Exercises Problem:OT Upper Body Strength and/or ROM Goal:Improved Strength and/or ROM Completed Therapist reviewed UB HEP. Spouse assists with UB HEP. Spouse reports pt has progressed to 12 reps of each exercise and pt is able to demo correct technique with VCs. Transfer Training Problem:OT Functional Transfers Goal:Improved Functional Transfers Completed Pt completed toilet transfer with Mod Indep with toilet seat riser. She requires SBA for shower transfer. VCs for foot placement and technique Balance Training Problem:OT Balance Goal:Improved Balance Completed Pt has progressed to ambulation with a cane in the home. She has not had any falls since coming home from the hospital. Instruct on orthopedic precautions and weight bearing restrictions Problem:OT Orthopedic Post Surgical and/or Non Surgical Condition Goal:Manage Orthopedic Condition Completed Therapist reviewed TH precautions and pt was able to state 2/3 precautions. Pt continues to require supervision. Instruct on management of edema Problem:OT Orthopedic Post Surgical and/or Non Surgical Condition Goal:Manage Orthopedic Condition Completed Instruct patient on management of edema including elevation of L LE above the level of the heart, ice and benefits of activity. [facility] Visit Details Visit Type -PT AGENCY DC W V ISIT Discipline -Physical Therapy Problems Problem Description Start Date Status Goals Interve ntions Medication Education Disciplines: Skilled Services 01/26/2024 Resolved on 02/14/2024 1 goal linked to scheduled/document ed intervention Sepsis Disciplines: Skilled Services 01/26/2024 Resolved on 02/14/2024 1 goal linked to scheduled/document ed intervention 1 goal intervention scheduled/document ed in this visit Physician Specific Parameters Disciplines: Skilled Services 01/26/2024 Resolved on 02/14/2024 1 goal linked to scheduled/document ed intervention 2 goal interventions scheduled/document ed in this visit Risk for Falls Disciplines: Skilled Services 01/26/2024 Resolved on 02/14/2024 1 goal linked to scheduled/document ed intervention 1 goal intervention scheduled/document ed in this visit Pain Disciplines: Skilled Services 01/26/2024 Resolved on 02/14/2024 1 goal linked to scheduled/document ed intervention 1 goal intervention scheduled/document ed in this visit Discharge Disciplines: Skilled Services 01/26/2024 Resolved on 02/14/2024 1 goal linked to scheduled/document ed intervention Advance Directives Disciplines: Skilled Services 01/26/2024 Resolved on 02/14/2024 1 goal linked to scheduled/document ed intervention PT Impaired muscle performance and/or ROM Disciplines: PT 01/26/2024 Resolved on 02/14/2024 1 goal linked to scheduled/document ed intervention 1 goal intervention scheduled/document ed in this visit PT Impaired mobility Disciplines: PT 01/26/2024 Resolved on 02/14/2024 2 goals linked to scheduled/document ed interventions 2 goal interventions scheduled/document ed in this visit PT Impaired gait Disciplines: PT 01/26/2024 Resolved on 02/14/2024 2 goals linked to scheduled/document ed interventions 2 goal interventions scheduled/document ed in this visit PT Impaired balance Disciplines: PT 01/26/2024 Resolved on 02/14/2024 1 goal linked to scheduled/document ed intervention 1 goal intervention scheduled/document ed in this visit PT Orthopedic Condition Disciplines: PT 01/26/2024 Resolved on 02/14/2024 1 goal linked to scheduled/document ed intervention 3 goal interventions scheduled/document ed in this visit PT Learning Assessment Disciplines: PT 01/26/2024 Resolved on 02/14/2024 1 goal linked to scheduled/document ed intervention 1 goal intervention scheduled/document ed in this visit Goals Goal Associated Problem Outcome Goal Met? Visit Notes Patient/caregiver will demonstrate ability to obtain, store, identify and administer ordered medications, keep accurate medication list in home, and adhere to medication schedule Description: Patient/caregiver will demonstrate ability to obtain, store, identify and administer ordered medications, keep accurate medication list in home, and adhere to medication schedule by 03/25/24. Medication Education Completed Yes Patient/caregiver will be able to identify and report symptoms of sepsis Description: Patient/caregiver will be able to identify signs/symptoms of sepsis infection and will verbalize actions to take if suspected by 03/25/24. Sepsis Completed Yes Patient to maintain parameters within physician-specified ranges throughout certification period Physician Specific Parameters Completed Yes Manage Risk for falls Description: Patient/caregiver will verbalize knowledge of individualized fall prevention strategies by 03/25/24. Risk for Falls Completed Yes Manage Pain Description: Patient/caregiver will verbalize knowledge and understanding of appropriate techniques to control pain, including non-pharmacological techniques. Patient will verbalize or demonstrate an acceptable level of pain as evidenced by a pain score of 0-2/10 and improvement in ability to perform activities of daily living to be achieved by 03/25/24. Pain Completed Yes Manage discharge planning Description: Patient/caregiver will verbalize understanding of ongoing discharge plan provided related to disease management, arrangements for outpatient and/or community services, obtaining medications, supplies, and DME, as needed throughout certification period. Discharge Completed Yes Patient/caregiver will make healthcare providers aware of and any changes to Advance Directives throughout certification period Advance Directives Completed Yes Improved Muscle Performance and/or ROM Description: LTG: Patient will demonstrate improved muscle performance to meet functional goals as evidenced by ability to tolerate 8 mins of standing activity, to be achieved by 02/16/24. LTG: Patient and/or caregiver will verbalize/demonstrate independence with home exercise program, to improve functional mobility, to be achieved by 02/16/24. PT Impaired muscle performance and/or ROM Completed Yes Improved Transfers Description: LTG: Patient will demonstrate safe transfers to/from bed, chair and toilet independently with AD, to be achieved by 02/16/24. PT Impaired mobility Completed Yes Improved Bed Mobility Description: STG: Patient will demonstrate improved ability to position self independently in lift chair to be achieved by 02/09/24. PT Impaired mobility Completed Yes Improved Stair Climbing Description: LTG: Patient will demonstrate improved stair negotiation as evidenced by ascend/descend 3 steps without railing with supervision, to safely exit home, to be achieved by 02/16/24. PT Impaired gait Completed Yes Improved Gait Description: LTG: Patient will demonstrate improved gait ability as evidenced by ambulation 200 feet with front wheeled walker independently with AD, to return to safe household ambulation, in order to reach car in the driveway, to be achieved by 02/16/24. PT Impaired gait Completed Yes Improved Balance Description: LTG: Patient will demonstrate improved standing balance to meet functional goals as evidenced by no falls during home P.T. to be achieved by 02/16/24. PT Impaired balance Completed Yes Manage Orthopedic Condition Description: Improve patient and/or caregiver understanding of post surgical and/or non-surgical orthopedic intervention management as evidenced by patient and/or caregiver able to verbalize, demonstrate, and teach back instruction, to be achieved by 02/16/24. PT Orthopedic Condition Completed Yes Demonstrate understanding of education Description: Patient and/or caregiver will understand educational instruction to be achieved by 02/16/24. PT Learning Assessment Completed Yes Interventions Intervention Associated Problem/Goal Status Variance Visit Notes Risk of Sepsis Description: Patient is at risk for sepsis. Monitor closely for s/s of sepsis. Problem:Sepsis Goal:Patient/caregive r will be able to identify and report symptoms of sepsis Completed Blood Sugar Description: Notify Dr. Beltran if blood sugar 200 for more than 2 consecutive days. Problem:Physician Specific Parameters Goal:Patient to maintain parameters within physician-specified ranges throughout certification period Completed SPO2 Description: Notify Dr. Beltran if pulse ox is <92% at rest. Problem:Physician Specific Parameters Goal:Patient to maintain parameters within physician-specified ranges throughout certification period Completed Instruct on individual fall risk factors and strategies to prevent falls and injuries caused by falls. Problem:Risk for Falls Goal:Manage Risk for falls Completed PT: Patient instructed on Eliminating Environmental Hazards: Keep pathways clear, Remove unsafe rugs, Move furniture from pathways, Keep rooms and walkways well lit and Wear supportive shoes or non-skid socks Managing Impaired Functional Mobility: Use assistive device(s): front wheeled walker and single point cane Managing Pain Instruct on pain and instruct on strategies to control pain Problem:Pain Goal:Manage Pain Completed patient instructed on techniques to control pain including Pharmacological measures and Non-Pharmacological measures; rest, positioning/elevation and use of thermal modalities, apply ice to affected area . Physical Therapy Therapeutic Exercises Problem:PT Impaired muscle performance and/or ROM Goal:Improved Muscle Performance and/or ROM Completed patient and caregiver instructed on strengthening exercises including sydni standing heel raises, hip abd, flexion hams curls and 1/4 squats x's 10 each. seated faq x's 10 each with visual, written and verbal cues for posture and progressions. patient and caregiver instructed to perform home exercise program twice a day which included above ex. Physical Therapy Transfer Training Problem:PT Impaired mobility Goal:Improved Transfers Completed HORACE transfers with safe/proper technique Physical Therapy Bed Mobility Training Problem:PT Impaired mobility Goal:Improved Bed Mobility Completed pt can get in /out of bed but cont to sleep in the lift chair Physical Therapy Stair Training Problem:PT Impaired gait Goal:Improved Stair Climbing Completed up and down 3 steps with 2 hands on 1 rail Physical Therapy Gait Training Problem:PT Impaired gait Goal:Improved Gait Completed Indep amb with St cane and WW for outings with steady recip pattern x 100 Physical Therapy Balance Training Problem:PT Impaired balance Goal:Improved Balance Completed pt demonstrates improved dynamic standing balacne as evidenced by a tug of 22 Instruct on orthopedic precautions and weight bearing restrictions Description: Orthopedic precautions including left posterior hip: no hip flexion > 90 degrees, no hip abduction and no IR rotation of involved extermity. Weight bearing restrictions include: WBAT of involved extremity. Problem:PT Orthopedic Condition Goal:Manage Orthopedic Condition Completed patient instructed on orthopedic precautions. Instruct on management of edema Problem:PT Orthopedic Condition Goal:Manage Orthopedic Condition Completed Instruct patient on management of edema including elevation of LLE above the level of the heart and ice. Instruct on self-management of post surgical and/or non-surgical orthopedic intervention Problem:PT Orthopedic Condition Goal:Manage Orthopedic Condition Completed patient instructed on managagement of orthopedic condition, eating foods with high protein, signs and symptoms of infection, signs and symptoms of DVT/PE and instructed on when to call provider. Instruct and educate on knowledge deficits Problem:PT Learning Assessment Goal:Demonstrate understanding of education Completed patient verbalize and/or demonstrate understanding of physical therapy education including orthopedic condition management, surgical precautions, pain management, fall prevention strategies, home safety, functional activity and home exercise program. Education methods include: verbal cues and written instructions. documented in this encounter [facility] for referral (narrative)* Diagnostic Procedure Only (Routine) - Closed Specialty Diagnoses / Procedures Referred By Contac t Referred To Contact [facility] Diagnoses Encounter for screening mammogram for breast cancer Procedures MADHU SCREENING SCREENING MAMMOGRAPHY BI 2-VIEW BREAST INC CAD Jesus Davila MD [address] [place] [address] [facility] [address] [place] [address] Referral ID Status Reason Start Date Expiration Date V isits Requested Visits Authorized [id number] Closed Auto-Generate d Referral 10/19/2021 11/18/2022 1 1 [facility] for referral (narrative)* Diagnostic Procedure Only (Urgent) - Authorized Specialty Diagnoses / Procedures Referred By Contac t Referred To Contact XR IMAGING Diagnoses Finger pain, right Procedures XR DIGIT GENERAL 3V FRONTAL/LAT/OBL RIGHT RADEX FINGR MINIMUM 2 VIEWS Vidya Martin PA-C [address] [place] [address] Xr Imaging Referral ID Status Reason Start Date Expiration Date Visits Requested Visits Authorized [id number] Authorized Auto-Generat ed Referral 06/09/2022 07/09/2023 1 1 [facility] for referral (narrative)* Diagnostic Procedure Only (Routine) - Closed Specialty Diagnoses / Procedures Referred By Contac t Referred To Contact XR IMAGING Diagnoses Chronic right shoulder pain Procedures XR SHOULDER [id number] AP/TRUE AP RIGHT RADEX SHOULDER COMPLETE MINIMUM 2 VIEWS Arslan Ugarte MD [address] [place] [address] Xr Imaging Referral ID Status Reason Start Date Expiration Date V isits Requested Visits Authorized [id number] Closed Auto-Generate d Referral 07/10/2022 08/09/2023 1 1 * Occupational Therapy (Routine) - Pending Review Specialty Diagnoses / Procedures Referred By Contac t Referred To Contact [facility] Diagnoses Pain of right hand Weakness of hand Primary osteoarthritis of right hand Procedures CONSULT TO SUPERVISOR MOLDING OCCUPATIONAL THERAPY EVAL HIGH COMPLEX 60 MINS Arslan Ugarte MD [address] [place] [address] [facility] [place] [address] [place] [address] Referral ID Status Reason Start Date Expiration Date Visits Requested Visits Authorized [id number] Pending Review Auto-Generat ed Referral 07/10/2023 1 1 [facility] for referral (narrative)* Outpatient Procedure (Routine) - Authorized Specialty Diagnoses / Procedures Referred By Alfredo ramires Referred To Contact [facility] Diagnoses GERD without esophagitis Dysphagia, unspecified type Procedures EGD - THERAPEUTIC, EUS, OR TUBE INTERVENTIONS EGD DILATION GASTRIC/[place] [address] [place] [address] [facility] [place] [address] [place] [id number] Referral ID Status Reason Start Date Expiration Date Visits Requested Visits Authorized [id number] Authorized Auto-Generat ed Referral 12/25/2022 12/26/2023 1 1 T [facility] for referral (narrative)* Diagnostic Procedure Only (Routine) - Pending Review Specialty Diagnoses / Procedures Referred By Alfredo ramires Referred To Contact [facility] Diagnoses Screening mammogram for breast cancer Procedures MADHU SCREENING SCREENING MAMMOGRAPHY BI 2-VIEW BREAST INC Jamee Ellsworth ELEVATOR INSTALLER.[employer] [address] [place] [address] [facility] [address] [place] [address] Referral ID Status Reason Start Date Expiration Date Visits Requested Visits Authorized [id number] Pending Review Auto-Generat ed Referral 01/05/2023 02/04/2024 1 1 [facility] for referral (narrative)* Diagnostic Procedure Only (Routine) - Authorized Specialty Diagnoses / Procedures Referred By Contac t Referred To Contact [facility] Diagnoses Abnormal screening mammogram Procedures US BREAST LTD RIGHT US BREAST UNI REAL TIME WITH IMAGE LIMITED Jamee Vergara APRN.[employer] [address] [place] [address] [facility] [address] [place] [address] Referral ID Status Reason Start Date Expiration Date Visits Requested Visits Authorized [id number] Authorized Auto-Generat ed Referral 01/09/2023 02/08/2024 1 1 * Diagnostic Procedure Only (Routine) - Authorized Specialty Diagnoses / Procedures Referred By Contac t Referred To Contact [facility] Diagnoses Abnormal screening mammogram Procedures MADHU DIAGNOSTIC RIGHT DIAGNOSTIC MAMMOGRAPHY COMPUTER-AIDED DETCJ UNI Jamee Vergara APRN.[employer] [address] [place] [address] [facility] [address] [place] [address] Referral ID Status Reason Start Date Expiration Date Visits Requested Visits Authorized [id number] Authorized Auto-Generat ed Referral 01/09/2023 02/08/2024 1 1 [facility] for referral (narrative)* - Pending Review Specialty Diagnoses / Procedures Referred By Contac t Referred To Contact Physical Therapy Diagnoses Primary osteoarthritis of left hip Procedures CONSULT TO PHYSICAL THERAPY Akilah Rowe PA-C [address] [place] [address] Referral ID Status Reason Start Date Expiration Date V isits Requested Visits Authorized [id number] Pending Review 04/27/2023 07/26/2023 1 1 * Diagnostic Procedure Only (Routine) - Pending Review Specialty Diagnoses / Procedures Referred By Contac t Referred To Contact XR IMAGING Diagnoses Primary osteoarthritis of left hip Procedures XR HIP GENERAL 3V PELV/AP/LAT LEFT RADEX HIP UNILATERAL WITH PELVIS 2-3 VIEWS Akilah Rowe PA-C [address] [facility] [place] [id number] Xr Imaging [facility]95 Referral ID Status Reason Start Date Expiration Date Visits Requested Visits Authorized [id number] Pending Review Auto-Generat ed Referral 04/27/2023 05/26/2024 1 1 * Consult, Test, Treat (Routine) - Authorized Specialty Diagnoses / Procedures Referred By Contac t Referred To Contact Anesthesiology Diagnoses Primary osteoarthritis of left hip Procedures CONSULT TO ANESTHESIOLOGY OFFICE/OUTPATIENT [facility] 60-74 MINUTES Akilah Rowe PA-C [address] [place] [id number] Referral ID Status Reason Start Date Expiration Date Visits Requested Visits Authorized [id number] Authorized PCP Requested Referral 04/27/2023 04/26/2024 1 1 * Diagnostic Procedure Only (Routine) - Pending Review Specialty Diagnoses / Procedures Referred By Contac t Referred To Contact XR IMAGING Diagnoses Primary osteoarthritis of left hip Procedures XR HIP GENERAL 3V PELV/AP/LAT LEFT RADEX HIP UNILATERAL WITH PELVIS 2-3 VIEWS Akilah Rowe PA-C [address] [facility] [place] [id number] Xr Imaging [facility]95 Referral ID Status Reason Start Date Expiration Date Visits Requested Visits Authorized [id number] Pending Review Auto-Generat ed Referral 04/27/2023 05/26/2024 1 1 * Outpatient Procedure (Routine) - Pending Review Specialty Diagnoses / Procedures Referred By Contac t Referred To Contact [facility] Diagnoses Primary osteoarthritis of left hip Procedures ECG COMPLETE ECG ROUTINE ECG W/LEAST 12 LDS W/I&R Akilah Rowe PA-C [address] [facility] [place] [id number] [facility] [place] [address] [place] [address] Referral ID Status Reason Start Date Expiration Date Visits Requested Visits Authorized [id number] Pending Review Auto-Generat ed Referral 04/27/2023 04/26/2024 1 1 [facility] for referral (narrative)* Diagnostic Procedure Only (Routine) - Closed Specialty Diagnoses / Procedures Referred By Contac t Referred To Contact XR IMAGING Diagnoses Primary osteoarthritis of both hips Procedures XR HIP BILATERAL 5V PEL/AP/LAT EACH HIP RADEX HIPS BILATERAL WITH PELVIS MINIMUM 5 VIEWS Clyde Beltran MD [address] [place] [phone] Xr Imaging [facility]95 Referral ID Status Reason Start Date Expiration Date V isits Requested Visits Authorized [id number] Closed Auto-Generate d Referral 04/16/2023 05/15/2024 1 1 [facility] for referral (narrative)* Diagnostic Procedure Only (Routine) - Pending Review Specialty Diagnoses / Procedures Referred By Contac t Referred To Contact XR IMAGING Diagnoses Primary osteoarthritis of left hip Procedures XR HIP GENERAL 3V PELV/AP/LAT LEFT RADEX HIP UNILATERAL WITH PELVIS 2-3 VIEWS Akilah Rowe PA-C [address] [place] [address] Xr Imaging [facility]95 Referral ID Status Reason Start Date Expiration Date Visits Requested Visits Authorized [id number] Pending Review Auto-Generat ed Referral 12/12/2023 01/10/2025 1 1 * Physical Therapy (Routine) - Pending Review Specialty Diagnoses / Procedures Referred By Contac t Referred To Contact [facility] Diagnoses Primary osteoarthritis of left hip Procedures CONSULT TO PHYSICAL THERAPY PHYSICAL THERAPY EVALUATION HIGH COMPLEX 45 MINS Akilah Rowe PA-C [address] [place] [address] [facility] [place] [address] [place] [address] Referral ID Status Reason Start Date Expiration Date Visits Requested Visits Authorized [id number] Pending Review Auto-Generat ed Referral 12/12/2023 12/11/2024 1 1 * Consult, Test, Treat (Routine) - Authorized Specialty Diagnoses / Procedures Referred By Contac t Referred To Contact Anesthesiology Diagnoses Primary osteoarthritis of left hip Procedures CONSULT TO ANESTHESIOLOGY OFFICE/OUTPATIENT [facility] 60 MINUTES Akilah Rowe PA-C [address] [place] [address] Referral ID Status Reason Start Date Expiration Date Visits Requested Visits Authorized [id number] Authorized PCP Requested Referral 12/12/2023 12/11/2024 1 1 * Diagnostic Procedure Only (Routine) - Pending Review Specialty Diagnoses / Procedures Referred By Contac t Referred To Contact XR IMAGING Diagnoses Primary osteoarthritis of left hip Procedures XR HIP GENERAL 3V PELV/AP/LAT LEFT RADEX HIP UNILATERAL WITH PELVIS 2-3 VIEWS Akilah Rowe PA-C [address] [place] [address] [place] [address] Referral ID Status Reason Start Date Expiration Date Visits Requested Visits Authorized [id number] Pending Review Auto-Generat ed Referral 12/12/2023 01/10/2025 1 1 * Outpatient Procedure (Routine) - Pending Review Specialty Diagnoses / Procedures Referred By Contac t Referred To Contact [facility] Diagnoses Primary osteoarthritis of left hip Procedures ECG COMPLETE ECG ROUTINE ECG W/LEAST 12 LDS W/I&R Akilah Rowe PA-C [address] [place] [address] [facility] [place] [address] [place] [address] Referral ID Status Reason Start Date Expiration Date Visits Requested Visits Authorized [id number] Pending Review Auto-Generat ed Referral 12/12/2023 12/11/2024 1 1 [facility] for referral (narrative)* Diagnostic Procedure Only (Routine) - Closed Specialty Diagnoses / Procedures Referred By Contac t Referred To Contact XR IMAGING Diagnoses Primary osteoarthritis of left hip Procedures XR HIP GENERAL 3V PELV/AP/LAT LEFT RADEX HIP UNILATERAL WITH PELVIS 2-3 VIEWS Akilah Rowe PA-C [address] [place] [address] [facility] [facility] Referral ID Status Reason Start Date Expiration Date V isits Requested Visits Authorized [id number] Closed Auto-Generate d Referral 10/23/2023 11/21/2024 1 1 [facility] for referral (narrative)* Diagnostic Procedure Only (Routine) - Pending Review Specialty Diagnoses / Procedures Referred By Contac t Referred To Contact US IMAGING Diagnoses Dyspnea on exertion Bilateral lower extremity edema Procedures US DVT LOWER BILATERAL DUP-SCAN XTR VEINS COMPLETE BILATERAL STUDY Akilah Pena Jr., MD [address] [address] Us Imaging [facility] Referral ID Status Reason Start Date Expiration Date Visits Requested Visits Authorized [id number] Pending Review Auto-Generat ed Referral 01/07/2024 02/05/2025 1 1 * Outpatient Procedure (Routine) - Pending Review Specialty Diagnoses / Procedures Referred By Contac t Referred To Contact [facility] Diagnoses Dyspnea on exertion Bilateral lower extremity edema Procedures ECHO ECHO TTHRC R-T 2D W/WOM-MODE COMPL SPEC&COLR D Akilah Pena Jr., MD [address] [address] [facility] [place] [address] [place] [address] Referral ID Status Reason Start Date Expiration Date Visits Requested Visits Authorized [id number] Pending Review Auto-Generat ed Referral 01/07/2024 01/06/2025 1 1 [facility] for referral (narrative)* Diagnostic Procedure Only (Routine) - Closed Specialty Diagnoses / Procedures Referred By Contac t Referred To Contact XR IMAGING Diagnoses Primary osteoarthritis of left hip Procedures XR HIP GENERAL 3V PELV/AP/LAT LEFT RADEX HIP UNILATERAL WITH PELVIS 2-3 VIEWS Akilah Rowe PA-C [address] [place] [address] Xr Imaging [facility] Referral ID Status Reason Start Date Expiration Date V isits Requested Visits Authorized [id number] Closed Auto-Generate d Referral 12/12/2023 01/10/2025 1 1 [facility] for referral (narrative)* Diagnostic Procedure Only (Routine) - Closed Specialty Diagnoses / Procedures Referred By Contac t Referred To Contact XR IMAGING Diagnoses Rib pain on left side Procedures XR RIBS/CHEST 3V AP RIB/OBLS/CXR LEFT RADEX RIBS UNI W/POSTEROANT CH MINIMUM 3 VIEWS Jesus Davila MD [address] [place] [address] Xr Imaging [facility] Referral ID Status Reason Start Date Expiration Date V isits Requested Visits Authorized [id number] Closed Auto-Generate d Referral 05/08/2023 06/06/2024 1 1 [facility] for referral (narrative)* Outpatient Procedure (Routine) - Closed Specialty Diagnoses / Procedures Referred By Contac t Referred To Contact [facility] Diagnoses GERD without esophagitis Dysphagia, unspecified type Procedures EGD - THERAPEUTIC, EUS, OR TUBE INTERVENTIONS EGD DILATION GASTRIC/[place] [address] [place] [address] [facility] [place] [address] [place] [address] Referral ID Status Reason Start Date Expiration Date V isits Requested Visits Authorized [id number] Closed Auto-Generate d Referral 12/25/2022 12/26/2023 1 1 [facility] for referral (narrative)* Diagnostic Procedure Only (Routine) - Closed Specialty Diagnoses / Procedures Referred By Alfredo ramires Referred To Contact XR IMAGING Diagnoses Chronic right shoulder pain Procedures XR SHOULDER [id number] AP/TRUE AP RIGHT RADEX SHOULDER COMPLETE MINIMUM 2 VIEWS Arslan Ugarte MD [address] [place] [address] Xr Imaging [facility] Referral ID Status Reason Start Date Expiration Date V isits Requested Visits Authorized [id number] Closed Auto-Generate d Referral 07/10/2022 08/09/2023 1 1 [facility] for referral (narrative)No reason for referral information [facility] Work Phone: Reason for visit Narrative* Diagnostic Procedure Only (Routine) - Closed Specialty Diagnoses / Procedures Referred By Alfredo ramires Referred To Contact BR IMAGING Diagnoses Encounter for screening mammogram for breast cancer Procedures MADHU SCREENING SCREENING MAMMOGRAPHY BI 2-VIEW BREAST INC CAD Jesus Davila MD [address] [place] [address] [facility] [address] [place] [address] Referral ID Status Reason Start Date Expiration Date V isits Requested Visits Authorized [id number] Closed Auto-Generate d Referral 10/19/2021 11/18/2022 1 1 [facility] for visit Narrative* Diagnostic Procedure Only (Routine) - Closed Specialty Diagnoses / Procedures Referred By Contac t Referred To Contact BR IMAGING Diagnoses Screening mammogram for breast cancer Procedures MADHU SCREENING SCREENING MAMMOGRAPHY BI 2-VIEW BREAST INC CAD Jamee Weinstein, ELEVATOR INSTALLER.[employer] [address] [place] [address] [facility] Imaging [address] [facility] [place] [address] Referral ID Status Reason Start Date Expiration Date V isits Requested Visits Authorized [id number] Closed Auto-Generate d Referral 12/25/2023 01/23/2025 1 1 [facility] for visit Narrative* Diagnostic Procedure Only (Routine) - Closed Specialty Diagnoses / Procedures Referred By Contac t Referred To Contact US IMAGING Diagnoses Dyspnea on exertion Bilateral lower extremity edema Procedures US DVT LOWER BILATERAL DUP-SCAN XTR VEINS COMPLETE BILATERAL STUDY Akilah Pena Jr., MD [address] [facility] [address] [place] [address] [place] [address] Referral ID Status Reason Start Date Expiration Date V isits Requested Visits Authorized [id number] Closed Auto-Generate d Referral 01/07/2024 02/05/2025 1 1 [facility] for visit Narrative* Diagnostic Procedure Only (Routine) - Closed Specialty Diagnoses / Procedures Referred By Booac t Referred To Contact XR IMAGING Diagnoses Status post left hip replacement Procedures XR HIP GENERAL 3V PELV/AP/LAT LEFT RADEX HIP UNILATERAL WITH PELVIS 2-3 VIEWS Akilah Rowe, [place] [address] [place] [address] Xr Imaging [facility] Referral ID Status Reason Start Date Expiration Date V isits Requested Visits Authorized [id number] Closed Auto-Generate d Referral 04/08/2024 05/07/2025 1 1 [facility] for visit Narrative* Diagnostic Procedure Only (Routine) - Closed Specialty Diagnoses / Procedures Referred By Contac t Referred To Contact XR IMAGING Diagnoses Primary osteoarthritis of left hip Procedures XR HIP GENERAL 3V PELV/AP/LAT LEFT RADEX HIP UNILATERAL WITH PELVIS 2-3 VIEWS Akilah Rowe, PA-C [address] [place] [address] [place] [address] Referral ID Status Reason Start Date Expiration Date V isits Requested Visits Authorized [id number] Closed Auto-Generate d Referral 12/12/2023 01/10/2025 1 1 [facility] for visit Narrative* Diagnostic Procedure Only (Routine) - Closed Specialty Diagnoses / Procedures Referred By Contac t Referred To Contact XR IMAGING Diagnoses Rib pain on left side Procedures XR RIBS/CHEST 3V AP RIB/OBLS/CXR LEFT RADEX RIBS UNI W/POSTEROANT CH MINIMUM 3 VIEWS Jesus Davila MD [address] [place] [address] [place] [address] Referral ID Status Reason Start Date Expiration Date V isits Requested Visits Authorized [id number] Closed Auto-Generate d Referral 05/08/2023 06/06/2024 1 1 [facility] for visit Narrative* Outpatient Procedure (Routine) - Closed Specialty Diagnoses / Procedures Referred By Contac t Referred To Contact [facility] Diagnoses GERD without esophagitis Dysphagia, unspecified type Procedures EGD - THERAPEUTIC, EUS, OR TUBE INTERVENTIONS EGD DILATION GASTRIC/[place] [address] [place] [address] [facility] [place] [address] [place] [address] Referral ID Status Reason Start Date Expiration Date V isits Requested Visits Authorized [id number] Closed Auto-Generate d Referral 12/25/2022 12/26/2023 1 1 [facility] for visit Narrative* Diagnostic Procedure Only (Routine) - Closed Specialty Diagnoses / Procedures Referred By Contac t Referred To Contact XR IMAGING Diagnoses Chronic right shoulder pain Procedures XR SHOULDER [id number] AP/TRUE AP RIGHT RADEX SHOULDER COMPLETE MINIMUM 2 VIEWS Arslan Ugarte MD [address] [place] [address] [place] [address] Referral ID Status Reason Start Date Expiration Date V isits Requested Visits Authorized [id number] Closed Auto-Generate d Referral 07/10/2022 08/09/2023 1 1 [facility] for visit Narrative* Diagnostic Procedure Only (Routine) - Closed Specialty Diagnoses / Procedures Referred By Contac t Referred To Contact XR IMAGING Diagnoses Multiple joint pain Procedures XR KNEE GENERAL 4V AP BOTH/PA BOTH/LAT/MERC BILATERAL RADIOLOGIC EXAM KNEE COMPLETE 4/MORE VIEWS Jesus Davila MD [address] [place] [address] Phone: tel: fax: [place] [address] Referral ID Status Reason Start Date Expiration Date V isits Requested Visits Authorized [id number] Closed Auto-Generate d Referral 12/30/2024 01/29/2026 1 1 [facility] for visit Narrative* Diagnostic Procedure Only (Routine) - Closed Specialty Diagnoses / Procedures Referred By Alfredo ramires Referred To Contact BR IMAGING Diagnoses Screening mammogram for breast cancer Procedures MADHU SCREENING SCREENING MAMMOGRAPHY BI 2-VIEW BREAST INC CAD Jesus Davila MD [address] [place] [address] Phone: tel: fax: [facility] [address] [place] [address] Referral ID Status Reason Start Date Expiration Date V isits Requested Visits Authorized [id number] Closed Auto-Generate d Referral 12/16/2024 01/14/2026 1 1 [facility] Summary Purpose Family History No Family History Records Found Relationship Condition Age at Onset Recorded Date/T elise father Myocardial infarction Unknown mother Chronic obstructive pulmonary disease Unk nown brother Abdominal aortic aneurysm (AAA) Unknown Malignant neoplasm of lung Unknown Pancreatitis Unknown sister Hypertension Unknown Diabetes mellitus Unknown Coronary artery disease Unknown Unknown Advance Directives No Advanced Directives Records FoundDocuments on File Type Date Recorded Patient Rn Unit Manager Expl anation Advance Directive(s) 03/07/2019 4:17 PM Date Activated Date Inactivated Comments 01/26/2024 4:08 PM Documents on File Type Date Recorded Patient Rn Unit Manager Expl anation Advance Directive(s) 06/21/2020 2:18 PM Advance Directive(s) 06/07/2019 10:24 AM Advance Directive(s) 03/07/2019 3:22 PM Advance Directive(s) 03/07/2019 4:16 PM Advance Directive(s) 03/07/2019 4:17 PM Advance Directive(s) 02/12/2019 9:18 AM Advance Directive(s) 09/13/2017 8:03 AM Documents on File Type Date Recorded Patient Rn Unit Manager Expl anation Advance Directive(s) 06/21/2020 2:18 PM Advance Directive(s) 06/07/2019 10:24 AM Advance Directive(s) 03/07/2019 3:22 PM Advance Directive(s) 03/07/2019 4:16 PM Advance Directive(s) 03/07/2019 4:17 PM Advance Directive(s) 02/12/2019 9:18 AM Advance Directive(s) 09/13/2017 8:03 AM Advance Directive Response Recorded Date/ Time Advance Directives No September 14, 2014 11:47pm Living Will No December 24, 2020 10:44am Power of Big Data Analytics Lead No December 24 10:44am Documents on File Type Date Recorded Patient Rn Unit Manager Expl anation Advance Directive(s) 03/07/2019 4:17 PM Advance Directive Response Recorded Date/ Time Advance Directives No September 14, 2014 11:47pm Living Will No May 15 022 11:42pm Power of Big Data Analytics Lead No May 15, 2022 11:42pm Advance Directive Response Recorded Date/ Time Advance Directives No September 14, 2014 11:47pm Living Will No June 10 2 2:27pm Power of Big Data [employer] Lead No June 10 022 2:27pm Advance Directive Response Recorded Date/ Time Advance Directives No September 14, 2014 10:47pm Living Will No June 10 2 1:27pm Power of Big Data Analytics Lead No June 10 2 022 1:27pm Advance Directive Response Recorded Date/ Time Name of Medical Power of Big Data Analytics Lead June 15, 2023 6:20am Advance Directives No September 14, 2014 11:47pm Living Will No June 15 3 6:20am Power of Big Data Analytics Lead Yes June 15, 023 6:20am Advance Directive Response Recorded Date/ Time Name of Medical Power of Big Data Analytics Lead Edward, January 15, 2024 9:40pm Advance Directives No September 14, 2014 11:47pm Living Will No January 15, 2024 9: 40pm Power of Big Data Analytics Lead Yes January 15, 2024 9:40pm Date Activated Date Inactivated Comments 01/26/2024 4:08 PM Advance Directive Response Recorded Date/ Time Do you have a Healthcare Power of Big Data Analytics Lead? Yes March 16, 2025 9:15pm Name of Medical Power of Big Data Analytics Lead edward March 16, 2025 9:15pm Advance Directives No September 14, 2014 11:47pm Chief Complaint Chief Complaint Description Start Date right hip post right hip sco pe with excision of seroma gluteus medius and minimus repair rotium augmentation allograft augmentation trochanteric bursectomy iliotibial band resection on 09/19/2021 Preliminary chief co mplaint data, not yet signed by the author as of Chief Complaint Description Start Date right hip post right hip sco pe with excision of seroma gluteus medius and minimus repair rotium augmentation allograft augmentation trochanteric bursectomy iliotibial band resection on 09/19/2021 Preliminary chief co mplaint data, not yet signed by the author as of Chief Complaint and Reason for Visit Chief Complaint SNF LABWORK SNF LABWORK LAB WORK SNF LABWORK SNF LABWORK SNF LABWORK 4 M FU SLEEP APNEA; 5/2 ANS NO RESPONSE Reason for Visit Chronic diastolic (c ongestive) heart failure ABDI (obstructive sleep apnea) Pulmonary hypertension Chief Complaint SNF LABWORK 4 M FU SLEEP APNEA; 5/2 ANS NO RESPONSE Reason for Visit Chronic diastolic (c ongestive) heart failure ABDI (obstructive sleep apnea) Pulmonary hypertension Chief Complaint 4 M FU SLEEP APNEA; 5/2 ANS NO RESPONSE Reason for Visit Chronic diastolic (c ongestive) heart failure ABDI (obstructive sleep apnea) Pulmonary hypertension Chief Complaint 4 M FU SLEEP APNEA; 5/2 ANS NO RESPONSE 6 M FU Reason for Visit Chronic diastolic (c ongestive) heart failure ABDI (obstructive sleep apnea) Pulmonary hypertension Atherosclerotic heart disease of lime coronary artery without angina pectoris Chronic diastolic (congestive) heart failure Essential (primary) hypertension Hyperlipidemia ABDI (obstructive sleep apnea) Pulmonary hypertension Chief Complaint 4 M FU SLEEP APNEA; 5/2 ANS NO RESPONSE 6 M FU LT ANKLE/FOOT OSTEOMYELITIS Reason for Visit Chronic diastolic (c ongestive) heart failure ABDI (obstructive sleep apnea) Pulmonary hypertension Atherosclerotic heart disease of lime coronary artery without angina pectoris Chronic diastolic (congestive) heart failure Essential (primary) hypertension Hyperlipidemia ABDI (obstructive sleep apnea) Pulmonary hypertension Chief Complaint 6 M FU LT ANKLE/FOOT OSTEOMYELITIS 4 M FU R KNEE Reason for Visit Atherosclerotic hear t disease of lime coronary artery without angina pectoris Chronic diastolic (congestive) heart failure Essential (primary) hypertension Hyperlipidemia ABDI (obstructive sleep apnea) Pulmonary hypertension Chronic diastolic (congestive) heart failure ABDI (obstructive sleep apnea) Pulmonary hypertension Chief Complaint SLEEP APNEA; 5/2 ANS NO RESPONSE 6 M FU LT ANKLE/FOOT OSTEOMYELITIS 4 M FU Reason for Visit Atherosclerotic hear t disease of lime coronary artery without angina pectoris Chronic diastolic (congestive) heart failure Essential (primary) hypertension Hyperlipidemia ABDI (obstructive sleep apnea) Pulmonary hypertension Chronic diastolic (congestive) heart failure ABDI (obstructive sleep apnea) Pulmonary hypertension Chief Complaint 6 M FU LT ANKLE/FOOT OSTEOMYELITIS 4 M FU R KNEE upper extremity Reason for Visit Atherosclerotic hear t disease of lime coronary artery without angina pectoris Chronic diastolic (congestive) heart failure Essential (primary) hypertension Hyperlipidemia ABDI (obstructive sleep apnea) Pulmonary hypertension Chronic diastolic (congestive) heart failure ABDI (obstructive sleep apnea) Pulmonary hypertension Chief Complaint 4 M FU R KNEE upper extremity right hand RIGHT HAND Right hand R HAND PAIN/WEAKNESS. OA. RX HERE Reason for Visit Chronic diastolic (c ongestive) heart failure ABDI (obstructive sleep apnea) Pulmonary hypertension [id number] Chief Complaint 4 M FU R KNEE upper extremity right hand RIGHT HAND Right hand R HAND PAIN/WEAKNESS. OA. RX HERE 3 M FU Reason for Visit Chronic diastolic (c ongestive) heart failure ABDI (obstructive sleep apnea) Pulmonary hypertension [id number] Chronic diastolic (congestive) heart failure Chronic sinusitis ABDI (obstructive sleep apnea) Pulmonary hypertension Chief Complaint Right hand R HAND PAIN/WEAKNESS. OA. RX HERE 3 M FU 1 Y FU Reason for Visit [id number] Chronic diastolic (congestive) heart failure Chronic sinusitis ABDI (obstructive sleep apnea) Pulmonary hypertension Atherosclerotic heart disease of lime coronary artery without angina pectoris Chronic diastolic (congestive) heart failure Essential (primary) hypertension ABDI (obstructive sleep apnea) Pulmonary hypertension Chief Complaint 3 M FU 1 Y FU 4 M FU Reason for Visit Chronic diastolic (c ongestive) heart failure Chronic sinusitis ABDI (obstructive sleep apnea) Pulmonary hypertension Atherosclerotic heart disease of lime coronary artery without angina pectoris Chronic diastolic (congestive) heart failure Essential (primary) hypertension ABDI (obstructive sleep apnea) Pulmonary hypertension ABDI (obstructive sleep apnea) Pulmonary hypertension Chief Complaint 6 M FU E-ORDER fall Reason for Visit Urine frequency Atherosclerotic heart disease of lime coronary artery without angina pectoris Chronic diastolic (congestive) heart failure Essential (primary) hypertension ABDI (obstructive sleep apnea) Pulmonary hypertension Chief Complaint 6 M FU chest pain Reason for Visit Atherosclerotic hear t disease of lime coronary artery without angina pectoris Chronic diastolic (congestive) heart failure Essential (primary) hypertension ABDI (obstructive sleep apnea) Chief Complaint Admit Date vag bleeding March 16, 2025 4:59p m Chief Complaint Admit Date vag bleeding March 16, 2025 4:59p m 1 Y FU April 30, 2025 3: 36pm Reason for Visit Admit Date Atherosclerotic heart diseas e of lime coronary artery without angina pectoris April 30, 2025 3:36pm Chronic diastolic (congestive) heart rey lure April 30, 2025 3:36pm Essential (primary) hypertension April 30, 2025 3:36pm Hyperlipidemia April 30, 2025 3: 36pm ABDI (obstructive sleep apnea) April 3:36pm Pulmonary hypertension April 30, 2025 3:36pm Reason for Referral Specialty Diagnoses / Procedures Referred By Contluis alberto t Referred To Contact Akilah Pena Jr., MD [address] [facility] [address] [place] [address] Referral ID Status Reason Start Date Expiration Date Visits Re quested Visits Authorized [id number] Closed 1 1 Specialty Diagnoses / Procedures Referred By Contac t Referred To Contact Gastroenterology Diagnoses GERD without esophagitis Dysphagia, unspecified type Procedures CONSULT TO GASTROENTEROLOGY OFFICE/OUTPATIENT [facility] 60-74 MINUTES Jesus Davila MD [address] [place] [address] Referral ID Status Reason Start Date Expiration Date Visits Requested Visits Authorized [id number] Authorized PCP Requested Referral 10/24/2022 10/24/2023 1 1 Specialty Diagnoses / Procedures Referred By Contac t Referred To Contact Diagnoses Dementia without behavioral disturbance, psychotic disturbance, mood disturbance, or anxiety, unspecified dementia severity, unspecified dementia type (HCC) Akilah Pena Jr., MD [address] [facility] [address] [place] [address] Referral ID Status Reason Start Date Expiration Date Visits Re quested Visits Authorized [id number] Closed 1 1 Specialty Diagnoses / Procedures Referred By Contac t Referred To Contact Orthopedics Diagnoses Primary osteoarthritis of both hips Procedures CONSULT TO ORTHOPAEDICS OFFICE/OUTPATIENT [facility] 60-74 MINUTES Jesus Davila MD [address] [place] [address] [address] [facility] [address] [place] [address] Referral ID Status Reason Start Date Expiration Date Visits Requested Visits Authorized [id number] Authorized PCP Requested Referral 02/22/2023 02/22/2024 1 1 Specialty Diagnoses / Procedures Referred By Contac [place] [address] [facility] [address] [place] [address] Referral ID Status Reason Start Date Expiration Date V isits Requested Visits Authorized [id number] Pending Review 1 1 Specialty Diagnoses / Procedures Referred By Contac t Referred To Contact Gerontology Diagnoses Pre-op evaluation Type 2 diabetes mellitus with diabetic neuropathy, with long-term current use of insulin (HCC) Arteriosclerotic heart disease (ASHD) Heart failure with preserved ejection fraction, unspecified HF chronicity (HCC) ABDI treated with BiPAP GERD without esophagitis S/P laparoscopic sleeve gastrectomy Fatty liver Chronic kidney disease, stage IV (severe) (HCC) History of thyroid cancer Anemia, unspecified type Cognitive impairment Hyperlipidemia, unspecified hyperlipidemia type Edema, unspecified type Procedures CONSULT TO GERIATRICS OFFICE/OUTPATIENT [facility] 60 MINUTES Mitra Landin APRN.[employer] [address] [place] [address] Referral ID Status Reason Start Date Expiration Date Visits Requested Visits Authorized [id number] Authorized PCP Requested Referral 01/09/2024 01/08/2025 1 1 Specialty Diagnoses / Procedures Referred By Contac t Referred To Contact Diagnoses Dementia without behavioral disturbance, psychotic disturbance, mood disturbance, or anxiety, unspecified dementia severity, unspecified dementia type (HCC) Akilah Pena Jr., MD [address] [place] [address] Referral ID Status Reason Start Date Expiration Date Visits Re quested Visits Authorized [id number] Closed 1 1 Specialty Diagnoses / Procedures Referred By Contac t Referred To Contact Diagnoses Type 2 diabetes mellitus with stage 3b chronic kidney disease, with long-term current use of insulin (HCC) Procedures CONSULT TO SLEEP MEDICINE - ADULT OFFICE/OUTPATIENT [facility] [address] [place] [address] [place] [address] Referral ID Status Reason Start Date Expiration Date Visits Requested Visits Authorized [id number] Authorized PCP Requested Referral 4 08/25/2025 1 1 Specialty Diagnoses / Procedures Referred By Contac t Referred To Contact Diagnoses Type 2 diabetes mellitus with stage 3b chronic kidney disease, with long-term current use of insulin (HCC) [place] [address] [place] [address] Referral ID Status Reason Start Date Expiration Date V isits Requested Visits Authorized [id number] Pending Review 1 1 Additional Source Comments INFORMATION SOURCE (unrecogn ized section and content) DATE CREATED AUTHOR 02/28/2018 [facility] DATE CREATED AUTHOR AUTHOR'S ORGANIZ ATION 02/10/[address] [facility] DATE CREATED AUTHOR AUTHOR'S ORGANIZ ATION 01/13/2024 [facility] DATE CREATED AUTHOR AUTHOR'S ORGANIZ ATION 01/13/2024 [facility] DATE CREATED AUTHOR AUTHOR'S ORGANIZ ATION 04/24/2025 [facility] DATE CREATED AUTHOR AUTHOR'S ORGANIZ ATION 04/30/2025 [facility] DATE CREATED AUTHOR AUTHOR'S ORGANIZ ATION 05/02/2025 [facility] Reason for Visit (unrecogniz ed section and content) Reason For Visit Description Postop - subsequent visit Preliminary reason f or visit data, not yet signed by the author as of right hip post right hip sco pe with excision of seroma gluteus medius and minimus repair rotium augmentation allograft augmentation trochanteric bursectomy iliotibial band resection on 09/19/2021 Reason For Visit Description Start Date Postop - subsequent visit Preliminary reason f or visit data, not yet signed by the author as of right hip post right hip sco pe with excision of seroma gluteus medius and minimus repair rotium augmentation allograft augmentation trochanteric bursectomy iliotibial band resection on 09/19/2021 Reason Onset Date Comments Community Monitoring Outreach 12/06/2021 CH F / CKD Telephonic Outreach Reason Onset Date Comments Community Monitoring Outreach 12/08/2021 CH F/ CKD Telephonic CDM Outreach Reason Comments diabetes Reason Onset Date Comments Population Health Navigation Outreach 12/22/2021 [employer] care gaps Reason Onset Date Comments Community Monitoring Outreach 12/26/2021 CH F/ CKD Telephonic CDM Outreach Reason Onset Date Comments Community Monitoring Outreach 01/11/2022 CH F/ CKD Telephonic CDM Outreach Reason Onset Date Comments Community Monitoring Outreach 01/26/2022 CH F/ CKD Telephonic CDM Outreach Reason Comments Patient Update Reason Comments [facility] safety concerns Reason Onset Date Comments Community Monitoring Outreach 02/13/2022 CH F/ CKD Telephonic CDM Outreach Reason Comments Diabetes Reason Comments Medicare Wellness Exam Reason Comments APS Question Reason Onset Date Comments Community Monitoring Outreach 03/10/2022 CH F / CKD Telephonic CDM Outreach Reason Comments Problem With Hearing Aid(s) Reason Onset Date Comments Community Monitoring Outreach 04/10/2022 CH F/ CKD Telephonic CDM Outreach Reason Onset Date Comments Community Monitoring Outreach 04/18/2022 Reason Comments Insulin Dependent Diabetes Mellitus Reason Onset Date Comments Community Monitoring Outreach 05/22/2022 Reason Comments Pain Pt reported (RT) fin john pain, x1 wk, rated 10. Reason Onset Date Comments Community Monitoring Outreach 06/26/2022 Reason Onset Date Comments Community Monitoring Outreach 07/03/2022 Reason Onset Date Comments Refill Request 07/18/2022 Reason Onset Date Comments Refill Request 07/25/2022 Reason Comments Appointment Reason Comments New Pain Reason Onset Date Comments Refill Request 08/15/2022 Reason Onset Date Comments community monitoring 08/16/2022 telephonic Reason Comments F/U 6 months Reason Onset Date Comments community monitoring 09/12/2022 telephonic Reason Onset Date Comments community monitoring 10/09/2022 CDM telepho petra Reason Onset Date Comments Refill Request 10/20/2022 Reason Comments Gout Reason Onset Date Comments [facility] monitoring 11/06/2022 CDM telepho petra Reason Comments Medication Problem Reason Onset Date Comments community monitoring 12/05/2022 CDM telepho petra Reason Onset Date Comments [facility] monitoring 12/08/2022 CDM telepho petra Reason Comments Follow Up Reason Comments GERD Specialty Diagnoses / Procedures Referred By Contac t Referred To Contact Gastroenterology Diagnoses GERD without esophagitis Dysphagia, unspecified type Procedures CONSULT TO GASTROENTEROLOGY OFFICE/OUTPATIENT [facility] 60-74 MINUTES Jesus Davila MD [address] [place] [address] Referral ID Status Reason Start Date Expiration Date V isits Requested Visits Authorized [id number] Closed PCP Requested Referral 10/24/2022 10/24/2023 1 1 Reason Comments Orders Reason Onset Date Comments community monitoring 01/05/2023 CDM telepho petra Reason Onset Date Comments Refill Request 01/08/2023 Reason Comments results/future orders mammogram Appointment Reason Comments Insulin pump start training Reason Comments Medicare Wellness Exam Reason Onset Date Comments community monitoring 03/02/2023 CDM telepho petra Reason Onset Date Comments [facility] monitoring 03/06/2023 CDM telepho petra Reason Comments Results Reason Onset Date Comments [facility] monitoring 04/04/2023 CDM telepho petra Reason Comments MSC fax Reason Comments Follow Up Dementia and ABDI Reason Onset Date Comments Refill Request 04/09/2023 Reason Comments New Specialty Diagnoses / Procedures Referred By Contac t Referred To Contact Orthopedics Diagnoses Primary osteoarthritis of both hips Procedures CONSULT TO ORTHOPAEDICS OFFICE/OUTPATIENT [facility] 60-74 MINUTES Jesus Davila MD [address] [place] [address] [facility] [address] [place] [address] Referral ID Status Reason Start Date Expiration Date V isits Requested Visits Authorized [id number] Closed PCP Requested Referral 02/22/2023 02/22/2024 1 1 Reason Comments Schedule Surgery LTHA @ on 07/16/23 Reason Onset Date Comments community monitoring 05/02/2023 CDM telepho petra Reason Onset Date Comments community monitoring 05/30/2023 CDM telepho petra Reason Onset Date Comments ER F/U Immunizations 06/20/2023 Flu vaccination Reason Onset Date Comments community monitoring 06/27/2023 CDM telepho petra 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 Reason Onset Date Comments Refill Request 07/02/2023 Reason Comments Radio Gen RMP Specialty Diagnoses / Procedures Referred By Contac t Referred To Contact XR IMAGING Diagnoses Primary osteoarthritis of both hips Procedures XR HIP BILATERAL 5V PEL/AP/LAT EACH HIP RADEX HIPS BILATERAL WITH PELVIS MINIMUM 5 VIEWS Clyde Beltran MD [address] [place] [address] [place] [address] Referral ID Status Reason Start Date Expiration Date V isits Requested Visits Authorized [id number] Closed Auto-Generate d Referral 04/16/2023 05/15/2024 1 1 Reason Onset Date Comments community monitoring 07/25/2023 CDM telepho petra Reason Comments Thyroid Problem Reason Onset Date Comments Refill Request 08/06/2023 Reason Onset Date Comments Refill Request 08/22/2023 Reason Onset Date Comments community monitoring 10/17/2023 CDM telepho petra Reason Onset Date Comments community monitoring 11/14/2023 CDM telepho petra Reason Onset Date Comments Refill Request 12/03/2023 Reason Onset Date Comments community monitoring 12/12/2023 CDM telepho petra Reason Comments Schedule Surgery LTHA @ on 01/21/20 24 Reason Comments Radiology XR Specialty Diagnoses / Procedures Referred By Contac t Referred To Contact XR IMAGING Diagnoses Primary osteoarthritis of left hip Procedures XR HIP GENERAL 3V PELV/AP/LAT LEFT RADEX HIP UNILATERAL WITH PELVIS 2-3 VIEWS Akilah Rowe PA-C [address] [place] [address] [place] [address] Referral ID Status Reason Start Date Expiration Date V isits Requested Visits Authorized [id number] Closed Auto-Generate d Referral 10/23/2023 11/21/2024 1 1 Reason Comments Follow Up Pt reported d/c Kalpesh ept x2 wks, improved mood. Reason Onset Date Comments Refill Request 01/06/2024 Reason Comments Consult Reason Onset Date Comments community monitoring 01/09/2024 CDM telepho petra Reason Comments Consult Geriatric Pre Surgic al Clearance Reason Comments Home Care Confirmation Call Reason Onset Date Comments Population Health Navigation Outreach 01/25/2024 TCM/GYANT Navigation Outreach Reason Comments Home Care PT SOC Confirmation Call Reason Comments Home Care Medication update Specialty Diagnoses / Procedures Referred By Alfredo ramires Referred To Contact HOME CARE SERVICES [facility] [address] [place] [id number] Referral ID Status Reason Start Date Expiration Date Visits Re quested Visits Authorized [id number] 1 1 Reason Onset Date Comments Refill Request 01/29/2024 Reason Onset Date Comments Transition Of Care 02/05/2024 TCM Single Ou [place] for Worsening Symptoms Reason Onset Date Comments community monitoring 02/07/2024 CDM telepho petra Reason Onset Date Comments Refill Request 02/10/2024 Reason Onset Date Comments Refill Request 03/04/2024 Reason Comments Refill Request Reason Comments Follow Up Reason Comments Cough Chest congestion x 5 days Reason Onset Date Comments community monitoring 05/02/2024 CDM telepho petra Reason Comments MSC chart note request Reason Onset Date Comments community monitoring 05/30/2024 CDM telepho petra Reason Onset Date Comments community monitoring 06/02/2024 CDM telepho petra Reason Onset Date Comments Refill Request 06/09/2024 Reason Onset Date Comments community monitoring 03/06/2024 CDM telepho petra Reason Onset Date Comments community monitoring 06/15/2024 CDM telepho petra Reason Onset Date Comments community monitoring 07/07/2024 CDM telepho petra Reason Onset Date Comments Population Health Navigation Outreach 07/10/2024 [employer] Reason Comments New Patient DEMENTIAOSAPOLYNEURO BON Reason Comments Compliance Report Reason Comments Forms Diabetic shoe form Reason Onset Date Comments Refill Request 07/31/2024 Reason Onset Date Comments community monitoring 08/05/2024 CDM telepho petra Reason Onset Date Comments Population Health Navigation Outreach 08/14/2024 [employer] Reason Onset Date Comments community monitoring 08/15/2024 CDM telepho petra Reason Comments Insulin Dependent Diabetes Mellitus Reason Comments Lab Orders Reason Onset Date Comments Refill Request 10/27/2024 Reason Comments sore in right groin area X 1 week Reason Comments Insulin Dependent Diabetes Mellitus Thyroid Cancer Reason Comments Bone density testing Reason Onset Date Comments Population Health Navigation Outreach 11/28/2024 Kamilah Colon Reason Comments Orders mammogram order Reason Onset Date Comments Refill Request 12/29/2024 Reason Comments Arthritis Fatigue Reason Comments New Primary osteoarthrit is of both shouldersRadiates across back and front of chest New Primary osteoarthrit is of both shoulders Specialty Diagnoses / Procedures Referred By Alfredo ramires Referred To Contact Orthopedics Diagnoses Primary osteoarthritis of both shoulders Procedures CONSULT TO ORTHOPAEDICS OFFICE/OUTPATIENT [facility] 60 MINUTES Jesus Davila MD [address] [place] [address] Phone: tel: fax: Referral ID Status Reason Start Date Expiration Date V isits Requested Visits Authorized [id number] Closed PCP Requested Referral 01/05/2025 01/05/2026 1 1 Reason Onset Date Comments Population Health Navigation Outreach 02/23/2025 Kamilah Colon Reason Comments Follow Up 7 month follow up Reason Onset Date Comments Refill Request 03/10/2025 Reason Comments Vaginal Problem Vaginal bleeding, mo derate blood with clots started today Reason Comments New Pain Reason Comments Appointment Post-op physical the rapy Reason Comments Preparations For Surgery Reason Onset Date Comments Refill Request 04/29/2025 Source Comments (unrecognize d section and content) In the event this informatio n is protected by the Federal Confidentiality of Alcohol and Drug Abuse Patient Records regulations: The Federal rules restrict any use of the information to criminally investigate or prosecute any alcohol or drug abuse patient.[facility] the event this information is protected by the Federal Confidentiality of Alcohol and Drug Abuse Patient Records regulations: The Federal rules restrict any use of the information to criminally investigate or prosecute any alcohol or drug abuse patient.[facility] the event this information is protected by the Federal Confidentiality of Alcohol and Drug Abuse Patient Records regulations: The Federal rules restrict any use of the information to criminally investigate or prosecute any alcohol or drug abuse patient.[facility] the event this information is protected by the Federal Confidentiality of Alcohol and Drug Abuse Patient Records regulations: The Federal rules restrict any use of the information to criminally investigate or prosecute any alcohol or drug abuse patient.[facility] the event this information is protected by the Federal Confidentiality of Alcohol and Drug Abuse Patient Records regulations: The Federal rules restrict any use of the information to criminally investigate or prosecute any alcohol or drug abuse patient.[facility] the event this information is protected by the Federal Confidentiality of Alcohol and Drug Abuse Patient Records regulations: The Federal rules restrict any use of the information to criminally investigate or prosecute any alcohol or drug abuse patient.[facility] the event this information is protected by the Federal Confidentiality of Alcohol and Drug Abuse Patient Records regulations: The Federal rules restrict any use of the information to criminally investigate or prosecute any alcohol or drug abuse patient.[facility] the event this information is protected by the Federal Confidentiality of Alcohol and Drug Abuse Patient Records regulations: The Federal rules restrict any use of the information to criminally investigate or prosecute any alcohol or drug abuse patient.[facility] the event this information is protected by the Federal Confidentiality of Alcohol and Drug Abuse Patient Records regulations: The Federal rules restrict any use of the information to criminally investigate or prosecute any alcohol or drug abuse patient.[facility] the event this information is protected by the Federal Confidentiality of Alcohol and Drug Abuse Patient Records regulations: The Federal rules restrict any use of the information to criminally investigate or prosecute any alcohol or drug abuse patient.[facility] the event this information is protected by the Federal Confidentiality of Alcohol and Drug Abuse Patient Records regulations: The Federal rules restrict any use of the information to criminally investigate or prosecute any alcohol or drug abuse patient.[facility]In the event this information is protected by the Federal Confidentiality of Alcohol and Drug Abuse Patient Records regulations: The Federal rules restrict any use of the information to criminally investigate or prosecute any alcohol or drug abuse patient.[facility] the event this information is protected by the Federal Confidentiality of Alcohol and Drug Abuse Patient Records regulations: The Federal rules restrict any use of the information to criminally investigate or prosecute any alcohol or drug abuse patient.[facility] the event this information is protected by the Federal Confidentiality of Alcohol and Drug Abuse Patient Records regulations: The Federal rules restrict any use of the information to criminally investigate or prosecute any alcohol or drug abuse patient.[facility]In the event this information is protected by the Federal Confidentiality of Alcohol and Drug Abuse Patient Records regulations: The Federal rules restrict any use of the information to criminally investigate or prosecute any alcohol or drug abuse patient.[facility]In the event this information is protected by the Federal Confidentiality of Alcohol and Drug Abuse Patient Records regulations: The Federal rules restrict any use of the information to criminally investigate or prosecute any alcohol or drug abuse patient.[facility]In the event this information is protected by the Federal Confidentiality of Alcohol and Drug Abuse Patient Records regulations: The Federal rules restrict any use of the information to criminally investigate or prosecute any alcohol or drug abuse patient.[facility]In the event this information is protected by the Federal Confidentiality of Alcohol and Drug Abuse Patient Records regulations: The Federal rules restrict any use of the information to criminally investigate or prosecute any alcohol or drug abuse patient.[facility]In the event this information is protected by the Federal Confidentiality of Alcohol and Drug Abuse Patient Records regulations: The Federal rules restrict any use of the information to criminally investigate or prosecute any alcohol or drug abuse patient.[facility]In the event this information is protected by the Federal Confidentiality of Alcohol and Drug Abuse Patient Records regulations: The Federal rules restrict any use of the information to criminally investigate or prosecute any alcohol or drug abuse patient.[facility]In the event this information is protected by the Federal Confidentiality of Alcohol and Drug Abuse Patient Records regulations: The Federal rules restrict any use of the information to criminally investigate or prosecute any alcohol or drug abuse patient.[facility]In the event this information is protected by the Federal Confidentiality of Alcohol and Drug Abuse Patient Records regulations: The Federal rules restrict any use of the information to criminally investigate or prosecute any alcohol or drug abuse patient.[facility]In the event this information is protected by the Federal Confidentiality of Alcohol and Drug Abuse Patient Records regulations: The Federal rules restrict any use of the information to criminally investigate or prosecute any alcohol or drug abuse patient.[facility]In the event this information is protected by the Federal Confidentiality of Alcohol and Drug Abuse Patient Records regulations: The Federal rules restrict any use of the information to criminally investigate or prosecute any alcohol or drug abuse patient.[facility]In the event this information is protected by the Federal Confidentiality of Alcohol and Drug Abuse Patient Records regulations: The Federal rules restrict any use of the information to criminally investigate or prosecute any alcohol or drug abuse patient.[facility]In the event this information is protected by the Federal Confidentiality of Alcohol and Drug Abuse Patient Records regulations: The Federal rules restrict any use of the information to criminally investigate or prosecute any alcohol or drug abuse patient.[facility]In the event this information is protected by the Federal Confidentiality of Alcohol and Drug Abuse Patient Records regulations: The Federal rules restrict any use of the information to criminally investigate or prosecute any alcohol or drug abuse patient.[facility]In the event this information is protected by the Federal Confidentiality of Alcohol and Drug Abuse Patient Records regulations: The Federal rules restrict any use of the information to criminally investigate or prosecute any alcohol or drug abuse patient.[facility]In the event this information is protected by the Federal Confidentiality of Alcohol and Drug Abuse Patient Records regulations: The Federal rules restrict any use of the information to criminally investigate or prosecute any alcohol or drug abuse patient.[facility]In the event this information is protected by the Federal Confidentiality of Alcohol and Drug Abuse Patient Records regulations: The Federal rules restrict any use of the information to criminally investigate or prosecute any alcohol or drug abuse patient.[facility]In the event this information is protected by the Federal Confidentiality of Alcohol and Drug Abuse Patient Records regulations: The Federal rules restrict any use of the information to criminally investigate or prosecute any alcohol or drug abuse patient.[facility]In the event this information is protected by the Federal Confidentiality of Alcohol and Drug Abuse Patient Records regulations: The Federal rules restrict any use of the information to criminally investigate or prosecute any alcohol or drug abuse patient.[facility]In the event this information is protected by the Federal Confidentiality of Alcohol and Drug Abuse Patient Records regulations: The Federal rules restrict any use of the information to criminally investigate or prosecute any alcohol or drug abuse patient.[facility]In the event this information is protected by the Federal Confidentiality of Alcohol and Drug Abuse Patient Records regulations: The Federal rules restrict any use of the information to criminally investigate or prosecute any alcohol or drug abuse patient.[facility]In the event this information is protected by the Federal Confidentiality of Alcohol and Drug Abuse Patient Records regulations: The Federal rules restrict any use of the information to criminally investigate or prosecute any alcohol or drug abuse patient.[facility]In the event this information is protected by the Federal Confidentiality of Alcohol and Drug Abuse Patient Records regulations: The Federal rules restrict any use of the information to criminally investigate or prosecute any alcohol or drug abuse patient.[facility]In the event this information is protected by the Federal Confidentiality of Alcohol and Drug Abuse Patient Records regulations: The Federal rules restrict any use of the information to criminally investigate or prosecute any alcohol or drug abuse patient.[facility]In the event this information is protected by the Federal Confidentiality of Alcohol and Drug Abuse Patient Records regulations: The Federal rules restrict any use of the information to criminally investigate or prosecute any alcohol or drug abuse patient.[facility]In the event this information is protected by the Federal Confidentiality of Alcohol and Drug Abuse Patient Records regulations: The Federal rules restrict any use of the information to criminally investigate or prosecute any alcohol or drug abuse patient.[facility]In the event this information is protected by the Federal Confidentiality of Alcohol and Drug Abuse Patient Records regulations: The Federal rules restrict any use of the information to criminally investigate or prosecute any alcohol or drug abuse patient.[facility]In the event this information is protected by the Federal Confidentiality of Alcohol and Drug Abuse Patient Records regulations: The Federal rules restrict any use of the information to criminally investigate or prosecute any alcohol or drug abuse patient.[facility]In the event this information is protected by the Federal Confidentiality of Alcohol and Drug Abuse Patient Records regulations: The Federal rules restrict any use of the information to criminally investigate or prosecute any alcohol or drug abuse patient.[facility]In the event this information is protected by the Federal Confidentiality of Alcohol and Drug Abuse Patient Records regulations: The Federal rules restrict any use of the information to criminally investigate or prosecute any alcohol or drug abuse patient.[facility]In the event this information is protected by the Federal Confidentiality of Alcohol and Drug Abuse Patient Records regulations: The Federal rules restrict any use of the information to criminally investigate or prosecute any alcohol or drug abuse patient.[facility] HospitalIn the event this information is protected by the Federal Confidentiality of Alcohol and Drug Abuse Patient Records regulations: The Federal rules restrict any use of the information to criminally investigate or prosecute any alcohol or drug abuse patient.[facility] HospitalIn the event this information is protected by the Federal Confidentiality of Alcohol and Drug Abuse Patient Records regulations: The Federal rules restrict any use of the information to criminally investigate or prosecute any alcohol or drug abuse patient.[facility] HospitalIn the event this information is protected by the Federal Confidentiality of Alcohol and Drug Abuse Patient Records regulations: The Federal rules restrict any use of the information to criminally investigate or prosecute any alcohol or drug abuse patient.[facility]In the event this information is protected by the Federal Confidentiality of Alcohol and Drug Abuse Patient Records regulations: The Federal rules restrict any use of the information to criminally investigate or prosecute any alcohol or drug abuse patient.[facility]In the event this information is protected by the Federal Confidentiality of Alcohol and Drug Abuse Patient Records regulations: The Federal rules restrict any use of the information to criminally investigate or prosecute any alcohol or drug abuse patient.[facility]In the event this information is protected by the Federal Confidentiality of Alcohol and Drug Abuse Patient Records regulations: The Federal rules restrict any use of the information to criminally investigate or prosecute any alcohol or drug abuse patient.[facility]In the event this information is protected by the Federal Confidentiality of Alcohol and Drug Abuse Patient Records regulations: The Federal rules restrict any use of the information to criminally investigate or prosecute any alcohol or drug abuse patient.[facility] HospitalIn the event this information is protected by the Federal Confidentiality of Alcohol and Drug Abuse Patient Records regulations: The Federal rules restrict any use of the information to criminally investigate or prosecute any alcohol or drug abuse patient.[facility] the event this information is protected by the Federal Confidentiality of Alcohol and Drug Abuse Patient Records regulations: The Federal rules restrict any use of the information to criminally investigate or prosecute any alcohol or drug abuse patient.[facility]In the event this information is protected by the Federal Confidentiality of Alcohol and Drug Abuse Patient Records regulations: The Federal rules restrict any use of the information to criminally investigate or prosecute any alcohol or drug abuse patient.[facility]In the event this information is protected by the Federal Confidentiality of Alcohol and Drug Abuse Patient Records regulations: The Federal rules restrict any use of the information to criminally investigate or prosecute any alcohol or drug abuse patient.[facility] the event this information is protected by the Federal Confidentiality of Alcohol and Drug Abuse Patient Records regulations: The Federal rules restrict any use of the information to criminally investigate or prosecute any alcohol or drug abuse patient.[facility]In the event this information is protected by the Federal Confidentiality of Alcohol and Drug Abuse Patient Records regulations: The Federal rules restrict any use of the information to criminally investigate or prosecute any alcohol or drug abuse patient.[facility]In the event this information is protected by the Federal Confidentiality of Alcohol and Drug Abuse Patient Records regulations: The Federal rules restrict any use of the information to criminally investigate or prosecute any alcohol or drug abuse patient.[facility]In the event this information is protected by the Federal Confidentiality of Alcohol and Drug Abuse Patient Records regulations: The Federal rules restrict any use of the information to criminally investigate or prosecute any alcohol or drug abuse patient.[facility]In the event this information is protected by the Federal Confidentiality of Alcohol and Drug Abuse Patient Records regulations: The Federal rules restrict any use of the information to criminally investigate or prosecute any alcohol or drug abuse patient.[facility]In the event this information is protected by the Federal Confidentiality of Alcohol and Drug Abuse Patient Records regulations: The Federal rules restrict any use of the information to criminally investigate or prosecute any alcohol or drug abuse patient.[facility]In the event this information is protected by the Federal Confidentiality of Alcohol and Drug Abuse Patient Records regulations: The Federal rules restrict any use of the information to criminally investigate or prosecute any alcohol or drug abuse patient.[facility]In the event this information is protected by the Federal Confidentiality of Alcohol and Drug Abuse Patient Records regulations: The Federal rules restrict any use of the information to criminally investigate or prosecute any alcohol or drug abuse patient.[facility]In the event this information is protected by the Federal Confidentiality of Alcohol and Drug Abuse Patient Records regulations: The Federal rules restrict any use of the information to criminally investigate or prosecute any alcohol or drug abuse patient.[facility] HospitalIn the event this information is protected by the Federal Confidentiality of Alcohol and Drug Abuse Patient Records regulations: The Federal rules restrict any use of the information to criminally investigate or prosecute any alcohol or drug abuse patient.[facility]In the event this information is protected by the Federal Confidentiality of Alcohol and Drug Abuse Patient Records regulations: The Federal rules restrict any use of the information to criminally investigate or prosecute any alcohol or drug abuse patient.[facility]In the event this information is protected by the Federal Confidentiality of Alcohol and Drug Abuse Patient Records regulations: The Federal rules restrict any use of the information to criminally investigate or prosecute any alcohol or drug abuse patient.[facility]In the event this information is protected by the Federal Confidentiality of Alcohol and Drug Abuse Patient Records regulations: The Federal rules restrict any use of the information to criminally investigate or prosecute any alcohol or drug abuse patient.[facility]In the event this information is protected by the Federal Confidentiality of Alcohol and Drug Abuse Patient Records regulations: The Federal rules restrict any use of the information to criminally investigate or prosecute any alcohol or drug abuse patient.[facility]In the event this information is protected by the Federal Confidentiality of Alcohol and Drug Abuse Patient Records regulations: The Federal rules restrict any use of the information to criminally investigate or prosecute any alcohol or drug abuse patient.[facility]In the event this information is protected by the Federal Confidentiality of Alcohol and Drug Abuse Patient Records regulations: The Federal rules restrict any use of the information to criminally investigate or prosecute any alcohol or drug abuse patient.[facility]In the event this information is protected by the Federal Confidentiality of Alcohol and Drug Abuse Patient Records regulations: The Federal rules restrict any use of the information to criminally investigate or prosecute any alcohol or drug abuse patient.[facility]In the event this information is protected by the Federal Confidentiality of Alcohol and Drug Abuse Patient Records regulations: The Federal rules restrict any use of the information to criminally investigate or prosecute any alcohol or drug abuse patient.[facility]In the event this information is protected by the Federal Confidentiality of Alcohol and Drug Abuse Patient Records regulations: The Federal rules restrict any use of the information to criminally investigate or prosecute any alcohol or drug abuse patient.[facility]In the event this information is protected by the Federal Confidentiality of Alcohol and Drug Abuse Patient Records regulations: The Federal rules restrict any use of the information to criminally investigate or prosecute any alcohol or drug abuse patient.[facility] HospitalIn the event this information is protected by the Federal Confidentiality of Alcohol and Drug Abuse Patient Records regulations: The Federal rules restrict any use of the information to criminally investigate or prosecute any alcohol or drug abuse patient.[facility]In the event this information is protected by the Federal Confidentiality of Alcohol and Drug Abuse Patient Records regulations: The Federal rules restrict any use of the information to criminally investigate or prosecute any alcohol or drug abuse patient.[facility] HospitalIn the event this information is protected by the Federal Confidentiality of Alcohol and Drug Abuse Patient Records regulations: The Federal rules restrict any use of the information to criminally investigate or prosecute any alcohol or drug abuse patient.[facility]In the event this information is protected by the Federal Confidentiality of Alcohol and Drug Abuse Patient Records regulations: The Federal rules restrict any use of the information to criminally investigate or prosecute any alcohol or drug abuse patient.[facility] HospitalIn the event this information is protected by the Federal Confidentiality of Alcohol and Drug Abuse Patient Records regulations: The Federal rules restrict any use of the information to criminally investigate or prosecute any alcohol or drug abuse patient.[facility]In the event this information is protected by the Federal Confidentiality of Alcohol and Drug Abuse Patient Records regulations: The Federal rules restrict any use of the information to criminally investigate or prosecute any alcohol or drug abuse patient.[facility]In the event this information is protected by the Federal Confidentiality of Alcohol and Drug Abuse Patient Records regulations: The Federal rules restrict any use of the information to criminally investigate or prosecute any alcohol or drug abuse patient.[facility]In the event this information is protected by the Federal Confidentiality of Alcohol and Drug Abuse Patient Records regulations: The Federal rules restrict any use of the information to criminally investigate or prosecute any alcohol or drug abuse patient.[facility]In the event this information is protected by the Federal Confidentiality of Alcohol and Drug Abuse Patient Records regulations: The Federal rules restrict any use of the information to criminally investigate or prosecute any alcohol or drug abuse patient.[facility] HospitalIn the event this information is protected by the Federal Confidentiality of Alcohol and Drug Abuse Patient Records regulations: The Federal rules restrict any use of the information to criminally investigate or prosecute any alcohol or drug abuse patient.[facility]In the event this information is protected by the Federal Confidentiality of Alcohol and Drug Abuse Patient Records regulations: The Federal rules restrict any use of the information to criminally investigate or prosecute any alcohol or drug abuse patient.[facility]In the event this information is protected by the Federal Confidentiality of Alcohol and Drug Abuse Patient Records regulations: The Federal rules restrict any use of the information to criminally investigate or prosecute any alcohol or drug abuse patient.[facility]In the event this information is protected by the Federal Confidentiality of Alcohol and Drug Abuse Patient Records regulations: The Federal rules restrict any use of the information to criminally investigate or prosecute any alcohol or drug abuse patient.[facility] HospitalIn the event this information is protected by the Federal Confidentiality of Alcohol and Drug Abuse Patient Records regulations: The Federal rules restrict any use of the information to criminally investigate or prosecute any alcohol or drug abuse patient.[facility]In the event this information is protected by the Federal Confidentiality of Alcohol and Drug Abuse Patient Records regulations: The Federal rules restrict any use of the information to criminally investigate or prosecute any alcohol or drug abuse patient.[facility] HospitalIn the event this information is protected by the Federal Confidentiality of Alcohol and Drug Abuse Patient Records regulations: The Federal rules restrict any use of the information to criminally investigate or prosecute any alcohol or drug abuse patient.[facility]In the event this information is protected by the Federal Confidentiality of Alcohol and Drug Abuse Patient Records regulations: The Federal rules restrict any use of the information to criminally investigate or prosecute any alcohol or drug abuse patient.[facility]In the event this information is protected by the Federal Confidentiality of Alcohol and Drug Abuse Patient Records regulations: The Federal rules restrict any use of the information to criminally investigate or prosecute any alcohol or drug abuse patient.[facility] HospitalIn the event this information is protected by the Federal Confidentiality of Alcohol and Drug Abuse Patient Records regulations: The Federal rules restrict any use of the information to criminally investigate or prosecute any alcohol or drug abuse patient.[facility] HospitalIn the event this information is protected by the Federal Confidentiality of Alcohol and Drug Abuse Patient Records regulations: The Federal rules restrict any use of the information to criminally investigate or prosecute any alcohol or drug abuse patient.[facility] HospitalIn the event this information is protected by the Federal Confidentiality of Alcohol and Drug Abuse Patient Records regulations: The Federal rules restrict any use of the information to criminally investigate or prosecute any alcohol or drug abuse patient.[facility]In the event this information is protected by the Federal Confidentiality of Alcohol and Drug Abuse Patient Records regulations: The Federal rules restrict any use of the information to criminally investigate or prosecute any alcohol or drug abuse patient.[facility] HospitalIn the event this information is protected by the Federal Confidentiality of Alcohol and Drug Abuse Patient Records regulations: The Federal rules restrict any use of the information to criminally investigate or prosecute any alcohol or drug abuse patient.[facility] HospitalIn the event this information is protected by the Federal Confidentiality of Alcohol and Drug Abuse Patient Records regulations: The Federal rules restrict any use of the information to criminally investigate or prosecute any alcohol or drug abuse patient.[facility] HospitalIn the event this information is protected by the Federal Confidentiality of Alcohol and Drug Abuse Patient Records regulations: The Federal rules restrict any use of the information to criminally investigate or prosecute any alcohol or drug abuse patient.[facility] HospitalIn the event this information is protected by the Federal Confidentiality of Alcohol and Drug Abuse Patient Records regulations: The Federal rules restrict any use of the information to criminally investigate or prosecute any alcohol or drug abuse patient.[facility] HospitalIn the event this information is protected by the Federal Confidentiality of Alcohol and Drug Abuse Patient Records regulations: The Federal rules restrict any use of the information to criminally investigate or prosecute any alcohol or drug abuse patient.[facility] the event this information is protected by the Federal Confidentiality of Alcohol and Drug Abuse Patient Records regulations: The Federal rules restrict any use of the information to criminally investigate or prosecute any alcohol or drug abuse patient.[facility] HospitalIn the event this information is protected by the Federal Confidentiality of Alcohol and Drug Abuse Patient Records regulations: The Federal rules restrict any use of the information to criminally investigate or prosecute any alcohol or drug abuse patient.[facility]In the event this information is protected by the Federal Confidentiality of Alcohol and Drug Abuse Patient Records regulations: The Federal rules restrict any use of the information to criminally investigate or prosecute any alcohol or drug abuse patient.[facility]In the event this information is protected by the Federal Confidentiality of Alcohol and Drug Abuse Patient Records regulations: The Federal rules restrict any use of the information to criminally investigate or prosecute any alcohol or drug abuse patient.[facility]In the event this information is protected by the Federal Confidentiality of Alcohol and Drug Abuse Patient Records regulations: The Federal rules restrict any use of the information to criminally investigate or prosecute any alcohol or drug abuse patient.[facility] HospitalIn the event this information is protected by the Federal Confidentiality of Alcohol and Drug Abuse Patient Records regulations: The Federal rules restrict any use of the information to criminally investigate or prosecute any alcohol or drug abuse patient.[facility]In the event this information is protected by the Federal Confidentiality of Alcohol and Drug Abuse Patient Records regulations: The Federal rules restrict any use of the information to criminally investigate or prosecute any alcohol or drug abuse patient.[facility]In the event this information is protected by the Federal Confidentiality of Alcohol and Drug Abuse Patient Records regulations: The Federal rules restrict any use of the information to criminally investigate or prosecute any alcohol or drug abuse patient.[facility]In the event this information is protected by the Federal Confidentiality of Alcohol and Drug Abuse Patient Records regulations: The Federal rules restrict any use of the information to criminally investigate or prosecute any alcohol or drug abuse patient.[facility]In the event this information is protected by the Federal Confidentiality of Alcohol and Drug Abuse Patient Records regulations: The Federal rules restrict any use of the information to criminally investigate or prosecute any alcohol or drug abuse patient.[facility] HospitalIn the event this information is protected by the Federal Confidentiality of Alcohol and Drug Abuse Patient Records regulations: The Federal rules restrict any use of the information to criminally investigate or prosecute any alcohol or drug abuse patient.[facility]In the event this information is protected by the Federal Confidentiality of Alcohol and Drug Abuse Patient Records regulations: The Federal rules restrict any use of the information to criminally investigate or prosecute any alcohol or drug abuse patient.[facility]In the event this information is protected by the Federal Confidentiality of Alcohol and Drug Abuse Patient Records regulations: The Federal rules restrict any use of the information to criminally investigate or prosecute any alcohol or drug abuse patient.[facility]In the event this information is protected by the Federal Confidentiality of Alcohol and Drug Abuse Patient Records regulations: The Federal rules restrict any use of the information to criminally investigate or prosecute any alcohol or drug abuse patient.[facility]In the event this information is protected by the Federal Confidentiality of Alcohol and Drug Abuse Patient Records regulations: The Federal rules restrict any use of the information to criminally investigate or prosecute any alcohol or drug abuse patient.[facility]In the event this information is protected by the Federal Confidentiality of Alcohol and Drug Abuse Patient Records regulations: The Federal rules restrict any use of the information to criminally investigate or prosecute any alcohol or drug abuse patient.[facility]In the event this information is protected by the Federal Confidentiality of Alcohol and Drug Abuse Patient Records regulations: The Federal rules restrict any use of the information to criminally investigate or prosecute any alcohol or drug abuse patient.[facility]In the event this information is protected by the Federal Confidentiality of Alcohol and Drug Abuse Patient Records regulations: The Federal rules restrict any use of the information to criminally investigate or prosecute any alcohol or drug abuse patient.[facility]In the event this information is protected by the Federal Confidentiality of Alcohol and Drug Abuse Patient Records regulations: The Federal rules restrict any use of the information to criminally investigate or prosecute any alcohol or drug abuse patient.[facility]In the event this information is protected by the Federal Confidentiality of Alcohol and Drug Abuse Patient Records regulations: The Federal rules restrict any use of the information to criminally investigate or prosecute any alcohol or drug abuse patient.[facility]In the event this information is protected by the Federal Confidentiality of Alcohol and Drug Abuse Patient Records regulations: The Federal rules restrict any use of the information to criminally investigate or prosecute any alcohol or drug abuse patient.[facility]In the event this information is protected by the Federal Confidentiality of Alcohol and Drug Abuse Patient Records regulations: The Federal rules restrict any use of the information to criminally investigate or prosecute any alcohol or drug abuse patient.[facility]In the event this information is protected by the Federal Confidentiality of Alcohol and Drug Abuse Patient Records regulations: The Federal rules restrict any use of the information to criminally investigate or prosecute any alcohol or drug abuse patient.[facility]In the event this information is protected by the Federal Confidentiality of Alcohol and Drug Abuse Patient Records regulations: The Federal rules restrict any use of the information to criminally investigate or prosecute any alcohol or drug abuse patient.[facility]In the event this information is protected by the Federal Confidentiality of Alcohol and Drug Abuse Patient Records regulations: The Federal rules restrict any use of the information to criminally investigate or prosecute any alcohol or drug abuse patient.[facility]In the event this information is protected by the Federal Confidentiality of Alcohol and Drug Abuse Patient Records regulations: The Federal rules restrict any use of the information to criminally investigate or prosecute any alcohol or drug abuse patient.[facility]In the event this information is protected by the Federal Confidentiality of Alcohol and Drug Abuse Patient Records regulations: The Federal rules restrict any use of the information to criminally investigate or prosecute any alcohol or drug abuse patient.[facility]In the event this information is protected by the Federal Confidentiality of Alcohol and Drug Abuse Patient Records regulations: The Federal rules restrict any use of the information to criminally investigate or prosecute any alcohol or drug abuse patient.[facility]In the event this information is protected by the Federal Confidentiality of Alcohol and Drug Abuse Patient Records regulations: The Federal rules restrict any use of the information to criminally investigate or prosecute any alcohol or drug abuse patient.[facility]In the event this information is protected by the Federal Confidentiality of Alcohol and Drug Abuse Patient Records regulations: The Federal rules restrict any use of the information to criminally investigate or prosecute any alcohol or drug abuse patient.[facility]In the event this information is protected by the Federal Confidentiality of Alcohol and Drug Abuse Patient Records regulations: The Federal rules restrict any use of the information to criminally investigate or prosecute any alcohol or drug abuse patient.[facility] HospitalIn the event this information is protected by the Federal Confidentiality of Alcohol and Drug Abuse Patient Records regulations: The Federal rules restrict any use of the information to criminally investigate or prosecute any alcohol or drug abuse patient.[facility] the event this information is protected by the Federal Confidentiality of Alcohol and Drug Abuse Patient Records regulations: The Federal rules restrict any use of the information to criminally investigate or prosecute any alcohol or drug abuse patient.[facility]In the event this information is protected by the Federal Confidentiality of Alcohol and Drug Abuse Patient Records regulations: The Federal rules restrict any use of the information to criminally investigate or prosecute any alcohol or drug abuse patient.[facility]In the event this information is protected by the Federal Confidentiality of Alcohol and Drug Abuse Patient Records regulations: The Federal rules restrict any use of the information to criminally investigate or prosecute any alcohol or drug abuse patient.[facility]In the event this information is protected by the Federal Confidentiality of Alcohol and Drug Abuse Patient Records regulations: The Federal rules restrict any use of the information to criminally investigate or prosecute any alcohol or drug abuse patient.[facility]In the event this information is protected by the Federal Confidentiality of Alcohol and Drug Abuse Patient Records regulations: The Federal rules restrict any use of the information to criminally investigate or prosecute any alcohol or drug abuse patient.[facility]In the event this information is protected by the Federal Confidentiality of Alcohol and Drug Abuse Patient Records regulations: The Federal rules restrict any use of the information to criminally investigate or prosecute any alcohol or drug abuse patient.[facility]In the event this information is protected by the Federal Confidentiality of Alcohol and Drug Abuse Patient Records regulations: The Federal rules restrict any use of the information to criminally investigate or prosecute any alcohol or drug abuse patient.[facility]In the event this information is protected by the Federal Confidentiality of Alcohol and Drug Abuse Patient Records regulations: The Federal rules restrict any use of the information to criminally investigate or prosecute any alcohol or drug abuse patient.[facility]In the event this information is protected by the Federal Confidentiality of Alcohol and Drug Abuse Patient Records regulations: The Federal rules restrict any use of the information to criminally investigate or prosecute any alcohol or drug abuse patient.[facility]In the event this information is protected by the Federal Confidentiality of Alcohol and Drug Abuse Patient Records regulations: The Federal rules restrict any use of the information to criminally investigate or prosecute any alcohol or drug abuse patient.[facility]In the event this information is protected by the Federal Confidentiality of Alcohol and Drug Abuse Patient Records regulations: The Federal rules restrict any use of the information to criminally investigate or prosecute any alcohol or drug abuse patient.[facility]In the event this information is protected by the Federal Confidentiality of Alcohol and Drug Abuse Patient Records regulations: The Federal rules restrict any use of the information to criminally investigate or prosecute any alcohol or drug abuse patient.[facility]In the event this information is protected by the Federal Confidentiality of Alcohol and Drug Abuse Patient Records regulations: The Federal rules restrict any use of the information to criminally investigate or prosecute any alcohol or drug abuse patient.[facility]In the event this information is protected by the Federal Confidentiality of Alcohol and Drug Abuse Patient Records regulations: The Federal rules restrict any use of the information to criminally investigate or prosecute any alcohol or drug abuse patient.[facility]In the event this information is protected by the Federal Confidentiality of Alcohol and Drug Abuse Patient Records regulations: The Federal rules restrict any use of the information to criminally investigate or prosecute any alcohol or drug abuse patient.[facility]In the event this information is protected by the Federal Confidentiality of Alcohol and Drug Abuse Patient Records regulations: The Federal rules restrict any use of the information to criminally investigate or prosecute any alcohol or drug abuse patient.[facility]In the event this information is protected by the Federal Confidentiality of Alcohol and Drug Abuse Patient Records regulations: The Federal rules restrict any use of the information to criminally investigate or prosecute any alcohol or drug abuse patient.[facility] HospitalIn the event this information is protected by the Federal Confidentiality of Alcohol and Drug Abuse Patient Records regulations: The Federal rules restrict any use of the information to criminally investigate or prosecute any alcohol or drug abuse patient.[facility] the event this information is protected by the Federal Confidentiality of Alcohol and Drug Abuse Patient Records regulations: The Federal rules restrict any use of the information to criminally investigate or prosecute any alcohol or drug abuse patient.[facility]In the event this information is protected by the Federal Confidentiality of Alcohol and Drug Abuse Patient Records regulations: The Federal rules restrict any use of the information to criminally investigate or prosecute any alcohol or drug abuse patient.[facility]In the event this information is protected by the Federal Confidentiality of Alcohol and Drug Abuse Patient Records regulations: The Federal rules restrict any use of the information to criminally investigate or prosecute any alcohol or drug abuse patient.[facility] the event this information is protected by the Federal Confidentiality of Alcohol and Drug Abuse Patient Records regulations: The Federal rules restrict any use of the information to criminally investigate or prosecute any alcohol or drug abuse patient.[facility]In the event this information is protected by the Federal Confidentiality of Alcohol and Drug Abuse Patient Records regulations: The Federal rules restrict any use of the information to criminally investigate or prosecute any alcohol or drug abuse patient.[facility]In the event this information is protected by the Federal Confidentiality of Alcohol and Drug Abuse Patient Records regulations: The Federal rules restrict any use of the information to criminally investigate or prosecute any alcohol or drug abuse patient.[facility]In the event this information is protected by the Federal Confidentiality of Alcohol and Drug Abuse Patient Records regulations: The Federal rules restrict any use of the information to criminally investigate or prosecute any alcohol or drug abuse patient.[facility]In the event this information is protected by the Federal Confidentiality of Alcohol and Drug Abuse Patient Records regulations: The Federal rules restrict any use of the information to criminally investigate or prosecute any alcohol or drug abuse patient.[facility]In the event this information is protected by the Federal Confidentiality of Alcohol and Drug Abuse Patient Records regulations: The Federal rules restrict any use of the information to criminally investigate or prosecute any alcohol or drug abuse patient.[facility]In the event this information is protected by the Federal Confidentiality of Alcohol and Drug Abuse Patient Records regulations: The Federal rules restrict any use of the information to criminally investigate or prosecute any alcohol or drug abuse patient.[facility]In the event this information is protected by the Federal Confidentiality of Alcohol and Drug Abuse Patient Records regulations: The Federal rules restrict any use of the information to criminally investigate or prosecute any alcohol or drug abuse patient.[facility]In the event this information is protected by the Federal Confidentiality of Alcohol and Drug Abuse Patient Records regulations: The Federal rules restrict any use of the information to criminally investigate or prosecute any alcohol or drug abuse patient.[facility]In the event this information is protected by the Federal Confidentiality of Alcohol and Drug Abuse Patient Records regulations: The Federal rules restrict any use of the information to criminally investigate or prosecute any alcohol or drug abuse patient.[facility]In the event this information is protected by the Federal Confidentiality of Alcohol and Drug Abuse Patient Records regulations: The Federal rules restrict any use of the information to criminally investigate or prosecute any alcohol or drug abuse patient.[facility]In the event this information is protected by the Federal Confidentiality of Alcohol and Drug Abuse Patient Records regulations: The Federal rules restrict any use of the information to criminally investigate or prosecute any alcohol or drug abuse patient.[facility]In the event this information is protected by the Federal Confidentiality of Alcohol and Drug Abuse Patient Records regulations: The Federal rules restrict any use of the information to criminally investigate or prosecute any alcohol or drug abuse patient.[facility]In the event this information is protected by the Federal Confidentiality of Alcohol and Drug Abuse Patient Records regulations: The Federal rules restrict any use of the information to criminally investigate or prosecute any alcohol or drug abuse patient.[facility]In the event this information is protected by the Federal Confidentiality of Alcohol and Drug Abuse Patient Records regulations: The Federal rules restrict any use of the information to criminally investigate or prosecute any alcohol or drug abuse patient.[facility]In the event this information is protected by the Federal Confidentiality of Alcohol and Drug Abuse Patient Records regulations: The Federal rules restrict any use of the information to criminally investigate or prosecute any alcohol or drug abuse patient.[facility]In the event this information is protected by the Federal Confidentiality of Alcohol and Drug Abuse Patient Records regulations: The Federal rules restrict any use of the information to criminally investigate or prosecute any alcohol or drug abuse patient.[facility]In the event this information is protected by the Federal Confidentiality of Alcohol and Drug Abuse Patient Records regulations: The Federal rules restrict any use of the information to criminally investigate or prosecute any alcohol or drug abuse patient.[facility]In the event this information is protected by the Federal Confidentiality of Alcohol and Drug Abuse Patient Records regulations: The Federal rules restrict any use of the information to criminally investigate or prosecute any alcohol or drug abuse patient.[facility]In the event this information is protected by the Federal Confidentiality of Alcohol and Drug Abuse Patient Records regulations: The Federal rules restrict any use of the information to criminally investigate or prosecute any alcohol or drug abuse patient.[facility]In the event this information is protected by the Federal Confidentiality of Alcohol and Drug Abuse Patient Records regulations: The Federal rules restrict any use of the information to criminally investigate or prosecute any alcohol or drug abuse patient.[facility]In the event this information is protected by the Federal Confidentiality of Alcohol and Drug Abuse Patient Records regulations: The Federal rules restrict any use of the information to criminally investigate or prosecute any alcohol or drug abuse patient.[facility]In the event this information is protected by the Federal Confidentiality of Alcohol and Drug Abuse Patient Records regulations: The Federal rules restrict any use of the information to criminally investigate or prosecute any alcohol or drug abuse patient.[facility]In the event this information is protected by the Federal Confidentiality of Alcohol and Drug Abuse Patient Records regulations: The Federal rules restrict any use of the information to criminally investigate or prosecute any alcohol or drug abuse patient.[facility]In the event this information is protected by the Federal Confidentiality of Alcohol and Drug Abuse Patient Records regulations: The Federal rules restrict any use of the information to criminally investigate or prosecute any alcohol or drug abuse patient.[facility]In the event this information is protected by the Federal Confidentiality of Alcohol and Drug Abuse Patient Records regulations: The Federal rules restrict any use of the information to criminally investigate or prosecute any alcohol or drug abuse patient.[facility]In the event this information is protected by the Federal Confidentiality of Alcohol and Drug Abuse Patient Records regulations: The Federal rules restrict any use of the information to criminally investigate or prosecute any alcohol or drug abuse patient.[facility]In the event this information is protected by the Federal Confidentiality of Alcohol and Drug Abuse Patient Records regulations: The Federal rules restrict any use of the information to criminally investigate or prosecute any alcohol or drug abuse patient.[facility]In the event this information is protected by the Federal Confidentiality of Alcohol and Drug Abuse Patient Records regulations: The Federal rules restrict any use of the information to criminally investigate or prosecute any alcohol or drug abuse patient.[facility]In the event this information is protected by the Federal Confidentiality of Alcohol and Drug Abuse Patient Records regulations: The Federal rules restrict any use of the information to criminally investigate or prosecute any alcohol or drug abuse patient.[facility]In the event this information is protected by the Federal Confidentiality of Alcohol and Drug Abuse Patient Records regulations: The Federal rules restrict any use of the information to criminally investigate or prosecute any alcohol or drug abuse patient.[facility]In the event this information is protected by the Federal Confidentiality of Alcohol and Drug Abuse Patient Records regulations: The Federal rules restrict any use of the information to criminally investigate or prosecute any alcohol or drug abuse patient.[facility]In the event this information is protected by the Federal Confidentiality of Alcohol and Drug Abuse Patient Records regulations: The Federal rules restrict any use of the information to criminally investigate or prosecute any alcohol or drug abuse patient.[facility]In the event this information is protected by the Federal Confidentiality of Alcohol and Drug Abuse Patient Records regulations: The Federal rules restrict any use of the information to criminally investigate or prosecute any alcohol or drug abuse patient.[facility]In the event this information is protected by the Federal Confidentiality of Alcohol and Drug Abuse Patient Records regulations: The Federal rules restrict any use of the information to criminally investigate or prosecute any alcohol or drug abuse patient.[facility]In the event this information is protected by the Federal Confidentiality of Alcohol and Drug Abuse Patient Records regulations: The Federal rules restrict any use of the information to criminally investigate or prosecute any alcohol or drug abuse patient.[facility]In the event this information is protected by the Federal Confidentiality of Alcohol and Drug Abuse Patient Records regulations: The Federal rules restrict any use of the information to criminally investigate or prosecute any alcohol or drug abuse patient.[facility]In the event this information is protected by the Federal Confidentiality of Alcohol and Drug Abuse Patient Records regulations: The Federal rules restrict any use of the information to criminally investigate or prosecute any alcohol or drug abuse patient.[facility]In the event this information is protected by the Federal Confidentiality of Alcohol and Drug Abuse Patient Records regulations: The Federal rules restrict any use of the information to criminally investigate or prosecute any alcohol or drug abuse patient.[facility]In the event this information is protected by the Federal Confidentiality of Alcohol and Drug Abuse Patient Records regulations: The Federal rules restrict any use of the information to criminally investigate or prosecute any alcohol or drug abuse patient.[facility]In the event this information is protected by the Federal Confidentiality of Alcohol and Drug Abuse Patient Records regulations: The Federal rules restrict any use of the information to criminally investigate or prosecute any alcohol or drug abuse patient.[facility]In the event this information is protected by the Federal Confidentiality of Alcohol and Drug Abuse Patient Records regulations: The Federal rules restrict any use of the information to criminally investigate or prosecute any alcohol or drug abuse patient.[facility]In the event this information is protected by the Federal Confidentiality of Alcohol and Drug Abuse Patient Records regulations: The Federal rules restrict any use of the information to criminally investigate or prosecute any alcohol or drug abuse patient.[facility]In the event this information is protected by the Federal Confidentiality of Alcohol and Drug Abuse Patient Records regulations: The Federal rules restrict any use of the information to criminally investigate or prosecute any alcohol or drug abuse patient.[facility]In the event this information is protected by the Federal Confidentiality of Alcohol and Drug Abuse Patient Records regulations: The Federal rules restrict any use of the information to criminally investigate or prosecute any alcohol or drug abuse patient.[facility]In the event this information is protected by the Federal Confidentiality of Alcohol and Drug Abuse Patient Records regulations: The Federal rules restrict any use of the information to criminally investigate or prosecute any alcohol or drug abuse patient.[facility]In the event this information is protected by the Federal Confidentiality of Alcohol and Drug Abuse Patient Records regulations: The Federal rules restrict any use of the information to criminally investigate or prosecute any alcohol or drug abuse patient.[facility] the event this information is protected by the Federal Confidentiality of Alcohol and Drug Abuse Patient Records regulations: The Federal rules restrict any use of the information to criminally investigate or prosecute any alcohol or drug abuse patient.[facility]In the event this information is protected by the Federal Confidentiality of Alcohol and Drug Abuse Patient Records regulations: The Federal rules restrict any use of the information to criminally investigate or prosecute any alcohol or drug abuse patient.[facility]In the event this information is protected by the Federal Confidentiality of Alcohol and Drug Abuse Patient Records regulations: The Federal rules restrict any use of the information to criminally investigate or prosecute any alcohol or drug abuse patient.[facility]In the event this information is protected by the Federal Confidentiality of Alcohol and Drug Abuse Patient Records regulations: The Federal rules restrict any use of the information to criminally investigate or prosecute any alcohol or drug abuse patient.[facility]In the event this information is protected by the Federal Confidentiality of Alcohol and Drug Abuse Patient Records regulations: The Federal rules restrict any use of the information to criminally investigate or prosecute any alcohol or drug abuse patient.[facility]In the event this information is protected by the Federal Confidentiality of Alcohol and Drug Abuse Patient Records regulations: The Federal rules restrict any use of the information to criminally investigate or prosecute any alcohol or drug abuse patient.[facility]In the event this information is protected by the Federal Confidentiality of Alcohol and Drug Abuse Patient Records regulations: The Federal rules restrict any use of the information to criminally investigate or prosecute any alcohol or drug abuse patient.[facility]In the event this information is protected by the Federal Confidentiality of Alcohol and Drug Abuse Patient Records regulations: The Federal rules restrict any use of the information to criminally investigate or prosecute any alcohol or drug abuse patient.[facility]In the event this information is protected by the Federal Confidentiality of Alcohol and Drug Abuse Patient Records regulations: The Federal rules restrict any use of the information to criminally investigate or prosecute any alcohol or drug abuse patient.[facility]In the event this information is protected by the Federal Confidentiality of Alcohol and Drug Abuse Patient Records regulations: The Federal rules restrict any use of the information to criminally investigate or prosecute any alcohol or drug abuse patient.[facility]In the event this information is protected by the Federal Confidentiality of Alcohol and Drug Abuse Patient Records regulations: The Federal rules restrict any use of the information to criminally investigate or prosecute any alcohol or drug abuse patient.[facility]In the event this information is protected by the Federal Confidentiality of Alcohol and Drug Abuse Patient Records regulations: The Federal rules restrict any use of the information to criminally investigate or prosecute any alcohol or drug abuse patient.[facility]In the event this information is protected by the Federal Confidentiality of Alcohol and Drug Abuse Patient Records regulations: The Federal rules restrict any use of the information to criminally investigate or prosecute any alcohol or drug abuse patient.[facility]In the event this information is protected by the Federal Confidentiality of Alcohol and Drug Abuse Patient Records regulations: The Federal rules restrict any use of the information to criminally investigate or prosecute any alcohol or drug abuse patient.[facility]In the event this information is protected by the Federal Confidentiality of Alcohol and Drug Abuse Patient Records regulations: The Federal rules restrict any use of the information to criminally investigate or prosecute any alcohol or drug abuse patient.[facility]In the event this information is protected by the Federal Confidentiality of Alcohol and Drug Abuse Patient Records regulations: The Federal rules restrict any use of the information to criminally investigate or prosecute any alcohol or drug abuse patient.[facility] HospitalIn the event this information is protected by the Federal Confidentiality of Alcohol and Drug Abuse Patient Records regulations: The Federal rules restrict any use of the information to criminally investigate or prosecute any alcohol or drug abuse patient.[facility] Hospital[facility] the event this information is protected by the Federal Confidentiality of Alcohol and Drug Abuse Patient Records regulations: The Federal rules restrict any use of the information to criminally investigate or prosecute any alcohol or drug abuse patient.[facility] HospitalIn the event this information is protected by the Federal Confidentiality of Alcohol and Drug Abuse Patient Records regulations: The Federal rules restrict any use of the information to criminally investigate or prosecute any alcohol or drug abuse patient.[facility] HospitalIn the event this information is protected by the Federal Confidentiality of Alcohol and Drug Abuse Patient Records regulations: The Federal rules restrict any use of the information to criminally investigate or prosecute any alcohol or drug abuse patient.[facility] HospitalIn the event this information is protected by the Federal Confidentiality of Alcohol and Drug Abuse Patient Records regulations: The Federal rules restrict any use of the information to criminally investigate or prosecute any alcohol or drug abuse patient.[facility] HospitalIn the event this information is protected by the Federal Confidentiality of Alcohol and Drug Abuse Patient Records regulations: The Federal rules restrict any use of the information to criminally investigate or prosecute any alcohol or drug abuse patient.[facility] HospitalIn the event this information is protected by the Federal Confidentiality of Alcohol and Drug Abuse Patient Records regulations: The Federal rules restrict any use of the information to criminally investigate or prosecute any alcohol or drug abuse patient.[facility] HospitalIn the event this information is protected by the Federal Confidentiality of Alcohol and Drug Abuse Patient Records regulations: The Federal rules restrict any use of the information to criminally investigate or prosecute any alcohol or drug abuse patient.[facility] HospitalIn the event this information is protected by the Federal Confidentiality of Alcohol and Drug Abuse Patient Records regulations: The Federal rules restrict any use of the information to criminally investigate or prosecute any alcohol or drug abuse patient.[facility] HospitalIn the event this information is protected by the Federal Confidentiality of Alcohol and Drug Abuse Patient Records regulations: The Federal rules restrict any use of the information to criminally investigate or prosecute any alcohol or drug abuse patient.[facility] HospitalIn the event this information is protected by the Federal Confidentiality of Alcohol and Drug Abuse Patient Records regulations: The Federal rules restrict any use of the information to criminally investigate or prosecute any alcohol or drug abuse patient.[facility] HospitalIn the event this information is protected by the Federal Confidentiality of Alcohol and Drug Abuse Patient Records regulations: The Federal rules restrict any use of the information to criminally investigate or prosecute any alcohol or drug abuse patient.[facility] HospitalIn the event this information is protected by the Federal Confidentiality of Alcohol and Drug Abuse Patient Records regulations: The Federal rules restrict any use of the information to criminally investigate or prosecute any alcohol or drug abuse patient.[facility] HospitalIn the event this information is protected by the Federal Confidentiality of Alcohol and Drug Abuse Patient Records regulations: The Federal rules restrict any use of the information to criminally investigate or prosecute any alcohol or drug abuse patient.[facility] HospitalIn the event this information is protected by the Federal Confidentiality of Alcohol and Drug Abuse Patient Records regulations: The Federal rules restrict any use of the information to criminally investigate or prosecute any alcohol or drug abuse patient.[facility] HospitalIn the event this information is protected by the Federal Confidentiality of Alcohol and Drug Abuse Patient Records regulations: The Federal rules restrict any use of the information to criminally investigate or prosecute any alcohol or drug abuse patient.[facility] HospitalIn the event this information is protected by the Federal Confidentiality of Alcohol and Drug Abuse Patient Records regulations: The Federal rules restrict any use of the information to criminally investigate or prosecute any alcohol or drug abuse patient.[facility] Care Teams (unrecognized sec tion and content) Market Development Director Relationship Specialty Start Date End Date Jesus Davila MD [address] [place] [address] PCP - General Internal Medicine 03/10/16 Mike Puente (Hist) [address] [place] [address] Physician Cardiology 07/30/14 Catherine Alford Consulting Infectious Diseases 09/21/14 María Vance I, Consulting Nephrology 09/21/14 Natasha Tee RN Specialty Floor Coverer Apprentice General Surgery 07/01/18 Pérez Loya, optics test technicianAdobe Flex Developer Internal Medicine 12/08/20 Market Development Director Relationship Specialty Start Date End Date Jesus Davila MD [address] [place], [place] [address] PCP - General Internal Medicine 03/10/16 Mike Puente (Hist) [address], [place] [address] Physician Cardiology 07/30/14 Catherine Alford Consulting Infectious Diseases 09/21/14 María Vance I, DO Consulting Nephrology 09/21/14 Natasha Tee RN Specialty Floor Coverer Apprentice General Surgery 07/01/18 Pérez Loya, optics test technicianAdobe Flex Developer Internal Medicine 12/08/20 Market Development Director Relationship Specialty Start Date End Date Jesus Davila MD [address] [place] [address] PCP - General Internal Medicine 03/10/16 Mike Puente (Hist) [address] [place] [address] Physician Cardiology 07/30/14 Catherine Alford Consulting Infectious Diseases 09/21/14 María Vance I, DO Consulting Nephrology 09/21/14 Natasha Tee RN Specialty Floor Coverer Apprentice General Surgery 07/01/18 Pérez Loya, optics test technicianAdobe Flex Developer Internal Medicine 12/08/20 Market Development Director Relationship Specialty Start Date End Date Jesus Davila MD [address] [place] [address] PCP - General Internal Medicine 03/10/16 Mike Puente (Hist) [address] [place] [address] Physician Cardiology 07/30/14 Catherine Alford Consulting Infectious Diseases 09/21/14 María Vance I, DO Consulting Nephrology 09/21/14 Natasha Tee RN Specialty Floor Coverer Apprentice General Surgery 07/01/18 Pérez Loya, optics test technicianAdobe Flex Developer Internal Medicine 12/08/20 Market Development Director Relationship Specialty Start Date End Date Jesus Davila MD [address] [place] [address] PCP - General Internal Medicine 03/10/16 Mike Puente (Hist) [address] [place] [address] Physician Cardiology 07/30/14 Catherine Alford Consulting Infectious Diseases 09/21/14 María Vance I, DO Consulting Nephrology 09/21/14 Natasha Tee RN Specialty Floor Coverer Apprentice General Surgery 07/01/18 Pérez Loya, optics test technicianAdobe Flex Developer Internal Medicine 12/08/20 Market Development Director Relationship Specialty Start Date End Date Jesus Davila MD [address] [place] [address] PCP - General Internal Medicine 03/10/16 Mike Puente (Hist) [address] [place] [address] Physician Cardiology 07/30/14 Catherine Alford Consulting Infectious Diseases 09/21/14 María Vance I, Consulting Nephrology 09/21/14 Natasha Tee, CHRISTOPHER Specialty Floor Coverer Apprentice General Surgery 07/01/18 Pérez Loya, optics test technicianAdobe Flex Developer Internal Medicine 12/08/20 Market Development Director Relationship Specialty Start Date End Date Jesus Davila MD [address] [place] [address] PCP - General Internal Medicine 03/10/16 Mike Puente (Hist) [address] [place] [address] Physician Cardiology 07/30/14 Catherine Alford Consulting Infectious Diseases 09/21/14 María Vance I, DO Consulting Nephrology 09/21/14 Natasha Tee, CHRISTOPHER Specialty Floor Coverer Apprentice General Surgery 07/01/18 Pérez Loya, optics test technicianAdobe Flex Developer Internal Medicine 12/08/20 Market Development Director Relationship Specialty Start Date End Date Jesus Davila MD [address] [place] [address] PCP - General Internal Medicine 03/10/16 Mike Puente (Hist) [address] [place] [address] Physician Cardiology 07/30/14 Catherine Alford Consulting Infectious Diseases 09/21/14 María Vance I, DO Consulting Nephrology 09/21/14 Natasha Tee RN Specialty Floor Coverer Apprentice General Surgery 07/01/18 Pérez Loya, optics test technicianAdobe Flex Developer Internal Medicine 12/08/20 Market Development Director Relationship Specialty Start Date End Date Jesus Davila MD [address] [place] [address] PCP - General Internal Medicine 03/10/16 Mike Puente (Hist) [address] [place] [address] Physician Cardiology 07/30/14 Catherine Alford MD Consulting Infectious Diseases 09/21/14 María Vance I, DO Consulting Nephrology 09/21/14 Natasha Tee RN Specialty Floor Coverer Apprentice General Surgery 07/01/18 Pérez Loya, optics test technicianAdobe Flex Developer Internal Medicine 12/08/20 Market Development Director Relationship Specialty Start Date End Date Jesus Davila MD [address] [place] [address] PCP - General Internal Medicine 03/10/16 Mike Puente (Hist) [address] [place] [address] Physician Cardiology 07/30/14 Catherine Alford MD Consulting Infectious Diseases 09/21/14 María Vance I, DO Consulting Nephrology 09/21/14 Natasha Tee RN Specialty Floor Coverer Apprentice General Surgery 07/01/18 Pérez Loya, optics test technicianAdobe Flex Developer Internal Medicine 12/08/20 Market Development Director Relationship Specialty Start Date End Date Jesus Davila MD [address] [facility] [place] [address] PCP - General Internal Medicine 03/10/16 Mike Puente (Hist) [address] [place] [facility] [place] [place] [address] (Fax) Physician Cardiology 07/30/14 Catherine Alford MD Consulting Infectious Diseases 09/21/14 María Vance I, DO Consulting Nephrology 09/21/14 Natasha Tee, CHRISTOPHER Specialty Floor Coverer Apprentice General Surgery 07/01/18 Pérez Loya, optics test technicianAdobe Flex Developer Internal Medicine 12/08/20 Market Development Director Relationship Specialty Start Date End Date Jesus Davila MD [address] [facility] [place] [address] PCP - General Internal Medicine 03/10/16 Mike Puente (Hist) [address] [facility] [place] [place] [address] Physician Cardiology 07/30/14 Catherine Alford MD Consulting Infectious Diseases 09/21/14 María Vance I, DO Consulting Nephrology 09/21/14 Natasha Tee, CHRISTOPHER Specialty Floor Coverer Apprentice General Surgery 07/01/18 Pérez Loya, optics test technicianAdobe Flex Developer Internal Medicine 12/08/20 Market Development Director Relationship Specialty Start Date End Date Jesus Davila MD [address] [facility] [place] [address] PCP - General Internal Medicine 03/10/16 Mike Puente (Hist) [address], [place] [address] (Fax) Physician Cardiology 07/30/14 Catherine Alford MD Consulting Infectious Diseases 09/21/14 María Vance I, DO Consulting Nephrology 09/21/14 Natasha Tee, CHRISTOPHER Specialty Floor Coverer Apprentice General Surgery 07/01/18 Pérez Loya, optics test technicianAdobe Flex Developer Internal Medicine 12/08/20 Market Development Director Relationship Specialty Start Date End Date Jesus Davila MD [address] [place], [place] [address] PCP - General Internal Medicine 03/10/16 Mike Puente (Hist) [address], [place] [address]001 (Fax) Physician Cardiology 07/30/14 Catherine Alford MD Consulting Infectious Diseases 09/21/14 María Vance I, DO Consulting Nephrology 09/21/14 Natasha Tee RN Specialty Floor Coverer Apprentice General Surgery 07/01/18 Pérez Loya, optics test technicianAdobe Flex Developer Internal Medicine 12/08/20 Market Development Director Relationship Specialty Start Date End Date Jesus Davila MD [address] [place] [address] PCP - General Internal Medicine 03/10/16 Mike Puente (Hist) [address] [place] [address] Physician Cardiology 07/30/14 Catherine Alford MD Consulting Infectious Diseases 09/21/14 María Vance I, DO Consulting Nephrology 09/21/14 Natasha Tee RN Specialty Floor Coverer Apprentice General Surgery 07/01/18 Pérez Loya, optics test technicianAdobe Flex Developer Internal Medicine 12/08/20 Market Development Director Relationship Specialty Start Date End Date Jesus Davila MD [address] [facility] [place] [address] PCP - General Internal Medicine 03/10/16 Mike Puente (Hist) [address] [place] [address] Physician Cardiology 07/30/14 Catherine Alford MD Consulting Infectious Diseases 09/21/14 María Vance I, DO Consulting Nephrology 09/21/14 Natasha Tee RN Specialty Floor Coverer Apprentice General Surgery 07/01/18 Pérez Loya, optics test technicianAdobe Flex Developer Internal Medicine 12/08/20 Market Development Director Relationship Specialty Start Date End Date Jesus Davila MD [address] [place] [address] PCP - General Internal Medicine 03/10/16 Mike Puente (Hist) [address] [place] [address] Physician Cardiology 07/30/14 Catherine Alford MD Consulting Infectious Diseases 09/21/14 María Vance I, DO Consulting Nephrology 09/21/14 Natasha Tee RN Specialty Floor Coverer Apprentice General Surgery 07/01/18 Pérez Loya, optics test technicianAdobe Flex Developer Internal Medicine 12/08/20 Market Development Director Relationship Specialty Start Date End Date Jesus Davila MD [address] [facility] [place] [address] PCP - General Internal Medicine 03/10/16 Mike Puente (Hist) [address] [facility] [place] [address] Physician Cardiology 07/30/14 Catherine Alford MD Consulting Infectious Diseases 09/21/14 María Vance I, DO Consulting Nephrology 09/21/14 Natasha Tee, CHRISTOPHER Specialty Floor Coverer Apprentice General Surgery 07/01/18 Pérez Loya, optics test technicianAdobe Flex Developer Internal Medicine 12/08/20 Market Development Director Relationship Specialty Start Date End Date Jesus Davila MD [address] [place] [address] PCP - General Internal Medicine 03/10/16 Mike Puente (Hist) [address] [place] [address] (Fax) Physician Cardiology 07/30/14 Catherine Alford MD Consulting Infectious Diseases 09/21/14 María Vance I, DO Consulting Nephrology 09/21/14 Naatsha Tee, CHRISTOPHER Specialty Floor Coverer Apprentice General Surgery 07/01/18 Pérez Loya, optics test technicianAdobe Flex Developer Internal Medicine 12/08/20 Market Development Director Relationship Specialty Start Date End Date Jesus Davila MD [address] [facility] [place] [address] PCP - General Internal Medicine 03/10/16 Mike Puente (Hist) [address] [facility], [place] [id number] Physician Cardiology 07/30/14 Catherine Alford MD Consulting Infectious Diseases 09/21/14 María Vance I, DO Consulting Nephrology 09/21/14 Natasha Tee RN Specialty Floor Coverer Apprentice General Surgery 07/01/18 Pérez Loya, optics test technicianAdobe Flex Developer Internal Medicine 12/08/20 Market Development Director Relationship Specialty Start Date End Date Jesus Davila MD [address] [place], [place] [id number] PCP - General Internal Medicine 03/10/16 Mike Puente (Hist) [address], [place] [address] Physician Cardiology 07/30/14 Catherine Alford MD Consulting Infectious Diseases 09/21/14 María Vance I, DO Consulting Nephrology 09/21/14 Natasha Tee, CHRISTOPHER Specialty Floor Coverer Apprentice General Surgery 07/01/18 Pérez Loya, optics test technicianAdobe Flex Developer Internal Medicine 12/08/20 Market Development Director Relationship Specialty Start Date End Date Jesus Davila MD [address] [place], [place] [address]781 PCP - General Internal Medicine 03/10/16 Mike Puente (Hist) [address] [place] [address] (Fax) Physician Cardiology 07/30/14 Catherine Alford MD Consulting Infectious Diseases 09/21/14 María Vance I, DO Consulting Nephrology 09/21/14 Natasha Tee RN Specialty Floor Coverer Apprentice General Surgery 07/01/18 Pérez Loya, optics test technicianAdobe Flex Developer Internal Medicine 12/08/20 Market Development Director Relationship Specialty Start Date End Date Jesus Davila MD [address] [place] [address] PCP - General Internal Medicine 03/10/16 Mike Puente (Hist) [address] [place] [address] Physician Cardiology 07/30/14 Catherine Alford MD Consulting Infectious Diseases 09/21/14 María Vance I, Consulting Nephrology 09/21/14 Natasha Tee RN Specialty Floor Coverer Apprentice General Surgery 07/01/18 Catherine Pompa RN [address] [place] [address] Adobe Flex Developer 12/08/20 Market Development Director Relationship Specialty Start Date End Date Jesus Davila MD [address] [place] [address] PCP - General Internal Medicine 03/10/16 Mike Puente (Hist) [address] [place] [address] Physician Cardiology 07/30/14 Catherine Alford MD [address], [place] [address] Consulting Infectious Diseases 09/21/14 María Vance I, [address], [place] [address] Consulting Nephrology 09/21/14 Natasha Tee RN Specialty Floor Coverer Apprentice General Surgery 07/01/18 Catherine Pompa RN [address] [place] [address] Adobe Flex Developer 12/08/20 Market Development Director Relationship Specialty Start Date End Date Jesus Davila MD [address] [facility], [place] [address] PCP - General Internal Medicine 03/10/16 Mike Puente (Hist) [address] [facility] [place] [place] [address] Physician Cardiology 07/30/14 Catherine Alford MD [address] [place] [address] Consulting Infectious Diseases 09/21/14 María Vance I, DO [address] [place] [address] Consulting Nephrology 09/21/14 Natasha Tee RN Specialty Floor Coverer Apprentice General Surgery 07/01/18 Catherine Pompa RN [address] [place] [address] Adobe Flex Developer 12/08/20 Market Development Director Relationship Specialty Start Date End Date Jesus Davila MD [address] [facility], [place] [address] PCP - General Internal Medicine 03/10/16 Mike Puente (Hist) [address] [place] [address] Physician Cardiology 07/30/14 Catherine Alford MD [address] [place] [address] Consulting Infectious Diseases 09/21/14 María Vance I, DO [address] [address] Consulting Nephrology 09/21/14 Natasha Tee RN Specialty Floor Coverer Apprentice General Surgery 07/01/18 Shalini Ortez RN Adobe Flex Developer Internal Medicine 12/08/20 Catherine Pompa, CHRISTOPHER [address] [place] [address] Adobe Flex Developer 12/08/20 Market Development Director Relationship Specialty Start Date End Date Jesus Davila MD [address] [facility], [place] [address] PCP - General Internal Medicine 03/10/16 Mike Puente (Hist) [address] [facility] [place] [address] Physician Cardiology 07/30/14 Catherine Alford MD [address] [facility] [address] [address] Consulting Infectious Diseases 09/21/14 María Vance I, DO [address] [facility] [place] [place] [address] Consulting Nephrology 09/21/14 Natasha Tee RN Specialty Floor Coverer Apprentice General Surgery 07/01/18 Catherine Pompa, CHRISTOPHER [address] [place] [address] Adobe Flex Developer 07/12/22 Market Development Director Relationship Specialty Start Date End Date Jesus Davila MD [address] [facility], [place] [address] PCP - General Internal Medicine 03/10/16 Mike Puente (Hist) [address] [facility] [place] [address] Physician Cardiology 07/30/14 Catherine Alford MD [address] [place] [address] Consulting Infectious Diseases 09/21/14 María Vance I, DO [address] [facility] [address] Consulting Nephrology 09/21/14 Natasha Tee RN Specialty Floor Coverer Apprentice General Surgery 07/01/18 Catherine Pompa, CHRISTOPHER [address] [place] [address] Adobe Flex Developer 07/12/22 Market Development Director Relationship Specialty Start Date End Date Jesus Davila MD [address] [facility], [place] [address] PCP - General Internal Medicine 03/10/16 Mike Puente (Hist) [address] [facility] [place] [address] Physician Cardiology 07/30/14 Catherine Alford MD [address] [facility] [place] [address] Consulting Infectious Diseases 09/21/14 María Vance I, DO [address] [place] [address] Consulting Nephrology 09/21/14 Natasha Tee RN Specialty Floor Coverer Apprentice General Surgery 07/01/18 Catherine Pompa, CHRISTOPHER [address] [place] [address] Adobe Flex Developer 07/12/22 Market Development Director Relationship Specialty Start Date End Date Jesus Davila MD [address] [facility] [place] [address] PCP - General Internal Medicine 03/10/16 Mike Puente [address] [address] Physician Cardiology 07/30/14 Catherine Alford MD [address] [place] [address] Consulting Infectious Diseases 09/21/14 María Vance I, DO [address] [place], [place] [address] Consulting Nephrology 09/21/14 Natasha Tee, CHRISTOPHER Specialty Floor Coverer Apprentice General Surgery 07/01/18 Catherine Pompa, RN [address] [place] [address] Adobe Flex Developer 07/12/22 Market Development Director Relationship Specialty Start Date End Date Jesus Davila MD [address] [facility] [place] [address] PCP - General Internal Medicine 03/10/16 Mike Puente [address] [facility] [place] [address] Physician Cardiology 07/30/14 Catherine Alford MD [address] [facility] [place] [place] [address] Consulting Infectious Diseases 09/21/14 María Vance I, DO [address] [facility] [place] [place] [address] Consulting Nephrology 09/21/14 Natasha Tee RN Specialty Floor Coverer Apprentice General Surgery 07/01/18 Catherine Pompa, CHRISTOPHER [address] [place] [address] Adobe Flex Developer 07/12/22 Market Development Director Relationship Specialty Start Date End Date Jesus Davila MD [address] [facility] [place] [address] PCP - General Internal Medicine 03/10/16 Mike Puente [address] [place], [place] [address] Physician Cardiology 07/30/14 Catherine Alford MD [address] [facility] [address] Consulting Infectious Diseases 09/21/14 María Vance I, DO [address] [place], [place] [address] Consulting Nephrology 09/21/14 Natasha Tee, CHRISTOPHER Specialty Floor Coverer Apprentice General Surgery 07/01/18 Catherine Pompa, CHRISTOPHER [address] [place] [address] Adobe Flex Developer 07/12/22 Market Development Director Relationship Specialty Start Date End Date Jesus Davila MD [address] [facility] [place] [address] PCP - General Internal Medicine 03/10/16 Mike Puente [address] [place] [address] Physician Cardiology 07/30/14 Catherine Alford MD [address] [place] [address] Consulting Infectious Diseases 09/21/14 María Vance I, [address] [place] [address] Consulting Nephrology 09/21/14 Natasha Tee RN Specialty Floor Coverer Apprentice General Surgery 07/01/18 Catherine Pompa, CHRISTOPHER [address] [place] [address] Adobe Flex Developer 07/12/22 Market Development Director Relationship Specialty Start Date End Date Jesus Davila MD [address] [facility] [place] [address] PCP - General Internal Medicine 03/10/16 Mike Puente [address] [place] [address] Physician Cardiology 07/30/14 Catherine Alford MD [address] [place] [address] Consulting Infectious Diseases 09/21/14 María Vance I, DO [address], [place] [address] Consulting Nephrology 09/21/14 Natasha Tee, RN Specialty Floor Coverer Apprentice General Surgery 07/01/18 Catherine Pompa, RN [address] [place] [address] Adobe Flex Developer 07/12/22 Team Status: Active Member Role Status Dates Dr. Jesus Davila MD Family Provider Active Dr. Jesus Davila MD Primary Care Provider Active Team Status: Inactive Member Role Status Dates Dr. Jesus Davila MD Primary Care Provider, Refer ring Provider Active Dr. Noah Kraft MD Attending Provider Active Team Status: Inactive Member Role Status Dates Dr. Jesus Davila MD Primary Care Provider, Refer ring Provider Active Dr. Neymar Valles MD Attending Provider Active Team Status: Inactive Member Role Status Dates Dr. Jesus Davila MD Primary Care Provider, Refer ring Provider Active LANEY Aguirre Attending Provider Active Team Status: Inactive Member Role Status Dates Dr. Jesus Davila MD Primary Care Provider Active Dr. Arslan Ugarte MD Attending Provider, Referring Provider Active Team Status: Inactive Member Role Status Dates Dr. Jesus Davila MD Primary Care Provider Active MICAELA CantrellM Attending Provider Active Market Development Director Relationship Specialty Start Date End Date Jesus Davila MD [address] [place] [address] PCP - General Internal Medicine 03/10/16 Mike Puente [address] [place] [address] Physician Cardiology 07/30/14 Catherine Alford MD [address] [place] [address] Consulting Infectious Diseases 09/21/14 María Vance I, DO [address], [place] [address] Consulting Nephrology 09/21/14 Natasha Tee RN Specialty Floor Coverer Apprentice General Surgery 07/01/18 Catherine Pompa, CHRISTOPHER [address] [place] [address] Adobe Flex Developer 07/12/22 Market Development Director Relationship Specialty Start Date End Date Jesus Davila MD [address] [facility], [place] [id number] PCP - General Internal Medicine 03/10/16 Mike Puente [address] [facility] [address] [place], [place] [address] Physician Cardiology 07/30/14 Catherine lAford MD [address] [place] [address] Consulting Infectious Diseases 09/21/14 María Vance I, DO [address] [facility] [place] [address] Consulting Nephrology 09/21/14 Natasha Tee RN Specialty Floor Coverer Apprentice General Surgery 07/01/18 Catherine Pompa, CHRISTOPHER [address] [place] [address] Adobe Flex Developer 07/12/22 Market Development Director Relationship Specialty Start Date End Date Jesus Davila MD [address] [facility], [place] [address] PCP - General Internal Medicine 03/10/16 Mike Puente [address] [place], [place] [address] Physician Cardiology 07/30/14 Catherine Alford MD [address] [place] [address] Consulting Infectious Diseases 09/21/14 María Vance I, DO [address] [place] [address] Consulting Nephrology 09/21/14 Natasha Tee, CHRISTOPHER Specialty Floor Coverer Apprentice General Surgery 07/01/18 Catherine Pompa, CHRISTOPHER [address] [place] [address] Adobe Flex Developer 07/12/22 Market Development Director Relationship Specialty Start Date End Date Jesus Davila MD [address] [facility], [place] [address] PCP - General Internal Medicine 03/10/16 Mike Puente [address] [facility], [place] [address] Physician Cardiology 07/30/14 Catherine Alford MD [address] [facility] [place] [place] [address] Consulting Infectious Diseases 09/21/14 María Vance I, DO [address] [facility] [place] [place] [address] Consulting Nephrology 09/21/14 Natasha Tee RN Specialty Floor Coverer Apprentice General Surgery 07/01/18 Catherine Pompa, CHRISTOPHER [address] [place] [address] Adobe Flex Developer 07/12/22 Team Status: Inactive Member Role Status Dates Dr. Jesus Davila MD Primary Care Provider, Refer ring Provider Active Gabbie Matos ALLERGY SPECIALIST, ALLERGY SPECIALIST-C Attending Provider Active Team Status: Inactive Member Role Status Dates Dr. Jesus Davila MD Primary Care Provider Active Dr. María Vance DO Attending Provider Active Market Development Director Relationship Specialty Start Date End Date Jesus Davila MD [address] [facility], [place] [address]71 PCP - General Internal Medicine 03/10/16 Mike Puente [address] [facility], [place] [address]31 Physician Cardiology 07/30/14 Catherine Alford MD [address] [place] [address] Consulting Infectious Diseases 09/21/14 María Vance I, [address] [place] [address] Consulting Nephrology 09/21/14 Natasha Tee, CHRISTOPHER Specialty Floor Coverer Apprentice General Surgery 07/01/18 Catherine Pompa, RN [address] [place], [place] [id number] Adobe Flex Developer 07/12/22 Market Development Director Relationship Specialty Start Date End Date Jesus Davila MD [address] [facility] [place] [address] PCP - General Internal Medicine 03/10/16 Mike Puente [address] [place] [address] Physician Cardiology 07/30/14 Catherine Alford MD [address] [place] [address] Consulting Infectious Diseases 09/21/14 María Vance I, [address] [place] [address] Consulting Nephrology 09/21/14 Natasha Tee RN Specialty Floor Coverer Apprentice General Surgery 07/01/18 Catherine Pompa, CHRISTOPHER [address] [place] [address] Adobe Flex Developer 07/12/22 Market Development Director Relationship Specialty Start Date End Date Jesus Davila MD [address] [place] [address] PCP - General Internal Medicine 03/10/16 Mike Puente [address] [facility] [place] [place] [address] Physician Cardiology 07/30/14 Catherine Alford MD [address] [facility] [place] [address] Consulting Infectious Diseases 09/21/14 María Vance I, DO [address] [place] [address] Consulting Nephrology 09/21/14 Natasha Tee, CHRISTOPHER Specialty Floor Coverer Apprentice General Surgery 07/01/18 Catherine Pompa, CHRISTOPHER [address] [place] [address] Adobe Flex Developer 07/12/22 Market Development Director Relationship Specialty Start Date End Date Jesus Davila MD [address] [facility] [place] [address] PCP - General Internal Medicine 03/10/16 Mike Puente [address] [facility] [place] [place] [address] Physician Cardiology 07/30/14 Catherine Alford MD [address] [facility] [place] [address] Consulting Infectious Diseases 09/21/14 María Vance I, DO [address] [facility] [place] [address] Consulting Nephrology 09/21/14 Natasha Tee, CHRISTOPHER Specialty Floor Coverer Apprentice General Surgery 07/01/18 Catherine Pompa, CHRISTOPHER [address] [place] [address] Adobe Flex Developer 07/12/22 Market Development Director Relationship Specialty Start Date End Date Jesus Davila MD [address] [facility] [place] [address] PCP - General Internal Medicine 03/10/16 Mike Puente [address] [facility], [place] [address]231 Physician Cardiology 07/30/14 Catherine Alford MD [address] [facility] [place] [address] Consulting Infectious Diseases 09/21/14 María Vance I, DO [address] [facility] [place] [address] Consulting Nephrology 09/21/14 Natasha Tee, CHRISTOPHER Specialty Floor Coverer Apprentice General Surgery 07/01/18 Catherine Pompa, CHRISTOPHER [address] [place] [address] Adobe Flex Developer 07/12/22 Market Development Director Relationship Specialty Start Date End Date Jesus Davila MD [address] [facility] [place] [address] PCP - General Internal Medicine 03/10/16 Mike Puente [address] [facility] [place] [address] Physician Cardiology 07/30/14 Catherine Alford MD [address] [facility] [place] [address] Consulting Infectious Diseases 09/21/14 María Vance I, [address] [facility] [place] [address] Consulting Nephrology 09/21/14 Natasha Tee, CHRISTOPHER Specialty Floor Coverer Apprentice General Surgery 07/01/18 Catherine Pompa, CHRISTOPHER [address] [place] [address] Adobe Flex Developer 07/12/22 Market Development Director Relationship Specialty Start Date End Date Jesus Davila MD [address] [facility] [place] [address] PCP - General Internal Medicine 03/10/16 Mike Puente [address] [facility] [place] [address] Physician Cardiology 07/30/14 Catherine Alford MD [address] [facility] [place] [address] Consulting Infectious Diseases 09/21/14 María Vance I, [address] [facility] [place] [address] Consulting Nephrology 09/21/14 Natasha Tee, CHRISTOPHER Specialty Floor Coverer Apprentice General Surgery 07/01/18 Catherine Pompa, CHRISTOPHER [address] [place] [address] Adobe Flex Developer 07/12/22 Market Development Director Relationship Specialty Start Date End Date Jesus Davila MD [address] [facility] [place] [address] PCP - General Internal Medicine 03/10/16 Mike Puente [address] [facility] [place] [address] Physician Cardiology 07/30/14 Catherine Alford MD [address] [facility] [place] [address] Consulting Infectious Diseases 09/21/14 María Vance I, [address] [facility] [place] [address] Consulting Nephrology 09/21/14 Natasha Tee, CHRISTOPHER Specialty Floor Coverer Apprentice General Surgery 07/01/18 Catherine Pompa, CHRISTOPHER [address] [place] [address] Adobe Flex Developer 07/12/22 Market Development Director Relationship Specialty Start Date End Date Jesus Davila MD [address] [facility] [place] [address] PCP - General Internal Medicine 03/10/16 Mike Puente [address] [place] [address] Physician Cardiology 07/30/14 Catherine Alford MD [address] [place] [address] Consulting Infectious Diseases 09/21/14 María Vance I, [address] [place] [address] Consulting Nephrology 09/21/14 Natasha Tee, RN Specialty Floor Coverer Apprentice General Surgery 07/01/18 Catherine Pompa, CHRISTOPHER [address] [place] [address] Adobe Flex Developer 07/12/22 Market Development Director Relationship Specialty Start Date End Date Jesus Davila MD [address] [facility] [place] [address] PCP - General Internal Medicine 03/10/16 Mike Puente [address] [place] [address] Physician Cardiology 07/30/14 Catherine Alford MD [address] [place] [address] Consulting Infectious Diseases 09/21/14 María Vance I, [address] [place] [address] Consulting Nephrology 09/21/14 Natasha Tee, CHRISTOPHER Specialty Floor Coverer Apprentice General Surgery 07/01/18 Catherine Pompa, CHRISTOPHER [address] [place] [address] Adobe Flex Developer 07/12/22 Market Development Director Relationship Specialty Start Date End Date Jesus Davila MD [address] [facility] [place] [address] PCP - General Internal Medicine 03/10/16 Mike Puente [address] [place] [address] (Fax) Physician Cardiology 07/30/14 Catherine Alford MD [address] [place] [address] Consulting Infectious Diseases 09/21/14 María Vance I, DO [address] [place] [address] Consulting Nephrology 09/21/14 Natasha Tee, CHRISTOPHER Specialty Floor Coverer Apprentice General Surgery 07/01/18 Catherine Pompa, CHRISTOPHER [address] [place] [address] Adobe Flex Developer 07/12/22 Market Development Director Relationship Specialty Start Date End Date Jesus Davila MD [address] [facility] [place] [address] PCP - General Internal Medicine 03/10/16 Mike Puente [address] [place] [address] Physician Cardiology 07/30/14 Catherine Alford MD [address] [place] [address] Consulting Infectious Diseases 09/21/14 María Vance I, [address] [place] [address] Consulting Nephrology 09/21/14 Natasha Tee, CHRISTOPHER Specialty Floor Coverer Apprentice General Surgery 07/01/18 Catherine Pompa, CHRISTOPHER [address] [place] [address] Adobe Flex Developer 07/12/22 Market Development Director Relationship Specialty Start Date End Date Jesus Davila MD [address] [facility] [place] [address] PCP - General Internal Medicine 03/10/16 Mike Puente [address] [place], [place] 874281 Physician Cardiology 07/30/14 Catherine Alford MD [address] [place] [address] Consulting Infectious Diseases 09/21/14 María Vance I, DO [address] [place], [place] 595[address] Consulting Nephrology 09/21/14 Natasha Tee RN Specialty Floor Coverer Apprentice General Surgery 07/01/18 Catherine Pmopa, CHRISTOPHER [address] [place] [id number] Adobe Flex Developer 07/12/22 Market Development Director Relationship Specialty Start Date End Date Jesus Davila MD [address] [place] [address] PCP - General Internal Medicine 03/10/16 Mike Puente [address] [place] [address] Physician Cardiology 07/30/14 Catherine Alford MD [address] [place] [address] Consulting Infectious Diseases 09/21/14 María Vance I, DO [address] [place], [place] [address] Consulting Nephrology 09/21/14 Natasha Tee RN Specialty Floor Coverer Apprentice General Surgery 07/01/18 Catherine Pompa, CHRISTOPHER [address] [place], [place] [id number] Adobe Flex Developer 07/12/22 Market Development Director Relationship Specialty Start Date End Date Jesus Davila MD [address] [place], [place] 2915[address] PCP - General Internal Medicine 03/10/16 Mike Puente [address] [place] [address] Physician Cardiology 07/30/14 Catherine Alford MD [address] [place] [address] Consulting Infectious Diseases 09/21/14 María Vance I, DO [address] [place] [address] Consulting Nephrology 09/21/14 Natasha Tee, CHRISTOPHER Specialty Floor Coverer Apprentice General Surgery 07/01/18 Catherine Pompa, CHRISTOPHER [address] [place] [address] Adobe Flex Developer 07/12/22 Market Development Director Relationship Specialty Start Date End Date Jesus Davila MD [address] [place] [address] PCP - General Internal Medicine 03/10/16 Mike Puente [address] [place] [address] Physician Cardiology 07/30/14 Catherine Alford MD [address] [place] [address] Consulting Infectious Diseases 09/21/14 María Vance I, DO [address] [place], [place] 141781 Consulting Nephrology 09/21/14 Natasha Tee, CHRISTOPHER Specialty Floor Coverer Apprentice General Surgery 07/01/18 Catherine Pompa, CHRISTOPHER [address] [place] [address] Adobe Flex Developer 07/12/22 Market Development Director Relationship Specialty Start Date End Date Jesus Davila MD [address] [place], [place] [address] PCP - General Internal Medicine 03/10/16 Mike Puente [address] [place], [place] 368541 Physician Cardiology 07/30/14 Catherine Alford MD [address] [place] [address] Consulting Infectious Diseases 09/21/14 María Vance I, DO [address] [place], [place] 07[address] Consulting Nephrology 09/21/14 Natasha Tee, CHRISTOPHER Specialty Floor Coverer Apprentice General Surgery 07/01/18 Catherine Pompa, CHRISTOPHER [address] [place] [address] Adobe Flex Developer 07/12/22 Market Development Director Relationship Specialty Start Date End Date Jesus Davila MD [address] [place], [place] [id number] PCP - General Internal Medicine 03/10/16 Mike Puente [address] [place], [place] 66406[address] Physician Cardiology 07/30/14 Catherine Alford MD [address] [place] [address] Consulting Infectious Diseases 09/21/14 María Vance I, DO [address] [place] [address] Consulting Nephrology 09/21/14 Natasha Tee RN Specialty Floor Coverer Apprentice General Surgery 07/01/18 Catherine Pompa, RN [address] [place] [address] Adobe Flex Developer 07/12/22 Market Development Director Relationship Specialty Start Date End Date Jesus Davila MD [address] [place] [address] PCP - General Internal Medicine 03/10/16 Mike Puente [address] [place] [address] Physician Cardiology 07/30/14 Catherine Alford MD [address] [place] [address] Consulting Infectious Diseases 09/21/14 María Vance I, DO [address] [place] [address] Consulting Nephrology 09/21/14 Natasha Tee RN Specialty Floor Coverer Apprentice General Surgery 07/01/18 Catherine Pompa, CHRISTOPHER [address] [place] [address] Adobe Flex Developer 07/12/22 Market Development Director Relationship Specialty Start Date End Date Jesus Davila MD [address] [place], [place] [id number] PCP - General Internal Medicine 03/10/16 Mike Puente [address] [place], [place] 454781 Physician Cardiology 07/30/14 Catherine Alford MD [address] [place] [address] Consulting Infectious Diseases 09/21/14 María Vance I, DO [address] [place] [address] Consulting Nephrology 09/21/14 Natasha Tee RN Specialty Floor Coverer Apprentice General Surgery 07/01/18 Catherine Pompa, CHRISTOPHER [address] [place] [address] Adobe Flex Developer 07/12/22 Market Development Director Relationship Specialty Start Date End Date Jesus Davila MD [address] [place] [address] PCP - General Internal Medicine 03/10/16 Mike Puente [address] [place] [address] Physician Cardiology 07/30/14 Catherine Alford MD [address] [place] [address] Consulting Infectious Diseases 09/21/14 María Vance I, DO [address] [place], [place] 352521 Consulting Nephrology 09/21/14 Natasha Tee RN Specialty Floor Coverer Apprentice General Surgery 07/01/18 Catherine Pompa, CHRISTOPHER [address] [place] [address] Adobe Flex Developer 07/12/22 Market Development Director Relationship Specialty Start Date End Date Jesus Davila MD [address] [place], [place] 938921 PCP - General Internal Medicine 03/10/16 Mike Puente [address] [place] [address] Physician Cardiology 07/30/14 Catherine Alford MD [address] [place] [address] Consulting Infectious Diseases 09/21/14 María Vance I, DO [address] [place], [place] 179281 Consulting Nephrology 09/21/14 Natasha Tee, CHRISTOPHER Specialty Floor Coverer Apprentice General Surgery 07/01/18 Catherine Pompa, CHRISTOPHER [address] [place] [address] Adobe Flex Developer 07/12/22 Market Development Director Relationship Specialty Start Date End Date Jesus Davila MD [address] [place] [address] PCP - General Internal Medicine 03/10/16 Mike Puente [address] [place] [address] Physician Cardiology 07/30/14 Catherine Alford MD [address] [place] [address] Consulting Infectious Diseases 09/21/14 María Vance I, DO [address] [place], [place] 339371 Consulting Nephrology 09/21/14 Natasha Tee, CHRISTOPHER Specialty Floor Coverer Apprentice General Surgery 07/01/18 Catherine Pompa, RN [address] [place] [id number] Adobe Flex Developer 07/12/22 Team Status: Inactive Member Role Status Dates Dr. Jesus Davila MD Primary Care Provider, Refer ring Provider Active Edward Melo ALLERGY SPECIALIST, ALLERGY SPECIALIST-C Attending Provider Active Team Status: Inactive Member Role Status Dates Dr. Jseus Davila MD Primary Care Provider Active Dr. María Vance DO Attending Provider, Referring P rovider Active Team Status: Inactive Member Role Status Dates Dr. Jesus Davila MD Primary Care Provider Active Edward Melo ALLERGY SPECIALIST, ALLERGY SPECIALIST-C Attending Provider, Referring Pro vider Active Team Status: Inactive Member Role Status Dates Dr. Jesus Davila MD Primary Care Provider Active Dr. Brittnee Ling MD Attending Provider, Emergency Provider Active Market Development Director Relationship Specialty Start Date End Date Jesus Davila MD [address] [place] [address] PCP - General Internal Medicine 03/10/16 Mike Puente [address] [place] [address] Physician Cardiology 07/30/14 Catherine Alford MD [address] [place] [address] Consulting Infectious Diseases 09/21/14 María Vance I, DO [address] [place] [address] Consulting Nephrology 09/21/14 Natasha Tee, CHRISTOPHER Specialty Floor Coverer Apprentice General Surgery 07/01/18 Catherine Pompa, CHRISTOPHER [address] [place] [address] Adobe Flex Developer 07/12/22 Market Development Director Relationship Specialty Start Date End Date Jesus Davila MD [address] [place] [address] PCP - General Internal Medicine 03/10/16 Mike Puente [address] [place] [address] Physician Cardiology 07/30/14 Catherine Alford MD [address] [place] [address] Consulting Infectious Diseases 09/21/14 María Vance I, DO [address] [place], [place] 785001 Consulting Nephrology 09/21/14 Natasha Tee, CHRISTOPHER Specialty Floor Coverer Apprentice General Surgery 07/01/18 Catherine Pompa, CHRISTOPHER [address] [place] [address] Adobe Flex Developer 07/12/22 Market Development Director Relationship Specialty Start Date End Date Jesus Davila MD [address] [place] [address] PCP - General Internal Medicine 03/10/16 Mike Puente [address] [place] [address] Physician Cardiology 07/30/14 Catherine Alford MD [address] [place] [address] Consulting Infectious Diseases 09/21/14 María Vance I, DO [address] [place], [place] 464171 Consulting Nephrology 09/21/14 Natasha Tee, CHRISTOPHER Specialty Floor Coverer Apprentice General Surgery 07/01/18 Catherine Pompa, CHRISTOPHER [address] [place] [address] Adobe Flex Developer 07/12/22 Market Development Director Relationship Specialty Start Date End Date Jesus Davila MD [address] [place], [place] 582701 PCP - General Internal Medicine 03/10/16 Mike Puente [address] [place], [place] 876261 Physician Cardiology 07/30/14 Catherine Alford MD [address] [place] [address] Consulting Infectious Diseases 09/21/14 María Vance I, DO [address] [place], [place] [address] Consulting Nephrology 09/21/14 Natasha Tee RN Specialty Floor Coverer Apprentice General Surgery 07/01/18 Catherine Pompa, CHRISTOPHER [address] [place] [address] Adobe Flex Developer 07/12/22 Market Development Director Relationship Specialty Start Date End Date Jesus Davila MD [address] [place] [address] PCP - General Internal Medicine 03/10/16 Mike Puente [address] [place] [address] Physician Cardiology 07/30/14 Catherine Alford MD [address] [place] [address] Consulting Infectious Diseases 09/21/14 María Vance I, DO [address] [place] [address] Consulting Nephrology 09/21/14 Natasha Tee RN Specialty Floor Coverer Apprentice General Surgery 07/01/18 Catherine Pompa, RN [address] [place] [address] Adobe Flex Developer 07/12/22 Market Development Director Relationship Specialty Start Date End Date Jesus Davila MD [address] [place] [address] PCP - General Internal Medicine 03/10/16 Mike Puente [address] [place] [address] Physician Cardiology 07/30/14 Catherine Alford MD [address] [place] [address] Consulting Infectious Diseases 09/21/14 María Vance I, DO [address] [place] [address] Consulting Nephrology 09/21/14 Natasha Tee, CHRISTOPHER Specialty Floor Coverer Apprentice General Surgery 07/01/18 Catherine Pompa, CHRISTOPHER [address] [place] [address] Adobe Flex Developer 07/12/22 Market Development Director Relationship Specialty Start Date End Date Jesus Davila MD [address] [place] [address] PCP - General Internal Medicine 03/10/16 Mike Puente [address] [place] [address] Physician Cardiology 07/30/14 Catherine Alford MD [address] [place] [address] Consulting Infectious Diseases 09/21/14 María Vance I, DO [address] [place] [address] Consulting Nephrology 09/21/14 Natasha Tee RN Specialty Floor Coverer Apprentice General Surgery 07/01/18 Catherine Pompa, CHRISTOPHER [address] [place] [address] Adobe Flex Developer 07/12/22 Market Development Director Relationship Specialty Start Date End Date Jesus Davila MD [address] [place] [address] PCP - General Internal Medicine 03/10/16 Mike Puente [address] [place] [address] Physician Cardiology 07/30/14 Catherine Alford MD [address] [place] [address] Consulting Infectious Diseases 09/21/14 María Vance I, DO [address] [place], [place] 129071 Consulting Nephrology 09/21/14 Natasha Tee, CHRISTOPHER Specialty Floor Coverer Apprentice General Surgery 07/01/18 Catherine Pompa, CHRISTOPHER [address] [place] [address] Adobe Flex Developer 07/12/22 Market Development Director Relationship Specialty Start Date End Date Jesus Davila MD [address] [place] [address] PCP - General Internal Medicine 03/10/16 Mike Puente [address] [place] [address] Physician Cardiology 07/30/14 Catherine Alford MD [address] [place] [address] Consulting Infectious Diseases 09/21/14 María Vance I, DO [address] [place], [place] 760741 Consulting Nephrology 09/21/14 Natasha Tee, CHRISTOPHER Specialty Floor Coverer Apprentice General Surgery 07/01/18 Catherine Pompa, CHRISTOPHER [address] [place] [address] Adobe Flex Developer 07/12/22 Market Development Director Relationship Specialty Start Date End Date Jesus Davila MD [address] [place] [address] PCP - General Internal Medicine 03/10/16 Mike Puente [address] [place] [address] Physician Cardiology 07/30/14 Catherine Alford MD [address] [place] [address] Consulting Infectious Diseases 09/21/14 María Vance I, DO [address] [place], [place] 474081 Consulting Nephrology 09/21/14 Natasha Tee RN Specialty Floor Coverer Apprentice General Surgery 07/01/18 Catherine Pompa, RN [address] [place] [address] Adobe Flex Developer 07/12/22 Market Development Director Relationship Specialty Start Date End Date Jesus Davila MD [address] [place], [place] 423081 PCP - General Internal Medicine 03/10/16 Mike Puente [address] [place], [place] 468391 Physician Cardiology 07/30/14 Catherine Alford MD [address] [place] [address] Consulting Infectious Diseases 09/21/14 María Vance I, DO [address] [place] [address] Consulting Nephrology 09/21/14 Natasha Tee RN Specialty Floor Coverer Apprentice General Surgery 07/01/18 Catherine Pompa, CHRISTOPHER [address] [place] [address] Adobe Flex Developer 07/12/22 Market Development Director Relationship Specialty Start Date End Date Jesus Davila MD [address] [place] [address] PCP - General Internal Medicine 03/10/16 Mike Puente [address] [place], [place] 972791 Physician Cardiology 07/30/14 Catherine Alford MD [address] [place] [address] Consulting Infectious Diseases 09/21/14 María Vance I, DO [address] [place], [place] 325831 Consulting Nephrology 09/21/14 Natasha Tee RN Specialty Floor Coverer Apprentice General Surgery 07/01/18 Catherine Pompa, RN [address] [place] [address] Adobe Flex Developer 07/12/22 Market Development Director Relationship Specialty Start Date End Date Jesus Davila MD [address] [place] [address] PCP - General Internal Medicine 03/10/16 Mike Puente [address] [place] [address] Physician Cardiology 07/30/14 Catherine Alford MD [address] [place] [address] Consulting Infectious Diseases 09/21/14 María Vance I, DO [address] [place] [address] Consulting Nephrology 09/21/14 Natasha Tee, CHRISTOPHER Specialty Floor Coverer Apprentice General Surgery 07/01/18 Catherine Pompa, CHRISTOPHER [address] [place] [address] Adobe Flex Developer 07/12/22 Market Development Director Relationship Specialty Start Date End Date Jesus Davila MD [address] [place] [address] PCP - General Internal Medicine 03/10/16 Mike Puente [address] [place], [place] 786541 Physician Cardiology 07/30/14 Catherine Alford MD [address] [place], [place] 994511 Consulting Infectious Diseases 09/21/14 María Vance I, DO [address] [place] [address] Consulting Nephrology 09/21/14 Natasha Tee, CHRISTOPHER Specialty Floor Coverer Apprentice General Surgery 07/01/18 Catherine Pompa, CHRISTOPHER [address] [place] [address] Adobe Flex Developer 07/12/22 Market Development Director Relationship Specialty Start Date End Date Jesus Davila MD [address] [place] [address] [address] [place] 421291 PCP - General Internal Medicine 03/10/16 Mike Puente [address] [place], [place] 394691 Physician Cardiology 07/30/14 aCtherine Alford MD [address] [place], [place] 047981 Consulting Infectious Diseases 09/21/14 María Vance I, DO [address] [place], [place] 453061 Consulting Nephrology 09/21/14 Natasha Tee, CHRISTOPHER Specialty Floor Coverer Apprentice General Surgery 07/01/18 Catherine Pompa, CHRISTOPHER [address] [place] [address] Adobe Flex Developer 07/12/22 Market Development Director Relationship Specialty Start Date End Date Jesus Davila MD [address] [place] [address] PCP - General Internal Medicine 03/10/16 Mike Puente [address] [place] [address] Physician Cardiology 07/30/14 Catherine Alford MD [address] [place] [address] Consulting Infectious Diseases 09/21/14 María Vance I, DO [address] [place] [address] Consulting Nephrology 09/21/14 Natasha Tee, CHRISTOPHER Specialty Floor Coverer Apprentice General Surgery 07/01/18 Catherine Pompa RN [address] [place] [address] Adobe Flex Developer 07/12/22 Market Development Director Relationship Specialty Start Date End Date Jesus Davila MD [address] [place] [address] PCP - General Internal Medicine 03/10/16 Mike Puente [address] [place] [address] Physician Cardiology 07/30/14 Catherine Alford MD [address] [place], [place] 768181 Consulting Infectious Diseases 09/21/14 María Vance I, DO [address] [place], [place] 68867691 Consulting Nephrology 09/21/14 Natasha Tee, CHRISTOPHER Specialty Floor Coverer Apprentice General Surgery 07/01/18 Catherine Pompa, RN [address] [place] [address] Adobe Flex Developer 07/12/22 Market Development Director Relationship Specialty Start Date End Date Jesus Davila MD [address] [place], [place] 565191 PCP - General Internal Medicine 03/10/16 Mike Puente [address] [place], [place] 970801 Physician Cardiology 07/30/14 Catherine Alford MD [address] [place], [place] 894501 Consulting Infectious Diseases 09/21/14 María Vance I, DO [address] [place], [place] 555521 Consulting Nephrology 09/21/14 Natasha Tee RN Specialty Floor Coverer Apprentice General Surgery 07/01/18 Catherine Pompa, CHRISTOPHER [address] [place] [address] Adobe Flex Developer 07/12/22 Market Development Director Relationship Specialty Start Date End Date Jesus Davila MD [address] [place], [place] 101281 PCP - General Internal Medicine 03/10/16 Mike Puente [address] [place], [place] 068751 Physician Cardiology 07/30/14 Catherine Alford MD [address] [place], [place] 218641 Consulting Infectious Diseases 09/21/14 María Vance I, DO [address] [place], [place] 702801 Consulting Nephrology 09/21/14 Natasha Tee RN Specialty Floor Coverer Apprentice General Surgery 07/01/18 Catherine Pompa, RN [address] [place] [address] Adobe Flex Developer 07/12/22 Market Development Director Relationship Specialty Start Date End Date Jesus Davila MD [address] [facility] [place], [place] 915871 PCP - General Internal Medicine 03/10/16 Mike Peunte [address] [place], [place] 431661 Physician Cardiology 07/30/14 Catherine Alford MD [address] [place] [address] Consulting Infectious Diseases 09/21/14 María Vance I, DO [address] [place] [address] Consulting Nephrology 09/21/14 Natasha Tee RN Specialty Floor Coverer Apprentice General Surgery 07/01/18 Catherine Pompa, CHRISTOPHER [address] [place] [address] Adobe Flex Developer 07/12/22 Team Status: Inactive Member Role Status Dates Dr. Jesus Davila MD Primary Care Provider, Refer ring Provider Active Dr. Kaley Jiang MD Attending Provider Active Team Status: Inactive Member Role Status Dates Dr. Jesus Davila MD Primary Care Provider Active Dr. Scooter Lim DO Emergency Provider Active Market Development Director Relationship Specialty Start Date End Date Jesus Davila MD [address] [place] [address] PCP - General Internal Medicine 03/10/16 Mike Puente [address] [place] [address] Physician Cardiology 07/30/14 Catherine Alford MD [address] [place] [address] Consulting Infectious Diseases 09/21/14 María Vance I, DO [address] [place] [address] Consulting Nephrology 09/21/14 Natasha Tee RN Specialty Floor Coverer Apprentice General Surgery 07/01/18 Catherine Pompa RN [address] [place] [address] Adobe Flex Developer 07/12/22 Market Development Director Relationship Specialty Start Date End Date Jesus Davila MD [address] [place] [address] PCP - General Internal Medicine 03/10/16 Mike Puente [address] [place] [address] Physician Cardiology 07/30/14 Catherine Alford MD [address] [place], [place] 947871 Consulting Infectious Diseases 09/21/14 María Vance I, DO [address] [place], [place] 543101 Consulting Nephrology 09/21/14 Natasha Tee, CHRISTOPHER Specialty Floor Coverer Apprentice General Surgery 07/01/18 Catherine Pompa, RN [address] [place] [address] Adobe Flex Developer 07/12/22 Market Development Director Relationship Specialty Start Date End Date Jesus Dvaila MD [address] [facility], [place] 136031 PCP - General Internal Medicine 03/10/16 Mike Puente [address] [facility], [place] 061541 Physician Cardiology 07/30/14 Catherine Alford MD [address] [facility], [place] 137371 Consulting Infectious Diseases 09/21/14 María Vance I, DO [address] [facility] [place] [address] Consulting Nephrology 09/21/14 Natasha Tee RN Specialty Floor Coverer Apprentice General Surgery 07/01/18 Catherine Pompa, CHRISTOPHER [address] [place] [address] Adobe Flex Developer 07/12/22 Charlotte Jenkins, PT [address] [place] [id number] Telecommunications Field Technician Post Acute Care 01/24/24 Market Development Director Relationship Specialty Start Date End Date Jesus Davila MD [address] [facility], [place] [id number] PCP - General Internal Medicine 03/10/16 Mike Peunte [address] [facility], [place] 608691 Physician Cardiology 07/30/14 Catherine Alford MD [address] [place] [address] Consulting Infectious Diseases 09/21/14 María Vance I, DO [address] [place] [address] Consulting Nephrology 09/21/14 Natasha Tee RN Specialty Floor Coverer Apprentice General Surgery 07/01/18 Catherine Pompa, CHRISTOPHER [address] [place], [place] [id number] Adobe Flex Developer 07/12/22 Charlotte Jenkins, PT [address] [place], [place] [id number] Telecommunications Field Technician Post Acute Care 01/24/24 Market Development Director Relationship Specialty Start Date End Date Jesus Davila MD [address] [place] [address] PCP - General Internal Medicine 03/10/16 Mike Puente [address] [place] [address] Physician Cardiology 07/30/14 Catherine Alford MD [address] [place] [address] Consulting Infectious Diseases 09/21/14 María Vance I, DO [address] [place] [address] Consulting Nephrology 09/21/14 Natasha Tee RN Specialty Floor Coverer Apprentice General Surgery 07/01/18 Catherine Pompa RN [address] [place] [address] Adobe Flex Developer 07/12/22 Charlotte Jenkins, PT [address] [place] [address] Telecommunications Field Technician Post Acute Care 01/24/24 Market Development Director Relationship Specialty Start Date End Date Jesus Davila MD [address] [place] [address] PCP - General Internal Medicine 03/10/16 Mike Puente [address] [place] [address] Physician Cardiology 07/30/14 Catherine Alford MD [address] [place] [address] Consulting Infectious Diseases 09/21/14 María Vance I, DO [address] [place] [address] Consulting Nephrology 09/21/14 Natasha Tee, CHRISTOPHER Specialty Floor Coverer Apprentice General Surgery 07/01/18 Catherine Pompa, CHRISTOPHER [address] [place] [address] Adobe Flex Developer 07/12/22 Charlotte Jenkins, PT [address] [place] [address] Telecommunications Field Technician Post Acute Care 01/24/24 Market Development Director Relationship Specialty Start Date End Date Jesus Davila MD [address] [place] [address] PCP - General Internal Medicine 03/10/16 Mike Puente [address] [place] [address] Physician Cardiology 07/30/14 aCtherine Alford MD [address] [place] [address] Consulting Infectious Diseases 09/21/14 María Vance I, DO [address] [place] [address] Consulting Nephrology 09/21/14 Natasha Tee RN Specialty Floor Coverer Apprentice General Surgery 07/01/18 Catherine Pompa, CHRISTOPHER [address] [place], [place] [id number] Adobe Flex Developer 07/12/22 Charlotte Jenkins, PT [address] [place] [address] Telecommunications Field Technician Post Acute Care 01/24/24 Market Development Director Relationship Specialty Start Date End Date Jesus Davila MD [address] [facility] [place] [address] PCP - General Internal Medicine 03/10/16 Mike Puente [address] [place] [address] Physician Cardiology 07/30/14 Catherine Alford MD [address] [place] [address] Consulting Infectious Diseases 09/21/14 María Vance I, DO [address] [place] [address] Consulting Nephrology 09/21/14 Natasha Tee RN Specialty Floor Coverer Apprentice General Surgery 07/01/18 Catherine Pompa, CHRISTOPHER [address] [place] [address] Adobe Flex Developer 07/12/22 Charlotte Jenkins, PT [address] [place], [place] [id number] Telecommunications Field Technician Post Acute Care 01/24/24 Market Development Director Relationship Specialty Start Date End Date Jesus Davila MD [address] [place] [address] PCP - General Internal Medicine 03/10/16 Mike Puente [address] [place], [place] 670851 Physician Cardiology 07/30/14 Catherine Alford MD [address] [place], [place] 468851 Consulting Infectious Diseases 09/21/14 María Vance I, DO [address] [place] [address] Consulting Nephrology 09/21/14 Natasha Tee, CHRISTOPHER Specialty Floor Coverer Apprentice General Surgery 07/01/18 Catherine Pompa, RN [address] [place] [address] Adobe Flex Developer 07/12/22 Charlotte Jenkins, PT [address] [place] [address] Telecommunications Field Technician Post Acute Care 01/24/24 Market Development Director Relationship Specialty Start Date End Date Jesus Davila MD [address] [facility] [place] [address] PCP - General Internal Medicine 03/10/16 Mike Puente [address] [place] [address] Physician Cardiology 07/30/14 Catherine Alford MD [address] [place], [place] 403661 Consulting Infectious Diseases 09/21/14 María Vance I, DO [address] [place], [place] 0[address]81 Consulting Nephrology 09/21/14 Natasha Tee RN Specialty Floor Coverer Apprentice General Surgery 07/01/18 Catherine Pompa RN [address] [place], [place] 1685531 Adobe Flex Developer 07/12/22 Charlotte Jenkins, PT [address] [place], [place] [id number] Telecommunications Field Technician Post Acute Care 01/24/24 Market Development Director Relationship Specialty Start Date End Date Jesus Davila MD [address] [facility] [place] [address] PCP - General Internal Medicine 03/10/16 Mike Puente [address] [facility] [place] [address] Physician Cardiology 07/30/14 Catherine Alford MD [address] [place] [address] Consulting Infectious Diseases 09/21/14 María Vance I, DO [address] [place] [address] Consulting Nephrology 09/21/14 Natasha Tee RN Specialty Floor Coverer Apprentice General Surgery 07/01/18 Catherine Pompa RN [address] [place] [address] Adobe Flex Developer 07/12/22 Charlotte Jenkins, PT [address] [place], [place] [id number] Telecommunications Field Technician Post Acute Care 01/24/24 Market Development Director Relationship Specialty Start Date End Date Jesus Davila MD [address] [place] [address] PCP - General Internal Medicine 03/10/16 Mike Puente [address] [place], [place] 737341 Physician Cardiology 07/30/14 Catherine Alford MD [address] [place], [place] 776261 Consulting Infectious Diseases 09/21/14 María Vance I, DO [address] [place] [address] Consulting Nephrology 09/21/14 Natasha Tee, RN Specialty Floor Coverer Apprentice General Surgery 07/01/18 Catherine Pompa, RN [address] [place] [address] Adobe Flex Developer 07/12/22 Charlotte Jenkins, PT [address] [place] [address] Telecommunications Field Technician Post Acute Care 01/24/24 Market Development Director Relationship Specialty Start Date End Date Jesus Davila MD [address] [place] [address] PCP - General Internal Medicine 03/10/16 Mike Puente [address] [place], [place] 060831 Physician Cardiology 07/30/14 Catherine Alfrod MD [address] [place], [place] 485671 Consulting Infectious Diseases 09/21/14 María Vance I, DO [address] [place] [address] Consulting Nephrology 09/21/14 Natasha Tee RN Specialty Floor Coverer Apprentice General Surgery 07/01/18 Catherine Pompa, CHRISTOPHER [address] [place], [place] 3341031 Adobe Flex Developer 07/12/22 Charlotte Jenkins, PT [address] [place], [place] [id number] Telecommunications Field Technician Post Acute Care 01/24/24 Market Development Director Relationship Specialty Start Date End Date Jesus Davila MD [address] [place] [address] PCP - General Internal Medicine 03/10/16 Mike Puente [address] [place] [address] Physician Cardiology 07/30/14 Catherine Alford MD [address] [place] [address] Consulting Infectious Diseases 09/21/14 María Vance I, DO [address] [place] [address] Consulting Nephrology 09/21/14 Natasha Tee RN Specialty Floor Coverer Apprentice General Surgery 07/01/18 Catherine Pompa, CHRISTOPHER [address] [place] [address] Adobe Flex Developer 07/12/22 Charlotte Jenkins, PT [address] [place], [place] [id number] Telecommunications Field Technician Post Acute Care 01/24/24 Market Development Director Relationship Specialty Start Date End Date Jesus Davila MD [address] [place] [address] PCP - General Internal Medicine 03/10/16 Mike Puente [address] [place] [address] Physician Cardiology 07/30/14 Catherine Alford MD [address] [place] [address] Consulting Infectious Diseases 09/21/14 María Vance I, DO [address] [place] [address] Consulting Nephrology 09/21/14 Natasha eTe, CHRISTOPHER Specialty Floor Coverer Apprentice General Surgery 07/01/18 Catherine Pompa, RN [address] [place] [address] Adobe Flex Developer 07/12/22 Charlotte Jenkins, PT [address] [place] [address] Telecommunications Field Technician Post Acute Care 01/24/24 Market Development Director Relationship Specialty Start Date End Date Jesus Davila MD [address] [place] [address] PCP - General Internal Medicine 03/10/16 Mike Puente [address] [place], [place] 062311 Physician Cardiology 07/30/14 Catherine Alford MD [address] [place] [address] Consulting Infectious Diseases 09/21/14 María Vance I, DO [address] [place] [address] Consulting Nephrology 09/21/14 Natasha Tee RN Specialty Floor Coverer Apprentice General Surgery 07/01/18 Catherine Pompa, RN [address] [place], [place] 5386631 Adobe Flex Developer 07/12/22 Charlotte Jenkins, PT [address] [place], [place] [id number] Telecommunications Field Technician Post Acute Care 01/24/24 Market Development Director Relationship Specialty Start Date End Date Jesus Davila MD [address] [place], [place] 781831 PCP - General Internal Medicine 03/10/16 Mike Puente [address] [place], [place] 687681 Physician Cardiology 07/30/14 Catherine Alford MD [address] [facility] [place] [place] 232[address] Consulting Infectious Diseases 09/21/14 María Vance I, DO [address] [facility] [place] [address] Consulting Nephrology 09/21/14 Natasha Tee, CHRISTOPHER Specialty Floor Coverer Apprentice General Surgery 07/01/18 Catherine Pompa, CHRISTOPHER [address] [place], [place] 9761831 Adobe Flex Developer 07/12/22 Charlotte Jenkins, PT [address] [place], [place] 9554331 Telecommunications Field Technician Post Acute Care 01/24/24 Market Development Director Relationship Specialty Start Date End Date Jesus Davila MD [address] [place] [address] PCP - General Internal Medicine 03/10/16 Mike Puente [address] [place] [address] Physician Cardiology 07/30/14 Catherine Alford MD [address] [place] [address] Consulting Infectious Diseases 09/21/14 María Vance I, DO [address] [place], [place] 347511 Consulting Nephrology 09/21/14 Natasha Tee, CHRISTOPHER Specialty Floor Coverer Apprentice General Surgery 07/01/18 Catherine Pompa, CHRISTOPHER [address] [place] [id number] Adobe Flex Developer 07/12/22 Charlotte Jenkins, PT [address] [place] [address] Telecommunications Field Technician Post Acute Care 01/24/24 Market Development Director Relationship Specialty Start Date End Date Jesus Davila MD [address] [place] [address] PCP - General Internal Medicine 03/10/16 Mike Puente [address] [place] [address] Physician Cardiology 07/30/14 Catherine Alford MD [address] [place], [place] 100871 Consulting Infectious Diseases 09/21/14 María Vance I, DO [address] [place] [address] Consulting Nephrology 09/21/14 Natasha Tee RN Specialty Floor Coverer Apprentice General Surgery 07/01/18 Catherine Pompa, RN [address] [place], [place] 8781431 Adobe Flex Developer 07/12/22 BettyMedinaCelaya Charlotte, PT [address] [place], [place] 7692631 Telecommunications Field Technician Post Acute Care 01/24/24 Market Development Director Relationship Specialty Start Date End Date Jesus Davila MD [address] [facility], [place] 134291 PCP - General Internal Medicine 03/10/16 Mike Puente [address] [place], [place] 000191 Physician Cardiology 07/30/14 Catherine Alford MD [address] [place] [address] Consulting Infectious Diseases 09/21/14 María Vance I, DO [address] [place] [address] Consulting Nephrology 09/21/14 Natasha Tee RN Specialty Floor Coverer Apprentice General Surgery 07/01/18 Catherine Pompa, CHRISTOPHER [address] [place] [address] Adobe Flex Developer 07/12/22 Market Development Director Relationship Specialty Start Date End Date Jesus Davila MD [address] [facility] [place] [address] PCP - General Internal Medicine 03/10/16 Mike Puente [address] [place] [address] Physician Cardiology 07/30/14 Catherine Alford MD [address] [place], [place] 223871 Consulting Infectious Diseases 09/21/14 María Vance I, DO [address] [place] [address] Consulting Nephrology 09/21/14 Natasha Tee RN Specialty Floor Coverer Apprentice General Surgery 07/01/18 Catherine Pompa, CHRISTOPHER [address] [place] [address] Adobe Flex Developer 07/12/22 Market Development Director Relationship Specialty Start Date End Date Jesus Davila MD [address] [place] [address] PCP - General Internal Medicine 03/10/16 Mike Puente [address] [place] [address] Physician Cardiology 07/30/14 Catherine Alford MD [address] [place], [place] 193101 Consulting Infectious Diseases 09/21/14 María Vance I, DO [address] [place] [address] Consulting Nephrology 09/21/14 Natasha Tee, CHRISTOPHER Specialty Floor Coverer Apprentice General Surgery 07/01/18 Catherine Pompa, CHRISTOPHER [address] [place] [address] Adobe Flex Developer 07/12/22 Market Development Director Relationship Specialty Start Date End Date Jesus aDvila MD [address] [place] [address] PCP - General Internal Medicine 03/10/16 Mike Puente [address] [place] [address] Physician Cardiology 07/30/14 Catherine Alfrod MD [address] [place] [address] Consulting Infectious Diseases 09/21/14 María Vance I, DO [address] [place], [place] 685511 Consulting Nephrology 09/21/14 Natasha Tee RN Specialty Floor Coverer Apprentice General Surgery 07/01/18 Catherine Pompa RN [address] [place] [address] Adobe Flex Developer 07/12/22 Market Development Director Relationship Specialty Start Date End Date Jessu Davila MD [address] [place] [address] PCP - General Internal Medicine 03/10/16 Mike Puente [address] [place] [address] Physician Cardiology 07/30/14 Catherine Alford MD [address] [place], [place] 107671 Consulting Infectious Diseases 09/21/14 María Vance I, DO [address] [place], [place] 345591 Consulting Nephrology 09/21/14 Natasha Tee RN Specialty Floor Coverer Apprentice General Surgery 07/01/18 Catherine Pompa, CHRISTOPHER [address] [place] [address] Adobe Flex Developer 07/12/22 Market Development Director Relationship Specialty Start Date End Date Jesus Davila MD [address] [place], [place] 800331 PCP - General Internal Medicine 03/10/16 Mike Puente [address] [place], [place] 419011 Physician Cardiology 07/30/14 Catherine Alford MD [address] [place], [place] 316281 Consulting Infectious Diseases 09/21/14 María Vance I, DO [address] [place] [address] Consulting Nephrology 09/21/14 Natasha Tee RN Specialty Floor Coverer Apprentice General Surgery 07/01/18 Catherine Pompa, CHRISTOPHER [address] [place] [address] Adobe Flex Developer 07/12/22 Market Development Director Relationship Specialty Start Date End Date Jesus Davila MD [address] [place], [place] 424521 PCP - General Internal Medicine 03/10/16 Mike Peunte [address] [place], [place] 567481 Physician Cardiology 07/30/14 Catherine Alford MD [address] [place], [place] 347371 Consulting Infectious Diseases 09/21/14 María aVnce I, DO [address] [place], [place] 724061 Consulting Nephrology 09/21/14 Natasha Tee RN Specialty Floor Coverer Apprentice General Surgery 07/01/18 Catherine Pompa, RN [address] [place] [address] Adobe Flex Developer 07/12/22 Market Development Director Relationship Specialty Start Date End Date Jesus Davila MD [address] [place], [place] 446201 PCP - General Internal Medicine 03/10/16 Mike Puente [address] [place], [place] 994951 Physician Cardiology 07/30/14 Catherine Alford MD [address] [place] [address] Consulting Infectious Diseases 09/21/14 María Vance I, DO [address] [place] [address] Consulting Nephrology 09/21/14 Natasha Tee, CHRISTOPHER Specialty Floor Coverer Apprentice General Surgery 07/01/18 Catherine Pompa, CHRISTOPHER [address] [place] [address] Adobe Flex Developer 07/12/22 Market Development Director Relationship Specialty Start Date End Date Jesus Davila MD [address] [place], [place] [id number] PCP - General Internal Medicine 03/10/16 Mike Puente [address] [place], [place] 006561 Physician Cardiology 07/30/14 Catherine Alford MD [address] [place], [place] 714461 Consulting Infectious Diseases 09/21/14 María Vance I, DO [address] [place], [place] 645441 Consulting Nephrology 09/21/14 Natasha Tee RN Specialty Floor Coverer Apprentice General Surgery 07/01/18 Catherine Pompa, CHRISTOPHER [address] [place] [address] Adobe Flex Developer 07/12/22 Market Development Director Relationship Specialty Start Date End Date Jesus Davila MD [address] [place] [address] PCP - General Internal Medicine 03/10/16 Mike Puente [address] [place], [place] [id number] Physician Cardiology 07/30/14 Catherine Alford MD [address] [place], [place] [id number] Consulting Infectious Diseases 09/21/14 María Vance I, DO [address] [place] [address] Consulting Nephrology 09/21/14 Natasha Tee, CHRISTOPHER Specialty Floor Coverer Apprentice General Surgery 07/01/18 Catherine Pompa, CHRISTOPHER [address] [place] [address] Adobe Flex Developer 07/12/22 Market Development Director Relationship Specialty Start Date End Date Jesus Davila MD [address] [place] [address] PCP - General Internal Medicine 03/10/16 Mike Puente [address] [place] [address] Physician Cardiology 07/30/14 Catherine Alford MD [address] [place] [address] Consulting Infectious Diseases 09/21/14 María Vance I, DO [address] [place] 032521 Consulting Nephrology 09/21/14 Natasha Tee, CHRISTOPHER Specialty Floor Coverer Apprentice General Surgery 07/01/18 Catherine Pompa RN [address] [place] [address] Adobe Flex Developer 07/12/22 Market Development Director Relationship Specialty Start Date End Date Jesus Davila MD [address] [place] [address] PCP - General Internal Medicine 03/10/16 Mike Puente [address] [place] [address] Physician Cardiology 07/30/14 Catherine Alford MD [address] [place], [place] 189371 Consulting Infectious Diseases 09/21/14 María Vance I, DO [address] [place] [address] Consulting Nephrology 09/21/14 Natasha TeeCHRISTOPHER Specialty Floor Coverer Apprentice General Surgery 07/01/18 Catherine Pompa, CHRISTOPHER [address] [place] [address] Adobe Flex Developer 07/12/22 Market Development Director Relationship Specialty Start Date End Date Jesus Davila MD [address] [place], [place] 282441 PCP - General Internal Medicine 03/10/16 Mike Puente [address] [place], [place] 502961 Physician Cardiology 07/30/14 Catherine Alford MD [address] [place], [place] 081781 Consulting Infectious Diseases 09/21/14 María Vance I, DO [address] [place] [address] Consulting Nephrology 09/21/14 Natasha Tee RN Specialty Floor Coverer Apprentice General Surgery 07/01/18 Catherine Pompa, CHRISTOPHER [address] [place] [address] Adobe Flex Developer 07/12/22 Market Development Director Relationship Specialty Start Date End Date Jesus Davila MD [address] [place], [place] 68[address]81 PCP - General Internal Medicine 03/10/16 Mike Puente [address] [place], [place] 723561 Physician Cardiology 07/30/14 Catherine Alford MD [address] [place], [place] 720081 Consulting Infectious Diseases 09/21/14 María Vance I, DO [address] [place], [place] 3[address]41 Consulting Nephrology 09/21/14 Natasha Tee, CHRISTOPHER Specialty Floor Coverer Apprentice General Surgery 07/01/18 Catherine Pompa, RN [address] [place] [address] Adobe Flex Developer 07/12/22 Market Development Director Relationship Specialty Start Date End Date Jesus Davila MD [address] [facility], [place] 549841 PCP - General Internal Medicine 03/10/16 Mike Puente [address] [place], [place] [address]051 Physician Cardiology 07/30/14 Catherine Alford MD [address] [place] [address] Consulting Infectious Diseases 09/21/14 María Vance I, DO [address] [place] [address] Consulting Nephrology 09/21/14 Natasha Tee, CHRISTOPHER Specialty Floor Coverer Apprentice General Surgery 07/01/18 Shalini Ortez RN Adobe Flex Developer Internal Medicine 12/08/20 Catherine Pompa, CHRISTOPHER [address] [place] [address] Adobe Flex Developer 07/12/22 Market Development Director Relationship Specialty Start Date End Date Jesus Davila MD [address] [facility] [place] [address] PCP - General Internal Medicine 03/10/16 Mike Puente [address] [place] [address] Physician Cardiology 07/30/14 Catherine Alford MD [address] [place] [address] Consulting Infectious Diseases 09/21/14 María Vance I, DO [address] [place] [address] Consulting Nephrology 09/21/14 Natasha Tee RN Specialty Floor Coverer Apprentice General Surgery 07/01/18 Catherine Pompa RN [address] [place] [address] Adobe Flex Developer 07/12/22 Market Development Director Relationship Specialty Start Date End Date Jesus Davila MD [address] [place] [address] PCP - General Internal Medicine 03/10/16 Mike Puente [address] [place] [address] Physician Cardiology 07/30/14 Catherine Alford MD [address] [place] [address] Consulting Infectious Diseases 09/21/14 María Vance I, DO [address] [place], [place] 088991 Consulting Nephrology 09/21/14 Natasha Tee, CHRISTOPHER Specialty Floor Coverer Apprentice General Surgery 07/01/18 Catherine Pompa, CHRISTOPHER [address] [place] [address] Adobe Flex Developer 07/12/22 Market Development Director Relationship Specialty Start Date End Date Jesus Davila MD [address] [place] [address] PCP - General Internal Medicine 03/10/16 Mike Puente [address] [place] [address] Physician Cardiology 07/30/14 Catherine Alford MD [address] [place], [place] 702951 Consulting Infectious Diseases 09/21/14 María Vance I, DO [address] [place] [address] Consulting Nephrology 09/21/14 Natasha Tee, CHRISTOPHER Specialty Floor Coverer Apprentice General Surgery 07/01/18 Catherine Pompa, CHRISTOPHER [address] [place] [address] Adobe Flex Developer 07/12/22 Market Development Director Relationship Specialty Start Date End Date Jesus Davila MD [address] [place] [address] PCP - General Internal Medicine 03/10/16 Mike Puente [address] [place] [address] Physician Cardiology 07/30/14 Catherine Alford MD [address] [place], [place] 038261 Consulting Infectious Diseases 09/21/14 María Vance I, DO [address] [place], [place] 822961 Consulting Nephrology 09/21/14 Natasha Tee, CHRISTOPHER Specialty Floor Coverer Apprentice General Surgery 07/01/18 Catherine Pompa RN [address] [place] [address] Adobe Flex Developer 07/12/22 Market Development Director Relationship Specialty Start Date End Date Jesus Davila MD [address] [place] [address] PCP - General Internal Medicine 03/10/16 Mike Puente [address] [place], [place] 126051 Physician Cardiology 07/30/14 Catherine Alford MD [address] [place], [place] 786[address] Consulting Infectious Diseases 09/21/14 María Vance I, DO [address] [place] [address] Consulting Nephrology 09/21/14 Natasha Tee, CHRISTOPHER Specialty Floor Coverer Apprentice General Surgery 07/01/18 Jamee Weinstein, ELEVATOR INSTALLER.[employer] [address] [place], [place] 6767[address] Ui Ux Engineer Internal Medicine 08/18/24 Market Development Director Relationship Specialty Start Date End Date Jesus Davila MD [address] [place], [place] 322471 PCP - General Internal Medicine 03/10/16 Mike Puente MD [address] [place], [place] 149801 Physician Cardiology 07/30/14 Catherine Alford MD [address] [place] [address] Consulting Infectious Diseases 09/21/14 María Vance I, DO [address] [place] [address] Consulting Nephrology 09/21/14 Natasha Tee RN Specialty Floor Coverer Apprentice General Surgery 07/01/18 Jamee Weinstein, ELEVATOR INSTALLER.[employer] [address] [place], [place] 797971 Ui Ux Engineer Internal Medicine 08/18/24 Market Development Director Relationship Specialty Start Date End Date Jesus Davila MD [address] [place] [address] PCP - General Internal Medicine 03/10/16 Mike Puente MD [address] [place] [address] Physician Cardiology 07/30/14 Catherine Alford MD [address] [place] [address] Consulting Infectious Diseases 09/21/14 María Vance I, DO [address] [place] [address] Consulting Nephrology 09/21/14 Natasha Tee, CHRISTOPHER Specialty Floor Coverer Apprentice General Surgery 07/01/18 Jamee Weinstein, ELEVATOR INSTALLER.[employer] [address] [place], [place] 568021 Ui Ux Engineer Internal Medicine 08/18/24 Market Development Director Relationship Specialty Start Date End Date Jesus Davila MD [address] [place] [address] PCP - General Internal Medicine 03/10/16 Mike Puente MD [address] [place] [address] Physician Cardiology 07/30/14 Catherine Alford MD [address] [place] [address] Consulting Infectious Diseases 09/21/14 María Vance I, DO [address] [place] [address] Consulting Nephrology 09/21/14 Natasha Tee, CHRISTOPHER Specialty Floor Coverer Apprentice General Surgery 07/01/18 aJmee Weinstein, ELEVATOR INSTALLER.[employer] [address] [place] [address] Ui Ux Engineer Internal Medicine 08/18/24 Market Development Director Relationship Specialty Start Date End Date Jesus Davila MD [address] [place] [address] PCP - General Internal Medicine 03/10/16 Mike Puente MD [address] [place] [address] Physician Cardiology 07/30/14 Catherine Alford MD [address] [place] [address] Consulting Infectious Diseases 09/21/14 María Vance I, DO [address] [place] [address] Consulting Nephrology 09/21/14 Natasha Tee, CHRISTOPHER Specialty Floor Coverer Apprentice General Surgery 07/01/18 Jamee Weinstein, ELEVATOR INSTALLER.[employer] [address] [place] [address] Ui Ux Engineer Internal Medicine 08/18/24 Market Development Director Relationship Specialty Start Date End Date Jesus Davila MD [address] [place] 546021 PCP - General Internal Medicine 03/10/16 Mike Puente MD [address] [place] [address] Physician Cardiology 07/30/14 Catherine Alford MD [address] [place] [address] Consulting Infectious Diseases 09/21/14 María Vance I, DO [address] [place] [address] Consulting Nephrology 09/21/14 Natasha Tee, CHRISTOPHER Specialty Floor Coverer Apprentice General Surgery 07/01/18 Jamee Weinstein, ELEVATOR INSTALLER.[employer] [address] [place] 10[address]21 Ui Ux Engineer Internal Medicine 08/18/24 Market Development Director Relationship Specialty Start Date End Date Jesus Davila MD [address] [place] 638171 PCP - General Internal Medicine 03/10/16 Mike Puente MD [address] [place] [address] Physician Cardiology 07/30/14 Catherine Alford MD [address] [place] [address] Consulting Infectious Diseases 09/21/14 María Vance I, DO [address] [place] [address] Consulting Nephrology 09/21/14 Natasha Tee RN Specialty Floor Coverer Apprentice General Surgery 07/01/18 Jamee Weinstein, ELEVATOR INSTALLER.[facility] [address] [place] [address] Ui Ux Engineer Internal Medicine 08/18/24 Market Development Director Relationship Specialty Start Date End Date Jesus Davila MD [address] [place] [address] PCP - General Internal Medicine 03/10/16 Mike Puente MD [address] [place] [address] Physician Cardiology 07/30/14 Catherine Alford MD [address] [place] [address] Consulting Infectious Diseases 09/21/14 María Vance I, DO [address] [place] [address] Consulting Nephrology 09/21/14 Natasha Tee RN Specialty Floor Coverer Apprentice General Surgery 07/01/18 Jamee Weinstein, ELEVATOR INSTALLER.[employer] [address] [place] [address] Ui Ux Engineer Internal Medicine 08/18/24 Market Development Director Relationship Specialty Start Date End Date Jesus Davila MD [address] [place], [place] 325111 PCP - General Internal Medicine 03/10/16 Mike Puente MD [address] [place], [place] 288771 Physician Cardiology 07/30/14 Catherine Alford MD [address] [place] [address] Consulting Infectious Diseases 09/21/14 María Vance I, DO [address] [place] [address] Consulting Nephrology 09/21/14 Natasha Tee, CHRISTOPHER Specialty Floor Coverer Apprentice General Surgery 07/01/18 Jamee Weinstein, ELEVATOR INSTALLER.[employer] [address] [place] [address] Ui Ux Engineer Internal Medicine 08/18/24 Market Development Director Relationship Specialty Start Date End Date Jesus Davila MD [address] [place], [place] 282641 PCP - General Internal Medicine 03/10/16 Mike Puente MD [address] [place] [address] Physician Cardiology 07/30/14 Catherine Alford MD [address] [place] [address] Consulting Infectious Diseases 09/21/14 María Vance I, DO [address] [place] [address] Consulting Nephrology 09/21/14 Natasha Tee RN Specialty Floor Coverer Apprentice General Surgery 07/01/18 Jamee Weinstein, ELEVATOR INSTALLER.[employer] [address] [place], [place] 0[address]671 Ui Ux Engineer Internal Medicine 08/18/24 Market Development Director Relationship Specialty Start Date End Date Jesus Davila MD [address] [place] [address] PCP - General Internal Medicine 03/10/16 Mike Puente MD [address] [place], [place] 428531 Physician Cardiology 07/30/14 Catherine Alford MD [address] [place] [address] Consulting Infectious Diseases 09/21/14 María Vance I, DO [address] [place] [address] Consulting Nephrology 09/21/14 Natasha Tee, CHRISTOPHER Specialty Floor Coverer Apprentice General Surgery 07/01/18 Jamee Weinstein, ELEVATOR INSTALLER.[employer] [address] [place], [place] 6[address]991 Ui Ux Engineer Internal Medicine 08/18/24 Market Development Director Relationship Specialty Start Date End Date Jesus Davila MD [address] [place] [address] PCP - General Internal Medicine 03/10/16 Mike Puente MD [address] [place] [address] Physician Cardiology 07/30/14 Catherine Alford MD [address] [place] [address] Consulting Infectious Diseases 09/21/14 María Vance I, DO [address] [place] [address] Consulting Nephrology 09/21/14 Natasha Tee, CHRISTOPHER Specialty Floor Coverer Apprentice General Surgery 07/01/18 Jamee Weinstein, WILMAN.[employer] [address] [place] [address] Ui Ux Engineer Internal Medicine 08/18/24 Market Development Director Relationship Specialty Start Date End Date Jesus Davila MD [address] [place] [address] PCP - General Internal Medicine 03/10/16 Mike Puente MD [address] [place] [address] Physician Cardiology 07/30/14 Catherine Alford MD [address] [place] [address] Consulting Infectious Diseases 09/21/14 María Vance I, DO [address] [place] [address] Consulting Nephrology 09/21/14 Natasha Tee RN Specialty Floor Coverer Apprentice General Surgery 07/01/18 Jamee Weinstein, ELEVATOR INSTALLER.[employer] [address] [place] [address] Ui Ux Engineer Internal Medicine 08/18/24 Market Development Director Relationship Specialty Start Date End Date Jesus Davila MD [address] [place] [address] PCP - General Internal Medicine 03/10/16 Mike Puente MD [address] [place] [address] Physician Cardiology 07/30/14 Catherine Alford MD [address] [place] [address] Consulting Infectious Diseases 09/21/14 María Vance I, DO [address] [place] [address] Consulting Nephrology 09/21/14 Natasha Tee, CHRISTOPHER Specialty Floor Coverer Apprentice General Surgery 07/01/18 Jamee Weinstein, ELEVATOR INSTALLER.[employer] [address] [place] [address] Ui Ux Engineer Internal Medicine 08/18/24 Market Development Director Relationship Specialty Start Date End Date Jesus Davila MD [address] [place] [address] PCP - General Internal Medicine 03/10/16 Mike Puente MD [address] [place] [address] Physician Cardiology 07/30/14 Catherine Alford MD [address] [place] [address] Consulting Infectious Diseases 09/21/14 María Vance I, DO [address] [place] [address] Consulting Nephrology 09/21/14 Natasha Tee RN Specialty Floor Coverer Apprentice General Surgery 07/01/18 Jamee Weinstein, ELEVATOR INSTALLER.[employer] [address] [place] [address] Ui Ux Engineer Internal Medicine 08/18/24 Market Development Director Relationship Specialty Start Date End Date Jesus Davila MD [address] [place] [address] PCP - General Internal Medicine 03/10/16 Mike Puente MD [address] [place] [address] Physician Cardiology 07/30/14 Catherine Alford MD [address] [place] [address] Consulting Infectious Diseases 09/21/14 María Vance I, DO [address] [place] [address] Consulting Nephrology 09/21/14 Natasha Tee RN Specialty Floor Coverer Apprentice General Surgery 07/01/18 Jamee Weinstein, ELEVATOR INSTALLER.[employer] [address] [place], [place] [address]12381 Ui Ux Engineer Internal Medicine 08/18/24 Market Development Director Relationship Specialty Start Date End Date Jesus Davila MD [address] [place], [place] 380441 PCP - General Internal Medicine 03/10/16 Mike Puente MD [address] [place], [place] 236[address] Physician Cardiology 07/30/14 Catherine Alford MD [address] [place] [address] Consulting Infectious Diseases 09/21/14 María Vance I, DO [address] [place] [address] Consulting Nephrology 09/21/14 Natasha Tee, CHRISTOPHER Specialty Floor Coverer Apprentice General Surgery 07/01/18 Jamee Weinstein, ELEVATOR INSTALLER.[employer] [address] [place] [address] Ui Ux Engineer Internal Medicine 08/18/24 Team Status: Active Member Role/Relationship Status Dates Dr. Jesus Davila MD Primary Care Provider Active Team Status: Inactive Member Role/Relationship Status Dates Dr. Jesus Davila MD Primary Care Provider Active Start: March 16, 2025 End: March 17, 2025 Dr. Scooter Lim DO Emergency Provider Active Start: March 16, 2025 End: March 17, 2025 Market Development Director Relationship Specialty Start Date End Date Jesus Davila MD [address] [place], [place] [address]81 PCP - General Internal Medicine 03/10/16 Mike Puente MD [address] [place] [address] Physician Cardiology 07/30/14 Catherine Alford MD [address] [place] [address] Consulting Infectious Diseases 09/21/14 María Vance I, DO [address] [place] [address] Consulting Nephrology 09/21/14 Natasha Tee, CHRISTOPHER Specialty Floor Coverer Apprentice General Surgery 07/01/18 Jamee Weinstein, ELEVATOR INSTALLER.[facility] [address] [place] [address] Ui Ux Engineer Internal Medicine 08/18/24 Market Development Director Relationship Specialty Start Date End Date Jesus Davila MD [address] [place] [address] PCP - General Internal Medicine 03/10/16 Mike Puente MD [address] [place] [address] Physician Cardiology 07/30/14 Catherine Alford MD [address] [place] [address] Consulting Infectious Diseases 09/21/14 María Vance I, DO [address] [place] [address] Consulting Nephrology 09/21/14 Natasha Tee RN Specialty Floor Coverer Apprentice General Surgery 07/01/18 Jamee Weinstein, ELEVATOR INSTALLER.[employer] [address] [place], [place] 488[address] [facility] Internal Medicine 08/18/24 Market Development Director Relationship Specialty Start Date End Date Jesus Davila MD [address] [facility] [place] [address]21 PCP - General Internal Medicine 03/10/16 Mike Puente MD [address] [place], [place] [address] Physician Cardiology 07/30/14 Catherine Alford MD [address] [place] [address] Consulting Infectious Diseases 09/21/14 María Vance I, DO [address] [place], [place] 1264[address] Consulting Nephrology 09/21/14 Natasha Tee RN Specialty Floor Coverer Apprentice General Surgery 07/01/18 Jamee Weinstein, ELEVATOR INSTALLER.[employer] [address] [place], [place] [address]70[address] [facility] Internal [facility] 08/18/24 Team Status: Inactive Member Role/Relationship Status Dates Dr. Jesus Davila MD Primary Care Provider Active Start: March 16, 2025 End: March 17, 2025 Dr. Scooter Lim DO Attending Provider Active Start: March 16, 2025 End: March 17, 2025 Dr. Scooter Lim DO Emergency Provider Active Start: March 16, 2025 End: March 17, 2025 Team Status: Inactive Member Role/Relationship Status Dates Dr. Jesus Davila MD Primary Care Provider Active Start: April 30, 2025 End: April 30, 2025 Dr. Jesus Davila MD Referring Provider Active Start: April 30, 2025 End: April 30, 2025 Edward Melo ALLERGY SPECIALIST, ALLERGY SPECIALIST-C Attending Provider Active S tart: April 30, 2025 End: April 30, 2025 Goals (unrecognized section and content) Goals may be documented in a n alternate sectionGoals may be documented in an alternate sectionGoals may be documented in an alternate sectionGoals may be documented in an alternate sectionGoals may be documented in an alternate sectionGoals may be documented in an alternate sectionGoals may be documented in an alternate sectionGoals may be documented in an alternate sectionGoals may be documented in an alternate sectionGoals may be documented in an alternate sectionGoals may be documented in an alternate sectionGoals may be documented in an alternate sectionGoals may be documented in an alternate sectionGoals may be documented in an alternate sectionGoals may be documented in an alternate sectionGoals may be documented in an alternate sectionGoals may be documented in an alternate section FOR RECORDS PERTAINING TO PATIENTS WHO ARE OR HAVE BEEN ENROLLED IN A CHEMICAL DEPENDENCY/SUBSTANCEABUSE PROGRAM, SOME INFORMATION MAY BE OMITTED. This clinical summary was aggregated from multiple sources. Caution should be exercised in using it in the provision of clinical care. This summary normalizes information from multiple sources, and as a consequence, information in this document may materially change the coding, format and clinical context of patient data. In addition, data may be omitted in some cases. CLINICAL DECISIONS SHOULD BE BASED ON THE PRIMARY CLINICAL RECORDS. [facility] [employer] [facility]. provides no warranty or guarantee of the accuracy or completeness of information in this document.
--- NOTE | 2025-05-04 17:28 | STRESSREP ---
Stress Test Report Pharmacologic myocardial perfusion stress test. 80-year-old lady for preop surgical evaluation . Resting EKG demonstrates sinus rhythm with a rate of 75 bpm. Resting blood pressure is 142/70 mmHg. 0.4 mg of regadenoson was infused per usual protocol followed by rapid intravenous saline flush injection. Continuous EKG monitoring was performed. The maximum heart rate was 83 bpm which was 58% of max impacted heart rate the maximum workload was 1 metabolic equivalent. At rest there were no ST or T wave changes noted to suggest ischemia and at peak infusion nonspecific ST changes were noted which did not meet the criteria for ischemia. No clinical angina is noted. The final blood pressure was 124/62 mmHg. Myocardial perfusion protocol. 14.1 mCi of technetium 99m sestamibi was injected at rest. 0.4 mg of regadenoson was infused per usual protocol. At peak infusion 44.7 mCi of technetium 99m sestamibi was injected stress images were obtained stress and rest images were reconstructed and compared in the short axis vertical long and horizontal long axis. Perfusion SPECT analysis: Review of the stress images demonstrate normal uptake of tracer noted in all areas of the myocardium. The resting images similar demonstrated normal uptake of tracer noted in all areas of the myocardium. No areas of reversibility are noted to suggest ischemia and no previous infarct is noted. Conclusion: Normal pharmacologic myocardial perfusion stress test.
== END | disposition home or self-care (01) ==
PROVIDERS: PCP Internal Medicine; Referring Provider Nurse Practitioner Family; Visit Provider Nurse Practitioner Family
DX: I25.10 Atherosclerotic heart disease of native coronary artery without angina pectoris (principal)
CPT/HCPCS: 78452; 82962; 93017; 93306; A9500; Q9957; A4216; C8929; J2785